=== PATIENT | female | born 1940 | race Caucasian/White ===

== ENCOUNTER 2018-02-14 16:04 | Inpatient (IN) | payer MEDICARE, BC, SELFPAY ==
[2018-02-14] VITALS (9 sets, daily range): BP systolic 128–184; BP diastolic 66–95; PULSE 68–99; RESP 14–18; TEMP 36.9–37.1; O2SAT 92–97; BMI 33.8; BMI 32.9
--- NOTE | 2018-02-14 16:20 | NURSING ---
NO OLD EKGS
--- NOTE | 2018-02-14 16:24 | NURSING ---
NO LW OR POA
--- NOTE | 2018-02-14 16:25 | NURSING ---
NO OLD EKGS
--- NOTE | 2018-02-14 16:29 | RAD_ITS ---
STUDY: X-RAY CHEST REASON FOR EXAM: Female, 78 years old. Palpitation TECHNIQUE: Frontal and lateral views of the chest. COMPARISON: None. FINDINGS: Calcified gallstone. The lungs are clear and expanded. There is no demonstrated pleural abnormality. Normal size heart. Normal mediastinum and cookie. Normal visualized pulmonary arteries. Normal visualized aortic arch and descending thoracic aorta. Normal visualized thoracic spine. Normal visualized ribs, clavicles, and shoulders. There is no demonstrated abnormality of the visualized soft tissue structures of the upper abdomen. IMPRESSION: Probable gallstones otherwise Normal x-ray examination of the chest. Electronically Signed: Pramod Beal MD at 17:54 EDT , Service support , RAD/Chest PA and Lateral
--- NOTE | 2018-02-14 16:29 | EKG12_ITS ---
Test Reason : PALPS Blood Pressure : / mmHG Vent. Rate : 101 BPM Atrial Rate : 113 BPM P-R Int : 000 ms QRS Dur : 158 ms QT Int : 358 ms P-R-T Axes : 000 -45 137 degrees QTc Int : 464 ms Atrial fibrillation Left axis deviation Left bundle branch block Abnormal ECG Confirmed by AIDEN GERBER, MARITZA ([id number]), staff editor ALEXEI SINGER ([id number] on 02/17/2018 2:43:26 PM Referred By: ISA Confirmed By:MARITZA WOLFE MD
--- NOTE | 2018-02-14 16:34 | ED.DCSUM_ITS ---
- ER Visit Summary Date of Service: 02/14/18 Chief Complaint: Palpitations History of Present Illness: The patient is a 78 F reports a weird feeling in her chest today. She states it almost feels like an anxiety attack. She does not feel short of breath, lightheaded, or near syncope. Patient does follow with a contact center director in [place]. She states she was initially sent to him because of a low heart rate noted by her primary care physician. It was felt that this was secondary to incorrect thyroid medication dosing and after medication adjustment her heart rate improved. She denies any known history of arrhythmia. She does have a known left bundle branch block. She states her last stress test was 2 or 3 years ago when she has never had a heart cath. Physical Examination: Blood pressure is 184/95, temperature 98.8, heart rate 71 , respiratory rate 14, pulse ox 97% on room air. Patient sitting upright in bed no acute distress. She is alert and talkative. Head neck examination is unremarkable. Heart is irregular. Lung sounds are clear. Abdomen is soft nontender. Lower extremity examination reveals no significant edema. She has strong distal pulses. Test Results: EKG is A. fib with a left bundle branch block. There is no acute ST change. Rate is 101. Chest x-ray shows chronic changes with no acute findings. CBC is unremarkable. Chemistry studies significant for potassium of 3.4, BUN 42, creatinine 1.32. Troponin is 0.03. TSH is less than 0.01. Emergency Department Course and Treatment: Patient has been resting comfortably his had no further symptoms here. Her A. fib may certainly be caused by her hyperthyroid state. I discussed the case with Dr. Frye, on-call for cardiology. Because the patient had previously been seen for low heart rates down to 30 when she was assumed to be hypothyroid, he did recommend observation overnight so that of rate controlling agents need to be started she could do this in a controlled environment. She will be given a dose of Lovenox now. Her heart rate is currently in the 80s and 90s. Treatment Plan: [] Disposition: Admit Impression: 1. New onset A. fib 2. Hyperthyroid This note was generated with [employer] software. It may contain incorrect words, spelling, and punctuation that were not noted in review of the chart prior to signing ED Disposition - Plan for ED Patient: Chief Complaint: Palpitations
[2018-02-14] MEDS: 0.9% Normal Saline 1,000 ML 150 ML IV ×2 (16:38→23:02)
[2018-02-14 16:47] LABS: Absolute Lymphocyte Count 2.04 X10^3/ul (0.83-4.51); Absolute Neutrophil Count 4.6 X10^3/uL (2.0-7.7); Basophil# 0.01 X10^3/uL; Basophil% 0.1 % (0-1); Eosinophil# 0.09 X10^3/uL; Eosinophils% 1.2 % (0-5); Hemoglobin 12.6 g/dl (12.0-15.0); Lymphocyte # 2.04 X10^3/ul (4.0); Lymphocyte % 27.7 % (19-41); Mean Corp Hgb Conc 32.3 g/gl (32-36); Mean Corpuscular Hgb 30.8 pg (27.0-32.0); Mean Corpuscular Volume 95.4 fL (81-99); Mean Platelet Vol. 9.8 fl (6.2-12.0); Monocyte# 0.58 X10^3/uL; Monocyte% 7.9 % (0-10); Neutrophil # 4.62 X10^3/uL (2.7-7.7); Neutrophil % 62.8 % (47-70); Platelet Count 234 K/mm3 (150-450); RBC Distribution Width CV 13.6 % (11.6-14.6); Red Blood Count 4.09 M/mm3 (4.2-5.4); White Blood Count 7.4 K/mm3 (4.4-11.0)
[2018-02-14 16:54] LABS: POSITIVE COUNT NO; POSITIVE DIFFERENTIAL NO; POSITIVE MORPHOLOGY NO
[2018-02-14 17:04] LABS: Anion Gap 9 (5-15); BUN 42 mg/dL (7-18); BUN/Creat Ratio 31.8 RATIO (10-20); Calcium,Total 10.1 mg/dL (8.5-10.1); Chloride 106 mmol/L (98-107); Creatinine, Serum 1.32 mg/dL (0.55-1.02); EST Glomerular Filtration Rate 42 mL/min (>60); Est Glom Filt Rate - Afr Amer 50 mL/min (>60); Estimated Creatinine Clearance 28.23 ml/min; Glucose 102 mg/dL (74-106); Potassium 3.4 mmol/L (3.5-5.1); Sodium Level 142 mmol/L (136-145); Thyroid Stim Hormone (TSH) < 0.01 uIU/mL (0.358-3.74)
[2018-02-14] MEDS: Enoxaparin 80 MG/0.8 ML Syringe SC (19:19)
[2018-02-14] MEDS: Carvedilol 3.125 MG TABLET PO (23:01)
[2018-02-14] MEDS: hydrALAZINE 25 MG Tablet PO (23:01)
--- NOTE | 2018-02-14 23:32 | PCM.HP.STD ---
Problem List (1) New onset a-fib Status: Acute (2) Hyperthyroidism Status: Acute (3) HTN (hypertension) Status: Chronic History of Present Illness Date of Admission: 02/14/18 Chief Complaint: New onset afib The patient is a 78 year old female w/ h/o left bundle branch block, hypothyroid, and HTN admitted for new onset afib. She was evaluated several months ago for bradycardia by her PCP who referred her to cards. Cards increased her levothyroxine from 125mcg PO Qday to 150mcg PO Qday. She was re-evaluated by cards and at that time of that evaluation, her heart rate normalized. She has been taking the higher dose for the last few months and she noted for the first time this AM, she had palpitation. Nothing made her palpitation better or worse. Her palpitation was constant and it was not associated with any other symptoms. No chest pain. No diaphoresis. The palpitation was mild to moderate that it concerned her and she went to the ED for further workup. She had a stress test in the last 2-3 years but never a heart cath. Past Medical History Past Medical History (Chronic Problems): Chronic Problems HTN (hypertension) (Chronic) Allergies benazepril [From Lotensin] Allergy (Verified 02/14/18 16:08) Unknown meperidine [From Demerol] Allergy (Verified 02/14/18 16:08) Unknown propoxyphene [From Darvon] Allergy (Verified 02/14/18 16:08) Unknown spironolactone Allergy (Verified 02/14/18 16:08) Unknown PCN Allergy (Uncoded 02/14/18 16:08) Hives Home Medications: Ambulatory Orders Medication Instructions Recorded Amlodipine [Norvasc] 10 mg PO DAILY 02/14/18 Calcitriol [Rocaltrol] 0.25 mcg PO DAILY 02/14/18 Cholecalciferol (Vitamin D3) 2,000 unit PO DAILY 02/14/18 [Vitamin D3] Furosemide 40 mg PO BID 02/14/18 Glimepiride 1 mg PO DAILY 02/14/18 Levothyroxine [Synthroid] 150 mcg PO DAILY 02/14/18 Pravastatin [Pravachol] 20 mg PO DAILY 02/14/18 hydrALAZINE [Apresoline] 25 mg PO TID 02/14/18 Surgical History: no surgical history Psychiatric History: No pertinent psych hx 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 Denies: Chest Pain Respiratory: Denies: Cough, Shortness of breath at rest, Sputum production Gastrointestinal: Denies: Abdominal Pain, Nausea, Vomiting Genitourinary: Denies: Dysuria Musculoskeletal: Denies: Joint Pain, Joint Tenderness Skin: Denies: Rash, Wounds Neurological: Denies: Numbness, Tingling, Focal weakness Psychiatric: Denies: Anxiety, Depression, Homicidal Ideations, Suicidal Ideations Hematologic/ Lymphatic: Denies: Easy Bruising, Easy Bleeding VTE Information - Inpt Only VTE Present on Admission: No VTE Mechan Device Prophylaxis: SCD's VTE Pharm Prophylaxis ordered?: Yes Patient Problems: Active and Suspected Problems New onset a-fib (Acute) Hyperthyroidism (Acute) - Physical Exam General: Alert, Oriented x3, Cooperative HEENT: Atraumatic, PERRLA, EOMI, Normocephalic Neck: Supple, No JVD, Negative Carotid Bruits Lungs: Clear to auscultation, Normal air movement Cardiovascular: No murmurs, Irregular Rate Abdomen: Bowel Sounds Present, Soft, Non Tender Extremities: No edema, Capillary Refill Less than 3 Seconds Skin: No rashes, No breakdown Musculoskeletal: No Tenderness to Palpation of Joints or Extremities Neurological: Cranial nerves II-XII grossly intact Psych/Mental Status: Normal Affect, Appropriate Vital Signs Temp Pulse Resp BP Pulse Ox 98.4 F 72 16 143/73 H 94 02/14/18 21:43 02/14/18 23:01 02/14/18 21:43 02/14/18 23:01 02/14/18 21:43 Oxygen Delivery Method Room Air Weight: 81.7 kg Body Mass Index (BMI) 32.9 Laboratory Tests Past 24 Hrs 02/14/18 22:10 Troponin I 0.059 H Assessment/Plan Active and Suspected Problems New onset a-fib (Acute) Hyperthyroidism (Acute) 78 year old female w/ h/o left bundle branch block, hypothyroid, and HTN admitted for new onset afib. 1) New-onset afib: Probably secondary to hyperthyroid. Will target rate < 110. Cautious with rate controlling drugs given h/o bradycardia. Will start low dose coreg. Hydration. Will get serial trops and ECHO in AM. Anticoagulate with lovenox. Consulted cards. Discussed with cards. Monitor. 2) Hyperthyroid: Probably secondary to levothyroxine. Will hold dose. Monitor. 3) HTN: Resume home meds. Monitor. 4) CKD III: Unclear baseline Cr. Hydration. Supportive care. 5) Prophylaxis: Lovenox.
[2018-02-15] VITALS (14 sets, daily range): BP systolic 123–158; BP diastolic 65–82; PULSE 45–86; RESP 15–16; TEMP 36.4–36.8; O2SAT 94–98
[2018-02-15 04:57] LABS: BNP,B-Type NATRIURETIC PEPTIDE 440.7 pg/mL (0-100)
[2018-02-15 05:10] LABS: ALB/GLOB Ratio 0.9 RATIO (0.9-2.4); AST(SGOT) 21 U/L (15-37); Alanine Aminotransfer ALT/SGPT 24 U/L (13-56); Albumin, Serum 2.9 g/dL (3.2-5.0); Alkaline Phosphatase 60 U/L (45-117); Anion Gap 8 (5-15); BUN 32 mg/dL (7-18); Calcium,Total 8.6 mg/dL (8.5-10.1); Chloride 113 mmol/L (98-107); Cholesterol 118 mg/dL (200); EST Glomerular Filtration Rate 57 mL/min (>60); Est Glom Filt Rate - Afr Amer 69 mL/min (>60); Estimated Creatinine Clearance 37.26 ml/min; Globulin 3.3 g/dL (2.2-4.2); Glucose 133 mg/dL (74-106); High Density Lipoprotein 49 mg/dL; Potassium 3.3 mmol/L (3.5-5.1); Protein, Total 6.2 g/dL (6.4-8.2); Sodium Level 147 mmol/L (136-145); Thyroid Stim Hormone (TSH) < 0.01 uIU/mL (0.358-3.74); Triglycerides 74 mg/dL; Very Low Density Lipoprotein 15 mg/dL (5-40)
--- NOTE | 2018-02-15 05:10 | RAD_ITS ---
STUDY: X-RAY CHEST REASON FOR EXAM: Female, 78 years old. Shortness of breath TECHNIQUE: Frontal and lateral views of the chest. COMPARISON: February 14, 2018 FINDINGS: The lungs are clear and expanded. There is no demonstrated pleural abnormality. Normal size heart. Normal mediastinum and cookie. Normal visualized pulmonary arteries. Normal visualized aortic arch and descending thoracic aorta. Normal visualized thoracic spine. Normal visualized ribs, clavicles, and shoulders. There is no demonstrated abnormality of the visualized soft tissue structures of the upper abdomen. RAD/Chest PA and Lateral IMPRESSION: Normal x-ray examination of the chest. Electronically Signed: Pramod Beal MD at 23:56 EDT , Service support ,
[2018-02-15] MEDS: hydrALAZINE 25 MG Tablet PO ×3 (05:25→21:07)
[2018-02-15] MEDS: 0.9% Normal Saline 1,000 ML 150 ML IV (05:27)
--- NOTE | 2018-02-15 05:55 | ECHOD_ITS ---
Reason For Study: Afib Procedure This was a 2D Doppler, Color Flow transthoracic echocardiogram. The exam was of fair technical quality due to diminished acoustic windows. The study was technically difficult. Exam performed portable in patient room. Left Ventricle Normal LV size. Left ventricular systolic function is normal. The estimated ejection fraction is 65 %. There is evidence of diastolic dysfunction. No regional wall motion abnormalities noted. Right Ventricle Normal RV size. Normal systolic function. Atria The left atrium is mildly enlarged. Normal right atrium. No doppler evidence for ASD. Mitral Valve There is no mitral annular calcification. Mild diffuse mitral valve thickening. Mild (1+) mitral valve insufficiency. Tricuspid Valve Normal tricuspid valve. Mild tricuspid valve insufficiency. Unable to estimate RV systolic pressure/pulmonary artery pressure due to technically difficult study. Aortic Valve Trisinus/trileaflet aortic valve. Moderate focal aortic valve calcification. Mild aortic stenosis. Pulmonic Valve The pulmonic valve is not well visualized. Great Vessels Normal sized aortic root. Pericardium/Pleural No pericardial effusion. MMode/2D Measurements & Calculations LVIDd: 3.8 cm IVSd: 1.6 cm LVOT diam: 2.0 cm LVIDs: 2.5 cm LVPWd: 1.3 cm LVOT area: 3.1 cm2 RVDd: 3.6 cm FS: 34.6 % Ao root diam: 2.8 cm LAV(MOD-bp): 88.6 ml LA A4 area: 27.6 cm2 LA dimension: 4.5 cm LAV(MOD-bp) Indexed: 48.6 ml/m2 LAV(MOD-sp2): 76.0 ml LAV(MOD-sp4): 100.3 ml RA A4 area: 11.7 cm2 Time Measurements MV dec time: 0.34 sec Doppler Measurements & Calculations MV E max jose: 99.7 cm/sec Lat Peak E' Jose: 8.4 cm/sec Med Peak E' Jose: 4.9 cm/sec MV A max jose: 130.3 cm/sec E/E' lat: 11.9 E/E' med: 20.3 MV E/A: 0.77 MV V2 max: 161.3 cm/sec MV P1/2t max jose: 115.4 cm/sec Ao V2 max: 243.2 cm/sec MV max P.4 mmHg MV P1/2t: 111.0 msec Ao max P.7 mmHg MV V2 mean: 84.2 cm/sec MV dec slope: 304.5 cm/sec2 Ao V2 mean: 158.3 cm/sec MV mean P.4 mmHg MVA(P1/2t): 2.0 cm2 Ao mean P.3 mmHg MV V2 VTI: 48.0 cm Ao V2 VTI: 51.3 cm MVA(VTI): 2.1 cm2 STEVE(I,D): 2.0 cm2 STEVE(V,D): 1.7 cm2 LV V1 max: 136.5 cm/sec SV(LVOT): 100.1 ml PA V2 max: 117.7 cm/sec LV V1 max P.5 mmHg LV V1 mean P.7 mmHg LV V1 mean: 90.0 cm/sec LV V1 VTI: 32.5 cm Interpretation Summary The study was technically difficult. Left ventricular systolic function is normal. The estimated ejection fraction is 65 %. The left atrium is mildly enlarged. Mild diffuse mitral valve thickening. Mild (1+) mitral valve insufficiency. Mild tricuspid valve insufficiency. Mild aortic stenosis. Unable to estimate RV systolic pressure/pulmonary artery pressure due to technically difficult study. There is evidence of diastolic dysfunction. Ordering Physician: Homar Read Performed By: Twan Mccall RCS
[2018-02-15] MEDS: amLODIPine 10 MG Tablet PO (10:07)
[2018-02-15] MEDS: Carvedilol 3.125 MG TABLET PO ×2 (10:07→21:07)
[2018-02-15] MEDS: Aspirin 81 MG TAB.CHEW PO (10:46)
[2018-02-15] MEDS: Glimepiride 1 MG Tablet PO (10:47)
[2018-02-15] MEDS: Calcitriol 0.25 MCG Capsule PO (10:47)
[2018-02-15] MEDS: Enoxaparin 80 MG/0.8 ML Syringe SC ×2 (10:47→21:07)
[2018-02-15 11:11] LABS: Free T3 2.3 pg/mL (2.18-3.98); T4 Free Direct 1.55 ng/dL (0.76-1.46)
--- NOTE | 2018-02-15 12:37 | EKG12_ITS ---
Test Reason : RHYTHM Blood Pressure : / mmHG Vent. Rate : 047 BPM Atrial Rate : 047 BPM P-R Int : 164 ms QRS Dur : 170 ms QT Int : 488 ms P-R-T Axes : 008 -29 137 degrees QTc Int : 431 ms Sinus bradycardia with Premature supraventricular complexes Left bundle branch block Abnormal ECG When compared with ECG of 14-FEB-2018 16:19, MANUAL COMPARISON REQUIRED, DATA IS UNCONFIRMED Confirmed by COLE GERBER, DIPESH ([id number]), editorial manager ALEXEI SINGER ([id number]) on 02/17/2018 3:22:37 PM Referred By: GABRIELLA Confirmed By:DIPESH GALVAN MD
--- NOTE | 2018-02-15 13:27 | PCM.CONS.C ---
Problem List (1) Abnormal cardiac enzyme level Status: Acute (2) New onset a-fib Status: Acute (3) Cardiac murmur Status: Acute (4) Carotid bruit Status: Acute (5) HTN (hypertension) Status: Chronic Qualifiers: Hypertension type: essential hypertension Qualified Code(s): I10 - Essential (primary) hypertension (6) Hyperthyroidism Status: Acute (7) HLD (hyperlipidemia) Status: Chronic Qualifiers: Hyperlipidemia type: unspecified Qualified Code(s): E78.5 - Hyperlipidemia, unspecified (8) Hyperglycemia Status: Chronic Reason for Consult Date of Consultation: 02/15/18 History of Present Illness: The patient is a 78 year old white female with a past cardiovascular history which is included concerns of hypertension and hyperlipidemia superimposed upon a noncardiovascular history of diabetes mellitus and thyroid disorder who is being referred for evaluation of a history of underlying bradycardia with left bundle branch block and now atrial fibrillation with left bundle branch block and abnormal cardiac enzymes. She states that approximately 3 months ago she was being evaluated and noted to have evidence of underlying bradycardia superimposed upon a history of a left bundle branch block. She states she was evaluated by cardiology in [place], [place]. She believes that the etiology was thought to be related to hypothyroidism at the time. Her thyroid medications were adjusted/increased. She was due to have a future outpatient follow-up. In the interim she presented to [facility] for concerns of chest discomfort, dyspnea, and palpitations. She was found to have atrial fibrillation with her left bundle branch block pattern. She was subsequently placed in the PCU for further evaluation and care. She was treated with low-dose beta-ricarda therapy and anticoagulant therapy. She underwent cardiac enzymes which demonstrated abnormal troponin I levels. She was eventually noted to have spontaneous conversion to sinus rhythm/sinus bradycardia with her left bundle branch block pattern. She has denied orthopnea, PND, and peripheral pitting edema. There has been no near syncope or syncope. She states that she has undergone noninvasive cardiovascular evaluation in the past based upon concerns of the aforementioned findings and a cardiac murmur. She believes her noninvasive studies including chemical stress test were negative. She has never undergone diagnostic cardiac catheterization. This hospitalization her TSH level was obtained and repeated. Both levels were low. [] Past Medical History Allergies/Adverse Reactions: Allergies benazepril [From Lotensin] Allergy (Verified 02/14/18 16:08) Unknown meperidine [From Demerol] Allergy (Verified 02/14/18 16:08) Unknown propoxyphene [From Darvon] Allergy (Verified 02/14/18 16:08) Unknown spironolactone Allergy (Verified 02/14/18 16:08) Unknown PCN Allergy (Uncoded 02/14/18 16:08) Hives Home Medications: Ambulatory Orders Medication Instructions Recorded Amlodipine [Norvasc] 10 mg PO DAILY 02/14/18 Calcitriol [Rocaltrol] 0.25 mcg PO DAILY 02/14/18 Cholecalciferol (Vitamin D3) 2,000 unit PO DAILY 02/14/18 [Vitamin D3] Furosemide 40 mg PO BID 02/14/18 Glimepiride 1 mg PO DAILY 02/14/18 Levothyroxine [Synthroid] 150 mcg PO DAILY 02/14/18 Pravastatin [Pravachol] 20 mg PO DAILY 02/14/18 hydrALAZINE [Apresoline] 25 mg PO TID 02/14/18 Past Medical History (Chronic Problems): Chronic Problems HTN (hypertension) (Chronic) HLD (hyperlipidemia) (Chronic) Hyperglycemia (Chronic) Surgical History: no surgical history Psychiatric History: No 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 Denies: Orthopnea, PND, Peripheral Edema, Lightheadedness, Dizziness, Near Syncope, Syncope Respiratory: Denies: Cough, Sputum Production, Hemoptysis Gastrointestinal: Denies: Hematemesis, Hematochezia, Melena Genitourinary: Denies: Dysuria, Hematuria Skin: Denies: Rash Subjectve: This is a 78-year-old white female who appears to be resting comfortably at the moment in no acute distress. Objective: Vital Signs Temp Pulse Resp BP Pulse Ox 98.0 F 47 L 16 158/70 H 97 02/15/18 12:30 02/15/18 12:30 02/15/18 12:30 02/15/18 12:30 02/15/18 12:30 Oxygen Delivery Method Room Air Weight: 180 lb 1.883 oz Body Mass Index (BMI) 32.9 Intake and Output for Last 24 Hours 02/13/18 02/14/18 02/15/18 23:59 23:59 23:59 Intake Total 2201 Balance 2201 General: Awake, Alert, Oriented x 3, Cooperative, No Acute Distress HEENT: Atraumatic, Normocephalic, PERRL, Sclera Non Icteric Oral: Moist Mucosa Neck: Supple, Good ROM, No JVD Lungs: Clear to auscultation Cardiovascular: Regular Rhythm, Normal S1, Normal S2 Murmur Murmur: Grade 3/6, Harsh, Mid Systolic, LLSB, LVOT, Sternal Notch Vascular: [place] Carotid Artery Bruits Abdomen: Bowel Sounds Present, Soft, Non Tender Extremities: No Cyanosis, No Clubbing, No edema Neurological: No Focal Motor or Sensory Deficit 02/14/18 22:10: Troponin I 0.059 H 02/15/18 01:06: Troponin I 0.067 H 02/15/18 03:50: B-Natriuretic Peptide 440.7 H 02/15/18 03:50: Sodium 147 H, Potassium 3.3 L, Chloride 113 H, Carbon Dioxide 26.0, Anion Gap 8, BUN 32 H, Creatinine 1.00, Est GFR (MDRD) Af Amer 69, Est GFR (MDRD) Non-Af 57 L, BUN/Creatinine Ratio 32.0 H, Glucose 133 H, Calcium 8.6, Total Bilirubin 0.40, Triglycerides 74, Cholesterol 118, LDL Cholesterol 54, VLDL Cholesterol 15, HDL Cholesterol 49 02/15/18 03:50: Troponin I 0.059 H Rhythm: Atrial fibrillation with subsequent conversion to sinus rhythm EKG: Atrial fibrillation with a left bundle branch block pattern subsequent conversion to sinus rhythm with a left bundle branch block pattern CXR: Preliminary evaluation: No acute cardiopulmonary disease process appreciated: Please see official report Assessment/Plan 1. Abnormal cardiac enzymes The patient does have abnormal cardiac enzymes concerning for underlying CAD with myocardial ischemia and a possible non-ST segment elevation MT. The patient is being monitored. She is being treated medically as deemed appropriate and tolerated. Based upon the patient's cardiovascular risk factors, her objective findings, etc. was felt the patient should be considered for further evaluation with diagnostic cardiac catheterization. The procedure and risks were discussed with the patient and she was agreeable to this. 2. Paroxysmal atrial fibrillation The patient has a history of underlying sinus bradycardia without rate limiting medications. She was noted to have atrial fibrillation with a somewhat elevated but not necessarily high ventricular heart rate. This is superimposed upon her findings of underlying left bundle branch block. It does raise concern of underlying conduction system related issues. It does raise concern of a possible underlying sick sinus syndrome/bradycardia tachycardia syndrome. At the present time the patient is back in sinus rhythm. She is on low-dose beta-ricarda therapy with her heart rate being monitored. She has been on temporary anticoagulant therapy. The patient will undergo further evaluation of her cardiovascular status based upon her risk factors, objective findings, etc., with diagnostic cardiac catheterization as noted above. The patient will also need consideration for future follow-up of her cardiac rate and rhythm noting her concerns of bradycardia and paroxysmal atrial fibrillation with a somewhat elevated heart rate being concerning for an underlying sinus syndrome/bradycardia tacky syndrome for the need for medical therapy and possible future permanent pacemaker support. 3. Cardiac murmur The patient does have a cardiac murmur. She is unclear as to the evaluation. Thus it is reasonable that she undergo further evaluation with a transthoracic echocardiogram. 4. Carotid artery bruits The patient does have bilateral bruits. She should be considered for carotid artery duplex study. If this is unremarkable then perhaps her findings are related to extension of her cardiac murmur. 5. Hypertension The patient will need to be considered for nonrate limiting medical therapy to treat her hypertension. 6. Thyroid disorder The patient does have an underlying thyroid disorder. She has been evaluated by endocrinology in the past. She should be considered for future endocrinology evaluation as well to assist in adjusting her thyroid condition/medications her thyroid may be interacting with her cardiovascular findings. 7. Hyperlipidemia The patient will continue lipid-lowering therapy. 8. Hyperglycemia She will need to continue evaluation care per internal medicine. Comment: The above was discussed with the patient, her son, and Dr. Isirdo. This note was generated with [employer] software. It may contain incorrect words, spelling, and punctuation that were not noted in checking the note before signing.
--- NOTE | 2018-02-15 13:41 | CON.PCM_ITS ---
Problem List (1) Abnormal cardiac enzyme level Status: Acute (2) New onset a-fib Status: Acute (3) Cardiac murmur Status: Acute (4) Carotid bruit Status: Acute (5) HTN (hypertension) Status: Chronic Qualifiers: Hypertension type: essential hypertension Qualified Code(s): I10 - Essential (primary) hypertension (6) Hyperthyroidism Status: Acute (7) HLD (hyperlipidemia) Status: Chronic Qualifiers: Hyperlipidemia type: unspecified Qualified Code(s): E78.5 - Hyperlipidemia , unspecified (8) Hyperglycemia Status: Chronic Reason for Consult Date of Consultation: 02/15/18 History of Present Illness: The patient is a 78 year old white female with a past cardiovascular history which is included concerns of hypertension and hyperlipidemia superimposed upon a noncardiovascular history of diabetes mellitus and thyroid disorder who is being referred for evaluation of a history of underlying bradycardia with left bundle branch block and now atrial fibrillation with left bundle branch block and abnormal cardiac enzymes. She states that approximately 3 months ago she was being evaluated and noted to have evidence of underlying bradycardia superimposed upon a history of a left bundle branch block. She states she was evaluated by cardiology in [place], [place]. She believes that the etiology was thought to be related to hypothyroidism at the time. Her thyroid medications were adjusted/increased. She was due to have a future outpatient follow-up. In the interim she presented to [facility] for concerns of chest discomfort, dyspnea, and palpitations. She was found to have atrial fibrillation with her left bundle branch block pattern. She was subsequently placed in the PCU for further evaluation and care. She was treated with low- dose beta-ricarda therapy and anticoagulant therapy. She underwent cardiac enzymes which demonstrated abnormal troponin I levels. She was eventually noted to have spontaneous conversion to sinus rhythm/sinus bradycardia with her left bundle branch block pattern. She has denied orthopnea, PND, and peripheral pitting edema. There has been no near syncope or syncope. She states that she has undergone noninvasive cardiovascular evaluation in the past based upon concerns of the aforementioned findings and a cardiac murmur. She believes her noninvasive studies including chemical stress test were negative. She has never undergone diagnostic cardiac catheterization. This hospitalization her TSH level was obtained and repeated. Both levels were low. [] Past Medical History Allergies/Adverse Reactions: Allergies benazepril [From Lotensin] Allergy (Verified 02/14/18 16:08) Unknown meperidine [From Demerol] Allergy (Verified 02/14/18 16:08) Unknown propoxyphene [From Darvon] Allergy (Verified 02/14/18 16:08) Unknown spironolactone Allergy (Verified 02/14/18 16:08) Unknown PCN Allergy (Uncoded 02/14/18 16:08) Hives Home Medications: Ambulatory Orders Medication Instructions Recorded Amlodipine [Norvasc] 10 mg PO DAILY 02/14/18 Calcitriol [Rocaltrol] 0.25 mcg PO DAILY 02/14/18 Cholecalciferol (Vitamin D3) 2,000 unit PO DAILY 02/14/18 [Vitamin D3] Furosemide 40 mg PO BID 02/14/18 Glimepiride 1 mg PO DAILY 02/14/18 Levothyroxine [Synthroid] 150 mcg PO DAILY 02/14/18 Pravastatin [Pravachol] 20 mg PO DAILY 02/14/18 hydrALAZINE [Apresoline] 25 mg PO TID 02/14/18 Past Medical History (Chronic Problems): Chronic Problems HTN (hypertension) (Chronic) HLD (hyperlipidemia) (Chronic) Hyperglycemia (Chronic) Surgical History: no surgical history Psychiatric History: No pertinent psych hx 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 Denies: Orthopnea, PND, Peripheral Edema, Lightheadedness, Dizziness, Near Syncope, Syncope Respiratory: Denies: Cough, Sputum Production, Hemoptysis Gastrointestinal: Denies: Hematemesis, Hematochezia, Melena Genitourinary: Denies: Dysuria, Hematuria Skin: Denies: Rash Subjectve: This is a 78-year-old white female who appears to be resting comfortably at the moment in no acute distress. Objective: Vital Signs Temp Pulse Resp BP Pulse Ox 98.0 F 47 L 16 158/70 H 97 02/15/18 12:30 02/15/18 12:30 02/15/18 12:30 02/15/18 12:30 02/15/18 12:30 Oxygen Delivery Method Room Air Weight: 180 lb 1.883 oz Body Mass Index (BMI) 32.9 Intake and Output for Last 24 Hours 02/13/18 02/14/18 02/15/18 23:59 23:59 23:59 Intake Total 2201 Balance 2201 General: Awake, Alert, Oriented x 3, Cooperative, No Acute Distress HEENT: Atraumatic, Normocephalic, PERRL, Sclera Non Icteric Oral: Moist Mucosa Neck: Supple, Good ROM, No JVD Lungs: Clear to auscultation Cardiovascular: Regular Rhythm, Normal S1, Normal S2 Murmur Murmur: Grade 3/6, Harsh, Mid Systolic, LLSB, LVOT, Sternal Notch Vascular: [place] Carotid Artery Bruits Abdomen: Bowel Sounds Present, Soft, Non Tender Extremities: No Cyanosis, No Clubbing, No edema Neurological: No Focal Motor or Sensory Deficit 02/14/18 22:10: Troponin I 0.059 H 02/15/18 01:06: Troponin I 0.067 H 02/15/18 03:50: B-Natriuretic Peptide 440.7 H 02/15/18 03:50: Sodium 147 H, Potassium 3.3 L, Chloride 113 H, Carbon Dioxide 26.0, Anion Gap 8, BUN 32 H, Creatinine 1.00, Est GFR (MDRD) Af Amer 69, Est GFR (MDRD) Non-Af 57 L, BUN/Creatinine Ratio 32.0 H, Glucose 133 H, Calcium 8.6 , Total Bilirubin 0.40, Triglycerides 74, Cholesterol 118, LDL Cholesterol 54, VLDL Cholesterol 15, HDL Cholesterol 49 02/15/18 03:50: Troponin I 0.059 H Rhythm: Atrial fibrillation with subsequent conversion to sinus rhythm EKG: Atrial fibrillation with a left bundle branch block pattern subsequent conversion to sinus rhythm with a left bundle branch block pattern CXR: Preliminary evaluation: No acute cardiopulmonary disease process appreciated: Please see official report Assessment/Plan 1. Abnormal cardiac enzymes The patient does have abnormal cardiac enzymes concerning for underlying CAD with myocardial ischemia and a possible non-ST segment elevation [place]. The patient is being monitored. She is being treated medically as deemed appropriate and tolerated. Based upon the patient's cardiovascular risk factors, her objective findings, etc. was felt the patient should be considered for further evaluation with diagnostic cardiac catheterization. The procedure and risks were discussed with the patient and she was agreeable to this. 2. Paroxysmal atrial fibrillation The patient has a history of underlying sinus bradycardia without rate limiting medications. She was noted to have atrial fibrillation with a somewhat elevated but not necessarily high ventricular heart rate. This is superimposed upon her findings of underlying left bundle branch block. It does raise concern of underlying conduction system related issues. It does raise concern of a possible underlying sick sinus syndrome/bradycardia tachycardia syndrome. At the present time the patient is back in sinus rhythm. She is on low-dose beta-ricarda therapy with her heart rate being monitored. She has been on temporary anticoagulant therapy. The patient will undergo further evaluation of her cardiovascular status based upon her risk factors, objective findings, etc., with diagnostic cardiac catheterization as noted above. The patient will also need consideration for future follow-up of her cardiac rate and rhythm noting her concerns of bradycardia and paroxysmal atrial fibrillation with a somewhat elevated heart rate being concerning for an underlying sinus syndrome/bradycardia tacky syndrome for the need for medical therapy and possible future permanent pacemaker support. 3. Cardiac murmur The patient does have a cardiac murmur. She is unclear as to the evaluation. Thus it is reasonable that she undergo further evaluation with a transthoracic echocardiogram. 4. Carotid artery bruits The patient does have bilateral bruits. She should be considered for carotid artery duplex study. If this is unremarkable then perhaps her findings are related to extension of her cardiac murmur. 5. Hypertension The patient will need to be considered for nonrate limiting medical therapy to treat her hypertension. 6. Thyroid disorder The patient does have an underlying thyroid disorder. She has been evaluated by endocrinology in the past. She should be considered for future endocrinology evaluation as well to assist in adjusting her thyroid condition/ medications her thyroid may be interacting with her cardiovascular findings. 7. Hyperlipidemia The patient will continue lipid-lowering therapy. 8. Hyperglycemia She will need to continue evaluation care per internal medicine. Comment: The above was discussed with the patient, her son, and Dr. Isidro. This note was generated with [employer] software. It may contain incorrect words, spelling, and punctuation that were not noted in checking the note before signing.
--- NOTE | 2018-02-15 16:47 | PCM.PROGNOTE ---
Patient Problems: Active and Suspected Problems New onset a-fib (Acute) Hyperthyroidism (Acute) Abnormal cardiac enzyme level (Acute) Cardiac murmur (Acute) Carotid bruit (Acute) Subjective: Patient was seen and examined today, her troponins have remained in the intermediate range, patient has no complaints of any chest pain or shortness of breath. At the time of my examination, she remains in atrial fib with a rate between 65 and 70 - Physical Exam General: Alert, Oriented x3, Cooperative, No apparent distress, Well developed, Well nourished HEENT: Atraumatic, PERRLA, EOMI, Normocephalic Oral: Moist Mucosa Neck: Supple, No JVD, No Nuchal Rigidity, Trachea Midline, Thyroid Normal Size and Texture Lungs: Clear to auscultation, Normal air movement, No rhonchi, No wheeze, No rales Cardiovascular: PMI Normal, Irregular Rate, No rub noted, No Gallop Abdomen: Bowel Sounds Present, Soft, Non Tender, Non-Distended Extremities: No clubbing, No cyanosis, No edema, Capillary Refill Less than 3 Seconds Skin: No rashes, No breakdown Musculoskeletal: No Tenderness to Palpation of Joints or Extremities Neurological: Cranial nerves II-XII grossly intact, Neuro grossly intact, Muscle tone normal, Sensory exam intact to light touch and pain Psych/Mental Status: Normal Affect, Appropriate, Alert and oriented to time, place, person, mood and affect Vital Signs Temp Pulse Resp BP Pulse Ox 98.0 F 50 L 16 138/68 H 98 02/15/18 15:00 02/15/18 15:00 02/15/18 15:00 02/15/18 15:00 02/15/18 15:00 Oxygen Delivery Method Room Air Weight: 81.7 kg Body Mass Index (BMI) 32.9 Intake and Output for Last 24 Hours 02/13/18 02/14/18 02/15/18 23:59 23:59 23:59 Intake Total 2201 Balance 2201 Laboratory Tests Past 24 Hrs 02/14/18 02/15/18 02/15/18 22:10 01:06 03:50 Sodium Potassium Chloride Carbon Dioxide Anion Gap BUN Creatinine Estim Creat Clear Calc Est GFR (MDRD) Af Amer Est GFR (MDRD) Non-Af BUN/Creatinine Ratio Glucose Calcium Total Bilirubin AST ALT Alkaline Phosphatase Troponin I 0.059 H 0.067 H B-Natriuretic Peptide 440.7 H Total Protein Albumin Globulin Albumin/Globulin Ratio Triglycerides Cholesterol LDL Cholesterol VLDL Cholesterol HDL Cholesterol TSH Free T4 Free T3 pg/dL 02/15/18 02/15/18 02/15/18 03:50 03:50 03:50 Sodium 147 H Potassium 3.3 L Chloride 113 H Carbon Dioxide 26.0 Anion Gap 8 BUN 32 H Creatinine 1.00 Estim Creat Clear Calc 37.26 Est GFR (MDRD) Af Amer 69 Est GFR (MDRD) Non-Af 57 L BUN/Creatinine Ratio 32.0 H Glucose 133 H Calcium 8.6 Total Bilirubin 0.40 AST 21 ALT 24 Alkaline Phosphatase 60 Troponin I 0.059 H B-Natriuretic Peptide Total Protein 6.2 L Albumin 2.9 L Globulin 3.3 Albumin/Globulin Ratio 0.9 Triglycerides 74 Cholesterol 118 LDL Cholesterol 54 VLDL Cholesterol 15 HDL Cholesterol 49 TSH < 0.01 L Free T4 1.55 H Free T3 pg/dL 2.3 Medical Necessity - Tobacco Use Smoking Status: Never smoker Assessment/Plan Active and Suspected Problems New onset a-fib (Acute) Hyperthyroidism (Acute) Abnormal cardiac enzyme level (Acute) Cardiac murmur (Acute) Carotid bruit (Acute) #1 [id number] secondary to demand ischemia, patient will undergo cardiac catheterization tomorrow per cardiology #2 new onset atrial fibrillation-currently under control with beta-ricarda therapy-cardiology is participating in her care #3 hypothyroidism secondary to thyroidectomy for thyroid cancer-patient's thyroid dosage was increased recently, I will obtain a T3 and T4 on the patient today, her TSH is low indicating she may be taking too much thyroid. #4 Hypokalemia-patient was given oral potassium #5 elevated BUN-possibly secondary to dehydration, fluids will be administered #6 hypertension Code Visit Inpatient E&M: 48499 Subs Hosp L2
[2018-02-15] MEDS: 0.9% Normal Saline 1,000 ML 75 ML IV (18:00)
[2018-02-15] MEDS: Pravastatin 20 MG Tablet PO (21:07)
[2018-02-15] MEDS: TICAGRELOR 90 MG TABLET PO (21:07)
[2018-02-15] MEDS: predniSONE 20 MG Tablet 60 MG PO (21:08)
[2018-02-15] MEDS: Famotidine 20 MG Tablet PO (21:10)
[2018-02-15] MEDS: DiphenhydrAMINE 25 MG Capsule 50 MG PO (23:26)
[2018-02-16] VITALS (17 sets, daily range): BP systolic 147–181; BP diastolic 63–117; PULSE 54–74; RESP 16–20; TEMP 36.6–36.7; O2SAT 93–97
[2018-02-16 03:28] LABS: Color, Urine Yellow (Yellow); Glucose, Dipstick Normal (Normal); Ketone-Dipstick Negative (Negative); Leukocyte Esterase-Dipstick Negative /ul (Negative); Nitrite-Dipstick Negative (Negative); Occult Blood-Urine Negative /ul (Negative); Protein-Dipstick 15 mg/dl (Negative); Specific Gravity, Urine 1.015 (1.002-1.030); Urine Bilirubin Dipstick Negative (Negative); Urine Clarity Sl. Cloudy (Clear); Urine Urobilinogen Normal (Normal)
[2018-02-16] MEDS: 0.9% Normal Saline 1,000 ML 75 ML IV ×2 (03:36→15:06)
[2018-02-16 05:52] LABS: Hematocrit 36.5 % (37-47); Hemoglobin 11.5 g/dl (12.0-15.0); Mean Corp Hgb Conc 31.5 g/gl (32-36); Mean Corpuscular Hgb 30.3 pg (27.0-32.0); Mean Corpuscular Volume 96.3 fL (81-99); Mean Platelet Vol. 9.8 fl (6.2-12.0); Platelet Count 208 K/mm3 (150-450); RBC Distribution Width CV 13.8 % (11.6-14.6); RBC Distribution Width SD 47.5 fl (35.1-43.9); Red Blood Count 3.79 M/mm3 (4.2-5.4); White Blood Count 6.6 K/mm3 (4.4-11.0)
--- NOTE | 2018-02-16 05:55 | EKG12_ITS ---
Test Reason : AM EKG Blood Pressure : / mmHG Vent. Rate : 058 BPM Atrial Rate : 058 BPM P-R Int : 182 ms QRS Dur : 174 ms QT Int : 502 ms P-R-T Axes : 036 -45 115 degrees QTc Int : 492 ms Sinus bradycardia with marked sinus arrhythmia Left axis deviation Left bundle branch block Abnormal ECG When compared with ECG of 15-FEB-2018 12:40, MANUAL COMPARISON REQUIRED, DATA IS UNCONFIRMED Confirmed by COLE GERBER, DIPESH ([id number]), staff editor ALEXEI SINGER ([id number]) on 02/17/2018 3:19:22 PM Referred By: CLAIR Confirmed By:DIPESH GALVAN MD
--- NOTE | 2018-02-16 05:55 | CDU_ITS ---
Reason For Study: bruit Rt. Velocities/BP Lt. Velocities/BP Prox CCA 70.9/11.1 cm/sec. Prox CCA 87.4/14.7 cm/sec. Mid CCA 65.7/16.4 cm/sec. Mid CCA 101/12.3 cm/sec. Dist CCA 68.0/15.2 cm/sec. Dist CCA 78.0/18.8 cm/sec. Prox ICA 61.6/15.8 cm/sec. Prox ICA 87.9/19.9 cm/sec. Mid ICA 80.3/21.7 cm/sec. Mid ICA 67.4/18.0 cm/sec. Dist ICA 86.8/23.5 cm/sec. Dist ICA 59.7/16.0 cm/sec. Rt. ICA/CCA = 1.3. Lt. ICA/CCA = .9. Prox ECA 73.3/8.79 cm/sec. Prox ECA 95.6/12.3 cm/sec. Rt. Vert. 47.5/12.3 cm/sec. Lt. Vert. 57.5/14.7 cm/sec. Right Extracranial There is heterogeneous, irregular atherosclerotic plaque noted in the right common carotid artery. There is heterogeneous, irregular atherosclerotic plaque noted in the right internal carotid artery. There is heterogeneous, irregular atherosclerotic plaque noted in the right external carotid artery. Antegrade flow is noted in the right vertebral artery. Left Extracranial There is heterogeneous, irregular atherosclerotic plaque noted in the left common carotid artery. There is heterogeneous, irregular atherosclerotic plaque noted in the left internal carotid artery. There is heterogeneous, irregular atherosclerotic plaque noted in the left external carotid artery. Antegrade flow is noted in the left vertebral artery. Procedure Carotid Duplex [id number]. The exam was diagnostic. Exam performed portable in patient room. Interpretation Summary Irregular calcific plague distal right common carotid and proximal right internal carotid with <50% stenosis. Normal flow right external carotid Irregular calcific plague at the proximal left internal carotid with <50% stenosis Normal flow left external carotid Patent and antegrade vertebrals bilaterally Ordering Physician: Brady Frye Performed By: Yemi Montalvo RVT
[2018-02-16 05:57] LABS: Prothrombin Time (Protime)PT. 13.5 SECONDS (11.7-14.9)
[2018-02-16 05:58] LABS: Partial Thromboplast Time 36.4 Seconds (24.1-36.2)
[2018-02-16] MEDS: hydrALAZINE 25 MG Tablet PO (05:58)
[2018-02-16] MEDS: TICAGRELOR 90 MG TABLET PO (05:58)
[2018-02-16] MEDS: amLODIPine 10 MG Tablet PO (05:58)
[2018-02-16] MEDS: Carvedilol 3.125 MG TABLET PO (05:58)
[2018-02-16 05:59] LABS: Anion Gap 8 (5-15); BUN 31 mg/dL (7-18); BUN/Creat Ratio 25.4 RATIO (10-20); Calcium,Total 9.2 mg/dL (8.5-10.1); Chloride 113 mmol/L (98-107); Creatinine, Serum 1.22 mg/dL (0.55-1.02); EST Glomerular Filtration Rate 45 mL/min (>60); Est Glom Filt Rate - Afr Amer 55 mL/min (>60); Estimated Creatinine Clearance 30.54 ml/min; Glucose 184 mg/dL (74-106); Sodium Level 145 mmol/L (136-145)
[2018-02-16] MEDS: Aspirin 81 MG TAB.CHEW PO (05:59)
[2018-02-16] MEDS: Famotidine 20 MG Tablet PO (05:59)
[2018-02-16] MEDS: predniSONE 20 MG Tablet 60 MG PO (05:59)
[2018-02-16] MEDS: DiphenhydrAMINE 25 MG Capsule 50 MG PO (05:59)
[2018-02-16 06:15] LABS: Scan Indicated on CBC? Y/N NO
--- NOTE | 2018-02-16 08:10 | CL.D_ITS ---
Patient Name: LYNETTE MANN Study Date: 02/16/2018 Performing: Brady Frye MD Ht: 62 inches 157 cm : 1940 Wt: 181 lbs 82 kg Age: 78 Gender: female BSA: 1.83 PROCEDURE(S) PERFORMED [id number]/LV CLINICAL PROFILE AND INDICATIONS Indications: Suspected CAD, Cardiac Arrythmia Heart Failure: None Stress/Imaging Stress/Image Study Performed: No Angina Classification Anginal Classification w/in 2 Weeks: CCS III CAD Presentations: Non-STEMI. CONCLUSIONS Elevated Left Ventricular End Diastolic Pressure Normal LV size, wall motion,and systolic function LVEF: by LV gram 60 % [place] Multivessel CAD (minimal luminal irregularities) Aortic Valve Calcification- Mild Mitral Valve Insufficiency Mild RECOMMENDATIONS Risk factor modification Medical therapy DESCRIPTION OF PROCEDURE The patient arrived to the procedure lab. The risks and benefits of the procedure as well as a full d escription of our services here and current unavailability of surgical backup were fully explained to the patient and/or their significant other prior to the catheterization. The Timeout was completed, verifying the correct patient and procedure. The patient's procedural site was prepped and draped in the usual fashion. Local anesthetic was given subcutaneously to right groin region with Lidocaine 2%. Using a modified Seldinger technique, arterial access was obtained via the right femoral artery, a 4 Fr sheath was inserted Left Coronary Artery selective angiography was performed in multiple views us ing a 4 Fr. JL5 catheter. Right Coronary Artery selective angiography was then performed in multiple views using a 4 Fr. 3DRC catheter. Left Ventriculography was performed in SHIPMAN projection using a 4 Fr . Pigtail catheter. LV to AO pullback pressures were then recorded.The arterial sheath was pulled and manual compression applied until hemostasis is achieved. CORONARY ANGIOGRAPHY DOMINANCE: Right Dominant LEFT HEART ASSESSMENT Left Ventricular Ejection Fraction: by LV Gram 60 % Normal LV wall motion Elevated Left Ventricular End Diastolic Pressure LVEDP: 29 mmHg LEFT MAIN: Angiographically normal LEFT ANTERIOR DECENDING ARTERY: PROX LAD: Mild calcification, Mild luminal irregularities MID LAD: Mild luminal irregularities CIRCUMFLEX ARTERY: PROX CIRC: Mild luminal irregularities MID CIRC: Mild luminal irregularities RIGHT CORONARY ARTERY: Mild luminal irregularities VALVE FINDINGS: Aortic Valve Calcification - mild Mitral Valve Insufficiency - Grade 1 AORTIC ROOT: Angiographically normal COMPLICATIONS No Complications PROCEDURE MEDICATIONS Versed 1 mg IV Oxygen: 2 L/min via nasal cannula Solu-medrol 125 mg IV 02/16/2018 07:37:30 SUMMARY OF HEMODYNAMIC DATA Time AIR REST ECG 07:24:30 AO 162/69 (107) SA 07:41:40 LV 176/6, 07:49:42 LV 176/5, 30 07:49:48 LV 176/6, 29 07:50:54 LVp 177/1, 07:51:06 AOp 173/68 (107) 07:51:11 Signed By Brady Frye MD On 02/16/2018 08:09:08 Brady Frye MD
--- NOTE | 2018-02-16 09:25 | PCM.PN.CARD ---
Subjectve: The patient is now status post diagnostic cardiac catheterization. The patient has no new acute symptoms nor did she have any obvious adverse cardiovascular events from her procedure. Objective: Vital Signs Temp Pulse Resp BP Pulse Ox 98.0 F 60 18 161/74 H 93 02/16/18 08:20 02/16/18 09:05 02/16/18 09:05 02/16/18 09:05 02/16/18 09:05 Oxygen Delivery Method Room Air Weight: 180 lb 1.883 oz Body Mass Index (BMI) 32.9 Intake and Output for Last 24 Hours 02/14/18 02/15/18 02/16/18 23:59 23:59 23:59 Intake Total 3448 / 3448 560 / 560 Balance 3448 / 3448 560 / 560 General: Awake, Alert, Oriented x 3, Cooperative, No Acute Distress HEENT: Atraumatic, Normocephalic, PERRL, EOMI, Sclera Non Icteric Oral: Moist Mucosa Neck: Supple, Good ROM, No JVD Lungs: Clear to auscultation Cardiovascular: Regular Rhythm, Normal S1, Normal S2 Murmur Murmur: Grade 3/6, Harsh, Mid Systolic, LLSB, LVOT, Sternal Notch Vascular: Normal Femoral Pulses Abdomen: Bowel Sounds Present, Soft, Non Tender Extremities: No Cyanosis, No Clubbing, No edema Neurological: No Focal Motor or Sensory Deficit Psych/Mental Status: Appropriate, Normal Affect 02/16/18 03:15: Urine Color Yellow, Urine Clarity Sl. Cloudy, Urine pH 6.0, Ur Specific [place] 1.015, Urine Protein 15 H, Urine Glucose (UA) Normal, Urine Ketones Negative, Urine Occult Blood Negative, Urine Nitrite Negative, Urine Bilirubin Negative, Urine Urobilinogen Normal, Ur Leukocyte Esterase Negative 02/16/18 05:10: Sodium 145, Potassium 4.0, Chloride 113 H, Carbon Dioxide 24.0, Anion Gap 8, BUN 31 H, Creatinine 1.22 H, Est GFR (MDRD) Af Amer 55 L, Est GFR (MDRD) Non-Af 45 L, BUN/Creatinine Ratio 25.4 H, Glucose 184 H, Calcium 9.2 02/16/18 05:10: WBC 6.6, RBC 3.79 L, Hgb 11.5 L, Hct 36.5 L, MCV 96.3, MCH 30.3, MCHC 31.5 L, RDW 13.8, RDW Differential 47.5 H, Plt Count 208, MPV 9.8 02/16/18 05:10: PT 13.5, INR 1.0, APTT 36.4 H Rhythm: Sinus rhythm with an underlying IVCD pattern ECHO: Pending Cardiac Cath: Left ventricle: Normal with an LVEF of 60%; coronary arteries with mild luminal irregularities; aortic valve noted to be calcified without any obvious hemodynamically significant appearing gradient on left ventricular pullback procedure; mitral valve suggesting mild mitral valve regurgitation Medical Necessity - Tobacco Use Smoking Status: Never smoker Assessment/Plan 1. Abnormal cardiac enzymes The patient does have abnormal cardiac enzymes concerning for underlying CAD with myocardial ischemia and a possible non-ST segment elevation [place]. The patient is being monitored. She is being treated medically as deemed appropriate and tolerated. She is now undergone further evaluation with diagnostic cardiac catheterization. This did not suggest angiographically significant appearing CAD. Thus it appears her cardiac enzymes may have been related to a type II supply demand mismatch event as opposed to a primary acute coronary syndrome event. 2. Paroxysmal atrial fibrillation The patient has a history of underlying sinus bradycardia without rate limiting medications. She was noted to have atrial fibrillation with a somewhat elevated but not necessarily high ventricular heart rate. This is superimposed upon her findings of underlying left bundle branch block. It does raise concern of underlying conduction system related issues. It does raise concern of a possible underlying sick sinus syndrome/bradycardia tachycardia syndrome. At the present time the patient is back in sinus rhythm. She is on low-dose beta-ricarda therapy with her heart rate being monitored. She has been on temporary anticoagulant therapy. Following recovery from her diagnostic cardiac catheterization, barring unforeseen change in her clinical course, she will need be placed on systemic oral anticoagulant therapy. The patient will also need consideration for future follow-up of her cardiac rate and rhythm noting her concerns of bradycardia and paroxysmal atrial fibrillation with a somewhat elevated heart rate being concerning for an underlying sinus syndrome/bradycardia tacky syndrome for the need for medical therapy and possible future permanent pacemaker support. 3. Cardiac murmur The patient does have a cardiac murmur. Based upon her cardiac catheterization she was found to have evidence of aortic valve calcification hemodynamically significant appearing gradients on left ventricular pullback procedure and mild mitral valve regurgitation. An echocardiogram is pending for further review. 4. Carotid artery bruits The patient does have bilateral bruits. She should be considered for carotid artery duplex study. If this is unremarkable then perhaps her findings are related to extension of her cardiac murmur. 5. Hypertension The patient will need to be considered for nonrate limiting medical therapy to treat her hypertension. 6. Thyroid disorder The patient does have an underlying thyroid disorder. She has been evaluated by endocrinology in the past. She should be considered for future endocrinology evaluation as well to assist in adjusting her thyroid condition/medications her thyroid may be interacting with her cardiovascular findings. 7. Hyperlipidemia The patient will continue lipid-lowering therapy. 8. Hyperglycemia She will need to continue evaluation care per internal medicine. Comment: The above was discussed with the patient, her granddaughter, and Dr. Isidro. This note was generated with [employer] dictation software. It may contain incorrect words, spelling, and punctuation that were not noted in checking the note before signing.
--- NOTE | 2018-02-16 09:29 | PN.CARD_ITS ---
Subjectve: The patient is now status post diagnostic cardiac catheterization. The patient has no new acute symptoms nor did she have any obvious adverse cardiovascular events from her procedure. Objective: Vital Signs Temp Pulse Resp BP Pulse Ox 98.0 F 60 18 161/74 H 93 02/16/18 08:20 02/16/18 09:05 02/16/18 09:05 02/16/18 09:05 02/16/18 09:05 Oxygen Delivery Method Room Air Weight: 180 lb 1.883 oz Body Mass Index (BMI) 32.9 Intake and Output for Last 24 Hours 02/14/18 02/15/18 02/16/18 23:59 23:59 23:59 Intake Total 3448 / 3448 560 / 560 Balance 3448 / 3448 560 / 560 General: Awake, Alert, Oriented x 3, Cooperative, No Acute Distress HEENT: Atraumatic, Normocephalic, PERRL, EOMI, Sclera Non Icteric Oral: Moist Mucosa Neck: Supple, Good ROM, No JVD Lungs: Clear to auscultation Cardiovascular: Regular Rhythm, Normal S1, Normal S2 Murmur Murmur: Grade 3/6, Harsh, Mid Systolic, LLSB, LVOT, Sternal Notch Vascular: Normal Femoral Pulses Abdomen: Bowel Sounds Present, Soft, Non Tender Extremities: No Cyanosis, No Clubbing, No edema Neurological: No Focal Motor or Sensory Deficit Psych/Mental Status: Appropriate, Normal Affect 02/16/18 03:15: Urine Color Yellow, Urine Clarity Sl. Cloudy, Urine pH 6.0, Ur Specific [place] 1.015, Urine Protein 15 H, Urine Glucose (UA) Normal, Urine Ketones Negative, Urine Occult Blood Negative, Urine Nitrite Negative, Urine Bilirubin Negative, Urine Urobilinogen Normal, Ur Leukocyte Esterase Negative 02/16/18 05:10: Sodium 145, Potassium 4.0, Chloride 113 H, Carbon Dioxide 24.0, Anion Gap 8, BUN 31 H, Creatinine 1.22 H, Est GFR (MDRD) Af Amer 55 L, Est GFR ( MDRD) Non-Af 45 L, BUN/Creatinine Ratio 25.4 H, Glucose 184 H, Calcium 9.2 02/16/18 05:10: WBC 6.6, RBC 3.79 L, Hgb 11.5 L, Hct 36.5 L, MCV 96.3, MCH 30.3 , MCHC 31.5 L, RDW 13.8, RDW Differential 47.5 H, Plt Count 208, MPV 9.8 02/16/18 05:10: PT 13.5, INR 1.0, APTT 36.4 H Rhythm: Sinus rhythm with an underlying IVCD pattern ECHO: Pending Cardiac Cath: Left ventricle: Normal with an LVEF of 60%; coronary arteries with mild luminal irregularities; aortic valve noted to be calcified without any obvious hemodynamically significant appearing gradient on left ventricular pullback procedure; mitral valve suggesting mild mitral valve regurgitation Medical Necessity - Tobacco Use Smoking Status: Never smoker Assessment/Plan 1. Abnormal cardiac enzymes The patient does have abnormal cardiac enzymes concerning for underlying CAD with myocardial ischemia and a possible non-ST segment elevation NH. The patient is being monitored. She is being treated medically as deemed appropriate and tolerated. She is now undergone further evaluation with diagnostic cardiac catheterization. This did not suggest angiographically significant appearing CAD. Thus it appears her cardiac enzymes may have been related to a type II supply demand mismatch event as opposed to a primary acute coronary syndrome event. 2. Paroxysmal atrial fibrillation The patient has a history of underlying sinus bradycardia without rate limiting medications. She was noted to have atrial fibrillation with a somewhat elevated but not necessarily high ventricular heart rate. This is superimposed upon her findings of underlying left bundle branch block. It does raise concern of underlying conduction system related issues. It does raise concern of a possible underlying sick sinus syndrome/bradycardia tachycardia syndrome. At the present time the patient is back in sinus rhythm. She is on low-dose beta-ricarda therapy with her heart rate being monitored. She has been on temporary anticoagulant therapy. Following recovery from her diagnostic cardiac catheterization, barring unforeseen change in her clinical course, she will need be placed on systemic oral anticoagulant therapy. The patient will also need consideration for future follow-up of her cardiac rate and rhythm noting her concerns of bradycardia and paroxysmal atrial fibrillation with a somewhat elevated heart rate being concerning for an underlying sinus syndrome/bradycardia tacky syndrome for the need for medical therapy and possible future permanent pacemaker support. 3. Cardiac murmur The patient does have a cardiac murmur. Based upon her cardiac catheterization she was found to have evidence of aortic valve calcification hemodynamically significant appearing gradients on left ventricular pullback procedure and mild mitral valve regurgitation. An echocardiogram is pending for further review. 4. Carotid artery bruits The patient does have bilateral bruits. She should be considered for carotid artery duplex study. If this is unremarkable then perhaps her findings are related to extension of her cardiac murmur. 5. Hypertension The patient will need to be considered for nonrate limiting medical therapy to treat her hypertension. 6. Thyroid disorder The patient does have an underlying thyroid disorder. She has been evaluated by endocrinology in the past. She should be considered for future endocrinology evaluation as well to assist in adjusting her thyroid condition/ medications her thyroid may be interacting with her cardiovascular findings. 7. Hyperlipidemia The patient will continue lipid-lowering therapy. 8. Hyperglycemia She will need to continue evaluation care per internal medicine. Comment: The above was discussed with the patient, her granddaughter, and Dr. Isidro. This note was generated with [employer] dictation software. It may contain incorrect words, spelling, and punctuation that were not noted in checking the note before signing.
[2018-02-16] MEDS: Glimepiride 1 MG Tablet PO (10:01)
[2018-02-16] MEDS: Calcitriol 0.25 MCG Capsule PO (10:01)
[2018-02-16] MEDS: hydrALAZINE 50 MG Tablet PO ×2 (10:02→14:44)
--- NOTE | 2018-02-16 10:26 | CASEMGMT ---
Face to Face with patient for initial transition planning/care coordination assessment. MIN HAGEN introduced self and role at [facility], pt voices understanding and consents to assessment at this time. Pt is lying in bed in no distress at this time. Pt is A/O x4 at this time and answers all questions appropriately at this time. Care providers, pharmacy, and demographics verified. See attached link. Pt states interest in new endocrinology at this time. Pt provided with number for JUN Booth CNP and also Dr. Badillo and Dr. Rivers in [place]. Pt voices no further concerns/needs at this time. Advised pt to ask for CM if any further questions/concerns/needs arise, voices understanding. Per Dr. Isidro, pt to be sent home on Xarelto or Eliquis at discharge, CM to follow. PLAN: [place]
--- NOTE | 2018-02-16 18:06 | DCINST_ITS ---
- Discharge Diagnoses Current Active Problems: Current Active and Chronic Problems New onset a-fib (Acute) Hyperthyroidism (Acute) HTN (hypertension) (Chronic) Abnormal cardiac enzyme level (Acute) HLD (hyperlipidemia) (Chronic) Hyperglycemia (Chronic) Cardiac murmur (Acute) Carotid bruit (Acute) You will use the following diet at home:: Calorie/Carbohydrate Controlled ( specify 1200, 1400, etc) - 1800 rachell Your food should be the consistency of: Regular Your liquids should be the consistency of: Regular/Thin Discharge Activity: Return to Normal Activity Weight Bearing Status: Full weight bearing Allergies/Adverse Reactions: Allergies benazepril [From Lotensin] Allergy (Verified 02/14/18 16:08) Unknown Iodine and Iodide Containing Produc Allergy (Verified 02/16/18 07:47) Shortness of breath meperidine [From Demerol] Allergy (Verified 02/14/18 16:08) Unknown propoxyphene [From Darvon] Allergy (Verified 02/14/18 16:08) Unknown spironolactone Allergy (Verified 02/14/18 16:08) Unknown PCN Allergy (Uncoded 02/14/18 16:08) Hives Medications to take at Discharge Amlodipine [Norvasc] 10 mg PO DAILY 02/14/18 Calcitriol [Rocaltrol] 0.25 mcg PO DAILY 02/14/18 Cholecalciferol (Vitamin D3) [Vitamin D3] 2,000 unit PO DAILY 02/14/18 Glimepiride 1 mg PO DAILY 02/14/18 Aspirin [Aspirin, Baby] 81 mg PO DAILY@0800 tab.chew 02/16/18 Carvedilol [Coreg (Beta Meenu)] 3.125 mg PO BID tablet 02/16/18 Furosemide 40 mg PO DAILY #1 tablet 02/16/18 Levothyroxine Sodium [Synthroid] 125 mcg PO DAILY #30 tab 02/16/18 Pravastatin [Pravachol] 40 mg PO QHS tablet 02/16/18 hydrALAZINE [Apresoline] 50 mg PO TID tablet 02/16/18 The following prescriptions were given: Furosemide 40 mg PO DAILY #1 tablet Levothyroxine Sodium [Synthroid] 125 mcg PO DAILY #30 tab Primary Care Physician: Blaise Winslow [Primary Care Provider] - Please follow up with your Primary Care Physician in: in 1-2 weeks Please Follow Up With: Moodispaw,Brady, MD When: next week
--- NOTE | 2018-02-17 18:48 | PCM.DC.SUM ---
Discharge Date and Diagnosis Date of Admission: 02/14/18 Date of Discharge: 02/16/18 - Primary Discharge Diagnosis #1 [id number] to demand ischemia #2 new onset atrial fibrillation converted to sinus rhythm #3 hypothyroidism #4 hypokalemia #5 chronic renal disease stage III secondary to hypertension #6 hypertension #7 nonocclusive coronary artery disease - Secondary Discharge Diagnosis Chronic Problems HTN (hypertension) (Chronic) HLD (hyperlipidemia) (Chronic) Hyperglycemia (Chronic) Hospital Course and Treatment Operations: None Procedures: 2-D Echocardiogram, Cardiac catheterization Summary of Care Provided: The patient is a 78 year old F who was seen in the emergency room at [facility] with chief complaint of an abnormal feeling in her chest which she described as an increased heart rate. Patient denied any shortness of breath or actual chest pressure. Workup in the emergency room revealed the patient to be in atrial fibrillation with a rate of 101, chest x-ray showed chronic changes and no acute findings, CBC was unremarkable, chemistry was remarkable for a potassium of 3.4 and a BUN of 42 creatinine was also elevated at 1.32. Troponin was 0.03 and TSH was low at 0.01. Patient was given a dose of Lovenox in the emergency room subcu, no medications were given for her heart rate. Patient was admitted to PCU for new onset atrial fib, she was seen in consultation by cardiology and rate control medication in the form of beta-meenu was administered. Patient's cardiac enzymes were cycled and radha to 0.059-this was felt to be secondary to non-STEMI from demand ischemia. Patient's heart rate slowed in the 50s and 60s, echocardiogram was performed which showed a preserved ejection fraction of 65%, aortic valve showed mild aortic stenosis, mitral valve showed mild mitral valve insufficiency. Patient underwent a cardiac catheterization which showed diffuse nonocclusive coronary artery disease. Patient converted to normal sinus rhythm during her PCU stay, she was maintained on Lovenox subcu for full anticoagulation. Patient was given oral potassium for potassium supplementation. Patient had a carotid ultrasound performed but the results of this test were not available to this examiner at the time of her discharge. On 02/16/18, patient was seen and examined felt to be in stable condition for discharge home, she was placed on Xarelto 15 mg daily to start on 02/17/18. Patient's thyroid studies that were performed during her hospitalization indicated that she was on an excessive amount of thyroid medication, patient was instructed to reduce her thyroid medication as an outpatient. Discharge Activity: Return to Normal Activity Weight Bearing Status: Full weight bearing Home Medications: Medications to take at Discharge Amlodipine [Norvasc] 10 mg PO DAILY 02/14/18 Calcitriol [Rocaltrol] 0.25 mcg PO DAILY 02/14/18 Cholecalciferol (Vitamin D3) [Vitamin D3] 2,000 unit PO DAILY 02/14/18 Glimepiride 1 mg PO DAILY 02/14/18 Aspirin [Aspirin, Baby] 81 mg PO DAILY@0800 tab.chew 02/16/18 Carvedilol [Coreg (Beta Meenu)] 3.125 mg PO BID tab 02/16/18 Furosemide 40 mg PO DAILY #1 tab 02/16/18 Levothyroxine Sodium [Synthroid] 125 mcg PO DAILY #30 tab 02/16/18 Pravastatin [Pravachol] 40 mg PO QHS tab 02/16/18 hydrALAZINE [Apresoline] 50 mg PO TID tab 02/16/18 Following Prescrptions Were Given to Patient: Furosemide 40 mg PO DAILY #1 tab Levothyroxine Sodium [Synthroid] 125 mcg PO DAILY #30 tab Primary Care Physician: Blaise Winslow [Primary Care Provider] - Please follow up with your Primary Care Physician in: in 1-2 weeks Please Follow Up With: Brady Frye MD When: next week Disposition: Home Minutes spent on discharge:: 34 Patient Condition:: Stable Medical Necessity - Tobacco Use Smoking Status: Never smoker Meaningful Use Info Meaningful Use Diagnoses (Choose all that apply): AMI - AMI Aspirin given w/in 24hrs of arrival?: Yes ASA at discharge?: Yes Statins at discharge?: Yes Сергей/ARB at discharge?: No Reason Сергей/ARB not ordered:: Allergy - Not indicated Beta Meenu at discharge?: Yes Done w/ Acute [place] measure.: Yes Code Visit Inpatient E&M: 13178 Disch Hosp
--- NOTE | 2018-02-17 18:58 | DS.PCM_ITS ---
Discharge Date and Diagnosis Date of Admission: 02/14/18 Date of Discharge: 02/16/18 - Primary Discharge Diagnosis #1 [id number] to demand ischemia #2 new onset atrial fibrillation converted to sinus rhythm #3 hypothyroidism #4 hypokalemia #5 chronic renal disease stage III secondary to hypertension #6 hypertension #7 nonocclusive coronary artery disease - Secondary Discharge Diagnosis Chronic Problems HTN (hypertension) (Chronic) HLD (hyperlipidemia) (Chronic) Hyperglycemia (Chronic) Hospital Course and Treatment Operations: None Procedures: 2-D Echocardiogram, Cardiac catheterization Summary of Care Provided: The patient is a 78 year old F who was seen in the emergency room at [facility] with chief complaint of an abnormal feeling in her chest which she described as an increased heart rate. Patient denied any shortness of breath or actual chest pressure. Workup in the emergency room revealed the patient to be in atrial fibrillation with a rate of 101, chest x-ray showed chronic changes and no acute findings, CBC was unremarkable, chemistry was remarkable for a potassium of 3.4 and a BUN of 42 creatinine was also elevated at 1.32. Troponin was 0.03 and TSH was low at 0.01. Patient was given a dose of Lovenox in the emergency room subcu, no medications were given for her heart rate. Patient was admitted to PCU for new onset atrial fib, she was seen in consultation by cardiology and rate control medication in the form of beta- meenu was administered. Patient's cardiac enzymes were cycled and radha to 0.059-this was felt to be secondary to non-STEMI from demand ischemia. Patient' s heart rate slowed in the 50s and 60s, echocardiogram was performed which showed a preserved ejection fraction of 65%, aortic valve showed mild aortic stenosis, mitral valve showed mild mitral valve insufficiency. Patient underwent a cardiac catheterization which showed diffuse nonocclusive coronary artery disease. Patient converted to normal sinus rhythm during her PCU stay, she was maintained on Lovenox subcu for full anticoagulation. Patient was given oral potassium for potassium supplementation. Patient had a carotid ultrasound performed but the results of this test were not available to this examiner at the time of her discharge. On 02/16/18, patient was seen and examined felt to be in stable condition for discharge home, she was placed on Xarelto 15 mg daily to start on 02/17/18. Patient's thyroid studies that were performed during her hospitalization indicated that she was on an excessive amount of thyroid medication, patient was instructed to reduce her thyroid medication as an outpatient. Discharge Activity: Return to Normal Activity Weight Bearing Status: Full weight bearing Home Medications: Medications to take at Discharge Amlodipine [Norvasc] 10 mg PO DAILY 02/14/18 Calcitriol [Rocaltrol] 0.25 mcg PO DAILY 02/14/18 Cholecalciferol (Vitamin D3) [Vitamin D3] 2,000 unit PO DAILY 02/14/18 Glimepiride 1 mg PO DAILY 02/14/18 Aspirin [Aspirin, Baby] 81 mg PO DAILY@0800 tab.chew 02/16/18 Carvedilol [Coreg (Beta Meenu)] 3.125 mg PO BID tab 02/16/18 Furosemide 40 mg PO DAILY #1 tab 02/16/18 Levothyroxine Sodium [Synthroid] 125 mcg PO DAILY #30 tab 02/16/18 Pravastatin [Pravachol] 40 mg PO QHS tab 02/16/18 hydrALAZINE [Apresoline] 50 mg PO TID tab 02/16/18 Following Prescrptions Were Given to Patient: Furosemide 40 mg PO DAILY #1 tab Levothyroxine Sodium [Synthroid] 125 mcg PO DAILY #30 tab Primary Care Physician: Blaise Winslow [Primary Care Provider] - Please follow up with your Primary Care Physician in: in 1-2 weeks Please Follow Up With: Brady Frye MD When: next week Disposition: Home Minutes spent on discharge:: 34 Patient Condition:: Stable Medical Necessity - Tobacco Use Smoking Status: Never smoker Meaningful Use Info Meaningful Use Diagnoses (Choose all that apply): AMI - AMI Aspirin given w/in 24hrs of arrival?: Yes ASA at discharge?: Yes Statins at discharge?: Yes Сергей/ARB at discharge?: No Reason Сергей/ARB not ordered:: Allergy - Not indicated Beta Meenu at discharge?: Yes Done w/ Acute [place] measure.: Yes Code Visit Inpatient E&M: 65344 Disch Hosp
== END 2018-02-16 19:15 | disposition home or self-care (01) | DRG 282 ==
LOC: ED 17:01 → PCU 20:49
PROVIDERS: Internal Medicine Cardiovascular Disease; Admitting Provider Internal Medicine; Emergency Provider Emergency Medicine; Family Provider Internal Medicine; PCP Internal Medicine; Visit Provider Internal Medicine
DX: I21.A1 Myocardial infarction type 2 (principal); E11.22 Type 2 diabetes mellitus with diabetic chronic kidney disease; E87.6 Hypokalemia; I25.10 Atherosclerotic heart disease of native coronary artery without angina pectoris; I12.9 Hypertensive chronic kidney disease with stage 1 through stage 4 chronic kidney disease, or unspecified chronic kidney disease; N18.3 Chronic kidney disease, stage 3 (moderate); E78.5 Hyperlipidemia, unspecified; E11.65 Type 2 diabetes mellitus with hyperglycemia; I48.0 Paroxysmal atrial fibrillation; R09.89 Other specified symptoms and signs involving the circulatory and respiratory systems; I34.0 Nonrheumatic mitral (valve) insufficiency; E89.0 Postprocedural hypothyroidism
CPT/HCPCS: 36415; 71046; 80048; 80053; 80061; 81002; 83880; 84439; 84443; 84481; 84484; 85025; 85027; 85610; 85730; 93005; 93306; 93458; 93880; 99152; 99153; 99283; J7030; A4216; C1769; C1894; Q9967

== ENCOUNTER → 2018-04-07 10:47 | Outpatient (CLI) | payer MEDICARE, BC, SELFPAY | PROVIDERS: Family Provider Internal Medicine; PCP Internal Medicine; Visit Provider Nurse Practitioner Family | DX: I48.0 Paroxysmal atrial fibrillation (principal); R00.1 Bradycardia, unspecified | CPT/HCPCS: 93225; 93226 ==

== ENCOUNTER → 2018-05-06 11:57 | Outpatient (CLI) | payer MEDICARE, BC, SELFPAY ==
[2018-05-06 12:23] LABS: Hematocrit 40.2 % (37-47)
== END ==
PROVIDERS: Family Provider Internal Medicine; PCP Internal Medicine; Visit Provider Nurse Practitioner Family
DX: R53.83 Other fatigue (principal); Z79.01 Long term (current) use of anticoagulants
CPT/HCPCS: 36415; 85014; 85018

== ENCOUNTER → 2018-05-26 22:55 | Outpatient (CLI) | payer MEDICARE, BC, SELFPAY | PROVIDERS: Family Provider Internal Medicine; PCP Internal Medicine; Visit Provider Nurse Practitioner Family | DX: G47.33 Obstructive sleep apnea (adult) (pediatric) (principal) | CPT/HCPCS: 95811 ==

== ENCOUNTER → 2018-12-10 20:45 | Outpatient (CLI) | payer MEDICARE, BC, SELFPAY ==
[2018-12-09 10:37] VITALS: BMI 34.5
== END ==
PROVIDERS: Family Provider Internal Medicine; PCP Internal Medicine; Visit Provider Nurse Practitioner Acute Care
DX: G47.33 Obstructive sleep apnea (adult) (pediatric) (principal)
CPT/HCPCS: 95811

== ENCOUNTER → 2019-02-09 08:09 | Outpatient (CLI) | payer MEDICARE, BC, SELFPAY ==
[2018-12-09 10:37] VITALS: BMI 34.5
== END ==
PROVIDERS: Family Provider Internal Medicine; PCP Internal Medicine; Referring Provider Nurse Practitioner Acute Care; Visit Provider Nurse Practitioner Acute Care
DX: G47.33 Obstructive sleep apnea (adult) (pediatric) (principal)

== ENCOUNTER → 2019-02-23 14:50 | Outpatient (CLI) | payer MEDICARE, BC, SELFPAY ==
[2018-12-09 10:37] VITALS: BMI 34.5
--- NOTE | 2019-02-23 15:04 | VDLE_ITS ---
Reason For Study: Edema Procedure LEFT Exam performed in department. GSV is normal. A preliminary report was called and/or faxed CFV is compressible, spontaneous, phasic, to Nayla. competent, and demonstrates normal augmentation. FV is compressible, spontaneous, phasic, competent and demonstrates normal augmentation. POP V is compressible, spontaneous, phasic, competent and demonstrates normal augmentation. T/P Trunk is compressible. PTV is compressible. LT PerV is compressible. Interpretation Summary Deep veins of the left lower extremity are patent and compressible segmentally. There is no evidence of left lower extremity deep vein thrombosis. Valvular competence appears intact within the proximal deep venous system on the left . The left greater saphenous vein appears patent and compressible segmentally. Ordering Physician: Blaise Winslow Referring Physician: Blaise Winslow Performed By: Anaya Aguirre RVT
== END ==
PROVIDERS: Family Provider Internal Medicine; PCP Internal Medicine; Referring Provider Internal Medicine; Visit Provider Internal Medicine
DX: M79.89 Other specified soft tissue disorders (principal)
CPT/HCPCS: 93971

== ENCOUNTER → 2019-03-24 10:54 | Outpatient (CLI) | payer MEDICARE, BC, SELFPAY ==
[2019-03-10 12:40] VITALS: BMI 35.4
[2019-03-24 11:30] LABS: Absolute Lymphocyte Count 1.18 X10^3/ul (0.83-4.51); Absolute Neutrophil Count 3.9 X10^3/uL (2.0-7.7); Eosinophil# 0.09 X10^3/uL; Eosinophils% 1.6 % (0-5); Hematocrit 37.1 % (37-47); Hemoglobin 11.7 g/dl (12.0-15.0); Lymphocyte # 1.18 X10^3/ul (4.0); Lymphocyte % 21.2 % (19-41); Mean Corp Hgb Conc 31.5 g/gl (32-36); Mean Corpuscular Hgb 29.6 pg (27.0-32.0); Mean Corpuscular Volume 93.9 fL (81-99); Mean Platelet Vol. 9.5 fl (6.2-12.0); Monocyte% 7.2 % (0-10); Neutrophil # 3.88 X10^3/uL (2.7-7.7); Neutrophil % 69.8 % (47-70); Platelet Count 237 K/mm3 (150-450); RBC Distribution Width CV 13.5 % (11.6-14.6); RBC Distribution Width SD 44.4 fl (35.1-43.9); Red Blood Count 3.95 M/mm3 (4.2-5.4); White Blood Count 5.6 K/mm3 (4.4-11.0)
[2019-03-24 11:31] LABS: POSITIVE COUNT NO; POSITIVE DIFFERENTIAL NO; POSITIVE MORPHOLOGY NO
[2019-03-24 11:51] LABS: Anion Gap 4 (5-15); BUN 39 mg/dL (7-18); BUN/Creat Ratio 22.5 RATIO (10-20); Calcium,Total 9.7 mg/dL (8.5-10.1); Chloride 107 mmol/L (98-107); Creatinine, Serum 1.73 mg/dL (0.55-1.02); EST Glomerular Filtration Rate 30 mL/min (>60); Est Glom Filt Rate - Afr Amer 37 mL/min (>60); Glucose 132 mg/dL (74-106); Iron 89 ug/dL (50-170); Sodium Level 141 mmol/L (136-145)
[2019-03-24 12:02] LABS: Vitamin B12 349 pg/mL (211-911)
[2019-03-24 12:09] LABS: Iron Binding Capacity,Total 377 ug/dL (250-450)
== END ==
PROVIDERS: Family Provider Internal Medicine; PCP Internal Medicine; Referring Provider Internal Medicine; Visit Provider Internal Medicine
DX: D64.9 Anemia, unspecified (principal); E83.52 Hypercalcemia; M17.12 Unilateral primary osteoarthritis, left knee
CPT/HCPCS: 36415; 80048; 82607; 83540; 83550; 85025; 97016; 97110

== ENCOUNTER → 2019-03-26 12:06 | Outpatient (CLI) | payer MEDICARE, BC, SELFPAY ==
[2019-03-10 12:40] VITALS: BMI 35.4
== END ==
PROVIDERS: Family Provider Internal Medicine; PCP Internal Medicine; Referring Provider Internal Medicine; Visit Provider Internal Medicine
DX: E83.52 Hypercalcemia (principal); D64.9 Anemia, unspecified
CPT/HCPCS: 82746

== ENCOUNTER → 2019-06-08 14:11 | Outpatient (CLI) | payer MEDICARE, BC, SELFPAY ==
[2019-05-26 11:01] VITALS: BMI 35.4
--- NOTE | 2019-06-08 14:15 | CT_ITS ---
STUDY: CT CHEST WITHOUT CONTRAST REASON FOR EXAM: Female, 79 years old. Hemoptysis. Nosebleeds. Shortness of breath upon exertion. RADIATION DOSAGE (If Supplied By Facility): CTDIvol = ( 15.11 ) mGy, DLP = ( 479.40 ) mGycm TECHNIQUE: Transaxial imaging was performed without the administration of intravenous contrast material. Multiplanar coronal and sagittal images were reformatted. Individualized dose optimization techniques were used for this CT. COMPARISON: Comparison is made with prior chest radiograph dated February 15, 2018. FINDINGS: A left-sided pacemaker is seen. The lungs are normal. There is no demonstrated pleural abnormality. Normal heart and pericardium. There are calcifications of the coronary arteries. There are multiple small lymph nodes within the mediastinum, which are normal in size and morphology most compatible with reactive lymph hyperplasia. Normal hilar regions. Normal unenhanced pulmonary arteries. There is atherosclerotic calcification of the aortic arch with tortuosity and elongation of the aortic arch and descending thoracic aorta. There are multi-level degenerative changes of the thoracic spine. Gallstones. CT/Chest without Contrast IMPRESSION: No acute abnormality is seen. Electronically Signed: Soren Cortez, at 13:38 EDT , Service support ,
== END ==
PROVIDERS: Family Provider Internal Medicine; PCP Internal Medicine; Referring Provider Nurse Practitioner Acute Care; Visit Provider Nurse Practitioner Acute Care
DX: R04.2 Hemoptysis (principal)
CPT/HCPCS: 71250

== ENCOUNTER 2019-06-21 15:30 | Outpatient (RCR) | payer MEDICARE, BC, SELFPAY ==
[2018-12-09 10:37] VITALS: BMI 34.5
--- NOTE | 2019-01-08 15:16 | HP.PTEVAL_ITS ---
Patient's Visit Information LYNETTE WEBSTER is a 79 year old F referred to Physical Therapy by TRUNG KELLEY with a diagnosis of L TKA. Date of Evaluation: 01/08/19 Physical Therapist: Octavio Buchanan, PT, ATC - Visit Plan Frequency: 2-3x /Week Duration: 4-6 Weeks Plan: L knee PROM/mobs, stretching and strengthening, balance/proprio, core stab ex's, nustep, and HEP - Subjective Findings: DOS: 12/22/18. Pt reports a chronic Hx of L knee pain before having a L TkA. Pt reports she was in the hospital for 2 days, then had a few home health visits to edu her on stair negotiation. No tingling or numbness in L LE at this time. Pt reports occasional spasms in L LE, but otherwise just pain. Pt reports she has been compliant with HEP of typical TKA postop ex's. No sleep difficulty secondary to pain. Pt reports she has 2 steps to get into house, then 8 steps once in the house. Pt reports her goal is to get better so she can continue with her social activities without being limited. Pt reports L knee pain is 2/10 at rest, 6/10 at worst (standing after sitting for a long period of time) - Pain L TKA Pain Intensity (Out of 10): 2 Pain Intensity Range: 6 - Objective Neuro: B LE sensation is WNL to light touch. B achilles reflex= 2/3. Observation: Incision is healing well. No obvious signs of infection. ROM: L knee 0-12-80; R knee 0-122. MMT: R knee 3/5 throughout, L knee 5/5 throughout. Gait: Slow cadance, WW. able to ambulate greater than 340'. Girth at joint line: L knee 46 cm, R knee 41 cm - Goals Goal 1:: Decrease L knee pain x 50% to aid with transfers Goal Time Frame: 4-6 Weeks Goal 2:: Increase L knee ROM x 20 degrees to aid with restoring a more normalized gait pattern Goal Time Frame: 4-6 Weeks Goal 3:: Increase L knee strength x 1 grade to aid with stair negotiation. Goal Time Frame: 4-6 Weeks Goal 4:: I with HEP Goal Time Frame: 4-6 Weeks - Rehabilitation Potential Physical Therapy Diagnosis: L knee pain, swelling, and weakness secondary to L TKA Rehabilitation Potential: Good - Anticipated Interventions Patient/Client Instruction: Educate patient on: Condition, Plan of Care For the Purpose of:: To improve self management Therapeutic Exercise to Include: Strength training, Endurance training, Balance training, Flexibilty training, Passive ROM, Active ROM, Dynamic Lumbar Stabilization Cryotherapy (ice pack, ice massage): Yes For the Purpose of:: To decrease pain Thank you for the opportunity to evaluate your patient. For Medicare and Medicare HMO plans, please review the plan of care and approve it. It will need to be FAXED BACK to us at [phone] for Medicare purposes. For Medicare only, by signing this I certify the plan of care. Please let me know if there are questions or concerns regarding this plan of care. Physician Signature: Date:____
--- NOTE | 2019-01-27 10:18 | HP.PTREVAL ---
TRUNG KELLEY, It has been my pleasure to treat LYNETTE WEBSTER over the last 9 visits for L TKA. Please see the progress note below for an update on the physical therapy plan of care! Subjective: Pain is mild this date Objective/Function: L knee pain 2/10 currently, increases to 8/10 at worst. L knee ROM: 0-10-95. L knee MMT: L knee 4/5 throughout. Pt is progressing well toward Rx goals Plan Plan: L knee PROM/mobs, stretching and strengthening, balance/proprio, core stab ex's, nustep, and HEP Goals Goal 1:: Decrease L knee pain x 50% to aid with transfers Goal Time Frame: 4-6 Weeks Goal 2:: Increase L knee ROM x 20 degrees to aid with restoring a more normalized gait pattern Goal Time Frame: 4-6 Weeks Goal 3:: Increase L knee strength x 1 grade to aid with stair negotiation. Goal Time Frame: 4-6 Weeks Goal 4:: I with HEP Goal Time Frame: 4-6 Weeks Anticipated Interventions Patient/Client Instruction: Educate patient on: Condition, Plan of Care For the Purpose of:: To improve self management Therapeutic Exercise to Include: Strength training, Endurance training, Balance training, Flexibilty training, Passive ROM, Active ROM, Dynamic Lumbar Stabilization Cryotherapy (ice pack, ice massage): Yes For the Purpose of:: To decrease pain Please do not hesitate to contact me at [phone] by phone or if you have questions or concerns regarding this new plan of care! Sincerely, Octavio Buchanan, PT, ATC
--- NOTE | 2019-02-24 11:00 | HP.PTREVAL ---
TRUNG KELLEY, It has been my pleasure to treat LYNETTE WEBSTER over the last 20 visits for L TKA. Please see the progress note below for an update on the physical therapy plan of care! Subjective: Minor pain this date Objective/Function: Pain 12/06. L knee ROM: 0-10-110 degrees. L knee MMT: flexion is 4-/5, ext is 4/5. Pt is progressing well toward goals Plan Plan: L knee PROM/mobs, stretching and strengthening, balance/proprio, core stab ex's, nustep, and HEP Goals Goal 1:: Decrease L knee pain x 50% to aid with transfers Goal Time Frame: 4-6 Weeks Goal 2:: Increase L knee ROM x 20 degrees to aid with restoring a more normalized gait pattern Goal Time Frame: 4-6 Weeks Goal 3:: Increase L knee strength x 1 grade to aid with stair negotiation. Goal Time Frame: 4-6 Weeks Goal 4:: I with HEP Goal Time Frame: 4-6 Weeks Anticipated Interventions Patient/Client Instruction: Educate patient on: Condition, Plan of Care For the Purpose of:: To improve self management Therapeutic Exercise to Include: Strength training, Endurance training, Balance training, Flexibilty training, Passive ROM, Active ROM, Dynamic Lumbar Stabilization Cryotherapy (ice pack, ice massage): Yes For the Purpose of:: To decrease pain Please do not hesitate to contact me at [phone] by phone or if you have questions or concerns regarding this new plan of care! Sincerely, Octavio Buchanan, PT, ATC
--- NOTE | 2019-04-05 10:24 | HP.PTREVAL ---
TRUNG KELLEY, It has been my pleasure to treat LYNETTE WEBSTER over the last 35 visits for L TKA. Please see the progress note below for an update on the physical therapy plan of care! Subjective: Pt reports she called her Dr today to get an appointment due to her pain and swelling. Pt is very sore today Objective/Function: L knee pain ranges from 3-4/10. L knee girth at joint line: 44 cm. L knee MMT: 4-/5 and painfull with testing. L knee ROM: 0-10-90 Plan Plan: L knee PROM/mobs, stretching and strengthening, balance/proprio, core stab ex's, nustep, and HEP Goals Goal 1:: Decrease L knee pain x 50% to aid with transfers Goal Time Frame: 4-6 Weeks Goal 2:: Increase L knee ROM x 20 degrees to aid with restoring a more normalized gait pattern Goal Time Frame: 4-6 Weeks Goal 3:: Increase L knee strength x 1 grade to aid with stair negotiation. Goal Time Frame: 4-6 Weeks Goal 4:: I with HEP Goal Time Frame: 4-6 Weeks Anticipated Interventions Patient/Client Instruction: Educate patient on: Condition, Plan of Care For the Purpose of:: To improve self management Therapeutic Exercise to Include: Strength training, Endurance training, Balance training, Flexibilty training, Passive ROM, Active ROM, Dynamic Lumbar Stabilization Cryotherapy (ice pack, ice massage): Yes For the Purpose of:: To decrease pain Please do not hesitate to contact me at [phone] by phone or if you have questions or concerns regarding this new plan of care! Sincerely, Octavio Buchanan, PT, ATC
--- NOTE | 2019-05-12 12:06 | HP.PTREVAL ---
TRUNG KELLEY, It has been my pleasure to treat LYNETTE WEBSTER over the last 45 visits for L TKA. Please see the progress note below for an update on the physical therapy plan of care! Subjective: Pt is sore today Objective/Function: L knee pain /10. L knee MMT: 5/5 throughout. L knee ROM: 0-5-107 Plan Plan: Keep chart open until after DrCarolin visit today Goals Goal 1:: Decrease L knee pain x 50% to aid with transfers Goal Time Frame: 4-6 Weeks Goal Progress: Goal Met Goal 2:: Increase L knee ROM x 20 degrees to aid with restoring a more normalized gait pattern Goal Time Frame: 4-6 Weeks Goal Progress: Goal Met Goal 3:: Increase L knee strength x 1 grade to aid with stair negotiation. Goal Time Frame: 4-6 Weeks Goal Progress: Goal Met Goal 4:: I with HEP Goal Time Frame: 4-6 Weeks Goal Progress: Goal Met Anticipated Interventions Patient/Client Instruction: Educate patient on: Condition, Plan of Care For the Purpose of:: To improve self management Therapeutic Exercise to Include: Strength training, Endurance training, Balance training, Flexibilty training, Passive ROM, Active ROM, Dynamic Lumbar Stabilization Cryotherapy (ice pack, ice massage): Yes For the Purpose of:: To decrease pain Please do not hesitate to contact me at [phone] by phone or if you have questions or concerns regarding this new plan of care! Sincerely, Octavio Buchanan, PT, ATC
== END 2019-06-21 19:00 | disposition home or self-care (01) ==
LOC: PT 15:30
PROVIDERS: Family Provider Internal Medicine; PCP Internal Medicine
DX: M17.12 Unilateral primary osteoarthritis, left knee (principal); R04.2 Hemoptysis
CPT/HCPCS: 71250; 97016; 97110; 97140; 97161; 97530

== ENCOUNTER 2019-07-25 14:25 | Emergency (ER) | payer MEDICARE, BC, SELFPAY ==
[2019-06-18 09:08] VITALS: BMI 36.7
[2019-07-25 14:26] VITALS: BP 166/82; PULSE 92; RESP 18; TEMP 36.5; O2SAT 96; BMI 36.6
[2019-07-25 15:19] LABS: Absolute Lymphocyte Count 1.53 X10^3/uL (0.83-4.51); Absolute Neutrophil Count 3.8 X10^3/uL (2.0-7.7); Basophil# 0.02 X10^3/uL; Basophil% 0.3 % (0-1); Eosinophil# 0.07 X10^3/uL; Eosinophils% 1.2 % (0-5); Hematocrit 38.3 % (37-47); Hemoglobin 12.2 g/dL (12.0-15.0); Lymphocyte # 1.53 X10^3/ul (4.0); Lymphocyte % 25.7 % (19-41); Mean Corp Hgb Conc 31.9 g/dL (32-36); Mean Corpuscular Hgb 31.2 pg (27.0-32.0); Mean Platelet Vol. 9.3 fl (6.2-12.0); Monocyte# 0.53 X10^3/uL; Monocyte% 8.9 % (0-10); NRBC Flagged by Analyzer 0 % (0-5); Neutrophil # 3.79 X10^3/uL (2.7-7.7); Neutrophil % 63.6 % (47-70); Platelet Count 248 K/mm3 (150-450); RBC Distribution Width CV 12.9 % (11.6-14.6); Red Blood Count 3.91 M/mm3 (4.2-5.4)
[2019-07-25] MEDS: Mixture 30 ML Bottle TOPICAL (15:22)
[2019-07-25] MEDS: Silver Nitrate (BKC) 1 EACH TOPICAL (15:23)
--- NOTE | 2019-07-25 15:23 | ED.DCSUM_ITS ---
History of Present Illness Chief Complaint: Nosebleed Informant: Patient Onset: Weeks Timing: Intermittent Current Severity: Moderate Maximum Severity: Moderate Narrative: Patient is a 79-year-old female with history of proximal atrial fibrillation, on Xarelto, presenting with recurrent nosebleeds. She states she is been having nosebleeds over the past few weeks every few days but normally stop after 20 minutes. She notes during this time she has has not been feeling herself. Today she started bleeding and it is been persistent all day which is why she finally came to the emergency room. She states that she has been blowing out clots and does feel that she is swallowing some blood. Patient denies any shortness of breath or difficulty breathing. She also notes in the past month s he has had some dyspnea on exertion. She is been referred to pulmonology and had a CT of her chest which is being evaluated also. Patient has been referred to ENT, Dr. Ac who states she might need to be cauterized but had not done that yet. Patient denies any other complaints at this time. She denies any lightheadedness, palpitations or other symptoms. Past Medical History - Allergies and Home Meds Allergies/Adverse Reactions: Allergies benazepril [From Lotensin] Allergy (Verified 07/25/19 14:27) Unknown Iodine and Iodide Containing Produc Allergy (Verified 07/25/19 14:27) Shortness of breath meperidine [From Demerol] Allergy (Verified 07/25/19 14:27) Unknown propoxyphene [From Darvon] Allergy (Verified 07/25/19 14:27) Unknown spironolactone Allergy (Verified 07/25/19 14:27) Unknown PCN Allergy (Uncoded 07/25/19 14:27) [facility] Physician: Blaise Winslow [Primary Care Provider] - Past Medical History: - - Atrial fibrillation, diabetes mellitus, hypertension Surgical History: no surgical history, - - Left TKA Lives: Spouse/ Significant Other Smoking Status: Never smoker - Family History Maternal Family History: Family History (Last Reviewed 06/18/19 @ 11:01 by GINI Salazar) Mother Cancer Father Cancer Family History: Reports: No pertinent history Review of Systems All systems negative except as indicated ENT: Reports: - - Epistaxis-right Respiratory: Reports: Dyspnea on exertion - 1 month Physical Exam Vital Signs/Narrative: Vital Signs Temp Pulse Resp BP Pulse Ox 07/25/19 14:26 97.7 F L 92 18 166/82 H 96 Inital Vital Signs reviewed: Yes General: Well nourished, Well developed, No Acute Distress Head: Normocephalic, Atraumatic Eyes: Perrl, EOMI. Negative for: Pale conjunctiva ENT: Moist mucous membranes, No rhinorrhea, TM's clear, - - Small actively bleeding vessel anterior right septum, small amount of blood clot also in the nasal passage. No active bleeding noticed in the oropharynx. Negative for: Sinus tenderness Neck: Supple, Nontender Cardiovascular: Regular rate, Regular rhythm, No murmurs Respiratory: No distress, CTA bilaterally, Chest nontender Abdomen: Soft, Nontender Back: Nontender, Normal Inspection Extremities: Nontender, No edema Skin: Normal color, No rash. Negative for: Pallor Neurological: Alert, Oriented x3, Cranial nerves II-XII grossly intact, Normal Strength, Normal Sensation Psychological: Normal affect, Normal Mood Diagnostic/Tx/Re-eval Laboratory Results - last 24 hr 07/25/19 15:13 WBC 6.0 RBC 3.91 L Hgb 12.2 Hct 38.3 MCV 98.0 MCH 31.2 MCHC 31.9 L RDW Std Deviation 46.0 H RDW Coeff of Ignacia 12.9 Plt Count 248 MPV 9.3 Immature Gran % (Auto) 0.300 Neut % (Auto) 63.6 Lymph % (Auto) 25.7 Frontier % (Auto) 8.9 Eos % (Auto) 1.2 Baso % (Auto) 0.3 Absolute Neuts (auto) 3.8 Absolute Lymphs (auto) 1.53 Nucleated RBC % 0 - Medical Decision Making She is evaluated for epistaxis. She appears nontoxic in no acute distress. This seems to be ongoing issue over the past month. Patient is hemodynamically stable. She does not appear acutely anemic. CBC shows a normal hemoglobin. Patient has proximal atrial fibrillation but states that she goes in and out of A. fib pretty frequently so do not will not stop her Xarelto at this time. Patient is a visualized anterior nosebleed. Area is anesthetized with a mixture of phenylephrine, lidocaine, saline and peppermint spirits as well as Afrin. Direct pressure is applied using cotton ball soaked in these medications. Bleeding has stopped on reevaluation and the area is cauterized with silver nitrate. Patient is monitored for about 10 minutes as no further bleeding. Patient is offered additional anterior packing to prevent recurrent bleeding and she accepts. Patient tolerated procedure well and a 5.5 cm packing is placed. Patient is counseled she can take Tylenol as needed for sinus pressure and pain associated with this. She will call her ENT tomorrow to arrange short follow- up. Patient is counseled on signs and symptoms requiring return to the emergency room. Patient verbalizes agreement and understand this plan. Patient discharged home in stable and improved condition. ED Disposition - Plan for ED Patient: Disposition: Home or Assisted Living Diagnosis: Epistaxis, recurrent Instructions: Nosebleed Referrals: Blaise Winslow [Primary Care Provider] - Martin Swift [NON-STAFF] - Additional Instructions: 10 you taking your medications as prescribed. He may take Tylenol as needed for any discomfort associated with the nasal packing. Please call your ENT doctor tomorrow to arrange follow-up in the next few days. He will be able to take the packing out for you. Return the emergency room if you have worsening symptoms or other concerns and would like to be reevaluated.
== END 2019-07-25 16:14 | disposition home or self-care (01) ==
PROVIDERS: Emergency Provider Emergency Medicine; Family Provider Internal Medicine; PCP Internal Medicine
DX: R04.0 Epistaxis (principal); I48.0 Paroxysmal atrial fibrillation; I10 Essential (primary) hypertension; E11.9 Type 2 diabetes mellitus without complications; Z79.01 Long term (current) use of anticoagulants; Z79.82 Long term (current) use of aspirin; Z79.84 Long term (current) use of oral hypoglycemic drugs; Z79.899 Other long term (current) drug therapy
CPT/HCPCS: 30901; 36415; 85025; 99282

== ENCOUNTER 2019-09-08 15:30 | Outpatient (RCR) | payer MEDICARE, BC, SELFPAY ==
[2019-06-18 09:08] VITALS: BMI 36.7
--- NOTE | 2019-09-08 15:55 | HP.PTDCSUM_ITS ---
HP - PT D/C Summary It has been my pleasure to treat LYNETTE WEBSTER under orders from Blaise Winslow, for the diagnosis of L TKA for a total of 63 visit(s). Discharge Date: Please see the following information for a summary of their discharge status. - Subjective Subjective: Minor pain this date - Pain L knee Pain Intensity (Out of 10): 2 - Overall Improvement % Improvement: 85 - Objective Objective/Function: L knee pain 2/10. L knee ROM: 0-4-110. L knee MMT: 5/5 throughout. I with HEP. Rx goals achieved - Goals Goal 1:: Decrease L knee pain x 50% to aid with transfer Goal Progress: Goal Met Goal 2:: Increase L knee ROM x 20 degrees to aid with restoring a more normalize d gait pattern Goal Progress: Progressing Goal 3:: Increase L knee strength x 1 grade to aid with stair negotiation. Goal 4:: I with HEP - Plan Plan: Discharge - D/C Information If there are questions or concerns regarding this patient's physical therapy, please feel free to call me at [phone]. Thank you for the referral of this patient. Sincerely, Octavio Buchanan, PT, ATC
== END 2019-09-08 19:00 | disposition home or self-care (01) ==
LOC: PT 15:30
PROVIDERS: Family Provider Internal Medicine; PCP Internal Medicine; Referring Provider Internal Medicine; Visit Provider Internal Medicine
DX: Z96.652 Presence of left artificial knee joint (principal)
CPT/HCPCS: 97110; 97140; 97530

== ENCOUNTER → 2019-09-16 12:52 | Outpatient (CLI) | payer MEDICARE, BC, SELFPAY ==
[2019-09-08 07:18] VITALS: BMI 36.6
--- NOTE | 2019-09-16 13:00 | BD_ITS ---
STUDY: DUAL ENERGY X-RAY ABSORPTIOMETRY / DXA REASON FOR EXAM: Female, 79 years old. The patient is postmenopausal. Loss of height. TECHNIQUE: Bone Mineral Density (BMD) measurements of lumbar spine and bilateral hips were obtained. COMPARISON: None. FINDINGS: Lumbar Spine (L1-L4): g/cm2 (1.178) / T-score (0.1) / Z-score (1.9) Findings are suggestive of normal bone density with a low fracture risk. Left Femur Total: g/cm2 (0.798) / T-score (-1.7) / Z-score (0.3) Left Femoral Neck: g/cm2 (0.715) / T-score (-2.3) / Z-score (-0.2) Right Femur Total: g/cm2 (0.846) / T-score (-1.3) / Z-score (0.6) Right Femoral Neck: g/cm2 (0.713) / T-score (-2.3) / Z-score (-0.3) BD/Dexa Bone Density Study IMPRESSION: The patient is considered osteopenic as outlined below according to World Phil Organization (WHO) criteria with a high fracture risk. Reference Information: The T-score is the number of standard deviations above or below the standard which is normal for young adults at their peak bone mineral density. The World Health Organization (WHO) interprets the T-scores as follows: Above -1 Normal bone density Between -1 and -2.5 Osteopenia Equal to / or below -2.5 Osteoporosis As a practical clinical guideline, osteopenia may be graded as follows: Mild -1 through -1.5 Moderate -1.6 through -2.0 Severe -2.1 through -2.4 The Z-score is the number of standard deviations above or below age-matched controls. A Z-score of less than -1.5 would be considered abnormal. References: 1. NIH Osteoporosis and Related Bone Diseases http://www.osteo.org 2. International Society for Clinical Densitometry http://www.iscd.org 3. National Osteoporosis Foundation http://www.nof.org Electronically Signed: Soren Cortez, at 12:39 EST , Service support ,
== END ==
PROVIDERS: Family Provider Internal Medicine; PCP Internal Medicine; Referring Provider Internal Medicine; Visit Provider Internal Medicine
DX: N95.8 Other specified menopausal and perimenopausal disorders (principal)
CPT/HCPCS: 77080

== ENCOUNTER → 2019-10-06 11:54 | Outpatient (CLI) | payer MEDICARE, BC, SELFPAY ==
[2019-10-06 11:13] VITALS: BMI 36.6
== END ==
PROVIDERS: Family Provider Internal Medicine; PCP Internal Medicine
DX: R09.82 Postnasal drip (principal)
CPT/HCPCS: 87070; 87205

== ENCOUNTER → 2019-11-23 10:44 | Outpatient (CLI) | payer MEDICARE, BC, SELFPAY ==
[2019-09-08 07:18] VITALS: BMI 36.6
[2019-11-10 08:06] VITALS: BMI 36.6
--- NOTE | 2019-11-26 10:17 | PFT ---
INTRODUCTION: The patient is a 79-year-old female that presents for pulmonary function studies secondary to a diagnosis of respiratory abnormality. Respiratory therapy reports good patient effort. Bronchodilators were used during testing. INTERPRETATION: Forced expiration spirometry demonstrates no evidence of a large airways obstructive ventilatory defect. There was no significant response to aerosolized bronchodilators. Spirograms are of good quality and plateau normally. Body plethysmography was performed and reveals lung volumes to be within normal limits. Diffusing capacity by single breath CO is at the lower limits of normal at 65% of predicted. IMPRESSION: Normal spirometry and lung volumes. Diffusing capacity is at the lower limits of normal.
== END ==
PROVIDERS: Family Provider Internal Medicine; PCP Internal Medicine; Referring Provider Internal Medicine; Visit Provider Internal Medicine
DX: J98.9 Respiratory disorder, unspecified (principal); R06.02 Shortness of breath
CPT/HCPCS: 94060; 94726; 94729

== ENCOUNTER → 2019-11-29 11:00 | Outpatient (CLI) | payer MEDICARE, BC, SELFPAY ==
[2019-11-10 08:06] VITALS: BMI 36.6
== END ==
PROVIDERS: PCP Internal Medicine; Referring Provider Nurse Practitioner Acute Care; Visit Provider Nurse Practitioner Acute Care
DX: Z46.89 Encounter for fitting and adjustment of other specified devices (principal)
CPT/HCPCS: 98960; G0463

== ENCOUNTER 2020-08-13 07:52 | Observation (INO) | payer MEDICARE, BC, SELFPAY ==
[2019-11-10 08:06] VITALS: BMI 36.6
[2020-08-13] VITALS (11 sets, daily range): BP systolic 96–138; BP diastolic 58–90; PULSE 61–100; RESP 15–22; TEMP 36.2–37; O2SAT 94–100; BMI 32.9; BMI 34.7
--- NOTE | 2020-08-13 08:04 | RAD_ITS ---
STUDY: X-RAY CHEST REASON FOR EXAM: Female, 80 years old. chest tightness TECHNIQUE: Single AP portable view of the chest. COMPARISON: 02/15/2018 FINDINGS: Left subclavian dual-lead pacemaker which is unchanged. Poor inspiration with some bibasilar atelectasis. There is no demonstrated pleural abnormality. There is moderate cardiac enlargement. Normal mediastinum and cookie. Normal visualized pulmonary arteries. Normal visualized aortic arch and descending thoracic aorta. Normal visualized thoracic spine. Normal visualized ribs, clavicles, and shoulders. There is no demonstrated abnormality of the visualized soft tissue structures of the upper abdomen. RAD/Chest 1 View (Portable) IMPRESSION: Poor inspiration with some bibasilar atelectasis. Electronically Signed: Kar Arellano MD at 8:42 EST Tel , Service support ,
--- NOTE | 2020-08-13 08:04 | EKG12_ITS ---
Test Reason : ADMISSION Blood Pressure : / mmHG Vent. Rate : 096 BPM Atrial Rate : 127 BPM P-R Int : 000 ms QRS Dur : 164 ms QT Int : 408 ms P-R-T Axes : 000 -51 123 degrees QTc Int : 515 ms Atrial fibrillation Left axis deviation Left bundle branch block Abnormal ECG Confirmed by AIDEN GERBER, MARITZA ([id number]), assistant production editor MICHAELLE SWAN ([id number]) on 08/16/2020 1:59:54 PM Referred By: NAYELI Confirmed By:MARITZA WOLFE MD
--- NOTE | 2020-08-13 08:16 | ED.VISSUMM ---
- ER Visit Summary Date of Service: 08/13/20 Chief Complaint: Chest pain History of Present Illness: The patient is a 80 F resents with chest pain. Is been ongoing for 3 days. She describes a burning sensation in her chest. Nothing seems to make it better or worse. it does make her feel short of breath. This pain does radiate up into her jaw. She denies a history of stents but does have multiple risk factors including high cholesterol and hypertension. She is a non-smoker. She does have atrial fibrillation Xarelto. She has never had a heart attack. Physical Examination: Vital signs reviewed. HEENT exam unremarkable. Heart is regularly irregular rhythm without murmurs. Lungs are clear to auscultation. Abdomen is soft and nontender. Extremities reveal no edema. Peripheral pulses are equal. Skin exam normal. Neurologic exam normal. Test Results: EKG was atrial fibrillation with a wide QRS complex. Rate is 96. There are other nonspecific ST and T wave changes. Chest x-ray is poor inspiration. Creatinine 135, total bilirubin 1.4. Troponin is 0.032. Emergency Department Course and Treatment: The patient's EKG was atrial fibrillation with no ischemic changes. Her troponin is still within the normal range but on the higher end. She did receive aspirin. Her KUNAL score is 2. Patient be admitted to the hospital for further evaluation. Treatment Plan: [] Disposition: Admit Impression: Chest pain This note was generated with [employer] dictation software. It may contain incorrect words, spelling, and punctuation that were not noted in review of the chart prior to signing ED Disposition - Plan for ED Patient: Referrals: Blaise Winslow MD [Primary Care Provider] -
[2020-08-13] MEDS: Aspirin 81 MG TAB.CHEW 324 MG PO (08:21)
[2020-08-13 08:27] LABS: Absolute Lymphocyte Count 1.18 X10^3/uL (0.83-4.51); Absolute Neutrophil Count 7.8 X10^3/uL (2.0-7.7); Basophil# 0.02 X10^3/uL; Basophil% 0.2 % (0-1); Eosinophil# 0.14 X10^3/uL; Eosinophils% 1.4 % (0-5); Hematocrit 39.6 % (37-47); Hemoglobin 12.5 g/dL (12.0-15.0); Lymphocyte # 1.18 X10^3/ul (4.0); Lymphocyte % 11.9 % (19-41); Mean Corp Hgb Conc 31.6 g/dL (32-36); Mean Corpuscular Hgb 31.4 pg (27.0-32.0); Mean Corpuscular Volume 99.5 fL (81-99); Mean Platelet Vol. 10.5 fl (6.2-12.0); Monocyte# 0.78 X10^3/uL; Monocyte% 7.9 % (0-10); NRBC Flagged by Analyzer 0 % (0-5); Neutrophil # 7.76 X10^3/uL (2.7-7.7); Neutrophil % 78.2 % (47-70); Platelet Count 246 K/mm3 (150-450); RBC Distribution Width CV 13.7 % (11.6-14.6); RBC Distribution Width SD 49.8 fl (35.1-43.9); Red Blood Count 3.98 M/mm3 (4.2-5.4); White Blood Count 9.9 K/mm3 (4.4-11.0)
[2020-08-13 08:48] LABS: AST(SGOT) 23 U/L (15-37); Alanine Aminotransfer ALT/SGPT 24 U/L (13-56); Albumin, Serum 3.4 g/dL (3.2-5.0); Alkaline Phosphatase 75 U/L (45-117); Anion Gap 9 (5-15); BUN 35 mg/dL (7-18); BUN/Creat Ratio 25.9 RATIO (10-20); Bilirubin, Direct 0.34 mg/dL (0.00-0.30); Calcium,Total 9.3 mg/dL (8.5-10.1); Chloride 101 mmol/L (98-107); Creatinine, Serum 1.35 mg/dL (0.55-1.02); EST Glomerular Filtration Rate 40 mL/min (>60); Est Glom Filt Rate - Afr Amer 49 mL/min (>60); Estimated Creatinine Clearance 26.73 ml/min; Globulin 4.1 g/dL (2.2-4.2); Glucose 196 mg/dL (74-106); Lipase 201 U/L (73-393); Potassium 3.5 mmol/L (3.5-5.1); Protein, Total 7.5 g/dL (6.4-8.2); Sodium Level 135 mmol/L (136-145)
--- NOTE | 2020-08-13 09:03 | HP.PCM_ITS ---
Problem List (1) Chest pain Status: Acute Qualifiers: Chest pain type: unspecified Qualified Code(s): R07.9 - Chest pain, unspecified (2) Musculoskeletal back pain Status: Acute (3) PAF (paroxysmal atrial fibrillation) Status: Chronic (4) Sinus pause Status: Chronic (5) Status post placement of cardiac pacemaker Status: Chronic (6) Obesity Status: Chronic Qualifiers: Obesity type: unspecified obesity type Obesity classification: unspecified obesity classification Serious obesity comorbidity presence: unspecified whether serious comorbidity present Qualified Code(s): E66.9 - Obesity, unspecified (7) CLIFFORD (obstructive sleep apnea) Status: Chronic (8) History of thyroidectomy, total Status: Resolved (9) Hyperthyroidism Status: Acute (10) HTN (hypertension) Status: Chronic Qualifiers: Hypertension type: essential hypertension Qualified Code(s): I10 - Essential (primary) hypertension (11) HLD (hyperlipidemia) Status: Chronic Qualifiers: Hyperlipidemia type: unspecified Qualified Code(s): E78.5 - Hyperlipidemia, unspecified History of Present Illness Date of Admission: 08/13/20 Chief Complaint: Chest pain The patient is a 80 y/o F w/ PMHx: HTN, HLD, PAF, Obesity, Diabetes mellitus type II, CLIFFORD on BIPAP q HS, PAF, Hx cardiac pauses s/p pacemaker placement who presents to the [facility] ED on 08/13/20 with history of intermittent discomfort noted to be midsternal described as an aching possibly pressure-like sensation, rated 2-3 out of 10 with increased burping sensation but no significant dyspnea, nausea however patient did also concurrently have onset then significant discomfort of her shoulders bilaterally as well as posterior neck and between her scapula reporting that she has been very stressed and attempting to move several items out of her friend's house that she is selling it, frequently unpacking and notes this has been more uncomfortable to her than her chest rating it initially 10 out of 10 in severity, currently 6 out of 7, worse with activity specifically certain movements and with palpation prompting eventual ED presentation. Work-up in the ED included 97.1, heart rate 61, BP 138/90, respiratory rate 16, 98% on room air, CBC with WBC 9.9, hemoglobin 12.5, platelet 246 with left shift noted, CMP with sodium 135, BUN/creatinine 35/1.35, glucose 196, total bilirubin 1.40, direct bilirubin 0.34, AST/ALT 23/24, troponin 0 0.032, lipase 201, chest x-ray poor film with bibasilar atelectasis but otherwise no acute cardiopulmonary findings, EKG with atrial fibrillation, rate controlled. In the ED patient administered aspirin 324 mg p.o. x1. Past Medical History Past Medical History (Chronic Problems): Chronic Problems (Last Reviewed 02/23/20 @ 10:01 by Hayde Aguilera) PAF (paroxysmal atrial fibrillation) (Chronic) Sinus pause (Chronic) Status post placement of cardiac pacemaker (Chronic) Obesity (Chronic) CLIFFORD (obstructive sleep apnea) (Chronic) Fatigue (Chronic) Nonrheumatic aortic valve stenosis (Chronic) Nonrheumatic mitral valve insufficiency (Chronic) Non-rheumatic tricuspid valve insufficiency (Chronic) Paroxysmal atrial fibrillation (Chronic) HTN (hypertension) (Chronic) HLD (hyperlipidemia) (Chronic) Hyperglycemia (Chronic) Medical History: Medical History (Last Reviewed 02/23/20 @ 10:01 by Hayde Aguilera) New onset a-fib (Acute) I48.91 HTN (hypertension) (Chronic) I10 HLD (hyperlipidemia) (Chronic) E78.5 Allergies benazepril [From Lotensin] Allergy (Verified 08/13/20 07:58) Unknown Iodine and Iodide Containing Produc Allergy (Verified 08/13/20 07:58) Shortness of breath meperidine [From Demerol] Allergy (Verified 08/13/20 07:58) Unknown metformin [From Janumet] Allergy (Verified 08/13/20 08:17) Pain in joints propoxyphene [From Darvon] Allergy (Verified 08/13/20 07:58) Unknown sitagliptin [From Janumet] Allergy (Verified 08/13/20 08:17) Pain in joints spironolactone Allergy (Verified 08/13/20 07:58) Unknown hydrochlorothiazide Adverse Reaction (Verified 08/13/20 08:17) NEEDS FOLLOW-UP lisinopril Adverse Reaction (Verified 08/13/20 08:17) NEEDS FOLLOW-UP simvastatin Adverse Reaction (Verified 08/13/20 08:17) Pain in joints PCN Allergy (Uncoded 08/13/20 07:58) Hives sea food Allergy (Uncoded 08/13/20 08:17) Shortness of breath Home Medications: Ambulatory Orders Medication Instructions Recorded Calcitriol [Rocaltrol] 0.25 mcg PO DAILY 02/14/18 Cholecalciferol (Vitamin D3) 2,000 unit PO DAILY 02/14/18 [Vitamin D3] Glimepiride 1 mg PO DAILY 02/14/18 Aspirin [Aspirin, Baby] 81 mg PO DAILY@0800 tab.chew 02/16/18 Pravastatin [Pravachol] 40 mg PO QHS tab 02/16/18 hydrALAZINE [Apresoline] 50 mg PO TID tab 02/16/18 rivaroxaban 15 mg tablet 15 mg PO QDAY #30 tab 03/20/18 Colchicine [Colcrys] 0.6 mg PO BID PRN 07/25/19 Levothyroxine [Synthroid] 100 mcg PO DAILY 07/25/19 Furosemide 40 mg PO BID 08/13/20 Losartan Potassium 25 mg PO QHS 08/13/20 Losartan Potassium [Cozaar] 50 mg PO DAILY 08/13/20 NIFEdipine [Procardia] 30 mg PO QHS 08/13/20 Surgical History: Surgical History (Last Reviewed 02/23/20 @ 10:01 by Hayde Aguilera) History of parathyroidectomy (Resolved) Onset Date: ~2009 Z98.890 X 2 History of thyroidectomy, total (Resolved) Onset Date: ~2009 E89.0 History of tonsillectomy and adenoidectomy Z98.890 History of total hysterectomy Z90.710 Surgical History: - - Left TKR, hysterectomy with bilateral salpingo- oophorectomy, thyroidectomy, tonsillectomy, pacemaker placement, appendectomy. Psychiatric History: No pertinent psych hx FINAL FINISHER History: No pertinent FINAL FINISHER history Lives: Spouse/ Significant Other - Recently remarried, moved into his home. Currently moving her furniture out of a friends house as this friend is planning on selling her home. Smoking Status: Never smoker Tobacco Use: Non-smoker Alcohol: None - *Family History Maternal Family History: Family History (Last Reviewed 02/23/20 @ 10:01 by Hayde Aguilera) Mother Cancer Father Cancer History Items: Cancer - Mother with history of uterine cancer. Paternal Family History: Family History (Last Reviewed 02/23/20 @ 10:01 by Hayde Aguilera) Mother Cancer Father Cancer History Items: Cancer - Father with a history of lung cancer with tobacco use history and coal miners lung. Review of Systems Constitutional: Reports: Malaise, Weakness, Fatigue. Denies: Anorexia, Chills, Fever, Weight Change HEENT: Denies: Head Aches, Sinus Congestion, Sinus Drainage Cardiovascular: Reports: Chest Pain. Denies: Chest Pressure, Chest Tightness, Light Headedness, Orthopnea, Palpitations, Syncope Respiratory: Denies: Cough, Shortness of Breath, Shortness of breath at rest, Shortness of breath upon exertion, Sputum production Gastrointestinal: Denies: Abdominal Pain, Nausea, Vomiting Genitourinary: Denies: Dysuria Musculoskeletal: Reports: Back Pain, Leg Pain, Neck Pain, Shoulder Pain. Denies: Joint Tenderness Skin: Denies: Rash, Wounds Neurological: Denies: Numbness, Tingling, Focal weakness Psychiatric: Denies: Anxiety, Depression, Homicidal Ideations, Suicidal Ideations Hematologic/ Lymphatic: Denies: Easy Bruising, Easy Bleeding VTE Information - Inpt Only VTE Present on Admission: No VTE Mechan Device Prophylaxis: SCD's VTE Pharm Prophylaxis ordered?: Yes Patient Problems: Active and Suspected Problems (Last Reviewed 02/23/20 @ 10:01 by Hayde Aguilera) Chest pain (Acute) Musculoskeletal back pain (Acute) Hyperthyroidism (Acute) Subjective: Patient seated upright in the PCU bed, no acute distress, does have significant discomfort with palpation of her shoulders, neck and muscles between her scapula. Objective: Physical Examination: General: awake, alert, oriented x 3 and cooperative, seated upright in the PCU bed in no apparent distress but does have discomfort with examination. Skin: normal color, turgor, no icterus, cyanosis. HEENT: AT/NC, EOMI, PERRLA, MMM, no carotid bruits or JVD noted, difficult discomfort with palpation of the shoulders and cervical posterior neck region. Lungs: CTA bilaterally, moderate effort, mild decrease BL bases, no rales, ronchi or wheezing. Heart: Irregular, rate controlled; no gallop, rub audible. Abdomen: soft, obese, NTTP, ND, normal BS, no HSM. Extremities: no cyanosis, clubbing, or edema. Patient with significant discomfort with palpation of her back especially between the shoulder blades. Neurological: patient awake, alert, oriented x 3; cognitive function intact; pupils equally reactive to light and accomodation; cranial nerves II-XII grossly normal, moving all 4 extremities, no focal deficits, strength moderately global decreased primarily secondary to musculoskeletal acute discomfort. Psychiatric: affect appears fatigued, noting she is not been sleeping well as she has been very focused on getting rid of furniture in her friend's home so her friend can sell the house, perseverating about it, often sleeping only minimal hours a night, no acute evidence of depressive feelings. - Physical Exam Vitals/I&O's: Vital Signs Temp Pulse Resp BP Pulse Ox 97.1 F L 100 22 H 137/81 H 95 08/13/20 07:59 08/13/20 08:04 08/13/20 08:04 08/13/20 08:04 08/13/20 08:04 Oxygen Delivery Method Room Air Weight: 180 lb Body Mass Index (BMI) 32.9 Laboratory Results 08/13/20 08:10: WBC 9.9, RBC 3.98 L, Hgb 12.5, Hct 39.6, MCV 99.5 H, MCH 31.4, MCHC 31.6 L, RDW Std Deviation 49.8 H, RDW Coeff of Ignacia 13.7, Plt Count 246, MPV 10.5, Immature Gran % (Auto) 0.400, Neut % (Auto) 78.2 H, Lymph % (Auto) 11.9 L , [place] % (Auto) 7.9, Eos % (Auto) 1.4, Baso % (Auto) 0.2, Absolute Neuts (auto) 7.8 H, Absolute Lymphs (auto) 1.18, Nucleated RBC % 0 08/13/20 08:10: Sodium 135 L, Potassium 3.5, Chloride 101, Carbon Dioxide 25.0, Anion Gap 9, BUN 35 H, Creatinine 1.35 H, Estim Creat Clear Calc 26.73, Est GFR (MDRD) Af Amer 49 L, Est GFR (MDRD) Non-Af 40 L, BUN/Creatinine Ratio 25.9 H, Glucose 196 H, Calcium 9.3, Total Bilirubin 1.40 H, Direct Bilirubin 0.34 H, AST 23, ALT 24, Alkaline Phosphatase 75, Troponin I 0.032, Total Protein 7.5, Albumin 3.4, Globulin 4.1, Lipase 201 Assessment/Plan All Active Problems (Last Reviewed 02/23/20 @ 10:01 by Hayde Aguilera) Chest pain (Acute) Musculoskeletal back pain (Acute) Hemoptysis (Acute) Hypersomnolence (Acute) History of parathyroidectomy (Resolved ~2009) History of thyroidectomy, total (Resolved ~2009) New onset a-fib (Acute) Hyperthyroidism (Acute) Abnormal cardiac enzyme level (Acute) Cardiac murmur (Acute) Carotid bruit (Acute) The patient is a 80 y/o F w/ PMHx: HTN, HLD, PAF, Obesity, Diabetes mellitus type II, CLIFFORD on BIPAP q HS, PAF, Hypothyroidism, Hx cardiac pauses s/p pacemaker placement who presents to the [facility] ED on 08/13/20 with history of intermittent discomfort noted to be midsternal described as an aching possibly pressure-like sensation, rated 2-3 out of 10 with increased burping sensation with concurrent notable back discomfort worse with palpation or movements with recent frequent bending over and moving items. 1. Chest Pain, do suspect some component of musculoskeletal: EKG in ED rate controlled atrial fibrillation without acute evidence of ischemia, CXR w/ bibasilar atelectasis otherwise no acute cardiopulmonary findings, initial trop 0.032. Will admit to PCU, place on a monitored bed to assure no acute myocardial infarction with serial cardiac enzymes and EKGs. We will continue cardiac enzyme trending and repeat EKGs as noted and if elevations concerning or EKG changes will consult cardiology for assessment. If enzymes remain similar with no further EKG changes would plan 08/14/2020 a.m. cardiac stress testing. Additionally patient with obvious musculoskeletal discomfort on examination and history of recent moving, frequently unpacking will administer tizanidine 2 mg IV x1 to assess response and initiate BenGay to the back at the regions most sensitive. Magnesium level requested. FLP in AM. ASA, NG, morphine. 2. Diabetes mellitus type II: Hold oral home regimen, ADA diet n.p.o. status, accu checks w/ ISS. 3. PAF: We will continue patient home Xarelto regimen, not on any rate or rhythm agent, s/p pacemaker placement. 4. History of Sinus Pauses: Reports prior sinus pauses events, one 7 seconds while admitted 2018, s/p pacemaker placement, will interrogate. 5. Hypertension: Continue home regimen including Lasix, hydralazine, losartan, nifedipine with hold parameters as needed, PRN hydralazine. 6. Hyperlipidemia: Continue home statin regimen. AM FLP. 7. Obesity: Weight loss and lifestyle changes encouraged. 8. Hypothyroidism: Status post thyroidectomy, will continue patient Synthroid regimen. 9. CLIFFORD: Continue BIPAP q HS. 10. DVT prophylaxis: SCDs, continue home Xarelto regimen. OBSV E&M: 44127 Initial observation care L3
--- NOTE | 2020-08-13 10:15 | EKG12_ITS ---
Test Reason : CP Blood Pressure : / mmHG Vent. Rate : 096 BPM Atrial Rate : 096 BPM P-R Int : 000 ms QRS Dur : 162 ms QT Int : 420 ms P-R-T Axes : 000 -51 095 degrees QTc Int : 530 ms Atrial Fibrillation with LBBB Left axis deviation Non-specific intra-ventricular conduction block Lateral infarct , age undetermined Inferior infarct , age undetermined Abnormal ECG Confirmed by COLE GERBER, DIPESH ([id number]), index editor MICHAELLE SWAN ([id number]) on 08/23/2020 10:52:33 AM Referred By: MARITZA Confirmed By:DIPESH GALVAN MD
[2020-08-13 11:20] LABS: Bedside Glucose 112 mg/dL (70-110)
[2020-08-13 11:38] LABS: Magnesium 2.2 mg/dL (1.6-2.6)
[2020-08-13] MEDS: Furosemide 40 MG Tablet PO ×2 (12:20→22:18)
[2020-08-13] MEDS: Losartan Potassium 50 MG Tablet PO (12:20)
[2020-08-13] MEDS: Acetaminophen 325 MG Tablet 650 MG PO (12:20)
[2020-08-13 15:24] LABS: Bacteria 0 SEEN /hpf (None Seen); Mucous, Urine 0 SEEN /hpf (<or=2+); Red Blood Cells-Urine 0 SEEN /hpf (0-5)
[2020-08-13 15:42] LABS: Color, Urine Straw (Yellow); Glucose, Dipstick Normal (Normal); Ketone-Dipstick Negative (Negative); Leukocyte Esterase-Dipstick Negative /ul (Negative); Nitrite-Dipstick Negative (Negative); Occult Blood-Urine 10 /ul (Negative); Protein-Dipstick Negative (Negative); Specific Gravity, Urine 1.005 (1.002-1.030); Urine Bilirubin Dipstick Negative (Negative); Urine Clarity Clear (Clear); Urine Urobilinogen Normal (Normal)
[2020-08-13 16:09] LABS: Squamous Epithelial Cells - UA 0-5 SEEN /hpf (5-10)
[2020-08-13 16:10] LABS: White Blood Cells 0-5 SEEN /hpf (0-5)
[2020-08-13] MEDS: tiZANidine HCl 2 MG Tablet PO (16:59)
[2020-08-13] MEDS: Rivaroxaban 15 MG Tablet PO (16:59)
[2020-08-13 17:20] LABS: Bedside Glucose 111 mg/dL (70-110)
[2020-08-13] MEDS: MENTHOL 226.8 GM JAR 1 APPLIC TP (22:17)
[2020-08-13] MEDS: hydrALAZINE 50 MG Tablet PO (22:18)
[2020-08-13] MEDS: Losartan Potassium 25 MG Tablet PO (22:19)
[2020-08-13] MEDS: MELATONIN 3 MG TABLET PO (22:19)
[2020-08-13] MEDS: Pravastatin 40 MG Tablet PO (22:19)
[2020-08-13] MEDS: NIFEdipine 30 MG Tablet PO (22:19)
[2020-08-13 22:30] LABS: Bedside Glucose 150 mg/dL (70-110)
[2020-08-13 23:04] LABS: Probe Check PASS; Specimen Processing Control PASS
[2020-08-14] VITALS (7 sets, daily range): BP systolic 122–134; BP diastolic 51–59; PULSE 60–61; RESP 18; TEMP 36.7–37.1; O2SAT 93–98
--- NOTE | 2020-08-14 05:55 | EKG12_ITS ---
Test Reason : AM EKG Blood Pressure : / mmHG Vent. Rate : 061 BPM Atrial Rate : 061 BPM P-R Int : 238 ms QRS Dur : 172 ms QT Int : 472 ms P-R-T Axes : 043 -50 097 degrees QTc Int : 475 ms Atrial-paced rhythm with prolonged AV conduction Left axis deviation Left bundle branch block Abnormal ECG Confirmed by AIDEN GERBER, MARITZA ([id number]), burner technician MICHAELLE SWAN ([id number]) on 08/16/2020 1:54:23 PM Referred By: DR TYLER Confirmed By:MARITZA WOLFE MD
[2020-08-14] MEDS: hydrALAZINE 50 MG Tablet PO (06:36)
[2020-08-14] MEDS: Aspirin 81 MG TAB.CHEW PO (06:37)
[2020-08-14] MEDS: Levothyroxine 100 MCG Tablet PO (06:37)
[2020-08-14] MEDS: MENTHOL 226.8 GM JAR 1 APPLIC TP (06:37)
[2020-08-14] MEDS: Losartan Potassium 50 MG Tablet PO (06:40)
[2020-08-14 06:51] LABS: Bedside Glucose 108 mg/dL (70-110)
[2020-08-14 07:07] LABS: Absolute Lymphocyte Count 1.65 X10^3/uL (0.83-4.51); Absolute Neutrophil Count 3.8 X10^3/uL (2.0-7.7); Basophil# 0.02 X10^3/uL; Basophil% 0.3 % (0-1); Eosinophil# 0.32 X10^3/uL; Eosinophils% 4.9 % (0-5); Hematocrit 33.6 % (37-47); Hemoglobin 10.8 g/dL (12.0-15.0); Lymphocyte # 1.65 X10^3/ul (4.0); Lymphocyte % 25.1 % (19-41); Mean Corp Hgb Conc 32.1 g/dL (32-36); Mean Corpuscular Hgb 31.8 pg (27.0-32.0); Mean Corpuscular Volume 98.8 fL (81-99); Mean Platelet Vol. 10.5 fl (6.2-12.0); Monocyte# 0.73 X10^3/uL; Monocyte% 11.1 % (0-10); NRBC Flagged by Analyzer 0 % (0-5); Neutrophil # 3.84 X10^3/uL (2.7-7.7); Neutrophil % 58.3 % (47-70); Platelet Count 223 K/mm3 (150-450); RBC Distribution Width CV 13.9 % (11.6-14.6); RBC Distribution Width SD 50.4 fl (35.1-43.9); White Blood Count 6.6 K/mm3 (4.4-11.0)
[2020-08-14 07:32] LABS: ALB/GLOB Ratio 0.8 RATIO (0.9-2.4); AST(SGOT) 17 U/L (15-37); Alanine Aminotransfer ALT/SGPT 19 U/L (13-56); Albumin, Serum 2.9 g/dL (3.2-5.0); Alkaline Phosphatase 61 U/L (45-117); Anion Gap 10 (5-15); BUN 40 mg/dL (7-18); BUN/Creat Ratio 28.8 RATIO (10-20); Calcium,Total 9.3 mg/dL (8.5-10.1); Chloride 104 mmol/L (98-107); Cholesterol 114 mg/dL (200); Creatinine, Serum 1.39 mg/dL (0.55-1.02); EST Glomerular Filtration Rate 39 mL/min (>60); Est Glom Filt Rate - Afr Amer 47 mL/min (>60); Estimated Creatinine Clearance 24.76 ml/min; Globulin 3.6 g/dL (2.2-4.2); Glucose 93 mg/dL (74-106); High Density Lipoprotein 47 mg/dL; Potassium 3.3 mmol/L (3.5-5.1); Protein, Total 6.5 g/dL (6.4-8.2); Sodium Level 140 mmol/L (136-145); Triglycerides 71 mg/dL; Very Low Density Lipoprotein 14 mg/dL (5-40)
[2020-08-14] MEDS: Furosemide 40 MG Tablet PO (11:10)
[2020-08-14] MEDS: Calcitriol 0.25 MCG Capsule PO (11:11)
[2020-08-14 11:25] LABS: Bedside Glucose 117 mg/dL (70-110)
--- NOTE | 2020-08-14 11:43 | STRESSREP ---
Stress Test Report Pharmacologic myocardial perfusion stress test. 80-year-old lady with a history of chest pain. Stress protocol: Resting EKG demonstrates normal sinus rhythm with a rate of 61 bpm left bundle branch block is noted. Resting blood pressure is 126/72 mmHg. 0.4 mg of regadenoson was infused per usual protocol followed by rapid intravenous saline flush injection continuous EKG monitoring was performed. The maximum heart rate attained was 75 bpm which was 53% of max impacted heart rate the maximum workload was 1 metabolic equivalent. At rest there were no ST or T wave changes noted other than the left bundle branch block pattern present. At peak infusion left bundle branch block pattern persisted. Resting blood pressures 126/72 with a final blood pressure 118/68. Myocardial perfusion protocol. 12.0 mCi of technetium 99m sestamibi was injected at rest. 0.4 mg of regadenoson was infused per usual protocol. At peak infusion 33.6 mCi of technetium 99m sestamibi was injected stress images were obtained stress and rest images are reconstructed and compared in the short axis vertical long horizontal long axis. Gated images were unable to be obtained Perfusion SPECT analysis: Review of the stress images demonstrate normal uptake of tracer noted in all areas of the myocardium the resting images similar demonstrate normal uptake of tracer noted in all areas of the myocardium. No obvious reversibility is noted to suggest ischemia. Conclusion: Normal pharmacologic myocardial perfusion stress test. Left bundle branch block pattern noted.
--- NOTE | 2020-08-14 12:45 | PCM.DC ---
- Discharge Diagnoses Current Active Problems: Current Active and Chronic Problems (Last Reviewed 02/23/20 @ 10:01 by Hayde Aguilera) PAF (paroxysmal atrial fibrillation) (Chronic) Chest pain (Acute) Sinus pause (Chronic) Status post placement of cardiac pacemaker (Chronic) Musculoskeletal back pain (Acute) Obesity (Chronic) CLIFFORD (obstructive sleep apnea) (Chronic) Hyperthyroidism (Acute) HTN (hypertension) (Chronic) HLD (hyperlipidemia) (Chronic) You will use the following diet at home:: Cardiac Your food should be the consistency of: Regular Your liquids should be the consistency of: Regular/Thin Discharge Activity: Return to Normal Activity Call your doctor if you observe: Chest pain Additional Instructions: Talk to your primary care provider about having an abdominal ultrasound arranged as an outpatient. Allergies/Adverse Reactions: Allergies benazepril [From Lotensin] Allergy (Verified 08/13/20 07:58) Unknown Iodine and Iodide Containing Produc Allergy (Verified 08/13/20 07:58) Shortness of breath meperidine [From Demerol] Allergy (Verified 08/13/20 07:58) Unknown metformin [From Janumet] Allergy (Verified 08/13/20 08:17) Pain in joints propoxyphene [From Darvon] Allergy (Verified 08/13/20 07:58) Unknown sitagliptin [From Janumet] Allergy (Verified 08/13/20 08:17) Pain in joints spironolactone Allergy (Verified 08/13/20 07:58) Unknown hydrochlorothiazide Adverse Reaction (Verified 08/13/20 08:17) NEEDS FOLLOW-UP lisinopril Adverse Reaction (Verified 08/13/20 08:17) NEEDS FOLLOW-UP metoprolol Adverse Reaction (Verified 08/13/20 10:30) Shortness of breath simvastatin Adverse Reaction (Verified 08/13/20 08:17) Pain in joints PCN Allergy (Uncoded 08/13/20 07:58) Hives sea food Allergy (Uncoded 08/13/20 08:17) Shortness of breath Medications to take at Discharge Calcitriol [Rocaltrol] 0.25 mcg PO DAILY 02/14/18 Cholecalciferol (Vitamin D3) [Vitamin D3] 2,000 unit PO DAILY 02/14/18 Glimepiride 1 mg PO DAILY 02/14/18 Aspirin [Aspirin, Baby] 81 mg PO DAILY@0800 tab.chew 02/16/18 Pravastatin [Pravachol] 40 mg PO QHS tab 02/16/18 hydrALAZINE [Apresoline] 50 mg PO TID tab 02/16/18 rivaroxaban 15 mg tablet 15 mg PO QDAY #30 tab 03/20/18 Colchicine [Colcrys] 0.6 mg PO BID PRN 07/25/19 Levothyroxine [Synthroid] 100 mcg PO DAILY 07/25/19 Furosemide 40 mg PO BID 08/13/20 Losartan Potassium 25 mg PO QHS 08/13/20 Losartan Potassium [Cozaar] 50 mg PO DAILY 08/13/20 NIFEdipine [Procardia] 30 mg PO QHS 08/13/20 Pantoprazole Sodium [Protonix] 20 mg PO DAILY #30 tab 08/14/20 The following prescriptions were given: Pantoprazole Sodium [Protonix] 20 mg PO DAILY #30 tab Transmission Status: Pending to [id number] Primary Care Physician: Blaise Winslow MD [Primary Care Provider] - Please follow up with your Primary Care Physician in: 1-2 weeks Test Results: Test results from this visit will be discussed in further detail at your follow-up appointment, if applicable. Please Follow Up With: Kenroy Galarza NP, HOME IMPROVEMENT CONTRACTOR-C When: 2 weeks Proposed Discharge Date: 08/14/20
--- NOTE | 2020-08-14 13:35 | PCM.DC.SUM ---
<Richar Ordoñez - Last Filed: 08/14/20 13:35> Discharge Date and Diagnosis - Problem List Patient Problems: Active and Suspected Problems (Last Reviewed 02/23/20 @ 10:01 by Hayde Aguilera) Chest pain (Acute) Musculoskeletal back pain (Acute) Hyperthyroidism (Acute) Date of Admission: 08/13/20 Date of Discharge: 08/14/20 - Primary Discharge Diagnosis Acute Problems: Active Problems (Last Reviewed 02/23/20 @ 10:01 by Hayde Aguilera) Chest pain - epigastric pain 2/2 GERD Indeterminate troponin Elevated Bili - Secondary Discharge Diagnosis Chronic Problems: Chronic Problems (Last Reviewed 02/23/20 @ 10:01 by Hayde Aguilera) PAF (paroxysmal atrial fibrillation) (Chronic) Sinus pause (Chronic) Status post placement of cardiac pacemaker (Chronic) Obesity (Chronic) CLIFFORD (obstructive sleep apnea) (Chronic) Fatigue (Chronic) Nonrheumatic aortic valve stenosis (Chronic) Nonrheumatic mitral valve insufficiency (Chronic) Non-rheumatic tricuspid valve insufficiency (Chronic) Paroxysmal atrial fibrillation (Chronic) HTN (hypertension) (Chronic) HLD (hyperlipidemia) (Chronic) Hyperglycemia (Chronic) Hospital Course and Treatment Imaging Results: 08/14/20 05:55 Nuclear Stress Test - Chemical [NM] AM (NON MEDS) Conclusion: Normal pharmacologic myocardial perfusion stress test. Left bundle branch block pattern noted. RAD/Chest 1 View (Portable) IMPRESSION: Poor inspiration with some bibasilar atelectasis. Operations: None Procedures: Stress test Summary of Care Provided: Hospital Course: The patient is a 80 year old F past medical history of atrial fibrillation, pacemaker, obstructive sleep apnea, hypertension, hyperlipidemia, obesity, who presented to the emergency room with complaints of chest pain. This is a midepigastric pain that radiated straight through to her back and was associated with burping. In the ER EKG was negative, troponin was indeterminate, chest x-ray was negative. Bilirubin was elevated at 1.40, direct bili was elevated at 0.34. She is admitted for chest pain work-up. Troponin remained indeterminate. She had no events on telemetry. She was taken for stress test the following day which was negative. Patient admitted to recently starting the keto diet and increase her fat intake. Given the nature of her midepigastric pain, elevated bili, increased burping, and her increased fatty diet I suspect there is a biliary component to this. We advised her to talk to her PCP about obtaining a right upper quadrant ultrasound. At this time her right upper quadrant is nontender and she has minimal pain. I have placed her on Protonix for possible associated acid reflux. I advised her to follow-up with her PCP in 1 to 2 weeks. She should have a CMP checked at follow-up. As she had an indeterminate troponin I have advised her to follow-up with her yarn dumper in 2 weeks. She was discharged home in stable condition. This patient was seen by Richar Ordoñez PA-C under the supervision of Doctor Ismael. [] Patient Problems: Active and Suspected Problems (Last Reviewed 02/23/20 @ 10:01 by Hayde Aguilera) Chest pain (Acute) Musculoskeletal back pain (Acute) Hyperthyroidism (Acute) - Physical Exam Vitals/I&O's: Vital Signs Temp Pulse Resp BP Pulse Ox 98.1 F 61 18 125/51 H 96 08/14/20 11:04 08/14/20 11:04 08/14/20 11:04 08/14/20 11:04 08/14/20 07:10 Oxygen Delivery Method Room Air Weight: 185 lb 10.067 oz Body Mass Index (BMI) 34.7 Intake and Output for Last 24 Hours 08/12/20 08/13/20 08/14/20 23:59 23:59 23:59 Intake Total 720 / 720 45 / 45 Output Total 0 / 0 Balance 720 / 720 45 / 45 General: Alert, Oriented x3, Cooperative HEENT: Atraumatic, PERRLA, EOMI, Normocephalic Neck: Supple, No JVD, Negative Carotid Bruits Lungs: Clear to auscultation, Normal air movement Cardiovascular: Regular rate, No murmurs Abdomen: Bowel Sounds Present, Soft, Non Tender Extremities: No edema, Capillary Refill Less than 3 Seconds Skin: No rashes, No breakdown Musculoskeletal: No Tenderness to Palpation of Joints or Extremities Neurological: Cranial nerves II-XII grossly intact Psych/Mental Status: Normal Affect, Appropriate, Alert and oriented to time, place, person, mood and affect Laboratory Results 08/13/20 14:00: Troponin I 0.085 H 08/13/20 14:55: Urine Color Straw, Urine Clarity Clear, Urine pH 6.0, Ur Specific Hanahan 1.005, Urine Protein Negative, Urine Glucose (UA) Normal, Urine Ketones Negative, Urine Occult Blood 10 H, Urine Nitrite Negative, Urine Bilirubin Negative, Urine Urobilinogen Normal, Ur Leukocyte Esterase Negative, Urine RBC 0 SEEN, Urine WBC 0-5 SEEN, Ur Squamous Epith Cells 0-5 SEEN, Urine Bacteria 0 SEEN, Urine Mucus 0 SEEN 08/13/20 16:57: POC Glucose 111 H 08/13/20 17:10: Troponin I 0.099 H 08/13/20 20:00: Troponin I 0.106 H 08/13/20 21:25: COVID-19 (ALEXANDRE) Negative 08/13/20 22:13: POC Glucose 150 H 08/13/20 23:16: Troponin I 0.081 H 08/14/20 06:33: WBC 6.6, RBC 3.40 L, Hgb 10.8 L, Hct 33.6 L, MCV 98.8, MCH 31.8, MCHC 32.1, RDW Std Deviation 50.4 H, RDW Coeff of Ignacia 13.9, Plt Count 223, MPV 10.5, Immature Gran % (Auto) 0.300, Neut % (Auto) 58.3, Lymph % (Auto) 25.1, [place] % (Auto) 11.1 H, Eos % (Auto) 4.9, Baso % (Auto) 0.3, Absolute Neuts (auto) 3.8, Absolute Lymphs (auto) 1.65, Nucleated RBC % 0 08/14/20 06:33: Sodium 140, Potassium 3.3 L, Chloride 104, Carbon Dioxide 26.0, Anion Gap 10, BUN 40 H, Creatinine 1.39 H, Estim Creat Clear Calc 24.76, Est GFR (MDRD) Af Amer 47 L, Est GFR (MDRD) Non-Af 39 L, BUN/Creatinine Ratio 28.8 H, Glucose 93, Calcium 9.3, Total Bilirubin 1.10 H, AST 17, ALT 19, Alkaline Phosphatase 61, Total Protein 6.5, Albumin 2.9 L, Globulin 3.6, Albumin/Globulin Ratio 0.8 L, Triglycerides 71, Cholesterol 114, LDL Cholesterol 53, VLDL Cholesterol 14, HDL Cholesterol 47 08/14/20 06:34: POC Glucose 108 08/14/20 11:14: POC Glucose 117 H Current Medications Acetaminophen (Acetaminophen 325 Mg Tablet) 650 mg PO Q6H PRN PRN PRN Reason: Pain Score 1-10/Temp > 100.7 F Last Admin: 08/13/20 12:20 Dose: 650 mg Documented by: Al Hydroxide/Mg Hydroxide (Mag Hydrox/Al Hydrox/Simeth 30 Ml Udc) 30 ml PO Q6H PRN PRN PRN Reason: Gastric Burning Albuterol Sulfate (Albuterol 2.5 Mg/3 Ml Vial.Neb.) 2.5 mg INHALATION Q2H PRN PRN PRN Reason: Dyspnea, wheezing Aspirin (Aspirin 81 Mg Tab.Chew) 81 mg PO DAILY@0800 [facility] Last Admin: 08/14/20 06:37 Dose: 81 mg Documented by: Calcitriol (Calcitriol 0.25 Mcg Capsule) 0.25 mcg PO DAILY [facility] Last Admin: 08/14/20 11:11 Dose: 0.25 mcg Documented by: Cholecalciferol (Cholecalciferol (Vit D3) 1,000 Unit (25mcg)) 2,000 unit PO DAILY [facility] Last Admin: 08/14/20 11:11 Dose: 2,000 unit Documented by: Colchicine (Colchicine 0.6 Mg Tablet) 0.6 mg PO BID PRN PRN PRN Reason: gout Furosemide (Furosemide 40 Mg Tablet) 40 mg PO BID [facility] Last Admin: 08/14/20 11:10 Dose: 40 mg Documented by: Guaifenesin (Guaifenesin 10 Ml Udc (200mg/10ml)) 20 ml PO Q4H PRN PRN PRN Reason: COUGH Hydralazine HCl (Hydralazine 50 Mg Tablet) 50 mg PO TID [facility] Last Admin: 08/14/20 06:36 Dose: 50 mg Documented by: Hydralazine HCl (Hydralazine 20 Mg/Ml Vial) 10 mg IV Q4H PRN PRN PRN Reason: SBP > 160 Sodium Chloride () 250 mls @ 15 mls/hr IV .[id number] PRN PRN Reason: Saline Flush Sodium Chloride () 250 mls @ 15 mls/hr IV .[id number] PRN PRN Reason: Additional IVPB Infusion Insulin Human Lispro (Insulin Lispro 100 Unit/Ml Insuln.Pen) 0 unit SC [facility]; Protocol Last Admin: 08/14/20 11:37 Dose: Not Given Documented by: Levothyroxine Sodium (Levothyroxine 100 Mcg Tablet) 100 mcg PO DAILY@0600 [facility] Last Admin: 08/14/20 06:37 Dose: 100 mcg Documented by: Losartan Potassium (Losartan Potassium 50 Mg Tablet) 50 mg PO DAILY [facility] Last Admin: 08/14/20 06:40 Dose: 50 mg Documented by: Losartan Potassium (Losartan Potassium 25 Mg Tablet) 25 mg PO QHS [facility] Last Admin: 08/13/20 22:19 Dose: 25 mg Documented by: Magnesium Hydroxide (Magnesium Hydroxide 30 Ml Udc) 30 ml PO DAILY PRN PRN PRN Reason: Constipation Melatonin (Melatonin 3 Mg Tablet) 3 mg PO QHS [facility] Last Admin: 08/13/20 22:19 Dose: 3 mg Documented by: Menthol (Menthol 226.8 Gm Jar) 1 applic TP TID [facility] Last Admin: 08/14/20 06:37 Dose: 1 applic Documented by: Morphine Sulfate (Morphine 2 Mg/Ml Syringe) 2 mg IV Q3H PRN PRN PRN Reason: Pain Score 6-10 Nifedipine (Nifedipine 30 Mg Tablet) 30 mg PO QHS [facility] Last Admin: 08/13/20 22:19 Dose: 30 mg Documented by: Nitroglycerin (Nitroglycerin (Inpatient Use) 0.4 Mg Tab.Subl) 0.4 mg SUBLINGUAL Q5M PRN PRN Reason: CARDIAC/CHEST PAIN Ondansetron HCl (Ondansetron 4 Mg/2 Ml Vial) 4 mg IV Q8H PRN PRN PRN Reason: NAUSEA/VOMITING Oxycodone HCl (Oxycodone 5 Mg Tablet) 5 mg PO Q4H PRN PRN PRN Reason: Pain Score 4-5 Pravastatin Sodium (Pravastatin 40 Mg Tablet) 40 mg PO QHS [facility] Last Admin: 08/13/20 22:19 Dose: 40 mg Documented by: Prochlorperazine Edisylate (Prochlorperazine 10 Mg/2 Ml Vial) 5 mg IV Q4H PRN PRN PRN Reason: Breakthrough Nausea/Vomiting Psyllium Hydrophilic Mucilloid (Psyllium 1 Packet) 1 packet PO DAILY PRN PRN PRN Reason: Constipation Rivaroxaban (Rivaroxaban 15 Mg Tablet) 15 mg PO DINNER [facility] Last Admin: 08/13/20 16:59 Dose: 15 mg Documented by: Senna/Docusate Sodium (Senna/Docusate Sodium 1 Tablet) 2 tablet PO BID PRN PRN PRN Reason: Constipation Sodium Chloride (0.9% Saline Lock 10 Ml Syringe) 10 - 40 ml IV UD PRN PRN Reason: SALINE FLUSH Throat Lozenges (Benzocaine/Menthol 1 Lozenge) 1 lozenge MUCOUS MEM Q2H PRN PRN PRN Reason: SORE THROAT Discharge Diet: Low fat/ Low Cholesterol, 2000 mg Sodium Diet Discharge Activity: Return to Normal Activity Call your doctor if you observe: Chest pain Home Medications: Medications to take at Discharge Calcitriol [Rocaltrol] 0.25 mcg PO DAILY 02/14/18 Cholecalciferol (Vitamin D3) [Vitamin D3] 2,000 unit PO DAILY 02/14/18 Glimepiride 1 mg PO DAILY 02/14/18 Aspirin [Aspirin, Baby] 81 mg PO DAILY@0800 tab.chew 02/16/18 Pravastatin [Pravachol] 40 mg PO QHS tab 02/16/18 hydrALAZINE [Apresoline] 50 mg PO TID tab 02/16/18 rivaroxaban 15 mg tablet 15 mg PO QDAY #30 tab 03/20/18 Colchicine [Colcrys] 0.6 mg PO BID PRN 07/25/19 Levothyroxine [Synthroid] 100 mcg PO DAILY 07/25/19 Furosemide 40 mg PO BID 08/13/20 Losartan Potassium 25 mg PO QHS 08/13/20 Losartan Potassium [Cozaar] 50 mg PO DAILY 08/13/20 NIFEdipine [Procardia] 30 mg PO QHS 08/13/20 Pantoprazole Sodium [Protonix] 20 mg PO DAILY #30 tab 08/14/20 Following Prescriptions Were Given to Patient: Pantoprazole Sodium [Protonix] 20 mg PO DAILY #30 tab Transmission Status: Received by [id number] Primary Care Physician: Blaise Winslow MD [Primary Care Provider] - Please follow up with your Primary Care Physician in: 1-2 weeks Please Follow Up With: Kenroy Galarza NP, CLERK OF SCALES-C When: 2 weeks Disposition: Home Minutes spent on discharge:: 35 Patient Condition:: Stable Medical Necessity - Tobacco Use Smoking Status: Never smoker Tobacco Use: Non-smoker Meaningful Use Info Meaningful Use Diagnoses (Choose all that apply): None applicable <Lamonte Guevara - Last Filed: 08/14/20 16:24> Discharge Date and Diagnosis - Primary Discharge Diagnosis Acute Problems: Active Problems (Last Reviewed 02/23/20 @ 10:01 by Hayde Aguilera) Chest pain (Acute) Musculoskeletal back pain (Acute) Hyperthyroidism (Acute) - Secondary Discharge Diagnosis Chronic Problems: Chronic Problems (Last Reviewed 02/23/20 @ 10:01 by Hayde Aguilera) PAF (paroxysmal atrial fibrillation) (Chronic) Sinus pause (Chronic) Status post placement of cardiac pacemaker (Chronic) Obesity (Chronic) CLIFFORD (obstructive sleep apnea) (Chronic) Fatigue (Chronic) Nonrheumatic aortic valve stenosis (Chronic) Nonrheumatic mitral valve insufficiency (Chronic) Non-rheumatic tricuspid valve insufficiency (Chronic) Paroxysmal atrial fibrillation (Chronic) HTN (hypertension) (Chronic) HLD (hyperlipidemia) (Chronic) Hyperglycemia (Chronic) Hospital Course and Treatment Imaging Results: 08/14/20 11:45 Abdomen Limited [US] Urgent Summary of Care Provided: This patient was seen in conjunction with Richar ANDERSON. I have independently interviewed and examined the patient and reviewed pertinent history, examination findings, laboratory and plan of management. I have reviewed the note and agree with the documented findings with the few additional points. In brief, patient is admitted for midepigastric/lower sternal chest pain with radiation to the back, associated with burping. Bilirubin is slightly elevated 1.4. Her symptoms are more after she was on keto diet. Advised low-fat diet. Her troponins were indeterminate. Sinus rhythm on telemetry. Patient had nuclear stress test which reported no stress-induced ischemia. Advised to have right upper quadrant sonogram as an outpatient. No right upper quadrant tenderness or right upper quadrant pain. Discharge medication reconciliation done. Discharge follow-up instructions completed. Discharge process discussed with the patient and all questions were answered to patient's satisfaction. Total time spent, exact 35 minutes on discharge meds reconciliation, examination, coordination of care with nurses and ancillary staff, review of imaging and blood test and discussion with the patient on follow-up instructions I have discussed my assessment with Richar ANDERSON and orders have been reviewed. [] Objective: Seen and examined. Patient had 3-4 times burping and that increased in intensity after she is on keto diet. Denies difficult chest pain. Furthermore patient had a stress test in the morning and she did not had chest pain or shortness of breath or arrhythmia during stress test. Physical exam General: Alert, Oriented x3, Cooperative HEENT: Atraumatic, PERRLA, EOMI, Normocephalic Oral: No Gingival or Mucosal Lesions/ Ulcerations Neck: Supple, No JVD, Negative Carotid Bruits Lungs: Air entry diminished in bilateral lung bases. No crepitation/rhonchi Cardiovascular: Regular rate, Regular Rhythm, Normal S1, Normal S2, No murmurs Abdomen: Bowel Sounds Present, Soft, Non Tender, Non-Distended : No renal angle tenderness. No suprapubic tenderness. Extremities: No edema, Capillary Refill Less than 3 Seconds Skin: No rashes, No breakdown Musculoskeletal: No Tenderness to Palpation of Joints or Extremities Neurological: Cranial nerves II-XII grossly intact, Deep Tendon Reflexes 2+/4 and Symmetrical, Neuro grossly intact Psych/Mental Status: Normal Affect, Appropriate. - Physical Exam Vitals/I&O's: Vital Signs Temp Pulse Resp BP Pulse Ox 98.1 F 61 18 125/51 H 98 08/14/20 11:04 08/14/20 11:04 08/14/20 11:04 08/14/20 11:04 08/14/20 11:04 Oxygen Delivery Method Room Air Weight: 185 lb 10.067 oz Body Mass Index (BMI) 34.7 Intake and Output for Last 24 Hours 08/12/20 08/13/20 08/14/20 23:59 23:59 23:59 Intake Total 720 / 720 45 / 45 Output Total 0 / 0 Balance 720 / 720 45 / 45 Laboratory Results 08/13/20 16:57: POC Glucose 111 H 08/13/20 17:10: Troponin I 0.099 H 08/13/20 20:00: Troponin I 0.106 H 08/13/20 21:25: COVID-19 (ALEXANDRE) Negative 08/13/20 22:13: POC Glucose 150 H 08/13/20 23:16: Troponin I 0.081 H 08/14/20 06:33: WBC 6.6, RBC 3.40 L, Hgb 10.8 L, Hct 33.6 L, MCV 98.8, MCH 31.8, MCHC 32.1, RDW Std Deviation 50.4 H, RDW Coeff of Ignacia 13.9, Plt Count 223, MPV 10.5, Immature Gran % (Auto) 0.300, Neut % (Auto) 58.3, Lymph % (Auto) 25.1, [place] % (Auto) 11.1 H, Eos % (Auto) 4.9, Baso % (Auto) 0.3, Absolute Neuts (auto) 3.8, Absolute Lymphs (auto) 1.65, Nucleated RBC % 0 08/14/20 06:33: Sodium 140, Potassium 3.3 L, Chloride 104, Carbon Dioxide 26.0, Anion Gap 10, BUN 40 H, Creatinine 1.39 H, Estim Creat Clear Calc 24.76, Est GFR (MDRD) Af Amer 47 L, Est GFR (MDRD) Non-Af 39 L, BUN/Creatinine Ratio 28.8 H, Glucose 93, Calcium 9.3, Total Bilirubin 1.10 H, AST 17, ALT 19, Alkaline Phosphatase 61, Total Protein 6.5, Albumin 2.9 L, Globulin 3.6, Albumin/Globulin Ratio 0.8 L, Triglycerides 71, Cholesterol 114, LDL Cholesterol 53, VLDL Cholesterol 14, HDL Cholesterol 47 08/14/20 06:34: POC Glucose 108 08/14/20 11:14: POC Glucose 117 H OBSV E&M: [id number] Observation care discharge
--- NOTE | 2020-08-14 13:38 | CASEMGMT ---
This RN XIAO to room with DENNIS form at this time, explanation done-pt voices understanding, and signs DENNIS form at this time. Original to chart and copy to pt at this time. Pt voices no further questions/concerns/needs at this time. SStaten MIN HAGEN
--- NOTE | 2020-08-14 13:56 | PHA.DC.MC ---
Pharmacy Service has performed discharge medication reconciliation and counseling for this patient. The patient was counseled on the following discharge medications and changes in medications for homegoing were reviewed. 1. PROTONIX The Reason for Use, instructions for use, and potential side effects were reviewed for all new medications. The patient's questions regarding all of their medications were answered. The patient was able to verbally demonstrate an understanding of their discharge medications. -Also discussed with the patient some nonpharmacologic options to help reduce GERD exacerbations. Went over trigger foods, and balanced diet per pt request, as she recently had started keto diet and plans on stopping this diet at discharge. Home Medications Calcitriol [Rocaltrol] 0.25 mcg PO DAILY 02/14/18 Cholecalciferol (Vitamin D3) [Vitamin D3] 2,000 unit PO DAILY 02/14/18 Glimepiride 1 mg PO DAILY 02/14/18 Aspirin [Aspirin, Baby] 81 mg PO DAILY@0800 tab.chew 02/16/18 Pravastatin [Pravachol] 40 mg PO QHS tab 02/16/18 hydrALAZINE [Apresoline] 50 mg PO TID tab 02/16/18 rivaroxaban 15 mg tablet 15 mg PO QDAY #30 tab 03/20/18 Colchicine [Colcrys] 0.6 mg PO BID PRN 07/25/19 Levothyroxine [Synthroid] 100 mcg PO DAILY 07/25/19 Furosemide 40 mg PO BID 08/13/20 Losartan Potassium 25 mg PO QHS 08/13/20 Losartan Potassium [Cozaar] 50 mg PO DAILY 08/13/20 NIFEdipine [Procardia] 30 mg PO QHS 08/13/20 Pantoprazole Sodium [Protonix] 20 mg PO DAILY #30 tab 08/14/20 The patient's discharge medication list was reviewed for discrepancies and discrepancies were resolved.
== END 2020-08-14 12:47 | disposition home or self-care (01) ==
LOC: ED 08:45 → PCU 09:38
PROVIDERS: Hospitalist; Admitting Provider Family Medicine; Emergency Provider Emergency Medicine; PCP Internal Medicine; Visit Provider Internal Medicine
DX: K21.9 Gastro-esophageal reflux disease without esophagitis (principal); R06.02 Shortness of breath; I10 Essential (primary) hypertension; G47.33 Obstructive sleep apnea (adult) (pediatric); I48.0 Paroxysmal atrial fibrillation; E66.9 Obesity, unspecified; Z68.35 Body mass index [BMI] 35.0-35.9, adult; E78.5 Hyperlipidemia, unspecified; E11.65 Type 2 diabetes mellitus with hyperglycemia; E89.0 Postprocedural hypothyroidism; Z95.0 Presence of cardiac pacemaker; Z79.899 Other long term (current) drug therapy; Z79.82 Long term (current) use of aspirin; Z79.84 Long term (current) use of oral hypoglycemic drugs
CPT/HCPCS: 36415; 71045; 78452; 80048; 80053; 80061; 80076; 81001; 82962; 83690; 83735; 84484; 85025; 87086; 87088; 87635; 93005; 93017; 99218; 99251; 99285; A9500; A4216; G0378; G0463; J2785; U0002

== ENCOUNTER 2020-08-23 06:38 | Emergency (ER) | payer MEDICARE, BC, SELFPAY ==
[2020-08-13 10:23] VITALS: BMI 34.7
[2020-08-23] VITALS (8 sets, daily range): BP systolic 92–139; BP diastolic 44–108; PULSE 61–91; RESP 14–17; TEMP 36.4; O2SAT 92–99; BMI 39.6
--- NOTE | 2020-08-23 06:44 | EKG12_ITS ---
Test Reason : CP Blood Pressure : / mmHG Vent. Rate : 098 BPM Atrial Rate : 133 BPM P-R Int : 000 ms QRS Dur : 160 ms QT Int : 412 ms P-R-T Axes : 000 -13 143 degrees QTc Int : 525 ms Atrial fibrillation Left bundle branch block Abnormal ECG Confirmed by COLE GERBER, DIPESH ([id number]), communications editor YESICA FERNANDEZ ([id number]) on 08/25/2020 11:05:26 AM Referred By: MARITZA Confirmed By:DIPESH GALVAN MD
--- NOTE | 2020-08-23 06:50 | ED.DCSUM_ITS ---
- ER Visit Summary Date of Service: 08/23/20 Chief Complaint: Ill, back pain History of Present Illness: The patient is a 80 F who presents feeling ill. She says she just does not feel right. She is felt this way for 2 weeks. The patient was admitted to the hospital about 10 days ago. She had a troponin that went from 0.032 up to 0.8. She had a negative stress test and was discharged to home. She states ever since that she has been home she has not felt well. She is feeling generally weak. No slurred speech or facial droop. Denies fevers or cough. Her doctor took her off of her Lasix. She states that for the past 2 days she has had decreased urine output. No dysuria or hematuria. She is having some pain in her upper back as well. The patient does have a history of atrial fibrillation on Xarelto. Physical Examination: Vital signs reviewed. HEENT exam unremarkable. Heart is regular rate and rhythm without murmurs. Lungs are clear to auscultation. Abdomen is soft and nontender. Extremities reveal no edema. Skin exam normal. Neurologic exam normal. Test Results: EKG was atrial fibrillation with a left bundle branch block. No acute changes. This is unchanged from previous EKG. Emergency Department Course and Treatment: The rest of this patient's work-up is pending. Patient will be reevaluated by the oncoming physician Treatment Plan: [] Disposition: Pending Impression: Generalized weakness This note was generated with [employer] dictation software. It may contain incorrect words, spelling, and punctuation that were not noted in review of the chart prior to signing ED Disposition - Plan for ED Patient: Referrals: Blaise Winslow MD [Primary Care Provider] -
[2020-08-23] MEDS: 0.9% Normal Saline 1,000 ML 1000 ML IV (06:54)
[2020-08-23 07:01] LABS: Absolute Lymphocyte Count 1.32 X10^3/uL (0.83-4.51); Absolute Neutrophil Count 6.7 X10^3/uL (2.0-7.7); Basophil# 0.02 X10^3/uL; Basophil% 0.2 % (0-1); Eosinophil# 0.01 X10^3/uL; Eosinophils% 0.1 % (0-5); Hematocrit 30.7 % (37-47); Hemoglobin 9.7 g/dL (12.0-15.0); Lymphocyte # 1.32 X10^3/ul (4.0); Lymphocyte % 15.1 % (19-41); Mean Corp Hgb Conc 31.6 g/dL (32-36); Mean Corpuscular Hgb 31.5 pg (27.0-32.0); Mean Corpuscular Volume 99.7 fL (81-99); Mean Platelet Vol. 9.5 fl (6.2-12.0); NRBC Flagged by Analyzer 0 % (0-5); Neutrophil # 6.67 X10^3/uL (2.7-7.7); Neutrophil % 76.1 % (47-70); Platelet Count 419 K/mm3 (150-450); RBC Distribution Width CV 13.4 % (11.6-14.6); RBC Distribution Width SD 48.7 fl (35.1-43.9); Red Blood Count 3.08 M/mm3 (4.2-5.4); White Blood Count 8.8 K/mm3 (4.4-11.0)
[2020-08-23 07:21] LABS: AST(SGOT) 502 U/L (15-37); Alanine Aminotransfer ALT/SGPT 474 U/L (13-56); Albumin, Serum 3.2 g/dL (3.2-5.0); Alkaline Phosphatase 105 U/L (45-117); Anion Gap 9 (5-15); BUN 54 mg/dL (7-18); BUN/Creat Ratio 24.7 RATIO (10-20); Bilirubin, Direct 0.27 mg/dL (0.00-0.30); Chloride 93 mmol/L (98-107); Creatinine, Serum 2.19 mg/dL (0.55-1.02); EST Glomerular Filtration Rate 23 mL/min (>60); Est Glom Filt Rate - Afr Amer 28 mL/min (>60); Estimated Creatinine Clearance 16.47 ml/min; Globulin 4.2 g/dL (2.2-4.2); Glucose 185 mg/dL (74-106); Lipase 202 U/L (73-393); Potassium 4.7 mmol/L (3.5-5.1); Protein, Total 7.4 g/dL (6.4-8.2); Sodium Level 125 mmol/L (136-145)
[2020-08-23] MEDS: Acetaminophen 500 MG Tablet 1000 MG PO (07:28)
--- NOTE | 2020-08-23 07:30 | RAD_ITS ---
STUDY: X-RAY CHEST REASON FOR EXAM: Female, 80 years old. upper back pain x 2 weeks. diarrhea and having trouble peeing for about 2 days. TECHNIQUE: Single AP portable view of the chest. COMPARISON: 08/13/2020 FINDINGS: The lungs are clear and expanded. There is no demonstrated pleural abnormality. There is mild cardiac enlargement. Left chest wall pacing device. Normal mediastinum and cookie. Normal visualized pulmonary arteries. Normal visualized aortic arch and descending thoracic aorta. Normal visualized thoracic spine. Normal visualized ribs, clavicles, and shoulders. There is no demonstrated abnormality of the visualized soft tissue structures of the upper abdomen. RAD/Chest 1 View (Portable) IMPRESSION: No acute cardiopulmonary disease Electronically Signed: Fransisco Escalante DO at 7:45 EST Tel , Service support ,
--- NOTE | 2020-08-23 07:32 | US_ITS ---
STUDY: ABDOMINAL ULTRASOUND - RIGHT UPPER QUADRANT REASON FOR VISIT: Female, 80 years old ELEVATED LIVER ENZYMES TECHNIQUE: Ultrasound evaluation of the right upper quadrant was performed with real-time and static martinez-scale imaging. TECHNICAL QUALITY: Adequate. COMPARISON: None. FINDINGS: Liver: The liver measures 14.4 cm. There is normal echogenicity of the liver. The bile ducts are within normal limits. There is hepatic color flow. The direction of portal flow is hepatopetal. There is no demonstrated mass lesion. Gallbladder: The gallbladder appears mildly distended. The gallbladder wall measures 7 mm and is edematous. Tthere is a positive sonographic Salcido''s sign. There is no pericholecystic fluid. There is a gallstone in the neck of the gallbladder which is casting acoustic shadow. These findings are highly suspicious for acute cholecystitis. Common Bile Duct (C.B.D.): The common bile duct measures 5 mm. Pancreas: The pancreas is suboptimally visualized due to overlying the distal bowel gas. Right Kidney: Normal size of the right kidney. The right kidney measures 9.5 x 4.7 x 4.9 cm. Normal renal cortex. The right cortex measures 1.5 cm. There is no demonstrated renal mass or cyst. There is no right hydronephrosis. US/Gallbladder IMPRESSION: Cholelithiasis with a stone lodged in the neck of the gallbladder and gallbladder wall edema. This constellation of findings is suspicious for acute cholecystitis. Electronically Signed: Kenroy Toro, at 8:47 EST Tel , Service support ,
[2020-08-23 08:15] LABS: BNP,B-Type NATRIURETIC PEPTIDE 211.7 pg/mL (0-100)
--- NOTE | 2020-08-23 09:04 | CT_ITS ---
STUDY: CT ABDOMEN AND PELVIS WITHOUT CONTRAST REASON FOR EXAM: Female, 80 years old. Acute abdomen pain, eval duodenum. Prelim already completed. RADIATION DOSAGE (If Supplied By Facility): CTDIvol = ( 17.98 ) mGy, DLP = ( 929.87 ) mGycm TECHNIQUE: Transaxial images were obtained from the dome of the diaphragm to the symphysis pubis with oral contrast, and without intravenous contrast. Sagittal and coronal images were reconstructed. Individualized dose optimization techniques were used for this CT. COMPARISON: Chest x-ray dated August 23, 2020 FINDINGS: A large pericardial effusion is present. 3 pacemaker leads are present. Small bilateral pleural effusions are present as well as subsegmental atelectasis in the lung bases. A small amount of ascites is present. Normal liver. There is a 1.87 cm solitary gallstone. Normal spleen. Normal pancreas. Normal bilateral adrenal glands. There is mild cortical atrophy of the right kidney, consistent with chronic medical renal disease. There is moderate cortical atrophy of the left kidney, consistent with chronic medical renal disease. A small simple cyst is present in the right kidney that does not require further imaging follow-up. Normal visualized stomach. There is mild thickening of the wall of the proximal duodenum. Normal remaining small intestine. There are multiple colonic diverticula consistent with diverticulosis. There is non-visualization of the appendix. There is diffuse atherosclerotic calcification of the abdominal aorta, without a demonstrated aneurysm. Normal inferior vena cava. Normal retroperitoneum. Normal urinary bladder. There is absence of the uterus consistent with a prior hysterectomy. Scarring from prior surgical intervention seen in the anterior abdominal wall. There are diffuse degenerative changes of the visualized lumbar spine. CT/Abdomen/Pel W ORAL Cont Only IMPRESSION: 1. Large pericardial effusion 2. Small bilateral pleural effusions 3. Small amount of ascites 4. Mildly thickened proximal duodenal wall compatible with nonspecified duodenitis 5. Colonic diverticulosis Electronically Signed: Hermilo Ortiz MD at 18:34 EST , Service support ,
--- NOTE | 2020-08-23 09:57 | NURSING ---
DR VIRI FELICIANO
[2020-08-23 10:57] LABS: Mucous, Urine 0 SEEN /hpf (<or=2+); Red Blood Cells-Urine 0 SEEN /hpf (0-5)
[2020-08-23 11:23] LABS: Color, Urine Straw (Yellow); Glucose, Dipstick Normal (Normal); Ketone-Dipstick Negative (Negative); Leukocyte Esterase-Dipstick 25 /ul (Negative); Nitrite-Dipstick Negative (Negative); Occult Blood-Urine Negative /ul (Negative); Protein-Dipstick Negative (Negative); Urine Bilirubin Dipstick Negative (Negative); Urine Clarity Clear (Clear); Urine Urobilinogen Normal (Normal)
[2020-08-23 11:32] LABS: Bacteria 1+ /hpf (None Seen); Squamous Epithelial Cells - UA 0-5 SEEN /hpf (5-10); White Blood Cells 0-5 SEEN /hpf (0-5)
[2020-08-23 11:33] LABS: Hyaline Cast 0-5 SEEN /lpf (0-5)
--- NOTE | 2020-08-23 12:36 | ED.RN ---
DEMOGRAPHIC, INSURANCE CARD, AND COVID RESULTS FAXED TO [facility]
--- NOTE | 2020-08-23 12:41 | ECHOCS_ITS ---
Reason For Study: PERICARDIAL EFFUSION Procedure This was a 2D Doppler, Color Flow transthoracic echocardiogram. Exam performed portable in ED. Left Ventricle Normal LV size. Moderate concentric left ventricular hypertrophy. Left ventricular systolic function is normal. The estimated ejection fraction is 53 %. No regional wall motion abnormalities noted. Right Ventricle Normal RV size. Normal systolic function. Atria Normal left atrium. Normal right atrium. Mitral Valve Normal mitral valve. Tricuspid Valve Normal tricuspid valve. Aortic Valve Trisinus/trileaflet aortic valve. Mild focal aortic valve calcification. Pulmonic Valve Normal pulmonic valve. Great Vessels Normal aortic root. The pulmonary artery is normal size. Normal inferior vena cava. Pericardium/Pleural Moderate pericardial effusion. There are no echocardiographic indications of cardiac tamponade. Fibrinous strands. MMode/2D Measurements & Calculations LVIDd: 3.5 cm IVSd: 1.4 cm LVOT diam: 2.0 cm LVIDs: 2.8 cm LVPWd: 1.4 cm LVOT area: 3.1 cm2 FS: 18.3 % LAV(MOD-bp): 38.6 ml LVAd ap4: 19.4 cm2 SV(MOD-sp4): 14.4 ml LAV(MOD-bp) Indexed: 19.6 ml/m2 EDV(MOD-sp4): 46.7 ml LAV(MOD-sp2): 39.3 ml EDV(sp4-el): 47.7 ml LAV(MOD-sp4): 35.1 ml LVAs ap4: 15.7 cm2 ESV(MOD-sp4): 32.2 ml ESV(sp4-el): 32.6 ml EF(MOD-sp4): 30.9 % EF(sp4-el): 31.7 % SV(sp4-el): 15.1 ml LA A4 area: 15.5 cm2 RA A4 area: 12.7 cm2 Time Measurements MV dec time: 0.20 sec Doppler Measurements & Calculations MV E max abdullahi: 103.0 cm/sec Ao V2 max: 190.6 cm/sec LV V1 max: 85.7 cm/sec MV A max abdullahi: 60.0 cm/sec Ao max P.9 mmHg LV V1 max P.0 mmHg MV E/A: 1.7 Ao V2 mean: 140.8 cm/sec LV V1 mean P.8 mmHg Ao mean P.1 mmHg LV V1 mean: 60.1 cm/sec Ao V2 VTI: 33.4 cm LV V1 VTI: 18.6 cm STEVE(I,D): 1.7 cm2 STEVE(V,D): 1.4 cm2 SV(LVOT): 57.4 ml PA V2 max: 71.5 cm/sec TR max abdullahi: 238.0 cm/sec TR max P.8 mmHg Interpretation Summary Normal LV size. Moderate concentric left ventricular hypertrophy. Left ventricular systolic function is normal. The estimated ejection fraction is 53 %. There are no echocardiographic indications of cardiac tamponade. Though there is some respiratory variation noted. Moderate pericardial effusion. This measures 2.4 to 2.7 cm. Ordering Physician: Ernesto Taylor Referring Physician: NORIS YOUNGBLOOD Performed By: Ani Yu RDCS
--- NOTE | 2020-08-23 14:23 | NURSING ---
FAXED FACESHEET TO [facility]
--- NOTE | 2020-08-23 16:51 | NURSING ---
[facility] MAIN J 61 BED 22 NURSE TO NURSE [phone]
--- NOTE | 2020-08-23 17:18 | NURSING ---
CALLED [facility], ETA IS 60 MIN
[2020-08-23] MEDS: Ondansetron 4 MG/2 ML Vial IV ×2 (17:34→19:42)
== END 2020-08-23 19:50 | disposition short-term general hospital (02) ==
PROVIDERS: Emergency Medicine; Emergency Provider Emergency Medicine; PCP Internal Medicine
DX: R53.1 Weakness (principal); I31.3 Pericardial effusion (noninflammatory); J90 Pleural effusion, not elsewhere classified; R18.8 Other ascites; N17.9 Acute kidney failure, unspecified; E87.1 Hypo-osmolality and hyponatremia; K80.20 Calculus of gallbladder without cholecystitis without obstruction; I48.91 Unspecified atrial fibrillation; Z79.01 Long term (current) use of anticoagulants; Z79.82 Long term (current) use of aspirin
CPT/HCPCS: 71045; 74176; 76705; 80048; 80076; 81001; 83690; 83880; 84484; 85025; 87426; 93005; 93306; 96361; 96365; 96375; 96376; 99285; J7030; J7050; A4216; J2405

== ENCOUNTER 2020-09-28 10:58 | Outpatient (RCR) | payer MEDICARE, BC, SELFPAY ==
[2020-08-23 06:39] VITALS: BMI 39.6
[2020-09-15 11:49] LABS: Hematocrit 36.5 % (37-47); Hemoglobin 11.7 g/dL (12.0-15.0); Mean Corp Hgb Conc 32.1 g/dL (32-36); Mean Corpuscular Hgb 31.9 pg (27.0-32.0); Mean Corpuscular Volume 99.5 fL (81-99); Mean Platelet Vol. 9.7 fl (6.2-12.0); Platelet Count 234 K/mm3 (150-450); RBC Distribution Width CV 15.5 % (11.6-14.6); Red Blood Count 3.67 M/mm3 (4.2-5.4); White Blood Count 10.2 K/mm3 (4.4-11.0)
[2020-09-15 12:12] LABS: Erythrocyte Sedimentation Rate 6 mm/hr (0-30)
[2020-09-15 12:19] LABS: AST(SGOT) 12 U/L (15-37); Alanine Aminotransfer ALT/SGPT 38 U/L (13-56); Albumin, Serum 3.3 g/dL (3.2-5.0); Alkaline Phosphatase 116 U/L (45-117); Anion Gap 3 (5-15); BUN 34 mg/dL (7-18); BUN/Creat Ratio 25.8 RATIO (10-20); CRP < 2.90 mg/L (0.0-3.0); Calcium,Total 9.3 mg/dL (8.5-10.1); Chloride 106 mmol/L (98-107); Creatinine, Serum 1.32 mg/dL (0.55-1.02); EST Glomerular Filtration Rate 41 mL/min (>60); Est Glom Filt Rate - Afr Amer 50 mL/min (>60); Globulin 3.3 g/dL (2.2-4.2); Glucose 233 mg/dL (74-106); Phosphorus 2.2 mg/dL (2.5-4.9); Potassium 4.1 mmol/L (3.5-5.1); Protein, Total 6.6 g/dL (6.4-8.2); Sodium Level 136 mmol/L (136-145)
[2020-09-28 11:38] LABS: Erythrocyte Sedimentation Rate 2 mm/hr (0-30)
[2020-09-28 11:48] LABS: CRP < 2.90 mg/L (0.0-3.0)
== END 2020-09-28 18:00 | disposition home or self-care (01) ==
LOC: LAB 10:58
PROVIDERS: PCP Internal Medicine
DX: I30.0 Acute nonspecific idiopathic pericarditis (principal); I50.30 Unspecified diastolic (congestive) heart failure
CPT/HCPCS: 36415; 80053; 84100; 85027; 85652; 86140

== ENCOUNTER 2020-10-25 11:08 | Outpatient (RCR) | payer MEDICARE, BC, SELFPAY ==
[2020-08-23 06:39] VITALS: BMI 39.6
[2020-10-12 12:29] LABS: Erythrocyte Sedimentation Rate 11 mm/hr (0-30); Hematocrit 37.7 % (37-47); Hemoglobin 12.4 g/dL (12.0-15.0); Mean Corp Hgb Conc 32.9 g/dL (32-36); Mean Corpuscular Hgb 32.4 pg (27.0-32.0); Mean Corpuscular Volume 98.4 fL (81-99); Mean Platelet Vol. 9.7 fl (6.2-12.0); Platelet Count 222 K/mm3 (150-450); RBC Distribution Width CV 14.8 % (11.6-14.6); RBC Distribution Width SD 53.4 fl (35.1-43.9); Red Blood Count 3.83 M/mm3 (4.2-5.4); White Blood Count 7.3 K/mm3 (4.4-11.0)
[2020-10-12 13:02] LABS: ALB/GLOB Ratio 1.1 RATIO (0.9-2.4); AST(SGOT) 23 U/L (15-37); Alanine Aminotransfer ALT/SGPT 49 U/L (13-56); Albumin, Serum 3.6 g/dL (3.2-5.0); Alkaline Phosphatase 92 U/L (45-117); Anion Gap 4 (5-15); BUN 28 mg/dL (7-18); CRP 6.14 mg/L (0.0-3.0); Calcium,Total 9.5 mg/dL (8.5-10.1); Chloride 107 mmol/L (98-107); Creatinine, Serum 1.27 mg/dL (0.55-1.02); EST Glomerular Filtration Rate 43 mL/min (>60); Est Glom Filt Rate - Afr Amer 52 mL/min (>60); Globulin 3.2 g/dL (2.2-4.2); Glucose 194 mg/dL (74-106); Phosphorus 2.5 mg/dL (2.5-4.9); Potassium 3.6 mmol/L (3.5-5.1); Protein, Total 6.8 g/dL (6.4-8.2); Sodium Level 139 mmol/L (136-145)
[2020-10-25 11:35] LABS: Erythrocyte Sedimentation Rate 4 mm/hr (0-30)
== END 2020-10-25 18:00 | disposition home or self-care (01) ==
LOC: LAB 11:08
PROVIDERS: PCP Internal Medicine
DX: I30.0 Acute nonspecific idiopathic pericarditis (principal); I50.30 Unspecified diastolic (congestive) heart failure
CPT/HCPCS: 36415; 80053; 84100; 85027; 85652; 86140

== ENCOUNTER 2020-10-26 15:34 | Outpatient (RCR) | payer MEDICARE, BC, SELFPAY ==
[2020-08-23 06:39] VITALS: BMI 39.6
== END 2020-10-26 23:59 ==
LOC: IMMUN 15:34
PROVIDERS: PCP Internal Medicine; Referring Provider Family Medicine; Visit Provider Family Medicine
DX: Z23 Encounter for immunization (principal)
CPT/HCPCS: 0011A; 0012A; 91301

== ENCOUNTER 2020-11-24 10:01 | Outpatient (RCR) | payer MEDICARE, BC, SELFPAY ==
[2020-08-23 06:39] VITALS: BMI 39.6
[2020-11-09 11:56] LABS: Erythrocyte Sedimentation Rate 3 mm/hr (0-30)
[2020-11-09 11:58] LABS: Hematocrit 38.4 % (37-47); Hemoglobin 12.3 g/dL (12.0-15.0); Mean Corpuscular Hgb 31.9 pg (27.0-32.0); Mean Corpuscular Volume 99.7 fL (81-99); Mean Platelet Vol. 9.4 fl (6.2-12.0); Platelet Count 223 K/mm3 (150-450); RBC Distribution Width SD 55.1 fl (35.1-43.9); Red Blood Count 3.85 M/mm3 (4.2-5.4); White Blood Count 10.7 K/mm3 (4.4-11.0)
[2020-11-09 12:20] LABS: ALB/GLOB Ratio 1.1 RATIO (0.9-2.4); AST(SGOT) 20 U/L (15-37); Alanine Aminotransfer ALT/SGPT 30 U/L (13-56); Albumin, Serum 3.3 g/dL (3.2-5.0); Alkaline Phosphatase 86 U/L (45-117); Anion Gap 3 (5-15); BUN 24 mg/dL (7-18); Calcium,Total 9.3 mg/dL (8.5-10.1); Chloride 105 mmol/L (98-107); Creatinine, Serum 1.26 mg/dL (0.55-1.02); EST Glomerular Filtration Rate 43 mL/min (>60); Est Glom Filt Rate - Afr Amer 53 mL/min (>60); Glucose 164 mg/dL (74-106); Phosphorus 2.7 mg/dL (2.5-4.9); Protein, Total 6.3 g/dL (6.4-8.2); Sodium Level 139 mmol/L (136-145)
[2020-11-24 10:46] LABS: Erythrocyte Sedimentation Rate 8 mm/hr (0-30)
[2020-11-24 11:35] LABS: CRP 7.93 mg/L (0.0-3.0)
== END 2020-11-24 18:00 | disposition home or self-care (01) ==
LOC: LAB 10:01
PROVIDERS: PCP Internal Medicine
DX: I50.30 Unspecified diastolic (congestive) heart failure (principal); I30.0 Acute nonspecific idiopathic pericarditis
CPT/HCPCS: 36415; 80053; 84100; 85027; 85652; 86140

== ENCOUNTER 2020-12-07 10:20 | Outpatient (RCR) | payer MEDICARE, BC, SELFPAY ==
[2020-08-23 06:39] VITALS: BMI 39.6
[2020-12-07 11:00] LABS: Hematocrit 39.2 % (37-47); Hemoglobin 12.6 g/dL (12.0-15.0); Mean Corp Hgb Conc 32.1 g/dL (32-36); Mean Corpuscular Hgb 32.2 pg (27.0-32.0); Mean Corpuscular Volume 100.3 fL (81-99); Mean Platelet Vol. 9.8 fl (6.2-12.0); Platelet Count 263 K/mm3 (150-450); RBC Distribution Width CV 14.1 % (11.6-14.6); RBC Distribution Width SD 51.2 fl (35.1-43.9); Red Blood Count 3.91 M/mm3 (4.2-5.4); White Blood Count 7.5 K/mm3 (4.4-11.0)
[2020-12-07 11:06] LABS: Erythrocyte Sedimentation Rate 9 mm/hr (0-30)
[2020-12-07 11:17] LABS: ALB/GLOB Ratio 1.1 RATIO (0.9-2.4); AST(SGOT) 23 U/L (15-37); Alanine Aminotransfer ALT/SGPT 30 U/L (13-56); Albumin, Serum 3.5 g/dL (3.2-5.0); Alkaline Phosphatase 93 U/L (45-117); Anion Gap 6 (5-15); BUN 41 mg/dL (7-18); BUN/Creat Ratio 24.8 RATIO (10-20); CRP 6.29 mg/L (0.0-3.0); Calcium,Total 9.3 mg/dL (8.5-10.1); Chloride 103 mmol/L (98-107); Creatinine, Serum 1.65 mg/dL (0.55-1.02); EST Glomerular Filtration Rate 32 mL/min (>60); Est Glom Filt Rate - Afr Amer 39 mL/min (>60); Globulin 3.1 g/dL (2.2-4.2); Glucose 130 mg/dL (74-106); Phosphorus 3.1 mg/dL (2.5-4.9); Potassium 3.4 mmol/L (3.5-5.1); Protein, Total 6.6 g/dL (6.4-8.2); Sodium Level 140 mmol/L (136-145)
== END 2020-12-07 18:00 | disposition home or self-care (01) ==
LOC: LAB 10:20
PROVIDERS: PCP Internal Medicine
DX: I30.0 Acute nonspecific idiopathic pericarditis (principal); I50.30 Unspecified diastolic (congestive) heart failure
CPT/HCPCS: 36415; 80053; 84100; 85027; 85652; 86140

== ENCOUNTER 2021-01-18 08:57 | Outpatient (RCR) | payer MEDICARE, BC, SELFPAY ==
[2020-08-23 06:39] VITALS: BMI 39.6
[2021-01-04 11:22] LABS: Hematocrit 40.3 % (37-47); Hemoglobin 13.1 g/dL (12.0-15.0); Mean Corp Hgb Conc 32.5 g/dL (32-36); Mean Corpuscular Hgb 32.3 pg (27.0-32.0); Mean Corpuscular Volume 99.3 fL (81-99); Mean Platelet Vol. 9.6 fl (6.2-12.0); Platelet Count 263 K/mm3 (150-450); RBC Distribution Width SD 47.5 fl (35.1-43.9); Red Blood Count 4.06 M/mm3 (4.2-5.4); White Blood Count 6.3 K/mm3 (4.4-11.0)
[2021-01-04 11:27] LABS: Erythrocyte Sedimentation Rate 13 mm/hr (0-30)
[2021-01-04 11:52] LABS: ALB/GLOB Ratio 1.1 RATIO (0.9-2.4); AST(SGOT) 39 U/L (15-37); Alanine Aminotransfer ALT/SGPT 58 U/L (13-56); Albumin, Serum 3.5 g/dL (3.2-5.0); Alkaline Phosphatase 97 U/L (45-117); Anion Gap 6 (5-15); BUN 34 mg/dL (7-18); BUN/Creat Ratio 18.8 RATIO (10-20); CRP 2.99 mg/L (0.0-3.0); Calcium,Total 9.4 mg/dL (8.5-10.1); Chloride 100 mmol/L (98-107); Creatinine, Serum 1.81 mg/dL (0.55-1.02); EST Glomerular Filtration Rate 29 mL/min (>60); Est Glom Filt Rate - Afr Amer 35 mL/min (>60); Globulin 3.2 g/dL (2.2-4.2); Glucose 183 mg/dL (74-106); Phosphorus 3.4 mg/dL (2.5-4.9); Potassium 3.4 mmol/L (3.5-5.1); Protein, Total 6.7 g/dL (6.4-8.2); Sodium Level 135 mmol/L (136-145)
[2021-01-18 10:08] LABS: Erythrocyte Sedimentation Rate 6 mm/hr (0-30)
[2021-01-18 10:10] LABS: CRP < 2.90 mg/L (0.0-3.0)
== END 2021-01-18 18:00 | disposition home or self-care (01) ==
LOC: LAB 08:57
PROVIDERS: PCP Internal Medicine
DX: I30.0 Acute nonspecific idiopathic pericarditis (principal); I50.30 Unspecified diastolic (congestive) heart failure
CPT/HCPCS: 36415; 80053; 84100; 85027; 85652; 86140

== ENCOUNTER 2021-02-15 10:59 | Outpatient (RCR) | payer MEDICARE, BC, SELFPAY ==
[2020-08-23 06:39] VITALS: BMI 39.6
[2021-02-01 11:43] LABS: Erythrocyte Sedimentation Rate 6 mm/hr (0-30)
[2021-02-01 11:44] LABS: ALB/GLOB Ratio 1.1 RATIO (0.9-2.4); AST(SGOT) 24 U/L (15-37); Alanine Aminotransfer ALT/SGPT 44 U/L (13-56); Albumin, Serum 3.4 g/dL (3.2-5.0); Alkaline Phosphatase 89 U/L (45-117); Anion Gap 6 (5-15); BUN 35 mg/dL (7-18); BUN/Creat Ratio 22.9 RATIO (10-20); CRP 4.11 mg/L (0.0-3.0); Calcium,Total 9.4 mg/dL (8.5-10.1); Chloride 102 mmol/L (98-107); Creatinine, Serum 1.53 mg/dL (0.55-1.02); EST Glomerular Filtration Rate 35 mL/min (>60); Est Glom Filt Rate - Afr Amer 42 mL/min (>60); Globulin 3.1 g/dL (2.2-4.2); Glucose 204 mg/dL (74-106); Phosphorus 3.4 mg/dL (2.5-4.9); Potassium 3.6 mmol/L (3.5-5.1); Protein, Total 6.5 g/dL (6.4-8.2); Sodium Level 140 mmol/L (136-145)
[2021-02-01 11:45] LABS: Hematocrit 42.6 % (37-47); Hemoglobin 13.1 g/dL (12.0-15.0); Mean Corp Hgb Conc 30.8 g/dL (32-36); Mean Corpuscular Hgb 31.1 pg (27.0-32.0); Mean Corpuscular Volume 101.2 fL (81-99); Mean Platelet Vol. 9.5 fl (6.2-12.0); Platelet Count 264 K/mm3 (150-450); RBC Distribution Width SD 48.1 fl (35.1-43.9); Red Blood Count 4.21 M/mm3 (4.2-5.4); White Blood Count 5.5 K/mm3 (4.4-11.0)
[2021-02-15 11:47] LABS: Erythrocyte Sedimentation Rate 11 mm/hr (0-30)
[2021-02-15 12:04] LABS: CRP 5.05 mg/L (0.0-3.0)
== END 2021-02-15 18:00 | disposition home or self-care (01) ==
LOC: LAB 10:59
PROVIDERS: PCP Internal Medicine
DX: I30.0 Acute nonspecific idiopathic pericarditis (principal); I50.30 Unspecified diastolic (congestive) heart failure
CPT/HCPCS: 36415; 80053; 84100; 85027; 85652; 86140

== ENCOUNTER 2021-03-14 14:46 | Outpatient (RCR) | payer MEDICARE, BC, SELFPAY ==
[2020-08-23 06:39] VITALS: BMI 39.6
[2021-03-01 14:33] LABS: Hematocrit 40.1 % (37-47); Hemoglobin 12.9 g/dL (12.0-15.0); Mean Corp Hgb Conc 32.2 g/dL (32-36); Mean Corpuscular Hgb 31.3 pg (27.0-32.0); Mean Corpuscular Volume 97.3 fL (81-99); Mean Platelet Vol. 9.8 fl (6.2-12.0); Platelet Count 269 K/mm3 (150-450); RBC Distribution Width CV 13.3 % (11.6-14.6); RBC Distribution Width SD 47.5 fl (35.1-43.9); Red Blood Count 4.12 M/mm3 (4.2-5.4)
[2021-03-01 14:44] LABS: Erythrocyte Sedimentation Rate 7 mm/hr (0-30)
[2021-03-01 14:52] LABS: ALB/GLOB Ratio 1.1 RATIO (0.9-2.4); AST(SGOT) 31 U/L (15-37); Alanine Aminotransfer ALT/SGPT 48 U/L (13-56); Albumin, Serum 3.5 g/dL (3.2-5.0); Alkaline Phosphatase 94 U/L (45-117); Anion Gap 6 (5-15); BUN 34 mg/dL (7-18); BUN/Creat Ratio 20.6 RATIO (10-20); CRP 3.51 mg/L (0.0-3.0); Chloride 99 mmol/L (98-107); Creatinine, Serum 1.65 mg/dL (0.55-1.02); EST Glomerular Filtration Rate 32 mL/min (>60); Est Glom Filt Rate - Afr Amer 39 mL/min (>60); Globulin 3.3 g/dL (2.2-4.2); Glucose 272 mg/dL (74-106); Phosphorus 2.9 mg/dL (2.5-4.9); Potassium 3.9 mmol/L (3.5-5.1); Protein, Total 6.8 g/dL (6.4-8.2); Sodium Level 137 mmol/L (136-145)
[2021-03-14 16:50] LABS: CRP < 2.90 mg/L (0.0-3.0)
[2021-03-14 17:19] LABS: Erythrocyte Sedimentation Rate 9 mm/hr (0-30)
== END 2021-03-14 18:00 | disposition home or self-care (01) ==
LOC: LAB 14:46
PROVIDERS: PCP Internal Medicine
DX: I30.0 Acute nonspecific idiopathic pericarditis (principal); I50.30 Unspecified diastolic (congestive) heart failure
CPT/HCPCS: 36415; 80053; 84100; 85027; 85652; 86140

== ENCOUNTER → 2021-03-24 11:30 | Outpatient (CLI) | payer MEDICARE, BC, SELFPAY ==
[2020-08-23 06:39] VITALS: BMI 39.6
[2021-03-24 12:24] LABS: CRP 5.66 mg/L (0.0-3.0)
[2021-03-24 12:36] LABS: Absolute Neutrophil Count 6.7 X10^3/uL (2.0-7.7); Basophil# 0.03 X10^3/uL; Basophil% 0.4 % (0-1); Eosinophil# 0.01 X10^3/uL; Eosinophils% 0.1 % (0-5); Hematocrit 40.1 % (37-47); Hemoglobin 12.6 g/dL (12.0-15.0); Lymphocyte % 12.4 % (19-41); Mean Corp Hgb Conc 31.4 g/dL (32-36); Mean Corpuscular Volume 98.5 fL (81-99); Mean Platelet Vol. 10.1 fl (6.2-12.0); Monocyte# 0.33 X10^3/uL; Monocyte% 4.1 % (0-10); NRBC Flagged by Analyzer 0 % (0-5); Neutrophil # 6.69 X10^3/uL (2.7-7.7); Neutrophil % 82.6 % (47-70); Platelet Count 278 K/mm3 (150-450); RBC Distribution Width CV 13.4 % (11.6-14.6); RBC Distribution Width SD 48.7 fl (35.1-43.9); Red Blood Count 4.07 M/mm3 (4.2-5.4); White Blood Count 8.1 K/mm3 (4.4-11.0)
[2021-03-24 12:43] LABS: Erythrocyte Sedimentation Rate 19 mm/hr (0-30)
== END ==
PROVIDERS: PCP Internal Medicine; Referring Provider Specialist; Visit Provider Specialist
DX: T84.84XA Pain due to internal orthopedic prosthetic devices, implants and grafts, initial encounter (principal); Z96.652 Presence of left artificial knee joint
CPT/HCPCS: 36415; 85025; 85652; 86140

== ENCOUNTER → 2021-04-16 08:54 | Outpatient (CLI) | payer MEDICARE, BC, SELFPAY ==
[2020-08-23 06:39] VITALS: BMI 39.6
--- NOTE | 2021-04-16 09:10 | RAD_ITS ---
STUDY: X-RAY - LUMBAR SPINE REASON FOR EXAM: Female, 81 years old. DORSALGIA TECHNIQUE: 4 view(s) of the lumbar spine were obtained. COMPARISON: None FINDINGS: There is an exaggerated lumbar lordosis. There is no substantial scoliosis. There is a normal alignment of the vertebrae. There is multilevel endplate spondylosis of the lumbar vertebrae. There is multi-level degenerative disc disease with multi-level disc space narrowing. There is atherosclerotic calcification of the abdominal aorta without a demonstrated aneurysm. Gallstones. RAD/L/S Spine Min 4 Views IMPRESSION: Degenerative changes of the spine, as detailed above. Electronically Signed: Soren Cortez MD at 22:47 EDT , Service support ,
--- NOTE | 2021-04-16 09:10 | RAD_ITS ---
STUDY: X-RAY - THORACIC SPINE REASON FOR EXAM: Female, 81 years old. DORSALGIA TECHNIQUE: 3 view(s) of the thoracic spine were obtained. COMPARISON: None. FINDINGS: There is an increase in the normal thoracic kyphosis. There is no substantial scoliosis. There is demineralization of the thoracic spine with endplate spondylosis. There is multilevel disc space narrowing of the thoracic spine. The soft tissue structures are unremarkable. RAD/Thoracic Spine 3 Views IMPRESSION: Increased kyphosis. Multilevel disc space narrowing and spondylosis. Electronically Signed: Soren Cortez MD at 22:48 EDT , Service support ,
== END ==
PROVIDERS: PCP Internal Medicine; Referring Provider Internal Medicine; Visit Provider Internal Medicine
DX: M54.9 Dorsalgia, unspecified (principal)
CPT/HCPCS: 72072; 72110

== ENCOUNTER 2021-04-26 11:52 | Outpatient (RCR) | payer MEDICARE, BC, SELFPAY ==
[2020-08-23 06:39] VITALS: BMI 39.6
[2021-03-29 12:39] LABS: Hematocrit 39.4 % (37-47); Hemoglobin 12.9 g/dL (12.0-15.0); Mean Corp Hgb Conc 32.7 g/dL (32-36); Mean Corpuscular Hgb 31.5 pg (27.0-32.0); Mean Corpuscular Volume 96.3 fL (81-99); Mean Platelet Vol. 9.6 fl (6.2-12.0); Platelet Count 256 K/mm3 (150-450); RBC Distribution Width CV 13.4 % (11.6-14.6); RBC Distribution Width SD 47.8 fl (35.1-43.9); Red Blood Count 4.09 M/mm3 (4.2-5.4); White Blood Count 8.2 K/mm3 (4.4-11.0)
[2021-03-29 12:50] LABS: Erythrocyte Sedimentation Rate 15 mm/hr (0-30)
[2021-03-29 13:16] LABS: ALB/GLOB Ratio 1.2 RATIO (0.9-2.4); AST(SGOT) 68 U/L (15-37); Alanine Aminotransfer ALT/SGPT 99 U/L (13-56); Albumin, Serum 3.7 g/dL (3.2-5.0); Alkaline Phosphatase 94 U/L (45-117); Anion Gap 10 (5-15); BUN 38 mg/dL (7-18); BUN/Creat Ratio 24.5 RATIO (10-20); CRP 5.03 mg/L (0.0-3.0); Calcium,Total 9.7 mg/dL (8.5-10.1); Chloride 101 mmol/L (98-107); Creatinine, Serum 1.55 mg/dL (0.55-1.02); EST Glomerular Filtration Rate 34 mL/min (>60); Est Glom Filt Rate - Afr Amer 41 mL/min (>60); Globulin 3.2 g/dL (2.2-4.2); Glucose 190 mg/dL (74-106); Phosphorus 3.3 mg/dL (2.5-4.9); Potassium 3.8 mmol/L (3.5-5.1); Protein, Total 6.9 g/dL (6.4-8.2); Sodium Level 139 mmol/L (136-145)
[2021-03-29 13:17] LABS: Synovial Fld Mononuclear WBC % 45.6 %; Synovial Fld Polynuclear WBC # 0.266 10^3/uL; Synovial Fld Polynuclear WBC % 54.4 %
[2021-03-29 13:23] LABS: RBC /Synovial Fluid 0.008 10^6/uL (0)
[2021-03-29 13:36] LABS: AUTO B FLUID DILUENT BKGD CT WBC <0.1 RBC <0.01 (W<.1,R<.01)
[2021-03-29 13:37] LABS: Appearance /Synovial Fluid Sl Cl (CLEAR); Color / Synovial Fluid Yellow (Pale Yellow); Source / Synovial Fluid LEFT KNEE; Viscosity / Synovial Fluid Viscous (HIGH)
[2021-03-29 13:53] LABS: Lymph 18 %; Monocyte /Synovial Fluid 25 %; Neutrophil 29 % (0-25); Other Cell /Synovial Fluid 28 %
[2021-03-29 13:56] LABS: Body Fluid QC Type(s) BF2Q
[2021-03-30 12:38] LABS: Pathologist Comment Reviewed
[2021-04-12 12:28] LABS: Erythrocyte Sedimentation Rate 12 mm/hr (0-30)
[2021-04-12 13:00] LABS: CRP < 2.90 mg/L (0.0-3.0)
[2021-04-26 12:41] LABS: Erythrocyte Sedimentation Rate 5 mm/hr (0-30)
[2021-04-26 13:02] LABS: CRP 3.58 mg/L (0.0-3.0)
== END 2021-04-26 18:00 | disposition home or self-care (01) ==
LOC: LAB 11:52
PROVIDERS: Specialist; PCP Internal Medicine
DX: I30.0 Acute nonspecific idiopathic pericarditis (principal); I50.30 Unspecified diastolic (congestive) heart failure
CPT/HCPCS: 36415; 80053; 84100; 85027; 85652; 86140; 87015; 87070; 87075; 87101; 87116; 87205; 87206; 89050; 89051

== ENCOUNTER 2021-05-10 13:26 | Outpatient (RCR) | payer MEDICARE, BC, SELFPAY ==
[2020-08-23 06:39] VITALS: BMI 39.6
[2021-05-10 16:04] LABS: Hematocrit 37.9 % (37-47); Hemoglobin 12.4 g/dL (12.0-15.0); Mean Corp Hgb Conc 32.7 g/dL (32-36); Mean Corpuscular Hgb 31.9 pg (27.0-32.0); Mean Corpuscular Volume 97.4 fL (81-99); Mean Platelet Vol. 10.2 fl (6.2-12.0); Platelet Count 283 K/mm3 (150-450); RBC Distribution Width CV 13.5 % (11.6-14.6); RBC Distribution Width SD 48.4 fl (35.1-43.9); Red Blood Count 3.89 M/mm3 (4.2-5.4)
[2021-05-10 16:22] LABS: Erythrocyte Sedimentation Rate 13 mm/hr (0-30)
[2021-05-10 16:37] LABS: ALB/GLOB Ratio 1.1 RATIO (0.9-2.4); AST(SGOT) 32 U/L (15-37); Alanine Aminotransfer ALT/SGPT 46 U/L (13-56); Albumin, Serum 3.5 g/dL (3.2-5.0); Alkaline Phosphatase 94 U/L (45-117); Anion Gap 9 (5-15); BUN 39 mg/dL (7-18); BUN/Creat Ratio 21.7 RATIO (10-20); Calcium,Total 9.3 mg/dL (8.5-10.1); Chloride 102 mmol/L (98-107); EST Glomerular Filtration Rate 29 mL/min (>60); Est Glom Filt Rate - Afr Amer 35 mL/min (>60); Globulin 3.2 g/dL (2.2-4.2); Glucose 269 mg/dL (74-106); Phosphorus 3.2 mg/dL (2.5-4.9); Potassium 3.7 mmol/L (3.5-5.1); Protein, Total 6.7 g/dL (6.4-8.2); Sodium Level 140 mmol/L (136-145)
== END 2021-05-10 18:00 | disposition home or self-care (01) ==
LOC: LAB 13:26
PROVIDERS: PCP Internal Medicine
DX: I30.0 Acute nonspecific idiopathic pericarditis (principal); I50.30 Unspecified diastolic (congestive) heart failure
CPT/HCPCS: 36415; 80053; 84100; 85027; 85652; 86140

== ENCOUNTER 2021-06-21 11:40 | Outpatient (RCR) | payer MEDICARE, BC, SELFPAY ==
[2021-05-29 21:48] VITALS: BMI 39.6
[2021-06-21 12:38] LABS: Hematocrit 39.5 % (37-47); Mean Corp Hgb Conc 32.9 g/dL (32-36); Mean Corpuscular Hgb 31.3 pg (27.0-32.0); Mean Corpuscular Volume 95.2 fL (81-99); Mean Platelet Vol. 10.2 fl (6.2-12.0); Platelet Count 248 K/mm3 (150-450); RBC Distribution Width CV 13.3 % (11.6-14.6); RBC Distribution Width SD 46.7 fl (35.1-43.9); Red Blood Count 4.15 M/mm3 (4.2-5.4); White Blood Count 6.2 K/mm3 (4.4-11.0)
[2021-06-21 12:47] LABS: Erythrocyte Sedimentation Rate 15 mm/hr (0-30)
[2021-06-21 13:08] LABS: ALB/GLOB Ratio 0.9 RATIO (0.9-2.4); AST(SGOT) 65 U/L (15-37); Alanine Aminotransfer ALT/SGPT 99 U/L (13-56); Albumin, Serum 3.5 g/dL (3.2-5.0); Alkaline Phosphatase 122 U/L (45-117); Anion Gap 4 (5-15); BUN 44 mg/dL (7-18); BUN/Creat Ratio 26.2 RATIO (10-20); CRP 5.81 mg/L (0.0-3.0); Calcium,Total 9.7 mg/dL (8.5-10.1); Chloride 101 mmol/L (98-107); Creatinine, Serum 1.68 mg/dL (0.55-1.02); EST Glomerular Filtration Rate 31 mL/min (>60); Est Glom Filt Rate - Afr Amer 38 mL/min (>60); Globulin 3.7 g/dL (2.2-4.2); Glucose 274 mg/dL (74-106); Phosphorus 3.4 mg/dL (2.5-4.9); Potassium 3.4 mmol/L (3.5-5.1); Protein, Total 7.2 g/dL (6.4-8.2); Sodium Level 136 mmol/L (136-145)
== END 2021-06-21 18:00 | disposition home or self-care (01) ==
LOC: LAB 11:40
PROVIDERS: PCP Internal Medicine
DX: I30.0 Acute nonspecific idiopathic pericarditis (principal); I50.30 Unspecified diastolic (congestive) heart failure
CPT/HCPCS: 36415; 80053; 84100; 85027; 85652; 86140

== ENCOUNTER 2021-07-23 15:29 | Outpatient (RCR) | payer MEDICARE, BC, SELFPAY ==
[2021-06-28 20:28] VITALS: BMI 39.6
[2021-07-11 14:20] LABS: CRP 7.11 mg/L (0.0-3.0)
[2021-07-11 14:45] LABS: Erythrocyte Sedimentation Rate 21 mm/hr (0-30)
--- NOTE | 2021-07-23 15:53 | RAD_ITS ---
STUDY: X-RAY - THORACIC SPINE REASON FOR EXAM: Female, 81 years old. Upper back pain for 3 to 4 months. TECHNIQUE: 3 view(s) of the thoracic spine were obtained. COMPARISON: None. FINDINGS: There is an increase in the normal thoracic kyphosis. There is no substantial scoliosis. This is particularly noted at thought to be the 10th through 12th vertebrae without loss of vertebral height. There is demineralization of the thoracic spine with endplate spondylosis. There is multilevel disc space narrowing of the thoracic spine. There is a 2 x 1.7 cm density in the right upper quadrant. Question gallstone. RAD/Thoracic Spine 3 Views IMPRESSION: Degenerative changes and exaggerated kyphosis. There is no visualized fracture or subluxation. Electronically Signed: Florencio Blair DO at 18:58 EDT Tel [phone], Service support ,
[2021-07-23 16:31] LABS: Hematocrit 38.8 % (37-47); Hemoglobin 12.7 g/dL (12.0-15.0); Mean Corp Hgb Conc 32.7 g/dL (32-36); Mean Corpuscular Hgb 31.3 pg (27.0-32.0); Mean Corpuscular Volume 95.6 fL (81-99); Mean Platelet Vol. 9.7 fl (6.2-12.0); Platelet Count 295 K/mm3 (150-450); RBC Distribution Width CV 13.7 % (11.6-14.6); Red Blood Count 4.06 M/mm3 (4.2-5.4); White Blood Count 6.9 K/mm3 (4.4-11.0)
[2021-07-23 17:19] LABS: CRP 9.56 mg/L (0.0-3.0)
== END 2021-07-29 03:45 | disposition home or self-care (01) ==
LOC: LAB 15:29
PROVIDERS: PCP Internal Medicine
DX: I30.0 Acute nonspecific idiopathic pericarditis (principal); I50.30 Unspecified diastolic (congestive) heart failure
CPT/HCPCS: 36415; 72072; 85027; 85652; 86140; C9803

== ENCOUNTER 2021-08-14 09:20 | Outpatient (RCR) | payer MEDICARE, BC, SELFPAY ==
[2021-07-29 03:45] VITALS: BMI 39.6
[2021-08-07 10:16] LABS: Erythrocyte Sedimentation Rate 43 mm/hr (0-30)
[2021-08-07 10:18] LABS: Hematocrit 39.3 % (37-47); Hemoglobin 12.7 g/dL (12.0-15.0); Mean Corp Hgb Conc 32.3 g/dL (32-36); Mean Corpuscular Hgb 30.5 pg (27.0-32.0); Mean Corpuscular Volume 94.5 fL (81-99); Mean Platelet Vol. 9.6 fl (6.2-12.0); Platelet Count 298 K/mm3 (150-450); RBC Distribution Width CV 13.6 % (11.6-14.6); Red Blood Count 4.16 M/mm3 (4.2-5.4); White Blood Count 5.6 K/mm3 (4.4-11.0)
[2021-08-07 11:02] LABS: ALB/GLOB Ratio 0.8 RATIO (0.9-2.4); AST(SGOT) 26 U/L (15-37); Alanine Aminotransfer ALT/SGPT 35 U/L (13-56); Albumin, Serum 3.2 g/dL (3.2-5.0); Alkaline Phosphatase 98 U/L (45-117); Anion Gap 7 (5-15); BUN 28 mg/dL (7-18); BUN/Creat Ratio 20.1 RATIO (10-20); Calcium,Total 10.1 mg/dL (8.5-10.1); Chloride 107 mmol/L (98-107); Creatinine, Serum 1.39 mg/dL (0.55-1.02); EST Glomerular Filtration Rate 39 mL/min (>60); Est Glom Filt Rate - Afr Amer 47 mL/min (>60); Globulin 3.9 g/dL (2.2-4.2); Glucose 133 mg/dL (74-106); Phosphorus 3.3 mg/dL (2.5-4.9); Potassium 3.8 mmol/L (3.5-5.1); Protein, Total 7.1 g/dL (6.4-8.2); Sodium Level 138 mmol/L (136-145)
[2021-08-14 11:12] LABS: Erythrocyte Sedimentation Rate 31 mm/hr (0-30)
[2021-08-14 11:17] LABS: CRP 4.32 mg/L (0.0-3.0)
== END 2021-08-28 18:00 | disposition home or self-care (01) ==
LOC: LAB 09:20
PROVIDERS: PCP Internal Medicine
DX: I30.0 Acute nonspecific idiopathic pericarditis (principal); I50.30 Unspecified diastolic (congestive) heart failure
CPT/HCPCS: 36415; 80053; 84100; 85027; 85652; 86140

== ENCOUNTER → 2021-08-20 14:43 | Outpatient (CLI) | payer MEDICARE, BC, SELFPAY ==
[2021-08-20 16:03] LABS: Synovial Fld Polynuclear WBC # 0.157 10^3/uL
[2021-08-20 17:14] LABS: RBC /Synovial Fluid 441 /mm3 (0)
[2021-08-20 17:55] LABS: AUTO B FLUID DILUENT BKGD CT WBC <0.1 RBC <0.01 (W<.1,R<.01); Appearance /Synovial Fluid Sl Cl (CLEAR); Color / Synovial Fluid Yellow (Pale Yellow); Source / Synovial Fluid L KNEE
[2021-08-20 17:56] LABS: Body Fluid QC Type(s) BF1Q,BF2Q; Lymph 43 %; Monocyte /Synovial Fluid 6 %; Neutrophil 23 % (0-25); Other Cell /Synovial Fluid 28 %
[2021-08-22 09:53] LABS: Pathologist Comment Reviewed
== END ==
PROVIDERS: PCP Internal Medicine; Visit Provider Specialist
DX: M25.462 Effusion, left knee (principal); Z96.652 Presence of left artificial knee joint
CPT/HCPCS: 87015; 87070; 87075; 87101; 87116; 87205; 87206; 89050; 89051

== ENCOUNTER → 2021-09-18 09:59 | Outpatient (CLI) | payer MEDICARE, BC, SELFPAY ==
--- NOTE | 2021-09-18 10:04 | BD_ITS ---
STUDY: DUAL ENERGY X-RAY ABSORPTIOMETRY / DXA REASON FOR EXAM: Female, 81 years old. M85.89 TECHNIQUE: Bone Mineral Density (BMD) measurements of lumbar spine and right hip were obtained. COMPARISON: Comparison is made with prior study dated 09/16/2019. FINDINGS: Lumbar Spine (L1-L4): g/cm2 (1.055) / T-score (0.0) / Z-score (2.7) Findings are suggestive of normal bone density with a low fracture risk. Right Femur Total: g/cm2 (0.809) / T-score (-1.1) / Z-score (1.0) Right Femoral Neck: g/cm2 (0.576) / T-score (-2.5) / Z-score (-0.1) The T-Scores on the most recent prior examination were: Lumbar Spine (L1-L4): There has been improvement of bone density since the previous examination. Right Femur Total: which represents an improvement of 3.1%. BD/Dexa Bone Density Study IMPRESSION: The patient is considered osteopenic as outlined below according to World Phil Organization (WHO) criteria with a high fracture risk. There has been improvement of bone density since the previous examination. Reference Information: The T-score is the number of standard deviations above or below the standard which is normal for young adults at their peak bone mineral density. The World Health Organization (WHO) interprets the T-scores as follows: Above -1 Normal bone density Between -1 and -2.5 Osteopenia Equal to / or below -2.5 Osteoporosis As a practical clinical guideline, osteopenia may be graded as follows: Mild -1 through -1.5 Moderate -1.6 through -2.0 Severe -2.1 through -2.4 The Z-score is the number of standard deviations above or below age-matched controls. A Z-score of less than -1.5 would be considered abnormal. References: 1. NIH Osteoporosis and Related Bone Diseases www osteo.org 2. International Society for Clinical Densitometry www iscd.org 3. National Osteoporosis Foundation www nof.org Electronically Signed: Soren Cortez MD at 15:43 EST , Service support ,
== END ==
PROVIDERS: PCP Internal Medicine; Referring Provider Internal Medicine; Visit Provider Internal Medicine
DX: M85.89 Other specified disorders of bone density and structure, multiple sites (principal)
CPT/HCPCS: 77080

== ENCOUNTER 2021-09-25 13:55 | Outpatient (RCR) | payer MEDICARE, BC, SELFPAY ==
[2021-08-29 02:24] VITALS: BMI 39.6
[2021-09-11 17:21] LABS: Hematocrit 38.5 % (37-47); Hemoglobin 12.2 g/dL (12.0-15.0); Mean Corp Hgb Conc 31.7 g/dL (32-36); Mean Corpuscular Hgb 30.3 pg (27.0-32.0); Mean Corpuscular Volume 95.5 fL (81-99); Mean Platelet Vol. 10.2 fl (6.2-12.0); Platelet Count 270 K/mm3 (150-450); RBC Distribution Width CV 13.3 % (11.6-14.6); RBC Distribution Width SD 47.1 fl (35.1-43.9); Red Blood Count 4.03 M/mm3 (4.2-5.4); White Blood Count 5.2 K/mm3 (4.4-11.0)
[2021-09-11 17:35] LABS: Erythrocyte Sedimentation Rate 27 mm/hr (0-30)
[2021-09-25 14:47] LABS: Erythrocyte Sedimentation Rate 28 mm/hr (0-30)
[2021-09-25 15:17] LABS: CRP < 2.90 mg/L (0.0-3.0)
== END 2021-09-29 18:00 | disposition home or self-care (01) ==
LOC: LAB 13:55
PROVIDERS: PCP Internal Medicine
DX: I30.0 Acute nonspecific idiopathic pericarditis (principal); I50.30 Unspecified diastolic (congestive) heart failure
CPT/HCPCS: 36415; 85027; 85652; 86140

== ENCOUNTER 2021-10-08 13:23 | Outpatient (RCR) | payer MEDICARE, BC, SELFPAY ==
[2021-09-30 04:11] VITALS: BMI 39.6
[2021-10-08 14:06] LABS: Hematocrit 39.4 % (37-47); Hemoglobin 12.5 g/dL (12.0-15.0); Mean Corp Hgb Conc 31.7 g/dL (32-36); Mean Corpuscular Hgb 29.4 pg (27.0-32.0); Mean Corpuscular Volume 92.7 fL (81-99); Mean Platelet Vol. 10.3 fl (6.2-12.0); Platelet Count 249 K/mm3 (150-450); RBC Distribution Width CV 13.2 % (11.6-14.6); RBC Distribution Width SD 44.8 fl (35.1-43.9); Red Blood Count 4.25 M/mm3 (4.2-5.4); White Blood Count 6.1 K/mm3 (4.4-11.0)
[2021-10-08 14:37] LABS: AST(SGOT) 27 U/L (15-37); Alanine Aminotransfer ALT/SGPT 42 U/L (13-56); Albumin, Serum 3.5 g/dL (3.2-5.0); Alkaline Phosphatase 85 U/L (45-117); Anion Gap 9 (5-15); BUN 47 mg/dL (7-18); BUN/Creat Ratio 23.5 RATIO (10-20); CRP < 2.90 mg/L (0.0-3.0); CRP, High Sensitivity Cardiac 2.22 mg/L; Calcium,Total 10.1 mg/dL (8.5-10.1); Chloride 103 mmol/L (98-107); EST Glomerular Filtration Rate 25 mL/min (>60); Est Glom Filt Rate - Afr Amer 31 mL/min (>60); Globulin 3.6 g/dL (2.2-4.2); Glucose 196 mg/dL (74-106); Phosphorus 3.8 mg/dL (2.5-4.9); Potassium 3.4 mmol/L (3.5-5.1); Protein, Total 7.1 g/dL (6.4-8.2); Sodium Level 139 mmol/L (136-145)
== END 2021-10-29 18:00 | disposition home or self-care (01) ==
LOC: LAB 13:23
PROVIDERS: PCP Internal Medicine
DX: I30.0 Acute nonspecific idiopathic pericarditis (principal); I50.30 Unspecified diastolic (congestive) heart failure
CPT/HCPCS: 36415; 80053; 84100; 85027; 86140; 86141

== ENCOUNTER 2021-12-05 11:37 | Outpatient (CLI) | payer MEDICARE, BC, SELFPAY ==
[2021-12-05 12:15] LABS: Albumin, Serum 3.9 g/dL (3.2-5.0); BUN 14 mg/dL (7-18); BUN/Creat Ratio 11.3 RATIO (10-20); Calcium,Total 10.1 mg/dL (8.5-10.1); Chloride 107 mmol/L (98-107); Creatinine, Serum 1.24 mg/dL (0.55-1.02); EST Glomerular Filtration Rate 44 mL/min (>60); Est Glom Filt Rate - Afr Amer 53 mL/min (>60); Glucose 112 mg/dL (74-106); Phosphorus 3.2 mg/dL (2.5-4.9); Potassium 4.3 mmol/L (3.5-5.1); Sodium Level 142 mmol/L (136-145)
[2021-12-05 12:28] LABS: PTHIN 83.9 pg/mL (18.4-80.1)
== END 2021-12-05 23:59 | disposition home or self-care (01) ==
LOC: POLAB3 11:42
PROVIDERS: PCP Internal Medicine; Visit Provider Internal Medicine Nephrology
DX: N17.9 Acute kidney failure, unspecified (principal)
CPT/HCPCS: 36415; 80069; 83970

== ENCOUNTER 2022-01-14 09:34 | Outpatient (CLI) | payer MEDICARE, BC, SELFPAY ==
[2022-01-14 10:08] LABS: Albumin, Serum 3.3 g/dL (3.2-5.0); BUN 21 mg/dL (7-18); BUN/Creat Ratio 17.4 RATIO (10-20); Calcium,Total 9.2 mg/dL (8.5-10.1); Chloride 111 mmol/L (98-107); Creatinine, Serum 1.21 mg/dL (0.55-1.02); EST Glomerular Filtration Rate 45 mL/min (>60); Est Glom Filt Rate - Afr Amer 55 mL/min (>60); Glucose 96 mg/dL (74-106); Phosphorus 3.2 mg/dL (2.5-4.9); Potassium 3.7 mmol/L (3.5-5.1); Sodium Level 144 mmol/L (136-145)
== END 2022-01-14 23:59 | disposition home or self-care (01) ==
LOC: LAB 09:35
PROVIDERS: PCP Internal Medicine; Visit Provider Internal Medicine Nephrology
DX: N18.4 Chronic kidney disease, stage 4 (severe) (principal)
CPT/HCPCS: 36415; 80069

== ENCOUNTER 2022-03-28 13:58 | Inpatient (IN) | payer MEDICARE, BC, SELFPAY ==
[2022-03-28 14:18] VITALS: BP 140/68; PULSE 59; RESP 18; TEMP 36.7; O2SAT 93
[2022-03-28 14:42] VITALS: BMI 36.3
[2022-03-28] MEDS: Aspirin 81 MG TAB.CHEW PO (17:43)
[2022-03-28] MEDS: Ondansetron ODT 4 MG Tablet PO (17:43)
[2022-03-28 19:39] VITALS: PULSE 51; RESP 18; TEMP 36.6; O2SAT 96
[2022-03-28] MEDS: traMADol 50 MG Tablet PO (20:20)
[2022-03-28] MEDS: Bisacodyl 10 MG Suppository RC (20:20)
[2022-03-28 20:35] VITALS: BP 214/87; PULSE 61
[2022-03-28] MEDS: Latanoprost 0.005% 1 Bottle 1 DRP EACH EYE (20:39)
[2022-03-28] MEDS: Acetaminophen 500 MG Tablet 1000 MG PO (20:40)
[2022-03-28] MEDS: Doxycycline 100 MG CAPSULE PO (20:40)
[2022-03-28] MEDS: Senna/Docusate Sodium 1 Tablet 2 TABLET PO (20:40)
[2022-03-28] MEDS: Colchicine 0.6 MG TABLET PO (20:41)
[2022-03-28 20:53] VITALS: BP 214/87; PULSE 61
[2022-03-28] MEDS: hydrALAZINE 10 MG Tablet PO (20:53)
[2022-03-28 22:17] VITALS: BP 166/55; PULSE 56
[2022-03-29] VITALS (8 sets, daily range): BP systolic 124–211; BP diastolic 64–73; PULSE 48–60; RESP 16–17; TEMP 36.6–36.7; O2SAT 98
--- NOTE | 2022-03-29 00:30 | NURSING ---
PT GIVEN 1000 ML SOAP SUDS ENEMA AND PASSES LARGE AMT OF BROWN BM. PT TOLERATES ENEMA WELL. PT REPORTS ABDOMEN FEELS BETTER AFTER BM.
[2022-03-29] MEDS: hydrALAZINE 10 MG Tablet PO ×3 (01:14→23:16)
[2022-03-29 05:35] LABS: Absolute Lymphocyte Count 1.41 X10^3/uL (0.83-4.51); Absolute Neutrophil Count 4.9 X10^3/uL (2.0-7.7); Basophil# 0.01 X10^3/uL; Basophil% 0.1 % (0-1); Eosinophil# 0.12 X10^3/uL; Eosinophils% 1.7 % (0-5); Hematocrit 33.5 % (37-47); Hemoglobin 10.5 g/dL (12.0-15.0); Lymphocyte # 1.41 X10^3/ul (0.83-4.51); Lymphocyte % 19.9 % (19-41); Mean Corp Hgb Conc 31.3 g/dL (32-36); Mean Corpuscular Volume 98.8 fL (81-99); Mean Platelet Vol. 10.1 fl (6.2-12.0); Monocyte# 0.66 X10^3/uL; Monocyte% 9.3 % (0-10); NRBC Flagged by Analyzer 0 % (0-5); Neutrophil # 4.86 X10^3/uL (2.7-7.7); Neutrophil % 68.7 % (47-70); Platelet Count 209 K/mm3 (150-450); RBC Distribution Width CV 14.2 % (11.6-14.6); RBC Distribution Width SD 50.7 fl (35.1-43.9); Red Blood Count 3.39 M/mm3 (4.2-5.4); White Blood Count 7.1 K/mm3 (4.4-11.0)
[2022-03-29] MEDS: traMADol 50 MG Tablet PO ×2 (06:01→15:23)
[2022-03-29] MEDS: Acetaminophen 500 MG Tablet 1000 MG PO ×3 (06:01→23:15)
[2022-03-29] MEDS: Levothyroxine 125 MCG Tablet PO (06:01)
[2022-03-29 06:10] LABS: Anion Gap 3 (5-15); BUN 26 mg/dL (7-18); BUN/Creat Ratio 23.4 RATIO (10-20); Calcium,Total 9.4 mg/dL (8.5-10.1); Chloride 107 mmol/L (98-107); Creatinine, Serum 1.11 mg/dL (0.55-1.02); EST Glomerular Filtration Rate 50 mL/min (>60); Est Glom Filt Rate - Afr Amer 61 mL/min (>60); Estimated Creatinine Clearance 51.14 ml/min; Glucose 104 mg/dL (74-106); Magnesium 2.2 mg/dL (1.6-2.6); Phosphorus 2.1 mg/dL (2.5-4.9); Potassium 3.8 mmol/L (3.5-5.1); Sodium Level 139 mmol/L (136-145)
[2022-03-29] MEDS: Glimepiride 2 MG Tablet PO (08:24)
[2022-03-29] MEDS: Aspirin 81 MG TAB.CHEW PO ×2 (08:24→16:43)
[2022-03-29] MEDS: Pantoprazole Sodium 40 MG Tablet PO (08:24)
[2022-03-29] MEDS: Senna/Docusate Sodium 1 Tablet 2 TABLET PO ×2 (08:24→23:14)
[2022-03-29] MEDS: Doxycycline 100 MG CAPSULE PO ×2 (08:24→23:15)
[2022-03-29] MEDS: Colchicine 0.6 MG TABLET PO ×2 (08:24→23:14)
[2022-03-29] MEDS: Cholecalciferol (Vit D3) 125 MCG CAPSULE (5,000 UNITS) PO (08:24)
--- NOTE | 2022-03-29 10:06 | PCM.HP.STD ---
[facility] - General General Date of Admission: 03/28/22 Date of Service: 03/29/22 Chief Complaint: Pain/Debility due to Left knee arthroplasty revision. HPI Narrative LYNETTE WEBSTER, is a 82 YO F with PMH of HTN, HLD, DM II, CRF stage 3a, obesity, LVH, OA, sinus pauses leading to PM insertion, hyperthyroidism (S/P thyroidectomy), hx of parathyroidectomy, CLIFFORD, non-compliance with CPAP, glaucoma history of pericerdial effusion (was on Prednisone for 13 months and also Colchicine) and a L TKR in 2018 or 2019. She continued to have pain in the left knee and saw Dr. Rodrigez. She was recently admitted to [facility] for a revision of failed L TKR by Dr. Rodrigez. Post-op course was complicated by Post-op delirium. Post operatively she was seen by PT and OT and acute rehab was recommended. She was transferred to the acute inpt unit at [facility] on 03/28/22 for 3 hours of therapy daily to restore function/independence at or near her level prior to the recent surgery. 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 Long Guthrie at [facility] PCP is in [place] and she is interested in finding a PCP who is in [place] because she now lives in [place]. 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 [facility] Medical History (Updated 03/29/22 @ 13:[address] Lynette Hutchins, ) Chronic renal failure, stage 3a Diabetes mellitus, type 2 Glaucoma Gout HLD (hyperlipidemia) HTN (hypertension) LVH (left ventricular hypertrophy) Osteoarthritis Pericardial effusion Home Medications glimepiride 1 mg tablet 2 mg PO DAILY blood sugar 02/14/18 [History Last Taken 08/12/20] colchicine 0.6 mg tablet 0.6 mg PO BID gout 07/25/19 [History Last Taken 08/13/20] ondansetron 4 mg disintegrating tablet 4 mg PO Q8H PRN PRN Nausea 08/23/20 [History Last Taken Unknown] Oral Appliance #1 ea 03/19/22 [Rx Last Taken Unknown] vitamin B12 500 mcg-folic acid 400 mcg tablet 1 tab PO DAILY supplement 03/19/22 [History Last Taken Unknown] acetaminophen 500 mg tablet 1,000 mg PO Q8 pain 03/28/22 [History Last Taken Unknown] aspirin 81 mg chewable tablet 81 mg PO BIDCM DVT Prophylaxis 03/28/22 [History Last Taken Unknown] cholecalciferol (vitamin D3) 125 mcg (5,000 unit) tablet (Vitamin D3) 125 mcg PO DAILY supplement 03/28/22 [History Last Taken Unknown] doxycycline monohydrate 100 mg capsule 100 mg PO BID Check with primary doctor 03/28/22 [History Last Taken 03/28/22 08:00] latanoprost 0.005 % eye drops 1 drp EACH EYE QHS Check with primary doctor 03/28/22 [History Last Taken Unknown] levothyroxine 125 mcg tablet 125 mcg PO DAILY Check with primary doctor 03/28/22 [History Last Taken Unknown] losartan 100 mg tablet 100 mg PO DAILY blood pressure 03/28/22 [History Last Taken Unknown] pantoprazole 20 mg tablet,delayed release 40 mg PO DAILY Check with primary doctor 03/28/22 [History Last Taken 03/28/22 06:00] tramadol 50 mg tablet 50 - 100 mg PO Q6H PRN Pain 03/28/22 [History Last Taken Unknown] Allergy/AdvReac Type Severity Reaction Status Date / Time benazepril [From Lotensin] Allergy Unknown Verified 03/19/22 07:48 Iodine and Iodide Containing Allergy Shortness Verified 08/23/20 06:44 Produc of breath meperidine [From Demerol] Allergy Unknown Verified 08/23/20 06:44 metformin [From Janumet] Allergy Pain in Verified 08/23/20 06:44 joints Penicillins Allergy Hives Verified 03/29/22 13:22 propoxyphene [From Darvon] Allergy Unknown Verified 08/23/20 06:44 shellfish derived Allergy Shortness Verified 03/29/22 13:22 of breath sitagliptin [From Janumet] Allergy Pain in Verified 08/23/20 06:44 joints spironolactone Allergy Unknown Verified 08/23/20 06:44 hydrochlorothiazide AdvReac NEEDS Verified 08/23/20 06:44 FOLLOW-UP lisinopril AdvReac NEEDS Verified 08/23/20 06:44 FOLLOW-UP metoprolol AdvReac Shortness Verified 08/23/20 06:44 of breath simvastatin AdvReac Pain in Verified 08/23/20 06:44 joints Xarelto AdvReac Severe pericardial Uncoded 03/29/22 13:26 effusion Family History (Updated 03/29/22 @ 13:[address] Lynette Hutchins DO) Mother Cancer Uterine Thyroid disorder Father Cancer lung Surgical History (Updated 03/29/22 @ 10:[address] Lynette Hutchins DO) History of parathyroidectomy (~2009) History of thyroidectomy, total (~2009) History of tonsillectomy and adenoidectomy History of total hysterectomy Status post revision of total knee replacement Social History (Updated 03/29/22 @ 13:[address] Lynette Hutchins DO) household members: spouse and other number of children: 2 Smoking Status: Never smoker alcohol intake: never substance use type: does not use caffeine: No ROS Constitutional Constitutional: Reports poor appetite and other Details: Has had some nausea and decreased appetite since the surgery. ; Denies change in weight, chills, fatigue, fever(s), night sweats or weakness Eyes Eyes: Denies blurry vision, change in vision, eye pain or loss of vision ENT HEENT: Denies abnormal hearing, dysphagia, headache(s), hearing loss, nasal congestion or sore throat Cardiovascular Cardiovascular: Reports other Details: She complains of SOB at different times.....sometimes when she is driving, sometimes walking, sometimes when just sitting around. ; Denies chest pain, dyspnea on exertion, edema, lightheadedness, orthopnea, palpitations, paroxysmal nocturnal dyspnea or syncope Respiratory/Chest Respiratory/Chest: Denies cough, dyspnea, shortness of breath at rest, shortness of breath with exertion or wheezing Gastrointestinal Gastrointestinal: Reports constipation and nausea; Denies abdominal pain, diarrhea, dyspepsia, hematemesis or hematochezia Genitourinary Genitourinary: Denies dysuria, hematuria, nocturia, urinary frequency, urinary hesitancy, urinary incontinence or urinary urgency Musculoskeletal Musculoskeletal: Reports joint pain; Denies back pain, joint swelling or neck pain Integumentary Integumentary: Reports change in hair and dry skin; Denies jaundice or rash Neurologic Neurologic: Reports confusion and other Details: Has had confusion only since the surgery. ; Denies disequilibrium, dizziness, focal weakness, headache(s), paresthesias, seizures or tremor(s) Psychiatric Psychiatric: Denies anxiety, depression, homicidal ideation or suicidal ideation Endocrine Endocrinology: Denies change in body appearance, polydipsia or polyuria Hematologic/Lymphatic Hematologic/Lymphatic: Denies easy bleeding, easy bruising or lymphadenopathy Allergic/Immunologic Allergic/Immunologic: Denies rhinitis, eczemia or asthma Vital Signs Vital Signs Vital Signs: 03/28/22 14:18 03/28/22 19:39 03/28/22 20:35 Temperature 98.0 F 97.9 F Temperature Source Oral Temporal Pulse Rate 59 L 51 L 61 Pulse Strength Respiratory Rate 18 18 Respiratory Effort Respiratory Depth Respiratory Pattern Blood Pressure 140/68 H 214/87 H Blood Pressure Mean 92 129 Blood Pressure Source Monitor Monitor Blood Pressure Position Semi-Fowlers Semi-Fowlers Blood Pressure Location Right Arm Right Arm Pulse Ox 93 96 Oxygen Delivery Method Room Air Room Air 03/28/22 20:53 03/28/22 20:59 03/28/22 22:17 Temperature Temperature Source Pulse Rate 61 56 L Pulse Strength Normal (2+) Respiratory Rate Respiratory Effort Respiratory Depth Respiratory Pattern Blood Pressure 214/87 H 166/55 H Blood Pressure Mean 92 Blood Pressure Source Monitor Blood Pressure Position Semi-Fowlers Blood Pressure Location Right Arm Pulse Ox Oxygen Delivery Method 03/28/22 22:00 03/29/22 01:11 03/29/22 01:14 Temperature Temperature Source Pulse Rate 60 60 Pulse Strength Respiratory Rate Respiratory Effort Normal Non-Labored Respiratory Depth Normal Respiratory Pattern Normal Blood Pressure 198/71 H 198/71 H Blood Pressure Mean 113 Blood Pressure Source Monitor Blood Pressure Position Semi-Fowlers Blood Pressure Location Right Arm Pulse Ox Oxygen Delivery Method Room Air 03/29/22 05:23 03/29/22 06:01 03/29/22 09:00 Temperature 97.8 F Temperature Source Oral Pulse Rate 48 L 48 L 53 L Pulse Strength Respiratory Rate 16 Respiratory Effort Respiratory Depth Respiratory Pattern Blood Pressure 160/67 H 160/67 H 124/73 H Blood Pressure Mean 98 90 Blood Pressure Source Monitor Monitor Blood Pressure Position Semi-Fowlers Semi-Fowlers Blood Pressure Location Right Arm Right Arm Pulse Ox 98 Oxygen Delivery Method Room Air Weight Weight: 179 lb 10.828 oz Body Mass Index (BMI) 36.3 Physical Exam Narrative Lynette was sitting in the recliner at the bedside when I entered her room today. she appeared comfortable and in no distress. She ate very little of her lunch. she is pleasant, talkative and makes good eye contact. Const alert, oriented x3 and no apparent distress Constitutional Narrative: Well developed, alert and oriented X 3. General Appearance: cooperative and comfortable HEENT HEENT Narrative: MM are dry. No oral lesions. Eyes Eyes Narrative: Pupils are equal round and reactive to light. There is no scleral icterus and no conjunctival injection. No eye discharge and no mattering of the eyelids. Extraocular muscles are intact. Neck no lymphadenopathy, supple and no JVD Neck Narrative: + BL bruits in carotids vs radiation of the MM. Resp normal respiratory effort, no use of accessory muscles and clear to auscultation bilaterally Resp Narrative: Not tachypneic and no conversational dyspnea. Excellent air exchange throughout. Cardio regular rate, regular rhythm, S1 normal heart sound, S2 normal heart sound, no rub and no gallops Cardio Narrative: she has a 3/6 KULDIP at the second RICS which radiates to the LVOT, LLSB. apex and into the left axilla. GI normal to inspection, nondistended, normoactive bowel sounds and non-tender GI Narrative: No guarding with palpation. Extremity no clubbing, cyanosis or edema Extremity Narrative: Negative Ignacio's and Tania's signs. DP pulses are 3/3 BL and she has intact sensation in both feet. Skin Skin Narrative: No rashes, no skin breakdown. Wound Narrative: The incision is currently dressed with a silver impregnated Mepilex which is not due to be removed yet. There is no erythema aound the dressing and no dried drainage on the dressing. Neuro oriented x3, CN's II-XII intact bilaterally and no focal motor deficits Neuro Narrative: Having a little trouble with word finding but she is alert and oriented and appropriate. Motor Exam: strength 5/5 throughout Psych affect normal Psych Narrative: Appropriate, making good eye contact. Able to stay on topic and focus. No flight of ideas. Does not appear anxious or depressed. Conversant and relating well to staff. Results Lab / Micro Data Result Diagrams: 03/29/22 05:26 03/29/22 05:26 Labs: Laboratory Results - last 24 hr 03/29/22 05:26: WBC 7.1, RBC 3.39 L, Hgb 10.5 L, Hct 33.5 L, MCV 98.8, MCH 31.0, MCHC 31.3 L, RDW Std Deviation 50.7 H, RDW Coeff of Ignacia 14.2, Plt Count 209, MPV 10.1, Immature Gran % (Auto) 0.300, Neut % (Auto) 68.7, Lymph % (Auto) 19.9, [place] % (Auto) 9.3, Eos % (Auto) 1.7, Baso % (Auto) 0.1, Absolute Neuts (auto) 4.9, Absolute Lymphs (auto) 1.41, Nucleated RBC % 0 03/29/22 05:26: Sodium 139, Potassium 3.8, Chloride 107, Carbon Dioxide 29.0, Anion Gap 3 L, BUN 26 H, Creatinine 1.11 H, Estim Creat Clear Calc 51.14, Est GFR (MDRD) Af Amer 61, Est GFR (MDRD) Non-Af 50 L, BUN/Creatinine Ratio 23.4 H, Glucose 104, Calcium 9.4, Phosphorus 2.1 L, Magnesium 2.2 Assessment & Plan Assessment/Plan (1) Physical debility: (2) Failed total knee replacement: (3) Status post revision of total knee replacement: (4) Acute blood loss anemia: (5) Hypophosphatemia: (6) PAF (paroxysmal atrial fibrillation): (7) Sinus pause: (8) Status post placement of cardiac pacemaker: (9) Obesity: QUALIFIERS: Obesity classification: unspecified obesity classification Obesity type: unspecified obesity type Serious obesity comorbidity presence: unspecified whether serious comorbidity present Qualified Code(s): E66.9 - Obesity, unspecified (10) CLIFFORD (obstructive sleep apnea): PLAN: Non-compliant with CPAP (11) Hypersomnolence: (12) History of parathyroidectomy: (13) History of thyroidectomy, total: (14) Nonrheumatic mitral valve insufficiency: (15) Non-rheumatic tricuspid valve insufficiency: (16) HLD (hyperlipidemia): QUALIFIERS: Hyperlipidemia type: unspecified Qualified Code(s): E78.5 - Hyperlipidemia, unspecified (17) HTN (hypertension): QUALIFIERS: Hypertension type: essential hypertension Qualified Code(s): I10 - Essential (primary) hypertension (18) LVH (left ventricular hypertrophy): (19) Diabetes mellitus, type 2: (20) Osteoarthritis: (21) Chronic renal failure, stage 3a: (22) Glaucoma: PLAN: Plan PLAN PT for gait stability OT for ADL's ST for evaluation - if the trouble with word finding persists Analgesics as needed Bowel protocol Fall precautions Assess for Anxiety/Depression GI prophylaxis with pantoprazole DVT prophylaxis with ASA 81 mg BID Follow up with Dr. Blaise Winslow(PCP), Dr. Rodrigez and Dr. Ravi Hoffman (cardiology) Following DC from IP Rehab AM lab including BMP, CBC, Mag and Phos Will supplement the phos with neutra-phos and recheck next week. Tramadol decreased to 50 mg Q6H PRN in light of CRF 3a. Continue Doxycycline to finish out 2 weeks of tx per orthopedics Attempt to find out how long she will need to be on the Colchicine BID........since the creat clearance is less than 60 may consider decreasing the dose to 0.6 mg once a day. Recheck the HH in 1 week. Will have the SW give her a list of local PCP's in [place] accepting new patients and will also recommend she follow up with Dr. Pate going forward. Unit Exclusion This patient is an acute care inpatient being housed in the excluded unit because of capacity issues related to the disaster or emergency.: Yes Charges/Coding Visit Charges Inpatient E&M: 08166 Init Hosp L3
[2022-03-29] MEDS: Losartan Potassium 100 MG Tablet PO (11:06)
[2022-03-29] MEDS: Na Biphos/Potassium Phosphate PACKET 1 PACKET PO ×2 (14:17→23:16)
--- NOTE | 2022-03-29 14:20 | PCM.RU.PYE ---
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 Rodrigez on 03/26/22. Status Changes from Prescreening?: No changes Identified Actual Problem List:: Skin Intergrity, Pain, ALteration in Cmfrt, Cognitve Impr/Memory Loss (suspect medication induced), Bowel, Constipation, Alteration in Sleep, Alteration in Nutrition, Mobility Impaired, Self Care Deficit, BP, Hypertension and Alteration-Leisure Activ. Potential Problem List:: DVT, Bleeding, Infection, UTI, Aspiration, Falls, Skin Integrity and Depression Risk of Complications DVT: ALIX Parks and - (ASA 81 mg BIDper orthopedics. No hx of DVT's in the past. ) Bleeding: Monitor Lab Values, Nursing to Teach Precautions for anti-coagulation therapy., Wound, if applicable, to be assessed every shift. and Stroke patients assessed for lethargy or change in status. Infection: Clinical Staff to Monitor for S/S of infection: and S/S of infection include fever, redness, warmth, etc. Urinary Tract Infection: Monitor for frequency, burning, discomfort, or incontinence. and Nursing will obtain urine sample for urinalysis and C&S when ordered. Aspiration: Clinical staff will monitor for coughing, drooling, congestion., Speech will evaluate swallowing and dsyphasia. and Nursing will monitor patient swallowing during meals. Falls: Patient will be evaluated for Fall Precautions and Patient will be placed on Fall Precautions as indicated per protocol. Skin Breakdown: Nursing will assess skin daily using assessment tool. and Nursing will place on Skin Breakdown Precautions as indicated. Pain: Clinical staff will assess patient's pain level per protocol., Medications will be given, if needed, and the pain level reassessed. and Other methods: Massage, distraction, decrease stimulus, etc. used PRN. Goals Patient will remain: free from falls and or injury at time of discharge. Patient will perform bed mobility at: MOD I level of assist. Patient will complete transfers from bed to chair at: MOD I level of assist. Patient will ambulate: with LRD and - (350 ftwithLRD on various surfaces at [facility]LA) Patient will complete upper body dressing at: MOD I level of assist. Patient will complete lower body dressing at: MOD I level of assist. (with AE) Patient will complete toileting at: MOD I level of assist. Patient will perform bathing at: MOD I level of assist. Patient will complete grooming at: MOD I level of assist. Patient will complete home management skills at: MOD I level of assist. Patient will achieve: - (1 curb step and 21 regular steps with 2 HR's) Patient will have pain level of: of 3 or less Patient's skin will: remain intact Patient will receive: adequate nutrition. Discharge Planning Estimated Length of stay (days): 14 Anticipated D/C Destination: Home with Home Health Was Preadmission Assessment Accurate?: Yes
[2022-03-29 15:46] LABS: Bacteria 0 SEEN /hpf (None Seen); Mucous, Urine 0 SEEN /hpf (<or=2+); Red Blood Cells-Urine 0 SEEN /hpf (0-5); White Blood Cells 0 SEEN /hpf (0-5)
[2022-03-29 16:02] LABS: Color, Urine Yellow (Yellow); Glucose, Dipstick Normal (Normal); Ketone-Dipstick Negative (Negative); Leukocyte Esterase-Dipstick 25 /ul (Negative); Nitrite-Dipstick Negative (Negative); Occult Blood-Urine 10 /ul (Negative); Protein-Dipstick 100 mg/dl (Negative); Urine Bilirubin Dipstick Negative (Negative); Urine Clarity Clear (Clear); Urine Urobilinogen Normal (Normal)
[2022-03-29 16:18] LABS: Squamous Epithelial Cells - UA 0-5 SEEN /hpf (5-10)
[2022-03-29 17:21] LABS: Bedside Glucose 133 mg/dL (74-106)
[2022-03-29 22:55] LABS: Bedside Glucose 84 mg/dL (74-106)
[2022-03-29] MEDS: Latanoprost 0.005% 1 Bottle 1 DRP EACH EYE (23:17)
[2022-03-30] VITALS (10 sets, daily range): BP systolic 196–247; BP diastolic 62–85; PULSE 55–75; RESP 14–16; TEMP 36.2–36.6; O2SAT 98–99
[2022-03-30] MEDS: Levothyroxine 125 MCG Tablet PO (05:30)
[2022-03-30] MEDS: Na Biphos/Potassium Phosphate PACKET 1 PACKET PO ×3 (05:30→22:26)
[2022-03-30] MEDS: Acetaminophen 500 MG Tablet 1000 MG PO ×3 (05:30→22:25)
[2022-03-30 06:06] LABS: Bedside Glucose 66 mg/dL (74-106)
[2022-03-30] MEDS: hydrALAZINE 10 MG Tablet PO ×3 (07:18→17:42)
[2022-03-30 07:31] LABS: Bedside Glucose 104 mg/dL (74-106)
--- NOTE | 2022-03-30 07:33 | NURSING ---
Pt BS this am 66. Pt was given juice. Pt BP 236/66, pt was given hydralazine.
[2022-03-30] MEDS: Glimepiride 2 MG Tablet PO (08:33)
[2022-03-30] MEDS: Aspirin 81 MG TAB.CHEW PO ×2 (08:33→16:57)
[2022-03-30] MEDS: Colchicine 0.6 MG TABLET PO ×2 (08:34→22:26)
[2022-03-30] MEDS: Doxycycline 100 MG CAPSULE PO ×2 (08:34→22:26)
[2022-03-30] MEDS: Pantoprazole Sodium 40 MG Tablet PO (08:35)
[2022-03-30] MEDS: Losartan Potassium 100 MG Tablet PO (08:35)
[2022-03-30] MEDS: Senna/Docusate Sodium 1 Tablet 2 TABLET PO ×2 (08:36→22:25)
[2022-03-30] MEDS: Cholecalciferol (Vit D3) 125 MCG CAPSULE (5,000 UNITS) PO (08:36)
[2022-03-30 11:15] LABS: Bedside Glucose 132 mg/dL (74-106)
[2022-03-30] MEDS: NIFEdipine 60 MG Tablet PO (15:52)
[2022-03-30 16:22] LABS: T4 Free Direct 1.12 ng/dL (0.76-1.46)
[2022-03-30 17:40] LABS: Bedside Glucose 100 mg/dL (74-106)
[2022-03-30] MEDS: ALPRAZolam 0.5 MG Tablet PO (18:41)
[2022-03-30] MEDS: hydrALAZINE 50 MG Tablet PO (18:41)
--- NOTE | 2022-03-30 19:23 | NURSING ---
Dr. Hutchins aware of all BP readings, patient asymptomatic. Patients will bring in her home medication bottles for this nurse to see tomorrow and her home BP machine that the says is broken for this nurse to assess.
[2022-03-30] MEDS: Latanoprost 0.005% 1 Bottle 1 DRP EACH EYE (22:27)
[2022-03-30 23:11] LABS: Bedside Glucose 105 mg/dL (74-106)
[2022-03-30] MEDS: Menthol/Lanolin/Calamine/Znox 113 GM Tube 1 APPLIC TOPICAL (23:49)
[2022-03-31] VITALS (7 sets, daily range): BP systolic 119–195; BP diastolic 57–76; PULSE 54–65; RESP 16–17; TEMP 36.1–36.2; O2SAT 96–98
--- NOTE | 2022-03-31 | NURSING ---
Pts heartrate 54 and pt was due for her Hydralazine 50mg dose. This nurse spoke with and stated medication was ok to give.
[2022-03-31] MEDS: hydrALAZINE 50 MG Tablet PO ×4 (00:05→17:30)
[2022-03-31] MEDS: Levothyroxine 125 MCG Tablet PO (06:21)
[2022-03-31] MEDS: Acetaminophen 500 MG Tablet 1000 MG PO ×3 (06:21→21:28)
[2022-03-31] MEDS: Na Biphos/Potassium Phosphate PACKET 1 PACKET PO ×3 (06:22→21:27)
[2022-03-31 06:50] LABS: Bedside Glucose 103 mg/dL (74-106)
[2022-03-31] MEDS: Aspirin 81 MG TAB.CHEW PO ×2 (08:35→17:30)
[2022-03-31] MEDS: Cholecalciferol (Vit D3) 125 MCG CAPSULE (5,000 UNITS) PO (08:35)
[2022-03-31] MEDS: Doxycycline 100 MG CAPSULE PO ×2 (08:35→21:27)
[2022-03-31] MEDS: Pantoprazole Sodium 40 MG Tablet PO (08:35)
[2022-03-31] MEDS: Losartan Potassium 100 MG Tablet PO (08:36)
[2022-03-31] MEDS: Colchicine 0.6 MG TABLET PO ×2 (08:37→21:26)
[2022-03-31] MEDS: NIFEdipine 60 MG Tablet PO (08:37)
[2022-03-31] MEDS: Senna/Docusate Sodium 1 Tablet 2 TABLET PO ×2 (08:38→21:28)
[2022-03-31] MEDS: traMADol 50 MG Tablet PO (08:40)
[2022-03-31] MEDS: Menthol/Lanolin/Calamine/Znox 113 GM Tube 1 APPLIC TOPICAL ×2 (11:42→21:25)
[2022-03-31] MEDS: Insulin Lispro 100 UNIT/ML INSULN.PEN SC ×3 (11:45→22:19)
[2022-03-31 12:00] LABS: Bedside Glucose 160 mg/dL (74-106)
[2022-03-31 16:30] LABS: Bedside Glucose 150 mg/dL (74-106)
[2022-03-31] MEDS: Latanoprost 0.005% 1 Bottle 1 DRP EACH EYE (21:30)
[2022-03-31 22:50] LABS: Bedside Glucose 176 mg/dL (74-106)
[2022-04-01] VITALS (11 sets, daily range): BP systolic 132–177; BP diastolic 60–78; PULSE 51–61; RESP 16; TEMP 36.3–36.7; O2SAT 98–100
[2022-04-01] MEDS: Ondansetron ODT 4 MG Tablet PO (00:13)
--- NOTE | 2022-04-01 00:27 | NURSING ---
Pt used call light for use of restroom, upon entering pt was bent over in bed vomiting into green bag stating she felt sick. Pt given cool towel on her neck, abbie rom, and Zofran per order. Pt states feeling better after med given. Will leave note in hand off for snack with HS meds.
[2022-04-01] MEDS: hydrALAZINE 50 MG Tablet PO ×5 (01:04→23:58)
--- NOTE | 2022-04-01 03:55 | NURSING ---
Reviewed and agree with LOOM FIXER APPRENTICE documentation and assessment charting.
[2022-04-01] MEDS: Levothyroxine 125 MCG Tablet PO (05:44)
[2022-04-01] MEDS: Acetaminophen 500 MG Tablet 1000 MG PO ×3 (05:45→21:31)
[2022-04-01] MEDS: Na Biphos/Potassium Phosphate PACKET 1 PACKET PO (05:45)
[2022-04-01 07:26] LABS: Bedside Glucose 110 mg/dL (74-106)
[2022-04-01] MEDS: traMADol 50 MG Tablet PO (08:22)
[2022-04-01] MEDS: Aspirin 81 MG TAB.CHEW PO ×2 (08:22→17:13)
[2022-04-01] MEDS: Doxycycline 100 MG CAPSULE PO ×2 (08:22→21:32)
[2022-04-01] MEDS: Losartan Potassium 100 MG Tablet PO ×2 (08:23→21:33)
[2022-04-01] MEDS: Pantoprazole Sodium 40 MG Tablet PO (08:23)
[2022-04-01] MEDS: Cholecalciferol (Vit D3) 125 MCG CAPSULE (5,000 UNITS) PO (08:23)
[2022-04-01] MEDS: Colchicine 0.6 MG TABLET PO ×2 (08:23→21:33)
[2022-04-01] MEDS: Senna/Docusate Sodium 1 Tablet 2 TABLET PO ×2 (08:24→21:31)
[2022-04-01] MEDS: NIFEdipine 60 MG Tablet PO (08:24)
[2022-04-01] MEDS: Menthol/Lanolin/Calamine/Znox 113 GM Tube 1 APPLIC TOPICAL ×2 (08:26→21:33)
[2022-04-01 11:11] LABS: Bedside Glucose 120 mg/dL (74-106)
--- NOTE | 2022-04-01 11:30 | PCM.PROGNOTE ---
Subjective Subjective Afebrile VSS - BP's were markedly elevated. Nursing had her bring in all her medication bottles from home and she is supposed to be taking Hydralazine 50 mg TID but, this was not on the med list from the previous hospital. Unsure whether she was taking at home. They have a BP cuff at home and her BP's are always high per the . The Hydralazine 50 mg Q6H was added to her drug regimen and the BP is better but not at goal yet. She remains on Cozaar 100 mg and also on Procardia XL 60 mg. BP's were checked in both arms and there is no significant difference. Maintaining appropriate oxygen saturation on RA Oral intake is improving. She ate 100% of her breakfast this morning. Blood sugar record was reviewed. Blood sugars are all less than 180 and she is on a sliding scale. She has only had 2 units of Lispro in the past 48 hours. Discussed with nursing - no problems that need addressed other than the BP. Reviewed the PT/OT notes - She has an ST consult ordered for tomorrow to evaluate cognition. Medication list reviewed. Free T4 was normal. Naty tells me that her pain is adequately controlled. She denies chest pain, calf pain, shortness of breath, palpitations, lightheadedness, dysuria, abdominal pain/nausea/vomiting. Her bowels are moving regularly now and the constipation has resolved. Oral intake has increased significantly and she is no longer nauseated.....this may be related to the very high BP's? Objective Data Objective Data Vital Signs: Vital Signs Temp Pulse Resp BP Pulse Ox O2 Del Method 97.4 F L 55 L 16 148/76 H 98 Room Air 04/01/22 07:27 04/01/22 07:27 04/01/22 07:27 04/01/22 07:34 04/01/22 07:35 04/01/22 07:35 Oxygen Delivery Method Room Air Weight: 173 lb 15.115 oz Body Mass Index (BMI) 36.3 Intake & Output: Intake and Output for Last 24 Hours 03/30/22 03/31/22 04/01/22 23:59 23:59 23:59 Intake Total 300 / 300 Output Total 650 / 650 925 / 925 Balance -350 / -350 -925 / -925 Lab / Micro Data Result Diagrams: 04/02/22 05:51 04/02/22 05:51 Labs: Laboratory Results - last 24 hr 03/31/22 11:44: POC Glucose 160 H 03/31/22 16:25: POC Glucose 150 H 03/31/22 22:16: POC Glucose 176 H 04/01/22 05:52: POC Glucose 110 H 04/01/22 11:01: POC Glucose 120 H Micro: Microbiology 03/29/22 15:30 Urine Catheter - Catheter Urine Culture - Final Culture exhibits no growth. Physical Exam Const alert, oriented x3 and no apparent distress General Appearance: cooperative Resp normal respiratory effort, normal air movement and clear to auscultation bilaterally Cardio regular rate, regular rhythm and no gallops GI normal to inspection, nondistended, normoactive bowel sounds, soft to palpation and non-tender Extremity normal capillary refill and no calf tenderness Skin Wound Narrative: Left knee effusion is healing. Neuro CN's II-XII intact bilaterally, no focal motor deficits and no sensory deficits noted Psych cooperative Appearance: appropriate Assessment & Plan Assessment/Plan (1) Physical debility: PLAN: Continue therapy. She is doing well and is cooperative with everything that is asked of her. (2) Acute blood loss anemia: PLAN: Recheck an HH in the AM (3) Failed total knee replacement: (4) Status post revision of total knee replacement: (5) HTN (hypertension): QUALIFIERS: Hypertension type: essential hypertension Qualified Code(s): I10 - Essential (primary) hypertension PLAN: She has resistant HTN. I do not think she has been compliant with her medications at home. With untreated CLIFFORD I think her memory and concentration are not what they should be. Will change the Cozaar to HS. Give the Procardia XL in the AM and Give the hydralazine 50 TID......she will not be able to take this every 6 hours at home without missing a dose. I suspect she has secondary HTN but can not really say this until we have had her on consistent medications for 5-7 days and it remains uncontrolled. Recheck a BMP in the AM. Free T4 is WNL. Will check an AM cortisol. I doubt pheo but, if she remains uncontrolled after she has been on 3 meds for at least 5 days will need to check 24H urine for meta-nephrins at some point. Charges/Coding Visit Charges Inpatient E&M: 26502 Subs Hosp L2
[2022-04-01 16:40] LABS: Bedside Glucose 167 mg/dL (74-106)
[2022-04-01] MEDS: Insulin Lispro 100 UNIT/ML INSULN.PEN SC (17:12)
[2022-04-01] MEDS: Latanoprost 0.005% 1 Bottle 1 DRP EACH EYE (21:31)
[2022-04-01 21:46] LABS: Bedside Glucose 122 mg/dL (74-106)
[2022-04-01] MEDS: Magnesium Hydroxide 30 ML UDC PO (21:46)
[2022-04-02] VITALS (11 sets, daily range): BP systolic 147–218; BP diastolic 50–91; PULSE 50–69; RESP 16–18; TEMP 36.5–36.6; O2SAT 98
[2022-04-02] MEDS: traMADol 50 MG Tablet PO (02:47)
[2022-04-02] MEDS: Levothyroxine 125 MCG Tablet PO (05:40)
[2022-04-02] MEDS: hydrALAZINE 50 MG Tablet PO ×3 (05:40→22:10)
[2022-04-02] MEDS: Acetaminophen 500 MG Tablet 1000 MG PO ×3 (05:40→22:12)
[2022-04-02] MEDS: Menthol/Lanolin/Calamine/Znox 113 GM Tube 1 APPLIC TOPICAL ×2 (05:41→22:16)
[2022-04-02 06:02] LABS: Hematocrit 36.6 % (37-47); Hemoglobin 11.5 g/dL (12.0-15.0)
[2022-04-02 06:50] LABS: Bedside Glucose 132 mg/dL (74-106)
[2022-04-02] MEDS: NIFEdipine 60 MG Tablet PO (08:21)
[2022-04-02] MEDS: Senna/Docusate Sodium 1 Tablet 2 TABLET PO (08:21)
[2022-04-02] MEDS: Pantoprazole Sodium 40 MG Tablet PO (08:21)
[2022-04-02] MEDS: Cholecalciferol (Vit D3) 125 MCG CAPSULE (5,000 UNITS) PO (08:21)
[2022-04-02] MEDS: Colchicine 0.6 MG TABLET PO ×2 (08:22→22:10)
[2022-04-02] MEDS: Aspirin 81 MG TAB.CHEW PO ×2 (08:22→17:11)
[2022-04-02 08:37] LABS: Anion Gap 7 (5-15); BUN 30 mg/dL (7-18); BUN/Creat Ratio 23.1 RATIO (10-20); Calcium,Total 9.6 mg/dL (8.5-10.1); Chloride 104 mmol/L (98-107); EST Glomerular Filtration Rate 42 mL/min (>60); Est Glom Filt Rate - Afr Amer 51 mL/min (>60); Estimated Creatinine Clearance 42.27 ml/min; Glucose 120 mg/dL (74-106); Phosphorus 3.6 mg/dL (2.5-4.9); Potassium 4.2 mmol/L (3.5-5.1); Sodium Level 138 mmol/L (136-145)
[2022-04-02] MEDS: NIFEdipine 30 MG Tablet PO (09:52)
[2022-04-02] MEDS: Furosemide 20 MG Tablet PO (09:52)
[2022-04-02] MEDS: Doxycycline 100 MG CAPSULE PO ×2 (09:52→22:10)
--- NOTE | 2022-04-02 10:10 | CASEMGMT ---
Social Work IDT met with patient and for Team meeting. Discussed patient's progress in PT/OT/SN. ST order placed to evaluate cognition. The goal is for pt to return home with . Both are elderly and IDT wants to ensure pt/ are safe at home supporting each other. Explained Medicare benefit. Will update pt with approval of covered days. SW to continue to follow for DC planning. Will Reteam next week. Micheline Lemos MSW SHOW WORKER
[2022-04-02 11:11] LABS: Bedside Glucose 129 mg/dL (74-106)
--- NOTE | 2022-04-02 11:46 | NURSING ---
pt blood pressure elevated. Dr Hutchins made aware. Changes made to medications. Q4H while awake blood pressure checks
--- NOTE | 2022-04-02 14:13 | PN_ITS ---
Subjective Subjective Naty was seen on TEAM rounds today. Her Tab was present in the room for rounds. Afebrile BP remains uncontrolled. Blood pressure at at bedtime was 173/61. This a.m. the blood pressure was 168/53 at 5:40 AM and by 830 it was 198/69. Orthostatics are negative. Pulse rate is consistently in the mid to high 50s to low 60s. Maintaining appropriate oxygen saturation on RA Oral intake is improved Discussed with nursing - The only problem we are having is the BP. She is sleeping well, moving her bowels regularly, eating better and she has good pain control. Reviewed the PT/OT notes. ST will evaluate today. Medication list reviewed. She is currently taking Procardia XL 60 mg daily, Cozaar 100 mg daily and Hydralazine 50 mg TID. she lists multiple antihypertensives as allergies but does not even know the reactions? she sees a obgyn nurse, Dr. Guthrie at [facility] and she also sees a machine sprayer in [place], Dr. Benz, and 1 will DC a medication and then not communicate with the other doctor and this makes it very hard for Naty to know what to do. It does not help that she is not wearing her BIPAP and she has memory issues related to this. Naty has no complaints today. Pain is well controlled and she is progressing in therapy. She denies chest pain, calf pain, shortness of breath, palpitations, lightheadedness, nausea. She is eating well now. All lab from this AM was personally reviewed. Hemoglobin is 11.5 and stable. The BMP shows a sodium of 138 and a potassium of 4.2. Serum bicarb is normal. The BUN is up to 30 and a creatinine is 1.3, up from 1.11 on 03/29/2022. A.m. cortisol is within normal limits. Objective Data Objective Data Vital Signs: Vital Signs Temp Pulse Resp BP Pulse Ox O2 Del Method O2 Flow Rate 97.9 F 55 L 16 198/63 H 98 Room Air 2 04/02/22 10:00 04/02/22 13:10 04/02/22 10:00 04/02/22 13:10 04/02/22 10:00 04/02/22 10:00 04/01/22 23:56 Oxygen Flow Rate (L/min) 2 Oxygen Delivery Method Room Air Weight: 173 lb 15.115 oz Body Mass Index (BMI) 36.3 Intake & Output: Intake and Output for Last 24 Hours 03/31/22 04/01/22 04/02/22 23:59 23:59 23:59 Intake Total 300 / 300 360 / 360 240 / 240 Output Total 650 / 650 1225 / 1225 Balance -350 / -350 -865 / -865 240 / 240 Lab / Micro Data Result Diagrams: 04/02/22 05:51 04/02/22 05:51 Labs: Laboratory Results - last 24 hr 04/01/22 16:25: POC Glucose 167 H 04/01/22 21:30: POC Glucose 122 H 04/02/22 05:51: Hgb 11.5 L, Hct 36.6 L 04/02/22 05:51: Sodium 138, Potassium 4.2, Chloride 104, Carbon Dioxide 27.0, Anion Gap 7, BUN 30 H, Creatinine 1.30 H, Estim Creat Clear Calc 42.27, Est GFR (MDRD) Af Amer 51 L, Est GFR (MDRD) Non-Af 42 L, BUN/Creatinine Ratio 23.1 H, Glucose 120 H, Calcium 9.6, Phosphorus 3.6 04/02/22 05:51: Cortisol 12.80 04/02/22 06:20: POC Glucose 132 H 04/02/22 11:05: POC Glucose 129 H Micro: Microbiology 03/29/22 15:30 Urine Catheter - Catheter Urine Culture - Final Culture exhibits no growth. Physical Exam Const alert, oriented x3 and no apparent distress Constitutional Narrative: She is very pleasant and cooperative. She does everything that is asked of her. HEENT Mouth: dry mucous membranes Resp normal respiratory effort and clear to auscultation bilaterally Cardio no murmurs, no rub and no gallops Cardio Narrative: Regular rhythm with a HR of 60 currently. GI normal to inspection, nondistended, normoactive bowel sounds, soft to palpation and non-tender Extremity normal capillary refill and no calf tenderness Skin General Skin Exam: no breakdown Rashes: no rashes Psych cooperative Psych Narrative: not anxious and no sx of depression. Appearance: appropriate Assessment & Plan Assessment/Plan (1) Physical debility: PLAN: Continue therapy. (2) Failed total knee replacement: PLAN: Had persistent pain 3 years after the original procedure. (3) Status post revision of total knee replacement: PLAN: Dr. Rodrigez at [facility] February 2022. (4) HTN (hypertension): QUALIFIERS: Hypertension type: essential hypertension Qualified Code(s): I10 - Essential (primary) hypertension PLAN: This is uncontrolled. Will add HCTZ 12.5 mg daily. Will need to monitor the BP because she has a tendency not to drink enough fluids. Will increase the Procardia XL to 90 mg daily. Continue the Cozaar and also continue the Hydralazine. Consult nephrology to assist with treating HTN and also Naty would like a local machine sprayer to follow up with going forward rather than going to [place]. Will obtain Dr. Benz's records (nephrology at [facility]) (5) Bradycardia: PLAN: she has a PM and I suspect she is chronically in pacer rhythm. (6) Acute blood loss anemia: PLAN: Stable. (7) Hypophosphatemia: PLAN: Replacement ordered and will recheck later in the week. (8) Glaucoma: (9) Chronic renal failure, stage 3a: PLAN: Creat bumped since last checked, possibly related to elevated BP's. (10) Diabetes mellitus, type 2: PLAN: currently controlled with diet and she has not been requiring SSI. (11) LVH (left ventricular hypertrophy): PLAN: More likely than not secondary to uncontrolled hypertension. She has had HTN since she was in her 30's. (12) PAF (paroxysmal atrial fibrillation): PLAN: Not treated due to adverse reaction to Xarelto - she had pericardial effusion. (13) Status post placement of cardiac pacemaker: PLAN: I suspect she is pacer dependent at this point. Get an EKG today. (14) CLIFFORD (obstructive sleep apnea): PLAN: she is agreeable to having her bring in her BIPAP machine and wearing it tonight. Will humidify and apply Vaseline in the nostrils prior to applying the mask at night. (15) History of parathyroidectomy: PLAN: Calcium corrected for hypoalbuminemia is WNL. (16) History of thyroidectomy, total: PLAN: T4 is WNL PLAN: Plan She would like to establish with a PCP in [place] for convenience. She would do best with a IM doctor. Will have give her a list of local internists so she can pick one. She needs a captain of the ship to coordinate care between the subspecialists. Check the BP every 4 H while awake. Charges/Coding Visit Charges Inpatient E&M: 73672 Subs Hosp L2
--- NOTE | 2022-04-02 14:57 | EKG12_ITS ---
Test Reason : Blood Pressure : / mmHG Vent. Rate : 056 BPM Atrial Rate : 056 BPM P-R Int : 170 ms QRS Dur : 174 ms QT Int : 510 ms P-R-T Axes : 003 -62 116 degrees QTc Int : 492 ms Sinus bradycardia Left axis deviation Left bundle branch block Abnormal ECG When compared with ECG of 23-AUG-2020 06:46, Sinus rhythm has replaced Atrial fibrillation Vent. rate has decreased BY 42 BPM QRS axis Shifted left Confirmed by COLE GERBER, DIPESH ([id number]), editor trade journal YESICA FERNANDEZ ([id number]) on 04/09/2022 9:12:34 AM Referred By: MEGAN Confirmed By:DIPESH GALVAN MD
[2022-04-02 16:31] LABS: Bedside Glucose 137 mg/dL (74-106)
[2022-04-02] MEDS: Losartan Potassium 100 MG Tablet PO (22:10)
[2022-04-02] MEDS: Latanoprost 0.005% 1 Bottle 1 DRP EACH EYE (22:12)
[2022-04-02] MEDS: Insulin Lispro 100 UNIT/ML INSULN.PEN SC (22:24)
[2022-04-02 22:35] LABS: Bedside Glucose 152 mg/dL (74-106)
[2022-04-03] VITALS (8 sets, daily range): BP systolic 150–162; BP diastolic 53–72; PULSE 52–64; RESP 16; TEMP 36.2; O2SAT 97
--- NOTE | 2022-04-03 03:44 | NURSING ---
Reviewed and agree with NAILER HAND documentation and assessment charting.
[2022-04-03] MEDS: Acetaminophen 500 MG Tablet 1000 MG PO ×3 (05:33→21:42)
[2022-04-03] MEDS: hydrALAZINE 50 MG Tablet PO ×3 (05:33→21:45)
[2022-04-03] MEDS: Levothyroxine 125 MCG Tablet PO (05:34)
[2022-04-03] MEDS: Menthol/Lanolin/Calamine/Znox 113 GM Tube 1 APPLIC TOPICAL ×2 (05:34→21:42)
--- NOTE | 2022-04-03 06:26 | NURSING ---
pt compliant with bi-pap machine and wore it from 2229 to 514. pt reports that she didnt sleep well d/t mask slipping and back hurting, pt didnt call for staff assistance through out the night
[2022-04-03 07:06] LABS: Bedside Glucose 137 mg/dL (74-106)
[2022-04-03] MEDS: Aspirin 81 MG TAB.CHEW PO ×2 (08:25→16:40)
[2022-04-03] MEDS: Colchicine 0.6 MG TABLET PO ×2 (08:26→21:43)
[2022-04-03] MEDS: Doxycycline 100 MG CAPSULE PO ×2 (08:26→21:43)
[2022-04-03] MEDS: hydroCHLOROthiazide 6.25mg TAB 12.5 MG PO (08:26)
[2022-04-03] MEDS: Pantoprazole Sodium 40 MG Tablet PO (08:27)
[2022-04-03] MEDS: Cholecalciferol (Vit D3) 125 MCG CAPSULE (5,000 UNITS) PO (08:27)
[2022-04-03] MEDS: NIFEdipine 30 MG Tablet 90 MG PO (08:32)
[2022-04-03] MEDS: Ondansetron ODT 4 MG Tablet PO (09:04)
[2022-04-03 12:16] LABS: Bedside Glucose 173 mg/dL (74-106)
[2022-04-03] MEDS: Insulin Lispro 100 UNIT/ML INSULN.PEN SC (12:22)
--- NOTE | 2022-04-03 14:09 | CHAPLAIN ---
Type of Pastoral Visit _x__ Initial Visit ___ Follow-up Visit ___ On-call Visit ___ General Patient Visit ___ Spiritual Assessment ___ Family Conference ___ Bereavement ___ Rapid Response ___ Code Blue ___ Other (describe below) Pastoral Care Referral From _x__ Patient ___ Family ___ Nurse ___ Physician ___ Table Cover Folder ___ Ironing Machine Operator ___ Other (describe below) Sacrament/Intervention _x__ Active listening ___ Anointing ___ Moravian ___ Bereavement ___ Communion _x__ [place]uyet exploration ___ _x__ Life review _x__ Prayer ___ Reconciliation ___ Sacrament of Sick _x__ Supportive presence ___ Wedding ___ Other (describe below) Pastoral Comments patient is very talkative and welcoming of spiritual care support; pt gives lots of life review and information about her current/recent health issues; pt speaks of her marriage which is new in last three years; pt has a anabaptist connection and considers spiritual life very important; pt requests prayer and has several requests;
[2022-04-03 17:05] LABS: Bedside Glucose 138 mg/dL (74-106)
[2022-04-03] MEDS: Latanoprost 0.005% 1 Bottle 1 DRP EACH EYE (21:42)
[2022-04-03] MEDS: Senna/Docusate Sodium 1 Tablet 2 TABLET PO (21:43)
[2022-04-03] MEDS: Losartan Potassium 100 MG Tablet PO (21:44)
[2022-04-03 23:21] LABS: Bedside Glucose 133 mg/dL (74-106)
[2022-04-04] VITALS (9 sets, daily range): BP systolic 126–182; BP diastolic 22–66; PULSE 50–85; RESP 16–17; TEMP 36.6–36.7; O2SAT 50–99
--- NOTE | 2022-04-04 02:38 | NURSING ---
pt wore her bi-pap for 3 hours and 42 minutes this hs, 02 at 2l applied at this time
--- NOTE | 2022-04-04 02:50 | NURSING ---
Reviewed and agree with LOW PRESSURE KETTLE OPERATOR documentation and assessment charting.
[2022-04-04] MEDS: Levothyroxine 125 MCG Tablet PO (06:38)
[2022-04-04] MEDS: hydrALAZINE 50 MG Tablet PO ×3 (06:38→21:58)
[2022-04-04] MEDS: Acetaminophen 500 MG Tablet 1000 MG PO ×3 (06:38→21:56)
[2022-04-04] MEDS: Menthol/Lanolin/Calamine/Znox 113 GM Tube 1 APPLIC TOPICAL ×2 (06:40→21:59)
[2022-04-04 07:15] LABS: Bedside Glucose 116 mg/dL (74-106)
--- NOTE | 2022-04-04 07:22 | NURSING ---
Pt wore O2 @ 2L from 0240 until 0600.
[2022-04-04] MEDS: Colchicine 0.6 MG TABLET PO ×2 (08:05→21:58)
[2022-04-04] MEDS: Cholecalciferol (Vit D3) 125 MCG CAPSULE (5,000 UNITS) PO (08:05)
[2022-04-04] MEDS: Doxycycline 100 MG CAPSULE PO ×2 (08:05→21:56)
[2022-04-04] MEDS: Pantoprazole Sodium 40 MG Tablet PO (08:06)
[2022-04-04] MEDS: Aspirin 81 MG TAB.CHEW PO ×2 (08:07→16:32)
[2022-04-04] MEDS: hydroCHLOROthiazide 6.25mg TAB 12.5 MG PO (08:07)
[2022-04-04] MEDS: NIFEdipine 30 MG Tablet 90 MG PO (08:09)
[2022-04-04 12:25] LABS: Bedside Glucose 118 mg/dL (74-106)
[2022-04-04 18:25] LABS: Bedside Glucose 112 mg/dL (74-106)
[2022-04-04] MEDS: Losartan Potassium 100 MG Tablet PO (21:56)
[2022-04-04] MEDS: Latanoprost 0.005% 1 Bottle 1 DRP EACH EYE (21:57)
[2022-04-04] MEDS: Insulin Lispro 100 UNIT/ML INSULN.PEN SC (22:00)
[2022-04-04 23:00] LABS: Bedside Glucose 150 mg/dL (74-106)
[2022-04-05] VITALS (8 sets, daily range): BP systolic 121–165; BP diastolic 52–62; PULSE 50–82; RESP 16; TEMP 36.6–36.7; O2SAT 96–98
[2022-04-05] MEDS: Acetaminophen 500 MG Tablet 1000 MG PO ×3 (05:28→22:57)
[2022-04-05] MEDS: Levothyroxine 125 MCG Tablet PO (05:28)
[2022-04-05] MEDS: hydrALAZINE 50 MG Tablet PO ×3 (05:28→22:57)
[2022-04-05] MEDS: Menthol/Lanolin/Calamine/Znox 113 GM Tube 1 APPLIC TOPICAL (05:30)
--- NOTE | 2022-04-05 05:33 | NURSING ---
Pt wore cpap from 2331 until 529. c/o not fitting well, feels loose. RT called to adjust fitting of mask for comfort.
[2022-04-05 06:21] LABS: Bedside Glucose 119 mg/dL (74-106)
[2022-04-05] MEDS: Cholecalciferol (Vit D3) 125 MCG CAPSULE (5,000 UNITS) PO (07:47)
[2022-04-05] MEDS: Pantoprazole Sodium 40 MG Tablet PO (07:47)
[2022-04-05] MEDS: Doxycycline 100 MG CAPSULE PO ×2 (07:47→22:58)
[2022-04-05] MEDS: Colchicine 0.6 MG TABLET PO ×2 (07:47→22:57)
[2022-04-05] MEDS: NIFEdipine 30 MG Tablet 90 MG PO (07:47)
[2022-04-05] MEDS: hydroCHLOROthiazide 6.25mg TAB 12.5 MG PO (07:47)
[2022-04-05] MEDS: Aspirin 81 MG TAB.CHEW PO ×2 (07:47→16:01)
--- NOTE | 2022-04-05 10:08 | CASEMGMT ---
Social Work Followed up with pt to discuss DC plans. Pt has f/u appt on 04/08, inquired about discharging prior to appt. Pt agreeable. IDT agreeable. Discussed HHC vs OP. Pt prefers outpatient therapy at [facility]. Referral made for PT. Pt requesting 3-in-1 commode. Referral made to [facility] [place] transport. Plan: DC home with 04/08, [facility] PT, 3-in-1 commode Micheline Lemos MSW NETWORK CONTROL SUPERVISOR
[2022-04-05 12:25] LABS: Bedside Glucose 119 mg/dL (74-106)
--- NOTE | 2022-04-05 14:40 | CASEMGMT ---
Social Work Completed advanced directives with pt. Pt named, son Tayo Mo, as HCPOA. Original provided to pt. Copies placed on chart. Micheline Lemos, CONTROL CLERK REPAIRS PRESIDING STEWARD
[2022-04-05 17:31] LABS: Bedside Glucose 102 mg/dL (74-106)
[2022-04-05] MEDS: traMADol 50 MG Tablet PO (20:19)
[2022-04-05] MEDS: Latanoprost 0.005% 1 Bottle 1 DRP EACH EYE (22:56)
[2022-04-05] MEDS: Losartan Potassium 100 MG Tablet PO (22:57)
[2022-04-05 23:31] LABS: Bedside Glucose 124 mg/dL (74-106)
[2022-04-05] MEDS: Ondansetron ODT 4 MG Tablet PO (23:38)
[2022-04-06] VITALS (9 sets, daily range): BP systolic 141–184; BP diastolic 52–80; PULSE 51–63; RESP 14–15; TEMP 35.9–36.6; O2SAT 97–99
--- NOTE | 2022-04-06 03:32 | NURSING ---
REVIEWED AND AGREE WITH ROASTMASTER'S FUNCTIONAL ASSESSMENT AND HANDOFF CHARTING.
[2022-04-06] MEDS: Acetaminophen 500 MG Tablet 1000 MG PO ×3 (07:04→22:13)
[2022-04-06] MEDS: Levothyroxine 125 MCG Tablet PO (07:05)
[2022-04-06] MEDS: hydrALAZINE 50 MG Tablet PO ×3 (07:07→22:10)
[2022-04-06 07:15] LABS: Bedside Glucose 131 mg/dL (74-106)
--- NOTE | 2022-04-06 07:19 | NURSING ---
Patient kept bipap on for 6 hours during the night.
[2022-04-06] MEDS: Pantoprazole Sodium 40 MG Tablet PO (08:43)
[2022-04-06] MEDS: Aspirin 81 MG TAB.CHEW PO ×2 (08:44→17:21)
[2022-04-06] MEDS: hydroCHLOROthiazide 12.5mg 12.5 MG PO (08:44)
[2022-04-06] MEDS: NIFEdipine 30 MG Tablet 90 MG PO (08:44)
[2022-04-06] MEDS: Cholecalciferol (Vit D3) 125 MCG CAPSULE (5,000 UNITS) PO (08:44)
[2022-04-06] MEDS: Doxycycline 100 MG CAPSULE PO (08:45)
[2022-04-06] MEDS: Colchicine 0.6 MG TABLET PO ×2 (08:46→22:10)
[2022-04-06 12:10] LABS: Bedside Glucose 135 mg/dL (74-106)
--- NOTE | 2022-04-06 14:59 | PCM.PN.BLA ---
Progress Note Afebrile VSS - BP is labile and has ranged from 121/52 to 174/67 Maintaining appropriate oxygen saturation on RA Oral intake is good Discussed with nursing - She is c/o soreness in her backside. Nursing tells me that she is always sitting in the recliner and is not doing any off loading. They have been applying Calmoseptine but, she is still complaining and a Mepilex has now being applied but, there is no breakdown. they are turning her on her side when she is in the bed now. There is only a spot of dry skin, no breakdown. Reviewed the PT/OT/ST notes Medication list reviewed. Naty denies chest pain, shortness of breath, palpitations, lightheadedness, nausea/vomiting/abdominal pain, calf pain, dysuria. Her only complaint today is the discomfort in her bottom. Physical Exam Const alert, oriented x3 and no apparent distress Constitutional Narrative: She is lying in bed on her side. General Appearance: cooperative and well kempt HEENT HEENT Narrative: MM are moist Eyes Eyes Narrative: No scleral icterus and no conjunctival injection. No DC from her eyes and no mattering of the eyelids. EOMI. Neck Neck Narrative: supple Chest Chest Narrative: Symmetrical chest rise. Resp Resp Narrative: No tachypnea, able to speak in complete sentences, clear to auscultation after a few deep breaths. Cardio Cardio Narrative: Regular rate and rhythm, no gallops. GI GI Narrative: The abdomen is obese but soft, nontender and nondistended. Bowel sounds are normal and there are no abdominal bruits that I can appreciate. Extremity Extremity Narrative: No peripheral edema, no calf pain. Skin Skin Narrative: There are no openings in the skin of the buttocks. There is one small area of dried skin without erythema. Psych Appearance: grossly normal, appropriate and well kempt Attitude: calm and engaged Activity / Motor Behavior: appropriate eye contact and disorganized; Negative for fidgetting or restless Speech: normal speech Mood & Affect: euthymic mood Thought Process: other Poor short term memory Attention / Concentration: other Easily distracted and memory deficits are obvious. Memory / Cognition: cognition impaired Assessment & Plan Assessment/Plan (1) Physical debility: PLAN: Continue PT/OT/ST. Plan discharge for Friday. (2) Failed total knee replacement: (3) Status post revision of total knee replacement: PLAN: By Dr. Rodrigez. Has a follow up appt scheduled. (4) HTN (hypertension): QUALIFIERS: Hypertension type: essential hypertension Qualified Code(s): I10 - Essential (primary) hypertension PLAN: Previously well controlled on 100 mg of Cozaar the end of December. Blood pressure has significantly increased and she is now on max dose of Procardia, hydralazine 50 mg p.o. 3 times daily, hydrochlorothiazide 12.5 mg daily and Cozaar 100 mg daily and BP's are still frequently above goal. She has a hx of Renal Artery stenosis and has had a stent placed many years ago. AM Cortisol is WNL. TSH and T4 are within normal limits. I suspect the stent may be occluded or she has renal artery stenosis in the other kidney. She will follow-up with Dr. Ros Madera post discharge. We will add Cardura 1 mg p.o. nightly and there will be no further adjustments in the antihypertensive regimen due to the proximitiy of her DC date. PLAN: Plan 1. BP is still not adequately controlled on Procardia XL 90 mg daily, hydralazine 50 mg 3 times daily, hydrochlorothiazide 12.5 mg daily and Cozaar [address] of [address]. Madera's last PN on 01/24/22 shows the BP to be well controlled on 100 mg of Cozaar daily only. Will add Cardura 1 mg at HS. I suspect renal artery stenosis has recurred. Dr. Madera will see her in the office just after DC. 2. Naty is electing to go home prior to the DC date and will be discharged on Friday. Visit Charges Inpatient E&M: 36285 Subs Hosp L2
[2022-04-06 17:40] LABS: Bedside Glucose 129 mg/dL (74-106)
[2022-04-06 21:25] LABS: Bedside Glucose 170 mg/dL (74-106)
[2022-04-06] MEDS: Losartan Potassium 100 MG Tablet PO (22:08)
[2022-04-06] MEDS: Doxazosin 1 MG Tablet PO (22:08)
[2022-04-06] MEDS: Menthol/Lanolin/Calamine/Znox 113 GM Tube 1 APPLIC TOPICAL (22:11)
[2022-04-06] MEDS: Insulin Lispro 100 UNIT/ML INSULN.PEN SC (22:12)
[2022-04-06] MEDS: Latanoprost 0.005% 1 Bottle 1 DRP EACH EYE (22:13)
[2022-04-07] VITALS (9 sets, daily range): BP systolic 130–160; BP diastolic 50–80; PULSE 55–77; RESP 16–17; TEMP 35.9–36.6; O2SAT 94–100
[2022-04-07] MEDS: Acetaminophen 500 MG Tablet 1000 MG PO ×3 (06:44→21:09)
[2022-04-07] MEDS: Levothyroxine 125 MCG Tablet PO (06:44)
[2022-04-07] MEDS: Menthol/Lanolin/Calamine/Znox 113 GM Tube 1 APPLIC TOPICAL ×2 (06:45→21:13)
[2022-04-07] MEDS: hydrALAZINE 50 MG Tablet PO ×3 (06:45→21:09)
[2022-04-07 06:56] LABS: Bedside Glucose 113 mg/dL (74-106)
--- NOTE | 2022-04-07 07:12 | NURSING ---
bipap applied at 2230 and removed sometime after 04:00.
[2022-04-07] MEDS: Aspirin 81 MG TAB.CHEW PO ×2 (07:52→17:39)
[2022-04-07] MEDS: NIFEdipine 30 MG Tablet 90 MG PO (07:52)
[2022-04-07] MEDS: hydroCHLOROthiazide 12.5mg 12.5 MG PO (07:52)
[2022-04-07] MEDS: Doxycycline 100 MG CAPSULE PO ×2 (07:52→21:09)
[2022-04-07] MEDS: traMADol 50 MG Tablet PO (07:52)
[2022-04-07] MEDS: Senna/Docusate Sodium 1 Tablet 2 TABLET PO (07:52)
[2022-04-07] MEDS: Colchicine 0.6 MG TABLET PO ×2 (07:53→21:09)
[2022-04-07] MEDS: Cholecalciferol (Vit D3) 125 MCG CAPSULE (5,000 UNITS) PO (07:55)
[2022-04-07] MEDS: Pantoprazole Sodium 40 MG Tablet PO (07:55)
--- NOTE | 2022-04-07 12:04 | DCINST_ITS ---
Discharge Instructions Diet Discharge Diet: - (Carbohydrate controlled, Low salt, low fat.) Activity Discharge Activity: May Not Drive, May Shower and Use Walker Weight Bearing Status: Full weight bearing Keep extremity elevated above heart level: Left Leg Dressing / Incision Call your doctor if your incision/area has: Sudden Increased Bleeding, Increased Pain/ Swelling, Increased Redness, Foul Smelling Discharge and Swelling at the incision site Call your doctor if you observe: Fever of 101 or Higher, Shortness of breath, Fainting spells, Swelling in the ankles, Chest pain, Increased palpitations (irregular heartbeat), Calf discomfort and Uncontrolled pain Suture Line Care: Avoid Pulling/Pushing and Avoid Pinching/Bending Change Dressing in: 1 day Cleanse incision/area with: Soap & Water Follow Up Care Please Follow Up With: Kevan Rodrigez MD When: as scheduled. Test Results: Test results from this visit will be discussed in further detail at your follow- up appointment, if applicable. Pending Tests Upon Discharge: none Discharge Plan Admission Admit Date/Time: 03/28/22 13:58 Primary Reason for Your Visit: Debility due to revision of failed L knee replacement. Attending Provider: Naty Hutchins Primary Care Provider: Blaise Winslow Consulting Providers: Ros Madera Instructions Patient Instructions: ED Sleep Apnea, Obstructive Additional Instructions / Restrictions: 1. You have been having some problems with short term memory. This may in part be due to untreated sleep apnea. Since you have not been wearing the BIPAP and you want to pursue a dental appliance I suggest you do this as soon as possible. Sleep apnea, in addition to problems with memory, also causes chronic fatigue, daytime sleepiness, restless legs, and over time it also increases the BP in the lungs which can lead to chronic leg swelling. It also can lead to falls because you are fatigued and not always thinking straight when you have untreated sleep apnea. 2. You lost some blood with surgery and this is normal. The blood count is still a little low but, it has actually increased since you have been in rehab. 3. Your BP has been very difficult to control. You were previously controlled with just Cozaar 100 mg in the end of December but, now you are on 5 different medications. We ruled out an hyperthyroidism and an overactive adrenal gland. Since you have had renal artery stenosis in the past and you had a stent in I believe 2007 I suspect you have recurrent narrowing of the renal arteries that is leading to the sudden increase in the BP since the end of December. I recommend you take your BP e few different times during the day and write the results down to take to Dr. Madera at your next appt. 4. You have chronic kidney disease. there are 5 stages of kidney disease.......5 being the worst. You are in stage 3 and stable but, it is very important to get the BP under good control to keep you from progressing to stage 4. Untreated sleep apnea also contributes to resistant High BP. 5. Your BS's have been very well controlled with no blood sugars > 180 and no low blood sugars......good job controlling your diet. 6. I am referring you to the [facility] which is a cardiology group in [place] ad their office is here in the hospital on the second floor of the old building. They will take good care of you. I am also referring you to a primary care doctor who practises here in [facility]. Her name is Dr. Holguin and she is very knowledgeable and has a great personality. 7. You worked really hard in therapy Naty and you have done so well that you are able to leave ahead of schedule. Remember to do the exercises given to you by the therapists at least once a day every day to keep mobile and to keep from stiffening up. Do not sit for longer than 1 hour without getting up to take a walk and loosen the joints up. 8. It has been a pleasure to meet you Naty. You are such a sweet lady. If there is anything I can do to help you or you have any questions please do not hesitate to call me. Office: [phone] Rehab floor: [phone] Discharge Orders/Prescriptions Prescriptions: New tramadol 50 mg Tablet 50 mg PO Q6H PRN PRN (Reason: pain, moderate) 7 Days Qty: 21 0RF pantoprazole 40 mg Tablet,Delayed Release (Dr/Ec) 40 mg PO DAILY 30 Days Qty: 30 0RF doxazosin 1 mg Tablet 1 mg PO QHS Qty: 30 0RF Rx Instructions: take this at bedtime hydrochlorothiazide 12.5 mg Capsule 12.5 mg PO DAILY Qty: 30 0RF hydralazine 50 mg Tablet 50 mg PO TID Qty: 90 0RF nifedipine 90 mg tablet extended release 90 mg PO DAILY Qty: 30 0RF Continued vitamin C31-mtxeo acid 500-400 mcg tablet 1 tab PO DAILY glimepiride 1 MG tablet 2 mg PO DAILY colchicine 0.6 MG tablet 0.6 mg PO BID latanoprost 0.005 % Drops 1 drp EACH EYE QHS levothyroxine 125 mcg Tablet 125 mcg PO DAILY losartan 100 mg Tablet 100 mg PO DAILY cholecalciferol (vitamin D3) [Vitamin D3] 125 mcg (5,000 unit) Tablet 125 mcg PO DAILY aspirin 81 MG tablet,chewable 81 mg PO BIDCM ondansetron 4 MG tablet 4 mg PO Q8H PRN PRN (Reason: Nausea) Qty: 10 0RF Changed acetaminophen 500 mg Tablet 1,000 mg PO Q8 PRN (Reason: pain) Qty: 1 0RF Discontinued tramadol 50 mg Tablet 50 - 100 mg PO Q6H PRN (Reason: Pain) Rx Instructions: 1 Tab pain 1-4 2 Tab pain 5-10 doxycycline monohydrate 100 mg Capsule 100 mg PO BID pantoprazole 20 MG tablet,delayed release (DR/EC) 40 mg PO DAILY No Action (DME) Oral Appliance See Rx Instructions .ROUTE .MEDSUPPLY Qty: 1 0RF Rx Instructions: As directed Referrals / Follow Up: Ros Madera DO [STAFF PHYSICIAN] - Carmelina Holguin MD [STAFF PHYSICIAN] - Brady Frye MD [STAFF PHYSICIAN] - Disposition Disposition (needs filled in before D/C Order can be placed): Home, Self Care
[2022-04-07 12:45] LABS: Bedside Glucose 124 mg/dL (74-106)
--- NOTE | 2022-04-07 13:21 | DS.PCM_ITS ---
Providers Date of Admission: 03/28/22 Date of Discharge: 04/08/22 Primary Care Physician: Dr. Carmelina Holguin Reason For Visit: TOTAL LEFT KNEE REPLACEMENT Diagnosis Discharge Diagnosis (1) Physical debility: Status: Acute Code(s): R53.81 - Other malaise Plan: Continue PT/OT/ST. Plan discharge for Friday. 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 Rodrigez the end of February 2022 at [facility]. (4) HTN (hypertension): Status: Chronic Code(s): I10 - Essential (primary) hypertension Qualifiers: Hypertension type: essential hypertension Qualified Code(s): I10 - Essential (primary) hypertension Plan: Previously well controlled on 100 mg of Cozaar the end of December. Blood pressure has significantly increased and she is now on max dose of Procardia XL, hydralazine 50 mg p.o. 3 times daily, hydrochlorothiazide 12.5 mg daily, Cozaar 100 mg daily and Cardura 1 mg at HS. She has a hx of Renal Artery stenosis and had a stent placed many years ago (2007). AM Cortisol is WNL. TSH and T4 are within normal limits. I suspect the stent may be occluded or she has renal artery stenosis in the other kidney. She will follow-up with Dr. Ros Madera post discharge. (5) Acute blood loss anemia: Status: Acute Code(s): D62 - Acute posthemorrhagic anemia Plan: Stable and has improved while in rehab. HGB is up to 10.5 on 04/02/22. (6) Hypophosphatemia: Status: Resolved Code(s): E83.39 - Other disorders of phosphorus metabolism Plan: Resolved with supplementation. (7) Chronic renal failure, stage 3a: Status: Chronic Code(s): N18.31 - Chronic kidney disease, stage 3a Plan: Follows with Dr. Madera. (8) Diabetes mellitus, type 2: Status: Chronic Code(s): E11.9 - Type 2 diabetes mellitus without complications Plan: Well controlled on Amaryl. (9) Osteoarthritis: Status: Chronic Code(s): M19.90 - Unspecified osteoarthritis, unspecified site (10) PAF (paroxysmal atrial fibrillation): Status: Chronic Code(s): I48.0 - Paroxysmal atrial fibrillation (11) Status post placement of cardiac pacemaker: Status: Chronic Code(s): Z95.0 - Presence of cardiac pacemaker Plan: Inserted for Sinus pauses. (12) Obesity: Status: Chronic Code(s): E66.9 - Obesity, unspecified Qualifiers: Obesity classification: unspecified obesity classification Obesity type: unspecified obesity type Serious obesity comorbidity presence: unspecified whether serious comorbidity present Qualified Code(s): E66.9 - Obesity, unspecified (13) CLIFFORD (obstructive sleep apnea): Status: Chronic Code(s): G47.33 - Obstructive sleep apnea (adult) (pediatric) Plan: Non-complaint with BIPAP. Has seen Dr. Andrae Dumont. At the last visit it was documented that the patient wants to pursue a dental implant to treat her CLIFFORD. She has chronic fatigue, memory difficulties and daytime somnolence. (14) History of parathyroidectomy: Status: Resolved Code(s): Z98.890 - Other specified postprocedural states (15) History of thyroidectomy, total: Status: Resolved Code(s): E89.0 - Postprocedural hypothyroidism Plan: Thyroidectomy was for malignancy. (16) Nonrheumatic aortic valve stenosis: Status: Chronic Code(s): I35.0 - Nonrheumatic aortic (valve) stenosis (17) Nonrheumatic mitral valve insufficiency: Status: Chronic Code(s): I34.0 - Nonrheumatic mitral (valve) insufficiency (18) Non-rheumatic tricuspid valve insufficiency: Status: Chronic Code(s): I36.1 - Nonrheumatic tricuspid (valve) insufficiency (19) HLD (hyperlipidemia): Status: Chronic Code(s): E78.5 - Hyperlipidemia, unspecified Qualifiers: Hyperlipidemia type: unspecified Qualified Code(s): E78.5 - Hyperlipidemia, unspecified Plan: Not on any medication due a reported allergy to statins - joint pain. (20) Carotid bruit: Status: Chronic Code(s): R09.89 - Other specified symptoms and signs involving the circulatory and respiratory systems Plan DC home home with OP physical therapy at [place]. She will also need ongoing ST post DC for memory difficulties. Follow up with Dr. Rodrigez on 04/08/22. Follow up with Dr. Frye to establish care. She prefers to follow up in [facility] with a track laminating machine tender rather than continuing to follow up at [facility] main campus. Follow up with Dr. Holguin for new PCP, she no longer wants to drive to [place]. Follow up with Dr. Ros Madera within the next 2 weeks. She has already seen Dr. Madera in the past but, HTN is much worse since December 2021. DME at NH - 3-in-1 commode. Medications at Discharge Home Medications glimepiride 1 mg tablet 2 mg PO DAILY blood sugar 02/14/18 colchicine 0.6 mg tablet 0.6 mg PO BID gout 07/25/19 Oral Appliance #1 ea 03/19/22 vitamin B12 500 mcg-folic acid 400 mcg tablet 1 tab PO DAILY supplement 03/19/22 aspirin 81 mg chewable tablet 81 mg PO BIDCM DVT Prophylaxis 03/28/22 cholecalciferol (vitamin D3) 125 mcg (5,000 unit) tablet (Vitamin D3) 125 mcg PO DAILY supplement 03/28/22 latanoprost 0.005 % eye drops 1 drp EACH EYE QHS Check with primary doctor 03/28/22 levothyroxine 125 mcg tablet 125 mcg PO DAILY Check with primary doctor 03/28/22 losartan 100 mg tablet 100 mg PO DAILY blood pressure 03/28/22 acetaminophen 500 mg tablet 1,000 mg PO Q8 PRN pain #1 TAB 04/07/22 doxazosin 1 mg tablet 1 mg PO QHS #30 tabs 04/07/22 hydralazine 50 mg tablet 50 mg PO TID #90 tabs 04/07/22 hydrochlorothiazide 12.5 mg capsule 12.5 mg PO DAILY #30 caps 04/07/22 nifedipine 90 mg tablet,extended release 90 mg PO DAILY #30 tabs 04/07/22 ondansetron 4 mg disintegrating tablet 4 mg PO Q8H PRN PRN Nausea #10 tabs 04/07/22 pantoprazole 40 mg tablet,delayed release 40 mg PO DAILY 30 days #30 tabs 04/07/22 tramadol 50 mg tablet 50 mg PO Q6H PRN PRN pain, moderate 7 days #21 tabs 04/07/22 Hospital Course Operations - (Revision of L TKA by Dr. Rodrigez the last week in February.) Procedures None Summary of Care Provided Minutes Spent on Discharge: 45 Hospital Course: LYNETTE WEBSTER, is a 82 YO F with PMH of HTN, HLD, DM II, CRF stage 3a, hx of renal artery stenosis (had a stent inserted in 2007), obesity, LVH, OA, sinus pauses leading to PM insertion, hyperthyroidism (S/P thyroidectomy for maligna ncy), hx of parathyroidectomy, CLIFFORD, non-compliance with BPAP, glaucoma, history of pericardial effusion (was on Prednisone for 13 months and also Colchicine and saw Dr. Long Guthrie at [facility]) and a L TKR in 2017 or 2018.? She continued to have pain in the left knee and saw Dr. Rodrigez who diagnosed her with a failed knee prosthesis and scheduled her for a revision. ? She was admitted to [facility] the last week in February for the revision. The Post-op course was complicated by Post-op delirium.? Post operatively she was seen by PT and OT and acute rehab was recommended.? She was transferred to the acute inpt unit at [facility] on 03/28/22 for 3 hours of therapy daily to restore function/independence at or near her level prior to the recent surgery. Lab at admission to rehab showed a low phosphorus of 2.1 and supplementation was ordered. Prior to discharge the recheck was normal at 3.6. She had an a.m. cortisol level that was normal. A recent TSH was normal and we checked a free T4 which was also within normal limits. Calcium was normal. Hemoglobin was low at 10.5 but prior to discharge the hemoglobin had increased to 11.5. Creat at admission was 1.11 and prior to DC it was 1.3 which is within her baseline. Lynette's BP's were very elevated at admission to rehab. I reviewed a progress note from Dr. Ros Madera on 01/24/2022 which showed's that her blood pressure was normal on only 100 mg of Cozaar daily. Her brought in all her medications and there was a bottle of hydralazine which she had not been taking. She was started on hydralazine 50 mg every 6 hours but the blood pressure remained high. She has multiple allergies to medications and a beta- ricarda is one of them. Procardia XL was added and the dosage was gradually increased to 90 mg daily. The BP improved but, was still above goal. She was started on HCTZ 12.5 mg daily and has tolerated this without any adverse side effects. Since the T4 and the AM cortisol were normal the cause of the resistant HTN could be recurrent renal artery stenosis. Pheochromocytoma is also a consideration. On 04/06/22 the BP was as high as 184/69. she was started on Cardura 1 mg at HS and the following morning the BP was 130/51 but, 4 hours later it was 160/62. No further adjustments were made due to proposed DC on 04/08/22. She is going to follow up with her shaping machine operator (DR. Ros Madera) within 2 weeks of discharge to recheck the BP and order additional work up for causes of secondary HTN. It was obvious after discharge that Lynette is having trouble with her memory and she admitted this to the speech therapist. This may in part be due to untreated sleep apnea but, ST recommends she have ongoing OP ST following DC from rehab. Prior to discharge from rehab Lynette ambulated 700 feet on concrete with a wheeled walker and 300 feet with a wheeled walker on carpet. She walked 175 feet up/down an incline managing rugs/thresholds and going in and out of doors as well. She was able to ascend/descend 21 steps with 2 handrails in a step to pattern @ SBA prior to DC. She requires only minimal assistance with upper body dressing, lower body dressing and bathing. She is standby assist for toileting and toilet transfer. She is contact-guard assist with tub/shower t ransfer and requires minimal assistance with bathing. Lynette has an appt with Dr. Rodrigez on 04/08/22 and so she elected to be discharged on 04/08 so she could attend that appt. Prior to DC her came in for training. He agreed to allow Lynette to set up her pill boxes but, he will double check her work when she is finished. ST post DC was recommended for additional work with memory strategies. Lynette requested she be given options for follow up in [place] with Cardiology, PCP and nephrology. She has already seen Dr. Madera in December of 2021 and so she will continue to follow up with Dr. Madera. She is going to see Dr. Holguin for primary care and she will follow up with Dr. Frye/NESTOR for cardiology care. She no longer wants to travel to the [facility] main campus to see Dr. Long Guthrie because the drive and the getting around the [facility] is overwhelming to her. She had 13 months of Prednisone for pericarditis with effusion and this has since been discontinued but, she is still on Colchicine 0.6 mg BID which was started for pericarditis as well. I wonder if she still need Colchicine and if she does could the dose be decreased to 0.6 mg daily in light of CRF stage 3. Lynette denies any hx of Gout or nephrolithiasis. Weight / BMI Weight Weight: 173 lb 1.006 oz Body Mass Index (BMI) 36.3 ABG / Lab / Microbiology Data Result Diagrams: 04/02/22 05:51 04/02/22 05:51 Laboratory: Laboratory Results - last 24 hr 04/06/22 17:19: POC Glucose 129 H 04/06/22 20:54: POC Glucose 170 H 04/07/22 06:32: POC Glucose 113 H 04/07/22 12:23: POC Glucose 124 H Microbiology: Microbiology 03/29/22 15:30 Urine Catheter - Catheter Urine Culture - Final Culture exhibits no growth. D/C Instructions Discharge Diet: - (Carbohydrate controlled, Low salt, low fat.) Weight Bearing Status: Full weight bearing Keep extremity elevated above heart level: Left Leg Call your doctor if your incision/area has: Sudden Increased Bleeding, Increased Pain/ Swelling, Increased Redness, Foul Smelling Discharge and Swelling at the incision site Call your doctor if you observe: Fever of 101 or Higher, Shortness of breath, Fainting spells, Swelling in the ankles, Chest pain, Increased palpitations (irregular heartbeat), Calf discomfort and Uncontrolled pain Suture Line Care: Avoid Pulling/Pushing and Avoid Pinching/Bending Cleanse incision/area with: Soap & Water Pending Tests Upon Discharge: none Please Follow Up With: Kevan Rodrigez MD When: as scheduled. Meaningful Use Info Meaningful Use Diagnoses (Choose all that apply): None applicable Discharge Plan Admission Admit Date/Time: 03/28/22 13:58 Primary Reason for Your Visit: Debility due to revision of failed L knee replacement. Attending Provider: Lynette Hutchins Primary Care Provider: Blaise Winslow Instructions Patient Instructions: ED Sleep Apnea, Obstructive Additional Instructions / Restrictions: 1. You have been having some problems with short term memory. This may in part be due to untreated sleep apnea. Since you have not been wearing the BIPAP and you want to pursue a dental appliance I suggest you do this as soon as possible. Sleep apnea, in addition to problems with memory, also causes chronic fatigue, daytime sleepiness, restless legs, and over time it also increases the BP in the lungs which can lead to chronic leg swelling. It also can lead to falls because you are fatigued and not always thinking straight when you have untreated sleep apnea. 2. You lost some blood with surgery and this is normal. The blood count is still a little low but, it has actually increased since you have been in rehab. 3. Your BP has been very difficult to control. You were previously controlled with just Cozaar 100 mg in the end of December but, now you are on 5 different medications. We ruled out an hyperthyroidism and an overactive adrenal gland. Since you have had renal artery stenosis in the past and you had a stent in I believe 2007 I suspect you have recurrent narrowing of the renal arteries that is leading to the sudden increase in the BP since the end of December. I recommend you take your BP e few different times during the day and write the results down to take to Dr. Madera at your next appt. 4. You have chronic kidney disease. there are 5 stages of kidney dise ase.......5 being the worst. You are in stage 3 and stable but, it is very important to get the BP under good control to keep you from progressing to stage 4. Untreated sleep apnea also contributes to resistant High BP. 5. Your BS's have been very well controlled with no blood sugars > 180 and no low blood sugars......good job controlling your diet. 6. I am referring you to the [place] [facility] which is a cardiology group in [place] ad their office is here in the hospital on the second floor of the old building. They will take good care of you. I am also referring you to a primary care doctor who practises here in [facility]. Her name is Dr. Holguin and she is very knowledgeable and has a great personality. 7. You worked really hard in therapy Lynette and you have done so well that you are able to leave ahead of schedule. Remember to do the exercises given to you by the therapists at least once a day every day to keep mobile and to keep from stiffening up. Do not sit for longer than 1 hour without getting up to take a walk and loosen the joints up. 8. It has been a pleasure to meet you Lynette. You are such a sweet lady. If there is anything I can do to help you or you have any questions please do not hesitate to call me. Office: [phone] Rehab floor: [phone] Discharge Orders/Prescriptions Prescriptions: New tramadol 50 mg Tablet 50 mg PO Q6H PRN PRN (Reason: pain, moderate) 7 Days Qty: 21 0RF pantoprazole 40 mg Tablet,Delayed Release (Dr/Ec) 40 mg PO DAILY 30 Days Qty: 30 0RF doxazosin 1 mg Tablet 1 mg PO QHS Qty: 30 0RF Rx Instructions: take this at bedtime hydrochlorothiazide 12.5 mg Capsule 12.5 mg PO DAILY Qty: 30 0RF hydralazine 50 mg Tablet 50 mg PO TID Qty: 90 0RF nifedipine 90 mg tablet extended release 90 mg PO DAILY Qty: 30 0RF Continued vitamin P21-lhhrc acid 500-400 mcg tablet 1 tab PO DAILY glimepiride 1 MG tablet 2 mg PO DAILY colchicine 0.6 MG tablet 0.6 mg PO BID latanoprost 0.005 % Drops 1 drp EACH EYE QHS levothyroxine 125 mcg Tablet 125 mcg PO DAILY losartan 100 mg Tablet 100 mg PO DAILY cholecalciferol (vitamin D3) [Vitamin D3] 125 mcg (5,000 unit) Tablet 125 mcg PO DAILY aspirin 81 MG tablet,chewable 81 mg PO BIDCM ondansetron 4 MG tablet 4 mg PO Q8H PRN PRN (Reason: Nausea) Qty: 10 0RF Changed acetaminophen 500 mg Tablet 1,000 mg PO Q8 PRN (Reason: pain) Qty: 1 0RF Discontinued tramadol 50 mg Tablet 50 - 100 mg PO Q6H PRN (Reason: Pain) Rx Instructions: 1 Tab pain 1-4 2 Tab pain 5-10 doxycycline monohydrate 100 mg Capsule 100 mg PO BID pantoprazole 20 MG tablet,delayed release (DR/EC) 40 mg PO DAILY No Action (DME) Oral Appliance See Rx Instructions .ROUTE .MEDSUPPLY Qty: 1 0RF Rx Instructions: As directed Referrals / Follow Up: Ros Madera DO [STAFF PHYSICIAN] - Carmelina Holguin MD [STAFF PHYSICIAN] - Brady Frye MD [STAFF PHYSICIAN] - Disposition Disposition (needs filled in before D/C Order can be placed): Home, Self Care Charges/Coding Visit Charges Inpatient E&M: 57059 Disch Hosp
[2022-04-07 16:30] LABS: Bedside Glucose 156 mg/dL (74-106)
[2022-04-07] MEDS: Insulin Lispro 100 UNIT/ML INSULN.PEN SC ×2 (17:39→21:16)
[2022-04-07] MEDS: Losartan Potassium 100 MG Tablet PO (21:09)
[2022-04-07] MEDS: Latanoprost 0.005% 1 Bottle 1 DRP EACH EYE (21:11)
[2022-04-07] MEDS: Doxazosin 1 MG Tablet PO (21:13)
[2022-04-07 21:51] LABS: Bedside Glucose 167 mg/dL (74-106)
[2022-04-08 05:53] VITALS: BP 150/54; PULSE 64
[2022-04-08] MEDS: hydrALAZINE 50 MG Tablet PO (05:53)
[2022-04-08] MEDS: Acetaminophen 500 MG Tablet 1000 MG PO (05:53)
[2022-04-08] MEDS: Menthol/Lanolin/Calamine/Znox 113 GM Tube 1 APPLIC TOPICAL (05:55)
[2022-04-08] MEDS: Levothyroxine 125 MCG Tablet PO (05:55)
[2022-04-08 06:00] VITALS: BP 150/54; PULSE 64; RESP 18; TEMP 36.2; O2SAT 99
[2022-04-08 06:50] LABS: Bedside Glucose 125 mg/dL (74-106)
[2022-04-08] MEDS: NIFEdipine 30 MG Tablet 90 MG PO (08:46)
[2022-04-08] MEDS: Cholecalciferol (Vit D3) 125 MCG CAPSULE (5,000 UNITS) PO (08:46)
[2022-04-08 08:47] VITALS: BP 150/54; PULSE 64; RESP 18; TEMP 36.2; O2SAT 99
[2022-04-08] MEDS: hydroCHLOROthiazide 12.5mg 12.5 MG PO (08:47)
[2022-04-08] MEDS: Aspirin 81 MG TAB.CHEW PO (08:47)
[2022-04-08] MEDS: Colchicine 0.6 MG TABLET PO (08:47)
[2022-04-08] MEDS: Doxycycline 100 MG CAPSULE PO (08:47)
[2022-04-08] MEDS: Pantoprazole Sodium 40 MG Tablet PO (08:47)
[2022-04-08] MEDS: traMADol 50 MG Tablet PO (08:52)
[2022-04-08] MEDS: Baclofen 10 MG Tablet PO (09:21)
--- NOTE | 2022-04-08 09:23 | CASEMGMT ---
Social Work Received communication from Dr. Hutchins requesting order for ST. Spoke with pt advising Shanika Khalil does not have ST. Offered two separate facilities or all at [facility]. Pt requesting [facility] PT and [facility] ST. Referral made to [facility]. Micheline Lemos, DOOR TO DOOR SALES REPRESENTATIVE DEMAND PLANNING ANALYST
[2022-04-08 09:54] VITALS: BP 150/54; PULSE 64; RESP 18; TEMP 36.2; O2SAT 99
--- NOTE | 2022-04-08 09:58 | NURSING ---
discharged home with . discharge instructions, medication and appointments reviewed with pt and spouse. denies questions or concerns
== END 2022-04-08 09:45 | disposition home or self-care (01) | DRG 560 ==
PROVIDERS: Admitting Provider Internal Medicine; PCP Internal Medicine; Visit Provider Internal Medicine
DX: Z47.1 Aftercare following joint replacement surgery (principal); D62 Acute posthemorrhagic anemia; E11.22 Type 2 diabetes mellitus with diabetic chronic kidney disease; I48.0 Paroxysmal atrial fibrillation; I70.1 Atherosclerosis of renal artery; N18.31 Chronic kidney disease, stage 3a; E11.39 Type 2 diabetes mellitus with other diabetic ophthalmic complication; E83.39 Other disorders of phosphorus metabolism; E78.5 Hyperlipidemia, unspecified; M19.90 Unspecified osteoarthritis, unspecified site; G47.33 Obstructive sleep apnea (adult) (pediatric); E05.90 Thyrotoxicosis, unspecified without thyrotoxic crisis or storm; E89.0 Postprocedural hypothyroidism; I12.9 Hypertensive chronic kidney disease with stage 1 through stage 4 chronic kidney disease, or unspecified chronic kidney disease; M10.9 Gout, unspecified; Z95.0 Presence of cardiac pacemaker; E66.9 Obesity, unspecified; Z79.84 Long term (current) use of oral hypoglycemic drugs; D35.00 Benign neoplasm of unspecified adrenal gland; Z68.36 Body mass index [BMI] 36.0-36.9, adult; Z79.899 Other long term (current) drug therapy; Z79.82 Long term (current) use of aspirin; Z79.890 Hormone replacement therapy; Z96.652 Presence of left artificial knee joint
CPT/HCPCS: 36415; 80048; 81001; 82533; 82962; 83735; 84100; 84439; 85014; 85018; 85025; 87086; 92507; 92523; 93005; 97110; 97116; 97162; 97165; 97530; 97535; 97802

== ENCOUNTER → 2022-05-20 | Outpatient (CLI) | payer MEDICARE, BC, SELFPAY ==
[2022-05-20 10:45] LABS: Albumin, Serum 3.6 g/dL (3.2-5.0); BUN 39 mg/dL (7-18); BUN/Creat Ratio 28.7 RATIO (10-20); Calcium,Total 10.6 mg/dL (8.5-10.1); Chloride 108 mmol/L (98-107); Creatinine, Serum 1.36 mg/dL (0.55-1.02); EST Glomerular Filtration Rate 40 mL/min (>60); Est Glom Filt Rate - Afr Amer 48 mL/min (>60); Glucose 122 mg/dL (74-106); Phosphorus 2.8 mg/dL (2.5-4.9); Potassium 3.7 mmol/L (3.5-5.1); Sodium Level 139 mmol/L (136-145)
== END | disposition home or self-care (01) ==
LOC: LAB 08:59
PROVIDERS: PCP Internal Medicine; Referring Provider Internal Medicine Nephrology; Visit Provider Internal Medicine Nephrology
DX: N18.32 Chronic kidney disease, stage 3b (principal)
CPT/HCPCS: 36415; 80069

== ENCOUNTER → 2022-06-17 | Outpatient (CLI) | payer MEDICARE, BC, SELFPAY | END | disposition home or self-care (01) | LOC: CVS 13:06 | PROVIDERS: PCP Internal Medicine; Referring Provider Internal Medicine; Visit Provider Internal Medicine | DX: I12.9 Hypertensive chronic kidney disease with stage 1 through stage 4 chronic kidney disease, or unspecified chronic kidney disease (principal); N18.30 Chronic kidney disease, stage 3 unspecified; I35.0 Nonrheumatic aortic (valve) stenosis | CPT/HCPCS: 93788 ==

== ENCOUNTER → 2022-07-15 | Outpatient (CLI) | payer MEDICARE, BC, SELFPAY ==
[2022-07-15 15:11] LABS: Absolute Lymphocyte Count 1.27 X10^3/uL (0.83-4.51); Absolute Neutrophil Count 3.8 X10^3/uL (2.0-7.7); Basophil# 0.01 X10^3/uL; Basophil% 0.2 % (0-1); Eosinophil# 0.02 X10^3/uL; Eosinophils% 0.4 % (0-5); Hematocrit 34.2 % (37-47); Hemoglobin 11.1 g/dL (12.0-15.0); Lymphocyte # 1.27 X10^3/ul (0.83-4.51); Lymphocyte % 23.6 % (19-41); Mean Corp Hgb Conc 32.5 g/dL (32-36); Mean Corpuscular Hgb 31.8 pg (27.0-32.0); Mean Platelet Vol. 9.6 fl (6.2-12.0); Monocyte% 5.6 % (0-10); NRBC Flagged by Analyzer 0 % (0-5); Neutrophil # 3.76 X10^3/uL (2.7-7.7); Platelet Count 266 K/mm3 (150-450); RBC Distribution Width CV 13.4 % (11.6-14.6); RBC Distribution Width SD 48.2 fl (35.1-43.9); Red Blood Count 3.49 M/mm3 (4.2-5.4); White Blood Count 5.4 K/mm3 (4.4-11.0)
[2022-07-15 15:21] LABS: Protein:Creat Ratio 1147 mg/g CRE (0-200)
[2022-07-15 15:30] LABS: Albumin, Serum 3.6 g/dL (3.2-5.0); BUN 30 mg/dL (7-18); Calcium,Total 10.1 mg/dL (8.5-10.1); Chloride 109 mmol/L (98-107); EST Glomerular Filtration Rate 35 mL/min (>60); Est Glom Filt Rate - Afr Amer 43 mL/min (>60); Glucose 162 mg/dL (74-106); Phosphorus 2.7 mg/dL (2.5-4.9); Sodium Level 141 mmol/L (136-145)
[2022-07-15 15:53] LABS: Hemoglobin A1c 5.8 % (3.8-5.6)
[2022-07-15 15:58] LABS: Microalbumin:Creatinine Ratio 886.1 mg/g CRE (<30 mg/g CRE)
[2022-07-15 19:28] LABS: Cholesterol 210 mg/dL (200); High Density Lipoprotein 70 mg/dL; Thyroid Stim Hormone (TSH) 1.82 uIU/mL (0.358-3.74); Triglycerides 138 mg/dL; Very Low Density Lipoprotein 28 mg/dL (5-40)
== END | disposition home or self-care (01) ==
LOC: BIMLAB 14:07
PROVIDERS: PCP Internal Medicine; Visit Provider Internal Medicine Nephrology
DX: E11.22 Type 2 diabetes mellitus with diabetic chronic kidney disease (principal); N18.32 Chronic kidney disease, stage 3b
CPT/HCPCS: 36415; 80061; 80069; 82043; 82570; 83036; 84156; 84443; 85025

== ENCOUNTER → 2022-07-26 | Outpatient (CLI) | payer MEDICARE, BC, SELFPAY ==
--- NOTE | 2022-07-26 07:40 | RDU_ITS ---
Reason For Study: Atherosclerosis Right Renal Artery Left Renal Artery Right renal artery ostium 72.2/10.1 Left renal artery ostium 117.1/23.8 RSV/EDV. PSV/EDV. Right renal artery proximal Left renal artery proximal PSV/EDV 89.2/14.2 PSV/EDV. 130.1/21.2 . Right renal artery mid 100.2/13 Left renal artery mid 119.7/23.8 PSV/EDV. PSV/EDV . Right renal artery distal 87.5/12.7 Left renal artery distal 119.7/23.8 PSV/EDV. PSV/EDV. Right Renal Parenchyma Left Renal Parenchyma Upper Pole Medula 34.5/8.5 PSV/EDV. Left upper pole medulla 34.5/5.6 Right upper pole medulla EDR 0.2 . PSV/EDV . Right upper pole medulla R.I. 0.75 . Left upper pole medulla EDR 0.2 . Upper Manohar Cortx 18.9/4.7 PSV/EDV. Left upper pole medulla R.I. 0.84 . Right upper pole cortex EDR 0.2 . UP Cortex 19.8/5 PSV/EDV. Right upper pole cortex R.I. 0.75 . Left upper pole cortex EDR 0.3 . Right lower Pole medulla 31.1/5.8 Left upper pole cortex R.I. 0.75 . PSV/EDV . Left lower Pole medulla 27.8/5.6 Right lower pole medulla EDR 0.2 . PSV/EDV . Right lower pole medulla R.I. 0.81 . Left lower pole medulla EDR 0.2 . Lower Pole Cortex 14.1/3.1 PSV/EDV. Left lower pole medulla R.I. 0.86 . Right lower pole cortex EDR 0.2 . Lower Pole Cortx 17.9/5 PSV/EDV. Right lower pole cortex R.I. 0.78 . Left lower pole cortex EDR 0.3 . Right Renal Hilar Left lower pole cortex R.I. 0.72 . Right Hilar avg 58.8/6.9 PSV/EDV. Left Renal Hilar Right hilar acceleration time 70 LT Hilar avg 81.7/15.8 PSV/EDV . m/sec. Left hilar acceleration time 40 Right Renal Dimensions m/sec. Right kidney size 9.23 cm . Left Renal Dimensions Right cortical dimension 1.46 cm . Left kidney size 8.95 cm . Nonvascularized structure noted on Left cortical dimension 1.24 cm . the upper pole measuring 2.65 x 2.30 cm. Aorta Proximal abdominal aorta 1.14 x 1.16 cm . Proximal abdominal aorta peak systolic velocity is 154.5 cm/sec . Distal abdominal aorta 1.03 x 1.03 cm . Distal abdominal aorta peak systolic velocity is 180.4 cm/sec . VL/Renal Artery Duplex Ultrasound Interpretation Summary Maximal aortic diameter proximally at 1.14 x 1.16 cm in diameter which is marylu l. Velocity flow within the abdominal aorta is elevated which invalidates renal artery. Aortic r atios Less than 60% stenosis right renal artery Right renal length 9.23 cm which is normal. Apparent upper pole right renal cyst 2.65 x 2.3 cm Less than 60% stenosis left renal artery Slightly diminished left renal length at 8.95 cm Renal resistive indices are slightly elevated bilaterally suggesting intrinsic parenchymal disease. Clinical correlation would be appropriate. Ordering Physician: Ros Madera Referring Physician: Chiara Triana Performed By: Anaya Aguirre RVT
--- NOTE | 2022-07-26 13:36 | VDLE_ITS ---
Reason For Study: LEG PAIN RIGHT LEFT CFV is compressible, spontaneous, competent GSV is normal. and demonstrates pulsatile venous flow. CFV is compressible, spontaneous, phasic, Procedure competent, and demonstrates normal This is a venous duplex using B-mode, color augmentation. flow and spectral Doppler. FV is compressible, spontaneous, phasic, Exam performed in department. competent and demonstrates normal The exam was diagnostic. augmentation. A preliminary report was called and/or faxed POP V is compressible, spontaneous, phasic, to Dr. Rodrigez's office. competent and demonstrates normal augmentation. T/P Trunk is compressible. PTV is compressible. LT PerV is compressible. VL/Venous Duplex US, Unilateral Interpretation Summary There is no evidence of left lower extremity deep vein thrombosis. Left great s aphenous vein appears patent and compressible segmentally. Pulsatile venous flow noted in the right c ommon femoral artery suggestive of proximal venous hypertension or obstruction. Clinical correlation would be appropriate. Ordering Physician: Kevan Rodrigez Referring Physician: Ros Madera M.D. Performed By: Barry Cheng RVT
== END | disposition home or self-care (01) ==
LOC: CVS 07:39
PROVIDERS: PCP Internal Medicine; Referring Provider Internal Medicine Nephrology; Visit Provider Internal Medicine Nephrology
DX: I70.1 Atherosclerosis of renal artery (principal); M79.662 Pain in left lower leg
CPT/HCPCS: 93971; 93975

== ENCOUNTER → 2022-09-05 | Outpatient (CLI) | payer MEDICARE, BC, SELFPAY ==
[2022-09-05 17:55] LABS: Protein, Urine (Random) 41.7 mg/dL (<11.9); Protein:Creat Ratio 889 mg/g CRE (0-200)
[2022-09-05 17:56] LABS: Albumin, Serum 3.5 g/dL (3.2-5.0); BUN 53 mg/dL (7-18); BUN/Creat Ratio 34.6 RATIO (10-20); Chloride 110 mmol/L (98-107); Creatinine, Serum 1.53 mg/dL (0.55-1.02); EST Glomerular Filtration Rate 35 mL/min (>60); Est Glom Filt Rate - Afr Amer 42 mL/min (>60); Glucose 82 mg/dL (74-106); Phosphorus 2.7 mg/dL (2.5-4.9); Potassium 3.9 mmol/L (3.5-5.1); Sodium Level 141 mmol/L (136-145)
== END | disposition home or self-care (01) ==
PROVIDERS: PCP Internal Medicine; Visit Provider Internal Medicine Nephrology
DX: E11.22 Type 2 diabetes mellitus with diabetic chronic kidney disease (principal); N18.32 Chronic kidney disease, stage 3b
CPT/HCPCS: 36415; 80069; 82570; 84156

== ENCOUNTER → 2022-10-28 | Outpatient (CLI) | payer MEDICARE, BC, SELFPAY ==
[2022-10-28 13:33] LABS: Bacteria 0 SEEN /hpf (None Seen); Mucous, Urine 0 SEEN /hpf (<or=2+); Red Blood Cells-Urine 0 SEEN /hpf (0-5); Squamous Epithelial Cells - UA 0 SEEN /hpf (5-10)
[2022-10-28 15:53] LABS: Color, Urine Yellow (Yellow); Glucose, Dipstick Normal (Normal); Ketone-Dipstick Negative (Negative); Leukocyte Esterase-Dipstick 500 /ul (Negative); Nitrite-Dipstick Negative (Negative); Occult Blood-Urine 250 /ul (Negative); Protein-Dipstick 100 mg/dl (Negative); Urine Bilirubin Dipstick Negative (Negative); Urine Clarity Cloudy (Clear); Urine Urobilinogen Normal (Normal)
[2022-10-28 16:14] LABS: White Blood Cells >100 SEEN /hpf (0-5)
[2022-10-28 16:20] LABS: Anion Gap 12 (5-15); BUN 48 mg/dL (7-18); BUN/Creat Ratio 26.4 RATIO (10-20); Calcium,Total 10.1 mg/dL (8.5-10.1); Chloride 106 mmol/L (98-107); Creatinine, Serum 1.82 mg/dL (0.55-1.02); EST Glomerular Filtration Rate 28 mL/min (>60); Est Glom Filt Rate - Afr Amer 34 mL/min (>60); Glucose 200 mg/dL (74-106); Potassium 4.2 mmol/L (3.5-5.1); Sodium Level 138 mmol/L (136-145)
== END | disposition home or self-care (01) ==
LOC: BIMLAB 13:32
PROVIDERS: Physician Assistant; PCP Internal Medicine; Visit Provider Internal Medicine
DX: R30.0 Dysuria (principal); E11.22 Type 2 diabetes mellitus with diabetic chronic kidney disease; I12.9 Hypertensive chronic kidney disease with stage 1 through stage 4 chronic kidney disease, or unspecified chronic kidney disease; N18.9 Chronic kidney disease, unspecified
CPT/HCPCS: 36415; 80048; 81001; 87086; 87088

== ENCOUNTER 2022-12-01 16:47 | Inpatient (IN) | payer MEDICARE, BC, SELFPAY ==
[2022-12-01] VITALS (9 sets, daily range): BP systolic 156–203; BP diastolic 67–89; PULSE 47–64; RESP 12–20; TEMP 36.4–36.6; O2SAT 98–100; BMI 32.2; BMI 31.8
--- NOTE | 2022-12-01 17:06 | EKG12_ITS ---
Test Reason : REPEAT-BRADYCARDIA Blood Pressure : / mmHG Vent. Rate : 046 BPM Atrial Rate : 046 BPM P-R Int : 240 ms QRS Dur : 178 ms QT Int : 502 ms P-R-T Axes : 000 -64 127 degrees QTc Int : 439 ms Atrial-paced rhythm with prolonged AV conduction Left axis deviation Left bundle branch block Abnormal ECG Confirmed by AIDEN GERBER, MARITZA ([id number]), movie editor YESICA FERNANDEZ ([id number]) on 12/02/2022 2:43:08 PM Referred By: Confirmed By:MARITZA WOLFE MD
--- NOTE | 2022-12-01 17:07 | EDS_ITS ---
HPI History of Present Illness Chief Complaint: Chest Pain Detail of Chief Complaint: Midsternal chest pain at 3 PM today while seated. Informant: patient and spouse/S.O. Onset/Context/Timing Onset: Today and Hours Activity at onset: sudden Timing: Continuous Quality: Positive for Heaviness Location: Substernal Current Severity: Mild Maximum Severity: Mild Worsened By: Nothing Relieved By: Nothing Associated Symptoms: Negative for Nausea, Vomiting, Diaphoresis, Cough, Fever, Lightheadedness, Acid Reflux or Palpitations Narrative Narrative: 82-year-old female history of diabetes, chronic kidney disease, hypertension, LVH, pacemaker recently saw physicians [facility] at her blood pressure medications changed and adjusted. She never had DVT or PE before no recent travel, surgery, immobilization or hospitalization. States today she was sitting in her car waiting for her granddaughter to give her some eggs. She developed midsternal chest pain. No radiation to her neck, jaw, left arm or back. No nausea or diaphoresis really no significant shortness of breath. No hemoptysis. No new leg pain or swelling. No recent exertional dyspnea or exertional chest pain. She says she just feels exhausted. Prior Similar Symptoms: No Recent Illness/Hospitalization: No CVD Risk Factors: Positive for Hypertension, Diabetes and Hypercholesterolemia; Negative for Smoking PE Risk Factors: Negative for Recent Travel/Surgery, Recent Immobilization, Prior DVT or PE or OCP + Smoking + >/=35 TAD Risk Factors: Negative for Marfan's Syndrome [facility] Medical History Abnormal cardiac enzyme level Bradycardia Carotid bruit Chronic pericarditis with effusion Chronic renal failure, stage 3a Diabetes mellitus, type 2 Essential hypertension Glaucoma Gout Hemoptysis HLD (hyperlipidemia) Hypersomnolence Hyperthyroidism Left bundle branch block (LBBB) LVH (left ventricular hypertrophy) Musculoskeletal back pain [place] (obstructive sleep apnea) Osteoarthritis PAF (paroxysmal atrial fibrillation) Pericardial effusion (08/23/20) Physical debility Secondary pulmonary arterial hypertension Sick sinus syndrome Home Medications Oral Appliance #1 ea 03/19/22 [Rx Last Taken Unknown] cholecalciferol (vitamin D3) 125 mcg (5,000 unit) tablet (Vitamin D3) 125 mcg PO DAILY supplement 03/28/22 [History Last Taken Unknown] latanoprost 0.005 % eye drops 1 drp EACH EYE QHS Check with primary doctor 03/28/22 [History Last Taken Unknown] omega 3,6,9 combination no.7 92 mg (43 mg-22 [id number]) chew tablet ([place] DHA) mg PO 04/15/22 [History Last Taken Unknown] aspirin 81 mg tablet,delayed release (Adult Low Dose Aspirin) 81 mg PO DAILY 06/19/22 [History Last Taken Unknown] colchicine 0.6 mg tablet 0.6 mg PO .qod PERICARDITS 06/19/22 [History Last Taken Unknown] doxazosin 2 mg tablet 2 mg PO QHS #90 tabs 06/19/22 [Rx Last Taken Unknown] inulin 2 gram chewable tablet 2 g PO DAILY 06/19/22 [History Last Taken Unknown] losartan 100 mg tablet 100 mg PO DAILY blood pressure #90 tabs 06/19/22 [Rx Last Taken Unknown] nifedipine 90 mg tablet,extended release 90 mg PO DAILY #90 tabs 06/19/22 [Rx Last Taken Unknown] vitamin B12 500 mcg-folic acid 400 mcg tablet 1 tab PO DAILY PRN supplement 06/19/22 [History Last Taken Unknown] glimepiride 2 mg tablet 2 mg PO DAILY #90 tabs 08/09/22 [Rx Last Taken Unknown] hydrochlorothiazide 12.5 mg capsule 12.5 mg PO DAILY #90 caps 08/19/22 [Rx Last Taken Unknown] lovastatin 20 mg tablet 20 mg PO QHS #30 tabs 09/02/22 [Rx Last Taken Unknown] pantoprazole 40 mg tablet,delayed release 40 mg PO DAILY 30 days #90 tabs 09/13/22 [Rx Last Taken Unknown] sennosides 8.6 mg-docusate sodium 50 mg tablet (Senokot-S) 1 tab-cap PO .COMPLEX constipation #30 tabs 09/19/22 [Rx Last Taken Unknown] levothyroxine 125 mcg tablet 125 mcg PO DAILY Check with primary doctor #90 tabs 10/07/22 [Rx Last Taken Unknown] hydralazine 50 mg tablet 50 mg PO TID #270 tabs 10/22/22 [Rx Last Taken Unknown] cephalexin 500 mg capsule 500 mg PO BID #10 caps 10/28/22 [Rx Last Taken Unknown] finerenone 10 mg tablet (Kerendia) mg PO DAILY 10/28/22 [History Last Taken Unknown] Allergy/AdvReac Type Severity Reaction Status Date / Time benazepril [From Lotensin] Allergy Unknown Verified 12/01/22 16:48 Iodine and Iodide Containing Allergy Shortness Verified 12/01/22 16:48 Produc of breath meperidine [From Demerol] Allergy Unknown Verified 12/01/22 16:48 metformin [From Janumet] Allergy Pain in Verified 12/01/22 16:48 joints Penicillins Allergy Hives Verified 12/01/22 16:48 propoxyphene [From Darvon] Allergy Unknown Verified 12/01/22 16:48 shellfish derived Allergy Shortness Verified 12/01/22 16:48 of breath sitagliptin [From Janumet] Allergy Pain in Verified 12/01/22 16:48 joints spironolactone Allergy Unknown Verified 12/01/22 16:48 rivaroxaban [From Xarelto] AdvReac Severe PERICARDIAL Verified 12/01/22 16:48 EFFUSION hydrochlorothiazide AdvReac NEEDS Verified 12/01/22 16:48 FOLLOW-UP lisinopril AdvReac NEEDS Verified 12/01/22 16:48 FOLLOW-UP metoprolol AdvReac Shortness Verified 12/01/22 16:48 of breath simvastatin AdvReac Pain in Verified 12/01/22 16:48 joints Family History Mother Cancer Uterine Thyroid disorder Father Cancer lung Hypertension Surgical History Failed total knee replacement History of parathyroidectomy (2009) History of permanent cardiac pacemaker placement (06/2018) History of thyroidectomy, total (2009) History of tonsillectomy and adenoidectomy History of total hysterectomy 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/2022) Social History household members: spouse and other number of children: 2 current occupational status: retired current occupation: worked in the [employer] at [employer] Smoking Status: Never smoker alcohol intake: never substance use type: does not use caffeine: No do you feel safe at home: Yes ROS ROS ED ROS Narrative Denies recent illness. No recent exertional shortness of breath or chest pain. Review of Systems ROS Unobtainable: Denies due to encephalopathy Constitutional Constitutional ED: Denies chills or fever(s) Eyes Eyes: Reports none ENT ENT ED: Denies ear pain Cardiovascular Cardiovascular: Reports as per HPI and chest pain; Denies palpitations or racing heartbeat Respiratory/Chest Respiratory/Chest: Denies cough or dyspnea Gastrointestinal Gastrointestinal: Denies abdominal pain, nausea or vomiting Genitourinary Genitourinary ED: Denies dysuria or hematuria Musculoskeletal Musculoskeletal: Denies arthralgias Integumentary Denies abscess Neurologic Neurologic: Denies headache(s) Psychiatric Psychiatric: Denies anxiety Endocrine Endocrinology: Denies cold intolerance Hematologic/Lymphatic Hematologic/Lymphatic: Denies easy bleeding Allergic/Immunologic Allergic/Immunologic ED: Denies mouth swelling or tongue swelling EXAM Physical Exam Narrative Exam Narrative: Well-appearing 82-year-old female. Vital signs are stable afebrile. Her blood pressure is elevated 203/76. Pulse ox of 100% on room air no signs hypoxia. H EENT exam unremarkable. Neck nontender no JVD. Lungs clear to auscultation bilaterally. Heart regular rhythm rate about 65 no murmur. She does have reproducible chest wall pain over her sternum. There is no redness or bruising. No signs of trauma. I asked the patient she has had no recent trauma to her chest or had any injury or lifting. No crepitance or subcu air. Abdomen soft nontender. Moving all 4 extremities. Calves are nontender without edema or cords. Neurologically she is awake and alert. Const Vital Signs: 12/01/22 16:48 12/01/22 16:53 12/01/22 17:16 Temperature 97.7 F L Temperature Source Temporal Pulse Rate 64 54 L Respiratory Rate 18 Respiratory Effort Normal Blood Pressure 203/76 H 176/68 H Blood Pressure Mean 118 Pulse Ox 100 Oxygen Delivery Method Room Air 12/01/22 17:37 12/01/22 17:47 12/01/22 18:00 Temperature Temperature Source Pulse Rate 54 L 58 L 48 L Respiratory Rate 16 16 Respiratory Effort Blood Pressure 172/67 H 178/84 H 175/78 H Blood Pressure Mean 115 110 Pulse Ox 99 99 Oxygen Delivery Method Room Air Room Air 12/01/22 19:07 Temperature Temperature Source Pulse Rate 53 L Respiratory Rate 12 Respiratory Effort Blood Pressure 177/69 H Blood Pressure Mean 105 Pulse Ox 98 Oxygen Delivery Method Room Air Positive well nourished and well developed; Negative for cachectic, contractures or unkempt General Appearance ED: well developed and NAD; Negative for unkempt, cachectic, contractures or pallor Nutritional Appearance: Negative for cachectic HEENT Reports moist mucous membranes normocephalic and atraumatic; Negative for trauma or tenderness Eyes PERRL and EOMs intact bilaterally General Eye ED: Yes pale conjunctiva and scleral icterus Neck no lymphadenopathy, supple and no JVD General: Negative for tenderness Chest Wall inspection of chest normal; Negative for palpation of chest normal Chest Narrative: Tenderness in the mid sternum. No redness. No warmth. No signs of trauma or bruising. No crepitance. Reproducibly tender. Chest: tenderness Resp normal respiratory effort and clear to auscultation bilaterally Effort and Inspection: Negative for respiratory distress Auscultation: Negative for rales, rhonchi or wheezes Cardio regular rate, regular rhythm, S1 normal heart sound, S2 normal heart sound and no murmurs Peripheral Pulses: pulses 2+ throughout GI normal to inspection, nondistended, normoactive bowel sounds, soft to palpation, non-tender, non-distended and no masses Auscultation: Negative for hyperactive bowel sounds Palpation: Negative for splenomegaly or mass Back/Spine no CVA tenderness and no thoracic nor lumbar tenderness General Back: Negative for CVA tenderness Cervical Spine: Negative for cervical spine tenderness Extremity normal to inspection General Extremety ED: Negative for edema, pulses abnormal or tenderness General Extremity: Negative for edema or pulses abnormal Neuro oriented x3 and CN's II-XII intact bilaterally Sensorium / Orientation: awake, alert, oriented to person, oriented to place and oriented to time; Negative for confused, lethargic or stuporous Motor Exam: strength 5/5 throughout Psych mental status grossly normal Appearance: Negative for unkempt Attitude: No agitated Mood & Affect: Negative for depressed, anxious or tearful Skin no rashes or lesions noted and no wounds General Skin Exam: Negative for jaundice or pallor Rashes: No rashes noted Trauma: Negative for abrasion or laceration Heart Score History: Slightly/Non-Suspicious ECG: Normal Age: >/= 65 years Risk Factors: 1 or 2 Risk Factors Score: 3 MDM MDM MDM Narrative Medical decision making narrative: 82-year-old female with midsternal chest pain while seated. No cardiac history other than a pacemaker. She never had stents, bypass or cardiac disease. She has had prior pericardial effusion. She is never had a DVT or PE. No risk factors. She undergo cardiac work-up. Clinically I do not think it is a dissection but she does have elevated blood pressure. She has no back pain. No pain in her arm neck or jaw. We are going to try sublingual nitro and see if that changes her discomfort. The pain does seem to be reproducible but she has no history of any trauma or injury to her chest wall. Repeat exam patient doing well at 5:40 PM. Her initial nitroglycerin gave her no change in her chest pain. She will be treated with IV morphine and Zofran. Already spoke with hospitalist will admit her to the PCU. Morphine did give her relief of her chest pain. Repeat exam she is doing well at 8 PM. Smiling and talking with her prior to admission. History & Record Review Additional record(s) reviewed:: Prior inpatient record, Prior outpatient record, Prior labs and No prior records Lab Data Attestation: I reviewed the patient's lab results. Lab results narrative: CBC unremarkable. White count of 6. H&H 12 and 38. Platelets 261. Chemistries unremarkable gap of 7 BUN of 42 creatinine 1.48 she does have a history of chronic kidney disease stage III. Glucose 99. Her troponin is elevated at 114. 2-hour troponin is elevated at 406. Labs: Laboratory Results - last 24 hr 12/01/22 12/01/22 12/01/22 17:18 17:18 19:20 WBC 6.3 RBC 4.00 L Hgb 12.2 Hct 38.4 MCV 96.0 MCH 30.5 MCHC 31.8 L RDW Std Deviation 49.1 H RDW Coeff of Ignacia 13.8 Plt Count 261 MPV 9.7 Immature Gran % (Auto) 0.300 Neut % (Auto) 55.8 Lymph % (Auto) 34.1 [place] % (Auto) 8.8 Eos % (Auto) 0.8 Baso % (Auto) 0.2 Absolute Neuts (auto) 3.5 Absolute Lymphs (auto) 2.16 Nucleated RBC % 0 Sodium 136 Potassium 3.8 Chloride 104 Carbon Dioxide 25.0 Anion Gap 7 BUN 42 H Creatinine 1.48 H Estim Creat Clear Calc 23.58 Est GFR (MDRD) Af Amer 43 L Est GFR (MDRD) Non-Af 36 L BUN/Creatinine Ratio 28.4 H Glucose 99 Calcium 10.4 H Troponin I High Sens 114 H 406 H* Radiography Chest X-Ray - ED: 1 View, Read by ED Physician, Heart, Lungs, Mediastinum, Bony Structures, No Acute Disease and Chronic Changes Diagnostic Testing: Clinical Impression(s) from Imaging Studies Chest X-Ray 12/01/22 17:35 IMPRESSION: There are no acute findings. Electronically Signed: Octavio Berg MD at 18:09 EST , Chest x-ray, portable, single view no acute process. Labs pacemaker in place. Rhythm Strip Rhythm Strip: Paced Rate: 74 Ectopy: None EKG Initial EKG: Attestation: I personally reviewed and interpreted this EKG as follows: Interpretation: No Acute Injury Pattern and Paced Comments: Atrial paced rhythm rate of 74. Left bundle branch block. No acute signs of MT or ischemia. Prior EKG tracings: available for review Prior: Unchanged Follow-up EKG: Attestation: I personally reviewed and interpreted this EKG as follows: Interpretation: Paced Comments: Paced rhythm rate of 46. No acute ischemia nonischemic. Unchanged from the first other than a slower rate. Unchanged from prior from April 17 Prior EKG tracings: available for review Prior: Unchanged Discharge Plan Dx/Rx/DC Orders Clinical Impression: Chest pain, Elevated troponin, History of hypertension, History of chronic kidney disease Disposition Disposition: Acute Care [facility]
[2022-12-01] MEDS: Nitroglycerin SL (ED/IMG/CATH) 0.4 MG TABLET SL ×2 (17:16→17:37)
[2022-12-01] MEDS: Aspirin 81 MG TAB.CHEW 324 MG PO (17:16)
--- NOTE | 2022-12-01 17:21 | EKG12_ITS ---
Test Reason : CP Blood Pressure : / mmHG Vent. Rate : 074 BPM Atrial Rate : 074 BPM P-R Int : 262 ms QRS Dur : 168 ms QT Int : 436 ms P-R-T Axes : -11 -61 118 degrees QTc Int : 483 ms Atrial-paced rhythm with prolonged AV conduction Left axis deviation Left bundle branch block Abnormal ECG Confirmed by AIDEN GERBER, MARITZA ([id number]), supervising editor news reel YESICA FERNANDEZ ([id number]) on 12/02/2022 2:43:24 PM Referred By: FAYE/LAISHA Confirmed By:MARITZA WOLFE MD
[2022-12-01 17:25] LABS: Absolute Lymphocyte Count 2.16 X10^3/uL (0.83-4.51); Absolute Neutrophil Count 3.5 X10^3/uL (2.0-7.7); Basophil# 0.01 X10^3/uL; Basophil% 0.2 % (0-1); Eosinophil# 0.05 X10^3/uL; Eosinophils% 0.8 % (0-5); Hematocrit 38.4 % (37-47); Hemoglobin 12.2 g/dL (12.0-15.0); Lymphocyte # 2.16 X10^3/ul (0.83-4.51); Lymphocyte % 34.1 % (19-41); Mean Corp Hgb Conc 31.8 g/dL (32-36); Mean Corpuscular Hgb 30.5 pg (27.0-32.0); Mean Platelet Vol. 9.7 fl (6.2-12.0); Monocyte# 0.56 X10^3/uL; Monocyte% 8.8 % (0-10); NRBC Flagged by Analyzer 0 % (0-5); Neutrophil # 3.54 X10^3/uL (2.7-7.7); Neutrophil % 55.8 % (47-70); Platelet Count 261 K/mm3 (150-450); RBC Distribution Width CV 13.8 % (11.6-14.6); RBC Distribution Width SD 49.1 fl (35.1-43.9); White Blood Count 6.3 K/mm3 (4.4-11.0)
--- NOTE | 2022-12-01 17:35 | RAD_ITS ---
STUDY: XR Chest 1 View 12/01/2022 5:26 PM REASON FOR EXAM: Female, 82 years old. CHEST PAIN chest pain COMPARISON: 08/23/2020 TECHNIQUE: XR Chest 1 View FINDINGS: There is no demonstrated pleural abnormality. There is a left sided pacemaker batterypack. Enlarged heart size. Normal mediastinum. Normal cookie. Prominent appearing increased interstitial lung markings. Normal visualized pulmonary arteries. There is atherosclerotic calcification of the aortic arch with tortuosity. There are diffuse degenerative changes of the visualized thoracic spine. There is degenerative osteoarthritis of the bilateral shoulders. There is no demonstrated abnormality of the visualized soft tissue structures of the upper abdomen. RAD/Chest 1 View (Portable) IMPRESSION: There are no acute findings. Electronically Signed: Octavio Berg MD at 18:09 EST ,
[2022-12-01 17:44] LABS: Anion Gap 7 (5-15); BUN 42 mg/dL (7-18); BUN/Creat Ratio 28.4 RATIO (10-20); Calcium,Total 10.4 mg/dL (8.5-10.1); Chloride 104 mmol/L (98-107); Creatinine, Serum 1.48 mg/dL (0.55-1.02); EST Glomerular Filtration Rate 36 mL/min (>60); Est Glom Filt Rate - Afr Amer 43 mL/min (>60); Estimated Creatinine Clearance 23.58 ml/min; Glucose 99 mg/dL (74-106); Potassium 3.8 mmol/L (3.5-5.1); Sodium Level 136 mmol/L (136-145); Troponin-I HS (w/2H Reflex) 114 pg/mL (3.0-54.0)
--- NOTE | 2022-12-01 19:16 | PCM.HP.STD ---
HPI - General General Date of Admission: 12/01/22 Date of Service: 12/01/22 Chief Complaint: Chest pain HPI Narrative LYNETTE WEBSTER, is a 82 F with a significant history of pacemaker implantation; diabetes mellitus; atrial fibrillation and previously on Xarelto but developed epistaxis and a pericardial effusion that required drainage who presented to the emergency department with substernal chest pain that started about 1-1/2 hours prior to presentation. Of note patient was sitting in the car waiting for some eggs from her daughter. She described the chest pain as a heavy weight sitting on the chest. The chest pain was substernal; it was nonradiating. The chest pain increased with taking a deep breath. She received nitroglycerin sublingual at the emergency department but did not help with her chest pain. She received morphine and Zofran at the emergency department for her chest pain. She denies any nausea or vomiting. Associated with her symptoms is mild shortness of breath and anxiety. She saw hypertension specialist on November 27, 2022 and adjustments was made to her blood pressure medications. However insurance did not pay for one of these blood pressure medication (amlodipine?Olmesartan) so she has not been able to pick and start her prescribed amlodipine?Olmesartan. She reports that since 6 to 8 weeks before presentation she has been sleeping lying on the right side and she has some intermittent chest pain in that position and the pain is relieved with lying on her back. [facility] Medical History Abnormal cardiac enzyme level Anxiety Atrial fibrillation Bradycardia Carotid bruit Chronic pericarditis with effusion Chronic renal failure, stage 3a Diabetes Diabetes mellitus, type 2 Essential hypertension Glaucoma Gout Hemoptysis HLD (hyperlipidemia) Hypersomnolence Hyperthyroidism Hypothyroidism Kidney disease Left bundle branch block (LBBB) LVH (left ventricular hypertrophy) Musculoskeletal back pain [place] (obstructive sleep apnea) Osteoarthritis PAF (paroxysmal atrial fibrillation) Pericardial effusion (08/23/20) Physical debility Secondary pulmonary arterial hypertension Sick sinus syndrome Sleep apnea Home Medications Oral Appliance #1 ea 03/19/22 [Rx Last Taken Unknown] latanoprost 0.005 % eye drops 1 drp EACH EYE QHS Check with primary doctor 03/28/22 [History Last Taken Unknown] aspirin 81 mg tablet,delayed release (Adult Low Dose Aspirin) 81 mg PO DAILY antiplatelet 06/19/22 [History Last Taken Unknown] colchicine 0.6 mg tablet 0.6 mg PO .qod PERICARDITS 06/19/22 [History Last Taken Unknown] levothyroxine 125 mcg tablet 125 mcg PO DAILY Check with primary doctor #90 tabs 10/07/22 [Rx Last Taken Unknown] amlodipine 10 mg-olmesartan 40 mg tablet 1 tab PO QHS blood pressure 12/01/22 [History Last Taken Unknown] cephalexin 500 mg capsule 500 mg PO BID UTI 12/01/22 [History Last Taken Unknown] chlorthalidone 25 mg tablet 12.5 mg PO DAILY blood pressure 12/01/22 [History Last Taken Unknown] doxazosin 2 mg tablet 2 mg PO QHS blood pressure 12/01/22 [History Last Taken Unknown] finerenone 10 mg tablet (Kerendia) 10 mg PO DAILY kidneys 12/01/22 [History Last Taken Unknown] glimepiride 2 mg tablet 1 mg PO DAILY blood sugar 12/01/22 [History Last Taken Unknown] inulin 2 gram chewable tablet (Fiber Gummies) 2 g PO BID soft stool 12/01/22 [History Last Taken Unknown] lovastatin 20 mg tablet 20 mg PO QHS cholesterol 12/01/22 [History Last Taken Unknown] nebivolol 10 mg tablet 10 mg PO QHS blood pressure 12/01/22 [History Last Taken Unknown] frses5-qzt-hqh-other fqojb0c-wdth oil 350 mg- 400 mg capsule 830 cap PO DAILY supplement 12/01/22 [History Last Taken Unknown] pantoprazole 40 mg tablet,delayed release 40 mg PO DAILY antiacid 12/01/22 [History Last Taken Unknown] Allergy/AdvReac Type Severity Reaction Status Date / Time benazepril [From Lotensin] Allergy Unknown Verified 12/01/22 16:48 Iodine and Iodide Containing Allergy Shortness Verified 12/01/22 16:48 Produc of breath meperidine [From Demerol] Allergy Unknown Verified 12/01/22 16:48 metformin [From Janumet] Allergy Pain in Verified 12/01/22 16:48 joints Penicillins Allergy Hives Verified 12/01/22 16:48 propoxyphene [From Darvon] Allergy Unknown Verified 12/01/22 16:48 shellfish derived Allergy Shortness Verified 12/01/22 16:48 of breath sitagliptin [From Janumet] Allergy Pain in Verified 12/01/22 16:48 joints spironolactone Allergy Unknown Verified 12/01/22 16:48 rivaroxaban [From Xarelto] AdvReac Severe PERICARDIAL Verified 12/01/22 16:48 EFFUSION hydrochlorothiazide AdvReac NEEDS Verified 12/01/22 16:48 FOLLOW-UP lisinopril AdvReac NEEDS Verified 12/01/22 16:48 FOLLOW-UP metoprolol AdvReac Shortness Verified 12/01/22 16:48 of breath simvastatin AdvReac Pain in Verified 12/01/22 16:48 joints Family History Mother Cancer Uterine Thyroid disorder Father Cancer lung Hypertension Surgical History Failed total knee replacement History of parathyroidectomy (2009) History of permanent cardiac pacemaker placement (06/2018) History of thyroidectomy, total (2009) History of tonsillectomy and adenoidectomy History of total hysterectomy 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/2022) Social History household members: spouse and other number of children: 2 current occupational status: retired current occupation: worked in the [employer] at [employer] Smoking Status: Never smoker alcohol intake: never substance use type: does not use caffeine: No do you feel safe at home: Yes ROS ROS Narrative Pertinent positives and pertinent negatives as noted in HPI. All other systems were reviewed and are negative Vital Signs Vital Signs Vital Signs: 12/01/22 16:48 12/01/22 16:53 12/01/22 17:16 Temperature 97.7 F L Temperature Source Temporal Pulse Rate 64 54 L Respiratory Rate 18 Respiratory Effort Normal Blood Pressure 203/76 H 176/68 H Blood Pressure Mean 118 Pulse Ox 100 Oxygen Delivery Method Room Air 12/01/22 17:37 12/01/22 17:47 12/01/22 18:00 Temperature Temperature Source Pulse Rate 54 L 58 L 48 L Respiratory Rate 16 16 Respiratory Effort Blood Pressure 172/67 H 178/84 H 175/78 H Blood Pressure Mean 115 110 Pulse Ox 99 99 Oxygen Delivery Method Room Air Room Air 12/01/22 19:07 Temperature Temperature Source Pulse Rate 53 L Respiratory Rate 12 Respiratory Effort Blood Pressure 177/69 H Blood Pressure Mean 105 Pulse Ox 98 Oxygen Delivery Method Room Air Weight Weight: 80 kg Body Mass Index (BMI) 32.2 Physical Exam Narrative Physical exam: General: Well-nourished, well-developed. Head: Normocephalic, atraumatic, no tenderness Eyes: Vision is grossly intact. EOMI ENT, no trauma, moist mucous membranes, no rhinorrhea Neck: Nontender, No thyromegaly. CVS: Regular rate and rhythm. S1-S2 present. Murmur present. Respiratory : clear to auscultation bilaterally, chest wall nontender, no wheezing Abdomen: Soft, nontender, nondistended, normal bowel sounds, no masses : Deferred Back: Nontender, no CVA tenderness. Extremities: Nontender full range of motion, no trauma Skin: Normal color, no trauma, abrasions Neuro: Alert, oriented, cranial nerves II through XII grossly intact. Psychiatry: Normal mood. Normal affect. Not depressed. Not anxious. Results Lab / Micro Data Result Diagrams: 12/01/22 17:18 12/01/22 17:18 Labs: Laboratory Results - last 24 hr 12/01/22 17:18: WBC 6.3, RBC 4.00 L, Hgb 12.2, Hct 38.4, MCV 96.0, MCH 30.5, MCHC 31.8 L, RDW Std Deviation 49.1 H, RDW Coeff of Ignacia 13.8, Plt Count 261, MPV 9.7, Immature Gran % (Auto) 0.300, Neut % (Auto) 55.8, Lymph % (Auto) 34.1, [place] % (Auto) 8.8, Eos % (Auto) 0.8, Baso % (Auto) 0.2, Absolute Neuts (auto) 3.5, Absolute Lymphs (auto) 2.16, Nucleated RBC % 0 12/01/22 17:18: Sodium 136, Potassium 3.8, Chloride 104, Carbon Dioxide 25.0, Anion Gap 7, BUN 42 H, Creatinine 1.48 H, Estim Creat Clear Calc 23.58, Est GFR (MDRD) Af Amer 43 L, Est GFR (MDRD) Non-Af 36 L, BUN/Creatinine Ratio 28.4 H, Glucose 99, Calcium 10.4 H, Troponin I High Sens 114 H Rhythm Strip Rhythm Strip: Paced Rate: 74 Ectopy: None Radiology Impression Chest X-Ray 12/01/22 17:35 IMPRESSION: There are no acute findings. Electronically Signed: Octavio Berg MD at 18:09 EST Reading Location ID and State: [facility] / [place] , Service support , Assessment & Plan Assessment/Plan (1) NSTEMI, initial episode of care: (2) Essential hypertension: (3) CKD (chronic kidney disease) stage 3, GFR 30-59 ml/min: (4) Diabetes mellitus, type 2: PLAN: Plan Non-STEMI Initial high sensitive troponin was 114. Repeat was 406. Trend. Place on a monitored bed at PCU Actual CXR image was independently visualized. No acute cardiopulmonary process was noted. I agree with radiologist interpretation. Actual EKG tracing was independently visualized. EKG tracing showed atrial paced rhythm with prolonged AV conduction. ASA 81 mg p.o. daily ordered continued. Morphine as needed for pain ordered We will check lipid panel. Statin: Allergy list include pain in joints with simvastatin. On home lovastatin. Therapeutic change with atorvastatin in the hospital With history of pericardial effusion with Xarelto hold off anticoagulation at this time. Stat EKG as needed for chest pain Discussed case with cardiology. Cardiology consult. N.p.o. after midnight pending cardiology evaluation Hypertension Blood pressure is not within goal Home amlodipine?olmesartan not able to be started by patient's outpatient since insurance did not pay. While inpatient we will start patient on amlodipine and Cozaar. Chlorthalidone, doxazosin; nebivolol and Finerenone continued As needed hydralazine ordered. Trend blood pressure and adjust blood pressure medications. Diabetes mellitus Stable Patient was euglycemic on presentation. Hold glimepiride Monitor Accu-Cheks Correction scale insulin ordered. History of atrial fibrillation Paced rhythm on presentation with mild bradycardia. Nebivolol continue on. Not on anticoagulation secondary to side effects. CKD stage IIIb Stable Trend BMP Acute UTI Not worsening. On home Keflex, continued. DVT prophylaxis SCDs ordered. Charges/Coding Visit Charges Inpatient E&M: 43072 Init Hosp L3
[2022-12-01 19:23] LABS: Reflex Troponin-HS? (from REC) Y
[2022-12-01] MEDS: Ondansetron 4 MG/2 ML Vial IV (19:23)
[2022-12-01] MEDS: Morphine 4 MG/ML Syringe IV (19:23)
--- NOTE | 2022-12-01 19:36 | EKG12_ITS ---
Test Reason : REPEAT CP Blood Pressure : / mmHG Vent. Rate : 052 BPM Atrial Rate : 052 BPM P-R Int : 240 ms QRS Dur : 174 ms QT Int : 494 ms P-R-T Axes : 000 -58 130 degrees QTc Int : 459 ms Atrial-paced rhythm with prolonged AV conduction Left axis deviation Left bundle branch block Abnormal ECG Confirmed by AIDEN GERBER, MARITZA ([id number]), advertising editor YESICA FERNANDEZ ([id number]) on 12/02/2022 2:46:04 PM Referred By: LUCILA Confirmed By:MARITZA WOLFE MD
[2022-12-01 19:59] LABS: Troponin-I HS 406 pg/mL (3.0-54.0)
--- NOTE | 2022-12-01 20:42 | ECHOCS_ITS ---
Reason For Study: NSTEMI Procedure This was a 2D Doppler, Color Flow transthoracic echocardiogram. The exam was of adequate technical quality. Exam performed portable in patient room. Left Ventricle Normal LV size. Mild concentric left ventricular hypertrophy. Mild segmental systolic dysfunction (see wall motion). The estimated ejection fraction is 40 %. Septal motion consistent with IVCD. Stage 2 diastolic dysfunction. Infero-Basal: Hypokinetic. Mid-Inferior: Akinetic. Mid-inferoseptal : Akinetic. Mid-anteroseptal : Akinetic. Inferior [place] : Akinetic. Lateral [place] : Hypokinetic. Septal [place] : Akinetic. [place] : Hypokinetic. Right Ventricle Normal RV size. ICD or pacer leads identified within the right ventricle. Normal systolic function. Atria The left atrium is moderately enlarged. Normal right atrium. ICD or pacer leads identified within the right atrium. No doppler evidence for ASD. Mitral Valve There is mild mitral annular calcification. The mitral valve chordae are thickened and/or calcified. Mild (1+) mitral valve insufficiency. Tricuspid Valve Normal tricuspid valve. Moderate (2+) tricuspid valve insufficiency. Right ventricular systolic pressure estimated to be 66 mmHg. Severe pulmonary hypertension. Aortic Valve Trisinus/trileaflet aortic valve. Moderate diffuse aortic valve thickening. Moderate focal aortic valve calcification. Moderately severe calcific aortic valve stenosis. Pulmonic Valve The pulmonic valve is not well visualized. Trivial pulmonic valve insufficiency. Great Vessels The aortic root is not well visualized. Pericardium/Pleural No pericardial effusion. MMode/2D Measurements & Calculations LVIDd: 4.8 cm IVSd: 1.4 cm LVOT diam: 1.8 cm LVIDs: 3.6 cm LVPWd: 1.3 cm LVOT area: 2.6 cm2 RVDd: 3.4 cm FS: 25.0 % LAV(MOD-sp4): 100.3 ml LVAd ap4: 28.1 cm2 SV(MOD-sp4): 30.5 ml LVLd ap4: 7.9 cm EDV(MOD-sp4): 84.0 ml EDV(sp4-el): 84.6 ml LVAs ap4: 22.2 cm2 LVLs ap4: 7.5 cm ESV(MOD-sp4): 53.4 ml ESV(sp4-el): 55.9 ml EF(MOD-sp4): 36.4 % EF(sp4-el): 34.0 % SV(sp4-el): 28.7 ml LA A4 area: 29.6 cm2 LA dimension(2D): 4.5 cm RA A4 area: 14.2 cm2 Time Measurements MV dec time: 0.16 sec Doppler Measurements & Calculations MV E max jose: 95.2 cm/sec Lat Peak E' Jose: 9.3 cm/sec Med Peak E' Jose: 3.1 cm/sec MV A max jose: 53.6 cm/sec E/E' lat: 10.2 E/E' med: 31.2 MV E/A: 1.8 MV V2 max: 100.2 cm/sec Ao V2 max: 294.2 cm/sec MV max P.0 mmHg MV dec slope: 590.2 cm/sec2 Ao max P.9 mmHg MV V2 mean: 49.7 cm/sec Ao V2 mean: 206.5 cm/sec MV mean P.2 mmHg Ao mean P.3 mmHg MV V2 VTI: 46.0 cm Ao V2 VTI: 77.4 cm AV (velocity ratio): 0.34 MVA(VTI): 1.5 cm2 STEVE(I,D): 0.88 cm2 STEVE(V,D): 0.86 cm2 LV V1 max: 99.2 cm/sec SV(LVOT): 68.3 ml PA V2 max: 77.5 cm/sec LV V1 max P.9 mmHg PA V2 mean: 56.3 cm/sec LV V1 mean P.2 mmHg LV V1 mean: 68.2 cm/sec LV V1 VTI: 26.6 cm TR max jose: 396.3 cm/sec TR max P.8 mmHg ECHO/Echo Complete W/ Contrast Interpretation Summary Mild segmental systolic dysfunction (see wall motion). The estimated ejection fraction is 40 %. Septal motion consistent with IVCD. Mild concentric left ventricular hypertrophy. The left atrium is moderately enlarged. There is mild mitral annular calcification. The mitral valve chordae are thickened and/or calcified. Mild (1+) mitral valve insufficiency. Moderate (2+) tricuspid valve insufficiency. Moderately severe calcific aortic valve stenosis. Trivial pulmonic valve insufficiency. Right ventricular systolic pressure estimated to be 66 mmHg. Severe pulmonary hypertension. Stage 2 diastolic dysfunction. ICD or pacer leads identified within the right atrium ICD or pacer leads identified within the right ventricle. Ordering Physician: Harrison Wright Referring Physician: JORGE BENAVIDES Performed By: Rajani Garcia RCS
--- NOTE | 2022-12-01 21:40 | NURSING ---
Pt noted with complaint of continued chest pain 7-05/08, physician previously notified. per physician order PRN morphine can be provided Q 3 hours. 02 applied at 2L via NC, pt with complaint of mild nausea, abbie rom provided. pt requests supper meal, low-sodium chicken noodle soup provided, will monitor.
--- NOTE | 2022-12-01 21:56 | NURSING ---
pt reports chest pain is beginning to improve. will continue to monitor.
[2022-12-01] MEDS: proCHLORPERazine 10 MG/2 ML Vial 5 MG IV (23:44)
[2022-12-01] MEDS: Morphine 2 MG/ML Syringe IV (23:45)
[2022-12-01] MEDS: 0.9% Saline Lock 10 ML Syringe IV (23:46)
[2022-12-02] VITALS (8 sets, daily range): BP systolic 130–170; BP diastolic 51–74; PULSE 45–54; RESP 16–20; TEMP 36.4–36.7; O2SAT 94–100
[2022-12-02 00:33] LABS: Troponin-I HS 812 pg/mL (3.0-54.0)
[2022-12-02] MEDS: Cephalexin 500 MG Capsule PO ×3 (01:34→20:04)
[2022-12-02] MEDS: Latanoprost 0.005% 1 Bottle 1 DRP EACH EYE ×2 (01:34→20:06)
[2022-12-02 01:56] LABS: Bedside Glucose 148 mg/dL (74-106)
[2022-12-02 05:59] LABS: Absolute Lymphocyte Count 1.03 X10^3/uL (0.83-4.51); Absolute Neutrophil Count 3.7 X10^3/uL (2.0-7.7); Basophil# 0.01 X10^3/uL; Basophil% 0.2 % (0-1); Eosinophil# 0.01 X10^3/uL; Eosinophils% 0.2 % (0-5); Hematocrit 36.2 % (37-47); Lymphocyte # 1.03 X10^3/ul (0.83-4.51); Lymphocyte % 20.1 % (19-41); Mean Corp Hgb Conc 30.4 g/dL (32-36); Mean Corpuscular Hgb 30.2 pg (27.0-32.0); Mean Corpuscular Volume 99.5 fL (81-99); Mean Platelet Vol. 10.6 fl (6.2-12.0); Monocyte# 0.31 X10^3/uL; Monocyte% 6.1 % (0-10); NRBC Flagged by Analyzer 0 % (0-5); Neutrophil # 3.74 X10^3/uL (2.7-7.7); Platelet Count 219 K/mm3 (150-450); RBC Distribution Width CV 13.7 % (11.6-14.6); Red Blood Count 3.64 M/mm3 (4.2-5.4); White Blood Count 5.1 K/mm3 (4.4-11.0)
[2022-12-02] MEDS: Levothyroxine 125 MCG Tablet PO (06:06)
[2022-12-02 06:25] LABS: Bedside Glucose 88 mg/dL (74-106)
[2022-12-02 06:47] LABS: Anion Gap 10 (5-15); BUN 40 mg/dL (7-18); BUN/Creat Ratio 27.2 RATIO (10-20); Calcium,Total 9.9 mg/dL (8.5-10.1); Chloride 105 mmol/L (98-107); Cholesterol 157 mg/dL (200); Creatinine, Serum 1.47 mg/dL (0.55-1.02); EST Glomerular Filtration Rate 36 mL/min (>60); Est Glom Filt Rate - Afr Amer 44 mL/min (>60); Estimated Creatinine Clearance 23.74 ml/min; Glucose 115 mg/dL (74-106); High Density Lipoprotein 69 mg/dL; Potassium 4.4 mmol/L (3.5-5.1); Sodium Level 138 mmol/L (136-145); Triglycerides 44 mg/dL; Very Low Density Lipoprotein 9 mg/dL (5-40)
--- NOTE | 2022-12-02 07:24 | PCM.CONS.C ---
Assessment & Plan Assessment/Plan (1) NSTEMI, initial episode of care: PLAN: The patient presented with symptoms which she states is different from her symptoms related to her pericardial disease process. She has had objective findings by cardiac enzymes concerning for a non-ST segment elevation MN. Her ECG continues to demonstrate an underlying electronic atrial paced rhythm with a left bundle branch block pattern. Her previous noninvasive and invasive cardiovascular test performed locally and through the [facility] system were reviewed. At the present time she will continue to be monitored. She will continue medical therapy. At the moment this includes her aspirin 81 mg p.o. daily, her beta-ricarda with nebivolol, her medical therapy with losartan 100 mg p.o. nightly and amlodipine at 10 mg p.o. nightly, and her atorvastatin at 5 mg p.o. daily-dose may need to be adjusted. She has been hesitant to initiate any anticoagulant therapy based upon her concerns of her previous pericardial disease process with pericarditis and pericardial effusion requiring pericardiocentesis while she was on oral systemic anticoagulant therapy. She can have a follow-up echocardiogram to reassess her left ventricular wall motion and systolic function. She has been recommended for further evaluation with diagnostic cardiac catheterization. The procedure and risks were discussed with her. She is agreeable to this approach. (2) PAF (paroxysmal atrial fibrillation): PLAN: The patient has a history of paroxysmal atrial fibrillation. She is not currently on oral systemic anticoagulant therapy based upon the concerns above. To the best of her knowledge she does not recall her [facility] physicians discussing with her proceeding with a left atrial appendage occluder type device. This may be something that will need to be considered in her future if she cannot be on oral systemic anticoagulant therapy to minimize her risk of atrial fibrillation related thromboembolic disease and CVA. (3) History of permanent cardiac pacemaker placement: PLAN: The patient has a permanent pacemaker. It has been interrogated in the past. It appears she paces in the atria predominantly. Her battery longevity has been stable. (4) Nonrheumatic aortic valve stenosis: PLAN: The patient does have underlying aortic valve stenosis. She has been evaluated noninvasively for this as noted by her aforementioned studies. This does need to be taken into consideration with future ongoing evaluation and care. (5) Chronic pericarditis with effusion: PLAN: The patient has a history of pericarditis with pericardial effusion and pericardiocentesis (while on anticoagulant therapy with rivaroxaban). She has been on chronic medical therapy with colchicine at 0.6 mg p.o. q. other day. At the moment she does not appear to have symptoms as she did in the past associated with her pericarditis. Her examination does not demonstrate an obvious pericardial friction rub at this time. Her ECG is as noted above. She can be followed with an echocardiogram to monitor for any obvious changes with respect to this disease process. Otherwise she will continue her chronic medical therapy. She will proceed with her other cardiovascular evaluation as noted. (6) HLD (hyperlipidemia): QUALIFIERS: Hyperlipidemia type: unspecified Qualified Code(s): E78.5 - Hyperlipidemia, unspecified PLAN: She has a history of hyperlipidemia. She has been on low-dose lipid-lowering therapy with her atorvastatin. Depending upon her findings with respect any obvious underlying CAD process she may need to have this dose increased as tolerated. (7) History of hypertension: PLAN: The patient states she has had difficulty controlling her blood pressure. She has been seen by multiple physicians for this. She is continuing her medical therapy as described above. Her blood pressure can be monitored and her medicines adjusted as needed. (8) History of chronic kidney disease: PLAN: The patient also has a history of chronic renal insufficiency. This may be secondary to her multiple medical issues. At the moment her creatinine level is somewhat lower than it was in September of this year. This will need to be monitored as she progresses through her hospital course. Addt'l Comments The patient's case has been discussed at length with the patient and reviewed previously with the [facility] staff. Comment: Time spent in the patient's overall evaluation, examination, review of medical records, review of her radiologic studies, review of cardiovascular studies, discussion/communication, placing orders, documentation, etc.: 60 minutes. HPI Consult Data Date of Consult: 12/02/22 HPI Narrative HPI Narrative: LYNETTE WEBSTER, is a 82 year old white female who presents for cardiovascular consultation based upon concerns of an acute non-ST segment elevation MN superimposed upon a cardiovascular history of atrial fibrillation, permanent pacemaker placement, valvular heart disease with aortic valve stenosis, pericarditis with associated pericardial effusion (while on anticoagulant therapy with rivaroxaban) status post pericardiocentesis-remote, hyperlipidemia, hypertension, diabetes mellitus, chronic renal insufficiency, and CLIFOFRD. The patient states that she was visiting family and while sitting in the automobile and waiting to leave she developed chest discomfort. She describes her discomfort as a heavy pressure sensation as she points to the center of her chest. She states it did not necessarily radiate to her back area as her previous pericarditis did. At the time she did not have ongoing nausea or emesis or acute dyspnea nor did she become diaphoretic. However, based upon her symptoms, she elected to present to the hospital for further evaluation. She states in the emergency department she was treated with nitroglycerin sublingual. She is unsure whether there is any significant change in her discomfort at that time. She subsequent was treated with IV morphine. She states this led to nausea and emesis. She was then treated with IV Zofran. She notes eventually her discomfort dissipated. After arriving in the PCU she did have a meal with chicken noodle soup. She states after that she had additional nausea and emesis. She has denied a history of orthopnea or PND or ongoing peripheral pitting edema. She states there is been no near-syncope or syncope. Her initial high-sensitivity troponin I level was 114. It is subsequently increased to 812. Her ECG demonstrated what appeared to be an underlying electronic atrial paced rhythm with an underlying left bundle branch block pattern. Her chest x-ray was reviewed. It appeared to demonstrate a left-sided dual-chamber pacemaker device with no obvious acute cardiopulmonary disease process. She has undergone previous noninvasive and invasive studies at [facility] as well as noninvasive studies through the [facility] system. She states her previous pericarditis with pericardial effusion requiring pericardiocentesis was performed through the [facility] system. [facility] Medical History Abnormal cardiac enzyme level Anxiety Atrial fibrillation Bradycardia Carotid bruit Chronic pericarditis with effusion Chronic renal failure, stage 3a Diabetes Diabetes mellitus, type 2 Essential hypertension Glaucoma Gout Hemoptysis HLD (hyperlipidemia) Hypersomnolence Hyperthyroidism Hypothyroidism Kidney disease Left bundle branch block (LBBB) LVH (left ventricular hypertrophy) Musculoskeletal back pain CLIFFORD (obstructive sleep apnea) Osteoarthritis PAF (paroxysmal atrial fibrillation) Pericardial effusion (08/23/20) Physical debility Secondary pulmonary arterial hypertension Sick sinus syndrome Sleep apnea Home Medications Oral Appliance #1 ea 03/19/22 [Rx Last Taken Unknown] latanoprost 0.005 % eye drops 1 drp EACH EYE QHS Check with primary doctor 03/28/22 [History Last Taken Unknown] aspirin 81 mg tablet,delayed release (Adult Low Dose Aspirin) 81 mg PO DAILY antiplatelet 06/19/22 [History Last Taken Unknown] colchicine 0.6 mg tablet 0.6 mg PO .qod PERICARDITS 06/19/22 [History Last Taken Unknown] levothyroxine 125 mcg tablet 125 mcg PO DAILY Check with primary doctor #90 tabs 10/07/22 [Rx Last Taken Unknown] amlodipine 10 mg-olmesartan 40 mg tablet 1 tab PO QHS blood pressure 12/01/22 [History Last Taken Unknown] cephalexin 500 mg capsule 500 mg PO BID UTI 12/01/22 [History Last Taken Unknown] chlorthalidone 25 mg tablet 12.5 mg PO DAILY blood pressure 12/01/22 [History Last Taken Unknown] doxazosin 2 mg tablet 2 mg PO QHS blood pressure 12/01/22 [History Last Taken Unknown] finerenone 10 mg tablet (Kerendia) 10 mg PO DAILY kidneys 12/01/22 [History Last Taken Unknown] glimepiride 2 mg tablet 1 mg PO DAILY blood sugar 12/01/22 [History Last Taken Unknown] inulin 2 gram chewable tablet (Fiber Gummies) 2 g PO BID soft stool 12/01/22 [History Last Taken Unknown] lovastatin 20 mg tablet 20 mg PO QHS cholesterol 12/01/22 [History Last Taken Unknown] nebivolol 10 mg tablet 10 mg PO QHS blood pressure 12/01/22 [History Last Taken Unknown] rhjyf0-rhp-mum-other [id number]-jilx oil 350 mg- 400 mg capsule 830 cap PO DAILY supplement 12/01/22 [History Last Taken Unknown] pantoprazole 40 mg tablet,delayed release 40 mg PO DAILY antiacid 12/01/22 [History Last Taken Unknown] Allergy/AdvReac Type Severity Reaction Status Date / Time benazepril [From Lotensin] Allergy Unknown Verified 12/01/22 16:48 Iodine and Iodide Containing Allergy Shortness Verified 12/01/22 16:48 Produc of breath meperidine [From Demerol] Allergy Unknown Verified 12/01/22 16:48 metformin [From Janumet] Allergy Pain in Verified 12/01/22 16:48 joints Penicillins Allergy Hives Verified 12/01/22 16:48 propoxyphene [From Darvon] Allergy Unknown Verified 12/01/22 16:48 shellfish derived Allergy Shortness Verified 12/01/22 16:48 of breath sitagliptin [From Janumet] Allergy Pain in Verified 12/01/22 16:48 joints spironolactone Allergy Unknown Verified 12/01/22 16:48 rivaroxaban [From Xarelto] AdvReac Severe PERICARDIAL Verified 12/01/22 16:48 EFFUSION hydrochlorothiazide AdvReac NEEDS Verified 12/01/22 16:48 FOLLOW-UP lisinopril AdvReac NEEDS Verified 12/01/22 16:48 FOLLOW-UP metoprolol AdvReac Shortness Verified 12/01/22 16:48 of breath simvastatin AdvReac Pain in Verified 12/01/22 16:48 joints Family History Mother Cancer Uterine Thyroid disorder Father Cancer lung Hypertension Surgical History Failed total knee replacement History of parathyroidectomy (2009) History of permanent cardiac pacemaker placement (06/2018) History of thyroidectomy, total (2009) History of tonsillectomy and adenoidectomy History of total hysterectomy 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/2022) Social History household members: spouse and other number of children: 2 current occupational status: retired current occupation: worked in the [employer] Smoking Status: Never smoker alcohol intake: never substance use type: does not use caffeine: No do you feel safe at home: Yes ROS Constitutional Constitutional: Reports as per HPI Eyes Eyes: Reports as per HPI ENT HEENT: Reports as per HPI Cardiovascular Cardiovascular: Reports chest pain at rest, nausea and vomiting Respiratory/Chest Respiratory/Chest: Reports as per HPI Gastrointestinal Gastrointestinal: Reports nausea and vomiting Genitourinary Genitourinary: Reports as per HPI Musculoskeletal Musculoskeletal: Reports as per HPI Integumentary Integumentary: Reports as per HPI Neurologic Neurologic: Reports as per HPI Physical Exam Const alert, oriented x3 and no apparent distress Orientation / Consciousness: awake HEENT normocephalic, head/scalp atraumatic and hearing grossly normal bilaterally Eyes PERRL, EOMs intact bilaterally, conjunctivae normal and no scleral icterus Neck full ROM, supple and no JVD Carotids: delayed carotid upstroke Resp normal respiratory effort and clear to auscultation bilaterally Cardio regular rate, regular rhythm and S1 normal heart sound Heart Sounds: murmur systolic III/ harsh late left sternal border, LVOT and sternal notch to carotid arteries and abnormal sounds diminished A2 GI normal to inspection, nondistended, normoactive bowel sounds Extremity no pedal edema Skin no rashes or lesions noted Psych mental status grossly normal Risk Stratification Risk Stratification Applicable: Yes Age >/= 65: Yes >/= 3 CAD Risk Factors (HTN, HLD, DM, family hx of CAD, or current smoker): Yes Aspirin Use in the Past 7 Days: Yes Severe Angina (>/= episodes in 24 hours): Yes EKG ST Changes >/= 0.5mm: No Positive Cardiac Marker: Yes KUNAL Risk Stratification Score: 5 KUNAL % Risk: 25% Risk Procedure Criteria Type of Procedure Procedure Type: Elective Elective Risks - COVID COVID Risk Discussion: The surgeon/proceduralist and patient have discussed in detail the risk of exposure to and/or potential harm posed by the COVID-19 virus with having a surgery/procedure at this time versus the risk of delaying the surgery/procedure. It is not possible to know either the risk of delaying the surgery or procedure or chance of getting an infection with perfect accuracy, but a joint decision was made between the patient and the surgeon/proceduralist to proceed at this time with the scheduled surgery/procedure as indicated on the consent form. Objective Data Vital Signs: Vital Signs Temp Pulse Resp BP Pulse Ox O2 Del Method O2 Flow Rate 97.5 F L 45 L 20 H 130/55 H 96 Nasal Cannula 2 12/02/22 06:00 12/02/22 06:00 12/02/22 06:00 12/02/22 06:00 12/02/22 06:00 12/02/22 06:00 12/02/22 06:00 Oxygen Flow Rate (L/min) 2 Oxygen Delivery Method Nasal Cannula Weight: 174 lb 2.643 oz Body Mass Index (BMI) 31.8 Intake & Output: Intake and Output for Last 24 Hours 03/04/23 03/05/23 03/06/23 23:59 23:59 23:59 Intake Total 120 / 120 Balance 120 / 120 Lab / Micro Data Result Diagrams: 12/02/22 04:19 12/02/22 04:19 Labs: Laboratory Results - last 24 hr 12/01/22 17:18: WBC 6.3, RBC 4.00 L, Hgb 12.2, Hct 38.4, MCV 96.0, MCH 30.5, MCHC 31.8 L, RDW Std Deviation 49.1 H, RDW Coeff of Ignacia 13.8, Plt Count 261, MPV 9.7, Immature Gran % (Auto) 0.300, Neut % (Auto) 55.8, Lymph % (Auto) 34.1, Claiborne % (Auto) 8.8, Eos % (Auto) 0.8, Baso % (Auto) 0.2, Absolute Neuts (auto) 3.5, Absolute Lymphs (auto) 2.16, Nucleated RBC % 0 12/01/22 17:18: Sodium 136, Potassium 3.8, Chloride 104, Carbon Dioxide 25.0, Anion Gap 7, BUN 42 H, Creatinine 1.48 H, Estim Creat Clear Calc 23.58, Est GFR (MDRD) Af Amer 43 L, Est GFR (MDRD) Non-Af 36 L, BUN/Creatinine Ratio 28.4 H, Glucose 99, Calcium 10.4 H, Troponin I High Sens 114 H 12/01/22 19:20: Troponin I High Sens 406 H* 12/01/22 22:25: Troponin I High Sens 812 H* 12/02/22 01:30: POC Glucose 148 H 12/02/22 04:19: WBC 5.1, RBC 3.64 L, Hgb 11.0 L, Hct 36.2 L, MCV 99.5 H, MCH 30.2, MCHC 30.4 L, RDW Std Deviation 50.0 H, RDW Coeff of Ignacia 13.7, Plt Count 219, MPV 10.6, Immature Gran % (Auto) 0.400, Neut % (Auto) 73.0 H, Lymph % (Auto) 20.1, Claiborne % (Auto) 6.1, Eos % (Auto) 0.2, Baso % (Auto) 0.2, Absolute Neuts (auto) 3.7, Absolute Lymphs (auto) 1.03, Nucleated RBC % 0 12/02/22 04:19: Sodium 138, Potassium 4.4, Chloride 105, Carbon Dioxide 23.0, Anion Gap 10, BUN 40 H, Creatinine 1.47 H, Estim Creat Clear Calc 23.74, Est GFR (MDRD) Af Amer 44 L, Est GFR (MDRD) Non-Af 36 L, BUN/Creatinine Ratio 27.2 H, Glucose 115 H, Calcium 9.9, Triglycerides 44, Cholesterol 157, LDL Cholesterol 79, VLDL Cholesterol 9, HDL Cholesterol 69 12/02/22 06:04: POC Glucose 88 Rhythm Strip Rhythm Strip: Paced Rate: 74 Ectopy: None Cardiology Labs/Tests 12/01/22 17:18: WBC 6.3, RBC 4.00 L, Hgb 12.2, Hct 38.4, MCV 96.0, MCH 30.5, MCHC 31.8 L, Plt Count 261, MPV 9.7, Immature Gran % (Auto) 0.300, Neut % (Auto) 55.8, Lymph % (Auto) 34.1, Claiborne % (Auto) 8.8, Eos % (Auto) 0.8, Baso % (Auto) 0.2, Absolute Neuts (auto) 3.5, Nucleated RBC % 0 12/01/22 17:18: Sodium 136, Potassium 3.8, Chloride 104, Carbon Dioxide 25.0, Anion Gap 7, BUN 42 H, Creatinine 1.48 H, Est GFR (MDRD) Af Amer 43 L, Est GFR (MDRD) Non-Af 36 L, BUN/Creatinine Ratio 28.4 H, Glucose 99, Calcium 10.4 H 12/02/22 04:19: WBC 5.1, RBC 3.64 L, Hgb 11.0 L, Hct 36.2 L, MCV 99.5 H, MCH 30.2, MCHC 30.4 L, Plt Count 219, MPV 10.6, Immature Gran % (Auto) 0.400, Neut % (Auto) 73.0 H, Lymph % (Auto) 20.1, Claiborne % (Auto) 6.1, Eos % (Auto) 0.2, Baso % (Auto) 0.2, Absolute Neuts (auto) 3.7, Nucleated RBC % 0 12/02/22 04:19: Sodium 138, Potassium 4.4, Chloride 105, Carbon Dioxide 23.0, Anion Gap 10, BUN 40 H, Creatinine 1.47 H, Est GFR (MDRD) Af Amer 44 L, Est GFR (MDRD) Non-Af 36 L, BUN/Creatinine Ratio 27.2 H, Glucose 115 H, Calcium 9.9, Triglycerides 44, Cholesterol 157, LDL Cholesterol 79, VLDL Cholesterol 9, HDL Cholesterol 69 Rhythm: Sinus with intermittent electronic atrial paced rhythm EKG: As noted above ECHO: 08-23-2020 Interpretation Summary Normal LV size. Moderate concentric left ventricular hypertrophy. Left ventricular systolic function is normal. The estimated ejection fraction is 53 %. There are no echocardiographic indications of cardiac tamponade. Though there is some respiratory variation noted. Moderate pericardial effusion. This measures 2.4 to 2.7 cm. Echo: 05-30-2022: [facility] Conclusion: Technically difficult exam due to body habitus Exam indication: Pericardial condition The abnormal regional wall motion pattern in conjunction with normal regional wall thickness is consistent with a left bundle branch block abnormal conduction delay The left ventricle is mildly dilated. Left ventricular systolic function is mildly decreased. EF of 54?5%. Definity contrast used for endocardial border detection The right ventricle is normal in size. Right ventricular systolic function is normal. The left atrial cavity is dilated. There is moderate 2+ tricuspid valve regurgitation. Tricuspid aortic valve. There is moderately severe aortic valve stenosis caused by calcified valve and restricted opening. Aortic valve area is 1.03 cm? by continuity, VTI. The peak gradient is 29 mmHg, the mean gradient is 18 mmHg and a dimensionless valve index is 0.33. On 2D imaging, aortic valve opening appears moderately to severely reduced. The calculated aortic valve area suggest severe aortic stenosis, while the dimensionless index and transaortic gradients suggest moderate aortic stenosis. Prior transaortic gradients: 26/12 mmHg, DI: 0.35. No pericardial effusion. Abnormal septal motion in setting of left bundle branch block. No significant constrictive physiology. Exam was compared with the prior echocardiographic exam performed on 12-12-2021. On direct comparison the recorded trans aortic gradients are mildly higher today. Stress Test: 08-14-2020 Stress Test Report Pharmacologic myocardial perfusion stress test. 80-year-old lady with a history of chest pain. Stress protocol: Resting EKG demonstrates normal sinus rhythm with a rate of 61 bpm left bundle branch block is noted.? Resting blood pressure is 126/72 mmHg.? 0.4 mg of regadenoson was infused per usual protocol followed by rapid intravenous saline flush injection continuous EKG monitoring was performed.? The maximum heart rate attained was 75 bpm which was 53% of max impacted heart rate the maximum workload was 1 metabolic equivalent.? At rest there were no ST or T wave changes noted other than the left bundle branch block pattern present.? At peak infusion left bundle branch block pattern persisted.? Resting blood pressures 126/72 with a final blood pressure 118/68. Myocardial perfusion protocol. 12.0 mCi of technetium 99m sestamibi was injected at rest.? 0.4 mg of regadenoson was infused per usual protocol.? At peak infusion 33.6 mCi of technetium 99m sestamibi was injected stress images were obtained stress and rest images are reconstructed and compared in the short axis vertical long horizontal long axis.? Gated images were unable to be obtained Perfusion SPECT analysis: Review of the stress images demonstrate normal uptake of tracer noted in all areas of the myocardium the resting images similar demonstrate normal uptake of tracer noted in all areas of the myocardium.? No obvious reversibility is noted to suggest ischemia. Stress test: 02-17-2022: [facility] Conclusion: 1. SPECT perfusion study: Normal 2. There is no scintigraphic evidence for inducible ischemia 3. No evidence of scarred myocardium. 4. Left ventricle is normal in size. The left ventricle systolic function is normal. 5. Right ventricle is normal in size. The right ventricle systolic function is normal. 6. This is a low risk scan Gated stress FBP gated rest FBP: LVEF 62% -62% Conclusion: Normal pharmacologic myocardial perfusion stress test. Left bundle branch block pattern noted. Cardiac Cath: 02-16-2018 CONCLUSIONS Elevated Left Ventricular End Diastolic Pressure Normal LV size, wall motion,and systolic function LVEF: by LV gram 60 % [place] Multivessel CAD (minimal luminal irregularities) Aortic Valve Calcification- Mild Mitral Valve Insufficiency Mild RECOMMENDATIONS Risk factor modification Medical therapy DESCRIPTION OF? PROCEDURE The patient arrived to the procedure lab. The risks and benefits of the procedure as well as a full description of our services here and current unavailability of surgical backup were fully explained to the patient and/or their significant other prior to the catheterization. The Timeout was completed, verifying the correct patient and procedure. The patient's procedural site was prepped and draped in the usual fashion. Local anesthetic was given subcutaneously to right groin region with Lidocaine 2%. Using a modified Seldinger technique, arterial access was obtained via the right femoral artery, a 4Fr sheath was inserted? Left Coronary Artery selective angiography was performed in multiple views using a 4 Fr. JL5 catheter. Right Coronary Artery selective angiography was then performed in multiple views using a 4 Fr. 3DRC catheter. Left Ventriculography was performed in SHIPMAN projection using a 4 Fr. Pigtail catheter. LV to AO pullback pressures were then recorded.The arterial sheath was pulled and manual compression applied until hemostasis is achieved. CORONARY ANGIOGRAPHY DOMINANCE:? Right Dominant LEFT HEART ASSESSMENT Left Ventricular Ejection Fraction: by LV Gram 60 % Normal LV wall motion Elevated Left Ventricular End Diastolic Pressure LVEDP: 29 mmHg LEFT MAIN: Angiographically normal LEFT ANTERIOR DECENDING ARTERY: PROX LAD: Mild calcification, Mild luminal irregularities MID LAD: Mild luminal irregularities CIRCUMFLEX ARTERY: PROX CIRC: Mild luminal irregularities MID CIRC: Mild luminal irregularities RIGHT CORONARY ARTERY: Mild luminal irregularities VALVE FINDINGS: Aortic Valve Calcification - mild Mitral Valve Insufficiency - Grade 1 AORTIC ROOT: Angiographically normal PPM: Medtronic Sara XT MRI: Model: [id number]: Serial No.: [id number]: Implant Date: 07-01-2018 Radiography Diagnostic Testing: Radiology Impression Chest X-Ray 12/01/22 17:35 IMPRESSION: There are no acute findings. Electronically Signed: Octavio Berg MD at 18:09 EST Reading Location ID and State: [facility] / [place] , Service [facility] ,
[2022-12-02] MEDS: Famotidine 20 MG Tablet PO (07:46)
[2022-12-02] MEDS: DiphenhydrAMINE 25 MG Capsule 50 MG PO (07:46)
[2022-12-02] MEDS: predniSONE 20 MG Tablet 60 MG PO (07:46)
[2022-12-02] MEDS: Aspirin E.C. 81 MG Tablet PO (07:46)
[2022-12-02] MEDS: Chlorthalidone 50 MG Tablet 12.5 MG PO (07:47)
[2022-12-02] MEDS: Pantoprazole Sodium 40 MG Tablet PO (07:48)
[2022-12-02] MEDS: Omega-3 Acid Ethyl Esters 1 GM Capsule PO (07:48)
[2022-12-02] MEDS: 0.9% Saline Lock 10 ML Syringe IV (07:49)
--- NOTE | 2022-12-02 08:10 | PCM.PN.HOSP ---
Reason for Visit Reason for Visit: Diagnoses Type 2 diabetes mellitus without complications (12/01/22) Hyperlipidemia, unspecified (12/01/22) Essential (primary) hypertension (12/01/22) Non-ST elevation (NSTEMI) myocardial infarction (12/01/22) Other specified diseases of pericardium (12/01/22) Nonrheumatic aortic (valve) stenosis (12/01/22) Paroxysmal atrial fibrillation (12/01/22) Chronic kidney disease, stage 3 unspecified (12/01/22) Personal history of other diseases of the circulatory system (12/01/22) Personal history of other diseases of urinary system (12/01/22) Presence of cardiac pacemaker (12/01/22) Subjective Subjective Follow-up for non-STEMI. Patient has chronically high blood pressure. Cardiac cath was done in the morning. 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 Objective Data Objective Data Vital Signs: Vital Signs Temp Pulse Resp BP Pulse Ox O2 Del Method O2 Flow Rate 98.1 F 47 L 18 158/62 H 100 Nasal Cannula 2 12/02/22 08:00 12/02/22 08:00 12/02/22 08:00 12/02/22 08:00 12/02/22 08:00 12/02/22 08:00 12/02/22 08:00 Oxygen Flow Rate (L/min) 2 Oxygen Delivery Method Nasal Cannula Weight: 174 lb 2.643 oz Body Mass Index (BMI) 31.8 Intake & Output: Intake and Output for Last 24 Hours 11/30/22 12/01/22 12/02/22 23:59 23:59 23:59 Intake Total 120 / 120 Balance 120 / 120 Lab / Micro Data Result Diagrams: 12/02/22 04:19 12/02/22 04:19 Labs: Laboratory Results - last 24 hr 12/01/22 17:18: WBC 6.3, RBC 4.00 L, Hgb 12.2, Hct 38.4, MCV 96.0, MCH 30.5, MCHC 31.8 L, RDW Std Deviation 49.1 H, RDW Coeff of Ignacia 13.8, Plt Count 261, MPV 9.7, Immature Gran % (Auto) 0.300, Neut % (Auto) 55.8, Lymph % (Auto) 34.1, Forrest % (Auto) 8.8, Eos % (Auto) 0.8, Baso % (Auto) 0.2, Absolute Neuts (auto) 3.5, Absolute Lymphs (auto) 2.16, Nucleated RBC % 0 12/01/22 17:18: Sodium 136, Potassium 3.8, Chloride 104, Carbon Dioxide 25.0, Anion Gap 7, BUN 42 H, Creatinine 1.48 H, Estim Creat Clear Calc 23.58, Est GFR (MDRD) Af Amer 43 L, Est GFR (MDRD) Non-Af 36 L, BUN/Creatinine Ratio 28.4 H, Glucose 99, Calcium 10.4 H, Troponin I High Sens 114 H 12/01/22 19:20: Troponin I High Sens 406 H* 12/01/22 22:25: Troponin I High Sens 812 H* 12/02/22 01:30: POC Glucose 148 H 12/02/22 04:19: WBC 5.1, RBC 3.64 L, Hgb 11.0 L, Hct 36.2 L, MCV 99.5 H, MCH 30.2, MCHC 30.4 L, RDW Std Deviation 50.0 H, RDW Coeff of Ignacia 13.7, Plt Count 219, MPV 10.6, Immature Gran % (Auto) 0.400, Neut % (Auto) 73.0 H, Lymph % (Auto) 20.1, Forrest % (Auto) 6.1, Eos % (Auto) 0.2, Baso % (Auto) 0.2, Absolute Neuts (auto) 3.7, Absolute Lymphs (auto) 1.03, Nucleated RBC % 0 12/02/22 04:19: Sodium 138, Potassium 4.4, Chloride 105, Carbon Dioxide 23.0, Anion Gap 10, BUN 40 H, Creatinine 1.47 H, Estim Creat Clear Calc 23.74, Est GFR (MDRD) Af Amer 44 L, Est GFR (MDRD) Non-Af 36 L, BUN/Creatinine Ratio 27.2 H, Glucose 115 H, Calcium 9.9, Triglycerides 44, Cholesterol 157, LDL Cholesterol 79, VLDL Cholesterol 9, HDL Cholesterol 69 12/02/22 06:04: POC Glucose 88 Radiography Diagnostic Testing: Radiology Impression Chest X-Ray 12/01/22 17:35 IMPRESSION: There are no acute findings. Electronically Signed: Octavio Berg MD at 18:09 EST Reading Location ID and State: [facility] / [place] , Service support , Rhythm Strip Rhythm Strip: Paced Rate: 74 Ectopy: None Physical Exam Narrative Physical exam General: Alert, Oriented x3, Cooperative HEENT: Atraumatic, PERRLA, EOMI, Normocephalic Oral: No Gingival or Mucosal Lesions/ Ulcerations Neck: Supple, No JVD, Negative Carotid Bruits Lungs: Air entry diminished in bilateral lung bases. No crepitation/rhonchi Cardiovascular: Regular rate, Regular Rhythm, Normal S1, Normal S2, systolic murmur right second ICS and LLSB Abdomen: Bowel Sounds Present, Soft, Non Tender, Non-Distended : No renal angle tenderness. No suprapubic tenderness. Extremities: Right radial artery cath access site. No hematoma no edema, Capillary Refill Less than 3 Seconds Skin: No rashes, No breakdown Musculoskeletal: No Tenderness to Palpation of Joints or Extremities Neurological: Cranial nerves II-XII grossly intact, DTR 2+/4 and Symmetrical, Neuro grossly intact Psych/Mental Status: Normal Affect, Appropriate. Assessment & Plan Assessment/Plan (1) NSTEMI, initial episode of care: (2) Essential hypertension: (3) CKD (chronic kidney disease) stage 3, GFR 30-59 ml/min: (4) Diabetes mellitus, type 2: PLAN: Plan 82-year-old female was admitted with substernal chest pain started about 1 and half hours prior to ED arrival. Her chest pain was anginal quality started at rest, heavy feeling without radiation. 1. Non-STEMI, nonobstructive coronary artery disease with history of moderately severe aortic stenosis, TR: Patient troponin was elevated 114, 406 and 912. Twelve-lead EKG shows atrial sensed ventricular paced rhythm. Patient was taken for cardiac cath in the morning. Cardiac cath shows nonobstructive coronary artery disease. Right dominant, EF by by echo 55%. LAD mild to moderate less than 50%, D1 proximal 40%. Circumflex and RCA less than 30%. Chest x-ray does not show acute cardiopulmonary process. Patient on aspirin. Patient had developed pericardial effusion with Xarelto. Vp Publisher Development was consulted. Patient had echo in May 2022 reported as EF 55%, to moderate 2+ TR and LA cavity dilated. RV normal in size and systolic function. LV mildly dilated. Moderately severe aortic valve stenosis with STEVE area 1.03 cm?, AV valve opening severely reduced with calcification, mean gradient 18 mmHg. Disparity between AV valve area size and mean gradient. Hypertension: Patient blood pressure is elevated. Patient has seen [facility] hypertension specialist Dr. Cifuentes who prescribed olmesartan and amlodipine combination but her insurance does not cover therefore patient agreed to take separately losartan and amlodipine. On hydralazine as needed for increased blood pressure more than 180 mmHg. Chlorthalidone, doxazosin; nebivolol and Finerenone continued Monitor BP. Diabetes mellitus type II Patient was euglycemic on presentation but she got mildly hypoglycemic after NPO. Repeat glucose 88. Hold glimepiride. Accu-Cheks and coverage Humalog sliding scale History of atrial fibrillation Paced rhythm on presentation with mild bradycardia. Nebivolol continue on. Not on anticoagulation secondary to side effects. CKD stage IIIb Stable Trend BMP Acute UTI Not worsening. On home Keflex, continued. DVT prophylaxis SCDs ordered. Charges/Coding Visit Charges Inpatient E&M: 86242 Subs Hosp L2
--- NOTE | 2022-12-02 10:56 | CL.D_ITS ---
Patient Name: LYNETTE WEBSTER Study Date: 12/02/2022 Performing: Jesse Sykes MD Ht: 62 inches 157.48 cm : 1940 Wt: 174.17 lbs 79 kg Age: 82 Gender: female BSA: 1.8 PROCEDURE(S) PERFORMED DC02-(74485)LHC/COR CLINICAL PROFILE AND INDICATIONS Indications: Suspected CAD Heart Failure: None Stress/Imaging Stress/Image Study Performed: No CAD Presentations: Non-STEMI. Symptom onset Date/Time: 12/01/22 Time Not Available CONCLUSIONS Mild to moderate diffuse coronary disease with no areas of high-grade stenosis noted. RECOMMENDATIONS Medical therapy DESCRIPTION OF PROCEDURE The patient arrived to the procedure lab. The risks and benefits of the procedure as well as a full description of our services here and current unavailability of surgical backup were fully explained to the patient and/or their significant other prior to the catheterization. The Timeout was completed, verifying the correct patient and procedure. The patient's procedural site was prepped and draped in the usual fashion. Local anesthetic was given subcutaneously to right radial region with Lidocaine 2%. Using a modified Seldinger technique, arterial access was obtained via the right ulnar artery, a 6Fr sheath was inserted. Left Coronary Artery selective angiography was performed in multiple views using a 5 Fr. 4.0 Dunse[place] catheter. Right Coronary Artery selective angiography was then performed in multiple views using a 5 Fr. 4.0 Dunseith catheter.The arterial sheath was pulled and a TR Band was applied for hemostasis CORONARY ANGIOGRAPHY DOMINANCE: Right Dominant LEFT HEART ASSESSMENT Left Ventricular Ejection Fraction: by Echo 55 % LEFT MAIN: No significant disease noted LEFT ANTERIOR DESCENDING ARTERY: Left anterior descending artery is mildly calcified with mild to moderate mid segment disease with no areas greater than 50%. DIAGONAL 1: Proximal - 40 % Stenosis CIRCUMFLEX ARTERY: Mild luminal irregularities less than 30% RIGHT CORONARY ARTERY: Mild luminal irregularities less than 30% VALVE FINDINGS: Aortic Valve Calcification - moderate Aortic Valve Stenosis - moderate COMPLICATIONS No Complications PROCEDURE MEDICATIONS Fentanyl 50 mcg IV Versed 1 mg IV Oxygen: 2 L/min via nasal cannula Oxygen: 15 L/min via non-rebreather mask Oxygen: 3 L/min via nasal cannula Heparin given IA 12/02/2022 10:35:13 Verapamil 2.5mg, Ntg 100mcgs, 3000 units of Heparin given IA 12/02/2022 10:35:13 SUMMARY OF HEMODYNAMIC DATA Time AIR REST ECG 09:55:18 AO 165/75 (106) SA 10:38:25 Signed By Jesse Sykes MD On 12/02/2022 10:55:12 Jesse Sykes MD
[2022-12-02] MEDS: Glucerna Shake 120 ML LIQUID PO ×2 (11:31→17:15)
--- NOTE | 2022-12-02 12:00 | CASEMGMT ---
MIN HAGEN Face to Face with patient for initial transition planning/care coordination assessment. RN CM introduced self and role at [facility]. Patient lying in bed, alert and oriented. Patient willing to participate in assessment and is able to answer all questions appropriately. Care providers, pharmacy, and demographics verified. Patient wishes to discharge home, denies need for home health at this time. Patient states she has no further needs or concerns at this time. CM to follow for discharge planning needs that may arise. PCP: Kong Specialists: Vane, trauma nurse [facility]; ROMIE Hoffman trauma nurse Preferred Pharmacy: [facility] Insurance: [employer] [place] Prescription Benefit: yes, [employer] Living Will/HPOA: yesn Tayo Angulo LNOK: , son Living Arrangements: Patient lives with in a split level home with 7 steps and railing between levels. Patient states she is independent and able to ambulate stairs. Transportation: self, DME/HHC: Patient has raised toilet, walker, bipap, glucometer and supplies at home. Patient has [facility] HHC in the past. Disposition Plan: Patient to discharge home with family support and follow-up plans in place. Anaya LOPEZ, RN, CM
[2022-12-02 13:45] LABS: Bedside Glucose 48 mg/dL (74-106)
--- NOTE | 2022-12-02 14:43 | CHAPLAIN ---
Type of Pastoral Visit ___ Initial Visit ___ Follow-up Visit ___ On-call Visit ___ General Patient Visit ___ Spiritual Assessment ___ Family Conference ___ Bereavement ___ Rapid Response ___ Code Blue ___ Other (describe below) Pastoral Care Referral From ___ Patient ___ Family ___ Nurse ___ Physician ___ Rn Neurosurgical ___ Estimating Manager ___ Other (describe below) Sacrament/Intervention ___ Active listening ___ Anointing ___ Presybeterian ___ Bereavement ___ Communion ___ Tuyet exploration ___ ___ Life review ___ Prayer ___ Reconciliation ___ Sacrament of Sick ___ Supportive presence ___ Wedding ___ Other (describe below) Pastoral Comments patient is sleeping and does not awaken to her name; calling card left at bedside
[2022-12-02 17:15] LABS: Bedside Glucose 67 mg/dL (74-106)
[2022-12-02 17:15] LABS: Bedside Glucose 134 mg/dL (74-106)
[2022-12-02] MEDS: Insulin Lispro 100 UNIT/ML INSULN.PEN SC (17:18)
[2022-12-02 17:35] LABS: Bedside Glucose 306 mg/dL (74-106)
[2022-12-02] MEDS: Doxazosin 1 MG Tablet 2 MG PO (20:05)
[2022-12-02] MEDS: Atorvastatin Calcium 10 MG Tablet 5 MG PO (20:05)
[2022-12-02] MEDS: Losartan Potassium 100 MG Tablet PO (20:05)
[2022-12-02] MEDS: amLODIPine 10 MG Tablet PO (20:06)
[2022-12-03 01:25] LABS: Bedside Glucose 227 mg/dL (74-106)
[2022-12-03 02:00] VITALS: BP 120/46; PULSE 49; RESP 18; TEMP 36.5; O2SAT 93
[2022-12-03 05:09] VITALS: BP 146/64; PULSE 68; RESP 18; TEMP 36.4; O2SAT 96
[2022-12-03] MEDS: Levothyroxine 125 MCG Tablet PO (05:23)
[2022-12-03] MEDS: Insulin Lispro 100 UNIT/ML INSULN.PEN SC (06:11)
[2022-12-03 06:31] LABS: Bedside Glucose 180 mg/dL (74-106)
--- NOTE | 2022-12-03 07:36 | DS.PCM_ITS ---
Providers Date of Admission: 12/01/22 Date of Discharge: 12/03/22 Primary Care Physician: Dr. Jorge Triana MD Consultations 12/01/22 20:42 Consult: Cardiology Routine Consulting Provider: Brady Frye Reason for Consult: NSTEMI EMERGENT Consult: No MD Notified: Yes Date Notified: 12/01/22 Time Notified: 20:43 Method of Notification: Verbal Method of Consult:: In-Person Reason For Visit: NSTEMI Diagnosis Discharge Diagnosis (1) NSTEMI, initial episode of care: Status: Acute Code(s): I21.4 - Non-ST elevation (NSTEMI) myocardial infarction (2) Essential hypertension: Status: Chronic Code(s): I10 - Essential (primary) hypertension (3) CKD (chronic kidney disease) stage 3, GFR 30-59 ml/min: Status: Chronic Code(s): N18.30 - Chronic kidney disease, stage 3 unspecified (4) Diabetes mellitus, type 2: Status: Chronic Code(s): E11.9 - Type 2 diabetes mellitus without complications Plan 82-year-old female was admitted with substernal chest pain started about 1 and half hours prior to ED arrival. Her chest pain was anginal quality started at rest, heavy feeling without radiation. 1. Non-STEMI, nonobstructive coronary artery disease with history of moderately severe aortic stenosis, TR: Patient troponin was elevated 114, 406 and 912. Twelve-lead EKG shows atrial sensed ventricular paced rhythm. Patient was taken for cardiac cath in the morning. Cardiac cath shows nonobstructive coronary artery disease. Right dominant, EF by by echo 55%. LAD mild to moderate less than 50%, D1 proximal 40%. Circumflex and RCA less than 30%. Chest x-ray does not show acute cardiopulmonary process. Patient on aspirin. Patient had developed pericardial effusion with Xarelto. Kineseologist was consulted. Patient had echo in May 2022 reported as EF 55%, to moderate 2+ TR and LA cavity dilated. RV normal in size and systolic function. LV mildly dilated. Moderately severe aortic valve stenosis with STEVE area 1.03 cm?, AV valve opening severely reduced with calcification, mean gradient 18 mmHg. Disparity between AV valve area size and mean gradient. 12/03: Patient was seen by computer equipment installer. Rest as mentioned above. I explained the causes of angiogram to the patient including moderately severe aortic stenosis can cause angina 2. Hypertension: Patient blood pressure is elevated. Patient has seen [facility] hypertension specialist Dr. Cifuentes who prescribed olmesartan and amlodipine combination but her insurance does not cover therefore patient agreed to take separately losartan and amlodipine. On hydralazine as needed for increased blood pressure more than 180 mmHg. Chlorthalidone, doxazosin; nebivolol and losartan and amlodipine 11/27: BP has improved 146/64. Advised home BP monitoring. Patient is given a prescription for losartan and amlodipine and discontinue olmesartan amlodipine combination as it is not covered by her insurance.. Patient also follows [facility] computer equipment installer Dr. Hoffman Diabetes mellitus type II Patient was euglycemic on presentation but she got mildly hypoglycemic after NPO. Repeat glucose 88. Hold glimepiride. Accu-Cheks and coverage Humalog sliding scale 12/03: Glucose is controlled 180. Continue low-dose glimepiride. History of atrial fibrillation Paced rhythm on presentation with mild bradycardia. Nebivolol continue on. Not on anticoagulation secondary to side effects. CKD stage IIIb Stable Creatinine is maintained over 1.4-1.5. Follow-up power washer Dr. Madera.. Acute UTI Not worsening. On home Keflex, continued. DVT prophylaxis SCDs ordered. Discharge medication reconciliation done. Discharge follow-up instructions completed. Discharge process discussed with the patient and all questions were answered to patient's satisfaction. Total time spent, exact 35 minutes on discharge meds reconciliation, examination, coordination of care with nurses and ancillary staff, review of imaging and blood test and discussion with the patient on follow-up instructions. Medications at Discharge Home Medications Oral Appliance #1 ea 03/19/22 latanoprost 0.005 % eye drops 1 drp EACH EYE QHS Check with primary doctor 03/28/22 aspirin 81 mg tablet,delayed release (Adult Low Dose Aspirin) 81 mg PO DAILY antiplatelet 06/19/22 colchicine 0.6 mg tablet 0.6 mg PO .qod PERICARDITS 06/19/22 levothyroxine 125 mcg tablet 125 mcg PO DAILY Check with primary doctor #90 tabs 10/07/22 cephalexin 500 mg capsule 500 mg PO BID UTI 12/01/22 chlorthalidone 25 mg tablet 12.5 mg PO DAILY blood pressure 12/01/22 doxazosin 2 mg tablet 2 mg PO QHS blood pressure 12/01/22 finerenone 10 mg tablet (Kerendia) 10 mg PO DAILY kidneys 12/01/22 glimepiride 2 mg tablet 1 mg PO DAILY blood sugar 12/01/22 inulin 2 gram chewable tablet (Fiber Gummies) 2 g PO BID soft stool 12/01/22 lovastatin 20 mg tablet 20 mg PO QHS cholesterol 12/01/22 nebivolol 10 mg tablet 10 mg PO QHS blood pressure 12/01/22 [id number]-other [id number] oil 350 mg- 400 mg capsule 830 cap PO DAILY supplement 12/01/22 pantoprazole 40 mg tablet,delayed release 40 mg PO DAILY antiacid 12/01/22 amlodipine 10 mg tablet 10 mg PO QHS #30 tabs 12/03/22 losartan 100 mg tablet 100 mg PO QHS #30 tabs 12/03/22 Physical Exam Narrative Physical exam General: Alert, Oriented x3, Cooperative HEENT: Atraumatic, PERRLA, EOMI, Normocephalic Oral: No Gingival or Mucosal Lesions/ Ulcerations Neck: Supple, No JVD, Negative Carotid Bruits Lungs: Air entry diminished in bilateral lung bases. No crepitation/rhonchi Cardiovascular: Regular rate, Regular Rhythm, Normal S1, Normal S2, systolic murmur right second ICS and LLSB Abdomen: Bowel Sounds Present, Soft, Non Tender, Non-Distended : No renal angle tenderness. No suprapubic tenderness. Extremities: Right radial artery cath access site. No hematoma no edema, Capillary Refill Less than 3 Seconds Skin: No rashes, No breakdown Musculoskeletal: No Tenderness to Palpation of Joints or Extremities Neurological: Cranial nerves II-XII grossly intact, DTR 2+/4 and Symmetrical, Neuro grossly intact Psych/Mental Status: Normal Affect, Appropriate. Weight / BMI Weight Weight: 174 lb 2.643 oz Body Mass Index (BMI) 31.8 ABG / Lab / Microbiology Data Result Diagrams: 12/02/22 04:19 12/02/22 04:19 Laboratory: Laboratory Results - last 24 hr 12/02/22 11:09: POC Glucose 48 L 12/02/22 11:34: POC Glucose 67 L 12/02/22 11:46: POC Glucose 134 H 12/02/22 17:13: POC Glucose 306 H 12/03/22 00:19: POC Glucose 227 H 12/03/22 06:09: POC Glucose 180 H Radiography Diagnostic Testing: Radiology Impression Echocardiogram 12/01/22 20:42 Interpretation Summary Mild segmental systolic dysfunction (see wall motion). The estimated ejection fraction is 40 %. Septal motion consistent with IVCD. Mild concentric left ventricular hypertrophy. The left atrium is moderately enlarged. There is mild mitral annular calcification. The mitral valve chordae are thickened and/or calcified. Mild (1+) mitral valve insufficiency. Moderate (2+) tricuspid valve insufficiency. Moderately severe calcific aortic valve stenosis. Trivial pulmonic valve insufficiency. Right ventricular systolic pressure estimated to be 66 mmHg. Severe pulmonary hypertension. Stage 2 diastolic dysfunction. ICD or pacer leads identified within the right atrium ICD or pacer leads identified within the right ventricle. Ordering Physician: Harrison Wright Referring Physician: JORGE TRIANA Performed By: Rajani Garcia RCS Meaningful Use Info Meaningful Use Diagnoses (Choose all that apply): AMI AMI/Post PCI/Angioplasty Aspirin given w/in 24hrs of arrival?: Yes ASA at discharge?: Yes Statins at discharge?: Yes Сергей/ARB at discharge?: Yes Beta Meenu at discharge?: Yes Done w/ Acute OR measure.: Yes Discharge Plan Admission Admit Date/Time: 12/01/22 19:24 Primary Reason for Your Visit: NSTEMI Attending Provider: Lamonte Guevara Primary Care Provider: Jogre Triana Consulting Providers: Brady Frye ; Harrison Wright Discharge Orders/Prescriptions Prescriptions: New amlodipine 10 mg Tablet 10 mg PO QHS Qty: 30 2RF losartan 100 mg Tablet 100 mg PO QHS Qty: 30 0RF Continued (DME) Oral Appliance See Rx Instructions .ROUTE .MEDSUPPLY Qty: 1 0RF Rx Instructions: As directed aspirin [Adult Low Dose Aspirin] 81 mg tablet,delayed release (DR/EC) 81 mg PO DAILY colchicine 0.6 mg tablet 0.6 mg PO .qod latanoprost 0.005 % Drops 1 drp EACH EYE QHS chlorthalidone 25 mg Tablet 12.5 mg PO DAILY nebivolol 10 mg Tablet 10 mg PO QHS [id number]-epa-fish oil 350-400 mg Capsule 830 cap PO DAILY Fiber Gummies 2 gram Tablet,Chewable 2 g PO BID Kerendia 10 mg Tablet 10 mg PO DAILY glimepiride 2 mg tablet 1 mg PO DAILY cephalexin 500 mg capsule 500 mg PO BID Rx Instructions: Started on 11/30/22 pantoprazole 40 mg tablet,delayed release (DR/EC) 40 mg PO DAILY lovastatin 20 mg tablet 20 mg PO QHS doxazosin 2 mg tablet 2 mg PO QHS Rx Instructions: take this at bedtime levothyroxine 125 mcg tablet 125 mcg PO DAILY Qty: 90 0RF Discontinued amlodipine-olmesartan 10-40 mg Tablet 1 tab PO QHS Referrals / Follow Up: Jorge Triana MD [Primary Care Provider] - Jesse Sykes MD [Med Staff - Active Staff] - (as scheduled) Disposition Disposition (needs filled in before D/C Order can be placed): Home, Self Care Charges/Coding Visit Charges Inpatient E&M: 66033 Subs Hosp L3
--- NOTE | 2022-12-03 07:36 | DCINST_ITS ---
Discharge Instructions Diet Discharge Diet: Low fat / Low cholesterol and 2000 mg Sodium Diet Activity Discharge Activity: Return to Normal Activity Weight Bearing Status: Weight bearing as tolerated Dressing / Incision Call your doctor if you observe: Fever of 101 or Higher, Coldness, Increased Pain, Numbness or Tingling, Change in Color, Inability to urinate, Inability to have a bowel movement, Using more than 1 pad per hour, Shortness of breath, Dizziness, Fainting spells, Swelling in the ankles, Chest pain, Prolonged hiccupping, Increased palpitations (irregular heartbeat) and Calf discomfort Follow Up Care When: IN 2 WEEKS Test Results: Test results from this visit will be discussed in further detail at your follow- up appointment, if applicable. Discharge Plan Admission Admit Date/Time: 12/01/22 19:24 Primary Reason for Your Visit: NSTEMI Attending Provider: Lamonte Guevara Primary Care Provider: Chiara Triana Consulting Providers: Brady Frye ; Harrison Wright Discharge Orders/Prescriptions Prescriptions: New amlodipine 10 mg Tablet 10 mg PO QHS Qty: 30 2RF losartan 100 mg Tablet 100 mg PO QHS Qty: 30 0RF Continued (DME) Oral Appliance See Rx Instructions .ROUTE .MEDSUPPLY Qty: 1 0RF Rx Instructions: As directed aspirin [Adult Low Dose Aspirin] 81 mg tablet,delayed release (DR/EC) 81 mg PO DAILY colchicine 0.6 mg tablet 0.6 mg PO .qod latanoprost 0.005 % Drops 1 drp EACH EYE QHS chlorthalidone 25 mg Tablet 12.5 mg PO DAILY nebivolol 10 mg Tablet 10 mg PO QHS ynyfg-[id number]-gbe-epa-fish oil 350-400 mg Capsule 830 cap PO DAILY Fiber Gummies 2 gram Tablet,Chewable 2 g PO BID Kerendia 10 mg Tablet 10 mg PO DAILY glimepiride 2 mg tablet 1 mg PO DAILY cephalexin 500 mg capsule 500 mg PO BID Rx Instructions: Started on 11/30/22 pantoprazole 40 mg tablet,delayed release (DR/EC) 40 mg PO DAILY lovastatin 20 mg tablet 20 mg PO QHS doxazosin 2 mg tablet 2 mg PO QHS Rx Instructions: take this at bedtime levothyroxine 125 mcg tablet 125 mcg PO DAILY Qty: 90 0RF Discontinued amlodipine-olmesartan 10-40 mg Tablet 1 tab PO QHS Referrals / Follow Up: Chiara Triana MD [Primary Care Provider] - Jesse Sykes MD [Med Staff - Active Staff] - (as scheduled) Disposition Disposition (needs filled in before D/C Order can be placed): Home, Self Care
[2022-12-03] MEDS: Chlorthalidone 50 MG Tablet 12.5 MG PO (08:13)
[2022-12-03] MEDS: Pantoprazole Sodium 40 MG Tablet PO (08:14)
[2022-12-03] MEDS: Colchicine 0.6 MG TABLET PO (08:14)
[2022-12-03] MEDS: Aspirin E.C. 81 MG Tablet PO (08:14)
[2022-12-03] MEDS: Cephalexin 500 MG Capsule PO (08:14)
[2022-12-03] MEDS: Omega-3 Acid Ethyl Esters 1 GM Capsule PO (08:14)
[2022-12-03 10:38] VITALS: BP 143/51; PULSE 46; RESP 16; TEMP 36.6; O2SAT 99
--- NOTE | 2022-12-03 11:05 | PHA.DC.MC ---
Pharmacy Service has performed discharge medication reconciliation and counseling for this patient. 1. AMLODIPINE 10MG PO QHS The patient's discharge medication list was reviewed for discrepancies and discrepancies were resolved. Home Medications Oral Appliance #1 ea 03/19/22 latanoprost 0.005 % eye drops 1 drp EACH EYE QHS Check with primary doctor 03/28/22 aspirin 81 mg tablet,delayed release (Adult Low Dose Aspirin) 81 mg PO DAILY antiplatelet 06/19/22 colchicine 0.6 mg tablet 0.6 mg PO .qod PERICARDITS 06/19/22 levothyroxine 125 mcg tablet 125 mcg PO DAILY Check with primary doctor #90 tabs 10/07/22 cephalexin 500 mg capsule 500 mg PO BID UTI 12/01/22 chlorthalidone 25 mg tablet 12.5 mg PO DAILY blood pressure 12/01/22 doxazosin 2 mg tablet 2 mg PO QHS blood pressure 12/01/22 finerenone 10 mg tablet (Kerendia) 10 mg PO DAILY kidneys 12/01/22 glimepiride 2 mg tablet 1 mg PO DAILY blood sugar 12/01/22 inulin 2 gram chewable tablet (Fiber Gummies) 2 g PO BID soft stool 12/01/22 lovastatin 20 mg tablet 20 mg PO QHS cholesterol 12/01/22 nebivolol 10 mg tablet 10 mg PO QHS blood pressure 12/01/22 -oqq-qpe-other adrxs1t-wvjo oil 350 mg- 400 mg capsule 830 cap PO DAILY supplement 12/01/22 pantoprazole 40 mg tablet,delayed release 40 mg PO DAILY antiacid 12/01/22 amlodipine 10 mg tablet 10 mg PO QHS #30 tabs 12/03/22 losartan 100 mg tablet 100 mg PO QHS #30 tabs 12/03/22 The patient was counseled on the following discharge medications and changes in medications for homegoing were reviewed. The Reason for Use, instructions for use, and potential side effects were reviewed for all new medications. The patient's questions regarding all of their medications were answered. The patient was able to verbally demonstrate an understanding of their discharge medications.
== END 2022-12-03 11:14 | disposition home or self-care (01) | DRG 281 ==
LOC: ED 19:33 → PCU 20:12
PROVIDERS: Admitting Provider Hospitalist; Emergency Provider Emergency Medicine; PCP Internal Medicine; Visit Provider Internal Medicine
DX: I21.4 Non-ST elevation (NSTEMI) myocardial infarction (principal); N39.0 Urinary tract infection, site not specified; I31.39 Other pericardial effusion (noninflammatory); E11.22 Type 2 diabetes mellitus with diabetic chronic kidney disease; N18.32 Chronic kidney disease, stage 3b; I48.0 Paroxysmal atrial fibrillation; E78.00 Pure hypercholesterolemia, unspecified; I12.9 Hypertensive chronic kidney disease with stage 1 through stage 4 chronic kidney disease, or unspecified chronic kidney disease; I35.0 Nonrheumatic aortic (valve) stenosis; I25.10 Atherosclerotic heart disease of native coronary artery without angina pectoris; Z95.0 Presence of cardiac pacemaker; Z79.02 Long term (current) use of antithrombotics/antiplatelets; Z79.82 Long term (current) use of aspirin; Z79.84 Long term (current) use of oral hypoglycemic drugs; Z79.891 Long term (current) use of opiate analgesic; Z79.899 Other long term (current) drug therapy
CPT/HCPCS: 36415; 71045; 80048; 80061; 82962; 84484; 85025; 93005; 93306; 93454; 99152; 99153; 99285; J7030; J7050; Q9967; A4216; C1769; C1894; C8929; J2405

== ENCOUNTER → 2023-01-01 | Outpatient (CLI) | payer MEDICARE, BC, SELFPAY ==
--- NOTE | 2023-01-01 10:50 | BI_ITS ---
MAMMOGRAPHY - BILATERAL SCREENING REASON FOR EXAM: Female, 82 years old. Routine annual screening examination. PERTINENT HISTORY: Non-contributory. TECHNIQUE: Digital bilateral breast bridgett (3D mammographic acquisition) in the CC and MLO projections. 2-D mediolateral oblique (MLO) and craniocaudad (CC) views of both breasts were obtained. CAD: Full Field Digital Mammography with Computer Added Detection was performed. COMPARISON: Comparison is made with prior examination dated December 10, 2021. FINDINGS: Breast Composition: There are scattered areas of fibroglandular density. Since prior study, there has been an increase in the rodlike grouping of calcifications in the anterior upper lateral aspect of the right breast. Biopsy recommended. A battery pack from a pacemaker is seen in the left axillary region. No other significant abnormalities are identified. BI/SCRN MAMM (CAD)W/BRIDGETT BILAT IMPRESSION: Increased numbers of rodlike grouping of calcifications in the anterior upper lateral aspect of the right breast. Biopsy recommended. ASSESSMENT CATEGORY: BIRADS Category 4: Suspicious - Biopsy Should Be Considered. A letter regarding these results will be sent to the patient by the facility within 30 days. Approximately 10% of breast cancers are not detected by mammography. A normal mammogram should not delay biopsy of a clinically suspicious abnormality. [id number] Electronically Signed: Soren Cortez MD at 14:00 EDT ,
--- NOTE | 2023-01-01 10:52 | US_ITS ---
INDICATION: UTI EXAMINATION: Ultrasound US Kidney(s) complete (eg, kidneys and bladder) COMPARISON: Abdomen pelvis CT 08/23/2020.. FINDINGS: 78 grayscale ultrasound images of the kidneys and urinary bladder. KIDNEYS: Bilateral kidneys without shadowing nephrolith or hydronephrosis.] Rounded right renal anechoic 2.8 cm lesion with increased through transmission consistent with renal cyst. Similar-appearing left renal 1.4 cm lesion. URINARY BLADDER:?Poorly distended urinary bladder is without obvious abnormality, 43 cc volume. Bilateral ureteral jets are not identified. No significant free fluid. US/Kidney and Bladder IMPRESSION: Bilateral renal cysts. Electronically Signed: Oleg Augustine MD at 6:58 EDT ,
== END | disposition home or self-care (01) ==
PROVIDERS: PCP Internal Medicine; Visit Provider Urology
DX: Z12.31 Encounter for screening mammogram for malignant neoplasm of breast (principal)
CPT/HCPCS: 76770; 77063; 77067

== ENCOUNTER → 2023-01-23 | Outpatient (CLI) | payer MEDICARE, BC, SELFPAY ==
--- NOTE | 2023-01-23 | BRBX_PTH ---
PATIENT: LYNETTE WEBSTER LOC: [facility] U#:[id number] AGE/SX: 83/F ROOM: RE01/23/[address]: Dr. Julieta Johnson MD : 1940 BED: DIS: 01/23/2023 SPEC #: [id number] RECD: 01/23/23 12:51 STATUS: DANISHA MADELINE #: [id number] MADELINE: 01/23/23 00:[address]: Julieta Johnson DEPT: SURGICAL PATHOLOGY RECD BY: Paul Connors ENTERED: 01/23/23 12:51 SP TYPE: BREAST BX OTHR DR: Dr. Chiara Triana MD Tissues: Right breast, NOS Procedures: Surgery Specimen Level IV HEADER OPERATION: Right breast calcifications PRE-OP DIAGNOSIS: Right breast calcifications TISSUE SUBMITTED: Right breast core tissue ISCHEMIC TIME: 1 minute FIXATION TIME: 7.5 hours MICROSCOPIC DIAGNOSIS Right breast, core biopsy: Collagenized stroma with involutional change. Rare polarizable crystalline debris. No evidence of malignancy. AM:abena 01/24/2023 MICROSCOPIC DESCRIPTION Slides are reviewed. GROSS DESCRIPTION Received in fixative is one container labeled with the patient's name and designated right breast. The specimen consists of multiple elongated fragments of pickard-yellow fibroadipose tissue that in aggregate measure 1.5 x 1.5 x 0.3 cm. The entire specimen is submitted in one cassette. / SJ:abena 01/23/2023 TC:5 CPT: 79047
--- NOTE | 2023-01-23 12:19 | PCM.OPRPT ---
Report of Operation Date of Procedure: 01/23/23 Pre-Operative Diagnosis: right breast microcalcification Post-Operative Diagnosis: same Surgery/Procedure Performed:: stereotactic guided right breast biopsy Surgeon: Julieta Johnson Type of Anesthesia: Local Specimen's removed: right breast microcalcifications Estimated Blood Loss (mL): < 10 cc Description of Procedure: Procedure: Right stereotactic core biopsy Indications: 83year-old female with microcalcifications in the upper anterior lateral of the right breast. Risk benefits were discussed the patient and she elected to proceed with stereotactic core biopsy with clip placement Description of procedure: Patient was brought into the mammography suite and laid prone on the stereotactic table. A timeout was completed verifying correct patient, procedure, site, specially, prior to beginning procedure. The right breast was prepped and draped in usual sterile fashion and using local anesthesia was obtained with 1% lidocaine with epi. Patient's right breast was positioned and placed into compression. Initial film showed calcifications are in the center of the compression paddle. 15? views were then taken. The calcifications were localized. The left breast was prepped draped in usual sterile fashion. An 8-gauge mammotome was set up according to the digital coordinates. The tract of the mammotome was anesthetized with local anesthesia and an incision was made with the 11 blade scalpel at the entry site. The mammotome was advanced to the prefire state. Pre-prior films were checked and verified. The mammotome was fired. Post fire films were also checked and verified. Biopsies were taken from 9:00 to 2:00. The specimen was x-rayed and a good representation of the calcifications were within the specimen. Mammotome clip was placed at the 12 o'clock position. The mammotome was removed from the breast. An additional films were taken which showed all calcifications were removed and a clip was in place. Pressure was held for hemostasis. Once hemostasis was assured the wound was dressed with Steri-Strips and OpSite. The patient tolerated the procedure well and was discharged from the mammography suite good condition. Complications none
== END | disposition home or self-care (01) ==
LOC: BIRAD 10:25
PROVIDERS: PCP Internal Medicine; Referring Provider Surgery; Visit Provider Surgery
DX: R92.8 Other abnormal and inconclusive findings on diagnostic imaging of breast (principal)
CPT/HCPCS: 19082; 19081; 88305; J7050

== ENCOUNTER → 2023-02-05 | Outpatient (CLI) | payer MEDICARE, BC, SELFPAY ==
[2023-02-05 12:16] LABS: Albumin, Serum 3.6 g/dL (3.2-5.0); BUN 72 mg/dL (7-18); BUN/Creat Ratio 32.4 RATIO (10-20); Calcium,Total 9.7 mg/dL (8.5-10.1); Chloride 99 mmol/L (98-107); Creatinine, Serum 2.22 mg/dL (0.55-1.02); EST Glomerular Filtration Rate 23 mL/min (>60); Est Glom Filt Rate - Afr Amer 27 mL/min (>60); Glucose 143 mg/dL (74-106); Phosphorus 3.3 mg/dL (2.5-4.9); Potassium 4.4 mmol/L (3.5-5.1); Sodium Level 132 mmol/L (136-145)
[2023-02-12 18:07] LABS: ALDOSTERONE/RENIN RATIO 1.3 (0.0-30.0); Aldosterone, Serum 5.4 ng/dL (0.0-30.0); Renin, Plasma 4.209 ng/mL/hr (0.167-5.380)
== END | disposition home or self-care (01) ==
PROVIDERS: PCP Internal Medicine; Visit Provider Internal Medicine Nephrology
DX: E11.22 Type 2 diabetes mellitus with diabetic chronic kidney disease (principal); N18.32 Chronic kidney disease, stage 3b
CPT/HCPCS: 36415; 80069; 82088; 84244

== ENCOUNTER → 2023-03-25 | Outpatient (CLI) | payer MEDICARE, BC, SELFPAY | END | disposition home or self-care (01) | LOC: SL 09:40 | PROVIDERS: PCP Internal Medicine; Visit Provider Nurse Practitioner Acute Care | DX: Z46.89 Encounter for fitting and adjustment of other specified devices (principal) ==

== ENCOUNTER → 2023-04-03 | Outpatient (CLI) | payer MEDICARE, BC, SELFPAY ==
[2023-04-03 12:34] LABS: Albumin, Serum 3.4 g/dL (3.2-5.0); BUN 40 mg/dL (7-18); BUN/Creat Ratio 26.1 RATIO (10-20); Calcium,Total 9.8 mg/dL (8.5-10.1); Chloride 110 mmol/L (98-107); Creatinine, Serum 1.53 mg/dL (0.55-1.02); EST Glomerular Filtration Rate 35 mL/min (>60); Est Glom Filt Rate - Afr Amer 42 mL/min (>60); Glucose 123 mg/dL (74-106); Phosphorus 3.2 mg/dL (2.5-4.9); Potassium 4.9 mmol/L (3.5-5.1); Sodium Level 139 mmol/L (136-145)
== END | disposition home or self-care (01) ==
PROVIDERS: PCP Internal Medicine; Referring Provider Internal Medicine Nephrology; Visit Provider Internal Medicine Nephrology
DX: I12.9 Hypertensive chronic kidney disease with stage 1 through stage 4 chronic kidney disease, or unspecified chronic kidney disease (principal); N18.32 Chronic kidney disease, stage 3b
CPT/HCPCS: 36415; 80069; 82533

== ENCOUNTER → 2023-04-14 | Outpatient (CLI) | payer MEDICARE, BC, SELFPAY ==
[2023-04-14 08:35] LABS: Hematocrit 37.3 % (37-47); Mean Corp Hgb Conc 32.2 g/dL (32-36); Mean Corpuscular Hgb 31.2 pg (27.0-32.0); Mean Corpuscular Volume 96.9 fL (81-99); Mean Platelet Vol. 9.9 fl (6.2-12.0); Platelet Count 224 K/mm3 (150-450); RBC Distribution Width CV 13.9 % (11.6-14.6); RBC Distribution Width SD 49.7 fl (35.1-43.9); Red Blood Count 3.85 M/mm3 (4.2-5.4); White Blood Count 5.5 K/mm3 (4.4-11.0)
[2023-04-14 08:38] LABS: Protein, Urine (Random) 53.6 mg/dL (<11.9); Protein:Creat Ratio 501 mg/g CRE (0-200)
== END | disposition home or self-care (01) ==
PROVIDERS: PCP Internal Medicine; Referring Provider Internal Medicine Nephrology; Visit Provider Internal Medicine Nephrology
DX: E11.22 Type 2 diabetes mellitus with diabetic chronic kidney disease (principal); N18.32 Chronic kidney disease, stage 3b; I12.9 Hypertensive chronic kidney disease with stage 1 through stage 4 chronic kidney disease, or unspecified chronic kidney disease
CPT/HCPCS: 36415; 82533; 82570; 84156; 85027

== ENCOUNTER → 2023-04-21 | Outpatient (CLI) | payer MEDICARE, BC, SELFPAY ==
[2023-04-21 11:40] LABS: Mucous, Urine 0 SEEN /hpf (<or=2+)
[2023-04-21 13:08] LABS: Color, Urine Yellow (Yellow); Glucose, Dipstick Normal (Normal); Ketone-Dipstick Negative (Negative); Leukocyte Esterase-Dipstick 500 /ul (Negative); Nitrite-Dipstick Negative (Negative); Occult Blood-Urine 25 /ul (Negative); Protein-Dipstick 30 mg/dl (Negative); Urine Bilirubin Dipstick Negative (Negative); Urine Clarity Cloudy (Clear); Urine Urobilinogen Normal (Normal); Urine pH 6.5 (5.0 - 8.0)
[2023-04-21 13:19] LABS: Bacteria 2+ /hpf (None Seen); Red Blood Cells-Urine 0-5 SEEN /hpf (0-5); Squamous Epithelial Cells - UA 0-5 SEEN /hpf (5-10); White Blood Cells >100 SEEN /hpf (0-5)
== END | disposition home or self-care (01) ==
LOC: LABSPEC 11:35
PROVIDERS: PCP Internal Medicine; Referring Provider Internal Medicine; Visit Provider Internal Medicine
DX: N39.0 Urinary tract infection, site not specified (principal)
CPT/HCPCS: 81001; 87086; 87088; 87186

== ENCOUNTER → 2023-07-30 | Outpatient (CLI) | payer MEDICARE, BC, SELFPAY ==
[2023-07-30 13:56] LABS: Absolute Lymphocyte Count 1.47 X10^3/uL (0.83-4.51); Absolute Neutrophil Count 4.5 X10^3/uL (2.0-7.7); Basophil# 0.03 X10^3/uL; Basophil% 0.5 % (0-1); Eosinophil# 0.12 X10^3/uL; Eosinophils% 1.8 % (0-5); Hematocrit 38.2 % (37-47); Hemoglobin 11.8 g/dL (12.0-15.0); Lymphocyte # 1.47 X10^3/ul (0.83-4.51); Lymphocyte % 22.1 % (19-41); Mean Corp Hgb Conc 30.9 g/dL (32-36); Mean Corpuscular Volume 100.3 fL (81-99); Mean Platelet Vol. 9.7 fl (6.2-12.0); Monocyte# 0.49 X10^3/uL; Monocyte% 7.4 % (0-10); NRBC Flagged by Analyzer 0 % (0-5); Neutrophil % 67.7 % (47-70); Platelet Count 244 K/mm3 (150-450); RBC Distribution Width CV 13.4 % (11.6-14.6); RBC Distribution Width SD 49.9 fl (35.1-43.9); Red Blood Count 3.81 M/mm3 (4.2-5.4); White Blood Count 6.6 K/mm3 (4.4-11.0)
[2023-07-30 14:00] LABS: Erythrocyte Sedimentation Rate 6 mm/hr (0-30)
[2023-07-30 14:06] LABS: CRP < 2.90 mg/L (0.0-3.0)
== END | disposition home or self-care (01) ==
LOC: LAB 12:21
PROVIDERS: PCP Internal Medicine; Referring Provider Specialist; Visit Provider Specialist
DX: Z96.652 Presence of left artificial knee joint (principal)
CPT/HCPCS: 36415; 85025; 85652; 86140

== ENCOUNTER → 2023-08-14 | Outpatient (CLI) | payer MEDICARE, BC, SELFPAY ==
[2023-08-14 12:40] LABS: Protein:Creat Ratio 329 mg/g CRE (0-200)
[2023-08-14 12:44] LABS: Albumin, Serum 3.8 g/dL (3.2-5.0); BUN 41 mg/dL (7-18); BUN/Creat Ratio 28.7 RATIO (10-20); Calcium,Total 9.5 mg/dL (8.5-10.1); Chloride 112 mmol/L (98-107); Creatinine, Serum 1.43 mg/dL (0.55-1.02); EST Glomerular Filtration Rate 37 mL/min (>60); Est Glom Filt Rate - Afr Amer 45 mL/min (>60); Glucose 182 mg/dL (74-106); Phosphorus 2.9 mg/dL (2.5-4.9); Potassium 4.5 mmol/L (3.5-5.1); Sodium Level 142 mmol/L (136-145)
[2023-08-14 12:45] LABS: PTHIN 119.5 pg/mL (18.4-80.1)
== END | disposition home or self-care (01) ==
LOC: LAB 12:00
PROVIDERS: PCP Internal Medicine; Referring Provider Internal Medicine Nephrology; Visit Provider Internal Medicine Nephrology
DX: E11.22 Type 2 diabetes mellitus with diabetic chronic kidney disease (principal); N18.32 Chronic kidney disease, stage 3b
CPT/HCPCS: 36415; 80069; 82570; 83970; 84156

== ENCOUNTER 2023-09-25 14:30 | Outpatient (RCR) | payer MEDICARE, BC, SELFPAY ==
--- NOTE | 2023-05-05 14:46 | HP.PTEVAL ---
Patient's Visit Information Visit Information Visit Information: LYNETTE WEBSTER is a 83 year old F referred to Physical Therapy by Dr. Kevan Rodrigez MD with a diagnosis of L TKR and revision and pain in L knee. Date of Evaluation: 05/05/23 Physical Therapist: SAARBJIT Elmore Visit Plan Frequency: 2x /Week Duration: 2 Months Plan: 2X/ week for 8 weeks for AT for core stability, L hip and knee strength (including ascending stairs), gait training with HEP Subjective Subjective: She had her L TKR like 4 years ago and then she had a revision last February and it is just as bad if not worse. She has pain right now sitting in a chair. Standing hurts her back too. She has night pain and the last few nights she has a hard time finding a place where it does not hurt. She has no N&T. She describes the pain as achy and sharp. She feels like the L leg is weak. She is able to go up and down the steps but she has railings on one side and she ends up pulling herself up. She does not use a walk or a cane. Dr Rodrigez wants her to go back to using a cane. She has fallen twice 2 years ago. thinks that the knee cap is a little lateral and probable scar tissue. She is not able to walk too far and then it starts to hurt. She can not walk on grass at all cause it is too uneven. Pain L knee pain: Pain Intensity (Out of 10): 8 Objective Objective: Gait: walks with slow pace with decrease stride length (Each step does not clear the other foot) and decrease heel to toe gait pattern and flexed trunk, WBOS L knee AROM: -3 to 110 degrees R knee AROM: 0-110 LE MMT: R hip flex 14.5 and L 9.7 R knee ext 17.6 and L 10.6 R knee flex 13.4 and L 8.9 Standing heel and toe raises: able to heel and toe raise with UE assist Stairs: Walks up the stairs using two hand rails and really using her UE to pull herself up the step on the L. Descending the steps she does a quick bend and gets off the L knee fast due to decrease ROM and discomfort, Balance/Special Test Scores Lower Extremity Functional Score: 21 Goals Goal 1:: I HEP Goal Time Frame: 6-8 Weeks Goal 2:: Increase L knee AROM (at the time of the eval L knee AROM: -3 to 110 degrees R knee AROM: 0-110) Goal Time Frame: 6-8 Weeks Goal 3:: Increase L LE strength (at the time of the eval: LE MMT: R hip flex 14.5 and L 9.7 R knee ext 17.6 and L 10.6 R knee flex 13.4 and L 8.9). Goal Time Frame: 6-8 Weeks Goal 4:: Be able to go up and down stairs recip without having to use the UE to pull self up on the L Goal Time Frame: 6-8 Weeks Goal 5:: Be able to walk with increase stride length and more upright posture Goal Time Frame: 6-8 Weeks Rehabilitation Potential Rehabilitation Potential: Good Anticipated Interventions Patient/Client Instruction: Educate patient on: Condition and Plan of Care For the Purpose of:: To decrease pain, To decrease swelling/inflammation, To increase ROM, To improve nutrient delivery to tissue, To improve muscle performance and motor function, To improve ability to perform ADL's, To increase tolerance to activity/condition/position, To improve performance and independence with ADL's, To improve gait and locomotor functions, To improve health of tissue, To decrease soft tissue restriction, To increase flexibility/ROM, To improve endurance, To improve balance and To improve safety with gait Therapeutic Exercise to Include: Strength training, Endurance training, Balance training, Gait and locomotor training, Neuromotor development, Active ROM and Dynamic Lumbar Stabilization For the Purpose of:: To decrease pain, To decrease swelling/inflammation, To increase ROM, To improve nutrient delivery to tissue, To improve muscle performance and motor function, To improve ability to perform ADL's, To increase tolerance to activity/condition/position, To improve performance and independence with ADL's, To decrease level of supervision to perform tasks, To improve ability of physical actions for home/community/work/leisure, To improve gait and locomotor functions, To improve health of tissue, To decrease soft tissue restriction, To increase flexibility/ROM, To improve balance and To improve safety with gait Functional Training to Include: Gait training For the Purpose of:: To improve gait and locomotor functions and To improve safety with gait Text: Thank you for the opportunity to evaluate your patient. For Medicare and Medicare HMO plans, please review the plan of care and approve it. It will need to be FAXED BACK to us at [phone] for Medicare purposes. For Medicare only, by signing this I certify the plan of care. Please let me know if there are questions or concerns regarding this plan of care. Physician Signature: Date:
--- NOTE | 2023-06-03 14:02 | HP.PTREVAL ---
Re-Evaluation Intro: Dr. Kevan Rodrigez MD, It has been my pleasure to treat LYNETTE WEBSTER over the last 8 visits for L TKR and revision and pain in L knee. Please see the progress note below for an update on the physical therapy plan of care! Subjective Subjective: Pt did x-rays and he says that her knee cap is going over to the L. She feels that some days she is doing better and other days not so much. She is struggling getting into the first step into her home. She feels that her L leg is weak. Objective Objective/Function: Gait: walks with wider LARRY and shorter stride length Stairs: Up and down recip with good amount of UE support needed. R hip flex 14.5 and L 9.7 R knee ext 19.7and L 17.7 R knee flex 14.7and L 11 L knee AROM: -3 to 110 degrees (same) Plan Plan Plan: Continue to work on strength of B hips and knees and work on functional activities such as stairs. Balance/Gait/Functional tests Balance/Special Test Scores Lower Extremity Functional Score: 30 Goals Goals Goal 1:: I HEP Goal Time Frame: 6-8 Weeks Goal 2:: Increase L knee AROM (at the time of the eval L knee AROM: -3 to 110 degrees R knee AROM: 0-110) Goal Time Frame: 6-8 Weeks Goal 3:: Increase L LE strength (at the time of the eval: LE MMT: R hip flex 14.5 and L 9.7 R knee ext 17.6 and L 10.6 R knee flex 13.4 and L 8.9) Goal Time Frame: 6-8 Weeks Goal Progress: Progressing Goal 4:: Be able to go up and down stairs recip without having to use the UE to pull self up on the L Goal Time Frame: 6-8 Weeks Goal Progress: Progressing Goal 5:: Be able to walk with increase stride length and more upright posture Goal Time Frame: 6-8 Weeks Anticipated Interventions Anticipated Interventions Patient/Client Instruction: Educate patient on: Condition and Plan of Care For the Purpose of:: To decrease pain, To decrease swelling/inflammation, To increase ROM, To improve nutrient delivery to tissue, To improve muscle performance and motor function, To improve ability to perform ADL's, To increase tolerance to activity/condition/position, To improve performance and independence with ADL's, To improve gait and locomotor functions, To improve health of tissue, To decrease soft tissue restriction, To increase flexibility/ROM, To improve endurance, To improve balance and To improve safety with gait Therapeutic Exercise to Include: Strength training, Endurance training, Balance training, Gait and locomotor training, Neuromotor development, Active ROM and Dynamic Lumbar Stabilization For the Purpose of:: To decrease pain, To decrease swelling/inflammation, To increase ROM, To improve nutrient delivery to tissue, To improve muscle performance and motor function, To improve ability to perform ADL's, To increase tolerance to activity/condition/position, To improve performance and independence with ADL's, To decrease level of supervision to perform tasks, To improve ability of physical actions for home/community/work/leisure, To improve gait and locomotor functions, To improve health of tissue, To decrease soft tissue restriction, To increase flexibility/ROM, To improve balance and To improve safety with gait Functional Training to Include: Gait training For the Purpose of:: To improve gait and locomotor functions and To improve safety with gait Re-Evaluation Ending Re-evaluation ending: Please do not hesitate to contact me at [phone] by phone or if you have questions or concerns regarding this new plan of care! Sincerely, Jocelyn Verde MPT
--- NOTE | 2023-07-02 13:52 | HP.PTREVAL_ITS ---
Re-Evaluation Intro: Dr. Kevan Rodrigez MD, It has been my pleasure to treat LYNETTE WEBSTER over the last 16 visits for L TKR and revision and pain in L knee. Please see the progress note below for an update on the physical therapy plan of care! Subjective Subjective: Pt feels that she is a little better. 25-30% better. She thinks that she can walk a little better. She still can not do the steps at her house with her L leg. Her L leg feels so weak. She finds herself pulling herself up. Coming down she can do better. She is doing some exercises at home. Pt would like to continue and try some land based therapy Objective Objective/Function: Increase L knee AROM (at the time of the eval L knee AROM: -3 to 110 degrees R knee AROM: 0-110) LE MMT: R hip flex 14.5 and L 10.5 R knee ext 24.6 and L 17.1 R knee flex 16 and L 9.6 Stairs: Plan Plan Plan: 2X/ week for 4 weeks for land based knee strength (hip and some core would be good). Pt is willing to try some machines as well Balance/Gait/Functional tests Balance/Special Test Scores Lower Extremity Functional Score: 46 Goals Goals Goal 1:: I HEP Goal Time Frame: 6-8 Weeks Goal Progress: Progressing Goal 2:: Increase L knee AROM (at the time of the eval L knee AROM: -3 to 110 degrees R knee AROM: 0-110) Goal Time Frame: 6-8 Weeks Goal 3:: Increase L LE strength (at the time of the eval: LE MMT: R hip flex 14.5 and L 9.7 R knee ext 17.6 and L 10.6 R knee flex 13.4 and L 8.9 Goal Time Frame: 6-8 Weeks Goal Progress: Progressing Goal 4:: Be able to go up and down stairs recip without having to use the UE to pull self up on the L Goal Time Frame: 6-8 Weeks Goal Progress: Progressing Goal 5:: Be able to walk with increase stride length and more upright posture Goal Time Frame: 6-8 Weeks Anticipated Interventions Anticipated Interventions Patient/Client Instruction: Educate patient on: Condition and Plan of Care For the Purpose of:: To decrease pain, To decrease swelling/inflammation, To increase ROM, To improve nutrient delivery to tissue, To improve muscle performance and motor function, To improve ability to perform ADL's, To increase tolerance to activity/condition/position, To improve performance and in dependence with ADL's, To improve gait and locomotor functions, To improve health of tissue, To decrease soft tissue restriction, To increase flexibility/ROM, To improve endurance, To improve balance and To improve safety with gait Therapeutic Exercise to Include: Strength training, Endurance training, Balance training, Gait and locomotor training, Neuromotor development, Active ROM and Dynamic Lumbar Stabilization For the Purpose of:: To decrease pain, To decrease swelling/inflammation, To increase ROM, To improve nutrient delivery to tissue, To improve muscle performance and motor function, To improve ability to perform ADL's, To increase tolerance to activity/condition/position, To improve performance and independence with ADL's, To decrease level of supervision to perform tasks, To improve ability of physical actions for home/community/work/leisure, To improve gait and locomotor functions, To improve health of tissue, To decrease soft tissue restriction, To increase flexibility/ROM, To improve balance and To improve safety with gait Functional Training to Include: Gait training For the Purpose of:: To improve gait and locomotor functions and To improve safety with gait Re-Evaluation Ending Re-evaluation ending: Please do not hesitate to contact me at [phone] by phone or if you have questions or concerns regarding this new plan of care! Sincerely, SARABJIT Elmore
--- NOTE | 2023-08-05 13:48 | HP.PTREVAL_ITS ---
Re-Evaluation Intro: Dr. Kevan Rodrigez MD, It has been my pleasure to treat LYNETTE WEBSTER over the last 25 visits for L TKR and revision and pain in L knee. Please see the progress note below for an update on the physical therapy plan of care! Subjective Subjective: Pt reports that after she got some MT and stretching to the back of the leg she was able to walk out that day of the clinic and it would last about an hour at the most. The pool therapy did not help much. She feels that her L leg gets tight a lot. Pt reports that he walking is improving somewhat and stairs is improving some. Objective Objective/Function: LE MMT: R hip flex 14.5 and L 9.9 R knee ext 20.8 and L 19 R knee flex 13.4 and L 11.1 L knee AROM: -3 to 110 degrees.. no improvement Plan Plan Plan: Try and additional 2X/ week for 4 weeks to to see if can improve pain, ROM, strength, and gait. If no improvement seen pt to do I HEP and RTD. Balance/Gait/Functional tests Balance/Special Test Scores Lower Extremity Functional Score: 46 Goals Goals Goal 1:: I HEP Goal Time Frame: 6-8 Weeks Goal Progress: Progressing Goal 2:: Increase L knee AROM (at the time of the eval L knee AROM: -3 to 110 degrees R knee AROM: 0-110) Goal Time Frame: 6-8 Weeks Goal 3:: Increase L LE strength (at the time of the eval: LE MMT: R hip flex 14.5 and L 9.7 R knee ext 17.6 and L 10.6 R knee flex 13.4 and L 8.9 Goal Time Frame: 6-8 Weeks Goal Progress: Progressing Goal 4:: Be able to go up and down stairs recip without having to use the UE to pull self up on the L Goal Time Frame: 6-8 Weeks Goal Progress: Progressing Goal 5:: Be able to walk with increase stride length and more upright posture Goal Time Frame: 6-8 Weeks Goal Progress: Progressing Anticipated Interventions Anticipated Interventions Patient/Client Instruction: Educate patient on: Condition and Plan of Care For the Purpose of:: To decrease pain, To decrease swelling/inflammation, To increase ROM, To improve nutrient delivery to tissue, To improve muscle performance and motor function, To improve ability to perform ADL's, To increase tolerance to activity/condition/position, To improve performance and independence with ADL's, To improve gait and locomotor functions, To improve health of tissue, To decrease soft tissue restriction, To increase flexibility/ROM, To improve endurance, To improve balance and To improve safety with gait Therapeutic Exercise to Include: Strength training, Endurance training, Balance training, Gait and locomotor training, Neuromotor development, Active ROM and Dynamic Lumbar Stabilization For the Purpose of:: To decrease pain, To decrease swelling/inflammation, To increase ROM, To improve nutrient delivery to tissue, To improve muscle p erformance and motor function, To improve ability to perform ADL's, To increase tolerance to activity/condition/position, To improve performance and independence with ADL's, To decrease level of supervision to perform tasks, To improve ability of physical actions for home/community/work/leisure, To improve gait and locomotor functions, To improve health of tissue, To decrease soft tissue restriction, To increase flexibility/ROM, To improve balance and To improve safety with gait Functional Training to Include: Gait training For the Purpose of:: To improve gait and locomotor functions and To improve safety with gait Re-Evaluation Ending Re-evaluation ending: Please do not hesitate to contact me at [phone] by phone or if you have questions or concerns regarding this new plan of care! Sincerely, SARABJIT Elmore
--- NOTE | 2023-09-03 13:57 | HP.PTREVAL ---
Re-Evaluation Intro: Dr. Kevan Rodrigez MD, It has been my pleasure to treat LYNETTE WEBSTER over the last 34 visits for L TKR and revision and pain in L knee. Please see the progress note below for an update on the physical therapy plan of care! Subjective Subjective: Pt feels that the stretching has helped the most and her pain level is down. She is still getting a tight feeling in her L knee when she sits for awhile or riding in the car to here. Pt is still doing exercises at home also 2x/day. Pt still wants to come in for more therapy for more stretching. Objective Objective/Function: Subjective pain is much better as well. LE MMT: R hip flex 14.5 and L 9.7 R knee ext 25.1 and L 24.1 R knee flex 13.4 and L 8.9 L knee AROM: -2 to 110 degrees R knee AROM: 0-112 Pt walking much better Plan Plan Plan: Try and additional 2X/ week for 3 weeks to to see if can improve pain, ROM, strength, and gait then HEP at that point. Balance/Gait/Functional tests Balance/Special Test Scores Lower Extremity Functional Score: 43 Goals Goals Goal 1:: I HEP Goal Time Frame: 6-8 Weeks Goal Progress: Goal Met Goal 2:: Increase L knee AROM (at the time of the eval L knee AROM: -3 to 110 degrees R knee AROM: 0-110) Goal Time Frame: 6-8 Weeks Goal Progress: Progressing Goal 3:: Increase L LE strength (at the time of the eval: LE MMT: R hip flex 14.5 and L 9.7 R knee ext 17.6 and L 10.6 R knee flex 13.4 and L 8.9 Goal Time Frame: 6-8 Weeks Goal Progress: Progressing Goal 4:: Be able to go up and down stairs recip without having to use the UE to pull self up on the L Goal Time Frame: 6-8 Weeks Goal Progress: Progressing Goal 5:: Be able to walk with increase stride length and more upright posture Goal Time Frame: 6-8 Weeks Goal Progress: Progressing Anticipated Interventions Anticipated Interventions Patient/Client Instruction: Educate patient on: Condition and Plan of Care For the Purpose of:: To decrease pain, To decrease swelling/inflammation, To increase ROM, To improve nutrient delivery to tissue, To improve muscle performance and motor function, To improve ability to perform ADL's, To increase tolerance to activity/condition/position, To improve performance and independence with ADL's, To improve gait and locomotor functions, To improve health of tissue, To decrease soft tissue restriction, To increase flexibility/ROM, To improve endurance, To improve balance and To improve safety with gait Therapeutic Exercise to Include: Strength training, Endurance training, Balance training, Gait and locomotor training, Neuromotor development, Active ROM and Dynamic Lumbar Stabilization For the Purpose of:: To decrease pain, To decrease swelling/inflammation, To increase ROM, To improve nutrient delivery to tissue, To improve muscle performance and motor function, To improve ability to perform ADL's, To increase tolerance to activity/condition/position, To improve performance and independence with ADL's, To decrease level of supervision to perform tasks, To improve ability of physical actions for home/community/work/leisure, To improve gait and locomotor functions, To improve health of tissue, To decrease soft tissue restriction, To increase flexibility/ROM, To improve balance and To improve safety with gait Functional Training to Include: Gait training For the Purpose of:: To improve gait and locomotor functions and To improve safety with gait Re-Evaluation Ending Re-evaluation ending: Please do not hesitate to contact me at [phone] by phone or if you have questions or concerns regarding this new plan of care! Sincerely, Jocelyn Verde MPT
--- NOTE | 2023-09-25 15:04 | HP.PTDCSUM ---
Discharge Summary D/C summary: It has been my pleasure to treat LYNETTE WEBSTER referred by Dr. Kevan Rodrigez MD, with the diagnosis of L TKR and revision and pain in L knee for a total of 40 visit(s). Discharge Date: 09/25/23 Please see the following information for a summary of their discharge status. Subjective Subjective: Pt reports that some of her swelling is down in her feet and she can get her Haydudes back on. She is still a little SOB but no pains and she sees her heart Dr next week. She does not feel that she needs to move her Dr appt up. She reports that she also has a little stuffy nose. Pain L knee pain: Pain Intensity (Out of 10): 3 Overall Improvement % Improvement: 80 Objective Objective/Function: LE MMT: R hip flex 14.5 and L 9.7 R knee ext 20.9 and L 22.2 R knee flex 15.8 and L 13.4 ROM remains the same Goals Goal 1:: I HEP Goal Progress: Goal Met Goal 2:: Increase L knee AROM (at the time of the eval L knee AROM: -3 to 110 degrees R knee AROM: 0-110) Goal Progress: Progressing Goal 3:: Increase L LE strength (at the time of the eval: LE MMT: R hip flex 14.5 and L 9.7 R knee ext 17.6 and L 10.6 R knee flex 13.4 and L 8.9 Goal Progress: Progressing Goal 4:: Be able to go up and down stairs recip without having to use the UE to pull self up on the L Goal Progress: Progressing Goal 5:: Be able to walk with increase stride length and more upright posture Goal Progress: Progressing Plan Plan: DC PT to HEP D/C Information Discharge Comments: DC PT to HEP d/c sentence: If there are questions or concerns regarding this patient's physical therapy, please feel free to call me at [phone]. Thank you for the referral of this patient. Sincerely, Jocelyn Verde, MPT Balance/Gait/Functional tests Balance/Special Test Scores Lower Extremity Functional Score: 35 Improvement % Improvement: 80
== END 2023-09-25 17:09 | disposition home or self-care (01) ==
LOC: PT 14:30
PROVIDERS: PCP Internal Medicine; Referring Provider Specialist; Visit Provider Specialist
DX: T84.82XD Fibrosis due to internal orthopedic prosthetic devices, implants and grafts, subsequent encounter (principal); M25.562 Pain in left knee; Z96.652 Presence of left artificial knee joint
CPT/HCPCS: 97110; 97113; 97140; 97161; 97530

== ENCOUNTER → 2023-10-21 | Outpatient (CLI) | payer OTHER, SELFPAY ==
[2023-10-21 16:23] LABS: Hemoglobin A1c 6.1 % (3.8-5.6)
[2023-10-21 16:57] LABS: Cholesterol 144 mg/dL (200); High Density Lipoprotein 66 mg/dL; Thyroid Stim Hormone (TSH) 1.94 uIU/mL (0.358-3.74); Triglycerides 56 mg/dL; Very Low Density Lipoprotein 11 mg/dL (5-40)
== END | disposition home or self-care (01) ==
LOC: BIMLAB 11:39
PROVIDERS: PCP Internal Medicine; Visit Provider Internal Medicine
DX: I10 Essential (primary) hypertension (principal); E11.9 Type 2 diabetes mellitus without complications
CPT/HCPCS: 36415; 80061; 83036; 84443

== ENCOUNTER 2023-11-21 15:29 | Emergency (ER) | payer MEDICARE, SELFPAY ==
[2023-11-21 15:35] VITALS: BP 159/66; PULSE 60; RESP 16; TEMP 35.6; O2SAT 100
[2023-11-21 15:38] VITALS: BP 159/66; PULSE 60; RESP 16; TEMP 35.6; O2SAT 100
--- NOTE | 2023-11-21 16:50 | EDS_ITS ---
HPI History of Present Illness Chief Complaint: General Illness Informant: patient Onset/Context/Timing Onset: Days Context: Gradual Onset Timing: Continuous Quality: Dizzy, weak, fatigued Location: Generalized Worsened by: Nothing Relieved by: Nothing Narrative Narrative: Patient presents with fatigue, near syncope, and shortness of breath that has been getting progressively worse over the past few days. Patient states she was recently at the [facility] 2 days ago for complete battery of tests. Patient does not have the results of that. Patient admits to some subjective chills. Patient admits to some pain across her neck and shoulders. Patient admits to some nausea but denies any vomiting. Patient states she feels short of breath. Patient also states she had a recent steroid injection in her knee. Patient is concerned that this could be coming from her heart valve. [facility] Medical History Abnormal cardiac enzyme level Anxiety Aortic stenosis Atrial fibrillation Bradycardia Breast calcification, right Carotid bruit Chronic pericarditis with effusion Chronic renal failure, stage 3a Diabetes Diabetes mellitus, type 2 Essential hypertension Glaucoma Gout Hemoptysis HLD (hyperlipidemia) Hypersomnolence Hyperthyroidism Hypothyroidism Kidney disease Left bundle branch block (LBBB) LVH (left ventricular hypertrophy) Musculoskeletal back pain Nonrheumatic aortic valve stenosis CL[place] (obstructive sleep apnea) Osteoarthritis PAF (paroxysmal atrial fibrillation) Pericardial effusion (08/23/20) Physical debility Secondary pulmonary arterial hypertension Sick sinus syndrome Sleep apnea Home Medications Oral Appliance #1 ea 03/19/22 [Rx Last Taken Unknown] latanoprost 0.005 % eye drops 1 drp EACH EYE QHS Check with primary doctor 03/28/22 [History Last Taken Unknown] gvawv9-hil-uyy-other imjhu1k-bemu oil 350 mg- 400 mg capsule 830 cap PO DAILY supplement 12/01/22 [History Last Taken Unknown] cholecalciferol (vitamin D3) 125 mcg (5,000 unit) tablet 125 mcg PO DAILY #30 tabs 12/11/22 [Rx Last Taken Unknown] cinnamon bark 500 mg capsule (Cinnamon) 2,000 mg (4 x 500 mg) PO DAILY #120 caps 12/12/22 [Rx Last Taken Unknown] ascorbic acid (vitamin C) 500 mg capsule mg PO DAILY 02/07/23 [History Last Taken Unknown] aspirin 81 mg tablet,delayed release (Adult Aspirin Regimen) 81 mg PO DAILY 02/07/23 [History Last Taken Unknown] cinnamon bark 500 mg capsule (Cinnamon) 500 mg PO DAILY 02/07/23 [History Last Taken Unknown] cranberry 500 mg capsule 500 mg PO DAILY 02/07/23 [History Last Taken Unknown] vibegron 75 mg tablet 75 mg PO DAILY 02/07/23 [History Last Taken Unknown] nitrofurantoin monohydrate/macrocrystals 100 mg capsule (Macrobid) 100 mg PO BID #10 caps 04/27/23 [Rx Last Taken Unknown] lovastatin 20 mg tablet 20 mg PO QHS cholesterol #90 tabs 05/25/23 [Rx Last Taken Unknown] levothyroxine 125 mcg tablet 125 mcg PO DAILY #90 tabs 06/23/23 [Rx Last Taken Unknown] Mitigare 0.6 mg capsule (colchicine) 0.6 mg PO .Q 48 hours NICK #45 caps 08/18/23 [Rx Last Taken Unknown] carvedilol 25 mg tablet 25 mg PO BID #180 tabs 10/06/23 [Rx Last Taken Unknown] apixaban 5 mg tablet (Eliquis) 5 mg PO BID 10/21/23 [History Last Taken Unknown] doxazosin 4 mg tablet 4 mg PO QHS #90 tabs 10/21/23 [Rx Last Taken Unknown] olmesartan 40 mg tablet 60 mg PO DAILY 10/21/23 [History Last Taken Unknown] glimepiride 2 mg tablet 2 mg PO DAILY blood sugar #90 tabs 10/27/23 [Rx Last Taken Unknown] pantoprazole 40 mg tablet,delayed release 40 mg PO DAILY antiacid #90 tabs 10/27/23 [Rx Last Taken Unknown] Allergy/AdvReac Type Severity Reaction Status Date / Time benazepril [From Lotensin] Allergy Unknown Verified 11/21/23 15:34 Iodine and Iodide Containing Allergy Shortness Verified 11/21/23 15:34 Produc of breath meperidine [From Demerol] Allergy Unknown Verified 11/21/23 15:34 metformin [From Janumet] Allergy Pain in Verified 11/21/23 15:34 joints Penicillins Allergy Hives Verified 11/21/23 15:34 propoxyphene [From Darvon] Allergy Unknown Verified 11/21/23 15:34 shellfish derived Allergy Shortness Verified 11/21/23 15:34 of breath sitagliptin [From Janumet] Allergy Pain in Verified 11/21/23 15:34 joints spironolactone Allergy Unknown Verified 10/21/23 10:43 rivaroxaban [From Xarelto] AdvReac Severe PERICARDIAL Verified 10/21/23 10:43 EFFUSION adhesive AdvReac Unknown Unknown Verified 10/21/23 10:43 hydrochlorothiazide AdvReac NEEDS Verified 10/21/23 10:43 FOLLOW-UP lisinopril AdvReac NEEDS Verified 10/21/23 10:43 FOLLOW-UP metoprolol AdvReac Shortness Verified 10/21/23 10:43 of breath simvastatin AdvReac Pain in Verified 10/21/23 10:43 joints Family History Mother Cancer Uterine Thyroid disorder Father Cancer lung Hypertension Surgical History Failed total knee replacement History of parathyroidectomy (2009) History of permanent cardiac pacemaker placement (06/2018) History of thyroidectomy, total (2009) History of tonsillectomy and adenoidectomy History of total hysterectomy S/P skin biopsy 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/2022) Social History household members: spouse and other number of children: 2 current occupational status: retired current occupation: worked in the [employer] at [employer] Smoking Status: Never smoker Electronic Cigarette Use: not used alcohol intake: never substance use type: does not use caffeine: No do you feel safe at home: Yes ROS ROS ED Constitutional Constitutional ED: Reports chills and subjective; Denies fever(s) Eyes Eyes: Denies blurry vision or change in vision ENT ENT ED: Reports rhinorrhea; Denies sore throat Cardiovascular Cardiovascular: Denies chest pain or palpitations Respiratory/Chest Respiratory/Chest: Reports dyspnea; Denies cough Gastrointestinal Gastrointestinal: Reports nausea; Denies vomiting Genitourinary Genitourinary ED: Denies dysuria or hematuria Musculoskeletal Musculoskeletal: Reports back pain and neck pain Integumentary Denies abscess or rash Neurologic Neurologic: Denies headache(s) or weakness Allergic/Immunologic Allergic/Immunologic ED: Denies mouth swelling or urticaria EXAM Physical Exam Const Vital Signs: 11/21/23 15:35 11/21/23 15:38 11/21/23 17:44 Temperature 96.1 F L 96.1 F L Temperature Source Temporal Temporal Pulse Rate 60 60 Respiratory Rate 16 16 Respiratory Effort Normal Non-Labored Respiratory Pattern Normal Blood Pressure 159/66 H 159/66 H Blood Pressure Mean 97 97 Pulse Ox 100 100 Oxygen Delivery Method Room Air Room Air 11/21/23 17:46 11/21/23 18:55 Temperature Temperature Source Pulse Rate 55 L 66 Respiratory Rate 14 Respiratory Effort Respiratory Pattern Blood Pressure 155/64 H 154/78 H Blood Pressure Mean 94 103 Pulse Ox 98 Oxygen Delivery Method Room Air Positive well nourished and well developed General Appearance ED: well developed and NAD HEENT Reports moist mucous membranes Neck supple and no JVD Resp normal respiratory effort and clear to auscultation bilaterally Cardio regular rate and regular rhythm GI non-tender and non-distended Palpation: soft Neuro oriented x3, CN's II-XII intact bilaterally and no sensory deficits noted Sensorium / Orientation: alert Motor Exam: strength 5/5 throughout Psych mental status grossly normal MDM MDM MDM Narrative Medical decision making narrative: Differential diagnosis includes viral illness, pneumonia, congestive heart failure, cardiac dysrhythmia, cardiac ischemia, electrolyte abnormality, dehydration, acute kidney injury, and anxiety. EKG will be obtained to assess for cardiac dysrhythmia and cardiac ischemia. Chest x-ray will be obtained to assess for pneumonia and congestive heart failure. CBC will be obtained to assess for leukocytosis and anemia. Comprehensive metabolic profile will be obt ained to assess for hepatic function, renal function, and electrolyte abnormality. High-sensitivity troponin will be obtained to assess for cardiac ischemia. BNP will be obtained to assess for congestive heart failure. COVID- 19, influenza, and RSV PCR will be obtained to assess for viral infection. History & Record Review Additional record(s) reviewed:: Prior labs Lab Data Attestation: I reviewed the patient's lab results. Lab results narrative: CBC was reviewed and was within normal limits. Basic metabolic profile was reviewed. BUN was 55 and creatinine was 1.64. These are consistent with prior results. Total bilirubin was slightly elevated at 1.4. The remainder is within normal limits. BNP was reviewed and was normal at 55.1. High-sensitivity troponin was reviewed and was normal at 31. Urinalysis was reviewed. Leukocyte esterase was 100 with 5-10 white blood cells and 1+ bacteria. COVID-19 PCR was reviewed and was negative. Influenza PCR was reviewed and was negative for influenza A and influenza B. RSV PCR was reviewed and was negative. Labs: Laboratory Results - last 24 hr 11/21/23 17:20 WBC 8.6 RBC 4.31 Hgb 13.3 Hct 41.3 MCV 95.8 MCH 30.9 MCHC 32.2 RDW Std Deviation 46.4 H RDW Coeff of Ignacia 13.2 Plt Count 188 MPV 9.6 Immature Gran % (Auto) 1.200 H Neut % (Auto) 69.3 Lymph % (Auto) 19.5 [place] % (Auto) 8.4 Eos % (Auto) 1.4 Baso % (Auto) 0.2 Absolute Neuts (auto) 6.0 Absolute Lymphs (auto) 1.68 Nucleated RBC % 0 Sodium 134 L Potassium 4.7 Chloride 103 Carbon Dioxide 27.0 Anion Gap 4 L BUN 55 H Creatinine 1.64 H Estim Creat Clear Calc 27.12 Est GFR (MDRD) Af Amer 39 L Est GFR (MDRD) Non-Af 32 L BUN/Creatinine Ratio 33.5 H Glucose 198 H Calcium 9.7 Total Bilirubin 1.40 H AST 20 ALT 19 Alkaline Phosphatase 98 Troponin I High Sens 31 B-Natriuretic Peptide 55.1 Total Protein 7.0 Albumin 3.6 Globulin 3.4 Albumin/Globulin Ratio 1.1 Urine Color Yellow Urine Clarity Sl. Cloudy Urine pH 5.0 Ur Specific [place] 1.020 Urine Protein 30 H Urine Glucose (UA) Normal Urine Ketones Negative Urine Occult Blood Negative Urine Nitrite Negative Urine Bilirubin Negative Urine Urobilinogen Normal Ur Leukocyte Esterase 100 H Urine RBC 0 SEEN Urine WBC 5-10 SEEN Ur Squamous Epith Cells 0-5 SEEN Urine Bacteria 1+ Urine Mucus 0 SEEN Radiography Diagnostic Testing: Clinical Impression(s) from Imaging Studies Chest X-Ray 11/21/23 17:52 IMPRESSION: No acute cardiopulmonary pathology Electronically Signed: Shaggy Mcgarry MD at 18:08 EST Reading Location ID and State: [facility] / [place] Tel [phone], Service support , PA and lateral chest x-ray was obtained. There are 2 views. On my independent interpretation, lung scott are clear. There is normal cardiac silhouette. Bony thorax is normal. There is no acute process noted. Radiologist also interpreted the x-ray and agrees. EKG Initial EKG: Attestation: I personally reviewed and interpreted this EKG as follows: Interpretation: Paced (67), LBBB and Non-Specific ST Changes Comments: EKG was obtained. On my independent interpretation, it shows atrial paced rhythm with a rate of 67. There is a left bundle branch block pattern noted. IL interval is prolonged at 280 ms. QRS interval was prolonged at 172 ms. QTc interval was normal at 456 ms. There is left axis deviation at -62. There are nonspecific ST-T wave changes. Prior EKG tracings: available for review Prior: Unchanged (12/01/2022) Treatment and Re-Evaluation :: Patient was given IV fluids. Patient was advised of her findings. Patient was instructed to continue drinking plenty of fluids. Patient was instructed to continue Tylenol or ibuprofen as needed for pain. Patient was instructed to follow-up with her primary care physician in 5 to 7 days for further evaluation. Patient understood and was agreeable with the plan. All questions were answered. Discharge Plan Triage Chief Complaint: General Illness ED Provider: Ruben Brar Dx/Rx/DC Orders Clinical Impression: Fatigue, Near syncope Instructions: ED Near-Fainting, Uncertain Cause Prescriptions: No Action (DME) Oral Appliance See Rx Instructions .ROUTE .MEDSUPPLY Qty: 1 0RF Rx Instructions: As directed aspirin [Adult Aspirin Regimen] 81 mg tablet,delayed release (DR/EC) 81 mg PO DAILY vibegron 75 mg tablet 75 mg PO DAILY cranberry 500 mg capsule 500 mg PO DAILY Rx Instructions: administer with meals ascorbic acid (vitamin C) 500 mg capsule PO DAILY cinnamon bark [Cinnamon] 500 mg capsule 500 mg PO DAILY olmesartan 40 mg tablet 60 mg PO DAILY Eliquis 5 mg tablet 5 mg PO BID doxazosin 4 mg tablet 4 mg PO QHS Qty: 90 1RF latanoprost 0.005 % Drops 1 drp EACH EYE QHS fuxap-[id number]-epa-fish oil 350-400 mg Capsule 830 cap PO DAILY cholecalciferol (vitamin D3) 125 mcg (5,000 unit) tablet 125 mcg PO DAILY Qty: 30 0RF cinnamon bark [Cinnamon] 500 mg capsule 2,000 mg PO DAILY Qty: 120 0RF nitrofurantoin monohyd/m-cryst [Macrobid] 100 mg capsule 100 mg PO BID Qty: 10 0RF Rx Instructions: must administer with a meal/food lovastatin 20 mg tablet 20 mg PO QHS Qty: 90 1RF levothyroxine 125 mcg tablet 125 mcg PO DAILY Qty: 90 1RF colchicine [Mitigare] 0.6 mg capsule 0.6 mg PO .Q 48 hours Qty: 45 1RF carvedilol 25 mg tablet 25 mg PO BID Qty: 180 0RF Rx Instructions: must administer with a meal/food glimepiride 2 mg tablet 2 mg PO DAILY Qty: 90 1RF pantoprazole 40 mg tablet,delayed release (DR/EC) 40 mg PO DAILY Qty: 90 1RF Primary Care Provider: Chiara Triana Referrals: Chiara Triana MD [Primary Care Provider] - 3-5 Days Disposition Disposition: Home, Self Care
--- NOTE | 2023-11-21 17:01 | EKG12_ITS ---
Test Reason : GENERAL Blood Pressure : / mmHG Vent. Rate : 067 BPM Atrial Rate : 067 BPM P-R Int : 280 ms QRS Dur : 172 ms QT Int : 432 ms P-R-T Axes : 000 -62 116 degrees QTc Int : 456 ms Atrial-paced rhythm with prolonged AV conduction Left axis deviation Left bundle branch block Abnormal ECG Confirmed by COLE GERBER, DIPESH ([id number]), development editor YESICA FERNANDEZ ([id number]) on 11/24/2023 9:45:53 AM Referred By: Confirmed By:DIPESH GALVAN MD
[2023-11-21] MEDS: 0.9% Normal Saline (1000mL) 1,000 ML 1000 ML IV (17:34)
[2023-11-21 17:42] LABS: Mucous, Urine 0 SEEN /hpf (<or=2+); Red Blood Cells-Urine 0 SEEN /hpf (0-5)
[2023-11-21 17:44] LABS: Absolute Lymphocyte Count 1.68 X10^3/uL (0.83-4.51); Basophil# 0.02 X10^3/uL; Basophil% 0.2 % (0-1); Eosinophil# 0.12 X10^3/uL; Eosinophils% 1.4 % (0-5); Hematocrit 41.3 % (37-47); Hemoglobin 13.3 g/dL (12.0-15.0); Lymphocyte # 1.68 X10^3/ul (0.83-4.51); Lymphocyte % 19.5 % (19-41); Mean Corp Hgb Conc 32.2 g/dL (32-36); Mean Corpuscular Hgb 30.9 pg (27.0-32.0); Mean Corpuscular Volume 95.8 fL (81-99); Mean Platelet Vol. 9.6 fl (6.2-12.0); Monocyte# 0.72 X10^3/uL; Monocyte% 8.4 % (0-10); NRBC Flagged by Analyzer 0 % (0-5); Neutrophil # 5.97 X10^3/uL (2.7-7.7); Neutrophil % 69.3 % (47-70); Platelet Count 188 K/mm3 (150-450); RBC Distribution Width CV 13.2 % (11.6-14.6); RBC Distribution Width SD 46.4 fl (35.1-43.9); Red Blood Count 4.31 M/mm3 (4.2-5.4); White Blood Count 8.6 K/mm3 (4.4-11.0)
[2023-11-21 17:46] VITALS: BP 155/64; PULSE 55
[2023-11-21 17:48] VITALS: BMI 37.8
--- NOTE | 2023-11-21 17:52 | RAD_ITS ---
STUDY: X-RAY CHEST REASON FOR EXAM: Female, 83 years old. Chest pain TECHNIQUE: AP portable COMPARISON: None FINDINGS: The lungs are clear and expanded. There is no demonstrated pleural abnormality. Pacer noted with electrodes in satisfactory position. Normal size heart. Normal mediastinum and cookie. Normal visualized pulmonary arteries. Mildly calcified aortic arch and descending thoracic aorta. Dorsal spine demonstrates mild degenerative change. Normal visualized ribs, clavicles, and shoulders. Small hiatal hernia is noted There is no demonstrated abnormality of the visualized soft tissue structures of the upper abdomen. RAD/Chest PA and Lateral IMPRESSION: No acute cardiopulmonary pathology Electronically Signed: Shaggy Mcgarry MD at 18:08 EST ,
[2023-11-21 17:55] LABS: Color, Urine Yellow (Yellow); Glucose, Dipstick Normal (Normal); Ketone-Dipstick Negative (Negative); Leukocyte Esterase-Dipstick 100 /ul (Negative); Nitrite-Dipstick Negative (Negative); Occult Blood-Urine Negative /ul (Negative); Protein-Dipstick 30 mg/dl (Negative); Urine Bilirubin Dipstick Negative (Negative); Urine Clarity Sl. Cloudy (Clear); Urine Urobilinogen Normal (Normal)
[2023-11-21 18:03] LABS: BNP,B-Type NATRIURETIC PEPTIDE 55.1 pg/mL (0-100)
[2023-11-21 18:05] LABS: Squamous Epithelial Cells - UA 0-5 SEEN /hpf (5-10); White Blood Cells 5-10 SEEN /hpf (0-5)
[2023-11-21 18:06] LABS: ALB/GLOB Ratio 1.1 RATIO (0.9-2.4); AST(SGOT) 20 U/L (15-37); Alanine Aminotransfer ALT/SGPT 19 U/L (13-56); Albumin, Serum 3.6 g/dL (3.2-5.0); Alkaline Phosphatase 98 U/L (45-117); Anion Gap 4 (5-15); BUN 55 mg/dL (7-18); BUN/Creat Ratio 33.5 RATIO (10-20); Bacteria 1+ /hpf (None Seen); Calcium,Total 9.7 mg/dL (8.5-10.1); Chloride 103 mmol/L (98-107); Creatinine, Serum 1.64 mg/dL (0.55-1.02); EST Glomerular Filtration Rate 32 mL/min (>60); Est Glom Filt Rate - Afr Amer 39 mL/min (>60); Estimated Creatinine Clearance 27.12 ml/min; Globulin 3.4 g/dL (2.2-4.2); Glucose 198 mg/dL (74-106); Potassium 4.7 mmol/L (3.5-5.1); Sodium Level 134 mmol/L (136-145); Troponin-I HS 31 pg/mL (3.0-54.0)
[2023-11-21 18:55] VITALS: BP 154/78; PULSE 66; RESP 14; O2SAT 98
[2023-11-21 20:25] VITALS: BP 140/74; PULSE 55; RESP 16; TEMP 36.2; O2SAT 99
== END 2023-11-21 20:28 | disposition home or self-care (01) ==
PROVIDERS: Emergency Provider Emergency Medicine; PCP Internal Medicine; Visit Provider Emergency Medicine
DX: R53.83 Other fatigue (principal); E11.22 Type 2 diabetes mellitus with diabetic chronic kidney disease; I48.0 Paroxysmal atrial fibrillation; N18.31 Chronic kidney disease, stage 3a; R06.02 Shortness of breath; R55 Syncope and collapse; G47.33 Obstructive sleep apnea (adult) (pediatric); Z95.0 Presence of cardiac pacemaker
CPT/HCPCS: 71046; 80053; 81001; 83880; 84484; 85025; 87077; 87086; 87088; 87186; 87631; 93005; 96360; 96361; 99284; J7030

== ENCOUNTER → 2024-03-03 | Outpatient (CLI) | payer MEDICARE, SELFPAY ==
[2024-03-03 16:05] LABS: Albumin, Serum 3.8 g/dL (3.2-5.0); BUN 71 mg/dL (7-18); BUN/Creat Ratio 29.5 RATIO (10-20); Chloride 103 mmol/L (98-107); Creatinine, Serum 2.41 mg/dL (0.55-1.02); EST Glomerular Filtration Rate 20 mL/min (>60); Est Glom Filt Rate - Afr Amer 25 mL/min (>60); Glucose 181 mg/dL (74-106); Potassium 4.2 mmol/L (3.5-5.1); Sodium Level 135 mmol/L (136-145)
[2024-03-03 16:08] LABS: Protein, Urine (Random) 6.3 mg/dL (<11.9); Protein:Creat Ratio 65 mg/g CRE (0-200)
== END | disposition home or self-care (01) ==
LOC: LAB 13:25
PROVIDERS: PCP Internal Medicine; Referring Provider Internal Medicine Nephrology; Visit Provider Internal Medicine Nephrology
DX: N18.32 Chronic kidney disease, stage 3b (principal)
CPT/HCPCS: 36415; 80069; 82570; 84156

== ENCOUNTER → 2024-03-09 | Outpatient (CLI) | payer MEDICARE, SELFPAY ==
--- NOTE | 2024-03-09 07:54 | CR.HP_ITS ---
CR - History & Physical General Arrival date:: 03/09/24 Arrival time:: 07:58 Date of Referral:: 02/19/24 Date of CR Evaluation:: 03/09/24 Referring Physician: Dr. Angelito Cifuentes; Dr Hoffman @ [facility] Primary Diagnosis: S/P TAVR History of Present Cardiac Event Onset Date Heart valve replacement or repair:: Yes (TAVR) Type of Symptoms:: Shortness of breath Interventions with present event:: Valve replacement Were there any complications?: Medications Ambulatory Orders ?Medication ?Instructions ?Recorded Oral Appliance #1 ea 03/19/22 latanoprost 0.005 % eye drops 1 drp EACH EYE QHS Check with 03/28/22 primary doctor [id number] 830 cap PO DAILY supplement 12/01/22 oil 350 mg- 400 mg capsule cholecalciferol (vitamin D3) 125 125 mcg PO DAILY #30 tabs 12/11/22 mcg (5,000 unit) tablet cinnamon bark 500 mg capsule 2,000 mg (4 x 500 mg) PO DAILY 12/12/22 (Cinnamon) #120 caps ascorbic acid (vitamin C) 500 mg mg PO DAILY 02/07/23 capsule aspirin 81 mg tablet,delayed 81 mg PO DAILY 02/07/23 release (Adult Aspirin Regimen) cinnamon bark 500 mg capsule 500 mg PO DAILY 02/07/23 (Cinnamon) cranberry 500 mg capsule 500 mg PO DAILY 02/07/23 vibegron 75 mg tablet 75 mg PO DAILY 02/07/23 nitrofurantoin 100 mg PO BID #10 caps 04/27/23 monohydrate/macrocrystals 100 mg capsule (Macrobid) Mitigare 0.6 mg capsule 0.6 mg PO .Q 48 hours NICK #45 caps 08/18/23 (colchicine) doxazosin 4 mg tablet 4 mg PO QHS #90 tabs 10/21/23 glimepiride 2 mg tablet 2 mg PO DAILY blood sugar #90 tabs 10/27/23 pantoprazole 40 mg tablet,delayed 40 mg PO DAILY antiacid #90 tabs 10/27/23 release colchicine 0.6 mg tablet 0.6 mg PO .q48 hours #45 tabs 12/11/23 levothyroxine 125 mcg tablet 125 mcg PO DAILY #90 tabs 12/24/23 olmesartan 40 mg tablet 60 mg (1.5 x 40 mg) PO DAILY #135 12/24/23 tabs carvedilol 25 mg tablet 25 mg PO BID #180 tabs 01/02/24 lovastatin 20 mg tablet 20 mg PO QHS cholesterol #90 tabs 01/06/24 apixaban 5 mg tablet (Eliquis) 5 mg PO BID #180 tabs 01/09/24 Allergies Allergies benazepril (From Lotensin) Allergy (Verified 11/21/23 15:34) Unknown Iodine and Iodide Containing Produc Allergy (Verified 11/21/23 15:34) Shortness of breath meperidine (From Demerol) Allergy (Verified 11/21/23 15:34) Unknown metformin (From Janumet) Allergy (Verified 11/21/23 15:34) Pain in joints Penicillins Allergy (Verified 11/21/23 15:34) Hives propoxyphene (From Darvon) Allergy (Verified 11/21/23 15:34) Unknown shellfish derived Allergy (Verified 11/21/23 15:34) Shortness of breath Seafood sitagliptin (From Janumet) Allergy (Verified 11/21/23 15:34) Pain in joints spironolactone Allergy (Verified 10/21/23 10:43) Unknown rivaroxaban (From Xarelto) Adverse Reaction (Severe, Verified 10/21/23 10:43) PERICARDIAL EFFUSION Was on Prednisone and Colchicine for 13 months adhesive Adverse Reaction (Unknown, Verified 10/21/23 10:43) Unknown hydrochlorothiazide Adverse Reaction (Verified 10/21/23 10:43) NEEDS FOLLOW-UP lisinopril Adverse Reaction (Verified 10/21/23 10:43) NEEDS FOLLOW-UP metoprolol Adverse Reaction (Verified 10/21/23 10:43) Shortness of breath simvastatin Adverse Reaction (Verified 10/21/23 10:43) Pain in joints Sleep Disorder Evaluation Hx of Sleep Apnea: Yes Do you snore loudly (louder than talking or can be heard through closed doors)?: Yes Do you often feel tired/ fatigued/ sleepy during daytime?: Yes Has anyone observed you stop breathing during sleep?: Yes History of Hypertension (for STOP score): Yes STOP Results: Positive-has home BiPAP Advanced Directives Advanced Directives Power of Data Systems Manager: Yes Living Will: Yes Advance Directives Information Provided: No Advance Directives on File: No DNR Order?:: No MOLST See MOLST form: No Past Medical History Covid-19 Screening Physicial Symptoms Fever: No Unexplained muscle aches: No Current respiratory symptoms: No Upper respiratory infections symptoms: No Gastro-intestinal symptoms: No Aod-Bqlo-Wmxbdy symptoms: No Other Clinical Concerns Has tested positive for COVID-19 in last 30 days: No Exposure Risk Had contact w/person w/symptoms or Covid-19 (+) last 14 days: No Has High Risk Exposures ID'd by Health dept/Inf Control team: No Pertinent Comorbidities 65 years or older:: Yes Lives in Assisted Living facility:: No Has a chronic lung disease or moderate to severe asthma:: No Has a serious heart condition:: Yes Immunocompromised:: No Severely obese (Body Mass Index of 40 or higher):: No Diabetic:: Yes Has chronic kidney disease undergoing dialysis:: Yes Has liver disease:: No Past Medical Illness Past Medical History (Updated 11/29/23 @ 00:02 by Elsa Grossman) Aortic stenosis I35.0 Modereately severe per echo 01/30/2023 echo done at [facility] Breast calcification, right R92.1 Anxiety F41.9 Hypothyroidism E03.9 Diabetes E11.9 Kidney disease N28.9 Sleep apnea G47.30 Atrial fibrillation I48.91 Secondary pulmonary arterial hypertension I27.21 Sick sinus syndrome I49.5 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 Xarelto was stopped and she was on Prednisone + Colchicine for 13 months and now is only on Colchicine. LVH (left ventricular hypertrophy) I51.7 Musculoskeletal back pain M54.9 PAF (paroxysmal atrial fibrillation) I48.0 Hemoptysis R04.2 CLIFFORD (obstructive sleep apnea) G47.33 Hypersomnolence G47.10 Nonrheumatic aortic valve stenosis I35.0 Carotid bruit R09.89 HLD (hyperlipidemia) E78.5 Abnormal cardiac enzyme level R74.8 Hyperthyroidism E05.90 Had a thyroidectomy in 2009 for a malignancy. 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 Georgi Rodrigez. 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 History of total hysterectomy Z90.710 History of tonsillectomy and adenoidectomy Z98.890 History of parathyroidectomy (2009) Z98.890 X 2 History of thyroidectomy, total (2009) E89.0 Surgical History: - (Left TKR, hysterectomy with bilateral salpingo- oophorectomy, thyroidectomy, tonsillectomy, pacemaker placement, appendectomy.) Family History Summary Family History Mother Cancer Uterine Thyroid disorder Father Cancer lung Hypertension Social History Smoking History Smoking Status: Never smoker Alcohol Use Alcohol Usage: No Substance Abuse Hx Substance Use: No Occupation Occupation (List type of work in comments):: Retired Hobbies, Recreation, Social Activities Hobbies: Walking (walking on indoor track) and Other (Like to cook and bake, theater and plays) Recreational Activities: I am able to engage in most, but not all activities Social Environment Status Marital Status: Current Living Arrangements Living Environment:: Spouse Children How many children do you have?: 2 Do any of your children live nearby?: Yes ([place]) Safety Do you feel safe in your surroundings?: Yes Assistance Do you need any assistance at home?: not really, does have problems reaching things on higher shelves. Review of Systems Review of Systems Hints Review of Present Symptoms: Reports Shortness of Breath with Exertion, Dizziness/Lightheadedness (not regularly, but once in a while will get some symptoms), Fatigue, Heart Arrhythmia/Irregularities (Atrial paced rhythm - has had pacemaker since 06/2018), Appetite - Normal, Appetite - Special Diet (Try to watch eating due to diabetes) and Sleep - Normal (sometimes awake two - three times a night); Denies Shortness of Breath at Rest or Operative Discomfort Pain Is Patient Pain Free?: Yes Pain Location: lower extremity (left knee replaced and still has issues/pain. Sees Dr. Stephens for Pain Management) Risk Factor Assessment Vital Signs Temperature: 98.4 F Respiratory Rate: 16 Pulse Ox: 98 Blood Pressure: 106/62 Pulse Pulse Rate: 57 Pulse Rhythm: Regular Hypertension How long have you been treated?: since mid 's On medication(s)?: Yes Blood Pressure Sitting - Right Arm: 106/62 Stress Stress: Recent (related to the recent surgery) Blood Cholesterol/Lipids Total Cholesterol (mg/dL) Goal = less than 200 mg/dL: 192 HDL Cholesterol (mg/dL) Goal = less than 40 mg/dL: 87 LDL Cholesterol (mg/dL) Goal = less than 70 mg/dL: 95 Triglycerides (mg/dL) Goal = less than 150 mg/dL: 49 Diabetes Diabetic History: Type II Nutrition Referral for Diabetes: Yes Obesity Height: 5 ft 1 in Weight:: 197 lb Weight in Pounds: 197.0 lbs Weight Source: [facility] ([facility]) Body Mass Index (BMI): 37.2 Physical Inactivity Physical Inactivity: Recreational activity (Bi-level home 3 sets of stairs, walking indoor track, ) Exercise Limitations: left knee pain/discomfort Risk Stratification Risk Guidelines: Lowest Risk: Risk Factor for Smoking, Risk Factor for Hypertension and Risk Factor for Depression, Moderate Risk: Risk Factor for Dyslipidemia, Risk Factor for Diabetes and Risk Factor for Sedentary Lifestyle and Highest Risk: Risk Factor for Obesity For Smoking Smoking Risk Guidelines For Dyslipidemia Dyslipidemia Risk Guidelines For Diabetes Mellitus Diabetes Risk Guidelines For Obesity/Overweight Obesity/Overweight Risk Guidelines For Hypertension Hypertension Risk Guidelines For Sedentary Lifestyle Sedentary Lifestyle Risk Guidelines For Depression Depression Risk Guidelines Family History Family History Mother Cancer Uterine Thyroid disorder Father Cancer lung Hypertension Motivation Motivation to Participate On a scale of 1 to 10, how prepared are you to commit to attending program?: 10 What do you see as barriers to successfully being able to complete the program?: no What do you see as the benefits of succesfully completing the program? In other words, what do you hope to get out of participating in the program?: Healthier, more energy, being able to climb stairs at home, less dypnea Are there issues you are dealing with that will interfere with completing the program?: Appointments at the [facility] Do you have a spouse or signficant other, family or friends who will help support you to complete the program?: Yes
--- NOTE | 2024-03-09 07:54 | CR.ITP_ITS ---
Diagnosis General Information Admitting Diagnosis: S/P TAVR Secondary Diagnosis: HTN, HLD, DM Type II, Chronic Kidney Disease, Obesity Personal Learning Style:: Audio/Visual and Written Barriers to Learning: Vision Impairment Stage of change r/t lifestyle modifications:: Action Gave educational material for:: Treating Heart Disease, How The Heart Works, What it means to have Heart Disease, How Coronary Artery Disease is Diagnosed, Heart Procedures, What Heart Medications Do, Risk Factors & Modifications, Living an Active Life, Nutrition, Emotions & Heart Disease, Stress Management & Relaxation and Sleep Disorders & Heart Disease Education/Goals Individual Counseling: Initial Assessment: Abnormal Cholesterol Levels, High Blood Pressure, Overweight/Obesity, Diabetes, A. Fasting Blood Sugar >100, Hypertension and Sedentary Lifestyle Cardiac Rehabilitation Goals Personal Goals: Initial Assessment: Improve energy level, Participate in home exercise program, Improve knowledge of cardiac disease, Improve muscle strength and endurance, Improve diet and eating habits (eat healthier) and Control risk factors (learn risk factor modification) Scale for measuring improvement of personal goals Diagnosis & Disease Process Outcomes/Goals: Pt IDs own risk factors & lifestyle modifications by Session 10, Verbalizes symptoms of angina & response by session 3. and Pt independently manages Plan/Interventions: Assist Pt to ID & engage in lifestyle modification to reduce CVD risk, Instruct on individual risk factors, Review symptoms of angina & emergency actions and Review secondary diagnosis & identify educational needs. Safety Referral to Physical Therapy: No Referral to [facility] Case Management: No Fall Risk Assessed:: Yes Assistive Devices:: Cane Exercise - Initial Assessment Visit Date of Eval: 03/09/24 Session #:: 0 (Pre=program evaluation) Mets: Pre-: >5 METS for 30 minutes by discharge Physician Prescribed Exercise Modalities: [employer]ise[employer] Stepper and [employer] Pro-II Ergometer Frequency: 3x/week for 12 weeks [36 sessions] Intensity: 60-80% of age predicted maximum heart rate reserve Duration: 30 - 45 minutes Current METSs:: 2.0 Target Heart Rate:: 89-116 Resting Blood Pressure: 106/62 EKG Type: [place] Paced Rhythm w/prolonged AV conduction Outcomes & Goals Goals:: Verbalizes understanding of THR, RPE & goal METS by session 6, Documents in home exercise log/reports 30 min aerobic 5 day/wk by DC and Demonstrates accurate pulse taking by DC Intervention & Plan Exercise Program Goals: Instruct on personal THR & RPE, Instruct on MET level & personal MET goal, Show patient to take own pulse /validate performance until accurate and Instruct on home exercise Physical Activity Home Exercise Physical Activity - Home Exercise: Safe Exercise, Warm-up, Self-monitoring, Cool-Down, Home Exercise > 30 min Daily and Sitting Time <3 hours/daily Outcomes & Goals Outcomes/Goals: Demonstrates correct Warm-up/exercise Cool-Down (S3) if = 2.5 METs, Verbalizes symptoms of exercise intolerance by Session 3 (S3) and Demonstrate safe equipment use (S3) & follows exercise prescrition (6) Intervention & Plan Plan/Intervention: Instruct warm-up & cool-down if exercising at > 2 METs, Instruct on symptoms of exercise intolerance & actions to take, Instruct & monitor on saf and Assess intial functional capacity & safety risk Nutrition - Initial Assessment Program Goals Nutrition Program Goals Patient has diagnosis of Hyperlipidemia (ICD E78)?: Yes Visit Date of Eval: 03/09/24 Session #:: 0 (Pre-program evaluation) Cholesterol/Lipids (Other Core Measures) Triglycerides (mg/dL): 49 Total Cholesterol (mg/dL): 192 LDL Cholesterol (mg/dL): 95 HDL Cholesterol (mg/dL): 87 Determine presence & major risk factors that modify LDL goal: Age men > 45 years; women >/= 55 years Outcomes/Goals: Pt IDs own risk factors & lifestyle modifications by Session 10, Verbalizes symptoms of angina & response by session 3. and Pt independently manages Intervention/Plan: Instruct on personal lipid levels & lipid goals/NCEP guidelines and Instruct on cholesterol Referral to dietitian:: Yes Diabetes (Other Core Measures) Diabetes Type: Diagnosis Type II ICD-10 E11 Fasting blood glucose:: 169 Hgb A1C (4.2 - 6.3): 6.4 Insulin dependent injection/pump?: No Non-Insulin Dependent?: Yes (Glimepiride 2mg) Do you monitor your blood sugar at home?: Yes Referral to Diabetic Clinic:: Yes Outcomes/Goals:: Able to state symptoms of, Able to state and Able to state Intervention/Plan:: Instruct on, Refer to and Instruct on Weight Mgt (Other Care) Not Applicable: Yes Height: 5 ft 2 in Weight:: 197 lb BMI: 36.0 Diagnosis Overweight/Obesity BMI> 30% ICD-10 E66: Yes Diagnosis High BMI/Morbid Obesity BMI> 35% ICD-10 Z68: Yes Outcomes/Goals: Pt sets, maintains & shows weight loss goal & trend during rehab Intervention/Plan: Instruct on ideal BMI & set weight loss goal w/patient, Assist pt to ID & incorporate diet changes for weight loss by S9, Refer to Structured Weight Loss program as appropriate and Encourage goal of using 250- 300dcal per session for weight loss Healthy Eating Habits Will attend diet classes:: Yes Outcomes/Goals:: Consume diet rich in vegs,fruits,whole grain/high fiber,fish,l vincenzo meat and Limit sat/trans fats,cholesterol & added salts & sugars Intervention/Plan:: Assess current eating habits Education Gave educational materials for:: Signs & symptoms of hypoglycemia, Signs & symptoms of hyperglycemia and Relate diabetes to coronary artery disease Core - Initial Assessment Medication Compliance Preventative Medication(s):: Aspirin, Statin/lipid, Beta ricarda and Eliquis H/O mental health issues: depression, anxiety, or addiction?: No Doesn?t believe in the benefits of treatment?: No Believes medications are unnecessary or harmful?: No Has a concern about medication side effects?: No Expresses concern over the cost of medications?: No Outcomes/Goals: Verbalizes medications,desired effect & common side effects @ DC, Pt self-reports following medication regimen and Keeps card in wallet w/medications listed by DC Interventions/plans: Instruct on medication effects & side effects, Review medication list w/patient every two weeks and Instruct importance of taking meds as ordered & assist problem solving Tobacco Use Tobacco Use: Non-smoker Hypertension Hypertension Diagnosis:: Hypertension ICD-10 I10 Resting Blood Pressure:: 106/62 [place] [employer] Hypertension Guidelines Outcomes/Goals: Able to verbalize/achieve optimal blood pressure <130/80 and Incorporates diet changes & exercise for blood pressure control by DC Interventions/plan: Instruct on optimal blood pressure, hypertension & medications and Instruct on effects of sodium, alcohol, stress, exercise &hypertension Tobacco Cessation Referral Smoking Cessation Referral:: No Individual Education/Counseling:: No Education Schedule Given:: Yes Psychosocial - Initial Assess VIsit Date of Eval: 03/09/24 Session #:: 0 (Pre-program evaluation) Not Applicable: Yes History of previous Mental disease:: No Target Goals Target Goals Psychosocial Test Tool Used:: [employer] QOL Cardiac and PHQ-9 Questionnaire phq-9 Severity Referral to Behavioral Health PS - Interventions: Yes: Attend Stress Management Classes and No: Referral to Behavioral Health if PHQ-9 score >9:, No: Referral to [facility] and No: Referral to Physician if PHQ-9 if score is 5-9: Outcomes/Goals: See list Psychosocial Outcomes/Goals:: ID's personal stressors & 2 strategies to manage stress by discharge Intervention/Plan: See List Interventions/Plan:: Assess stressors,coping strategies & signs of derpression on admission, Instruct/assist pt to develop coping & personal stress Mgt strategies, Instruct patient to recognize signs & symptoms of depression and Instruct patient to recog Patient Health Questionnaire PHQ-9 Screening Initial Assessment: 1. Little interest or pleasure in doing things: Not at all 2. Feeling down, depressed, or hopeless: Not at all 3. Trouble falling or staying asleep, or sleeping too much: Several days 4. Feeling tired or having little energy: More than half the days 5. Poor appetite or overeating: Not at all 6. Feeling bad about yourself -- or that you are a failure or have let yourself or your family down: Not at all 7. Trouble concentrating on things, such as reading the newspaper or watching television: Not at all 8. Moving or speaking so slowly that other people could have noticed. Or the opposite - being so fidgety or restless that you have been moving around a lot more than usual: Not at all 9. Thoughts that you would be better off , or of hurting yourself in some way: Not at all How difficult have these problems made it for you to do your work, take care of things at home, or get along with other people?: Somewhat difficult Total Score: 3 DELONTE-Q SV Test Statements CAD is a disease of the arteries in the heart: False Examples of risk factors for heart disease: True Angina is chest pain or discomfort: True The benefits of resistance training include: True Eating more meat and dairy products: False Anti-platelet medications such as aspirin are important: True The only effective way to manage stress: False An exercise warm-up slowly increases heart rate: True Prepared, processed foods usually have high sodium: True Depression is common after a heart attack: True The statin medications lower cholesterol: True To control blood pressure, lower the amount of sodium: True If someone gets chest discomfort during walking: False Transfats are partially hydrogenated vegetable oils: True Sleep apnea that is not treated increases the risk: False To control cholesterol, one should become a vegetarian: False Someone knows if he/she is exercising at the right level: True Diabetes cannot be prevented with exercise & health eating: False Stress is a large risk for heart attack: True A diet that can help lower blood pressure is rich in: True Total Score Total Correct Responses: 20 Self-Efficacy 6-Item Scale Initial Assessment: We would like to know how confident you are in doing certain activities. Please select your confidence level for: Fatigue Select Number: 8 Physical Discomfort or Pain Select Number: 8 Emotional Distress Select Number: 8 Other Symptoms or Health Problems Select Number: 8 Different Tasks and Activities Select Number: 8 Medication Select Number: 8 Total Score:: 8 Nutrition Survey Nutrition Survey Instructions Scoring Instructions Nutrition Survey Initial: Have you lost >10 lbs over the past 2 months without trying?: No Are you following a special diet at home for diabetes, low fat, or low salt?: No Are you interested in meeting with a dietitian for help understanding your diet?: Yes Do you eat less than 3 meals a day?: No Do you eat fatty meats (black, sausage, ribs, etc), fried foods, desserts, large amounts of salad dressings, margarine, butter, or cheese most days?: Yes Do you have food allergies? [Enter types in comment field]: Yes (seafood, especially Shellfish) Do you eat in restaurants more than 3 times a week?: No Do you season food with salt, seasoning salt, or garlic salt?: Yes Do you used canned, boxed, frozen meals, or soups, seasoning packets?: Yes Total Score:: 5 Exercise - 30-day Assessment Physician Prescribed Exercise Modalities: [employer] Stepper and [employer] Pro-II Ergometer Exercise - 60-day Assessment Physician Prescribed Exercise Modalities: [employer]Fit Stepper and [employer] Pro-II Ergometer Exercise - 90-day Assessment Physician Prescribed Exercise Modalities: [employer]Fit Stepper and [employer] Pro-II Ergometer Exercise - Final/Discharge Physician Prescribed Exercise Modalities: SciFit Stepper and [employer] Pro-II Ergometer Frequency: 3x/week for 12 weeks [36 sessions] Intensity: 60-80% of age predicted maximum heart rate reserve Current METSs:: 2.0 Target Heart Rate:: 89-116 Nutrition - 30-Day Assessment Weight Mgt (Other Care) Height: 5 ft 2 in Weight:: 197 lb BMI: 36.0 Nutrition - 60-Day Assessment Weight Mgt (Other Care) Height: 5 ft 2 in Weight:: 197 lb BMI: 36.0 Core - 30-Day Assessment Visit Session #:: 0 (Pre=program evaluation) Core - Final Assessment Hypertension Resting Blood Pressure:: 106/62 [place] [employer] Hypertension Guidelines Core - 60-Day Assessment Hypertension Resting Blood Pressure:: 106/62 [place] [employer] Hypertension Guidelines Psychosocial - 30-Day Assess Target Goals Target Goals Referral to Behavioral Health PS - Interventions: Yes: Attend Stress Management Classes and No: Referral to Behavioral Health if PHQ-9 score >9:, No: Referral to [facility] and No: Referral to Physician if PHQ-9 if score is 5-9: Psychosocial - 60-Day Assess Target Goals Target Goals Referral to Behavioral Health PS - Interventions: Yes: Attend Stress Management Classes and No: Referral to Behavioral Health if PHQ-9 score >9:, No: Referral to [facility] and No: Referral to Physician if PHQ-9 if score is 5-9: Psychosocial - 90-Day Assess Target Goals Target Goals Referral to Behavioral Health PS - Interventions: Yes: Attend Stress Management Classes and No: Referral to Behavioral Health if PHQ-9 score >9:, No: Referral to [facility] and No: Referral to Physician if PHQ-9 if score is 5-9: Psychosocial - Final Assessmen Target Goals Target Goals Referral to Behavioral Health PS - Interventions: Yes: Attend Stress Management Classes and No: Referral to Behavioral Health if PHQ-9 score >9:, No: Referral to [facility] and No: Referral to Physician if PHQ-9 if score is 5-9: Nutrition - 90-Day Assessment Weight Mgt (Other Care) Height: 5 ft 2 in Weight:: 197 lb BMI: 36.0 Nutrition - Final Assessment Program Goals Patient has diagnosis of Hyperlipidemia (ICD E78)?: Yes Weight Mgt (Other Care) Height: 5 ft 2 in Weight:: 197 lb BMI: 36.0
[2024-03-09 08:14] VITALS: BP 106/62; BMI 36.0
[2024-03-09 08:29] VITALS: BP 106/62; PULSE 57; RESP 16; TEMP 36.9; O2SAT 98; BMI 37.2
== END | disposition home or self-care (01) ==
LOC: CR 07:49
PROVIDERS: PCP Internal Medicine
DX: Z95.2 Presence of prosthetic heart valve (principal)

== ENCOUNTER 2024-03-26 13:00 | Outpatient (RCR) | payer MEDICARE, SELFPAY ==
[2024-03-09 08:14] VITALS: BMI 36.0
== END 2024-03-28 23:59 ==
LOC: CR 13:00
PROVIDERS: PCP Internal Medicine
DX: Z95.2 Presence of prosthetic heart valve (principal)
CPT/HCPCS: 93798

== ENCOUNTER → 2024-04-20 | Outpatient (CLI) | payer MEDICARE, SELFPAY ==
[2024-04-07 05:29] VITALS: BMI 35.4
[2024-04-20 15:23] LABS: Vitamin D,25 Hydroxy 54.3 ng/mL
[2024-04-20 15:48] LABS: ALB/GLOB Ratio 1.1 RATIO (0.9-2.4); AST(SGOT) 30 U/L (15-37); Alanine Aminotransfer ALT/SGPT 30 U/L (13-56); Albumin, Serum 3.7 g/dL (3.2-5.0); Alkaline Phosphatase 96 U/L (45-117); Anion Gap 8 (5-15); BUN 63 mg/dL (7-18); BUN/Creat Ratio 40.4 RATIO (10-20); Calcium,Total 10.1 mg/dL (8.5-10.1); Chloride 110 mmol/L (98-107); Creatinine, Serum 1.56 mg/dL (0.55-1.02); EST Glomerular Filtration Rate 34 mL/min (>60); Est Glom Filt Rate - Afr Amer 41 mL/min (>60); Globulin 3.4 g/dL (2.2-4.2); Glucose 149 mg/dL (74-106); Potassium 4.9 mmol/L (3.5-5.1); Protein, Total 7.1 g/dL (6.4-8.2); Sodium Level 139 mmol/L (136-145); Thyroid Stim Hormone (TSH) 0.04 uIU/mL (0.358-3.74)
== END | disposition home or self-care (01) ==
LOC: BIMLAB 12:11
PROVIDERS: PCP Internal Medicine; Referring Provider Nurse Practitioner; Visit Provider Nurse Practitioner
DX: R06.09 Other forms of dyspnea (principal); N18.4 Chronic kidney disease, stage 4 (severe); R53.83 Other fatigue
CPT/HCPCS: 36415; 80053; 82306; 83880; 84443

== ENCOUNTER 2024-04-21 13:00 | Outpatient (RCR) | payer MEDICARE, SELFPAY ==
[2024-03-09 08:14] VITALS: BMI 36.0
--- NOTE | 2024-04-07 05:20 | CR.ITP_ITS ---
Exercise - Initial Assessment Visit Session #:: 12 Comments:: 100% compliance to date! Physician Prescribed Exercise Modalities: SciFit Stepper and SciFit Pro-II Ergometer Nutrition - Initial Assessment Weight Mgt (Other Care) Height: 5 ft 2 in Weight:: 194 lb BMI: 35.4 Psychosocial - Initial Assess Target Goals Target Goals Referral to Behavioral Health PS - Interventions: Yes: Attend Stress Management Classes and No: Referral to Behavioral Health if PHQ-9 score >9:, No: Referral to [facility] and No: Referral to Physician if PHQ-9 if score is 5-9: Patient Health Questionnaire PHQ-9 Screening 30-Day Re-eval Assessment: 1. Little interest or pleasure in doing things: Not at all 2. Feeling down, depressed, or hopeless: Not at all 3. Trouble falling or staying asleep, or sleeping too much: Several days 4. Feeling tired or having little energy: Several days 5. Poor appetite or overeating: Not at all 6. Feeling bad about yourself -- or that you are a failure or have let yourself or your family down: Not at all 7. Trouble concentrating on things, such as reading the newspaper or watching television: Not at all 8. Moving or speaking so slowly that other people could have noticed. Or the opposite - being so fidgety or restless that you have been moving around a lot more than usual: Not at all 9. Thoughts that you would be better off , or of hurting yourself in some way: Not at all How difficult have these problems made it for you to do your work, take care of things at home, or get along with other people?: Not difficult at all Total Score: 2 Self-Efficacy 6-Item Scale 30-Day Re-eval Assessment: We would like to know how confident you are in doing certain activities. Please select your confidence level for: Fatigue Select Number: 8 Physical Discomfort or Pain Select Number: 8 Emotional Distress Select Number: 9 Other Symptoms or Health Problems Select Number: 9 Different Tasks and Activities Select Number: 8 Medication Select Number: 8 Total Score:: 8 Nutrition Survey Nutrition Survey Instructions Scoring Instructions Exercise - 30-day Assessment Visit Date of Eval: 04/07/24 Session #:: 12 Comments:: 100% compliance to date! Physician Prescribed Exercise Modalities: SciFit Stepper and SciFit Pro-II Ergometer Frequency: 3x/week for 12 weeks [36 sessions] Intensity: 60-80% of age predicted maximum heart rate reserve Duration: 30 - 45 minutes Current METSs:: 2.5 limited by bad knee Target Heart Rate:: 89-116 Current RPE:: 12 Maximum Excercise HR:: 84 Resting Blood Pressure: 108/72 Maximum Exercise Blood Pressure: 148/82 EKG Type: Atrial paced prolonged AV conduction, BBB and rare PVCs. Current Physical Activity or Exercising minutes: 35:32 Outcomes & Goals Goals:: Verbalizes understanding of THR, RPE & goal METS by session 6, Documents in home exercise log/reports 30 min aerobic 5 day/wk by DC and Demonstrates accurate pulse taking by DC Intervention & Plan Exercise Program Goals: Instruct on personal THR & RPE, Instruct on MET level & personal MET goal, Show patient to take own pulse /validate performance until accurate and Instruct on home exercise 30-day Reassessments 30 day Reassessments:: Met Physical Activity Home Exercise Physical Activity - Home Exercise: Safe Exercise, Warm-up, Self-monitoring, Cool-Down, Home Exercise > 30 min Daily and Sitting Time <3 hours/daily Outcomes & Goals Outcomes/Goals: Demonstrates correct Warm-up/exercise Cool-Down (S3) if = 2.5 METs, Verbalizes symptoms of exercise intolerance by Session 3 (S3) and Demonstrate safe equipment use (S3) & follows exercise prescrition (6) Intervention & Plan Plan/Intervention: Instruct warm-up & cool-down if exercising at > 2 METs, Instruct on symptoms of exercise intolerance & actions to take, Instruct & monitor on saf and Assess intial functional capacity & safety risk 30-day Reassessments 30 day Reassessments:: Met Exercise - 60-day Assessment Physician Prescribed Exercise Modalities: SciFit Stepper and SciFit Pro-II Ergometer Exercise - 90-day Assessment Physician Prescribed Exercise Modalities: SciFit Stepper and SciFit Pro-II Ergometer Exercise - Final/Discharge Physician Prescribed Exercise Modalities: SciFit Stepper and SciFit Pro-II Ergometer Nutrition - 30-Day Assessment Program Goals Nutrition Program Goals Patient has diagnosis of Hyperlipidemia (ICD E78)?: Yes Visit Date of Eval: 04/07/24 Session #:: 12 Cholesterol/Lipids (Other Core Measures) Determine presence & major risk factors that modify LDL goal: Hypertension or hypertensive medication and Age men > 45 years; women >/= 55 years Outcomes/Goals: Pt IDs own risk factors & lifestyle modifications by Session 10, Verbalizes symptoms of angina & response by session 3. and Pt independently manages Intervention/Plan: Instruct on personal lipid levels & lipid goals/NCEP guidelines and Instruct on cholesterol Referral to dietitian:: Yes 30-day Reassessments:: Progressing Diabetes (Other Core Measures) Diabetes Type: Diagnosis Type II ICD-10 E11 Insulin dependent injection/pump?: No Non-Insulin Dependent?: No Do you monitor your blood sugar at home?: No Referral to Diabetic Clinic:: Yes Outcomes/Goals:: Able to state symptoms of, Able to state and Able to state Intervention/Plan:: Instruct on and Instruct on 30-day Reassessments:: Progressing Weight Mgt (Other Care) Not Applicable: No Height: 5 ft 2 in Weight:: 194 lb BMI: 35.4 Diagnosis Overweight/Obesity BMI> 30% ICD-10 E66: Yes Diagnosis High BMI/Morbid Obesity BMI> 35% ICD-10 Z68: Yes Outcomes/Goals: Pt sets, maintains & shows weight loss goal & trend during rehab Intervention/Plan: Instruct on ideal BMI & set weight loss goal w/patient, Assist pt to ID & incorporate diet changes for weight loss by S9, Refer to Structured Weight Loss program as appropriate and Encourage goal of using 250- 300dcal per session for weight loss 30 day Reassessments:: Progressing Healthy Eating Habits Will attend diet classes:: Yes Outcomes/Goals:: Consume diet rich in vegs,fruits,whole grain/high fiber,fish,lean meat and Limit sat/trans fats,cholesterol & added salts & sugars Intervention/Plan:: Assess current eating habits 30-day Reassessments:: Progressing Education Gave educational materials for:: Relate diabetes to coronary artery disease and Healthy eating Nutrition - 60-Day Assessment Weight Mgt (Other Care) Height: 5 ft 2 in Weight:: 194 lb BMI: 35.4 Core - 30-Day Assessment Visit Date of Eval: 04/07/24 Session #:: 12 Medication Compliance Preventative Medication(s):: Aspirin, Statin/lipid, Beta ricarda and Eliquis H/O mental health issues: depression, anxiety, or addiction?: No Doesn?t believe in the benefits of treatment?: No Believes medications are unnecessary or harmful?: No Has a concern about medication side effects?: No Expresses concern over the cost of medications?: No Outcomes/Goals: Verbalizes medications,desired effect & common side effects @ DC, Pt self-reports following medication regimen and Keeps card in wallet w/medications listed by DC Interventions/plans: Instruct on medication effects & side effects and Instruct importance of taking meds as ordered & assist problem solving 30-day Reassessments:: Met Tobacco Use Tobacco Use: Non-smoker Hypertension Hypertension Diagnosis:: Hypertension ICD-10 I10 Resting Blood Pressure:: 108/72 [place] [employer] Hypertension Guidelines Peak Exercise Blood Pressure:: 148/82 Outcomes/Goals: Able to verbalize/achieve optimal blood pressure <130/80 and Incorporates diet changes & exercise for blood pressure control by DC Interventions/plan: Instruct on optimal blood pressure, hypertension & medications and Instruct on effects of sodium, alcohol, stress, exercise &hypertension 30 day Reassessments:: Met Tobacco Cessation Referral Smoking Cessation Referral:: No Individual Education/Counseling:: No Education Schedule Given:: Yes Psychosocial - 30-Day Assess VIsit Date of Eval: 04/07/24 Session #:: 12 Not Applicable: Yes History of previous Mental disease:: No Target Goals Target Goals Psychosocial Test Tool Used:: PHQ-9 Questionnaire phq-9 Severity Referral to Behavioral Health PS - Interventions: Yes: Attend Stress Management Classes and No: Referral to Behavioral Health if PHQ-9 score >9:, No: Referral to [facility] and No: Referral to Physician if PHQ-9 if score is 5-9: Outcomes/Goals: See list Psychosocial Outcomes/Goals:: ID's personal stressors & 2 strategies to manage stress by discharge Intervention/Plan: See List Interventions/Plan:: Instruct/assist pt to develop coping & personal stress Mgt strategies, Instruct patient to recognize signs & symptoms of depression and Instruct patient to recog 30-day Reassessments: 30 day Reassessments:: Met Psychosocial - 60-Day Assess Target Goals Target Goals Referral to Behavioral Health PS - Interventions: Yes: Attend Stress Management Classes and No: Referral to Behavioral Health if PHQ-9 score >9:, No: Referral to [facility] and No: Referral to Physician if PHQ-9 if score is 5-9: Outcomes/Goals: See list Psychosocial Outcomes/Goals:: ID's personal stressors & 2 strategies to manage stress by discharge Psychosocial - 90-Day Assess Target Goals Target Goals Referral to Behavioral Health PS - Interventions: Yes: Attend Stress Management Classes and No: Referral to Behavioral Health if PHQ-9 score >9:, No: Referral to [facility] and No: Referral to Physician if PHQ-9 if score is 5-9: Psychosocial - Final Assessmen Target Goals Target Goals Referral to Behavioral Health PS - Interventions: Yes: Attend Stress Management Classes and No: Referral to Behavioral Health if PHQ-9 score >9:, No: Referral to [facility] and No: Referral to Physician if PHQ-9 if score is 5-9: Nutrition - 90-Day Assessment Weight Mgt (Other Care) Height: 5 ft 2 in Weight:: 194 lb BMI: 35.4 Nutrition - Final Assessment Weight Mgt (Other Care) Height: 5 ft 2 in Weight:: 194 lb BMI: 35.4
[2024-04-07 05:29] VITALS: BP 108/72; BMI 35.4
== END 2024-04-28 23:59 ==
LOC: CR 13:00
PROVIDERS: PCP Internal Medicine
DX: Z95.2 Presence of prosthetic heart valve (principal)
CPT/HCPCS: 93798

== ENCOUNTER 2024-05-24 13:21 | Outpatient (RCR) | payer MEDICARE, SELFPAY ==
[2024-04-07 05:29] VITALS: BMI 35.4
[2024-04-29 00:49] VITALS: BP 108/72
--- NOTE | 2024-05-10 07:11 | PCM.CR.ITP ---
Psychosocial - Initial Assess Target Goals Target Goals Nutrition Survey Nutrition Survey Instructions Scoring Instructions Exercise - 60-day Assessment Visit Date of Eval: 05/10/24 Session #:: 18 Comments:: Pt is on med hold. Pt is to have a heart cath due to increased SOB. Psychosocial - 30-Day Assess Target Goals Target Goals Psychosocial - 60-Day Assess Target Goals Target Goals Psychosocial - 90-Day Assess Target Goals Target Goals Psychosocial - Final Assessmen Target Goals Target Goals
== END 2024-05-29 23:59 ==
LOC: CR 13:21
PROVIDERS: PCP Internal Medicine
DX: Z95.2 Presence of prosthetic heart valve (principal)

== ENCOUNTER → 2024-06-25 | Outpatient (CLI) | payer MEDICARE, SELFPAY ==
[2024-04-07 05:29] VITALS: BMI 35.4
== END | disposition home or self-care (01) ==
LOC: BIMLAB 13:55
PROVIDERS: PCP Internal Medicine; Referring Provider Nurse Practitioner; Visit Provider Nurse Practitioner
DX: E03.9 Hypothyroidism, unspecified (principal)
CPT/HCPCS: 36415; 84443

== ENCOUNTER → 2024-07-27 | Outpatient (CLI) | payer MEDICARE, SELFPAY ==
[2024-04-07 05:29] VITALS: BMI 35.4
--- NOTE | 2024-07-27 14:01 | BI_ITS ---
MAMMOGRAPHY - BILATERAL SCREENING REASON FOR EXAM: Female, 84 years old. Routine annual screening examination. PERTINENT HISTORY: Non-contributory. History of prior right stereotactic breast biopsy in left breast biopsy. TECHNIQUE: Digital bilateral breast bridgett (3D mammographic acquisition) in the CC and MLO projections. 2-D mediolateral oblique (MLO) and craniocaudad (CC) views of both breasts were obtained. CAD: Full Field Digital Mammography with Computer Added Detection was performed. COMPARISON: Comparison is made with prior study dated January 01, 2023. FINDINGS: Breast Composition: There are scattered areas of fibroglandular density. There are no dominant masses or suspicious calcifications. A tissue clip marker is seen in the anterior superior lateral retroareolar region of the right breast. A battery pack from a pacemaker device is seen in the left axillary region. No other significant abnormalities are identified. There has been no significant change since the prior study. BI/SCRN MAMM (CAD)W/BRIDGETT BILAT IMPRESSION: Stable bilateral screening mammogram. Yearly follow-up mammogram recommended. (A) ASSESSMENT CATEGORY: BIRADS Category 2: Benign. A letter regarding these results will be sent to the patient by the facility within 30 days. Approximately 10% of breast cancers are not detected by mammography. A normal mammogram should not delay biopsy of a clinically suspicious abnormality. [id number] Electronically Signed: Soren Cortez MD at 14:52 EDT ,
== END | disposition home or self-care (01) ==
LOC: OPBI 14:01
PROVIDERS: PCP Internal Medicine; Referring Provider Internal Medicine; Visit Provider Internal Medicine
DX: Z12.31 Encounter for screening mammogram for malignant neoplasm of breast (principal)
CPT/HCPCS: 77063; 77067

== ENCOUNTER → 2024-08-23 | Outpatient (CLI) | payer MEDICARE, SELFPAY ==
[2024-04-07 05:29] VITALS: BMI 35.4
== END | disposition home or self-care (01) ==
LOC: BIMLAB 12:11
PROVIDERS: PCP Internal Medicine; Referring Provider Internal Medicine; Visit Provider Internal Medicine
DX: E03.9 Hypothyroidism, unspecified (principal)
CPT/HCPCS: 36415; 84443

== ENCOUNTER → 2024-10-20 | Outpatient (CLI) | payer MEDICARE, SELFPAY ==
[2024-04-07 05:29] VITALS: BMI 35.4
--- NOTE | 2024-10-20 13:27 | BD_ITS ---
STUDY: DUAL ENERGY X-RAY ABSORPTIOMETRY / DXA REASON FOR EXAM: Female, 84 years old. Osteopenia TECHNIQUE: Bone Mineral Density (BMD) measurements of lumbar spine and bilateral hips were obtained. COMPARISON: Comparison is made with prior study dated September 18, 2021. FINDINGS: Lumbar Spine (L1-L4): g/cm2 (0.994) / T-score (-0.5) / Z-score (2.3) Findings are suggestive of normal bone density with a low fracture risk. Left Femur Total: g/cm2 (0.691) / T-score (-2.1) / Z-score (0.2) Left Femoral Neck: g/cm2 (0.513) / T-score (-3.0) / Z-score (-0.6) Right Femur Total: g/cm2 (0.708) / T-score (-1.9) / Z-score (0.4) Right Femoral Neck: g/cm2 (0.491) / T-score (-3.2) / Z-score (-0.8) The T-Scores on the most recent prior examination were: Lumbar Spine (L1-L4): There has been worsening of bone density since the previous examination. Left Femur Total: which represents a worsening of 6.4%. Right Femur Total: which represents a worsening of 12.4%. BD/Dexa Bone Density Study IMPRESSION: The patient is considered osteoporotic as outlined below according to World Phil Organization (WHO) criteria with a high fracture risk. There has been worsening of bone density since the previous examination. Reference Information: The T-score is the number of standard deviations above or below the standard which is normal for young adults at their peak bone mineral density. The World Health Organization (WHO) interprets the T-scores as follows: Above -1 Normal bone density Between -1 and -2.5 Osteopenia Equal to / or below -2.5 Osteoporosis As a practical clinical guideline, osteopenia may be graded as follows: Mild -1 through -1.5 Moderate -1.6 through -2.0 Severe -2.1 through -2.4 The Z-score is the number of standard deviations above or below age-matched controls. A Z-score of less than -1.5 would be considered abnormal. References: 1. NIH Osteoporosis and Related Bone Diseases www osteo.org 2. International Society for Clinical Densitometry www iscd.org 3. National Osteoporosis Foundation www nof.org Electronically Signed: Soren Cortez MD at 11:08 EST ,
== END | disposition home or self-care (01) ==
LOC: OPBD 13:21
PROVIDERS: PCP Internal Medicine; Referring Provider Internal Medicine; Visit Provider Internal Medicine
DX: Z78.0 Asymptomatic menopausal state (principal)
CPT/HCPCS: 77080

== ENCOUNTER → 2024-10-20 | Outpatient (CLI) | payer MEDICARE, SELFPAY ==
[2024-04-07 05:29] VITALS: BMI 35.4
[2024-10-20 14:30] LABS: Protein, Urine (Random) 14.7 mg/dL (<11.9); Protein:Creat Ratio 74 mg/g CRE (0-200)
[2024-10-20 14:39] LABS: Albumin, Serum 3.8 g/dL (3.2-5.0); BUN 61 mg/dL (7-18); BUN/Creat Ratio 28.6 RATIO (10-20); Calcium,Total 10.3 mg/dL (8.5-10.1); Chloride 109 mmol/L (98-107); Creatinine, Serum 2.13 mg/dL (0.55-1.02); EST Glomerular Filtration Rate 24 mL/min (>60); Est Glom Filt Rate - Afr Amer 28 mL/min (>60); Glucose 119 mg/dL (74-106); Phosphorus 3.9 mg/dL (2.5-4.9); Potassium 5.4 mmol/L (3.5-5.1); Sodium Level 137 mmol/L (136-145)
[2024-10-20 14:52] LABS: Cholesterol 169 mg/dL (200); High Density Lipoprotein 68 mg/dL; Triglycerides 62 mg/dL; Very Low Density Lipoprotein 12 mg/dL (5-40)
== END | disposition home or self-care (01) ==
PROVIDERS: PCP Internal Medicine; Referring Provider Internal Medicine Nephrology; Visit Provider Internal Medicine Nephrology
DX: E11.22 Type 2 diabetes mellitus with diabetic chronic kidney disease (principal); N18.32 Chronic kidney disease, stage 3b
CPT/HCPCS: 36415; 80061; 80069; 82570; 84156; 84443

== ENCOUNTER → 2024-10-27 | Outpatient (CLI) | payer MEDICARE, SELFPAY ==
[2024-04-07 05:29] VITALS: BMI 35.4
[2024-10-27 11:46] LABS: Potassium 5.4 mmol/L (3.5-5.1)
== END | disposition home or self-care (01) ==
LOC: POLAB3 10:23
PROVIDERS: PCP Internal Medicine; Visit Provider Internal Medicine Nephrology
DX: E87.5 Hyperkalemia (principal); M10.9 Gout, unspecified
CPT/HCPCS: 36415; 84132; 84550

== ENCOUNTER → 2024-11-01 | Outpatient (CLI) | payer MEDICARE, SELFPAY ==
[2024-04-07 05:29] VITALS: BMI 35.4
[2024-11-01 11:56] LABS: Potassium 4.7 mmol/L (3.5-5.1)
== END | disposition home or self-care (01) ==
LOC: LAB 11:09
PROVIDERS: PCP Internal Medicine; Referring Provider Internal Medicine Nephrology; Visit Provider Internal Medicine Nephrology
DX: E87.5 Hyperkalemia (principal)
CPT/HCPCS: 36415; 84132

== ENCOUNTER 2024-11-16 14:40 | Inpatient (IN) | payer MEDICARE, SELFPAY ==
[2024-04-07 05:29] VITALS: BMI 35.4
[2024-11-16 14:41] VITALS: BP 141/65; PULSE 58; RESP 16; TEMP 35.5; O2SAT 98
--- NOTE | 2024-11-16 15:53 | EX.ED.DYSGE1 ---
HPI History of Present Illness Chief Complaint: Abn Labs Informant: patient Onset/Context/Timing Onset: Days (5) Context: Gradual Onset Timing: Continuous Worsened by: Nothing Relieved by: Nothing Narrative Narrative: Patient presents with elevated potassium for the past 5 days. Patient had outpatient lab work drawn 4 days ago which showed an elevated potassium. Patient had repeat blood work drawn today which showed persistent elevated potassium. Patient was then referred to the emergency department. Patient denies any chest pain or palpitations. Patient states she does have some occasional shortness of breath. Patient denies any nausea or vomiting. Patient denies any fevers or chills. [facility] Medical History Aortic stenosis Breast calcification, right Anxiety Hypothyroidism Diabetes Kidney disease Sleep apnea Atrial fibrillation Secondary pulmonary arterial hypertension Sick sinus syndrome Chronic pericarditis with effusion Left bundle branch block (LBBB) Essential hypertension Bradycardia Physical debility Gout Glaucoma Chronic renal failure, stage 3a Osteoarthritis Diabetes mellitus, type 2 Pericardial effusion (08/23/20) LVH (left ventricular hypertrophy) Musculoskeletal back pain PAF (paroxysmal atrial fibrillation) Hemoptysis CLIFFORD (obstructive sleep apnea) Hypersomnolence Nonrheumatic aortic valve stenosis Carotid bruit HLD (hyperlipidemia) Abnormal cardiac enzyme level Hyperthyroidism Home Medications ?Medication ?Instructions ?Recorded ?Last Taken ?Type Oral Appliance #1 ea 03/19/22 Unknown Rx latanoprost 0.005 % eye drops 1 drp EACH EYE QHS Check with 03/28/22 11/15/24 History primary doctor [id number] 1 cap PO DAILY supplement 12/01/22 11/16/24 History oil 350 mg-400 mg capsule cholecalciferol (vitamin D3) 125 125 mcg PO DAILY #30 tabs 12/11/22 11/16/24 Rx mcg (5,000 unit) tablet ascorbic acid (vitamin C) 500 mg 500 mg PO DAILY 02/07/23 11/16/24 History capsule cranberry 500 mg capsule 500 mg PO DAILY 02/07/23 Unknown History vibegron 75 mg tablet 75 mg PO DAILY 02/07/23 11/16/24 History glimepiride 2 mg tablet 2 mg PO DAILY blood sugar #90 tabs 04/26/24 11/16/24 Rx doxazosin 4 mg tablet 4 mg PO QHS #90 tabs 05/17/24 11/15/24 Rx levothyroxine 100 mcg tablet 100 mcg PO DAILY #60 tabs 09/23/24 11/16/24 Rx carvedilol 25 mg tablet 25 mg PO BID #180 TABLETS 10/19/24 11/16/24 Rx amlodipine 10 mg tablet 10 mg PO DAILY 11/16/24 11/16/24 History apixaban 2.5 mg tablet (Eliquis) 2.5 mg PO BID 11/16/24 11/16/24 History atorvastatin 40 mg tablet 40 mg PO DAILY 11/16/24 11/16/24 History cinnamon bark 500 mg capsule 500 mg PO DAILY 11/16/24 11/16/24 History (Cinnamon) clopidogrel 75 mg tablet 75 mg PO DAILY 11/16/24 11/16/24 History finerenone 10 mg tablet (Kerendia) 10 mg PO DAILY 11/16/24 11/16/24 History isosorbide mononitrate 30 mg 30 mg PO DAILY 11/16/24 11/16/24 History tablet,extended release 24 hr olmesartan 40 mg tablet 40 mg PO DAILY 11/16/24 11/16/24 History pantoprazole 40 mg tablet,delayed 40 mg PO DAILY 11/16/24 11/16/24 History release Allergy/AdvReac Type Severity Reaction Status Date / Time benazepril (From Lotensin) Allergy Unknown Verified 11/16/24 14:41 Iodine and Iodide Containing Allergy Shortness Verified 11/16/24 14:41 Produc of breath meperidine (From Demerol) Allergy Unknown Verified 11/16/24 14:41 metformin (From Janumet) Allergy Pain in Verified 11/16/24 14:41 joints Penicillins Allergy Hives Verified 11/16/24 14:41 propoxyphene (From Darvon) Allergy Unknown Verified 11/16/24 14:41 shellfish derived Allergy Shortness Verified 11/16/24 14:41 of breath sitagliptin (From Janumet) Allergy Pain in Verified 11/16/24 14:41 joints spironolactone Allergy Unknown Verified 11/16/24 14:41 rivaroxaban (From Xarelto) AdvReac Severe PERICARDIAL Verified 11/16/24 14:41 EFFUSION adhesive AdvReac Unknown Unknown Verified 11/16/24 14:41 hydrochlorothiazide AdvReac NEEDS Verified 11/16/24 14:41 FOLLOW-UP lisinopril AdvReac NEEDS Verified 11/16/24 14:41 FOLLOW-UP metoprolol AdvReac Shortness Verified 11/16/24 14:41 of breath simvastatin AdvReac Pain in Verified 11/16/24 14:41 joints Family History Mother Cancer Uterine Thyroid disorder Father Cancer lung Hypertension Son Cancer esophageal Surgical History Heart valve replaced S/P TAVR (transcatheter aortic valve replacement) S/P skin biopsy History of permanent cardiac pacemaker placement (06/2018) 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 History of total hysterectomy History of tonsillectomy and adenoidectomy History of parathyroidectomy (2009) History of thyroidectomy, total (2009) Social History household members: spouse number of children: 2 current occupational status: retired current occupation: worked in the [employer] Smoking Status: Never smoker Electronic Cigarette Use: not used alcohol intake: never substance use type: does not use caffeine: No do you feel safe at home: Yes ROS ROS ED Constitutional Constitutional ED: Denies chills or fever(s) Eyes Eyes: Denies blurry vision or change in vision ENT ENT ED: Reports rhinorrhea; Denies sore throat Cardiovascular Cardiovascular: Denies chest pain or palpitations Respiratory/Chest Respiratory/Chest: Reports dyspnea; Denies cough Gastrointestinal Gastrointestinal: Denies nausea or vomiting Genitourinary Genitourinary ED: Denies dysuria or hematuria Musculoskeletal Musculoskeletal: Reports back pain; Denies neck pain Integumentary Denies abscess or rash Neurologic Neurologic: Denies headache(s) or weakness Allergic/Immunologic Allergic/Immunologic ED: Denies mouth swelling or urticaria EXAM Physical Exam Const Vital Signs: 11/16/24 14:41 11/16/24 16:37 11/16/24 16:39 Temperature 96 F L Temperature Source Temporal Pulse Rate 58 L 55 L Respiratory Rate 16 12 Respiratory Effort Normal Non-Labored Respiratory Pattern Normal Blood Pressure 141/65 H 133/64 H Blood Pressure Mean 90 87 Pulse Ox 98 97 Oxygen Delivery Method Room Air Room Air 11/16/24 17:44 Temperature Temperature Source Pulse Rate 55 L Respiratory Rate 13 Respiratory Effort Respiratory Pattern Blood Pressure 119/58 L Blood Pressure Mean 78 Pulse Ox 96 Oxygen Delivery Method Room Air Positive well nourished and well developed General Appearance ED: well developed and NAD HEENT Reports moist mucous membranes Neck supple and no JVD Resp normal respiratory effort and clear to auscultation bilaterally Cardio regular rate and regular rhythm GI non-tender and non-distended Palpation: soft Neuro oriented x3, CN's II-XII intact bilaterally and no sensory deficits noted Sensorium / Orientation: alert Motor Exam: strength 5/5 throughout Psych mental status grossly normal MDM MDM MDM Narrative Medical decision making narrative: Differential diagnosis includes hyperkalemia, laboratory error, acute on chronic kidney disease, cardiac dysrhythmia, and cardiac ischemia. EKG will be obtained to assess for cardiac dysrhythmia and cardiac ischemia. CBC will be obtained to assess for leukocytosis and anemia. Basic metabolic profile will be obtained to assess for electrolyte abnormality renal function. High-sensitivity troponin will be obtained to assess for cardiac ischemia. Lab Data Attestation: I reviewed the patient's lab results. Lab results narrative: CBC was reviewed. There is a mild anemia with a hemoglobin of 9.6 and hematocrit 31.2. Platelets were normal. Basic metabolic profile was reviewed. Potassium was elevated at 6.5. BUN was elevated at 54 and creatinine was 2.08. These are consistent with previous results. Glucose was elevated at 272. High-sensitivity troponin was reviewed and was normal at 13. Labs: Laboratory Results - last 24 hr 11/16/24 16:35 WBC 5.5 RBC 3.20 L Hgb 9.6 L Hct 31.2 L MCV 97.5 MCH 30.0 MCHC 30.8 L RDW Std Deviation 49.1 H RDW Coeff of Ignacia 13.7 Plt Count 191 MPV 9.9 Immature Gran % (Auto) 0.500 Neut % (Auto) 65.1 Lymph % (Auto) 22.3 Jerome % (Auto) 9.7 Eos % (Auto) 2.2 Baso % (Auto) 0.2 Absolute Neuts (auto) 3.6 Absolute Lymphs (auto) 1.22 Nucleated RBC % 0 Sodium 135 L Potassium 6.5 H* Chloride 108 H Carbon Dioxide 20.0 L Anion Gap 8 BUN 54 H Creatinine 2.08 H Estim Creat Clear Calc 20.76 Est GFR (MDRD) Af Amer 29 L Est GFR (MDRD) Non-Af 24 L BUN/Creatinine Ratio 26.0 H Glucose 272 H Calcium 9.8 Troponin I High Sens 13 EKG Initial EKG: Attestation: I personally reviewed and interpreted this EKG as follows: Interpretation: Paced (Atrial paced rhythm with a rate of 55) and LBBB Comments: EKG was obtained. On my independent interpretation, it shows atrial paced rhythm with a rate of 55. OH interval was 310 ms. QRS oh was 170 ms. QTc interval is 455 ms. There is left axis deviation noted. There is a left bundle branch block pattern noted. There are no hyperacute T wave changes noted. Prior EKG tracings: available for review Prior: Unchanged (11/21/2023) Management Discussion w/another healthcare provider: Hospitalist Treatment and Re-Evaluation :: Patient was advised of her findings. Patient was given calcium gluconate, insulin, and dextrose. Patient was advised of the need for hospitalization for further evaluation. Patient is agreeable with this. Case was discussed hospitalist. She will admit the patient to her service. Patient understood and was agreeable with the plan. All questions were answered. Discharge Plan Triage Chief Complaint: Abn Labs ED Provider: Ruben Brar Dx/Rx/DC Orders Clinical Impression: Hyperkalemia, Left bundle branch block (LBBB), Stage 4 chronic kidney disease Prescriptions: No Action (DME) Oral Appliance See Rx Instructions .ROUTE .MEDSUPPLY Qty: 1 0RF Rx Instructions: As directed vibegron 75 mg tablet 75 mg PO DAILY cranberry 500 mg capsule 500 mg PO DAILY Rx Instructions: administer with meals ascorbic acid (vitamin C) 500 mg capsule 500 mg PO DAILY latanoprost 0.005 % Drops 1 drp EACH EYE QHS [id number] oil 350-400 mg Capsule 1 cap PO DAILY amlodipine 10 mg tablet 10 mg PO DAILY isosorbide mononitrate 30 mg tablet extended release 24 hr 30 mg PO DAILY clopidogrel 75 mg tablet 75 mg PO DAILY olmesartan 40 mg tablet 40 mg PO DAILY cinnamon bark [Cinnamon] 500 mg capsule 500 mg PO DAILY Kerendia 10 mg tablet 10 mg PO DAILY Eliquis 2.5 mg tablet 2.5 mg PO BID atorvastatin 40 mg tablet 40 mg PO DAILY pantoprazole 40 mg tablet,delayed release (DR/EC) 40 mg PO DAILY cholecalciferol (vitamin D3) 125 mcg (5,000 unit) tablet 125 mcg PO DAILY Qty: 30 0RF glimepiride 2 mg tablet 2 mg PO DAILY Qty: 90 1RF doxazosin 4 mg tablet 4 mg PO QHS Qty: 90 1RF levothyroxine 100 mcg tablet 100 mcg PO DAILY Qty: 60 0RF carvedilol 25 mg tablet 25 mg PO BID Qty: 180 1RF Primary Care Provider: Chiara Triana Referrals: Chiara Triana MD [Primary Care Provider] - Print Language: Prydeinig Disposition Disposition: Acute Care Hospital [facility]
[2024-11-16 16:34] VITALS: BMI 39.9
[2024-11-16 16:37] VITALS: BP 133/64; PULSE 55; RESP 12; O2SAT 97
[2024-11-16 16:52] LABS: Absolute Lymphocyte Count 1.22 X10^3/uL (0.83-4.51); Absolute Neutrophil Count 3.6 X10^3/uL (2.0-7.7); Basophil# 0.01 X10^3/uL; Basophil% 0.2 % (0-1); Eosinophil# 0.12 X10^3/uL; Eosinophils% 2.2 % (0-5); Hematocrit 31.2 % (37-47); Hemoglobin 9.6 g/dL (12.0-15.0); Lymphocyte # 1.22 X10^3/ul (0.83-4.51); Lymphocyte % 22.3 % (19-41); Mean Corp Hgb Conc 30.8 g/dL (32-36); Mean Corpuscular Volume 97.5 fL (81-99); Mean Platelet Vol. 9.9 fl (6.2-12.0); Monocyte# 0.53 X10^3/uL; Monocyte% 9.7 % (0-10); NRBC Flagged by Analyzer 0 % (0-5); Neutrophil # 3.57 X10^3/uL (2.7-7.7); Neutrophil % 65.1 % (47-70); Platelet Count 191 K/mm3 (150-450); RBC Distribution Width CV 13.7 % (11.6-14.6); RBC Distribution Width SD 49.1 fl (35.1-43.9); White Blood Count 5.5 K/mm3 (4.4-11.0)
[2024-11-16 17:19] LABS: Anion Gap 8 (5-15); BUN 54 mg/dL (7-18); Calcium,Total 9.8 mg/dL (8.5-10.1); Chloride 108 mmol/L (98-107); Creatinine, Serum 2.08 mg/dL (0.55-1.02); EST Glomerular Filtration Rate 24 mL/min (>60); Est Glom Filt Rate - Afr Amer 29 mL/min (>60); Estimated Creatinine Clearance 20.76 ml/min; Glucose 272 mg/dL (74-106); Potassium 6.5 mmol/L (3.5-5.1); Sodium Level 135 mmol/L (136-145); Troponin-I HS 13 pg/mL (3.0-54.0)
[2024-11-16] MEDS: Dextrose 10%-Water 250 ML 999 ML IV (17:32)
[2024-11-16 17:44] VITALS: BP 119/58; PULSE 55; RESP 13; O2SAT 96
[2024-11-16] MEDS: Insulin Lispro 10 UNIT in Syringe 0 ML 6 UNIT IV (17:44)
[2024-11-16] MEDS: Calcium Gluconate IV 3 GM in Syringe 1 EACH IV (17:44)
--- NOTE | 2024-11-16 19:50 | PCM.HP.STD ---
HPI - General General Date of Admission: 11/16/24 Date of Service: 11/16/24 Chief Complaint: Abnormal labs, elevated K. HPI Narrative The patient is an 84 y/o F w/ PMHx: Chronic anemia, Morbid obesity, CLIFFORD, PAF, Chronic bradycardia, Sick Sinus Syndrome s/p pacemaker status, Anxiety and Depression, Diabetes mellitus type II, Valvular heart disease s/p TAVR, Hypothyroidism s/p thyroidectomy/parathyroidectomy, CKD stage IIIa following with Dr. Ros Madera, Chart reported history of Chronic pericarditis with effusion who presents to the [facility] ED on 11/16/2024 with history of persistently elevated potassium for the last 5 days with outpatient lab work drawn 4 days previous to this demonstrating elevation with repeat lab work today which continued to be elevated prompting referral to ED for evaluation. Patient denied any significant symptoms including chest discomfort, palpitations, nausea or emesis. She does state chronically she occasionally does have dyspnea primarily with exertion but this is unchanged. She denies any recent URI type symptoms. Wrkup in the ED included T96, heart rate 58, BP 141/65, respiratory rate 16, 90% on room air with most recent repeat vitals heart rate 55, BP 119/58, respiratory rate 13, 96% room air, CBC with WBC 5.5, hemoglobin 9.6, MCV 97.5, platelet 191 without marked shift, BMP with sodium 135, potassium 6.5 with no evidence of any hemolysis, chloride 108, carbon dioxide, anion gap 8, BUN/Liza 54/2.08, glucose 272, troponin 13, EKG w/ atrial paced with left bundle branch block pattern similar to previous with no acute evidence of ischemia or significantly peaked T waves. In the ED patient administered calcium gluconate, dextrose, insulin 10 units IV x 1 per ED. [facility] Medical History Aortic stenosis Breast calcification, right Anxiety Hypothyroidism Diabetes Kidney disease Sleep apnea Atrial fibrillation Secondary pulmonary arterial hypertension Sick sinus syndrome Chronic pericarditis with effusion Left bundle branch block (LBBB) Essential hypertension Bradycardia Physical debility Gout Glaucoma Chronic renal failure, stage 3a Osteoarthritis Diabetes mellitus, type 2 Pericardial effusion (08/23/20) LVH (left ventricular hypertrophy) Musculoskeletal back pain PAF (paroxysmal atrial fibrillation) Hemoptysis CLIFFORD (obstructive sleep apnea) Hypersomnolence Nonrheumatic aortic valve stenosis Carotid bruit HLD (hyperlipidemia) Abnormal cardiac enzyme level Hyperthyroidism Home Medications ?Medication ?Instructions ?Recorded ?Last Taken ?Type Oral Appliance #1 ea 03/19/22 Unknown Rx latanoprost 0.005 % eye drops 1 drp EACH EYE QHS Check with 03/28/22 11/15/24 History primary doctor [id number] 1 cap PO DAILY supplement 12/01/22 11/16/24 History oil 350 mg-400 mg capsule cholecalciferol (vitamin D3) 125 125 mcg PO DAILY #30 tabs 12/11/22 11/16/24 Rx mcg (5,000 unit) tablet ascorbic acid (vitamin C) 500 mg 500 mg PO DAILY 02/07/23 11/16/24 History capsule cranberry 500 mg capsule 500 mg PO DAILY 02/07/23 Unknown History vibegron 75 mg tablet 75 mg PO DAILY 02/07/23 11/16/24 History glimepiride 2 mg tablet 2 mg PO DAILY blood sugar #90 tabs 04/26/24 11/16/24 Rx doxazosin 4 mg tablet 4 mg PO QHS #90 tabs 05/17/24 11/15/24 Rx levothyroxine 100 mcg tablet 100 mcg PO DAILY #60 tabs 09/23/24 11/16/24 Rx carvedilol 25 mg tablet 25 mg PO BID #180 TABLETS 10/19/24 11/16/24 Rx amlodipine 10 mg tablet 10 mg PO DAILY 11/16/24 11/16/24 History apixaban 2.5 mg tablet (Eliquis) 2.5 mg PO BID 11/16/24 11/16/24 History atorvastatin 40 mg tablet 40 mg PO DAILY 11/16/24 11/16/24 History cinnamon bark 500 mg capsule 500 mg PO DAILY 11/16/24 11/16/24 History (Cinnamon) clopidogrel 75 mg tablet 75 mg PO DAILY 11/16/24 11/16/24 History finerenone 10 mg tablet (Kerendia) 10 mg PO DAILY 11/16/24 11/16/24 History isosorbide mononitrate 30 mg 30 mg PO DAILY 11/16/24 11/16/24 History tablet,extended release 24 hr olmesartan 40 mg tablet 40 mg PO DAILY 11/16/24 11/16/24 History pantoprazole 40 mg tablet,delayed 40 mg PO DAILY 11/16/24 11/16/24 History release Allergy/AdvReac Type Severity Reaction Status Date / Time benazepril (From Lotensin) Allergy Unknown Verified 11/16/24 14:41 Iodine and Iodide Containing Allergy Shortness Verified 11/16/24 14:41 Produc of breath meperidine (From Demerol) Allergy Unknown Verified 11/16/24 14:41 metformin (From Janumet) Allergy Pain in Verified 11/16/24 14:41 joints Penicillins Allergy Hives Verified 11/16/24 14:41 propoxyphene (From Darvon) Allergy Unknown Verified 11/16/24 14:41 shellfish derived Allergy Shortness Verified 11/16/24 14:41 of breath sitagliptin (From Janumet) Allergy Pain in Verified 11/16/24 14:41 joints spironolactone Allergy Unknown Verified 11/16/24 14:41 rivaroxaban (From Xarelto) AdvReac Severe PERICARDIAL Verified 11/16/24 14:41 EFFUSION adhesive AdvReac Unknown Unknown Verified 11/16/24 14:41 hydrochlorothiazide AdvReac NEEDS Verified 11/16/24 14:41 FOLLOW-UP lisinopril AdvReac NEEDS Verified 11/16/24 14:41 FOLLOW-UP metoprolol AdvReac Shortness Verified 11/16/24 14:41 of breath simvastatin AdvReac Pain in Verified 11/16/24 14:41 joints Family History Mother Cancer Uterine Thyroid disorder Father Cancer lung Hypertension Son Cancer esophageal Surgical History Heart valve replaced S/P TAVR (transcatheter aortic valve replacement) S/P skin biopsy History of permanent cardiac pacemaker placement (06/2018) 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 HEENT: Eyes: No visual loss, blurred vision, double vision or yellow sclerae. Ears, Nose, Throat: No hearing loss, sneezing, congestion, runny nose or sore throat. SKIN: No rash or itching, lesions, wounds. CARDIOVASCULAR: No chest pain, chest pressure or chest discomfort, palpitations, edema, orthopnea, syncopal events. RESPIRATORY: + Chronic dyspnea, stable, worse with exertion. No cough or sputum, wheezing, hemoptysis. GASTROINTESTINAL: No anorexia, nausea, vomiting or diarrhea, abdominal pain, melena, BRBPR. GENITOURINARY: No dysuria, frequency, urgency or retention. NEUROLOGICAL: No headache, dizziness, syncope, paralysis, ataxia, numbness or tingling in the extremities, focal weakness, change in bowel or bladder control, seizure. MUSCULOSKELETAL: + Muscle, back pain, joint pain or stiffness. HEMATOLOGIC: + Chronic anemia, easy bleeding/bruising. LYMPHATICS: No enlarged nodes. No history of splenectomy. PSYCHIATRIC: + History of anxiety and depression. ENDOCRINOLOGIC: No reports of sweating, cold or heat intolerance. No polyuria or polydipsia. ALLERGIES: No history of asthma, hives, eczema or rhinitis. Vital Signs Vital Signs Vital Signs: 11/16/24 14:41 11/16/24 16:37 11/16/24 16:39 Temperature 96 F L Temperature Source Temporal Pulse Rate 58 L 55 L Respiratory Rate 16 12 Respiratory Effort Normal Non-Labored Respiratory Pattern Normal Blood Pressure 141/65 H 133/64 H Blood Pressure Mean 90 87 Pulse Ox 98 97 Oxygen Delivery Method Room Air Room Air 11/16/24 17:44 Temperature Temperature Source Pulse Rate 55 L Respiratory Rate 13 Respiratory Effort Respiratory Pattern Blood Pressure 119/58 L Blood Pressure Mean 78 Pulse Ox 96 Oxygen Delivery Method Room Air Weight Weight: 203 lb 4.259 oz Body Mass Index (BMI) 39.9 Physical Exam Narrative Physical Examination: General: Awake, alert, oriented x 3 and cooperative, seated upright in the ED bed in no apparent distress, denies any complaints or symptoms at this time. Skin: Normal color, normal turgor, no icterus, no cyanosis except occasional stage ecchymoses including when she points out to the left abdomen which is staged with no concerning findings. HEENT: AT/NC, EOMI, PERRLA, MMM, no carotid bruits or JVD note; however, thickened neck makes evaluation difficult d. Lungs: CTA bilaterally, moderate effort, mild decrease BL bases, no rales, ronchi or wheezing. Heart: Paced; no gallop, rub audible, status post TAVR. Abdomen: Soft, morbidly obese, NTTP, distant BS, no obvious distention or HSM but habitus makes evaluation difficult. Extremities: No cyanosis, no clubbing, mild ankle nonpitting edema, chronic. Neurological: Patient awake, alert, oriented as noted, cognitive function intact; pupils equally reactive to light and accommodation, cranial nerves grossly normal, moving all 4 extremities, no focal deficits, strength preserved. Psychiatric: Affect appears normal, no acute evidence of depressive or anxiety feelings but does have underlying history. Results Lab / Micro Data 11/16/24 16:35 11/16/24 16:35 Labs: Laboratory Results - last 24 hr 11/16/24 16:35: WBC 5.5, RBC 3.20 L, Hgb 9.6 L, Hct 31.2 L, MCV 97.5, MCH 30.0, MCHC 30.8 L, RDW Std Deviation 49.1 H, RDW Coeff of Ignacia 13.7, Plt Count 191, MPV 9.9, Immature Gran % (Auto) 0.500, Neut % (Auto) 65.1, Lymph % (Auto) 22.3, Pratt % (Auto) 9.7, Eos % (Auto) 2.2, Baso % (Auto) 0.2, Absolute Neuts (auto) 3.6, Absolute Lymphs (auto) 1.22, Nucleated RBC % 0, Sodium 135 L, Potassium 6.5 H*, Chloride 108 H, Carbon Dioxide 20.0 L, Anion Gap 8, BUN 54 H, Creatinine 2.08 H, Estim Creat Clear Calc 20.76, Est GFR (MDRD) Af Amer 29 L, Est GFR (MDRD) Non-Af 24 L, BUN/Creatinine Ratio 26.0 H, Glucose 272 H, Calcium 9.8, Troponin I High Sens 13 Assessment & Plan Assessment/Plan (1) Hyperkalemia: PLAN: Plan The patient is an 84 y/o F w/ PMHx: Chronic anemia, Morbid obesity, CLIFFORD, PAF, Chronic bradycardia, Sick Sinus Syndrome s/p pacemaker status, Anxiety and Depression, Diabetes mellitus type II, Valvular heart disease s/p TAVR, Hypothyroidism s/p thyroidectomy/parathyroidectomy, CKD stage IIIa following with Dr. Ros Madera, Chart reported history of Chronic pericarditis with effusion who presents to the [facility] ED on 11/16/2024 with history of persistently elevated potassium for the last 5 days with outpatient lab work drawn 4 days previous to this demonstrating elevation with repeat lab work today which continued to be elevated prompting referral to ED for evaluation. #1. Acute hyperkalemia: Admission potassium 6.5 in the ED with no evidence of any hemolysis, status post calcium gluconate, dextrose, insulin 10 units IV x 1 per ED. Will admit to PCU, maintain on telemetry monitoring, in addition will administer Kayexalate dose and will continue to trend BMP serially every 2 hours with repeat hyperkalemic protocol if remains elevated, if ongoing and persistent low threshold to involve nephrology immediately (Dr. Ros Madera), continue also to hydrate, magnesium phosphorus levels requested. Temporally holding on losartan as well as patient finerenone. #2. Acute on Chronic Anemia, Normocytic, unclear etiology: Admission hemoglobin 9.6, MCV 97.5, previous hemoglobin 11/21/2023 at 13.3 but has vacillated however never less than 11 per record, will obtain iron panel, ferritin, guaiac, vitamin B12 and folic acid to be cautious, continue to trend CBC, potentially related with her worsening renal disease in part. #3. Chronic Kidney Disease Stage IIIa: Admission BUN/Cr 54/2.08, GFR 24, GFR 24 and her lab review has vacillated between 20 and 30 range, baseline renal function 1.4-2.2, has vacillated, most recently 10/20/2024 creatinine 2.13 at that time, repeat BMP in AM. Magnesium and phosphorus levels requested. #4. Valvular heart disease: Status post TAVR, most recent noted echocardiogram in the system from [facility] 01/29/2023 with LV mildly dilated, LV systolic function mild decreased, EF 54?5%, RV normal size, RV systolic function normal, LA severely dilated, RA dilated, moderate tricuspid valve regurgitation, moderately severe aortic valve stenosis caused by restricted opening thus unfortunately do not have any echocardiograms following intervention with TAVR (02/09/24). #5. Diabetes mellitus type II: Hold oral home regimen, ADA diet, accu checks w/ ISS. #6. PAF: We will continue patient Eliquis as well as Coreg home regimen. #7. Anxiety and depression: Per current list does not appear to be on regimen, defer to outpatient. #8. Sick sinus syndrome: Status post permanent pacemaker placement. #9. Hypothyroidism: Status post thyroidectomy/parathyroidectomy, continue home levothyroxine regimen. #10. Hypertension: Continue home regimen including Coreg, amlodipine, isosorbide, temporarily hold olmesartan, doxazosin, PRN hydralazine. #11. Hyperlipidemia: Continue patient on statin therapy. #12. Morbid Obesity: Weight loss and lifestyle changes encouraged. #13. CLIFFORD: BIPAP nightly. #14. DVT prophylaxis: Will continue patient home apixaban regimen. #15. CODE status: Patient NATE was her son but he passed recently and she does not have another person assigned yet but notes she would want her granddaughter Serene Ordaz and living will is currently in place. Discussed CODE status at length including difference between FULL code, DNR-CCA and DNR-CC status. Following discussions about the differences in these status, requested Full Code. Advanced Care Planning Face to Face Time: 16 minutes. Charges/Coding Visit Charges Inpatient E&M: 81012 Init Hosp L3 Procedures Hospitalists Procedures: 28505 Advncd Care Plan 30 Min
[2024-11-16 20:10] VITALS: BP 139/61; PULSE 55; RESP 17; TEMP 36.8; O2SAT 96
[2024-11-16 20:27] LABS: Magnesium 2.4 mg/dL (1.6-2.6); Phosphorus 3.7 mg/dL (2.5-4.9)
--- NOTE | 2024-11-16 21:40 | PN.HOSP_ITS ---
Hospitalist Note Patient reporting sudden onset blurred vision, double vision bilaterally only when both eyes are open with attempts to look at papers with staff. She also noting floating diamonds. Upon repeat assessment following immediate mention of these items to staff anesthesiologist she had resolution of her vision changes aside from floating diamonds. Will obtain STAT CT head now to be cautious and will request STAT repeat BMP.
--- NOTE | 2024-11-16 22:00 | CT_ITS ---
EXAM: BRAIN/HEAD WITHOUT CONTRAST CLINICAL HISTORY: 84-year-old female, vision changes. COMPARISON: None. TECHNIQUE: Routine CT imaging of the head without IV contrast. Additional multiplanar reformats were obtained. Dose reduction techniques were used including intermediate exposure control (AEC),iterative reconstruction technique, and/or mA and/or KV dose adjustments based on patient's size. FINDINGS: Mild generalized cerebral volume loss with concordant prominence of the ventricles and subarachnoid spaces. Mild scattered supratentorial white matter hypodensities. The martinez-white matter interfaces are otherwise maintained. No acute intracranial hemorrhage or herniation. The basal cisterns are patent. Prior ocular lens replacements. Mucosal thickening of the bilateral maxillary sinuses. The visualized paranasal sinuses and mastoid air cells are otherwise well-aerated. No acute calvarial fracture or scalp laceration. CT/Brain/Head without Contrast IMPRESSION: Chronic changes. No acute intracranial finding. Reading Location: [id number]
[2024-11-16 22:16] VITALS: BMI 38.2
[2024-11-16 22:23] LABS: Vitamin B12 258 pg/mL (211-911)
[2024-11-16 22:30] VITALS: O2SAT 99
[2024-11-16 22:40] LABS: Anion Gap 5 (5-15); BUN 51 mg/dL (7-18); Calcium,Total 10.3 mg/dL (8.5-10.1); Chloride 112 mmol/L (98-107); Creatinine, Serum 1.76 mg/dL (0.55-1.02); EST Glomerular Filtration Rate 29 mL/min (>60); Est Glom Filt Rate - Afr Amer 35 mL/min (>60); Estimated Creatinine Clearance 24.54 ml/min; Ferritin 14 ng/mL (8-252); Glucose 50 mg/dL (74-106); Iron 53 ug/dL (50-170); Iron Binding Capacity,Total 434 ug/dL (250-450); PERCENT IRON SATURATION 12.2 % (15.0-55.0); Potassium 5.4 mmol/L (3.5-5.1); Sodium Level 139 mmol/L (136-145)
[2024-11-16] MEDS: APIXABAN 2.5 MG TABLET (WCH) PO (23:16)
[2024-11-16] MEDS: Sodium Polystyrene Sulfonate 15 GM/60 ML UDC PO (23:16)
[2024-11-16] MEDS: Doxazosin 4 MG Tablet PO (23:17)
[2024-11-16 23:57] LABS: Bedside Glucose 101 mg/dL (74-106)
[2024-11-17] VITALS (7 sets, daily range): BP systolic 111–143; BP diastolic 45–68; PULSE 52–73; RESP 18; TEMP 36.7–37.2; O2SAT 94–98; BMI 38.2
[2024-11-17] MEDS: 0.9% Normal Saline (1000mL) 1,000 ML 100 ML IV (00:02)
[2024-11-17] MEDS: 0.9% Saline Lock 10 ML Syringe IV (00:02)
[2024-11-17 00:34] LABS: Anion Gap 5 (5-15); BUN 50 mg/dL (7-18); BUN/Creat Ratio 27.6 RATIO (10-20); Chloride 108 mmol/L (98-107); Creatinine, Serum 1.81 mg/dL (0.55-1.02); EST Glomerular Filtration Rate 28 mL/min (>60); Est Glom Filt Rate - Afr Amer 34 mL/min (>60); Estimated Creatinine Clearance 23.36 ml/min; Glucose 142 mg/dL (74-106); Potassium 5.6 mmol/L (3.5-5.1); Sodium Level 136 mmol/L (136-145)
[2024-11-17 04:07] LABS: Absolute Lymphocyte Count 1.09 X10^3/uL (0.83-4.51); Basophil# 0.01 X10^3/uL; Basophil% 0.2 % (0-1); Eosinophil# 0.11 X10^3/uL; Eosinophils% 1.9 % (0-5); Hematocrit 28.6 % (37-47); Lymphocyte # 1.09 X10^3/ul (0.83-4.51); Lymphocyte % 19.2 % (19-41); Mean Corp Hgb Conc 31.5 g/dL (32-36); Mean Corpuscular Hgb 30.4 pg (27.0-32.0); Mean Corpuscular Volume 96.6 fL (81-99); Mean Platelet Vol. 9.6 fl (6.2-12.0); Monocyte# 0.45 X10^3/uL; Monocyte% 7.9 % (0-10); NRBC Flagged by Analyzer 0 % (0-5); Neutrophil # 3.99 X10^3/uL (2.7-7.7); Neutrophil % 70.4 % (47-70); Platelet Count 173 K/mm3 (150-450); RBC Distribution Width CV 13.7 % (11.6-14.6); RBC Distribution Width SD 48.7 fl (35.1-43.9); Red Blood Count 2.96 M/mm3 (4.2-5.4); White Blood Count 5.7 K/mm3 (4.4-11.0)
[2024-11-17 04:31] LABS: Anion Gap 7 (5-15); BUN 51 mg/dL (7-18); BUN/Creat Ratio 32.5 RATIO (10-20); Calcium,Total 9.7 mg/dL (8.5-10.1); Chloride 111 mmol/L (98-107); Creatinine, Serum 1.57 mg/dL (0.55-1.02); EST Glomerular Filtration Rate 33 mL/min (>60); Est Glom Filt Rate - Afr Amer 40 mL/min (>60); Estimated Creatinine Clearance 26.93 ml/min; Glucose 164 mg/dL (74-106); Sodium Level 138 mmol/L (136-145)
[2024-11-17 04:33] LABS: Cholesterol 120 mg/dL (200); High Density Lipoprotein 68 mg/dL; Triglycerides 34 mg/dL; Very Low Density Lipoprotein 7 mg/dL (5-40)
--- NOTE | 2024-11-17 04:42 | PCM.HOSP.N ---
Hospitalist Note Repeat a.m. potassium increased again noted to be 6.0 not hemolyzed. Given previous hypoglycemic events we will decrease the insulin by half and continue to administer dextrose load with it with close blood sugar monitoring per discussion with nursing staff, repeat dose of Kayexalate, albuterol x 1 with repeat BMP in 2 hours following this intervention.
[2024-11-17] MEDS: Insulin Lispro 5 UNIT in Syringe 0 ML 6 UNIT IV (05:14)
[2024-11-17] MEDS: Dextrose 10%-Water 250 ML 999 ML IV (05:14)
[2024-11-17] MEDS: Sodium Polystyrene Sulfonate 15 GM/60 ML UDC PO (05:15)
[2024-11-17] MEDS: Levothyroxine 100 MCG Tablet PO (05:16)
--- NOTE | 2024-11-17 05:42 | CPS ---
discussed bipap with pt, she did not remember settings and hoped to only be here for one night. Pt declined use of a hospital bipap for last night.
[2024-11-17] MEDS: Albuterol *CONC* 2.5mg/0.5mL VIAL.NEB. 10 MG INHALATION (05:55)
[2024-11-17 07:18] LABS: Bedside Glucose 79 mg/dL (74-106)
[2024-11-17 07:18] LABS: Bedside Glucose 164 mg/dL (74-106)
[2024-11-17 07:18] LABS: Bedside Glucose 104 mg/dL (74-106)
[2024-11-17 07:18] LABS: Bedside Glucose 138 mg/dL (74-106)
[2024-11-17 08:27] LABS: Bedside Glucose 83 mg/dL (74-106)
[2024-11-17 08:37] LABS: Hemoglobin A1c 6.4 % (3.8-5.6)
[2024-11-17] MEDS: Vibegron 75 MG TABLET PO (09:29)
[2024-11-17] MEDS: Pantoprazole Sodium 40 MG Tablet PO (09:29)
[2024-11-17] MEDS: APIXABAN 2.5 MG TABLET (WCH) PO (09:29)
[2024-11-17] MEDS: Isosorbide Mononitrate 30 MG Tablet PO (09:29)
[2024-11-17] MEDS: amLODIPine 10 MG Tablet PO (09:29)
[2024-11-17] MEDS: Clopidogrel Bisulfate 75 MG Tablet PO (09:29)
[2024-11-17] MEDS: Carvedilol 25 MG Tablet PO ×2 (09:30→16:46)
[2024-11-17 09:52] LABS: Anion Gap 6 (5-15); BUN 49 mg/dL (7-18); BUN/Creat Ratio 31.2 RATIO (10-20); Calcium,Total 9.8 mg/dL (8.5-10.1); Chloride 112 mmol/L (98-107); Creatinine, Serum 1.57 mg/dL (0.55-1.02); EST Glomerular Filtration Rate 33 mL/min (>60); Est Glom Filt Rate - Afr Amer 40 mL/min (>60); Estimated Creatinine Clearance 26.93 ml/min; Glucose 91 mg/dL (74-106); Potassium 4.7 mmol/L (3.5-5.1); Sodium Level 140 mmol/L (136-145)
--- NOTE | 2024-11-17 12:00 | CASEMGMT ---
RN CM Face to Face with patient for initial transition planning/care coordination assessment. RN CM introduced self and role at [facility]. Patient lying in bed, alert and oriented. Patient willing to participate in assessment and is able to answer all questions appropriately. Care providers, pharmacy, and demographics verified. Strata: 2 PCP: [facility] Specialists: ROMIE project manager senior Preferred Pharmacy: [facility] Insurance: [email or web address] [facility] Prescription Benefit: yes Living Will/HPOA: yes, granddaughter Velia Ordaz LNOK: , granddaughter Living Arrangements: Patient lives with in a bilevel home with 7 steps and railing between levels. Patient is independent and able to ambulate stairs. Transportation: self, DME/HHC: Patient has cane, walker, raised toilet, and bipap at home. No previous HHC or SNF Patient wishes to discharge home, denies need for home health at this time. Patient states she has no further needs or concerns at this time. CM to follow for discharge planning needs that may arise. Disposition Plan: Patient to discharge home with family support and follow-up plans in place. Anaya LOPEZ, RN, CM
[2024-11-17 12:09] LABS: Bedside Glucose 157 mg/dL (74-106)
--- NOTE | 2024-11-17 14:30 | DS.PCM_ITS ---
Providers Date of Admission: 11/16/24 Date of Discharge: 11/17/24 Primary Care Physician: Dr. Chiara Triana MD Consultations 11/17/24 08:10 Consult: Nephrology Routine Consulting Provider: Ros Madera Reason for Consult: persistent hyperkalemia EMERGENT Consult: No MD Notified: Yes Date Notified: 11/17/24 Time Notified: 09:54 Method of Notification: Text Reason For Visit: HYPERKALEMIA Diagnosis Discharge Diagnosis (1) Hyperkalemia: Status: Acute Code(s): E87.5 - Hyperkalemia Medications at Discharge Home Medications Oral Appliance #1 ea 03/19/22 latanoprost 0.005 % eye drops 1 drp EACH EYE QHS Check with primary doctor 03/28/22 [id number]-other [id number] oil 350 mg-400 mg capsule 1 cap PO DAILY supplement 12/01/22 cholecalciferol (vitamin D3) 125 mcg (5,000 unit) tablet 125 mcg PO DAILY #30 tabs 12/11/22 ascorbic acid (vitamin C) 500 mg capsule 500 mg PO DAILY 02/07/23 cranberry 500 mg capsule 500 mg PO DAILY 02/07/23 vibegron 75 mg tablet 75 mg PO DAILY 02/07/23 glimepiride 2 mg tablet 2 mg PO DAILY blood sugar #90 tabs 04/26/24 doxazosin 4 mg tablet 4 mg PO QHS #90 tabs 05/17/24 levothyroxine 100 mcg tablet 100 mcg PO DAILY #60 tabs 09/23/24 carvedilol 25 mg tablet 25 mg PO BID #180 TABLETS 10/19/24 amlodipine 10 mg tablet 10 mg PO DAILY 11/16/24 apixaban 2.5 mg tablet (Eliquis) 2.5 mg PO BID 11/16/24 atorvastatin 40 mg tablet 40 mg PO DAILY 11/16/24 cinnamon bark 500 mg capsule (Cinnamon) 500 mg PO DAILY 11/16/24 clopidogrel 75 mg tablet 75 mg PO DAILY 11/16/24 finerenone 10 mg tablet (Kerendia) 10 mg PO DAILY 11/16/24 Held on 11/17/24. Instructions: Resume on 11/25/24. Can resume next week if repeat labs show stable potassium level. isosorbide mononitrate 30 mg tablet,extended release 24 hr 30 mg PO DAILY 11/16/24 olmesartan 40 mg tablet 40 mg PO DAILY 11/16/24 Held on 11/17/24. Instructions: Resume on 11/25/24. Can resume at half dose next week if repeat labs show stable potassium level. pantoprazole 40 mg tablet,delayed release 40 mg PO DAILY 11/16/24 Hospital Course Operations None Procedures EKG and - (CT brain) Summary of Care Provided Minutes Spent on Discharge: 35 Hospital Course: Patient is an 84-year-old female who presented [facility] ED on 11/16/2024 for elevated potassium level. Short hospital course as noted below. Patient discharged home in stable condition on 11/17. 1. Hyperkalemia ? Nephrology followed. Potassium level 6.5 on admit. Was noted to be 5.4 on multiple labs in mid September. No EKG changes noted. Treated medically with initial improvement but worsened again to 6.0 on morning of 11/17. Treated again medically with significant improvement, potassium 4.7 on later morning of 11/17. Suspected due to home olmesartan and finerenone with mild volume depletion as well. Per nephrology, holding these medications on discharge. Will repeat BMP in 5 to 7 days and if potassium remains stable, will plan to restart finerenone at normal dose and olmesartan at half dose. Outpatient follow-up with both nephrology and PCP as needed. 2. Transient vision changes ? Patient had transient episode of double vision/blurry vision and seeing floaters in vision on evening of admission. Stat CT brain was unremarkable. Symptoms improved fairly quickly and were completely resolved on day of discharge. 3. Mild creatinine elevation in setting of CKD stage IIIb ? Follows with outpatient nephrology. Creatinine 2.08 on admit, improved to baseline 1.5-1.7 by hospital day 2 with IV fluid resuscitation. Continue outpatient follow-up with nephrology. 4. Chronic normocytic anemia ? Hemoglobin 9.6 on admit, decreased to 9.0 with IV fluid resuscitation. Baseline appears to be around 10-11. Iron studies did show some degree of iron deficiency anemia. Presumed that anemia is also in part due to chronic any disease. Patient denies any changes in bowel movements. No other blood loss noted. Recommend continued outpatient follow-up and can consider starting iron supplement as needed. Chronic medical conditions: ? Class II obesity: BMI 38 on admit. Complicated hospital course, care and prognosis. ? Paroxysmal A-fib, hypertension, hyperlipidemia: Holding olmesartan and finerenone on discharge as noted above. Otherwise continue home Eliquis, statin, doxazosin, amlodipine, Coreg, and nitrate. ? Type 2 diabetes mellitus: Continue home glipizide. ? Overactive bladder: Continue home vibegron. ? Hypothyroidism: Continue home Synthroid. ? GERD: Continue home PPI. ? History of sick sinus syndrome s/p pacemaker placement ? History of aortic valve stenosis s/p TAVR Total clinical time spent by myself addressing the patient's medical issues, reviewing all the data, and collaborating with patient's care team: 35 minutes. Physical Exam Const alert, oriented x3 and no apparent distress Constitutional Narrative: Pleasant elderly female, class II obesity, sitting back comfortably in bed, conversing normally, in no acute distress. General Appearance: cooperative and comfortable HEENT normocephalic, head/scalp atraumatic, hearing grossly normal bilaterally, nasal mucous membranes and turbinates normal and moist oral mucous membranes Eyes PERRL, EOMs intact bilaterally and conjunctivae normal Neck full ROM Chest inspection of chest normal Resp normal respiratory effort, normal air movement, no use of accessory muscles and clear to auscultation bilaterally Cardio regular rate, regular rhythm, no murmurs and peripheral pulses 2+ throughout GI normal to inspection, nondistended, normoactive bowel sounds, soft to palpation, non-tender and non-distended Back/Spine normal ROM Extremity normal to inspection, full ROM and no pedal edema Skin no rashes or lesions noted Neuro moves all extremities and no focal motor deficits Speech: speech normal Motor Exam: strength 5/5 throughout Psych mental status grossly normal Weight / BMI Weight Weight: 88.8 kg Body Mass Index (BMI) 38.2 ABG / Lab / Microbiology Data 11/17/24 03:56 11/17/24 08:20 Laboratory: Laboratory Results - last 24 hr 11/16/24 16:35: WBC 5.5, RBC 3.20 L, Hgb 9.6 L, Hct 31.2 L, MCV 97.5, MCH 30.0, MCHC 30.8 L, RDW Std Deviation 49.1 H, RDW Coeff of Ignacia 13.7, Plt Count 191, MPV 9.9, Immature Gran % (Auto) 0.500, Neut % (Auto) 65.1, Lymph % (Auto) 22.3, [place] % (Auto) 9.7, Eos % (Auto) 2.2, Baso % (Auto) 0.2, Absolute Neuts (auto) 3.6, Absolute Lymphs (auto) 1.22, Nucleated RBC % 0, Sodium 135 L, Potassium 6.5 H*, Chloride 108 H, Carbon Dioxide 20.0 L, Anion Gap 8, BUN 54 H, Creatinine 2.08 H, Estim Creat Clear Calc 20.76, Est GFR (MDRD) Af Amer 29 L, Est GFR (MDRD) Non-Af 24 L, BUN/Creatinine Ratio 26.0 H, Glucose 272 H, Calcium 9.8, Phosphorus 3.7, Magnesium 2.4, Troponin I High Sens 13 11/16/24 21:50: Sodium 139, Potassium 5.4 H, Chloride 112 H, Carbon Dioxide 21.0, Anion Gap 5, BUN 51 H, Creatinine 1.76 H, Estim Creat Clear Calc 24.54, E st GFR (MDRD) Af Amer 35 L, Est GFR (MDRD) Non-Af 29 L, BUN/Creatinine Ratio 29.0 H, Glucose 50 L, Calcium 10.3 H, Iron 53, TIBC 434, Iron Saturation 12.2 L, Ferritin 14, Vitamin B12 258, Folate 7.00 11/16/24 22:55: POC Glucose 101 11/17/24 00:04: Sodium 136, Potassium 5.6 H, Chloride 108 H, Carbon Dioxide 22.0, Anion Gap 5, BUN 50 H, Creatinine 1.81 H, Estim Creat Clear Calc 23.36, E st GFR (MDRD) Af Amer 34 L, Est GFR (MDRD) Non-Af 28 L, BUN/Creatinine Ratio 27.6 H, Glucose 142 H, Calcium 11.0 H 11/17/24 03:56: WBC 5.7, RBC 2.96 L, Hgb 9.0 L, Hct 28.6 L, MCV 96.6, MCH 30.4, MCHC 31.5 L, RDW Std Deviation 48.7 H, RDW Coeff of Ignacia 13.7, Plt Count 173, MPV 9.6, Immature Gran % (Auto) 0.400, Neut % (Auto) 70.4 H, Lymph % (Auto) 19.2, [place] % (Auto) 7.9, Eos % (Auto) 1.9, Baso % (Auto) 0.2, Absolute Neuts (auto) 4.0, Absolute Lymphs (auto) 1.09, Nucleated RBC % 0, Sodium 138, Potassium 6.0 H*, Chloride 111 H, Carbon Dioxide 20.0 L, Anion Gap 7, BUN 51 H, Creatinine 1.57 H, Estim Creat Clear Calc 26.93, Est GFR (MDRD) Af Amer 40 L, Est GFR (MDRD) Non-Af 33 L, BUN/Creatinine Ratio 32.5 H, Glucose 164 H, Hemoglobin A1c 6.4 H, Calcium 9.7, Triglycerides 34, Cholesterol 120, LDL Cholesterol 45, VLDL Cholesterol 7, HDL Cholesterol 68, TSH 1.900 11/17/24 05:05: POC Glucose 138 H 11/17/24 06:06: POC Glucose 164 H 11/17/24 06:29: POC Glucose 104 11/17/24 07:00: POC Glucose 79 11/17/24 08:08: POC Glucose 83 11/17/24 08:20: Sodium 140, Potassium 4.7, Chloride 112 H, Carbon Dioxide 22.0, Anion Gap 6, BUN 49 H, Creatinine 1.57 H, Estim Creat Clear Calc 26.93, Est GFR (MDRD) Af Amer 40 L, Est GFR (MDRD) Non-Af 33 L, BUN/Creatinine Ratio 31.2 H, Glucose 91, Calcium 9.8 11/17/24 11:38: POC Glucose 157 H Radiography Diagnostic Testing: Radiology Impression Brain CT 11/16/24 22:00 IMPRESSION: Chronic changes. No acute intracranial finding. Reading Location: [id number] D/C Instructions DC O2, CPAP, BIPAP Needs Home O2 Discharge instructions: No Meaningful Use Info Meaningful Use Meaningful Use Diagnoses (Choose all that apply): None applicable Ischemic Stroke Statin Dosing Therapy Reference: STATIN DOSE THERAPY REFERENCE: * Patients > 75 years receive moderate or high dose statin therapy. * Patients 75 years or YOUNGER should receive HIGH intensity statin dose unless contraindicated. You will be required to document reason for non-treatment if statin daily dose does not meet guidelines. HIGH DOSE STATIN THERAPY DAILY Atorvastatin > than or = to 40 mg Rosuvastatin > than or = to 20 mg Amlodipine + Atorvastatin > than or = to 2.5/40 mg Ezetimibe + Simvastatin 10/80 mg Simvastatin 80mg Discharge Plan Admission Admit Date/Time: 11/16/24 19:53 Primary Reason for Your Visit: high potassium level Attending Provider: Angel Tay Primary Care Provider: Chiara Triana Consulting Providers: Beckie Moeller; Ros Madera Instructions Additional Instructions / Restrictions: Per Dr. Madera's recommendation, please hold the olmesartan and Kerendia on discharge. Please have a repeat BMP drawn next week and if potassium remains normal, you can restart the Kerendia at normal dose and the olmesartan at half the normal dose. Follow-up with your PCP and Dr. Madera as needed. Discharge Orders/Prescriptions Prescriptions: Continued (DME) Oral Appliance See Rx Instructions .ROUTE .MEDSUPPLY Qty: 1 0RF Rx Instructions: As directed vibegron 75 mg tablet 75 mg PO DAILY cranberry 500 mg capsule 500 mg PO DAILY Rx Instructions: administer with meals ascorbic acid (vitamin C) 500 mg capsule 500 mg PO DAILY latanoprost 0.005 % Drops 1 drp EACH EYE QHS [id number]-fish oil 350-400 mg Capsule 1 cap PO DAILY amlodipine 10 mg tablet 10 mg PO DAILY isosorbide mononitrate 30 mg tablet extended release 24 hr 30 mg PO DAILY clopidogrel 75 mg tablet 75 mg PO DAILY cinnamon bark [Cinnamon] 500 mg capsule 500 mg PO DAILY Eliquis 2.5 mg tablet 2.5 mg PO BID atorvastatin 40 mg tablet 40 mg PO DAILY pantoprazole 40 mg tablet,delayed release (DR/EC) 40 mg PO DAILY cholecalciferol (vitamin D3) 125 mcg (5,000 unit) tablet 125 mcg PO DAILY Qty: 30 0RF glimepiride 2 mg tablet 2 mg PO DAILY Qty: 90 1RF doxazosin 4 mg tablet 4 mg PO QHS Qty: 90 1RF levothyroxine 100 mcg tablet 100 mcg PO DAILY Qty: 60 0RF carvedilol 25 mg tablet 25 mg PO BID Qty: 180 1RF Held olmesartan 40 mg tablet 40 mg PO DAILY Hold Instructions: Resume on 11/25/24. Can resume at half dose next week if repeat labs show stable potassium level. Kerendia 10 mg tablet 10 mg PO DAILY Hold Instructions: Resume on 11/25/24. Can resume next week if repeat labs show stable potassium level. Other Ambulatory Orders: Basic Metabolic Profile (BMP) (Routine) Timeframe: 5 Days Facility: [facility] - Location: Laboratory Ordered By: Dr. Angel Tay Referrals / Follow Up: Chiara Triana MD [Primary Care Provider] - Disposition Disposition (needs filled in before D/C Order can be placed): Home, Self Care Charges/Coding Visit Charges Inpatient E&M: 66466 Disch Hosp >30min
--- NOTE | 2024-11-17 14:51 | PCM.CONS.R ---
Assessment & Plan Assessment/Plan (1) Stage 4 chronic kidney disease: PLAN: Creatinine 1.57 eGFR 33cc/min CKD stage 3B to stage 4 with creatinine 1.8 on admission. Underlying diabetic nephropathy with proteinuria. (2) Hyperkalemia: PLAN: hold olmesartan and Kerendia for now. Repeat labs in 1 week and resume half dose of Olmesartan and Kerendia if potassium stable. (3) Aortic stenosis: QUALIFIERS: Cardiac valve disease etiology: etiology unspecified Qualified Code(s): I35.0 - Nonrheumatic aortic (valve) stenosis (4) PAF (paroxysmal atrial fibrillation): (5) Diabetes mellitus, type 2: QUALIFIERS: Diabetes mellitus parts counterman insulin use: without parts counterman use Diabetes mellitus complication status: without complication Qualified Code(s): E11.9 - Type 2 diabetes mellitus without complications (6) Essential hypertension: (7) HLD (hyperlipidemia): QUALIFIERS: Hyperlipidemia type: unspecified Qualified Code(s): E78.5 - Hyperlipidemia, unspecified HPI Consult Data Date of Consult: 11/17/24 HPI Narrative Reason for Consultation: hyperkalemia HPI Narrative: LYNETTE WEBSTER, is a 84 F well known to me presented to ED for hyperkalemia found on routine blood work for evaluation. Potassium 6.0 treated medically now down to 4.7. She is on olmesartan and Kerendia at home with proteinuria from diabetes. She did have some tomatoes with salad. No OJ, bananas. Denied NSAID use. Creatinine 1.8 on admission to 1.57 today. She has a history of left renal artery stenosis, hypertension, atrial fibrillation, gout. Today complains of burning with urination, no fever, chills, no hematuria. [facility] Medical History Aortic stenosis Breast calcification, right Anxiety Hypothyroidism Diabetes Kidney disease Sleep apnea Atrial fibrillation Secondary pulmonary arterial hypertension Sick sinus syndrome Chronic pericarditis with effusion Left bundle branch block (LBBB) Essential hypertension Bradycardia Physical debility Gout Glaucoma Chronic renal failure, stage 3a Osteoarthritis Diabetes mellitus, type 2 Pericardial effusion (08/23/20) LVH (left ventricular hypertrophy) Musculoskeletal back pain PAF (paroxysmal atrial fibrillation) Hemoptysis CL[place]ORD (obstructive sleep apnea) Hypersomnolence Nonrheumatic aortic valve stenosis Carotid bruit HLD (hyperlipidemia) Abnormal cardiac enzyme level Hyperthyroidism Home Medications ?Medication ?Instructions ?Recorded ?Last Taken ?Type Oral Appliance #1 ea 03/19/22 Unknown Rx latanoprost 0.005 % eye drops 1 drp EACH EYE QHS Check with 03/28/22 11/15/24 History primary doctor daybh0-tit-xou-other ofojz4o-dmrm 1 cap PO DAILY supplement 12/01/22 11/16/24 History oil 350 mg-400 mg capsule cholecalciferol (vitamin D3) 125 125 mcg PO DAILY #30 tabs 12/11/22 11/16/24 Rx mcg (5,000 unit) tablet ascorbic acid (vitamin C) 500 mg 500 mg PO DAILY 02/07/23 11/16/24 History capsule cranberry 500 mg capsule 500 mg PO DAILY 02/07/23 Unknown History vibegron 75 mg tablet 75 mg PO DAILY 02/07/23 11/16/24 History glimepiride 2 mg tablet 2 mg PO DAILY blood sugar #90 tabs 04/26/24 11/16/24 Rx doxazosin 4 mg tablet 4 mg PO QHS #90 tabs 05/17/24 11/15/24 Rx levothyroxine 100 mcg tablet 100 mcg PO DAILY #60 tabs 09/23/24 11/16/24 Rx carvedilol 25 mg tablet 25 mg PO BID #180 TABLETS 10/19/24 11/16/24 Rx amlodipine 10 mg tablet 10 mg PO DAILY 11/16/24 11/16/24 History apixaban 2.5 mg tablet (Eliquis) 2.5 mg PO BID 11/16/24 11/16/24 History atorvastatin 40 mg tablet 40 mg PO DAILY 11/16/24 11/16/24 History cinnamon bark 500 mg capsule 500 mg PO DAILY 11/16/24 11/16/24 History (Cinnamon) clopidogrel 75 mg tablet 75 mg PO DAILY 11/16/24 11/16/24 History finerenone 10 mg tablet (Kerendia) 10 mg PO DAILY 11/16/24 11/16/24 History isosorbide mononitrate 30 mg 30 mg PO DAILY 11/16/24 11/16/24 History tablet,extended release 24 hr olmesartan 40 mg tablet 40 mg PO DAILY 11/16/24 11/16/24 History pantoprazole 40 mg tablet,delayed 40 mg PO DAILY 11/16/24 11/16/24 History release Allergy/AdvReac Type Severity Reaction Status Date / Time benazepril (From Lotensin) Allergy Unknown Verified 11/16/24 14:41 Iodine and Iodide Containing Allergy Shortness Verified 11/16/24 14:41 Produc of breath meperidine (From Demerol) Allergy Unknown Verified 11/16/24 14:41 metformin (From Janumet) Allergy Pain in Verified 11/16/24 14:41 joints Penicillins Allergy Hives Verified 11/16/24 14:41 propoxyphene (From Darvon) Allergy Unknown Verified 11/16/24 14:41 shellfish derived Allergy Shortness Verified 11/16/24 14:41 of breath sitagliptin (From Janumet) Allergy Pain in Verified 11/16/24 14:41 joints spironolactone Allergy Unknown Verified 11/16/24 14:41 rivaroxaban (From Xarelto) AdvReac Severe PERICARDIAL Verified 11/16/24 14:41 EFFUSION adhesive AdvReac Unknown Unknown Verified 11/16/24 14:41 hydrochlorothiazide AdvReac NEEDS Verified 11/16/24 14:41 FOLLOW-UP lisinopril AdvReac NEEDS Verified 11/16/24 14:41 FOLLOW-UP metoprolol AdvReac Shortness Verified 11/16/24 14:41 of breath simvastatin AdvReac Pain in Verified 11/16/24 14:41 joints Family History Mother Cancer Uterine Thyroid disorder Father Cancer lung Hypertension Son Cancer esophageal Surgical History Heart valve replaced S/P TAVR (transcatheter aortic valve replacement) S/P skin biopsy History of permanent cardiac pacemaker placement (06/2018) 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 History of total hysterectomy History of tonsillectomy and adenoidectomy History of parathyroidectomy (2009) History of thyroidectomy, total (2009) Social History household members: spouse number of children: 2 current occupational status: retired current occupation: worked in the [employer] at [employer] Smoking Status: Never smoker Electronic Cigarette Use: not used alcohol intake: never substance use type: does not use caffeine: No do you feel safe at home: Yes ROS Constitutional Constitutional: Denies chills, fever(s) or weakness Cardiovascular Cardiovascular: Denies chest pain or dyspnea on exertion Respiratory/Chest Respiratory/Chest: Denies dyspnea on exertion Gastrointestinal Gastrointestinal: Denies abdominal pain, anorexia, nausea or vomiting Genitourinary Genitourinary: Reports dysuria and oliguria; Denies flank pain or hematuria Musculoskeletal Musculoskeletal: Denies muscle cramps Integumentary Integumentary: Reports rash and other Details: ecchymosis LLQ abdomen, dont recall bumping it or getting an injection in area Neurologic Neurologic: Denies abnormal gait Psychiatric Psychiatric: Denies anxiety or confusion Hematologic/Lymphatic Hematologic/Lymphatic: Reports anemia Physical Exam Const alert and oriented x3 General Appearance: well developed Resp clear to auscultation bilaterally Cardio regular rate GI non-tender and non-distended Palpation: soft Skin General Skin Exam: ecchymosis Wound Narrative: LLQ abdomen Neuro CN's II-XII intact bilaterally Sensorium / Orientation: awake and alert Psych cooperative Lab / Micro Data 11/17/24 03:56 11/17/24 08:20 Labs: Laboratory Results - last 24 hr 11/16/24 16:35: WBC 5.5, RBC 3.20 L, Hgb 9.6 L, Hct 31.2 L, MCV 97.5, MCH 30.0, MCHC 30.8 L, RDW Std Deviation 49.1 H, RDW Coeff of Ignacia 13.7, Plt Count 191, MPV 9.9, Immature Gran % (Auto) 0.500, Neut % (Auto) 65.1, Lymph % (Auto) 22.3, [place] % (Auto) 9.7, Eos % (Auto) 2.2, Baso % (Auto) 0.2, Absolute Neuts (auto) 3.6, Absolute Lymphs (auto) 1.22, Nucleated RBC % 0, Sodium 135 L, Potassium 6.5 H*, Chloride 108 H, Carbon Dioxide 20.0 L, Anion Gap 8, BUN 54 H, Creatinine 2.08 H, Estim Creat Clear Calc 20.76, Est GFR (MDRD) Af Amer 29 L, Est GFR (MDRD) Non-Af 24 L, BUN/Creatinine Ratio 26.0 H, Glucose 272 H, Calcium 9.8, Phosphorus 3.7, Magnesium 2.4, Troponin I High Sens 13 11/16/24 21:50: Sodium 139, Potassium 5.4 H, Chloride 112 H, Carbon Dioxide 21.0, Anion Gap 5, BUN 51 H, Creatinine 1.76 H, Estim Creat Clear Calc 24.54, Est GFR (MDRD) Af Amer 35 L, Est GFR (MDRD) Non-Af 29 L, BUN/Creatinine Ratio 29.0 H, Glucose 50 L, Calcium 10.3 H, Iron 53, TIBC 434, Iron Saturation 12.2 L, Ferritin 14, Vitamin B12 258, Folate 7.00 11/16/24 22:55: POC Glucose 101 11/17/24 00:04: Sodium 136, Potassium 5.6 H, Chloride 108 H, Carbon Dioxide 22.0, Anion Gap 5, BUN 50 H, Creatinine 1.81 H, Estim Creat Clear Calc 23.36, Est GFR (MDRD) Af Amer 34 L, Est GFR (MDRD) Non-Af 28 L, BUN/Creatinine Ratio 27.6 H, Glucose 142 H, Calcium 11.0 H 11/17/24 03:56: WBC 5.7, RBC 2.96 L, Hgb 9.0 L, Hct 28.6 L, MCV 96.6, MCH 30.4, MCHC 31.5 L, RDW Std Deviation 48.7 H, RDW Coeff of Ignacia 13.7, Plt Count 173, MPV 9.6, Immature Gran % (Auto) 0.400, Neut % (Auto) 70.4 H, Lymph % (Auto) 19.2, [place] % (Auto) 7.9, Eos % (Auto) 1.9, Baso % (Auto) 0.2, Absolute Neuts (auto) 4.0, Absolute Lymphs (auto) 1.09, Nucleated RBC % 0, Sodium 138, Potassium 6.0 H*, Chloride 111 H, Carbon Dioxide 20.0 L, Anion Gap 7, BUN 51 H, Creatinine 1.57 H, Estim Creat Clear Calc 26.93, Est GFR (MDRD) Af Amer 40 L, Est GFR (MDRD) Non-Af 33 L, BUN/Creatinine Ratio 32.5 H, Glucose 164 H, Hemoglobin A1c 6.4 H, Calcium 9.7, Triglycerides 34, Cholesterol 120, LDL Cholesterol 45, VLDL Cholesterol 7, HDL Cholesterol 68, TSH 1.900 11/17/24 05:05: POC Glucose 138 H 11/17/24 06:06: POC Glucose 164 H 11/17/24 06:29: POC Glucose 104 11/17/24 07:00: POC Glucose 79 11/17/24 08:08: POC Glucose 83 11/17/24 08:20: Sodium 140, Potassium 4.7, Chloride 112 H, Carbon Dioxide 22.0, Anion Gap 6, BUN 49 H, Creatinine 1.57 H, Estim Creat Clear Calc 26.93, Est GFR (MDRD) Af Amer 40 L, Est GFR (MDRD) Non-Af 33 L, BUN/Creatinine Ratio 31.2 H, Glucose 91, Calcium 9.8 11/17/24 11:38: POC Glucose 157 H Imaging Radiology Impression Brain CT 11/16/24 22:00 IMPRESSION: Chronic changes. No acute intracranial finding. Reading Location: [id number]
--- NOTE | 2024-11-17 15:47 | CHAPLAIN ---
Type of Pastoral Visit _x__ Initial Visit ___ Follow-up Visit ___ On-call Visit ___ General Patient Visit ___ Spiritual Assessment ___ Family Conference ___ Bereavement ___ Rapid Response ___ Code Blue ___ Other (describe below) Pastoral Care Referral From _x__ Patient ___ Family ___ Nurse ___ Physician ___ Cost Report Clerk ___ Wire Charger ___ Other (describe below) Sacrament/Intervention _x__ Active listening ___ Anointing ___ Hoahaoism ___ Bereavement ___ Communion _x__ Tuyet exploration ___ _x__ Life review _x__ Prayer ___ Reconciliation ___ Sacrament of Sick _x__ Supportive presence ___ Wedding ___ Other (describe below) Pastoral Comments patient reviews recent health issues and reason for being at the hospital; pt gives some life review including her marriage six years ago and her involvement in buddhist and community ministries; pt has concern for more limitations in life and 'missing a [employer] medication' tomorrow; otherwise patient appears upbeat and positive about her journey; pt is a strong believer and active in her buddhist; pt welcomes prayer
[2024-11-17 17:14] LABS: Color, Urine Yellow (Yellow); Glucose, Dipstick Normal (Normal); Ketone-Dipstick Negative (Negative); Leukocyte Esterase-Dipstick 500 /ul (Negative); Nitrite-Dipstick Negative (Negative); Occult Blood-Urine 25 /ul (Negative); Protein-Dipstick 15 mg/dl (Negative); Specific Gravity, Urine 1.015 (1.002-1.030); Urine Bilirubin Dipstick Negative (Negative); Urine Clarity Sl. Cloudy (Clear); Urine Urobilinogen Normal (Normal)
[2024-11-17 17:23] LABS: Bedside Glucose 133 mg/dL (74-106)
== END 2024-11-17 19:00 | disposition home or self-care (01) | DRG 641 ==
LOC: ED 19:58 → PCU 20:32
PROVIDERS: Admitting Provider Family Medicine; Emergency Provider Emergency Medicine; PCP Internal Medicine; Referring Provider Family Medicine; Visit Provider Hospitalist
DX: E87.5 Hyperkalemia (principal); D63.8 Anemia in other chronic diseases classified elsewhere; I49.5 Sick sinus syndrome; E11.22 Type 2 diabetes mellitus with diabetic chronic kidney disease; E66.812 Obesity, class 2; D50.9 Iron deficiency anemia, unspecified; E86.9 Volume depletion, unspecified; I48.0 Paroxysmal atrial fibrillation; N18.32 Chronic kidney disease, stage 3b; E89.0 Postprocedural hypothyroidism; I12.9 Hypertensive chronic kidney disease with stage 1 through stage 4 chronic kidney disease, or unspecified chronic kidney disease; F32.A Depression, unspecified; Z95.2 Presence of prosthetic heart valve; F41.9 Anxiety disorder, unspecified; M19.90 Unspecified osteoarthritis, unspecified site; I35.0 Nonrheumatic aortic (valve) stenosis; E78.5 Hyperlipidemia, unspecified; G47.33 Obstructive sleep apnea (adult) (pediatric); I44.7 Left bundle-branch block, unspecified; H53.8 Other visual disturbances; K21.9 Gastro-esophageal reflux disease without esophagitis; H40.9 Unspecified glaucoma; N32.81 Overactive bladder; T46.5X5A Adverse effect of other antihypertensive drugs, initial encounter; T50.995A Adverse effect of other drugs, medicaments and biological substances, initial encounter; Z88.0 Allergy status to penicillin; Z95.0 Presence of cardiac pacemaker; Z79.84 Long term (current) use of oral hypoglycemic drugs; Z79.01 Long term (current) use of anticoagulants; Z68.38 Body mass index [BMI] 38.0-38.9, adult; Z79.02 Long term (current) use of antithrombotics/antiplatelets; Z79.890 Hormone replacement therapy; Z79.899 Other long term (current) drug therapy
CPT/HCPCS: 36415; 70450; 80048; 80061; 81002; 82607; 82728; 82746; 82962; 83036; 83540; 83550; 83735; 84100; 84443; 84484; 85025; 87086; 87088; 87186; 93005; 94640; 94668; 94762; 99285; A4216; J0612

== ENCOUNTER → 2024-11-24 | Outpatient (CLI) | payer MEDICARE, SELFPAY ==
[2024-04-07 05:29] VITALS: BMI 35.4
[2024-11-24 12:04] LABS: Anion Gap 12 (5-15); BUN 55 mg/dL (4-19); BUN/Creat Ratio 31.7 RATIO (10-20); Calcium 10.1 mg/dL (7.6-11.0); Carbon Dioxide 21.8 mmol/L (22.0-29.0); Chloride 101 mmol/L (96-108); Creatinine, Serum 1.8 mg/dL (0.6-1.0); EST Glomerular Filtration Rate 29 (>60); Glucose 132 mg/dL (70-99); Potassium 3.9 mmol/L (3.3-5.1); Sodium Level 134 mmol/L (133-145)
== END | disposition home or self-care (01) ==
LOC: LAB 10:43
PROVIDERS: PCP Internal Medicine; Referring Provider Internal Medicine Nephrology; Visit Provider Internal Medicine Nephrology
DX: E87.5 Hyperkalemia (principal)
CPT/HCPCS: 36415; 80048

== ENCOUNTER 2024-12-01 12:43 | Outpatient (RCR) | payer MEDICARE, SELFPAY ==
[2024-04-07 05:29] VITALS: BMI 35.4
== END 2024-12-27 23:59 ==
LOC: NS 12:43
PROVIDERS: PCP Internal Medicine; Referring Provider Internal Medicine Nephrology; Visit Provider Internal Medicine Nephrology
DX: Z71.3 Dietary counseling and surveillance (principal); N18.32 Chronic kidney disease, stage 3b
CPT/HCPCS: 97802

== ENCOUNTER → 2024-12-01 | Outpatient (CLI) | payer MEDICARE, SELFPAY ==
[2024-04-07 05:29] VITALS: BMI 35.4
== END | disposition home or self-care (01) ==
LOC: LAB 14:13
PROVIDERS: PCP Internal Medicine; Referring Provider Internal Medicine Nephrology; Visit Provider Internal Medicine Nephrology
DX: Z00.00 Encounter for general adult medical examination without abnormal findings (principal)

== ENCOUNTER → 2024-12-01 | Outpatient (CLI) | payer MEDICARE, SELFPAY ==
[2024-04-07 05:29] VITALS: BMI 35.4
[2024-12-01 15:49] LABS: Anion Gap 10 (5-15); BUN 51 mg/dL (4-19); Calcium,Total 10.4 mg/dL (7.6-11.0); Carbon Dioxide 21.3 mmol/L (21.0-32.0); Chloride 106 mmol/L (98-108); Creatinine, Serum 1.88 mg/dL (0.70-1.20); EST Glomerular Filtration Rate 26 (>60); Glucose 172 mg/dL (70-99); Potassium 5.6 mmol/L (3.3-5.1); Sodium Level 138 mmol/L (133-145)
== END | disposition home or self-care (01) ==
LOC: LAB 14:15
PROVIDERS: PCP Internal Medicine; Referring Provider Internal Medicine Nephrology; Visit Provider Internal Medicine Nephrology
DX: E87.5 Hyperkalemia (principal)
CPT/HCPCS: 36415; 80048

== ENCOUNTER → 2024-12-08 | Outpatient (CLI) | payer MEDICARE, SELFPAY ==
[2024-04-07 05:29] VITALS: BMI 35.4
[2024-12-08 14:06] LABS: Anion Gap 11 (5-15); BUN 36 mg/dL (4-19); BUN/Creat Ratio 23.2 RATIO (10-20); Calcium,Total 10.2 mg/dL (7.6-11.0); Carbon Dioxide 22.3 mmol/L (21.0-32.0); Chloride 105 mmol/L (98-108); Creatinine, Serum 1.55 mg/dL (0.70-1.20); EST Glomerular Filtration Rate 33 (>60); Glucose 145 mg/dL (70-99); Potassium 4.2 mmol/L (3.3-5.1); Sodium Level 138 mmol/L (133-145)
== END | disposition home or self-care (01) ==
LOC: LAB 12:39
PROVIDERS: PCP Internal Medicine; Referring Provider Internal Medicine Nephrology; Visit Provider Internal Medicine Nephrology
DX: E87.5 Hyperkalemia (principal)
CPT/HCPCS: 36415; 80048

== ENCOUNTER → 2024-12-17 | Outpatient (CLI) | payer MEDICARE, SELFPAY ==
[2024-04-07 05:29] VITALS: BMI 35.4
[2024-12-17 11:46] LABS: Absolute Lymphocyte Count 0.99 X10^3/uL (0.83-4.51); Absolute Neutrophil Count 3.6 X10^3/uL (2.0-7.7); Basophil# 0.01 X10^3/uL; Basophil% 0.2 % (0-1); Eosinophil# 0.13 X10^3/uL; Eosinophils% 2.5 % (0-5); Hematocrit 33.7 % (37-47); Hemoglobin 10.4 g/dL (12.0-15.0); Lymphocyte # 0.99 X10^3/ul (0.83-4.51); Lymphocyte % 18.7 % (19-41); Mean Corp Hgb Conc 30.9 g/dL (32-36); Mean Corpuscular Hgb 29.5 pg (27.0-32.0); Mean Corpuscular Volume 95.5 fL (81-99); Mean Platelet Vol. 9.8 fl (6.2-12.0); Monocyte# 0.52 X10^3/uL; Monocyte% 9.8 % (0-10); NRBC Flagged by Analyzer 0 % (0-5); Platelet Count 195 K/mm3 (150-450); RBC Distribution Width CV 13.6 % (11.6-14.6); RBC Distribution Width SD 47.5 fl (35.1-43.9); Red Blood Count 3.53 M/mm3 (4.2-5.4); White Blood Count 5.3 K/mm3 (4.4-11.0)
[2024-12-17 12:29] LABS: AST(SGOT) 21 U/L (<=31); Alanine Aminotransfer ALT/SGPT 16 U/L (<=34); Albumin, Serum 3.5 g/dL (3.4-4.8); Alkaline Phosphatase 69 U/L (35-104); Anion Gap 11 (5-15); BUN 28 mg/dL (4-19); BUN/Creat Ratio 19.8 RATIO (10-20); Carbon Dioxide 21.3 mmol/L (21.0-32.0); Chloride 106 mmol/L (98-108); Creatinine, Serum 1.43 mg/dL (0.70-1.20); EST Glomerular Filtration Rate 36 (>60); Globulin 3.5 g/dL (2.2-4.2); Glucose 145 mg/dL (70-99); Potassium 4.3 mmol/L (3.3-5.1); Sodium Level 139 mmol/L (133-145); Total Bilirubin 0.57 mg/dL (0.00-1.30)
== END | disposition home or self-care (01) ==
LOC: LAB 11:18
PROVIDERS: PCP Internal Medicine; Referring Provider Student in an Organized Health Care Education/Training Program; Visit Provider Student in an Organized Health Care Education/Training Program
DX: R19.5 Other fecal abnormalities (principal)
CPT/HCPCS: 36415; 80053; 85025

== ENCOUNTER → 2024-12-20 | Outpatient (CLI) | payer MEDICARE, SELFPAY ==
[2024-04-07 05:29] VITALS: BMI 35.4
--- NOTE | 2024-12-20 09:52 | US_ITS ---
PROCEDURE: OTHER UNLISTED US PROCEDURE REASON FOR EXAM: 84-year-old female, SUBCUTANEOUS NODULE OF ABDOMEN TECHNIQUE: Ultrasound imaging of subcutaneous tissues of the ventral midline lower abdomen. COMPARISON: None. FINDINGS: There is a palpable mass within the left lower quadrant/midline of the lower abdomen, measuring 1.2 x 1.2 x 0.8 cm. The mass is hyperechoic, with an area of central anechogenicity measuring 0.3 x 0.3 x 0.2 cm. DOPPLER: Color Doppler: No discrete blood flow within the mass. US/Other Unlisted US Procedure IMPRESSION: Subcutaneous hyperechoic nodule along the left lower quadrant/midline abdomen. Findings are nonspecific and may represent a site of fat necrosis. Additional considerations may include schwannoma, myxoma or s ubcutaneous cyst. Reading Location: [id number]
== END | disposition home or self-care (01) ==
LOC: US 09:50
PROVIDERS: PCP Internal Medicine; Referring Provider Internal Medicine; Visit Provider Internal Medicine
DX: R22.2 Localized swelling, mass and lump, trunk (principal)
CPT/HCPCS: 76999

== ENCOUNTER 2024-12-22 10:21 | Outpatient (CLI) | payer MEDICARE, SELFPAY ==
[2024-04-07 05:29] VITALS: BMI 35.4
[2024-12-24 14:08] LABS: Pancreatic Elastase, Fecal 575 (>200)
[2024-12-25 08:08] LABS: Calprotectin, Stool 123 ug/g (0-120)
== END 2024-12-22 23:59 | disposition home or self-care (01) ==
LOC: LABSPEC 10:23
PROVIDERS: PCP Internal Medicine; Referring Provider Student in an Organized Health Care Education/Training Program; Visit Provider Student in an Organized Health Care Education/Training Program
DX: R19.5 Other fecal abnormalities (principal); K58.9 Irritable bowel syndrome, unspecified; R19.7 Diarrhea, unspecified
CPT/HCPCS: 82274; 82653; 83630; 83993; 87177; 87209; 87329; 87493; 87506

== ENCOUNTER → 2025-01-07 | Outpatient (CLI) | payer MEDICARE, SELFPAY ==
[2025-01-05 14:09] VITALS: BMI 35.4
== END | disposition home or self-care (01) ==
PROVIDERS: PCP Internal Medicine; Referring Provider Student in an Organized Health Care Education/Training Program; Visit Provider Student in an Organized Health Care Education/Training Program
DX: R19.7 Diarrhea, unspecified (principal); K58.9 Irritable bowel syndrome, unspecified
CPT/HCPCS: 87493

== ENCOUNTER → 2025-02-05 | Outpatient (CLI) | payer MEDICARE, SELFPAY ==
[2025-01-05 14:09] VITALS: BMI 35.4
[2025-02-05 11:30] LABS: Albumin, Serum 4.1 g/dL (3.4-4.8); Anion Gap 13 (5-15); BUN 34 mg/dL (4-19); BUN/Creat Ratio 18.5 RATIO (10-20); Calcium,Total 10.1 mg/dL (7.6-11.0); Carbon Dioxide 21.9 mmol/L (21.0-32.0); Chloride 103 mmol/L (98-108); Creatinine, Serum 1.81 mg/dL (0.70-1.20); EST Glomerular Filtration Rate 27 (>60); Glucose 113 mg/dL (70-99); Phosphorus 3.5 mg/dL (2.7-4.5); Potassium 3.8 mmol/L (3.3-5.1); Sodium Level 138 mmol/L (133-145)
== END | disposition home or self-care (01) ==
LOC: LAB 10:12
PROVIDERS: PCP Internal Medicine; Referring Provider Internal Medicine Nephrology; Visit Provider Internal Medicine Nephrology
DX: N18.32 Chronic kidney disease, stage 3b (principal)
CPT/HCPCS: 36415; 80069

== ENCOUNTER 2025-02-22 12:58 | Emergency (ER) | payer MEDICARE, SELFPAY ==
[2025-01-05 14:09] VITALS: BMI 35.4
[2025-02-22 12:59] VITALS: BP 154/54; PULSE 63; RESP 16; TEMP 36.6; O2SAT 100
[2025-02-22 14:08] VITALS: BMI 40.4
[2025-02-22 14:09] VITALS: BP 153/67; PULSE 60; RESP 16; TEMP 36.8; O2SAT 94
--- NOTE | 2025-02-22 14:20 | RAD_ITS ---
EXAM: Right tibia and fibula. CLINICAL HISTORY: Pain following injury. COMPARISON: None TECHNIQUE: Two views of the right tibia were obtained. FINDINGS: No fracture is seen. Diffuse soft tissue swelling. RAD/Tibia & Fibula 2 Views IMPRESSION: Diffuse soft tissue swelling. No fracture is seen. Reading Location: [id number]
[2025-02-22 14:22] LABS: Absolute Lymphocyte Count 0.84 X10^3/uL (0.83-4.51); Absolute Neutrophil Count 4.2 X10^3/uL (2.0-7.7); Basophil# 0.01 X10^3/uL; Basophil% 0.2 % (0-1); Eosinophil# 0.06 X10^3/uL; Eosinophils% 1.1 % (0-5); Hematocrit 31.7 % (37-47); Hemoglobin 9.8 g/dL (12.0-15.0); Lymphocyte # 0.84 X10^3/ul (0.83-4.51); Lymphocyte % 15.2 % (19-41); Mean Corp Hgb Conc 30.9 g/dL (32-36); Mean Corpuscular Hgb 28.8 pg (27.0-32.0); Mean Corpuscular Volume 93.2 fL (81-99); Mean Platelet Vol. 9.9 fl (6.2-12.0); Monocyte# 0.45 X10^3/uL; Monocyte% 8.1 % (0-10); NRBC Flagged by Analyzer 0 % (0-5); Neutrophil # 4.15 X10^3/uL (2.7-7.7); Platelet Count 210 K/mm3 (150-450); RBC Distribution Width CV 14.5 % (11.6-14.6); RBC Distribution Width SD 49.3 fl (35.1-43.9); White Blood Count 5.5 K/mm3 (4.4-11.0)
[2025-02-22 14:51] LABS: ALB/GLOB Ratio 1.4 RATIO (0.9-2.4); AST(SGOT) 23 U/L (<=31); Alanine Aminotransfer ALT/SGPT 18 U/L (<=34); Albumin, Serum 4.2 g/dL (3.4-4.8); Alkaline Phosphatase 99 U/L (35-104); Anion Gap 11 (5-15); BUN 23 mg/dL (4-19); BUN/Creat Ratio 16.2 RATIO (10-20); Calcium,Total 10.1 mg/dL (7.6-11.0); Carbon Dioxide 21.7 mmol/L (21.0-32.0); Chloride 107 mmol/L (98-108); Creatinine, Serum 1.43 mg/dL (0.70-1.20); EST Glomerular Filtration Rate 36 (>60); Globulin 2.9 g/dL (2.2-4.2); Glucose 136 mg/dL (70-99); Potassium 4.5 mmol/L (3.3-5.1); Pro- Brain NATRIURETIC PEPTIDE 1691 pg/mL (<=1800); Protein, Total 7.1 g/dL (5.9-8.4); Sodium Level 139 mmol/L (133-145); Total Bilirubin 0.82 mg/dL (0.00-1.30)
[2025-02-22 16:00] VITALS: BP 132/82; PULSE 65; RESP 20; O2SAT 97
--- NOTE | 2025-02-22 16:01 | ED.VIS.LOWEX ---
HPI History of Present Illness Chief Complaint: Edema Informant: patient and spouse/S.O. Narrative Narrative: 85-year-old female states she accidentally fell and injured her right lower leg on February 06 which was about 2 weeks ago or a little more, and right after that she started getting swelling in both of her lower legs. She states this swelling has persisted and they have never been swollen before. She had an aortic valve replacement a year ago and she is due to follow-up with her surgeon this week later. She denies having any chest pain, new problems breathing, orthopnea. She has chronic dyspnea with exertion ever since she had the valve done. She has been on Eliquis for years. As a result of all of this swelling, a week or so ago she went to the [facility] and states that they did an ultrasound of her legs to make sure she did not have a blood clot. It was negative. [facility] Medical History Stage 4 chronic kidney disease Aortic stenosis Breast calcification, right Anxiety Hypothyroidism Diabetes Kidney disease Sleep apnea Atrial fibrillation Secondary pulmonary arterial hypertension Sick sinus syndrome Chronic pericarditis with effusion Left bundle branch block (LBBB) Essential hypertension Bradycardia Physical debility Gout Glaucoma Chronic renal failure, stage 3a Osteoarthritis Diabetes mellitus, type 2 Pericardial effusion (08/23/20) LVH (left ventricular hypertrophy) Musculoskeletal back pain PAF (paroxysmal atrial fibrillation) Hemoptysis CLIFFORD (obstructive sleep apnea) Hypersomnolence Nonrheumatic aortic valve stenosis Carotid bruit HLD (hyperlipidemia) Abnormal cardiac enzyme level Hyperthyroidism Home Medications ?Medication ?Instructions ?Recorded ?Last Taken ?Type Oral Appliance #1 ea 03/19/22 Unknown Rx latanoprost 0.005 % eye drops 1 drp EACH EYE HS Check with 03/28/22 11/15/24 History primary doctor [id number] 1 cap PO DAILY supplement 12/01/22 11/16/24 History oil 350 mg-400 mg capsule cholecalciferol (vitamin D3) 125 125 mcg PO DAILY #30 tabs 12/11/22 11/16/24 Rx mcg (5,000 unit) tablet ascorbic acid (vitamin C) 500 mg 500 mg PO DAILY 02/07/23 11/16/24 History capsule cranberry 500 mg capsule 500 mg PO DAILY 02/07/23 Unknown History vibegron 75 mg tablet 75 mg PO DAILY 02/07/23 11/16/24 History doxazosin 4 mg tablet 4 mg PO QHS #90 tabs 05/17/24 11/15/24 Rx carvedilol 25 mg tablet 25 mg PO BID #180 TABLETS 10/19/24 11/16/24 Rx amlodipine 10 mg tablet 10 mg PO DAILY 11/16/24 11/16/24 History apixaban 2.5 mg tablet (Eliquis) 2.5 mg PO BID 11/16/24 11/16/24 History atorvastatin 40 mg tablet 40 mg PO DAILY 11/16/24 11/16/24 History cinnamon bark 500 mg capsule 500 mg PO DAILY 11/16/24 11/16/24 History (Cinnamon) clopidogrel 75 mg tablet 75 mg PO DAILY 11/16/24 11/16/24 History isosorbide mononitrate 30 mg 30 mg PO DAILY 11/16/24 11/16/24 History tablet,extended release 24 hr glimepiride 2 mg tablet 2 mg PO DAILY blood sugar #90 tabs 11/24/24 Unknown Rx levothyroxine 100 mcg tablet 100 mcg PO DAILY #90 tabs 11/24/24 Unknown Rx olmesartan 20 mg tablet 20 mg PO QDAY 12/09/24 Unknown History linaclotide 72 mcg capsule 72 mcg PO QAM #30 caps 12/17/24 Unknown Rx (Linzess) pantoprazole 40 mg tablet,delayed 40 mg PO DAILY #90 tabs 02/14/25 Unknown Rx release furosemide 40 mg tablet 40 mg PO DAILY #7 tabs 02/22/25 Unknown Rx Allergy/AdvReac Type Severity Reaction Status Date / Time benazepril (From Lotensin) Allergy Unknown Verified 02/22/25 13:02 Iodine and Iodide Containing Allergy Shortness Verified 02/22/25 13:02 Produc of breath meperidine (From Demerol) Allergy Unknown Verified 02/22/25 13:02 metformin (From Janumet) Allergy Pain in Verified 02/22/25 13:02 joints Penicillins Allergy Hives Verified 02/22/25 13:02 propoxyphene (From Darvon) Allergy Unknown Verified 02/22/25 13:02 shellfish derived Allergy Shortness Verified 02/22/25 13:02 of breath sitagliptin (From Janumet) Allergy Pain in Verified 02/22/25 13:02 joints spironolactone Allergy Unknown Verified 02/22/25 13:02 rivaroxaban (From Xarelto) AdvReac Severe PERICARDIAL Verified 02/22/25 13:02 EFFUSION adhesive AdvReac Unknown Unknown Verified 02/22/25 13:02 hydrochlorothiazide AdvReac NEEDS Verified 02/22/25 13:02 FOLLOW-UP lisinopril AdvReac NEEDS Verified 02/22/25 13:02 FOLLOW-UP metoprolol AdvReac Shortness Verified 02/22/25 13:02 of breath simvastatin AdvReac Pain in Verified 02/22/25 13:02 joints Family History Mother Cancer Uterine Thyroid disorder Father Cancer lung Hypertension Son Cancer esophageal Surgical History Heart valve replaced S/P TAVR (transcatheter aortic valve replacement) S/P skin biopsy History of permanent cardiac pacemaker placement (06/2018) 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 History of total hysterectomy History of tonsillectomy and adenoidectomy History of parathyroidectomy (2009) History of thyroidectomy, total (2009) Social History household members: spouse number of children: 2 current occupational status: retired current occupation: worked in the [employer] at [employer] Smoking Status: Never smoker Electronic Cigarette Use: not used alcohol intake: never substance use type: does not use caffeine: No do you feel safe at home: Yes ROS ROS ED Constitutional Constitutional ED: Denies chills or fever(s) Eyes Eyes: Denies change in vision or diplopia ENT ENT ED: Denies rhinorrhea or sore throat Cardiovascular Cardiovascular: Reports leg edema; Denies chest pain, orthopnea, palpitations or paroxysmal nocturnal dyspnea Respiratory/Chest Respiratory/Chest: Reports dyspnea on exertion; Denies cough, dyspnea, orthopnea or paroxysmal nocturnal dyspnea Gastrointestinal Gastrointestinal: Denies abdominal pain, diarrhea, nausea or vomiting Genitourinary Genitourinary ED: Denies dysuria or hematuria Musculoskeletal Musculoskeletal: Reports as per HPI and extremity pain; Denies back pain or neck pain Integumentary Denies abscess or rash Neurologic Neurologic: Denies headache(s), paresthesias or weakness Psychiatric Psychiatric: Denies anxiety or suicidal thoughts EXAM Physical Exam Const Vital Signs: 02/22/25 12:59 02/22/25 14:09 02/22/25 14:43 Temperature 97.9 F 98.2 F Temperature Source Oral Oral Pulse Rate 63 60 Respiratory Rate 16 16 Respiratory Effort Normal Non-Labored Respiratory Pattern Normal Blood Pressure 154/54 H 153/67 H Blood Pressure Mean 87 95 Pulse Ox 100 94 Oxygen Delivery Method Room Air Room Air Positive well nourished and well developed General Appearance ED: well developed and NAD HEENT Reports moist mucous membranes normocephalic and atraumatic Eyes PERRL and EOMs intact bilaterally Neck full ROM and supple Resp normal respiratory effort and clear to auscultation bilaterally Cardio regular rate and regular rhythm Cardio Narrative: Systolic murmur 2/6, LLSB GI non-tender and non-distended Auscultation: normoactive bowel sounds Palpation: soft Back/Spine no CVA tenderness General Back: other FROM Extremity normal to inspection and full ROM Extremity Narrative: Diffusely tender from the lateral aspect of the right knee all the way down the lower leg to the lateral ankle. Also similarly tender on the left lower leg. Normal inspection these areas except for edema. General Extremety ED: Yes edema and tenderness; Negative for pulses abnormal General Extremity: edema bilateral lower extremity Details: moderate (Fairly symmetric without signs of cellulitis or venous ulcerations); Negative for pulses abnormal Neuro oriented x3, CN's II-XII intact bilaterally and no sensory deficits noted Sensorium / Orientation: awake and alert Motor Exam: strength 5/5 throughout Skin no rashes or lesions noted and no wounds MDM MDM MDM Narrative Medical decision making narrative: I did labs, her anemia is chronic and likely related to her chronic kidney disease, her creatinine is actually better than it was couple weeks ago at 1.43 with an EGFR of 30. Liver enzymes including her albumin normal. proBNP 1691 when corrected for age within normal limits suggesting she is not in acute decompensated congestive heart failure. Also because she injured her leg and states this all started at the same time, I obtained x-rays of the right tibia/fibula, 2 views negative for acute fracture my interpretation. Given this, it is possible that patient has venous insufficiency, less likely to be valve related given her low proBNP and the fact that this is an aortic valve that was replaced. She can also speak with her cardiothoracic specialist about that later this week when she sees them but for now given her prescription for temporary supply of furosemide until she can follow-up with her doctor. Lab Data Attestation: I reviewed the patient's lab results. Labs: Laboratory Results - last 24 hr 02/22/25 13:45 WBC 5.5 RBC 3.40 L Hgb 9.8 L Hct 31.7 L MCV 93.2 MCH 28.8 MCHC 30.9 L RDW Std Deviation 49.3 H RDW Coeff of Ignacia 14.5 Plt Count 210 MPV 9.9 Immature Gran % (Auto) 0.400 Neut % (Auto) 75.0 H Lymph % (Auto) 15.2 L Mineral % (Auto) 8.1 Eos % (Auto) 1.1 Baso % (Auto) 0.2 Absolute Neuts (auto) 4.2 Absolute Lymphs (auto) 0.84 Nucleated RBC % 0 Sodium 139 Potassium 4.5 Chloride 107 Carbon Dioxide 21.7 Anion Gap 11 BUN 23 H Creatinine 1.43 H Estim Creat Clear Calc 30.00 L Est GFR (MDRD) Non-Af 36 L BUN/Creatinine Ratio 16.2 Glucose 136 H Calcium 10.1 Total Bilirubin 0.82 AST 23 ALT 18 Alkaline Phosphatase 99 NT pro BNP II 1691 Total Protein 7.1 Albumin 4.2 Globulin 2.9 Albumin/Globulin Ratio 1.4 Radiography Diagnostic Testing: Clinical Impression(s) from Imaging Studies Tibia/Fibula X-Ray 02/22/25 14:20 IMPRESSION: Diffuse soft tissue swelling. No fracture is seen. Reading Location: [facility] Discharge Plan Triage Chief Complaint: Edema Other Complaint: Lower Extremity Injury ED Provider: Minor Izaguirre Dx/Rx/DC Orders Clinical Impression: Bilateral lower extremity edema, Contusion of leg, right, Chronic kidney disease (CKD) Instructions: ED Peripheral Edema, Bilateral Prescriptions: New furosemide 40 mg tablet 40 mg PO DAILY Qty: 7 0RF No Action (DME) Oral Appliance See Rx Instructions .ROUTE .MEDSUPPLY Qty: 1 0RF Rx Instructions: As directed vibegron 75 mg tablet 75 mg PO DAILY cranberry 500 mg capsule 500 mg PO DAILY Rx Instructions: administer with meals ascorbic acid (vitamin C) 500 mg capsule 500 mg PO DAILY olmesartan 20 mg tablet 20 mg PO QDAY Linzess 72 mcg capsule 72 mcg PO QAM Qty: 30 2RF latanoprost 0.005 % Drops 1 drp EACH EYE QHS [id number] oil 350-400 mg Capsule 1 cap PO DAILY amlodipine 10 mg tablet 10 mg PO DAILY isosorbide mononitrate 30 mg tablet extended release 24 hr 30 mg PO DAILY clopidogrel 75 mg tablet 75 mg PO DAILY cinnamon bark [Cinnamon] 500 mg capsule 500 mg PO DAILY Eliquis 2.5 mg tablet 2.5 mg PO BID atorvastatin 40 mg tablet 40 mg PO DAILY cholecalciferol (vitamin D3) 125 mcg (5,000 unit) tablet 125 mcg PO DAILY Qty: 30 0RF doxazosin 4 mg tablet 4 mg PO QHS Qty: 90 1RF carvedilol 25 mg tablet 25 mg PO BID Qty: 180 1RF glimepiride 2 mg tablet 2 mg PO DAILY Qty: 90 1RF levothyroxine 100 mcg tablet 100 mcg PO DAILY Qty: 90 1RF pantoprazole 40 mg tablet,delayed release (DR/EC) 40 mg PO DAILY Qty: 90 0RF Primary Care Provider: Chiara Triana Referrals: Your cardiothoracic surgeon [Other] - Keep Jones appointment Chiara Triana MD [Primary Care Provider] - As soon as possible Activity Restrictions/Additional Instructions: Today in the ER your creatinine is 1.43, better than the 1.81 you had a couple weeks ago. Your albumin is normal at 4.2. Your proBNP is 1691, within normal limits when corrected for age, arguing against acute decompensated congestive heart failure. Print Language: Italian Disposition Disposition: Home, Self Care
== END 2025-02-22 16:25 | disposition home or self-care (01) ==
PROVIDERS: Emergency Provider Emergency Medicine; PCP Internal Medicine; Visit Provider Emergency Medicine
DX: R60.0 Localized edema (principal); I48.0 Paroxysmal atrial fibrillation; E11.22 Type 2 diabetes mellitus with diabetic chronic kidney disease; S80.11XA Contusion of right lower leg, initial encounter; W19.XXXA Unspecified fall, initial encounter; R06.09 Other forms of dyspnea; I35.0 Nonrheumatic aortic (valve) stenosis; D64.9 Anemia, unspecified; F41.9 Anxiety disorder, unspecified; E03.9 Hypothyroidism, unspecified; I12.9 Hypertensive chronic kidney disease with stage 1 through stage 4 chronic kidney disease, or unspecified chronic kidney disease; N18.9 Chronic kidney disease, unspecified; E78.5 Hyperlipidemia, unspecified; M19.90 Unspecified osteoarthritis, unspecified site; G47.33 Obstructive sleep apnea (adult) (pediatric); Z95.2 Presence of prosthetic heart valve; Z79.02 Long term (current) use of antithrombotics/antiplatelets; Z79.84 Long term (current) use of oral hypoglycemic drugs; Z79.01 Long term (current) use of anticoagulants; Z79.899 Other long term (current) drug therapy; Z79.890 Hormone replacement therapy
CPT/HCPCS: 73590; 80053; 83880; 85025; 99283; A4216

== ENCOUNTER → 2025-04-13 | Outpatient (CLI) | payer MEDICARE, SELFPAY ==
[2025-01-05 14:09] VITALS: BMI 35.4
[2025-04-13 12:07] LABS: Creatinine, Urine (random) 82.80 mg/dL (28.00-217.00); Protein, Urine (Random) 11.4 mg/dL (0.0-12.0); Protein:Creat Ratio 138 mg/g CRE (0-200)
[2025-04-13 12:43] LABS: PTHIN 99 pg/mL (11-61)
[2025-04-13 14:24] LABS: Vitamin D,25 Hydroxy 39.9 ng/mL (30-100)
[2025-04-13 14:47] LABS: Albumin, Serum 4.0 g/dL (3.4-4.8); Anion Gap 12 (5-15); BUN 34 mg/dL (4-19); BUN/Creat Ratio 22.0 RATIO (10-20); Calcium,Total 9.9 mg/dL (7.6-11.0); Carbon Dioxide 20.5 mmol/L (21.0-32.0); Chloride 107 mmol/L (98-108); Glucose 121 mg/dL (70-99); Potassium 4.3 mmol/L (3.3-5.1)
== END | disposition home or self-care (01) ==
PROVIDERS: PCP Internal Medicine; Referring Provider Internal Medicine Nephrology; Visit Provider Internal Medicine Nephrology
DX: E11.22 Type 2 diabetes mellitus with diabetic chronic kidney disease (principal); N18.32 Chronic kidney disease, stage 3b
CPT/HCPCS: 36415; 80069; 82306; 82570; 83970; 84156

== ENCOUNTER → 2025-05-13 | Outpatient (CLI) | payer MEDICARE, SELFPAY ==
[2025-01-05 14:09] VITALS: BMI 35.4
[2025-05-13 12:28] LABS: Hematocrit 30.3 % (37-47); Hemoglobin 9.4 g/dL (12.0-15.0); Immature Granulocytes Count 0.030 X10^3/uL (0.0-0.0); Mean Corp Hgb Conc 31.0 g/dL (32-36); Mean Corpuscular Volume 90.4 fL (81-99); Mean Platelet Vol. 9.4 fl (6.2-12.0); NRBC Flagged by Analyzer 0 % (0-5); Platelet Count 198 K/mm3 (150-450); RBC Distribution Width CV 15.2 % (11.6-14.6); RBC Distribution Width SD 49.5 fl (35.1-43.9); Red Blood Count 3.35 M/mm3 (4.2-5.4); White Blood Count 6.1 K/mm3 (4.4-11.0)
[2025-05-13 13:22] LABS: Pro- Brain NATRIURETIC PEPTIDE 2947 pg/mL (<=1800)
== END | disposition home or self-care (01) ==
LOC: LAB 12:15
PROVIDERS: PCP Internal Medicine; Referring Provider Student in an Organized Health Care Education/Training Program; Visit Provider Student in an Organized Health Care Education/Training Program
DX: D64.9 Anemia, unspecified (principal); R06.02 Shortness of breath
CPT/HCPCS: 36415; 83880; 85025

== ENCOUNTER → 2025-05-19 | Outpatient (CLI) | payer MEDICARE, SELFPAY ==
[2025-01-05 14:09] VITALS: BMI 35.4
== END | disposition home or self-care (01) ==
LOC: LABSPEC 13:33
PROVIDERS: PCP Internal Medicine; Referring Provider Nurse Practitioner Family; Visit Provider Nurse Practitioner Family
DX: D64.9 Anemia, unspecified (principal)
CPT/HCPCS: 82274

== ENCOUNTER → 2025-05-27 | Outpatient (CLI) | payer MEDICARE, SELFPAY ==
[2025-01-05 14:09] VITALS: BMI 35.4
[2025-05-27 13:55] LABS: Anion Gap 13 (5-15); BUN 56 mg/dL (4-19); BUN/Creat Ratio 31.5 RATIO (10-20); Calcium,Total 9.9 mg/dL (7.6-11.0); Carbon Dioxide 22.1 mmol/L (21.0-32.0); Chloride 101 mmol/L (98-108); Glucose 129 mg/dL (70-99); Potassium 4.1 mmol/L (3.3-5.1)
== END | disposition home or self-care (01) ==
LOC: LAB 11:51
PROVIDERS: PCP Internal Medicine; Referring Provider Student in an Organized Health Care Education/Training Program; Visit Provider Student in an Organized Health Care Education/Training Program
DX: R06.02 Shortness of breath (principal)
CPT/HCPCS: 36415; 80048

== ENCOUNTER → 2025-05-31 | Outpatient (CLI) | payer MEDICARE, SELFPAY ==
[2025-01-05 14:09] VITALS: BMI 35.4
[2025-05-31 12:46] LABS: Hematocrit 28.5 % (37-47); Hemoglobin 9.1 g/dL (12.0-15.0); Immature Granulocytes Count 0.010 X10^3/uL (0.0-0.0); Immature Reticulocyte Fraction 16.70 % (3.00-15.90); Mean Corp Hgb Conc 31.9 g/dL (32-36); Mean Corpuscular Volume 88.0 fL (81-99); Mean Platelet Vol. 9.8 fl (6.2-12.0); NRBC Flagged by Analyzer 0 % (0-5); Platelet Count 203 K/mm3 (150-450); RBC Distribution Width CV 14.9 % (11.6-14.6); RBC Distribution Width SD 48.0 fl (35.1-43.9); Red Blood Count 3.24 M/mm3 (4.2-5.4); Reticulocyte Count 1.49 % (0.5-1.5); White Blood Count 4.6 K/mm3 (4.4-11.0)
[2025-05-31 13:54] LABS: Iron 31 ug/dL (50-170); Iron Binding Capacity,Total 430 ug/dL (250-450); Iron Binding Capacity,Unsat 399 ug/dL (228-428); Vitamin B12 349 pg/mL (180-914)
== END | disposition home or self-care (01) ==
LOC: LAB 11:53
PROVIDERS: PCP Internal Medicine; Referring Provider Nurse Practitioner Family; Visit Provider Nurse Practitioner Family
DX: D64.9 Anemia, unspecified (principal)
CPT/HCPCS: 36415; 82607; 82668; 83540; 83550; 85025; 85045

== ENCOUNTER → 2025-06-08 | Outpatient (CLI) | payer MEDICARE, SELFPAY ==
[2025-01-05 14:09] VITALS: BMI 35.4
[2025-06-08 14:49] LABS: Hematocrit 30.0 % (37-47); Hemoglobin 9.6 g/dL (12.0-15.0); Mean Corp Hgb Conc 32.0 g/dL (32-36); Mean Corpuscular Volume 88.5 fL (81-99); Mean Platelet Vol. 9.5 fl (6.2-12.0); Platelet Count 218 K/mm3 (150-450); RBC Distribution Width CV 15.8 % (11.6-14.6); RBC Distribution Width SD 49.3 fl (35.1-43.9); Red Blood Count 3.39 M/mm3 (4.2-5.4); White Blood Count 4.4 K/mm3 (4.4-11.0)
[2025-06-08 16:40] LABS: Albumin, Serum 4.2 g/dL (3.4-4.8); Anion Gap 13 (5-15); BUN 55 mg/dL (4-19); BUN/Creat Ratio 29.6 RATIO (10-20); Calcium,Total 10.3 mg/dL (7.6-11.0); Carbon Dioxide 22.9 mmol/L (21.0-32.0); Chloride 103 mmol/L (98-108); Glucose 120 mg/dL (70-99); Potassium 3.8 mmol/L (3.3-5.1)
== END | disposition home or self-care (01) ==
LOC: LAB 12:45
PROVIDERS: PCP Internal Medicine; Referring Provider Internal Medicine Nephrology; Visit Provider Internal Medicine Nephrology
DX: N18.32 Chronic kidney disease, stage 3b (principal)
CPT/HCPCS: 36415; 80069; 85027

== ENCOUNTER → 2025-06-09 | Outpatient (CLI) | payer MEDICARE, SELFPAY ==
[2025-01-05 14:09] VITALS: BMI 35.4
[2025-06-09 11:50] LABS: Creatinine, Urine (random) 44.80 mg/dL (28.00-217.00); Protein, Urine (Random) 6.4 mg/dL (0.0-12.0); Protein:Creat Ratio 142 mg/g CRE (0-200)
== END | disposition home or self-care (01) ==
LOC: LAB 11:10
PROVIDERS: PCP Internal Medicine; Referring Provider Internal Medicine Nephrology; Visit Provider Internal Medicine Nephrology
DX: N18.32 Chronic kidney disease, stage 3b (principal)
CPT/HCPCS: 82570; 84156

== ENCOUNTER → 2025-06-14 | Outpatient (CLI) | payer MEDICARE, SELFPAY ==
[2025-01-05 14:09] VITALS: BMI 35.4
[2025-06-14 13:44] LABS: Anion Gap 14 (5-15); BUN 44 mg/dL (4-19); BUN/Creat Ratio 21.2 RATIO (10-20); Calcium,Total 10.3 mg/dL (7.6-11.0); Carbon Dioxide 24.3 mmol/L (21.0-32.0); Chloride 100 mmol/L (98-108); Glucose 124 mg/dL (70-99); Potassium 3.8 mmol/L (3.3-5.1)
== END | disposition home or self-care (01) ==
LOC: LAB 11:08
PROVIDERS: PCP Internal Medicine; Referring Provider Student in an Organized Health Care Education/Training Program; Visit Provider Student in an Organized Health Care Education/Training Program
DX: I27.21 Secondary pulmonary arterial hypertension (principal); R06.02 Shortness of breath
CPT/HCPCS: 36415; 80048

== ENCOUNTER → 2025-06-15 | Outpatient (CLI) | payer MEDICARE, SELFPAY ==
[2025-01-05 14:09] VITALS: BMI 35.4
--- NOTE | 2025-06-15 12:37 | ECHOD_ITS ---
Reason For Study Reason For Study: SOB, TAVR Procedure This was a 2D Doppler, Color Flow transthoracic echocardiogram. Exam performed in department. Left Ventricle Normal LV size. The left ventricular ejection fraction is 60 %. Stage 3 diastolic dysfunction. No regional wall motion abnormalities noted. Right Ventricle Moderately dilated right ventricle. ICD or pacer leads identified within the right ventricle. Normal systolic function. Atria The left atrium is mildly enlarged. The right atrium is mildly enlarged. Mitral Valve Normal mitral valve. Mild (1+) eccentric mitral valve insufficiency. Tricuspid Valve Normal tricuspid valve. Mild (1+) tricuspid valve insufficiency. Pulmonary artery systolic pressure is 38 mmHg. Aortic Valve Peak aortic valve gradient 19 mmHg. Mean aortic valve gradient 11 mmHg. Bioprosthetic aortic valve. Pulmonic Valve Normal pulmonic valve. Mild pulmonic valve insufficiency identified. Great Vessels Normal aortic root. The pulmonary artery is normal size. Inferior vena cava collapse with respiration. Pericardium/Pleural No pericardial effusion. MMode/2D Measurements & Calculations LVIDd: 4.8 cm IVSd: 1.2 cm LVOT diam: 2.0 cm LVIDs: 3.6 cm LVPWd: 0.97 cm LVOT area: 3.0 cm2 RVDd: 4.4 cm FS: 24.5 % LAV(MOD-bp): 103.6 ml LVAd ap4: 21.4 cm2 SV(MOD-sp4): 39.4 ml LAV(MOD-bp) Indexed: 55.0 ml/m2 LVLd ap4: 5.9 cm SI(MOD-sp4): 21.0 ml/m2 LAV(MOD-sp2): 100.4 ml EDV(MOD-sp4): 64.4 ml LAV(MOD-sp4): 97.1 ml EDV(sp4-el): 65.9 ml LVAs ap4: 13.1 cm2 LVLs ap4: 5.8 cm ESV(MOD-sp4): 25.0 ml ESV(sp4-el): 25.1 ml EF(MOD-sp4): 61.2 % EF(sp4-el): 61.9 % SV(sp4-el): 40.8 ml LA A4 area: 27.1 cm2 LA dimension(2D): 4.5 cm RA A4 area: 24.0 cm2 TAPSE: 1.6 cm Time Measurements MV dec time: 0.20 sec Doppler Measurements & Calculations MV E max jose: 134.5 cm/sec Lat Peak E' Jose: 8.4 cm/sec Med Peak E' Jose: 4.5 cm/sec MV A max jose: 43.5 cm/sec E/E' lat: 16.0 E/E' med: 29.8 MV E/A: 3.1 MV V2 max: 136.4 cm/sec MV P1/2t max jose: 131.6 cm/sec Ao V2 max: 218.5 cm/sec MV max P.4 mmHg MV P1/2t: 58.8 msec Ao max P.1 mmHg MV V2 mean: 60.5 cm/sec Ao V2 mean: 161.9 cm/sec MV mean P.9 mmHg MV dec slope: 655.5 cm/sec2 Ao mean P.3 mmHg MV V2 VTI: 33.9 cm MVA(P1/2t): 3.7 cm2 Ao V2 VTI: 51.3 cm AV (velocity ratio): 0.53 MVA(VTI): 2.4 cm2 STEVE(I,D): 1.6 cm2 STEVE(V,D): 1.6 cm2 LV V1 max: 114.4 cm/sec MR max jose: 488.3 cm/sec SV(LVOT): 81.5 ml LV V1 max P.3 mmHg MR max P.4 mmHg LV V1 mean P.1 mmHg LV V1 mean: 84.5 cm/sec LV V1 VTI: 26.9 cm PA V2 max: 90.5 cm/sec PI dec slope: 89.3 cm/sec2 TR max jose: 292.3 cm/sec PA V2 mean: 56.1 cm/sec TR max P.2 mmHg PA V2 VTI: 18.6 cm ECHO/Echo Complete Interpretation Summary Normal LV size. The left ventricular ejection fraction is 60 %. Bioprosthetic aortic valve. Mean aortic valve gradient 11 mmHg. Stage 3 diastolic dysfunction. Pulmonary artery systolic pressure is 38 mmHg. Ordering Physician: Edgar Thompson Referring Physician: Chiara Triana Performed By: Dior Leal, RDCS, RVT
== END | disposition home or self-care (01) ==
LOC: CVS 12:37
PROVIDERS: PCP Internal Medicine; Referring Provider Student in an Organized Health Care Education/Training Program; Visit Provider Student in an Organized Health Care Education/Training Program
DX: I35.0 Nonrheumatic aortic (valve) stenosis (principal); R06.02 Shortness of breath
CPT/HCPCS: 93306

== ENCOUNTER → 2025-06-17 | Outpatient (CLI) | payer MEDICARE, SELFPAY ==
[2025-01-05 14:09] VITALS: BMI 35.4
== END | disposition home or self-care (01) ==
LOC: SL 14:52
PROVIDERS: PCP Internal Medicine; Visit Provider Nurse Practitioner Acute Care
DX: Z46.89 Encounter for fitting and adjustment of other specified devices (principal)

== ENCOUNTER → 2025-06-22 | Outpatient (CLI) | payer MEDICARE, SELFPAY ==
[2025-01-05 14:09] VITALS: BMI 35.4
== END | disposition home or self-care (01) ==
LOC: SL 14:01
PROVIDERS: PCP Internal Medicine; Referring Provider Nurse Practitioner Acute Care; Visit Provider Nurse Practitioner Acute Care
DX: Z00.00 Encounter for general adult medical examination without abnormal findings (principal)

== ENCOUNTER → 2025-06-29 | Outpatient (CLI) | payer MEDICARE, SELFPAY ==
[2025-01-05 14:09] VITALS: BMI 35.4
[2025-06-29 13:44] LABS: Anion Gap 13 (5-15); BUN 52 mg/dL (4-19); BUN/Creat Ratio 28.0 RATIO (10-20); Calcium,Total 9.8 mg/dL (7.6-11.0); Carbon Dioxide 21.7 mmol/L (21.0-32.0); Chloride 104 mmol/L (98-108); Glucose 188 mg/dL (70-99); Potassium 4.3 mmol/L (3.3-5.1)
== END | disposition home or self-care (01) ==
LOC: LAB 12:40
PROVIDERS: PCP Internal Medicine; Referring Provider Student in an Organized Health Care Education/Training Program; Visit Provider Student in an Organized Health Care Education/Training Program
DX: I25.10 Atherosclerotic heart disease of native coronary artery without angina pectoris (principal); R06.02 Shortness of breath
CPT/HCPCS: 36415; 80048

== ENCOUNTER 2025-07-07 23:10 | Emergency (ER) | payer MEDICARE, SELFPAY ==
[2025-01-05 14:09] VITALS: BMI 35.4
[2025-07-07 23:10] VITALS: BP 145/77; PULSE 58; RESP 18; TEMP 36.6; O2SAT 98
[2025-07-07 23:24] VITALS: O2SAT 99
[2025-07-07 23:40] LABS: Hematocrit 31.6 % (37-47); Hemoglobin 10.0 g/dL (12.0-15.0); Immature Granulocytes Count 0.030 X10^3/uL (0.0-0.0); Mean Corp Hgb Conc 31.6 g/dL (32-36); Mean Corpuscular Volume 90.0 fL (81-99); Mean Platelet Vol. 9.8 fl (6.2-12.0); NRBC Flagged by Analyzer 0 % (0-5); Platelet Count 179 K/mm3 (150-450); RBC Distribution Width CV 17.0 % (11.6-14.6); RBC Distribution Width SD 56.0 fl (35.1-43.9); Red Blood Count 3.51 M/mm3 (4.2-5.4); White Blood Count 6.4 K/mm3 (4.4-11.0)
--- NOTE | 2025-07-07 23:50 | RAD_ITS ---
PROCEDURE: CHEST 1 VIEW (PORTABLE) 07/07/2025 REASON FOR EXAM: CHEST PAIN TECHNIQUE: Frontal view of the chest. COMPARISON: None. FINDINGS: AICD is in good position. The lungs are expanded. There is no demonstrated parenchymal abnormality. There is no demonstrated pleural abnormality. Enlarged cardiac silhouette. Normal mediastinum and cookie. Normal visualized pulmonary arteries. Atheromatous plaques of the visualized aortic arch and descending thoracic aorta. Diffuse spondylosis of the visualized thoracic spine. Normal visualized ribs, clavicles. Degenerative joint disease. There is no demonstrated abnormality of the visualized soft tissue structures of the upper abdomen. RAD/Chest 1 View (Portable) IMPRESSION: No evidence for acute abnormality. Reading [facility]
[2025-07-08] VITALS (9 sets, daily range): BP systolic 115–139; BP diastolic 61–78; PULSE 51–58; RESP 12–18; TEMP 36.5; O2SAT 92–99
--- NOTE | 2025-07-08 00:06 | CT_ITS ---
PROCEDURE: ABDOMEN/PELVIS WITHOUT CONT 07/08/2025 REASON FOR EXAM: LEFT FLANK PAIN TECHNIQUE: Procedure Code: CTABDPEL Modality: CT Procedure: ABDOMEN/PELVIS WITHOUT CONT Noncontrast technique limits evaluation of the abdominal and pelvic viscera. Coronal and Sagittal reconstruction series were provided. One or more dose reduction techniques were used (e.g., Automated exposure control, adjustment of the mA and/or kV according to patient size, use of iterative reconstruction technique). RADIATION DOSE SUMMARY: CTDI Vol 13.71 mGy DLP :713.64 mGycm COMPARISON: none FINDINGS: Average sized liver showing homogenous parenchymal attenuation. No dilated intra or extra-hepatic biliary tracts. Gall bladder large 16 mm calculus with mild mural thickening/edema. No sizeable related collections. Normal unenhanced appearance of the pancreas with clear surrounding fat planes. The unenhanced spleen, aorta and IVC are unremarkable. Thickened adrenal glands Vascular atheromatous calcifications. Both kidneys are of average size and showing smooth outline with preserved parenchymal thickness. No renal calculi. No hydronephrosis. Left renal parapelvic and right renal hypodense cortical cysts. Mild perinephric fat stranding. Distension of the urinary bladder showing no obvious masses. No obvious masses related to the pelvic viscera. Pelvic phleboli noted. Anterior abdominal wall scar. Mild generalized pelviabdominal wall subcutaneous soft tissue edema. The appendix is not identified. Colonic diverticulosis. No diverticulitis. Colonic fecal loading. The small bowel loops are unremarkable. The stomach is unremarkable. Minimal ascites. No free air. No obvious pathologically enlarged lymph nodes. Scanned osseous structures show L5 over S1 1st degree anterolithesis. No osseous destruction. Thoracolumbar spondylosis. Scanned lung bases show basal atelectatic changes. mild right pleural effusion. Cardiomegaly with pacemaker. CT/Abdomen/Pelvis without Cont IMPRESSION: Gall bladder calculus with mild wall edema, possibly cholecystitis. Advise clin ical correlation. Colonic diverticulosis. No diverticulitis. Minimal ascites. Mild right pleural effusion. Reading Location: [place] [id number]
[2025-07-08 00:14] LABS: Anion Gap 13 (5-15); BUN 57 mg/dL (4-19); BUN/Creat Ratio 28.8 RATIO (10-20); Calcium,Total 10.1 mg/dL (7.6-11.0); Carbon Dioxide 21.5 mmol/L (21.0-32.0); Chloride 102 mmol/L (98-108); Glucose 156 mg/dL (70-99); Potassium 4.1 mmol/L (3.3-5.1); Troponin T High Sensitivity 19 ng/L (<=14)
[2025-07-08] MEDS: 0.9% Normal Saline (500mL Bag) 500 ML 999 ML IV (00:22)
[2025-07-08 03:00] LABS: Mucous, Urine 0 SEEN /hpf (<or=2+); Red Blood Cells-Urine 0 SEEN /hpf (0-5); Squamous Epithelial Cells - UA 0 SEEN /hpf (5-10)
[2025-07-08 03:02] LABS: Color, Urine Straw (Yellow); Glucose, Dipstick Normal (Normal); Ketone-Dipstick Negative (Negative); Leukocyte Esterase-Dipstick Negative /ul (Negative); Nitrite-Dipstick Negative (Negative); Occult Blood-Urine Negative /ul (Negative); Protein-Dipstick 15 mg/dl (Negative); Specific Gravity, Urine 1.015 (1.002-1.030); Urine Bilirubin Dipstick Negative (Negative)
[2025-07-08 03:22] LABS: Troponin T High Sens 2 HR 18 ng/L (<=14)
[2025-07-08 03:22] LABS: Lipase 64 U/L (13-75)
[2025-07-08 03:33] LABS: AST(SGOT) 29 U/L (<=31); Alanine Aminotransfer ALT/SGPT 34 U/L (<=34); Albumin, Serum 4.4 g/dL (3.4-4.8); Alkaline Phosphatase 99 U/L (35-104); Bilirubin, Direct 0.36 mg/dL (0.00-0.30); Globulin 2.7 g/dL (2.2-4.2)
--- NOTE | 2025-07-08 03:58 | US_ITS ---
PROCEDURE: GALLBLADDER 07/08/2025 REASON FOR EXAM: ? ACUTE CHOLECYSTITIS TECHNIQUE: Procedure Code: USGB Modality: US Procedure: GALLBLADDER COMPARISON: July 08, 2025 FINDINGS: Liver: Mildly heterogeneous. Decreased acoustic penetration. Periportal echoes are preserved. Portal vein is patent and primarily hepatopetal but there is a pulsatile pattern present. Gallbladder: Gallstone is present within the gallbladder lumen. Gallbladder wall thickening measuring at least 6 mm. Negative sonographic Salcido's sign. Common bile duct: Normal measuring 3.4 mm. Pancreas: The pancreatic head, neck and body appear normal. The tail is not seen. Technologist measured a small hypoechoic focus but this represents normal vasculature despite the absence of color flow when compared to recent CT. Other: Trace perihepatic fluid. Right kidney is 8.7 x 5.6 x 4.4 cm. Simple cyst at the superior pole is 2.7 x 2.7 x 3.1 cm. US/Gallbladder IMPRESSION: 1. Mild heterogeneous appearance of the uterus. Morphology is not particularl y cirrhotic. Portal vein is patent with pulsatile pattern. This can be seen with liver dysfunction but also in the setting of ca rdiac dysfunction including right heart failure, tricuspid valve regurgitation. Correlate with cardiac history. 2. Gallstone in the gallbladder wall. Gallbladder wall is thickened. Negativ e sonographic Salcido's sign. This may be from 3rd spacing rather than acute cholecystitis. Recommend correlation with physical e xam and laboratory values. If this is equivocal, HIDA scanning may be helpful. No biliary ductal dilation. 3. Simple cyst right kidney. Bosniak 1. No follow-up required. Reading Location: [id number]
--- NOTE | 2025-07-08 07:08 | EX.ED.DYSGE1 ---
HPI History of Present Illness Chief Complaint: Chest Pain Informant: patient and spouse/S.O. Narrative Narrative: Patient is a 85-year-old female with past medical history of sick sinus syndrome status post pacemaker as well as chronic kidney disease and [id number] diabetes. She states that a few hours ago she was seen at rest when she developed a pain/discomfort along the left flank/back region that radiated towards the chest. She states she got nauseous with the onset of the pain. She denied any active vomiting. She states there is no associated shortness of breath or diaphoresis. She states symptoms have improved but not resolved. She denies any recent trauma or physical activity. She states she was unsure if the symptoms are related to a cardiovascular event and therefore comes in for evaluation [facility] Medical History Iron deficiency anemia Chronic renal failure Anemia Constipation Vaginal atrophy Nocturnal enuresis Urge incontinence Overactive bladder Aortic stenosis Stage 4 chronic kidney disease Breast calcification, right Anxiety Hypothyroidism Diabetes Kidney disease Sleep apnea Atrial fibrillation Secondary pulmonary arterial hypertension Sick sinus syndrome Chronic pericarditis with effusion Left bundle branch block (LBBB) Essential hypertension Bradycardia Physical debility Gout Glaucoma Chronic renal failure, stage 3a Osteoarthritis Diabetes mellitus, type 2 Pericardial effusion (08/23/20) LVH (left ventricular hypertrophy) Musculoskeletal back pain PAF (paroxysmal atrial fibrillation) Hemoptysis CLIFFORD (obstructive sleep apnea) Hypersomnolence Nonrheumatic aortic valve stenosis Carotid bruit HLD (hyperlipidemia) Abnormal cardiac enzyme level Hyperthyroidism Home Medications ?Medication ?Instructions ?Recorded ?Last Taken ?Type Oral Appliance #1 ea 03/19/22 Unknown Rx latanoprost 0.005 % eye drops 1 drp EACH EYE QHS Check with 03/28/22 11/15/24 History primary doctor [id number] 1 cap PO DAILY supplement 12/01/22 11/16/24 History oil 350 mg-400 mg capsule cholecalciferol (vitamin D3) 125 125 mcg PO DAILY #30 tabs 12/11/22 11/16/24 Rx mcg (5,000 unit) tablet ascorbic acid (vitamin C) 500 mg 500 mg PO DAILY 02/07/23 11/16/24 History capsule cranberry 500 mg capsule 500 mg PO DAILY 02/07/23 Unknown History doxazosin 4 mg tablet 4 mg PO QHS #90 tabs 05/17/24 11/15/24 Rx carvedilol 25 mg tablet 25 mg PO BID #180 TABLETS 10/19/24 11/16/24 Rx amlodipine 10 mg tablet 10 mg PO DAILY 11/16/24 11/16/24 History apixaban 2.5 mg tablet (Eliquis) 2.5 mg PO BID 11/16/24 11/16/24 History cinnamon bark 500 mg capsule 500 mg PO DAILY 11/16/24 11/16/24 History (Cinnamon) isosorbide mononitrate 30 mg 30 mg PO DAILY 11/16/24 11/16/24 History tablet,extended release 24 hr olmesartan 20 mg tablet 20 mg PO QDAY 12/09/24 Unknown History pantoprazole 40 mg tablet,delayed 40 mg PO DAILY #90 tabs 05/12/25 Unknown Rx release estradiol 0.01% (0.1 mg/gram) 1 g vaginal 3XW 3 months #42.5 05/17/25 Unknown Rx vaginal cream grams clopidogrel 75 mg tablet 75 mg PO DAILY #90 tabs 05/20/25 Unknown Rx glimepiride 2 mg tablet 2 mg PO DAILY blood sugar #90 tabs 05/20/25 Unknown Rx levothyroxine 100 mcg tablet 100 mcg PO DAILY #90 tabs 05/23/25 Unknown Rx atorvastatin 20 mg tablet 20 mg PO QDAY 05/24/25 Unknown History ferrous sulfate 325 mg (65 mg 325 mg PO BID #60 tabs 06/02/25 Unknown Rx iron) tablet (Iron (ferrous sulfate)) torsemide 20 mg tablet 10 mg PO QAM 06/16/25 Unknown History BIPAP -Bilevel Positive Airway 06/21/25 Unknown History Pressure ([facility] INFORMATIONAL USE ONLY) Allergy/AdvReac Type Severity Reaction Status Date / Time benazepril (From Lotensin) Allergy Unknown Verified 07/07/25 23:12 Iodine and Iodide Containing Allergy Shortness Verified 07/07/25 23:12 Produc of breath meperidine (From Demerol) Allergy Unknown Verified 07/07/25 23:12 metformin (From Janumet) Allergy Pain in Verified 07/07/25 23:12 joints Penicillins Allergy Hives Verified 07/07/25 23:12 propoxyphene (From Darvon) Allergy Unknown Verified 07/07/25 23:12 shellfish derived Allergy Shortness Verified 07/07/25 23:12 of breath sitagliptin (From Janumet) Allergy Pain in Verified 07/07/25 23:12 joints spironolactone Allergy Unknown Verified 07/07/25 23:12 rivaroxaban (From Xarelto) AdvReac Severe PERICARDIAL Verified 07/07/25 23:12 EFFUSION adhesive AdvReac Unknown Unknown Verified 07/07/25 23:12 hydrochlorothiazide AdvReac NEEDS Verified 07/07/25 23:12 FOLLOW-UP lisinopril AdvReac NEEDS Verified 07/07/25 23:12 FOLLOW-UP metoprolol AdvReac Shortness Verified 07/07/25 23:12 of breath simvastatin AdvReac Pain in Verified 07/07/25 23:12 joints Family History Mother Cancer Uterine Thyroid disorder Father Cancer lung Hypertension Son Cancer esophageal Surgical History (Updated 07/08/25 @ 07:[address] 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 History of total hysterectomy History of tonsillectomy and adenoidectomy History of parathyroidectomy (2009) History of thyroidectomy, total (2009) Social History household members: spouse number of children: 2 current occupational status: retired current occupation: worked in the [employer] at [employer] Smoking Status: Never smoker Electronic Cigarette Use: not used alcohol intake: never substance use type: does not use caffeine: No do you feel safe at home: Yes ROS ROS ED Constitutional Constitutional ED: Denies chills or fever(s) Eyes Eyes: Denies blurry vision or change in vision ENT ENT ED: Denies sore throat Cardiovascular Cardiovascular: Reports chest pain; Denies palpitations or racing heartbeat Respiratory/Chest Respiratory/Chest: Denies cough or dyspnea Gastrointestinal Gastrointestinal: Reports abdominal pain and nausea; Denies diarrhea or vomiting Genitourinary Genitourinary ED: Denies dysuria or hematuria Musculoskeletal Musculoskeletal: Reports back pain Integumentary Denies rash Neurologic Neurologic: Denies headache(s) Hematologic/Lymphatic Hematologic/Lymphatic: Reports easy bleeding and easy bruising EXAM Physical Exam Const Vital Signs: 07/07/25 23:10 07/07/25 23:24 07/08/25 00:10 Temperature 97.8 F Temperature Source Oral Pulse Rate 58 L 51 L Respiratory Rate 18 16 Blood Pressure 145/77 H 129/68 H Blood Pressure Mean 99 88 Pulse Ox 98 99 98 Oxygen Delivery Method Room Air Room Air Room Air 07/08/25 02:00 07/08/25 03:00 07/08/25 04:00 Temperature Temperature Source Pulse Rate 55 L 55 L 55 L Respiratory Rate 18 18 16 Blood Pressure 134/65 H 131/65 H Blood Pressure Mean 88 87 Pulse Ox 96 94 92 Oxygen Delivery Method Room Air Room Air Room Air 07/08/25 05:00 07/08/25 06:00 07/08/25 07:00 Temperature Temperature Source Pulse Rate 55 L 55 L 55 L Respiratory Rate 18 16 15 Blood Pressure 131/61 H 136/62 H 139/68 H Blood Pressure Mean 84 86 91 Pulse Ox 97 97 96 Oxygen Delivery Method Room Air Room Air Room Air 07/08/25 08:00 Temperature Temperature Source Pulse Rate 58 L Respiratory Rate 12 Blood Pressure 115/78 Blood Pressure Mean 90 Pulse Ox 99 Oxygen Delivery Method Room Air Positive well nourished and well developed General Appearance ED: well developed; Negative for pallor HEENT HEENT Narrative: Normocephalic atraumatic Eyes PERRL and EOMs intact bilaterally General Eye ED: Negative for scleral icterus Neck supple Neck Narrative: No nuchal rigidity or meningeal signs Chest Wall palpation of chest normal Chest Narrative: No bony deformity or reproducible pain with palpation Resp normal respiratory effort and clear to auscultation bilaterally Resp Narrative: Breath sounds are diminished throughout but overall clear to auscultation without signs of respiratory distress Cardio regular rate and regular rhythm Rate: other Other Details: Radial and carotid pulses are equal and symmetric GI non-distended and no masses GI Narrative: Abdomen soft and nondistended with normal active bowel sounds. There is faint pain on palpation along the left lateral upper abdominal region. No voluntary guarding or rigidity. No pulsatile mass or fluid wave. Negative Salcido sign Auscultation: normoactive bowel sounds Palpation: soft Back/Spine Back/Spine Narrative: Faint left CVA pain noted Extremity Extremity Narrative: +1 pitting edema to the bilateral lower extremities that is equal and symmetric. Negative Homans' sign bilaterally Neuro oriented x3, CN's II-XII intact bilaterally and no sensory deficits noted Sensorium / Orientation: alert Motor Exam: strength 5/5 throughout Psych mental status grossly normal Skin no rashes or lesions noted and no wounds Skin Narrative: No overlying soft tissue changes to suggest trauma or infection General Skin Exam: Negative for jaundice or pallor MDM MDM MDM Narrative Medical decision making narrative: Patient arrived to the ER with stable vitals. She reported sudden onset of left-sided abdominal/flank pain without trauma or excessive activity. With the report of sudden onset of pain as well as nausea associated with it I felt this was most likely from potential kidney stone. However the patient has a history of coronary artery disease and secondary to this a basic cardiac workup will be obtained as well. EKG showed a paced rhythm which correlates with her past medical history without signs of pacemaker malfunction. Initial troponin was 19 and delta open reduced by 1 point to a value of 18 which is not clinically significant goes against active cardiac event. Chest x-ray revealed no acute lung pathology as the cause such as pneumonia or pneumothorax. A noncontrast CT of the abdomen pelvis was performed as there was high likelihood that the pain was secondary to a kidney stone. However the CT scan did not reveal any type of kidney stone but did document a large gallstone with potential thickening concerning for acute cholecystitis. Secondary to this lipase and liver enzymes were obtained which were overall normal. The patient had resolution of pain nausea with Toradol and Zofran. She does not have pain in the right upper quadrant/negative Salcido sign but occasionally a vague left-sided abdominal discomfort can be related to the gallbladder and therefore I feel the safest option is to hold her in the ER overnight until we can perform a ultrasound in the morning. At this time with a paced EKG and a flat troponin I have low concern is cardiovascular. I do not feel there is need for admission based on this. The ultrasound revealed a thickened gallbladder but no overt signs of acute cholecystitis. The patient never had pain in the right upper quadrant she does not have a fever or leukocytosis or left shift and her liver enzymes are normal. I did discuss the case with general surgeon Dr. Pack. He reviewed the patient's workup and agrees that with the pain never being in the right upper quadrant being resolved after 1 dose of Toradol and staying resolved that there is no need for admission or further emergent intervention. She can follow-up with your family doctor as an outpatient to discuss HIDA scan testing for further evaluation of the gallbladder but at this time his vitals are stable and overall workup is negative he is otherwise safe for discharge. History & Record Review Discussion w/independent historian: Patient and Significant other Lab Data Attestation: I reviewed the patient's lab results. Labs: Laboratory Results - last 24 hr 07/07/25 07/08/25 07/08/25 23:32 02:50 02:55 WBC 6.4 RBC 3.51 L Hgb 10.0 L Hct 31.6 L MCV 90.0 MCH 28.5 MCHC 31.6 L RDW Std Deviation 56.0 H RDW Coeff of Ignacia 17.0 H Plt Count 179 MPV 9.8 Immature Gran % (Auto) 0.500 Neut % (Auto) 76.9 H Lymph % (Auto) 13.0 L Benson % (Auto) 8.3 Eos % (Auto) 1.1 Baso % (Auto) 0.2 Absolute Neuts (auto) 4.9 Absolute Lymphs (auto) 0.83 Nucleated RBC % 0 Sodium 137 Potassium 4.1 Chloride 102 Carbon Dioxide 21.5 Anion Gap 13 BUN 57 H Creatinine 1.98 H Est GFR (MDRD) Non-Af 24 L BUN/Creatinine Ratio 28.8 H Glucose 156 H Calcium 10.1 Total Bilirubin 0.64 Direct Bilirubin 0.36 H AST 29 ALT 34 Alkaline Phosphatase 99 Troponin T High Sens 19 H Troponin T Hi Sens 2 Hr 18 H Total Protein 7.1 Albumin 4.4 Globulin 2.7 Lipase 64 Urine Color Straw Urine Clarity Clear Urine pH 6.0 Ur Specific Show Low 1.015 Urine Protein 15 H Urine Glucose (UA) Normal Urine Ketones Negative Urine Occult Blood Negative Urine Nitrite Negative Urine Bilirubin Negative Urine Urobilinogen Normal Ur Leukocyte Esterase Negative Urine RBC 0 SEEN Urine WBC 0 SEEN Ur Squamous Epith Cells 0 SEEN Urine Bacteria 0 SEEN Urine Mucus 0 SEEN Radiography Diagnostic Testing: Clinical Impression(s) from Imaging Studies Chest X-Ray 07/07/25 23:50 IMPRESSION: No evidence for acute abnormality. Reading [facility] Abdomen/Pelvis CT 07/08/25 00:06 IMPRESSION: Gall bladder calculus with mild wall edema, possibly cholecystitis. Advise clinical correlation. Colonic diverticulosis. No diverticulitis. Minimal ascites. Mild right pleural effusion. Reading Location: [id number] Gallbladder Ultrasound 07/08/25 03:58 IMPRESSION: 1. Mild heterogeneous appearance of the uterus. Morphology is not particularly cirrhotic. Portal vein is patent with pulsatile pattern. This can be seen with liver dysfunction but also in the setting of cardiac dysfunction including right heart failure, tricuspid valve regurgitation. Correlate with cardiac history. 2. Gallstone in the gallbladder wall. Gallbladder wall is thickened. Negative sonographic Salcido's sign. This may be from 3rd spacing rather than acute cholecystitis. Recommend correlation with physical exam and laboratory values. If this is equivocal, HIDA scanning may be helpful. No biliary ductal dilation. 3. Simple cyst right kidney. Bosniak 1. No follow-up required. Reading Location: [facility] Chest x-ray as interpreted by the emergency medicine physician reveals no acute infiltrate pneumothorax or pleural effusion Discharge Plan Triage Chief Complaint: Chest Pain ED Provider: Herve Melton Dx/Rx/DC Orders Clinical Impression: Cholelithiasis, Non-insulin dependent diabetes mellitus, Sick sinus syndrome, History of permanent cardiac pacemaker placement, Hypothyroidism, Current use of usp anticoagulation Instructions: Gallstones Dc Prescriptions: No Action (DME) Oral Appliance See Rx Instructions .ROUTE .MEDSUPPLY Qty: 1 0RF Rx Instructions: As directed cranberry 500 mg capsule 500 mg PO DAILY Rx Instructions: administer with meals ascorbic acid (vitamin C) 500 mg capsule 500 mg PO DAILY atorvastatin 20 mg tablet 20 mg PO QDAY olmesartan 20 mg tablet 20 mg PO QDAY estradiol 0.01 % (0.1 mg/gram) cream 1 g vaginal 3XW 90 Days Qty: 42.5 3RF torsemide 20 mg tablet 10 mg PO QAM latanoprost 0.005 % Drops 1 drp EACH EYE QHS [id number] oil 350-400 mg Capsule 1 cap PO DAILY amlodipine 10 mg tablet 10 mg PO DAILY isosorbide mononitrate 30 mg tablet extended release 24 hr 30 mg PO DAILY cinnamon bark [Cinnamon] 500 mg capsule 500 mg PO DAILY Eliquis 2.5 mg tablet 2.5 mg PO BID (DME) BIPAP -Bilevel Positive Airway Pressure ([facility] INFORMATIONAL USE ONLY) See Rx Instructions .Route .MEDSUPPLY Rx Instructions: BiPAP 12/07 at home using a [employer] Air[employer] 11 VAUTO machine DME- DASCO MASK- MED RESMED N30 NASAL MASK cholecalciferol (vitamin D3) 125 mcg (5,000 unit) tablet 125 mcg PO DAILY Qty: 30 0RF doxazosin 4 mg tablet 4 mg PO QHS Qty: 90 1RF carvedilol 25 mg tablet 25 mg PO BID Qty: 180 1RF pantoprazole 40 mg tablet,delayed release (DR/EC) 40 mg PO DAILY Qty: 90 0RF clopidogrel 75 mg tablet 75 mg PO DAILY Qty: 90 3RF glimepiride 2 mg tablet 2 mg PO DAILY Qty: 90 1RF levothyroxine 100 mcg tablet 100 mcg PO DAILY Qty: 90 1RF ferrous sulfate [Iron (ferrous sulfate)] 325 mg (65 mg iron) tablet 325 mg PO BID Qty: 60 3RF Primary Care Provider: Chiara Triana Referrals: Chiara Triana MD [Primary Care Provider, Internal Medicine] Activity Restrictions/Additional Instructions: Your workup today did not reveal any signs of acute heart damage or pneumonia. There was concern for a kidney stone but your CAT scan did not show 1 and your urine does not show signs of infection. It did show a gallstone but ultrasound does not show any signs of acute cholecystitis. Please follow-up with your family doctor to discuss a potential HIDA scan to further assess your gallbladder. If pain returns or you have any further concerns please return to the ER for repeat evaluation. Print Language: Mongolian Disposition Disposition: Home, Self Care
== END 2025-07-08 08:44 | disposition home or self-care (01) ==
PROVIDERS: Emergency Provider Emergency Medicine; PCP Internal Medicine; Visit Provider Emergency Medicine
DX: K80.20 Calculus of gallbladder without cholecystitis without obstruction (principal); N18.4 Chronic kidney disease, stage 4 (severe); I27.21 Secondary pulmonary arterial hypertension; I49.5 Sick sinus syndrome; I48.0 Paroxysmal atrial fibrillation; E11.22 Type 2 diabetes mellitus with diabetic chronic kidney disease; Z95.0 Presence of cardiac pacemaker; I35.0 Nonrheumatic aortic (valve) stenosis; F41.9 Anxiety disorder, unspecified; E03.9 Hypothyroidism, unspecified; D50.9 Iron deficiency anemia, unspecified; E78.5 Hyperlipidemia, unspecified; H40.9 Unspecified glaucoma; N32.81 Overactive bladder; G47.33 Obstructive sleep apnea (adult) (pediatric); Z95.2 Presence of prosthetic heart valve; Z79.01 Long term (current) use of anticoagulants; Z79.02 Long term (current) use of antithrombotics/antiplatelets; Z79.84 Long term (current) use of oral hypoglycemic drugs; Z79.890 Hormone replacement therapy; Z79.899 Other long term (current) drug therapy
CPT/HCPCS: 71045; 74176; 76705; 80048; 80076; 81001; 83690; 84484; 85025; 93005; 96361; 96374; 96375; 99284; A4216; J2405

== ENCOUNTER → 2025-07-13 | Outpatient (CLI) | payer MEDICARE, SELFPAY ==
[2025-01-05 14:09] VITALS: BMI 35.4
[2025-07-13 11:09] LABS: Albumin, Serum 4.2 g/dL (3.4-4.8); Anion Gap 11 (5-15); BUN 56 mg/dL (4-19); BUN/Creat Ratio 30.2 RATIO (10-20); Calcium,Total 10.0 mg/dL (7.6-11.0); Carbon Dioxide 22.4 mmol/L (21.0-32.0); Chloride 104 mmol/L (98-108); Glucose 156 mg/dL (70-99); Potassium 4.1 mmol/L (3.3-5.1)
== END | disposition home or self-care (01) ==
LOC: LAB 10:12
PROVIDERS: PCP Internal Medicine; Referring Provider Internal Medicine Nephrology; Visit Provider Internal Medicine Nephrology
DX: N28.9 Disorder of kidney and ureter, unspecified (principal)
CPT/HCPCS: 36415; 80069

== ENCOUNTER → 2025-07-19 | Outpatient (CLI) | payer MEDICARE, SELFPAY ==
[2025-01-05 14:09] VITALS: BMI 35.4
--- NOTE | 2025-07-19 09:55 | NM_ITS ---
PROCEDURE: HEPATOBILLIARY IMG W/PHARM INT 07/19/2025 REASON FOR EXAM: CHOLELITHIASIS TECHNIQUE: Procedure Code: [id number] Modality: NM Procedure: HEPATOBILLIARY IMG W/PHARM INT, with gallbladder ejection fraction. Intravenous Choletec with planar imaging of the abdomen. RADIOPHARMACEUTICAL: Intravenous administration of 5.5 mCi technetium 99 M mebrofenin. For the gallbladder ejection fraction component of the examination, intravenous administration of 1.9 g sincalide given over 15 minutes. FINDINGS: Satisfactory hepatic uptake and excretion is seen. Normal gallbladder visualization with the gallbladder identified by 45 minutes. Small bowel activity is seen by the 15 minute film. Gallbladder ejection fraction calculated at 41% at 20 minutes, within the normal range. NM/Hepatobilliary Img w/Pharm Int IMPRESSION: 1. Normal gallbladder ejection fraction of 41%. 2. Negative hepatobiliary scan. Reading Location: [id number]
== END | disposition home or self-care (01) ==
PROVIDERS: PCP Internal Medicine; Referring Provider Physician Assistant; Visit Provider Physician Assistant
DX: K80.20 Calculus of gallbladder without cholecystitis without obstruction (principal)
CPT/HCPCS: 78227; A9537; J2805

== ENCOUNTER → 2025-07-21 | Outpatient (CLI) | payer MEDICARE, SELFPAY ==
[2025-01-05 14:09] VITALS: BMI 35.4
[2025-07-21 13:55] LABS: Ferritin 232 ng/mL (22-378); Iron 373 ug/dL (50-170); Iron Binding Capacity,Unsat 112 ug/dL (228-428)
[2025-07-21 14:11] LABS: Iron Binding Capacity,Total 485 ug/dL (250-450)
== END | disposition home or self-care (01) ==
LOC: LAB 12:19
PROVIDERS: PCP Internal Medicine; Referring Provider Internal Medicine Nephrology; Visit Provider Internal Medicine Nephrology
DX: D50.9 Iron deficiency anemia, unspecified (principal)
CPT/HCPCS: 36415; 82728; 83540; 83550

== ENCOUNTER → 2025-08-03 | Outpatient (CLI) | payer MEDICARE, SELFPAY ==
[2025-01-05 14:09] VITALS: BMI 35.4
--- NOTE | 2025-08-03 14:45 | BI_ITS ---
EXAM: SCRN MAMM (CAD)W/BRIDGETT BILAT DATE: 08/03/2025 CLINICAL HISTORY: F, Age 85 y/o , SCREENING TECHNIQUE: Procedure Code: [id number] Modality: MG Procedure: SCRN MAMM (CAD)W/BRIDGETT BILAT COMPARISON: Prior exam(s) were compared FINDINGS: TISSUE DENSITY: The breasts are heterogeneously dense, which may obscure small masses. Bilateral Breast Mammographic Findings: No significant masses, calcifications or other abnormalities are identified. BI/SCRN MAMM (CAD)W/BRIDGETT BILAT IMPRESSION: No mammographic evidence of malignancy. OVERALL FINAL ASSESSMENT BI-RADS 1: NEGATIVE. RECOMMENDATION: Routine annual follow-up in 1 Year Additional Recommendation none A letter with findings and recommendations will be mailed to the patient. Reading Location: [id number]
== END | disposition home or self-care (01) ==
LOC: OPBI 14:32
PROVIDERS: PCP Internal Medicine; Referring Provider Internal Medicine; Visit Provider Internal Medicine
DX: Z12.31 Encounter for screening mammogram for malignant neoplasm of breast (principal)
CPT/HCPCS: 77063; 77067

== ENCOUNTER → 2025-08-16 | Outpatient (CLI) | payer MEDICARE, SELFPAY ==
[2025-01-05 14:09] VITALS: BMI 35.4
--- NOTE | 2025-08-16 12:13 | RAD_ITS ---
PROCEDURE: CHEST PA AND LATERAL 08/16/2025 REASON FOR EXAM: SOB TECHNIQUE: Procedure Code: RADCXR Modality: DX Procedure: CHEST PA AND LATERAL COMPARISON: July 07, 2025 FINDINGS: Chest two views. There is a left-sided cardiac device with wires in position. There is cardiomegaly without overt CHF. There is blunting of the costophrenic angle on the right and left consistent with trace effusions. There is no pneumothorax. Aortic calcifications are noted. Is no acute bony abnormality. RAD/Chest PA and Lateral IMPRESSION: There is cardiomegaly without overt CHF. There is blunting of the costophrenic angle on the right and left consistent wi th trace effusions. Reading Location: [facility]
[2025-08-16 12:15] LABS: Hematocrit 32.6 % (37-47); Hemoglobin 10.2 g/dL (12.0-15.0); Immature Granulocytes Count 0.020 X10^3/uL (0.0-0.0); Mean Corp Hgb Conc 31.3 g/dL (32-36); Mean Corpuscular Volume 94.5 fL (81-99); Mean Platelet Vol. 9.8 fl (6.2-12.0); NRBC Flagged by Analyzer 0 % (0-5); POSITIVE MORPHOLOGY YES; Platelet Count 137 K/mm3 (150-450); RBC Distribution Width CV 18.9 % (11.6-14.6); RBC Distribution Width SD 66.0 fl (35.1-43.9); Red Blood Count 3.45 M/mm3 (4.2-5.4); White Blood Count 4.6 K/mm3 (4.4-11.0)
[2025-08-16 12:21] LABS: Differential Indicated SCAN CRITERIA MET
[2025-08-16 12:42] LABS: Anisocytosis 1+; Differential Comment SCANNED
[2025-08-16 12:56] LABS: Anion Gap 11 (5-15); BUN 38 mg/dL (4-19); BUN/Creat Ratio 25.6 RATIO (10-20); Calcium,Total 9.6 mg/dL (7.6-11.0); Carbon Dioxide 23.0 mmol/L (21.0-32.0); Chloride 104 mmol/L (98-108); Glucose 135 mg/dL (70-99); Potassium 4.3 mmol/L (3.3-5.1); Pro- Brain NATRIURETIC PEPTIDE 1754 pg/mL (<=1800)
== END | disposition home or self-care (01) ==
PROVIDERS: PCP Internal Medicine; Referring Provider Nurse Practitioner Gerontology; Visit Provider Nurse Practitioner Gerontology
DX: R06.09 Other forms of dyspnea (principal)
CPT/HCPCS: 36415; 71046; 80048; 83880; 85025

== ENCOUNTER → 2025-08-31 | Outpatient (CLI) | payer MEDICARE, SELFPAY ==
[2025-01-05 14:09] VITALS: BMI 35.4
[2025-08-31 09:38] LABS: CORTISOL AM 3.01 ug/dL (6.02-18.40)
[2025-08-31 19:28] LABS: Albumin, Serum 4.4 g/dL (3.4-4.8); Anion Gap 15 (5-15); BUN 51 mg/dL (4-19); BUN/Creat Ratio 27.5 RATIO (10-20); Calcium,Total 10.4 mg/dL (7.6-11.0); Carbon Dioxide 22.3 mmol/L (21.0-32.0); Chloride 102 mmol/L (98-108); Glucose 167 mg/dL (70-99); Potassium 4.2 mmol/L (3.3-5.1)
== END | disposition home or self-care (01) ==
LOC: LAB 07:54
PROVIDERS: PCP Internal Medicine; Referring Provider Internal Medicine Cardiovascular Disease; Visit Provider Internal Medicine Nephrology
DX: N18.32 Chronic kidney disease, stage 3b (principal)
CPT/HCPCS: 36415; 80069; 82533

== ENCOUNTER → 2025-09-02 | Outpatient (CLI) | payer MEDICARE, SELFPAY ==
[2025-01-05 14:09] VITALS: BMI 35.4
[2025-09-02 10:58] LABS: Hematocrit 32.8 % (37-47); Hemoglobin 10.3 g/dL (12.0-15.0); Mean Corp Hgb Conc 31.4 g/dL (32-36); Mean Corpuscular Volume 95.6 fL (81-99); Mean Platelet Vol. 10.2 fl (6.2-12.0); Platelet Count 148 K/mm3 (150-450); RBC Distribution Width CV 18.4 % (11.6-14.6); RBC Distribution Width SD 65.0 fl (35.1-43.9); Red Blood Count 3.43 M/mm3 (4.2-5.4); White Blood Count 4.7 K/mm3 (4.4-11.0)
== END | disposition home or self-care (01) ==
LOC: LAB 10:02
PROVIDERS: PCP Internal Medicine; Referring Provider Internal Medicine Cardiovascular Disease; Visit Provider Internal Medicine Cardiovascular Disease
DX: R53.83 Other fatigue (principal)
CPT/HCPCS: 36415; 84443; 85027

== ENCOUNTER → 2025-09-05 | Outpatient (CLI) | payer MEDICARE, SELFPAY ==
[2025-01-05 14:09] VITALS: BMI 35.4
[2025-09-05 13:16] LABS: Albumin, Serum 4.1 g/dL (3.4-4.8); Anion Gap 10 (5-15); BUN 51 mg/dL (4-19); BUN/Creat Ratio 29.3 RATIO (10-20); Calcium,Total 10.1 mg/dL (7.6-11.0); Carbon Dioxide 24.8 mmol/L (21.0-32.0); Chloride 103 mmol/L (98-108); Glucose 120 mg/dL (70-99); Potassium 3.9 mmol/L (3.3-5.1)
== END | disposition home or self-care (01) ==
PROVIDERS: PCP Internal Medicine; Referring Provider Internal Medicine Nephrology; Visit Provider Internal Medicine Nephrology
DX: N18.32 Chronic kidney disease, stage 3b (principal)
CPT/HCPCS: 36415; 80069

== ENCOUNTER → 2025-09-19 | Outpatient (CLI) | payer MEDICARE, SELFPAY ==
[2025-01-05 14:09] VITALS: BMI 35.4
[2025-09-19 11:19] LABS: Hematocrit 32.6 % (37-47); Hemoglobin 10.3 g/dL (12.0-15.0); Immature Granulocytes Count 0.010 X10^3/uL (0.0-0.0); Mean Corp Hgb Conc 31.6 g/dL (32-36); Mean Corpuscular Volume 94.5 fL (81-99); Mean Platelet Vol. 10.5 fl (6.2-12.0); NRBC Flagged by Analyzer 0 % (0-5); Platelet Count 125 K/mm3 (150-450); RBC Distribution Width CV 17.4 % (11.6-14.6); RBC Distribution Width SD 61.1 fl (35.1-43.9); Red Blood Count 3.45 M/mm3 (4.2-5.4); White Blood Count 5.0 K/mm3 (4.4-11.0)
[2025-09-19 11:52] LABS: Anion Gap 12 (5-15); BUN 44 mg/dL (4-19); BUN/Creat Ratio 21.6 RATIO (10-20); Calcium,Total 10.2 mg/dL (7.6-11.0); Carbon Dioxide 24.9 mmol/L (21.0-32.0); Chloride 100 mmol/L (98-108); Glucose 133 mg/dL (70-99); Potassium 3.8 mmol/L (3.3-5.1); Pro- Brain NATRIURETIC PEPTIDE 2922 pg/mL (<=1800)
[2025-09-19 11:58] LABS: Free T3 1.8 pg/mL (2.18-3.98); T4 Total, Thyroxin 9.8 ug/dL (4.8-13.9)
== END | disposition home or self-care (01) ==
LOC: LAB 10:44
PROVIDERS: Physician Assistant; PCP Internal Medicine; Referring Provider Internal Medicine Cardiovascular Disease; Visit Provider Internal Medicine Cardiovascular Disease
DX: R06.02 Shortness of breath (principal); R60.9 Edema, unspecified; E03.9 Hypothyroidism, unspecified; I51.89 Other ill-defined heart diseases; D50.0 Iron deficiency anemia secondary to blood loss (chronic)
CPT/HCPCS: 36415; 80048; 83880; 84436; 84439; 84443; 84481; 85025; 86376

== ENCOUNTER → 2025-09-26 | Outpatient (CLI) | payer MEDICARE, SELFPAY ==
[2025-01-05 14:09] VITALS: BMI 35.4
[2025-09-26 12:01] LABS: Anion Gap 10 (7-18); BUN 51 mg/dL (4-19); BUN/Creat Ratio 23.5 RATIO (10-20); Calcium,Total 10.0 mg/dL (7.6-11.0); Carbon Dioxide 25.2 mmol/L (20.0-29.0); Chloride 102 mmol/L (96-106); Glucose 116 mg/dL (70-99); Potassium 4.0 mmol/L (3.5-5.1)
== END | disposition home or self-care (01) ==
LOC: LAB 10:55
PROVIDERS: PCP Internal Medicine; Referring Provider Nurse Practitioner Family; Visit Provider Nurse Practitioner Family
DX: I48.0 Paroxysmal atrial fibrillation (principal); I51.89 Other ill-defined heart diseases; R60.0 Localized edema
CPT/HCPCS: 36415; 80048

== ENCOUNTER → 2025-09-27 | Outpatient (CLI) | payer MEDICARE, SELFPAY ==
[2025-01-05 14:09] VITALS: BMI 35.4
== END | disposition home or self-care (01) ==
PROVIDERS: PCP Internal Medicine; Referring Provider Nurse Practitioner Family; Visit Provider Nurse Practitioner Family
DX: G47.33 Obstructive sleep apnea (adult) (pediatric) (principal)
CPT/HCPCS: 95811

== ENCOUNTER 2025-09-28 06:01 | Emergency (ER) | payer MEDICARE, SELFPAY ==
[2025-01-05 14:09] VITALS: BMI 35.4
[2025-09-28 06:02] VITALS: BP 117/64; PULSE 57; RESP 19; TEMP 36.3; O2SAT 96; BMI 42.9
--- NOTE | 2025-09-28 06:06 | EX.ED.DYSGE1 ---
HPI <Dr. Delfina Dinh MD - Last Filed: 10/01/25 07:05> History of Present Illness Chief Complaint: Edema Narrative Narrative: Patient is a 85-year-old female presenting to the emergency department for bilateral lower extremity edema. She is a past medical history of chronic renal failure, anemia, aortic stenosis, CAD, diabetes, pulmonary arterial hypertension, CLIFFORD, hypothyroidism, obesity and bilateral lower extremity edema in the past. She is on Eliquis and Plavix. Patient states that she has had lower extremity swelling for the past few months. States that it has continuously gotten worse. States that there is multiple doctors that are trying to figure out why including having sleep studies done, thyroid testing. She states she recently had labs drawn about a week ago and was waiting on a callback from her physician to tell her if she should take more torsemide or Lasix. She states that she has been taking it intermittently and is not on it long-term. She endorses some shortness of breath with exertion. [facility] <Dr. Delfina Dinh MD - Last Filed: 10/01/25 07:05> [facility] Medical History Cancer Wears glasses Excessive bleeding History of pacemaker History of echocardiogram Cardiology follow-up encounter PAF (paroxysmal atrial fibrillation) Iron deficiency anemia Chronic renal failure Anemia Constipation Vaginal atrophy Nocturnal enuresis Urge incontinence Overactive bladder Aortic stenosis Stage 4 chronic kidney disease Breast calcification, right Anxiety Hypothyroidism Diabetes Kidney disease Sleep apnea Atrial fibrillation Secondary pulmonary arterial hypertension Sick sinus syndrome Chronic pericarditis with effusion Left bundle branch block (LBBB) Essential hypertension Bradycardia Physical debility Gout Glaucoma Chronic renal failure, stage 3a Osteoarthritis Diabetes mellitus, type 2 Pericardial effusion (08/23/20) LVH (left ventricular hypertrophy) Musculoskeletal back pain Hemoptysis CLIFFORD (obstructive sleep apnea) Hypersomnolence Nonrheumatic aortic valve stenosis Carotid bruit HLD (hyperlipidemia) Abnormal cardiac enzyme level Hyperthyroidism Home Medications ?Medication ?Instructions ?Recorded ?Last Taken ?Type Oral Appliance #1 ea 03/19/22 Unknown Rx latanoprost 0.005 % eye drops 1 drp EACH EYE QHS Check with 03/28/22 11/15/24 History primary doctor cholecalciferol (vitamin D3) 125 125 mcg PO DAILY #30 tabs 12/11/22 11/16/24 Rx mcg (5,000 unit) tablet carvedilol 25 mg tablet 25 mg PO BID #180 TABLETS 10/19/24 11/16/24 Rx amlodipine 10 mg tablet 10 mg PO DAILY 11/16/24 11/16/24 History apixaban 2.5 mg tablet (Eliquis) 2.5 mg PO BID 11/16/24 11/16/24 History cinnamon bark 500 mg capsule 500 mg PO DAILY 11/16/24 11/16/24 History (Cinnamon) isosorbide mononitrate 30 mg 30 mg PO DAILY 11/16/24 11/16/24 History tablet,extended release 24 hr olmesartan 20 mg tablet 20 mg PO QDAY 12/09/24 Unknown History estradiol 0.01% (0.1 mg/gram) 1 g vaginal 3XW 3 months #42.5 05/17/25 Unknown Rx vaginal cream grams clopidogrel 75 mg tablet 75 mg PO DAILY #90 tabs 05/20/25 Unknown Rx glimepiride 2 mg tablet 2 mg PO DAILY blood sugar #90 tabs 05/20/25 Unknown Rx atorvastatin 20 mg tablet 20 mg PO QDAY 05/24/25 Unknown History BIPAP -Bilevel Positive Airway 06/21/25 Unknown History Pressure ([facility] INFORMATIONAL USE ONLY) pantoprazole 40 mg tablet,delayed 40 mg PO DAILY #90 tabs 08/08/25 Unknown Rx release ferrous sulfate 35 mg iron-folic 1 tab PO DAILY 08/23/25 Unknown History acid 1 mg tablet Held on 09/07/25. Instructions: NOT TAKING OF NOW cephalexin 250 mg capsule 250 mg PO QHS PRN UTI 08/30/25 Unknown History Jobst FarrowWrap compression #1 ea 09/15/25 Unknown Rx stockings ascorbic acid (vitamin C) 500 mg 500 mg PO QWEEK 09/15/25 Unknown History capsule cranberry 500 mg capsule 500 mg PO DAILY PRN 09/15/25 Unknown History levothyroxine 112 mcg tablet 112 mcg PO DAILY #30 tabs 09/15/25 Unknown Rx (Synthroid) linaclotide 72 mcg capsule 72 mcg PO QAM PRN 09/15/25 Unknown History (Linzess) torsemide 20 mg tablet See Rx Instructions PO QAM 09/15/25 Unknown History doxazosin 4 mg tablet 4 mg PO QHS #90 tabs 09/28/25 Unknown Rx torsemide 10 mg tablet 10 mg PO DAILY #5 tabs 09/28/25 Unknown Rx Allergy/AdvReac Type Severity Reaction Status Date / Time benazepril (From Lotensin) Allergy Unknown Verified 09/28/25 06:05 Iodine and Iodide Containing Allergy Shortness Verified 09/28/25 06:05 Produc of breath meperidine (From Demerol) Allergy Unknown Verified 09/28/25 06:05 metformin (From Janumet) Allergy Pain in Verified 09/28/25 06:05 joints Penicillins Allergy Hives Verified 09/28/25 06:05 propoxyphene (From Darvon) Allergy Unknown Verified 09/28/25 06:05 shellfish derived Allergy Shortness Verified 09/28/25 06:05 of breath sitagliptin (From Janumet) Allergy Pain in Verified 09/28/25 06:05 joints spironolactone Allergy Unknown Verified 09/28/25 06:05 rivaroxaban (From Xarelto) AdvReac Severe PERICARDIAL Verified 09/28/25 06:05 EFFUSION adhesive AdvReac Unknown Unknown Verified 09/28/25 06:05 hydrochlorothiazide AdvReac NEEDS Verified 09/28/25 06:05 FOLLOW-UP lisinopril AdvReac NEEDS Verified 09/28/25 06:05 FOLLOW-UP metoprolol AdvReac Shortness Verified 09/28/25 06:05 of breath simvastatin AdvReac Pain in Verified 09/28/25 06:05 joints Family History Mother Cancer Uterine Thyroid disorder Father Cancer lung Hypertension Son Cancer esophageal Surgical History History of cardiac catheterization Heart valve replaced S/P TAVR (transcatheter aortic valve replacement) S/P skin biopsy History of permanent cardiac pacemaker placement (06/2018) 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 Delfina Dinh MD - Last Filed: 10/01/25 07:05> ROS ED ROS Narrative see HPI EXAM <Dr. Delfina Dinh MD - Last Filed: 10/01/25 07:05> Physical Exam Narrative Exam Narrative: Vital signs: Reviewed General: Alert and orientedx3. No acute distress. Chronically ill appearing. HEENT: Head is normocephalic and atraumatic, sinuses nontender, pupils equal round and reactive. Nares are patent. Oropharynx and throat exams normal. Neck: Supple without lymphadenopathy nontender Cardiovascular: Regular rate and rhythm, no murmurs. No rubs or gallops. Normal S1 and S2 Respiratory: Decreased lung sounds in bilateral lower lobes. No wheezes or crackles heard. Abdominal: Soft and nontender. Normal bowel sounds. No guarding or rebound. Nonsurgical abdomen Extremities: Lower extremity pitting edema that is symmetric. Palpable DP pulses bilaterally. There is no tenderness to palpation of the calves. There is no erythema or warmth of the legs. Normal range of motion. Normal sensation. Skin: No rash or redness. Neurological: Cranial nerves II through XII are grossly intact. Normal strength and sensation. Normal cerebellar function The rest of the physical exam is unremarkable Const Vital Signs: 09/28/25 06:02 09/28/25 06:02 09/28/25 08:02 Temperature 97.4 F L Temperature Source Oral Pulse Rate 57 L 54 L Respiratory Rate 19 H 16 Respiratory Effort Normal Respiratory Pattern Normal Blood Pressure 117/64 120/76 Blood Pressure Mean 81 90 Pulse Ox 96 94 Oxygen Delivery Method Room Air Room Air 09/28/25 10:00 Temperature Temperature Source Pulse Rate 56 L Respiratory Rate 18 Respiratory Effort Respiratory Pattern Blood Pressure 124/78 H Blood Pressure Mean 93 Pulse Ox 95 Oxygen Delivery Method Room Air <Dr. Abdulaziz Espinoza DO - Last Filed: 09/28/25 12:46> Physical Exam Const Vital Signs: 09/28/25 06:02 09/28/25 06:02 09/28/25 08:02 Temperature 97.4 F L Temperature Source Oral Pulse Rate 57 L 54 L Respiratory Rate 19 H 16 Respiratory Effort Normal Respiratory Pattern Normal Blood Pressure 117/64 120/76 Blood Pressure Mean 81 90 Pulse Ox 96 94 Oxygen Delivery Method Room Air Room Air 09/28/25 10:00 Temperature Temperature Source Pulse Rate 56 L Respiratory Rate 18 Respiratory Effort Respiratory Pattern Blood Pressure 124/78 H Blood Pressure Mean 93 Pulse Ox 95 Oxygen Delivery Method Room Air [facility] <Dr. Delfina Dinh MD - Last Filed: 10/01/25 07:05> [facility] Narrative Medical decision making narrative: Patient is an 85-year-old female presenting to the emergency department for fairly chronic lower extremity edema that has worsened over the past few weeks along with shortness of breath with exertion and orthopnea. Patient was seen and examined. Vitals are stable. Patient is saturating 96% on room air. EKG shows a ventricular paced rhythm at a rate of 55 with no ischemic changes. Appears similar to EKG on September 02, 2025. CBC with a WBC of 4.1 and anemia that is chronic in nature of 10.6. CMP with baseline kidney dysfunction with a BUN of 54 and creatinine of 2.16 has been fluctuating over the past few weeks. Normal liver functioning. BNP is elevated at 3061 which is just mildly elevated from her labs that were drawn about a week ago. Will give her 40 mg IV Lasix. She states has been 2 to 3 days since she has taken torsemide or Lasix. Initial troponin of 24, will trend. As long as there is no significant delta change, will likely be discharged. Baseline elevated at 19. TSH baseline at 12.9. Chest x-ray reviewed by myself, no opacities, pneumothorax or widened mediastinum noted. Radiology read in agreement. Patient will be ambulated with pulse ox. I recommended her calling Dr. Bishop today for further recommendations. Will place on a few days of torsemide for outpatient. Clinical impression: Bilateral lower extremity edema History & Record Review Discussion w/independent historian: Patient Lab Data Attestation: I reviewed the patient's lab results. Labs: Laboratory Results - last 24 hr 09/28/25 09/28/25 09/28/25 06:08 08:05 10:08 WBC 4.1 L RBC 3.47 L Hgb 10.6 L Hct 32.7 L MCV 94.2 MCH 30.5 MCHC 32.4 RDW Std Deviation 57.4 H RDW Coeff of Ignacia 16.6 H Plt Count 137 L MPV 10.3 Immature Gran % (Auto) 0.200 Neut % (Auto) 65.0 Lymph % (Auto) 21.7 Stanley % (Auto) 11.9 H Eos % (Auto) 1.0 Baso % (Auto) 0.2 Absolute Neuts (auto) 2.6 Absolute Lymphs (auto) 0.88 Nucleated RBC % 0 Sodium 135 Potassium 3.8 Chloride 101 Carbon Dioxide 23.2 Anion Gap 11 BUN 54 H Creatinine 2.16 H Estim Creat Clear Calc 20.56 L Est GFR (MDRD) Non-Af 22 L BUN/Creatinine Ratio 25.2 H Glucose 86 Calcium 9.9 Total Bilirubin 0.77 AST 26 ALT 19 Alkaline Phosphatase 94 Troponin T High Sens 24 H D Troponin T Hi Sens 2 Hr 25 H NT pro BNP II 3061 H Total Protein 6.6 Albumin 4.0 Globulin 2.7 Albumin/Globulin Ratio 1.5 TSH 12.900 H POC Glucose 75 Radiography Chest X-Ray - ED: 2 View, Read by ED Physician, Unchanged, Normal and No Infiltrates Diagnostic Testing: Clinical Impression(s) from Imaging Studies Chest X-Ray 09/28/25 06:30 IMPRESSION: No acute cardiopulmonary abnormalities. Reading Location: [id number] <Dr. Abdulaziz Espinoza, DO - Last Filed: 09/28/25 12:46> [facility] Narrative Medical decision making narrative: Patient is an 85-year-old female presenting to the emergency department for fairly chronic lower extremity edema that has worsened over the past few weeks along with shortness of breath with exertion and orthopnea. Patient was seen and examined. Vitals are stable. Patient is saturating 96% on room air. EKG shows a ventricular paced rhythm at a rate of 55 with no ischemic changes. Appears similar to EKG on September 02, 2025. CBC with a WBC of 4.1 and anemia that is chronic in nature of 10.6. CMP with baseline kidney dysfunction with a BUN of 54 and creatinine of 2.16 has been fluctuating over the past few weeks. Normal liver functioning. BNP is elevated at 3061 which is just mildly elevated from her labs that were drawn about a week ago. Will give her 40 mg IV Lasix. She states has been 2 to 3 days since she has taken torsemide or Lasix. Initial troponin of 24, will trend. As long as there is no significant delta change, will likely be discharged. Baseline elevated at 19. TSH baseline at 12.9. Chest x-ray reviewed by myself, no opacities, pneumothorax or widened mediastinum noted. Radiology read in agreement. Patient will be ambulated with pulse ox. I recommended her calling Dr. Bishop today for further recommendations. Will place on a few days of torsemide for outpatient. Clinical impression: Bilateral lower extremity edema Addendum Abdulaziz Espinoza, DO 12:43 PM Patient's case signout to me to follow-up on delta troponin and ambulation. Delta troponin of 25 Patient ambulated well here in the emergency department no hypoxia was lead per staff. I offered patient admission for potential PT OT placement however she states that she is gone through several episodes of this and does not want admitted to the hospital she is requesting home health therefore social work was consulted. Social work evaluated the patient and got home health set up for her on Friday. She was advised to follow-up with her doctor in outpatient setting continue take medications as prescribed and return with worsening symptoms or any concerns. All questions answered she was discharged home in stable condition. . Lab Data Labs: Laboratory Results - last 24 hr 09/28/25 09/28/25 09/28/25 06:08 08:05 10:08 WBC 4.1 L RBC 3.47 L Hgb 10.6 L Hct 32.7 L MCV 94.2 MCH 30.5 MCHC 32.4 RDW Std Deviation 57.4 H RDW Coeff of Ignacia 16.6 H Plt Count 137 L MPV 10.3 Immature Gran % (Auto) 0.200 Neut % (Auto) 65.0 Lymph % (Auto) 21.7 Stanley % (Auto) 11.9 H Eos % (Auto) 1.0 Baso % (Auto) 0.2 Absolute Neuts (auto) 2.6 Absolute Lymphs (auto) 0.88 Nucleated RBC % 0 Sodium 135 Potassium 3.8 Chloride 101 Carbon Dioxide 23.2 Anion Gap 11 BUN 54 H Creatinine 2.16 H Estim Creat Clear Calc 20.56 L Est GFR (MDRD) Non-Af 22 L BUN/Creatinine Ratio 25.2 H Glucose 86 Calcium 9.9 Total Bilirubin 0.77 AST 26 ALT 19 Alkaline Phosphatase 94 Troponin T High Sens 24 H D Troponin T Hi Sens 2 Hr 25 H NT pro BNP II 3061 H Total Protein 6.6 Albumin 4.0 Globulin 2.7 Albumin/Globulin Ratio 1.5 TSH 12.900 H POC Glucose 75 Radiography Diagnostic Testing: Clinical Impression(s) from Imaging Studies Chest X-Ray 09/28/25 06:30 IMPRESSION: No acute cardiopulmonary abnormalities. Reading Location: [facility] Discharge Plan Triage Chief Complaint: Edema ED Provider: Delfina Dinh Dx/Rx/DC Orders Clinical Impression: Bilateral edema of lower extremity Instructions: ED Peripheral Edema, Bilateral Prescriptions: New torsemide 10 mg tablet 10 mg PO DAILY Qty: 5 0RF No Action (DME) Oral Appliance See Rx Instructions .ROUTE .MEDSUPPLY Qty: 1 0RF Rx Instructions: As directed ascorbic acid (vitamin C) 500 mg capsule 500 mg PO QWEEK cranberry 500 mg capsule 500 mg PO DAILY PRN Rx Instructions: administer with meals atorvastatin 20 mg tablet 20 mg PO QDAY olmesartan 20 mg tablet 20 mg PO QDAY cephalexin 250 mg capsule 250 mg PO QHS PRN (Reason: UTI) estradiol 0.01 % (0.1 mg/gram) cream 1 g vaginal 3XW 90 Days Qty: 42.5 3RF torsemide 20 mg tablet See Rx Instructions PO QAM Rx Instructions: 1/2 orally every morning; =10 ferrous sulfate-folic acid 35 mg iron- 1 mg tablet 1 tab PO DAILY Linzess 72 mcg capsule 72 mcg PO QAM PRN (DME) Jobst FarrowWrap compression stockings See Rx Instructions .Route .MEDSUPPLY Qty: 1 0RF Rx Instructions: 20-30mmHG levothyroxine [Synthroid] 112 mcg tablet 112 mcg PO DAILY Qty: 30 1RF latanoprost 0.005 % Drops 1 drp EACH EYE QHS amlodipine 10 mg tablet 10 mg PO DAILY isosorbide mononitrate 30 mg tablet extended release 24 hr 30 mg PO DAILY cinnamon bark [Cinnamon] 500 mg capsule 500 mg PO DAILY Eliquis 2.5 mg tablet 2.5 mg PO BID (DME) BIPAP -Bilevel Positive Airway Pressure ([facility] INFORMATIONAL USE ONLY) See Rx Instructions .Route .MEDSUPPLY Rx Instructions: BiPAP 14/10 at home using a [employer] AirCurve 11 VAUTO machine DME- DASCO MASK- MED RESMED N30 NASAL MASK cholecalciferol (vitamin D3) 125 mcg (5,000 unit) tablet 125 mcg PO DAILY Qty: 30 0RF carvedilol 25 mg tablet 25 mg PO BID Qty: 180 1RF clopidogrel 75 mg tablet 75 mg PO DAILY Qty: 90 3RF glimepiride 2 mg tablet 2 mg PO DAILY Qty: 90 1RF pantoprazole 40 mg tablet,delayed release (DR/EC) 40 mg PO DAILY Qty: 90 0RF doxazosin 4 mg tablet 4 mg PO QHS Qty: 90 0RF Primary Care Provider: Chiara Triana Referrals: Chiara Triana MD [Primary Care Provider, Internal Medicine] - As soon as possible Duke Bishop MD [Med Staff - Active Staff, Cardiology] - As soon as possible Activity Restrictions/Additional Instructions: Take the torsemide as prescribed. Please call Dr. Bishop office today. Your evaluation in the Emergency Department did not reveal any acute reason for admission. However, I want to emphasize that you may be early in the course of a disease process or illness even if it is not present. For this reason you should follow-up within 24 hours for reevaluation with either your primary care physician or if necessary back here in the Emergency Department. You should return to the Emergency Department immediately if your symptoms worsen or new symptoms develop. Print Language: Cameroonian Disposition Disposition: Home, Self Care Discharge Date/Time: 09/28/25 13:22
--- NOTE | 2025-09-28 06:18 | EKG12_ITS ---
Test Reason : ARRYTH Blood Pressure : */* mmHG Vent. Rate : 55 BPM Atrial Rate : 54 BPM P-R Int : * ms QRS Dur : 178 ms QT Int : 510 ms P-R-T Axes : * -76 108 degrees QTcB Int : 487 ms Ventricular-paced rhythm Abnormal ECG Confirmed by Tr De La Rosa [id number]), clinical editor DAMIAN CHAUDHARI ([id number]) on 10/03/2025 9:07:30 AM Referred By: LANEY Confirmed By: Tr De La Rosa
[2025-09-28 06:30] LABS: Hematocrit 32.7 % (37-47); Hemoglobin 10.6 g/dL (12.0-15.0); Immature Granulocytes Count 0.010 X10^3/uL (0.0-0.0); Mean Corp Hgb Conc 32.4 g/dL (32-36); Mean Corpuscular Volume 94.2 fL (81-99); Mean Platelet Vol. 10.3 fl (6.2-12.0); NRBC Flagged by Analyzer 0 % (0-5); Platelet Count 137 K/mm3 (150-450); RBC Distribution Width CV 16.6 % (11.6-14.6); RBC Distribution Width SD 57.4 fl (35.1-43.9); Red Blood Count 3.47 M/mm3 (4.2-5.4); White Blood Count 4.1 K/mm3 (4.4-11.0)
--- NOTE | 2025-09-28 06:30 | RAD_ITS ---
PROCEDURE: CHEST PA AND LATERAL 09/28/2025 REASON FOR EXAM: SOB TECHNIQUE: Procedure Code: RADCXR Modality: DX Procedure: CHEST PA AND LATERAL COMPARISON: Chest x-ray 08/16/2025. FINDINGS: Hardware: A left-sided pacemaker. Heart: No cardiomegaly. Mediastinum: Tortuosity and atherosclerotic calcifications of the aorta. Lungs: Clear. No pleural effusion or pneumothorax. Bones: No acute bony elements. RAD/Chest PA and Lateral IMPRESSION: No acute cardiopulmonary abnormalities. Reading Location: [id number]
[2025-09-28 06:57] LABS: AST(SGOT) 26 U/L (<=31); Alanine Aminotransfer ALT/SGPT 19 U/L (<=34); Albumin, Serum 4.0 g/dL (3.4-4.8); Alkaline Phosphatase 94 U/L (35-104); Anion Gap 11 (7-18); BUN 54 mg/dL (4-19); BUN/Creat Ratio 25.2 RATIO (10-20); Calcium,Total 9.9 mg/dL (7.6-11.0); Carbon Dioxide 23.2 mmol/L (20.0-29.0); Chloride 101 mmol/L (96-106); Estimated Creatinine Clearance 20.56 ml/min (50-250); Globulin 2.7 g/dL (2.2-4.2); Glucose 86 mg/dL (70-99); Potassium 3.8 mmol/L (3.5-5.1); Pro- Brain NATRIURETIC PEPTIDE 3061 pg/mL (<=1800); Troponin T High Sensitivity 24 ng/L (<=14)
--- OUTSIDE RECORDS SUMMARY | 2025-09-28 07:11 | XMS RPT_ITS | CCD ---
Author Organization [facility] Care Team Providers Care Configuration Management Manager Name Role Phone SUZIE LEBRON Unavailable Unavailable SUZIE LEBRON Unavailable Unavailable *SELF, REFERRED Unavailable Unavailable *SELF, REFERRED Unavailable Unavailable PAUL YOUNGBLOOD Unavailable Unavailable Noris Youngblood Unavailable Unavailable Noris Youngblood Unavailable Unavailable AUSTEN, DANA Unavailable UnavailNORIS Russ Unavailable Unavailable RAMANBRAYAN, DANA Unavailable UnavailNORIS Russ Unavailable Unavailable AUSTEN, DANA Unavailable UnavailNORIS Russ Unavailable Unavailable Noris Youngblood Primary Care Provider Noris Youngblood Primary Care Provider LUNA FELICIANO Referring Unavailable IRENE SPRINGER Attending Unavailable IRENE SPRINGER Admitting Unavailable Noris Youngblood Primary Care Provider Noris Youngblood MD Primary Care Provider Noris Youngblood MD Primary Care Provider Noris Youngblood MD Primary Care Provider [phone] Noris Youngblood Primary Care Provider Keith Rodrigez MD Unavailable Yasmin GERBER, Garth Ward Unavailable DR NORIS YOUNGBLOOD MD Primary Care Physician Dr. Noris Youngblood Primary Care Provider Dr. Noris Youngblood Referring Provider Dr. Andrae Dumont Attending Provider Sementi, Dr. Lynette Smith Admit Provider Sementi, Dr. Lynette Smith Attending Provider Sementi, Dr. Lynette Smith Other Provider Dr. Ros Nice Other Provider Noris Youngblood Primary Care Provider Rain GERBER, Keith Leahy Unavailable Yasmin GERBER, Garth Ward Unavailable Dr. Jesse Sykes Attending Provider Sementi, Dr. Lynette Smith Referring Provider Dr. Jorge Benavides Attending Provider [phone] Hans LIDAR SCIENTIST, LIDAR SCIENTIST-C Razia Attending Provider Dr. Jorge Benavides Primary Care Provider Dr. Noris Youngblood Primary Care Provider Dr. Noris Youngblood Referring Provider Dr. Jorge Benavides Referring Provider [phone] Noris Youngblood Primary Care Provider Semenmacho, Dr. Lynette Smith Admit Provider Sementi, Dr. Lynette Smith Attending Provider Sementi, Dr. Lynette Smith Other Provider Dr. Jesse Sykes Attending Provider NaomybuDr. Beto ward Attending Provider Dr. Noris Youngblood Referring Provider Hans LIDAR SCIENTIST, LIDAR SCIENTIST-C Razia Attending Provider Dr. Jorge Benavides Primary Care Provider Dr. Jorge Benavides Attending Provider [phone] Jorge Benavides Referring Provider [phone] Jesse Sykes Attending Provider [phone] Beto Waggoner Attending Provider Dr. Ros Nice Referring Provider Dr. Jesse Sykes Referring Provider [phone] Noris Youngblood Referring Provider Dr. Jorge Benavides Primary Care Provider Dr. Jorge Benavides Attending Provider [phone] Dr. Jesse Sykes Attending Provider [phone] Jorge Benavides Referring Provider [phone] JUSTIN Fountain Attending Provider Unavailab sherri Youngblood MD, Noris Wilson Primary Care Provider Keith Rodrigez MD Unavailable Yasmin GERBER, Garth Ward Unavailable Dr. Jorge Benavides Primary Care Provider Dr. Andrae Dumont Attending Provider Dr. Juancho Fall Emergency Provider [phone] Harrison Wright Admit Provider Dr. Harrison Wright Attending Provider Dr. Harrison Wright Other Provider Dr. Brady Frye Other Provider [phone] Brady Frye Attending Provider [phone] Lamonte Guevara Other Provider [phone] Dr. Lamonte Guevara Attending Provider [phone] [facility] Unavailable Dr. Jorge Benavides Primary Care Provider Dr. Jorge Benavides Referring Provider [phone] JUSTIN Fountain Attending Provider Unavailab Dr. Andrae Laurent Attending Provider Dr. Juancho Fall Emergency Provider Dr. Harrison Wright Admit Provider Dr. Harrsion Wright Attending Provider Dr. Harrison Wright Other Provider Dr. Brady Frye Other Provider Dr. Brady Frye Attending Provider Dr. Lamonte Guevara Other Provider Dr. Lamonte Guevara Attending Provider Dr. Jesse Sykes Attending Provider Dr. Imtiaz Pack Attending Provider Dr. Julieta Johnson Attending Provider Elizabeth, Dr. Rendon Referring Provider Elizabeth, Dr. Rendon Other Provider Natalee Devlin Attending Provider Unavailable Dr. Jorge Benavides Primary Care Provider Dr. Jorge Benavides Referring Provider [phone] Dr. Jorge Benavides Primary Care Provider Dr. Jorge Benavides Attending Provider [phone] Garth Hoffman MD Unavailable Dr. Jorge Benavides Primary Care Provider Dr. Jorge Benavides Attending Provider [phone] Dr. Jorge Benavides Referring Provider [phone] Hans LIDAR SCIENTIST, LIDAR SCIENTIST-C Razia Attending Provider Dr. Jorge Benavides Primary Care Provider Dr. Jorge Benavides Attending Provider [phone] Dr. Jorge Benavides Referring Provider [phone] Jorge Benavides MD Primary Care Provider [phone] Jorge Benavides MD Primary Care Provider [phone] SANDY SHETTY Attending Unavailab le KENNEDY, JORGE G Primary Care Unavailable AURIN, MARIO Attending Unavailable KENNEDY, JORGE G Primary Care Unavailable AURIN, MARIO Attending Unavailable KENNEDY, JORGE G Primary Care Unavailable AURIN, MARIO Referring Unavailable KENNEDY, JORGE G Primary Care Unavailable AURIN, MARIO Attending Unavailable KENNEDY, JORGE G Primary Care Unavailable Randi ROONEY, Vicky Dawson Unavailable Gabriele GERBER, Xiao Unavailable Yonis GERBER, Amar Unavailable Aurin WINDER FIXER.REFINERY PIPELINE OPERATOR, Mario Unavailable [phone] Vicky Bryan PA-C Unavailable Unavailable Kennedy GERBER, Dr. Guadarrama Primary Care Provider [phone] Kennedy GERBER, Dr. Guadarrama Attending Provider Kennedy GERBER, Dr. Guadarrama Referring Provider Dr. Ros Nice DO Attending Provider [phone] Ros Nice DO Referring Provider [phone] Ruben Brar DO Emergency Provider Sunni GERBER, Dr. Beckie Ward Admit Provider Dr. Beckie Moeller MD Referring Provider Dr. Beckie Moeller MD Other Provider Dr. Angel Tay DO Attending Provider Dr. Ros Nice DO Other Provider [phone] Sunni GERBER, Dr. Beckie Ward Attending Provider Kennedy GERBER, Dr. Guadarrama Primary Care Provider [phone] Kennedy GERBER, Dr. Guadarrama Attending Provider Dr. Jorge Benavides MD Referring Provider Janeth Do Attending Provider Janeth Do Referring Provider Kennedy GERBER, Dr. Guadarrama Primary Care Provider [phone] Kennedy GERBER, Dr. Guadarrama Attending Provider Kennedy GERBER, Dr. Guadarrama Referring Provider Santy HE, Dr. Sommer Attending Provider Santy HE, Dr. Sommer Referring Provider Maykel HE, Dr. Miranda Emergency Provider [phone] Sunni GERBER, Dr. Beckie Ward Admit Provider Sunni GERBER, Dr. Beckie Ward Referring Provider Sunni GERBER, Dr. Beckie Ward Other Provider Jasvir HE, Dr. Ortiz Attending Provider Santy HE, Dr. Sommer Other Provider [phone] Sunni GERBER, Dr. Beckie Ward Attending Provider Janeth Do Attending Provider Janeth Do Referring Provider Elizabeth GERBER, Dr. Rendon Attending Provider Kennedy GERBER, Dr. Guadarrama Primary Care Provider [phone] Santy HE, Dr. Sommer Attending Provider Santy HE, Dr. Sommer Referring Provider Kennedy GERBER, Dr. Guadarrama Attending Provider Kennedy GERBER, Dr. Guadarrama Referring Provider Dr. Minor Izaguirre MD Emergency Provider Kennedy GEREBR, Dr. Guadarrama Primary Care Provider [phone] Kennedy GERBER, Dr. Guadarrama Referring Provider Dr. Jorge Benavides MD Attending Provider Dr. Julieta Johnson MD Attending Provider Santy HE, Dr. Sommer Attending Provider [phone] Santy HE, Dr. Sommer Referring Provider Zina GERBER, Dr. Gaxiola Attending Provider Zina GERBER, Dr. Gaxiola Emergency Provider Kennedy GERBER, Dr. Guadarrama Primary Care Provider Kennedy GERBER, Dr. Guadarrama Referring Provider Janeth Do Attending Provider Janeth Do Referring Provider Kennedy GERBER, Dr. Guadarrama Primary Care Provider Kennedy GERBER, Dr. Guadarrama Referring Provider Elizabeth GERBER, Dr. Rendon Attending Provider Arsen GERBER, Dr. Traylor Attending Provider Kennedy GERBER, Dr. Guadarrama Attending Provider Demiter PA Edgar Attending Provider Demiter PA Edgar Referring Provider Ungerer LIDAR SCIENTIST-C, Hayde Attending Provider Ungerer LIDAR SCIENTIST-C, Hayde Referring Provider Maxwell LIDAR SCIENTIST-C, Razia Attending Provider Kennedy GERBER, Dr. Guadarrama Primary Care Physician Zina GERBER, Dr. Gaxiola Attending Physician Zina GERBER, Dr. Gaxiola Emergency Department Phys ician Arsen GERBER, Dr. Traylor Attending Physician Kennedy GERBER, Dr. Guadarrama Attending Physician Kennedy GERBER, Dr. Guadarrama Referring Provider Dr. Ros Nice DO Attending Physician Dr. Ros Nice DO Referring Provider Donna ANDERSON Edgar Attending Physician Demiter PA Edgar Referring Provider Ungerer LIDAR SCIENTIST-C, Hayde Attending Physician Ricky LIDAR SCIENTIST-C, Hayde Referring Provider Hans ALEXIS-CRazia Attending Physician Onel GERBER, Dr. Molina Attending Physician ZACH, DOMENIC Referring Unavailable KENNEDY, JORGE G Primary Care Unavailable ZACH, DOMENIC Attending Unavailable ZACH, DOMENIC Referring Unavailable KENNEDY, JORGE G Primary Care Unavailable MERA HUDSON Referring Unavailable KENNEDY, JROGE G Primary Care Unavailable MERA HUDSON Attending Unavailable KENNEDY, JORGE G Primary Care Unavailable DOOKHAN, RAZIA Referring Unavailable KENNEDY, JORGE G Primary Care Unavailable ZACH, DOMENIC Referring Unavailable KENNEDY, JORGE G Primary Care Unavailable DOOKHAN, RAZIA Referring Unavailable KENNEDY, JORGE G Primary Care Unavailable ZACH, DOMENIC Attending Unavailable YONIS, AMAR Referring Unavailable KENNEDY, JORGE G Primary Care Unavailable DOOKHAN, RAZIA Attending Unavailable KENNEDY, JORGE G Primary Care Unavailable XIAO SUAZO Attending Unavailable KENNEDY, JORGE G Primary Care Unavailable KENNEDY, JORGE G Primary Care Unavailable KRISHNASERICA, AMAR Attending Unavailable SELF Referring Unavailable KENNEDY, JORGE G Primary Care Unavailable KRISHNASERICA, AMAR Attending Unavailable ZACH, DOMENIC Referring Unavailable EKNNEDY, JORGE G Primary Care Unavailable Kennedy GERBER, Dr. Guadarrama Primary Care Physician [phone] Norma Vyas Attending Physician Unavailable Hans ALEXIS-CRazia Referring Provider Dr. Berry Avitia MD Attending Physician Dr. Berry Avitia MD Referring Provider Dr. Herve Melton DO Attending Physician Dr. Herve Melton DO Emergency Department Physic tuan Ward Millan Attending Physician Ward Millan Referring Provider Adore GERBER, Dr. Smart Referring Provider [place], Jorge Primary Care Unavailable Santy, Ros Referring Unavailable Santy, Ros Attending Unavailable Hans ALEXIS, Razia Attending Unavailable [place], Jorge Primary Care Unavailable Demiter, Edgar Referring Unavailable Demiter, Edgar Attending Unavailable Kennedy, Jorge Primary Care Unavailable Demiter, Edgar Attending Unavailable Demiter, Edgar Referring Unavailable [place], Jorge Primary Care Unavailable Norma Vyas Attending Unavailable [place], Jorge Primary Care Unavailable Kennedy, Jorge Referring Unavailable [place], Jorge Attending Unavailable Kennedy, Jorge Primary Care Unavailable Demiter, Edgar Attending Unavailable [place], Jorge Referring Unavailable [place], Jorge Primary Care Unavailable [place], Jorge Referring Unavailable Kymberly Leger Attending Unavailable [place], Jorge Primary Care Unavailable [place], Jorge Primary Care Unavailable White, Beckie L Referring Unavailable White, Beckie L Admitting Unavailable White, Beckie L Consulting Unavailable White, Beckie L Attending Unavailable [place], Jorge Primary Care Unavailable Angel Tay Attending Unavailable White, Beckie L Admitting Unavailable White, Beckie L Consulting Unavailable White, Beckie L Referring Unavailable [place], Jorge Attending Unavailable [place], Jorge Primary Care Unavailable [place], Jorge Referring Unavailable Ungerer, Hayde Referring Unavailable Ungerer, Hayde Attending Unavailable Kennedy, Jorge Primary Care Unavailable [place], Jorge Attending Unavailable [place], Jorge Primary Care Unavailable Kennedy, Jorge Referring Unavailable Jenise Sykesl Attending Unavailable Kennedy, Jorge Primary Care Unavailable Santy, Ros Referring Unavailable Santy, Ros Attending Unavailable [place], Jorge Primary Care Unavailable Demiter, Edgar Attending Unavailable Demiter, Edgar Referring Unavailable [place], Jorge Primary Care Unavailable Santy, Ros Referring Unavailable [place], Jorge Primary Care Unavailable Santy, Ros Attending Unavailable [place], Jorge Attending Unavailable Kennedy, Jorge Primary Care Unavailable Kennedy, Jorge Referring Unavailable [place], Jorge Primary Care Unavailable Santy, Ros Referring Unavailable Santy, Ros Attending Unavailable [place], Jorge Primary Care Unavailable Angel Tay Attending Unavailable White, Beckie L Referring Unavailable White, Beckie L Admitting Unavailable White, Beckie L Consulting Unavailable Santy, Ros Consulting Unavailable [place], Jorge Primary Care Unavailable Santy, Ros Referring Unavailable Santy, Ros Attending Unavailable Maxwell LIDAR SCIENTIST, Razia Referring Unavailable Hans LIDAR SCIENTIST, Razia Attending Unavailable Kennedy, Jorge Primary Care Unavailable Berry Avitia Attending Unavailable Berry Avitia Referring Unavailable [place], Jorge Primary Care Unavailable Kennedy, Jorge Primary Care Unavailable Kennedy, Jorge Attending Unavailable Kennedy, Jorge Referring Unavailable Janeth Landis Attending Unavailable [place], Jorge Primary Care Unavailable Atanasov, Janeth Referring Unavailable Kennedy, Jorge Primary Care Unavailable Santy, Ros Referring Unavailable Santy, Ros Attending Unavailable Santy, Ros Attending Unavailable Kennedy, Jorge Primary Care Unavailable Santy, Ros Referring Unavailable Santy, Ros Attending Unavailable Kennedy, Jorge Primary Care Unavailable Santy, Ros Referring Unavailable Santy, Ros Referring Unavailable Santy, Ros Attending Unavailable [place], Jorge Primary Care Unavailable Ward Millan Attending Unavailable Ward Millan Referring Unavailable [place], Jorge Primary Care Unavailable Santy, Ros Referring Unavailable Kennedy, Jorge Primary Care Unavailable Santy Ros Attending Unavailable Janeth Landis Attending Unavailable [place], Jorge Primary Care Unavailable Janeth Landis Referring Unavailable [place], Jorge Referring Unavailable Kennedy, Jorge Attending Unavailable [place], Jorge Primary Care Unavailable Santy, Ros Referring Unavailable Santy, Ros Attending Unavailable Kennedy, Jorge Primary Care Unavailable Julieta Johnson Attending Unavailable [place], Jorge Referring Unavailable [place], Jorge Primary Care Unavailable [place], Jorge Primary Care Unavailable Dustin Liu Attending Unavailable Kennedy, Jorge Attending Unavailable Kennedy, Jorge Referring Unavailable [place], Jorge Primary Care Unavailable Kymberly Leger Attending Unavailable Kennedy, Jorge Referring Unavailable [place], Jorge Primary Care Unavailable Berry Avitia Attending Unavailable Santy, Ros Referring Unavailable Kennedy, Jorge Primary Care Unavailable Kennedy, Jorge Primary Care Unavailable Ward Millan Attending Unavailable [place], Jorge Referring Unavailable Kennedy, Jorge Primary Care Unavailable Berry Avitia Attending Unavailable Kennedy, Jorge Referring Unavailable Kennedy, Jorge Primary Care Unavailable Janeth Landis Attending Unavailable [place], Jorge Referring Unavailable [place], Jorge Referring Unavailable [place], Jorge Primary Care Unavailable Julieta Johnson Attending Unavailable [place], Jorge Primary Care Unavailable Ros Nice Attending Unavailable Santy, Ros Referring Unavailable Kennedy, Jorge Primary Care Unavailable Ros Nice Attending Unavailable Razia Maxwell NP Attending Unavailable Kennedy, Jorge Referring Unavailable [place], Jorge Primary Care Unavailable [place], Jorge Attending Unavailable Kennedy, Jorge Primary Care Unavailable Kennedy, Jorge Referring Unavailable Kennedy, Jorge Referring Unavailable Carlos Garcíassica Attending Unavailable Kennedy, Jorge Primary Care Unavailable [place], Jorge Attending Unavailable [place], Jorge Primary Care Unavailable Kennedy, Jorge Referring Unavailable Kennedy, Jorge Primary Care Unavailable Janeth Landis Referring Unavailable Janeth Landis Attending Unavailable Kennedy, Jorge Primary Care Unavailable Santy, Ros Referring Unavailable Ros Nice Attending Unavailable [place], Jorge Primary Care Unavailable Santy Ros Referring Unavailable Ros Nice Attending Unavailable Edgar Thompson Attending Unavailable Demiter, Edgar Referring Unavailable [place], Jorge Primary Care Unavailable [place], Jorge Primary Care Unavailable Herve Melton Attending Unavailable Kennedy, Jorge Primary Care Unavailable Minor Izaguirre Attending Unavailable Shastar, Hayde Referring Unavailable Ungerer Hayde Attending Unavailable Kennedy, Jorge Primary Care Unavailable DemMariela avalosr Attending Unavailable Demiter, Edgar Referring Unavailable Kennedy, Jorge Primary Care Unavailable Allergies Allergy Classification Reported Allergen(s) Allergy Type Date of Onset Reaction(s) Facility Adhesive Tape (1 source) Adhesive Tape Substance Allergy 012 Rash [facility] amLODIPine (2 sources) amLODIPine Drug Allergy Swelling [facility] Angiotensin Converting Enzyme (GREGORIO) Inhibitors (2 sources) benazepril Drug Allergy Nausea And Vomiting, Other (See Comments), Vomiting, Other: See Comments [facility] HMG-CoA Reductase Inhibitors (statins) (2 sources) Simvastatin Drug Allergy Other (See Comments), Myalgia, Other: See Comments [facility] hydroCHLOROthiazide (2 sources) hydroCHLOROthiazide Drug Allergy Other (See Comments), Other: See Comments [facility] Iodine (and Iodine containting drugs) (2 sources) Iodine Drug Allergy Shortness Of Breath, Anaphylaxis [facility] metFORMIN (1 source) metFORMIN Drug Allergy Other: See Comments [facility] [place] metFORMIN / SITagliptin (1 source) metFORMIN / SITagliptin Drug Allergy Other (See Comments) [facility] Metoprolol (1 source) Metoprolol Drug Allergy Shortness of Breath [facility] [place] Work Phone: NSAIDs (2 sources) celecoxib Drug Allergy Other (See Comments), Other: See Comments [facility] (4 sources) Meperidine Drug Allergy Nausea And Vomiting, Other (See Comments), Shortness Of Breath, Other: See Comments, Vomiting [facility] Penicillins (antibiotic) (2 sources) Penicillins Drug Allergy Hives [facility] rivaroxaban (1 source) rivaroxaban Drug Allergy Other: See Comments [facility] [place] Shellfish (2 sources) Shellfish Food Allergy Anaphylaxis [facility] SITagliptin (1 source) SITagliptin Drug Allergy Other: See Comments [facility] [place] Spironolactone (2 sources) Spironolactone Drug Allergy Other (See Comments), Rash, Other: See Comments [facility] (20 sources) Adhesive Tape Propensity to adverse reactions to drug Rash [facility], [place] (20 sources) benazepril; Translations: [BENAZEPRIL HCL] Drug Allergy Nausea And Vomiting, Other (See Comments), Vomiting, Other: See Comments [facility], [place] (20 sources) celecoxib; Translations: [CELECOXIB] Drug Allergy Other (See Comments), Other: See Comments [place], [place] (20 sources) hydroCHLOROthiazide; Translations: [hydrochlorothiazide] Drug Allergy Other (See Comments), Other: See Comments [place] (20 sources) Iodine; Translations: [iodine] Drug Allergy Shortness Of Breath, Anaphylaxis [place] (20 sources) Meperidine; Translations: [meperidine] Drug Allergy Nausea And Vomiting, Vomiting [place] (20 sources) metFORMIN / SITagliptin; Translations: [metformin-sitaglipti n] Drug Allergy Other (See Comments) [place] (20 sources) Penicillins; Translations: [PENICILLINS] Propensity to adverse reactions to drug Hives [place] (20 sources) Propoxyphene; Translations: [propoxyphene] Drug Allergy Other (See Comments), Shortness Of Breath [place] (20 sources) Shellfish Propensity to adverse reactions to drug Anaphylaxis [place] (20 sources) Simvastatin; Translations: [simvastatin] Drug Allergy Other (See Comments), Myalgia, Other: See Comments [place] (20 sources) Spironolactone; Translations: [spironolactone] Drug Allergy Other (See Comments), Rash, Other: See Comments [place] (20 sources) Shellfish-Derived Products Propensity to adverse reactions to drug Anaphylaxis [place] (20 sources) amLODIPine; Translations: [AMLODIPINE] Drug Allergy Swelling [place] (20 sources) benazepril; Translations: [benazepril] Drug Allergy Unknown, cough [facility] Work Phone: (20 sources) Lisinopril; Translations: [lisinopril] Drug Allergy NEEDS FOLLOW-UP, headaches [facility] Work Phone: (20 sources) metFORMIN; Translations: [METFORMIN] Drug Allergy Other: See Comments [facility] (20 sources) Metoprolol; Translations: [METOPROLOL] Drug Allergy Shortness of Breath [facility] [place] (1 source) Penicillins (Antibiotic) [facility] Work Phone: (1 source) Seafood Allergy to substance Shortness of breath [facility] Work Phone: (20 sources) SITagliptin; Translations: [SITAGLIPTIN] Drug Allergy Other: See Comments [facility] (20 sources) Iodine and Iodide Containing Produc; Translations: [Iodine and Iodide Containing Produc] Allergy to substance Shortness of breath [facility] (20 sources) Adhesive agent; Translations: [ADHESIVE] Drug Intolerance 012 Rash [facility] [place] (8 sources) Penicillins Drug Intolerance 012 [facility] (20 sources) Propoxyphene; Translations: [PROPOXYPHENE HCL] Drug Allergy 012 Shortness of Breath, Other: See Comments [facility] [place] (20 sources) Shellfish; Translations: [SHELLFISH] Food Allergy 015 Anaphylaxis [facility] [place] (2 sources) Penicillin; Translations: [penicillin] Drug Allergy [facility] Work Phone: (2 sources) Seafood Food allergy shortness of breath [facility] Work Phone: (2 sources) sun radiation Allergy to substance sun poisioning [facility] Work Phone: (4 sources) rivaroxaban Drug Allergy 022 pericardial effusion [facility] Work Phone: (20 sources) Shellfish; Translations: [shellfish derived] Allergy to substance Shortness of breath [facility] Comment on above: Seafood (20 sources) Penicillins Drug Intolerance [facility] (20 sources) Penicillins Allergy to substance [facility] (20 sources) rivaroxaban; Translations: [RIVAROXABAN] Drug Allergy Other: See Comments [facility] Comment on above: Was on Prednisone an d Colchicine for 13 months (20 sources) Shellfish; Translations: [SHELLFISH CONTAINING PRODUCTS] Drug Allergy Anaphylaxis, Shortness of Breath [facility] [place] (8 sources) Penicillins Drug Intolerance [facility] (1 source) benazepril Drug Allergy [facility] Rep[facility] (1 source) hydroCHLOROthiazide Drug Allergy [facility] Rep[facility] (1 source) Lisinopril Drug Allergy [facility] Rep[facility] (1 source) Meperidine Drug Allergy [facility] Rep[facility] (1 source) metFORMIN [facility] [facility] (1 source) Metoprolol Drug Allergy [facility] (1 source) Penicillins Drug allergy (disorder) [facility] (1 source) Propoxyphene Drug Allergy [facility] (1 source) rivaroxaban Drug Allergy [facility] (1 source) Simvastatin Drug Allergy [facility] (1 source) SITagliptin Drug Allergy [facility] (1 source) Spironolactone Drug Allergy [facility] Medications Current Medications Medication Drug Class(es) Dates Sig (Normalized) Sig (Original) amLODIPine 10 mg oral tablet (20 sources) Dihydropyridine Calcium Channel Ricarda Start: 11-07-2023 End: 11-05-2025 Start: 12-03-2022 End: 11-04-2023 Start: 06-30-2017 End: 06-18-2019 Comment on above: Take 1 tablet by hafsa th once daily. apixaban 2.5 mg oral tablet (20 sources) Factor Xa Inhibitor Start: 05-15-2024 End: 06-02-2026 Start: 06-18-2023 End: 11-16-2024 Comment on above: Take 1 tablet by hafsa twice daily. ascorbic acid 500 mg oral capsule (20 sources) Vitamin C Start: 02-07-2023 Start: 02-07-2023 take 1 mg by mouth once daily Ascorbic Acid (Vitamin C) Active MG PO DAILY February 06, 2023 11:00pm Start: 01-08-2023 Ascorbic Acid 500 mg cpER Take by mouth once daily. 3 01/08/2023 Active Comment on above: Take by mouth once d aily. 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 60 tablet 11 11/09/2024 01/04/2025 Discontinued cholecalciferol 0.125 mg ora l tablet (20 sources) Vitamin D Start: 12-11-2022 Start: 03-28-2022 take 1 tablet by [facility] once daily Cholecalciferol (Vitamin D3) (Vitamin D3) 125 mcg (5,000 unit) Tablet Active 125 MCG PO DAILY March 27, 2022 11:00pm Start: 02-14-2018 take 2000 [IU] by [facility] once daily Cholecalciferol (Vitamin D3) Active 2000 UNIT PO DAILY February 14, 2018 4:31pm take 1 tablet by [facility] once daily cholecalciferol (VITAMIN D3) 5,000 unit tab Take 5,000 Units by mouth once daily. Active Cholecalciferol (VITAMIN D3) 1.25 MG (19680 UT) CAPS Take by mouth daily 0 Active Comment on above: Take 5,000 Units by mouth once daily. cinnamon preparation 500 mg oral tablet (20 sources) Non-Standardized Food Allergenic Extract take 2 tablets by mouth once daily Cinnamon 500 MG TABS Take 1,000 mg by mouth daily 0 Active take 2 tablets by mouth once marichuy ly Cinnamon 500 MG TABS Take 1,000 mg by mouth daily 0 Active clindamycin 300 mg oral capsule (16 sources) Lincosamide Antibacterial Start: 02-10-2024 End: 02-14-2024 take 1 capsule by mouth every eight hours clindamycin (CLEOCIN) 300 mg capsule Take 1 capsule by mouth every 8 hours for 12 doses. 12 capsule 0 02/10/2024 02/14/2024 Active Start: 12-04-2023 End: 02-05-2024 clindamycin (CLEOCIN) 150 mg capsule as directed. 0 12/04/2023 02/05/2024 Discontinued (Course of therapy completed) Comment on above: as directed. Cranberry (20 sources) Non-Standardized Food Allergenic Extract , Non-Standardized Plant Allergenic Extract Start: 02-07-2023 Start: 02-07-2023 take 1 capsule by mo ut[facility] once daily at mealtime Cranberry 500 mg capsule Active 500 mg PO DAILY February 07, 2023 12:00am administer with meals Start: 02-07-2023 take 500 mg by mouth once daily at mealtime Cranberry Active 500 MG PO DAILY February 06, 2023 11:00pm administer with meals Start: 02-07-2023 take 500 mg by mouth once daily at mealtime Cranberry Active 500 MG PO DAILY February 07, 2023 12:00am administer with meals Start: 01-08-2023 take 1 capsule by mo [facility] once daily Cranberry 500 mg cap Take 1 capsule by mouth once daily. 01/08/2023 Active Start: 01-08-2023 take 1 capsule by mo [facility] once daily Cranberry 500 mg cap Take 1 capsule by mouth once daily. 0 01/08/2023 Suspended Start: 01-08-2023 take 1 capsule by mo [facility] once daily Cranberry 500 mg cap Take 1 capsule by mouth once daily. 0 01/08/2023 Active Comment on above: Take 1 capsule by mo ut[facility] once daily. Docosahexaenoate (11 sources) take 830 mg by mouth once daily in the morning Docosahexaenoic Acid (DHA COMPLETE PO) Take 830 mg by mouth every morning 0 Active estradiol 0.1 mg/ml vaginal cream (19 sources) Estrogen Start: 05-17-20 Start: 05-17-2025 Estradiol 0.01 % (0.1 mg/gram) cream Active 1 g VAGINAL 3 TIMES A WEEK 42.5 90 3 May 17, 2025 12:00am ferrous sulfate 325 mg oral tablet (13 sources) Start: 06-02-2025 24 hr isosorbide mononitrate 30 mg extended release oral tablet (20 sources) Nitrate Vasodilator Start: 11-09-2024 End: 02-24-2026 Start: 03-21-2020 take 1 tablet by hafsa th once daily isosorbide mononitrate (IMDUR) 60 MG extended release tablet Take 1 tablet by mouth daily 90 tablet 1 03/21/2020 Active Start: 03-02-2020 take 1 tablet by hafsa th once daily isosorbide mononitrate (IMDUR) 30 MG extended release tablet Take 1 tablet by mouth daily 30 tablet 3 03/02/2020 Active latanoprost 0.05 mg/ml ophthalmic solution (20 sources) Prostaglandin Analog Start: 03-28-[address] 0.005 % Drops Active 1 NMA EACH EYE AT BEDTIME March 28, 2022 12:00am Check with primary doctor Start: 03-12-2022 take 1 dose into the eye(s) once daily at bedtime latanoprost 0.005% ophthalmic solution Dose = 1 drop(s), Eyes, both, qHS, # 2.5 mL, 0 Refill(s) Start Date: 03/12/22 Status: Ordered Start: 10-06-2021 Start: 10-06-2021 take 1 drop(s) into the eye(s) once daily at bedtime latanoprost (XALATAN) 0.005 % ophthalmic solution Use 1 Drop in both eyes daily at bedtime. 0 10/06/2021 Active Start: 02-19-2021 take 1 drop(s) into the eye(s) at bedtime latanoprost (XALATAN) 0.005 % ophthalmic solution INSTILL 1 DROP INTO EACH EYE AT BEDTIME 0 02/19/2021 Active Comment on above: Use 1 Drop in both e yes daily at bedtime. Misc Medication (2 sources) Start: 2 take 830 mg by mouth once daily Misc Medication 830 mg, Oral, Daily, DHA, 0 Refill(s) Start Date: 03/12/22 Status: Ordered NONFORMULARY (6 sources) NONFORMULARY marichuy ly Diabetic Health supplement/OTC 0 Active olmesartan medoxomil 40 mg oral tablet (20 sources) Angiotensin 2 Receptor Ricarda Start: End: take 0.5 tablet by mouth once daily olmesartan (BENICAR) 40 mg tablet Take 0.5 tablets by mouth once daily. 45 tablet 3 02/07/2025 02/07/2026 Active Start: 12-09-2024 Start: 11-04-2023 End: 11-19-2023 take 1.5 tablets by mouth once daily olmesartan (BENICAR) 40 mg tablet Take 1.5 tablets by mouth once daily. 0 11/04/2023 11/19/2023 Discontinued Start: 10-21-2023 End: 11-16-2024 Olmesartan 40 mg tablet Disc ontinued 60 mg PO DAILY 135 December 24, 2023 9:09am July 15, 2024 11:51am Start: 10-21-2023 take 60 mg by mouth once daily Olmesartan Active 60 MG PO DAILY October 21, 2023 10:48am Start: 02-07-2023 End: 12-09-2024 Start: 01-10-2023 End: 11-10-2025 take 1 tablet by mouth once daily Olmesartan 40 mg tablet Discontinued 40 mg PO DAILY 90 July 07, 2023 8:08am October 21, 2023 11:49am Comment on above: Take 1 tablet by hafsa th once daily. Take 1.5 tablets by mouth once daily. Lattimore 3,6,9 Combination No.7 (Lattimore Dha) 92 mg (43 mg-22 [id number]) tablet,chewable (6 sources) Start: 04-15-2022 Lattimore 3,6,9 Combination No.7 (Lattimore Dha) 92 mg (43 mg-22 [id number]) tablet,chewable Active MG PO April 14, 2022 11:00pm Start: 04-15-2022 Lattimore 3,6,9 Co mbination No.7 (Lattimore Dha) 92 mg (43 mg-22 [id number]) tablet,chewable Active MG PO April 15, 2022 12:00am omega 6-fkf-siz-fish oil 360 mg-108 mg- 180 mg-1,200 mg cap (20 sources) omega 3-dha-epa- fish oil 360 mg-108 mg- 180 mg-1,200 mg cap q 24 HR. Active omega 3-dha-epa- fish oil 360 mg-108 mg- 180 mg-1,200 mg cap q 24 HR. 0 Suspended omega 3-dha-epa- fish oil 360 mg-108 mg- 180 mg-1,200 mg cap q 24 HR. 0 Active Comment on above: q 24 HR. Jlnkz-9l-Qws-Epa-Fish Oil (10 sources) Start: 12-01-2022 take 1 capsule by mouth once daily Vgffj-0j-Wzu-Epa-Fis h Oil Active 830 CAP PO DAILY December 01, 2022 1:00am Start: 12-01-2022 take 1 capsule by mo uth once daily Bffdl-3b-Yuo-Epa-Fish Oil Active 830 CAP PO DAILY December 01, 2022 12:00am Hfaki-5l-Efa-Epa-Fish Oil 350-400 mg Capsule (17 sources) Start: 12-01-2022 Hisax-4f-Ltl-E pa-Fish Oil 350-400 mg Capsule Active 1 NMA PO DAILY December 01, 2022 1:00am supplement Start: 12-01-2022 Yqyed-3y-Rfc-E pa-Fish Oil 350-400 mg Capsule Active 1 NMA PO DAILY December 01, 2022 1:00am Oral Appliance (20 sources) Start: 03-19-2022 Oral Appliance Active 0 .ROUTE .MEDSUPPLY 1 0 March 19, 2022 12:00am CLIFFORD As directed Start: 03-19-2022 Oral Appliance Active 0 .ROUTE .MEDSUPPLY 1 March 18, 2022 11:00pm As directed Start: 03-19-2022 Oral Appliance Active 0 .ROUTE .MEDSUPPLY March 19, 2022 12:00am As directed perflutren lipid microsphere s 1.3 mL in NaCl (PF) 0.9% 10 mL injection (DEFINITY) (20 sources) Start: 05-14-2023 End: 08-12-2024 perflutren lipid microsphere s 1.3 mL in NaCl (PF) 0.9% 10 mL injection (DEFINITY) Start: 05-30-2022 End: 08-29-2023 perflutren lipid microsphere s 1.3 mL in NaCl (PF) 0.9% 10 mL injection (DEFINITY) Start: 12-12-2021 End: 05-30-2022 perflutren lipid microsphere s 1.3 mL in NaCl (PF) 0.9% 10 mL injection (DEFINITY) Start: 12-12-2021 End: 03-13-2023 perflutren lipid microsphere s 1.3 mL in NaCl (PF) 0.9% 10 mL injection (DEFINITY) Start: 08-28-2021 End: 11-27-2022 perflutren lipid microsphere s 1.3 mL in NaCl (PF) 0.9% 10 mL injection (DEFINITY) 125 ml sodium chloride 9 mg/ml prefilled syringe (20 sources) Start: 03-27-2021 End: 08-12-2024 sodium chloride 0.9 % (flush) 10 mL (BD POSIFLUSH) torsemide 20 mg oral tablet (20 sources) Loop Diuretic Start: 06-03-2025 End: 06-16-2025 Start: 11-20-2020 take 1 tablet by hafsa th once daily torsemide (DEMADEX) 10 MG tablet TAKE 1 TABLET BY MOUTH ONCE DAILY FOR 90 DAYS 0 11/20/2020 Active vibegron (GEMTESA) 75 mg tablet (20 sources) Start: 01-29-2023 take 1 tablet by mouth once daily vibegron (GEMTESA) 75 mg tablet Take 1 tablet by mouth once daily. 01/29/2023 Active Start: 01-29-2023 take 1 tablet by hafsa th once daily vibegron (GEMTESA) 75 mg tablet Take 1 tablet by mouth once daily. 0 01/29/2023 Active Start: 01-29-2023 take 1 tablet by hafsa th once daily vibegron (GEMTESA) 75 mg tablet Take 1 tablet by mouth once daily. 0 01/29/2023 Suspended Comment on above: Take 1 tablet by hafsa th once daily. Vitamin B12 500 mcg oral tablet (2 sources) Start: 03-12-2022 Vitamin B12 500 mcg oral tablet Dose : 500 mcg = 1 tab(s), Oral, qDay, # 30 tab(s), 0 Refill(s) Start Date: 03/12/22 Status: Ordered Vitamin D3 (2 sources) Start: 03-12-2022 Vitamin D3 Dose : 125 mcg = 1 cap(s), Oral, qDay, # 30 cap(s), 0 Refill(s) Start Date: 03/12/22 Status: Ordered (20 sources) Start: 06-21-2025 Start: 12-01-2022 Start: 12-01-2022 End: 04-21-2023 Start: 06-11-2022 End: 06-19-2022 Start: 03-19-2022 Completed/Discontinued Medications Medication Drug Class(es) Dates Sig (Normalized) Sig (Original) acetaminophen 500 mg oral tablet (20 sources) Start: 03-28-2022 take 1 tablet by mouth once daily Tylenol Dose : 1,000 mg = 2 tab(s), Oral, TID, not to exceed 3000 mg/day, 0 Refill(s) Start Date: 03/28/22 Status: Ordered Start: 03-28-2022 End: 06-11-2022 Start: 03-28-2022 End: 06-11-2022 take 1000 mg by mouth every eight hours Acetaminophen Discontinued 1000 MG PO EVERY 8 HOURS April 07, 2022 12:12pm June 11, 2022 10:03am amLODIPine 10 mg / olmesarta n medoxomil 40 mg oral tablet (20 sources) Dihydropyridine Calcium Channel Ricarda, Angiotensin 2 Receptor Ricarda Start: 12-01-2022 End: 12-03-2022 Start: 12-01-2022 End: 12-03-2022 take 1 tablet by mouth at bedtime Amlodipine-Olmesartan Discontinued 1 TABLET PO AT BEDTIME December 01, 2022 12:00am December 03, 2022 9:01am Start: 11-27-2022 End: 01-10-2023 take 1 tablet by mouth once daily in the evening amLODIPine-Olmesartan 10-40 mg tab Take 1 tablet by mouth every evening. 90 tablet 3 11/27/2022 01/10/2023 Discontinued (Course of therapy completed) Comment on above: Take 1 tablet by hafsa th every evening. amoxicillin 875 mg / clavulanate 125 mg oral tablet (20 sources) Penicillin-class Antibacterial Start: 12-09-2018 End: 12-10-2018 Start: 12-09-2018 End: 12-10-2018 Amoxicillin-Pot Clavulanate (Augmentin) 875-125 mg tablet Discontinued 1 {tbl} PO TWICE A DAY 20 0 December 09, 2018 12:00am December 10, 2018 3:40pm aspirin 81 mg delayed release oral tablet (20 sources) Platelet Aggregation Inhibitor, Nonsteroidal Anti-inflammatory Drug Start: 02-07-2023 End: 11-10-2024 Start: 02-04-2023 End: 06-24-2024 take 1 tablet by mouth once daily aspirin 81 mg chewable tablet Take 1 tablet by mouth once daily. 30 tablet 1 02/04/2023 06/24/2024 Discontinued (Other) Start: 06-19-2022 End: 06-19-2022 Start: 06-19-2022 End: 12-12-2022 Start: 03-28-2022 End: 06-19-2022 take 1 tablet by mouth twice daily at mealtime Aspirin 81 MG tablet,chewable Discontinued 81 mg PO TWICE DAILY WITH MEALS March 28, 2022 3:09pm June 19, 2022 12:53pm DVT Prophylaxis Start: 03-28-2022 take 1 tablet by hafsa th twice daily at mealtime aspirin Dose : 81 mg = 1 tab(s), Oral, BIDM, Take 81 mg aspirin twice daily with food for 4 weeks postoperatively for DVT prophylaxis, 0 Refill(s) Start Date: 03/28/22 Status: Ordered Start: 03-12-2022 aspirin 81 mg oral delayed release tablet Dose : 81 mg = 1 tab(s), Oral, Daily, 0 Refill(s) Start Date: 03/12/22 Status: Ordered Start: 09-01-2020 End: 02-07-2023 Start: 02-16-2018 End: 06-19-2022 take 1 tablet by hafsa th once daily in the morning aspirin 81 MG tablet Take 81 mg by mouth every morning 0 Active Comment on above: Take 1 tablet by hafsa th three times daily. Take 1 tablet by hafsa th once daily. azithromycin 250 mg oral tab let (20 sources) Macrolide Antimicrobial Start: 12-10-2018 End: 03-10-2019 calcitriol 0.24977 mg oral capsule (20 sources) Vitamin D3 Analog Start: 02-14-2018 End: 03-19-2022 Start: 06-30-2017 calcitRIOL (RO CALTROL) 0.5 MCG capsule 25 mcg daily 0 06/30/2017 Active Start: 06-30-2017 calcitRIOL (RO CALTROL) 0.5 MCG capsule 0.5 mcg daily 0 06/30/2017 Active carvedilol 25 mg oral tablet (20 sources) alpha-Adrenergic Ricarda, beta-Adrenergic Ricarda Start: 02-04-2023 End: 02-08-2025 Start: 02-16-2018 End: 04-02-2018 Comment on above: Take 1 tablet by hafsa twice daily with meals. cephalexin 250 mg oral capsu le (20 sources) Cephalosporin Antibacterial Start: 05-17-2025 End: 06-22-2025 Start: 09-09-2023 End: 02-18-2024 take 1 capsule by mouth once daily at bedtime cephALEXin (KEFLEX) 250 mg capsule Take 1 capsule by mouth daily at bedtime. 0 09/09/2023 02/18/2024 Discontinued Start: 10-28-2022 End: 04-21-2023 Comment on above: Take 1 capsule by mo [facility] twice daily for 7 days. Take 1 capsule by mo [facility] daily at bedtime. chlorthalidone 25 mg oral ta blet (20 sources) Thiazide-like Diuretic Start: 12-01-2022 End: 04-21-2023 Start: 12-01-2022 End: 04-21-2023 take 12.5 mg by mouth once daily Chlorthalidone Discontinued 12.5 MG PO DAILY December 01, 2022 12:00am April 21, 2023 9:35am Start: 11-27-2022 End: 01-10-2023 take 0.5 tablet by mouth once daily chlorthalidone (HYGROTON) 25 mg tablet Take 0.5 tablets by mouth once daily. 45 tablet 3 11/27/2022 01/10/2023 Discontinued (Course of therapy completed) take 1 tablet by hafsa once daily, then take 0.5 tablet by mouth once daily chlorthalidone (HYGROTON) 25 MG tablet Indications: 1/2 daily Take 25 mg by mouth Indications: 1/2 daily 0 Active Comment on above: Take 0.5 tablets by mouth once daily. cinnamon bark 500 mg oral capsule (20 sources) Start: 12-12-2022 End: 11-16-2024 take 200 mg by mouth once daily cinnamon bark (CINNAMON ORAL) Take by mouth. Take 2,00mg daily. Active take 200 mg by mouth once daily cinnamon bark (CINNAMON ORAL) Take by mouth. Take 2,00mg daily. 0 Suspended take 200 mg by mouth once daily cinnamon bark (CINNAMON ORAL) Take by mouth. Take 2,00mg daily. 0 Active Comment on above: Take by mouth. Take 2,00mg daily. ciprofloxacin 250 mg oral ta blet (20 sources) Quinolone Antimicrobial Start: 11-17-2024 End: 12-17-2024 clopidogrel 75 mg oral table t (20 sources) [id number] Platelet Inhibitor Start: 05-15-2024 End: 05-20-2025 colchicine 0.6 mg oral table t (20 sources) Start: 12-11-2023 End: 09-23-2024 Start: 12-11-2023 End: 09-23-2024 Start: 12-11-2023 End: 02-07-2025 take 1 tablet by mouth every other day colchicine 0.6 mg tablet Take 1 tablet by mouth every other day. 45 tablet 3 01/09/2024 02/07/2025 Discontinued (Discontinued by Patient) Start: 06-19-2022 End: 06-19-2022 take 1 tablet by mouth once daily Colchicine 0.6 mg tablet Discontinued 0.6 mg PO DAILY June 19, 2022 12:54pm June 19, 2022 2:54pm PERICARDITS Start: 10-19-2021 End: 07-15-2024 Start: 10-19-2021 take 1 capsule by [facility] once daily MITIGARE 0.6 mg capsule TAKE 1 CAPSULE BY MOUTH ONCE DAILY FOR 90 DAYS 0 10/19/2021 Active Start: 07-25-2019 End: 02-07-2023 Start: 07-25-2019 End: 02-07-2023 take 1 tablet by mouth twice daily Colchicine 0.6 mg tablet Discontinued 0.6 mg PO TWICE A DAY 60 2 May 13, 2022 11:29am June 19, 2022 12:54pm gout Start: 07-25-2019 End: 02-07-2023 take 1 tablet by mouth every other day Colchicine 0.6 mg tablet Discontinued 0.6 mg PO .qod June 19, 2022 2:51pm February 07, 2023 8:37am PERICARDITS Comment on above: TAKE 1 CAPSULE BY [facility] ONCE DAILY FOR 90 DAYS every 48 hours. Take 1 tablet by [facility] two times a day. Take 1 tablet by [facility] every other day. 1 ml denosumab 60 mg/ml prefilled syringe (20 sources) RANK Ligand Inhibitor Start: End: dexamethasone 1 mg oral tablet (19 sources) Corticosteroid Start: End: dexAMETHasone (DECADRON) 1 mg tablet TAKE 1 TABLET BY MOUTH AT 11PM THE NIGHT BEFORE CORTISOL TEST. 0 02/05/2023 11/19/2023 Discontinued (Other) Comment on above: TAKE 1 TABLET BY [facility] AT 11PM THE NIGHT BEFORE CORTISOL TEST. diphenhydrAMINE hydrochloride 25 mg oral capsule (20 sources) Histamine-1 Receptor Antagonist Start: End: take 1 capsule by mouth every hour diphenhydrAMINE (BENADRYL) 25 mg capsule Take 1 capsule by mouth 1 hour prior to procedure with last Prednisone 1 capsule 04/21/2024 11/10/2024 Discontinued (Course of therapy completed) Start: 12-02-2023 End: 02-05-2024 take 1 capsule by mouth every hour diphenhydrAMINE (BENADRYL) 50 mg capsule Indications: Nonrheumatic aortic valve stenosis , Aortic valve disorder , Encounter for preprocedural cardiovascular examination Take 1 capsule by mouth as directed for 2 doses. one (1) hour prior to exam. 1 capsule 0 12/02/2023 Suspended Comment on above: Take 1 capsule by [facility] as directed for 2 doses. one (1) hour prior to exam. Take 1 capsule by [facility] as directed for 1 dose. one (1) hour prior to exam. docusate sodium 100 mg oral capsule (3 sources) End: 11-27-2022 docusate sodium (STOOL SOFTENER) 100 mg capsule Take 100 mg by mouth as needed for constipation. 0 11/27/2022 Discontinued (Course of therapy completed) Comment on above: Take 100 mg by mouth as needed for constipation. docusate sodium 50 mg / sennosides, intermediate 8.6 mg oral tablet (20 sources) Start: 07-15-2022 End: 09-19-2022 Start: 07-15-2022 End: 09-19-2022 Sennosides-Docusate Sodium ( Senokot-S) 8.6-50 mg tablet Discontinued 1 NMA PO .COMPLEX 30 0 August 19, 2022 3:55pm September 19, 2022 9:55am Slow transit constipation Slow transit constipation constipation 1 tab-cap orally 1-2 times daily as needed; Start: 04-15-2022 End: 06-11-2022 Start: 04-15-2022 End: 06-11-2022 Sennosides-Docusate Sodium ( Senokot-S) 8.6-50 mg tablet Discontinued 1 NMA PO .COMPLEX 30 0 April 15, 2022 12:00am June 11, 2022 11:04am Slow transit constipation Slow transit constipation constipation 1 tab-cap orally 1-2 times daily as needed; Start: 03-28-2022 Senokot S Dose = 2 tab(s), Oral, BID, Take until first bowel movement, then as needed, 0 Refill(s) Start Date: 03/28/22 Status: Ordered doxazosin 4 mg oral tablet (20 sources) alpha-Adrenergic Ricarda Start: 02-04-2023 End: 11-05-2025 Start: 06-19-2022 End: 02-07-2023 Start: 04-07-2022 End: 11-27-2022 Comment on above: Take 1 mg by mouth d aily at bedtime. Take 2 mg by mouth d aily at bedtime. Take 1 tablet by hafsa daily at bedtime. doxycycline monohydrate 100 mg oral capsule (20 sources) Tetracycline-class Drug Start: 03-28-2022 End: 04-10-2022 Start: 02-26-2022 End: 03-05-2022 take 1 tablet by mouth twice daily doxycycline monohydrate 100 mg tablet Take 1 tablet by mouth twice daily for 7 days. 14 tablet 0 02/26/2022 03/05/2022 Active Comment on above: Take 1 tablet by hafsa twice daily for 7 days. Fiber (20 sources) Start: 06-11-2022 End: 06-19-2022 Fiber tablet,chewable Discontinued {tbl} PO June 11, 2022 12:00am June 19, 2022 12:48pm Start: 06-11-2022 End: 06-19-2022 Fiber Discontinued TABLET PO June 10, 2022 11:00pm June 19, 2022 11:48am Start: 06-11-2022 End: 06-19-2022 Fiber Discontinued TABLET PO June 11, 2022 12:00am June 19, 2022 12:48pm Finerenone (20 sources) Start: 11-16-2024 End: 12-09-2024 Start: 11-16-2024 End: 12-09-2024 take 1 tablet by mouth once daily Finerenone (Kerendia) 10 mg tablet Discontinued 10 mg PO DAILY November 16, 2024 1:00am December 09, 2024 10:33am On Hold: Resume on 11/25/24. Can resume next week if repeat labs show stable potassium level. Start: 11-16-2024 take 1 tablet by hafsa th once daily Finerenone (Kerendia) 10 mg tablet Active 10 mg PO DAILY November 16, 2024 1:00am On Hold: Resume on 11/25/24. Can resume next week if repeat labs show stable potassium level. Start: 12-01-2022 End: 02-07-2023 take 1 tablet by mouth once daily Finerenone (Kerendia) 10 mg Tablet Discontinued 10 mg PO DAILY December 01, 2022 1:00am February 07, 2023 8:40am kidneys Start: 12-01-2022 End: 02-07-2023 Start: 12-01-2022 End: 02-07-2023 take 1 tablet by mouth once daily Finerenone (Kerendia) 10 mg Tablet Discontinued 10 mg PO DAILY December 01, 2022 1:00am February 07, 2023 8:40am Start: 12-01-2022 End: 02-07-2023 take 1 tablet by mouth once daily Finerenone (Kerendia) 10 mg Tablet Discontinued 10 MG PO DAILY December 01, 2022 12:00am February 07, 2023 7:40am Start: 12-01-2022 End: 02-07-2023 take 1 tablet by mouth once daily Finerenone (Kerendia) 10 mg Tablet Discontinued 10 MG PO DAILY December 01, 2022 1:00am February 07, 2023 8:40am Start: 12-01-2022 take 1 tablet by hafsa th once daily Finerenone (Kerendia) 10 mg Tablet Active 10 MG PO DAILY December 01, 2022 12:00am Start: 10-28-2022 take 1 mg by mouth once daily Finerenone (Kerendia) 10 mg tablet Active MG PO DAILY October 28, 2022 12:00am finerenone (KERENDIA) 10 mg tablet (20 sources) Start: 02-05-2023 End: 02-07-2025 finerenone (KERENDIA) 10 mg tablet q 24 HR. 02/05/2023 02/07/2025 Discontinued (Discontinued by another Health Care Provider) Start: 02-05-2023 finerenone (KE RENDIA) 10 mg tablet q 24 HR. 02/05/2023 Active Start: 02-05-2023 finerenone (KE RENDIA) 10 mg tablet q 24 HR. 0 02/05/2023 Suspended Start: 02-05-2023 finerenone (KE RENDIA) 10 mg tablet q 24 HR. 0 02/05/2023 Active End: 02-04-2023 take 1 tablet by mouth once daily finerenone (KERENDIA) 10 mg tablet Take 10 mg by mouth once daily. 0 02/04/2023 Discontinued take 1 tablet by hafsa th once daily finerenone (KERENDIA) 10 mg tablet Take 10 mg by mouth once daily. 0 Suspended take 1 tablet by hafsa th once daily finerenone (KERENDIA) 10 mg tablet Take 10 mg by mouth once daily. 0 Active Comment on above: Take 10 mg by mouth once daily. q 24 HR. folic acid 0.4 mg / vitamin b12 0.5 mg oral tablet (20 sources) Vitamin B12 Start: 03-19-2022 End: 06-19-2022 Start: 03-19-2022 End: 06-19-2022 Vitamin P68-Dllsz Acid 500-4 00 mcg tablet Discontinued 1 {tbl} PO DAILY March 19, 2022 12:00am June 19, 2022 2:54pm supplement Start: 03-19-2022 End: 06-19-2022 take 1 tablet by mouth once daily Vitamin U56-Qnfte Acid Discontinued 1 TABLET PO DAILY March 18, 2022 11:00pm June 19, 2022 1:54pm furosemide 40 mg oral tablet (20 sources) Loop Diuretic Start: 02-22-2025 End: 06-03-2025 Start: 01-04-2025 End: 01-10-2026 take 1 tablet by mouth once daily furosemide (LASIX) 20 mg tablet Indications: Chronic diastolic congestive heart failure (HCC) Take 1 tablet by mouth once daily. 90 tablet 3 01/10/2025 01/10/2026 Active Start: 03-05-2024 End: 01-04-2025 take 0.5 tablet by mouth once daily furosemide (LASIX) 20 mg tablet Take 0.5 tablets by mouth once daily. 93 tablet 3 03/05/2024 01/04/2025 Discontinued Start: 02-27-2024 End: 03-05-2024 furosemide (LASIX) 20 mg tab let Take 40 mg for 3 days then take 20 mg daily 93 tablet 3 02/27/2024 03/05/2024 Discontinued Start: 02-14-2018 End: 03-19-2022 Start: 09-08-2017 End: 03-19-2022 take 1 tablet by mouth twice daily Furosemide 40 MG tablet Discontinued 40 mg PO TWICE A DAY August 13, 2020 9:14am March 19, 2022 12:51pm water pill glimepiride 2 mg oral tablet (20 sources) Sulfonylurea Start: 02-05-2024 take 1 tablet by mouth once daily at breakfast glimepiride (AMARYL) 1 mg tablet Take 1 tablet by mouth daily with breakfast. 02/05/2024 Active Start: 06-19-2022 End: 05-20-2025 Start: 06-19-2022 End: 11-24-2024 Start: 03-12-2022 glimepiride 2 mg oral tablet Dose : 2 mg = 1 tab(s), Oral, qDay, # 30 tab(s), 0 Refill(s) Start Date: 03/12/22 Status: Ordered Start: 09-05-2020 End: 02-05-2024 take 0.5 tablet by mouth once daily at breakfast glimepiride (AMARYL) 2 mg tablet Take 0.5 tablets by mouth daily with breakfast. 30 tablet 1 03/11/2023 02/05/2024 Discontinued (Changing Therapy/Dosage Form) Start: 02-14-2018 End: 06-19-2022 Start: 02-14-2018 End: 06-19-2022 take 2 tablets by mouth once daily Glimepiride 1 MG tablet Discontinued 2 mg PO DAILY February 14, 2018 12:00am June 19, 2022 2:49pm blood sugar Start: 02-14-2018 End: 06-19-2022 take 2 mg by mouth once daily Glimepiride Discontinued 2 MG PO DAILY February 13, 2018 11:00pm June 19, 2022 1:49pm Comment on above: Take 0.5 tablets by mouth daily with breakfast. Take 1 tablet by hafsa th daily with breakfast. hydrALAZINE hydrochloride 50 mg oral tablet (20 sources) Arteriolar Vasodilator Start: 02-16-2018 End: 11-27-2022 Start: 02-14-2018 End: 02-16-2018 Start: 06-17-2017 hydrALAZINE (A PRESOLINE) 25 MG tablet 50 mg 3 times daily 0 06/17/2017 Active Comment on above: Take 50 mg by mouth three times daily. hydroCHLOROthiazide 12.5 mg oral capsule (20 sources) Thiazide Diuretic Start: 04-07-2022 End: 08-19-2022 End: 11-27-2022 take 1 tablet by mouth once daily hydroCHLOROthiazide (HYDRODIURIL, ESIDRIX) 12.5 mg tablet Take 12.5 mg by mouth once daily. 0 11/27/2022 Discontinued (Course of therapy completed) Comment on above: Take 12.5 mg by mout h once daily. indapamide 2.5 mg oral table t (20 sources) Thiazide-like Diuretic Start: 02-04-2023 End: 04-21-2023 Start: 01-10-2023 End: 02-04-2023 take 1 tablet by mouth once daily indapamide (LOZOL) 1.25 mg tablet Take 1 tablet by mouth once daily. 90 tablet 1 01/10/2023 02/04/2023 Discontinued Comment on above: Take 1 tablet by hafsa th once daily. inulin 2000 mg chewable tabl et (20 sources) Start: 12-01-2022 End: 04-21-2023 Start: 06-19-2022 take 2 g by mouth once daily I nulin Active 2 GM PO DAILY June 18, 2022 11:00pm Comment on above: Take by mouth. 2 ana ws twice a day iv contrast (will be provided with radiology test) (16 sources) Start: 05-30-2022 End: 11-27-2022 iv contrast (will be provided with radiology test) MRI Cardiac w/Qflow Inject, intravenously, once for 1 dose. No IV access, insert saline lock prior to the beginning of sedation, infusion, injection of imaging exam. Discontinue saline lock post exam. If Pt has a central line or IVAD, may access for administration according to line specific nursing protocol. Once exam is complete flush line and de-access according to line specific nursing protocol in the MR contrast administration guidelines link 1 Each 0 05/30/2022 11/27/2022 Discontinued (Course of therapy completed) Start: 05-30-2022 iv contrast (w ill be provided with radiology test) MRI Cardiac w/Qflow Inject, intravenously, once for 1 dose. No IV access, insert saline lock prior to the beginning of sedation, infusion, injection of imaging exam. Discontinue saline lock post exam. If Pt has a central line or IVAD, may access for administration according to line specific nursing protocol. Once exam is complete flush line and de-access according to line specific nursing protocol in the MR contrast administration guidelines link 1 Each 0 05/30/2022 Active Start: 12-12-2021 End: 05-30-2022 iv contrast (will be provide d with radiology test) Indications: SOB (shortness of breath) , H/O pericarditis , Chest pain, unspecified type , Essential (primary) hypertension , Back pain, unspecified back location, unspecified back pain laterality, unspecified chronicity MRI Cardiac w/Qflow Inject, intravenously, once for 1 dose. No IV access, insert saline lock prior to the beginning of sedation, infusion, injection of imaging exam. Discontinue saline lock post exam. If Pt has a central line or IVAD, may access for administration according to line specific nursing protocol. Once exam is complete flush line and de-access according to line specific nursing protocol in the MR contrast administration guidelines link 1 Each 0 12/12/2021 05/30/2022 Discontinued (Course of therapy completed) Start: 12-12-2021 iv contrast (w ill be provided with radiology test) Indications: SOB (shortness of breath) , H/O pericarditis , Chest pain, unspecified type , Essential (primary) hypertension , Back pain, unspecified back location, unspecified back pain laterality, unspecified chronicity MRI Cardiac w/Qflow Inject, intravenously, once for 1 dose. No IV access, insert saline lock prior to the beginning of sedation, infusion, injection of imaging exam. Discontinue saline lock post exam. If Pt has a central line or IVAD, may access for administration according to line specific nursing protocol. Once exam is complete flush line and de-access according to line specific nursing protocol in the MR contrast administration guidelines link 1 Each 0 12/12/2021 Active Comment on above: MRI Cardiac w/Qflow Inject, intravenously, once for 1 dose. No IV access, insert saline lock prior to the beginning of sedation, infusion, injection of imaging exam. Discontinue saline lock post exam. If Pt has a central line or IVAD, may access for administration according to line specific nursing protocol. Once exam is complete flush line and de-access according to line specific nursing protocol in the MR contrast administration guidelines link ammonium lactate 120 mg/ml topical lotion (20 sources) Start: 10-20-2023 End: 04-16-2024 ammonium lactate (LAC-HYDRIN) 12 % lotion levothyroxine sodium 0.1 mg oral tablet (20 sources) l-Thyroxine Start: 06-28-2024 End: 05-23-2025 Start: 04-22-2024 End: 06-28-2024 Start: 03-12-2022 levothyroxine 125 mcg (0.125 mg) oral tablet Dose : 125 mcg = 1 tab(s), Oral, qDay, # 30 tab(s), 0 Refill(s) Start Date: 03/12/22 Status: Ordered Start: 10-25-2021 End: 04-22-2024 Start: 07-25-2019 take 100 ug by mouth once caity y Levothyroxine Active 100 MCG PO DAILY July 25, 2019 3:25pm Start: 02-16-2018 End: 03-11-2018 Start: 02-14-2018 End: 02-16-2018 take 1 tablet by hafsa th once daily in the morning Levothyroxine Sodium 125 MCG CAPS Take 1 tablet by mouth every morning 0 Active Comment on above: Take 125 mcg by mout h once daily. linaclotide 0.072 mg oral capsule (20 sources) Guanylate Cyclase-C Agonist Start: 11-11-2022 End: 05-17-2025 losartan potassium 100 mg or al tablet (20 sources) Angiotensin 2 Receptor Ricarda Start: 12-03-2022 End: 04-21-2023 Start: 03-12-2022 End: 11-27-2022 Start: 08-13-2020 End: 05-30-2022 losartan (COZAAR) 25 mg tabl et Take by mouth. 0 08/13/2020 05/30/2022 Discontinued (Dosage adjustment) Start: 08-13-2020 take 50 mg by mouth once daily Losartan Active 50 MG PO DAILY August 13, 2020 9:09am take 1 tablet by hafsa th in the morning, then take 0.5 tablet by mouth in the evening losartan (COZAAR) 50 MG tablet Take 50 mg by mouth 1 tablet in the am and 1/2 a tablet in the pm 0 Active take 1 tablet by hafsa th twice daily losartan (COZAAR) 25 MG tablet Take 25 mg by mouth 2 times daily 0 Active take 2 tablets by mo uth once daily losartan (COZAAR) 25 MG tablet Take 50 mg by mouth daily 0 Active take 1 tablet by hafsa th once daily losartan (COZAAR) 25 MG tablet Take 25 mg by mouth daily 0 Active Comment on above: Take by mouth. Take 100 mg by mouth once daily. lovastatin 20 mg oral tablet (20 sources) HMG-CoA Reductase Inhibitor Start: 07-18-2022 End: 11-16-2024 Comment on above: Take 20 mg by mouth daily at bedtime. methenamine hippurate 1000 m g oral tablet (20 sources) Start: 04-12-2025 End: 05-17-2025 metOLazone 2.5 mg oral table t (16 sources) Thiazide-like Diuretic Start: 05-18-2025 End: 06-21-2025 Start: 05-18-2025 take 1 tablet by mouth once Me tolazone 2.5 mg tablet Active 2.5 mg PO ONCE 1 0 May 18, 2025 12:00am metoprolol tartrate 25 mg or al tablet (20 sources) beta-Adrenergic Ricarda Start: 02-25-2018 End: 04-02-2018 metoprolol tartr ate (LOPRESSOR) 25 MG tablet Take 12.5 mg by mouth Takes 1/2 25mg tablet 2xs a day 0 Active nebivolol 10 mg oral tablet (20 sources) Start: 11-27-2022 End: 04-21-2023 Comment on above: Take 1 tablet by hafsa th every evening. 24 hr NIFEdipine 90 mg extended release oral tablet (20 sources) Dihydropyridine Calcium Channel Ricarda Start: 04-07-2022 End: 06-19-2022 Start: 02-27-2021 End: 11-27-2022 take 1 tablet by mouth once daily NIFEdipine (PROCARDIA XL) 90 MG extended release tablet TAKE 1 TABLET BY MOUTH ONCE DAILY 0 02/27/2021 Active Start: 08-13-2020 take 30 mg by mouth at bedtime Nifedipine Active 30 MG PO AT BEDTIME August 13, 2020 9:09am Comment on above: Take 90 mg by mouth once daily. nitrofurantoin, macrocrystal s 25 mg / nitrofurantoin, monohydrate 75 mg oral capsule (20 sources) Nitrofuran Antibacterial Start: 05-23-2025 End: 06-21-2025 Start: 04-27-2023 End: 11-16-2024 Start: 10-28-2022 End: 10-28-2022 Start: 10-28-2022 End: 10-28-2022 take 1 capsule by mouth every twelve hours at mealtime Nitrofurantoin Monohyd/M-Cryst (Macrobid) 100 mg capsule Discontinued 100 mg PO Q12H 10 5 0 October 28, 2022 1:00am November 01, 2022 1:00am October 28, 2022 6:22pm must administer with a meal/food OMEGA-3S/DHA/EPA/FISH OIL (O NATE 3 ORAL) (20 sources) OMEGA-3S/DHA/EPA /FISH OIL (OMEGA 3 ORAL) Take 830 mg by mouth once daily. 0 Suspended OMEGA-3S/DHA/EPA /FISH OIL (OMEGA 3 ORAL) Take 830 mg by mouth once daily. 0 Active OMEGA-3S/DHA/EPA /FISH OIL (OMEGA 3 ORAL) Take 1 tablet by mouth once daily. 0 Active Comment on above: Take 1 tablet by hafsa th once daily. Take 830 mg by mouth once daily. ondansetron 4 mg disintegrat ing oral tablet (20 sources) Serotonin-3 Receptor Antagonist Start: 08-23-2020 End: 06-19-2022 pantoprazole 40 mg delayed r elease oral tablet (20 sources) Proton Pump Inhibitor Start: 03-07-2022 End: 05-12-2025 Start: 11-23-2020 End: 02-24-2022 take 1 tablet by mouth once daily, then take 6 tablets by mouth in the morning pantoprazole DR (PROTONIX) 40 mg tablet Indications: Acute idiopathic pericarditis , Chest pain, unspecified , Primary hypertension Take 1 tablet by mouth DAILY (6 AM). 90 tablet 1 08/28/2021 Active Start: 08-14-2020 End: 04-07-2022 Start: 08-14-2020 End: 04-07-2022 take 2 tablets by mouth once daily Pantoprazole 20 MG tablet,delayed release (DR/EC) Discontinued 40 mg PO DAILY March 28, 2022 3:09pm April 07, 2022 1:04pm Check with primary doctor Start: 08-14-2020 End: 04-07-2022 Comment on above: Take 1 tablet by hafsa th DAILY (6 AM). TAKE 1 TABLET BY HAFSA TH ONCE DAILY AT 6 AM perflutren lipid microspheres (DEFINITY) injection 1.65 mg (1 source) Start: 05-24-2019 End: 05-24-2019 perflutren lipid microspheres (DEFINITY) injection 1.65 mg pravastatin sodium 40 mg oral tablet (20 sources) HMG-CoA Reductase Inhibitor Start: 02-14-2018 End: 02-16-2018 Start: 09-07-2017 End: 03-19-2022 predniSONE 50 mg oral tablet (17 sources) Start: 04-21-2024 End: 06-24-2024 predniSONE (DELTASONE) 50 mg Take one tablet by mouth13 hrs prior to scan, then 7 hrs prior to scan and then 1 hr prior to scan 3 tablet 04/21/2024 06/24/2024 Discontinued (Other) Start: 01-20-2024 End: 01-21-2024 predniSONE (DELTASONE) 50 mg Take 1 tablet by mouth every 6 hours for 3 doses. For prevention of contrast allergy given 13 hrs, 7 hrs and 1 hr prior to exam. 3 tablet 0 01/20/2024 01/21/2024 Active Start: 10-31-2020 predniSONE (DE LTASONE) 10 MG tablet 9 mg 0 10/31/2020 Active psyllium 3400 mg powder for oral suspension (20 sources) Start: 07-15-2024 End: 08-23-2024 Start: 07-15-2024 End: 08-23-2024 Psyllium Husk (Metamucil) 3. 4 gram/5.4 gram powder Discontinued 1 tbsp PO daily 660 0 July 15, 2024 12:00am August 23, 2024 12:22pm mix into at least 8 oz of water or juice before administering regadenoson (LEXISCAN) injection 0.4 mg (1 source) Start: 03-01-2020 End: 03-01-2020 regadenoson (LEXISCAN) injection 0.4 mg rivaroxaban 15 mg oral tablet (20 sources) Factor Xa Inhibitor Start: 03-20-2018 End: 03-19-2022 sulfamethoxazole 800 mg / trimethoprim 160 mg oral tablet (3 sources) Dihydrofolate Reductase Inhibitor Antibacterial, Sulfonamide Antimicrobial Start: 02-05-2023 End: 02-05-2023 take 1 tablet by mouth once daily sulfamethoxazole- trimethoprim (BACTRIM DS) 800-160 mg per tablet Take 1 tablet by mouth once daily for 2 doses. 2 tablet 0 02/05/2023 02/05/2023 Discontinued (Discontinued by another Health Care Provider) Comment on above: Take 1 tablet by hafsa once daily for 2 doses. traMADol hydrochloride 50 mg oral tablet (20 sources) Opioid Agonist Start: 03-28-2022 End: 11-27-2022 Comment on above: Take 50 mg by mouth every 6 hours as needed for pain. Vibegron (20 sources) Start: 02-07-2023 End: 06-21-2025 Start: 02-07-2023 Start: 02-07-2023 take 1 tablet by mouth once da cameron Vibegron 75 mg tablet Active 75 mg PO DAILY February 07, 2023 12:00am Start: 02-07-2023 take 75 mg by mouth once daily Vibegron Active 75 MG PO DAILY February 06, 2023 11:00pm Start: 02-07-2023 take 75 mg by mouth once daily Vibegron Active 75 MG PO DAILY February 07, 2023 12:00am vitamin b12 0.5 mg oral tablet (15 sources) Vitamin B12 End: 11-27-2022 cyanocobalamin (VITAMIN B-12) 500 mcg tablet Take by mouth once daily. 0 11/27/2022 Discontinued (Course of therapy completed) Comment on above: Take by mouth once d aily. Problems Active Problems Problem Classification Problem Date Documented Da te Episodic/Chronic Acute and unspecified renal failure (3 sources) Chronic renal failure Chronic Acute myocardial infarction (20 sources) Myocardial infarction; Translations: [Non-ST elevation (NSTEMI) myocardial infarction] 12-01-2022 Chronic Acute posthemorrhagic anemia (20 sources) Acute posthemorrhagic anemia; Translations: [Acute posthemorrhagic anemia] Episodic Administrative/social admission (4 sources) Persons encountering health services in other specified circumstances; Translations: [Other reasons for seeking consultation] Onset: 06-20-2025 Episodic Allergic reactions (8 sources) Allergy status to other drugs, medicaments and biological substances status; Translations: [Allergy status to narcotic agent status] Onset: 07-01-2018 Episodic Biliary tract disease (7 sources) Biliary calculus; Translations: [Calculus of gallbladder without cholecystitis without obstruction] Onset: 07-26-2025 07-16-2025 Episodic Cardiac dysrhythmias (20 sources) Sick sinus syndrome; Translations: [Paroxysmal atrial fibrillation] Onset: 07-01-2018 07-01-2018 Chronic Cardiac dysrhythmias (20 sources) Palpitations; Translations: [Palpitations] 06-08-2018 Episodic Chronic kidney disease (20 sources) Chronic kidney disease; Translations: [Chronic kidney disease, unspecified] Onset: 03-27-2022 Chronic Chronic kidney disease (1 source) Chronic kidney disease; Translations: [Chronic kidney disease, stage 3b] Onset: 06-21-2025 Chronic obstructive pulmonary disease and bronchiectasis (2 sources) Chronic obstructive lung disease; Translations: [Chronic obstructive pulmonary disease, unspecified] Onset: 02-24-2025 02-24-2025 Chronic Complication of device; implant or graft (20 sources) Prosthetic joint mechanical failure; Translations: [Broken internal joint prosthesis, other site, initial encounter] Episodic Complications of surgical procedures or medical care (6 sources) History of total thyroidectomy; Translations: [Postprocedural hypothyroidism] Chronic Conduction disorders (20 sources) Cardiac pacemaker in situ; Translations: [Presence of cardiac pacemaker] Onset: 06-29-2018 07-01-2018 Chronic Comment on above: She now has a perman ent PM Congestive heart failure; nonhypertensive (20 sources) Heart failure; Translations: [Heart failure, unspecified] Onset: 01-29-2023 Chronic Coronary atherosclerosis and other heart disease (20 sources) Coronary arteriosclerosis; Translations: [Atherosclerotic heart disease of [place] coronary artery without angina pectoris] Onset: 05-11-2024 04-16-2024 Chronic Deficiency and other anemia (20 sources) Anemia; Translations: [Anemia, unspecified] 05-17-2025 Episodic Deficiency and other anemia (14 sources) Iron deficiency anemia; Translations: [Iron deficiency anemia, unspecified] 07-04-2025 Episodic Deficiency and other anemia (1 source) Iron deficiency anemia, unspecified; Translations: [Iron deficiency anemia, unspecified] Onset: 07-27-2025 Episodic Deficiency and other anemia (2 sources) Anemia, unspecified; Translations: [Anemia, unspecified] Onset: 07-04-2025 Episodic Delirium, dementia, and amnestic and other cognitive disorders (1 source) Delirium; Translations: [Delirium due to known physiological condition] Onset: 03-27-2022 Chronic Diabetes mellitus with complications (20 sources) Type 2 diabetes mellitus; Translations: [Type 2 diabetes mellitus with diabetic chronic kidney disease] Onset: 08-24-2020 12-24-2023 Chronic Diabetes mellitus without complication (20 sources) Type 2 diabetes mellitus without complications; Translations: [Type 2 diabetes mellitus without complication] Onset: 06-01-2014 01-27-2019 Chronic Diabetes mellitus without complication (2 sources) Hyperglycemia; Translations: [Hyperglycemia, unspecified] Episodic Disorders of lipid metabolism (20 sources) Hyperlipidemia, unspecified; Translations: [Mixed hyperlipidemia] Onset: 06-01-2014 01-27-2019 Chronic E Codes: Natural/environment (1 source) Dog scratch; Translations: [Other contact with dog, initial encounter] Episodic Essential hypertension (20 sources) Essential (primary) hypertension; Translations: [Benign hypertension] Onset: 06-01-2014 01-27-2019 Chronic Genitourinary symptoms and ill-defined conditions (20 sources) Unspecified urinary incontinence; Translations: [Urinary incontinence, unspecified] Onset: 06-21-2025 10-28-2022 Chronic Genitourinary symptoms and ill-defined conditions (10 sources) Dysuria; Translations: [Dysuria] 10-28-2022 Episodic Glaucoma (2 sources) Glaucoma; Translations: [Unspecified glaucoma] Chronic Heart valve disorders (20 sources) Aortic stenosis, non-rheumatic ; Translations: [Nonrheumatic aortic (valve) stenosis] Onset: 01-29-2023 Chronic Comment on above: Moderately severe pe r echo 01/30/2023 [facility] 02/09/2024 [facility] at [facility] Heart valve disorders (2 sources) Heart murmur; Translations: [Cardiac murmur, unspecified] Episodic Hypertension with complications and secondary hypertension (20 sources) Hypertensive urgency ; Translations: [Hypertensive urgency] 02-07-2023 Chronic Malaise and fatigue (20 sources) Fatigue; Translations: [Other fatigue] Episodic Menopausal disorders (20 sources) Atrophy of vagina; Translations: [Postmenopausal atrophic vaginitis] 05-18-2025 Chronic Nonmalignant breast conditions (20 sources) Mammographic calcification of right breast; Translations: [Mammographic calcification found on diagnostic imaging of breast] 01-16-2023 Episodic Comment on above: This is an 83-year-o ld female who appears to be at average risk for breast cancer, who presents with a BI-RADS 4 mammographic finding of the right breast. Breast exam is unremarkable apart from some mild tenderness in the contralateral breast without any definite physical abnormalities underlying this area. I have recommended to patient that we proceed for stereotactic breast biopsy of the the right breast calcifications in the near future. I have discussed the possible outcomes of the biopsy and the circumstances where additional intervention may be required. Patient does caution me that she has experienced significant delays in the past for anesthesia approval given her complex cardiovascular history. On this note, we will plan to reach out to cardiology especially in light of her recent myocardial infarction and request their recommendations for periprocedure antiplatelet therapy. It would be my preference to limit her antiplatelet action to just 1 baby aspirin if need be. Nonspecific chest pain (20 sources) Chest pain; Translations: [Chest pain, unspecified] Onset: 07-14-2025 Episodic Occlusion or stenosis of precerebral arteries (2 sources) Occlusion and stenosis of bilateral carotid arteries; Translations: [Occlusion and stenosis of bilateral carotid arteries] Onset: 07-01-2018 Chronic Osteoarthritis (20 sources) Osteoarthritis of left knee joint; Translations: [Unilateral primary osteoarthritis, left knee] Onset: 10-20-2017 10-20-2017 Chronic Osteoarthritis (20 sources) Osteoarthritis of left knee joint; Translations: [Osteoarthritis of right knee joint] Onset: 10-20-2017 10-20-2017 Osteoporosis (20 sources) Osteoporosis; Translations: [Age-related osteoporosis without current pathological fracture] Onset: 04-12-2025 04-12-2025 Chronic Other aftercare (3 sources) Encounter for follow-up examination after completed treatment for conditions other than malignant neoplasm; Translations: [Other follow-up examination] Episodic Other aftercare (13 sources) Long-term current use of anticoagulant; Translations: [half-way (current) use of anticoagulants] Onset: 09-15-2023 09-15-2023 Episodic Other aftercare (10 sources) Post-discharge follow-up; Translations: [Encounter for follow-up examination after completed treatment for conditions other than malignant neoplasm] 12-09-2024 Episodic Other and ill-defined heart disease (20 sources) Left ventricular hypertrophy; Translations: [Cardiomegaly] 06-18-2022 Chronic Other and ill-defined heart disease (3 sources) Cardiomegaly; Translations: [Cardiomegaly] Chronic Other and ill-defined heart disease (13 sources) Diastolic dysfunction; Translations: [Other ill-defined heart diseases] 06-16-2025 Chronic Other bone disease and musculoskeletal deformities (14 sources) Osteopenia; Translations: [Other specified disorders of bone density and structure, unspecified site] 08-23-2024 Episodic Other circulatory disease (2 sources) Carotid bruit; Translations: [Other specified symptoms and signs involving the circulatory and respiratory systems] Episodic Other circulatory disease (1 source) Other specified symptoms and signs involving the circulatory and respiratory systems; Translations: [Other symptoms involving cardiovascular system] Episodic Other circulatory disease (2 sources) H/O: hypertension; Translations: [Personal history of other diseases of the circulatory system] 12-01-2022 Episodic Other connective tissue disease (20 sources) History of total knee arthroplasty; Translations: [Presence of left artificial knee joint] Onset: 12-30-2018 12-30-2018 Chronic Comment on above: 03/26/2022 at [facility] by Dr. Georgi Rodrigez. Other connective tissue disease (4 sources) Presence of unspecified artificial knee joint; Translations: [Knee joint replacement] Onset: 02-27-2022 Chronic Other connective tissue disease (12 sources) Presence of left artificial knee joint; Translations: [Knee joint replacement] Chronic Other connective tissue disease (3 sources) Pain of right calf; Translations: [Pain in right lower leg] 02-07-2025 Episodic Other connective tissue disease (19 sources) Synovial cyst of right popliteal space; Translations: [Synovial cyst of popliteal space (Ribeiro), right knee] Onset: 06-26-2018 06-26-2018 Other diseases of bladder and urethra (20 sources) Overactive bladder; Translations: [Overactive bladder] 05-18-2025 Chronic Other diseases of kidney and ureters (1 source) Disorder of kidney and ureter, unspecified; Translations: [Disorder of kidney and ureter, unspecified] Onset: 07-23-2025 Episodic Other gastrointestinal disorders (10 sources) Slow transit constipation; Translations: [Slow transit constipation] Episodic Other gastrointestinal disorders (20 sources) Altered bowel function; Translations: [Change in bowel habit] 08-23-2024 Episodic Other gastrointestinal disorders (20 sources) Change in stool consistency; Translations: [Other fecal abnormalities] 12-17-2024 Episodic Other gastrointestinal disorders (20 sources) Constipation; Translations: [Constipation, unspecified] 05-18-2025 Episodic Other hematologic conditions (6 sources) Raised cardiac enzyme or marker; Translations: [Other specified abnormalities of plasma proteins] 12-01-2022 Episodic Other hematologic conditions (7 sources) Other specified abnormalities of plasma proteins; Translations: [Other abnormal blood chemistry] 12-01-2022 Episodic Other injuries and conditions due to external causes (4 sources) Other injury of unspecified body region, initial encounter; Translations: [Contusion of unspecified site] Episodic Other injuries and conditions due to external causes (1 source) Contusion; Translations: [Other injury of unspecified body region, initial encounter] 05-28-2024 Episodic Other liver diseases (20 sources) Cardiac enzymes abnormal; Translations: [Abnormal levels of other serum enzymes] 06-18-2022 Episodic Other lower respiratory disease (20 sources) Dyspnea; Translations: [Shortness of breath] Onset: 03-21-2020 03-21-2020 Episodic Other lower respiratory disease (20 sources) Hemoptysis; Translations: [Hemoptysis] 06-18-2022 Episodic Other lower respiratory disease (2 sources) Dyspnea on exertion; Translations: [Other forms of dyspnea] 05-11-2024 Episodic Other lower respiratory disease (1 source) Shortness of breath; Translations: [Shortness of breath] Onset: 06-01-2025 Episodic Other nervous system disorders (1 source) Chronic pain; Translations: [Other chronic pain] 02-24-2025 Chronic Other nervous system disorders (1 source) Other chronic pain; Translations: [Other chronic pain] Onset: 02-24-2025 Chronic Other nutritional; endocrine; and metabolic disorders (20 sources) Obesity; Translations: [Obesity, unspecified] 08-13-2020 Chronic Other nutritional; endocrine; and metabolic disorders (20 sources) Hypophosphatemia; Translations: [Other disorders of phosphorus metabolism] 04-16-2022 Chronic Other nutritional; endocrine; and metabolic disorders (10 sources) Obesity, unspecified; Translations: [Obesity, unspecified] Chronic Other nutritional; endocrine; and metabolic disorders (4 sources) Other disorders of phosphorus metabolism; 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] Chronic Other nutritional; endocrine; and metabolic disorders (20 sources) Obese class II; Translations: [Obesity, unspecified] Onset: 11-27-2022 Chronic Other nutritional; endocrine; and metabolic disorders (20 sources) Obese class I; Translations: [Obesity, unspecified] Onset: 12-24-2023 12-24-2023 Chronic Other nutritional; endocrine; and metabolic disorders (20 sources) Body mass index 30+ - obesity; Translations: [Obesity, unspecified] 10-12-2024 Chronic Other screening for suspected conditions (not mental disorders or infectious disease) (20 sources) Patient encounter status; Translations: [Encounter for screening for cardiovascular disorders] Onset: 12-01-2024 Episodic Other skin disorders (20 sources) Subcutaneous nodule; Translations: [Localized swelling, mass and lump, unspecified] 12-09-2024 Episodic Comment on above: LLQ Other upper respiratory disease (5 sources) Bleeding from nose; Translations: [Epistaxis] Episodic Other upper respiratory disease (20 sources) Epistaxis; Translations: [Recurrent epistaxis] 07-26-2019 Episodic Mary-; endo-; and myocarditis; cardiomyopathy (except that caused by tuberculosis or sexually transmitted disease) (1 source) Cardiomyopathy; Translations: [Cardiomyopathy, unspecified] Chronic Mary-; endo-; and myocarditis; cardiomyopathy (except that caused by tuberculosis or sexually transmitted disease) (20 sources) Acute idiopathic pericarditis; Translations: [Acute nonspecific idiopathic pericarditis] Onset: 08-23-2020 Resolved: 09-01-2020 09-05-2020 Episodic Comment on above: While on Xarelto. Xa relto was stopped and she was on Prednisone + Colchicine for 13 months and now is only on Colchicine. Peripheral and visceral atherosclerosis (20 sources) Stenosis of left renal artery; Translations: [Atherosclerosis of renal artery] Onset: 01-29-2023 Chronic Pulmonary heart disease (20 sources) Pulmonary arterial hypertension; Translations: [Secondary pulmonary arterial hypertension] Onset: 06-21-2025 06-18-2022 Chronic Rehabilitation care; fitting of prostheses; and adjustment of devices (1 source) Encounter for fitting and adjustment of other specified devices; Translations: [Encounter for fitting and adjustment of other specified devices] Onset: 06-27-2025 Chronic Residual codes; unclassified (20 sources) Obstructive sleep apnea syndrome; Translations: [Obstructive sleep apnea (adult) (pediatric)] 05-20-2022 Chronic Residual codes; unclassified (2 sources) Hypersomnia; Translations: [Hypersomnia, unspecified] Chronic Residual codes; unclassified (20 sources) Obstructive sleep apnea (adult) (pediatric); Translations: [Obstructive sleep apnea (adult)(pediatric)] Chronic Residual codes; unclassified (1 source) Hypersomnia, unspecified; Translations: [Hypersomnia, unspecified] Chronic Residual codes; unclassified (4 sources) Localized edema; Translations: [Localized edema] 02-07-2025 Episodic Residual codes; unclassified (20 sources) Bilateral lower limb edema; Translations: [Localized edema] 02-22-2025 Episodic Spondylosis; intervertebral disc disorders; other back problems (20 sources) Backache; Translations: [Dorsalgia, unspecified] Episodic Superficial injury; contusion (20 sources) Contusion of right lower leg, initial encounter; Translations: [Contusion of right lower extremity] 02-22-2025 Episodic Syncope (20 sources) Near syncope; Translations: [Syncope and collapse] 11-21-2023 Episodic Thyroid disorders (20 sources) Hypothyroidism, unspecified; Translations: [Hyperthyroidism] Onset: 07-01-2018 Chronic Comment on above: Had a thyroidectomy in 2009 for a malignancy. 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] Onset: 07-01-2018 Unclassified (20 sources) Acute tear of meniscus of left knee; Translations: [Acute meniscal tear of left knee] Onset: 05-25-2018 05-25-2018 Unclassified (1 source) Patient encounter status; Translations: [Encounter for screening mammogram for malignant neoplasm of breast] Unclassified (17 sources) Altered bowel habits; Translations: [R19.4 - Change in bowel habit] Unclassified (1 source) Permanent atrial fibrillation; Translations: [Permanent atrial fibrillation (HCC)] Onset: 02-24-2025 Urinary tract infections (20 sources) Urinary tract infection, site not specified; Translations: [Urinary tract infection, site not specified] Onset: 05-17-2025 04-21-2023 Episodic Past or Other Problems Problem Classification Problem Date Documented Da te Episodic/Chronic Acute and unspecified renal failure (20 sources) Acute renal failure syndrome; Translations: [Acute kidney failure, unspecified] Onset: 08-24-2020 Resolved: 09-01-2020 09-01-2020 Episodic Fluid and electrolyte disorders (20 sources) Hyponatremia; Translations: [Hypo-osmolality and hyponatremia] Onset: 08-24-2020 09-01-2020 Episodic Intestinal infection (20 sources) Typhoid fever; Translations: [Typhoid fever, unspecified] Onset: 08-25-2020 08-25-2020 Episodic Joint disorders and dislocations; trauma-related (5 sources) Acute tear of meniscus of left knee; Translations: [Unspecified tear of unspecified meniscus, current injury, left knee, initial encounter] Onset: 05-25-2018 05-25-2018 Episodic Other aftercare (5 sources) 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; Translations: [Long-term current use of anticoagulant] Onset: 07-01-2018 02-24-2025 Episodic Other aftercare (20 sources) Drug therapy finding; Translations: [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] Onset: 09-15-2023 12-24-2023 Episodic Other circulatory disease (20 sources) History of pericarditis; Translations: [Personal history of other diseases of the circulatory system] Onset: 09-15-2023 Episodic Other circulatory disease (3 sources) Personal history of other diseases of the circulatory system; Translations: [Personal history of other diseases of circulatory system] Onset: 09-15-2023 12-01-2022 Episodic Other connective tissue disease (7 sources) Synovial cyst of right popliteal space; Translations: [Synovial cyst of popliteal space [Ribeiro], right knee] Onset: 06-26-2018 06-26-2018 Episodic Other connective tissue disease (1 source) Pain in right lower leg; Translations: [Right calf pain] Onset: 02-07-2025 Episodic Other gastrointestinal disorders (1 source) Diarrhea, unspecified; Translations: [Diarrhea, unspecified] Onset: 02-25-2025 Episodic Other gastrointestinal disorders (1 source) Other fecal abnormalities; Translations: [Other fecal abnormalities] Onset: 01-24-2025 Episodic Other liver diseases (20 sources) Disease of liver; Translations: [Liver disease, unspecified] Onset: 08-24-2020 Resolved: 09-01-2020 09-01-2020 Chronic Other lower respiratory disease (1 source) Other forms of dyspnea; Translations: [MCGOVERN (dyspnea on exertion)] Onset: 09-15-2023 Episodic Other skin disorders (1 source) Localized swelling, mass and lump, trunk; Translations: [Localized swelling, mass and lump, trunk] Onset: 12-25-2024 Episodic Residual codes; unclassified (2 sources) Localized edema; Translations: [Localized edema] Onset: 02-07-2025 Episodic Residual codes; unclassified (1 source) Asymptomatic menopausal state; Translations: [Asymptomatic menopausal state] Onset: 11-09-2024 Episodic Results Test Name Value Interpretation Reference Range Facility SCRN MAMM (CAD)W/RAFA BILATo n 08-03-2025 SCRN MAMM (CAD)W/RAFA BILAT Normal [facility] Ferritinon 07-21-2025 Ferritin [Mass/Vol] 232 ng/mL Normal 22-378 [facility] Comment on above: Performed By: #### L 503.6550, L503.6030 ####[facility] [address] [place], [place], [id number] Iron measurement (mass/mass) Ordered By: Ros Nice on 07-21-2025 Iron (Unsp spec) [Mass/Mass] 373 ug/dL High 50-[address] [facility] Iron+Iron Binding Capacityon 07-21-2025 TIBC 485 ug/dL High 250-[address] [facility] Comment on above: Performed By: #### L 503.6550, L503.6030 ####[facility] [address] [place], [place], [id number] No Panel InformationOrdered By: Ros Nice on 07-21-2025 112 ug/dL Low 228-[address] [facility] Serum or plasma ferritin pedro surement (mass/volume)Ordered By: Ros Nice on 07-21-2025 Ferritin [Mass/Vol] 232 ng/mL 22-378 [facility] Serum or plasma iron saturat ion measurement (mass fraction)Ordered By: Ros Nice on 07-21-2025 Iron saturation [Mass fraction] 76.9 % High 13-[address] [facility] Hepatobilliary Img w/Pharm I nton 07-19-2025 Hepatobilliary Img w/Pharm Int Normal [facility] Anion gap in Serum or Plasma Ordered By: Ros Nice on 07-13-2025 Anion gap [Moles/Vol] 11 mmol/L 02-10 [facility] BUN/creatinine ratioOrdered By: Ros Nice on 07-13-2025 Urea nitrogen/Creatinine [Mass ratio] 30.2 mg/mg High 07-[address] [facility] Carbon dioxide, total [Moles /volume] in Central venous bloodOrdered By: Ros Nice on 07-13-2025 CO2 [Moles/Vol] 22.4 mmol/L 21.0-32.[address] [facility] Chloride assayOrdered By: Markos Nice on 07-13-2025 Chloride [Moles/Vol] 104 mmol/L 98-108 [facility] Glomerular filtration rate ( GFR) estimation/1.73 sq m using serum, plasma, or whole bOrdered By: Ros Nice on 07-13-2025 GFR/1.73 sq M.predicted among non-blacks MDRD (S/P/Bld) [Vol rate/Area] 27 mL/min/{1.73_m2} Low >[address] [facility] Potassium measurement (mass/ volume)Ordered By: Ros Nice on 07-13-2025 Potassium (Unsp spec) [Mass/Vol] 4.1 mmol/L 3.3-5.[address] [facility] Renal Profileon 07-13-2025 Albumin [Mass/Vol] 4.2 g/dL Normal 3.4-4.8 [facility] Comment on above: Performed By: #### L 500.3600 ####[facility] [address] [place], [address] BUN/CRE 30.2 RATIO High 10-[address] [facility] Comment on above: Performed By: #### L 500.3600 ####[facility] [address] [place], [address] Calcium [Mass/Vol] 10.0 mg/dL Normal 7.6-11.0 [facility] Comment on above: Performed By: #### L 500.3600 ####[facility] [address] [place], [address] Chloride [Moles/Vol] 104 mmol/L Normal 98-108 [facility] Comment on above: Performed By: #### L 500.3600 ####[facility] [address] [place], [address] CO2 [Moles/Vol] 22.4 mmol/L Normal 21.0-32.[address] [facility] Comment on above: Performed By: #### L 500.3600 ####[facility] [address] [place], [address] Creatinine [Mass/Vol] 1.85 mg/dL High 0.70-1.20 [facility] Comment on above: Performed By: #### L 500.3600 ####[facility] [address] [place], [address] GAP 11 Normal 5-[address] [facility] Comment on above: Performed By: #### L 500.3600 ####[facility] [address] [place], [address] GFR/1.73 sq M.predicted among non-blacks MDRD (S/P/Bld) [Vol rate/Area] 27 mL/min/{1.73_m2} Low >[address] [facility] Comment on above: Result Comment: mL/m in/1.73m2 CKD-EPI Creatinine Equation (2020) Performed By: #### L 500.3600 ####[facility] [address] [place], [address] Glucose [Mass/Vol] 156 mg/dL High 70-99 [facility] Comment on above: Performed By: #### L 500.3600 ####[facility] [address] [place], [address] Phosphate [Mass/Vol] 3.3 mg/dL Normal 2.7-4.5 [facility] Comment on above: Performed By: #### L 500.3600 ####[facility] [address] [place], [address] Potassium [Moles/Vol] 4.1 mmol/L Normal 3.3-5.1 [facility] Comment on above: Performed By: #### L 500.3600 ####[facility] [address] [place], [address] Sodium [Moles/Vol] 137 mmol/L Normal 133-145 [facility] Comment on above: Performed By: #### L 500.3600 ####[facility] [address] [place], [place], [phone] Urea nitrogen [Mass/Vol] 56 mg/dL High 01-[address] [facility] Comment on above: Performed By: #### L 500.3600 ####[facility] [address] [place], [place], [id number] Serum creatinine measurement (mass/volume)Ordered By: Ros Nice on 07-13-2025 Creatinine [Mass/Vol] 1.85 mg/dL High 0.70-1.20 [facility] Serum glucose measurement (m ass/volume)Ordered By: Ros Nice on 07-13-2025 Glucose [Mass/Vol] 156 mg/dL High 70-99 [facility] Serum or plasma albumin rema urement (mass/volume)Ordered By: Ros Nice on 07-13-2025 Albumin [Mass/Vol] 4.2 g/dL 3.4-4.8 [facility] Serum or plasma calcium rema urement (mass/volume)Ordered By: Ros Nice on 07-13-2025 Calcium [Mass/Vol] 10.0 mg/dL 7.6-11.0 [facility] Serum or plasma urea nitroge n measurement (mass/volume)Ordered By: Ros Nice on 07-13-2025 Urea nitrogen [Mass/Vol] 56 mg/dL High 01-[address] [facility] Sodium levelOrdered By: Victoria Nice on 07-13-2025 Sodium [Moles/Vol] 137 mmol/L 133-145 [facility] Oncology Visit Reporton 06-29 Oncology Visit Report Normal [facility] Abdomen/Pelvis without Conto n 07-08-2025 Abdomen/Pelvis without Cont Normal [facility] Basic Metabolic Profile (BMP )on 07-08-2025 BUN/CRE 28.8 RATIO High 07-[address] [facility] Comment on above: Performed By: #### L 501.4021, L500.2500, L100.0100 ####[facility] [address] [place], [address] Calcium [Mass/Vol] 10.1 mg/dL Normal 7.6-11.0 [facility] Comment on above: Performed By: #### L 501.4021, L500.2500, L100.0100 ####[facility] [address] [place], [address] Chloride [Moles/Vol] 102 mmol/L Normal 98-108 [facility] Comment on above: Performed By: #### L 501.4021, L500.2500, L100.0100 ####[facility] [address] [place], [address] CO2 [Moles/Vol] 21.5 mmol/L Normal 21.0-32.[address] [facility] Comment on above: Performed By: #### L 501.4021, L500.2500, L100.0100 ####[facility] [address] [place], [address] Creatinine [Mass/Vol] 1.98 mg/dL High 0.70-1.20 [facility] Comment on above: Performed By: #### L 501.4021, L500.2500, L100.0100 ####[facility] [address] [place], [address] GAP 13 Normal 5-[address] [facility] Comment on above: Performed By: #### L 501.4021, L500.2500, L100.0100 ####[facility] [address] [place], [address] GFR/1.73 sq M.predicted among non-blacks MDRD (S/P/Bld) [Vol rate/Area] 24 mL/min/{1.73_m2} Low >[address] [facility] Comment on above: Result Comment: mL/m in/1.73m2 CKD-EPI Creatinine Equation (2020) Performed By: #### L 501.4021, L500.2500, L100.0100 ####[facility] [address] [place], [address] Glucose [Mass/Vol] 156 mg/dL High 70-99 [facility] Comment on above: Performed By: #### L 501.4021, L500.2500, L100.0100 ####[facility] [address] [place], [address] Potassium [Moles/Vol] 4.1 mmol/L Normal 3.3-5.1 [facility] Comment on above: Performed By: #### L 501.4021, L500.2500, L100.0100 ####[facility] [address] [place], [address] Sodium [Moles/Vol] 137 mmol/L Normal 133-145 [facility] Comment on above: Performed By: #### L 501.4021, L500.2500, L100.0100 ####[facility] [address] [place], [address] Urea nitrogen [Mass/Vol] 57 mg/dL High 4-[address] [facility] Comment on above: Performed By: #### L 501.4021, L500.2500, L100.0100 ####[facility] [address] [place], [address] Bilirubin Test strip Ql (U)O rdered By: Herve Melton on 07-08-2025 Bilirubin Ql (U) Negative Negative [facility] Emergency Department Summary on 07-08-2025 Emergency Department Summary Normal [facility] Gallbladderon 07-08-2025 Gallbladder Normal [facility] Internal Medicine Office Vis iton 07-08-2025 Internal Medicine Office Visit Normal [facility] Ketones Test strip Ql (U)Ord ered By: Herve Melton on 07-08-2025 Ketones Ql (U) Negative Negative [facility] L501.4021on 07-08-2025 Trop T High Sen 19 ng/L High <=[address] [facility] Comment on above: Performed By: #### L 501.4021, L500.2500, L100.0100 ####[facility] [address] [place], [address] Lipaseon 07-08-2025 Lipase [Catalytic activity/Vol] 64 U/L Normal 13-[address] [facility] Comment on above: Result Comment: Eduarda dudley note:LIPASE revised reference range effective 23.New Lipase methodology. Expected to produce lower valuesthan the previous assay method.NEW Reference Range: 13 - 75 U/L Performed By: #### L 501.2450, L500.3400 ####[facility] [address] [place], [address] Liver Profileon 07-08-2025 Albumin [Mass/Vol] 4.4 g/dL Normal 3.4-4.8 [facility] Comment on above: Performed By: #### L 501.2450, L500.3400 ####[facility] [address] [place], [address] ALK PHOS 99 U/L Normal 35-[address] [facility] Comment on above: Performed By: #### L 501.2450, L500.3400 ####[facility] [address] [place], [address] ALT [Catalytic activity/Vol] 34 U/L Normal <=[address] [facility] Comment on above: Performed By: #### L 501.2450, L500.3400 ####[facility] [address] [place], [address] AST [Catalytic activity/Vol] 29 U/L Normal <=[address] [facility] Comment on above: Performed By: #### L 501.2450, L500.3400 ####[facility] [address] [place], [address] Bilirubin [Mass/Vol] 0.64 mg/dL Normal 0.00-1.30 [facility] Comment on above: Performed By: #### L 501.2450, L500.3400 ####[facility] [address] [place], [address] Bilirubin.direct [Mass/Vol] 0.36 mg/dL High 0.00-0.[address] [facility] Comment on above: Performed By: #### L 501.2450, L500.3400 ####[facility] [address] [place], [address] Globulin (S) [Mass/Vol] 2.7 g/dL Normal 2.2-4.[address] [facility] Comment on above: Performed By: #### L 501.2450, L500.3400 ####[facility] [address] [place], [address] T PROT 7.1 g/dL Normal 5.9-8.[address] [facility] Comment on above: Performed By: #### L 501.2450, L500.3400 ####[facility] [address] [place], [address] Mucus LM Ql (Urine sed)Order ed By: Herve Melton on 07-08-2025 Mucus Ql (Urine sed) 0 SEEN /hpf [facility] Nitrite Test strip Ql (U)Ord ered By: Herve Melton on 07-08-2025 Nitrite Ql (U) Negative Negative [facility] Protein Test strip Ql (U)Ord ered By: Herve Melton on 07-08-2025 Protein Ql (U) 15 mg/dl High Negative [facility] Squamous epithelial cells de tection in urine sediment by light microscopyOrdered By: Herve Melton on 07-08-2025 Epithelial cells.squamous LM Ql (Urine sed) 0 SEEN /hpf 02-[address] [facility] Troponin T HS 2 HRon 025 Trop T High Sen 18 ng/L High <=[address] [facility] Comment on above: Performed By: #### L 499.0042 ####[facility] [address] [place], [address] Troponin T HS 4 HRon 025 Trop T High Sen Normal <=[address] [facility] Comment on above: Result Comment: Earlene gupta via OM: Ordered Performed By: #### L 499.0043 ####[facility] [address] [place], [address] Troponin T.cardiac [Mass/vol ume] in Serum or Plasma by High sensitivity methodOrdered By: Herve Melton on 07-08-2025 Troponin T.cardiac High sensitivity method [Mass/Vol] 18 ng/L High <[address] [facility] Urinalysis, Completeon 07-08 BACTERIA 0 SEEN Normal None Seen [facility] Comment on above: Order Comment: CLEAN CATCH Performed By: #### L 400.0001 ####[facility] [address] [place], [address] EPI,SQUAMOUS 0 SEEN Normal -[address] [facility] Comment on above: Order Comment: CLEAN CATCH Performed By: #### L 400.0001 ####[facility] [address] [place], [address] Mucus Ql (Urine sed) 0 SEEN Normal [facility] Comment on above: Order Comment: CLEAN CATCH Performed By: #### L 400.0001 ####[facility] [address] [place], [address] RBC 0 SEEN Normal 0-[address] [facility] Comment on above: Order Comment: CLEAN CATCH Performed By: #### L 400.0001 ####[facility] [address] [place], [address] WBC 0 SEEN Normal 0-[address] [facility] Comment on above: Order Comment: CLEAN CATCH Performed By: #### L 400.0001 ####[facility] [address] [place], [address] Urine clarityOrdered By: Rolando Melton on 07-08-2025 Clarity (U) Clear Clear [facility] Urine color determinationOrd ered By: Herve Melton on 07-08-2025 Color (U) Straw Yellow [facility] Urine glucose detectionOrder ed By: Herve Melton on 07-08-2025 Glucose Ql (U) Normal mg/dl Normal [facility] Urine leukocyte esterase det ection by dipstickOrdered By: Herve Melton on 07-08-2025 Leukocyte esterase Test strip Ql (U) Negative Negative [facility] Urine pHOrdered By: Herve borja on 07-08-2025 pH (U) 6.0 [pH] 5.0 - 8.[address] [facility] Urine sediment bacteria coun t by microscopy (number/high power field)Ordered By: Herve Melton on 07-08-2025 Bacteria LM.HPF (Urine sed) [#/Area] 0 /[HPF] None Seen [facility] Urine specific gravity measu rementOrdered By: Herve Melton on 07-08-2025 Specific gravity (U) [Rel density] 1.015 1.002-1.[address] [facility] Urine urobilinogen measureme ntOrdered By: Herve Melton on 07-08-2025 Urobilinogen Ql (U) Normal mg/dl Normal [facility] White blood cell countOrdere d By: Herve Melton on 07-08-2025 White blood cell count 0 SEEN /hpf 0-5 [facility] Absolute lymphocyte countOrd ered By: ED PROVIDER on 07-07-2025 Lymphocytes Auto (Unsp spec) [#/Vol] 0.83 10*3/uL 0.83-4.[address] [facility] Anion gap in Serum or Plasma Ordered By: Herve Melton on 07-07-2025 Anion gap [Moles/Vol] 13 mmol/L 5-15 [facility] Automated lymphocyte count a s percentage of total leukocytesOrdered By: ED PROVIDER on 07-07-2025 Lymphocytes/100 WBC Auto (Unsp spec) 13.0 % Low 19-[address] [facility] BUN/creatinine ratioOrdered By: Herve Melton on 07-07-2025 Urea nitrogen/Creatinine [Mass ratio] 28.8 mg/mg High 10-[address] [facility] Basophil percentageOrdered B y: ED PROVIDER on 07-07-2025 Basophils/100 WBC (Bld) 0.2 % 0-[address] [facility] Bilirubin directOrdered By: Herve Melton on 07-07-2025 Bilirubin.direct [Mass/Vol] 0.36 mg/dL High 0.00-0.[address] [facility] Bilirubin, totalOrdered By: Herve Melton on 07-07-2025 Bilirubin [Mass/Vol] 0.64 mg/dL 0.00-1.30 [facility] CBC W/Diff, Automatedon Absolute Lymph 0.83 X10 3/uL Normal 0.83-4.[address] [facility] Comment on above: Performed By: #### L 501.4021, L500.2500, L100.0100 ####[facility] [address] [place], [address] Absolute Neut 4.9 X10 3/uL Normal 2.0-7.[address] [facility] Comment on above: Performed By: #### L 501.4021, L500.2500, L100.0100 ####[facility] [address] [place], [address] Basophils/100 WBC (Bld) 0.2 % Normal 0-[address] [facility] Comment on above: Performed By: #### L 501.4021, L500.2500, L100.0100 ####[facility] [address] [place], [address] Eosinophils/100 WBC (Bld) 1.1 % Normal 0-[address] [facility] Comment on above: Performed By: #### L 501.4021, L500.2500, L100.0100 ####[facility] [address] [place], [address] Erythrocyte distribution width (RBC) [Ratio] 17.0 % High 11.6-14.[address] [facility] Comment on above: Performed By: #### L 501.4021, L500.2500, L100.0100 ####[facility] [address] [place], [address] Hematocrit (Bld) [Volume fraction] 31.6 % Low 37-[address] [facility] Comment on above: Performed By: #### L 501.4021, L500.2500, L100.0100 ####[facility] [address] [place], [address] Hemoglobin (Bld) [Mass/Vol] 10.0 g/dL Low 12.0-15.[address] [facility] Comment on above: Performed By: #### L 501.4021, L500.2500, L100.0100 ####[facility] [address] [place], [address] IG% 0.500 Normal 0.0-0.[address] [facility] Comment on above: Result Comment: IG% - Immature Granulocytes (promyelocytes, myelocytes andmetamyelocytes) > 1% indicates that a LEFT SHIFT is Present. Performed By: #### L 501.4021, L500.2500, L100.0100 ####[facility] [address] [place], [address] Lymphocytes/100 WBC (Bld) 13.0 % Low 19-[address] [facility] Comment on above: Performed By: #### L 501.4021, L500.2500, L100.0100 ####[facility] [address] [place], [address] MCH (RBC) [Entitic mass] 28.5 pg Normal 27.0-32.[address] [facility] Comment on above: Performed By: #### L 501.4021, L500.2500, L100.0100 ####[facility] [address] [place], [address] MCHC (RBC) [Mass/Vol] 31.6 g/dL Low 32-36 [facility] Comment on above: Performed By: #### L 501.4021, L500.2500, L100.0100 ####[facility] [address] [place], [address] MCV (RBC) [Entitic vol] 90.0 fL Normal 81-[address] [facility] Comment on above: Performed By: #### L 501.4021, L500.2500, L100.0100 ####[facility] [address] [place], [address] Monocytes/100 WBC (Bld) 8.3 % Normal 0-[address] [facility] Comment on above: Performed By: #### L 501.4021, L500.2500, L100.0100 ####[facility] [address] [place], [address] Neutrophils/100 WBC (Bld) 76.9 % High 47-[address] [facility] Comment on above: Performed By: #### L 501.4021, L500.2500, L100.0100 ####[facility] [address] [place], [address] Nucleated RBC (Bld) [#/Vol] 0 10*3/uL Normal 0-[address] [facility] Comment on above: Performed By: #### L 501.4021, L500.2500, L100.0100 ####[facility] [address] [place], [address] Platelet mean volume (Bld) [Entitic vol] 9.8 fL Normal 6.2-12.[address] [facility] Comment on above: Performed By: #### L 501.4021, L500.2500, L100.0100 ####[facility] [address] [place], [address] Platelets (Bld) [#/Vol] 179 10*3/uL Normal 150-[address] [facility] Comment on above: Performed By: #### L 501.4021, L500.2500, L100.0100 ####[facility] [address] [place], [address] RBC (Bld) [#/Vol] 3.51 10*6/uL Low 4.2-5.4 [facility] Comment on above: Performed By: #### L 501.4021, L500.2500, L100.0100 ####[facility] [address] [place], [address] RDW SD 56.0 fl High 35.1-43.[address] [facility] Comment on above: Performed By: #### L 501.4021, L500.2500, L100.0100 ####[facility] [address] [place], [address] WBC (Bld) [#/Vol] 6.4 10*3/uL Normal 4.4-11.0 [facility] Comment on above: Performed By: #### L 501.4021, L500.2500, L100.0100 ####[facility] [address] [place], [address] Carbon dioxide, total [Moles /volume] in Central venous bloodOrdered By: Herve Melton on 07-07-2025 CO2 [Moles/Vol] 21.5 mmol/L 21.0-32.[address] [facility] Chest 1 View (Portable)on Chest 1 View (Portable) Normal [facility] Chloride assayOrdered By: Valery Melton on 07-07-2025 Chloride [Moles/Vol] 102 mmol/L 98-108 [facility] Eosinophil percentageOrdered By: ED PROVIDER on 07-07-2025 Eosinophils/100 WBC (Bld) 1.1 % 0-[address] [facility] Erythrocyte distribution wid th ratioOrdered By: ED PROVIDER on 07-07-2025 Erythrocyte distribution width (RBC) [Ratio] 17.0 % High 11.6-14.[address] [facility] Erythrocyte distribution wid th standard deviationOrdered By: ED PROVIDER on 07-07-2025 Erythrocyte distribution width (RBC) [Ratio] 56.0 fl High 35.1-43.[address] [facility] Glomerular filtration rate ( GFR) estimation/1.73 sq m using serum, plasma, or whole bOrdered By: Herve Melton on 07-07-2025 GFR/1.73 sq M.predicted among non-blacks MDRD (S/P/Bld) [Vol rate/Area] 24 mL/min/{1.73_m2} Low >[address] [facility] Hematocrit Auto (Bld) [Volum e fraction]Ordered By: ED PROVIDER on 07-07-2025 Hematocrit (Bld) [Volume fraction] 31.6 % Low 37-[address] [facility] Hemoglobin measurementOrdere d By: ED PROVIDER on 07-07-2025 Hemoglobin (Bld) [Mass/Vol] 10.0 g/dL Low 12.0-15.[address] [facility] Immature granulocytes/100 WB C Auto (Bld)Ordered By: ED PROVIDER on 07-07-2025 Immature granulocytes/100 WBC (Bld) 0.500 % 0.0-0.[address] [facility] MCV (mean corpuscular volume ) determinationOrdered By: ED PROVIDER on 07-07-2025 MCV (RBC) [Entitic vol] 90.0 fL 81-[address] [facility] Mean corpuscular hemoglobin (MCH) determinationOrdered By: ED PROVIDER on 07-07-2025 MCH (RBC) [Entitic mass] 28.5 pg 27.0-32.[address] [facility] Monocyte percentageOrdered B y: ED PROVIDER on 07-07-2025 Monocytes/100 WBC (Bld) 8.3 % 0-[address] [facility] Neutrophil percentageOrdered By: ED PROVIDER on 07-07-2025 Neutrophils/100 WBC (Bld) 76.9 % High 47-[address] [facility] No Panel InformationOrdered By: Herve Melton on 07-07-2025 29 U/L <[address] [facility] Platelet countOrdered By: ED PROVIDER on 07-07-2025 Platelets (Bld) [#/Vol] 179 10*3/uL 150-[address] [facility] Potassium measurement (mass/ volume)Ordered By: Herve Melton on 07-07-2025 Potassium (Unsp spec) [Mass/Vol] 4.1 mmol/L 3.3-5.[address] [facility] RBC Auto (Bld) [#/Vol]Ordere d By: ED PROVIDER on 07-07-2025 RBC (Bld) [#/Vol] 3.51 10*6/uL Low 4.2-5.4 [facility] Serum creatinine measurement (mass/volume)Ordered By: Herve Melton on 07-07-2025 Creatinine [Mass/Vol] 1.98 mg/dL High 0.70-1.20 [facility] Serum globulin measurementOr dered By: Herve Melton on 07-07-2025 Globulin (S) [Mass/Vol] 2.7 g/dL 2.2-4.[address] [facility] Serum glucose measurement (m ass/volume)Ordered By: Herve Melton on 07-07-2025 Glucose [Mass/Vol] 156 mg/dL High 70-99 [facility] Serum or plasma alanine riojas otransferase (ALT) measurementOrdered By: Herve Melton on 07-07-2025 ALT [Catalytic activity/Vol] 34 U/L <[address] [facility] Serum or plasma albumin rema urement (mass/volume)Ordered By: Herve Melton on 07-07-2025 Albumin [Mass/Vol] 4.4 g/dL 3.4-4.8 [facility] Serum or plasma alkaline mayra sphatase measurementOrdered By: Herve Melton on 07-07-2025 ALP [Catalytic activity/Vol] 99 U/L 35-[address] [facility] Serum or plasma calcium rema urement (mass/volume)Ordered By: Herve Melton on 07-07-2025 Calcium [Mass/Vol] 10.1 mg/dL 7.6-11.0 [facility] Serum or plasma urea nitroge n measurement (mass/volume)Ordered By: Herve Melton on 07-07-2025 Urea nitrogen [Mass/Vol] 57 mg/dL High 4-[address] [facility] Sodium levelOrdered By: Eleuterio Melton on 07-07-2025 Sodium [Moles/Vol] 137 mmol/L 133-145 [facility] Total proteinOrdered By: Rolando Melton on 07-07-2025 Protein [Mass/Vol] 7.1 g/dL 5.9-8.4 [facility] Troponin T.cardiac [Mass/vol ume] in Serum or Plasma by High sensitivity methodOrdered By: Herve Melton on 07-07-2025 Troponin T.cardiac High sensitivity method [Mass/Vol] 19 ng/L High <[address] [facility] White blood cell (WBC) count Ordered By: ED PROVIDER on 07-07-2025 WBC (Bld) [#/Vol] 6.4 10*3/uL 4.4-11.0 [facility] Absolute lymphocyte countOrd ered By: [facility] Avitia on 07-04-2025 Lymphocytes Auto (Unsp spec) [#/Vol] 0.97 10*3/uL 0.83-4.[address] [facility] Anion gap in Serum or Plasma Ordered By: Berry Avitia on 07-04-2025 Anion gap [Moles/Vol] 12 mmol/L 5-15 [facility] Automated lymphocyte count a s percentage of total leukocytesOrdered By: Berry Avitia on 07-04-2025 Lymphocytes/100 WBC Auto (Unsp spec) 21.6 % 19-[address] [facility] BUN/creatinine ratioOrdered By: Berry Avitia on 07-04-2025 Urea nitrogen/Creatinine [Mass ratio] 26.3 mg/mg High 10- [facility] Basic Metabolic Profile (BMP )on 07-04-2025 BUN/CRE 26.3 RATIO High 07-[address] [facility] Comment on above: Performed By: #### L 500.2500, L503.6030, L503.6550, L100.0100, L100.9950 ####[facility] [address] [place], [address] Calcium [Mass/Vol] 9.9 mg/dL Normal 7.6-11.0 [facility] Comment on above: Performed By: #### L 500.2500, L503.6030, L503.6550, L100.0100, L100.9950 ####[facility] [address] [place], [address] Chloride [Moles/Vol] 104 mmol/L Normal 98-108 [facility] Comment on above: Performed By: #### L 500.2500, L503.6030, L503.6550, L100.0100, L100.9950 ####[facility] [address] [place], [address] CO2 [Moles/Vol] 22.0 mmol/L Normal 21.0-32.[address] [facility] Comment on above: Performed By: #### L 500.2500, L503.6030, L503.6550, L100.0100, L100.9950 ####[facility] [address] [place], [address] Creatinine [Mass/Vol] 2.09 mg/dL High 0.70-1.20 [facility] Comment on above: Performed By: #### L 500.2500, L503.6030, L503.6550, L100.0100, L100.9950 ####[facility] [address] [place], [address] GAP 12 Normal 5-[address] [facility] Comment on above: Performed By: #### L 500.2500, L503.6030, L503.6550, L100.0100, L100.9950 ####[facility] [address] [place], [address] GFR/1.73 sq M.predicted among non-blacks MDRD (S/P/Bld) [Vol rate/Area] 23 mL/min/{1.73_m2} Low >[address] [facility] Comment on above: Result Comment: mL/m in/1.73m2 CKD-EPI Creatinine Equation (2020) Performed By: #### L 500.2500, L503.6030, L503.6550, L100.0100, L100.9950 ####[facility] [address] [place], [address] Glucose [Mass/Vol] 159 mg/dL High 70-99 [facility] Comment on above: Performed By: #### L 500.2500, L503.6030, L503.6550, L100.0100, L100.9950 ####[facility] [address] [place], [address] Potassium [Moles/Vol] 4.3 mmol/L Normal 3.3-5.1 [facility] Comment on above: Performed By: #### L 500.2500, L503.6030, L503.6550, L100.0100, L100.9950 ####[facility] [address] [place], [address] Sodium [Moles/Vol] 138 mmol/L Normal 133-145 [facility] Comment on above: Performed By: #### L 500.2500, L503.6030, L503.6550, L100.0100, L100.9950 ####[facility] [address] [place], [address] Urea nitrogen [Mass/Vol] 55 mg/dL High 4-[address] [facility] Comment on above: Performed By: #### L 500.2500, L503.6030, L503.6550, L100.0100, L100.9950 ####[facility] [address] [place], [address] Basophil percentageOrdered B y: Berry Adore on 07-04-2025 Basophils/100 WBC (Bld) 0.2 % 0-[address] [facility] CBC W/Diff, Automatedon -0 Absolute Lymph 0.97 X10 3/uL Normal 0.83-4.[address] [facility] Comment on above: Performed By: #### L 500.2500, L503.6030, L503.6550, L100.0100, L100.9950 ####[facility] [address] [place], [address] Absolute Neut 3.0 X10 3/uL Normal 2.0-7.[address] [facility] Comment on above: Performed By: #### L 500.2500, L503.6030, L503.6550, L100.0100, L100.9950 ####[facility] [address] [place], [address] Basophils/100 WBC (Bld) 0.2 % Normal 0-[address] [facility] Comment on above: Performed By: #### L 500.2500, L503.6030, L503.6550, L100.0100, L100.9950 ####[facility] [address] [place], [address] Eosinophils/100 WBC (Bld) 0.9 % Normal 0-[address] [facility] Comment on above: Performed By: #### L 500.2500, L503.6030, L503.6550, L100.0100, L100.9950 ####[facility] [address] [place], [address] Erythrocyte distribution width (RBC) [Ratio] 17.1 % High 11.6-14.[address] [facility] Comment on above: Performed By: #### L 500.2500, L503.6030, L503.6550, L100.0100, L100.9950 ####[facility] [address] [place], [address] Hematocrit (Bld) [Volume fraction] 32.1 % Low 37-[address] [facility] Comment on above: Performed By: #### L 500.2500, L503.6030, L503.6550, L100.0100, L100.9950 ####[facility] [address] [place], [address] Hemoglobin (Bld) [Mass/Vol] 10.0 g/dL Low 12.0-15.[address] [facility] Comment on above: Performed By: #### L 500.2500, L503.6030, L503.6550, L100.0100, L100.9950 ####[facility] [address] [place], [address] IG% 0.400 Normal 0.0-0.[address] [facility] Comment on above: Result Comment: IG% - Immature Granulocytes (promyelocytes, myelocytes andmetamyelocytes) > 1% indicates that a LEFT SHIFT is Present. Performed By: #### L 500.2500, L503.6030, L503.6550, L100.0100, L100.9950 ####[facility] [address] [place], [address] Lymphocytes/100 WBC (Bld) 21.6 % Normal 19-[address] [facility] Comment on above: Performed By: #### L 500.2500, L503.6030, L503.6550, L100.0100, L100.9950 ####[facility] [address] [place], [address] MCH (RBC) [Entitic mass] 28.5 pg Normal 27.0-32.[address] [facility] Comment on above: Performed By: #### L 500.2500, L503.6030, L503.6550, L100.0100, L100.9950 ####[facility] [address] [place], [address] MCHC (RBC) [Mass/Vol] 31.2 g/dL Low 32-36 [facility] Comment on above: Performed By: #### L 500.2500, L503.6030, L503.6550, L100.0100, L100.9950 ####[facility] [address] [place], [address] MCV (RBC) [Entitic vol] 91.5 fL Normal 81-[address] [facility] Comment on above: Performed By: #### L 500.2500, L503.6030, L503.6550, L100.0100, L100.9950 ####[facility] [address] [place], [address] Monocytes/100 WBC (Bld) 9.3 % Normal 0-[address] [facility] Comment on above: Performed By: #### L 500.2500, L503.6030, L503.6550, L100.0100, L100.9950 ####[facility] [address] [place], [address] Neutrophils/100 WBC (Bld) 67.6 % Normal 47-[address] [facility] Comment on above: Performed By: #### L 500.2500, L503.6030, L503.6550, L100.0100, L100.9950 ####[facility] [address] [place], [address] Nucleated RBC (Bld) [#/Vol] 0 10*3/uL Normal 0-[address] [facility] Comment on above: Performed By: #### L 500.2500, L503.6030, L503.6550, L100.0100, L100.9950 ####[facility] [address] [place], [address] Platelet mean volume (Bld) [Entitic vol] 10.0 fL Normal 6.2-12.[address] [facility] Comment on above: Performed By: #### L 500.2500, L503.6030, L503.6550, L100.0100, L100.9950 ####[facility] [facility] [address] [place], [address] Platelets (Bld) [#/Vol] 179 10*3/uL Normal 150-[address] [facility] Comment on above: Performed By: #### L 500.2500, L503.6030, L503.6550, L100.0100, L100.9950 ####[facility] [address] [place], [address] RBC (Bld) [#/Vol] 3.51 10*6/uL Low 4.2-5.4 [facility] Comment on above: Performed By: #### L 500.2500, L503.6030, L503.6550, L100.0100, L100.9950 ####[facility] [address] [place], [address] RDW SD 57.2 fl High 35.1-43.[address] [facility] Comment on above: Performed By: #### L 500.2500, L503.6030, L503.6550, L100.0100, L100.9950 ####[facility] [address] [place], [address] WBC (Bld) [#/Vol] 4.5 10*3/uL Normal 4.4-11.0 [facility] Comment on above: Performed By: #### L 500.2500, L503.6030, L503.6550, L100.0100, L100.9950 ####[facility] [address] [place], [address] Carbon dioxide, total [Moles /volume] in Central venous bloodOrdered By: Berry Avitia on 07-04-2025 CO2 [Moles/Vol] 22.0 mmol/L 21.0-32.[address] [facility] Chloride assayOrdered By: Fanny Avitia on 07-04-2025 Chloride [Moles/Vol] 104 mmol/L 98-108 [facility] Eosinophil percentageOrdered By: Berry Avitia on 07-04-2025 Eosinophils/100 WBC (Bld) 0.9 % 0-[address] [facility] Erythrocyte distribution wid th ratioOrdered By: Berry Avitia on 07-04-2025 Erythrocyte distribution width (RBC) [Ratio] 17.1 % High 11.6-14.[address] [facility] Erythrocyte distribution wid th standard deviationOrdered By: Berry Avitia on 07-04-2025 Erythrocyte distribution width (RBC) [Ratio] 57.2 fl High 35.1-43.[address] [facility] Ferritinon 07-04-2025 Ferritin [Mass/Vol] 25 ng/mL Normal 22-378 [facility] Comment on above: Performed By: #### L 500.2500, L503.6030, L503.6550, L100.0100, L100.9950 ####[facility] [address] [place], [address] Glomerular filtration rate ( GFR) estimation/1.73 sq m using serum, plasma, or whole bOrdered By: Berry Avitia on 07-04-2025 GFR/1.73 sq M.predicted among non-blacks MDRD (S/P/Bld) [Vol rate/Area] 23 mL/min/{1.73_m2} Low >[address] [facility] Hematocrit Auto (Bld) [Volum e fraction]Ordered By: Berry Avitia on 07-04-2025 Hematocrit (Bld) [Volume fraction] 32.1 % Low 37-[address] [facility] Hemoglobin measurementOrdere d By: [facility]it[facility] on 07-04-2025 Hemoglobin (Bld) [Mass/Vol] 10.0 g/dL Low 12.0-15.[address] [facility] Immature granulocytes/100 WB C Auto (Bld)Ordered By: Berry Avitia on 07-04-2025 Immature granulocytes/100 WBC (Bld) 0.400 % 0.0-0.[address] [facility] Iron measurement (mass/mass) Ordered By: Berry Avitia on 07-04-2025 Iron (Unsp spec) [Mass/Mass] 57 ug/dL 50-[address] [facility] Iron+Iron Binding Capacityon 07-04-2025 Iron [Mass/Vol] 57 ug/dL Normal 50-[address] [facility] Comment on above: Performed By: #### L 500.2500, L503.6030, L503.6550, L100.0100, L100.9950 ####[facility] [address] [place], [address] IRON SATURATION 13.4 Normal 13-[address] [facility] Comment on above: Performed By: #### L 500.2500, L503.6030, L503.6550, L100.0100, L100.9950 ####[facility] [address] [place], [address] TIBC 424 ug/dL Normal 250-[address] [facility] Comment on above: Performed By: #### L 500.2500, L503.6030, L503.6550, L100.0100, L100.9950 ####[facility] [address] [place], [address] UIBC 367 ug/dL Normal 228-[address] [facility] Comment on above: Performed By: #### L 500.2500, L503.6030, L503.6550, L100.0100, L100.9950 ####[facility] [address] [place], [address] MCV (mean corpuscular volume ) determinationOrdered By: Berry Avitia on 07-04-2025 MCV (RBC) [Entitic vol] 91.5 fL 81-[address] [facility] Mean corpuscular hemoglobin (MCH) determinationOrdered By: Berry Avitia on 07-04-2025 MCH (RBC) [Entitic mass] 28.5 pg 27.0-32.[address] [facility] Monocyte percentageOrdered B y: Berry Avitia on 07-04-2025 Monocytes/100 WBC (Bld) 9.3 % 0-[address] [facility] Neutrophil percentageOrdered By: Berry Avitia on 07-04-2025 Neutrophils/100 WBC (Bld) 67.6 % 47-[address] [facility] No Panel InformationOrdered By: Berry Avitia on 07-04-2025 367 ug/dL 228-[address] [facility] Oncology Visit Reporton 10-0 Oncology Visit Report Normal [facility] Platelet countOrdered By: Fanny Avitia on 07-04-2025 Platelets (Bld) [#/Vol] 179 10*3/uL 150-[address] [facility] Potassium measurement (mass/ volume)Ordered By: Berry Avitia on 07-04-2025 Potassium (Unsp spec) [Mass/Vol] 4.3 mmol/L 3.3-5.[address] [facility] RBC Auto (Bld) [#/Vol]Ordere d By: Berry Avitia on 07-04-2025 RBC (Bld) [#/Vol] 3.51 10*6/uL Low 4.2-5.4 [facility] Retic Panelon 07-04-2025 IM RET FRACTION 12.60 Normal 3.00-15.[address] [facility] Comment on above: Performed By: #### L 500.2500, L503.6030, L503.6550, L100.0100, L100.9950 ####[facility] [address] [place], [address] RET-HE 28.5 pg Low 30-[address] [facility] Comment on above: Performed By: #### L 500.2500, L503.6030, L503.6550, L100.0100, L100.9950 ####[facility] [address] [place], [address] Retic Count 1.54 High 0.5-1.[address] [facility] Comment on above: Performed By: #### L 500.2500, L503.6030, L503.6550, L100.0100, L100.9950 ####[facility] [address] [place], [address] Reticulocyte hemoglobin equi valent (RET-He) measurementOrdered By: Berry Avitia on 07-04-2025 Hemoglobin (Reticulocytes) [Entitic mass] 28.5 pg Low 30-[address] [facility] Reticulocytes Auto (Bld) [#/ Vol]Ordered By: Berry Avitia on 07-04-2025 Reticulocytes/100 RBC (Bld) 1.54 % High 0.5-1.[address] [facility] Serum creatinine measurement (mass/volume)Ordered By: Berry Avitia on 07-04-2025 Creatinine [Mass/Vol] 2.09 mg/dL High 0.70-1.20 [facility] Serum glucose measurement (m ass/volume)Ordered By: Berry Avitia on 07-04-2025 Glucose [Mass/Vol] 159 mg/dL High 70-99 [facility] Serum or plasma calcium rema urement (mass/volume)Ordered By: Berry Avitia on 07-04-2025 Calcium [Mass/Vol] 9.9 mg/dL 7.6-11.0 [facility] Serum or plasma ferritin pedro surement (mass/volume)Ordered By: Berry Avitia on 07-04-2025 Ferritin [Mass/Vol] 25 ng/mL 22-378 [facility] Serum or plasma iron saturat ion measurement (mass fraction)Ordered By: Berry Avitia on 07-04-2025 Iron saturation [Mass fraction] 13.4 % 13-[address] [facility] Serum or plasma urea nitroge n measurement (mass/volume)Ordered By: Berry Avitia on 07-04-2025 Urea nitrogen [Mass/Vol] 55 mg/dL High 4-[address] [facility] Sodium levelOrdered By: James Avitia on 07-04-2025 Sodium [Moles/Vol] 138 mmol/L 133-145 [facility] White blood cell (WBC) count Ordered By: Berry Avitia on 07-04-2025 WBC (Bld) [#/Vol] 4.5 10*3/uL 4.4-11.0 [facility] Anion gap in Serum or Plasma Ordered By: Edgar Thompson on 06-29-2025 Anion gap [Moles/Vol] 13 mmol/L 5-15 [facility] BUN/creatinine ratioOrdered By: Edgar Thompson on 06-29-2025 Urea nitrogen/Creatinine [Mass ratio] 28.0 mg/mg High 07-[address] [facility] Basic Metabolic Profile (BMP )on 06-29-2025 BUN/CRE 28.0 RATIO High 07-[address] [facility] Comment on above: Performed By: #### L 500.2500 ####[facility] [address] [place], [address] Calcium [Mass/Vol] 9.8 mg/dL Normal 7.6-11.0 [facility] Comment on above: Performed By: #### L 500.2500 ####[facility] [address] [place], [address] Chloride [Moles/Vol] 104 mmol/L Normal 98-108 [facility] Comment on above: Performed By: #### L 500.2500 ####[facility] [address] [place], [address] CO2 [Moles/Vol] 21.7 mmol/L Normal 21.0-32.[address] [facility] Comment on above: Performed By: #### L 500.2500 ####[facility] [address] [place], [address] Creatinine [Mass/Vol] 1.87 mg/dL High 0.70-1.20 [facility] Comment on above: Performed By: #### L 500.2500 ####[facility] [address] [place], [address] GAP 13 Normal 5-[address] [facility] Comment on above: Performed By: #### L 500.2500 ####[facility] [address] [place], [address] GFR/1.73 sq M.predicted among non-blacks MDRD (S/P/Bld) [Vol rate/Area] 26 mL/min/{1.73_m2} Low >[address] [facility] Comment on above: Result Comment: mL/m in/1.73m2 CKD-EPI Creatinine Equation (2020) Performed By: #### L 500.2500 ####[facility] [address] [place], [address] Glucose [Mass/Vol] 188 mg/dL High 70-99 [facility] Comment on above: Performed By: #### L 500.2500 ####[facility] [address] [place], [address] Potassium [Moles/Vol] 4.3 mmol/L Normal 3.3-5.1 [facility] Comment on above: Performed By: #### L 500.2500 ####[facility] [address] [place], [address] Sodium [Moles/Vol] 138 mmol/L Normal 133-145 [facility] Comment on above: Performed By: #### L 500.2500 ####[facility] [address] [place], [address] Urea nitrogen [Mass/Vol] 52 mg/dL High 4-[address] [facility] Comment on above: Performed By: #### L 500.2500 ####[facility] [address] [place], [address] Carbon dioxide, total [Moles /volume] in Central venous bloodOrdered By: Edgar Thompson on 06-29-2025 CO2 [Moles/Vol] 21.7 mmol/L 21.0-32.[address] [facility] Chloride assayOrdered By: Cassy Thompson on 06-29-2025 Chloride [Moles/Vol] 104 mmol/L 98-108 [facility] Glomerular filtration rate ( GFR) estimation/1.73 sq m using serum, plasma, or whole bOrdered By: Edgar Thompson on 06-29-2025 GFR/1.73 sq M.predicted among non-blacks MDRD (S/P/Bld) [Vol rate/Area] 26 mL/min/{1.73_m2} Low >[address] [facility] Potassium measurement (mass/ volume)Ordered By: Edgar Thompson on 06-29-2025 Potassium (Unsp spec) [Mass/Vol] 4.3 mmol/L 3.3-5.[address] [facility] Serum creatinine measurement (mass/volume)Ordered By: Edgar Thompson on 06-29-2025 Creatinine [Mass/Vol] 1.87 mg/dL High 0.70-1.20 [facility] Serum glucose measurement (m ass/volume)Ordered By: Edgar Thompson on 06-29-2025 Glucose [Mass/Vol] 188 mg/dL High 70-99 [facility] Serum or plasma calcium rema urement (mass/volume)Ordered By: Edgar Thompson on 06-29-2025 Calcium [Mass/Vol] 9.8 mg/dL 7.6-11.0 [facility] Serum or plasma urea nitroge n measurement (mass/volume)Ordered By: Edgar Thompson on 06-29-2025 Urea nitrogen [Mass/Vol] 52 mg/dL High 4-[address] [facility] Sodium levelOrdered By: Moriah Thompson on 06-29-2025 Sodium [Moles/Vol] 138 mmol/L 133-145 [facility] MR/BMS.BUSon 06-21-2025 MR/BMS.BUS Normal [facility] No Panel InformationOrdered By: Kymberly Leger on 06-21-[address] [facility] 0.2 mg/dL [facility] 1.[address] [facility] 5.[address] [facility] Negatve [facility] Internal Medicine Office Vis iton 06-16-2025 Internal Medicine Office Visit Normal [facility] Echo Completeon 06-15-2025 Echo Complete Normal [facility] Echocardiogram study reportO rdered By: Jesse Sykes on 06-15-2025 Study report [facility] Work Phone: Anion gap in Serum or Plasma Ordered By: Edgar Thompson on 06-14-2025 Anion gap [Moles/Vol] 14 mmol/L 5-15 [facility] BUN/creatinine ratioOrdered By: Edgar Thompson on 06-14-2025 Urea nitrogen/Creatinine [Mass ratio] 21.2 mg/mg High 07-[address] [facility] Basic Metabolic Profile (BMP )on 06-14-2025 BUN/CRE 21.2 RATIO High 07-[address] [facility] Comment on above: Performed By: #### L 500.5912 ####[facility] [address] [place], [address] Calcium [Mass/Vol] 10.3 mg/dL Normal 7.6-11.0 [facility] Comment on above: Performed By: #### L 500.2500 ####[facility] [address] [place], [address] Chloride [Moles/Vol] 100 mmol/L Normal 98-108 [facility] Comment on above: Performed By: #### L 500.2500 ####[facility] [address] [place], [address] CO2 [Moles/Vol] 24.3 mmol/L Normal 21.0-32.[address] [facility] Comment on above: Performed By: #### L 500.2500 ####[facility] [address] [place], [address] Creatinine [Mass/Vol] 2.08 mg/dL High 0.70-1.20 [facility] Comment on above: Performed By: #### L 500.2500 ####[facility] [address] [place], [address] GAP 14 Normal 5-[address] [facility] Comment on above: Performed By: #### L 500.2500 ####[facility] [address] [place], [address] GFR/1.73 sq M.predicted among non-blacks MDRD (S/P/Bld) [Vol rate/Area] 23 mL/min/{1.73_m2} Low >[address] [facility] Comment on above: Result Comment: mL/m in/1.73m2 CKD-EPI Creatinine Equation (2020) Performed By: #### L 500.2500 ####[facility] [address] [place], [address] Glucose [Mass/Vol] 124 mg/dL High 70-99 [facility] Comment on above: Performed By: #### L 500.2500 ####[facility] [address] [place], [address] Potassium [Moles/Vol] 3.8 mmol/L Normal 3.3-5.1 [facility] Comment on above: Performed By: #### L 500.2500 ####[facility] [address] [place], [address] Sodium [Moles/Vol] 138 mmol/L Normal 133-145 [facility] Comment on above: Performed By: #### L 500.2500 ####[facility] [address] [place], [address] Urea nitrogen [Mass/Vol] 44 mg/dL High 4-[address] [facility] Comment on above: Performed By: #### L 500.2500 ####[facility] [address] [place], [place], [address] Carbon dioxide, total [Moles /volume] in Central venous bloodOrdered By: Edgar Thompson on 06-14-2025 CO2 [Moles/Vol] 24.3 mmol/L 21.0-32.[address] [facility] Chloride assayOrdered By: Cassy Thompson on 06-14-2025 Chloride [Moles/Vol] 100 mmol/L 98-108 [facility] Glomerular filtration rate ( GFR) estimation/1.73 sq m using serum, plasma, or whole bOrdered By: Edgar Thompson on 06-14-2025 GFR/1.73 sq M.predicted among non-blacks MDRD (S/P/Bld) [Vol rate/Area] 23 mL/min/{1.73_m2} Low >[address] [facility] Potassium measurement (mass/ volume)Ordered By: Edgar Thompson on 06-14-2025 Potassium (Unsp spec) [Mass/Vol] 3.8 mmol/L 3.3-5.[address] [facility] Serum creatinine measurement (mass/volume)Ordered By: Edgar Thompson on 06-14-2025 Creatinine [Mass/Vol] 2.08 mg/dL High 0.70-1.20 [facility] Serum glucose measurement (m ass/volume)Ordered By: Edgar Thompson on 06-14-2025 Glucose [Mass/Vol] 124 mg/dL High 70-99 [facility] Serum or plasma calcium rema urement (mass/volume)Ordered By: Edgar Donna on 06-14-2025 Calcium [Mass/Vol] 10.3 mg/dL 7.6-11.0 [facility] Serum or plasma urea nitroge n measurement (mass/volume)Ordered By: Edgar Thompson on 06-14-2025 Urea nitrogen [Mass/Vol] 44 mg/dL High 4-[address] [facility] Sodium levelOrdered By: Moriah Thompson on 06-14-2025 Sodium [Moles/Vol] 138 mmol/L 133-145 [facility] Protein+Creatinine Ratio,Uri neon 06-09-2025 PROT:CRE RATIO 142 mg/g CRE Normal 0-[address] [facility] Comment on above: Performed By: #### L 501.0900 ####[facility] [address] [place], [address] Protein (U) [Mass/Vol] 6.4 mg/dL Normal 0.0-12.0 [facility] Comment on above: Performed By: #### L 501.0900 ####[facility] [address] [place], [address] UR CREAT 44.80 mg/dL Normal 28.00-217. [address] [facility] Comment on above: Performed By: #### L 501.0900 ####[facility] [address] [facility] [place], [address] Random urine creatinine rema urement (mass/volume)Ordered By: Ros Nice on 06-09-2025 Creatinine Unsp time (U) [Mass/Vol] 44.80 mg/dL 28.00-217. [address] [facility] Urine protein measurement (m ass/volume)Ordered By: Ros Nice on 06-09-2025 Protein (U) [Mass/Vol] 6.4 mg/dL 0.0-12.0 [facility] Urine protein/creatinine mas s ratioOrdered By: Ros Nice on 06-09-2025 Protein/Creatinine (U) [Mass ratio] 142 mg/g CRE 0-[address] [facility] Anion gap in Serum or Plasma Ordered By: Ros Nice on 06-08-2025 Anion gap [Moles/Vol] 13 mmol/L 5-15 [facility] BUN/creatinine ratioOrdered By: Ros Nice on 06-08-2025 Urea nitrogen/Creatinine [Mass ratio] 29.6 mg/mg High 10-[address] [facility] Basic Metabolic Profile (BMP )on 06-08-2025 BUN Normal 4-[address] [facility] Comment on above: Result Comment: WILL L ORDERED BY DR. NICE Performed By: #### L 500.2500 ####[facility] [address] [place], [address] BUN/CRE Normal 10-[address] [facility] Comment on above: Result Comment: WILL L ORDERED BY DR. NICE Performed By: #### L 500.2500 ####[facility] [address] [place], [address] Calcium Normal 7.6-11.[address] [facility] Comment on above: Result Comment: WILL L ORDERED BY DR. NICE Performed By: #### L 500.2500 ####[facility] [address] [place], [address] CL Normal 98-[address] [facility] Comment on above: Result Comment: WILL L ORDERED BY DR. NICE Performed By: #### L 500.2500 ####[facility] [address] [place], [address] CO2 Normal 21.0-32.[address] [facility] Comment on above: Result Comment: WILL L ORDERED BY DR. NICE Performed By: #### L 500.2500 ####[facility] [address] [place], [address] CREAT,SERUM Normal 0.70-1.[address] [facility] Comment on above: Result Comment: WILL L ORDERED BY DR. NICE Performed By: #### L 500.2500 ####[facility] [address] [place], [address] eGFR Normal >[address] [facility] Comment on above: Result Comment: WILL L ORDERED BY DR. NICE Performed By: #### L 500.2500 ####[facility] [address] [place], [address] GAP Normal 5-[address] [facility] Comment on above: Result Comment: WILL L ORDERED BY DR. NICE Performed By: #### L 500.2500 ####[facility] [address] [place], [address] GLU Normal 70-[address] [facility] Comment on above: Result Comment: WILL L ORDERED BY DR. NICE Performed By: #### L 500.2500 ####[facility] [address] [place], [address] Potassium Normal 3.3-5.[address] [facility] Comment on above: Result Comment: WILL L ORDERED BY DR. NICE Performed By: #### L 500.2500 ####[facility] [address] [place], [address] Basic Metabolic Profile (BMP) Normal 133-[address] [facility] Comment on above: Result Comment: WILL L ORDERED BY DR. NICE Performed By: #### L 500.2500 ####[facility] [address] [place], [address] CBC-Complete Blood Cnt No Di ffon 06-08-2025 Erythrocyte distribution width (RBC) [Ratio] 15.8 % High 11.6-14.[address] [facility] Comment on above: Performed By: #### L 500.3600, L100.0500 ####[facility] [address] [place], [address] Hematocrit (Bld) [Volume fraction] 30.0 % Low 37-[address] [facility] Comment on above: Performed By: #### L 500.3600, L100.0500 ####[facility] [address] [place], [address] Hemoglobin (Bld) [Mass/Vol] 9.6 g/dL Low 12.0-15.[address] [facility] Comment on above: Performed By: #### L 500.3600, L100.0500 ####[facility] [address] [place], [address] MCH (RBC) [Entitic mass] 28.3 pg Normal 27.0-32.[address] [facility] Comment on above: Performed By: #### L 500.3600, L100.0500 ####[facility] [address] [place], [address] MCHC (RBC) [Mass/Vol] 32.0 g/dL Normal 32-36 [facility] Comment on above: Performed By: #### L 500.3600, L100.0500 ####[facility] [address] [place], [address] MCV (RBC) [Entitic vol] 88.5 fL Normal 81-[address] [facility] Comment on above: Performed By: #### L 500.3600, L100.0500 ####[facility] [facility] [address] [place], [address] Platelet mean volume (Bld) [Entitic vol] 9.5 fL Normal 6.2-12.[address] [facility] Comment on above: Performed By: #### L 500.3600, L100.0500 ####[facility] [address] [place], [address] Platelets (Bld) [#/Vol] 218 10*3/uL Normal 150-[address] [facility] Comment on above: Performed By: #### L 500.3600, L100.0500 ####[facility] [address] [place], [address] RBC (Bld) [#/Vol] 3.39 10*6/uL Low 4.2-5.4 [facility] Comment on above: Performed By: #### L 500.3600, L100.0500 ####[facility] [address] [place], [address] RDW SD 49.3 fl High 35.1-43.[address] [facility] Comment on above: Performed By: #### L 500.3600, L100.0500 ####[facility] [address] [place], [address] WBC (Bld) [#/Vol] 4.4 10*3/uL Normal 4.4-11.0 [facility] Comment on above: Performed By: #### L 500.3600, L100.0500 ####[facility] [address] [place], [address] CNPNon 06-08-2025 CNPN Telephone (CATHMN) LYNETTE ANGULO ([id number]) 1940 F Date Time Provider Department 06/08/25 [facility] During your visit today, we recorded the following information about you: Shantel Mcgowan 06/08/2025 5:12 PM Signed Called pt, mikki VM advised of date change for phone visit to 06/20 at 1130 Allergies As of Date: 06/08/2025 Noted Allergy Reaction DARVON (PROPOXYPHENE HCL) 02/21/2012 12 - Shortness of Breath 14 - Other: See Comments Comments: No strength, bad dreams IODINE 11/28/2014 10 - Anaphylaxis Comments: 12/24/23- pt. premedicated with 13 hrs, had CT scan with IV contrast. Patient denied any s/s of SOB, difficulty breathing, wheezing, itching or rash. LOTENSIN (BENAZEPRIL HCL) 02/21/2012 11 - Vomiting 14 - Other: See Comments Comments: Coughing RIVAROXABAN 03/29/2022 14 - Other: See Comments Comments: Developed pericardial effusion SHELLFISH 11/28/2014 10 - Anaphylaxis SHELLFISH CONTAINING PRODUCTS 01/27/2019 10 - Anaphylaxis 12 - Shortness of Breath SPIRONOLACTONE 02/21/2012 14 - Other: See Comments Comments: Weak, made calcium level high, heart rate 20BPM ADHESIVE 02/21/2012 2 - Rash CELECOXIB 05/18/2019 14 - Other: See Comments Comments: Due to kidneys DEMERAL (MEPERIDINE) 02/21/2012 11 - Vomiting HYDROCHLOROTHIAZIDE 08/23/2020 14 - Other: See Comments METFORMIN 08/23/2020 14 - Other: See Comments METOPROLOL 08/25/2020 12 - Shortness of Breath PENICILLINS 02/21/2012 4 - Hives SIMVASTATIN 08/23/2020 17 - Myalgia 14 - Other: See Comments SITAGLIPTIN 08/23/2020 14 - Other: See Comments Date Reviewed: 02/07/2025 Reviewed by: Domenic Serrano APRN.REFINERY PIPELINE OPERATOR - Fully Assessed Reason for Visit: Appointment [186] Prescriptions as of 06/08/2025 - apixaban (ELIQUIS) 2.5 mg tab(s) Take 1 tablet by mouth two times a day. - linaCLOtide (LINZESS) 72 mcg capsule Take 1 capsule by mouth as needed. - isosorbide mononitrate ER (IMDUR) 30 mg 24 hr tablet Take 1 tablet by mouth once daily. - olmesartan (BENICAR) 40 mg tablet Take 0.5 tablets by mouth once daily. - furosemide (LASIX) 20 mg tablet Take 1 tablet by mouth once daily. - atorvastatin (LIPITOR) 20 mg tablet Take 1 tablet by mouth once daily. - amLODIPine (NORVASC) 10 mg tablet Take 1 tablet by mouth once daily. - carvedilol (COREG) 25 mg tablet Take 1 tablet by mouth two times a day with meals. - doxazosin (CARDURA) 4 mg tablet Take 1 tablet by mouth daily at bedtime. - clopidogrel (PLAVIX) 75 mg tablet Take 1 tablet by mouth once daily. Patient should start on May 15, 2024. - glimepiride (AMARYL) 1 mg tablet Take 1 tablet by mouth daily with breakfast. - omega 5-lff-twj-fish oil 360 mg-108 mg- 180 mg-1,200 mg cap q 24 HR. - vibegron (GEMTESA) 75 mg tablet Take 1 tablet by mouth once daily. - Cranberry 500 mg cap Take 1 capsule by mouth once daily. - Ascorbic Acid 500 mg cpER Take by mouth once daily. - cinnamon bark (CINNAMON ORAL) Take by mouth. Take 2,00mg daily. - cholecalciferol (VITAMIN D3) 5,000 unit tab Take 5,000 Units by mouth once daily. - pantoprazole DR (PROTONIX) 40 mg tablet TAKE 1 TABLET BY MOUTH ONCE DAILY AT 6 AM - levothyroxine (SYNTHROID) 125 mcg tablet Take 125 mcg by mouth once daily. - latanoprost (XALATAN) 0.005 % ophthalmic solution Use 1 Drop in both eyes daily at bedtime. Meds Comments as of 02/05/2023: 02/05/23 The medications are managed by this patient by: PATIENT Chandni Starr [facility] Problem List As Of Date 06/08/2025 Noted Resolved Pericardial effusion [I31.39] 08/23/2020 09/01/2020 POLY (acute kidney injury) (HCC) [N17.9] 08/24/2020 09/01/2020 Hyponatremia [E87.1] 08/24/2020 Paroxysmal atrial fibrillation (HCC) [I48.0] 08/24/2020 Acute liver disease [K76.9] 08/24/2020 09/01/2020 Type 2 diabetes mellitus with stage 4 chronic k*08/24/2020 SSS (sick sinus syndrome) (HCC) [I49.5] 08/24/2020 Typhoid fever [A01.00] 08/25/2020 Acute idiopathic pericarditis [I30.0] 09/05/2020 Chronic pericarditis [I31.9] 05/30/2022 Primary hypertension [I10] 05/30/2022 Obesity, Class II, BMI 35-39.9 [E66.812] 11/27/2022 Nonrheumatic aortic valve stenosis [I35.0] 01/29/2023 Stenosis of left renal artery (HCC) [I70.1] 01/29/2023 Heart failure, unspecified HF chronicity, unspe*01/29/2023 Stage 4 chronic kidney disease (HCC) [N18.4] 01/30/2023 Cardiac pacemaker [Z95.0] 09/15/2023 History of pericarditis [Z86.79] 09/15/2023 On apixaban therapy [Z79.01] 09/15/2023 Obesity, Class I, BMI 30-34.9 [E66.811] 12/24/2023 S/P TAVR (transcatheter aortic valve replacemen*02/09/2024 Mixed hyperlipidemia [E78.2] 02/10/2024 Coronary artery disease involving [place]*05/11/2024 Encounter Status:Closed by SHANTEL MCGOWAN on 06/08/25 [facility] CNPN Telephone (CARDMN) DARINLYNETTE Leahy ([id number]) 1940 F Date Time Provider Department 06/08/25 XIAO SUAZO During your visit today, we recorded the following information about you: Linda Hayes, MIN 06/08/2025 9:28 AM Signed Called patient to discuss most recent remote transmission. Persistent AF ongoing for 10 days. On Eliquis and historically asymptomatic. Left voicemail requesting patient to re-send a remote for a rhythm check. Will route this message to Dr. Suazo as LOS of persistent AF. Patient follows in [place], scheduled for cards follow-up with Dr. Clements in July. Allergies As of Date: 06/08/2025 Noted Allergy Reaction DARVON (PROPOXYPHENE HCL) 02/21/2012 12 - Shortness of Breath 14 - Other: See Comments Comments: No strength, bad dreams IODINE 11/28/2014 10 - Anaphylaxis Comments: 12/24/23- pt. premedicated with 13 hrs, had CT scan with IV contrast. Patient denied any s/s of SOB, difficulty breathing, wheezing, itching or rash. LOTENSIN (BENAZEPRIL HCL) 02/21/2012 11 - Vomiting 14 - Other: See Comments Comments: Coughing RIVAROXABAN 03/29/2022 14 - Other: See Comments Comments: Developed pericardial effusion SHELLFISH 11/28/2014 10 - Anaphylaxis SHELLFISH CONTAINING PRODUCTS 01/27/2019 10 - Anaphylaxis 12 - Shortness of Breath SPIRONOLACTONE 02/21/2012 14 - Other: See Comments Comments: Weak, made calcium level high, heart rate 20BPM ADHESIVE 02/21/2012 2 - Rash CELECOXIB 05/18/2019 14 - Other: See Comments Comments: Due to kidneys DEMERAL (MEPERIDINE) 02/21/2012 11 - Vomiting HYDROCHLOROTHIAZIDE 08/23/2020 14 - Other: See Comments METFORMIN 08/23/2020 14 - Other: See Comments METOPROLOL 08/25/2020 12 - Shortness of Breath PENICILLINS 02/21/2012 4 - Hives SIMVASTATIN 08/23/2020 17 - Myalgia 14 - Other: See Comments SITAGLIPTIN 08/23/2020 14 - Other: See Comments Date Reviewed: 02/07/2025 Reviewed by: Domenic Serrano APRN.REFINERY PIPELINE OPERATOR - Fully Assessed Prescriptions as of 06/08/2025 - apixaban (ELIQUIS) 2.5 mg tab(s) Take 1 tablet by mouth two times a day. - linaCLOtide (LINZESS) 72 mcg capsule Take 1 capsule by mouth as needed. - isosorbide mononitrate ER (IMDUR) 30 mg 24 hr tablet Take 1 tablet by mouth once daily. - olmesartan (BENICAR) 40 mg tablet Take 0.5 tablets by mouth once daily. - furosemide (LASIX) 20 mg tablet Take 1 tablet by mouth once daily. - atorvastatin (LIPITOR) 20 mg tablet Take 1 tablet by mouth once daily. - amLODIPine (NORVASC) 10 mg tablet Take 1 tablet by mouth once daily. - carvedilol (COREG) 25 mg tablet Take 1 tablet by mouth two times a day with meals. - doxazosin (CARDURA) 4 mg tablet Take 1 tablet by mouth daily at bedtime. - clopidogrel (PLAVIX) 75 mg tablet Take 1 tablet by mouth once daily. Patient should start on May 15, 2024. - glimepiride (AMARYL) 1 mg tablet Take 1 tablet by mouth daily with breakfast. - omega 2-ohl-ipt-fish oil 360 mg-108 mg- 180 mg-1,200 mg cap q 24 HR. - vibegron (GEMTESA) 75 mg tablet Take 1 tablet by mouth once daily. - Cranberry 500 mg cap Take 1 capsule by mouth once daily. - Ascorbic Acid 500 mg cpER Take by mouth once daily. - cinnamon bark (CINNAMON ORAL) Take by mouth. Take 2,00mg daily. - cholecalciferol (VITAMIN D3) 5,000 unit tab Take 5,000 Units by mouth once daily. - pantoprazole DR (PROTONIX) 40 mg tablet TAKE 1 TABLET BY MOUTH ONCE DAILY AT 6 AM - levothyroxine (SYNTHROID) 125 mcg tablet Take 125 mcg by mouth once daily. - latanoprost (XALATAN) 0.005 % ophthalmic solution Use 1 Drop in both eyes daily at bedtime. Meds Comments as of 02/05/2023: 02/05/23 The medications are managed by this patient by: PATIENT Chandni Matty [facility] Problem List As Of Date 06/08/2025 Noted Resolved Pericardial effusion [I31.39] 08/23/2020 09/01/2020 POLY (acute kidney injury) (HCC) [N17.9] 08/24/2020 09/01/2020 Hyponatremia [E87.1] 08/24/2020 Paroxysmal atrial fibrillation (HCC) [I48.0] 08/24/2020 Acute liver disease [K76.9] 08/24/2020 09/01/2020 Type 2 diabetes mellitus with stage 4 chronic k*08/24/2020 SSS (sick sinus syndrome) (HCC) [I49.5] 08/24/2020 Typhoid fever [A01.00] 08/25/2020 Acute idiopathic pericarditis [I30.0] 09/05/2020 Chronic pericarditis [I31.9] 05/30/2022 Primary hypertension [I10] 05/30/2022 Obesity, Class II, BMI 35-39.9 [E66.812] 11/27/2022 Nonrheumatic aortic valve stenosis [I35.0] 01/29/2023 Stenosis of left renal artery (HCC) [I70.1] 01/29/2023 Heart failure, unspecified HF chronicity, unspe*01/29/2023 Stage 4 chronic kidney disease (HCC) [N18.4] 01/30/2023 Cardiac pacemaker [Z95.0] 09/15/2023 History of pericarditis [Z86.79] 09/15/2023 On apixaban therapy [Z79.01] 09/15/2023 Obesity, Class I, BMI 30-34.9 [E66.811] 12/24/2023 S/P TAVR (transcatheter aortic valve replacemen*02/09/2024 Mixed hyperlipidemia [E78 (more content not included)... Normal [facility] Carbon dioxide, total [Moles /volume] in Central venous bloodOrdered By: Ros Nice on 06-08-2025 CO2 [Moles/Vol] 22.9 mmol/L 21.0-32.[address] [facility] Chloride assayOrdered By: Markos Nice on 06-08-2025 Chloride [Moles/Vol] 103 mmol/L 98-108 [facility] Erythrocyte distribution wid th ratioOrdered By: Ros Nice on 06-08-2025 Erythrocyte distribution width (RBC) [Ratio] 15.8 % High 11.6-14.[address] [facility] Erythrocyte distribution wid th standard deviationOrdered By: Ros Nice on 06-08-2025 Erythrocyte distribution width (RBC) [Ratio] 49.3 fl High 35.1-43.[address] [facility] Glomerular filtration rate ( GFR) estimation/1.73 sq m using serum, plasma, or whole bOrdered By: Ros Nice on 06-08-2025 GFR/1.73 sq M.predicted among non-blacks MDRD (S/P/Bld) [Vol rate/Area] 26 mL/min/{1.73_m2} Low >[address] [facility] Hematocrit Auto (Bld) [Volum e fraction]Ordered By: Ros Nice on 06-08-2025 Hematocrit (Bld) [Volume fraction] 30.0 % Low 37-[address] [facility] Hemoglobin measurementOrdere d By: Ros Nice on 06-08-2025 Hemoglobin (Bld) [Mass/Vol] 9.6 g/dL Low 12.0-15.[address] [facility] MCV (mean corpuscular volume ) determinationOrdered By: Ros Nice on 06-08-2025 MCV (RBC) [Entitic vol] 88.5 fL 81-[address] [facility] Mean corpuscular hemoglobin (MCH) determinationOrdered By: Ros Nice on 06-08-2025 MCH (RBC) [Entitic mass] 28.3 pg 27.0-32.[address] [facility] Platelet countOrdered By: Markos Nice on 06-08-2025 Platelets (Bld) [#/Vol] 218 10*3/uL 150-[address] [facility] Potassium measurement (mass/ volume)Ordered By: Ros Nice on 06-08-2025 Potassium (Unsp spec) [Mass/Vol] 3.8 mmol/L 3.3-5.[address] [facility] RBC Auto (Bld) [#/Vol]Ordere d By: Ros Nice on 06-08-2025 RBC (Bld) [#/Vol] 3.39 10*6/uL Low 4.2-5.4 [facility] Renal Profileon 06-08-2025 Albumin [Mass/Vol] 4.2 g/dL Normal 3.4-4.8 [facility] Comment on above: Performed By: #### L 500.3600, L100.0500 ####[facility] [address] [place], [address] BUN/CRE 29.6 RATIO High 10-[address] [facility] Comment on above: Performed By: #### L 500.3600, L100.0500 ####[facility] [address] [place], [address] Calcium [Mass/Vol] 10.3 mg/dL Normal 7.6-11.0 [facility] Comment on above: Performed By: #### L 500.3600, L100.0500 ####[facility] [address] [place], [address] Chloride [Moles/Vol] 103 mmol/L Normal 98-108 [facility] Comment on above: Performed By: #### L 500.3600, L100.0500 ####[facility] [address] [place], [address] CO2 [Moles/Vol] 22.9 mmol/L Normal 21.0-32.[address] [facility] Comment on above: Performed By: #### L 500.3600, L100.0500 ####[facility] [address] [place], [address] Creatinine [Mass/Vol] 1.87 mg/dL High 0.70-1.20 [facility] Comment on above: Performed By: #### L 500.3600, L100.0500 ####[facility] [address] [place], [address] GAP 13 Normal 5-[address] [facility] Comment on above: Performed By: #### L 500.3600, L100.0500 ####[facility] [address] [place], [address] GFR/1.73 sq M.predicted among non-blacks MDRD (S/P/Bld) [Vol rate/Area] 26 mL/min/{1.73_m2} Low >[address] [facility] Comment on above: Result Comment: mL/m in/1.73m2 CKD-EPI Creatinine Equation (2020) Performed By: #### L 500.3600, L100.0500 ####[facility] [address] [place], [address] Glucose [Mass/Vol] 120 mg/dL High 70-99 [facility] Comment on above: Performed By: #### L 500.3600, L100.0500 ####[facility] [address] [place], [address] Phosphate [Mass/Vol] 3.2 mg/dL Normal 2.7-4.5 [facility] Comment on above: Performed By: #### L 500.3600, L100.0500 ####[facility] [address] [place], [address] Potassium [Moles/Vol] 3.8 mmol/L Normal 3.3-5.1 [facility] Comment on above: Performed By: #### L 500.3600, L100.0500 ####[facility] [address] [place], [address] Sodium [Moles/Vol] 138 mmol/L Normal 133-145 [facility] Comment on above: Performed By: #### L 500.3600, L100.0500 ####[facility] [address] [place], [address] Urea nitrogen [Mass/Vol] 55 mg/dL High 4-[address] [facility] Comment on above: Performed By: #### L 500.3600, L100.0500 ####[facility] [address] [place], [address] Serum creatinine measurement (mass/volume)Ordered By: Ros Nice on 06-08-2025 Creatinine [Mass/Vol] 1.87 mg/dL High 0.70-1.20 [facility] Serum glucose measurement (m ass/volume)Ordered By: Ros Nice on 06-08-2025 Glucose [Mass/Vol] 120 mg/dL High 70-99 [facility] Serum or plasma albumin rema urement (mass/volume)Ordered By: Ros Nice on 06-08-2025 Albumin [Mass/Vol] 4.2 g/dL 3.4-4.8 [facility] Serum or plasma calcium rema urement (mass/volume)Ordered By: Ros Nice on 06-08-2025 Calcium [Mass/Vol] 10.3 mg/dL 7.6-11.0 [facility] Serum or plasma urea nitroge n measurement (mass/volume)Ordered By: Ros Nice on 06-08-2025 Urea nitrogen [Mass/Vol] 55 mg/dL High 4-[address] [facility] Sodium levelOrdered By: Victoria milagros Santy on 06-08-2025 Sodium [Moles/Vol] 138 mmol/L 133-145 [facility] White blood cell (WBC) count Ordered By: Ros Nice on 06-08-2025 WBC (Bld) [#/Vol] 4.4 10*3/uL 4.4-11.0 [facility] Erythropoietinon 06-01-2025 ERYTHROPOIETIN 88.1 mIU/mL High 2.6-18.[address] [facility] Comment on above: Result Comment: [employer] DxI 800 Immunoassay SystemValues obtained with different assay methods or kits cannotbe used interchangeably. Results cannot be interpreted asabsolute evidence of the presence or absence of malignantdisease.Performed at: [employer] Director: Vivek Cabezas PhD, Phone: [phone] Performed By: #### L 503.0106, L503.6030, L100.9950, L3100.1350, L100.0100 ####[facility] [address] [place], [address] Absolute lymphocyte countOrd ered By: Hayde García on 05-31-2025 Lymphocytes Auto (Unsp spec) [#/Vol] 0.99 10*3/uL 0.83-4.[address] [facility] Absolute neutrophil countOrd ered By: Hayde García on 05-31-2025 Neutrophils (Bld) [#/Vol] 3.1 10*3/uL 2.0-7.[address] [facility] Automated lymphocyte count a s percentage of total leukocytesOrdered By: Hayde García on 05-31-2025 Lymphocytes/100 WBC Auto (Unsp spec) 21.4 % 19-[address] [facility] Basophil percentageOrdered B y: Hayde García on 05-31-2025 Basophils/100 WBC (Bld) 0.2 % 0-[address] [facility] CBC W/Diff, Automatedon 09-0 2-2025 Absolute Lymph 0.99 X10 3/uL Normal 0.83-4.[address] [facility] Comment on above: Performed By: #### L 503.0106, L503.6030, L100.9950, L3100.1350, L100.0100 ####[facility] [address] [place], [address] Absolute Neut 3.1 X10 3/uL Normal 2.0-7.[address] [facility] Comment on above: Performed By: #### L 503.0106, L503.6030, L100.9950, L3100.1350, L100.0100 ####[facility] [address] [place], [address] Basophils/100 WBC (Bld) 0.2 % Normal 0-[address] [facility] Comment on above: Performed By: #### L 503.0106, L503.6030, L100.9950, L3100.1350, L100.0100 ####[facility] [address] [place], [address] Eosinophils/100 WBC (Bld) 1.7 % Normal 0-[address] [facility] Comment on above: Performed By: #### L 503.0106, L503.6030, L100.9950, L3100.1350, L100.0100 ####[facility] [address] [place], [address] Erythrocyte distribution width (RBC) [Ratio] 14.9 % High 11.6-14.[address] [facility] Comment on above: Performed By: #### L 503.0106, L503.6030, L100.9950, L3100.1350, L100.0100 ####[facility] [address] [place], [address] Hematocrit (Bld) [Volume fraction] 28.5 % Low 37-[address] [facility] Comment on above: Performed By: #### L 503.0106, L503.6030, L100.9950, L3100.1350, L100.0100 ####[facility] [address] [place], [address] Hemoglobin (Bld) [Mass/Vol] 9.1 g/dL Low 12.0-15.[address] [facility] Comment on above: Performed By: #### L 503.0106, L503.6030, L100.9950, L3100.1350, L100.0100 ####[facility] [address] [place], [address] IG% 0.200 Normal 0.0-0.[address] [facility] Comment on above: Result Comment: IG% - Immature Granulocytes (promyelocytes, myelocytes andmetamyelocytes) > 1% indicates that a LEFT SHIFT is Present. Performed By: #### L 503.0106, L503.6030, L100.9950, L3100.1350, L100.0100 ####[facility] [address] [place], [address] Lymphocytes/100 WBC (Bld) 21.4 % Normal 19-[address] [facility] Comment on above: Performed By: #### L 503.0106, L503.6030, L100.9950, L3100.1350, L100.0100 ####[facility] [address] [place], [address] MCH (RBC) [Entitic mass] 28.1 pg Normal 27.0-32.[address] [facility] Comment on above: Performed By: #### L 503.0106, L503.6030, L100.9950, L3100.1350, L100.0100 ####[facility] [address] [place], [address] MCHC (RBC) [Mass/Vol] 31.9 g/dL Low 32-36 [facility] Comment on above: Performed By: #### L 503.0106, L503.6030, L100.9950, L3100.1350, L100.0100 ####[facility] [address] [place], [address] MCV (RBC) [Entitic vol] 88.0 fL Normal 81-[address] [facility] Comment on above: Performed By: #### L 503.0106, L503.6030, L100.9950, L3100.1350, L100.0100 ####[facility] [address] [place], [address] Monocytes/100 WBC (Bld) 9.1 % Normal 0-[address] [facility] Comment on above: Performed By: #### L 503.0106, L503.6030, L100.9950, L3100.1350, L100.0100 ####[facility] [address] [place], [address] Neutrophils/100 WBC (Bld) 67.4 % Normal 47-[address] [facility] Comment on above: Performed By: #### L 503.0106, L503.6030, L100.9950, L3100.1350, L100.0100 ####[facility] [address] [place], [address] Nucleated RBC (Bld) [#/Vol] 0 10*3/uL Normal 0-[address] [facility] Comment on above: Performed By: #### L 503.0106, L503.6030, L100.9950, L3100.1350, L100.0100 ####[facility] [address] [place], [address] Platelet mean volume (Bld) [Entitic vol] 9.8 fL Normal 6.2-12.[address] [facility] Comment on above: Performed By: #### L 503.0106, L503.6030, L100.9950, L3100.1350, L100.0100 ####[facility] [address] [place], [address] Platelets (Bld) [#/Vol] 203 10*3/uL Normal 150-[address] [facility] Comment on above: Performed By: #### L 503.0106, L503.6030, L100.9950, L3100.1350, L100.0100 ####[facility] [address] [place], [address] RBC (Bld) [#/Vol] 3.24 10*6/uL Low 4.2-5.4 [facility] Comment on above: Performed By: #### L 503.0106, L503.6030, L100.9950, L3100.1350, L100.0100 ####[facility] [address] [place], [address] RDW SD 48.0 fl High 35.1-43.[address] [facility] Comment on above: Performed By: #### L 503.0106, L503.6030, L100.9950, L3100.1350, L100.0100 ####[facility] [address] [place], [address] WBC (Bld) [#/Vol] 4.6 10*3/uL Normal 4.4-11.0 [facility] Comment on above: Performed By: #### L 503.0106, L503.6030, L100.9950, L3100.1350, L100.0100 ####[facility] [address] [place], [address] Eosinophil percentageOrdered By: Hayde García on 05-31-2025 Eosinophils/100 WBC (Bld) 1.7 % 0-[address] [facility] Erythrocyte distribution wid th ratioOrdered By: Hayde García on 05-31-2025 Erythrocyte distribution width (RBC) [Ratio] 14.9 % High 11.6-14.[address] [facility] Erythrocyte distribution wid th standard deviationOrdered By: Haydekatarina García on 05-31-2025 Erythrocyte distribution width (RBC) [Ratio] 48.0 fl High 35.1-43.[address] [facility] Hematocrit Auto (Bld) [Volum e fraction]Ordered By: Haydekatarina García on 05-31-2025 Hematocrit (Bld) [Volume fraction] 28.5 % Low 37-[address] [facility] Hemoglobin measurementOrdere d By: Hayde García on 05-31-2025 Hemoglobin (Bld) [Mass/Vol] 9.1 g/dL Low 12.0-15.[address] [facility] Immature granulocytes/100 WB C Auto (Bld)Ordered By: Haydekatarina García on 05-31-2025 Immature granulocytes/100 WBC (Bld) 0.200 % 0.0-0.[address] [facility] Comment on above: IG% - Immature Granu locytes (promyelocytes, myelocytes and metamyelocytes) > 1% indicates that a LEFT SHIFT is Present. Iron measurement (mass/mass) Ordered By: Hayde García on 05-31-2025 Iron (Unsp spec) [Mass/Mass] 31 ug/dL Low 50-[address] [facility] Iron+Iron Binding Capacityon 05-31-2025 Iron [Mass/Vol] 31 ug/dL Low 50-[address] [facility] Comment on above: Performed By: #### L 503.0106, L503.6030, L100.9950, L3100.1350, L100.0100 ####[facility] [address] [place], [address] IRON SATURATION 7.0 Low 13-[address] [facility] Comment on above: Performed By: #### L 503.0106, L503.6030, L100.9950, L3100.1350, L100.0100 ####[facility] [address] [place], [address] TIBC 430 ug/dL Normal 250-[address] [facility] Comment on above: Performed By: #### L 503.0106, L503.6030, L100.9950, L3100.1350, L100.0100 ####[facility] [address] [place], [address] UIBC 399 ug/dL Normal 228-[address] [facility] Comment on above: Performed By: #### L 503.0106, L503.6030, L100.9950, L3100.1350, L100.0100 ####[facility] [address] [place], [address] MCV (mean corpuscular volume ) determinationOrdered By: Hayde García on 05-31-2025 MCV (RBC) [Entitic vol] 88.0 fL 81-[address] [facility] Mean corpuscular hemoglobin (MCH) determinationOrdered By: Hayde García on 05-31-2025 MCH (RBC) [Entitic mass] 28.1 pg 27.0-32.[address] [facility] Mean corpuscular hemoglobin concentration (MCHC) determinationOrdered By: Hayde García on 05-31-2025 MCHC (RBC) [Mass/Vol] 31.9 g/dL Low 32-36 [facility] Mean platelet volume determi nationOrdered By: Hayde García on 05-31-2025 Platelet mean volume (Bld) [Entitic vol] 9.8 fL 6.2-12.[address] [facility] Monocyte percentageOrdered B y: Hayde García on 05-31-2025 Monocytes/100 WBC (Bld) 9.1 % 0-[address] [facility] Neutrophil percentageOrdered By: Hayde García on 05-31-2025 Neutrophils/100 WBC (Bld) 67.4 % 47-[address] [facility] No Panel InformationOrdered By: Hayde García on 05-31-2025 Unsaturated Iron Binding Capacity 399 ug/dL 228-[address] [facility] 399 ug/dL 228-[address] [facility] Nucleated red blood cell per centageOrdered By: Hayde García on 05-31-2025 Nucleated RBC/100 WBC (Bld) [Ratio] 0 % 0-[address] [facility] Platelet countOrdered By: Carlos García on 05-31-2025 Platelets (Bld) [#/Vol] 203 10*3/uL 150-[address] [facility] RBC Auto (Bld) [#/Vol]Ordere d By: Hayde García on 05-31-2025 RBC (Bld) [#/Vol] 3.24 10*6/uL Low 4.2-5.4 [facility] Retic Panelon 05-31-2025 IM RET FRACTION 16.70 High 3.00-15.[address] [facility] Comment on above: Performed By: #### L 503.0106, L503.6030, L100.9950, L3100.1350, L100.0100 ####[facility] [address] [place], [address] RET-HE 25.7 pg Low 30-[address] [facility] Comment on above: Performed By: #### L 503.0106, L503.6030, L100.9950, L3100.1350, L100.0100 ####[facility] [address] [place], [address] Retic Count 1.49 Normal 0.5-1.[address] [facility] Comment on above: Performed By: #### L 503.0106, L503.6030, L100.9950, L3100.1350, L100.0100 ####[facility] [address] [place], [address] Reticulocyte hemoglobin equi valent (RET-He) measurementOrdered By: Hayde García on 05-31-2025 Hemoglobin (Reticulocytes) [Entitic mass] 25.7 pg Low 30-[address] [facility] Reticulocytes Auto (Bld) [#/ Vol]Ordered By: Hayde García on 05-31-2025 Reticulocytes/100 RBC (Bld) 1.49 % 0.5-1.[address] [facility] Serum or plasma erythropoiet in (EPO) measurement (units/volume)Ordered By: Hayde García on 05-31-2025 Erythropoietin (EPO) Qn 88.1 mIU/mL High 2.6-18.[address] [facility] Comment on above: [employer] DxI 800 Immunoassay SystemValues obtained with different assay methods or kits cannotbe used interchangeably. Results cannot be interpreted asabsolute evidence of the presence or absence of malignantdisease.Performed at: [facility] [address] [id number] Director: Vivek Cabezas PhD, Phone: [phone] Serum or plasma iron saturat ion measurement (mass fraction)Ordered By: Hayde García on 05-31-2025 Iron saturation [Mass fraction] 7.0 % Low 13-[address] [facility] Vitamin B12on 05-31-2025 Cobalamin (Vitamin B12) [Mass/Vol] 349 pg/mL Normal 180-[address] [facility] Comment on above: Performed By: #### L 503.0106, L503.6030, L100.9950, L3100.1350, L100.0100 ####[facility] [address] [place], [place], [id number] Vitamin B12 ser/plasOrdered By: Hayde García on 05-31-2025 Cobalamin (Vitamin B12) [Mass/Vol] 349 pg/mL 180-[address] [facility] White blood cell (WBC) count Ordered By: Hayde García on 05-31-2025 WBC (Bld) [#/Vol] 4.6 10*3/uL 4.4-11.0 [facility] Anion gap in Serum or Plasma Ordered By: Edgar Thompson on 05-27-2025 Anion gap [Moles/Vol] 13 mmol/L 5-15 [facility] BUN/creatinine ratioOrdered By: Edgar Thompson on 05-27-2025 Urea nitrogen/Creatinine [Mass ratio] 31.5 mg/mg High 10- [facility] Basic Metabolic Profile (BMP )on 05-27-2025 BUN/CRE 31.5 RATIO High 07-[address] [facility] Comment on above: Performed By: #### L 500.2500 ####[facility] [address] [place], [address] Calcium [Mass/Vol] 9.9 mg/dL Normal 7.6-11.0 [facility] Comment on above: Performed By: #### L 500.2500 ####[facility] [address] [place], [address] Chloride [Moles/Vol] 101 mmol/L Normal 98-108 [facility] Comment on above: Performed By: #### L 500.2500 ####[facility] [address] [place], [address] CO2 [Moles/Vol] 22.1 mmol/L Normal 21.0-32.[address] [facility] Comment on above: Performed By: #### L 500.2500 ####[facility] [address] [place], [address] Creatinine [Mass/Vol] 1.76 mg/dL High 0.70-1.20 [facility] Comment on above: Performed By: #### L 500.2500 ####[facility] [address] [place], [address] GAP 13 Normal 5-[address] [facility] Comment on above: Performed By: #### L 500.2500 ####[facility] [address] [place], [address] GFR/1.73 sq M.predicted among non-blacks MDRD (S/P/Bld) [Vol rate/Area] 28 mL/min/{1.73_m2} Low >[address] [facility] Comment on above: Result Comment: mL/m in/1.73m2 CKD-EPI Creatinine Equation (2020) Performed By: #### L 500.2500 ####[facility] [address] [place], [address] Glucose [Mass/Vol] 129 mg/dL High 70-99 [facility] Comment on above: Performed By: #### L 500.2500 ####[facility] [address] [place], [address] Potassium [Moles/Vol] 4.1 mmol/L Normal 3.3-5.1 [facility] Comment on above: Performed By: #### L 500.2500 ####[facility] [address] [place], [address] Sodium [Moles/Vol] 137 mmol/L Normal 133-145 [facility] Comment on above: Performed By: #### L 500.2500 ####[facility] [address] [place], [address] Urea nitrogen [Mass/Vol] 56 mg/dL High 4-[address] [facility] Comment on above: Performed By: #### L 500.2500 ####[facility] [address] [place], [address] Carbon dioxide, total [Moles /volume] in Central venous bloodOrdered By: Edgar Thompson on 05-27-2025 CO2 [Moles/Vol] 22.1 mmol/L 21.0-32.[address] [facility] Chloride assayOrdered By: Cassy Thompson on 05-27-2025 Chloride [Moles/Vol] 101 mmol/L 98-108 [facility] Glomerular filtration rate ( GFR) estimation/1.73 sq m using serum, plasma, or whole bOrdered By: Edgar Thompson on 05-27-2025 GFR/1.73 sq M.predicted among non-blacks MDRD (S/P/Bld) [Vol rate/Area] 28 mL/min/{1.73_m2} Low >[address] [facility] Comment on above: mL/min/1.73m2 CKD-EP I Creatinine Equation (2020) Potassium measurement (mass/ volume)Ordered By: Edgar Thompson on 05-27-2025 Potassium (Unsp spec) [Mass/Vol] 4.1 mmol/L 3.3-5.[address] [facility] Serum creatinine measurement (mass/volume)Ordered By: Edgar Thompson on 05-27-2025 Creatinine [Mass/Vol] 1.76 mg/dL High 0.70-1.20 [facility] Serum glucose measurement (m ass/volume)Ordered By: Edgar Thompson on 05-27-2025 Glucose [Mass/Vol] 129 mg/dL High 70-99 [facility] Serum or plasma calcium rema urement (mass/volume)Ordered By: Edgar Thompson on 05-27-2025 Calcium [Mass/Vol] 9.9 mg/dL 7.6-11.0 [facility] Serum or plasma urea nitroge n measurement (mass/volume)Ordered By: Edgar Thompson on 05-27-2025 Urea nitrogen [Mass/Vol] 56 mg/dL High 4-[address] [facility] Sodium levelOrdered By: ela Thompson on 05-27-2025 Sodium [Moles/Vol] 137 mmol/L 133-145 [facility] Pulmonary Visit Reporton Pulmonary Visit Report Normal [facility] Stool Occult Blood iFOBon STOB PLEASE GIVE THIS LAB EL TO MICRO, THANKS:) Occult Blood Negative Normal [facility] Comment on above: Performed By: #### M 100.7900 ####[facility] [address] [place], [address] Stool gastrointestinal hemog lobin detection by immunologic methodOrdered By: Hayde García on 05-19-2025 Lower GI hemoglobin IA Ql (Stl) [facility] Internal Medicine Office Vis iton 05-17-2025 Internal Medicine Office Visit Normal [facility] Laboratory - Chemistry and C hemistry - challengeOrdered By: Kymberly Leger on 05-17-2025 Glucose Ql (U) Negative [facility] Urobilinogen (U) [Mass/Vol] 2 mg/dL [facility] Laboratory - Hematology and Cell countsOrdered By: Kymberly Leger on 05-17-2025 Hemoglobin Ql (U) Trace [facility] Laboratory - UrinalysisOrder ed By: Kymberly Leger on 05-17-2025 Nitrite Ql (U) Negative [facility] Protein Ql (U) 1+ [facility] MR/BMS.BUSon 05-17-2025 MR/BMS.BUS Normal [facility] No Panel InformationOrdered By: Kymberly Leger on 05-17-2025 Urine Leukocytes Positive [facility] Negative [facility] 2 mg/dL [facility] 1+ [facility] Trace [facility] Positive [facility] Absolute lymphocyte countOrd ered By: Edgar Demiter on 05-13-2025 Lymphocytes Auto (Unsp spec) [#/Vol] 1.14 10*3/uL 0.83-4.[address] [facility] Absolute neutrophil countOrd ered By: Edgar Demiter on 05-13-2025 Neutrophils (Bld) [#/Vol] 4.4 10*3/uL 2.0-7.[address] [facility] Automated lymphocyte count a s percentage of total leukocytesOrdered By: Edgar Demiter on 05-13-2025 Lymphocytes/100 WBC Auto (Unsp spec) 18.6 % Low 19-[address] [facility] Basophil percentageOrdered B y: Edgar Demiter on 05-13-2025 Basophils/100 WBC (Bld) 0.2 % 0-[address] [facility] CBC W/Diff, Automatedon 04-29 Absolute Lymph 1.14 X10 3/uL Normal 0.83-4.[address] [facility] Comment on above: Performed By: #### L 100.0100, L503.7505 ####[facility] [address] [facility] [address] Absolute Neut 4.4 X10 3/uL Normal 2.0-7.[address] [facility] Comment on above: Performed By: #### L 100.0100, L503.7505 ####[facility] [address] [facility] [address] Basophils/100 WBC (Bld) 0.2 % Normal 0-[address] [facility] Comment on above: Performed By: #### L 100.0100, L503.7505 ####[facility] [address] [place], [address] Eosinophils/100 WBC (Bld) 1.0 % Normal 0-[address] [facility] Comment on above: Performed By: #### L 100.0100, L503.7505 ####[facility] [address] [place], [address] Erythrocyte distribution width (RBC) [Ratio] 15.2 % High 11.6-14.[address] [facility] Comment on above: Performed By: #### L 100.0100, L503.7505 ####[facility] [address] [place], [address] Hematocrit (Bld) [Volume fraction] 30.3 % Low 37-[address] [facility] Comment on above: Performed By: #### L 100.0100, L503.7505 ####[facility] [address] [place], [address] Hemoglobin (Bld) [Mass/Vol] 9.4 g/dL Low 12.0-15.[address] [facility] Comment on above: Performed By: #### L 100.0100, L503.7505 ####[facility] [address] [place], [address] IG% 0.500 Normal 0.0-0.[address] [facility] Comment on above: Result Comment: IG% - Immature Granulocytes (promyelocytes, myelocytes andmetamyelocytes) > 1% indicates that a LEFT SHIFT is Present. Performed By: #### L 100.0100, L503.7505 ####[facility] [address] [place], [address] Lymphocytes/100 WBC (Bld) 18.6 % Low 19-[address] [facility] Comment on above: Performed By: #### L 100.0100, L503.7505 ####[facility] [address] [place], [address] MCH (RBC) [Entitic mass] 28.1 pg Normal 27.0-32.[address] [facility] Comment on above: Performed By: #### L 100.0100, L503.7505 ####[facility] [address] [place], [address] MCHC (RBC) [Mass/Vol] 31.0 g/dL Low 32-36 [facility] Comment on above: Performed By: #### L 100.0100, L503.7505 ####[facility] [address] [place], [address] MCV (RBC) [Entitic vol] 90.4 fL Normal 81-[address] [facility] Comment on above: Performed By: #### L 100.0100, L503.7505 ####[facility] [address] [place], [address] Monocytes/100 WBC (Bld) 8.3 % Normal 0-[address] [facility] Comment on above: Performed By: #### L 100.0100, L503.7505 ####[facility] [address] [place], [address] Neutrophils/100 WBC (Bld) 71.4 % High 47-[address] [facility] Comment on above: Performed By: #### L 100.0100, L503.7505 ####[facility] [address] [place], [address] Nucleated RBC (Bld) [#/Vol] 0 10*3/uL Normal 0-[address] [facility] Comment on above: Performed By: #### L 100.0100, L503.7505 ####[facility] [address] [place], [address] Platelet mean volume (Bld) [Entitic vol] 9.4 fL Normal 6.2-12.[address] [facility] Comment on above: Performed By: #### L 100.0100, L503.7505 ####[facility] [address] [place], [address] Platelets (Bld) [#/Vol] 198 10*3/uL Normal 150-[address] [facility] Comment on above: Performed By: #### L 100.0100, L503.7505 ####[facility] [address] [place], [address] RBC (Bld) [#/Vol] 3.35 10*6/uL Low 4.2-5.4 [facility] Comment on above: Performed By: #### L 100.0100, L503.7505 ####[facility] [address] [place], [address] RDW SD 49.5 fl High 35.1-43.[address] [facility] Comment on above: Performed By: #### L 100.0100, L503.7505 ####[facility] [address] [place], [address] WBC (Bld) [#/Vol] 6.1 10*3/uL Normal 4.4-11.0 [facility] Comment on above: Performed By: #### L 100.0100, L503.7505 ####[facility] [address] [place], [address] Cardiology Visit Reporton Cardiology Visit Report Normal [facility] Eosinophil percentageOrdered By: Edgar Demiter on 05-13-2025 Eosinophils/100 WBC (Bld) 1.0 % 0-[address] [facility] Erythrocyte distribution wid th ratioOrdered By: Edgar Demiter on 05-13-2025 Erythrocyte distribution width (RBC) [Ratio] 15.2 % High 11.6-14.[address] [facility] Erythrocyte distribution wid th standard deviationOrdered By: Edgar Demiter on 05-13-2025 Erythrocyte distribution width (RBC) [Ratio] 49.5 fl High 35.1-43.[address] [facility] Hematocrit Auto (Bld) [Volum e fraction]Ordered By: Edgar Thompson on 05-13-2025 Hematocrit (Bld) [Volume fraction] 30.3 % Low 37-[address] [facility] Hemoglobin measurementOrdere d By: Edgar Thompson on 05-13-2025 Hemoglobin (Bld) [Mass/Vol] 9.4 g/dL Low 12.0-15.[address] [facility] Immature granulocytes/100 WB C Auto (Bld)Ordered By: Edgar Thompson on 05-13-2025 Immature granulocytes/100 WBC (Bld) 0.500 % 0.0-0.[address] [facility] Comment on above: IG% - Immature Granu locytes (promyelocytes, myelocytes and metamyelocytes) > 1% indicates that a LEFT SHIFT is Present. MCV (mean corpuscular volume ) determinationOrdered By: Edgar Thompson on 05-13-2025 MCV (RBC) [Entitic vol] 90.4 fL 81-[address] [facility] Mean corpuscular hemoglobin (MCH) determinationOrdered By: Edgar Thompson on 05-13-2025 MCH (RBC) [Entitic mass] 28.1 pg 27.0-32.[address] [facility] Mean corpuscular hemoglobin concentration (MCHC) determinationOrdered By: Edgar Thompson on 05-13-2025 MCHC (RBC) [Mass/Vol] 31.0 g/dL Low 32-36 [facility] Mean platelet volume determi nationOrdered By: Edgar Thompson on 05-13-2025 Platelet mean volume (Bld) [Entitic vol] 9.4 fL 6.2-12.[address] [facility] Monocyte percentageOrdered B y: Edgar Thompson on 05-13-2025 Monocytes/100 WBC (Bld) 8.3 % 0-[address] [facility] Natriuretic peptide.B prohor eduardo N-Terminal [Mass/volume] in Serum or PlasmaOrdered By: Edgar Thompson on 05-13-2025 Natriuretic peptide.B prohormone N-Terminal [Mass/Vol] 2947 pg/mL High <[address] [facility] Comment on above: Heart Failure Unlike ly: < 300 pg/mLHeart Failure Likely< 50 Years: > 450 pg/mL50-75 Years: > 900 pg/mL>75 Years: > 1800 pg/mL Neutrophil percentageOrdered By: Edgar Thompson on 05-13-2025 Neutrophils/100 WBC (Bld) 71.4 % High 47-[address] [facility] Nucleated red blood cell per centageOrdered By: Edgar Thompson on 05-13-2025 Nucleated RBC/100 WBC (Bld) [Ratio] 0 % 0-[address] [facility] Platelet countOrdered By: Cassy Thompson on 05-13-2025 Platelets (Bld) [#/Vol] 198 10*3/uL 150-[address] [facility] Pro- Brain NATRIURETIC PEPTI Jose J 05-13-2025 Natriuretic peptide B (Bld) [Mass/Vol] 2947 pg/mL High <=[address] [facility] Comment on above: Result Comment: Hear t Failure Unlikely: < 300 pg/mLHeart Failure Likely< 50 Years: > 450 pg/mL50-75 Years: > 900 pg/mL>75 Years: > 1800 pg/mL Performed By: #### L 100.0100, L503.7505 ####[facility] [address] [place], [address] RBC Auto (Bld) [#/Vol]Ordere d By: Edgar Thompson on 05-13-2025 RBC (Bld) [#/Vol] 3.35 10*6/uL Low 4.2-5.4 [facility] White blood cell (WBC) count Ordered By: Edgar Thompson on 05-13-2025 WBC (Bld) [#/Vol] 6.1 10*3/uL 4.4-11.0 [facility] CNPNon 05-03-2025 CNPN Telephone ([employer]) LYNETTE ANGULO ([id number]) 1940 F Date Time Provider Department 05/03/25 SHEBA SOMERS During your visit today, we recorded the following information about you: Shantel Mcgowan 05/03/2025 6:01 PM Signed Called patient to reschedule 05/[address] Somers due to provider being out of office. Spoke to pateint. She has not scheduled the Echo as of yet. Advised pateint to schedule the Echo and then call the office and we can schedule the phone call. Allergies As of Date: 05/03/2025 Noted Allergy Reaction DARVON (PROPOXYPHENE HCL) 02/21/2012 12 - Shortness of Breath 14 - Other: See Comments Comments: No strength, bad dreams IODINE 11/28/2014 10 - Anaphylaxis Comments: 12/24/23- pt. premedicated with 13 hrs, had CT scan with IV contrast. Patient denied any s/s of SOB, difficulty breathing, wheezing, itching or rash. LOTENSIN (BENAZEPRIL HCL) 02/21/2012 11 - Vomiting 14 - Other: See Comments Comments: Coughing RIVAROXABAN 03/29/2022 14 - Other: See Comments Comments: Developed pericardial effusion SHELLFISH 11/28/2014 10 - Anaphylaxis SHELLFISH CONTAINING PRODUCTS 01/27/2019 10 - Anaphylaxis 12 - Shortness of Breath SPIRONOLACTONE 02/21/2012 14 - Other: See Comments Comments: Weak, made calcium level high, heart rate 20BPM ADHESIVE 02/21/2012 2 - Rash CELECOXIB 05/18/2019 14 - Other: See Comments Comments: Due to kidneys DEMERAL (MEPERIDINE) 02/21/2012 11 - Vomiting HYDROCHLOROTHIAZIDE 08/23/2020 14 - Other: See Comments METFORMIN 08/23/2020 14 - Other: See Comments METOPROLOL 08/25/2020 12 - Shortness of Breath PENICILLINS 02/21/2012 4 - Hives SIMVASTATIN 08/23/2020 17 - Myalgia 14 - Other: See Comments SITAGLIPTIN 08/23/2020 14 - Other: See Comments Date Reviewed: 02/07/2025 Reviewed by: Domenic Serrano APRN.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 - isosorbide mononitrate ER (IMDUR) 30 mg 24 hr tablet Take 1 tablet by mouth once daily. - olmesartan (BENICAR) 40 mg tablet Take 0.5 tablets by mouth once daily. - furosemide (LASIX) 20 mg tablet Take 1 tablet by mouth once daily. - atorvastatin (LIPITOR) 20 mg tablet Take 1 tablet by mouth once daily. - amLODIPine (NORVASC) 10 mg tablet Take 1 tablet by mouth once daily. - carvedilol (COREG) 25 mg tablet Take 1 tablet by mouth two times a day with meals. - doxazosin (CARDURA) 4 mg tablet Take 1 tablet by mouth daily at bedtime. - apixaban (ELIQUIS) 2.5 mg tab(s) Take 1 tablet by mouth two times a day. - clopidogrel (PLAVIX) 75 mg tablet Take 1 tablet by mouth once daily. Patient should start on May 15, 2024. - glimepiride (AMARYL) 1 mg tablet Take 1 tablet by mouth daily with breakfast. - omega 4-pmx-arx-fish oil 360 mg-108 mg- 180 mg-1,200 mg cap q 24 HR. - vibegron (GEMTESA) 75 mg tablet Take 1 tablet by mouth once daily. - Cranberry 500 mg cap Take 1 capsule by mouth once daily. - Ascorbic Acid 500 mg cpER Take by mouth once daily. - cinnamon bark (CINNAMON ORAL) Take by mouth. Take 2,00mg daily. - cholecalciferol (VITAMIN D3) 5,000 unit tab Take 5,000 Units by mouth once daily. - pantoprazole DR (PROTONIX) 40 mg tablet TAKE 1 TABLET BY MOUTH ONCE DAILY AT 6 AM - levothyroxine (SYNTHROID) 125 mcg tablet Take 125 mcg by mouth once daily. - latanoprost (XALATAN) 0.005 % ophthalmic solution Use 1 Drop in both eyes daily at bedtime. Meds Comments as of 02/05/2023: 02/05/23 The medications are managed by this patient by: PATIENT Chandni Starr [facility] Problem List As Of Date 05/03/2025 Noted Resolved Pericardial effusion [I31.39] 08/23/2020 09/01/2020 POLY (acute kidney injury) (HCC) [N17.9] 08/24/2020 09/01/2020 Hyponatremia [E87.1] 08/24/2020 Paroxysmal atrial fibrillation (HCC) [I48.0] 08/24/2020 Acute liver disease [K76.9] 08/24/2020 09/01/2020 Type 2 diabetes mellitus with stage 4 chronic k*08/24/2020 SSS (sick sinus syndrome) (HCC) [I49.5] 08/24/2020 Typhoid fever [A01.00] 08/25/2020 Acute idiopathic pericarditis [I30.0] 09/05/2020 Chronic pericarditis [I31.9] 05/30/2022 Primary hypertension [I10] 05/30/2022 Obesity, Class II, BMI 35-39.9 [E66.812] 11/27/2022 Nonrheumatic aortic valve stenosis [I35.0] 01/29/2023 Stenosis of left renal artery (HCC) [I70.1] 01/29/2023 Heart failure, unspecified HF chronicity, unspe*01/29/2023 Stage 4 chronic kidney disease (HCC) [N18.4] 01/30/2023 Cardiac pacemaker [Z95.0] 09/15/2023 History of pericarditis [Z86.79] 09/15/2023 On apixaban therapy [Z79.01] 09/15/2023 Obesity, Class I, BMI 30-34.9 [E66.811] 12/24/2023 S/P TAVR (transcatheter aortic valve replacemen*02/09/2024 Mixed hyperlipidemia [E78.2] 02/10/2024 Coronary artery disease involving [place]*05/11/2024 (more content not included)... Normal [facility] Anion gap in Serum or Plasma Ordered By: Ros Nice on 04-13-2025 Anion gap [Moles/Vol] 12 mmol/L 5-15 [facility] BUN/creatinine ratioOrdered By: Ros Nice on 04-13-2025 Urea nitrogen/Creatinine [Mass ratio] 22.0 mg/mg High 10-[address] [facility] Carbon dioxide, total [Moles /volume] in Central venous bloodOrdered By: Ros Nice on 04-13-2025 CO2 [Moles/Vol] 20.5 mmol/L Low 21.0-32.[address] [facility] Chloride assayOrdered By: Markos Nice on 04-13-2025 Chloride [Moles/Vol] 107 mmol/L 98-108 [facility] Glomerular filtration rate ( GFR) estimation/1.73 sq m using serum, plasma, or whole bOrdered By: Ros Nice on 04-13-2025 GFR/1.73 sq M.predicted among non-blacks MDRD (S/P/Bld) [Vol rate/Area] 33 mL/min/{1.73_m2} Low >[address] [facility] Comment on above: mL/min/1.73m2 CKD-EP I Creatinine Equation (2020) PTHINon 04-13-2025 PTH 99 pg/mL High 11-[address] [facility] Comment on above: Performed By: #### L 500.3600, L501.0900, L509.1000 ####[facility] [address] [place], [address] Potassium measurement (mass/ volume)Ordered By: Ros Nice on 04-13-2025 Potassium (Unsp spec) [Mass/Vol] 4.3 mmol/L 3.3-5.[address] [facility] Protein+Creatinine Ratio,Uri neon 04-13-2025 PROT:CRE RATIO 138 mg/g CRE Normal 0-[address] [facility] Comment on above: Performed By: #### L 500.3600, L501.0900, L509.1000 ####[facility] [address] [place], [address] Protein (U) [Mass/Vol] 11.4 mg/dL Normal 0.0-12.0 [facility] Comment on above: Performed By: #### L 500.3600, L501.0900, L509.1000 ####[facility] [address] [place], [address] UR CREAT 82.80 mg/dL Normal 28.00-217. [address] [facility] Comment on above: Performed By: #### L 500.3600, L501.0900, L509.1000 ####[facility] [address] [place], [address] Random urine creatinine rema urement (mass/volume)Ordered By: Ros Nice on 04-13-2025 Creatinine Unsp time (U) [Mass/Vol] 82.80 mg/dL 28.00-217. [address] [facility] Renal Profileon 04-13-2025 Albumin [Mass/Vol] 4.0 g/dL Normal 3.4-4.8 [facility] Comment on above: Performed By: #### L 500.3600, L501.0900, L509.1000 ####[facility] [address] [place], [address] BUN/CRE 22.0 RATIO High 10-[address] [facility] Comment on above: Performed By: #### L 500.3600, L501.0900, L509.1000 ####[facility] [address] [place], [address] Calcium [Mass/Vol] 9.9 mg/dL Normal 7.6-11.0 [facility] Comment on above: Performed By: #### L 500.3600, L501.0900, L509.1000 ####[facility] [address] [place], [address] Chloride [Moles/Vol] 107 mmol/L Normal 98-108 [facility] Comment on above: Performed By: #### L 500.3600, L501.0900, L509.1000 ####[facility] [address] [place], [address] CO2 [Moles/Vol] 20.5 mmol/L Low 21.0-32.[address] [facility] Comment on above: Performed By: #### L 500.3600, L501.0900, L509.1000 ####[facility] [address] [place], [address] Creatinine [Mass/Vol] 1.53 mg/dL High 0.70-1.20 [facility] Comment on above: Performed By: #### L 500.3600, L501.0900, L509.1000 ####[facility] [address] [place], [address] GAP 12 Normal 5-[address] [facility] Comment on above: Performed By: #### L 500.3600, L501.0900, L509.1000 ####[facility] [address] [place], [address] GFR/1.73 sq M.predicted among non-blacks MDRD (S/P/Bld) [Vol rate/Area] 33 mL/min/{1.73_m2} Low >[address] [facility] Comment on above: Result Comment: mL/m in/1.73m2 CKD-EPI Creatinine Equation (2020) Performed By: #### L 500.3600, L501.0900, L509.1000 ####[facility] [address] [place], [address] Glucose [Mass/Vol] 121 mg/dL High 70-99 [facility] Comment on above: Performed By: #### L 500.3600, L501.0900, L509.1000 ####[facility] [address] [place], [address] Phosphate [Mass/Vol] 3.5 mg/dL Normal 2.7-4.5 [facility] Comment on above: Performed By: #### L 500.3600, L501.0900, L509.1000 ####[facility] [address] [place], [address] Potassium [Moles/Vol] 4.3 mmol/L Normal 3.3-5.1 [facility] Comment on above: Performed By: #### L 500.3600, L501.0900, L509.1000 ####[facility] [address] [place], [address] Sodium [Moles/Vol] 139 mmol/L Normal 133-145 [facility] Comment on above: Performed By: #### L 500.3600, L501.0900, L509.1000 ####[facility] [address] [place], [address] Urea nitrogen [Mass/Vol] 34 mg/dL High 4-[address] [facility] Comment on above: Performed By: #### L 500.3600, L501.0900, L509.1000 ####[facility] [address] [place], [address] Serum creatinine measurement (mass/volume)Ordered By: Ros Nice on 04-13-2025 Creatinine [Mass/Vol] 1.53 mg/dL High 0.70-1.20 [facility] Serum glucose measurement (m ass/volume)Ordered By: Ros Nice on 04-13-2025 Glucose [Mass/Vol] 121 mg/dL High 70-99 [facility] Serum or plasma albumin rema urement (mass/volume)Ordered By: Ros Nice on 04-13-2025 Albumin [Mass/Vol] 4.0 g/dL 3.4-4.8 [facility] Serum or plasma calcium rema urement (mass/volume)Ordered By: Ros Nice on 04-13-2025 Calcium [Mass/Vol] 9.9 mg/dL 7.6-11.0 [facility] Serum or plasma urea nitroge n measurement (mass/volume)Ordered By: Ros Nice on 04-13-2025 Urea nitrogen [Mass/Vol] 34 mg/dL High -[address] [facility] Sodium levelOrdered By: Victoria Nice on 04-13-2025 Sodium [Moles/Vol] 139 mmol/L 133-145 [facility] Urine protein measurement (m ass/volume)Ordered By: Ros Nice on 04-13-2025 Protein (U) [Mass/Vol] 11.4 mg/dL 0.0-12.0 [facility] Urine protein/creatinine mas s ratioOrdered By: Ros Nice on 04-13-2025 Protein/Creatinine (U) [Mass ratio] 138 mg/g CRE 0-[address] [facility] Vitamin D,25 Hydroxyon 04-13 Vitamin D 25-OH 39.9 ng/mL Normal 30-[address] [facility] Comment on above: Result Comment: Juliet min D StatusDeficiency: <20 ng/mL (50nmol/L)Insufficiency: 20-30 ng/mL (50-75 nmol/L)Sufficiency: 30-100 ng/mL (75-250 nmol/L)Toxicity: >100 ng/mL (>250 nmol/L) Performed By: #### L 506.1001 ####[facility] [address] [place], [address] Internal Medicine Office Vis itodiandra 04-12-2025 Internal Medicine Office Visit Normal [facility] Laboratory - Chemistry and C hemistry - challengeOrdered By: Jorge Benavides on 04-12-2025 Bilirubin Ql (U) Negative [facility] Ketones Ql (U) Negative [facility] pH (U) 5.0 [pH] [facility] Specific gravity (U) [Rel density] 1.[address] [facility] Urobilinogen (U) [Mass/Vol] Negative [facility] Laboratory - Hematology and Cell countsOrdered By: Jorge Benavides on 04-12-2025 Hemoglobin Ql (U) Negative [facility] HbA1c (Bld) [Mass fraction] 7.0 % High 4.2-6.[address] [facility] Laboratory - Specimen inform ationOrdered By: Jorge Benavides on 04-12-2025 Clarity (U) Clear [facility] Color (U) YELLOW [facility] Laboratory - UrinalysisOrder ed By: Jorge Benavides on 04-12-2025 Nitrite Ql (U) Negative [facility] Protein Ql (U) Trace [facility] No Panel InformationOrdered By: Jorge Benavides on 04-12-2025 Urine Leukocytes Positive [facility] Urine Non-Hemolyzed Blood [facility] YELLOW [facility] Clear [facility] Negative [facility] 1.[address] [facility] 5.0 [facility] Trace [facility] Positive [facility] 7.0 % High 4.2-6.[address] [facility] CNOVon 02-24-2025 CNOV Office Visit (CATHMN ) LYNETTE ANGULO ([id number]) 1940 F Date Time Provider Department 02/24/25 3:15 PM SHEBA SOMERS CATHLE During your visit today, we recorded the following information about you: Pulse Respiration Blood pressure Weight 57/minute 18/minute 136/64 87.9 kg Sheba Somers MD 02/24/2025 4:04 PM Signed Heart[facility] V[facility] Thor[facility] [place] [facility] Department of Cardiovascular Medicine SECTION OF INTERVENTIONAL CARDIOLOGY OUTPATIENT VISIT DATE February 24, 2025 OUTPATIENT VISIT TYPE ESTABLISHED PRIMARY CARE PHYSICIAN: Jorge Benavides [facility] [place] [address] REFERRING PHYSICIAN: Domenic Serrano [address] [facility] [address] CHIEF COMPLAINT: Patient presents with: CARD Follow Up 3 Month Shortness of Breath: Has worsened since last visit HISTORY OF PRESENT ILLNESS: Ms. Angulo is a 85 year old female who presents today for follow-up visit TAVR and CAD and HFpEF. PAST CARDIAC HISTORY: See HPI PAST MEDICAL HISTORY Diagnosis Date Anemia Aortic stenosis Atrial fibrillation (HCC) Atrial flutter (HCC) Bradycardia Cancer (HCC) thyroid Chronic kidney disease Diabetes (HCC) Gout Heart attack (HCC) HLD (hyperlipidemia) Hypertension Pericardial effusion (HCC) Recurrent UTI Sleep apnea CPAP SSS (sick sinus syndrome) (HCC) Thyroid disease PAST SURGICAL HISTORY Procedure Laterality Date APPENDECTOMY HX CATARACT SURGERY, COMPLEX HYSTERECTOMY HX PPM DUAL 2018 THYROIDECTOMY TOTAL/COMPLETE Parathyroid removal TOTAL KNEE REPLACEMENT Left x2- one revision SOCIAL HISTORY Social History Tobacco Use Smoking status: Never Smokeless tobacco: Never Vaping Use Vaping status: Never Used Substance Use Topics Alcohol use: No Drug use: Never FAMILY HISTORY Problem Relation Age of Onset Uterine Cancer Mother Hypertension Father Lung Cancer Father other (Vascular) Son Hypertension Son ALLERGIES: ALLERGIES Allergen Reactions Darvon [Propoxyphen* Shortness of Breath, Other: See Comments No strength, bad dreams Iodine Anaphylaxis 12/24/23- pt. premedicated with 13 hrs, had CT scan with IV contrast. Patient denied any s/s of SOB, difficulty breathing, wheezing, itching or rash. Lotensin [Benazepri* Vomiting, Other: See Comments Coughing Rivaroxaban Other: See Comments Developed pericardial effusion Shellfish Anaphylaxis Shellfish Containin* Anaphylaxis, Shortness of Breath Spironolactone Other: See Comments Weak, made calcium level high, heart rate 20BPM Adhesive Rash Celecoxib Other: See Comments Due to kidneys Demeral [Meperidine] Vomiting Hydrochlorothiazide Other: See Comments Metformin Other: See Comments Metoprolol Shortness of Breath Penicillins Hives Simvastatin Myalgia, Other: See Comments Sitagliptin Other: See Comments MEDICATIONS: Current Outpatient Medications Medication Sig linaCLOtide (LINZESS) 72 mcg capsule Take 1 capsule by mouth as needed. olmesartan (BENICAR) 40 mg tablet Take 0.5 tablets by mouth once daily. (Patient taking differently: Take 40 mg by mouth once daily.) furosemide (LASIX) 20 mg tablet Take 1 tablet by mouth once daily. (Patient taking differently: Take 20 mg by mouth once daily. Pt taking 40 mg for 7 days (02/22-03/01) per ED physician) atorvastatin (LIPITOR) 20 mg tablet Take 1 tablet by mouth once daily. amLODIPine (NORVASC) 10 mg tablet Take 1 tablet by mouth once daily. carvedilol (COREG) 25 mg tablet Take 1 tablet by mouth two times a day with meals. doxazosin (CARDURA) 4 mg tablet Take 1 tablet by mouth daily at bedtime. apixaban (ELIQUIS) 2.5 mg tab(s) Take 1 tablet by mouth two times a day. clopidogrel (PLAVIX) 75 mg tablet Take 1 tablet by mouth once daily. Patient should start on May 15, 2024. glimepiride (AMARYL) 1 mg tablet Take 1 tablet by mouth daily with breakfast. omega 8-ygf-usg-fish oil 360 mg-108 mg- 180 mg-1,200 mg cap q 24 HR. vibegron (GEMTESA) 75 mg tablet Take 1 tablet by mouth once daily. Cranberry 500 mg cap Take 1 capsule by mouth once daily. Ascorbic Acid 500 mg cpER Take by mouth once daily. cinnamon bark (CINNAMON ORAL) Take by mouth. Take 2,00mg daily. cholecalciferol (VITAMIN D3) 5,000 unit tab Take 5,000 Units by mouth once daily. pantoprazole DR (PROTONIX) 40 mg tablet TAKE 1 TABLET BY MOUTH ONCE DAILY AT 6 AM levothyroxine (SYNTHROID) 125 mcg tablet Take 125 mcg by mouth once daily. latanoprost (XALATAN) 0.005 % ophthalmic solution Use 1 Drop in both eyes daily at bedtime. isosorbide mononitrate ER (IMDUR) 30 mg 24 hr tablet Take 1 tablet by mouth once daily. No current facility-administered medications for this visit. REVIEW OF SYSTEMS: HEENT: Denies recent severe headaches, visual changes, difficulty swallowing. (more content not included)... Normal [facility] Absolute lymphocyte countOrd ered By: Minor Izaguirre on 02-22-2025 Lymphocytes Auto (Unsp spec) [#/Vol] 0.84 10*3/uL 0.83-4.[address] [facility] Absolute neutrophil countOrd ered By: Minor Izaguirre on 02-22-2025 Neutrophils (Bld) [#/Vol] 4.2 10*3/uL 2.0-7.[address] [facility] Anion gap in Serum or Plasma Ordered By: Minor Izaguirre on 02-22-2025 Anion gap [Moles/Vol] 11 mmol/L 5-15 [facility] Automated lymphocyte count a s percentage of total leukocytesOrdered By: Minor Izaguirre on 02-22-2025 Lymphocytes/100 WBC Auto (Unsp spec) 15.2 % Low 19-[address] [facility] BUN/creatinine ratioOrdered By: Minor Izaguirre on 02-22-2025 Urea nitrogen/Creatinine [Mass ratio] 16.2 mg/mg 10-[address] [facility] Basophil percentageOrdered B y: Minor Izaguirre on 02-22-2025 Basophils/100 WBC (Bld) 0.2 % 0-[address] [facility] Bilirubin, totalOrdered By: Minor Izaguirre on 02-22-2025 Bilirubin [Mass/Vol] 0.82 mg/dL 0.00-1.30 [facility] CBC W/Diff, Automatedon 01-28 Absolute Lymph 0.84 X10 3/uL Normal 0.83-4.[address] [facility] Comment on above: Performed By: #### L 500.4050, L100.0100, L503.7505 ####[facility] [address] [place], [address] Absolute Neut 4.2 X10 3/uL Normal 2.0-7.[address] [facility] Comment on above: Performed By: #### L 500.4050, L100.0100, [id number] ####[facility] [address] [place], [address] Basophils/100 WBC (Bld) 0.2 % Normal 0-[address] [facility] Comment on above: Performed By: #### L 500.4050, L100.0100, L503.7505 ####[facility] [address] [place], [address] Eosinophils/100 WBC (Bld) 1.1 % Normal 0-[address] [facility] Comment on above: Performed By: #### L 500.4050, L100.0100, L503.7505 ####[facility] [address] [place], [address] Erythrocyte distribution width (RBC) [Ratio] 14.5 % Normal 11.6-14.[address] [facility] Comment on above: Performed By: #### L 500.4050, L100.0100, [id number] ####[facility] [address] [place], [address] Hematocrit (Bld) [Volume fraction] 31.7 % Low 37-[address] [facility] Comment on above: Performed By: #### L 500.4050, L100.0100, [id number] ####[facility] [address] [place], [address] Hemoglobin (Bld) [Mass/Vol] 9.8 g/dL Low 12.0-15.[address] [facility] Comment on above: Performed By: #### L 500.4050, L100.0100, L503.7505 ####[facility] [address] [place], [address] IG% 0.400 Normal 0.0-0.[address] [facility] Comment on above: Result Comment: IG% - Immature Granulocytes (promyelocytes, myelocytes andmetamyelocytes) > 1% indicates that a LEFT SHIFT is Present. Performed By: #### L 500.4050, L100.0100, L503.7505 ####[facility] [address] [place], [address] Lymphocytes/100 WBC (Bld) 15.2 % Low 19-[address] [facility] Comment on above: Performed By: #### L 500.4050, L100.0100, [id number] ####[facility] [address] [place], [address] MCH (RBC) [Entitic mass] 28.8 pg Normal 27.0-32.[address] [facility] Comment on above: Performed By: #### L 500.4050, L100.0100, [id number] ####[facility] [address] [place], [address] MCHC (RBC) [Mass/Vol] 30.9 g/dL Low 32-36 [facility] Comment on above: Performed By: #### L 500.4050, L100.0100, [id number] ####[facility] [address] [place], [address] MCV (RBC) [Entitic vol] 93.2 fL Normal 81-[address] [facility] Comment on above: Performed By: #### L 500.4050, L100.0100, [id number] ####[facility] [address] [place], [address] Monocytes/100 WBC (Bld) 8.1 % Normal 0-[address] [facility] Comment on above: Performed By: #### L 500.4050, L100.0100, [id number] ####[facility] [address] [place], [address] Neutrophils/100 WBC (Bld) 75.0 % High 47-[address] [facility] Comment on above: Performed By: #### L 500.4050, L100.0100, [id number] ####[facility] [address] [place], [address] Nucleated RBC (Bld) [#/Vol] 0 10*3/uL Normal 0-[address] [facility] Comment on above: Performed By: #### L 500.4050, L100.0100, [id number] ####[facility] [address] [place], [address] Platelet mean volume (Bld) [Entitic vol] 9.9 fL Normal 6.2-12.[address] [facility] Comment on above: Performed By: #### L 500.4050, L100.0100, [id number] ####[facility] [address] [place], [address] Platelets (Bld) [#/Vol] 210 10*3/uL Normal 150-[address] [facility] Comment on above: Performed By: #### L 500.4050, L100.0100, [id number] ####[facility] [address] [place], [address] RBC (Bld) [#/Vol] 3.40 10*6/uL Low 4.2-5.4 [facility] Comment on above: Performed By: #### L 500.4050, L100.0100, [id number] ####[facility] [address] [place], [address] RDW SD 49.3 fl High 35.1-43.[address] [facility] Comment on above: Performed By: #### L 500.4050, L100.0100, [id number] ####[facility] [address] [place], [address] WBC (Bld) [#/Vol] 5.5 10*3/uL Normal 4.4-11.0 [facility] Comment on above: Performed By: #### L 500.4050, L100.0100, L503.7505 ####[facility] [address] [place], [address] Carbon dioxide, total [Moles /volume] in Central venous bloodOrdered By: Minor Izaguirre on 02-22-2025 CO2 [Moles/Vol] 21.7 mmol/L 21.0-32.[address] [facility] Chloride assayOrdered By: Bandar Izaguirre on 02-22-2025 Chloride [Moles/Vol] 107 mmol/L 98-108 [facility] Comprehensive Metabolic Prof ilon 02-22-2025 Albumin [Mass/Vol] 4.2 g/dL Normal 3.4-4.8 [facility] Comment on above: Performed By: #### L 500.4050, L100.0100, L503.7505 ####[facility] [address] [place], [address] Albumin/Globulin [Mass ratio] 1.4 {ratio} Normal 0.9-2.[address] [facility] Comment on above: Performed By: #### L 500.4050, L100.0100, L503.7505 ####[facility] [address] [place], [address] ALK PHOS 99 U/L Normal 35-[address] [facility] Comment on above: Performed By: #### L 500.4050, L100.0100, L503.7505 ####[facility] [address] [place], [address] ALT [Catalytic activity/Vol] 18 U/L Normal <=[address] [facility] Comment on above: Performed By: #### L 500.4050, L100.0100, L503.7505 ####[facility] [address] [place], [address] AST [Catalytic activity/Vol] 23 U/L Normal <=[address] [facility] Comment on above: Performed By: #### L 500.4050, L100.0100, L503.7505 ####[facility] [address] [place], [address] Bilirubin [Mass/Vol] 0.82 mg/dL Normal 0.00-1.30 [facility] Comment on above: Performed By: #### L 500.4050, L100.0100, L503.7505 ####[facility] [address] [place], [address] BUN/CRE 16.2 RATIO Normal 10-[address] [facility] Comment on above: Performed By: #### L 500.4050, L100.0100, L503.7505 ####[facility] [address] [place], [address] Calcium [Mass/Vol] 10.1 mg/dL Normal 7.6-11.0 [facility] Comment on above: Performed By: #### L 500.4050, L100.0100, L503.7505 ####[facility] [address] [place], [address] Chloride [Moles/Vol] 107 mmol/L Normal 98-108 [facility] Comment on above: Performed By: #### L 500.4050, L100.0100, L503.7505 ####[facility] [address] [place], [address] CO2 [Moles/Vol] 21.7 mmol/L Normal 21.0-32.[address] [facility] Comment on above: Performed By: #### L 500.4050, L100.0100, L503.7505 ####[facility] [address] [place], [address] Creatinine [Mass/Vol] 1.43 mg/dL High 0.70-1.20 [facility] Comment on above: Performed By: #### L 500.4050, L100.0100, L503.7505 ####[facility] [address] [place], [address] ECRCL 30.00 ml/min Low 50-[address] [facility] Comment on above: Performed By: #### L 500.4050, L100.0100, L503.7505 ####[facility] [address] [place], [address] GAP 11 Normal 5-[address] [facility] Comment on above: Performed By: #### L 500.4050, L100.0100, L503.7505 ####[facility] [address] [place], [address] GFR/1.73 sq M.predicted among non-blacks MDRD (S/P/Bld) [Vol rate/Area] 36 mL/min/{1.73_m2} Low >[address] [facility] Comment on above: Result Comment: mL/m in/1.73m2 CKD-EPI Creatinine Equation (2020) Performed By: #### L 500.4050, L100.0100, L503.7505 ####[facility] [address] [place], [address] Globulin (S) [Mass/Vol] 2.9 g/dL Normal 2.2-4.[address] [facility] Comment on above: Performed By: #### L 500.4050, L100.0100, L503.7505 ####[facility] [address] [place], [address] Glucose [Mass/Vol] 136 mg/dL High 70-99 [facility] Comment on above: Performed By: #### L 500.4050, L100.0100, L503.7505 ####[facility] [address] [place], [address] Potassium [Moles/Vol] 4.5 mmol/L Normal 3.3-5.1 [facility] Comment on above: Performed By: #### L 500.4050, L100.0100, L503.7505 ####[facility] [address] [place], [address] Sodium [Moles/Vol] 139 mmol/L Normal 133-145 [facility] Comment on above: Performed By: #### L 500.4050, L100.0100, L503.7505 ####[facility] [address] [place], [address] T PROT 7.1 g/dL Normal 5.9-8.[address] [facility] Comment on above: Performed By: #### L 500.4050, L100.0100, L503.7505 ####[facility] [address] [place], [address] Urea nitrogen [Mass/Vol] 23 mg/dL High 4-[address] [facility] Comment on above: Performed By: #### L 500.4050, L100.0100, L503.7505 ####[facility] [address] [place], [address] Emergency Department Summary on 02-22-2025 Emergency Department Summary Normal [facility] Eosinophil percentageOrdered By: Minor Izaguirre on 02-22-2025 Eosinophils/100 WBC (Bld) 1.1 % 0-[address] [facility] Erythrocyte distribution wid th ratioOrdered By: Minor Izaguirre on 02-22-2025 Erythrocyte distribution width (RBC) [Ratio] 14.5 % 11.6-14.[address] [facility] Erythrocyte distribution wid th standard deviationOrdered By: Minor Izaguirre on 02-22-2025 Erythrocyte distribution width (RBC) [Ratio] 49.3 fl High 35.1-43.[address] [facility] Glomerular filtration rate ( GFR) estimation/1.73 sq m using serum, plasma, or whole bOrdered By: Minor Izaguirre on 02-22-2025 GFR/1.73 sq M.predicted among non-blacks MDRD (S/P/Bld) [Vol rate/Area] 36 mL/min/{1.73_m2} Low >[address] [facility] Comment on above: mL/min/1.73m2 CKD-EP I Creatinine Equation (2020) Hematocrit Auto (Bld) [Volum e fraction]Ordered By: Minor Izaguirre on 02-22-2025 Hematocrit (Bld) [Volume fraction] 31.7 % Low 37-[address] [facility] Hemoglobin measurementOrdere d By: Minor Izaguirre on 02-22-2025 Hemoglobin (Bld) [Mass/Vol] 9.8 g/dL Low 12.0-15.[address] [facility] Immature granulocytes/100 WB C Auto (Bld)Ordered By: Minor Izaguirre on 02-22-2025 Immature granulocytes/100 WBC (Bld) 0.400 % 0.0-0.[address] [facility] Comment on above: IG% - Immature Granu locytes (promyelocytes, myelocytes and metamyelocytes) > 1% indicates that a LEFT SHIFT is Present. L503.7505on 02-22-2025 Natriuretic peptide B (Bld) [Mass/Vol] 1691 pg/mL Normal <=[address] [facility] Comment on above: Result Comment: Hear t Failure Unlikely: < 300 pg/mLHeart Failure Likely< 50 Years: > 450 pg/mL50-75 Years: > 900 pg/mL>75 Years: > 1800 pg/mL Performed By: #### L 500.4050, L100.0100, L503.7505 ####[facility] [address] [place], [address] Laboratory - Chemistry and C hemistry - challengeOrdered By: Minor Izaguirre on 02-22-2025 AST [Catalytic activity/Vol] 23 U/L <[address] [facility] MCV (mean corpuscular volume ) determinationOrdered By: Minor Izaguirre on 02-22-2025 MCV (RBC) [Entitic vol] 93.2 fL 81-[address] [facility] Mean corpuscular hemoglobin (MCH) determinationOrdered By: Minor Izaguirre on 02-22-2025 MCH (RBC) [Entitic mass] 28.8 pg 27.0-32.[address] [facility] Mean corpuscular hemoglobin concentration (MCHC) determinationOrdered By: Minor Izaguirre on 02-22-2025 MCHC (RBC) [Mass/Vol] 30.9 g/dL Low 32-36 [facility] Mean platelet volume determi nationOrdered By: Minor Izaguirre on 02-22-2025 Platelet mean volume (Bld) [Entitic vol] 9.9 fL 6.2-12.[address] [facility] Monocyte percentageOrdered B y: Minor Izaguirre on 02-22-2025 Monocytes/100 WBC (Bld) 8.1 % 0-[address] [facility] Natriuretic peptide.B prohor eduardo N-Terminal [Mass/volume] in Serum or PlasmaOrdered By: Minor Izaguirre on 02-22-2025 Natriuretic peptide.B prohormone N-Terminal [Mass/Vol] 1691 pg/mL <[address] [facility] Comment on above: Heart Failure Unlike ly: < 300 pg/mLHeart Failure Likely< 50 Years: > 450 pg/mL50-75 Years: > 900 pg/mL>75 Years: > 1800 pg/mL Neutrophil percentageOrdered By: Minor Izaguirre on 02-22-2025 Neutrophils/100 WBC (Bld) 75.0 % High 47-[address] [facility] No Panel InformationOrdered By: Minor Izaguirre on 02-22-2025 23 U/L <[address] [facility] Nucleated red blood cell per centageOrdered By: Minor Izaguirre on 02-22-2025 Nucleated RBC/100 WBC (Bld) [Ratio] 0 % 0-[address] [facility] Platelet countOrdered By: Bandar Izaguirre on 02-22-2025 Platelets (Bld) [#/Vol] 210 10*3/uL 150-[address] [facility] Potassium measurement (mass/ volume)Ordered By: Minor Izaguirre on 02-22-2025 Potassium (Unsp spec) [Mass/Vol] 4.5 mmol/L 3.3-5.[address] [facility] RBC Auto (Bld) [#/Vol]Ordere d By: Minor Izaguirre on 02-22-2025 RBC (Bld) [#/Vol] 3.40 10*6/uL Low 4.2-5.4 [facility] Serum creatinine measurement (mass/volume)Ordered By: Minor Izaguirre on 02-22-2025 Creatinine [Mass/Vol] 1.43 mg/dL High 0.70-1.20 [facility] Serum globulin measurementOr dered By: Minor Izaguirre on 02-22-2025 Globulin (S) [Mass/Vol] 2.9 g/dL 2.2-4.[address] [facility] Serum glucose measurement (m ass/volume)Ordered By: Minor Izaguirre on 02-22-2025 Glucose [Mass/Vol] 136 mg/dL High 70-99 [facility] Serum or plasma alanine riojas otransferase (ALT) measurementOrdered By: Minor Izaguirre on 02-22-2025 ALT [Catalytic activity/Vol] 18 U/L <[address] [facility] Serum or plasma albumin rema urement (mass/volume)Ordered By: Minor Izaguirre on 02-22-2025 Albumin [Mass/Vol] 4.2 g/dL 3.4-4.8 [facility] Serum or plasma albumin/glob ulin mass ratioOrdered By: Minor Izaguirre on 02-22-2025 Albumin/Globulin [Mass ratio] 1.4 {ratio} 0.9-2.[address] [facility] Serum or plasma alkaline mayra sphatase measurementOrdered By: Minor Izaguirre on 02-22-2025 ALP [Catalytic activity/Vol] 99 U/L 35-104 [facility] [place] [facility] Serum or plasma calcium rema urement (mass/volume)Ordered By: Minor Izaguirre on 02-22-2025 Calcium [Mass/Vol] 10.1 mg/dL 7.6-11.0 [facility] Serum or plasma urea nitroge n measurement (mass/volume)Ordered By: Minor Izaguirre on 02-22-2025 Urea nitrogen [Mass/Vol] 23 mg/dL High 4-[address] [facility] Sodium levelOrdered By: Nelson Izagiurre on 02-22-2025 Sodium [Moles/Vol] 139 mmol/L 133-145 [facility] Tibia Fibula 2 Viewson 02-22 Tibia Fibula 2 Views Normal [facility] Total proteinOrdered By: Tiana Izaguirre on 02-22-2025 Protein [Mass/Vol] 7.1 g/dL 5.9-8.4 [facility] White blood cell (WBC) count Ordered By: Minor Izaguirre on 02-22-2025 WBC (Bld) [#/Vol] 5.5 10*3/uL 4.4-11.0 [facility] CNOVon 02-07-2025 CNOV Office Visit (CARD P ) LYNETTE ANGULO ([id number]) 1940 F Date Time Provider Department 02/07/25 10:00 AM DOMENIC SERRANO During your visit today, we recorded the following information about you: Pulse Blood pressure Weight Height 58/minute 137/57 89.4 kg 1.524 m Domenic Serrano APRN.CNP 02/07/2025 2:39 PM Addendum [facility] [place] [facility] Department of Cardiovascular Medicine SECTION OF PREVENTIVE CARDIOLOGY 02/07/2025 Lynette Angulo CURRENT MEDS: Current Outpatient Medications Medication Sig furosemide (LASIX) 20 mg tablet Take 1 tablet by mouth once daily. atorvastatin (LIPITOR) 20 mg tablet Take 1 tablet by mouth once daily. amLODIPine (NORVASC) 10 mg tablet Take 1 tablet by mouth once daily. carvedilol (COREG) 25 mg tablet Take 1 tablet by mouth two times a day with meals. doxazosin (CARDURA) 4 mg tablet Take 1 tablet by mouth daily at bedtime. olmesartan (BENICAR) 40 mg tablet Take 1 tablet by mouth once daily. isosorbide mononitrate ER (IMDUR) 30 mg 24 hr tablet Take 1 tablet by mouth once daily. apixaban (ELIQUIS) 2.5 mg tab(s) Take 1 tablet by mouth two times a day. clopidogrel (PLAVIX) 75 mg tablet Take 1 tablet by mouth once daily. Patient should start on May 15, 2024. glimepiride (AMARYL) 1 mg tablet Take 1 tablet by mouth daily with breakfast. colchicine 0.6 mg tablet Take 1 tablet by mouth every other day. finerenone (KERENDIA) 10 mg tablet q 24 HR. omega 8-qxc-ipz-fish oil 360 mg-108 mg- 180 mg-1,200 mg cap q 24 HR. vibegron (GEMTESA) 75 mg tablet Take 1 tablet by mouth once daily. Cranberry 500 mg cap Take 1 capsule by mouth once daily. Ascorbic Acid 500 mg cpER Take by mouth once daily. cinnamon bark (CINNAMON ORAL) Take by mouth. Take 2,00mg daily. cholecalciferol (VITAMIN D3) 5,000 unit tab Take 5,000 Units by mouth once daily. pantoprazole DR (PROTONIX) 40 mg tablet TAKE 1 TABLET BY MOUTH ONCE DAILY AT 6 AM levothyroxine (SYNTHROID) 125 mcg tablet Take 125 mcg by mouth once daily. latanoprost (XALATAN) 0.005 % ophthalmic solution Use 1 Drop in both eyes daily at bedtime. No current facility-administered medications for this visit. ALLERGIES: ALLERGIES Allergen Reactions Darvon [Propoxyphen* Shortness of Breath, Other: See Comments No strength, bad dreams Iodine Anaphylaxis 12/24/23- pt. premedicated with 13 hrs, had CT scan with IV contrast. Patient denied any s/s of SOB, difficulty breathing, wheezing, itching or rash. Lotensin [Benazepri* Vomiting, Other: See Comments Coughing Rivaroxaban Other: See Comments Developed pericardial effusion Shellfish Anaphylaxis Shellfish Containin* Anaphylaxis, Shortness of Breath Spironolactone Other: See Comments Weak, made calcium level high, heart rate 20BPM Adhesive Rash Celecoxib Other: See Comments Due to kidneys Demeral [Meperidine] Vomiting Hydrochlorothiazide Other: See Comments Metformin Other: See Comments Metoprolol Shortness of Breath Penicillins Hives Simvastatin Myalgia, Other: See Comments Sitagliptin Other: See Comments CHIEF COMPLAINT: Lynette Angulo is a 85 year old White female seen today. Patient presents with: Follow Up High blood pressure HISTORY OF PRESENT CARDIOVASCULAR ILLNESS: Patient presents for ongoing management of cardiovascular risk factors--specifically blood pressure,stage 4 CKD, proteinuria. Dr Cifuentes patient. Sent to ER with high K 6.2 11/16/2024. Hospitalized two days. Karendia was stopped and olmesartan was decreased to 20mg. Sees nephrology next week. 84 year old female with a PMH significant for pericarditis, type 2 diabetes mellitus, SSS (status post PPM), aortic stenosis, 02/09/24 TAVR, hx of atrial fibrillation/flutter,CAD with cath 05/14/24 which showed 60 to 70% ostial RCA s/p drug coated Paclitaxel balloon, cutting balloon as well as IVL with shock wave therapy and 60% ostial D2 with moderate disease in mid LAD and OM1, diastolic HF. Has follow up with Yonis later this month. TTE 04/16/24: EF 59%, 1.2/0.9, mod dil LA, 1+ MR, 2+ TR, Balderas S3 Ultra prosthetic valve size #23, pk/mean AV grad 24/15, peak AV abdullahi 245 cm/s, trace-1+[place], asc Ao 3.3 cm, RVSP 40 mmHg Previously seen by Dr. Suazo 06/24/[address] Shetty 05/11/2024. Est care 11/09/[address] Clemnets (now following with instead of Diogenes) for cardiology. Has had falls-fell last week, slipper caught in plastic pad. States R leg feels swollen and hot since fall, also painful in calf. States has been off colchicine for 6 months (on for pericarditis previously). Is not taking isosorbide mononitrate prescribed per Starr's service for shortness of breath in the event it was a anginal equivalent. She was afraid it would lover blood pressure too much. Home BPs -does not take often Most if goes up later in (more content not included)... Normal [facility] LEG VEIN DVT [facility] n 02-07-2025 LEG VEIN DVT [facility] Non-Invasive Vascular Laboratory Main [place] J[facility] Lower Extremity Venous Duplex Bilateral/Complete Date of service/time: 02/07/2025 11:08:36 AM Name: MS. LYNETTE ANGULO Date of : 1940 Age: 85 years Gender: F Clinical Indication Bilateral leg swelling and right leg pain. TECHNIQUE -------- A venous duplex ultrasound examination was performed, including grayscale imaging with compression maneuvers and color Doppler and spectral Doppler examination with augmentation maneuvers and response to respiration of the below mentioned veins. FINDINGS -------- RIGHT SIDE Distal external iliac vein Doppler: normal flow. Compression: normal. Common femoral vein Doppler: normal flow. Compression: normal. Femoral vein Doppler: normal flow. Compression: normal. Popliteal vein Doppler: normal flow. Compression: normal. Posterior tibial veins Compression: normal. Peroneal veins Compression: normal. Great saphenous vein Compression: normal. Small saphenous vein Compression: normal. LEFT SIDE Distal external iliac vein Doppler: normal flow. Compression: normal. Common femoral vein Doppler: normal flow. Compression: normal. Femoral vein Doppler: normal flow. Compression: normal. Popliteal vein Doppler: normal flow. Compression: normal. Posterior tibial veins Compression: normal. Peroneal veins Compression: normal. Great saphenous vein Compression: normal. Small saphenous vein Compression: normal. IMPRESSION RIGHT SIDE - DEEP VEINS Negative for acute deep vein thrombosis. Only segments visualized of the posterior tibial veins and peroneal veins. LEFT SIDE - DEEP VEINS Negative for acute deep vein thrombosis. Technologist: Estela Spencer T Ordering physician: DOMENIC SERRANO Interpreting physician: Sacha Moran MD Final CC [employer] [facility] : [id number] See Link below for Image Normal [facility] Lower extremity veins - b ilateralon 02-07-2025 Non-Invasive Vascular Laboratory [facility] [place] J[facility] Lower Extremity Venous Duplex Bilateral/Complete Date of service/time: 02/07/2025 11:08:36 AM Name: MS. LYNETTE ANGULO Date of : 1940 Age: 85 years Gender: F Clinical Indication Bilateral leg swelling and right leg pain. TECHNIQUE -------- A venous duplex ultrasound examination was performed, including grayscale imaging with compression maneuvers and color Doppler and spectral Doppler examination with augmentation maneuvers and response to respiration of the below mentioned veins. FINDINGS -------- RIGHT SIDE Distal external iliac vein Doppler: normal flow. Compression: normal. Common femoral vein Doppler: normal flow. Compression: normal. Femoral vein Doppler: normal flow. Compression: normal. Popliteal vein Doppler: normal flow. Compression: normal. Posterior tibial veins Compression: normal. Peroneal veins Compression: normal. Great saphenous vein Compression: normal. Small saphenous vein Compression: normal. LEFT SIDE Distal external iliac vein Doppler: normal flow. Compression: normal. Common femoral vein Doppler: normal flow. Compression: normal. Femoral vein Doppler: normal flow. Compression: normal. Popliteal vein Doppler: normal flow. Compression: normal. Posterior tibial veins Compression: normal. Peroneal veins Compression: normal. Great saphenous vein Compression: normal. Small saphenous vein Compression: normal. IMPRESSION RIGHT SIDE - DEEP VEINS Negative for acute deep vein thrombosis. Only segments visualized of the posterior tibial veins and peroneal veins. LEFT SIDE - DEEP VEINS Negative for acute deep vein thrombosis. Technologist: Estela Spencer Keyshawn Ordering physician: DOMENIC SERRANO Interpreting physician: Sacha Moran MD Final See Link below for Image [facility] [place] Anion gap in Serum or Plasma Ordered By: Ros Nice on 02-05-2025 Anion gap [Moles/Vol] 13 mmol/L 02-10 [facility] BUN/creatinine ratioOrdered By: Ros Nice on 02-05-2025 Urea nitrogen/Creatinine [Mass ratio] 18.5 mg/mg 07-[address] [facility] Carbon dioxide, total [Moles /volume] in Central venous bloodOrdered By: Ros Nice on 02-05-2025 CO2 [Moles/Vol] 21.9 mmol/L 21.0-32.[address] [facility] Chloride assayOrdered By: Markos Nice on 02-05-2025 Chloride [Moles/Vol] 103 mmol/L 98-108 [facility] Glomerular filtration rate ( GFR) estimation/1.73 sq m using serum, plasma, or whole bOrdered By: Ros Nice on 02-05-2025 GFR/1.73 sq M.predicted among non-blacks MDRD (S/P/Bld) [Vol rate/Area] 27 mL/min/{1.73_m2} Low >[address] [facility] Comment on above: mL/min/1.73m2 CKD-EP I Creatinine Equation (2020) Potassium measurement (mass/ volume)Ordered By: Ros Nice on 02-05-2025 Potassium (Unsp spec) [Mass/Vol] 3.8 mmol/L 3.3-5.[address] [facility] Renal Profileon 02-05-2025 Albumin [Mass/Vol] 4.1 g/dL Normal 3.4-4.8 [facility] Comment on above: Performed By: #### L 500.3600 ####[facility] [address] [place], [place], [id number] BUN/CRE 18.5 RATIO Normal 07-[address] [facility] Comment on above: Performed By: #### L 500.3600 ####[facility] [address] [place], [address] Calcium [Mass/Vol] 10.1 mg/dL Normal 7.6-11.0 [facility] Comment on above: Performed By: #### L 500.3600 ####[facility] [address] [place], [address] Chloride [Moles/Vol] 103 mmol/L Normal 98-108 [facility] Comment on above: Performed By: #### L 500.3600 ####[facility] [address] [place], [address] CO2 [Moles/Vol] 21.9 mmol/L Normal 21.0-32.[address] [facility] Comment on above: Performed By: #### L 500.3600 ####[facility] [address] [place], [address] Creatinine [Mass/Vol] 1.81 mg/dL High 0.70-1.20 [facility] Comment on above: Performed By: #### L 500.3600 ####[facility] [address] [place], [address] GAP 13 Normal 5-[address] [facility] Comment on above: Performed By: #### L 500.3600 ####[facility] [address] [place], [address] GFR/1.73 sq M.predicted among non-blacks MDRD (S/P/Bld) [Vol rate/Area] 27 mL/min/{1.73_m2} Low >[address] [facility] Comment on above: Result Comment: mL/m in/1.73m2 CKD-EPI Creatinine Equation (2020) Performed By: #### L 500.3600 ####[facility] [address] [place], [address] Glucose [Mass/Vol] 113 mg/dL High 70-99 [facility] Comment on above: Performed By: #### L 500.3600 ####[facility] [facility] [id number] [place], [address] Phosphate [Mass/Vol] 3.5 mg/dL Normal 2.7-4.5 [facility] Comment on above: Performed By: #### L 500.3600 ####[facility] [address] [place], [address] Potassium [Moles/Vol] 3.8 mmol/L Normal 3.3-5.1 [facility] Comment on above: Performed By: #### L 500.3600 ####[facility] [address] [place], [address] Sodium [Moles/Vol] 138 mmol/L Normal 133-145 [facility] Comment on above: Performed By: #### L 500.3600 ####[facility] [address] [place], [address] Urea nitrogen [Mass/Vol] 34 mg/dL High 4-[address] [facility] Comment on above: Performed By: #### L 500.3600 ####[facility] [address] [place], [address] Serum creatinine measurement (mass/volume)Ordered By: Ros Nice on 02-05-2025 Creatinine [Mass/Vol] 1.81 mg/dL High 0.70-1.20 [facility] Serum glucose measurement (m ass/volume)Ordered By: Ros Nice on 02-05-2025 Glucose [Mass/Vol] 113 mg/dL High 70-99 [facility] Serum or plasma albumin rema urement (mass/volume)Ordered By: Ros Nice on 02-05-2025 Albumin [Mass/Vol] 4.1 g/dL 3.4-4.8 [facility] Serum or plasma calcium rema urement (mass/volume)Ordered By: Ros Nice on 02-05-2025 Calcium [Mass/Vol] 10.1 mg/dL 7.6-11.0 [facility] Serum or plasma urea nitroge n measurement (mass/volume)Ordered By: Ros Nice on 02-05-2025 Urea nitrogen [Mass/Vol] 34 mg/dL High 4-[address] [facility] Sodium levelOrdered By: Victoria Nice on 02-05-2025 Sodium [Moles/Vol] 138 mmol/L 133-145 [facility] Surgery Visit Reporton 02-01 Surgery Visit Report Normal [facility]isc[facility] Normal . [facility] Comment on above: Order Comment: [id number] 4STOOL CULTURE Result Comment: SVETLANA Ward CULTURESalmonella/Shigella Screen Final ReportResult 1 No Salmonella or Shigella recovered.Campylobacter Culture Final ReportResult 1 No Campylobacter species isolated.E. coli Shiga Toxin EIA Negative __ TESTING PERFORMED AT [facility]. ORIGINAL REPORT ON FILE IN LAB CONTAINS ADDITIONAL TEST SITE INFORMATION. Performed at: [address] [id number] Director: Vivek Cabezas PhD, Phone: [phone] AMENDED REPORT 01/13/25 1557 [facility]. previously reported as: COMMENTPerformed at: [address] [id number] Director: Vivek Cabezas PhD, Phone: [phone] Performed By: #### M 100.6796, L3410.9998 ####[facility] [address] [place], [place], [address] Basic metabolic 2000 panelon 01-07-2025 Anion gap [Moles/Vol] 8 mmol/L Normal 8-15 [facility] Comment on above: Order Comment: Speci men Type: BLOOD SPECIMENOrdering Facility: [facility] Address: [address] [place] [address] Performed By: #### 1 9123-9, ####[facility] SHANIKA CASNEERU [id number] [place] [address] [place] Calcium [Mass/Vol] 10.3 mg/dL High 8.5-10.2 [facility] Comment on above: Order Comment: Speci men Type: BLOOD SPECIMENOrdering Facility: [facility] Address: [address] [place] [address] Performed By: #### 1 9123-9, ####[facility] SHANIKA CASNEERU [id number] [place] [address] [place] Chloride [Moles/Vol] 107 mmol/L Normal 98-107 [facility] Comment on above: Order Comment: Speci men Type: BLOOD SPECIMENOrdering Facility: [facility] Address: [address] [place] [address] Performed By: #### 1 91239, ####[facility]ELIC[facility] [id number] [place] [address] [place] CO2 [Moles/Vol] 25 mmol/L Normal 22-30 [facility] Comment on above: Order Comment: Speci men Type: BLOOD SPECIMENOrdering Facility: [facility] Address: [address] [place] [address] Performed By: #### 1 9123-9, 75686-9 ####[facility] [id number] [place] [address] [place] Creatinine [Mass/Vol] 1.31 mg/dL High 0.58-0.96 [facility] Comment on above: Order Comment: Speci men Type: BLOOD SPECIMENOrdering Facility: [facility] Address: [address] [place] [address] Performed By: #### 1 9123-9, 29275-2 ####[facility] [id number] [place] [address] [place] Creatinine and Glomerular filtration rate.predicted panel (S/P/Bld) 40 mL/min/1.73m??? Low >=60 [facility] Comment on above: Order Comment: Nikolai de luna Type: BLOOD SPECIMENOrdering Facility: [facility] Address: [address] [place] [address] Result Comment: Raina mated Glomerular Filtration Rate (eGFR) is calculated using the 2020 CKD-EPI creatinine equation. This equation utilizes serum creatinine, sex, and age as parameters. The creatinine assay has traceable calibration to isotope dilution-mass spectrometry. Refer to KDIGO guidelines for clinical interpretation. In patients with unstable renal function, e.g. those with acute kidney injury, the eGFR may not accurately reflect actual GFR. Performed By: #### 1 9123-9, 52017-0 ####[facility] [id number] [place] [address] [place] Glucose [Mass/Vol] 141 mg/dL High 74-99 [facility] Comment on above: Order Comment: Nikolai de luna Type: BLOOD SPECIMENOrdering Facility: [facility] Address: [address] [place] [address] Result Comment: The [place] Diabetes Association (ADA) provides guidance for cutoff values for fasting glucose and random glucose. The ADA defines fasting as no caloric intake for at least 8 hours. Fasting plasma glucose results between 100 to 125 mg/dL indicate increased risk for diabetes (prediabetes). Fasting plasma glucose results greater than or equal to 126 mg/dL meet the criteria for diagnosis of diabetes. In the absence of unequivocal hyperglycemia, results should be confirmed by repeat testing. In a patient with classic symptoms of hyperglycemia or hyperglycemic crisis, random plasma glucose results greater than or equal to 200 mg/dL meet the criteria for diagnosis of diabetes. Reference: Standards of Medical Care in Diabetes 2016, [place] Diabetes Association. Diabetes Care. 2016.39(Suppl 1). Performed By: #### 1 91239, ####[facility]ITAL[facility]CLIA [id number] [place] [address] [place] Potassium [Moles/Vol] 4.1 mmol/L Normal 3.7-5.1 [facility] Comment on above: Order Comment: Speci men Type: BLOOD SPECIMENOrdering Facility: [facility] Address: [address] [place] [address] Performed By: #### 1 91239, 28636-6 ####[facility] [id number] [place] [address] [place] Sodium [Moles/Vol] 140 mmol/L Normal 136-144 [facility] Comment on above: Order Comment: Speci men Type: BLOOD SPECIMENOrdering Facility: [facility] Address: [address] [place] [address] Performed By: #### 1 9123, 32251-4 ####[facility] [id number] [place] [address] [place] Urea nitrogen [Mass/Vol] 30 mg/dL High 7-21 [facility] Comment on above: Order Comment: Speci men Type: BLOOD SPECIMENOrdering Facility: [facility] Address: [address] [place] [address] Performed By: #### 1 91239, 82331-7 ####[facility] [id number] [place] [address] [place] CDIFF (PCR)on 01-07-2025 CDIFF Pending 027 027 NAP1-B1 Presumptive Negative *for epidemiolologic???use C. Diff PCR Negative- No toxigenic C. Diff Detected Normal [facility] Comment on above: Performed By: #### M 100.6796, L3410.9998 ####[facility] [address] [place], [place], [id number] Clostridium difficile detect ion by polymerase chain reactionOrdered By: Janeth Landis on 01-07-2025 C. difficile DNA ALEXANDRE+probe Ql (Unsp spec) [facility] Magnesium [facility] 01-07 Magnesium [Mass/Vol] 1.9 mg/dL Normal 1.7-2.3 [facility] Comment on above: Order Comment: Speci men Type: BLOOD SPECIMENOrdering Facility: [facility] Address: [address] [place] [address] Performed By: #### 1 9123-9, 29455-4 ####[facility] [id number] [address] [place] NT-proBNP [facility] 01-07 Natriuretic peptide.B prohormone N-Terminal [Mass/Vol] 1304 pg/mL High <450 [facility] Comment on above: Order Comment: Speci men Type: BLOOD SPECIMENOrdering Facility: [facility] Address: [address] [place] [address] Performed By: #### 3 3762-6 ####[facility] LABCL[facility] [id number] [address] STATES OF [facility] No Panel InformationOrdered By: Janeth Landis on 01-07-2025 Miscellaneous Test COMMENT . [facility] Comment on above: STOOL CULTURESalmone lla/Shigella Screen Final ReportResult 1 No Salmonella or Shigella recovered.Campylobacter Culture Final ReportResult 1 No Campylobacter species isolated.E. coli Shiga Toxin EIA Negative __ TESTING PERFORMED AT [facility]. ORIGINAL REPORT ON FILE IN LAB CONTAINS ADDITIONAL TEST SITE INFORMATION. Performed at: [address] [id number] Director: Vivek Cabezas PhD, Phone: [phone] reported result: COMMENT Edited by: MATHEUS on 01/13/25:1557 AMENDED REPORT 01/13/25 1557 [facility] previously reported as: COMMENT Performed at: [address] [id number] Director: Vivek Cabezas PhD, Phone: [phone] COMMENT . [facility] Surgery Visit Reporton 01-05 Surgery Visit Report Normal [facility] CNOVon 01-04-2025 CNOV Office Visit (CARDMM ) LYNETTE ANGULO ([id number]) 1940 F Date Time Provider Department 01/04/25 11:30 AM MERA HUDSON During your visit today, we recorded the following information about you: Pulse Blood pressure Weight 60/minute 128/70 93.3 kg Mera Hudson, WINDER FIXER.[facility] 01/04/2025 1:13 PM [facility] [place] Fercho Reina Department of Cardiovascular Medicine SECTION OF CLINICAL CARDIOLOGY OUTPATIENT VISIT DATE January 04, 2025 OUTPATIENT VISIT TYPE ESTABLISHED PRIMARY CARE PHYSICIAN: Jorge Benavides [address] [place] [address] CHIEF COMPLAINT: Follow up HISTORY OF PRESENT ILLNESS: Ms. Angulo is a 84 year old female with history of CAD s/p PCI/MARGY to RCA (04/2024), aortic stenosis s/p TAVR (01/2024), pericarditis, SSS s/p PPM (09/2017), LBBB, paroxysmal atrial fibrillation, chronic diastolic heart failure, HTN, HLD, CLIFFORD, T2DM, and thyroid disease who presents today for a cardiovascular medicine follow-up visit. She was last seen in the office by Dr. Clements on 11/09/24 at which time she noted continued shortness of breath with daily activities unchanged from symptoms since her prior LHC and TAVR last year. She additionally noted significant left knee pain limiting her ability to exercise. She was started on Imdur 30 mg daily for possible anginal equivalent. Her cholesterol was additionally noted not to be at goal for which her lovastatin was changed to atorvastatin 40 mg daily. Plan was for repeat FLP/LFTs in 4 to 6 weeks and follow-up thereafter. Subsequently found to have hyperkalemia of 6.2 on lab work for which she was evaluated in the emergency department. Since her last office visit she has continued to have shortness of breath with exertion such as walking back to the exam room today. She reports this has been ongoing since her TAVR and PCI in 2023 and is unchanged. She has only taken a few doses of the previously prescribed Imdur as she was nervous it would be too much with her other blood pressure pills. On the days that she did take the Imdur she did not have any lightheadedness nor did she note any improvement in her breathing. She additionally is only taking 20 mg of atorvastatin as she was nervous she would not tolerate the recommended higher dose. About a week ago she began noting worsening lower extremity edema. She periodically weighs herself at home and notes she has been gaining weight. She also feels like her abdomen is tight. She is prescribed Lasix 10 mg daily but as not been taking this for at least 8 months now. She denies any orthopnea or PND. Subjective PAST MEDICAL HISTORY Diagnosis Date Anemia Aortic stenosis Atrial fibrillation (HCC) Atrial flutter (HCC) Bradycardia Cancer (HCC) thyroid Chronic kidney disease Diabetes (HCC) Gout Heart attack (HCC) HLD (hyperlipidemia) Hypertension Pericardial effusion Recurrent UTI Sleep apnea CPAP SSS (sick sinus syndrome) (HCC) Thyroid disease PAST SURGICAL HISTORY Procedure Laterality Date APPENDECTOMY HX CATARACT SURGERY, COMPLEX HYSTERECTOMY HX PPM DUAL 2018 THYROIDECTOMY TOTAL/COMPLETE Parathyroid removal TOTAL KNEE REPLACEMENT Left x2- one revision Social History Tobacco Use Smoking status: Never Smokeless tobacco: Never Vaping Use Vaping status: Never Used Substance Use Topics Alcohol use: No Drug use: Never FAMILY HISTORY Problem Relation Age of Onset Uterine Cancer Mother Hypertension Father Lung Cancer Father other (Vascular) Son Hypertension Son ALLERGIES: ALLERGIES Allergen Reactions Darvon [Propoxyphen* Shortness of Breath, Other: See Comments No strength, bad dreams Iodine Anaphylaxis 12/24/23- pt. premedicated with 13 hrs, had CT scan with IV contrast. Patient denied any s/s of SOB, difficulty breathing, wheezing, itching or rash. Lotensin [Benazepri* Vomiting, Other: See Comments Coughing Rivaroxaban Other: See Comments Developed pericardial effusion Shellfish Anaphylaxis Shellfish Containin* Anaphylaxis, Shortness of Breath Spironolactone Other: See Comments Weak, made calcium level high, heart rate 20BPM Adhesive Rash Celecoxib Other: See Comments Due to kidneys Demeral [Meperidine] Vomiting Hydrochlorothiazide Other: See Comments Metformin Other: See Comments Metoprolol Shortness of Breath Penicillins Hives Simvastatin Myalgia, Other: See Comments Sitagliptin Other: See Comments MEDICATIONS: amLODIPine (NORVASC) 10 mg tablet Take 1 tablet by mouth once daily. carvedilol (COREG) 25 mg tablet Take 1 tablet by mouth two times a day with meals. doxazosin (CARDURA) 4 mg tablet Take 1 tablet by mouth daily at bedtime. olmesartan (BENICAR) 40 mg tablet Take 1 tablet by mouth once daily. isosorbide m (more content not included)... Normal [facility] M7400.3302on 12-29-2024 M7400.3302 [facility] Comment on above: Performed By: #### L 7000.0750, L3410.9998, M7400.3302, M100.7900, L7000.0700, M100.0605, M600.5000 ####[facility] [address] [place], [place], [id number] Ova and Parasites 8623on OP [facility] Comment on above: Performed By: #### L 7000.0750, L3410.9998, M7400.3302, M100.7900, L7000.0700, M100.0605, M600.5000 ####[facility] [address] [place], [place], [id number] Calprotectin, Stoolon [address] 123 ug/g Abnormal 0-[address] [facility] Comment on above: Result Comment: Conc entration Interpretation Follow-Up< 5 - 50 ug/g Normal None>50 -120 ug/g Borderline Re-evaluate in 4-6 weeks >120 ug/g Abnormal Repeat as clinically indicatedPerformed at: [facility] Lab[address] [id number] Director: Darci Rodriguez MD, Phone: [phone] Performed By: #### L 7000.0750, L3410.9998, M7400.3302, M100.7900, L7000.0700, M100.0605, M600.5000 ####[facility] [address] [place], [place], [id number] L3410.9998on 12-24-2024 [facility] Misc. COMMENT Normal . [facility] Comment on above: Order Comment: SAMPL E REJECTED AT [facility]. SAMPLE [facility] CARRANZA AT [facility] AND IS CALLING PT BACK TO BRING BACK NEW SAMPLE. 12/30/24 [id number] CULTURE Result Comment: SHOAIB [place] REJECTED AT [facility]. SAMPLE [facility] AND IS CALLING PT BACK TO BRING BACK NEW SAMPLE. 12/30/24 0841Performed at: [facility] [id number] Director: Vivek Cabezas PhD, Phone: [phone] Performed By: #### L 7000.0750, L3410.9998, M7400.3302, M100.7900, L7000.0700, M100.0605, M600.5000 ####[facility] [address] [place], [place], [id number] L7000.0750on 12-24-2024 P ELASTASE,FECA 575 Normal >[address] [facility] Comment on above: Result Comment: Resu lt Units: ug Elast./g Severe Pancreatic Insufficiency: <100 Moderate Pancreatic Insufficiency: 100 - 200 Normal: >200Performed at: - [facility] [id number] Director: Darci Rodriguez MD, Phone: [phone] Performed By: #### L 7000.0750, L3410.9998, M7400.3302, M100.7900, L7000.0700, M100.0605, M600.5000 ####[facility] [address] [place], [place], [phone] Hepatic function 2000 panelo n 12-23-2024 Albumin [Mass/Vol] 4.1 g/dL Normal 3.9-4.9 [facility] Comment on above: Order Comment: Speci men Type: BLOOD SPECIMENOrdering Facility: [facility] Address: [address] [place] [address] Performed By: #### 2 4325-3 ####[facility]CLIA [id number] [place] [address] [place] ALP [Catalytic activity/Vol] 100 U/L Normal 34-123 [facility] Comment on above: Order Comment: Speci men Type: BLOOD SPECIMENOrdering Facility: [facility] Address: [address] [place] [address] Performed By: #### 2 4325-3 ####[facility]ITAL[facility]CLIA [id number] [place] [address] [place] ALT [Catalytic activity/Vol] 12 U/L Normal 7-38 [facility] Comment on above: Order Comment: Speci men Type: BLOOD SPECIMENOrdering Facility: [facility] Address: [address] [place] [address] Performed By: #### 2 4325-3 ####[facility]ITAL[facility]CL[facility] [id number] [place] [address] [place] AST [Catalytic activity/Vol] 19 U/L Normal 13-35 [facility] Comment on above: Order Comment: Speci men Type: BLOOD SPECIMENOrdering Facility: [facility] Address: [address] [place] [address] Performed By: #### 2 4325-3 ####[facility] [id number] [place] [address] [place] Bilirubin [Mass/Vol] 0.7 mg/dL Normal 0.2-1.3 [facility] Comment on above: Order Comment: Speci men Type: BLOOD SPECIMENOrdering Facility: [facility] Address: [address] [place] [address] Performed By: #### 2 4325-3 ####[facility] [id number] [place] [address] [place] Bilirubin.conjugated [Mass/Vol] 0.2 mg/dL Normal <0.3 [facility] Comment on above: Order Comment: Speci men Type: BLOOD SPECIMENOrdering Facility: [facility] Address: [address] [place] [address] Performed By: #### 2 4325-3 ####[facility] [id number] [place] [address] [place] Protein [Mass/Vol] 6.9 g/dL Normal 6.3-8.0 [facility] Comment on above: Order Comment: Speci men Type: BLOOD SPECIMENOrdering Facility: [facility] Address: [address] [place] [address] Performed By: #### 2 4325-3 ####[facility] [id number] [place] [address] [place] LIPID PANEL, NONFASTINGon Cholesterol [Mass/Vol] 133 mg/dL Normal <200 [facility] Comment on above: Order Comment: Speci men Type: BLOOD SPECIMENOrdering Facility: [facility] Address: [address] [place] [address] Result Comment: <200 mg/dL, Desirable 200-239 mg/dL, Borderline high >239 mg/dL, High Performed By: #### L IPNF ####[facility] LABORATORYCLIA [id number] [address] OF [facility] HDL CHOLESTEROL, NF 59 mg/dL Normal >39 [facility] Comment on above: Order Comment: Speci men Type: BLOOD SPECIMENOrdering Facility: [facility] Address: [address] [place] [address] Result Comment: 40-5 9 mg/dL, Acceptable >59 mg/dL, High: Negative risk factor for coronary heart disease <40 mg/dL, Low: Positive risk factor for coronary heart disease Performed By: #### L IPNF ####[facility] LABORATORYCLIA [id number] [address] STATES OF [facility] LDL CHOLESTEROL, NF 65 mg/dL Normal <100 [facility] Comment on above: Order Comment: Endygurwinder de luna Type: BLOOD SPECIMENOrdering Facility: [facility] Address: [address] [place] [address] Result Comment: <100 mg/dL, Optimal 100-129 mg/dL, Near optimal/above optimal 130-159 mg/dL, Borderline high 160-189 mg/dL, High >189 mg/dL, Very high Secondary prevention optimal LDL Cholesterol levels are recommended to be < 70 mg/dL Performed By: #### L IPNF ####[facility] LABORATORYCLIA [id number] [address] [place] LDL/HDL RATIO, NF 1.10 mg/dL Normal <2.54 [facility] Comment on above: Order Comment: Nikolai men Type: BLOOD SPECIMENOrdering Facility: [facility] Address: [address] [place] [address] Result Comment: Refjuan arias: 1. National Cholesterol Education Program ATP III Guideline At-A-Glance Quick Desk Reference: National Heart, Lung, and Blood [place]. National Institutes of Health. 2001: NIH Publication No. 01-3305. 2. An International Atherosclerosis Society position paper: global recommendations for the management of dyslipidemia: executive summary, Atherosclerosis. 2014: 232(2):410-413. Performed By: #### L IPNF ####[facility] LABORATORYCLIA [id number] [address] NON HDL CHOL, NF 74 mg/dL Normal <130 [facility] Comment on above: Order Comment: Specgurwinder [facility] Type: BLOOD SPECIMENOrdering Facility: [facility] Address: [address] [place] [address] Result Comment: <130 mg/dL, Optimal 130-159 mg/dL, Near optimal/above optimal 160-189 mg/dL, Borderline high 190-219 mg/dL, High >219 mg/dL, Very high Secondary prevention optimal non HDL Cholesterol levels are recommended to be <100 mg/dL Performed By: #### L IPNF ####[facility] LABORATORYCLIA [id number] [address] T CHOL/HDL RATIO NF 2.25 mg/dL Normal <5.10 [facility] Comment on above: Order Comment: Nikolai [facility] Type: BLOOD SPECIMENOrdering Facility: [facility] Address: [address] [place] [address] Performed By: #### L IPNF ####[facility] LABORATORYCLIA [id number] [address] TRIGLYCERIDES, NF 46 mg/dL Normal <150 [facility] Comment on above: Order Comment: [facility] Type: BLOOD SPECIMENOrdering Facility: [facility] Address: [address] [place] [address] Result Comment: <150 mg/dL, Normal 150-199 mg/dL, Borderline high 200-499 mg/dL, High >499 mg/dL, Very high Performed By: #### L IPNF ####[facility] LABORATORYCLIA [id number] [address] VLDL CHOLESTEROL, NF 9 mg/dL Normal <30 [facility] Comment on above: Order Comment: Speci men Type: BLOOD SPECIMENOrdering Facility: [facility] Address: [place] [address] Performed By: #### L IPNF ####[facility] LABORATORYCLIA [id number] [address] STATES OF [facility] Calprotectin stoolOrdered By : Janeth Landis on 12-22-2024 Calprotectin stool 123 ug/g High 0-120 [facility] Comment on above: Concentration Interp retation Follow-Up< 5 - 50 ug/g Normal None>50 -120 ug/g Borderline Re-evaluate in 4-6 weeks >120 ug/g Abnormal Repeat as clinically indicatedPerformed at: [facility] [address] [id number] Director: Darci Rodriguez MD, Phone: [phone] Stool Calprotectin 123 ug/g High 0-120 [facility] Comment on above: Concentration Interp retation Follow-Up< 5 - 50 ug/g Normal None>50 -120 ug/g Borderline Re-evaluate in 4-6 weeks >120 ug/g Abnormal Repeat as clinically indicatedPerformed at: [facility] [id number] Director: Darci Rodriguez MD, Phone: [phone] Calprotectin stool 123 ug/g High 0-120 [facility] Elastase.pancreatic (Stl) [M ass/Mass]Ordered By: Janeth Landis on 12-22-2024 Stool Pancreatic Elastase 575 >[address] [facility] Comment on above: Result Units: ug [address] st./g Severe Pancreatic Insufficiency: <100 Moderate Pancreatic Insufficiency: 100 - 200 Normal: >200Performed at: [facility] [address] [id number] Director: Darci Rodriguez MD, Phone: [phone] Stool pancreatic elastase measurement (mass/mass) 575 >[address] [facility] Lactoferrin IA Ql (Stl)Order ed By: Janeth Landis on 12-22-2024 Stool Lactoferrin [facility] Lower GI hemoglobin IA Ql (S tl)Ordered By: Janeth Landis on 12-22-2024 Stool Occult Blood (PAUL) [facility] Stool Lactoferrin/WBCon 11-28 WBCST Normal Reference Ran ge = Negative Fecal WBC Lactoferrin Negative: No Fecal WBC Lactoferrin present Normal [facility] Comment on above: Performed By: #### L 7000.0750, L3410.9998, M7400.3302, M100.7900, L7000.0700, M100.0605, M600.5000 ####[facility] [address] [place], [place], [id number] Stool Occult Blood iFOBon STOB Negative Normal [facility] Comment on above: Performed By: #### L 7000.0750, L3410.9998, M7400.3302, M100.7900, L7000.0700, M100.0605, M600.5000 ####[facility] [address] [place], [place], [id number] Stool gastrointestinal hemog lobin detection by immunologic methodOrdered By: Janeth Landis on 12-22-2024 Lower GI hemoglobin IA Ql (Stl) [facility] Stool lactoferrin detection by immunoassayOrdered By: Janeth Landis on 12-22-2024 Lactoferrin IA Ql (Stl) [facility] Stool pancreatic elastase me asurement (mass/mass)Ordered By: Janeth Landis on 12-22-2024 Elastase.pancreatic (Stl) [Mass/Mass] 575 >[address] [facility] Comment on above: Result Units: ug [address] st[address]g Severe Pancreatic Insufficiency: <100 Moderate Pancreatic Insufficiency: 100 - 200 Normal: >200Performed at: [facility] [address] [id number] Director: Darci Rodriguez MD, Phone: [phone] Other Unlisted US Procedureo n 12-20-2024 Other Unlisted US Procedure Normal [facility] ALP [Catalytic activity/Vol] Ordered By: Janeth Landis on 12-17-2024 Serum or plasma alkaline phosphatase measurement 69 U/L 35-[address] [facility] ALT [Catalytic activity/Vol] Ordered By: Janeth Landis on 12-17-2024 Serum or plasma alanine aminotransferase (ALT) measurement 16 U/L <[address] [facility] Absolute lymphocyte countOrd ered By: Janeth Landis on 12-17-2024 Lymphocytes Auto (Unsp spec) [#/Vol] 0.99 10*3/uL 0.83-4.[address] [facility] Absolute neutrophil countOrd ered By: Janeth Landis on 12-17-2024 Neutrophils (Bld) [#/Vol] 3.6 10*3/uL 2.0-7.[address] [facility] Absolute neutrophil count 3.6 X10^3/uL 2.0-7.[address] [facility] Albumin/Globulin [Mass ratio ]Ordered By: Janeth Landis on 12-17-2024 Serum or plasma albumin/globulin mass ratio 1.0 RATIO 0.9-2.[address] [facility] Anion gap [Moles/Vol]Ordered By: Janeth Landis on 12-17-2024 Anion gap in Serum or Plasma 11 5-[address] [facility] Anion gap in Serum or Plasma Ordered By: Janeth Landis on 12-17-2024 Anion gap [Moles/Vol] 11 mmol/L 5-15 [facility] Automated lymphocyte count a s percentage of total leukocytesOrdered By: Janeth Landis on 12-17-2024 Lymphocytes/100 WBC Auto (Unsp spec) 18.7 % Low 19-[address] [facility] BUN/creatinine ratioOrdered By: Janeth Landis on 12-17-2024 Urea nitrogen/Creatinine [Mass ratio] 19.8 mg/mg 10-[address] [facility] BUN/creatinine ratio 19.8 RATIO 10-20 [facility] Basophil percentageOrdered B y: Janeth Landis on 12-17-2024 Basophils/100 WBC (Bld) 0.2 % 0-[address] [facility] Basophil percentage 0.2 % 0-1 [facility] Bilirubin, totalOrdered By: Janeth Landis on 12-17-2024 Bilirubin [Mass/Vol] 0.57 mg/dL 0.00-1.30 [facility] Bilirubin, total 0.57 mg/dL 0.00-1.[address] [facility] CBC W/Diff, Automatedon -2 Absolute Lymph 0.99 X10 3/uL Normal 0.83-4.[address] [facility] Comment on above: Performed By: #### L 100.0100, L500.4050 ####[facility] [address] [place], [address] Absolute Neut 3.6 X10 3/uL Normal 2.0-7.[address] [facility] Comment on above: Performed By: #### L 100.0100, L500.4050 ####[facility] [address] [place], [address] Basophils/100 WBC (Bld) 0.2 % Normal 0-[address] [facility] Comment on above: Performed By: #### L 100.0100, L500.4050 ####[facility] [address] [place], [address] Eosinophils/100 WBC (Bld) 2.5 % Normal 0-[address] [facility] Comment on above: Performed By: #### L 100.0100, L500.4050 ####[facility] [address] [place], [address] Erythrocyte distribution width (RBC) [Ratio] 13.6 % Normal 11.6-14.[address] [facility] Comment on above: Performed By: #### L 100.0100, L500.4050 ####[facility] [address] [place], [address] Hematocrit (Bld) [Volume fraction] 33.7 % Low 37-[address] [facility] Comment on above: Performed By: #### L 100.0100, L500.4050 ####[facility] [address] [place], [address] Hemoglobin (Bld) [Mass/Vol] 10.4 g/dL Low 12.0-15.[address] [facility] Comment on above: Performed By: #### L 100.0100, L500.4050 ####[facility] [address] [place], [address] IG% 0.800 Normal 0.0-0.[address] [facility] Comment on above: Result Comment: IG% - Immature Granulocytes (promyelocytes, myelocytes andmetamyelocytes) > 1% indicates that a LEFT SHIFT is Present. Performed By: #### L 100.0100, L500.4050 ####[facility] [address] [place], [address] Lymphocytes/100 WBC (Bld) 18.7 % Low 19-[address] [facility] Comment on above: Performed By: #### L 100.0100, L500.4050 ####[facility] [address] [place], [address] MCH (RBC) [Entitic mass] 29.5 pg Normal 27.0-32.[address] [facility] Comment on above: Performed By: #### L 100.0100, L500.4050 ####[facility] [address] [place], [address] MCHC (RBC) [Mass/Vol] 30.9 g/dL Low 32-36 [facility] Comment on above: Performed By: #### L 100.0100, L500.4050 ####[facility] [address] [place], [address] MCV (RBC) [Entitic vol] 95.5 fL Normal 81-[address] [facility] Comment on above: Performed By: #### L 100.0100, L500.4050 ####[facility] [address] [place], [address] Monocytes/100 WBC (Bld) 9.8 % Normal 0-[address] [facility] Comment on above: Performed By: #### L 100.0100, L500.4050 ####[facility] [address] [place], [address] Neutrophils/100 WBC (Bld) 68.0 % Normal 47-[address] [facility] Comment on above: Performed By: #### L 100.0100, L500.4050 ####[facility] [address] [place], [address] Nucleated RBC (Bld) [#/Vol] 0 10*3/uL Normal 0-[address] [facility] Comment on above: Performed By: #### L 100.0100, L500.4050 ####[facility] [address] [place], [address] Platelet mean volume (Bld) [Entitic vol] 9.8 fL Normal 6.2-12.[address] [facility] Comment on above: Performed By: #### L 100.0100, L500.4050 ####[facility] [address] [place], [address] Platelets (Bld) [#/Vol] 195 10*3/uL Normal 150-[address] [facility] Comment on above: Performed By: #### L 100.0100, L500.4050 ####[facility] [address] [place], [address] RBC (Bld) [#/Vol] 3.53 10*6/uL Low 4.2-5.4 [facility] Comment on above: Performed By: #### L 100.0100, L500.4050 ####[facility] [address] [place], [address] RDW SD 47.5 fl High 35.1-43.[address] [facility] Comment on above: Performed By: #### L 100.0100, L500.4050 ####[facility] [address] [place], [address] WBC (Bld) [#/Vol] 5.3 10*3/uL Normal 4.4-11.0 [facility] Comment on above: Performed By: #### L 100.0100, L500.4050 ####[facility] [address] [place], [address] Calcium [Mass/Vol]Ordered By : Janeth Landis on 12-17-2024 Serum or plasma calcium measurement (mass/volume) 10.0 mg/dL 7.6-11.[address] [facility] Carbon dioxide, total [Moles /volume] in Central venous bloodOrdered By: Janeth Landis on 12-17-2024 CO2 [Moles/Vol] 21.3 mmol/L 21.0-32.[address] [facility] Carbon dioxide, total [Moles/volume] in Central venous blood 21.3 mmol/L 21.0-32.[address] [facility] Chloride assayOrdered By: Jona Landis on 12-17-2024 Chloride [Moles/Vol] 106 mmol/L 98-108 [facility] Chloride assay 106 mmol/L 98-[address] [facility] Comprehensive Metabolic Prof ilon 12-17-2024 Albumin [Mass/Vol] 3.5 g/dL Normal 3.4-4.8 [facility] Comment on above: Performed By: #### L 100.0100, L500.4050 ####[facility] [address] [place], [address] Albumin/Globulin [Mass ratio] 1.0 {ratio} Normal 0.9-2.[address] [facility] Comment on above: Performed By: #### L 100.0100, L500.4050 ####[facility] [address] [place], [address] ALK PHOS 69 U/L Normal 35-[address] [facility] Comment on above: Performed By: #### L 100.0100, L500.4050 ####[facility] [address] [place], [address] ALT [Catalytic activity/Vol] 16 U/L Normal <=[address] [facility] Comment on above: Performed By: #### L 100.0100, L500.4050 ####[facility] [address] [place], [address] AST [Catalytic activity/Vol] 21 U/L Normal <=[address] [facility] Comment on above: Performed By: #### L 100.0100, L500.4050 ####[facility] [address] [place], [address] Bilirubin [Mass/Vol] 0.57 mg/dL Normal 0.00-1.30 [facility] Comment on above: Performed By: #### L 100.0100, L500.4050 ####[facility] [address] [place], [address] BUN/CRE 19.8 RATIO Normal 10-[address] [facility] Comment on above: Performed By: #### L 100.0100, L500.4050 ####[facility] [address] [place], [address] Calcium [Mass/Vol] 10.0 mg/dL Normal 7.6-11.0 [facility] Comment on above: Performed By: #### L 100.0100, L500.4050 ####[facility] [address] [place], [address] Chloride [Moles/Vol] 106 mmol/L Normal 98-108 [facility] Comment on above: Performed By: #### L 100.0100, L500.4050 ####[facility] [address] [place], [address] CO2 [Moles/Vol] 21.3 mmol/L Normal 21.0-32.[address] [facility] Comment on above: Performed By: #### L 100.0100, L500.4050 ####[facility] [address] [place], [address] Creatinine [Mass/Vol] 1.43 mg/dL High 0.70-1.20 [facility] Comment on above: Performed By: #### L 100.0100, L500.4050 ####[facility] [address] [place], [address] GAP 11 Normal 5-[address] [facility] Comment on above: Performed By: #### L 100.0100, L500.4050 ####[facility] [address] [place], [address] GFR/1.73 sq M.predicted among non-blacks MDRD (S/P/Bld) [Vol rate/Area] 36 mL/min/{1.73_m2} Low >[address] [facility] Comment on above: Result Comment: mL/m in/1.73m2 CKD-EPI Creatinine Equation (2020) Performed By: #### L 100.0100, L500.4050 ####[facility] [address] [place], [address] Globulin (S) [Mass/Vol] 3.5 g/dL Normal 2.2-4.[address] [facility] Comment on above: Performed By: #### L 100.0100, L500.4050 ####[facility] [address] [place], [address] Glucose [Mass/Vol] 145 mg/dL High 70-99 [facility] Comment on above: Performed By: #### L 100.0100, L500.4050 ####[facility] [address] [place], [address] Potassium [Moles/Vol] 4.3 mmol/L Normal 3.3-5.1 [facility] Comment on above: Performed By: #### L 100.0100, L500.4050 ####[facility] [address] [place], [address] Sodium [Moles/Vol] 139 mmol/L Normal 133-145 [facility] Comment on above: Performed By: #### L 100.0100, L500.4050 ####[facility] [address] [place], [address] T PROT 7.0 g/dL Normal 5.9-8.[address] [facility] Comment on above: Performed By: #### L 100.0100, L500.4050 ####[facility] [address] [place], [address] Urea nitrogen [Mass/Vol] 28 mg/dL High 4-[address] [facility] Comment on above: Performed By: #### L 100.0100, L500.4050 ####[facility] [address] [place], [address] Creatinine [Mass/Vol]Ordered By: Janeth Landis on 12-17-2024 Serum creatinine measurement (mass/volume) 1.43 mg/dL High 0.70-1.[address] [facility] Eosinophil percentageOrdered By: Janeth Landis on 12-17-2024 Eosinophils/100 WBC (Bld) 2.5 % 0-[address] [facility] Eosinophil percentage 2.5 % 0-5 [facility] Erythrocyte distribution wid th (RBC) [Ratio]Ordered By: Janeth Landis on 12-17-2024 Erythrocyte distribution width ratio 13.6 % 11.6-14.[address] [facility] Erythrocyte distribution width standard deviation 47.5 fl High 35.1-43.[address] [facility] Erythrocyte distribution wid th ratioOrdered By: Janeth Landis on 12-17-2024 Erythrocyte distribution width (RBC) [Ratio] 13.6 % 11.6-14.[address] [facility] Erythrocyte distribution wid th standard deviationOrdered By: Janeth Landis on 12-17-2024 Erythrocyte distribution width (RBC) [Entitic vol] 47.5 fL High 35.1-43.[address] [facility] Erythrocyte distribution width (RBC) [Ratio] 47.5 fl High 35.1-43.[address] [facility] GFR/1.73 sq M.predicted chuckie g non-blacks MDRD (S/P/Bld) [Vol rate/Area]Ordered By: Janeth Landis on 12-17-2024 Estimated GFR (MDRD) Non-Af Amer 36 Low >[address] [facility] Comment on above: mL/min/1.73m2 CKD-EP I Creatinine Equation (2020) Glomerular filtration rate (GFR) estimation/1.73 sq m using serum, plasma, or whole b 36 Low >[address] [facility] Gastroenterology Visit Repor ton 12-17-2024 Gastroenterology Visit Report Normal [facility] Glomerular filtration rate ( GFR) estimation/1.73 sq m using serum, plasma, or whole bOrdered By: Janeth Landis on 12-17-2024 GFR/1.73 sq M.predicted among non-blacks MDRD (S/P/Bld) [Vol rate/Area] 36 mL/min/{1.73_m2} Low >[address] [facility] Comment on above: mL/min/1.73m2 CKD-EP I Creatinine Equation (2020) Glucose [Mass/Vol]Ordered By : Janeth Landis on 12-17-2024 Serum glucose measurement (mass/volume) 145 mg/dL High 70-[address] [facility] Hematocrit Auto (Bld) [Volum e fraction]Ordered By: Janeth Landis on 12-17-2024 Hematocrit (Bld) [Volume fraction] 33.7 % Low 37-[address] [facility] Automated blood hematocrit (percentage) 33.7 % Low 37-[address] [facility] Hemoglobin measurementOrdere d By: Janeth Landis on 12-17-2024 Hemoglobin (Bld) [Mass/Vol] 10.4 g/dL Low 12.0-15.[address] [facility] Hemoglobin measurement 10.4 g/dL Low 12.0-15.0 [facility] Immature granulocytes/100 WB C Auto (Bld)Ordered By: Janeth Landis on 12-17-2024 Immature granulocytes/100 WBC (Bld) 0.800 % 0.0-0.[address] [facility] Comment on above: IG% - Immature Granu locytes (promyelocytes, myelocytes and metamyelocytes) > 1% indicates that a LEFT SHIFT is Present. Automated immature granulocyte percentage 0.800 % 0.0-0.[address] [facility] Laboratory - Chemistry and C hemistry - challengeOrdered By: Janeth Landis on 12-17-2024 AST [Catalytic activity/Vol] 21 U/L <[address] [facility] Lymphocytes Auto (Unsp spec) [#/Vol]Ordered By: Janeth Landis on 12-17-2024 Lymphocytes (Bld) [#/Vol] 0.99 10*3/uL 0.83-4.[address] [facility] Absolute lymphocyte count 0.99 X10^3/uL 0.83-4.[address] [facility] Lymphocytes/100 WBC Auto (Un sp spec)Ordered By: Janeth Landis on 12-17-2024 Lymphocytes/100 WBC (Bld) 18.7 % Low 19-[address] [facility] Automated lymphocyte count as percentage of total leukocytes 18.7 % Low 19-[address] [facility] MCV (RBC) [Entitic vol]Order ed By: Janeth Landis on 12-17-2024 MCV (mean corpuscular volume) determination 95.5 fL 81-[address] [facility] MCV (mean corpuscular volume ) determinationOrdered By: Janeth Landis on 12-17-2024 MCV (RBC) [Entitic vol] 95.5 fL 81-[address] [facility] Mean corpuscular hemoglobin (MCH) determinationOrdered By: Janeth Landis on 12-17-2024 MCH (RBC) [Entitic mass] 29.5 pg 27.0-32.[address] [facility] Mean corpuscular hemoglobin (MCH) determination 29.5 pg 27.0-32.[address] [facility] Mean corpuscular hemoglobin concentration (MCHC) determinationOrdered By: Janeth Landis on 12-17-2024 MCHC (RBC) [Mass/Vol] 30.9 g/dL Low 32-36 [facility] Mean corpuscular hemoglobin concentration (MCHC) determination 30.9 g/dL Low 32-[address] [facility] Mean platelet volume determi nationOrdered By: Janeth Landis on 12-17-2024 Platelet mean volume (Bld) [Entitic vol] 9.8 fL 6.2-12.[address] [facility] Mean platelet volume determination 9.8 fl 6.2-12.[address] [facility] Monocyte percentageOrdered B y: Janeth Landis on 12-17-2024 Monocytes/100 WBC (Bld) 9.8 % 0-[address] [facility] Monocyte percentage 9.8 % 0-10 [facility] Neutrophil percentageOrdered By: Janeth Landis on 12-17-2024 Neutrophils/100 WBC (Bld) 68.0 % 47-[address] [facility] Neutrophil percentage 68.0 % 47-70 [facility] No Panel InformationOrdered By: Janeth Landis on 12-17-2024 21 U/L <[address] [facility] Nucleated red blood cell per centageOrdered By: Janeth Landis on 12-17-2024 Nucleated RBC/100 WBC (Bld) [Ratio] 0 % 0-[address] [facility] Nucleated red blood cell percentage 0 % 0-[address] [facility] Platelet countOrdered By: Jona Landis on 12-17-2024 Platelets (Bld) [#/Vol] 195 10*3/uL 150-[address] [facility] Platelet count 195 K/mm3 150-[address] [facility] Potassium (Unsp spec) [Mass/ Vol]Ordered By: Janeth Landis on 12-17-2024 Potassium [Moles/Vol] 4.3 mmol/L 3.3-5.1 [facility] Potassium measurement (mass/volume) 4.3 mmol/L 3.3-5.[address] [facility] Potassium measurement (mass/ volume)Ordered By: Janeth Landis on 12-17-2024 Potassium (Unsp spec) [Mass/Vol] 4.3 mmol/L 3.3-5.[address] [facility] RBC Auto (Bld) [#/Vol]Ordere d By: Janeth Landis on 12-17-2024 RBC (Bld) [#/Vol] 3.53 10*6/uL Low 4.2-5.4 [facility] Automated blood erythrocyte count 3.53 M/mm3 Low 4.2-5.[address] [facility] Serum creatinine measurement (mass/volume)Ordered By: Janeth Landis on 12-17-2024 Creatinine [Mass/Vol] 1.43 mg/dL High 0.70-1.20 [facility] Serum globulin measurementOr dered By: Janeth Landis on 12-17-2024 Globulin (S) [Mass/Vol] 3.5 g/dL 2.2-4.[address] [facility] Serum glucose measurement (m ass/volume)Ordered By: Janeth Landis on 12-17-2024 Glucose [Mass/Vol] 145 mg/dL High 70-99 [facility] Serum or plasma alanine riojas otransferase (ALT) measurementOrdered By: Janeth Landis on 12-17-2024 ALT [Catalytic activity/Vol] 16 U/L <[address] [facility] Serum or plasma albumin rema urement (mass/volume)Ordered By: Janeth Landis on 12-17-2024 Albumin [Mass/Vol] 3.5 g/dL 3.4-4.8 [facility] Serum or plasma albumin measurement (mass/volume) 3.5 g/dL 2.2-4.[address] [facility] Serum or plasma albumin/glob ulin mass ratioOrdered By: Janeth Landis on 12-17-2024 Albumin/Globulin [Mass ratio] 1.0 {ratio} 0.9-2.[address] [facility] Serum or plasma alkaline mayra sphatase measurementOrdered By: Janeth Landis on 12-17-2024 ALP [Catalytic activity/Vol] 69 U/L 35-[address] [facility] Serum or plasma calcium rema urement (mass/volume)Ordered By: Janeth Landis on 12-17-2024 Calcium [Mass/Vol] 10.0 mg/dL 7.6-11.0 [facility] Serum or plasma urea nitroge n measurement (mass/volume)Ordered By: Janeth Landis on 12-17-2024 Urea nitrogen [Mass/Vol] 28 mg/dL High 4-[address] [facility] Sodium levelOrdered By: Rand Landis on 12-17-2024 Sodium [Moles/Vol] 139 mmol/L 133-145 [facility] Sodium level 139 mmol/L 133-[address] [facility] Total proteinOrdered By: Alejandra Landis on 12-17-2024 Protein [Mass/Vol] 7.0 g/dL 5.9-8.4 [facility] Total protein 7.0 g/dL 5.9-8.[address] [facility] Urea nitrogen [Mass/Vol]Orde red By: Janeth Landis on 12-17-2024 Serum or plasma urea nitrogen measurement (mass/volume) 28 mg/dL High 01-[address] [facility] White blood cell (WBC) count Ordered By: Janeth Landis on 12-17-2024 WBC (Bld) [#/Vol] 5.3 10*3/uL 4.4-11.0 [facility] White blood cell (WBC) count 5.3 K/mm3 4.4-11.[address] [facility] Anion gap [Moles/Vol]Ordered By: Ros Niec on 12-08-2024 Anion gap in Serum or Plasma 11 02-[address] [facility] Anion gap in Serum or Plasma Ordered By: Ros Nice on 12-08-2024 Anion gap [Moles/Vol] 11 mmol/L 02-10 [facility] BUN/creatinine ratioOrdered By: Ros Nice on 12-08-2024 Urea nitrogen/Creatinine [Mass ratio] 23.2 mg/mg High 07-[address] [facility] BUN/creatinine ratio 23.2 RATIO High 07-18 [facility] Basic Metabolic Profile (BMP )on 12-08-2024 BUN/CRE 23.2 RATIO [facility] Comment on above: Performed By: #### L 500.2500 ####[facility] [address] [place], [address] Calcium [Mass/Vol] 10.2 mg/dL Normal 7.6-11.0 [facility] Comment on above: Performed By: #### L 500.2500 ####[facility] [address] [place], [address] Chloride [Moles/Vol] 105 mmol/L Normal 98-108 [facility] Comment on above: Performed By: #### L 500.2500 ####[facility] [address] [place], [address] CO2 [Moles/Vol] 22.3 mmol/L Normal 21.0-32.[address] [facility] Comment on above: Performed By: #### L 500.2500 ####[facility] [address] [place], [address] Creatinine [Mass/Vol] 1.55 mg/dL High 0.70-1.20 [facility] Comment on above: Performed By: #### L 500.2500 ####[facility] [address] [place], [address] GAP 11 Normal 5-[address] [facility] Comment on above: Performed By: #### L 500.2500 ####[facility] [address] [place], [address] GFR/1.73 sq M.predicted among non-blacks MDRD (S/P/Bld) [Vol rate/Area] 33 mL/min/{1.73_m2} Low >[address] [facility] Comment on above: Result Comment: mL/m in/1.73m2 CKD-EPI Creatinine Equation (2020) Performed By: #### L 500.2500 ####[facility] [address] [place], [address] Glucose [Mass/Vol] 145 mg/dL High 70-99 [facility] Comment on above: Performed By: #### L 500.2500 ####[facility] [address] [place], [address] Potassium [Moles/Vol] 4.2 mmol/L Normal 3.3-5.1 [facility] Comment on above: Performed By: #### L 500.2500 ####[facility] [address] [place], [address] Sodium [Moles/Vol] 138 mmol/L Normal 133-145 [facility] Comment on above: Performed By: #### L 500.2500 ####[facility] [address] [place], [address] Urea nitrogen [Mass/Vol] 36 mg/dL High 4-[address] [facility] Comment on above: Performed By: #### L 500.2500 ####[facility] [address] [place], [address] Calcium [Mass/Vol]Ordered By : Ros Nice on 12-08-2024 Serum or plasma calcium measurement (mass/volume) 10.2 mg/dL 7.6-11.[address] [facility] Carbon dioxide, total [Moles /volume] in Central venous bloodOrdered By: Ros Nice on 12-08-2024 CO2 [Moles/Vol] 22.3 mmol/L 21.0-32.[address] [facility] Carbon dioxide, total [Moles/volume] in Central venous blood 22.3 mmol/L 21.0-32.[address] [facility] Chloride assayOrdered By: Markos Nice on 12-08-2024 Chloride [Moles/Vol] 105 mmol/L 98-108 [facility] Chloride assay 105 mmol/L 98-[address] [facility] Creatinine [Mass/Vol]Ordered By: Ros Nice on 12-08-2024 Serum creatinine measurement (mass/volume) 1.55 mg/dL High 0.70-1.[address] [facility] GFR/1.73 sq M.predicted chuckie g non-blacks MDRD (S/P/Bld) [Vol rate/Area]Ordered By: Ros Nice on 12-08-2024 Estimated GFR (MDRD) Non-Af Amer 33 Low >[address] [facility] Comment on above: mL/min/1.73m2 CKD-EP I Creatinine Equation (2020) Glomerular filtration rate (GFR) estimation/1.73 sq m using serum, plasma, or whole b 33 Low >[address] [facility] Glomerular filtration rate ( GFR) estimation/1.73 sq m using serum, plasma, or whole bOrdered By: Ros Nice on 12-08-2024 GFR/1.73 sq M.predicted among non-blacks MDRD (S/P/Bld) [Vol rate/Area] 33 mL/min/{1.73_m2} Low >[address] [facility] Glucose [Mass/Vol]Ordered By : Ros Nice on 12-08-2024 Serum glucose measurement (mass/volume) 145 mg/dL High 70-[address] [facility] Internal Medicine Office Vis iton 12-08-2024 Internal Medicine Office Visit Normal [facility] Potassium (Unsp spec) [Mass/ Vol]Ordered By: Ros Nice on 12-08-2024 Potassium [Moles/Vol] 4.2 mmol/L 3.3-5.1 [facility] Potassium measurement (mass/volume) 4.2 mmol/L 3.3-5.[address] [facility] Potassium measurement (mass/ volume)Ordered By: Ros Nice on 12-08-2024 Potassium (Unsp spec) [Mass/Vol] 4.2 mmol/L 3.3-5.[address] [facility] Serum creatinine measurement (mass/volume)Ordered By: Ros Nice on 12-08-2024 Creatinine [Mass/Vol] 1.55 mg/dL High 0.70-1.20 [facility] Serum glucose measurement (m ass/volume)Ordered By: Ros Nice on 12-08-2024 Glucose [Mass/Vol] 145 mg/dL High 70-99 [facility] Serum or plasma calcium rema urement (mass/volume)Ordered By: Ros Nice on 12-08-2024 Calcium [Mass/Vol] 10.2 mg/dL 7.6-11.0 [facility] Serum or plasma urea nitroge n measurement (mass/volume)Ordered By: Ros Nice on 12-08-2024 Urea nitrogen [Mass/Vol] 36 mg/dL High 01-[address] [facility] Sodium levelOrdered By: Victoria Nice on 12-08-2024 Sodium [Moles/Vol] 138 mmol/L 133-145 [facility] Sodium level 138 mmol/L 133-[address] [facility] Urea nitrogen [Mass/Vol]Orde red By: Ros Nice on 12-08-2024 Serum or plasma urea nitrogen measurement (mass/volume) 36 mg/dL High 01-[address] [facility] Anion gap [Moles/Vol]Ordered By: Ros Nice on 12-01-2024 Anion gap in Serum or Plasma 10 - [facility] Anion gap in Serum or Plasma Ordered By: Ros Nice on 12-01-2024 Anion gap [Moles/Vol] 10 mmol/L - [facility] BUN/creatinine ratioOrdered By: Ros Nice on 12-01-2024 Urea nitrogen/Creatinine [Mass ratio] 27.0 mg/mg High - [facility] BUN/creatinine ratio 27.0 RATIO High 10-20 [facility] Basic Metabolic Profile (BMP )on 12-01-2024 BUN/CRE 27.0 RATIO High - [facility] Comment on above: Performed By: #### L 500.2500 ####[facility] [address] [place], [address] Calcium [Mass/Vol] 10.4 mg/dL Normal 7.6-11.0 [facility] Comment on above: Performed By: #### L 500.2500 ####[facility] [address] [place], [address] Chloride [Moles/Vol] 106 mmol/L Normal 98-108 [facility] Comment on above: Performed By: #### L 500.2500 ####[facility] [address] [place], [address] CO2 [Moles/Vol] 21.3 mmol/L Normal 21.0-32.[address] [facility] Comment on above: Performed By: #### L 500.2500 ####[facility] [address] [place], [address] Creatinine [Mass/Vol] 1.88 mg/dL High 0.70-1.20 [facility] Comment on above: Performed By: #### L 500.2500 ####[facility] [address] [place], [address] GAP 10 Normal -[address] [facility] Comment on above: Performed By: #### L 500.2500 ####[facility] [address] [place], [address] GFR/1.73 sq M.predicted among non-blacks MDRD (S/P/Bld) [Vol rate/Area] 26 mL/min/{1.73_m2} Low >[address] [facility] Comment on above: Result Comment: mL/m in/1.73m2 CKD-EPI Creatinine Equation (2020) Performed By: #### L 500.2500 ####[facility] [address] [place], [address] Glucose [Mass/Vol] 172 mg/dL High 70-99 [facility] Comment on above: Performed By: #### L 500.2500 ####[facility] [address] [place], [address] Potassium [Moles/Vol] 5.6 mmol/L High 3.3-5.1 [facility] Comment on above: Performed By: #### L 500.2500 ####[facility] [address] [place], [address] Sodium [Moles/Vol] 138 mmol/L Normal 133-145 [facility] Comment on above: Performed By: #### L 500.2500 ####[facility] [address] [place], [address] Urea nitrogen [Mass/Vol] 51 mg/dL High 4-[address] [facility] Comment on above: Performed By: #### L 500.2500 ####[facility] [address] [place], [address] Calcium [Mass/Vol]Ordered By : Ros Nice on 12-01-2024 Serum or plasma calcium measurement (mass/volume) 10.4 mg/dL 7.6-11.[address] [facility] Carbon dioxide, total [Moles /volume] in Central venous bloodOrdered By: Ros Nice on 12-01-2024 CO2 [Moles/Vol] 21.3 mmol/L 21.0-32.[address] [facility] Carbon dioxide, total [Moles/volume] in Central venous blood 21.3 mmol/L 21.0-32.[address] [facility] Chloride assayOrdered By: Markos Nice on 12-01-2024 Chloride [Moles/Vol] 106 mmol/L 98-108 [facility] Chloride assay 106 mmol/L 98-[address] [facility] Creatinine [Mass/Vol]Ordered By: Ros Nice on 12-01-2024 Serum creatinine measurement (mass/volume) 1.88 mg/dL High 0.70-1.[address] [facility] GFR/1.73 sq M.predicted chuckie g non-blacks MDRD (S/P/Bld) [Vol rate/Area]Ordered By: Ros Nice on 12-01-2024 Estimated GFR (MDRD) Non-Af Amer 26 Low >[address] [facility] Comment on above: mL/min/1.73m2 CKD-EP I Creatinine Equation (2020) Glomerular filtration rate (GFR) estimation/1.73 sq m using serum, plasma, or whole b 26 Low >[address] [facility] Glomerular filtration rate ( GFR) estimation/1.73 sq m using serum, plasma, or whole bOrdered By: Ros Nice on 12-01-2024 GFR/1.73 sq M.predicted among non-blacks MDRD (S/P/Bld) [Vol rate/Area] 26 mL/min/{1.73_m2} Low >[address] [facility] Glucose [Mass/Vol]Ordered By : Ros Nice on 12-01-2024 Serum glucose measurement (mass/volume) 172 mg/dL High 70-[address] [facility] Potassium (Unsp spec) [Mass/ Vol]Ordered By: Ros Nice on 12-01-2024 Potassium [Moles/Vol] 5.6 mmol/L High 3.3-5.1 [facility] Potassium measurement (mass/volume) 5.6 mmol/L High 3.3-5.[address] [facility] Potassium measurement (mass/ volume)Ordered By: Ros Nice on 12-01-2024 Potassium (Unsp spec) [Mass/Vol] 5.6 mmol/L High 3.3-5.[address] [facility] Serum creatinine measurement (mass/volume)Ordered By: Ros Nice on 12-01-2024 Creatinine [Mass/Vol] 1.88 mg/dL High 0.70-1.20 [facility] Serum glucose measurement (m ass/volume)Ordered By: Ros Nice on 12-01-2024 Glucose [Mass/Vol] 172 mg/dL High 70-99 [facility] Serum or plasma calcium rema urement (mass/volume)Ordered By: Ros Nice on 12-01-2024 Calcium [Mass/Vol] 10.4 mg/dL 7.6-11.0 [facility] Serum or plasma urea nitroge n measurement (mass/volume)Ordered By: Ros Nice on 12-01-2024 Urea nitrogen [Mass/Vol] 51 mg/dL High 01-[address] [facility] Sodium levelOrdered By: Victoria Nice on 12-01-2024 Sodium [Moles/Vol] 138 mmol/L 133-145 [facility] Sodium level 138 mmol/L 133-[address] [facility] Urea nitrogen [Mass/Vol]Orde red By: Ros Nice on 12-01-2024 Serum or plasma urea nitrogen measurement (mass/volume) 51 mg/dL High 01-[address] [facility] Anion gap [Moles/Vol]Ordered By: Ros Nice on 11-24-2024 Serum or plasma anion gap determination (moles/volume) 12 02-[address] [facility] BUN/creatinine ratioOrdered By: Ros Nice on 11-24-2024 Urea nitrogen/Creatinine [Mass ratio] 31.7 mg/mg High 07-[address] [facility] BUN/creatinine ratio 31.7 RATIO High 07-18 [facility] Basic Metabolic Profile (BMP )on 11-24-2024 Anion gap [Moles/Vol] 12 mmol/L Normal 02-10 [facility] Comment on above: Order Comment: DR. Eunice ESTEVEZ AND DR. NICE BOTH ORDERED BMP. SEND TO [facility] Performed By: #### L 500.9139 ####[facility] [address] [place], [address] BUN/CRE 31.7 RATIO High 07-[address] [facility] Comment on above: Order Comment: DR. Eunice ESTEVEZ AND DR. NICE BOTH ORDERED BMP. SEND TO [facility] Performed By: #### L 500.2500 ####[facility] [address] [place], [address] Calcium [Mass/Vol] 10.1 mg/dL Normal 7.6-11.0 [facility] Comment on above: Order Comment: DR. Eunice ESTEVEZ AND DR. NICE BOTH ORDERED BMP. SEND TO [facility] Performed By: #### L 500.2500 ####[facility] [address] [place], [address] Chloride [Moles/Vol] 101 mmol/L Normal 96-108 [facility] Comment on above: Order Comment: DR. Eunice ESTEVEZ AND DR. NICE BOTH ORDERED BMP. SEND TO [facility] Performed By: #### L 500.2500 ####[facility] [address] [place], [address] CO2 [Moles/Vol] 21.8 mmol/L Low 22.0-29.[address] [facility] Comment on above: Order Comment: DR. Eunice ESTEVEZ AND DR. NICE BOTH ORDERED BMP. SEND TO [facility] Performed By: #### L 500.2500 ####[facility] [address] [place], [address] Creatinine [Mass/Vol] 1.8 mg/dL High 0.6-1.0 [facility] Comment on above: Order Comment: DR. Eunice ESTEVEZ AND DR. NICE BOTH ORDERED BMP. SEND TO [facility] Performed By: #### L 500.2500 ####[facility] [address] [place], [address] GFR/1.73 sq M.predicted among non-blacks MDRD (S/P/Bld) [Vol rate/Area] 29 mL/min/{1.73_m2} Low >[address] [facility] Comment on above: Order Comment: DR. Eunice ESTEVEZ AND DR. NICE BOTH ORDERED BMP. SEND TO [facility] Result Comment: mL/m in/1.73m2 CKD-EPI Creatinine Equation (2020) Performed By: #### L 500.2500 ####[facility] [address] [place], [address] Glucose [Mass/Vol] 132 mg/dL High 70-99 [facility] Comment on above: Order Comment: DR. uEnice ESTEVEZ AND DR. NICE BOTH ORDERED BMP. SEND TO [facility] Performed By: #### L 500.2500 ####[facility] [address] [place], [address] Potassium [Moles/Vol] 3.9 mmol/L Normal 3.3-5.1 [facility] Comment on above: Order Comment: DR. Eunice ESTEVEZ AND DR. NICE BOTH ORDERED BMP. SEND TO [facility] Performed By: #### L 500.2500 ####[facility] [address] [place], [address] Sodium [Moles/Vol] 134 mmol/L Normal 133-145 [facility] Comment on above: Order Comment: DR. Eunice ESTEVEZ AND DR. NICE BOTH ORDERED BMP. SEND TO [facility] Performed By: #### L 500.2500 ####[facility] [address] [place], [address] Urea nitrogen [Mass/Vol] 55 mg/dL High 4-[address] [facility] Comment on above: Order Comment: DR. Eunice ESTEVEZ AND DR. NICE BOTH ORDERED BMP. SEND TO [facility] Performed By: #### L 500.2500 ####[facility] [address] [place], [address] Anion Gap Normal 5-[address] [facility] Comment on above: Result Comment: DOUP ORDER Performed By: #### L 500.2500 ####[facility] [address] [place], [address] BUN Normal 4-[address] [facility] Comment on above: Result Comment: DOUP ORDER Performed By: #### L 500.2500 ####[facility] [address] [place], [address] BUN/CRE Normal 10-[address] [facility] Comment on above: Result Comment: DOUP ORDER Performed By: #### L 500.2500 ####[facility] [address] [place], [address] Calcium Normal 7.6-11.[address] [facility] Comment on above: Result Comment: DOUP ORDER Performed By: #### L 500.2500 ####[facility] [address] [place], [address] Chloride Normal 96-[address] [facility] Comment on above: Result Comment: DOUP ORDER Performed By: #### L 500.2500 ####[facility] [address] [place], [address] CO2 Normal 22.0-29.[address] [facility] Comment on above: Result Comment: DOUP ORDER Performed By: #### L 500.2500 ####[facility] [address] [place], [address] CREAT,SERUM Normal 0.6-1.[address] [facility] Comment on above: Result Comment: DOUP ORDER Performed By: #### L 500.2500 ####[facility] [address] [place], [address] eGFR Normal >[address] [facility] Comment on above: Result Comment: DOUP ORDER Performed By: #### L 500.2500 ####[facility] [address] [place], [address] GLU Normal 70-[address] [facility] Comment on above: Result Comment: DOUP ORDER Performed By: #### L 500.2500 ####[facility] [address] [place], [address] Potassium Normal 3.3-5.[address] [facility] Comment on above: Result Comment: DOUP ORDER Performed By: #### L 500.2500 ####[facility] [address] [place], [address] Sodium Normal 133-[address] [facility] Comment on above: Result Comment: DOUP ORDER Performed By: #### L 500.2500 ####[facility] [address] [place], [address] Calcium [Mass/Vol]Ordered By : Ros Nice on 11-24-2024 Serum or plasma calcium measurement (mass/volume) 10.1 mg/dL 7.6-11.[address] [facility] Carbon dioxide measurementOr dered By: Ros Nice on 11-24-2024 CO2 [Moles/Vol] 21.8 mmol/L Low 22.0-29.[address] [facility] Carbon dioxide measurement 21.8 mmol/L Low 22.0-29.[address] [facility] Chloride measurementOrdered By: Ros Nice on 11-24-2024 Chloride [Moles/Vol] 101 mmol/L 96-108 [facility] Chloride measurement 101 mmol/L 96-108 [facility] Creatinine [Moles/Vol]Ordere d By: Ros Nice on 11-24-2024 Creatinine [Mass/Vol] 1.8 mg/dL High 0.6-1.0 [facility] Serum or plasma creatinine measurement (moles/volume) 1.8 mg/dL High 0.6-1.[address] [facility] GFR/1.73 sq M.predicted chuckie g non-blacks MDRD (S/P/Bld) [Vol rate/Area]Ordered By: Ros Nice on 11-24-2024 Estimated GFR (MDRD) Non-Af Amer 29 Low >[address] [facility] Comment on above: mL/min/1.73m2 CKD-EP I Creatinine Equation (2020) Glomerular filtration rate (GFR) estimation/1.73 sq m using serum, plasma, or whole b 29 Low >[address] [facility] Glomerular filtration rate ( GFR) estimation/1.73 sq m using serum, plasma, or whole bOrdered By: Ros Nice on 11-24-2024 GFR/1.73 sq M.predicted among non-blacks MDRD (S/P/Bld) [Vol rate/Area] 29 mL/min/{1.73_m2} Low >[address] [facility] Glucose [Mass/Vol]Ordered By : Ros Nice on 11-24-2024 Serum glucose measurement (mass/volume) 132 mg/dL High 70-[address] [facility] Potassium [Moles/Vol]Ordered By: Ros Nice on 11-24-2024 Serum or plasma potassium measurement 3.9 mmol/L 3.3-5.[address] [facility] Serum glucose measurement (m ass/volume)Ordered By: Ros Nice on 11-24-2024 Glucose [Mass/Vol] 132 mg/dL High 70-99 [facility] Serum or plasma anion gap de termination (moles/volume)Ordered By: Ros Nice on 11-24-2024 Anion gap [Moles/Vol] 12 mmol/L 5-15 [facility] Serum or plasma calcium rema urement (mass/volume)Ordered By: Ros Nice on 11-24-2024 Calcium [Mass/Vol] 10.1 mg/dL 7.6-11.0 [facility] Serum or plasma creatinine m easurement (moles/volume)Ordered By: Ros Nice on 11-24-2024 Creatinine [Moles/Vol] 1.8 mg/dL High 0.6-1.0 [facility] Serum or plasma potassium me asurementOrdered By: Ros Nice on 11-24-2024 Potassium [Moles/Vol] 3.9 mmol/L 3.3-5.1 [facility] Serum or plasma sodium measu rement (moles/volume)Ordered By: Ros Nice on 11-24-2024 Sodium [Moles/Vol] 134 mmol/L 133-145 [facility] Serum or plasma urea nitroge n measurement (mass/volume)Ordered By: Ros Nice on 11-24-2024 Urea nitrogen [Mass/Vol] 55 mg/dL High 4-[address] [facility] Sodium [Moles/Vol]Ordered By : Ros Nice on 11-24-2024 Serum or plasma sodium measurement (moles/volume) 134 mmol/L 133-[address] [facility] Urea nitrogen [Mass/Vol]Orde red By: Ros Nice on 11-24-2024 Serum or plasma urea nitrogen measurement (mass/volume) 55 mg/dL High 4-[address] [facility] Basic Metabolic Profile (BMP )on 11-22-2024 BUN Normal 7-[address] [facility] Comment on above: Result Comment: Canc elled via OM: Order cancelled - Patient discharged Performed By: #### L 500.2500 ####[facility] [address] [place], [address] BUN/CRE Normal 10-[address] [facility] Comment on above: Result Comment: Canc elled via OM: Order cancelled - Patient discharged Performed By: #### L 500.2500 ####[facility] [address] [place], [address] CA,Total Normal 8.5-10.[address] [facility] Comment on above: Result Comment: Canc elled via OM: Order cancelled - Patient discharged Performed By: #### L 500.2500 ####[facility] [address] [place], [address] CL Normal 98-[address] [facility] Comment on above: Result Comment: Canc elled via OM: Order cancelled - Patient discharged Performed By: #### L 500.2500 ####[facility] [address] [place], [address] CO2 Normal 21.0-32.[address] [facility] Comment on above: Result Comment: Canc elled via OM: Order cancelled - Patient discharged Performed By: #### L 500.2500 ####[facility] [address] [place], [address] CREAT,SERUM Normal 0.55-1.[address] [facility] Comment on above: Result Comment: Canc elled via OM: Order cancelled - Patient discharged Performed By: #### L 500.2500 ####[facility] [address] [place], [address] EST GFR Normal >[address] [facility] Comment on above: Result Comment: Canc elled via OM: Order cancelled - Patient discharged Performed By: #### L 500.2500 ####[facility] [address] [place], [address] EST GFR - AA Normal >[address] [facility] Comment on above: Result Comment: Canc elled via OM: Order cancelled - Patient discharged Performed By: #### L 500.2500 ####[facility] [address] [place], [address] GAP Normal 5-[address] [facility] Comment on above: Result Comment: Canc elled via OM: Order cancelled - Patient discharged Performed By: #### L 500.2500 ####[facility] [address] [place], [address] GLU Normal 74-[address] [facility] Comment on above: Result Comment: Canc elled via OM: Order cancelled - Patient discharged Performed By: #### L 500.2500 ####[facility] [address] [place], [address] Potassium Normal 3.5-5.[address] [facility] Comment on above: Result Comment: Canc elled via OM: Order cancelled - Patient discharged Performed By: #### L 500.2500 ####[facility] [address] [place], [address] Basic Metabolic Profile (BMP) Normal 136-[address] [facility] Comment on above: Result Comment: Canc elled via OM: Order cancelled - Patient discharged Performed By: #### L 500.2500 ####[facility] [address] [place], [address] Urine Cultureon 11-20-2024 URC Normal [facility] Comment on above: Performed By: #### M 100.2200 ####[facility] [address] [place], [address] Absolute lymphocyte countOrd ered By: Beckie Moeller on 11-17-2024 Lymphocytes Auto (Unsp spec) [#/Vol] 1.09 10*3/uL 0.83-4.[address] [facility] Absolute neutrophil countOrd ered By: Beckie Moeller on 11-17-2024 Neutrophils (Bld) [#/Vol] 4.0 10*3/uL 2.0-7.[address] [facility] Absolute neutrophil count 4.0 X10^3/uL 2.0-7.[address] [facility] Automated lymphocyte count a s percentage of total leukocytesOrdered By: Beckie Moeller on 11-17-2024 Lymphocytes/100 WBC Auto (Unsp spec) 19.2 % 19-[address] [facility] Basic Metabolic Profile (BMP )on 11-17-2024 BUN/CRE 31.2 RATIO High 10-[address] [facility] Comment on above: Performed By: #### L 500.2500 ####[facility] [address] [place], [address] CA,Total 9.8 mg/dL Normal 8.5-10.[address] [facility] Comment on above: Performed By: #### L 500.2500 ####[facility] [address] [place], [address] Chloride [Moles/Vol] 112 mmol/L High 98-107 [facility] Comment on above: Performed By: #### L 500.2500 ####[facility] [address] [place], [address] CO2 [Moles/Vol] 22.0 mmol/L Normal 21.0-32.[address] [facility] Comment on above: Performed By: #### L 500.2500 ####[facility] [address] [place], [address] Creatinine [Mass/Vol] 1.57 mg/dL High 0.55-1.02 [facility] Comment on above: Result Comment: The validity of the calculated GFR GFRAA in patients over70 years has not been determined. Clinical correlation isessential. Performed By: #### L 500.2500 ####[facility] [address] [place], [address] ECRCL 26.93 ml/min Normal [facility] Comment on above: Performed By: #### L 500.2500 ####[facility] [address] [place], [address] EST GFR - AA 40 mL/min Low >[address] [facility] Comment on above: Result Comment: Afri can Sammarinese GFR Calc Performed By: #### L 500.2500 ####[facility] [address] [place], [address] GAP 6 Normal 5-[address] [facility] Comment on above: Performed By: #### L 500.2500 ####[facility] [address] [place], [address] GFR/1.73 sq M.predicted among non-blacks MDRD (S/P/Bld) [Vol rate/Area] 33 mL/min/{1.73_m2} Low >[address] [facility] Comment on above: Result Comment: Non- GFR Calc Performed By: #### L 500.2500 ####[facility] [address] [place], [address] Glucose [Mass/Vol] 91 mg/dL Normal 74-106 [facility] Comment on above: Performed By: #### L 500.2500 ####[facility] [address] [place], [address] Potassium [Moles/Vol] 4.7 mmol/L Normal 3.5-5.1 [facility] Comment on above: Performed By: #### L 500.2500 ####[facility] [address] [place], [address] Sodium [Moles/Vol] 140 mmol/L Normal 136-145 [facility] Comment on above: Performed By: #### L 500.2500 ####[facility] [address] [place], [address] Urea nitrogen [Mass/Vol] 49 mg/dL High 7-[address] [facility] Comment on above: Performed By: #### L 500.2500 ####[facility] [address] [place], [address] BUN/CRE 32.5 RATIO High 10-[address] [facility] Comment on above: Result Comment: CANC EL PER VESNA (CHARGE NURSE), SEE 0219:C68 Performed By: #### L 500.2500 ####[facility] [address] [place], [address] CA,Total 9.7 mg/dL Normal 8.5-10.[address] [facility] Comment on above: Result Comment: CANC EL PER VESNA (CHARGE NURSE), SEE 0219:C68 Performed By: #### L 500.2500 ####[facility] [address] [place], [address] Chloride [Moles/Vol] 111 mmol/L High 98-107 [facility] Comment on above: Result Comment: CANC EL PER VESNA (CHARGE NURSE), SEE 0219:C68 Performed By: #### L 500.2500 ####[facility] [address] [place], [address] CO2 [Moles/Vol] 20.0 mmol/L Low 21.0-32.[address] [facility] Comment on above: Result Comment: CANC EL PER VESNA (CHARGE NURSE), SEE 0219:C68 Performed By: #### L 500.2500 ####[facility] [address] [place], [address] Creatinine [Mass/Vol] 1.57 mg/dL High 0.55-1.02 [facility] Comment on above: Result Comment: The validity of the calculated GFR GFRAA in patients over70 years has not been determined. Clinical correlation isessential. Performed By: #### L 500.2500 ####[facility] [address] [place], [address] ECRCL 26.93 ml/min Normal [facility] Comment on above: Performed By: #### L 500.2500 ####[facility] [address] [place], [address] EST GFR - AA 40 mL/min Low >[address] [facility] Comment on above: Result Comment: Afri can Sammarinese GFR Calc Performed By: #### L 500.2500 ####[facility] [address] [place], [address] GAP 7 Normal 5-[address] [facility] Comment on above: Result Comment: CANC EL YISEL MALAGON (CHARGE NURSE), SEE 0219:C68 Performed By: #### L 500.2500 ####[facility] [address] [place], [address] GFR/1.73 sq M.predicted among non-blacks MDRD (S/P/Bld) [Vol rate/Area] 33 mL/min/{1.73_m2} Low >[address] [facility] Comment on above: Result Comment: Non- GFR Calc Performed By: #### L 500.2500 ####[facility] [address] [place], [address] Glucose [Mass/Vol] 164 mg/dL High 74-106 [facility] Comment on above: Result Comment: Fast ing Glucose result greater than or equal to 126 mg/dLsuggests DIABETES MELLITUS per A.D.A. criteria. Performed By: #### L 500.2500 ####[facility] [address] [place], [address] Potassium [Moles/Vol] 6.0 mmol/L Invalid Interpretation Code 3.5-5.[address] [facility] Comment on above: Result Comment: Crit ical Result(s) Called at: 04:30:38 11/17/2024 by: Gibran. eben Gray RN PCU. Results read back by same. Performed By: #### L 500.2500 ####[facility] [address] [place], [address] Sodium [Moles/Vol] 138 mmol/L Normal 136-145 [facility] Comment on above: Result Comment: CANC EL PER VESNA (CHARGE NURSE), SEE 0219:C68 Performed By: #### L 500.2500 ####[facility] [address] [place], [address] Urea nitrogen [Mass/Vol] 51 mg/dL High 7-[address] [facility] Comment on above: Result Comment: CANC EL PER VESNA (CHARGE NURSE), SEE 0219:C68 Performed By: #### L 500.2500 ####[facility] [address] [place], [address] BUN/CRE 27.6 RATIO High 10-[address] [facility] Comment on above: Performed By: #### L 500.2500 ####[facility] [address] [place], [address] CA,Total 11.0 mg/dL High 8.5-10.[address] [facility] Comment on above: Performed By: #### L 500.2500 ####[facility] [address] [place], [address] Chloride [Moles/Vol] 108 mmol/L High 98-107 [facility] Comment on above: Performed By: #### L 500.2500 ####[facility] [address] [place], [address] CO2 [Moles/Vol] 22.0 mmol/L Normal 21.0-32.[address] [facility] Comment on above: Performed By: #### L 500.2500 ####[facility] [address] [place], [address] Creatinine [Mass/Vol] 1.81 mg/dL High 0.55-1.02 [facility] Comment on above: Result Comment: The validity of the calculated GFR GFRAA in patients over70 years has not been determined. Clinical correlation isessential. Performed By: #### L 500.2500 ####[facility] [address] [place], [address] ECRCL 23.36 ml/min Normal [facility] Comment on above: Performed By: #### L 500.2500 ####[facility] [address] [place], [address] EST GFR - AA 34 mL/min Low >[address] [facility] Comment on above: Result Comment: Afri can Sammarinese GFR Calc Performed By: #### L 500.2500 ####[facility] [address] [place], [address] GAP 5 Normal 5-[address] [facility] Comment on above: Performed By: #### L 500.2500 ####[facility] [address] [place], [address] GFR/1.73 sq M.predicted among non-blacks MDRD (S/P/Bld) [Vol rate/Area] 28 mL/min/{1.73_m2} Low >[address] [facility] Comment on above: Result Comment: Non- GFR Calc Performed By: #### L 500.2500 ####[facility] [address] [place], [address] Glucose [Mass/Vol] 142 mg/dL High 74-106 [facility] Comment on above: Result Comment: Fast ing Glucose result greater than or equal to 126 mg/dLsuggests DIABETES MELLITUS per A.D.A. criteria. Performed By: #### L 500.2500 ####[facility] [address] [place], [address] Potassium [Moles/Vol] 5.6 mmol/L High 3.5-5.1 [facility] Comment on above: Performed By: #### L 500.2500 ####[facility] [address] [place], [address] Sodium [Moles/Vol] 136 mmol/L Normal 136-145 [facility] Comment on above: Performed By: #### L 500.2500 ####[facility] [address] [place], [address] Urea nitrogen [Mass/Vol] 50 mg/dL High 7-[address] [facility] Comment on above: Performed By: #### L 500.2500 ####[facility] [address] [place], [address] Basophil percentageOrdered B y: Beckie White on 11-17-2024 Basophils/100 WBC (Bld) 0.2 % 0-[address] [facility] Basophil percentage 0.2 % 0-1 [facility] Bedside Glucoseon 11-17-2024 FINGERSTICK GLU 133 mg/dL High 74-[address] [facility] Comment on above: Result Comment: MABLE GEMENT OF PATIENT CARE PER NURSING PROTOCOL Performed By: #### L 501.080 ####[facility] [address] [place], [address] FINGERSTICK GLU 157 mg/dL High 74-[address] [facility] Comment on above: Result Comment: MABLE GEMENT OF PATIENT CARE PER NURSING PROTOCOL Performed By: #### L 501.080 ####[facility] [address] [place], [address] FINGERSTICK GLU 83 mg/dL Normal 74-[address] [facility] Comment on above: Result Comment: MABLE GEMENT OF PATIENT CARE PER NURSING PROTOCOL Performed By: #### L 501.080 ####[facility] [address] [place], [address] FINGERSTICK GLU 138 mg/dL High 74-[address] [facility] Comment on above: Result Comment: MABLE GEMENT OF PATIENT CARE PER NURSING PROTOCOL Performed By: #### L 501.080 ####[facility] [address] [place], [address] FINGERSTICK GLU 79 mg/dL Normal 74-[address] [facility] Comment on above: Result Comment: MABLE GEMENT OF PATIENT CARE PER NURSING PROTOCOL Performed By: #### L 501.080 ####[facility] [address] [place], [address] FINGERSTICK GLU 104 mg/dL Normal 74-[address] [facility] Comment on above: Result Comment: MABLE GEMENT OF PATIENT CARE PER NURSING PROTOCOL Performed By: #### L 501.080 ####[facility] [address] [place], [address] FINGERSTICK GLU 164 mg/dL High 74-[address] [facility] Comment on above: Result Comment: MABLE GEMENT OF PATIENT CARE PER NURSING PROTOCOL Performed By: #### L 501.080 ####[facility] [address] [place], [address] Bilirubin Test strip Ql (U)O rdered By: Angel Tay on 11-17-2024 Bilirubin Ql (U) Negative Negative [facility] Blood urea nitrogen (BUN)/cr eatinine ratioOrdered By: Beckie Moeller on 11-17-2024 Urea nitrogen/Creatinine [Mass ratio] 31.2 mg/mg High 10-[address] [facility] Blood urea nitrogen (BUN)/creatinine ratio 31.2 RATIO High 10-[address] [facility] CBC W/Diff, Automatedon 10-30 Absolute Lymph 1.09 X10 3/uL Normal 0.83-4.[address] [facility] Comment on above: Performed By: #### L 100.0100 ####[facility] [address] [place], [address] Absolute Neut 4.0 X10 3/uL Normal 2.0-7.[address] [facility] Comment on above: Performed By: #### L 100.0100 ####[facility] [address] [place], [address] Basophils/100 WBC (Bld) 0.2 % Normal 0-[address] [facility] Comment on above: Performed By: #### L 100.0100 ####[facility] [address] [place], [address] Eosinophils/100 WBC (Bld) 1.9 % Normal 0-[address] [facility] Comment on above: Performed By: #### L 100.0100 ####[facility] [address] [place], [address] Erythrocyte distribution width (RBC) [Ratio] 13.7 % Normal 11.6-14.[address] [facility] Comment on above: Performed By: #### L 100.0100 ####[facility] [address] [place], [address] Hematocrit (Bld) [Volume fraction] 28.6 % Low 37-[address] [facility] Comment on above: Performed By: #### L 100.0100 ####[facility] [address] [place], [address] Hemoglobin (Bld) [Mass/Vol] 9.0 g/dL Low 12.0-15.[address] [facility] Comment on above: Performed By: #### L 100.0100 ####[facility] [address] [place], [address] IG% 0.400 Normal 0.0-0.[address] [facility] Comment on above: Result Comment: IG% - Immature Granulocytes (promyelocytes, myelocytes andmetamyelocytes) > 1% indicates that a LEFT SHIFT is Present. Performed By: #### L 100.0100 ####[facility] [address] [place], [address] Lymphocytes/100 WBC (Bld) 19.2 % Normal 19-[address] [facility] Comment on above: Performed By: #### L 100.0100 ####[facility] [address] [place], [address] MCH (RBC) [Entitic mass] 30.4 pg Normal 27.0-32.[address] [facility] Comment on above: Performed By: #### L 100.0100 ####[facility] [address] [place], [address] MCHC (RBC) [Mass/Vol] 31.5 g/dL Low 32-36 [facility] Comment on above: Performed By: #### L 100.0100 ####[facility] [address] [place], [address] MCV (RBC) [Entitic vol] 96.6 fL Normal 81-[address] [facility] Comment on above: Performed By: #### L 100.0100 ####[facility] [address] [place], [address] Monocytes/100 WBC (Bld) 7.9 % Normal 0-[address] [facility] Comment on above: Performed By: #### L 100.0100 ####[facility] [address] [place], [address] Neutrophils/100 WBC (Bld) 70.4 % High 47-[address] [facility] Comment on above: Performed By: #### L 100.0100 ####[facility] [address] [place], [address] Nucleated RBC (Bld) [#/Vol] 0 10*3/uL Normal 0-[address] [facility] Comment on above: Performed By: #### L 100.0100 ####[facility] [address] [place], [address] Platelet mean volume (Bld) [Entitic vol] 9.6 fL Normal 6.2-12.[address] [facility] Comment on above: Performed By: #### L 100.0100 ####[facility] [address] [place], [address] Platelets (Bld) [#/Vol] 173 10*3/uL Normal 150-[address] [facility] Comment on above: Performed By: #### L 100.0100 ####[facility] [address] [place], [address] RBC (Bld) [#/Vol] 2.96 10*6/uL Low 4.2-5.4 [facility] Comment on above: Performed By: #### L 100.0100 ####[facility] [address] [place], [address] RDW SD 48.7 fl High 35.1-43.[address] [facility] Comment on above: Performed By: #### L 100.0100 ####[facility] [address] [place], [address] WBC (Bld) [#/Vol] 5.7 10*3/uL Normal 4.4-11.0 [facility] Comment on above: Performed By: #### L 100.0100 ####[facility] [address] [place], [address] Calcium [Mass/Vol]Ordered By : Beckie Moeller on 11-17-2024 Serum or plasma calcium measurement (mass/volume) 9.8 mg/dL 8.5-10.[address] [facility] Carbon dioxide measurementOr dered By: Beckie Moeller on 11-17-2024 CO2 [Moles/Vol] 22.0 mmol/L 21.0-32.[address] [facility] Carbon dioxide measurement 22.0 mmol/L 21.0-32.[address] [facility] Chloride measurementOrdered By: Beckie Moeller on 11-17-2024 Chloride [Moles/Vol] 112 mmol/L High 98-107 [facility] Chloride measurement 112 mmol/L High 98-107 [facility] Cholesterol [Mass/Vol]Ordere d By: Beckie Moeller on 11-17-2024 Serum or plasma cholesterol measurement (mass/volume) 120 mg/dL <[address] [facility] Clarity (U)Ordered By: Estrella Tay on 11-17-2024 Urine clarity Sl. Cloudy Clear [facility] Color (U)Ordered By: Nhan Tay on 11-17-2024 Urine color determination Yellow Yellow [facility] Consultation - Nephrologyon 11-17-2024 Consultation - Nephrology Normal [facility] Creatinine [Mass/Vol]Ordered By: Beckie Moeller on 11-17-2024 Serum or plasma creatinine measurement (mass/volume) 1.57 mg/dL High 0.55-1.[address] [facility] Discharge Instructionon 10-30 Discharge Instruction Normal [facility] Eosinophil percentageOrdered By: Beckie Moeller on 11-17-2024 Eosinophils/100 WBC (Bld) 1.9 % 0-[address] [facility] Eosinophil percentage 1.9 % 0-5 [facility] Erythrocyte distribution wid th (RBC) [Ratio]Ordered By: Beckie Moeller on 11-17-2024 Erythrocyte distribution width ratio 13.7 % 11.6-14.[address] [facility] Erythrocyte distribution width standard deviation 48.7 fl High 35.1-43.[address] [facility] Erythrocyte distribution wid th ratioOrdered By: Beckie Moeller on 11-17-2024 Erythrocyte distribution width (RBC) [Ratio] 13.7 % 11.6-14.[address] [facility] Erythrocyte distribution wid th standard deviationOrdered By: Beckie Moeller on 11-17-2024 Erythrocyte distribution width (RBC) [Entitic vol] 48.7 fL High 35.1-43.[address] [facility] Erythrocyte distribution width (RBC) [Ratio] 48.7 fl High 35.1-43.[address] [facility] Estimated glomerular filtrat ion rate (GFR) AmericanOrdered By: Beckie Moeller on 11-17-2024 Estimated GFR (MDRD) Amer 40 mL/min Low >[address] [facility] Comment on above: GFR Calc Estimated glomerular filtration rate (GFR) 40 mL/min Low >[address] [facility] Estimation of creatinine ganesh aranceOrdered By: Beckie Moeller on 11-17-2024 Estimated Creatinine Clearance Calc 26.93 ml/min [facility] Estimation of creatinine clearance 26.93 ml/min [facility] Glomerular filtration rate ( GFR) estimationOrdered By: Beckie Moeller on 11-17-2024 Estimated GFR (MDRD) Non-Af Amer 33 mL/min Low >[address] [facility] Comment on above: Non- GFR Calc GFR/1.73 sq M.predicted among non-blacks MDRD (S/P/Bld) [Vol rate/Area] 33 mL/min/{1.73_m2} Low >[address] [facility] Glomerular filtration rate (GFR) estimation 33 mL/min Low >[address] [facility] Glucose Ql (U)Ordered By: Adolfo Tay on 11-17-2024 Urine Glucose (UA) Normal mg/dl Normal [facility] Glucose measurementOrdered B y: Beckie Moeller on 11-17-2024 Glucose [Mass/Vol] 91 mg/dL 74-106 [facility] Glucose measurement 91 mg/dL 74-106 [facility] Glucose measurement at bedsi deOrdered By: Angel Tay on 11-17-2024 Bedside Glucose (Misc Panel) 133 mg/dL High 74-[address] [facility] Comment on above: MANAGEMENT OF PATIEN T CARE PER NURSING PROTOCOL Glucose [Mass/Vol] 133 mg/dL High 74-106 [facility] Glucose measurement at bedside 133 mg/dL High 74-[address] [facility] HbA1c (Bld) [Mass fraction]O rdered By: Beckie Moeller on 11-17-2024 Hemoglobin A1c percentage 6.4 % High 3.8-5.[address] [facility] Hematocrit Auto (Bld) [Volum e fraction]Ordered By: Beckie Moeller on 11-17-2024 Hematocrit (Bld) [Volume fraction] 28.6 % Low 37-[address] [facility] Automated blood hematocrit (percentage) 28.6 % Low 37-[address] [facility] Hemoglobin A1con 11-17-2024 HbA1c (Bld) [Mass fraction] 6.4 % High 3.8-5.[address] [facility] Comment on above: Result Comment: Norm al < 5.7 % Prediabetic 5.7 - 6.4 % Diabetic >or= 6.5 % Please note range changes. Performed By: #### L 501.9994, L500.4100, L501.9568 ####[facility] [address] [place], [address] Hemoglobin A1c percentageOrd ered By: Beckie Moeller on 11-17-2024 HbA1c (Bld) [Mass fraction] 6.4 % High 3.8-5.[address] [facility] Comment on above: Normal < 5.7 % Predi abetic 5.7 - 6.4 % Diabetic >or= 6.5 % Please note range changes. Hemoglobin measurementOrdere d By: Beckie Moeller on 11-17-2024 Hemoglobin (Bld) [Mass/Vol] 9.0 g/dL Low 12.0-15.[address] [facility] Hemoglobin measurement 9.0 g/dL Low 12.0-15.0 [facility] High density lipoprotein (HD L) measurementOrdered By: Beckie Moeller on 11-17-2024 Cholesterol in HDL [Mass/Vol] 68 mg/dL >[address] [facility] Comment on above: The drugs N-Acetylcy steine and Metamizole may falsely depress this assay. Reference Range HDL <40 mg/dL Low HDL Cholesterol HDL >or= 60 mg/dL High HDL Cholesterol High density lipoprotein (HDL) measurement 68 mg/dL >[address] [facility] High density lipoprotein (HDL) measurement 68 mg/dL >[address] [facility] Immature granulocytes/100 WB C Auto (Bld)Ordered By: Beckie Moeller on 11-17-2024 Immature granulocytes/100 WBC (Bld) 0.400 % 0.0-0.[address] [facility] Comment on above: IG% - Immature Granu locytes (promyelocytes, myelocytes and metamyelocytes) > 1% indicates that a LEFT SHIFT is Present. Automated immature granulocyte percentage 0.400 % 0.0-0.[address] [facility] Ketones Test strip Ql (U)Ord ered By: Angel Tay on 11-17-2024 Ketones Ql (U) Negative Negative [facility] Leukocyte esterase Test stri p Ql (U)Ordered By: Angel Tay on 11-17-2024 Urine leukocyte esterase detection by dipstick 500 /ul High Negative [facility] Lipid Profileon 11-17-2024 Cholesterol [Mass/Vol] 120 mg/dL Normal 200 [facility] Comment on above: Result Comment: <200 mg/dL Desirable 200-240 mg/dL Borderline >240 mg/dL High Risk Performed By: #### L 501.9985, L500.4100, L501.9520 ####[facility] [address] [place], [address] Cholesterol in HDL [Mass/Vol] 68 mg/dL Normal [facility] Comment on above: Result Comment: The drugs N-Acetylcysteine and Metamizole may falselydepress this assay. Reference Range HDL <40 mg/dL Low HDL Cholesterol HDL >or= 60 mg/dL High HDL Cholesterol Performed By: #### L [id number], L500.4100, L501.9520 ####[facility] [address] [place], [address] Cholesterol in LDL [Mass/Vol] 45 mg/dL Normal 0-[address] [facility] Comment on above: Performed By: #### L [id number], [id number], [id number] ####[facility] [address] [place], [address] Cholesterol in VLDL [Mass/Vol] 7 mg/dL Normal 5-[address] [facility] Comment on above: Performed By: #### L [id number], [id number], [id number] ####[facility] [address] [place], [address] Triglyceride [Mass/Vol] 34 mg/dL Normal [facility] Comment on above: Result Comment: The drugs N-Acetylcysteine and Metamizole may falselydepress this assay.Serum Triglycerides Reference Interval Normal <150 mg/dL Borderline high 150 - 199 mg/dL High 200 - 499 mg/dL Very High > or = 500 mg/dL Performed By: #### L [id number], L500.4100, [id number] ####[facility] [address] [place], [address] Low density lipoprotein (LDL ) cholesterol measurementOrdered By: Beckie Moeller on 02-19-2025 Cholesterol in LDL [Mass/Vol] 45 mg/dL 0-[address] [facility] Low density lipoprotein (LDL) cholesterol measurement 45 mg/dL 0-[address] [facility] Low density lipoprotein (LDL) cholesterol measurement 45 mg/dL 0-[address] [facility] Lymphocytes Auto (Unsp spec) [#/Vol]Ordered By: Beckie Moeller on 11-17-2024 Lymphocytes (Bld) [#/Vol] 1.09 10*3/uL 0.83-4.[address] [facility] Absolute lymphocyte count 1.09 X10^3/uL 0.83-4.[address] [facility] Lymphocytes/100 WBC Auto (Un sp spec)Ordered By: Beckie Moeller on 11-17-2024 Lymphocytes/100 WBC (Bld) 19.2 % [facility] Automated lymphocyte count as percentage of total leukocytes 19.2 % [facility] MCV (RBC) [Entitic vol]Order ed By: Beckie Moeller on 11-17-2024 MCV (mean corpuscular volume) determination 96.6 fL 81-[address] [facility] MCV (mean corpuscular volume ) determinationOrdered By: Beckie Sunni on 11-17-2024 MCV (RBC) [Entitic vol] 96.6 fL 81-[address] [facility] Mean corpuscular hemoglobin (MCH) determinationOrdered By: Beckie Moeller on 11-17-2024 MCH (RBC) [Entitic mass] 30.4 pg 27.0-32.[address] [facility] Mean corpuscular hemoglobin (MCH) determination 30.4 pg 27.0-32.[address] [facility] Mean corpuscular hemoglobin concentration (MCHC) determinationOrdered By: Beckie Moeller on 11-17-2024 MCHC (RBC) [Mass/Vol] 31.5 g/dL Low 32-36 [facility] Mean corpuscular hemoglobin concentration (MCHC) determination 31.5 g/dL Low 32-[address] [facility] Mean platelet volume determi nationOrdered By: Beckie Moeller on 11-17-2024 Platelet mean volume (Bld) [Entitic vol] 9.6 fL 6.2-12.[address] [facility] Mean platelet volume determination 9.6 fl 6.2-12.[address] [facility] Monocyte percentageOrdered B y: Beckie Moeller on 11-17-2024 Monocytes/100 WBC (Bld) 7.9 % 0-[address] [facility] Monocyte percentage 7.9 % 0-10 [facility] Neutrophil percentageOrdered By: Beckie White on 11-17-2024 Neutrophils/100 WBC (Bld) 70.4 % High 47-[address] [facility] Neutrophil percentage 70.4 % High 47-70 [facility] Nitrite Test strip Ql (U)Ord ered By: Angel Tay on 11-17-2024 Nitrite Ql (U) Negative Negative [facility] Nucleated red blood cell per centageOrdered By: Beckie Moeller on 11-17-2024 Nucleated RBC/100 WBC (Bld) [Ratio] 0 % 0-[address] [facility] Nucleated red blood cell percentage 0 % 0-[address] [facility] Platelet countOrdered By: Tamra lyle Sunni on 11-17-2024 Platelets (Bld) [#/Vol] 173 10*3/uL 150-[address] [facility] Platelet count 173 K/mm3 150-[address] [facility] Potassium measurementOrdered By: Beckie Moeller on 11-17-2024 Potassium [Moles/Vol] 4.7 mmol/L 3.5-5.1 [facility] Potassium measurement 4.7 mmol/L 3.5-5.1 [facility] Protein Test strip Ql (U)Ord ered By: Angel Tay on 11-17-2024 Protein Ql (U) 15 mg/dl High Negative [facility] Urine protein assay by test strip, semi-quantitative 15 mg/dl High Negative [facility] RBC Auto (Bld) [#/Vol]Ordere d By: Beckie Moeller on 11-17-2024 RBC (Bld) [#/Vol] 2.96 10*6/uL Low 4.2-5.4 [facility] Automated blood erythrocyte count 2.96 M/mm3 Low 4.2-5.[address] [facility] Serum anion gap measurementO rdered By: Beckie Moeller on 11-17-2024 Anion gap [Moles/Vol] 6 mmol/L 5-15 [facility] Serum anion gap measurement 6 5-[address] [facility] Serum or plasma calcium rema urement (mass/volume)Ordered By: Beckie Moeller on 11-17-2024 Calcium [Mass/Vol] 9.8 mg/dL 8.5-10.1 [facility] Serum or plasma cholesterol measurement (mass/volume)Ordered By: Beckie Moeller on 11-17-2024 Cholesterol [Mass/Vol] 120 mg/dL <200 [facility] Comment on above: <200 mg/dL Desirable 200-240 mg/dL Borderline >240 mg/dL High Risk Serum or plasma creatinine m easurement (mass/volume)Ordered By: Beckie Moeller on 11-17-2024 Creatinine [Mass/Vol] 1.57 mg/dL High 0.55-1.02 [facility] Comment on above: The validity of the calculated GFR & GFRAA in patients over 70 years has not been determined. Clinical correlation is essential. Serum or plasma thyroid stim ulating hormone (TSH) measurement (units/volume)Ordered By: Beckie Moeller on 11-17-2024 TSH Qn 1.900 uIU/mL 0.358-3.[address] [facility] Serum or plasma urea nitroge n measurement (mass/volume)Ordered By: Beckie Moeller on 11-17-2024 Urea nitrogen [Mass/Vol] 49 mg/dL High 7-[address] [facility] Sodium levelOrdered By: Thomas Moeller on 11-17-2024 Sodium [Moles/Vol] 140 mmol/L 136-145 [facility] Sodium level 140 mmol/L 136-[address] [facility] Specific gravity (U) [Rel de nsity]Ordered By: Angel Tay on 11-17-2024 Urine specific gravity measurement 1.015 1.002-1.[address] [facility] TSH QnOrdered By: Beckie hines on 11-17-2024 Thyroid Stimulating Hormone (TSH) 1.900 uIU/mL 0.358-3.[address] [facility] Serum or plasma thyroid stimulating hormone (TSH) measurement (units/volume) 1.900 uIU/mL 0.358-3.[address] [facility] Thyroid Stim Hormone (TSH)on 11-17-2024 TSH 1.900 uIU/mL Normal 0.358-3.[address] [facility] Comment on above: Performed By: #### L 501.9977, L500.4108, L501.9520 ####[facility] [address] [place], [address] Triglycerides measurementOrd ered By: Beckie Sunni on 11-17-2024 Triglyceride [Mass/Vol] 34 mg/dL <[address] [facility] Comment on above: The drugs N-Acetylcy steine and Metamizole may falsely depress this assay.Serum Triglycerides Reference Interval Normal <150 mg/dL Borderline high 150 - 199 mg/dL High 200 - 499 mg/dL Very High > or = 500 mg/dL Triglycerides measurement 34 mg/dL <[address] [facility] Urea nitrogen [Mass/Vol]Orde red By: Beckie Sunni on 11-17-2024 Serum or plasma urea nitrogen measurement (mass/volume) 49 mg/dL High 7-[address] [facility] Urinalysis, Routine (Dipstic k)on 11-17-2024 BILIRUBIN URINE Negative Normal Negative [facility] Comment on above: Order Comment: CLEAN CATCH Performed By: #### L [id number] ####[facility] [address] [place], [address] Clarity (U) Sl. Cloudy Normal Clear [facility] Comment on above: Order Comment: CLEAN CATCH Performed By: #### L 400.2010 ####[facility] [address] [place], [address] Color (U) Yellow Normal Yellow [facility] Comment on above: Order Comment: CLEAN CATCH Performed By: #### L 400.2010 ####[facility] [address] [place], [address] GLUCOSE, UR Normal Normal Normal [facility] Comment on above: Order Comment: CLEAN CATCH Performed By: #### L 400.2010 ####[facility] [address] [place], [address] KETONE UR Negative Normal Negative [facility] Comment on above: Order Comment: CLEAN CATCH Performed By: #### L 400.2010 ####[facility] [address] [place], [address] LEUK ESTERASE 500 /ul Abnormal Negative [facility] Comment on above: Order Comment: CLEAN CATCH Performed By: #### L 400.2010 ####[facility] [address] [place], [address] Nitrite Ql (U) Negative Normal Negative [facility] Comment on above: Order Comment: CLEAN CATCH Performed By: #### L 400.2010 ####[facility] [address] [place], [address] OCCULT BLOOD-UR 25 /ul Abnormal Negative [facility] Comment on above: Order Comment: CLEAN CATCH Performed By: #### L 400.2010 ####[facility] [address] [place], [address] pH UR 6.0 Normal 5.0 - 8.[address] [facility] Comment on above: Order Comment: CLEAN CATCH Performed By: #### L 400.2010 ####[facility] [address] [place], [address] PROT DIPSTX 15 mg/dl Abnormal Negative [facility] Comment on above: Order Comment: CLEAN CATCH Performed By: #### L 400.2010 ####[facility] [address] [place], [address] SP.GR. DIPSTX 1.015 Normal 1.002-1.[address] [facility] Comment on above: Order Comment: CLEAN CATCH Performed By: #### L 400.2010 ####[facility] [address] [place], [address] UROBILI Normal Normal Normal [facility] Comment on above: Order Comment: CLEAN CATCH Performed By: #### L 400.2010 ####[facility] [address] [place], [address] Urine blood detectionOrdered By: Angel Tay on 11-17-2024 Urine Occult Blood 25 /ul High Negative [facility] Urine blood detection 25 /ul High Negative [facility] Urine clarityOrdered By: Ingrid Tay on 11-17-2024 Clarity (U) Sl. Cloudy Clear [facility] Urine color determinationOrd ered By: Angel Tay on 11-17-2024 Color (U) Yellow Yellow [facility] Urine cultureOrdered By: Anel Nice on 11-17-2024 Bacteria identified Cx Nom (U) Presumptive E. coli Abnormal [facility] Urine culture Presumptive E. coli Abnormal [facility] Urine glucose detectionOrder ed By: Angel Tay on 11-17-2024 Glucose Ql (U) Normal mg/dl Normal [facility] Urine glucose detection Normal mg/dl Normal [facility] Urine leukocyte esterase det ection by dipstickOrdered By: Angel Tay on 11-17-2024 Leukocyte esterase Test strip Ql (U) 500 /ul High Negative [facility] Urine pHOrdered By: Pipe Tay on 11-17-2024 pH (U) 6.0 [pH] 5.0 - 8.[address] [facility] Urine specific gravity measu rementOrdered By: Angel Tay on 11-17-2024 Specific gravity (U) [Rel density] 1.015 1.002-1.[address] [facility] Urine total bilirubin detect ion by test stripOrdered By: Angel Tay on 11-17-2024 Urine total bilirubin detection by test strip Negative Negative [facility] Urine urobilinogen measureme ntOrdered By: Angel Tay on 11-17-2024 Urobilinogen Ql (U) Normal mg/dl Normal [facility] Urobilinogen Ql (U)Ordered B y: Angel Tay on 11-17-2024 Urine Urobilinogen Normal mg/dl Normal [facility] Very low density lipoprotein (VLDL) cholesterol measurementOrdered By: Beckie Moeller on 11-17-2024 Very low density lipoprotein (VLDL) cholesterol measurement 7 mg/dL 5-[address] [facility] VLDL Cholesterol 7 mg/dL 5-[address] [facility] Very low density lipoprotein (VLDL) cholesterol measurement 7 mg/dL 5-[address] [facility] White blood cell (WBC) count Ordered By: Beckie Moeller on 11-17-2024 WBC (Bld) [#/Vol] 5.7 10*3/uL 4.4-11.0 [facility] White blood cell (WBC) count 5.7 K/mm3 4.4-11.[address] [facility] pH (U)Ordered By: Angel Tay on 11-17-2024 Urine pH 6.0 5.0 - 8.[address] [facility] Basic Metabolic Profile (BMP )on 11-16-2024 BUN/CRE 29.0 RATIO High 10-[address] [facility] Comment on above: Order Comment: Comme nts: add to ED labs if able.add to ED labs if able. Performed By: #### L 503.0105, L503.6030, L503.6550, L506.0250, L500.2500 ####[facility] [address] [facility] [address] [place],Total 10.3 mg/dL High 8.5-10.[address] [facility] Comment on above: Order Comment: Comme nts: add to ED labs if able.add to ED labs if able. Performed By: #### L 503.0105, L503.6030, L503.6550, L506.0250, L500.2500 ####[facility] [address] [facility] [address] Chloride [Moles/Vol] 112 mmol/L High 98-107 [facility] Comment on above: Order Comment: Comme nts: add to ED labs if able.add to ED labs if able. Performed By: #### L 503.0105, L503.6030, L503.6550, L506.0250, L500.2500 ####[facility] [address] [place], [address] CO2 [Moles/Vol] 21.0 mmol/L Normal 21.0-32.[address] [facility] Comment on above: Order Comment: Comme nts: add to ED labs if able.add to ED labs if able. Performed By: #### L 503.0105, L503.6030, L503.6550, L506.0250, L500.2500 ####[facility] [address] [place], [address] Creatinine [Mass/Vol] 1.76 mg/dL High 0.55-1.02 [facility] Comment on above: Order Comment: Comme nts: add to ED labs if able.add to ED labs if able. Result Comment: The validity of the calculated GFR GFRAA in patients over70 years has not been determined. Clinical correlation isessential. Performed By: #### L 503.0105, L503.6030, L503.6550, L506.0250, L500.2500 ####[facility] [address] [place], [address] ECRCL 24.54 ml/min Normal [facility] Comment on above: Order Comment: Comme nts: add to ED labs if able.add to ED labs if able. Performed By: #### L 503.0105, L503.6030, L503.6550, L506.0250, L500.2500 ####[facility] [address] [facility] [address] EST GFR - AA 35 mL/min Low >[address] [facility] Comment on above: Order Comment: Comme nts: add to ED labs if able.add to ED labs if able. Result Comment: Afri can [place] GFR Calc Performed By: #### L 503.0105, L503.6030, L503.6550, L506.0250, L500.2500 ####[facility] [address] [place], [place], [phone] GAP 5 Normal 5-[address] [facility] Comment on above: Order Comment: Comme nts: add to ED labs if able.add to ED labs if able. Performed By: #### L 503.0105, L503.6030, L503.6550, L506.0250, L500.2500 ####[facility] [address] [place], [address] GFR/1.73 sq M.predicted among non-blacks MDRD (S/P/Bld) [Vol rate/Area] 29 mL/min/{1.73_m2} Low >[address] [facility] Comment on above: Order Comment: Comme nts: add to ED labs if able.add to ED labs if able. Result Comment: Non- GFR Calc Performed By: #### L 503.0105, L503.6030, L503.6550, L506.0250, L500.2500 ####[facility] [address] [place], [address] Glucose [Mass/Vol] 50 mg/dL Low 74-106 [facility] Comment on above: Order Comment: Comme nts: add to ED labs if able.add to ED labs if able. Performed By: #### L 503.0105, L503.6030, L503.6550, L506.0250, L500.2500 ####[facility] [address] [place], [address] Potassium [Moles/Vol] 5.4 mmol/L High 3.5-5.1 [facility] Comment on above: Order Comment: Comme nts: add to ED labs if able.add to ED labs if able. Performed By: #### L 503.0105, L503.6030, L503.6550, L506.0250, L500.2500 ####[facility] [address] [place], [address] Sodium [Moles/Vol] 139 mmol/L Normal 136-145 [facility] Comment on above: Order Comment: Comme nts: add to ED labs if able.add to ED labs if able. Performed By: #### L 503.0105, L503.6030, L503.6550, L506.0250, L500.2500 ####[facility] [address] [place], [address] Urea nitrogen [Mass/Vol] 51 mg/dL High 7-[address] [facility] Comment on above: Order Comment: Comme nts: add to ED labs if able.add to ED labs if able. Performed By: #### L 503.0105, L503.6030, L503.6550, L506.0250, L500.2500 ####[facility] [address] [place], [address] BUN/CRE 26.0 RATIO High 10-[address] [facility] Comment on above: Order Comment: 'TROP ' Serial specimen #1, #2 or #3: 1 Performed By: #### L 100.0100, L501.4020, L500.2500 ####[facility] [address] [place], [address] CA,Total 9.8 mg/dL Normal 8.5-10.[address] [facility] Comment on above: Order Comment: 'TROP ' Serial specimen #1, #2 or #3: 1 Performed By: #### L 100.0100, L501.4020, L500.2500 ####[facility] [address] [place], [address] Chloride [Moles/Vol] 108 mmol/L High 98-107 [facility] Comment on above: Order Comment: 'TROP ' Serial specimen #1, #2 or #3: 1 Performed By: #### L 100.0100, L501.4020, L500.2500 ####[facility] [address] [place], [address] CO2 [Moles/Vol] 20.0 mmol/L Low 21.0-32.[address] [facility] Comment on above: Order Comment: 'TROP ' Serial specimen #1, #2 or #3: 1 Performed By: #### L 100.0100, L501.4020, L500.2500 ####[facility] [address] [place], [address] Creatinine [Mass/Vol] 2.08 mg/dL High 0.55-1.02 [facility] Comment on above: Order Comment: 'TROP ' Serial specimen #1, #2 or #3: 1 Result Comment: The validity of the calculated GFR GFRAA in patients over70 years has not been determined. Clinical correlation isessential. Performed By: #### L 100.0100, L501.4020, L500.2500 ####[facility] [address] [place], [address] ECRCL 20.76 ml/min Normal [facility] Comment on above: Order Comment: 'TROP ' Serial specimen #1, #2 or #3: 1 Performed By: #### L 100.0100, L501.4020, L500.2500 ####[facility] [address] [place], [address] EST GFR - AA 29 mL/min Low >[address] [facility] Comment on above: Order Comment: 'TROP ' Serial specimen #1, #2 or #3: 1 Result Comment: Afri can [place] GFR Calc Performed By: #### L 100.0100, L501.4020, L500.2500 ####[facility] [address] [place], [address] GAP 8 Normal 5-[address] [facility] Comment on above: Order Comment: 'TROP ' Serial specimen #1, #2 or #3: 1 Performed By: #### L 100.0100, L501.4020, L500.2500 ####[facility] [address] [place], [address] GFR/1.73 sq M.predicted among non-blacks MDRD (S/P/Bld) [Vol rate/Area] 24 mL/min/{1.73_m2} Low >[address] [facility] Comment on above: Order Comment: 'TROP ' Serial specimen #1, #2 or #3: 1 Result Comment: Non- GFR Calc Performed By: #### L 100.0100, L501.4020, L500.2500 ####[facility] [address] [place], [address] Glucose [Mass/Vol] 272 mg/dL High 74-106 [facility] Comment on above: Order Comment: 'TROP ' Serial specimen #1, #2 or #3: 1 Result Comment: Gluc ose result greater than or equal to 200 mg/dLsuggests DIABETES MELLITUS per A.D.A. criteria. Performed By: #### L 100.0100, L501.4020, L500.2500 ####[facility] [address] [place], [address] Potassium [Moles/Vol] 6.5 mmol/L Invalid Interpretation Code 3.5-5.[address] [facility] Comment on above: Order Comment: 'TROP ' Serial specimen #1, #2 or #3: 1 Result Comment: Crit ical Result(s) Called at: 17:17:58 11/16/2024 by:Monica Zepeda to Josr. Results read back by same. Performed By: #### L 100.0100, L501.4020, L500.2500 ####[facility] [address] [place], [address] Sodium [Moles/Vol] 135 mmol/L Low 136-145 [facility] Comment on above: Order Comment: 'TROP ' Serial specimen #1, #2 or #3: 1 Performed By: #### L 100.0100, L501.4020, L500.2500 ####[facility] [address] [place], [address] Urea nitrogen [Mass/Vol] 54 mg/dL High 7-[address] [facility] Comment on above: Order Comment: 'TROP ' Serial specimen #1, #2 or #3: 1 Performed By: #### L 100.0100, L501.4020, L500.2500 ####[facility] [address] [place], [address] Basic metabolic 2000 panelOr dered By: Ros Mcgraw on 11-16-2024 Anion gap [Moles/Vol] 8 mmol/L 8 - 15 mmol/L [facility] Calcium [Mass/Vol] 10.8 mg/dL High 8.5 - 10. 2 mg/dL [facility] Chloride [Moles/Vol] 105 mmol/L 98 - 10 7 mmol/L [facility] CO2 [Moles/Vol] 23 mmol/L 22 - 30 mmol/L [facility] Creatinine [Mass/Vol] 1.96 mg/dL High 0.58 - 0.96 mg/dL [facility] GFR/1.73 sq M.predicted among non-blacks MDRD (S/P/Bld) [Vol rate/Area] 25 mL/min/{1.73_m2} Low - PINF [facility] Comment on above: Estimated Glomerular Filtration Rate (eGFR) is calculated using the 2020 CKD-EPI creatinine equation. This equation utilizes serum creatinine, sex, and age as parameters. The creatinine assay has traceable calibration to isotope dilution-mass spectrometry. Refer to KDIGO guidelines for clinical interpretation. In patients with unstable renal function, e.g. those with acute kidney injury, the eGFR may not accurately reflect actual GFR. Glucose [Mass/Vol] 163 mg/dL High 74 - 99 mg/dL [facility] Comment on above: The [place] Diab[employer] s Association (ADA) provides guidance for cutoff values for fasting glucose and random glucose. The ADA defines fasting as no caloric intake for at least 8 hours. Fasting plasma glucose results between 100 to 125 mg/dL indicate increased risk for diabetes (prediabetes). Fasting plasma glucose results greater than or equal to 126 mg/dL meet the criteria for diagnosis of diabetes. In the absence of unequivocal hyperglycemia, results should be confirmed by repeat testing. In a patient with classic symptoms of hyperglycemia or hyperglycemic crisis, random plasma glucose results greater than or equal to 200 mg/dL meet the criteria for diagnosis of diabetes. Reference: Standards of Medical Care in Diabetes 2016, [place] [employer]. Diabetes Care. 2016.39(Suppl 1). Interpretation and review of laboratory results Abnormal [facility] Potassium [Moles/Vol] 6.2 mmol/L Critically high 3.7 - 5.1 mmol/L [facility] Sodium [Moles/Vol] 136 mmol/L 136 - 144 mmol/L [facility] Urea nitrogen [Mass/Vol] 55 mg/dL High 7 - 21 mg/dL [facility] Basic metabolic 2000 panelon 11-16-2024 Anion gap [Moles/Vol] 8 mmol/L Normal 8-15 [facility] Comment on above: Order Comment: Speci men Type: BLOOD SPECIMENOrdering Facility: [facility] Address: [address] [place], [place] [id number] Performed By: #### 2 4321-2 ####[facility]ITAL[facility]CL[facility] [id number] [place] [address] [place] Calcium [Mass/Vol] 10.8 mg/dL High 8.5-10.2 [facility] Comment on above: Order Comment: Speci men Type: BLOOD SPECIMENOrdering Facility: [facility] Address: [address] [place] [address] Performed By: #### 2 4321-2 ####[facility]NCGUN[facility] [id number] [place] [address] [place] Chloride [Moles/Vol] 105 mmol/L Normal 98-107 [facility] Comment on above: Order Comment: Speci men Type: BLOOD SPECIMENOrdering Facility: [facility] Address: [address] [place] [address] Performed By: #### 2 4321-2 ####[facility] [id number] [place] [address] [place] CO2 [Moles/Vol] 23 mmol/L Normal 22-30 [facility] Comment on above: Order Comment: Speci men Type: BLOOD SPECIMENOrdering Facility: [facility] Address: [address] [place] [address] Performed By: #### 2 4321-2 ####[facility]A [id number] [place] [address] [place] Creatinine [Mass/Vol] 1.96 mg/dL High 0.58-0.96 [facility] Comment on above: Order Comment: Speci men Type: BLOOD SPECIMENOrdering Facility: [facility] Address: [address] [place], [place] [id number] Performed By: #### 2 4321-2 ####[facility] [id number] [place] [address] [place] Creatinine and Glomerular filtration rate.predicted panel (S/P/Bld) 25 mL/min/1.73m??? Low >=60 [facility] Comment on above: Order Comment: Nikolai de luna Type: BLOOD SPECIMENOrdering Facility: [facility] Address: [address] [place] [address] Result Comment: Raina mated Glomerular Filtration Rate (eGFR) is calculated using the 2020 CKD-EPI creatinine equation. This equation utilizes serum creatinine, sex, and age as parameters. The creatinine assay has traceable calibration to isotope dilution-mass spectrometry. Refer to KDIGO guidelines for clinical interpretation. In patients with unstable renal function, e.g. those with acute kidney injury, the eGFR may not accurately reflect actual GFR. Performed By: #### 2 4321-2 ####[facility] [id number] [place] [address] [place] Glucose [Mass/Vol] 163 mg/dL High 74-99 [facility] Comment on above: Order Comment: Nikolai de luna Type: BLOOD SPECIMENOrdering Facility: [facility] Address: [address] [place] [address] Result Comment: The [place] Diabetes Association (ADA) provides guidance for cutoff values for fasting glucose and random glucose. The ADA defines fasting as no caloric intake for at least 8 hours. Fasting plasma glucose results between 100 to 125 mg/dL indicate increased risk for diabetes (prediabetes). Fasting plasma glucose results greater than or equal to 126 mg/dL meet the criteria for diagnosis of diabetes. In the absence of unequivocal hyperglycemia, results should be confirmed by repeat testing. In a patient with classic symptoms of hyperglycemia or hyperglycemic crisis, random plasma glucose results greater than or equal to 200 mg/dL meet the criteria for diagnosis of diabetes. Reference: Standards of Medical Care in Diabetes 2016, [place] Diabetes Association. Diabetes Care. 2016.39(Suppl 1). Performed By: #### 2 4321-2 ####[facility]ITALNCLIA [id number] [place] [address] [place] Potassium [Moles/Vol] 6.2 mmol/L Critically high 3.7-5.1 [facility] Comment on above: Order Comment: Speci men Type: BLOOD SPECIMENOrdering Facility: [facility] Address: [address] [place] [address] Performed By: #### 2 4321-2 ####[facility] HOSPITALWALLIA [id number] [place] [address] [place] Sodium [Moles/Vol] 136 mmol/L Normal 136-144 [facility] Comment on above: Order Comment: Speci men Type: BLOOD SPECIMENOrdering Facility: [facility] Address: [address] [place] [address] Performed By: #### 2 4321-2 ####[facility]ITALA [id number] [place] [address] [place] Urea nitrogen [Mass/Vol] 55 mg/dL High 7-21 [facility] Comment on above: Order Comment: Speci men Type: BLOOD SPECIMENOrdering Facility: [facility] Address: [address] [place] [address] Performed By: #### 2 4321-2 ####[facility]ALL[facility] [id number] [place] [address] [place] Bedside Glucoseon 11-16-2024 FINGERSTICK GLU 101 mg/dL Normal 74-[address] [facility] Comment on above: Result Comment: MABLE ELIZABETH OF PATIENT CARE PER NURSING PROTOCOL Performed By: #### L 501.080 ####[facility] [address] [place], [place], [id number] Brain/Head without Contrasto n 11-16-2024 Brain/Head without Contrast Normal [facility] CBC W/Diff, Automatedon 10-30 Absolute Lymph 1.22 X10 3/uL Normal 0.83-4.[address] [facility] Comment on above: Performed By: #### L 100.0100, L501.4020, L500.2500 ####[facility] [address] [place], [address] Absolute Neut 3.6 X10 3/uL Normal 2.0-7.[address] [facility] Comment on above: Performed By: #### L 100.0100, L501.4020, L500.2500 ####[facility] [address] [place], [address] Basophils/100 WBC (Bld) 0.2 % Normal 0-[address] [facility] Comment on above: Performed By: #### L 100.0100, L501.4020, L500.2500 ####[facility] [address] [place], [address] Eosinophils/100 WBC (Bld) 2.2 % Normal 0-[address] [facility] Comment on above: Performed By: #### L 100.0100, L501.4020, L500.2500 ####[facility] [address] [place], [address] Erythrocyte distribution width (RBC) [Ratio] 13.7 % Normal 11.6-14.[address] [facility] Comment on above: Performed By: #### L 100.0100, L501.4020, L500.2500 ####[facility] [address] [place], [address] Hematocrit (Bld) [Volume fraction] 31.2 % Low 37-[address] [facility] Comment on above: Performed By: #### L 100.0100, L501.4020, L500.2500 ####[facility] [address] [place], [address] Hemoglobin (Bld) [Mass/Vol] 9.6 g/dL Low 12.0-15.[address] [facility] Comment on above: Performed By: #### L 100.0100, L501.4020, L500.2500 ####[facility] [address] [place], [address] IG% 0.500 Normal 0.0-0.[address] [facility] Comment on above: Result Comment: IG% - Immature Granulocytes (promyelocytes, myelocytes andmetamyelocytes) > 1% indicates that a LEFT SHIFT is Present. Performed By: #### L 100.0100, L501.4020, L500.2500 ####[facility] [address] [place], [address] Lymphocytes/100 WBC (Bld) 22.3 % Normal 19-[address] [facility] Comment on above: Performed By: #### L 100.0100, L501.4020, L500.2500 ####[facility] [address] [place], [address] MCH (RBC) [Entitic mass] 30.0 pg Normal 27.0-32.[address] [facility] Comment on above: Performed By: #### L 100.0100, L501.4020, L500.2500 ####[facility] [address] [place], [address] MCHC (RBC) [Mass/Vol] 30.8 g/dL Low 32-36 [facility] Comment on above: Performed By: #### L 100.0100, L501.4020, L500.2500 ####[facility] [address] [place], [address] MCV (RBC) [Entitic vol] 97.5 fL Normal 81-[address] [facility] Comment on above: Performed By: #### L 100.0100, L501.4020, L500.2500 ####[facility] [address] [place], [address] Monocytes/100 WBC (Bld) 9.7 % Normal 0-[address] [facility] Comment on above: Performed By: #### L 100.0100, L501.4020, L500.2500 ####[facility] [address] [place], [address] Neutrophils/100 WBC (Bld) 65.1 % Normal 47-[address] [facility] Comment on above: Performed By: #### L 100.0100, L501.4020, L500.2500 ####[facility] [address] [place], [address] Nucleated RBC (Bld) [#/Vol] 0 10*3/uL Normal 0-[address] [facility] Comment on above: Performed By: #### L 100.0100, L501.4020, L500.2500 ####[facility] [address] [place], [address] Platelet mean volume (Bld) [Entitic vol] 9.9 fL Normal 6.2-12.[address] [facility] Comment on above: Performed By: #### L 100.0100, L501.4020, L500.2500 ####[facility] [address] [place], [address] Platelets (Bld) [#/Vol] 191 10*3/uL Normal 150-[address] [facility] Comment on above: Performed By: #### L 100.0100, L501.4020, L500.2500 ####[facility] [address] [place], [address] RBC (Bld) [#/Vol] 3.20 10*6/uL Low 4.2-5.4 [facility] Comment on above: Performed By: #### L 100.0100, L501.4020, L500.2500 ####[facility] [address] [place], [address] RDW SD 49.1 fl High 35.1-43.[address] [facility] Comment on above: Performed By: #### L 100.0100, L501.4020, L500.2500 ####[facility] [address] [place], [address] WBC (Bld) [#/Vol] 5.5 10*3/uL Normal 4.4-11.0 [facility] Comment on above: Performed By: #### L 100.0100, L501.4020, L500.2500 ####[facility] [address] [place], [address] CNPNon 11-16-2024 CNPN Telephone (CARD P) LYNETTE ANGULO ([id number]) 1940 F Date Time Provider Department 11/16/24 DOMENIC SERRANO During your visit today, we recorded the following information about you: Megan Mackey 11/16/2024 12:58 PM Signed High critical Potassium 6.2 Razia Christine APRN.MOIZ 11/16/2024 1:18 PM Signed phoned patient regarding elevated potassium level 6.2 advised her to go to her local ER for assessment and management of this value Patient expressed agreement and understanding. Razia Christine APRN.MOIZ Allergies As of Date: 11/16/2024 Noted Allergy Reaction DARVON (PROPOXYPHENE HCL) 02/21/2012 12 - Shortness of Breath 14 - Other: See Comments Comments: No strength, bad dreams IODINE 11/28/2014 10 - Anaphylaxis Comments: 12/24/23- pt. premedicated with 13 hrs, had CT scan with IV contrast. Patient denied any s/s of SOB, difficulty breathing, wheezing, itching or rash. LOTENSIN (BENAZEPRIL HCL) 02/21/2012 11 - Vomiting 14 - Other: See Comments Comments: Coughing RIVAROXABAN 03/29/2022 14 - Other: See Comments Comments: Developed pericardial effusion SHELLFISH 11/28/2014 10 - Anaphylaxis SHELLFISH CONTAINING PRODUCTS 01/27/2019 10 - Anaphylaxis 12 - Shortness of Breath SPIRONOLACTONE 02/21/2012 14 - Other: See Comments Comments: Weak, made calcium level high, heart rate 20BPM ADHESIVE 02/21/2012 2 - Rash CELECOXIB 05/18/2019 14 - Other: See Comments Comments: Due to kidneys DEMERAL (MEPERIDINE) 02/21/2012 11 - Vomiting HYDROCHLOROTHIAZIDE 08/23/2020 14 - Other: See Comments METFORMIN 08/23/2020 14 - Other: See Comments METOPROLOL 08/25/2020 12 - Shortness of Breath PENICILLINS 02/21/2012 4 - Hives SIMVASTATIN 08/23/2020 17 - Myalgia 14 - Other: See Comments SITAGLIPTIN 08/23/2020 14 - Other: See Comments Date Reviewed: 11/10/2024 Reviewed by: Domenic Serrano APRN.REFINERY PIPELINE OPERATOR - Fully Assessed Reason for Visit: Results [95] Cmt: High Critical Lab Prescriptions as of 11/16/2024 - amLODIPine (NORVASC) 10 mg tablet Take 1 tablet by mouth once daily. - carvedilol (COREG) 25 mg tablet Take 1 tablet by mouth two times a day with meals. - doxazosin (CARDURA) 4 mg tablet Take 1 tablet by mouth daily at bedtime. - olmesartan (BENICAR) 40 mg tablet Take 1 tablet by mouth once daily. - isosorbide mononitrate ER (IMDUR) 30 mg 24 hr tablet Take 1 tablet by mouth once daily. - atorvastatin (LIPITOR) 20 mg tablet Take 2 tablets by mouth once daily. - apixaban (ELIQUIS) 2.5 mg tab(s) Take 1 tablet by mouth two times a day. - clopidogrel (PLAVIX) 75 mg tablet Take 1 tablet by mouth once daily. Patient should start on May 15, 2024. - furosemide (LASIX) 20 mg tablet Take 0.5 tablets by mouth once daily. - glimepiride (AMARYL) 1 mg tablet Take 1 tablet by mouth daily with breakfast. - colchicine 0.6 mg tablet Take 1 tablet by mouth every other day. - finerenone (KERENDIA) 10 mg tablet q 24 HR. - omega 7-kgc-bni-fish oil 360 mg-108 mg- 180 mg-1,200 mg cap q 24 HR. - vibegron (GEMTESA) 75 mg tablet Take 1 tablet by mouth once daily. - Cranberry 500 mg cap Take 1 capsule by mouth once daily. - Ascorbic Acid 500 mg cpER Take by mouth once daily. - cinnamon bark (CINNAMON ORAL) Take by mouth. Take 2,00mg daily. - cholecalciferol (VITAMIN D3) 5,000 unit tab Take 5,000 Units by mouth once daily. - pantoprazole DR (PROTONIX) 40 mg tablet TAKE 1 TABLET BY MOUTH ONCE DAILY AT 6 AM - levothyroxine (SYNTHROID) 125 mcg tablet Take 125 mcg by mouth once daily. - latanoprost (XALATAN) 0.005 % ophthalmic solution Use 1 Drop in both eyes daily at bedtime. Meds Comments as of 02/05/2023: 02/05/23 The medications are managed by this patient by: PATIENT Chandni Matty [facility] Problem List As Of Date 11/16/2024 Noted Resolved Pericardial effusion [I31.39] 08/23/2020 09/01/2020 POLY (acute kidney injury) ([facility]) [N17.9] 08/24/2020 09/01/2020 Hyponatremia [E87.1] 08/24/2020 Paroxysmal atrial fibrillation (HCC) [I48.0] 08/24/2020 Acute liver disease [K76.9] 08/24/2020 09/01/2020 Type 2 diabetes mellitus with stage 4 chronic k*08/24/2020 SSS (sick sinus syndrome) (HCC) [I49.5] 08/24/2020 Typhoid fever [A01.00] 08/25/2020 Acute idiopathic pericarditis [I30.0] 09/05/2020 Chronic pericarditis [I31.9] 05/30/2022 Primary hypertension [I10] 05/30/2022 Obesity, Class II, BMI 35-39.9 [E66.812] 11/27/2022 Nonrheumatic aortic valve stenosis [I35.0] 01/29/2023 Stenosis of left renal artery (HCC) [I70.1] 01/29/2023 Heart failure, unspecified HF chronicity, unspe*01/29/2023 Stage 4 chronic kidney disease (HCC) [N18.4] 01/30/2023 Cardiac pacemaker [Z95.0] 09/15/2023 History of pericarditis [Z86.79] 09/15/2023 On apixaban therapy [Z79.01] 09/15/2023 Obesity, Class I, BMI 30-34.9 [E66.811] 12/24/2023 S/P TAVR (transcatheter aortic valve replacemen*02/09/20 (more content not included)... Normal [facility] MOIZN Telephone (CARD P) LYNETTE ANGULO ([id number]) 1940 F Date Time Provider Department 11/16/24 DOMENIC SERRANO During your visit today, we recorded the following information about you: Domenic Serrano APRN.CNP 11/16/2024 10:02 AM Signed Called patient and notified K 5.5 on recent BMP. She will go to lab today or tomorrow and repeat. Order placed. Domenic Serrano APRN.CNP Allergies As of Date: 11/16/2024 Noted Allergy Reaction DARVON (PROPOXYPHENE HCL) 02/21/2012 12 - Shortness of Breath 14 - Other: See Comments Comments: No strength, bad dreams IODINE 11/28/2014 10 - Anaphylaxis Comments: 12/24/23- pt. premedicated with 13 hrs, had CT scan with IV contrast. Patient denied any s/s of SOB, difficulty breathing, wheezing, itching or rash. LOTENSIN (BENAZEPRIL HCL) 02/21/2012 11 - Vomiting 14 - Other: See Comments Comments: Coughing RIVAROXABAN 03/29/2022 14 - Other: See Comments Comments: Developed pericardial effusion SHELLFISH 11/28/2014 10 - Anaphylaxis SHELLFISH CONTAINING PRODUCTS 01/27/2019 10 - Anaphylaxis 12 - Shortness of Breath SPIRONOLACTONE 02/21/2012 14 - Other: See Comments Comments: Weak, made calcium level high, heart rate 20BPM ADHESIVE 02/21/2012 2 - Rash CELECOXIB 05/18/2019 14 - Other: See Comments Comments: Due to kidneys DEMERAL (MEPERIDINE) 02/21/2012 11 - Vomiting HYDROCHLOROTHIAZIDE 08/23/2020 14 - Other: See Comments METFORMIN 08/23/2020 14 - Other: See Comments METOPROLOL 08/25/2020 12 - Shortness of Breath PENICILLINS 02/21/2012 4 - Hives SIMVASTATIN 08/23/2020 17 - Myalgia 14 - Other: See Comments SITAGLIPTIN 08/23/2020 14 - Other: See Comments Date Reviewed: 11/10/2024 Reviewed by: Domenic Serrano APRN.REFINERY PIPELINE OPERATOR - Fully Assessed Reason for Visit: Results [95] Cmt: potassium Primary Visit Diagnosis:Serum potassium elevated [E87.5] Order(s):BASIC METABOLIC PANEL [SQBMP] Order #: [id number] FUTURE Prescriptions as of 11/16/2024 - amLODIPine (NORVASC) 10 mg tablet Take 1 tablet by mouth once daily. - carvedilol (COREG) 25 mg tablet Take 1 tablet by mouth two times a day with meals. - doxazosin (CARDURA) 4 mg tablet Take 1 tablet by mouth daily at bedtime. - olmesartan (BENICAR) 40 mg tablet Take 1 tablet by mouth once daily. - isosorbide mononitrate ER (IMDUR) 30 mg 24 hr tablet Take 1 tablet by mouth once daily. - atorvastatin (LIPITOR) 20 mg tablet Take 2 tablets by mouth once daily. - apixaban (ELIQUIS) 2.5 mg tab(s) Take 1 tablet by mouth two times a day. - clopidogrel (PLAVIX) 75 mg tablet Take 1 tablet by mouth once daily. Patient should start on May 15, 2024. - furosemide (LASIX) 20 mg tablet Take 0.5 tablets by mouth once daily. - glimepiride (AMARYL) 1 mg tablet Take 1 tablet by mouth daily with breakfast. - colchicine 0.6 mg tablet Take 1 tablet by mouth every other day. - finerenone (KERENDIA) 10 mg tablet q 24 HR. - omega 9-sou-eqq-fish oil 360 mg-108 mg- 180 mg-1,200 mg cap q 24 HR. - vibegron (GEMTESA) 75 mg tablet Take 1 tablet by mouth once daily. - Cranberry 500 mg cap Take 1 capsule by mouth once daily. - Ascorbic Acid 500 mg cpER Take by mouth once daily. - cinnamon bark (CINNAMON ORAL) Take by mouth. Take 2,00mg daily. - cholecalciferol (VITAMIN D3) 5,000 unit tab Take 5,000 Units by mouth once daily. - pantoprazole DR (PROTONIX) 40 mg tablet TAKE 1 TABLET BY MOUTH ONCE DAILY AT 6 AM - levothyroxine (SYNTHROID) 125 mcg tablet Take 125 mcg by mouth once daily. - latanoprost (XALATAN) 0.005 % ophthalmic solution Use 1 Drop in both eyes daily at bedtime. Meds Comments as of 02/05/2023: 02/05/23 The medications are managed by this patient by: PATIENT Chandni Starr [facility] Problem List As Of Date 11/16/2024 Noted Resolved Pericardial effusion [I31.39] 08/23/2020 09/01/2020 POLY (acute kidney injury) (HCC) [N17.9] 08/24/2020 09/01/2020 Hyponatremia [E87.1] 08/24/2020 Paroxysmal atrial fibrillation (HCC) [I48.0] 08/24/2020 Acute liver disease [K76.9] 08/24/2020 09/01/2020 Type 2 diabetes mellitus with stage 4 chronic k*08/24/2020 SSS (sick sinus syndrome) (HCC) [I49.5] 08/24/2020 Typhoid fever [A01.00] 08/25/2020 Acute idiopathic pericarditis [I30.0] 09/05/2020 Chronic pericarditis [I31.9] 05/30/2022 Primary hypertension [I10] 05/30/2022 Obesity, Class II, BMI 35-39.9 [E66.812] 11/27/2022 Nonrheumatic aortic valve stenosis [I35.0] 01/29/2023 Stenosis of left renal artery (HCC) [I70.1] 01/29/2023 Heart failure, unspecified HF chronicity, unspe*01/29/2023 Stage 4 chronic kidney disease (HCC) [N18.4] 01/30/2023 Cardiac pacemaker [Z95.0] 09/15/2023 History of pericarditis [Z86.79] 09/15/2023 On apixaban therapy [Z79.01] 09/15/2023 Obesity, Class I, BMI 30-34.9 [E66.811] 12/24/2023 S/P TAVR (transcatheter aortic valve replacemen*02/09/2024 Mixed hyperlipidem (more content not included)... Normal [facility] Emergency Department Summary on 11-16-2024 Emergency Department Summary Normal [facility] Ferritinon 11-16-2024 Ferritin [Mass/Vol] 14 ng/mL Normal [facility] Comment on above: Order Comment: Comme nts: add to ED labs if able. Performed By: #### L 503.0105, L503.6030, L503.6550, L506.0250, L500.2500 ####[facility] [address] [place], [place], [phone] Ferritin measurementOrdered By: Beckie Moeller on 11-16-2024 Ferritin [Mass/Vol] 14 ng/mL [facility] Ferritin measurement 14 ng/mL [facility] Folates, (Folic Acid)on 10-30 FOLATES 7.00 ng/mL Normal 3.1-55.[address] [facility] Comment on above: Order Comment: Comme nts: add to ED labs if able.add to ED labs if able. Performed By: #### L 503.0105, L503.6030, L503.6550, L506.0250, L500.2500 ####[facility] [address] [place], [place], [id number] Folic acid measurementOrdere d By: Beckie Moeller on 11-16-2024 Folate 7.00 ng/mL 3.1-55.[address] [facility] Folic acid measurement 7.00 ng/mL 3.1-55.4 [facility] H AND P Exam - Hospitaliston 11-16-2024 H&P Exam - Hospitalist Normal [facility] Iron (Unsp spec) [Mass/Mass] Ordered By: Beckie Sunni on 11-16-2024 Iron [Mass/Vol] 53 ug/dL 50-[address] [facility] Iron measurement (mass/mass) 53 ug/dL 50-[address] [facility] Iron measurement (mass/mass) Ordered By: Beckie Sunni on 11-16-2024 Iron (Unsp spec) [Mass/Mass] 53 ug/dL 50-[address] [facility] Iron saturation [Mass fracti on]Ordered By: Beckie Moeller on 11-16-2024 Iron Saturation 12.2 % Low 15.0-55.[address] [facility] Serum or plasma iron saturation measurement (mass fraction) 12.2 % Low 15.0-55.[address] [facility] Iron+Iron Binding Capacityon 11-16-2024 Iron [Mass/Vol] 53 ug/dL Normal 50-[address] [facility] Comment on above: Order Comment: Comme nts: add to ED labs if able.add to ED labs if able. Performed By: #### L 503.0105, L503.6030, L503.6550, L506.0250, L500.2500 ####[facility] [address] [facility] [address] IRON SATURATION 12.2 Low 15.0-55.[address] [facility] Comment on above: Order Comment: Comme nts: add to ED labs if able.add to ED labs if able. Performed By: #### L 503.0105, L503.6030, L503.6550, L506.0250, L500.2500 ####[facility] [address] [place], [address] TIBC 434 ug/dL Normal 250-[address] [facility] Comment on above: Order Comment: Comme nts: add to ED labs if able.add to ED labs if able. Performed By: #### L 503.0105, L503.6030, L503.6550, L506.0250, L500.2500 ####[facility] [address] [place], [address] L501.4020on 11-16-2024 TROPONIN-I HS 13 pg/mL Normal 3.0-54.[address] [facility] Comment on above: Order Comment: 'TROP ' Serial specimen #1, #2 or #3: 1 Result Comment: Eduarda dudley Note: New Test Units and Gender Specific Reference Ranges. For more information see Policy Stat Procedure [place] High Sensitivity Troponin (TNIH) and attachments. Performed By: #### L 100.0100, L501.4020, L500.2500 ####[facility] [address] [place], [address] Magnesiumon 11-16-2024 Magnesium [Mass/Vol] 2.4 mg/dL Normal 1.6-2.6 [facility] Comment on above: Order Comment: Comme nts: May add to ED labsComments: may add to ED labs Performed By: #### L 501.2300, L501.5200 ####[facility] [address] [place], [address] Magnesium measurementOrdered By: Beckie Moeller on 11-16-2024 Magnesium [Mass/Vol] 2.4 mg/dL 1.6-2.6 [facility] Magnesium measurement 2.4 mg/dL 1.6-2.6 [facility] Phosphoruson 11-16-2024 Phosphate [Mass/Vol] 3.7 mg/dL Normal 2.5-4.9 [facility] Comment on above: Order Comment: Comme nts: May add to ED labsComments: may add to ED labs Performed By: #### L 501.2300, L501.5200 ####[facility] [address] [place], [address] Phosphorus measurementOrdere d By: Beckie Moeller on 11-16-2024 Phosphorus Level 3.7 mg/dL 2.5-4.[address] [facility] Phosphorus measurement 3.7 mg/dL 2.5-4.9 [facility] Serum or plasma iron saturat ion measurement (mass fraction)Ordered By: Beckie Moeller on 11-16-2024 Iron saturation [Mass fraction] 12.2 % Low 15.0-55.[address] [facility] TIBCOrdered By: Beckie Sunni on 11-16-2024 Total Iron Binding Capacity 434 ug/dL 250-[address] [facility] TIBC 434 ug/dL 250-[address] [facility] Troponin IOrdered By: Ruben lemons on 11-16-2024 Troponin I 13 pg/mL 3.0-54.[address] [facility] Troponin I High Sensitivity 13 pg/mL 3.0-54.[address] [facility] Comment on above: Please Note: New Jose t Units and Gender Specific Reference Ranges. For more information see Policy Stat Procedure [place] High Sensitivity Troponin (TNIH) and attachments. Troponin I 13 pg/mL 3.0-54.[address] [facility] Vitamin B12on 11-16-2024 Cobalamin (Vitamin B12) [Mass/Vol] 258 pg/mL Normal 211-[address] [facility] Comment on above: Order Comment: Comme nts: add to ED labs Performed By: #### L 503.0105, L503.6030, L503.6550, L506.0250, L500.2500 ####[facility] [address] [place], [place], [address] Vitamin B12 measurementOrder ed By: Beckie Moeller on 11-16-2024 Cobalamin (Vitamin B12) [Mass/Vol] 258 pg/mL 211-[address] [facility] Vitamin B12 measurement 258 pg/mL 211-[address] [facility] CNPNon 11-12-2024 ROLANDO Telephone (BETHANIE) LYNETTE ANGULO ([id number]) 1940 F Date Time Provider Department 11/12/24 RAZIA CLEMENTS During your visit today, we recorded the following information about you: Razia Clements MD 11/12/2024 10:17 AM Signed I spoke to Lynette and and reviewed her lipids and LFTs 11/11/24 results with her: LDL 80, direct bilirubin 0.3 (<0.3 normal). She is currently still taking 20 mg atorvastatin once daily. She will increase atorvastatin to 40 mg once daily from today and she was advised to proceed to the lab 4 to 6 weeks after atorvastatin dose increment to 40 mg once daily is made. Allergies As of Date: 11/12/2024 Noted Allergy Reaction DARVON (PROPOXYPHENE HCL) 02/21/2012 12 - Shortness of Breath 14 - Other: See Comments Comments: No strength, bad dreams IODINE 11/28/2014 10 - Anaphylaxis Comments: 12/24/23- pt. premedicated with 13 hrs, had CT scan with IV contrast. Patient denied any s/s of SOB, difficulty breathing, wheezing, itching or rash. LOTENSIN (BENAZEPRIL HCL) 02/21/2012 11 - Vomiting 14 - Other: See Comments Comments: Coughing RIVAROXABAN 03/29/2022 14 - Other: See Comments Comments: Developed pericardial effusion SHELLFISH 11/28/2014 10 - Anaphylaxis SHELLFISH CONTAINING PRODUCTS 01/27/2019 10 - Anaphylaxis 12 - Shortness of Breath SPIRONOLACTONE 02/21/2012 14 - Other: See Comments Comments: Weak, made calcium level high, heart rate 20BPM ADHESIVE 02/21/2012 2 - Rash CELECOXIB 05/18/2019 14 - Other: See Comments Comments: Due to kidneys DEMERAL (MEPERIDINE) 02/21/2012 11 - Vomiting HYDROCHLOROTHIAZIDE 08/23/2020 14 - Other: See Comments METFORMIN 08/23/2020 14 - Other: See Comments METOPROLOL 08/25/2020 12 - Shortness of Breath PENICILLINS 02/21/2012 4 - Hives SIMVASTATIN 08/23/2020 17 - Myalgia 14 - Other: See Comments SITAGLIPTIN 08/23/2020 14 - Other: See Comments Date Reviewed: 11/10/2024 Reviewed by: Domenic Serrano APRN.REFINERY PIPELINE OPERATOR - Fully Assessed Primary Visit Diagnosis:Coronary artery disease due to lipid rich plaque [I25.10, I25.83] Order(s):LIPID PANEL, NONFASTING [SQLIPNF] Order #: [id number] FUTURE HEPATIC FUNCTION PNL [SQHFP] Order #: [id number] FUTURE Prescriptions as of 11/12/2024 - amLODIPine (NORVASC) 10 mg tablet Take 1 tablet by mouth once daily. - carvedilol (COREG) 25 mg tablet Take 1 tablet by mouth two times a day with meals. - doxazosin (CARDURA) 4 mg tablet Take 1 tablet by mouth daily at bedtime. - olmesartan (BENICAR) 40 mg tablet Take 1 tablet by mouth once daily. - isosorbide mononitrate ER (IMDUR) 30 mg 24 hr tablet Take 1 tablet by mouth once daily. - atorvastatin (LIPITOR) 20 mg tablet Take 2 tablets by mouth once daily. - apixaban (ELIQUIS) 2.5 mg tab(s) Take 1 tablet by mouth two times a day. - clopidogrel (PLAVIX) 75 mg tablet Take 1 tablet by mouth once daily. Patient should start on May 15, 2024. - furosemide (LASIX) 20 mg tablet Take 0.5 tablets by mouth once daily. - glimepiride (AMARYL) 1 mg tablet Take 1 tablet by mouth daily with breakfast. - colchicine 0.6 mg tablet Take 1 tablet by mouth every other day. - finerenone (KERENDIA) 10 mg tablet q 24 HR. - omega 9-zjt-gkw-fish oil 360 mg-108 mg- 180 mg-1,200 mg cap q 24 HR. - vibegron (GEMTESA) 75 mg tablet Take 1 tablet by mouth once daily. - Cranberry 500 mg cap Take 1 capsule by mouth once daily. - Ascorbic Acid 500 mg cpER Take by mouth once daily. - cinnamon bark (CINNAMON ORAL) Take by mouth. Take 2,00mg daily. - cholecalciferol (VITAMIN D3) 5,000 unit tab Take 5,000 Units by mouth once daily. - pantoprazole DR (PROTONIX) 40 mg tablet TAKE 1 TABLET BY MOUTH ONCE DAILY AT 6 AM - levothyroxine (SYNTHROID) 125 mcg tablet Take 125 mcg by mouth once daily. - latanoprost (XALATAN) 0.005 % ophthalmic solution Use 1 Drop in both eyes daily at bedtime. Meds Comments as of 02/05/2023: 02/05/23 The medications are managed by this patient by: PATIENT Chandni Starr [facility] Problem List As Of Date 11/12/2024 Noted Resolved Pericardial effusion [I31.39] 08/23/2020 09/01/2020 POLY (acute kidney injury) (HCC) [N17.9] 08/24/2020 09/01/2020 Hyponatremia [E87.1] 08/24/2020 Paroxysmal atrial fibrillation (HCC) [I48.0] 08/24/2020 Acute liver disease [K76.9] 08/24/2020 09/01/2020 Type 2 diabetes mellitus with stage 4 chronic k*08/24/2020 SSS (sick sinus syndrome) (HCC) [I49.5] 08/24/2020 Typhoid fever [A01.00] 08/25/2020 Acute idiopathic pericarditis [I30.0] 09/05/2020 Chronic pericarditis [I31.9] 05/30/2022 Primary hypertension [I10] 05/30/2022 Obesity, Class II, BMI 35-39.9 [E66.812] 11/27/2022 Nonrheumatic aortic valve stenosis [I35.0] 01/29/2023 Stenosis of left renal artery (HCC) [I70.1] 01/29/2023 Heart failure, unspecified HF chronicity, unspe*01/29/2023 Stage 4 chronic kidney disease (HCC) [N18.4] more content not included)... Normal [facility] Basic metabolic 2000 panelon 11-11-2024 Anion gap [Moles/Vol] 8 mmol/L Normal 8-15 [facility] Comment on above: Order Comment: Nikolai de luna Type: BLOOD SPECIMENOrdering Facility: [facility] Address: [address] [place] [address] Performed By: #### 2 4325-3, 98050-5 ####[facility] [id number] [place] [address] [place] Calcium [Mass/Vol] 10.6 mg/dL High 8.5-10.2 [facility] Comment on above: Order Comment: Nikolai de luna Type: BLOOD SPECIMENOrdering Facility: [facility] Address: [address] [place] [address] Performed By: #### 2 4325-3, 71206-1 ####[facility] MILLWNCLIA [id number] [place] [address] [place] Chloride [Moles/Vol] 102 mmol/L Normal 98-107 [facility] Comment on above: Order Comment: Speci men Type: BLOOD SPECIMENOrdering Facility: [facility] Address: [address] [place] [address] Performed By: #### 2 4325-3, 86780-0 ####[facility]ITAL[facility]CL[facility] [id number] [place] [address] [place] CO2 [Moles/Vol] 23 mmol/L Normal 22-30 [facility] Comment on above: Order Comment: Speci men Type: BLOOD SPECIMENOrdering Facility: [facility] Address: [address] [place] [address] Performed By: #### 2 4325-3, 47675-5 ####[facility]CL[facility] [id number] [place] [address] [place] Creatinine [Mass/Vol] 1.52 mg/dL High 0.58-0.96 [facility] Comment on above: Order Comment: Speci men Type: BLOOD SPECIMENOrdering Facility: [facility] Address: [address] [place] [address] Performed By: #### 2 4325-3, 60903-5 ####[facility]ITALNCLIA [id number] [place] [address] [place] Creatinine and Glomerular filtration rate.predicted panel (S/P/Bld) 34 mL/min/1.73m??? Low >=60 [facility] Comment on above: Order Comment: Speci men Type: BLOOD SPECIMENOrdering Facility: [facility] Address: [address] [place] [address] Result Comment: Raina mated Glomerular Filtration Rate (eGFR) is calculated using the 2020 CKD-EPI creatinine equation. This equation utilizes serum creatinine, sex, and age as parameters. The creatinine assay has traceable calibration to isotope dilution-mass spectrometry. Refer to KDIGO guidelines for clinical interpretation. In patients with unstable renal function, e.g. those with acute kidney injury, the eGFR may not accurately reflect actual GFR. Performed By: #### 2 4325-3, 12235-4 ####[facility]ITALNIKOLELIA [id number] [place] [id number] [place] Glucose [Mass/Vol] 99 mg/dL Normal 74-99 [facility] Comment on above: Order Comment: Nikolai de luna Type: BLOOD SPECIMENOrdering Facility: [facility] Address: [address] [place] [address] Result Comment: The [place] [employer] (ADA) provides guidance for cutoff values for fasting glucose and random glucose. The ADA defines fasting as no caloric intake for at least 8 hours. Fasting plasma glucose results between 100 to 125 mg/dL indicate increased risk for diabetes (prediabetes). Fasting plasma glucose results greater than or equal to 126 mg/dL meet the criteria for diagnosis of diabetes. In the absence of unequivocal hyperglycemia, results should be confirmed by repeat testing. In a patient with classic symptoms of hyperglycemia or hyperglycemic crisis, random plasma glucose results greater than or equal to 200 mg/dL meet the criteria for diagnosis of diabetes. Reference: Standards of Medical Care in Diabetes 2016, [place] [employer]. Diabetes Care. 2016.39(Suppl 1). Performed By: #### 2 4325-3, 25066-8 ####[facility] HOSPITALA [id number] [place] [address] [place] Potassium [Moles/Vol] 5.5 mmol/L High 3.7-5.1 [facility] Comment on above: Order Comment: Nikolai de luna Type: BLOOD SPECIMENOrdering Facility: [facility] Address: [address] [place] [address] Performed By: #### 2 4325-3, 26372-4 ####[facility] [id number] [place] [address] [place] Sodium [Moles/Vol] 133 mmol/L Low 136-144 [facility] Comment on above: Order Comment: Speci men Type: BLOOD SPECIMENOrdering Facility: [facility] Address: [address] [place] [address] Performed By: #### 2 4325-3, 79774-2 ####[facility] CASEBENWKEA [id number] [place] [address] [place] Urea nitrogen [Mass/Vol] 41 mg/dL High 7-21 [facility] Comment on above: Order Comment: Speci men Type: BLOOD SPECIMENOrdering Facility: [facility] Address: [address] [place] [address] Performed By: #### 2 4325-3, 90219-1 ####[facility]ITALFELICITY [id number] [place] [address] [place] Hepatic function 2000 panelo n 11-11-2024 Albumin [Mass/Vol] 4.4 g/dL Normal 3.9-4.9 [facility] Comment on above: Order Comment: Speci men Type: BLOOD SPECIMENOrdering Facility: [facility] Address: [address] [place] [address] Performed By: #### 2 4325-3, 88707-9 ####[facility]ITALFELICITY [id number] [place] [address] [place] ALP [Catalytic activity/Vol] 96 U/L Normal 34-123 [facility] Comment on above: Order Comment: Speci men Type: BLOOD SPECIMENOrdering Facility: [facility] Address: [address] [place] [address] Performed By: #### 2 4325-3, 62388-4 ####[facility]ITALNCLIA [id number] [place] [address] [place] ALT [Catalytic activity/Vol] 15 U/L Normal 7-38 [facility] Comment on above: Order Comment: Speci men Type: BLOOD SPECIMENOrdering Facility: [facility] Address: [address] [place] [address] Performed By: #### 2 4325-3, 96636-6 ####[facility]ITALNCGUNN[facility] [id number] [place] [address] [place] AST [Catalytic activity/Vol] 18 U/L Normal 13-35 [facility] Comment on above: Order Comment: Speci men Type: BLOOD SPECIMENOrdering Facility: [facility] Address: [address] [place] [address] Performed By: #### 2 4325-3, 13569-6 ####[facility] [id number] [place] [address] [place] Bilirubin [Mass/Vol] 0.7 mg/dL Normal 0.2-1.3 [facility] Comment on above: Order Comment: Speci men Type: BLOOD SPECIMENOrdering Facility: [facility] Address: [address] [place] [address] Performed By: #### 2 4325-3, 56981-8 ####[facility] [id number] [place] [address] [place] Bilirubin.conjugated [Mass/Vol] 0.3 mg/dL High <0.3 [facility] Comment on above: Order Comment: Speci men Type: BLOOD SPECIMENOrdering Facility: [facility] Address: [address] [place], [place] [address] Performed By: #### 2 4325-3, 84556-0 ####[facility] [id number] [place] [address] [place] Protein [Mass/Vol] 7.4 g/dL Normal 6.3-8.0 [facility] Comment on above: Order Comment: Speci men Type: BLOOD SPECIMENOrdering Facility: [facility] Address: [address] [place] [address] Performed By: #### 2 4325-3, 05028-1 ####[facility] [id number] [address] OF [facility] Lipid 1996 panelon 5 Cholesterol [Mass/Vol] 159 mg/dL Normal <200 [facility] Comment on above: Order Comment: Speci men Type: BLOOD SPECIMENOrdering Facility: [facility] Address: [address] [place] [address] Result Comment: <200 mg/dL, Desirable 200-239 mg/dL, Borderline high >239 mg/dL, High Performed By: #### 2 4331-1 ####[facility]ATORYCLIA [id number] [address] [id number] [address] STATES [facility] Cholesterol in HDL [Mass/Vol] 68 mg/dL Normal >39 [facility] Comment on above: Order Comment: Speci men Type: BLOOD SPECIMENOrdering Facility: [facility] Address: [address] [place] [address] Result Comment: 40-5 9 mg/dL, Acceptable >59 mg/dL, High: Negative risk factor for coronary heart disease <40 mg/dL, Low: Positive risk factor for coronary heart disease Performed By: #### 2 4331-1 ####[facility]ATORYCLIA [id number] [address] [id number] [address] Cholesterol in LDL [Mass/Vol] 80 mg/dL Normal <100 [facility] Comment on above: Order Comment: Speci men Type: BLOOD SPECIMENOrdering Facility: [facility] Address: [address], [place] [address] Result Comment: <100 mg/dL, Optimal 100-129 mg/dL, Near optimal/above optimal 130-159 mg/dL, Borderline high 160-189 mg/dL, High >189 mg/dL, Very high Secondary prevention optimal LDL Cholesterol levels are recommended to be < 70 mg/dL Performed By: #### 2 4331-1 ####[facility] LABORATORYCLIA [id number] [address] [id number] [place] [address] [place] [facility] Cholesterol in LDL/Cholesterol in HDL [Mass ratio] 1.18 {ratio} Normal <2.54 [facility] Comment on above: Order Comment: Speci men Type: BLOOD SPECIMENOrdering Facility: [facility] Address: [address] [place] [address] Result Comment: Refe rence: 1. National Cholesterol Education Program ATP III Guideline At-A-Glance Quick Desk Reference: National Heart, Lung, and Blood [place]. National Institutes of Health. 2001: NIH Publication No. 01-3305. 2. An International Atherosclerosis Society position paper: global recommendations for the management of dyslipidemia: executive summary, Atherosclerosis. 2014: 232(2):410-413. Performed By: #### 2 4331-1 ####[facility] LABORATORYCLIA [id number] [address] [id number] [address] [place] Cholesterol in VLDL [Mass/Vol] 11 mg/dL Normal <30 [facility] Comment on above: Order Comment: Speci men Type: BLOOD SPECIMENOrdering Facility: [facility] Address: [address] [place] [address] Performed By: #### 2 4331-1 ####[facility]ATORYCLIA [id number] [address] [id number] [place] [address] [place] Cholesterol non HDL [Mass/Vol] 91 mg/dL Normal <130 [facility] Comment on above: Order Comment: Speci men Type: BLOOD SPECIMENOrdering Facility: [facility] Address: [address] [place] [address] Result Comment: <130 mg/dL, Optimal 130-159 mg/dL, Near optimal/above optimal 160-189 mg/dL, Borderline high 190-219 mg/dL, High >219 mg/dL, Very high Secondary prevention optimal non HDL Cholesterol levels are recommended to be <100 mg/dL Performed By: #### 2 4331-1 ####[facility]ORATORYCLIA [id number] [place] [id number] [place] [address] [place] Cholesterol.total/Chol esterol in HDL [Mass ratio] 2.34 {ratio} Normal <5.10 [facility] Comment on above: Order Comment: Speci men Type: BLOOD SPECIMENOrdering Facility: [facility] Address: [address] [place] [address] Performed By: #### 2 4331-1 ####[facility]ORATORYCLIA [id number] [place] [id number] [place] [address] [place] [facility] FASTING TIME 15 hrs Normal [facility] Comment on above: Order Comment: Speci men Type: BLOOD SPECIMENOrdering Facility: [facility] Address: [address] [place] [address] Performed By: #### 2 4331-1 ####[facility] LABORATORYCLIA [id number] [address] [id number] [place] [address] [place] Triglyceride [Mass/Vol] 55 mg/dL Normal <150 [facility] Comment on above: Order Comment: Speci men Type: BLOOD SPECIMENOrdering Facility: [facility] Address: [address] [place] [id number] Result Comment: <150 mg/dL, Normal 150-199 mg/dL, Borderline high 200-499 mg/dL, High >499 mg/dL, Very high Performed By: #### 2 4331-1 ####[facility] LABORATORYCLIA [id number] [place] [address] [facility] [id number] [place] [id number] [place] [address] CNOVon 11-10-2024 CNOV Office Visit (BLADIMIR P ) LYNETTE ANGULO ([id number]) 1940 F Date Time Provider Department 11/10/24 10:30 AM DOMENIC SERRANO During your visit today, we recorded the following information about you: Pulse Blood pressure Weight Height 74/minute 124/46 86.5 kg 1.524 m Domenic Serrano APRN.CNP 11/10/2024 1:42 PM [facility] [place] Fercho Reina Department of Cardiovascular Medicine SECTION OF PREVENTIVE CARDIOLOGY 11/10/2024 Lynette Angulo CURRENT MEDS: Current Outpatient Medications Medication Sig isosorbide mononitrate ER (IMDUR) 30 mg 24 hr tablet Take 1 tablet by mouth once daily. atorvastatin (LIPITOR) 20 mg tablet Take 2 tablets by mouth once daily. amLODIPine (NORVASC) 10 mg tablet Take 1 tablet by mouth once daily. apixaban (ELIQUIS) 2.5 mg tab(s) Take 1 tablet by mouth two times a day. clopidogrel (PLAVIX) 75 mg tablet Take 1 tablet by mouth once daily. Patient should start on May 15, 2024. furosemide (LASIX) 20 mg tablet Take 0.5 tablets by mouth once daily. glimepiride (AMARYL) 1 mg tablet Take 1 tablet by mouth daily with breakfast. colchicine 0.6 mg tablet Take 1 tablet by mouth every other day. olmesartan (BENICAR) 40 mg tablet Take 1 tablet by mouth once daily. finerenone (KERENDIA) 10 mg tablet q 24 HR. omega 6-ban-xxv-fish oil 360 mg-108 mg- 180 mg-1,200 mg cap q 24 HR. vibegron (GEMTESA) 75 mg tablet Take 1 tablet by mouth once daily. Cranberry 500 mg cap Take 1 capsule by mouth once daily. Ascorbic Acid 500 mg cpER Take by mouth once daily. cinnamon bark (CINNAMON ORAL) Take by mouth. Take 2,00mg daily. cholecalciferol (VITAMIN D3) 5,000 unit tab Take 5,000 Units by mouth once daily. pantoprazole DR (PROTONIX) 40 mg tablet TAKE 1 TABLET BY MOUTH ONCE DAILY AT 6 AM levothyroxine (SYNTHROID) 125 mcg tablet Take 125 mcg by mouth once daily. latanoprost (XALATAN) 0.005 % ophthalmic solution Use 1 Drop in both eyes daily at bedtime. doxazosin (CARDURA) 4 mg tablet Take 1 tablet by mouth daily at bedtime. carvedilol (COREG) 25 mg tablet Take 1 tablet by mouth twice daily with meals. No current facility-administered medications for this visit. ALLERGIES: ALLERGIES Allergen Reactions Darvon [Propoxyphen* Shortness of Breath, Other: See Comments No strength, bad dreams Iodine Anaphylaxis 12/24/23- pt. premedicated with 13 hrs, had CT scan with IV contrast. Patient denied any s/s of SOB, difficulty breathing, wheezing, itching or rash. Lotensin [Benazepri* Vomiting, Other: See Comments Coughing Rivaroxaban Other: See Comments Developed pericardial effusion Shellfish Anaphylaxis Shellfish Containin* Anaphylaxis, Shortness of Breath Spironolactone Other: See Comments Weak, made calcium level high, heart rate 20BPM Adhesive Rash Celecoxib Other: See Comments Due to kidneys Demeral [Meperidine] Vomiting Hydrochlorothiazide Other: See Comments Metformin Other: See Comments Metoprolol Shortness of Breath Penicillins Hives Simvastatin Myalgia, Other: See Comments Sitagliptin Other: See Comments CHIEF COMPLAINT: Lynette Angulo is a 84 year old White female seen today. Patient presents with: Follow Up HISTORY OF PRESENT CARDIOVASCULAR ILLNESS: Patient presents for ongoing management of cardiovascular risk factors--specifically blood pressure,stage 4 CKD, proteinuria. Dr Cifuentes patient. 84 year old female with a PMH significant for pericarditis, type 2 diabetes mellitus, SSS (status post PPM), aortic stenosis, 02/09/24 TAVR, hx of atrial fibrillation/flutter,CAD with cath 05/14/24 which showed 60 to 70% ostial RCA s/p drug coated Paclitaxel balloon, cutting balloon as well as IVL with shock wave therapy and 60% ostial D2 with moderate disease in mid LAD and OM1, diastolic HF. Previously seen by Dr. Suazo 06/24/[address] Shetty 05/11/2024. Yesterday 11/09/[address] Clements (now following with instead of Diogenes) for cardiology follow up. TTE 04/16/24: EF 59%, 1.2/0.9, mod dil LA, 1+ MR, 2+ TR, Balderas S3 Ultra prosthetic valve size #23, pk/mean AV grad 24/15, peak AV abdullahi 245 cm/s, trace-1+KY, asc Ao 3.3 cm, RVSP 40 mmHg Chest pain: No Claudication: No SOB: yes with exertion, Dr Clements started isosorbide mononitrate to help assess whether angina equivalent, possible nuclear stress testing if unclear Orthopnea: No PND: No LE: chronic, typical today Lightheadedness/dizziness: some dizziness --positional Palpitations:No Bleeding/bruising: bruises easier --on apixaban, clopidogrel CARDIAC RISK FACTORS: Diabetes : Hypertension : Exercise: Does not exercise Limited by knee pain Avg. Sleep Hours Per Night?: 5.5 STATIN INTOLERANCE: Adverse Effect History of Statin Intolerance:: No Current Statin Freq: Every Day USE OF PCSK9 INHIBITORS: CARDIOVASCULAR DISEASE HISTO (more content not included)... Normal [facility] CNOVon 11-09-2024 CNOV Office Visit (CARDMM ) LYNETTE ANGULO ([id number]) 1940 F Date Time Provider Department 11/09/24 11:00 AM RAZIA CLEMENTS During your visit today, we recorded the following information about you: Pulse Blood pressure Weight Height 60/minute 130/68 87.2 kg 1.524 m Razia Clements MD 11/09/2024 12:27 PM Signed [facility] [place] SECTION OF REGIONAL CARDIOLOGY OUTPATIENT VISIT DATE 11/09/2024 OUTPATIENT VISIT TYPE ESTABLISHED PRIMARY CARE PHYSICIAN: Jorge Benavides [facility] [place] [address] Patient is being seen at the request of Self for follow up HISTORY OF PRESENT ILLNESS: Ms. Angulo is a 84 year old female, hx of atrial fibrillation/flutter, aortic stenosis s/p TAVR, CAD with cath 05/14/24 which showed 60 to 70% ostial RCA s/p drug coated Paclitaxel balloon, cutting balloon as well as IVL with shock wave therapy and 60% ostial D2 with moderate disease in mid LAD and OM1, CKD, diabetes mellitus, diastolic HF, gout, pericardial effusion, SSS s/p PPM, CLIFFORD, thyroid disease, presents for f/u. Previously seen by Dr. Suazo 06/24/[address] Shetty 05/11/2024. She denies chest pain, palpitations, orthopnea, PND, leg swelling, lightheadedness, syncope. She reports SOB with daily activities stable from prior to her cath and TAVR last year. She reports significant L knee pain which is limiting her ability to exercise. She is working closely with chiropractor. TTE 04/16/24: EF 59%, 1.2/0.9, mod dil LA, 1+ MR, 2+ TR, Balderas S3 Ultra prosthetic valve size #23, pk/mean AV grad 24/15, peak AV abdullahi 245 cm/s, trace-1+KY, asc Ao 3.3 cm, RVSP 40 mmHg PAST MEDICAL HISTORY Diagnosis Date Anemia Aortic stenosis Atrial fibrillation (HCC) Atrial flutter (HCC) Bradycardia Cancer (HCC) thyroid Chronic kidney disease Diabetes (HCC) Gout Heart attack (HCC) HLD (hyperlipidemia) Hypertension Pericardial effusion Recurrent UTI Sleep apnea CPAP SSS (sick sinus syndrome) (HCC) Thyroid disease PAST SURGICAL HISTORY Procedure Laterality Date APPENDECTOMY HX CATARACT SURGERY, COMPLEX HYSTERECTOMY HX PPM DUAL 2018 THYROIDECTOMY TOTAL/COMPLETE Parathyroid removal TOTAL KNEE REPLACEMENT Left x2- one revision Social History Tobacco Use Smoking status: Never Smokeless tobacco: Never Vaping Use Vaping status: Never Used Substance Use Topics Alcohol use: No Drug use: Never FAMILY HISTORY Problem Relation Age of Onset Uterine Cancer Mother Hypertension Father Lung Cancer Father other (Vascular) Son Hypertension Son ALLERGIES Allergen Reactions Darvon [Propoxyphen* Shortness of Breath, Other: See Comments No strength, bad dreams Iodine Anaphylaxis 12/24/23- pt. premedicated with 13 hrs, had CT scan with IV contrast. Patient denied any s/s of SOB, difficulty breathing, wheezing, itching or rash. Lotensin [Benazepri* Vomiting, Other: See Comments Coughing Rivaroxaban Other: See Comments Developed pericardial effusion Shellfish Anaphylaxis Shellfish Containin* Anaphylaxis, Shortness of Breath Spironolactone Other: See Comments Weak, made calcium level high, heart rate 20BPM Adhesive Rash Celecoxib Other: See Comments Due to kidneys Demeral [Meperidine] Vomiting Hydrochlorothiazide Other: See Comments Metformin Other: See Comments Metoprolol Shortness of Breath Penicillins Hives Simvastatin Myalgia, Other: See Comments Sitagliptin Other: See Comments CURRENT MEDICATIONS: amLODIPine (NORVASC) 10 mg tablet Take 1 tablet by mouth once daily. apixaban (ELIQUIS) 2.5 mg tab(s) Take 1 tablet by mouth two times a day. aspirin, enteric coated (ASPIRIN, ENTERIC COATED) 81 mg EC tablet Take 1 tablet by mouth once daily for 7 doses. Patient should start on May 15, 2024. clopidogrel (PLAVIX) 75 mg tablet Take 1 tablet by mouth once daily. Patient should start on May 15, 2024. diphenhydrAMINE (BENADRYL) 25 mg capsule Take 1 capsule by mouth 1 hour prior to procedure with last Prednisone (Patient not taking: Reported on 05/28/2024) furosemide (LASIX) 20 mg tablet Take 0.5 tablets by mouth once daily. glimepiride (AMARYL) 1 mg tablet Take 1 tablet by mouth daily with breakfast. colchicine 0.6 mg tablet Take 1 tablet by mouth every other day. olmesartan (BENICAR) 40 mg tablet Take 1 tablet by mouth once daily. finerenone (KERENDIA) 10 mg tablet q 24 HR. omega 0-sft-ecu-fish oil 360 mg-108 mg- 180 mg-1,200 mg cap q 24 HR. doxazosin (CARDURA) 4 mg tablet Take 1 tablet by mouth daily at bedtime. carvedilol (COREG) 25 mg tablet Take 1 tablet by mouth twice daily with meals. vibegron (GEMTESA) 75 mg tablet Take 1 tablet by mouth once daily. Cranberry 500 mg cap Take 1 capsule by mouth once daily. Ascorbic Acid 500 mg cpER Take by mouth once daily. cinnamon (more content not included)... Normal [facility] Potassiumon 11-01-2024 Potassium [Moles/Vol] 4.7 mmol/L Normal 3.5-5.1 [facility] Comment on above: Performed By: #### L 501.5600 ####[facility] [id number] [place], [address] Potassium measurementOrdered By: Ros Nice on 11-01-2024 Potassium [Moles/Vol] 4.7 mmol/L 3.5-5.1 [facility] Potassium measurement 4.7 mmol/L 3.5-5.1 [facility] CNPBridget 10-28-2024 MOIZN Telephone (FABIO) LYNETTE ANGULO ([id number]) 1940 F Date Time Provider Department 10/28/24 SHEBA SOMERS During your visit today, we recorded the following information about you: Minh Lema 10/28/2024 9:13 AM Signed Pt called scheduling office to inquire why her 11/10 appt has been canceled with Dr. Somers. 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 Somers. Scheduling office verbalized understanding and will let the patient know. Allergies As of Date: 10/28/2024 Noted Allergy Reaction DARVON (PROPOXYPHENE HCL) 02/21/2012 12 - Shortness of Breath 14 - Other: See Comments Comments: No strength, bad dreams IODINE 11/28/2014 10 - Anaphylaxis Comments: 12/24/23- pt. premedicated with 13 hrs, had CT scan with IV contrast. Patient denied any s/s of SOB, difficulty breathing, wheezing, itching or rash. LOTENSIN (BENAZEPRIL HCL) 02/21/2012 11 - Vomiting 14 - Other: See Comments Comments: Coughing RIVAROXABAN 03/29/2022 14 - Other: See Comments Comments: Developed pericardial effusion SHELLFISH 11/28/2014 10 - Anaphylaxis SHELLFISH CONTAINING PRODUCTS 01/27/2019 10 - Anaphylaxis 12 - Shortness of Breath SPIRONOLACTONE 02/21/2012 14 - Other: See Comments Comments: Weak, made calcium level high, heart rate 20BPM ADHESIVE 02/21/2012 2 - Rash CELECOXIB 05/18/2019 14 - Other: See Comments Comments: Due to kidneys DEMERAL (MEPERIDINE) 02/21/2012 11 - Vomiting HYDROCHLOROTHIAZIDE 08/23/2020 14 - Other: See Comments METFORMIN 08/23/2020 14 - Other: See Comments METOPROLOL 08/25/2020 12 - Shortness of Breath PENICILLINS 02/21/2012 4 - Hives SIMVASTATIN 08/23/2020 17 - Myalgia 14 - Other: See Comments SITAGLIPTIN 08/23/2020 14 - Other: See Comments Date Reviewed: 05/28/2024 Reviewed by: Chica Rivera LPN - Fully Assessed Reason for Visit: Appointment [186] Prescriptions as of 10/28/2024 - amLODIPine (NORVASC) 10 mg tablet Take 1 tablet by mouth once daily. - apixaban (ELIQUIS) 2.5 mg tab(s) Take 1 tablet by mouth two times a day. - aspirin, enteric coated (ASPIRIN, ENTERIC COATED) 81 mg EC tablet Take 1 tablet by mouth once daily for 7 doses. Patient should start on May 15, 2024. - clopidogrel (PLAVIX) 75 mg tablet Take 1 tablet by mouth once daily. Patient should start on May 15, 2024. - diphenhydrAMINE (BENADRYL) 25 mg capsule Take 1 capsule by mouth 1 hour prior to procedure with last Prednisone - furosemide (LASIX) 20 mg tablet Take 0.5 tablets by mouth once daily. - glimepiride (AMARYL) 1 mg tablet Take 1 tablet by mouth daily with breakfast. - colchicine 0.6 mg tablet Take 1 tablet by mouth every other day. - olmesartan (BENICAR) 40 mg tablet Take 1 tablet by mouth once daily. - finerenone (KERENDIA) 10 mg tablet q 24 HR. - omega 1-nmq-djy-fish oil 360 mg-108 mg- 180 mg-1,200 mg cap q 24 HR. - doxazosin (CARDURA) 4 mg tablet Take 1 tablet by mouth daily at bedtime. - carvedilol (COREG) 25 mg tablet Take 1 tablet by mouth twice daily with meals. - vibegron (GEMTESA) 75 mg tablet Take 1 tablet by mouth once daily. - Cranberry 500 mg cap Take 1 capsule by mouth once daily. - Ascorbic Acid 500 mg cpER Take by mouth once daily. - cinnamon bark (CINNAMON ORAL) Take by mouth. Take 2,00mg daily. - lovastatin (MEVACOR) 20 mg tablet Take 20 mg by mouth daily at bedtime. - cholecalciferol (VITAMIN D3) 5,000 unit tab Take 5,000 Units by mouth once daily. - pantoprazole DR (PROTONIX) 40 mg tablet TAKE 1 TABLET BY MOUTH ONCE DAILY AT 6 AM - levothyroxine (SYNTHROID) 125 mcg tablet Take 125 mcg by mouth once daily. - latanoprost (XALATAN) 0.005 % ophthalmic solution Use 1 Drop in both eyes daily at bedtime. Meds Comments as of 02/05/2023: 02/05/23 The medications are managed by this patient by: PATIENT Chandni Starr [facility] Problem List As Of Date 10/28/2024 Noted Resolved Pericardial effusion [I31.39] 08/23/2020 09/01/2020 POLY (acute kidney injury) (HCC) [N17.9] 08/24/2020 09/01/2020 Hyponatremia [E87.1] 08/24/2020 Paroxysmal atrial fibrillation (HCC) [I48.0] 08/24/2020 Acute liver disease [K76.9] 08/24/2020 09/01/2020 Type 2 diabetes mellitus with stage 4 chronic k*08/24/2020 SSS (sick sinus syndrome) (HCC) [I49.5] 08/24/2020 Typhoid fever [A01.00] 08/25/2020 Acute idiopathic pericarditis [I30.0] 09/05/2020 Chronic pericarditis [I31.9] 05/30/2022 Primary hypertension [I10] 05/30/2022 Obesity, Class II, BMI 35-39.9 [E66.812] 11/27/2022 Nonrheumatic aortic valve stenosis [I35.0] 01/29/2023 Stenosis of left renal artery (HCC) [I70.1] 01/29/2023 Heart failure, unspecified HF chronicity, unspe*01/29/2023 Stage 4 chronic kidney disease (HCC) [N18.4] 01/30/2023 Cardiac pacemaker [Z95.0] 09/15/2023 History of pericarditis [Z86.79] 09/15/2023 On apixaban (more content not included)... Normal [facility] Potassiumon 10-27-2024 Potassium [Moles/Vol] 5.4 mmol/L High 3.5-5.1 [facility] Comment on above: Performed By: #### L 501.5600, L501.1400 ####[facility] [id number] [place], [place], [address] Potassium measurementOrdered By: Ros Nice on 10-27-2024 Potassium [Moles/Vol] 5.4 mmol/L High 3.5-5.1 [facility] Potassium measurement 5.4 mmol/L High 3.5-5.1 [facility] Serum or plasma uric acid me asurement (mass/volume)Ordered By: Ros Nice on 10-27-2024 Urate [Mass/Vol] 7.0 mg/dL High 2.6-6.[address] [facility] Comment on above: The drugs N-Acetylcy steine and Metamizole may falsely depress this assay. Urate [Mass/Vol]Ordered By: Ros Nice on 10-27-2024 Serum or plasma uric acid measurement (mass/volume) 7.0 mg/dL High 2.6-6.[address] [facility] Uric Acidon 10-27-2024 URIC 7.0 mg/dL High 2.6-6.[address] [facility] Comment on above: Result Comment: The drugs N-Acetylcysteine and Metamizole may falselydepress this assay. Performed By: #### L 501.5600, L501.1400 ####[facility] [id number] [place], [place], [id number] Albumin [Mass/Vol]Ordered By : Ros Nice on 10-20-2024 Serum or plasma albumin measurement (mass/volume) 3.8 g/dL 3.2-5.[address] [facility] Blood urea nitrogen (BUN)/cr eatinine ratioOrdered By: Ros Nice on 10-20-2024 Urea nitrogen/Creatinine [Mass ratio] 28.6 mg/mg High 10-[address] [facility] Blood urea nitrogen (BUN)/creatinine ratio 28.6 RATIO High 10-[address] [facility] Calcium [Mass/Vol]Ordered By : Ros Nice on 10-20-2024 Serum or plasma calcium measurement (mass/volume) 10.3 mg/dL High 8.5-10.[address] [facility] Carbon dioxide measurementOr dered By: Ros Nice on 10-20-2024 CO2 [Moles/Vol] 20.0 mmol/L Low 21.0-32.[address] [facility] Carbon dioxide measurement 20.0 mmol/L Low 21.0-32.[address] [facility] Chloride measurementOrdered By: Ros Nice on 10-20-2024 Chloride [Moles/Vol] 109 mmol/L High 98-107 [facility] Chloride measurement 109 mmol/L High 98-107 [facility] Cholesterol [Mass/Vol]Ordere d By: Jorge Benavides on 10-20-2024 Serum or plasma cholesterol measurement (mass/volume) 169 mg/dL <[address] [facility] Creatinine (U) [Mass/Vol]Ord ered By: Ros Nice on 10-20-2024 Urine creatinine measurement (mass/volume) 198.00 mg/dL NO RANGE EST. [facility] Creatinine [Mass/Vol]Ordered By: Ros Nice on 10-20-2024 Serum or plasma creatinine measurement (mass/volume) 2.13 mg/dL High 0.55-1.[address] [facility] Dexa Bone Density Studyon Dexa Bone Density Study Normal [facility] Estimated glomerular filtrat ion rate (GFR) AmericanOrdered By: Ros Nice on 10-20-2024 Estimated GFR (MDRD) Amer 28 mL/min Low >[address] [facility] Comment on above: GFR Calc Estimated glomerular filtration rate (GFR) 28 mL/min Low >[address] [facility] Glomerular filtration rate ( GFR) estimationOrdered By: Ros Nice on 10-20-2024 Estimated GFR (MDRD) Non-Af Amer 24 mL/min Low >[address] [facility] Comment on above: Non- GFR Calc GFR/1.73 sq M.predicted among non-blacks MDRD (S/P/Bld) [Vol rate/Area] 24 mL/min/{1.73_m2} Low >[address] [facility] Glomerular filtration rate (GFR) estimation 24 mL/min Low >[address] [facility] Glucose measurementOrdered B y: Ros Nice on 10-20-2024 Glucose [Mass/Vol] 119 mg/dL High 74-106 [facility] Comment on above: Fasting Glucose resu lt from 100 to 125 mg/dL suggests IMPAIRED HOMEOSTASIS per A.D.A. criteria. Glucose measurement 119 mg/dL High 74-106 [facility] High density lipoprotein (HD L) measurementOrdered By: Jorge Benavides on 10-20-2024 Cholesterol in HDL [Mass/Vol] 68 mg/dL >[address] [facility] Comment on above: The drugs N-Acetylcy steine and Metamizole may falsely depress this assay. Reference Range HDL <40 mg/dL Low HDL Cholesterol HDL >or= 60 mg/dL High HDL Cholesterol High density lipoprotein (HDL) measurement 68 mg/dL >[address] [facility] High density lipoprotein (HDL) measurement 68 mg/dL >[address] [facility] Lipid Profileon 10-20-2024 Cholesterol [Mass/Vol] 169 mg/dL Normal 200 [facility] Comment on above: Result Comment: <200 mg/dL Desirable 200-240 mg/dL Borderline >240 mg/dL High Risk Performed By: #### L 501.9520, L500.4100 ####[facility] [id number] [place], [address] Cholesterol in HDL [Mass/Vol] 68 mg/dL Normal [facility] Comment on above: Result Comment: The drugs N-Acetylcysteine and Metamizole may falselydepress this assay. Reference Range HDL <40 mg/dL Low HDL Cholesterol HDL >or= 60 mg/dL High HDL Cholesterol Performed By: #### L 501.9520, L500.4100 ####[facility] [id number] [place], [address] Cholesterol in LDL [Mass/Vol] 89 mg/dL Normal 0-[address] [facility] Comment on above: Performed By: #### L [id number], L500.4100 ####[facility] [address] [place], [address] Cholesterol in VLDL [Mass/Vol] 12 mg/dL Normal 5-[address] [facility] Comment on above: Performed By: #### L [id number], L500.4100 ####[facility] [address] [place], [address] Triglyceride [Mass/Vol] 62 mg/dL Normal [facility] Comment on above: Result Comment: The drugs N-Acetylcysteine and Metamizole may falselydepress this assay.Serum Triglycerides Reference Interval Normal <150 mg/dL Borderline high 150 - 199 mg/dL High 200 - 499 mg/dL Very High > or = 500 mg/dL Performed By: #### L [id number], L500.4100 ####[facility] [address] [place], [address] Low density lipoprotein (LDL ) cholesterol measurementOrdered By: Jorge Benavides on 10-20-2024 Cholesterol in LDL [Mass/Vol] 89 mg/dL 0-[address] [facility] Low density lipoprotein (LDL) cholesterol measurement 89 mg/dL 0-[address] [facility] Low density lipoprotein (LDL) cholesterol measurement 89 mg/dL 0-[address] [facility] Phosphorus measurementOrdere d By: Ros Nice on 10-20-2024 Phosphorus Level 3.9 mg/dL 2.5-4.[address] [facility] Phosphorus measurement 3.9 mg/dL 2.5-4.9 [facility] Potassium measurementOrdered By: Ros Nice on 10-20-2024 Potassium [Moles/Vol] 5.4 mmol/L High 3.5-5.1 [facility] Potassium measurement 5.4 mmol/L High 3.5-5.1 [facility] Protein+Creatinine Ratio,Uri neon 10-20-2024 PROT:CRE RATIO 74 mg/g CRE Normal 0-[address] [facility] Comment on above: Performed By: #### L 500.3600, L501.0900 ####[facility] [address] [place], [address] Protein (U) [Mass/Vol] 14.7 mg/dL High <11.9 [facility] Comment on above: Performed By: #### L 500.3600, L501.0900 ####[facility] [address] [place], [address] UR CREAT 198.00 mg/dL Normal NO RANGE EST. [facility] Comment on above: Performed By: #### L 500.3600, L501.0900 ####[facility] [address] [place], [address] Protein/Creatinine (U) [Mass ratio]Ordered By: Ros Nice on 10-20-2024 Urine Protein/Creatinine Ratio 74 mg/g CRE 0-[address] [facility] Urine protein/creatinine mass ratio 74 mg/g CRE 0-[address] [facility] Random urine protein measure mentOrdered By: Ros Nice on 10-20-2024 Protein (U) [Mass/Vol] 14.7 mg/dL High 0.0-11.8 [facility] Random urine protein measurement 14.7 mg/dL High 0.0-11.[address] [facility] Renal Profileon 10-20-2024 Albumin [Mass/Vol] 3.8 g/dL Normal 3.2-5.0 [facility] Comment on above: Performed By: #### L 500.3600, L501.0900 ####[facility] [address] [place], [address] BUN/CRE 28.6 RATIO High 10-[address] [facility] Comment on above: Performed By: #### L 500.3600, L501.0900 ####[facility] [address] [place], [address] CA,Total 10.3 mg/dL High 8.5-10.[address] [facility] Comment on above: Performed By: #### L 500.3600, L501.0900 ####[facility] [address] [place], [address] Chloride [Moles/Vol] 109 mmol/L High 98-107 [facility] Comment on above: Performed By: #### L 500.3600, L501.0900 ####[facility] [address] [place], [address] CO2 [Moles/Vol] 20.0 mmol/L Low 21.0-32.[address] [facility] Comment on above: Performed By: #### L 500.3600, [id number] ####[facility] [address] [place], [address] Creatinine [Mass/Vol] 2.13 mg/dL High 0.55-1.02 [facility] Comment on above: Result Comment: The validity of the calculated GFR GFRAA in patients over70 years has not been determined. Clinical correlation isessential. Performed By: #### L 500.3600, L501.0900 ####[facility] [address] [place], [address] EST GFR - AA 28 mL/min Low >[address] [facility] Comment on above: Result Comment: Afri can S[place] GFR Calc Performed By: #### L 500.3600, L501.0900 ####[facility] [address] [place], [address] GFR/1.73 sq M.predicted among non-blacks MDRD (S/P/Bld) [Vol rate/Area] 24 mL/min/{1.73_m2} Low >[address] [facility] Comment on above: Result Comment: Non- GFR Calc Performed By: #### L 500.3600, L501.0900 ####[facility] [address] [place], [address] Glucose [Mass/Vol] 119 mg/dL High 74-106 [facility] Comment on above: Result Comment: Fast ing Glucose result from 100 to 125 mg/dLsuggests IMPAIRED HOMEOSTASIS per A.D.A. criteria. Performed By: #### L 500.3600, L501.0900 ####[facility] [address] [place], [address] Phosphate [Mass/Vol] 3.9 mg/dL Normal 2.5-4.9 [facility] Comment on above: Performed By: #### L 500.3600, L501.0900 ####[facility] [address] [place], [address] Potassium [Moles/Vol] 5.4 mmol/L High 3.5-5.1 [facility] Comment on above: Performed By: #### L 500.3600, L501.0900 ####[facility] [address] [place], [address] Sodium [Moles/Vol] 137 mmol/L Normal 136-145 [facility] Comment on above: Performed By: #### L 500.3600, L501.0900 ####[facility] [address] [place], [address] Urea nitrogen [Mass/Vol] 61 mg/dL High - [facility] Comment on above: Performed By: #### L 500.3600, L501.0900 ####[facility] [address] [place], [address] Serum or plasma albumin rema urement (mass/volume)Ordered By: Ros Nice on 10-20-2024 Albumin [Mass/Vol] 3.8 g/dL 3.2-5.0 [facility] Serum or plasma calcium rema urement (mass/volume)Ordered By: Ros Nice on 10-20-2024 Calcium [Mass/Vol] 10.3 mg/dL High 8.5-10.1 [facility] Serum or plasma cholesterol measurement (mass/volume)Ordered By: Jorge Benavides on 10-20-2024 Cholesterol [Mass/Vol] 169 mg/dL <200 [facility] Comment on above: <200 mg/dL Desirable 200-240 mg/dL Borderline >240 mg/dL High Risk Serum or plasma creatinine m easurement (mass/volume)Ordered By: Ros Nice on 10-20-2024 Creatinine [Mass/Vol] 2.13 mg/dL High 0.55-1.02 [facility] Comment on above: The validity of the calculated GFR & GFRAA in patients over 70 years has not been determined. Clinical correlation is essential. Serum or plasma thyroid stim ulating hormone (TSH) measurement (units/volume)Ordered By: Jorge Benavides on 10-20-2024 TSH Qn 3.900 uIU/mL High 0.358-3.[address] [facility] Serum or plasma urea nitroge n measurement (mass/volume)Ordered By: Ros Nice on 10-20-2024 Urea nitrogen [Mass/Vol] 61 mg/dL High -[address] [facility] Sodium levelOrdered By: Victoria Nice on 10-20-2024 Sodium [Moles/Vol] 137 mmol/L 136-145 [facility] Sodium level 137 mmol/L 136-[address] [facility] TSH QnOrdered By: Jorge barrett on 10-20-2024 Thyroid Stimulating Hormone (TSH) 3.900 uIU/mL High 0.358-3.[address] [facility] Serum or plasma thyroid stimulating hormone (TSH) measurement (units/volume) 3.900 uIU/mL High 0.358-3.[address] [facility] Thyroid Stim Hormone (TSH)on 10-20-2024 TSH 3.900 uIU/mL High 0.358-3.[address] [facility] Comment on above: Performed By: #### L [id number], L500.4100 ####[facility] [address] [place], [address] Triglycerides measurementOrd ered By: Jorge Benavides on 10-20-2024 Triglyceride [Mass/Vol] 62 mg/dL <[address] [facility] Comment on above: The drugs N-Acetylcy steine and Metamizole may falsely depress this assay.Serum Triglycerides Reference Interval Normal <150 mg/dL Borderline high 150 - 199 mg/dL High 200 - 499 mg/dL Very High > or = 500 mg/dL Triglycerides measurement 62 mg/dL <[address] [facility] Urea nitrogen [Mass/Vol]Orde red By: Ros Nice on 10-20-2024 Serum or plasma urea nitrogen measurement (mass/volume) 61 mg/dL High 7-[address] [facility] Urine creatinine measurement (mass/volume)Ordered By: Ros Nice on 10-20-2024 Creatinine (U) [Mass/Vol] 198.00 mg/dL NO RANGE EST. [facility] Urine protein/creatinine mas s ratioOrdered By: Ros Nice on 10-20-2024 Protein/Creatinine (U) [Mass ratio] 74 mg/g CRE 0-[address] [facility] Very low density lipoprotein (VLDL) cholesterol measurementOrdered By: Jorge Benavides on 10-20-2024 Very low density lipoprotein (VLDL) cholesterol measurement 12 mg/dL 5-[address] [facility] VLDL Cholesterol 12 mg/dL -[address] [facility] Very low density lipoprotein (VLDL) cholesterol measurement 12 mg/dL -[address] [facility] Laboratory - Hematology and Cell countson 10-12-2024 HbA1c (Bld) [Mass fraction] 6.1 % 4.2-6.[address] [facility] No Panel Informationon 10-12 6.1 % 4.2-6.[address] [facility] Internal Medicine Office Vis iton 10-11-2024 Internal Medicine Office Visit Normal [facility] TSH QnOrdered By: Jorge barrett on 08-23-2024 Thyroid Stimulating Hormone (TSH) 1.790 uIU/mL 0.358-3.[address] [facility] Thyroid Stim Hormone (TSH)on 08-23-2024 TSH 1.790 uIU/mL Normal 0.358-3.[address] [facility] Comment on above: Performed By: #### L [id number] ####[facility] [address] [place], [address] Internal Medicine Office Vis iton 08-19-2024 Internal Medicine Office Visit Normal [facility] David 07-14-2024 ROLANDO Telephone (FABIO) DARINLYNETTE ([id number]) 1940 F Date Time Provider Department 07/14/24 SHEBA SOMERS During your visit today, we recorded the following information about you: Elda Brooks HUC 07/14/2024 4:32 PM Signed [phone] Spoke with patient. Will set up a telephone visit with Dr. Somers on 07/22 at 2:30 to discuss the risk of PCI. Dr. Somers had lengthy conversation with pt on 06/01 regarding the risk. Allergies As of Date: 07/14/2024 Noted Allergy Reaction DARVON (PROPOXYPHENE HCL) 02/21/2012 12 - Shortness of Breath 14 - Other: See Comments Comments: No strength, bad dreams IODINE 11/28/2014 10 - Anaphylaxis Comments: 12/24/23- pt. premedicated with 13 hrs, had CT scan with IV contrast. Patient denied any s/s of SOB, difficulty breathing, wheezing, itching or rash. LOTENSIN (BENAZEPRIL HCL) 02/21/2012 11 - Vomiting 14 - Other: See Comments Comments: Coughing RIVAROXABAN 03/29/2022 14 - Other: See Comments Comments: Developed pericardial effusion SHELLFISH 11/28/2014 10 - Anaphylaxis SHELLFISH CONTAINING PRODUCTS 01/27/2019 10 - Anaphylaxis 12 - Shortness of Breath SPIRONOLACTONE 02/21/2012 14 - Other: See Comments Comments: Weak, made calcium level high, heart rate 20BPM ADHESIVE 02/21/2012 2 - Rash CELECOXIB 05/18/2019 14 - Other: See Comments Comments: Due to kidneys DEMERAL (MEPERIDINE) 02/21/2012 11 - Vomiting HYDROCHLOROTHIAZIDE 08/23/2020 14 - Other: See Comments METFORMIN 08/23/2020 14 - Other: See Comments METOPROLOL 08/25/2020 12 - Shortness of Breath PENICILLINS 02/21/2012 4 - Hives SIMVASTATIN 08/23/2020 17 - Myalgia 14 - Other: See Comments SITAGLIPTIN 08/23/2020 14 - Other: See Comments Date Reviewed: 05/28/2024 Reviewed by: Chica Rivera LPN - Fully Assessed Prescriptions as of 07/14/2024 - apixaban (ELIQUIS) 2.5 mg tab(s) Take 1 tablet by mouth two times a day. - aspirin, enteric coated (ASPIRIN, ENTERIC COATED) 81 mg EC tablet Take 1 tablet by mouth once daily for 7 doses. Patient should start on May 15, 2024. - clopidogrel (PLAVIX) 75 mg tablet Take 1 tablet by mouth once daily. Patient should start on May 15, 2024. - amLODIPine (NORVASC) 10 mg tablet Take 1 tablet by mouth once daily. - diphenhydrAMINE (BENADRYL) 25 mg capsule Take 1 capsule by mouth 1 hour prior to procedure with last Prednisone - furosemide (LASIX) 20 mg tablet Take 0.5 tablets by mouth once daily. - glimepiride (AMARYL) 1 mg tablet Take 1 tablet by mouth daily with breakfast. - colchicine 0.6 mg tablet Take 1 tablet by mouth every other day. - olmesartan (BENICAR) 40 mg tablet Take 1 tablet by mouth once daily. - finerenone (KERENDIA) 10 mg tablet q 24 HR. - omega 8-aqy-szm-fish oil 360 mg-108 mg- 180 mg-1,200 mg cap q 24 HR. - doxazosin (CARDURA) 4 mg tablet Take 1 tablet by mouth daily at bedtime. - carvedilol (COREG) 25 mg tablet Take 1 tablet by mouth twice daily with meals. - vibegron (GEMTESA) 75 mg tablet Take 1 tablet by mouth once daily. - Cranberry 500 mg cap Take 1 capsule by mouth once daily. - Ascorbic Acid 500 mg cpER Take by mouth once daily. - cinnamon bark (CINNAMON ORAL) Take by mouth. Take 2,00mg daily. - lovastatin (MEVACOR) 20 mg tablet Take 20 mg by mouth daily at bedtime. - cholecalciferol (VITAMIN D3) 5,000 unit tab Take 5,000 Units by mouth once daily. - pantoprazole DR (PROTONIX) 40 mg tablet TAKE 1 TABLET BY MOUTH ONCE DAILY AT 6 AM - levothyroxine (SYNTHROID) 125 mcg tablet Take 125 mcg by mouth once daily. - latanoprost (XALATAN) 0.005 % ophthalmic solution Use 1 Drop in both eyes daily at bedtime. Meds Comments as of 02/05/2023: 02/05/23 The medications are managed by this patient by: PATIENT Chandni Matty [facility] Problem List As Of Date 07/14/2024 Noted Resolved Pericardial effusion [I31.39] 08/23/2020 09/01/2020 POLY (acute kidney injury) (HCC) [N17.9] 08/24/2020 09/01/2020 Hyponatremia [E87.1] 08/24/2020 Paroxysmal atrial fibrillation (HCC) [I48.0] 08/24/2020 Acute liver disease [K76.9] 08/24/2020 09/01/2020 Type 2 diabetes mellitus with stage 4 chronic k*08/24/2020 SSS (sick sinus syndrome) (HCC) [I49.5] 08/24/2020 Typhoid fever [A01.00] 08/25/2020 Acute idiopathic pericarditis [I30.0] 09/05/2020 Chronic pericarditis [I31.9] 05/30/2022 Primary hypertension [I10] 05/30/2022 Obesity, Class II, BMI 35-39.9 [E66.812] 11/27/2022 Nonrheumatic aortic valve stenosis [I35.0] 01/29/2023 Stenosis of left renal artery (HCC) [I70.1] 01/29/2023 Heart failure, unspecified HF chronicity, unspe*01/29/2023 Stage 4 chronic kidney disease (HCC) [N18.4] 01/30/2023 Cardiac pacemaker [Z95.0] 09/15/2023 History of pericarditis [Z86.79] 09/15/2023 On apixaban therapy [Z79.01] 09/15/2023 Obesity, Class I, BMI 30-34.9 [E66.811] 12/24/2023 S/P TAVR (transcatheter (more content not included)... Normal [facility] 07-12-2024 CNPN Telephone (CATHMN) LYNETTE ANGULO ([id number]) 1940 F Date Time Provider Department 07/12/24 SHEBA SOMERS CATHWI During your visit today, we recorded the following information about you: Elda Brooks HUC 07/12/2024 10:33 AM Signed [phone] Spoke with patient and told pt I would put on Dr. Somers desk for review Allergies As of Date: 07/12/2024 Noted Allergy Reaction DARVON (PROPOXYPHENE HCL) 02/21/2012 12 - Shortness of Breath 14 - Other: See Comments Comments: No strength, bad dreams IODINE 11/28/2014 10 - Anaphylaxis Comments: 12/24/23- pt. premedicated with 13 hrs, had CT scan with IV contrast. Patient denied any s/s of SOB, difficulty breathing, wheezing, itching or rash. LOTENSIN (BENAZEPRIL HCL) 02/21/2012 11 - Vomiting 14 - Other: See Comments Comments: Coughing RIVAROXABAN 03/29/2022 14 - Other: See Comments Comments: Developed pericardial effusion SHELLFISH 11/28/2014 10 - Anaphylaxis SHELLFISH CONTAINING PRODUCTS 01/27/2019 10 - Anaphylaxis 12 - Shortness of Breath SPIRONOLACTONE 02/21/2012 14 - Other: See Comments Comments: Weak, made calcium level high, heart rate 20BPM ADHESIVE 02/21/2012 2 - Rash CELECOXIB 05/18/2019 14 - Other: See Comments Comments: Due to kidneys DEMERAL (MEPERIDINE) 02/21/2012 11 - Vomiting HYDROCHLOROTHIAZIDE 08/23/2020 14 - Other: See Comments METFORMIN 08/23/2020 14 - Other: See Comments METOPROLOL 08/25/2020 12 - Shortness of Breath PENICILLINS 02/21/2012 4 - Hives SIMVASTATIN 08/23/2020 17 - Myalgia 14 - Other: See Comments SITAGLIPTIN 08/23/2020 14 - Other: See Comments Date Reviewed: 05/28/2024 Reviewed by: Chica Rivera LPN - Fully Assessed Prescriptions as of 07/12/2024 - apixaban (ELIQUIS) 2.5 mg tab(s) Take 1 tablet by mouth two times a day. - aspirin, enteric coated (ASPIRIN, ENTERIC COATED) 81 mg EC tablet Take 1 tablet by mouth once daily for 7 doses. Patient should start on May 15, 2024. - clopidogrel (PLAVIX) 75 mg tablet Take 1 tablet by mouth once daily. Patient should start on May 15, 2024. - amLODIPine (NORVASC) 10 mg tablet Take 1 tablet by mouth once daily. - diphenhydrAMINE (BENADRYL) 25 mg capsule Take 1 capsule by mouth 1 hour prior to procedure with last Prednisone - furosemide (LASIX) 20 mg tablet Take 0.5 tablets by mouth once daily. - glimepiride (AMARYL) 1 mg tablet Take 1 tablet by mouth daily with breakfast. - colchicine 0.6 mg tablet Take 1 tablet by mouth every other day. - olmesartan (BENICAR) 40 mg tablet Take 1 tablet by mouth once daily. - finerenone (KERENDIA) 10 mg tablet q 24 HR. - omega 3-eeh-roy-fish oil 360 mg-108 mg- 180 mg-1,200 mg cap q 24 HR. - doxazosin (CARDURA) 4 mg tablet Take 1 tablet by mouth daily at bedtime. - carvedilol (COREG) 25 mg tablet Take 1 tablet by mouth twice daily with meals. - vibegron (GEMTESA) 75 mg tablet Take 1 tablet by mouth once daily. - Cranberry 500 mg cap Take 1 capsule by mouth once daily. - Ascorbic Acid 500 mg cpER Take by mouth once daily. - cinnamon bark (CINNAMON ORAL) Take by mouth. Take 2,00mg daily. - lovastatin (MEVACOR) 20 mg tablet Take 20 mg by mouth daily at bedtime. - cholecalciferol (VITAMIN D3) 5,000 unit tab Take 5,000 Units by mouth once daily. - pantoprazole DR (PROTONIX) 40 mg tablet TAKE 1 TABLET BY MOUTH ONCE DAILY AT 6 AM - levothyroxine (SYNTHROID) 125 mcg tablet Take 125 mcg by mouth once daily. - latanoprost (XALATAN) 0.005 % ophthalmic solution Use 1 Drop in both eyes daily at bedtime. Meds Comments as of 02/05/2023: 02/05/23 The medications are managed by this patient by: PATIENT Chandni Starr [facility] Problem List As Of Date 07/12/2024 Noted Resolved Pericardial effusion [I31.39] 08/23/2020 09/01/2020 POLY (acute kidney injury) (HCC) [N17.9] 08/24/2020 09/01/2020 Hyponatremia [E87.1] 08/24/2020 Paroxysmal atrial fibrillation (HCC) [I48.0] 08/24/2020 Acute liver disease [K76.9] 08/24/2020 09/01/2020 Type 2 diabetes mellitus with stage 4 chronic k*08/24/2020 SSS (sick sinus syndrome) (HCC) [I49.5] 08/24/2020 Typhoid fever [A01.00] 08/25/2020 Acute idiopathic pericarditis [I30.0] 09/05/2020 Chronic pericarditis [I31.9] 05/30/2022 Primary hypertension [I10] 05/30/2022 Obesity, Class II, BMI 35-39.9 [E66.812] 11/27/2022 Nonrheumatic aortic valve stenosis [I35.0] 01/29/2023 Stenosis of left renal artery (HCC) [I70.1] 01/29/2023 Heart failure, unspecified HF chronicity, unspe*01/29/2023 Stage 4 chronic kidney disease (HCC) [N18.4] 01/30/2023 Cardiac pacemaker [Z95.0] 09/15/2023 History of pericarditis [Z86.79] 09/15/2023 On apixaban therapy [Z79.01] 09/15/2023 Obesity, Class I, BMI 30-34.9 [E66.811] 12/24/2023 S/P TAVR (transcatheter aortic valve replacemen*02/09/2024 Mixed hyperlipidemia [E78.2] 02/10/2024 Coronary artery disease involving [place] (more content not included)... Normal [facility] CNPNon 06-30-2024 CNPN Telephone (CATHMN) DARINLYNETTE Leahy ([id number]) 1940 F Date Time Provider Department 06/30/24 SHEBA SOMERS During your visit today, we recorded the following information about you: Uzma Gil 06/30/2024 4:17 PM Signed June 30, 2024 [id number] Patient Name: Lynette Angulo Contact Information: [phone] (home) [phone] (cell) Reason For Call:Other Issue: Physician:Dr Somers Pt calls today to follow up on POC as discussed between Dr Suazo and Dr Somers. Allergies As of Date: 06/30/2024 Noted Allergy Reaction DARVON (PROPOXYPHENE HCL) 02/21/2012 12 - Shortness of Breath 14 - Other: See Comments Comments: No strength, bad dreams IODINE 11/28/2014 10 - Anaphylaxis Comments: 12/24/23- pt. premedicated with 13 hrs, had CT scan with IV contrast. Patient denied any s/s of SOB, difficulty breathing, wheezing, itching or rash. LOTENSIN (BENAZEPRIL HCL) 02/21/2012 11 - Vomiting 14 - Other: See Comments Comments: Coughing RIVAROXABAN 03/29/2022 14 - Other: See Comments Comments: Developed pericardial effusion SHELLFISH 11/28/2014 10 - Anaphylaxis SHELLFISH CONTAINING PRODUCTS 01/27/2019 10 - Anaphylaxis 12 - Shortness of Breath SPIRONOLACTONE 02/21/2012 14 - Other: See Comments Comments: Weak, made calcium level high, heart rate 20BPM ADHESIVE 02/21/2012 2 - Rash CELECOXIB 05/18/2019 14 - Other: See Comments Comments: Due to kidneys DEMERAL (MEPERIDINE) 02/21/2012 11 - Vomiting HYDROCHLOROTHIAZIDE 08/23/2020 14 - Other: See Comments METFORMIN 08/23/2020 14 - Other: See Comments METOPROLOL 08/25/2020 12 - Shortness of Breath PENICILLINS 02/21/2012 4 - Hives SIMVASTATIN 08/23/2020 17 - Myalgia 14 - Other: See Comments SITAGLIPTIN 08/23/2020 14 - Other: See Comments Date Reviewed: 05/28/2024 Reviewed by: Chica Rivera LPN - Fully Assessed Reason for Visit: Patient Question [1477] Prescriptions as of 06/30/2024 - apixaban (ELIQUIS) 2.5 mg tab(s) Take 1 tablet by mouth two times a day. - aspirin, enteric coated (ASPIRIN, ENTERIC COATED) 81 mg EC tablet Take 1 tablet by mouth once daily for 7 doses. Patient should start on May 15, 2024. - clopidogrel (PLAVIX) 75 mg tablet Take 1 tablet by mouth once daily. Patient should start on May 15, 2024. - amLODIPine (NORVASC) 10 mg tablet Take 1 tablet by mouth once daily. - diphenhydrAMINE (BENADRYL) 25 mg capsule Take 1 capsule by mouth 1 hour prior to procedure with last Prednisone - furosemide (LASIX) 20 mg tablet Take 0.5 tablets by mouth once daily. - glimepiride (AMARYL) 1 mg tablet Take 1 tablet by mouth daily with breakfast. - colchicine 0.6 mg tablet Take 1 tablet by mouth every other day. - olmesartan (BENICAR) 40 mg tablet Take 1 tablet by mouth once daily. - finerenone (KERENDIA) 10 mg tablet q 24 HR. - omega 6-nvr-lno-fish oil 360 mg-108 mg- 180 mg-1,200 mg cap q 24 HR. - doxazosin (CARDURA) 4 mg tablet Take 1 tablet by mouth daily at bedtime. - carvedilol (COREG) 25 mg tablet Take 1 tablet by mouth twice daily with meals. - vibegron (GEMTESA) 75 mg tablet Take 1 tablet by mouth once daily. - Cranberry 500 mg cap Take 1 capsule by mouth once daily. - Ascorbic Acid 500 mg cpER Take by mouth once daily. - cinnamon bark (CINNAMON ORAL) Take by mouth. Take 2,00mg daily. - lovastatin (MEVACOR) 20 mg tablet Take 20 mg by mouth daily at bedtime. - cholecalciferol (VITAMIN D3) 5,000 unit tab Take 5,000 Units by mouth once daily. - pantoprazole DR (PROTONIX) 40 mg tablet TAKE 1 TABLET BY MOUTH ONCE DAILY AT 6 AM - levothyroxine (SYNTHROID) 125 mcg tablet Take 125 mcg by mouth once daily. - latanoprost (XALATAN) 0.005 % ophthalmic solution Use 1 Drop in both eyes daily at bedtime. Meds Comments as of 02/05/2023: 02/05/23 The medications are managed by this patient by: PATIENT Chandni Starr [facility] Problem List As Of Date 06/30/2024 Noted Resolved Pericardial effusion [I31.39] 08/23/2020 09/01/2020 POLY (acute kidney injury) (HCC) [N17.9] 08/24/2020 09/01/2020 Hyponatremia [E87.1] 08/24/2020 Paroxysmal atrial fibrillation (HCC) [I48.0] 08/24/2020 Acute liver disease [K76.9] 08/24/2020 09/01/2020 Type 2 diabetes mellitus with stage 4 chronic k*08/24/2020 SSS (sick sinus syndrome) (HCC) [I49.5] 08/24/2020 Typhoid fever [A01.00] 08/25/2020 Acute idiopathic pericarditis [I30.0] 09/05/2020 Chronic pericarditis [I31.9] 05/30/2022 Primary hypertension [I10] 05/30/2022 Obesity, Class II, BMI 35-39.9 [E66.812] 11/27/2022 Nonrheumatic aortic valve stenosis [I35.0] 01/29/2023 Stenosis of left renal artery (HCC) [I70.1] 01/29/2023 Heart failure, unspecified HF chronicity, unspe*01/29/2023 Stage 4 chronic kidney disease (HCC) [N18.4] 01/30/2023 Cardiac pacemaker [Z95.0] 09/15/2023 History of pericarditis [Z86.79] 09/15/2023 On apixaban t (more content not included)... Normal [facility] CNOVon 06-24-2024 CNOV Office Visit (CARDMM ) DARINLYNETTE Leahy ([id number]) 1940 F Date Time Provider Department 06/24/24 10:00 AM XIAO SUAZO During your visit today, we recorded the following information about you: Pulse Blood pressure Weight 58/minute 124/66 86.6 kg Xiao Suazo MD 06/24/2024 10:46 AM Signed EP STAFF NOTE: Please note: This note has been produced using speech recognition software and may contain errors related to that system including grammar, punctuation, spelling, gender and words and phrases that may be inappropriate I have reviewed the above information and examined the patient and confirm the above with the following additions/modifications. ECG: PE: Vitals: BP 124/66 Pulse (!) 58 Wt 86.6 kg (190 lb 14.7 oz) SpO2 100% BMI 37.29 kg/m? General: Arrives in wheelchiar. In no acute distress. Lungs: Unlabored Heart: RRR, KULDIP Extremities: No peripheral edema bilaterally. DEVICE CHECK: DUAL LEAD PACEMAKERS REMOTE EVALUATION 01/14/2024: PRESENTING EGM: AP/VS BATTERY STATUS: Estimated time remaining to TORI is 7.5 yrs COUNTERS SINCE: 12/26/23 ATRIAL ARRHYTHMIAS: There was 1 AF event began on 12/25/23 that lasted 2.8 days. AF burden 11.3%. PAF per graph. On Eliquis per Epic. VENTRICULAR ARRHYTHMIAS: There have been no ventricular detections. LEAD MEASUREMENTS: Sensing and auto capture trends are appropriate. Review of the lead impedance trends are normal. OTHER DIAGNOSTICS: RA pacing 88.8%. RV pacing 8.4%. FOLLOW UP: Continue 3 month remote transmissions and yearly in-clinic interrogations. Talisha White RN NOTE TO PROVIDERS: CARD Flowsheets contain detailed device programming and testing data. Paceart/Interrogation PDF can be found under CARDIAC DATA AND REPORT, Scanned Documents section. : * Normal Device Function * Alerts or events: None * Battery: OK, 7.83 yrs * Sensing, impedance and thresholds reviewed * Programmed parameters reviewed * Presenting rhythm AP/VS with PVC * Heart Rate Histograms reviewed * No significant changes noted * AP 63.8%, ENDOCRINOLOGIST 33.2% (MVP On) Title: Tachycardia: AF * No available EGMs * AT/AF [place]: 36.2% * Total number of events: 0 Today: DUAL CHAMBER PACEMAKER EVALUATION PRESENTS FOR: Office visit with Dr. Suazo PRESENTING EGM: AP/VS UNDERLYING RHYTHM: No atrial intrinsic @ DDD 30, AV conduction intact. BATTERY STATUS: Estimated time remaining to TORI is 7.8 years. COUNTERS SINCE: 02/09/2024 ATRIAL ARRHYTHMIAS: No sustained AF since ~March 2024. Anticoagulants listed: Eliquis. VENTRICULAR ARRHYTHMIAS: There have been no ventricular detections since the last evaluation. LEAD MEASUREMENTS: RV sensing is WNL. RA/RV Captures are appropriate. The pacing outputs maintain safety margin. Review of the lead impedance trends are normal. IMPLANT SITE/ SYMPTOMS: The incision and pocket are pain-free (0/10), well healed and without signs of erosion or infection. No arm swelling, syncope, pre-syncope or device related pocket stimulation. 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 This does not seem to be worse or correlate with AF episodes. OTHER DIAGNOSTICS: RA pacing 71.7% V pacing 25.5% PROGRAMMING CHANGES MADE TODAY: None. FOLLOW UP: q3 month remotes with yearly clinic visits. PROBLEM LIST: Sroubek pt chronic UTIs hypothyroidism diabetes hyperlipidemia hypertension CKD aortic stenosis sick sinus syndrome s/p dual chamber pacemaker 2018 PAF CHADS VASc 7 - on Eliquis LBBB NM Spect/CT Cardiac Amyloid 12/26/2023: CONCLUSIONS: 1. Not Consistent with TTR amyloidosis 2. No bone abnormalities. Cardiac Cath 12/25/2023: Impression: -R dominant system with a 60-70% ostial RCA lesion and a 60% ostial lesion in the second diagonal. -Moderate disease in the mid LAD and OM1. Recommended Treatment: Medical Therapy. Plan: -Will discuss case in multidisciplinary TAVR meeting; can consider PCI to the ostial RCA +/- D2 or bypass if pursuing surgical option -Medical therapy for CAD Echo 11/19/2023: CONCLUSIONS: - Exam indication: Pericardial conditions - The left ventricle is normal in size. There is moderate concentric left ventricular hypertrophy. Left ventricular systolic function is normal. EF = 57 ? 5% (2D biplane) - The right ventricle is normal in size. Right ventricular systolic function is normal. - Tricuspid aortic valve. There is moderate aortic valve stenosis caused by calcified valve and restricted opening. AV area is 1.03 cm? (0.55 cm?/m?) by continuity, VTI. The peak gradient is 31 mmHg, the mean gradient is 19 mmHg and the dimensionless valve index is 0.31. Prior AV peak/mean gradients were 40/22 mmHg. - No evidence of constrictive physiology. - Exam was compared with the prior C (more content not included)... Normal [facility] CNPBridget 06-22-2024 CNPN Telephone (CARDMN) LYNETTE ANGULO ([id number]) 1940 F Date Time Provider Department 06/22/24 DOMENIC SERRANO During your visit today, we recorded the following information about you: Darion Terrell 06/22/2024 2:11 PM Signed CALLED PT ON 06/14 AND 06/22 TO MAKE AWARE APT ON 08/13/24 HAS BEEN RESCHEDULED TO 11/10/24 NO ANSWER LVM -DARION TERRELL Allergies As of Date: 06/22/2024 Noted Allergy Reaction DARVON (PROPOXYPHENE HCL) 02/21/2012 12 - Shortness of Breath 14 - Other: See Comments Comments: No strength, bad dreams IODINE 11/28/2014 10 - Anaphylaxis Comments: 12/24/23- pt. premedicated with 13 hrs, had CT scan with IV contrast. Patient denied any s/s of SOB, difficulty breathing, wheezing, itching or rash. LOTENSIN (BENAZEPRIL HCL) 02/21/2012 11 - Vomiting 14 - Other: See Comments Comments: Coughing RIVAROXABAN 03/29/2022 14 - Other: See Comments Comments: Developed pericardial effusion SHELLFISH 11/28/2014 10 - Anaphylaxis SHELLFISH CONTAINING PRODUCTS 01/27/2019 10 - Anaphylaxis 12 - Shortness of Breath SPIRONOLACTONE 02/21/2012 14 - Other: See Comments Comments: Weak, made calcium level high, heart rate 20BPM ADHESIVE 02/21/2012 2 - Rash CELECOXIB 05/18/2019 14 - Other: See Comments Comments: Due to kidneys DEMERAL (MEPERIDINE) 02/21/2012 11 - Vomiting HYDROCHLOROTHIAZIDE 08/23/2020 14 - Other: See Comments METFORMIN 08/23/2020 14 - Other: See Comments METOPROLOL 08/25/2020 12 - Shortness of Breath PENICILLINS 02/21/2012 4 - Hives SIMVASTATIN 08/23/2020 17 - Myalgia 14 - Other: See Comments SITAGLIPTIN 08/23/2020 14 - Other: See Comments Date Reviewed: 05/28/2024 Reviewed by: Chica Rivera LPN - Fully Assessed Prescriptions as of 06/22/2024 - apixaban (ELIQUIS) 2.5 mg tab(s) Take 1 tablet by mouth two times a day. - aspirin, enteric coated (ASPIRIN, ENTERIC COATED) 81 mg EC tablet Take 1 tablet by mouth once daily for 7 doses. Patient should start on May 15, 2024. - clopidogrel (PLAVIX) 75 mg tablet Take 1 tablet by mouth once daily. Patient should start on May 15, 2024. - amLODIPine (NORVASC) 10 mg tablet Take 1 tablet by mouth once daily. - predniSONE (DELTASONE) 50 mg Take one tablet by mouth13 hrs prior to scan, then 7 hrs prior to scan and then 1 hr prior to scan - diphenhydrAMINE (BENADRYL) 25 mg capsule Take 1 capsule by mouth 1 hour prior to procedure with last Prednisone - furosemide (LASIX) 20 mg tablet Take 0.5 tablets by mouth once daily. - glimepiride (AMARYL) 1 mg tablet Take 1 tablet by mouth daily with breakfast. - colchicine 0.6 mg tablet Take 1 tablet by mouth every other day. - olmesartan (BENICAR) 40 mg tablet Take 1 tablet by mouth once daily. - finerenone (KERENDIA) 10 mg tablet q 24 HR. - omega 4-ret-swk-fish oil 360 mg-108 mg- 180 mg-1,200 mg cap q 24 HR. - aspirin 81 mg chewable tablet Take 1 tablet by mouth once daily. - doxazosin (CARDURA) 4 mg tablet Take 1 tablet by mouth daily at bedtime. - carvedilol (COREG) 25 mg tablet Take 1 tablet by mouth twice daily with meals. - vibegron (GEMTESA) 75 mg tablet Take 1 tablet by mouth once daily. - Cranberry 500 mg cap Take 1 capsule by mouth once daily. - Ascorbic Acid 500 mg cpER Take by mouth once daily. - cinnamon bark (CINNAMON ORAL) Take by mouth. Take 2,00mg daily. - lovastatin (MEVACOR) 20 mg tablet Take 20 mg by mouth daily at bedtime. - cholecalciferol (VITAMIN D3) 5,000 unit tab Take 5,000 Units by mouth once daily. - pantoprazole DR (PROTONIX) 40 mg tablet TAKE 1 TABLET BY MOUTH ONCE DAILY AT 6 AM - levothyroxine (SYNTHROID) 125 mcg tablet Take 125 mcg by mouth once daily. - latanoprost (XALATAN) 0.005 % ophthalmic solution Use 1 Drop in both eyes daily at bedtime. Meds Comments as of 02/05/2023: 02/05/23 The medications are managed by this patient by: PATIENT Chandni Starr RPh Problem List As Of Date 06/22/2024 Noted Resolved Pericardial effusion [I31.39] 08/23/2020 09/01/2020 POLY (acute kidney injury) (HCC) [N17.9] 08/24/2020 09/01/2020 Hyponatremia [E87.1] 08/24/2020 Paroxysmal atrial fibrillation (HCC) [I48.0] 08/24/2020 Acute liver disease [K76.9] 08/24/2020 09/01/2020 Type 2 diabetes mellitus with stage 4 chronic k*08/24/2020 SSS (sick sinus syndrome) (HCC) [I49.5] 08/24/2020 Typhoid fever [A01.00] 08/25/2020 Acute idiopathic pericarditis [I30.0] 09/05/2020 Chronic pericarditis [I31.9] 05/30/2022 Primary hypertension [I10] 05/30/2022 Obesity, Class II, BMI 35-39.9 [E66.9] 11/27/2022 Nonrheumatic aortic valve stenosis [I35.0] 01/29/2023 Stenosis of left renal artery (HCC) [I70.1] 01/29/2023 Heart failure, unspecified HF chronicity, unspe*01/29/2023 Stage 4 chronic kidney disease (HCC) [N18.4] 01/30/2023 Cardiac pacemaker [Z95.0] 09/15/2023 History of pericarditis [Z86.79] 09/15/2023 On apixaban (more content not included)... Normal [facility] CBC W Auto Differential pane l (Bld)on 02-18-2024 [facility]ld) [facility] Basophils/100 WBC (Bld) 0.2 % [facility] Differential cell count method Nom (Bld) Auto [facility] Eosinophils (Bld) [#/Vol] 0.08 10*3/uL [facility] Eosinophils/100 WBC (Bld) 1.4 % [facility] [place] Erythrocyte distribution width (RBC) [Ratio] 13.4 % 11.5 - 15.0 % [facility] [place] Hematocrit (Bld) [Volume fraction] 33.6 % Low 36.0 - 46.0 % [facility] Hemoglobin (Bld) [Mass/Vol] 10.8 g/dL Low 11.5 - 15.5 g/dL [facility] [place] Immature granulocytes (Bld) [#/Vol] 0.06 10*3/uL NINF [facility] [place] Immature granulocytes/100 WBC (Bld) 1.1 % [facility] Interpretation and review of laboratory results Abnormal [facility] Lymphocytes (Bld) [#/Vol] 1.28 10*3/uL [facility] [place] Lymphocytes/100 WBC (Bld) 22.6 % [facility] [place] MCH (RBC) [Entitic mass] 32.1 pg 26.0 - 34.0 pg [facility] [place] MCHC (RBC) [Mass/Vol] 32.1 g/dL 30.5 - 36.0 g/dL [facility] [place] MCV (RBC) [Entitic vol] 100.0 fL 80.0 - 100.0 fL [facility] [place] Monocytes (Bld) [#/Vol] 0.49 10*3/uL [facility] [place] Monocytes/100 WBC (Bld) 8.7 % [facility] [place] Neutrophils (Bld) [#/Vol] 3.74 10*3/uL [facility] [place] Neutrophils/100 WBC (Bld) 66.0 % [facility] [place] Nucleated RBC (Bld) [#/Vol] [facility] [place] Nucleated RBC/100 WBC (Bld) [Ratio] 0.0 % /100 WBC [facility] Platelet mean volume (Bld) [Entitic vol] 10.2 fL 9.0 - 12.7 fL [facility] [place] Platelets (Bld) [#/Vol] 124 10*3/uL Low [facility] RBC (Bld) [#/Vol] 3.36 10*6/uL Low 3.90 - 5.20 m/uL [facility] [place] WBC (Bld) [#/Vol] 5.66 10*3/uL [facility] Comprehensive metabolic 2000 panelon 02-18-2024 Albumin [Mass/Vol] 3.9 g/dL 3.9 - 4.9 g/dL [facility] ALP [Catalytic activity/Vol] 80 U/L 34 - 123 U/L [facility] ALT [Catalytic activity/Vol] 17 U/L 7 - 38 U/L [facility] [place] Anion gap [Moles/Vol] 11 mmol/L 9 - 18 mmol/L [facility] AST [Catalytic activity/Vol] 22 U/L 13 - 35 U/L [facility] Bilirubin [Mass/Vol] 0.8 mg/dL 0.2 - 1 .3 mg/dL [facility] Calcium [Mass/Vol] 10.2 mg/dL 8.5 - 10. 2 mg/dL [facility] [place] Chloride [Moles/Vol] 104 mmol/L 97 - 10 5 mmol/L [facility] [place] CO2 [Moles/Vol] 20 mmol/L Low 22 - 30 mmol/L [facility] [place] Creatinine [Mass/Vol] 1.57 mg/dL High 0.58 - 0.96 mg/dL [facility] [place] GFR/1.73 sq M.predicted among non-blacks MDRD (S/P/Bld) [Vol rate/Area] 33 mL/min/{1.73_m2} Low - PINF [facility] [place] Comment on above: Estimated Glomerular Filtration Rate (eGFR) is calculated using the 2020 CKD-EPI creatinine equation. This equation utilizes serum creatinine, sex, and age as parameters. The creatinine assay has traceable calibration to isotope dilution-mass spectrometry. Refer to KDIGO guidelines for clinical interpretation. In patients with unstable renal function, e.g. those with acute kidney injury, the eGFR may not accurately reflect actual GFR. Glucose [Mass/Vol] 169 mg/dL High 74 - 99 mg/dL [facility] [place] Comment on above: The [place] [employer] (ADA) provides guidance for cutoff values for fasting glucose and random glucose. The ADA defines fasting as no caloric intake for at least 8 hours. Fasting plasma glucose results between 100 to 125 mg/dL indicate increased risk for diabetes (prediabetes). Fasting plasma glucose results greater than or equal to 126 mg/dL meet the criteria for diagnosis of diabetes. In the absence of unequivocal hyperglycemia, results should be confirmed by repeat testing. In a patient with classic symptoms of hyperglycemia or hyperglycemic crisis, random plasma glucose results greater than or equal to 200 mg/dL meet the criteria for diagnosis of diabetes. Reference: Standards of Medical Care in Diabetes 2016, [place] [employer]. Diabetes Care. 2016.39(Suppl 1). Potassium [Moles/Vol] 4.6 mmol/L 3.7 - 5.1 mmol/L [facility] Protein [Mass/Vol] 6.2 g/dL Low 6.3 - 8.0 g/dL [facility] [place] Sodium [Moles/Vol] 135 mmol/L Low 136 - 144 mmol/L [facility] [place] Urea nitrogen [Mass/Vol] 29 mg/dL High 7 - 21 mg/dL [facility] [place] NT PRO BNPon 02-18-2024 Natriuretic peptide.B prohormone N-Terminal [Mass/Vol] 2714 pg/mL High NINF - 450 pg/mL [facility] [place] No Panel Informationon 02-17 Interpretation and review of laboratory results Abnormal [facility] No Panel Informationon 02-10 BLANK _ [facility] Implant Date 07/01/2018 [facility] Model 5076 CapSureFix [facility] PACEMAKER REMOTE CHECKon AV Delay Adaptive Paced Minimum (ms) 180 ms [facility] AV Delay Adaptive Sensed Minimum (ms) 150 ms [facility] AV Delay Adaptive Status DISABLED [facility] Battery Voltage (volts) 2.96 V [facility] Darion RA Pacing Amplitude (volts) 1.75 V [facility] Darion RA Pacing Polarity BI [facility] Darion RA Pacing Pulse Width (ms) 0.4 ms [facility] Darion RA Sensing Amplitude (mvolts) 0.3 mV [facility] Darion RA Sensing Blanking Period (ms) 150 ms [facility] Darion RA Sensing Polarity BI [facility] Darion RA Sensing Refractory Period (ms) Auto [facility] Darion RV Pacing Amplitude (volts) 2 V [facility] Darion RV Pacing Polarity BI [facility] Darion RV Pacing Pulse Width (ms) 0.4 ms [facility] Darion RV Sensing Amplitude (mvolts) 0.9 mV [facility] Darion RV Sensing Blanking Period (ms) 200 ms [facility] Darion RV Sensing Polarity BI [facility] Hysteresis Rate (bpm) DISABLED [facility] Lead1 Lindseyg T [facility] Lead2 Greg WHITE [facility] Location RA [facility] Location RV [facility] Lower Rate (bpm) 55 {beats}/min [facility] Max Sensor Rate (bmp) 130 {beats}/min [facility] Model [id number] Sara XT DR YEUNG [facility] PM-Device Greg WHITE [facility] PM-Percent Pacing (A) 0.4 % [facility] PM-Percent Pacing (V) 73.57 % [facility] PM-PMT Intervention ENABLED [facility] PM-PVC Intervention ENABLED [facility] PM-Rate Modulation Acceleration Reaction 30 s [facility] PM-Rate Modulation ADL Rate (bpm) 90 {beats}/min [facility] PM-Rate Modulation Deceleration Exercise [facility] PM-Rate Modulation Mellette 3 [facility] PM-Rate Modulation Threshold Low [facility] RA Bipolar Impedance ohms 361 ohm [facility] RA Unipolar Impedance ohms 266 ohm [facility] RV Bipolar Impedance ohms 399 ohm [facility] RV Unipolar Impedance 304 ohm [facility] Serial Number [id number] [facility] Serial Number [id number] [facility] Serial Number [id number] [facility] Thresh RA Capture Amplitude (volts) 0.875 V [facility] Thresh RA Capture Duration (ms) 0.4 ms [facility] Thresh RA Sensing Amplitude (mvolts) 1.25 mV [facility] Thresh RV Capture Amplitude (volts) 1 V [facility] Thresh RV Capture Duration (ms) 0.4 ms [facility] Thresh RV Sensing Amplitude (mvolts) 5.25 mV [facility] Tracking Rate (bpm) 130 {beats}/min [facility] 02/11/2024 Formattin g of this note might be different from the original. DUAL LEAD PACEMAKERS REMOTE EVALUATION: Alert for AF, Recently had TAVR 02/09/24. Scheduled follow up AF remote for next week. BPaulinRN NOTE TO PROVIDERS: CARD Flowsheets contain detailed device programming and testing data. Paceart/Interrogation PDF can be found under CARDIAC DATA AND REPORT, Scanned Documents section. [facility] No Panel Informationon 02-08 BLANK _ [facility] Implant Date 07/01/2018 [facility] Model 5076 [employer] [facility] BLANK _ [facility] Implant Date 07/01/2018 [facility] Model 5076 [employer] [facility] PACEMAKER CLINIC CHECKon AV Delay Adaptive Paced Minimum (ms) 180 ms [facility] AV Delay Adaptive Sensed Minimum (ms) 150 ms [facility] AV Delay Adaptive Status DISABLED [facility] Battery Voltage (volts) 2.99 V [facility] Darion RA Pacing Amplitude (volts) 1.75 V [facility] Darion RA Pacing Polarity BI [facility] Darion RA Pacing Pulse Width (ms) 0.4 ms [facility] Darion RA Sensing Amplitude (mvolts) 0.3 mV [facility] Darion RA Sensing Blanking Period (ms) 150 ms [facility] Darion RA Sensing Polarity BI [facility] [facility] [place] Darion RA Sensing Refractory Period (ms) Auto [facility] [place] RV Pacing Amplitude (volts) 2 V [facility] [place] RV Pacing Polarity BI [facility] [place] RV Pacing Pulse Width (ms) 0.4 ms [facility] [place] Darion RV Sensing Amplitude (mvolts) 0.9 mV [facility] [place] Darion RV Sensing Blanking Period (ms) 200 ms [facility] [place] RV Sensing Polarity BI [facility] [place] Hysteresis Rate (bpm) DISABLED [facility] Lead1 Mfg MDT [facility] [place] Lead2 Mfg MDT [facility] [place] Location RA [facility] [place] Location RV [facility] [place] Lower Rate (bpm) 55 {beats}/min [facility] Max Sensor Rate (bmp) 130 {beats}/min [facility] [place] Model [id number] [place] XT DR LAURA [facility] Pacemaker Dependent? NO [facility] PM-Device Mfg MDT [facility] [place] PM-Percent Pacing (A) 93.69 % [facility] PM-Percent Pacing (V) 4.68 % [facility] PM-PMT Intervention E[facility]BLED [facility] PM-PVC Intervention E[facility]BLED [facility] PM-Rate Modulation Acceleration Reaction 30 s [facility] [place] PM-Rate Modulation ADL Rate (bpm) 90 {beats}/min [facility] [place] PM-Rate Modulation Deceleration Exercise [facility] [place] PM-Rate Modulation Mellette 3 [facility] [place] PM-Rate Modulation Threshold Low [facility] [place] RA Bipolar Impedance ohms 399 ohm [facility] [place] RA Unipolar Impedance ohms 285 ohm [facility] [place] Rhythm AT with controlled ventricular rates [facility] [place] RV Bipolar Impedance ohms 418 ohm [facility] [place] RV Unipolar Impedance 323 ohm [facility] Serial Number [id number] [facility] [place] Serial Number [id number] [facility] [place] Serial Number [id number] [facility] [place] Thresh RA Capture Amplitude (volts) 0.875 V [facility] [place] Thresh RA Capture Duration (ms) 0.4 ms [facility] [place] Thresh RA Sensing Amplitude (mvolts) 1.25 mV [facility] [place] Thresh RV Capture Amplitude (volts) 0.875 V [facility] [place] Thresh RV Capture Duration (ms) 0.4 ms [facility] [place] Thresh RV Sensing Amplitude (mvolts) 5.625 mV [facility] [place] Tracking Rate (bpm) 130 {beats}/min [facility] [place] 02/09/2024 Formattin g of this note might be different from the original. DUAL LEAD PACEMAKER EVALUATION: LOCATION: [id number] PROGRAMMING CHANGES MADE TODAY: Programmed Rate Response back ON. Programmed the RV output based on today's capture testing results. BATTERY STATUS: Normal and shows no significant depletion. 8 years remaining until TORI. UNDERLYING RHYTHM: AT with controlled ventricular rates. AT began at 11:41 am. Total time 6.3%. Patient on Eliquis per Epic. The bedside nurse made aware. COUNTERS SINCE: 02/09/24 VENTRICULAR ARRHYTHMIAS: None LEAD MEASUREMENTS: RV capture, sensing, and lead impedance tested WNL today. FOLLOW UP: Remotes every 13 weeks and yearly in clinic visits. Xiao Martinez RN NOTE TO PROVIDERS: CARD Flowsheets contain detailed device programming and testing data. Paceart/Interrogation PDF can be found under CARDIAC DATA AND REPORT, Scanned Documents section. [facility] AV Delay Adaptive Paced Minimum (ms) 180 ms [facility] [place] AV Delay Adaptive Sensed Minimum (ms) 150 ms [facility] [place] AV Delay Adaptive Status DISABLED [facility] [place] Battery Voltage (volts) 2.99 V [facility] [place] Darion RA Pacing Amplitude (volts) 1.75 V [facility] [place] Darion RA Pacing Polarity BI [facility] [place] RA Pacing Pulse Width (ms) 0.4 ms [facility] [place] Darion RA Sensing Amplitude (mvolts) 0.3 mV [facility] [place] Darion RA Sensing Blanking Period (ms) 150 ms [facility] [place] Darion RA Sensing Polarity BI [facility] [place] Darion RA Sensing Refractory Period (ms) Auto [facility] [place] RV Pacing Amplitude (volts) 2.25 V [facility] [place] Darion RV Pacing Polarity BI [facility] [place] RV Pacing Pulse Width (ms) 0.4 ms [facility] [place] RV Sensing Amplitude (mvolts) 0.9 mV [facility] [place] Darion RV Sensing Blanking Period (ms) 200 ms [facility] [place] RV Sensing Polarity BI [facility] [place] Hysteresis Rate (bpm) DISABLED [facility] Lead1 Mfg MDT [facility] [place] Lead2 Mfg MDT [facility] [place] Location RA [facility] [place] Location RV [facility] [place] Lower Rate (bpm) 55 {beats}/min [facility] Max Sensor Rate (bmp) 130 {beats}/min [facility] [place] Model [id number] [place] XT DR YEUNG [facility]? [facility] PM-Device Mfg MDT [facility] [place] PM-Percent Pacing (A) 93.87 % [facility] PM-Percent Pacing (V) 4.57 % [facility] PM-PMT Intervention ENABLED [facility] PM-PVC Intervention E[facility]BLED [facility] PM-Rate Modulation Acceleration Reaction 30 s [facility] [place] PM-Rate Modulation ADL Rate (bpm) 90 {beats}/min [facility] [place] PM-Rate Modulation Deceleration Exercise [facility] [place] PM-Rate Modulation Mellette 3 [facility] [place] PM-Rate Modulation Threshold Low [facility] [place] RA Bipolar Impedance ohms 380 ohm [facility] [place] RA Unipolar Impedance ohms 323 ohm [facility] [place] Rhythm SB 47 bpm. [facility] [place] RV Bipolar Impedance ohms 418 ohm [facility] [place] RV Unipolar Impedance 323 ohm [facility] Serial Number [id number] [facility] [place] Serial Number [id number] [facility] [place] Serial Number [id number] [facility] [place] Thresh RA Capture Amplitude (volts) 0.875 V [facility] [place] Thresh RA Capture Duration (ms) 0.4 ms [facility] [place] Thresh RA Sensing Amplitude (mvolts) 3.5 mV [facility] [place] Thresh RV Capture Amplitude (volts) 0.875 V [facility] [place] Thresh RV Capture Duration (ms) 0.4 ms [facility] [place] Thresh RV Sensing Amplitude (mvolts) 5.875 mV [facility] [place] Tracking Rate (bpm) 130 {beats}/min [facility] [place] 02/09/2024 Formattin g of this note might be different from the original. DUAL LEAD PACEMAKER EVALUATION: LOCATION: OR 81 PROGRAMMING CHANGES MADE TODAY: Programmed device from AAIR-DDDR 55 to AAI-DDD 55. BATTERY STATUS: Normal and shows no significant depletion. UNDERLYING RHYTHM: SB 47 bpm. COUNTERS SINCE: 01/14/24 ATRIAL ARRHYTHMIAS: None VENTRICULAR ARRHYTHMIAS: None LEAD MEASUREMENTS: Sensing and Lead impedance was WNL today. FOLLOW UP: Please call [phone] following the procedure to have the device programmed back to AAIR-DDDR 55. Xiao Martinez RN NOTE TO PROVIDERS: CARD Flowsheets contain detailed device programming and testing data. Paceart/Interrogation PDF can be found under CARDIAC DATA AND REPORT, Scanned Documents section. [facility] CNOVon 01-20-2024 [facility] LYNETTE ANGULO [phone] F Date Time Provider Department 01/20/24 12:00 PM MARIO MOSCOSO [facility] During your visit today, we recorded the following information about you: Pulse Blood pressure Weight 71/minute 135/58 88 kg Mario Moscoso APRN.CNP 01/20/2024 12:26 PM Addendum Continue current medications as prescribed. You may take additional 5 mg kerendia (1/2 tablet) for three days. START this today, tomorrow and . Call office on Friday to report if no improvement symptoms. 2. Weigh yourself daily. Call me if your weight increases by 3-4 pounds in a 1-4 day period of time. 3. Continue low salt (2000 mg per day) diet. 4. Be as active as you are able. If you get tired, just stop and rest for a while. 5. Wishes to wait to schedule follow up appt. If you have any question or concern, you can call me at [phone]. Mario Moscoso APRN.CNP 01/20/2024 12:39 PM Signed [facility] OUTPATIENT VISIT DATE January 20, 2024 OUTPATIENT VISIT TYPE ESTABLISHED PRIMARY CARE PHYSICIAN: Jorge Benavides MD CHIEF COMPLAINT: Patient presents with: Leg Edema Breathing Problem HISTORY OF PRESENT ILLNESS: Lynette Angulo is a 84 year old female who presents today for a follow-up visit in the Heart Failure Clinic. Patient has had 2 hospitalizations and/or emergency room encounters in the last 12 months. Most recent hospitalization was from 01/29 to 02/04 for hypertensive emergency. She reported dysuria during stay. UA/UC came back positive for E. coli. Bactrim was started prior to discharge and to be continued for 3 days total. Patient also underwent a device check for bradycardia and feelings of fatigue. Device check completed / with increase base rate to 55 bpm. Today, the patient reports feeling very short of breath. She is being worked up for TAVR. Shortness of breath is thought to be mostly related to aortic valve. Reports increase in weight due to lack of mobility as she has chronic knee pain. Has not been contacted about a schedule or procedure. Patient expresses stress with not knowing what to expect. Denies chest pain, dizziness, lightheadedness, fever, chills. Reports leg swelling. Trouble sleeping at night at times due to mind racing. Denies PND or orthopnea. Did trial coming off amlodipine at the beginning of the year which did reduce swelling significantly however, blood pressure started to increase. States she was told to hold her eliquis prior to cath in November. She says she was not told when to restart. She reports that she has been taking only 5 mg once a day. Tries to monitor her sodium and fluids as best as she can. Weighs a few times week. IMPRESSION: NYHA Functional Class: II Stage: C heart failure Cora Angulo is an 84 year-old female who presents to the [facility] Failure Clinic for follow up. She appears minimally hypervolemic on examination. will have her take additional 5 mg kerendia for 3 days. She is to call the office on Friday if no improvement in weight or symptoms. Will reach out to cardiology downtown regarding eliquis dose and restart along with plan of care regarding TAVR. Continue to monitor sodium and fluids. Reviewed all medications with patient. Reviewed plan of care with patient. All questions answered at this time. PLAN AND RECOMMENDATIONS: 1. Heart failure, unspecified HF chronicity, unspecified heart failure type (HCC) - ICD9: 428.9, ICD10: I50.9 - daily weights, call office if weight increases 3-4 lbs in a 1-4 day period -2 gm low sodium diet -activity as tolerated, rest breaks as needed -continue coreg, olmesartan, kerendia -? Start SGLT2i -wishes to hold off -continue amlodipine -follow up to be scheduled pending upcoming surgery 2. Primary hypertension - ICD9: 401.9, ICD10: I10 (primary diagnosis) -BP suboptimal during visit 135/58 mmHg -encourage DASH/low sodium diet -encourage exercise with rest breaks as needed -goal BP <130/80 mmHg -continue home BP monitoring 3. Paroxysmal atrial fibrillation (HCC) - ICD9: 427.31, ICD10: I48.0 -CHADSVASc 6 (age, DM, HTN, HF, gender) -continue coreg for rate control -HR 53 bpm during office visit -unable to tolerate metoprolol -continue eliquis for stroke prophylaxis Follow up appointment with Dr. Shetty 04/13/2024 PAST MEDICAL HISTORY Diagnosis Date Anemia Aortic stenosis Atrial fibrillation (HCC) Atrial flutter (HCC) Bradycardia Cancer (HCC) thyroid Chronic kidney disease Diabetes (HCC) Gout Heart attack (HCC) HLD (hyperlipidemia) Hypertension Pericardial effusion Recurrent UTI Sleep apnea CPAP SSS (sick sinus syndrome) (HCC) Thyroid disease PAST SURGICAL HISTORY Procedure Laterality Date APPENDECTOMY HX CATARACT SURGERY, COMPLEX HYSTERECTOMY HX PPM DUAL 2017 (more content not included)... [facility] No Panel Informationon 01-15 BLANK _ [facility] [place] Implant Date 07/01/2018 [facility] [place] Model 5076 [employer]SureFix Nov[employer] [facility] PACEMAKER REMOTE CHECKon AV Delay Adaptive Paced Minimum (ms) 180 ms [facility] [place] AV Delay Adaptive Sensed Minimum (ms) 150 ms [facility] [place] AV Delay Adaptive Status DISABLED [facility] [place] Battery Voltage (volts) 2.99 V [facility] [place] Dar[place] RA Pacing Amplitude (volts) 2.25 V [facility] [place] Dar[place] RA Pacing Polarity BI [facility] [place] Dar[place] RA Pacing Pulse Width (ms) 0.4 ms [facility] [place] Darion RA Sensing Amplitude (mvolts) 0.3 mV [facility] [place] Darion RA Sensing Blanking Period (ms) 150 ms [facility] [place] Dar[place] RA Sensing Polarity BI [facility] [place] Dar[place] RA Sensing Refractory Period (ms) Auto [facility] [place] RV Pacing Amplitude (volts) 2.25 V [facility] [place] Dar[place] RV Pacing Polarity BI [facility] [place] RV Pacing Pulse Width (ms) 0.4 ms [facility] [place] RV Sensing Amplitude (mvolts) 0.9 mV [facility] [place] Dar[place] RV Sensing Blanking Period (ms) 200 ms [facility] [place] RV Sensing Polarity BI [facility] [place] Hysteresis Rate (bpm) DISABLED [facility] Lead1 Greg GERBERT [facility] [place] Lead2 Greg GERBERT [facility] [place] Location RA [facility] [place] Location RV [facility] [place] Lower Rate (bpm) 55 {beats}/min [facility] Max Sensor Rate (bmp) 130 {beats}/min [facility] [place] Model [id number] [place] XT DR LAURA [facility] PM-Device Mfg MDT [facility] [place] PM-Percent Pacing (A) 88.76 % [facility] PM-Percent Pacing (V) 8.37 % [facility] PM-PMT Intervention E[facility]BLED [facility] PM-PVC Intervention ENABLED [facility] PM-Rate Modulation Acceleration Reaction 30 s [facility] [place] PM-Rate Modulation ADL Rate (bpm) 90 {beats}/min [facility] [place] PM-Rate Modulation Deceleration Exercise [facility] [place] PM-Rate Modulation Mellette 3 [facility] [place] PM-Rate Modulation Threshold Low [facility] [place] RA Bipolar Impedance ohms 418 ohm [facility] [place] RA Unipolar Impedance ohms 285 ohm [facility] [place] RV Bipolar Impedance ohms 361 ohm [facility] [place] RV Unipolar Impedance 285 ohm [facility] Serial Number [id number] [facility] [place] Serial Number [id number] [facility] [place] Serial Number [id number] [facility] [place] Thresh RA Capture Amplitude (volts) 1.125 V [facility] [place] Thresh RA Capture Duration (ms) 0.4 ms [facility] [place] Thresh RA Sensing Amplitude (mvolts) 2.375 mV [facility] [place] Thresh RV Capture Amplitude (volts) 1 V [facility] [place] Thresh RV Capture Duration (ms) 0.4 ms [facility] [place] Thresh RV Sensing Amplitude (mvolts) 5.5 mV [facility] [place] Tracking Rate (bpm) 130 {beats}/min [facility] [place] Absolute lymphocyte countOrd ered By: Ruben Brar on 11-21-2023 Lymphocytes Auto (Unsp spec) [#/Vol] 1.68 10*3/uL 0.83-4.[address] [facility] Automated lymphocyte count a s percentage of total leukocytesOrdered By: Ruben Brar on 11-21-2023 Lymphocytes/100 WBC Auto (Unsp spec) 19.5 % 19-[address] [facility] Basophil percentageOrdered B y: Ruben Brar on 11-21-2023 Basophil percentage 5-10 SEEN /hpf 0-5 W [facility] Basophils/100 WBC (Bld) 0.2 % 0-[address] [facility] Bilirubin [Mass/Vol] 1.40 mg/dL 0.20-1.00 [facility] Comment on above: For patients on eltr ombopag therapy, use of Dimension [place] TBIL is not recommended. Chloride [Moles/Vol] 103 mmol/L 98-107 [facility] Eosinophils/100 WBC (Bld) 1.4 % 0-[address] [facility] Glucose [Mass/Vol] 198 mg/dL 74-106 [facility] Comment on above: Fasting Glucose resu lt greater than or equal to 126 mg/dL suggests DIABETES MELLITUS per A.D.A. criteria. Hemoglobin (Bld) [Mass/Vol] 13.3 g/dL 12.0-15.[address] [facility] Monocytes/100 WBC (Bld) 8.4 % 0-[address] [facility] Neutrophils (Bld) [#/Vol] 6.0 10*3/uL 2.0-7.[address] [facility] Neutrophils/100 WBC (Bld) 69.3 % 47-[address] [facility] Potassium [Moles/Vol] 4.7 mmol/L 3.5-5.1 [facility] Comment on above: Slight Hemolysis, Re sult may be falsely increased. Protein [Mass/Vol] 7.0 g/dL 6.4-8.2 [facility] Sodium [Moles/Vol] 134 mmol/L 136-145 [facility] WBC (Bld) [#/Vol] 8.6 10*3/uL 4.4-11.0 [facility] Bilirubin Test strip Ql (U)O rdered By: Ruben Brar on 11-21-2023 Bilirubin Ql (U) Negative Negative [facility] Determination of erythrocyte mean corpuscular volume (MCV)Ordered By: Ruben Brar on 11-21-2023 MCV (RBC) [Entitic vol] 95.8 fL 81-[address] [facility] Erythrocyte distribution wid th ratioOrdered By: Ruben Brar on 11-21-2023 Erythrocyte distribution width (RBC) [Ratio] 13.2 % 11.6-14.[address] [facility] Erythrocyte distribution wid th standard deviationOrdered By: Ruben Brar on 11-21-2023 Erythrocyte distribution width (RBC) [Entitic vol] 46.4 fL 35.1-43.[address] [facility] Hematocrit Auto (Bld) [Volum e fraction]Ordered By: Ruben Brar on 11-21-2023 Hematocrit (Bld) [Volume fraction] 41.3 % 37-[address] [facility] Immature granulocytes/100 WB C Auto (Bld)Ordered By: Ruben Brar on 11-21-2023 Immature granulocytes/100 WBC (Bld) 1.200 % 0.0-0.[address] [facility] Comment on above: IG% - Immature Granu locytes (promyelocytes, myelocytes and metamyelocytes) > 1% indicates that a LEFT SHIFT is Present. Ketones Test strip Ql (U)Ord ered By: Ruben Brar on 11-21-2023 Ketones Ql (U) Negative Negative [facility] Laboratory - Chemistry and C hemistry - challengeOrdered By: Ruben Brar on 11-21-2023 Albumin/Globulin [Mass ratio] 1.1 {ratio} 0.9-2.[address] [facility] ALP [Catalytic activity/Vol] 98 U/L 45-[address] [facility] ALT [Catalytic activity/Vol] 19 U/L 13-[address] [facility] CO2 [Moles/Vol] 27.0 mmol/L 21.0-32.[address] [facility] Globulin (S) [Mass/Vol] 3.4 g/dL 2.2-4.[address] [facility] Natriuretic peptide B (Bld) [Mass/Vol] 55.1 pg/mL 0-[address] [facility] Urea nitrogen/Creatinine [Mass ratio] 33.5 mg/mg 10-[address] [facility] Laboratory - Hematology and Cell countsOrdered By: Ruben Brar on 11-21-2023 MCH (RBC) [Entitic mass] 30.9 pg 27.0-32.[address] [facility] MCHC (RBC) [Mass/Vol] 32.2 g/dL 32-36 [facility] Nucleated RBC/100 WBC (Bld) [Ratio] 0 % 0-[address] [facility] Platelet mean volume (Bld) [Entitic vol] 9.6 fL 6.2-12.[address] [facility] Platelets (Bld) [#/Vol] 188 10*3/uL 150-[address] [facility] Laboratory - Microbiology an d Antimicrobial susceptibilityOrdered By: Ruben Brar on 11-21-2023 SARS-CoV-2 (COVID-19) RNA ALEXANDRE+probe Ql (Unsp spec) [facility] Mucus LM Ql (Urine sed)Order ed By: Ruben Brar on 11-21-2023 Mucus Ql (Urine sed) 0 SEEN /hpf [facility] Nitrite Test strip Ql (U)Ord ered By: Ruben Brar on 11-21-2023 Nitrite Ql (U) Negative Negative [facility] No Panel InformationOrdered By: Ruben Brar on 11-21-2023 Estimated Creatinine Clearance Calc 27.12 ml/min [facility] Estimated GFR (MDRD) Amer 39 mL/min >[address] [facility] Comment on above: GFR Calc Estimated GFR (MDRD) Non-Af Amer 32 mL/min >[address] [facility] Comment on above: Non- GFR Calc Troponin I High Sensitivity 31 pg/mL 3.0-54.[address] [facility] Comment on above: Please Note: New Jose t Units and Gender Specific Reference Ranges. For more information see Policy Stat Procedure [place] High Sensitivity Troponin (TNIH) and attachments. Urine RBC 0 SEEN /hpf 0-[address] [facility] Protein Test strip Ql (U)Ord ered By: Ruben Brar on 11-21-2023 Protein Ql (U) 30 mg/dl Negative [facility] RBC Auto (Bld) [#/Vol]Ordere d By: Ruben Brar on 11-21-2023 RBC (Bld) [#/Vol] 4.31 10*6/uL 4.2-5.4 [facility] Serum or plasma calcium rema urement (mass/volume)Ordered By: Ruben Brar on 11-21-2023 Calcium [Mass/Vol] 9.7 mg/dL 8.5-10.1 [facility] Serum or plasma creatinine m easurement (mass/volume)Ordered By: Ruben Brar on 11-21-2023 Creatinine [Mass/Vol] 1.64 mg/dL 0.55-1.02 [facility] Comment on above: The validity of the calculated GFR & GFRAA in patients over 70 years has not been determined. Clinical correlation is essential. Serum or plasma urea nitroge n measurement (mass/volume)Ordered By: Ruben Brar on 11-21-2023 Urea nitrogen [Mass/Vol] 55 mg/dL 7-[address] [facility] Squamous epithelial cells de tection in urine sediment by light microscopyOrdered By: Ruben Brar on 11-21-2023 Epithelial cells.squamous LM Ql (Urine sed) 0-5 SEEN /hpf 5-[address] [facility] Thin prep Papanicolaou smear with manual screeningOrdered By: Ruben Brar on 11-21-2023 Thin prep Papanicolaou smear with manual screening 3.6 g/dL 3.2-5.[address] [facility] Thin prep Papanicolaou smear with manual screening 20 U/L 15-[address] [facility] Comment on above: Slight Hemolysis, Re sult may be falsely increased. Thin prep Papanicolaou smear with manual screening 4 5-[address] [facility] Urine blood detectionOrdered By: Ruben Brar on 11-21-2023 RBC Ql (U) Negative Negative [facility] Urine clarityOrdered By: Tori Brar on 11-21-2023 Clarity (U) Sl. Cloudy Clear [facility] Urine color determinationOrd ered By: Ruben Brar on 11-21-2023 Color (U) Yellow Yellow [facility] Urine glucose detectionOrder ed By: Ruben Brar on 11-21-2023 Glucose Ql (U) Normal mg/dl Normal [facility] Urine leukocyte esterase det ection by dipstickOrdered By: Ruben Brar on 11-21-2023 Leukocyte esterase Test strip Ql (U) 100 /ul Negative [facility] Urine pHOrdered By: Ruben hobbs on 11-21-2023 pH (U) 5.0 [pH] 5.0 - 8.[address] [facility] Urine sediment bacteria coun t by microscopy (number/high power field)Ordered By: Ruben Brar on 11-21-2023 Bacteria LM.HPF (Urine sed) [#/Area] 1 /[HPF] None Seen [facility] Urine specific gravity measu rementOrdered By: Ruben Brar on 11-21-2023 Specific gravity (U) [Rel density] 1.020 1.002-1.[address] [facility] Urine urobilinogen measureme ntOrdered By: Ruben Brar on 11-21-2023 Urobilinogen Ql (U) Normal mg/dl Normal [facility] No Panel Informationon 11-19 BLANK _ [facility] Implant Date 07/01/2018 [facility] Model [id number] CapSureFix Novus [facility] PACEMAKER REMOTE CHECKon AV Delay Adaptive Paced Minimum (ms) 180 ms [facility] AV Delay Adaptive Sensed Minimum (ms) 150 ms [facility] AV Delay Adaptive Status DISABLED [facility] Battery Voltage (volts) 2.99 V [facility] Darion RA Pacing Amplitude (volts) 2.25 V [facility] Darion RA Pacing Polarity BI [facility] Darion RA Pacing Pulse Width (ms) 0.4 ms [facility] Darion RA Sensing Amplitude (mvolts) 0.3 mV [facility] Darion RA Sensing Blanking Period (ms) 150 ms [facility] Darion RA Sensing Polarity BI [facility] Darion RA Sensing Refractory Period (ms) Auto [facility] Darion RV Pacing Amplitude (volts) 2 V [facility] Darion RV Pacing Polarity BI [facility] Darion RV Pacing Pulse Width (ms) 0.4 ms [facility] Darion RV Sensing Amplitude (mvolts) 0.9 mV [facility] Darion RV Sensing Blanking Period (ms) 200 ms [facility] Darion RV Sensing Polarity BI [facility] Hysteresis Rate (bpm) DISABLED [facility] Lead1 Mfg MDT [facility] Lead2 Mfg MDT [facility] Location RA [facility] Location RV [facility] Lower Rate (bpm) 55 {beats}/min [facility] Max Sensor Rate (bmp) 130 {beats}/min [facility] Model [id number] Sara XT DR MRI Cl [facility] PM-Device Mfg MDT [facility] PM-Percent Pacing (A) 89 % [facility] PM-Percent Pacing (V) 10.53 % [facility] PM-PMT Intervention ENABLED [facility] PM-PVC Intervention ENABLED [facility] PM-Rate Modulation Acceleration Reaction 30 s [facility] PM-Rate Modulation ADL Rate (bpm) 90 {beats}/min [facility] PM-Rate Modulation Deceleration Exercise [facility] PM-Rate Modulation Mellette 3 [facility] PM-Rate Modulation Threshold Low [facility] RA Bipolar Impedance ohms 399 ohm [facility] RA Unipolar Impedance ohms 266 ohm [facility] RV Bipolar Impedance ohms 399 ohm [facility] RV Unipolar Impedance 304 ohm [facility] Serial Number [id number] [facility] Serial Number [id number] [facility] Serial Number [id number] [facility] Thresh RA Capture Amplitude (volts) 1 V [facility] Thresh RA Capture Duration (ms) 0.4 ms [facility] Thresh RA Sensing Amplitude (mvolts) 2.25 mV [facility] Thresh RV Capture Amplitude (volts) 1 V [facility] Thresh RV Capture Duration (ms) 0.4 ms [facility] Thresh RV Sensing Amplitude (mvolts) 7.625 mV [facility] Tracking Rate (bpm) 130 {beats}/min [facility] LYNETTE ANGULO ([phone]) 1940 F Date Time Provider Department 11/12/23 MARIO MOSCOSO [facility] During your visit today, we recorded the following information about you: Mario Moscoso APRN.[facility] 11/12/2023 10:14 AM Signed Patient called last Friday to report high blood pressures with readings in 180's systolic. Denies symptoms. Instructed the patient to decrease olmesartan to 40 mg once a day and restart her amlodipine at 10 mg. Discussed adding hydralazine however, patient has multiple drug allergies and does not wish to start something new at this time. Will restart amlodipine at 10 mg once a day as she was on this in the past. Instructed her to continue to monitor her blood pressure 3-4 hours after morning medications. Called patient this morning to review readings. Blood pressures are in the 130's systolic. Patient feels well. Will have her continue with amlodipine for now. She is to monitor for leg swelling and increase in weight. Discussed starting hydralazine in the future and discontinuing amlodipine if leg swelling persists. Reviewed plan of care with patient. All questions answered at this time. Instructed the patient to call office with any questions or concerns at any time. Mario Moscoso APRN.[facility] Allergies As of Date: 11/12/2023 Noted Allergy Reaction DARVON (PROPOXYPHENE HCL) 02/21/2012 12 - Shortness of Breath 14 - Other: See Comments Comments: No strength, bad dreams IODINE 11/28/2014 10 - Anaphylaxis LOTENSIN (BENAZEPRIL HCL) 02/21/2012 11 - Vomiting 14 - Other: See Comments Comments: Coughing RIVAROXABAN 03/29/2022 14 - Other: See Comments Comments: Developed pericardial effusion SHELLFISH 11/28/2014 10 - Anaphylaxis SHELLFISH CONTAINING PRODUCTS 01/27/2019 10 - Anaphylaxis 12 - Shortness of Breath SPIRONOLACTONE 02/21/2012 14 - Other: See Comments Comments: Weak, made calcium level high, heart rate 20BPM ADHESIVE 02/21/2012 2 - Rash AMLODIPINE 02/22/2020 7 - Swelling CELECOXIB 05/18/2019 14 - Other: See Comments Comments: Due to kidneys DEMERAL (MEPERIDINE) 02/21/2012 11 - Vomiting HYDROCHLOROTHIAZIDE 08/23/2020 14 - Other: See Comments METFORMIN 08/23/2020 14 - Other: See Comments METOPROLOL 08/25/2020 12 - Shortness of Breath PENICILLINS 02/21/2012 4 - Hives SIMVASTATIN 08/23/2020 17 - Myalgia 14 - Other: See Comments SITAGLIPTIN 08/23/2020 14 - Other: See Comments Date Reviewed: 10/07/2023 Reviewed by: Mario Moscoso APRN.REFINERY PIPELINE OPERATOR - Fully Assessed Reason for Visit: Patient Update [1234] Prescriptions as of 11/12/2023 - amLODIPine (NORVASC) 10 mg tablet Take 1 tablet by mouth once daily. - olmesartan (BENICAR) 40 mg tablet Take 1.5 tablets by mouth once daily. - apixaban (ELIQUIS) 5 mg tab(s) Take 1 tablet by mouth twice daily. - finerenone (KERENDIA) 10 mg tablet q 24 HR. - dexAMETHasone (DECADRON) 1 mg tablet TAKE 1 TABLET BY MOUTH AT 11PM THE NIGHT BEFORE CORTISOL TEST. - omega 0-ddf-zmq-fish oil 360 mg-108 mg- 180 mg-1,200 mg cap q 24 HR. - glimepiride (AMARYL) 2 mg tablet Take 0.5 tablets by mouth daily with breakfast. - aspirin 81 mg chewable tablet Take 1 tablet by mouth once daily. - doxazosin (CARDURA) 4 mg tablet Take 1 tablet by mouth daily at bedtime. - carvedilol (COREG) 25 mg tablet Take 1 tablet by mouth twice daily with meals. - vibegron (GEMTESA) 75 mg tablet Take 1 tablet by mouth once daily. - Cranberry 500 mg cap Take 1 capsule by mouth once daily. - Ascorbic Acid 500 mg cpER Take by mouth once daily. - cinnamon bark (CINNAMON ORAL) Take by mouth. Take 2,00mg daily. - lovastatin (MEVACOR) 20 mg tablet Take 20 mg by mouth daily at bedtime. - cholecalciferol (VITAMIN D3) 5,000 unit tab Take 5,000 Units by mouth once daily. - pantoprazole DR (PROTONIX) 40 mg tablet TAKE 1 TABLET BY MOUTH ONCE DAILY AT 6 AM - levothyroxine (SYNTHROID) 125 mcg tablet Take 125 mcg by mouth once daily. - MITIGARE 0.6 mg capsule every 48 hours. - latanoprost (XALATAN) 0.005 % ophthalmic solution Use 1 Drop in both eyes daily at bedtime. Facility-Administered Medications as of 11/12/2023 - perflutren lipid microspheres 1.3 mL in NaCl (PF) 0.9% 10 mL injection (DEFINITY) - sodium chloride 0.9 % (flush) 10 mL (BD POSIFLUSH) Meds Comments as of 02/05/2023: 02/05/23 The medications are managed by this patient by: PATIENT Chandni Starr [facility] Problem List As Of Date 11/12/2023 Noted Resolved Pericardial effusion [I31.39] 08/23/2020 09/01/2020 POLY (acute kidney injury) (HCC) [N17.9] 08/24/2020 09/01/2020 Hyponatremia [E87.1] 08/24/2020 Paroxysmal atrial fibrillation (HCC) [I48.0] 08/24/2020 Acute liver disease [K76.9] 08/24/2020 09/01/2020 Controlled type 2 diabetes mellitus without com*08/24/2020 SSS (sick sinus syndrome) (HCC) [I49.5] 08/24/2020 Typhoid fever [A01.00] 08/25/2020 Acute idiopathic pe (more content not included)... Normal [facility] CNOVon 11-04-2023 [facility] Office Visit ([facility] ) LYNETTE ANGULO ([id number]) 1940 F Date Time Provider Department 11/04/23 12:00 PM MARIO MOSCOSO [facility] During your visit today, we recorded the following information about you: Pulse Blood pressure Weight 55/minute 179/62 87 kg Mario Moscoso APRN.REFINERY PIPELINE OPERATOR 11/04/2023 12:05 PM Addendum Continue current medications as prescribed. Check blood pressure when you get home. If reading is above 150/60 mmHg, take additional 20 mg (1/2 tablet) Benicar. Monitor blood pressures the next few days 3-4 hours after you take morning medication. Call office on Friday to review. 2. Weigh yourself daily. Call me if your weight increases by 3-4 pounds in a 1-4 day period of time. 3. Continue low salt (2000 mg per day) diet. 4. Be as active as you are able. If you get tired, just stop and rest for a while. 5. Come back and see me on FridayJanuary 19 at 1200. If you have any question or concern, you can call me at [phone]. Mario Moscoso APRN.REFINERY PIPELINE OPERATOR 11/04/2023 12:22 PM Signed [facility] OUTPATIENT VISIT DATE November 04, 2023 OUTPATIENT VISIT TYPE ESTABLISHED PRIMARY CARE PHYSICIAN: Jorge Benavides MD CHIEF COMPLAINT: Patient presents with: Breathing Problem HISTORY OF PRESENT ILLNESS: Lynette Angulo is a 83 year old female who presents today for a follow-up visit in the Heart Failure Clinic. The patient was last seen in office 10/07. The following changes were made at that time: stop amlodipine and take additional 20 mg olmesartan. The patient has had 2 hospital admissions in the past 12 months. The last admission was from 01/29 to 02/04 for management of hypertensive urgency. She was admitted prior to this for pericarditis which required a pericardiocentesis. She She was started on coreg, aspirin, amlodipine Today, the patient reports feeling well. Shortness of breath especially when climbing stairs. Denies chest pain, fever, chills, dizziness, lightheadedness. Minimal leg swelling since stopping amlodipine. Reports left knee pain in which she recently had gel injections. This causes her the most discomfort and limits mobility. Does not weigh herself every day. Maybe once a week. Tries to monitor her sodium and fluid intake. Has appt with Cardiology at [facility] regarding post pericarditis. IMPRESSION: NYHA Functional Class: II Stage: C heart failure Cora Angulo is an 83 year-old female who presents to the Heart Failure Clinic to establish care. She appears euvolemic on examination. No changes to medications at this time. Discussed starting SGLT2i. Wishes to wait at this time due to her knee pain. She will discuss with [facility] as well. Encouraged exercise as tolerated along with monitoring weight, blood pressure, sodium and fluids. As blood pressure is high,she is to take her blood pressure when she gest home from appt. If reading is above 150/60 mmHg, she is to take 20 mg benicar. Instructed her to monitor blood pressure 3-4 hours after morning medications and call office on Friday to review. Suggested blood pressure is high due to knee pain. She is scheduled for repeat echo in January. Will see in December or sooner if needed. Reviewed plan of care with patient. All questions answered at this time. PLAN AND RECOMMENDATIONS: 1. Heart failure, unspecified HF chronicity, unspecified heart failure type (HCC) - ICD9: 428.9, ICD10: I50.9 - daily weights, call office if weight increases 3-4 lbs in a 1-4 day period -2 gm low sodium diet -activity as tolerated, rest breaks as needed -continue coreg, olmesartan -? Start SGLT2i -wishes to hold off -stop amlodipine -follow up in December 2. Primary hypertension - ICD9: 401.9, ICD10: I10 (primary diagnosis) -BP suboptimal during visit 179/62 mmHg -encourage DASH/low sodium diet -encourage exercise with rest breaks as needed -goal BP <130/80 mmHg -continue home BP monitoring 3. Paroxysmal atrial fibrillation (HCC) - ICD9: 427.31, ICD10: I48.0 -CHADSVASc -continue coreg for rate control -HR 53 bpm during office visit -unable to tolerate metoprolol -continue eliquis for stroke prophylaxis Follow up appointment with Dr. Shetty 04/03/2024 PAST MEDICAL HISTORY Diagnosis Date Atrial fibrillation (HCC) Atrial flutter (HCC) Bradycardia Cancer (HCC) thyroid Chronic kidney disease Diabetes (HCC) Dyslipidemia Gout Heart attack (HCC) Hypercholesteremia Hypertension Pericardial effusion Recurrent UTI Sleep apnea Thyroid disease PAST SURGICAL HISTORY Procedure Laterality Date APPENDECTOMY HX CATARACT SURGERY, COMPLEX HYSTERECTOMY HX PPM DUAL 2018 THYROIDECTOMY TOTAL/COMPLETE Parathyroid removal TOTAL KNEE REPLACEMENT Left x2- one revision Social History Tobacco Use Smoking status: Never Smokeless tobacco: Never Vaping Use Vaping Us (more content not included)... Normal [facility] Basophil percentageOrdered B y: Jorge Benavides on 10-21-2023 Cholesterol [Mass/Vol] 144 mg/dL <200 [facility] Comment on above: <200 mg/dL Desirable 200-240 mg/dL Borderline >240 mg/dL High Risk Triglyceride [Mass/Vol] 56 mg/dL <[address] [facility] Comment on above: The drugs N-Acetylcy steine and Metamizole may falsely depress this assay.Serum Triglycerides Reference Interval Normal <150 mg/dL Borderline high 150 - 199 mg/dL High 200 - 499 mg/dL Very High > or = 500 mg/dL High density lipoprotein (HD L) measurementOrdered By: Jorge Benavides on 10-21-2023 Cholesterol in HDL (Body fld) [Mass/Vol] 66 mg/dL >[address] [facility] Comment on above: The drugs N-Acetylcy steine and Metamizole may falsely depress this assay. Reference Range HDL <40 mg/dL Low HDL Cholesterol HDL >or= 60 mg/dL High HDL Cholesterol Low density lipoprotein (LDL ) cholesterol measurementOrdered By: Jorge Benavides on 10-21-2023 Cholesterol in LDL (Body fld) [Moles/Vol] 67 mg/dL 0-[address] [facility] Serum or plasma thyroid stim ulating hormone (TSH) measurement (units/volume)Ordered By: Jorge Benavides on 10-21-2023 TSH Qn 1.94 uIU/mL 0.358-3.[address] [facility] Very low density lipoprotein (VLDL) cholesterol measurementOrdered By: Jorge Benavides on 10-21-2023 Cholesterol in VLDL Calc [Moles/Vol] 11 mg/dL 5-[address] [facility] Whole blood hemoglobin A1c/t otal hemoglobin ratio (mass fraction)Ordered By: Jorge Benavides on 10-21-2023 HbA1c (Bld) [Mass fraction] 6.1 % 3.8-5.[address] [facility] Comment on above: Normal < 5.7 % Predi abetic 5.7 - 6.4 % Diabetic >or= 6.5 % Please note range changes. David [facility] LYNETTE ANGULO ([phone]) 1940 F Date Time Provider Department 10/16/23 MARIO MOSCOSO [facility] During your visit today, we recorded the following information about you: Mario Moscoso APRN.REFINERY PIPELINE OPERATOR 10/16/2023 11:40 AM Signed Patient called to report blood pressures after stopping amlodipine last week. Spoke to pt on 10/10 and discussed stopping this due to frequent leg swelling and leg heaviness. She has been taking additional 20 mg olmesartan as discussed to maintain optimal blood pressure. Readings are as follows the past 4 days. 10/13: 136/85 mmHg weight 197 lbs 10/14: 114/74 mmHg 10/15: 122/76 mmHg weight 194.1 lbs 10/16: 134/80 mmHg weight 191/2 lbs Advised patient to continue current medication regimen. Will order BMP prior to next appt with this WINDER FIXER on 11/04 to assess kidney function. Reviewed plan of care with patient. All questions answered at this time. Mario Moscoso APRN.[facility] Allergies As of Date: 10/16/2023 Noted Allergy Reaction DARVON (PROPOXYPHENE HCL) 02/21/2012 12 - Shortness of Breath 14 - Other: See Comments Comments: No strength, bad dreams IODINE 11/28/2014 10 - Anaphylaxis LOTENSIN (BENAZEPRIL HCL) 02/21/2012 11 - Vomiting 14 - Other: See Comments Comments: Coughing RIVAROXABAN 03/29/2022 14 - Other: See Comments Comments: Developed pericardial effusion SHELLFISH 11/28/2014 10 - Anaphylaxis SHELLFISH CONTAINING PRODUCTS 01/27/2019 10 - Anaphylaxis 12 - Shortness of Breath SPIRONOLACTONE 02/21/2012 14 - Other: See Comments Comments: Weak, made calcium level high, heart rate 20BPM ADHESIVE 02/21/2012 2 - Rash AMLODIPINE 02/22/2020 7 - Swelling CELECOXIB 05/18/2019 14 - Other: See Comments Comments: Due to kidneys DEMERAL (MEPERIDINE) 02/21/2012 11 - Vomiting HYDROCHLOROTHIAZIDE 08/23/2020 14 - Other: See Comments METFORMIN 08/23/2020 14 - Other: See Comments METOPROLOL 08/25/2020 12 - Shortness of Breath PENICILLINS 02/21/2012 4 - Hives SIMVASTATIN 08/23/2020 17 - Myalgia 14 - Other: See Comments SITAGLIPTIN 08/23/2020 14 - Other: See Comments Date Reviewed: 10/07/2023 Reviewed by: Mario Moscoso APRN.REFINERY PIPELINE OPERATOR - Fully Assessed Reason for Visit: Patient Update [1234] Prescriptions as of 10/16/2023 - apixaban (ELIQUIS) 5 mg tab(s) Take 1 tablet by mouth twice daily. - finerenone (KERENDIA) 10 mg tablet q 24 HR. - dexAMETHasone (DECADRON) 1 mg tablet TAKE 1 TABLET BY MOUTH AT 11PM THE NIGHT BEFORE CORTISOL TEST. - omega 9-gzw-evu-fish oil 360 mg-108 mg- 180 mg-1,200 mg cap q 24 HR. - glimepiride (AMARYL) 2 mg tablet Take 0.5 tablets by mouth daily with breakfast. - aspirin 81 mg chewable tablet Take 1 tablet by mouth once daily. - doxazosin (CARDURA) 4 mg tablet Take 1 tablet by mouth daily at bedtime. - amLODIPine (NORVASC) 10 mg tablet Take 1 tablet by mouth once daily. - carvedilol (COREG) 25 mg tablet Take 1 tablet by mouth twice daily with meals. - vibegron (GEMTESA) 75 mg tablet Take 1 tablet by mouth once daily. - olmesartan (BENICAR) 40 mg tablet Take 1 tablet by mouth once daily. - Cranberry 500 mg cap Take 1 capsule by mouth once daily. - Ascorbic Acid 500 mg cpER Take by mouth once daily. - cinnamon bark (CINNAMON ORAL) Take by mouth. Take 2,00mg daily. - lovastatin (MEVACOR) 20 mg tablet Take 20 mg by mouth daily at bedtime. - cholecalciferol (VITAMIN D3) 5,000 unit tab Take 5,000 Units by mouth once daily. - pantoprazole DR (PROTONIX) 40 mg tablet TAKE 1 TABLET BY MOUTH ONCE DAILY AT 6 AM - levothyroxine (SYNTHROID) 125 mcg tablet Take 125 mcg by mouth once daily. - MITIGARE 0.6 mg capsule every 48 hours. - latanoprost (XALATAN) 0.005 % ophthalmic solution Use 1 Drop in both eyes daily at bedtime. Facility-Administered Medications as of 10/16/2023 - perflutren lipid microspheres 1.3 mL in NaCl (PF) 0.9% 10 mL injection (DEFINITY) - sodium chloride 0.9 % (flush) 10 mL (BD POSIFLUSH) Meds Comments as of 02/05/2023: 02/05/23 The medications are managed by this patient by: PATIENT Chandni Starr [facility] Problem List As Of Date 10/16/2023 Noted Resolved Pericardial effusion [I31.39] 08/23/2020 09/01/2020 POLY (acute kidney injury) (HCC) [N17.9] 08/24/2020 09/01/2020 Hyponatremia [E87.1] 08/24/2020 Paroxysmal atrial fibrillation (HCC) [I48.0] 08/24/2020 Acute liver disease [K76.9] 08/24/2020 09/01/2020 Controlled type 2 diabetes mellitus without com*08/24/2020 SSS (sick sinus syndrome) (HCC) [I49.5] 08/24/2020 Typhoid fever [A01.00] 08/25/2020 Acute idiopathic pericarditis [I30.0] 09/05/2020 Chronic pericarditis [I31.9] 05/30/2022 Primary hypertension [I10] 05/30/2022 Obesity, Class II, BMI 35-39.9 [E66.9] 11/27/2022 Nonrheumatic aortic valve stenosis [I35.0] 01/29/2023 Stenosis of left renal artery (HCC) [I70.1] 01/29/2023 Heart failure, unspecified HF chronicity, unspe*01/29/2023 Stage (more content not included)... Normal [facility] 10-10-2023 [facility] Telephone ([facility]) LYNETTE ANGULO ([id number]) 1940 F Date Time Provider Department 10/10/23 MARIO MOSCOSO [facility] During your visit today, we recorded the following information about you: Mario Moscoso APRN.CNP 10/10/2023 12:39 PM Signed Reviewed results with patient from lab work drawn. Kidney function near baseline for patient. Will have her stop amlodipine. She is to take additional 20 mg olmesartan to assist with optimizing BP. Instructed patient to monitor blood pressure 3-4 hours after medications. Reviewed red flags with patient. Will see in 2 weeks. All questions answered at this time. Mario Moscoso APRN.CNP Allergies As of Date: 10/10/2023 Noted Allergy Reaction DARVON (PROPOXYPHENE HCL) 02/21/2012 12 - Shortness of Breath 14 - Other: See Comments Comments: No strength, bad dreams IODINE 11/28/2014 10 - Anaphylaxis LOTENSIN (BENAZEPRIL HCL) 02/21/2012 11 - Vomiting 14 - Other: See Comments Comments: Coughing RIVAROXABAN 03/29/2022 14 - Other: See Comments Comments: Developed pericardial effusion SHELLFISH 11/28/2014 10 - Anaphylaxis SHELLFISH CONTAINING PRODUCTS 01/27/2019 10 - Anaphylaxis 12 - Shortness of Breath SPIRONOLACTONE 02/21/2012 14 - Other: See Comments Comments: Weak, made calcium level high, heart rate 20BPM ADHESIVE 02/21/2012 2 - Rash AMLODIPINE 02/22/2020 7 - Swelling CELECOXIB 05/18/2019 14 - Other: See Comments Comments: Due to kidneys DEMERAL (MEPERIDINE) 02/21/2012 11 - Vomiting HYDROCHLOROTHIAZIDE 08/23/2020 14 - Other: See Comments METFORMIN 08/23/2020 14 - Other: See Comments METOPROLOL 08/25/2020 12 - Shortness of Breath PENICILLINS 02/21/2012 4 - Hives SIMVASTATIN 08/23/2020 17 - Myalgia 14 - Other: See Comments SITAGLIPTIN 08/23/2020 14 - Other: See Comments Date Reviewed: 10/07/2023 Reviewed by: Mario Moscoso APRN.REFINERY PIPELINE OPERATOR - Fully Assessed Reason for Visit: Results [95] Prescriptions as of 10/10/2023 - apixaban (ELIQUIS) 5 mg tab(s) Take 1 tablet by mouth twice daily. - finerenone (KERENDIA) 10 mg tablet q 24 HR. - dexAMETHasone (DECADRON) 1 mg tablet TAKE 1 TABLET BY MOUTH AT 11PM THE NIGHT BEFORE CORTISOL TEST. - omega 7-qln-jwp-fish oil 360 mg-108 mg- 180 mg-1,200 mg cap q 24 HR. - glimepiride (AMARYL) 2 mg tablet Take 0.5 tablets by mouth daily with breakfast. - aspirin 81 mg chewable tablet Take 1 tablet by mouth once daily. - doxazosin (CARDURA) 4 mg tablet Take 1 tablet by mouth daily at bedtime. - amLODIPine (NORVASC) 10 mg tablet Take 1 tablet by mouth once daily. - carvedilol (COREG) 25 mg tablet Take 1 tablet by mouth twice daily with meals. - vibegron (GEMTESA) 75 mg tablet Take 1 tablet by mouth once daily. - olmesartan (BENICAR) 40 mg tablet Take 1 tablet by mouth once daily. - Cranberry 500 mg cap Take 1 capsule by mouth once daily. - Ascorbic Acid 500 mg cpER Take by mouth once daily. - cinnamon bark (CINNAMON ORAL) Take by mouth. Take 2,00mg daily. - lovastatin (MEVACOR) 20 mg tablet Take 20 mg by mouth daily at bedtime. - cholecalciferol (VITAMIN D3) 5,000 unit tab Take 5,000 Units by mouth once daily. - pantoprazole DR (PROTONIX) 40 mg tablet TAKE 1 TABLET BY MOUTH ONCE DAILY AT 6 AM - levothyroxine (SYNTHROID) 125 mcg tablet Take 125 mcg by mouth once daily. - MITIGARE 0.6 mg capsule every 48 hours. - latanoprost (XALATAN) 0.005 % ophthalmic solution Use 1 Drop in both eyes daily at bedtime. Facility-Administered Medications as of 10/10/2023 - perflutren lipid microspheres 1.3 mL in NaCl (PF) 0.9% 10 mL injection (DEFINITY) - sodium chloride 0.9 % (flush) 10 mL (BD POSIFLUSH) Meds Comments as of 02/05/2023: 02/05/23 The medications are managed by this patient by: PATIENT Chandni Starr [facility] Problem List As Of Date 10/10/2023 Noted Resolved Pericardial effusion [I31.39] 08/23/2020 09/01/2020 POLY (acute kidney injury) (HCC) [N17.9] 08/24/2020 09/01/2020 Hyponatremia [E87.1] 08/24/2020 Paroxysmal atrial fibrillation (HCC) [I48.0] 08/24/2020 Acute liver disease [K76.9] 08/24/2020 09/01/2020 Controlled type 2 diabetes mellitus without com*08/24/2020 SSS (sick sinus syndrome) ([facility]) [I49.5] 08/24/2020 Typhoid fever [A01.00] 08/25/2020 Acute idiopathic pericarditis [I30.0] 09/05/2020 Chronic pericarditis [I31.9] 05/30/2022 Primary hypertension [I10] 05/30/2022 Obesity, Class II, BMI 35-39.9 [E66.9] 11/27/2022 Nonrheumatic aortic valve stenosis [I35.0] 01/29/2023 Stenosis of left renal artery (HCC) [I70.1] 01/29/2023 Heart failure, unspecified HF chronicity, unspe*01/29/2023 Stage 4 chronic kidney disease (HCC) [N18.4] 01/30/2023 Cardiac pacemaker [Z95.0] 09/15/2023 History of pericarditis [Z86.79] 09/15/2023 half-way current use of anticoagulant [Z79.01] 09/15/2023 Encounter Status:Closed by MARIO MOSCOSO on 10/10/23 Normal [facility] Basic metabolic 2000 panelon 10-07-2023 Anion gap [Moles/Vol] 9 mmol/L Normal 06-16 [facility] Comment on above: Order Comment: Speci men Type: BLOOD SPECIMENOrdering Facility: [facility] Address: [address] [place] [address] Performed By: #### 2 4321-2 ####[facility] LABORATORYCLIA [id number] [place] [address] [place] Calcium [Mass/Vol] 10.8 mg/dL High 8.5-10.2 [facility] Comment on above: Order Comment: Speci men Type: BLOOD SPECIMENOrdering Facility: [facility] Address: [address] [place] [address] Performed By: #### 2 4321-2 ####[facility] LABORATORYCLIA [id number] [place] [address] [place] Chloride [Moles/Vol] 105 mmol/L Normal 97-105 [facility] Comment on above: Order Comment: Speci men Type: BLOOD SPECIMENOrdering Facility: [facility] Address: [address] [place] [address] Performed By: #### 2 4321-2 ####[facility]CH[facility] LABORATORYCLIA [id number] [place] [address] [place] CO2 [Moles/Vol] 26 mmol/L Normal 22-30 [facility] Comment on above: Order Comment: Speci men Type: BLOOD SPECIMENOrdering Facility: [facility] Address: [address] [place] [address] Performed By: #### 2 4321-2 ####[facility] LABORATORYCLIA [id number] [place] [address] [place] Creatinine [Mass/Vol] 1.48 mg/dL High 0.58-0.96 [facility] Comment on above: Order Comment: Nikolai de luna Type: BLOOD SPECIMENOrdering Facility: [facility] Address: [address] [place] [address] Performed By: #### 2 4321-2 ####[facility] LABORATORYCLIA [id number] [place] [address] [place] Creatinine and Glomerular filtration rate.predicted panel (S/P/Bld) 35 mL/min/1.73m??? Low >=60 [facility] Comment on above: Order Comment: Nikolai calixto Type: BLOOD SPECIMENOrdering Facility: [facility] Address: [address] [place] [address] Result Comment: Raina mated Glomerular Filtration Rate (eGFR) is calculated using the 2020 CKD-EPI creatinine equation. This equation utilizes serum creatinine, sex, and age as parameters. The creatinine assay has traceable calibration to isotope dilution-mass spectrometry. Refer to KDIGO guidelines for clinical interpretation. In patients with unstable renal function, e.g. those with acute kidney injury, the eGFR may not accurately reflect actual GFR. Performed By: #### 2 4321-2 ####[facility] LABORATORYCLIA [id number] [place] [address] [place] Glucose [Mass/Vol] 122 mg/dL High 74-99 [facility] Comment on above: Order Comment: Nikolai de luna Type: BLOOD SPECIMENOrdering Facility: [facility] Address: [address] [place] [address] Result Comment: The [place] Diabetes [employer] (ADA) provides guidance for cutoff values for fasting glucose and random glucose. The ADA defines fasting as no caloric intake for at least 8 hours. Fasting plasma glucose results between 100 to 125 mg/dL indicate increased risk for diabetes (prediabetes). Fasting plasma glucose results greater than or equal to 126 mg/dL meet the criteria for diagnosis of diabetes. In the absence of unequivocal hyperglycemia, results should be confirmed by repeat testing. In a patient with classic symptoms of hyperglycemia or hyperglycemic crisis, random plasma glucose results greater than or equal to 200 mg/dL meet the criteria for diagnosis of diabetes. Reference: Standards of Medical Care in Diabetes 2016, [place] [employer]. Diabetes Care. 2016.39(Suppl 1). Performed By: #### 2 4321-2 ####[facility] LABORATORYCLIA [id number] [address] Potassium [Moles/Vol] 5.0 mmol/L Normal 3.7-5.1 [facility] Comment on above: Order Comment: Speci men Type: BLOOD SPECIMENOrdering Facility: [facility] Address: [address] [place] [address] Performed By: #### 2 4321-2 ####[facility] LABORATORYCLIA [id number] [address] Sodium [Moles/Vol] 140 mmol/L Normal 136-144 [facility] Comment on above: Order Comment: Speci men Type: BLOOD SPECIMENOrdering Facility: [facility] Address: [address] [place] [address] Performed By: #### 2 4321-2 ####[facility] LABORATORYCLIA [id number] [address] Urea nitrogen [Mass/Vol] 42 mg/dL High 7-21 [facility] Comment on above: Order Comment: Speci men Type: BLOOD SPECIMENOrdering Facility: [facility] Address: [address] [place] [address] Performed By: #### 2 4321-2 ####SY[facility] LABORATORYCLIA [id number] [address] OF [facility] CNOVon 10-07-2023 [facility] LYNETTE ANGULO ([id number]) 1940 F Date Time Provider Department 10/07/23 12:00 PM MARIO MOSCOSO [facility] During your visit today, we recorded the following information about you: Pulse Blood pressure Weight 53/minute 146/68 88 kg Mario Moscoso APRN.REFINERY PIPELINE OPERATOR 10/07/2023 1:25 PM Signed [facility] [place] [facility] OUTPATIENT VISIT DATE October 07, 2023 OUTPATIENT VISIT TYPE NEW PRIMARY CARE PHYSICIAN: Jorge Benavides MD REFERRING PHYSICIAN: No referring provider defined for this encounter. CHIEF COMPLAINT: Patient presents with: Breathing Problem Leg Edema HISTORY OF PRESENT ILLNESS: Lynette Angulo is a 83 year old female who presents today for an initial visit to the Heart Failure Clinic. The patient is established with Dr. Shetty and was last seen in office 09/15. No changes made to medications. Referred to HF Clinic. Past medical history is significant for diastolic heart failure, moderate to severe aortic valve stenosis, hypertension, hyperlipidemia, sick sinus syndrome post pacemaker, pericarditis. The patient has had 2 hospital admissions in the past 12 months. The last admission was from 01/29 to 02/04 for management of hypertensive urgency. She was admitted prior to this for pericarditis which required a pericardiocentesis. She She was started on coreg, aspirin, amlodipine. Today, the patient reports feeling okay. Reports leg swelling, shortness of breath. Denies chest pain, fever, chills, dizziness, lightheadedness. States she is unable to vacuum due to shortness of breath and back pain. She does see Pain Management for knee pain. She is unsure of what her dry weight is. Tries to follow a low sodium. Reads nutrition labels but not following strict mg at this time. Follow with Nephrology Dr. Nice in [place]. Will see her again in 6 months. Has issues sleeping at night due to frequent urination. [place] around however, she often stops because she feels short of breath. Lives at home with spouse. Does most of the cooking and does not add salt. Uses bipap every night. IMPRESSION: NYHA Functional Class: II Stage: C heart failure Cora Angulo is an 83 year-old female who presents to the Heart Failure Clinic to establish care. She appears hypervolemic on examination. Legs are swollen although mostly dependent. Possibly due to amlodipine. Would like to decrease amlodipine or discontinue to see if this improves leg swelling. However, due to hypertension, would need to find replacement. Suggest starting hydralazine. Will obtain BMP first to evaluate kidney function. Furthermore, discussed with patient adding SGLT2i and the benefits of this medication. Encouraged low sodium diet along with monitoring fluid intake. Will follow labs and call patient to review once resulted. Reviewed plan of care with patient. All questions answered at this time. PLAN AND RECOMMENDATIONS: ASSESSMENT/PLAN: 1. Heart failure, unspecified HF chronicity, unspecified heart failure type (HCC) - ICD9: 428.9, ICD10: I50.9 - daily weights, call office if weight increases 3-4 lbs in a 1-4 day period -2 gm low sodium diet -activity as tolerated, rest breaks as needed -continue coreg, olmesartan, amlodipine -? Start SGLT2i -BMP -follow up in 2 weeks 2. Primary hypertension - ICD9: 401.9, ICD10: I10 (primary diagnosis) -BP suboptimal during visit 146/68 mmHg -encourage DASH/low sodium diet -encourage exercise with rest breaks as needed -goal BP <130/80 mmHg -continue home BP monitoring 3. Paroxysmal atrial fibrillation (HCC) - ICD9: 427.31, ICD10: I48.0 -CHADSVASc -continue coreg for rate control -HR 53 bpm during office visit -unable to tolerate metoprolol -continue eliquis for stroke prophylaxis Follow up appointment with Dr. Shetty 04/03/2024 PAST MEDICAL HISTORY Diagnosis Date Atrial fibrillation (HCC) Atrial flutter (HCC) Bradycardia Cancer (HCC) thyroid Chronic kidney disease Diabetes (HCC) Dyslipidemia Gout Heart attack (HCC) Hypercholesteremia Hypertension Pericardial effusion Recurrent UTI Sleep apnea Thyroid disease PAST SURGICAL HISTORY Procedure Laterality Date APPENDECTOMY HX CATARACT SURGERY, COMPLEX HYSTERECTOMY HX PPM DUAL 2018 THYROIDECTOMY TOTAL/COMPLETE Parathyroid removal TOTAL KNEE REPLACEMENT Left x2- one revision Social History Tobacco Use Smoking status: Never Smokeless tobacco: Never Vaping Use Vaping Use: Never used Substance Use Topics Alcohol use: No Drug use: Never FAMILY HISTORY Problem Relation Age of Onset Hypertension Father other (Vascular) Son Hypertension Son ALLERGIES Allergen Reactions Darvon [Propoxyphen* Shortness of Breath, Other: See Comments No strength, bad dreams Iodine Anaphylaxis Lotensin [Sathya (more content not included)... Normal [facility] 09-15-2023 [facility] Office Visit ([facility] ) LYNETTE ANGULO ([id number]) 1940 F Date Time Provider Department 09/15/23 10:40 AM SANDY SHETTY During your visit today, we recorded the following information about you: Pulse Blood pressure Weight Height 58/minute 130/80 90 kg 1.575 m Sandy Shetty, 09/15/2023 1:12 PM Signed [facility] CARDIOLOGY [facility] OUTPATIENT VISIT DATE September 15, 2023 PRIMARY CARE PHYSICIAN: Jorge Benavides [id number] [phone] HISTORY OF PRESENT ILLNESS: Ms. Angulo is a 83 year old female. The patient presents to establish care due to history of multiple cardiac comorbidities including aortic stenosis, chronic diastolic heart failure, paroxysmal atrial fibrillation, sick sinus syndrome status post perm pacemaker and previous pericarditis. Despite such the patient is doing well. She has recovered from pericarditis and has been placed back on oral anticoagulation as her pericarditis caused a bloody pericardial effusion. She has dyspnea occurring on exertion abating with rest which may be multifactorial. She denies chest discomfort, orthopnea, paroxysmal nocturnal dyspnea, palpitations, near-syncope or syncope. The patient is remarried and lives at home with her spouse of 5 years. She is a non-smoker, nondrinker. She tries to eat reasonably heart healthy meals. She does not exercise on a regular basis but receives physical therapy twice a week due to knee pain as result of previous intervention on her left knee. Cardiac risk factors: Age, gender, hypertension, hyperlipidemia Impression: 1. Moderate to severe aortic valve stenosis by recent echocardiography 2. Dyspnea on exertion 3. Chronic diastolic heart failure 4. History of paroxysmal atrial fibrillation 5. Hypertension 6. Hyperlipidemia 7. History of pericarditis 8. Sick sinus syndrome status post perm pacemaker 9. Long-term anticoagulation with Eliquis PLAN AND RECOMMENDATIONS: The patient will need her echocardiogram updated in the summer with follow-up thereafter. It appears as though her pericarditis is thankfully resolved and she remains back on oral anticoagulation without difficulty. Recent device interrogation demonstrates normal functioning with no elevated heart rate episodes to suggest paroxysms of atrial fibrillation. The patient has dyspnea which may be multifactorial but may be a result of diastolic heart failure. We will have her evaluated through the local heart failure clinic. Heart rate, blood pressure and recent cholesterol profile are otherwise favorable. We have therefore made no additions or changes at this time. Dietary and lifestyle education was reemphasized to facilitate risk factor reduction and heart failure prevention. Will look forward to reevaluate her in 6 months time regardless. Vitals: BP 130/80 Pulse (!) 58 Ht 157.5 cm (5' 2) Wt 90 kg (198 lb 6.6 oz) SpO2 98% BMI 36.29 kg/m? Physical Exam Vitals reviewed. Constitutional: General: She is not in acute distress. Appearance: Normal appearance. She is well-developed. HENT: Head: Normocephalic and atraumatic. Nose: Nose normal. Eyes: General: No scleral icterus. Right eye: No discharge. Left eye: No discharge. Pupils: Pupils are equal, round, and reactive to light. Neck: Thyroid: No thyromegaly. Vascular: No carotid bruit or JVD. Cardiovascular: Rate and Rhythm: Normal rate and regular rhythm. Heart sounds: Murmur heard. Crescendo decrescendo systolic murmur is present with a grade of 2/6. No friction rub. No gallop. Pulmonary: Effort: Pulmonary effort is normal. No respiratory distress. Breath sounds: Normal breath sounds. No wheezing or rales. Abdominal: General: Bowel sounds are normal. Palpations: Abdomen is soft. Musculoskeletal: General: Normal range of motion. Cervical back: Normal range of motion and neck supple. Skin: General: Skin is warm and dry. Capillary Refill: Capillary refill takes less than 2 seconds. Coloration: Skin is not pale. Neurological: Mental Status: She is alert and oriented to person, place, and time. Cranial Nerves: No cranial nerve deficit. Psychiatric: Behavior: Behavior normal. Thought Content: Thought content normal. Judgment: Judgment normal. Review of Systems Constitutional: Negative for activity change and fatigue. HENT: Negative for ear pain and facial swelling. Eyes: Negative for pain and discharge. Respiratory: Positive for shortness of breath. Negative for chest tightness. Cardiovascular: Negative for chest pain, palpitations and leg swelling. Gastrointestinal: Negative for abdominal pain, blood in stool, nausea and vomiting. Endocrine: Negative for cold intolerance and heat intolerance. Genitourinar (more content not included)... Normal [facility] No Panel Informationon 08-18 BLANK _ [facility] Implant Date 07/01/2018 [facility] Model 5076 CapSureFix [facility] PACEMAKER REMOTE CHECKon AV Delay Adaptive Paced Minimum (ms) 180 ms [facility] AV Delay Adaptive Sensed Minimum (ms) 150 ms [facility] AV Delay Adaptive Status DISABLED [facility] Battery Voltage (volts) 2.99 V [facility] Darion RA Pacing Amplitude (volts) 2.25 V [facility] Darion RA Pacing Polarity BI [facility] Darion RA Pacing Pulse Width (ms) 0.4 ms [facility] Darion RA Sensing Amplitude (mvolts) 0.3 mV [facility] Darion RA Sensing Blanking Period (ms) 150 ms [facility] Darion RA Sensing Polarity BI [facility] Darion RA Sensing Refractory Period (ms) Auto [facility] Darion RV Pacing Amplitude (volts) 2 V [facility] Darion RV Pacing Polarity BI [facility] Darion RV Pacing Pulse Width (ms) 0.4 ms [facility] Darion RV Sensing Amplitude (mvolts) 0.9 mV [facility] Darion RV Sensing Blanking Period (ms) 200 ms [facility] Darion RV Sensing Polarity BI [facility] Hysteresis Rate (bpm) DISABLED [facility] Lead1 Mfg MDT [facility] Lead2 Mfg MDT [facility] Location RA [facility] Location RV [facility] Lower Rate (bpm) 55 {beats}/min [facility] Max Sensor Rate (bmp) 130 {beats}/min [facility] Model [id number] Sara XT DR MRI [facility] PM-Device Mfg MDT [facility] PM-Percent Pacing (A) 99.9 % [facility] PM-Percent Pacing (V) 0.37 % [facility] PM-PMT Intervention [facility] PM-PVC Intervention [facility] PM-Rate Modulation Acceleration Reaction 30 s [facility] [facility] [place] PM-Rate Modulation ADL Rate (bpm) 90 {beats}/min [facility] [place] PM-Rate Modulation Deceleration Exercise [facility] [place] PM-Rate Modulation Mellette 3 [facility] [place] PM-Rate Modulation Threshold Low [facility] [place] RA Bipolar Impedance ohms 380 ohm [facility] [place] RA Unipolar Impedance ohms 266 ohm [facility] [place] RV Bipolar Impedance ohms 361 ohm [facility] [place] RV Unipolar Impedance 285 ohm [facility] Serial Number [id number] [facility] [place] Serial Number [id number] [facility] [place] Serial Number [id number] [facility] [place] Thresh RA Capture Amplitude (volts) 1.125 V [facility] [place] Thresh RA Capture Duration (ms) 0.4 ms [facility] [place] Thresh RA Sensing Amplitude (mvolts) 2.75 mV [facility] [place] Thresh RV Capture Amplitude (volts) 0.875 V [facility] [place] Thresh RV Capture Duration (ms) 0.4 ms [facility] [place] Thresh RV Sensing Amplitude (mvolts) 5.875 mV [facility] [place] Tracking Rate (bpm) 130 {beats}/min [facility] [place] Basophil percentageOrdered B y: Ros Nice on 08-14-2023 Basophil percentage 2.9 mg/dL 2.5-4.9 [facility] Chloride [Moles/Vol] 112 mmol/L 98-107 [facility] Glucose [Mass/Vol] 182 mg/dL 74-106 [facility] Comment on above: Fasting Glucose resu lt greater than or equal to 126 mg/dL suggests DIABETES MELLITUS per A.D.A. criteria. Potassium [Moles/Vol] 4.5 mmol/L 3.5-5.1 [facility] Sodium [Moles/Vol] 142 mmol/L 136-145 [facility] Laboratory - Chemistry and C hemistry - challengeOrdered By: Ros Nice on 08-14-2023 CO2 [Moles/Vol] 25.0 mmol/L 21.0-32.[address] [facility] Urea nitrogen/Creatinine [Mass ratio] 28.7 mg/mg 10-[address] [facility] No Panel InformationOrdered By: Ros Nice on 08-14-2023 Estimated GFR (MDRD) Amer 45 mL/min >[address] [facility] Comment on above: GFR Calc Estimated GFR (MDRD) Non-Af Amer 37 mL/min >[address] [facility] Comment on above: Non- GFR Calc Parathyroid Hormone (Intact) 119.5 pg/mL 18.4-80.[address] [facility] Serum or plasma albumin rema urement (mass/volume)Ordered By: Ros Nice on 08-14-2023 Albumin [Mass/Vol] 3.8 g/dL 3.2-5.0 [facility] Serum or plasma calcium rema urement (mass/volume)Ordered By: Ros Nice on 08-14-2023 Calcium [Mass/Vol] 9.5 mg/dL 8.5-10.1 [facility] Serum or plasma creatinine m easurement (mass/volume)Ordered By: Ros Nice on 08-14-2023 Creatinine [Mass/Vol] 1.43 mg/dL 0.55-1.02 [facility] Comment on above: The validity of the calculated GFR & GFRAA in patients over 70 years has not been determined. Clinical correlation is essential. Serum or plasma urea nitroge n measurement (mass/volume)Ordered By: Ros Nice on 08-14-2023 Urea nitrogen [Mass/Vol] 41 mg/dL 7-[address] [facility] Urine creatinine measurement (mass/volume)Ordered By: Ros Nice on 08-14-2023 Creatinine (U) [Mass/Vol] 66.90 mg/dL NO RANGE EST. [facility] Urine protein measurement (m ass/volume)Ordered By: Ros Nice on 08-14-2023 Protein (U) [Mass/Vol] 22.0 mg/dL 0.0-11.8 [facility] Urine protein/creatinine mas s ratioOrdered By: Ros Nice on 08-14-2023 Protein/Creatinine (U) [Mass ratio] 329 mg/g CRE 0-[address] [facility] Absolute lymphocyte countOrd ered By: Keith Rodrigez on 07-30-2023 Lymphocytes Auto (Unsp spec) [#/Vol] 1.47 10*3/uL 0.83-4.[address] [facility] Basophil percentageOrdered B y: Keith Rodrigez on 07-30-2023 Basophils/100 WBC (Bld) 0.5 % 0-[address] [facility] Eosinophils/100 WBC (Bld) 1.8 % 0-[address] [facility] Neutrophils (Bld) [#/Vol] 4.5 10*3/uL 2.0-7.[address] [facility] Neutrophils/100 WBC (Bld) 67.7 % 47-[address] [facility] WBC (Bld) [#/Vol] 6.6 10*3/uL 4.4-11.0 [facility] Blood erythrocytes count (nu mber/volume)Ordered By: Keith Rodrigez on 07-30-2023 RBC (Bld) [#/Vol] 3.81 10*6/uL 4.2-5.4 [facility] Blood hemoglobin measurement (mass/volume)Ordered By: Keith Rodrigez on 07-30-2023 Hemoglobin (Bld) [Mass/Vol] 11.8 g/dL 12.0-15.[address] [facility] Blood lymphocytes/100 leukoc ytesOrdered By: Keith Rodrigez on 07-30-2023 Lymphocytes/100 WBC (Bld) 22.1 % 19-[address] [facility] Blood monocytes/100 leukocyt esOrdered By: Keith Rodrigez on 07-30-2023 Monocytes/100 WBC (Bld) 7.4 % 0-[address] [facility] Blood platelet mean volumeOr dered By: Keith Rodrigez on 07-30-2023 Platelet mean volume (Bld) [Entitic vol] 9.7 fL 6.2-12.[address] [facility] Determination of erythrocyte mean corpuscular volume (MCV)Ordered By: Keith Rodrigez on 07-30-2023 MCV (RBC) [Entitic vol] 100.3 fL 81-[address] [facility] Erythrocyte sedimentation ra teOrdered By: Keith Rodrigez on 07-30-2023 ESR (Bld) [Velocity] 6 mm/h 0-30 [facility] Hematocrit Auto (Bld) [Volum e fraction]Ordered By: Keith Rodrigez on 07-30-2023 Hematocrit (Bld) [Volume fraction] 38.2 % 37-[address] [facility] Laboratory - Hematology and Cell countsOrdered By: Keith Rodrigez on 07-30-2023 Erythrocyte distribution width (RBC) [Entitic vol] 49.9 fL 35.1-43.[address] [facility] Erythrocyte distribution width (RBC) [Ratio] 13.4 % 11.6-14.[address] [facility] Immature granulocytes/100 WBC (Bld) 0.500 % 0.0-0.[address] [facility] Comment on above: IG% - Immature Granu locytes (promyelocytes, myelocytes and metamyelocytes) > 1% indicates that a LEFT SHIFT is Present. MCH (RBC) [Entitic mass] 31.0 pg 27.0-32.[address] [facility] Nucleated RBC/100 WBC (Bld) [Ratio] 0 % 0-[address] [facility] MCHC Auto (RBC) [Mass/Vol]Or dered By: Keith Rodrigez on 07-30-2023 MCHC (RBC) [Mass/Vol] 30.9 g/dL 32-36 [facility] Platelets bldOrdered By: Delgado Rodrigez on 07-30-2023 Platelets (Bld) [#/Vol] 244 10*3/uL 150-[address] [facility] Serum or plasma C reactive p rotein measurement (mass/volume)Ordered By: Keith Rodrigez on 07-30-2023 CRP [Mass/Vol] mg/L 0.0-3.[address] [facility] Comment on above: C-Reactive Protein ( CRP) provides useful information for thediagnosis, therapy and monitoring of inflammatory processesand associated diseases. For the evaluation of Relative Riskfor Cardiovascular Disease, a High Sensitivity CRP (HSCRP)should be ordered. No Panel Informationon 07-25 BLANK _ [facility] [place] Implant Date 07/01/2018 [facility] [place] Model 5076 [employer] [facility] PACEMAKER REMOTE CHECKon AV Delay Adaptive Paced Minimum (ms) 180 ms [facility] [place] AV Delay Adaptive Sensed Minimum (ms) 150 ms [facility] [place] AV Delay Adaptive Status DISABLED [facility] [place] Battery Voltage (volts) 2.99 V [facility] [place] Darion RA Pacing Amplitude (volts) 2 V [facility] [place] Darion RA Pacing Polarity BI [facility] [place] Darion RA Pacing Pulse Width (ms) 0.4 ms [facility] [place] Darion RA Sensing Amplitude (mvolts) 0.3 mV [facility] [place] Darion RA Sensing Blanking Period (ms) 150 ms [facility] [place] Darion RA Sensing Polarity BI [facility] [place] Darion RA Sensing Refractory Period (ms) Auto [facility] [place] Darion RV Pacing Amplitude (volts) 2 V [facility] [place] Darion RV Pacing Polarity BI [facility] [place] Darion RV Pacing Pulse Width (ms) 0.4 ms [facility] [place] Darion RV Sensing Amplitude (mvolts) 0.9 mV [facility] [place] Darion RV Sensing Blanking Period (ms) 200 ms [facility] [place] Darion RV Sensing Polarity BI [facility] [place] Hysteresis Rate (bpm) DISABLED [facility] Lead1 Mfg MDT [facility] [place] Lead2 Mfg MDT [facility] [place] Location RA [facility] [place] Location RV [facility] [place] Lower Rate (bpm) 55 {beats}/min [facility] Max Sensor Rate (bmp) 130 {beats}/min [facility] [place] Model [id number] Sara XT DR MRI [facility] PM-Device Mfg MDT [facility] [place] PM-Percent Pacing (A) 32.97 % [facility] PM-Percent Pacing (V) 62.74 % [facility] PM-PMT Intervention [facility] PM-PVC Intervention [facility] PM-Rate Modulation Acceleration Reaction 30 s [facility] [place] PM-Rate Modulation ADL Rate (bpm) 90 {beats}/min [facility] [place] PM-Rate Modulation Deceleration Exercise [facility] [place] PM-Rate Modulation Mellette 3 [facility] [place] PM-Rate Modulation Threshold Low [facility] [place] RA Bipolar Impedance ohms 380 ohm [facility] [place] RA Unipolar Impedance ohms 247 ohm [facility] [place] RV Bipolar Impedance ohms 361 ohm [facility] [place] RV Unipolar Impedance 266 ohm [facility] Serial Number [id number] [facility] [place] Serial Number [id number] [facility] [place] Serial Number [id number] [facility] [place] Thresh RA Capture Amplitude (volts) 1 V [facility] [place] Thresh RA Capture Duration (ms) 0.4 ms [facility] [place] Thresh RA Sensing Amplitude (mvolts) 2.375 mV [facility] [place] Thresh RV Capture Amplitude (volts) 1 V [facility] [place] Thresh RV Capture Duration (ms) 0.4 ms [facility] [place] Thresh RV Sensing Amplitude (mvolts) 6.375 mV [facility] [place] Tracking Rate (bpm) 130 {beats}/min [facility] [place] No Panel Informationon 07-03 BLANK _ [facility] [place] Implant Date 07/01/2018 [facility] [place] Model 5076 [employer] [facility] CHECKon AV Delay Adaptive Paced Minimum (ms) 180 ms [facility] [place] AV Delay Adaptive Sensed Minimum (ms) 150 ms [facility] [place] AV Delay Adaptive Status DISABLED [facility] [place] Battery Voltage (volts) 3.00 V [facility] [place] Darion RA Pacing Amplitude (volts) 2 V [facility] [place] Darion RA Pacing Polarity BI [facility] [place] Darion RA Pacing Pulse Width (ms) 0.4 ms [facility] [place] Darion RA Sensing Amplitude (mvolts) 0.3 mV [facility] [place] Darion RA Sensing Blanking Period (ms) 150 ms [facility] [place] Darion RA Sensing Polarity BI [facility] [place] Darion RA Sensing Refractory Period (ms) Auto [facility] [place] Darion RV Pacing Amplitude (volts) 2 V [facility] [place] Darion RV Pacing Polarity BI [facility] [place] Darion RV Pacing Pulse Width (ms) 0.4 ms [facility] [place] Darion RV Sensing Amplitude (mvolts) 0.9 mV [facility] [place] Darion RV Sensing Blanking Period (ms) 200 ms [facility] [place] Darion RV Sensing Polarity BI [facility] [place] Hysteresis Rate (bpm) DISABLED [facility] Lead1 Mfg MDT [facility] [place] Lead2 Mfg MDT [facility] [place] Location RA [facility] [place] Location RV [facility] [place] Lower Rate (bpm) 55 {beats}/min [facility] Max Sensor Rate (bmp) 130 {beats}/min [facility] [place] Model [id number] Sara XT DR MRI [facility] Pacemaker Dependent? YES [facility] PM-Device Mfg MDT [facility] [place] PM-Percent Pacing (A) 99.91 % [facility] PM-Percent Pacing (V) 0.47 % [facility] PM-PMT Intervention [facility] PM-PVC Intervention [facility] PM-Rate Modulation Acceleration Reaction 30 s [facility] [place] PM-Rate Modulation ADL Rate (bpm) 90 {beats}/min [facility] [place] PM-Rate Modulation Deceleration Exercise [facility] [place] PM-Rate Modulation Mellette 3 [facility] [place] PM-Rate Modulation Threshold Low [facility] [place] RA Bipolar Impedance ohms 456 ohm [facility] [place] RA Unipolar Impedance ohms 266 ohm [facility] [place] Rhythm No atrial intrinsic at DDD 40, intact AV conduction with AP [facility] [place] RV Bipolar Impedance ohms 399 ohm [facility] [place] RV Unipolar Impedance 285 ohm [facility] Serial Number [id number] [facility] [place] Serial Number [id number] [facility] [place] Serial Number [id number] [facility] [place] Thresh RA Capture Amplitude (volts) 0.875 V [facility] [place] Thresh RA Capture Duration (ms) 0.4 ms [facility] [place] Thresh RA Sensing Amplitude (mvolts) 2 mV [facility] [place] Thresh RV Capture Amplitude (volts) 1 V [facility] [place] Thresh RV Capture Duration (ms) 0.4 ms [facility] [place] Thresh RV Sensing Amplitude (mvolts) 6.25 mV [facility] [place] Tracking Rate (bpm) 130 {beats}/min [facility] [place] No Panel Informationon 06-09 BLANK _ [facility] [place] Implant Date 07/01/2018 [facility] [place] Model 5076 [employer] [facility]IN[facility] CHECKon AV Delay Adaptive Paced Minimum (ms) 180 ms [facility] [place] AV Delay Adaptive Sensed Minimum (ms) 150 ms [facility] [place] AV Delay Adaptive Status DISABLED [facility] [place] Battery Voltage (volts) 3.00 V [facility] [place] Daroin RA Pacing Amplitude (volts) 2 V [facility] [place] Darion RA Pacing Polarity BI [facility] [place] Darion RA Pacing Pulse Width (ms) 0.4 ms [facility] [place] Darion RA Sensing Amplitude (mvolts) 0.3 mV [facility] [place] Darion RA Sensing Blanking Period (ms) 150 ms [facility] [place] Darion RA Sensing Polarity BI [facility] [place] Darion RA Sensing Refractory Period (ms) Auto [facility] [place] Darion RV Pacing Amplitude (volts) 2 V [facility] [place] Darion RV Pacing Polarity BI [facility] [place] Darion RV Pacing Pulse Width (ms) 0.4 ms [facility] [place] Darion RV Sensing Amplitude (mvolts) 0.9 mV [facility] [place] Darion RV Sensing Blanking Period (ms) 200 ms [facility] [place] Darion RV Sensing Polarity BI [facility] [place] Hysteresis Rate (bpm) DISABLED [facility] Lead1 Mfg MDT [facility] [place] Lead2 Mfg MDT [facility] [place] Location RA [facility] [place] Location RV [facility] [place] Lower Rate (bpm) 55 {beats}/min [facility] Max Sensor Rate (bmp) 130 {beats}/min [facility] [place] Model [id number] [place] XT DR YEUNG [facility] Pacemaker Dependent? YES [facility] PM-Device Mfg MDT [facility] [place] PM-Percent Pacing (A) 93.51 % [facility] PM-Percent Pacing (V) 6.58 % [facility] PM-PMT Intervention [facility] PM-PVC Intervention [facility] PM-Rate Modulation Acceleration Reaction 30 s [facility] [place] PM-Rate Modulation ADL Rate (bpm) 90 {beats}/min [facility] [place] PM-Rate Modulation Deceleration Exercise [facility] [place] PM-Rate Modulation Mellette 3 [facility] [place] PM-Rate Modulation Threshold Low [facility] [place] RA Bipolar Impedance ohms 399 ohm [facility] [place] RA Unipolar Impedance ohms 266 ohm [facility] [place] Rhythm Rare atrial beats at AAI 30 bpm. AP with good VS conduction. [facility] [place] RV Bipolar Impedance ohms 361 ohm [facility] [place] RV Unipolar Impedance 285 ohm [facility] Serial Number [id number] [facility] [place] Serial Number [id number] [facility] [place] Serial Number [id number] [facility] [place] Thresh RA Capture Amplitude (volts) 1 V [facility] [place] Thresh RA Capture Duration (ms) 0.4 ms [facility] [place] Thresh RA Sensing Amplitude (mvolts) 1.75 mV [facility] [place] Thresh RV Capture Amplitude (volts) 1 V [facility] [place] Thresh RV Capture Duration (ms) 0.4 ms [facility] [place] Thresh RV Sensing Amplitude (mvolts) 6.125 mV [facility] [place] Tracking Rate (bpm) 130 {beats}/min [facility] [place] Basophil percentageOrdered B y: Jorge Benavides on 04-21-2023 Basophil percentage >100 SEEN /hpf 0-5 W [facility] Bilirubin Test strip Ql (U)O rdered By: Jorge Benavides on 04-21-2023 Bilirubin Ql (U) Negative Negative [facility] Culture, urineOrdered By: Adolfo Benavides on 04-21-2023 Bacteria identified Cx Nom (U) Presumptive E. coli [facility] Bacteria identified Cx Nom (U) Presumptive E. coli [facility] Ketones Test strip Ql (U)Ord ered By: Jorge Benavides on 04-21-2023 Ketones Ql (U) Negative Negative [facility] Laboratory - Hematology and Cell countson 04-21-2023 HbA1c (Bld) [Mass fraction] 6.2 % 4.2-6.[address] [facility] Mucus LM Ql (Urine sed)Order ed By: Jorge Benavides on 04-21-2023 Mucus Ql (Urine sed) 0 SEEN /hpf [facility] Nitrite Test strip Ql (U)Ord ered By: Jorge Kennedy on 04-21-2023 Nitrite Ql (U) Negative Negative [facility] Protein Test strip Ql (U)Ord ered By: Jorge Kennedy on 04-21-2023 Protein Ql (U) 30 mg/dl Negative [facility] [facility] Squamous epithelial cells de tection in urine sediment by light microscopyOrdered By: Jorge Benavides on 04-21-2023 Epithelial cells.squamous LM Ql (Urine sed) 0-5 SEEN /hpf 5-[address] [facility] Urine blood detectionOrdered By: Jorge Benavides on 04-21-2023 RBC Ql (U) 25 /ul Negative [facility] RBC Ql (U) 0-5 SEEN /hpf 0-[address] [facility] Urine clarityOrdered By: Hal Benavides on 04-21-2023 Clarity (U) Cloudy Clear [facility] Urine color determinationOrd ered By: Jorge Benavides on 04-21-2023 Color (U) Yellow Yellow [facility] Urine glucose detectionOrder ed By: Jorge Benavides on 04-21-2023 Glucose Ql (U) Normal mg/dl Normal [facility] Urine leukocyte esterase det ection by dipstickOrdered By: Jorge Benavides on 04-21-2023 Leukocyte esterase Test strip Ql (U) 500 /ul Negative [facility] Urine pHOrdered By: Jorge wilkes on 04-21-2023 pH (U) 6.5 [pH] 5.0 - 8.[address] [facility] Urine sediment bacteria coun t by microscopy (number/high power field)Ordered By: Jorge Benavides on 04-21-2023 Bacteria LM.HPF (Urine sed) [#/Area] 2 /[HPF] None Seen [facility] Urine specific gravity measu rementOrdered By: Jorge Benavides on 04-21-2023 Specific gravity (U) [Rel density] 1.010 1.002-1.[address] [facility] Urobilinogen Auto test strip Ql (U)Ordered By: Jorge Benavides on 04-21-2023 Urobilinogen Ql (U) Normal mg/dl Normal [facility] Basophil percentageOrdered B y: Ros Nice on 04-14-2023 WBC (Bld) [#/Vol] 5.5 10*3/uL 4.4-11.0 [facility] Blood erythrocytes count (nu mber/volume)Ordered By: Ros Nice on 04-14-2023 RBC (Bld) [#/Vol] 3.85 10*6/uL 4.2-5.4 [facility] Blood hemoglobin measurement (mass/volume)Ordered By: Ros Nice on 04-14-2023 Hemoglobin (Bld) [Mass/Vol] 12.0 g/dL 12.0-15.[address] [facility] Blood platelet mean volumeOr dered By: Ros Nice on 04-14-2023 Platelet mean volume (Bld) [Entitic vol] 9.9 fL 6.2-12.[address] [facility] Determination of erythrocyte mean corpuscular volume (MCV)Ordered By: Ros Nice on 04-14-2023 MCV (RBC) [Entitic vol] 96.9 fL 81-[address] [facility] Hematocrit Auto (Bld) [Volum e fraction]Ordered By: Ros Nice on 04-14-2023 Hematocrit (Bld) [Volume fraction] 37.3 % 37-[address] [facility] Laboratory - Hematology and Cell countsOrdered By: Ros Nice on 04-14-2023 Erythrocyte distribution width (RBC) [Entitic vol] 49.7 fL 35.1-43.[address] [facility] Erythrocyte distribution width (RBC) [Ratio] 13.9 % 11.6-14.[address] [facility] MCH (RBC) [Entitic mass] 31.2 pg 27.0-32.[address] [facility] MCHC Auto (RBC) [Mass/Vol]Or dered By: Ros Nice on 04-14-2023 MCHC (RBC) [Mass/Vol] 32.2 g/dL 32-36 [facility] Platelets bldOrdered By: Anel Nice on 04-14-2023 Platelets (Bld) [#/Vol] 224 10*3/uL 150-[address] [facility] Serum or plasma cortisol pedro surement (mass/volume)Ordered By: Ros Nice on 04-14-2023 Cortisol [Mass/Vol] 2.30 ug/dL 3.44-22.45 [facility] Comment on above: Adult (AM) 5.27 - 22 .45 ug/dL Adult (PM) 3.44 - 16.76 ug/dLPlease note revised CORTISOL reference range effective 2019. Urine creatinine measurement (mass/volume)Ordered By: Ros Nice on 04-14-2023 Creatinine (U) [Mass/Vol] 107.00 mg/dL NO RANGE EST. [facility] Urine protein measurement (m ass/volume)Ordered By: Ros Nice on 04-14-2023 Protein (U) [Mass/Vol] 53.6 mg/dL 0.0-11.8 [facility] Urine protein/creatinine mas s ratioOrdered By: Ros Nice on 04-14-2023 Protein/Creatinine (U) [Mass ratio] 501 mg/g CRE 0-[address] [facility] Basophil percentageOrdered B y: Ros Nice on 04-03-2023 Basophil percentage 3.2 mg/dL 2.5-4.9 [facility] Chloride [Moles/Vol] 110 mmol/L 98-107 [facility] Glucose [Mass/Vol] 123 mg/dL 74-106 [facility] Comment on above: Fasting Glucose resu lt from 100 to 125 mg/dL suggests IMPAIRED HOMEOSTASIS per A.D.A. criteria. Potassium [Moles/Vol] 4.9 mmol/L 3.5-5.1 [facility] Sodium [Moles/Vol] 139 mmol/L 136-145 [facility] Laboratory - Chemistry and C hemistry - challengeOrdered By: Ros Nice on 04-03-2023 CO2 [Moles/Vol] 22.0 mmol/L 21.0-32.[address] [facility] Urea nitrogen/Creatinine [Mass ratio] 26.1 mg/mg 10-[address] [facility] No Panel InformationOrdered By: Ros Nice on 04-03-2023 Estimated GFR (MDRD) Amer 42 mL/min >[address] [facility] Comment on above: GFR Calc Estimated GFR (MDRD) Non-Af Amer 35 mL/min >[address] [facility] Comment on above: Non- GFR Calc Serum or plasma albumin rema urement (mass/volume)Ordered By: Ros Nice on 04-03-2023 Albumin [Mass/Vol] 3.4 g/dL 3.2-5.0 [facility] Serum or plasma calcium rema urement (mass/volume)Ordered By: Ros Nice on 04-03-2023 Calcium [Mass/Vol] 9.8 mg/dL 8.5-10.1 [facility] Serum or plasma cortisol pedro surement (mass/volume)Ordered By: Ros Nice on 04-03-2023 Cortisol [Mass/Vol] 12.10 ug/dL 3.44-22.45 [facility] Comment on above: Adult (AM) 5.27 - 22 .45 ug/dL Adult (PM) 3.44 - 16.76 ug/dLPlease note revised CORTISOL reference range effective 2019. Serum or plasma creatinine m easurement (mass/volume)Ordered By: Ros Nice on 04-03-2023 Creatinine [Mass/Vol] 1.53 mg/dL 0.55-1.02 [facility] Comment on above: The validity of the calculated GFR & GFRAA in patients over 70 years has not been determined. Clinical correlation is essential. Serum or plasma urea nitroge n measurement (mass/volume)Ordered By: Ros Nice on 04-03-2023 Urea nitrogen [Mass/Vol] 40 mg/dL 7-[address] [facility] Aldosterone/renin activity r atioOrdered By: Ros Nice on 02-05-2023 Aldosterone/Renin (P) [Ratio] 1.3 0.0-30.[address] [facility] Comment on above: Units: ng/dL per ng/ mL/hrPerformed at: [facility] [id number] Director: Darci Rodriguez MD, Phone: [phone] Basophil percentageOrdered B y: Dr. Nice on 02-05-2023 Basophil percentage 3.3 mg/dL 2.5-4.9 [facility] Chloride [Moles/Vol] 99 mmol/L 98-107 [facility] Glucose [Mass/Vol] 143 mg/dL 74-106 [facility] Comment on above: Fasting Glucose resu lt greater than or equal to 126 mg/dL suggests DIABETES MELLITUS per A.D.A. criteria. Potassium [Moles/Vol] 4.4 mmol/L 3.5-5.1 [facility] Sodium [Moles/Vol] 132 mmol/L 136-145 [facility] Laboratory - Chemistry and C hemistry - challengeOrdered By: Dr. Nice on 02-05-2023 CO2 [Moles/Vol] 25.0 mmol/L 21.0-32.[address] [facility] Urea nitrogen/Creatinine [Mass ratio] 32.4 mg/mg [address] [facility] No Panel InformationOrdered By: Dr. Nice on 02-05-2023 Estimated GFR (MDRD) Amer 27 mL/min >[address] [facility] Comment on above: GFR Calc Estimated GFR (MDRD) Non-Af Amer 23 mL/min >[address] [facility] Comment on above: Non- GFR Calc Miscellaneous Test See comment [facility] Comment on above: TEST RESULT LIMITSMe tanephrines, Frac., Pl. Free Normetanephrine,Pl 110.8 pg/mL 0.0-297.2 Metanephrine, Pl 31.3 pg/mL 0.0-88.0 __ TESTING PERFORMED AT [facility]. ORIGINAL REPORT ON FILE IN LAB CONTAINS ADDITIONAL TEST SITE INFORMATION. Plasma renin measurement (en zymatic activity/volume)Ordered By: Ros Nice on 02-05-2023 Renin (P) [Catalytic activity/Vol] 4.209 ng/mL/hr 0.167-5.[address] [facility] Serum or plasma albumin rema urement (mass/volume)Ordered By: Dr. Nice on 02-05-2023 Albumin [Mass/Vol] 3.6 g/dL 3.2-5.0 [facility] Serum or plasma calcium rema urement (mass/volume)Ordered By: Dr. Nice on 02-05-2023 Calcium [Mass/Vol] 9.7 mg/dL 8.5-10.1 [facility] Serum or plasma creatinine m easurement (mass/volume)Ordered By: Dr. Nice on 02-05-2023 Creatinine [Mass/Vol] 2.22 mg/dL 0.55-1.02 [facility] Comment on above: The validity of the calculated GFR & GFRAA in patients over 70 years has not been determined. Clinical correlation is essential. Serum or plasma urea nitroge n measurement (mass/volume)Ordered By: Dr. Nice on 02-05-2023 Urea nitrogen [Mass/Vol] 72 mg/dL 7-[address] [facility] Thin prep Papanicolaou smear with manual screeningOrdered By: Rso Nice on 02-05-2023 Thin prep Papanicolaou smear with manual screening 5.4 ng/dL 0.0-30.[address] [facility] Glucose Glucometer (BldC) [M ass/Vol]Ordered By: Dr. Guevara on 12-03-2022 Glucose [Mass/Vol] 180 mg/dL 74-106 [facility] Comment on above: MANAGEMENT OF PATIEN T CARE PER NURSING PROTOCOL Absolute lymphocyte countOrd ered By: Dr. Wright on 12-02-2022 Lymphocytes Auto (Unsp spec) [#/Vol] 1.03 10*3/uL 0.83-4.[address] [facility] Basophil percentageOrdered B y: Dr. Wright on 12-02-2022 Basophils/100 WBC (Bld) 0.2 % 0-[address] [facility] Chloride [Moles/Vol] 105 mmol/L 98-107 [facility] Cholesterol [Mass/Vol] 157 mg/dL <200 [facility] Comment on above: <200 mg/dL Desirable 200-240 mg/dL Borderline >240 mg/dL High Risk Eosinophils/100 WBC (Bld) 0.2 % 0-[address] [facility] Glucose [Mass/Vol] 115 mg/dL 74-106 [facility] Comment on above: Fasting Glucose resu lt from 100 to 125 mg/dL suggests IMPAIRED HOMEOSTASIS per A.D.A. criteria. Neutrophils (Bld) [#/Vol] 3.7 10*3/uL 2.0-7.[address] [facility] Neutrophils/100 WBC (Bld) 73.0 % 47-[address] [facility] Potassium [Moles/Vol] 4.4 mmol/L 3.5-5.1 [facility] Sodium [Moles/Vol] 138 mmol/L 136-145 [facility] Triglyceride [Mass/Vol] 44 mg/dL <[address] [facility] Comment on above: The drugs N-Acetylcy steine and Metamizole may falsely depress this assay.Serum Triglycerides Reference Interval Normal <150 mg/dL Borderline high 150 - 199 mg/dL High 200 - 499 mg/dL Very High > or = 500 mg/dL WBC (Bld) [#/Vol] 5.1 10*3/uL 4.4-11.0 [facility] Blood erythrocytes count (nu mber/volume)Ordered By: Dr. Wright on 12-02-2022 RBC (Bld) [#/Vol] 3.64 10*6/uL 4.2-5.4 [facility] Blood hemoglobin measurement (mass/volume)Ordered By: Dr. Wright on 12-02-2022 Hemoglobin (Bld) [Mass/Vol] 11.0 g/dL 12.0-15.[address] [facility] Blood lymphocytes/100 leukoc ytesOrdered By: Dr. Wright on 12-02-2022 Lymphocytes/100 WBC (Bld) 20.1 % 19-[address] [facility] Blood monocytes/100 leukocyt esOrdered By: Dr. Wright on 12-02-2022 Monocytes/100 WBC (Bld) 6.1 % 0-[address] [facility] Blood platelet mean volumeOr dered By: Dr. Wright on 12-02-2022 Platelet mean volume (Bld) [Entitic vol] 10.6 fL 6.2-12.[address] [facility] Determination of erythrocyte mean corpuscular volume (MCV)Ordered By: Dr. Wright on 12-02-2022 MCV (RBC) [Entitic vol] 99.5 fL 81-[address] [facility] Hematocrit Auto (Bld) [Volum e fraction]Ordered By: Dr. Wright on 12-02-2022 Hematocrit (Bld) [Volume fraction] 36.2 % 37-[address] [facility] Laboratory - Chemistry and C hemistry - challengeOrdered By: Dr. Wright on 12-02-2022 CO2 [Moles/Vol] 23.0 mmol/L 21.0-32.[address] [facility] Urea nitrogen/Creatinine [Mass ratio] 27.2 mg/mg 10-[address] [facility] Laboratory - Hematology and Cell countsOrdered By: Dr. Wright on 12-02-2022 Erythrocyte distribution width (RBC) [Entitic vol] 50.0 fL 35.1-43.[address] [facility] Erythrocyte distribution width (RBC) [Ratio] 13.7 % 11.6-14.[address] [facility] Immature granulocytes/100 WBC (Bld) 0.400 % 0.0-0.[address] [facility] Comment on above: IG% - Immature Granu locytes (promyelocytes, myelocytes and metamyelocytes) > 1% indicates that a LEFT SHIFT is Present. MCH (RBC) [Entitic mass] 30.2 pg 27.0-32.[address] [facility] Nucleated RBC/100 WBC (Bld) [Ratio] 0 % 0-[address] [facility] MCHC Auto (RBC) [Mass/Vol]Or dered By: Dr. Wright on 12-02-2022 MCHC (RBC) [Mass/Vol] 30.4 g/dL 32-36 [facility] No Panel InformationOrdered By: Dr. Wright on 12-02-2022 Estimated Creatinine Clearance Calc 23.74 ml/min [facility] Estimated GFR (MDRD) Amer 44 mL/min >[address] [facility] Comment on above: GFR Calc Estimated GFR (MDRD) Non-Af Amer 36 mL/min >[address] [facility] Comment on above: Non- GFR Calc Platelets bldOrdered By: Dr. Wright on 12-02-2022 Platelets (Bld) [#/Vol] 219 10*3/uL 150-[address] [facility] Serum or plasma calcium rema urement (mass/volume)Ordered By: Dr. Wright on 12-02-2022 Calcium [Mass/Vol] 9.9 mg/dL 8.5-10.1 [facility] Serum or plasma cholesterol in HDL measurement (mass/volume)Ordered By: Dr. Wright on 12-02-2022 Cholesterol in HDL [Mass/Vol] 69 mg/dL >[address] [facility] Comment on above: The drugs N-Acetylcy steine and Metamizole may falsely depress this assay. Reference Range HDL <40 mg/dL Low HDL Cholesterol HDL >or= 60 mg/dL High HDL Cholesterol Serum or plasma cholesterol in VLDL measurement (mass/volume)Ordered By: Dr. Wright on 12-02-2022 Cholesterol in VLDL [Mass/Vol] 9 mg/dL 5-[address] [facility] Serum or plasma creatinine m easurement (mass/volume)Ordered By: Dr. Wright on 12-02-2022 Creatinine [Mass/Vol] 1.47 mg/dL 0.55-1.02 [facility] Comment on above: The validity of the calculated GFR & GFRAA in patients over 70 years has not been determined. Clinical correlation is essential. Serum or plasma low density lipoprotein (LDL) cholesterol measurement (mass/volume)Ordered By: Dr. Wright on 12-02-2022 Cholesterol in LDL [Mass/Vol] 79 mg/dL 0-[address] [facility] Serum or plasma urea nitroge n measurement (mass/volume)Ordered By: Dr. Wright on 12-02-2022 Urea nitrogen [Mass/Vol] 40 mg/dL 7-[address] [facility] Thin prep Papanicolaou smear with manual screeningOrdered By: Dr. Wright on 12-02-2022 Thin prep Papanicolaou smear with manual screening 10 5-[address] [facility] Absolute lymphocyte countOrd ered By: Dr. Fall on 12-01-2022 Lymphocytes Auto (Unsp spec) [#/Vol] 2.16 10*3/uL 0.83-4.[address] [facility] Basophil percentageOrdered B y: Dr. Fall on 12-01-2022 Basophils/100 WBC (Bld) 0.2 % 0-[address] [facility] Chloride [Moles/Vol] 104 mmol/L 98-107 [facility] Eosinophils/100 WBC (Bld) 0.8 % 0-[address] [facility] Glucose [Mass/Vol] 99 mg/dL 74-106 [facility] Neutrophils (Bld) [#/Vol] 3.5 10*3/uL 2.0-7.[address] [facility] Neutrophils/100 WBC (Bld) 55.8 % 47-[address] [facility] Potassium [Moles/Vol] 3.8 mmol/L 3.5-5.1 [facility] Sodium [Moles/Vol] 136 mmol/L 136-145 [facility] WBC (Bld) [#/Vol] 6.3 10*3/uL 4.4-11.0 [facility] Blood erythrocytes count (nu mber/volume)Ordered By: Dr. Fall on 12-01-2022 RBC (Bld) [#/Vol] 4.00 10*6/uL 4.2-5.4 [facility] Blood hemoglobin measurement (mass/volume)Ordered By: Dr. Fall on 12-01-2022 Hemoglobin (Bld) [Mass/Vol] 12.2 g/dL 12.0-15.[address] [facility] Blood lymphocytes/100 leukoc ytesOrdered By: Dr. Fall on 12-01-2022 Lymphocytes/100 WBC (Bld) 34.1 % 19-[address] [facility] Blood monocytes/100 leukocyt esOrdered By: Dr. Fall on 12-01-2022 Monocytes/100 WBC (Bld) 8.8 % 0-[address] [facility] Blood platelet mean volumeOr dered By: Dr. Fall on 12-01-2022 Platelet mean volume (Bld) [Entitic vol] 9.7 fL 6.2-12.[address] [facility] Determination of erythrocyte mean corpuscular volume (MCV)Ordered By: Dr. Fall on 12-01-2022 MCV (RBC) [Entitic vol] 96.0 fL 81-[address] [facility] Hematocrit Auto (Bld) [Volum e fraction]Ordered By: Dr. Fall on 12-01-2022 Hematocrit (Bld) [Volume fraction] 38.4 % 37-[address] [facility] Laboratory - Chemistry and C hemistry - challengeOrdered By: Dr. Fall on 12-01-2022 CO2 [Moles/Vol] 25.0 mmol/L 21.0-32.[address] [facility] Urea nitrogen/Creatinine [Mass ratio] 28.4 mg/mg 10-[address] [facility] Laboratory - Hematology and Cell countsOrdered By: Dr. Fall on 12-01-2022 Erythrocyte distribution width (RBC) [Entitic vol] 49.1 fL 35.1-43.[address] [facility] Erythrocyte distribution width (RBC) [Ratio] 13.8 % 11.6-14.[address] [facility] Immature granulocytes/100 WBC (Bld) 0.300 % 0.0-0.[address] [facility] Comment on above: IG% - Immature Granu locytes (promyelocytes, myelocytes and metamyelocytes) > 1% indicates that a LEFT SHIFT is Present. MCH (RBC) [Entitic mass] 30.5 pg 27.0-32.[address] [facility] Nucleated RBC/100 WBC (Bld) [Ratio] 0 % 0-[address] [facility] MCHC Auto (RBC) [Mass/Vol]Or dered By: Dr. Fall on 12-01-2022 MCHC (RBC) [Mass/Vol] 31.8 g/dL 32-36 [facility] No Panel InformationOrdered By: Dr. Wright on 12-01-2022 Troponin I High Sensitivity 812 pg/mL 3.0-54.[address] [facility] Comment on above: Critical Result(s) C alled at: 00:39:00 12/02/2022 by: Stone GÓMEZ RN ([facility]) Results read back by same. Please Note: New Test Units and Gender Specific Reference Ranges. For more information see Policy Stat Procedure [place] High Sensitivity Troponin (TNIH) and attachments. No Panel InformationOrdered By: Dr. Fall on 12-01-2022 Troponin I High Sensitivity 406 pg/mL 3.0-54.[address] [facility] Comment on above: Critical Result(s) C alled at: 20:06:13 12/01/2022 by: Monica Hernández. Results read back by same. Please Note: New Test Units and Gender Specific Reference Ranges. For more information see Policy Stat Procedure [place] High Sensitivity Troponin (TNIH) and attachments. Estimated Creatinine Clearance Calc 23.58 ml/min [facility] Estimated GFR (MDRD) Amer 43 mL/min >[address] [facility] Comment on above: GFR Calc Estimated GFR (MDRD) Non-Af Amer 36 mL/min >[address] [facility] Comment on above: Non- GFR Calc Platelets bldOrdered By: Dr. Fall on 12-01-2022 Platelets (Bld) [#/Vol] 261 10*3/uL 150-[address] [facility] Serum or plasma calcium rema urement (mass/volume)Ordered By: Dr. Fall on 12-01-2022 Calcium [Mass/Vol] 10.4 mg/dL 8.5-10.1 [facility] Serum or plasma creatinine m easurement (mass/volume)Ordered By: Dr. Fall on 12-01-2022 Creatinine [Mass/Vol] 1.48 mg/dL 0.55-1.02 [facility] Comment on above: The validity of the calculated GFR & GFRAA in patients over 70 years has not been determined. Clinical correlation is essential. Serum or plasma urea nitroge n measurement (mass/volume)Ordered By: Dr. Fall on 12-01-2022 Urea nitrogen [Mass/Vol] 42 mg/dL 7-[address] [facility] Thin prep Papanicolaou smear with manual screeningOrdered By: Dr. Fall on 12-01-2022 Thin prep Papanicolaou smear with manual screening 7 5-[address] [facility] UA DIP, URINE (POC)on 2022 BILIRUBIN UA (POCT) Negative Negative [facility] CLARITY UA (POCT) Clear [facility] COLOR UA (POCT) [place] [facility] [place] GLUCOSE UA (POCT) 100 mg/dL Abnormal Negative mg/dL [facility] [place] HEMOGLOBIN/BLOOD UA (POCT) Negative Negative [facility] [place] KETONE UA (POCT) Negative Negative mg/dL [facility] [place] LEUKOCYTES UA (POCT) Negative Negative [facility] NITRITE UA (POCT) Positive Abnormal Negative [facility] PH UA (POCT) 5.0 4.5 - 8.0 [facility] [place] Protein Ql (U) 100 mg/dL Abnormal Negative mg/dL [facility] SPECIFIC GRAVITY UA (POCT) 1.010 1.005 - 1.030 [facility] UROBILINOGEN UA (POCT) 1.0 E.U./dL Trisha l E.U./dL [facility] [place] Culture, urineOrdered By: Ra kelsea Fountain on 10-30-2022 Bacteria identified Cx Nom (U) Positive [facility] Basophil percentageOrdered B y: Milagros Fountain on 10-28-2022 Basophil percentage >100 SEEN /hpf 0-5 [facility] Comment on above: Microscopic field is filled. Other elements may be obscured. Chloride [Moles/Vol] 106 mmol/L 98-107 [facility] Glucose [Mass/Vol] 200 mg/dL 74-106 [facility] Comment on above: Glucose result great er than or equal to 200 mg/dLsuggests DIABETES MELLITUS per A.D.A. criteria. Potassium [Moles/Vol] 4.2 mmol/L 3.5-5.1 [facility] Sodium [Moles/Vol] 138 mmol/L 136-145 [facility] Bilirubin Test strip Ql (U)O rdered By: Milagros Fountain on 10-28-2022 Bilirubin Ql (U) Negative Negative [facility] Ketones Test strip Ql (U)Ord ered By: Milagros Fountain on 10-28-2022 Ketones Ql (U) Negative Negative [facility] Laboratory - Chemistry and C hemistry - challengeOrdered By: Milagros Fountain on 10-28-2022 CO2 [Moles/Vol] 20.0 mmol/L 21.0-32.[address] [facility] Urea nitrogen/Creatinine [Mass ratio] 26.4 mg/mg 10-[address] [facility] Mucus LM Ql (Urine sed)Order ed By: Milagros Fountain on 10-28-2022 Mucus Ql (Urine sed) 0 SEEN /hpf [facility] Nitrite Test strip Ql (U)Ord ered By: Milagros Fountain on 10-28-2022 Nitrite Ql (U) Negative Negative [facility] No Panel InformationOrdered By: Milagros Fountain on 10-28-2022 Estimated GFR (MDRD) Amer 34 mL/min >[address] [facility] Comment on above: GFR Calc Estimated GFR (MDRD) Non-Af Amer 28 mL/min >[address] [facility] Comment on above: Non- GFR Calc Protein Test strip Ql (U)Ord ered By: Milagros Fountain on 10-28-2022 Protein Ql (U) 100 mg/dl Negative [facility] Serum or plasma calcium rema urement (mass/volume)Ordered By: Milagros Fountain on 01-30-2023 Calcium [Mass/Vol] 10.1 mg/dL 8.5-10.1 [facility] Serum or plasma creatinine m easurement (mass/volume)Ordered By: Milagros Fountain on 10-28-2022 Creatinine [Mass/Vol] 1.82 mg/dL 0.55-1.02 [facility] Comment on above: The validity of the calculated GFR & GFRAA in patients over 70 years has not been determined. Clinical correlation is essential. Serum or plasma urea nitroge n measurement (mass/volume)Ordered By: Milagros Fountain on 10-28-2022 Urea nitrogen [Mass/Vol] 48 mg/dL 7-[address] [facility] Squamous epithelial cells de tection in urine sediment by light microscopyOrdered By: Milagros Fountain on 10-28-2022 Epithelial cells.squamous LM Ql (Urine sed) 0 SEEN /hpf 5-[address] [facility] Thin prep Papanicolaou smear with manual screeningOrdered By: Milagros Fountain on 10-28-2022 Thin prep Papanicolaou smear with manual screening 12 5-[address] [facility] Urine blood detectionOrdered By: Milagros Fountain on 10-28-2022 RBC Ql (U) 250 /ul Negative [facility] RBC Ql (U) 0 SEEN /hpf 0-[address] [facility] Urine clarityOrdered By: Nicholas Fountain on 10-28-2022 Clarity (U) Cloudy Clear [facility] Urine color determinationOrd ered By: Milagros Fountain on 10-28-2022 Color (U) Yellow Yellow [facility] Urine glucose detectionOrder ed By: Milagros Fountain on 10-28-2022 Glucose Ql (U) Normal mg/dl Normal [facility] Urine leukocyte esterase det ection by dipstickOrdered By: Milagros Fountain on 10-28-2022 Leukocyte esterase Test strip Ql (U) 500 /ul Negative [facility] Urine pHOrdered By: Milagros Fountain on 10-28-2022 pH (U) 6.0 [pH] 5.0 - 8.[address] [facility] Urine sediment bacteria coun t by microscopy (number/high power field)Ordered By: Milagros Fountain on 10-28-2022 Bacteria LM.HPF (Urine sed) [#/Area] 0 /[HPF] None Seen [facility] Urine specific gravity measu rementOrdered By: Milagros Fountain on 10-28-2022 Specific gravity (U) [Rel density] 1.020 1.002-1.[address] [facility] Urobilinogen Auto test strip Ql (U)Ordered By: Milagros Fountain on 10-28-2022 Urobilinogen Ql (U) Normal mg/dl Normal [facility] Basophil percentageOrdered B y: Dr. Nice on 09-05-2022 Basophil percentage 2.7 mg/dL 2.5-4.9 [facility] Chloride [Moles/Vol] 110 mmol/L 98-107 [facility] Glucose [Mass/Vol] 82 mg/dL 74-106 [facility] Potassium [Moles/Vol] 3.9 mmol/L 3.5-5.1 [facility] Sodium [Moles/Vol] 141 mmol/L 136-145 [facility] Laboratory - Chemistry and C hemistry - challengeOrdered By: Dr. Nice on 09-05-2022 CO2 [Moles/Vol] 22.0 mmol/L 21.0-32.[address] [facility] Urea nitrogen/Creatinine [Mass ratio] 34.6 mg/mg 10-[address] [facility] No Panel InformationOrdered By: Dr. Nice on 09-05-2022 Estimated GFR (MDRD) Amer 42 mL/min >[address] [facility] Comment on above: GFR Calc Estimated GFR (MDRD) Non-Af Amer 35 mL/min >[address] [facility] Comment on above: Non- GFR Calc Serum or plasma albumin rema urement (mass/volume)Ordered By: Dr. Nice on 09-05-2022 Albumin [Mass/Vol] 3.5 g/dL 3.2-5.0 [facility] Serum or plasma calcium rema urement (mass/volume)Ordered By: Dr. Nice on 09-05-2022 Calcium [Mass/Vol] 10.0 mg/dL 8.5-10.1 [facility] Serum or plasma creatinine m easurement (mass/volume)Ordered By: Dr. Nice on 09-05-2022 Creatinine [Mass/Vol] 1.53 mg/dL 0.55-1.02 [facility] Comment on above: The validity of the calculated GFR & GFRAA in patients over 70 years has not been determined. Clinical correlation is essential. Serum or plasma urea nitroge n measurement (mass/volume)Ordered By: Dr. Nice on 09-05-2022 Urea nitrogen [Mass/Vol] 53 mg/dL 7-[address] [facility] Urine creatinine measurement (mass/volume)Ordered By: Dr. Nice on 09-05-2022 Creatinine (U) [Mass/Vol] 46.90 mg/dL NO RANGE EST. [facility] Urine protein measurement (m ass/volume)Ordered By: Dr. Nice on 09-05-2022 Protein (U) [Mass/Vol] 41.7 mg/dL 0.0-11.8 [facility] Urine protein/creatinine mas s ratioOrdered By: Dr. Nice on 09-05-2022 Protein/Creatinine (U) [Mass ratio] 889 mg/g CRE 0-[address] [facility] Absolute lymphocyte countOrd ered By: Dr. Benavides on 07-15-2022 Lymphocytes Auto (Unsp spec) [#/Vol] 1.27 10*3/uL 0.83-4.[address] [facility] Basophil percentageOrdered B y: Dr. Nice on 07-15-2022 Basophil percentage 2.7 mg/dL 2.5-4.9 [facility] Chloride [Moles/Vol] 109 mmol/L 98-107 [facility] Glucose [Mass/Vol] 162 mg/dL 74-106 [facility] Comment on above: Fasting Glucose resu lt greater than or equal to 126 mg/dL suggests DIABETES MELLITUS per A.D.A. criteria. Potassium [Moles/Vol] 4.0 mmol/L 3.5-5.1 [facility] Sodium [Moles/Vol] 141 mmol/L 136-145 [facility] Basophil percentageOrdered B y: Dr. Benavides on 07-15-2022 Basophils/100 WBC (Bld) 0.2 % 0-[address] [facility] Cholesterol [Mass/Vol] 210 mg/dL <200 [facility] Comment on above: <200 mg/dL Desirable 200-240 mg/dL Borderline >240 mg/dL High Risk Eosinophils/100 WBC (Bld) 0.4 % 0-[address] [facility] Neutrophils (Bld) [#/Vol] 3.8 10*3/uL 2.0-7.[address] [facility] Neutrophils/100 WBC (Bld) 70.0 % 47-[address] [facility] Triglyceride [Mass/Vol] 138 mg/dL <[address] [facility] Comment on above: The drugs N-Acetylcy steine and Metamizole may falsely depress this assay.Serum Triglycerides Reference Interval Normal <150 mg/dL Borderline high 150 - 199 mg/dL High 200 - 499 mg/dL Very High > or = 500 mg/dL WBC (Bld) [#/Vol] 5.4 10*3/uL 4.4-11.0 [facility] Blood erythrocytes count (nu mber/volume)Ordered By: Dr. Benavides on 07-15-2022 RBC (Bld) [#/Vol] 3.49 10*6/uL 4.2-5.4 [facility] Blood hemoglobin measurement (mass/volume)Ordered By: Dr. Benavides on 07-15-2022 Hemoglobin (Bld) [Mass/Vol] 11.1 g/dL 12.0-15.[address] [facility] Blood lymphocytes/100 leukoc ytesOrdered By: Dr. Benavides on 07-15-2022 Lymphocytes/100 WBC (Bld) 23.6 % 19-[address] [facility] Blood monocytes/100 leukocyt esOrdered By: Dr. Benavides on 07-15-2022 Monocytes/100 WBC (Bld) 5.6 % 0-[address] [facility] Blood platelet mean volumeOr dered By: Dr. Benavides on 07-15-2022 Platelet mean volume (Bld) [Entitic vol] 9.6 fL 6.2-12.[address] [facility] Determination of erythrocyte mean corpuscular volume (MCV)Ordered By: Dr. Benavides on 07-15-2022 MCV (RBC) [Entitic vol] 98.0 fL 81-[address] [facility] Hematocrit Auto (Bld) [Volum e fraction]Ordered By: Dr. Benavides on 07-15-2022 Hematocrit (Bld) [Volume fraction] 34.2 % 37-[address] [facility] Laboratory - Chemistry and C hemistry - challengeOrdered By: Dr. Nice on 07-15-2022 CO2 [Moles/Vol] 24.0 mmol/L 21.0-32.[address] [facility] Urea nitrogen/Creatinine [Mass ratio] 20.0 mg/mg 10-[address] [facility] Laboratory - Hematology and Cell countsOrdered By: Dr. Benavides on 07-15-2022 Erythrocyte distribution width (RBC) [Entitic vol] 48.2 fL 35.1-43.[address] [facility] Erythrocyte distribution width (RBC) [Ratio] 13.4 % 11.6-14.[address] [facility] Immature granulocytes/100 WBC (Bld) 0.200 % 0.0-0.[address] [facility] Comment on above: IG% - Immature Granu locytes (promyelocytes, myelocytes and metamyelocytes) > 1% indicates that a LEFT SHIFT is Present. MCH (RBC) [Entitic mass] 31.8 pg 27.0-32.[address] [facility] Nucleated RBC/100 WBC (Bld) [Ratio] 0 % 0-[address] [facility] MCHC Auto (RBC) [Mass/Vol]Or dered By: Dr. Benavides on 07-15-2022 MCHC (RBC) [Mass/Vol] 32.5 g/dL 32-36 [facility] No Panel InformationOrdered By: Dr. Benavides on 07-15-2022 Urine Microalbumin/Creatinin e Ratio 886.1 mg/g CRE <[address] [facility] Thyroid Stimulating Hormone (TSH) 1.82 uIU/mL 0.358-3.[address] [facility] No Panel InformationOrdered By: Dr. Nice on 07-15-2022 Estimated GFR (MDRD) Amer 43 mL/min >[address] [facility] Comment on above: GFR Calc Estimated GFR (MDRD) Non-Af Amer 35 mL/min >[address] [facility] Comment on above: Non- GFR Calc Platelets bldOrdered By: Dr. Benavides on 07-15-2022 Platelets (Bld) [#/Vol] 266 10*3/uL 150-[address] [facility] Serum or plasma albumin rema urement (mass/volume)Ordered By: Dr. Nice on 07-15-2022 Albumin [Mass/Vol] 3.6 g/dL 3.2-5.0 [facility] Serum or plasma calcium rema urement (mass/volume)Ordered By: Dr. Nice on 07-15-2022 Calcium [Mass/Vol] 10.1 mg/dL 8.5-10.1 [facility] Serum or plasma cholesterol in HDL measurement (mass/volume)Ordered By: Dr. Benavides on 07-15-2022 Cholesterol in HDL [Mass/Vol] 70 mg/dL >[address] [facility] Comment on above: The drugs N-Acetylcy steine and Metamizole may falsely depress this assay. Reference Range HDL <40 mg/dL Low HDL Cholesterol HDL >or= 60 mg/dL High HDL Cholesterol Serum or plasma cholesterol in VLDL measurement (mass/volume)Ordered By: Dr. Benavides on 07-15-2022 Cholesterol in VLDL [Mass/Vol] 28 mg/dL 5-[address] [facility] Serum or plasma creatinine m easurement (mass/volume)Ordered By: Dr. Nice on 07-15-2022 Creatinine [Mass/Vol] 1.50 mg/dL 0.55-1.02 [facility] Comment on above: The validity of the calculated GFR & GFRAA in patients over 70 years has not been determined. Clinical correlation is essential. Serum or plasma low density lipoprotein (LDL) cholesterol measurement (mass/volume)Ordered By: Dr. Benavides on 07-15-2022 Cholesterol in LDL [Mass/Vol] 112 mg/dL 0-[address] [facility] Serum or plasma urea nitroge n measurement (mass/volume)Ordered By: Dr. Nice on 07-15-2022 Urea nitrogen [Mass/Vol] 30 mg/dL 7-[address] [facility] Thin prep Papanicolaou smear with manual screeningOrdered By: Dr. Benavides on 07-15-2022 Thin prep Papanicolaou smear with manual screening 708.0 mg/L NO RANGE EST. [facility] Urine creatinine measurement (mass/volume)Ordered By: Dr. Benavides on 07-15-2022 Creatinine (U) [Mass/Vol] 79.90 mg/dL NO RANGE EST. [facility] Urine protein measurement (m ass/volume)Ordered By: Dr. Nice on 07-15-2022 Protein (U) [Mass/Vol] 89.0 mg/dL 0.0-11.8 [facility] Urine protein/creatinine mas s ratioOrdered By: Dr. Nice on 07-15-2022 Protein/Creatinine (U) [Mass ratio] 1147 mg/g CRE 0-[address] [facility] Whole blood hemoglobin A1c/t otal hemoglobin ratio (mass fraction)Ordered By: Dr. Benavides on 07-15-2022 HbA1c (Bld) [Mass fraction] 5.8 % 3.8-5.[address] [facility] Comment on above: Normal < 5.7 % Predi abetic 5.7 - 6.4 % Diabetic >or= 6.5 % Please note range changes. ECHOon 05-30-2022 [facility] No Panel Informationon 05-30 BLANK _ [facility] Implant Date 07/01/2018 [facility] Model [id number] [employer] [facility] PAC[facility]AKER CLINIC CHECKon AV Delay Adaptive Paced Minimum (ms) 180 ms [facility] AV Delay Adaptive Sensed Minimum (ms) 150 ms [facility] AV Delay Adaptive Status DISABLED [facility] Battery Voltage (volts) 3.01 V [facility] Darion RA Pacing Amplitude (volts) 2 V [facility] Darion RA Pacing Polarity BI [facility] Darion RA Pacing Pulse Width (ms) 0.4 ms [facility] Darion RA Sensing Amplitude (mvolts) 0.3 mV [facility] Darion RA Sensing Blanking Period (ms) 150 ms [facility] Darion RA Sensing Polarity BI [facility] Darion RA Sensing Refractory Period (ms) Auto [facility] Darion RV Pacing Amplitude (volts) 2 V [facility] Darion RV Pacing Polarity BI [facility] Darion RV Pacing Pulse Width (ms) 0.4 ms [facility] Darion RV Sensing Amplitude (mvolts) 0.9 mV [facility] Darion RV Sensing Blanking Period (ms) 200 ms [facility] Darion RV Sensing Polarity BI [facility] Hysteresis Rate (bpm) DISABLED [facility] Lead1 Mfg MDT [facility] Lead2 Mfg MDT [facility] Location RA [facility] Location RV [facility] Lower Rate (bpm) 45 {beats}/min [facility] Max Sensor Rate (bmp) 130 {beats}/min [facility] Model [id number] Sara XT DR YEUNG [facility] Dependent? [facility] PM-Device Mfg MDT [facility] PM-Percent Pacing (A) 74.46 % [facility] PM-Percent Pacing (V) 0.07 % [facility] PM-PMT Intervention ENABLED [facility] PM-PVC Intervention ENABLED [facility] PM-Rate Modulation Acceleration Reaction 30 s [facility] PM-Rate Modulation ADL Rate (bpm) 95 {beats}/min [facility] PM-Rate Modulation Deceleration Exercise [facility] PM-Rate Modulation Mellette 3 [facility] PM-Rate Modulation Threshold Low [facility] RA Bipolar Impedance ohms 437 ohm [facility] RA Unipolar Impedance ohms 247 ohm [facility] Rhythm SB [facility] RV Bipolar Impedance ohms 399 ohm [facility] RV Unipolar Impedance 304 ohm [facility] Serial Number [id number] [facility] Serial Number [id number] [facility] Serial Number [id number] [facility] Thresh RA Capture Amplitude (volts) 1 V [facility] Thresh RA Capture Duration (ms) 0.4 ms [facility] Thresh RA Sensing Amplitude (mvolts) 2 mV [facility] Thresh RV Capture Amplitude (volts) 1 V [facility] Thresh RV Capture Duration (ms) 0.4 ms [facility] Thresh RV Sensing Amplitude (mvolts) 7.1 mV [facility] Tracking Rate (bpm) 130 {beats}/min [facility] Basophil percentageon 2021 Basophil percentage 2.8 mg/dL 2.5-4.[address] [facility] [facility] Work Phone: Chloride [Moles/Vol] 108 mmol/L 98-107 [facility] Work Phone: Glucose [Mass/Vol] 122 mg/dL 74-106 [facility] Work Phone: Comment on above: Fasting Glucose resu lt from 100 to 125 mg/dL suggests IMPAIRED HOMEOSTASIS per A.D.A. criteria. Potassium [Moles/Vol] 3.7 mmol/L 3.5-5.1 [facility] Work Phone: Sodium [Moles/Vol] 139 mmol/L 136-145 [facility] Work Phone: Laboratory - Chemistry and C hemistry - challengeon 05-20-2022 CO2 [Moles/Vol] 24.0 mmol/L 21.0-32.[address] [facility] Work Phone: Urea nitrogen/Creatinine [Mass ratio] 28.7 mg/mg 10-[address] [facility] Work Phone: No Panel Informationon 05-20 Estimated GFR (MDRD) Amer 48 mL/min >[address] [facility] Work Phone: Comment on above: GFR Calc Estimated GFR (MDRD) Non-Af Amer 40 mL/min >[address] [facility] Work Phone: Comment on above: Non- GFR Calc Serum or plasma albumin rema urement (mass/volume)on 05-20-2022 Albumin [Mass/Vol] 3.6 g/dL 3.2-5.0 [facility] Work Phone: Serum or plasma calcium rema urement (mass/volume)on 05-20-2022 Calcium [Mass/Vol] 10.6 mg/dL 8.5-10.1 [facility] Work Phone: Serum or plasma creatinine m easurement (mass/volume)on 05-20-2022 Creatinine [Mass/Vol] 1.36 mg/dL 0.55-1.02 [facility] Work Phone: Comment on above: The validity of the calculated GFR & GFRAA in patients over 70 years has not been determined. Clinical correlation is essential. Serum or plasma urea nitroge n measurement (mass/volume)on 05-20-2022 Urea nitrogen [Mass/Vol] 39 mg/dL 7-[address] [facility] Work Phone: Glucose Glucometer (BldC) [M ass/Vol]on 04-08-2022 Glucose [Mass/Vol] 125 mg/dL 74-106 [facility] Work Phone: Comment on above: MANAGEMENT OF PATIEN T CARE PER NURSING PROTOCOL Basophil percentageon 2021 Basophil percentage 3.6 mg/dL 2.5-4.9 [place] [facility] Work Phone: Chloride [Moles/Vol] 104 mmol/L 98-[address] [facility] Work Phone: Glucose [Mass/Vol] 120 mg/dL 74-106 [facility] Work Phone: Comment on above: Fasting Glucose resu lt from 100 to 125 mg/dL suggests IMPAIRED HOMEOSTASIS per A.D.A. criteria. Potassium [Moles/Vol] 4.2 mmol/L 3.5-5.1 [place] [facility] Work Phone: Sodium [Moles/Vol] 138 mmol/L 136-145 [facility] Work Phone: Blood hemoglobin measurement (mass/volume)on 04-02-2022 Hemoglobin (Bld) [Mass/Vol] 11.5 g/dL 12.0-15.[address] [facility] Work Phone: Hematocrit Auto (Bld) [Volum e fraction]on 04-02-2022 Hematocrit (Bld) [Volume fraction] 36.6 % 37-[address] [facility] Work Phone: Laboratory - Chemistry and C hemistry - challengeon 04-02-2022 CO2 [Moles/Vol] 27.0 mmol/L 21.0-32.[address] [facility] Work Phone: Urea nitrogen/Creatinine [Mass ratio] 23.1 mg/mg 10-[address] [facility] Work Phone: No Panel Informationon 04-02 Estimated Creatinine Clearance Calc 42.27 ml/min [facility] Work Phone: Estimated GFR (MDRD) Amer 51 mL/min >[address] [facility] Work Phone: Comment on above: GFR Calc Estimated GFR (MDRD) Non-Af Amer 42 mL/min >[address] [facility] Work Phone: Comment on above: Non- GFR Calc Serum or plasma calcium rema urement (mass/volume)on 04-02-2022 Calcium [Mass/Vol] 9.6 mg/dL 8.5-10.1 [facility] Work Phone: Serum or plasma cortisol pedro surement (mass/volume)on 04-02-2022 Cortisol [Mass/Vol] 12.80 ug/dL 3.44-22.45 [facility] Work Phone: Comment on above: Adult (AM) 5.27 - 22 .45 ug/dL Adult (PM) 3.44 - 16.76 ug/dLPlease note revised CORTISOL reference range effective 2019. Serum or plasma creatinine m easurement (mass/volume)on 04-02-2022 Creatinine [Mass/Vol] 1.30 mg/dL 0.55-1.02 [facility] Work Phone: Comment on above: The validity of the calculated GFR & GFRAA in patients over 70 years has not been determined. Clinical correlation is essential. Serum or plasma urea nitroge n measurement (mass/volume)on 04-02-2022 Urea nitrogen [Mass/Vol] 30 mg/dL 7-[address] [facility] Work Phone: Thin prep Papanicolaou smear with manual screeningon 04-02-2022 Thin prep Papanicolaou smear with manual screening 7 5-[address] [facility] Work Phone: Absolute lymphocyte counton 03-29-2022 Lymphocytes Auto (Unsp spec) [#/Vol] 1.41 10*3/uL 0.83-4.[address] [facility] Work Phone: Basophil percentageon 2021 Basophil percentage 0 SEEN /hpf 0-5 [facility] Work Phone: Basophils/100 WBC (Bld) 0.1 % 0-[address] [facility] Work Phone: Eosinophils/100 WBC (Bld) 1.7 % 0-[address] [facility] Work Phone: Neutrophils (Bld) [#/Vol] 4.9 10*3/uL 2.0-7.[address] [facility] Work Phone: Neutrophils/100 WBC (Bld) 68.7 % 47-[address] [facility] Work Phone: [phone] WBC (Bld) [#/Vol] 7.1 10*3/uL 4.4-11.0 [place] [facility] Work Phone: Bilirubin Test strip Ql (U)o n 03-29-2022 Bilirubin Ql (U) Negative Negative [facility] Work Phone: Blood erythrocytes count (nu mber/volume)on 03-29-2022 RBC (Bld) [#/Vol] 3.39 10*6/uL 4.2-5.4 [place] [facility] Work Phone: Blood lymphocytes/100 leukoc yteson 03-29-2022 Lymphocytes/100 WBC (Bld) 19.9 % 19-[address] [facility] Work Phone: Blood monocytes/100 leukocyt eson 03-29-2022 Monocytes/100 WBC (Bld) 9.3 % 0-[address] [facility] Work Phone: Blood platelet mean volumeon 03-29-2022 Platelet mean volume (Bld) [Entitic vol] 10.1 fL 6.2-12.[address] [facility] Work Phone: Determination of erythrocyte mean corpuscular volume (MCV)on 03-29-2022 MCV (RBC) [Entitic vol] 98.8 fL 81-[address] [facility] Work Phone: Ketones Test strip Ql (U)on 03-29-2022 Ketones Ql (U) Negative Negative [facility] Work Phone: Laboratory - Chemistry and C hemistry - challengeon 03-29-2022 Free T4 [Mass/Vol] 1.12 ng/dL 0.76-1.46 [address] [facility] Work Phone: Magnesium [Mass/Vol] 2.2 mg/dL 1.6-2.[address] [facility] Work Phone: Laboratory - Hematology and Cell countson 03-29-2022 Erythrocyte distribution width (RBC) [Entitic vol] 50.7 fL 35.1-43.[address] [facility] Work Phone: Erythrocyte distribution width (RBC) [Ratio] 14.2 % 11.6-14.[address] [facility] Work Phone: Immature granulocytes/100 WBC (Bld) 0.300 % 0.0-0.[address] [facility] Work Phone: Comment on above: IG% - Immature Granu locytes (promyelocytes, myelocytes and metamyelocytes) > 1% indicates that a LEFT SHIFT is Present. MCH (RBC) [Entitic mass] 31.0 pg 27.0-32.[address] [facility] Work Phone: Nucleated RBC/100 WBC (Bld) [Ratio] 0 % 0-[address] [facility] Work Phone: MCHC Auto (RBC) [Mass/Vol]on 03-29-2022 MCHC (RBC) [Mass/Vol] 31.3 g/dL 32-36 [facility] Work Phone: Mucus LM Ql (Urine sed)on Mucus Ql (Urine sed) 0 SEEN /hpf [facility] Work Phone: Nitrite Test strip Ql (U)on 03-29-2022 Nitrite Ql (U) Negative Negative [facility] Work Phone: Platelets bldon 03-29-2022 Platelets (Bld) [#/Vol] 209 10*3/uL 150-[address] [facility] Work Phone: Protein Test strip Ql (U)on 03-29-2022 Protein Ql (U) 100 mg/dl Negative [facility] Work Phone: Squamous epithelial cells de tection in urine sediment by light microscopyon 03-29-2022 Epithelial cells.squamous LM Ql (Urine sed) 0-5 SEEN /hpf 5-[address] [facility] Work Phone: Urine blood detectionon RBC Ql (U) 10 /ul Negative [facility] Work Phone: RBC Ql (U) 0 SEEN /hpf 0-[address] [facility] Work Phone: Urine clarityon 03-29-2022 Clarity (U) Clear Clear [facility] Work Phone: Urine color determinationon 03-29-2022 Color (U) Yellow Yellow [facility] Work Phone: Urine glucose detectionon Glucose Ql (U) Normal mg/dl Normal [facility] Work Phone: Urine leukocyte esterase det ection by dipstickon 03-29-2022 Leukocyte esterase Test strip Ql (U) 25 /ul Negative [facility] Work Phone: Urine pHon 03-29-2022 pH (U) 6.0 [pH] 5.0 - 8.[address] [facility] Work Phone: Urine sediment bacteria coun t by microscopy (number/high power field)on 03-29-2022 Bacteria LM.HPF (Urine sed) [#/Area] 0 /[HPF] None Seen [facility] Work Phone: Urine specific gravity measu rementon 03-29-2022 Specific gravity (U) [Rel density] 1.010 1.002-1.[address] [facility] Work Phone: Urobilinogen Auto test strip Ql (U)on 03-29-2022 Urobilinogen Ql (U) Normal mg/dl Normal [facility] Work Phone: .Auto Diffon 03-28-2022 Basophil, Absolute 0.0 10 3/mcL Normal 0.0-0.2 [facility] ([place]) Basophils/100 WBC (Bld) 0.3 % Normal 0.0-2.5 [facility]) Eosinophil, Absolute 0.1 10 3/mcL Normal 0.0-0.4 [facility]) Eosinophils/100 WBC (Bld) 1.6 % Normal 0.0-7.0 [facility]) Lymphocyte, Absolute 2.0 10 3/mcL Normal 0.8-3.9 [facility]) Lymphocytes/100 WBC (Bld) 24.2 % Normal 10.0-50.0 [facility] ([place] Monocyte, Absolute 0.5 10 3/mcL Normal 0.2-1.0 [facility]) Monocytes/100 WBC (Bld) 6.5 % Normal 1.7-13.0 [facility] [place] Neutrophils/100 WBC (Bld) 67.4 % Normal 37.0-80.0 [facility] ([place]) .GFRon 03-28-2022 GFR 43 ml/min/1.73sqm Normal [facility] ([place] Comment on above: Result Comment: GFR Population mean for , Non- Americans Ages 20-29 = 116 mL/min/1.73 sq.m. Ages 30-39 = 107 mL/min/1.73 sq.m. Ages 40-49 = 99 mL/min/1.73 sq.m. Ages 50-59 = 93 mL/min/1.73 sq.m. Ages 60-69 = 85 mL/min/1.73 sq.m. Ages 70+ = 75 mL/min/1.73 sq.m. Chronic Kidney Disease: Less than 60 mL/min/1.73 square meters End Stage Renal Disease: Less than 15 mL/min/1.73 square meters Performed By: #### B MP, GFR #### [address] [address] GFR Non- 35 ml/min/1.73sqm Normal [facility] ([place] Comment on above: Result Comment: GFR Population mean for , Non- Americans Ages 20-29 = 116 mL/min/1.73 sq.m. Ages 30-39 = 107 mL/min/1.73 sq.m. Ages 40-49 = 99 mL/min/1.73 sq.m. Ages 50-59 = 93 mL/min/1.73 sq.m. Ages 60-69 = 85 mL/min/1.73 sq.m. Ages 70+ = 75 mL/min/1.73 sq.m. Chronic Kidney Disease: Less than 60 mL/min/1.73 square meters End Stage Renal Disease: Less than 15 mL/min/1.73 square meters Performed By: #### B MP, GFR #### [address] [address] .MDWon 03-28-2022 Monocyte Distribution Width Not performed Normal 0.00-20.00 [facility] ([place] Comment on above: Result Comment: MDW testing performed only on adult ER patients between the ages of 18-89 years. .NEUABSon 03-28-2022 Neutrophil, Absolute 5.5 10 3/mcL Normal 2.9-6.2 [facility] ([place]) BMPon 03-28-2022 BUN/Creatinine Ratio 24 ratio Normal 7-27 [facility] ([place] Comment on above: Performed By: #### B MP, GFR #### [address] [address] Calcium [Mass/Vol] 9.2 mg/dL Normal 8.4-10.2 [facility] ([place]) Comment on above: Performed By: #### B MP, GFR #### [address] [address] Chloride [Moles/Vol] 105 mmol/L Normal 98-107 [facility] ([place] Comment on above: Performed By: #### B MP, GFR #### [address] [address] CO2 [Moles/Vol] 28 mmol/L Normal 23-31 [facility] ([place] Comment on above: Performed By: #### B MP, GFR #### [address] [address] Creatinine [Mass/Vol] 1.43 mg/dL High 0.55-1.02 [facility] ([place]) Comment on above: Performed By: #### B MP, GFR #### [address] [address] Electrolyte Balance 4.0 mEq/L Normal 4.0-15.0 [facility] ([place]) Comment on above: Performed By: #### B MP, GFR #### [address] [address] Glucose [Mass/Vol] 86 mg/dL Normal 83-110 [facility] ([place] Comment on above: Performed By: #### B MP, GFR #### [address] [address] Potassium [Moles/Vol] 3.4 mmol/L Low 3.5-5.1 [facility] ([place] Comment on above: Performed By: #### B MP, GFR #### [address] [address] Sodium [Moles/Vol] 137 mmol/L Normal 136-145 [facility] ([place] Comment on above: Performed By: #### B MP, GFR #### [address] [address] Urea nitrogen [Mass/Vol] 35 mg/dL High 7-18 [facility]) Comment on above: Performed By: #### B MP, GFR #### [address] [address] CBCon 03-28-2022 Erythrocyte distribution width (RBC) [Ratio] 14.9 % High 11.5-14.5 [facility]) Hematocrit (Bld) [Volume fraction] 34.7 % Low 37.0-47.0 [facility]) Hgb 11.6 G/dL Low 12.0-16.0 [facility]) MCH (RBC) [Entitic mass] 30.7 pg Normal 27.0-31.2 [facility]) MCHC 33.4 G/dL Normal 33.0-37.0 [facility]) MCV (RBC) [Entitic vol] 92.1 fL Normal 80.0-94.0 [facility]) Platelet 231 10 3/mcL Normal 130-400 [facility]) Platelet mean volume (Bld) [Entitic vol] 8.8 fL Normal 7.4-10.4 [facility]) RBC 3.77 10 6/mcL Low 4.20-5.40 [facility]) WBC 8.2 10 3/mcL Normal 4.6-10.8 [facility]) [id number] 03-28-2022 Date of Onset [id number] Invalid Interpretation Code [facility] [place] Comment on above: Performed By: #### C OVD19 #### [id number] [place] [address] Employed in Healthcare No [facility] ([place] Comment on above: Performed By: #### C OVD19 #### [place] [address] First Test Unknown [facility] ([place] Comment on above: Performed By: #### C OVD19 #### [place] [address] Hospitalized Yes [facility] ([place] Comment on above: Performed By: #### C OVD19 #### [address] [address] ICU No [facility] ([place] Comment on above: Performed By: #### C OVD19 #### [place] [address] Not [facility] ([place] Comment on above: Performed By: #### C OVD19 #### [place] [address] Resides in Congregate Care Setting No [facility] ([place] Comment on above: Performed By: #### C OVD19 #### [place] [address] SARS-CoV-2 (COVID-19) RNA ALEXANDRE+probe Ql (Unsp spec) Negative Normal Negative [facility] ([place] Comment on above: Performed By: #### C OVD19 #### [place] [address] SARS-CoV-2 (COVID-19) RNA ALEXANDRE+probe Ql (Unsp spec) [facility] ([place] Comment on above: Result Comment: Nega tive results do not preclude SARS-CoV-2 infection and should not be used as the sole basis for patient management decisions. Negative results must be combined with clinical observations, patient history, and epidemiological information. There is a risk of false negative values resulting from improperly collected, transported, or handled specimens. There is a risk of false negative values due to the presence of sequence variants in the pathogen targets of the assay, procedural errors, amplification inhibitors in specimens, or inadequate numbers of organisms for amplification. ANTON SARS-CoV-2 Assay is a Real-Time reverse-transcriptase polymerase chain reaction (RT-PCR) based qualitative in vitro diagnostic test intended for the qualitative detection of nucleic acid from the SARS-CoV-2 in nasopharyngeal swab specimens collected from individuals suspected of COVID-19 by their healthcare provider. Testing is limited to laboratories certified under the Clinical Laboratory Improvement Amendments of 1988 (CLIA), 42 U.S.C. ?263a, to perform moderate and high complexity tests. COVID-19 Int Performed By: #### C OVD19 #### [address] [address] Symptomatic as Defined by [facility] No Normal [facility] [place] Comment on above: Performed By: #### C OVD19 #### [address] [address] LABORATORYOrdered By: Trever Ann on 03-28-2022 Blood Glucose Testing Reason Routine (03/28/22 11:08 AM) [facility] Work Phone: Glucose [Mass/Vol] 146 mg/dL Invalid Interpretation Code 82 - 115 mg/dL [facility] Work Phone: LABORATORYOrdered By: Dorie Anna on 03-28-2022 ADMITTED TO INTENSIVE CARE UNIT FOR CONDITION OF INTEREST:FIND:PT:^DANUTA ENT:ORD: No (03/28/22 8:34 AM) Invalid Interpretation Code AO Auto Urine SS EMPLOYED IN A HEALTHCARE SETTING:FIND:PT:^PATIE NT:ORD: No (03/28/22 8:34 AM) Invalid Interpretation Code AO Auto Urine SS FIRST TEST FOR CONDITION OF INTEREST:FIND:PT:^DANUTA ENT:ORD: Unknown (03/28/22 8:34 AM) Invalid Interpretation Code AO Auto Urine SS HAS SYMPTOMS RELATED TO CONDITION OF INTEREST:FIND:PT:^DANUTA ENT:ORD: No (03/28/22 8:34 AM) Invalid Interpretation Code AO Auto Urine SS Illness or injury onset date and time 20220328 Invalid Interpretation Code AO Auto Urine SS Patient was hospitalized because of this condition Yes (03/28/22 8:34 AM) Invalid Interpretation Code AO Auto Urine SS status Not (03/28/22 8:34 AM) Invalid Interpretation Code AO Auto Urine SS RESIDES IN A CONGREGATE CARE SETTING:FIND:PT:^PATIE NT:ORD: No (03/28/22 8:34 AM) Invalid Interpretation Code AO Auto Urine SS SARS-CoV-2 (COVID-19) RNA ALEXANDRE+probe Ql (Unsp spec) Negative results do not preclude SARS-CoV-2 infection and should not be used as the sole basis for patient management decisions. Negative results must be combined with clinical observations, patient history, and epidemiological information.There is a risk of false negative values resulting from improperly collected, transported, or handled specimens.There is a risk of false negative values due to the presence of sequence variants in the pathogen targets of the assay, procedural errors, amplification inhibitors in specimens, or inadequate numbers of organisms for amplification.ANTON SARS-CoV-2 Assay is a Real-Time reverse-transcriptase polymerase chain reaction (RT-PCR) based qualitative in vitro diagnostic test intended for the qualitative detection of nucleic acid from the SARS-CoV-2 in nasopharyngeal swab specimens collected from individuals suspected of COVID-19 by their healthcare provider. Testing is limited to laboratories certified under the Clinical Laboratory Improvement Amendments of 1988 (CLIA), 42 U.S.C. 263a, to perform moderate and high complexity tests. Invalid Interpretation Code AO Auto Urine SS Basophil, Absolute 0.0 103/mcL Invalid Interpretation Code 0.0 - 0.2 10^3/mcL AO Workflow SS Basophils/100 WBC (Bld) 0.3 % Invalid Interpretation Code 0.0 - 2.5 % AO Workflow SS Eosinophil, Absolute 0.1 103/mcL Invalid Interpretation Code 0.0 - 0.4 10^3/mcL AO Workflow SS Eosinophils/100 WBC (Bld) 1.6 % Invalid Interpretation Code 0.0 - 7.0 % AO Workflow SS Erythrocyte distribution width (RBC) [Ratio] 14.9 % Invalid Interpretation Code 11.5 - 14.5 % AO Workflow SS Hematocrit (Bld) [Volume fraction] 34.7 % Invalid Interpretation Code 37.0 - 47.0 % AO Workflow SS Hemoglobin (Bld) [Mass/Vol] 11.6 G/dL Invalid Interpretation Code 12.0 - 16.0 G/dL AO Workflow SS Lymphocyte, Absolute 2.0 103/mcL Invalid Interpretation Code 0.8 - 3.9 10^3/mcL AO Workflow SS Lymphocytes/100 WBC (Bld) 24.2 % Invalid Interpretation Code 10.0 - 50.0 % AO Workflow SS MCH (RBC) [Entitic mass] 30.7 pg Invalid Interpretation Code 27.0 - 31.2 pg AO Workflow SS MCHC 33.4 G/dL Invalid Interpretation Code 33.0 - 37.0 G/dL AO Workflow SS MCV (RBC) [Entitic vol] 92.1 fL Invalid Interpretation Code 80.0 - 94.0 fL AO Workflow SS Monocyte, Absolute 0.5 103/mcL Invalid Interpretation Code 0.2 - 1.0 10^3/mcL AO Workflow SS Monocytes/100 WBC (Bld) 6.5 % Invalid Interpretation Code 1.7 - 13.0 % AO Workflow SS Neutrophil, Absolute 5.5 103/mcL Invalid Interpretation Code 2.9 - 6.2 10^3/mcL AO Workflow SS Neutrophils/100 WBC (Bld) 67.4 % Invalid Interpretation Code 37.0 - 80.0 % AO Workflow SS Platelet mean volume (Bld) [Entitic vol] 8.8 fL Invalid Interpretation Code 7.4 - 10.4 fL AO Workflow SS Platelets (Bld) [#/Vol] 231 103/mcL Invalid Interpretation Code 130 - 400 10^3/mcL AO Workflow SS RBC (Bld) [#/Vol] 3.77 106/mcL Invalid Interpretation Code 4.20 - 5.40 10^6/mcL AO Workflow SS WBC 8.2 103/mcL Invalid Interpretation Code 4.6 - 10.8 10^3/mcL AO Workflow SS LABORATORYOrdered By: SYSTEM SYSTEM on 03-28-2022 Monocyte distribution width Auto (Bld) [Entitic vol] Not Performed 1 *NA* (03/28/22 8:17 AM) Invalid Interpretation Code 0.00 - 20.00 AO Hematology S Comment on above: Result Comment: MDW testing performed only on adult ER patients between the ages of 18-89 years. GFR 43 ml/min/1.73sqm Invalid Interpretation Code AO Chemistry S GFR Non- 35 ml/min/1.73sqm Invalid Interpretation Code AO Chemistry S LABORATORYOrdered By: Trever Hodgson on 03-28-2022 Blood Glucose Interventions Administered food/juice (03/28/22 6:43 AM) [facility] Work Phone: Blood Glucose Testing Reason Routine (03/28/22 6:43 AM) [facility] Work Phone: Glucose [Mass/Vol] 79 mg/dL Invalid Interpretation Code 82 - 115 mg/dL [facility] Work Phone: LABORATORYOrdered By: Michelle Joe on 03-28-2022 Calcium [Mass/Vol] 9.2 mg/dL Invalid Interpretation Code 8.4 - 10.2 mg/dL AO ADM SS Chloride [Moles/Vol] 105 mmol/L Invalid Interpretation Code 98 - 107 mmol/L AO ADM SS CO2 [Moles/Vol] 28 mmol/L Invalid Interpretation Code 23 - 31 mmol/L AO ADM SS Creatinine [Mass/Vol] 1.43 mg/dL Invalid Interpretation Code 0.55 - 1.02 mg/dL AO ADM SS Electrolyte Balance 4.0 mEq/L Invalid Interpretation Code 4.0 - 15.0 mEq/L AO ADM SS Glucose [Mass/Vol] 86 mg/dL Invalid Interpretation Code 83 - 110 mg/dL AO ADM SS Potassium [Moles/Vol] 3.4 mmol/L Invalid Interpretation Code 3.5 - 5.1 mmol/L AO ADM SS Sodium [Moles/Vol] 137 mmol/L Invalid Interpretation Code 136 - 145 mmol/L AO ADM SS Urea nitrogen [Mass/Vol] 35 mg/dL Invalid Interpretation Code 7 - 18 mg/dL AO ADM SS Urea nitrogen/Creatinine [Mass ratio] 24 ratio Invalid Interpretation Code 7 - 27 ratio AO ADM SS .Auto Diffon 03-27-2022 Basophil, Absolute 0.0 10 3/mcL Normal 0.0-0.2 [facility] ([place]) Comment on above: Performed By: #### B MP, GFR ####[place] [place], [place] [address] Basophils/100 WBC (Bld) 0.1 % Normal 0.0-2.5 [facility] ([place]) Comment on above: Performed By: #### B MP, GFR ####[address] [place], [place] [address] Eosinophil, Absolute 0.0 10 3/mcL Normal 0.0-0.4 [facility] ([place]) Comment on above: Performed By: #### B MP, GFR ####[address] [place], [place] [address] Eosinophils/100 WBC (Bld) 0.0 % Normal 0.0-7.0 [facility] ([place] Comment on above: Performed By: #### B MP, GFR ####[address] [place], [place] [address] Lymphocyte, Absolute 0.7 10 3/mcL Low 0.8-3.9 [facility] ([place]) Comment on above: Performed By: #### B MP, GFR ####[address] [place], [place] [address] Lymphocytes/100 WBC (Bld) 10.3 % Normal 10.0-50.0 [facility] ([place] Comment on above: Performed By: #### B MP, GFR ####[address] [place], [place] [address] Monocyte, Absolute 0.2 10 3/mcL Normal 0.2-1.0 [facility] ([place]) Comment on above: Performed By: #### B MP, GFR ####[address] [place], [place] [address] Monocytes/100 WBC (Bld) 2.9 % Normal 1.7-13.0 [facility] ([place] Comment on above: Performed By: #### B MP, GFR ####[address] [place], [place] [address] Neutrophils/100 WBC (Bld) 86.7 % High 37.0-80.0 [facility] ([place] Comment on above: Performed By: #### B MP, GFR ####[address] [place], [place] [address] .GFRon 03-27-2022 GFR Non- 34 ml/min/1.73sqm Normal [facility] ([place] Comment on above: Result Comment: GFR Population mean for , Non- Americans Ages 20-29 = 116 mL/min/1.73 sq.m. Ages 30-39 = 107 mL/min/1.73 sq.m. Ages 40-49 = 99 mL/min/1.73 sq.m. Ages 50-59 = 93 mL/min/1.73 sq.m. Ages 60-69 = 85 mL/min/1.73 sq.m. Ages 70+ = 75 mL/min/1.73 sq.m. Chronic Kidney Disease: Less than 60 mL/min/1.73 square meters End Stage Renal Disease: Less than 15 mL/min/1.73 square meters Performed By: #### B MP, GFR ####[address] [place], [place] [address] GFR 41 ml/min/1.73sqm Normal [facility] ([place] Comment on above: Result Comment: GFR Population mean for , Non- Americans Ages 20-29 = 116 mL/min/1.73 sq.m. Ages 30-39 = 107 mL/min/1.73 sq.m. Ages 40-49 = 99 mL/min/1.73 sq.m. Ages 50-59 = 93 mL/min/1.73 sq.m. Ages 60-69 = 85 mL/min/1.73 sq.m. Ages 70+ = 75 mL/min/1.73 sq.m. Chronic Kidney Disease: Less than 60 mL/min/1.73 square meters End Stage Renal Disease: Less than 15 mL/min/1.73 square meters Performed By: #### B MP, GFR ####[address] [place], [place] [address] .MDWon 03-27-2022 Monocyte Distribution Width Not performed Normal 0.00-20.00 [facility] ([place] Comment on above: Result Comment: MDW testing performed only on adult ER patients between the ages of 18-89 years. Performed By: #### B MP, GFR ####[address] [place], [place] [address] .NEUABSon 03-27-2022 Neutrophil, Absolute 6.2 10 3/mcL Normal 2.9-6.2 [facility] ([place]) Comment on above: Performed By: #### B MP, GFR ####[address] [place], [place] [address] BMPon 03-27-2022 BUN/Creatinine Ratio 22 ratio Normal 7-27 [facility] ([place] Comment on above: Performed By: #### B MP, GFR ####[address] [place], [place] [address] Calcium [Mass/Vol] 10.0 mg/dL Normal 8.4-10.2 [facility] ([place]) Comment on above: Performed By: #### B MP, GFR ####[address] [place], [place] [address] Chloride [Moles/Vol] 102 mmol/L Normal 98-107 [facility] ([place]) Comment on above: Performed By: #### B MP, GFR ####[address] [place], [place] [address] CO2 [Moles/Vol] 25 mmol/L Normal 23-31 [facility] ([place] Comment on above: Performed By: #### B MP, GFR ####[address] [place], [place] [address] Creatinine [Mass/Vol] 1.47 mg/dL High 0.55-1.02 [facility] ([place]) Comment on above: Performed By: #### B MP, GFR ####[address] [place], [place] [address] Electrolyte Balance 11.0 mEq/L Normal 4.0-15.0 [facility] ([place]) Comment on above: Performed By: #### B MP, GFR ####[address] [place], [place] [address] Glucose [Mass/Vol] 206 mg/dL High 83-110 [facility] ([place]) Comment on above: Performed By: #### B MP, GFR ####[address] [place], [place] [address] Potassium [Moles/Vol] 4.0 mmol/L Normal 3.5-5.1 [facility] ([place]) Comment on above: Performed By: #### B MP, GFR ####[address] [place], [place] [address] Sodium [Moles/Vol] 138 mmol/L Normal 136-145 [facility] ([place]) Comment on above: Performed By: #### B MP, GFR ####[address] [place], [place] [address] Urea nitrogen [Mass/Vol] 33 mg/dL High 7-18 [facility] ([place] Comment on above: Performed By: #### B MP, GFR ####[address] [place], [place] [address] CBCon 03-27-2022 Erythrocyte distribution width (RBC) [Ratio] 14.9 % High 11.5-14.5 [facility] ([place] Comment on above: Performed By: #### B MP, GFR ####[address] [place], [place] [address] Hematocrit (Bld) [Volume fraction] 34.4 % Low 37.0-47.0 [facility] ([place] Comment on above: Performed By: #### B MP, GFR ####[address] [place], [place] [address] Hgb 11.7 G/dL Low 12.0-16.0 [facility] ([place] Comment on above: Performed By: #### B MP, GFR ####[address] [place], [place] [address] MCH (RBC) [Entitic mass] 31.4 pg High 27.0-31.2 [facility] ([place] Comment on above: Performed By: #### B MP, GFR ####[address] [place], [place] [address] MCHC 34.1 G/dL Normal 33.0-37.0 [facility] ([place] Comment on above: Performed By: #### B MP, GFR ####[address] [place], [place] [address] MCV (RBC) [Entitic vol] 92.1 fL Normal 80.0-94.0 [facility] [place] Comment on above: Performed By: #### B MP, GFR ####[address] [place], [place] [address] Platelet 238 10 3/mcL Normal 130-400 [facility] ([place] Comment on above: Performed By: #### B MP, GFR ####[address] [place], [place] [address] Platelet mean volume (Bld) [Entitic vol] 8.7 fL Normal 7.4-10.4 [facility] ([place] Comment on above: Performed By: #### B MP, GFR ####[address] [place], [place] [address] RBC 3.74 10 6/mcL Low 4.20-5.40 [facility] [place] Comment on above: Performed By: #### B MP, GFR ####[address] [place], [place] [address] WBC 7.1 10 3/mcL Normal 4.6-10.8 [facility] ([place] Comment on above: Performed By: #### B MP, GFR ####[address] [place], [place] [address] LABORATORYOrdered By: Valdo Saha on 03-27-2022 Glucose [Mass/Vol] 127 mg/dL Invalid Interpretation Code 82 - 115 mg/dL [facility] Work Phone: LABORATORYOrdered By: Yancy Guo on 03-27-2022 Basophil, Absolute 0.0 103/mcL Invalid Interpretation Code 0.0 - 0.2 10^3/mcL AO Workflow SS Basophils/100 WBC (Bld) 0.1 % Invalid Interpretation Code 0.0 - 2.5 % AO Workflow SS Calcium [Mass/Vol] 10.0 mg/dL Invalid Interpretation Code 8.4 - 10.2 mg/dL AO ADM SS Chloride [Moles/Vol] 102 mmol/L Invalid Interpretation Code 98 - 107 mmol/L AO ADM SS CO2 [Moles/Vol] 25 mmol/L Invalid Interpretation Code 23 - 31 mmol/L AO ADM SS Creatinine [Mass/Vol] 1.47 mg/dL Invalid Interpretation Code 0.55 - 1.02 mg/dL AO ADM SS Electrolyte Balance 11.0 mEq/L Invalid Interpretation Code 4.0 - 15.0 mEq/L AO ADM SS Eosinophil, Absolute 0.0 103/mcL Invalid Interpretation Code 0.0 - 0.4 10^3/mcL AO Workflow SS Eosinophils/100 WBC (Bld) 0.0 % Invalid Interpretation Code 0.0 - 7.0 % AO Workflow SS Erythrocyte distribution width (RBC) [Ratio] 14.9 % Invalid Interpretation Code 11.5 - 14.5 % AO Workflow SS Glucose [Mass/Vol] 206 mg/dL Invalid Interpretation Code 83 - 110 mg/dL AO ADM SS Hematocrit (Bld) [Volume fraction] 34.4 % Invalid Interpretation Code 37.0 - 47.0 % AO Workflow SS Hemoglobin (Bld) [Mass/Vol] 11.7 G/dL Invalid Interpretation Code 12.0 - 16.0 G/dL AO Workflow SS Lymphocyte, Absolute 0.7 103/mcL Invalid Interpretation Code 0.8 - 3.9 10^3/mcL AO Workflow SS Lymphocytes/100 WBC (Bld) 10.3 % Invalid Interpretation Code 10.0 - 50.0 % AO Workflow SS MCH (RBC) [Entitic mass] 31.4 pg Invalid Interpretation Code 27.0 - 31.2 pg AO Workflow SS MCHC 34.1 G/dL Invalid Interpretation Code 33.0 - 37.0 G/dL AO Workflow SS MCV (RBC) [Entitic vol] 92.1 fL Invalid Interpretation Code 80.0 - 94.0 fL AO Workflow SS Monocyte, Absolute 0.2 103/mcL Invalid Interpretation Code 0.2 - 1.0 10^3/mcL AO Workflow SS Monocytes/100 WBC (Bld) 2.9 % Invalid Interpretation Code 1.7 - 13.0 % AO Workflow SS Neutrophil, Absolute 6.2 103/mcL Invalid Interpretation Code 2.9 - 6.2 10^3/mcL AO Workflow SS Neutrophils/100 WBC (Bld) 86.7 % Invalid Interpretation Code 37.0 - 80.0 % AO Workflow SS Platelet mean volume (Bld) [Entitic vol] 8.7 fL Invalid Interpretation Code 7.4 - 10.4 fL AO Workflow SS Platelets (Bld) [#/Vol] 238 103/mcL Invalid Interpretation Code 130 - 400 10^3/mcL AO Workflow SS Potassium [Moles/Vol] 4.0 mmol/L Invalid Interpretation Code 3.5 - 5.1 mmol/L AO ADM SS RBC (Bld) [#/Vol] 3.74 106/mcL Invalid Interpretation Code 4.20 - 5.40 10^6/mcL AO Workflow SS Sodium [Moles/Vol] 138 mmol/L Invalid Interpretation Code 136 - 145 mmol/L AO ADM SS Urea nitrogen [Mass/Vol] 33 mg/dL Invalid Interpretation Code 7 - 18 mg/dL AO ADM SS Urea nitrogen/Creatinine [Mass ratio] 22 ratio Invalid Interpretation Code 7 - 27 ratio AO ADM SS WBC 7.1 103/mcL Invalid Interpretation Code 4.6 - 10.8 10^3/mcL AO Workflow SS LABORATORYOrdered By: SYSTEM SYSTEM on 03-27-2022 GFR 41 ml/min/1.73sqm Invalid Interpretation Code AO Chemistry S GFR Non- 34 ml/min/1.73sqm Invalid Interpretation Code AO Chemistry S Monocyte distribution width Auto (Bld) [Entitic vol] Not Performed 2 *NA* (03/27/22 5:22 AM) Invalid Interpretation Code 0.00 - 20.00 AO Hematology S Comment on above: Result Comment: MDW testing performed only on adult ER patients between the ages of 18-89 years. Gel ABOon 03-26-2022 ABO/Rh Interp Positive Invalid Interpretation Code [facility], [facility] ([place] Comment on above: Performed By: #### A ERIK KESSLER ####[address] [place], [place] [address] Gel ABSon 03-26-2022 Antibody Screen Gel Negative Normal [facility] ([place]) Comment on above: Performed By: #### A DEANDRA KESSLERG ####[address] [place], [place] [address] LABORATORYOrdered By: Adamaris Kincaid on 03-26-2022 Blood Glucose Testing Reason Routine (03/26/22 8:22 PM) [facility] Work Phone: LABORATORYOrdered By: Mark Galvez on 03-26-2022 ABO/Rh Interp Positive Invalid Interpretation Code AO BB SS Antibody Screen Gel Negative ABSC (03/26/22 10:57 AM) Invalid Interpretation Code AO BB SS No Panel Informationon 03-26 AFS Acid Fast Smear from Concentrated Specimen: Negative [facility] Work Phone: Culture Tissue No growth to date [facility] Work Phone: FUNSM No fungal elements o bserved by calcofluor white stain. [facility] Work Phone: GS No organisms seen. [facility] Work Phone: XR KNEE 1 OR 2 VIEWS LEFTon 03-26-2022 XR KNEE 1 OR 2 VIEWS LEFT ORIGINAL EXAMINATION: POSTOPERATIVE KNEE TECHNIQUE: 2 views of the left knee were obtained. COMPARISON: None. HISTORY: ORDERING SYSTEM PROVIDED HISTORY: Reason for Exam: Status Post Arthroplasty FINDINGS: There is normal mineralization. No acute fracture or dislocation is seen. The patient is status post left knee replacement with appropriate positioning of the prosthesis. There are postsurgical changes with a small joint effusion. IMPRESSION: Status post left knee replacement. Interpreted by: Beto Macdonald MD Preliminary Report By: Beto Macdonald MD Electronically signed By Beto Macdonald MD Dictated Date: 03/26/2022 3:20:42 PM Prelim Date: 03/26/2022 3:22:03 PM Sign Date: 03/26/2022 3:22:03 PM Ordering Provider: KEITH RODRIGEZ Normal [facility] ([place] .Auto Diffon 03-12-2022 Basophil, Absolute 0.0 10 3/mcL Normal 0.0-0.2 [facility] ([place]) Comment on above: Performed By: #### B MP, ALB, GFR, ABOG, ANSG ####[address] [place], [place] [address] Basophils/100 WBC (Bld) 0.5 % Normal 0.0-2.5 [facility] ([place] Comment on above: Performed By: #### B MP, ALB, GFR, ABOG, ANSG ####[address] [place], [place] [address] Eosinophil, Absolute 0.0 10 3/mcL Normal 0.0-0.4 [facility] ([place]) Comment on above: Performed By: #### B MP, ALB, GFR, ABOG, ANSG ####[address] [place], [place] [address] Eosinophils/100 WBC (Bld) 0.4 % Normal 0.0-7.0 [facility] ([place] Comment on above: Performed By: #### B MP, ALB, GFR, ABOG, ANSG ####[address] [place], [place] [address] Lymphocyte, Absolute 1.2 10 3/mcL Normal 0.8-3.9 [facility] ([place]) Comment on above: Performed By: #### B MP, ALB, GFR, ABOG, ANSG ####[address] [place], [place] [address] Lymphocytes/100 WBC (Bld) 26.3 % Normal 10.0-50.0 [facility] ([place] Comment on above: Performed By: #### B MP, ALB, GFR, ABOG, ANSG ####[address] [place], [place] [address] Monocyte, Absolute 0.3 10 3/mcL Normal 0.2-1.0 [facility] ([place]) Comment on above: Performed By: #### B MP, ALB, GFR, ABOG, ANSG ####[address] [place], [place] [address] Monocytes/100 WBC (Bld) 6.1 % Normal 1.7-13.0 [facility] ([place] Comment on above: Performed By: #### B MP, ALB, GFR, ABOG, ANSG ####[address] [place], [place] [address] Neutrophils/100 WBC (Bld) 66.7 % Normal 37.0-80.0 [facility] ([place] Comment on above: Performed By: #### B MP, ALB, GFR, ABOG, ANSG ####[address] [place], [place] [address] .GFRon 03-12-2022 GFR Non- 42 ml/min/1.73sqm Normal [facility] ([place] Comment on above: Result Comment: GFR Population mean for , Non- Americans Ages 20-29 = 116 mL/min/1.73 sq.m. Ages 30-39 = 107 mL/min/1.73 sq.m. Ages 40-49 = 99 mL/min/1.73 sq.m. Ages 50-59 = 93 mL/min/1.73 sq.m. Ages 60-69 = 85 mL/min/1.73 sq.m. Ages 70+ = 75 mL/min/1.73 sq.m. Chronic Kidney Disease: Less than 60 mL/min/1.73 square meters End Stage Renal Disease: Less than 15 mL/min/1.73 square meters Performed By: #### B MP, ALB, GFR, ABOG, ANSG ####[address] [place], [place] [address] GFR 50 ml/min/1.73sqm Normal [facility] ([place] Comment on above: Result Comment: GFR Population mean for , Non- Americans Ages 20-29 = 116 mL/min/1.73 sq.m. Ages 30-39 = 107 mL/min/1.73 sq.m. Ages 40-49 = 99 mL/min/1.73 sq.m. Ages 50-59 = 93 mL/min/1.73 sq.m. Ages 60-69 = 85 mL/min/1.73 sq.m. Ages 70+ = 75 mL/min/1.73 sq.m. Chronic Kidney Disease: Less than 60 mL/min/1.73 square meters End Stage Renal Disease: Less than 15 mL/min/1.73 square meters Performed By: #### B MP, ALB, GFR, ABOG, ANSG ####[address] [place], [place] [address] .MDWon 03-12-2022 Monocyte Distribution Width Not performed Normal 0.00-20.00 [facility] ([place] Comment on above: Result Comment: MDW testing performed only on adult ER patients between the ages of 18-89 years. Performed By: #### B MP, ALB, GFR, ABOG, ANSG #### [address] [address] .NEUABSon 03-12-2022 Neutrophil, Absolute 3.2 10 3/mcL Normal 2.9-6.2 [facility] ([place]) Comment on above: Performed By: #### B MP, ALB, GFR, ABOG, ANSG ####[address] [place], [place] [address] A1Con 03-12-2022 HbA1c (Bld) [Mass fraction] 6.1 % Normal 4.3-6.4 [facility] ([place] Comment on above: Performed By: #### A 1C #### [address] [address] ALBon 03-12-2022 Albumin Level 3.6 G/dL Normal 3.4-4.8 [facility] ([place]) Comment on above: Order Comment: FORWA RD TO DR CANDY HOFFMAN, GARMENT [employer]M ASSEMBLER Performed By: #### B MP, ALB, GFR, ABOG, ANSG ####[facility] [place], [place] [address] BMPon 03-12-2022 BUN/Creatinine Ratio 23 ratio Normal 7-27 [facility] ([place]) Comment on above: Order Comment: FORWA RD TO DR CANDY HOFFMAN, GARMENT FORM ASSEMBLER Performed By: #### B MP, ALB, GFR, ABOG, ANSG ####[address] [place], [place] [address] Calcium [Mass/Vol] 10.5 mg/dL High 8.4-10.2 [facility] ([place]) Comment on above: Order Comment: FORWA RD TO DR CANDY HOFFMAN, GARMENT [employer]M ASSEMBLER Performed By: #### B MP, ALB, GFR, ABOG, ANSG ####[address] [place], [place] [address] Chloride [Moles/Vol] 108 mmol/L High 98-107 [facility] ([place]) Comment on above: Order Comment: FORWA RD TO DR CANDY HOFFMAN, GARMENT [employer]M ASSEMBLER Performed By: #### B MP, ALB, GFR, ABOG, ANSG ####[address] [place], [place] [address] CO2 [Moles/Vol] 28 mmol/L Normal 23-31 [facility] ([place] Comment on above: Order Comment: FORWA RD TO DR CANDY HOFFMAN, GARMENT [employer]M ASSEMBLER Performed By: #### B MP, ALB, GFR, ABOG, ANSG ####[address] [place], [place] [address] Creatinine [Mass/Vol] 1.24 mg/dL High 0.55-1.02 [facility] ([place]) Comment on above: Order Comment: FORWA RD TO DR CANDY HOFFMAN, GARMENT [employer]M ASSEMBLER Performed By: #### B MP, ALB, GFR, ABOG, ANSG ####[address] [place], [place] [address] Electrolyte Balance 6.0 mEq/L Normal 4.0-15.0 [facility] ([place]) Comment on above: Order Comment: FORWA RD TO DR CANDY HOFFMAN, GARMENT [employer]M ASSEMBLER Performed By: #### B MP, ALB, GFR, ABOG, ANSG ####[address] [place], [place] [address] Glucose [Mass/Vol] 148 mg/dL High 83-110 [facility] ([place]) Comment on above: Order Comment: FORWA RD TO DR CANDY HOFFMAN, GARMENT [employer]M ASSEMBLER Performed By: #### B MP, ALB, GFR, ABOG, ANSG ####[address] [place], [place] [address] Potassium [Moles/Vol] 3.8 mmol/L Normal 3.5-5.1 [facility] ([place]) Comment on above: Order Comment: FORWA RD TO DR CANDY HOFFMAN, GARMENT [employer]M ASSEMBLER Performed By: #### B MP, ALB, GFR, ABOG, ANSG ####[address] [place], [place] [address] Sodium [Moles/Vol] 142 mmol/L Normal 136-145 [facility] ([place]) Comment on above: Order Comment: FORWA RD TO DR CANDY HOFFMAN, GARMENT FORM ASSEMBLER Performed By: #### B MP, ALB, GFR, ABOG, ANSG ####[place] [address] Urea nitrogen [Mass/Vol] 29 mg/dL High 7-18 [facility] ([place] Comment on above: Order Comment: FORWA RD TO DR CANDY HOFFMAN, GARMENT [employer]M ASSEMBLER Performed By: #### B MP, ALB, GFR, ABOG, ANSG ####[place] [address] CBCon 03-12-2022 Erythrocyte distribution width (RBC) [Ratio] 14.5 % Normal 11.5-14.5 [facility] ([place] Comment on above: Order Comment: Pre-A dmission Testing FORWARD TO DR CANDY HOFFMAN G[employer]MENT [employer] ASSEMBLER Performed By: #### B MP, ALB, GFR, ABOG, ANSG #### [place] [address] Hematocrit (Bld) [Volume fraction] 35.6 % Low 37.0-47.0 [facility] ([place] Comment on above: Order Comment: Pre-A dmission Testing FORWARD TO DR CANDY HOFFMAN [employer]MENT [employer]SEMBLER Performed By: #### B MP, ALB, GFR, ABOG, ANSG #### [place] [address] Hgb 12.0 G/dL Normal 12.0-16.0 [facility] ([place] Comment on above: Order Comment: Pre-A dmission Testing FORWARD TO DR CANDY HOFFMAN G[employer]MENT [employer]M [employer]SEMBLER Performed By: #### B MP, ALB, GFR, ABOG, ANSG #### [place] [address] MCH (RBC) [Entitic mass] 31.1 pg Normal 27.0-31.2 [facility] ([place] Comment on above: Order Comment: Pre-A dmission Testing FORWARD TO DR CANDY HOFFMAN, GARMENT [employer]M ASSEMBLER Performed By: #### B MP, ALB, GFR, ABOG, ANSG #### [place] [address] MCHC 33.6 G/dL Normal 33.0-37.0 [facility] ([place] Comment on above: Order Comment: Pre-A dmission Testing FORWARD TO DR CANDY HOFFMAN, GARMENT [employer]M ASSEMBLER Performed By: #### B MP, ALB, GFR, ABOG, ANSG #### [address] [address] MCV (RBC) [Entitic vol] 92.6 fL Normal 80.0-94.0 [facility] ([place] Comment on above: Order Comment: Pre-A dmission Testing FORWARD TO DR CANDY HOFFMAN, GARMENT [employer]M ASSEMBLER Performed By: #### B MP, ALB, GFR, ABOG, ANSG #### [address] [address] Platelet 230 10 3/mcL Normal 130-400 [facility] ([place] Comment on above: Order Comment: Pre-A dmission Testing FORWARD TO DR CANDY HOFFMAN, GARMENT [employer]M ASSEMBLER Performed By: #### B MP, ALB, GFR, ABOG, ANSG #### [address] [address] Platelet mean volume (Bld) [Entitic vol] 9.1 fL Normal 7.4-10.4 [facility] ([place] Comment on above: Order Comment: Pre-A dmission Testing FORWARD TO DR CANDY HOFFMAN, GARMENT [employer]M ASSEMBLER Performed By: #### B MP, ALB, GFR, ABOG, ANSG #### [address] [address] RBC 3.85 10 6/mcL Low 4.20-5.40 [facility] ([place] Comment on above: Order Comment: Pre-A dmission Testing FORWARD TO DR CANDY HOFFMAN, GARMENT [employer]M ASSEMBLER Performed By: #### B MP, ALB, GFR, ABOG, ANSG #### [address] [address] WBC 4.7 10 3/mcL Normal 4.6-10.8 [facility] ([place] Comment on above: Order Comment: Pre-A dmission Testing FORWARD TO DR CANDY HOFFMAN, GARMENT [employer]M ASSEMBLER Performed By: #### B MP, ALB, GFR, ABOG, ANSG #### [place] [address] [place], [place] [address] Gel ABOon 03-12-2022 ABO/Rh Interp Positive Invalid Interpretation Code [facility] ([place] Comment on above: Performed By: #### B MP, ALB, GFR, ABOG, ANSG ####[address] [place], [place] [address] Gel ABSon 03-12-2022 Antibody Screen Gel Negative Normal [facility] ([place]) Comment on above: Performed By: #### B MP, ALB, GFR, ABOG, ANSG ####[address] [place], [place] [address] LABORATORYOrdered By: Yancy Guo on 03-12-2022 ABO/Rh Interp Positive Invalid Interpretation Code AO BB SS Albumin BCP dye [Mass/Vol] 3.6 G/dL Invalid Interpretation Code 3.4 - 4.8 G/dL AO ADM SS Antibody Screen Gel Negative ABSC (03/12/22 11:59 AM) Invalid Interpretation Code AO BB SS Calcium [Mass/Vol] 10.5 mg/dL Invalid Interpretation Code 8.4 - 10.2 mg/dL AO ADM SS Chloride [Moles/Vol] 108 mmol/L Invalid Interpretation Code 98 - 107 mmol/L AO ADM SS CO2 [Moles/Vol] 28 mmol/L Invalid Interpretation Code 23 - 31 mmol/L AO ADM SS Creatinine [Mass/Vol] 1.24 mg/dL Invalid Interpretation Code 0.55 - 1.02 mg/dL AO ADM SS Electrolyte Balance 6.0 mEq/L Invalid Interpretation Code 4.0 - 15.0 mEq/L AO ADM SS Glucose [Mass/Vol] 148 mg/dL Invalid Interpretation Code 83 - 110 mg/dL AO ADM SS HbA1c (Bld) [Mass fraction] 6.1 % Invalid Interpretation Code 4.3 - 6.4 % AO ADM SS Potassium [Moles/Vol] 3.8 mmol/L Invalid Interpretation Code 3.5 - 5.1 mmol/L AO ADM SS Sodium [Moles/Vol] 142 mmol/L Invalid Interpretation Code 136 - 145 mmol/L AO ADM SS Urea nitrogen [Mass/Vol] 29 mg/dL Invalid Interpretation Code 7 - 18 mg/dL AO ADM SS Urea nitrogen/Creatinine [Mass ratio] 23 ratio Invalid Interpretation Code 7 - 27 ratio AO ADM SS LABORATORYOrdered By: Dorie Wilfrido on 03-12-2022 Basophil, Absolute 0.0 103/mcL Invalid Interpretation Code 0.0 - 0.2 10^3/mcL AO Workflow SS Basophils/100 WBC (Bld) 0.5 % Invalid Interpretation Code 0.0 - 2.5 % AO Workflow SS Eosinophil, Absolute 0.0 103/mcL Invalid Interpretation Code 0.0 - 0.4 10^3/mcL AO Workflow SS Eosinophils/100 WBC (Bld) 0.4 % Invalid Interpretation Code 0.0 - 7.0 % AO Workflow SS Erythrocyte distribution width (RBC) [Ratio] 14.5 % Invalid Interpretation Code 11.5 - 14.5 % AO Workflow SS Hematocrit (Bld) [Volume fraction] 35.6 % Invalid Interpretation Code 37.0 - 47.0 % AO Workflow SS Hgb 12.0 G/dL Invalid Interpretation Code 12.0 - 16.0 G/dL AO Workflow SS Lymphocyte, Absolute 1.2 103/mcL Invalid Interpretation Code 0.8 - 3.9 10^3/mcL AO Workflow SS Lymphocytes/100 WBC (Bld) 26.3 % Invalid Interpretation Code 10.0 - 50.0 % AO Workflow SS MCH (RBC) [Entitic mass] 31.1 pg Invalid Interpretation Code 27.0 - 31.2 pg AO Workflow SS MCHC 33.6 G/dL Invalid Interpretation Code 33.0 - 37.0 G/dL AO Workflow SS MCV (RBC) [Entitic vol] 92.6 fL Invalid Interpretation Code 80.0 - 94.0 fL AO Workflow SS Monocyte, Absolute 0.3 103/mcL Invalid Interpretation Code 0.2 - 1.0 10^3/mcL AO Workflow SS Monocytes/100 WBC (Bld) 6.1 % Invalid Interpretation Code 1.7 - 13.0 % AO Workflow SS Neutrophil, Absolute 3.2 103/mcL Invalid Interpretation Code 2.9 - 6.2 10^3/mcL AO Workflow SS Neutrophils/100 WBC (Bld) 66.7 % Invalid Interpretation Code 37.0 - 80.0 % AO Workflow SS Platelet 230 103/mcL Invalid Interpretation Code 130 - 400 10^3/mcL AO Workflow SS Platelet mean volume (Bld) [Entitic vol] 9.1 fL Invalid Interpretation Code 7.4 - 10.4 fL AO Workflow SS RBC 3.85 106/mcL Invalid Interpretation Code 4.20 - 5.40 10^6/mcL AO Workflow SS WBC 4.7 103/mcL Invalid Interpretation Code 4.6 - 10.8 10^3/mcL AO Workflow SS LABORATORYOrdered By: SYSTEM SYSTEM on 03-12-2022 GFR 50 ml/min/1.73sqm Invalid Interpretation Code AO Chemistry S GFR Non- 42 ml/min/1.73sqm Invalid Interpretation Code AO Chemistry S Monocyte distribution width Auto (Bld) [Entitic vol] Not Performed 1 *NA* (03/12/22 11:59 AM) Invalid Interpretation Code 0.00 - 20.00 AO Hematology S Comment on above: Result Comment: MDW testing performed only on adult ER patients between the ages of 18-89 years. DXA-AXIAL SKELETONon 022 [facility] Basophil percentageon 2021 Basophil percentage 3.2 mg/dL 2.5-4.9 [facility] Work Phone: Chloride [Moles/Vol] 111 mmol/L 98-[address] [facility] Work Phone: Glucose [Mass/Vol] 96 mg/dL 74-106 [facility] Work Phone: Potassium [Moles/Vol] 3.7 mmol/L 3.5-5.1 [address] [facility] Work Phone: Sodium [Moles/Vol] 144 mmol/L 136-145 [facility] Work Phone: Laboratory - Chemistry and C hemistry - challengeon 01-14-2022 CO2 [Moles/Vol] 28.0 mmol/L 21.0-32.[address] [facility] Work Phone: Urea nitrogen/Creatinine [Mass ratio] 17.4 mg/mg 10-[address] [facility] Work Phone: No Panel Informationon 01-14 Estimated GFR (MDRD) Amer 55 mL/min >[address] [facility] Work Phone: Comment on above: GFR Calc Estimated GFR (MDRD) Non-Af Amer 45 mL/min >[address] [facility] Work Phone: Comment on above: Non- GFR Calc Serum or plasma albumin rema urement (mass/volume)on 01-14-2022 Albumin [Mass/Vol] 3.3 g/dL 3.2-5.0 [facility] Work Phone: Serum or plasma calcium rema urement (mass/volume)on 01-14-2022 Calcium [Mass/Vol] 9.2 mg/dL 8.5-10.1 [facility] Work Phone: Serum or plasma creatinine m easurement (mass/volume)on 01-14-2022 Creatinine [Mass/Vol] 1.21 mg/dL 0.55-1.02 [facility] Work Phone: Comment on above: The validity of the calculated GFR & GFRAA in patients over 70 years has not been determined. Clinical correlation is essential. Serum or plasma urea nitroge n measurement (mass/volume)on 01-14-2022 Urea nitrogen [Mass/Vol] 21 mg/dL 04-[address] [facility] Work Phone: MG Breast Tomosynthesis Scr Blon 12-10-2021 MG Breast Tomosynthesis Scr Bl Patient Name: LYNETTE ANGULO Mammography ACCESSION EXAM DATE/TIME PROCEDURE ORDERING PROVIDER [id number] 12/10/2021 12:06 EDT MG Breast Tomosynthesis NORIS YOUNGBLOOD BI Scr CPT code [id number] Reason For Exam (MG Breast Tomosynthesis BI Scr) screening Report TIME SINCE LAST MAMMOGRAM: Last mammogram was performed 1 year ago. REASON FOR EXAM: screening, asymptomatic. PROCEDURE: MG BREAST TOMOSYNTHESIS BL SCR: DECEMBER 10, 2021 - 2D/3D Procedure 3D Bilateral CC and MLO view(s) were taken. 2D Bilateral CC and MLO view(s) were taken. Prior study comparison: December 08, 2020, bilateral MG breast tomosynthesis bl scr performed at [facility]. December 06, 2019, bilateral MG breast tomosynthesis bl scr performed at [facility]. December 04, 2018, bilateral MG breast tomosynthesis bl scr performed at [facility]. TISSUE DENSITY: BIRADS B - There are scattered fibroglandular densities. . PATIENT CANCER HISTORY: Self Thyroid Cancer age 69 FAMILY CANCER HISTORY: Mother Uterine Cancer age 65 Father Lung Cancer age 55 Maternal Grandfather Prostate Cancer age 65 FINDINGS: No suspicious masses, new suspicious architectural distortions or suspiciously clustered microcalcifications are identified. Postsurgical changes in the left breast with benign appearing calcifications in the right greater than left breast. There is no evidence of new suspicious skin thickening or nipple retraction. There are no significant changes when compared with prior studies. Markings on images: BB's = Nipples; skin lesions Open tolowa dee-ni' = Palpable Line = Scar Mammography Report 2D digital mammography and tomosynthesis imaging were performed and reviewed with CAD. ASSESSMENT: Category 2 Benign RECOMMENDATION: Routine screening mammogram of both breasts in 1 year. . Report Dictated on Cancer Risk Assessment: This risk assessment is based on patient provided information collected in a risk survey taken at the time of this examination. Lifetime breast cancer risk: Average Risk - If greater than or equal to 20%, consider annual mammogram and annual screening Breast MRI or follow up in high risk clinic. A score of Average Risk indicates a score of less than 20%. Is the patient at elevated risk based on the HBOC criteria? No (Hereditary Breast and Ovarian Cancer) - If yes, consider genetic counseling and testing with high risk follow up. Is the patient at elevated risk based on the Cloud Syndrome criteria? No - If yes, consider genetic counseling and testing with high risk follow up. Final Signed Date and Time: 12/10/2021 1:24 pm Signed by: MD SATURNINO, ANTHONY Normal [facility] Lakeisha Rafa Digital Screen Ana davies 12-10-2021 Patient Name: LYNETTE MANE Mammography ACCESSION EXAM DATE/TIME PROCEDURE ORDERING PROVIDER [id number] 12/10/2021 12:06 EDT MG Breast Tomosynthesis NORIS YOUNGBLOOD BI Scr CPT code [id number] Reason For Exam (MG Breast Tomosynthesis BI Scr) screening Report TIME SINCE LAST MAMMOGRAM: Last mammogram was performed 1 year ago. REASON FOR EXAM: screening, asymptomatic. PROCEDURE: MG BREAST TOMOSYNTHESIS BL SCR: DECEMBER 10, 2021 - 2D/3D Procedure 3D Bilateral CC and MLO view(s) were taken. 2D Bilateral CC and MLO view(s) were taken. Prior study comparison: December 08, 2020, bilateral MG breast tomosynthesis bl scr performed at [facility]. December 06, 2019, bilateral MG breast tomosynthesis bl scr performed at [facility]. December 04, 2018, bilateral MG breast tomosynthesis bl scr performed at [facility]. TISSUE DENSITY: BIRADS B - There are scattered fibroglandular densities. . PATIENT CANCER HISTORY: Self Thyroid Cancer age 69 FAMILY CANCER HISTORY: Mother Uterine Cancer age 65 Father Lung Cancer age 55 Maternal Grandfather Prostate Cancer age 65 FINDINGS: No suspicious masses, new suspicious architectural distortions or suspiciously clustered microcalcifications are identified. Postsurgical changes in the left breast with benign appearing calcifications in the right greater than left breast. There is no evidence of new suspicious skin thickening or nipple retraction. There are no significant changes when compared with prior studies. Markings on images: BB's = Nipples; skin lesions Open tolowa dee-ni' = Palpable Line = Scar Mammography Report 2D digital mammography and tomosynthesis imaging were performed and reviewed with CAD. ASSESSMENT: Category 2 Benign RECOMMENDATION: Routine screening mammogram of both breasts in 1 year. . Report Dictated on Cancer Risk Assessment: This risk assessment is based on patient provided information collected in a risk survey taken at the time of this examination. Lifetime breast cancer risk: Average Risk - If greater than or equal to 20%, consider annual mammogram and annual screening Breast MRI or follow up in high risk clinic. A score of Average Risk indicates a score of less than 20%. Is the patient at elevated risk based on the HBOC criteria? No (Hereditary Breast and Ovarian Cancer) - If yes, consider genetic counseling and testing with high risk follow up. Is the patient at elevated risk based on the Cloud Syndrome criteria? No - If yes, consider genetic counseling and testing with high risk follow up. --- Final --- Signed Date and Time: 12/10/2021 1:24 pm Signed by: MD SATURNINO, ANTHONY [facility] RAD Result, Unknown Prov ider - 12/10/2021 Patient Name: LYNETTE ANGULO Mammography ACCESSION EXAM DATE/TIME PROCEDURE ORDERING PROVIDER [id number] 12/10/2021 12:06 EDT MG Breast Tomosynthesis RYLIENORIS BI Scr CPT code 33123 [id number] Reason For Exam (MG Breast Tomosynthesis BI Scr) screening Report TIME SINCE LAST MAMMOGRAM: Last mammogram was performed 1 year ago. REASON FOR EXAM: screening, asymptomatic. PROCEDURE: MG BREAST TOMOSYNTHESIS BL SCR: DECEMBER 10, 2021 - 2D/3D Procedure 3D Bilateral CC and MLO view(s) were taken. 2D Bilateral CC and MLO view(s) were taken. Prior study comparison: December 08, 2020, bilateral MG breast tomosynthesis bl scr performed at [facility]. December 06, 2019, bilateral MG breast tomosynthesis bl scr performed at [facility]. December 04, 2018, bilateral MG breast tomosynthesis bl scr performed at [facility]. TISSUE DENSITY: BIRADS B - There are scattered fibroglandular densities. . PATIENT CANCER HISTORY: Self Thyroid Cancer age 69 FAMILY CANCER HISTORY: Mother Uterine Cancer age 65 Father Lung Cancer age 55 Maternal Grandfather Prostate Cancer age 65 FINDINGS: No suspicious masses, new suspicious architectural distortions or suspiciously clustered microcalcifications are identified. Postsurgical changes in the left breast with benign appearing calcifications in the right greater than left breast. There is no evidence of new suspicious skin thickening or nipple retraction. There are no significant changes when compared with prior studies. Markings on images: BB's = Nipples; skin lesions Open tolowa dee-ni' = Palpable Line = Scar Mammography Report 2D digital mammography and tomosynthesis imaging were performed and reviewed with CAD. ASSESSMENT: Category 2 Benign RECOMMENDATION: Routine screening mammogram of both breasts in 1 year. . Report Dictated on Cancer Risk Assessment: This risk assessment is based on patient provided information collected in a risk survey taken at the time of this examination. Lifetime breast cancer risk: Average Risk - If greater than or equal to 20%, consider annual mammogram and annual screening Breast MRI or follow up in high risk clinic. A score of Average Risk indicates a score of less than 20%. Is the patient at elevated risk based on the HBOC criteria? No (Hereditary Breast and Ovarian Cancer) - If yes, consider genetic counseling and testing with high risk follow up. Is the patient at elevated risk based on the Cloud Syndrome criteria? No - If yes, consider genetic counseling and testing with high risk follow up. --- Final --- Signed Date and Time: 12/10/2021 1:24 pm Signed by: MD SATURNINO, ANTHONY [facility] Work Phone: Radiology Study observation (narrative) [facility] Work Phone: [facility] Rafa Digital Screen Bila teralOrdered By: Unknown Result on 12-10-2021 [facility] Basophil percentageon 2021 Basophil percentage 3.2 mg/dL 2.5-4.[address] [facility] [facility] Work Phone: Chloride [Moles/Vol] 107 mmol/L 98-107 [facility] Work Phone: Glucose [Mass/Vol] 112 mg/dL 74-106 [facility] Work Phone: Comment on above: Fasting Glucose resu lt from 100 to 125 mg/dL suggests IMPAIRED HOMEOSTASIS per A.D.A. criteria. Potassium [Moles/Vol] 4.3 mmol/L 3.5-5.[address] [facility] Work Phone: Sodium [Moles/Vol] 142 mmol/L 136-145 [facility] Work Phone: Laboratory - Chemistry and C hemistry - challengeon 12-05-2021 CO2 [Moles/Vol] 29.0 mmol/L 21.0-32.[address] [facility] Work Phone: Urea nitrogen/Creatinine [Mass ratio] 11.3 mg/mg 10-[address] [facility] Work Phone: No Panel Informationon 12-05 Estimated GFR (MDRD) Amer 53 mL/min >[address] [facility] Work Phone: Comment on above: GFR Calc Estimated GFR (MDRD) Non-Af Amer 44 mL/min >[address] [facility] Work Phone: Comment on above: Non- GFR Calc Parathyroid Hormone (Intact) 83.9 pg/mL 18.4-80.[address] [facility] Work Phone: Serum or plasma albumin rema urement (mass/volume)on 12-05-2021 Albumin [Mass/Vol] 3.9 g/dL 3.2-5.0 [facility] Work Phone: Serum or plasma calcium rema urement (mass/volume)on 12-05-2021 Calcium [Mass/Vol] 10.1 mg/dL 8.5-10.1 [facility] Work Phone: Serum or plasma creatinine m easurement (mass/volume)on 12-05-2021 Creatinine [Mass/Vol] 1.24 mg/dL 0.55-1.02 [facility] Work Phone: Comment on above: The validity of the calculated GFR & GFRAA in patients over 70 years has not been determined. Clinical correlation is essential. Serum or plasma urea nitroge n measurement (mass/volume)on 12-05-2021 Urea nitrogen [Mass/Vol] 14 mg/dL 7-[address] [facility] Work Phone: Creatinine, Ur Randomon 02-0 Creatinine, Ur Random 106.3 mg/dL Normal No Range [facility] Comment on above: Performed By: #### R ENL3, CRTUR, TPUR, HEMDF #### [facility] [employer] [address] [place] [address] #### [id number] #### [facility] [employer] [facility] [address] [place] [address] Hemogram w/ Autodiffon 10-31 Abs Baso Cnt 0.1 10*3/uL Normal 0.0-0.2 [facility] Comment on above: Performed By: #### R ENL3, CRTUR, TPUR, HEMDF #### [facility] [address] [place] [address] #### [id number] #### [facility] [address] [place] [address] Abs Neutrophile Cnt 3.4 10*3/uL Normal 1.8-7.0 [facility] Comment on above: Performed By: #### R ENL3, CRTUR, TPUR, HEMDF #### [facility] [address] [place] [address] #### [id number] #### [facility] [address] [place] [address] Basophils/100 WBC (Bld) 2.0 % Normal 0.0-2.0 [facility] Comment on above: Performed By: #### R ENL3, CRTUR, TPUR, HEMDF #### [address] [place] [address] #### [id number] #### [facility] [address] [place] [address] Eosinophils (Bld) [#/Vol] 0.1 10*3/uL Normal 0.0-0.5 [facility] Comment on above: Performed By: #### R ENL3, CRTUR, TPUR, HEMDF #### [facility] [address] [place] [address] #### [id number] #### [facility] [address] [place] [address] Eosinophils/100 WBC (Bld) 1.4 % Normal 1.0-6.0 [facility] Comment on above: Performed By: #### R ENL3, CRTUR, TPUR, HEMDF #### [facility] [address] [place] [address] #### [email or web address] #### [facility] [address] [place] [address] Erythrocyte distribution width (RBC) [Ratio] 14.9 % High 11.5-14.5 [facility] Comment on above: Performed By: #### R ENL3, CRTUR, TPUR, HEMDF #### [facility] [address] [place] [address] #### [id number] #### [facility] [address] [place] [address] Granulocytes/100 WBC (Bld) 69.8 % Normal 40.0-80.0 [facility] Comment on above: Performed By: #### R ENL3, CRTUR, TPUR, HEMDF #### [facility] [address] [place] [address] #### [email or web address] #### [facility] [address] [place] [address] Hematocrit (Bld) [Volume fraction] 36.6 % Normal 35.0-47.0 [facility] Comment on above: Performed By: #### R ENL3, CRTUR, TPUR, HEMDF #### [facility] [address] [place] [address] #### [id number] #### [facility] [address] [place] [address] Hemoglobin (Bld) [Mass/Vol] 12.0 g/dL Normal 11.7-16.0 [facility] Comment on above: Performed By: #### R ENL3, CRTUR, TPUR, HEMDF #### [facility] [address] [place] [address] #### [id number] #### [facility] [address] [place] [address] Lymphocytes (Bld) [#/Vol] 1.0 10*3/uL Normal 1.0-4.3 [facility] Comment on above: Performed By: #### R ENL3, CRTUR, TPUR, HEMDF #### [facility] [address] [place] [address] #### [email or web address] #### [facility] [address] [place] [address] Lymphocytes/100 WBC (Bld) 20.9 % Normal 20.0-40.0 [facility] Comment on above: Performed By: #### R ENL3, CRTUR, TPUR, HEMDF #### [facility] [address] [place] [address] #### [email or web address] #### [facility] [address] [facility] [place] [address] MCH (RBC) [Entitic mass] 30.3 pg Normal 26.0-34.0 [facility] Comment on above: Performed By: #### R ENL3, CRTUR, TPUR, HEMDF #### [facility] [address] [place] [address] #### [email or web address] #### [facility] [address] [facility] [place] [address] MCHC 32.9 % Normal 32.0-36.0 [facility] Comment on above: Performed By: #### R ENL3, CRTUR, TPUR, HEMDF #### [address] [address] #### [email or web address] #### [facility] [address] [place] [address] MCV (RBC) [Entitic vol] 92.0 fL Normal 79.0-98.0 [facility] Comment on above: Performed By: #### R ENL3, CRTUR, TPUR, HEMDF #### [address] [address] #### [email or web address] #### [facility] [address] [place] [address] Monocytes (Bld) [#/Vol] 0.3 10*3/uL Normal 0.0-0.8 [facility] Comment on above: Performed By: #### R ENL3, CRTUR, TPUR, HEMDF #### [facility] [address] [place] [address] #### [email or web address] #### [facility] [address] [facility] [place] [address] Monocytes/100 WBC (Bld) 5.9 % Normal 2.0-10.0 [facility] Comment on above: Performed By: #### R ENL3, CRTUR, TPUR, HEMDF #### [facility] [address] [place] [address] #### [id number] #### [facility] [address] [place] [address] Platelet mean volume (Bld) [Entitic vol] 7.5 fL Normal 7.4-10.4 [facility] Comment on above: Performed By: #### R ENL3, CRTUR, TPUR, HEMDF #### [facility] [address] [place] [address] #### [id number] #### [facility] [address] [place] [address] Platelets (Bld) [#/Vol] 234 10*3/uL Normal 140-440 [facility] Comment on above: Performed By: #### R ENL3, CRTUR, TPUR, HEMDF #### [facility] [address] [place] [address] #### [id number] #### [place] [address] [place] [address] RBC (Bld) [#/Vol] 3.98 10*6/uL Normal 3.80-5.20 [facility] Comment on above: Performed By: #### R ENL3, CRTUR, TPUR, HEMDF #### [facility] [address] [place] [address] #### [id number] #### [place] [address] [place] [address] WBC (Bld) [#/Vol] 4.9 10*3/uL Normal 3.6-10.7 [facility] Comment on above: Performed By: #### R ENL3, CRTUR, TPUR, HEMDF #### [facility] [address] [place] [address] #### [email or web address] #### [facility] [address] [place] [address] Protein, Ur Randomon 02-02-2 022 Protein, Ur Random 132 mg/dL High No Range [facility] Comment on above: Performed By: #### R ENL3, CRTUR, TPUR, HEMDF #### [facility] [address] [place] [address] #### [email or web address] #### [facility] [address] [place] [address] Renal Functionon 10-31-2021 Calcium [Mass/Vol] 11.1 mg/dL High 8.4-10.4 [facility] Comment on above: Performed By: #### R ENL3, CRTUR, TPUR, HEMDF #### [facility] [address] [place] [address] #### [email or web address] #### [facility] [address] [place] [address] Phosphate [Mass/Vol] 3.7 mg/dL Normal 2.5-4.5 [facility] Comment on above: Performed By: #### R ENL3, CRTUR, TPUR, HEMDF #### [facility] [address] [place] [address] #### [email or web address] #### [place] [address] [place] [address] Anion gap [Moles/Vol] 4 mmol/L Normal 3-13 [facility] Comment on above: Performed By: #### R ENL3, CRTUR, TPUR, HEMDF #### [facility] [address] [place] [address] #### [email or web address] #### [place] [address] [place] [address] CO2 [Moles/Vol] 24 mmol/L Normal 22-30 [facility] Comment on above: Performed By: #### R ENL3, CRTUR, TPUR, HEMDF #### [facility] [address] [place] [address] #### [email or web address] #### [place] [address] [place] [address] Creatinine [Mass/Vol] 1.96 mg/dL High 0.52-1.25 [facility] Comment on above: Performed By: #### R ENL3, CRTUR, TPUR, HEMDF #### [facility] [address] [place] [address] #### [email or web address] #### [facility] [address] [place] [address] GFR/1.73 sq M.predicted among blacks MDRD (S/P/Bld) [Vol rate/Area] 27.2 mL/min/{1.73_m2} Abnormal >60 [facility] Comment on above: Performed By: #### R ENL3, CRTUR, TPUR, HEMDF #### [facility] [address] [place] [address] #### [email or web address] #### [facility] [address] [place] [address] GFR/1.73 sq M.predicted among non-blacks MDRD (S/P/Bld) [Vol rate/Area] 23.4 mL/min/{1.73_m2} Abnormal >60 [facility] Comment on above: Result Comment: KDIG O guidelines provide the following GFR categories: Stage GFR(ml/min/1.73 m2) Terms G1 >=90 Normal or high G2 60-89 Mildly decreased* G3a 45-59 Mildly to moderately decreased G3b 30-44 Moderately to severely decreased G4 15-29 Severely decreased G5 <15 Kidney failure *Relative to young adult level. In the absence of evidence of kidney damage, neither GFR category G1 nor G2 fulfill the criteria for CKD. The CKD-EPI equation is validated in individuals 18 years of age and older. Currently the best equation for estimating glomerular filtration rate (GFR) from serum creatinine in children is the Bedside Zapata equation. It is less accurate in patients with extremes of muscle mass, restriction of dietary protein, ingestion of creatine, extra-renal metabolism of creatinine, or treatment with medications that affect renal tubular creatinine secretion. Performed By: #### R ENL3, CRTUR, TPUR, HEMDF #### [facility] [employer] [facility] [address] [place] [address] #### [email or web address] #### [facility] [address] [place] [address] Glucose [Mass/Vol] 163 mg/dL High 70-100 [facility] Comment on above: Performed By: #### R ENL3, CRTUR, TPUR, HEMDF #### [facility] [address] [place] [address] #### [email or web address] #### [facility] [address] [place] [address] Urea nitrogen [Mass/Vol] 40 mg/dL High 9-20 [facility] Comment on above: Performed By: #### R ENL3, CRTUR, TPUR, HEMDF #### [facility] [address] [place] [address] #### [email or web address] #### [facility] [address] [place] [address] Albumin [Mass/Vol] 3.9 g/dL Normal 3.5-5.0 [facility] Comment on above: Performed By: #### R ENL3, CRTUR, TPUR, HEMDF #### [facility] [address] [place] [address] #### [email or web address] #### [facility] [address] [place] [address] Chloride [Moles/Vol] 109 mmol/L High 98-107 [facility] Comment on above: Performed By: #### R ENL3, CRTUR, TPUR, HEMDF #### [facility] [address] [place] [address] #### VD25H #### [facility] [address] [place] [address] Potassium [Moles/Vol] 4.6 mmol/L Normal 3.5-5.1 [facility] Comment on above: Performed By: #### R ENL3, CRTUR, TPUR, HEMDF #### [facility] [address] [place] [address] #### [email or web address] #### [facility] [address] [place] [address] Sodium [Moles/Vol] 137 mmol/L Normal 135-145 [facility] Comment on above: Performed By: #### R ENL3, CRTUR, TPUR, HEMDF #### [facility] [address] [place] [address] #### [email or web address] #### [facility] [address] [place] [address] Vit D 25-OH, Totalon 022 Vit D 25-OH, Total 68 ng/mL Normal 30-100 [facility] Comment on above: Result Comment: Ther apy is based on measurement of Total 25- OHD with the following classification levels: Less than 20 ng/mL: Indicative of Vit D deficiency 20-30 ng/mL: Suggests Vit D insufficiency Optimal: Greater than or equal to 30 ng/mL Test performed by [employer] Competitive Immunoassay, measuring Total Vitamin D, not individual fractions. Performed By: #### H EMDF, RENL3, TPUR, CRTUR #### [facility] [address] [place] [address] #### PTH3, VD25H #### [facility] [address] [place] [address] Basophil percentageon 2021 Basophil percentage 3.8 mg/dL 2.5-4.9 [facility] Work Phone: Bilirubin [Mass/Vol] 0.80 mg/dL 0.20-1.00 [facility] Work Phone: Comment on above: For patients on eltr ombopag therapy, use of Dimension [place] TBIL is not recommended. Chloride [Moles/Vol] 103 mmol/L 98-107 [facility] Work Phone: Glucose [Mass/Vol] 196 mg/dL 74-106 [facility] Work Phone: Comment on above: Fasting Glucose resu lt greater than or equal to 126 mg/dL suggests DIABETES MELLITUS per A.D.A. criteria.Please note revised GLUCOSE reference range effective 2017. Potassium [Moles/Vol] 3.4 mmol/L 3.5-5.1 [facility] Work Phone: Protein [Mass/Vol] 7.1 g/dL 6.4-8.2 [facility] Work Phone: Sodium [Moles/Vol] 139 mmol/L 136-145 [facility] Work Phone: WBC (Bld) [#/Vol] 6.1 10*3/uL 4.4-11.0 [facility] Work Phone: Blood erythrocytes count (nu mber/volume)on 10-08-2021 RBC (Bld) [#/Vol] 4.25 10*6/uL 4.2-5.4 [facility] Work Phone: Blood hemoglobin measurement (mass/volume)on 10-08-2021 Hemoglobin (Bld) [Mass/Vol] 12.5 g/dL 12.0-15.[address] [facility] Work Phone: Blood platelet mean volumeon 10-08-2021 Platelet mean volume (Bld) [Entitic vol] 10.3 fL 6.2-12.[address] [facility] Work Phone: Determination of erythrocyte mean corpuscular volume (MCV)on 10-08-2021 MCV (RBC) [Entitic vol] 92.7 fL 81-[address] [facility] Work Phone: Hematocrit Auto (Bld) [Volum e fraction]on 10-08-2021 Hematocrit (Bld) [Volume fraction] 39.4 % 37-[address] [facility] Work Phone: Laboratory - Chemistry and C hemistry - challengeon 10-08-2021 ALP [Catalytic activity/Vol] 85 U/L 45-[address] [facility] Work Phone: ALT [Catalytic activity/Vol] 42 U/L 13-[address] [facility] Work Phone: CO2 [Moles/Vol] 27.0 mmol/L 21.0-32.[address] [facility] Work Phone: Globulin (S) [Mass/Vol] 3.6 g/dL 2.2-4.[address] [facility] Work Phone: Urea nitrogen/Creatinine [Mass ratio] 23.5 mg/mg 10-[address] [facility] Work Phone: Laboratory - Hematology and Cell countson 10-08-2021 Erythrocyte distribution width (RBC) [Entitic vol] 44.8 fL 35.1-43.[address] [facility] Work Phone: Erythrocyte distribution width (RBC) [Ratio] 13.2 % 11.6-14.[address] [facility] Work Phone: MCH (RBC) [Entitic mass] 29.4 pg 27.0-32.[address] [facility] Work Phone: MCHC Auto (RBC) [Mass/Vol]on 10-08-2021 MCHC (RBC) [Mass/Vol] 31.7 g/dL 32-36 [facility] Work Phone: No Panel Informationon 10-08 C-Reactive Protein High Sensitivity 2.22 mg/L [facility] Work Phone: Comment on above: Low Relative Risk of CVD <1.0 mg/L Average Relative Risk of CVD 1.0 - 3.0 mg/L High Relative Risk of CVD >3.0 mg/L Estimated GFR (MDRD) Amer 31 mL/min >[address] [facility] Work Phone: Comment on above: GFR Calc Estimated GFR (MDRD) Non-Af Amer 25 mL/min >[address] [facility] Work Phone: Comment on above: Non- GFR Calc Platelets bldon 10-08-2021 Platelets (Bld) [#/Vol] 249 10*3/uL 150-[address] [facility] Work Phone: Serum or plasma C reactive p rotein measurement (mass/volume)on 10-08-2021 CRP [Mass/Vol] mg/L 0.0-3.[address] [facility] Work Phone: Comment on above: C-Reactive Protein ( CRP) provides useful information for thediagnosis, therapy and monitoring of inflammatory processesand associated diseases. For the evaluation of Relative Riskfor Cardiovascular Disease, a High Sensitivity CRP (HSCRP)should be ordered. Serum or plasma albumin rema urement (mass/volume)on 10-08-2021 Albumin [Mass/Vol] 3.5 g/dL 3.2-5.0 [facility] Work Phone: Serum or plasma albumin/glob ulin mass ratioon 10-08-2021 Albumin/Globulin [Mass ratio] 1.0 {ratio} 0.9-2.[address] [facility] Work Phone: Serum or plasma calcium rema urement (mass/volume)on 10-08-2021 Calcium [Mass/Vol] 10.1 mg/dL 8.5-10.1 [facility] Work Phone: Serum or plasma creatinine m easurement (mass/volume)on 10-08-2021 Creatinine [Mass/Vol] 2.00 mg/dL 0.55-1.02 [facility] Work Phone: Comment on above: The validity of the calculated GFR & GFRAA in patients over 70 years has not been determined. Clinical correlation is essential. Serum or plasma urea nitroge n measurement (mass/volume)on 10-08-2021 Urea nitrogen [Mass/Vol] 47 mg/dL 7-[address] [facility] Work Phone: Thin prep Papanicolaou smear with manual screeningon 10-08-2021 Thin prep Papanicolaou smear with manual screening 27 U/L 15-[address] [facility] Work Phone: Thin prep Papanicolaou smear with manual screening 9 5-[address] [facility] Work Phone: Erythrocyte sedimentation ra ananya 09-25-2021 ESR (Bld) [Velocity] 28 mm/h 0-30 [facility] Work Phone: Serum or plasma C reactive p rotein measurement (mass/volume)on 09-25-2021 CRP [Mass/Vol] mg/L 0.0-3.[address] [facility] Work Phone: Comment on above: C-Reactive Protein ( CRP) provides useful information for thediagnosis, therapy and monitoring of inflammatory processesand associated diseases. For the evaluation of Relative Riskfor Cardiovascular Disease, a High Sensitivity CRP (HSCRP)should be ordered. Basophil percentageon 2020 WBC (Bld) [#/Vol] 5.2 10*3/uL 4.4-11.0 [facility] Work Phone: Blood erythrocytes count (nu mber/volume)on 09-11-2021 RBC (Bld) [#/Vol] 4.03 10*6/uL 4.2-5.4 [facility] Work Phone: Blood hemoglobin measurement (mass/volume)on 09-11-2021 Hemoglobin (Bld) [Mass/Vol] 12.2 g/dL 12.0-15.[address] [facility] Work Phone: Blood platelet mean volumeon 09-11-2021 Platelet mean volume (Bld) [Entitic vol] 10.2 fL 6.2-12.[address] [facility] Work Phone: Determination of erythrocyte mean corpuscular volume (MCV)on 09-11-2021 MCV (RBC) [Entitic vol] 95.5 fL 81-[address] [facility] Work Phone: Hematocrit Auto (Bld) [Volum e fraction]on 09-11-2021 Hematocrit (Bld) [Volume fraction] 38.5 % 37-[address] [facility] Work Phone: Laboratory - Hematology and Cell countson 09-11-2021 Erythrocyte distribution width (RBC) [Entitic vol] 47.1 fL 35.1-43.[address] [facility] Work Phone: Erythrocyte distribution width (RBC) [Ratio] 13.3 % 11.6-14.[address] [facility] Work Phone: MCH (RBC) [Entitic mass] 30.3 pg 27.0-32.[address] [facility] Work Phone: MCHC Auto (RBC) [Mass/Vol]on 09-11-2021 MCHC (RBC) [Mass/Vol] 31.7 g/dL 32-36 [facility] Work Phone: Platelets bldon 09-11-2021 Platelets (Bld) [#/Vol] 270 10*3/uL 150-[address] [facility] Work Phone: Renal Functionon 09-10-2021 Calcium [Mass/Vol] 10.7 mg/dL High 8.4-10.4 [facility] Comment on above: Performed By: #### H EMDF, RENL3, TPUR, CRTUR #### [facility] [address] [place] [address] #### PTH3, VD25H #### [facility] [address] [place] [address] Glucose [Mass/Vol] 125 mg/dL High 70-100 [facility] Comment on above: Performed By: #### H EMDF, RENL3, TPUR, CRTUR #### [facility] [address] [place] [address] #### PTH3, VD25H #### [facility] [address] [place] [address] Phosphate [Mass/Vol] 3.5 mg/dL Normal 2.5-4.5 [facility] Comment on above: Performed By: #### H EMDF, RENL3, TPUR, CRTUR #### [facility] [address] [place] [address] #### PTH3, VD25H #### [facility] [address] [place] [address] Anion gap [Moles/Vol] 3 mmol/L Normal 3-13 [facility] Comment on above: Performed By: #### H EMDF, RENL3, TPUR, CRTUR #### [facility] [address] [place] [address] #### PTH3, VD25H #### [facility] [address] [place] [address] CO2 [Moles/Vol] 30 mmol/L Normal 22-30 [facility] Comment on above: Performed By: #### H EMDF, RENL3, TPUR, CRTUR #### [facility] [address] [place] [address] #### PTH3, VD25H #### [place] [address] [place] [address] Creatinine [Mass/Vol] 1.53 mg/dL High 0.52-1.25 [facility] Comment on above: Performed By: #### H EMDF, RENL3, TPUR, CRTUR #### [facility] [address] [place] [address] #### PTH3, VD25H #### [facility] [address] [place] [address] GFR/1.73 sq M.predicted among blacks MDRD (S/P/Bld) [Vol rate/Area] 36.7 mL/min/{1.73_m2} Abnormal >60 [facility] Comment on above: Performed By: #### H EMDF, RENL3, TPUR, CRTUR #### [facility] [address] [place] [address] #### PTH3, VD25H #### [facility] [address] [place] [address] GFR/1.73 sq M.predicted among non-blacks MDRD (S/P/Bld) [Vol rate/Area] 31.6 mL/min/{1.73_m2} Abnormal >60 [facility] Comment on above: Result Comment: KDIG O guidelines provide the following GFR categories: Stage GFR(ml/min/1.73 m2) Terms G1 >=90 Normal or high G2 60-89 Mildly decreased* G3a 45-59 Mildly to moderately decreased G3b 30-44 Moderately to severely decreased G4 15-29 Severely decreased G5 <15 Kidney failure *Relative to young adult level. In the absence of evidence of kidney damage, neither GFR category G1 nor G2 fulfill the criteria for CKD. The CKD-EPI equation is validated in individuals 18 years of age and older. Currently the best equation for estimating glomerular filtration rate (GFR) from serum creatinine in children is the Bedside Zapata equation. It is less accurate in patients with extremes of muscle mass, restriction of dietary protein, ingestion of creatine, extra-renal metabolism of creatinine, or treatment with medications that affect renal tubular creatinine secretion. Performed By: #### H EMDF, RENL3, TPUR, CRTUR #### [facility] [address] [place] [address] #### PTH3, VD25H #### [facility] [address] [place] [address] Urea nitrogen [Mass/Vol] 33 mg/dL High 9-20 [facility] Comment on above: Performed By: #### H EMDF, RENL3, TPUR, CRTUR #### [facility] [address] [place] [address] #### PTH3, VD25H #### [facility] [address] [place] [address] Potassium [Moles/Vol] 3.4 mmol/L Low 3.5-5.1 [facility] Comment on above: Performed By: #### H EMDF, RENL3, TPUR, CRTUR #### [facility] [address] [place] [address] #### PTH3, VD25H #### [facility] [address] [place] [address] Albumin [Mass/Vol] 4.0 g/dL Normal 3.5-5.0 [facility] Comment on above: Performed By: #### H EMDF, RENL3, TPUR, CRTUR #### [facility] [address] [place] [address] #### PTH3, VD25H #### [facility] [address] [place] [address] Chloride [Moles/Vol] 106 mmol/L Normal 98-107 [facility] Comment on above: Performed By: #### H EMDF, RENL3, TPUR, CRTUR #### [facility] [address] [place] [address] #### PTH3, VD25H #### [facility] [address] [place] [address] Sodium [Moles/Vol] 139 mmol/L Normal 135-145 [facility] Comment on above: Performed By: #### H EMDF, RENL3, TPUR, CRTUR #### [facility] [address] [place] [address] #### PTH3, VD25H #### [facility] [address] [place] [address] Renal Functionon 08-03-2021 Anion gap [Moles/Vol] 3 mmol/L Normal 3-13 [facility] Comment on above: Performed By: #### H EMDF, RENL3, TPUR, CRTUR #### [facility] [address] [place] [address] #### PTH3, VD25H #### [facility] [address] [place] [address] Calcium [Mass/Vol] 10.7 mg/dL High 8.4-10.4 [facility] Comment on above: Performed By: #### H EMDF, RENL3, TPUR, CRTUR #### [facility] [address] [place] [address] #### PTH3, VD25H #### [facility] [address] [place] [address] CO2 [Moles/Vol] 28 mmol/L Normal 22-30 [facility] Comment on above: Performed By: #### H EMDF, RENL3, TPUR, CRTUR #### [facility] [address] [place] [address] #### PTH3, VD25H #### [facility] [address] [place] [address] Glucose [Mass/Vol] 152 mg/dL High 70-100 [facility] Comment on above: Performed By: #### H EMDF, RENL3, TPUR, CRTUR #### [facility] [address] [place] [address] #### PTH3, VD25H #### [facility] [address] [place] [address] Phosphate [Mass/Vol] 3.3 mg/dL Normal 2.5-4.5 [facility] Comment on above: Performed By: #### H EMDF, RENL3, TPUR, CRTUR #### [facility] [address] [place] [address] #### PTH3, VD25H #### [facility] [address] [place] [address] Urea nitrogen [Mass/Vol] 26 mg/dL High 9-20 [facility] Comment on above: Performed By: #### H EMDF, RENL3, TPUR, CRTUR #### [facility] [address] [place] [address] #### PTH3, VD25H #### [facility] [address] [place] [address] Creatinine [Mass/Vol] 1.42 mg/dL High 0.52-1.25 [facility] Comment on above: Performed By: #### H EMDF, RENL3, TPUR, CRTUR #### [facility] [address] [place] [address] #### PTH3, VD25H #### [facility] [address] [facility] [place] [address] GFR/1.73 sq M.predicted among blacks MDRD (S/P/Bld) [Vol rate/Area] 40.2 mL/min/{1.73_m2} Abnormal >60 [facility] Comment on above: Performed By: #### H EMDF, RENL3, TPUR, CRTUR #### [facility] [address] [place] [address] #### PTH3, VD25H #### [facility] [address] [place] [address] GFR/1.73 sq M.predicted among non-blacks MDRD (S/P/Bld) [Vol rate/Area] 34.7 mL/min/{1.73_m2} Abnormal >60 [facility] Comment on above: Result Comment: KDIG O guidelines provide the following GFR categories: Stage GFR(ml/min/1.73 m2) Terms G1 >=90 Normal or high G2 60-89 Mildly decreased* G3a 45-59 Mildly to moderately decreased G3b 30-44 Moderately to severely decreased G4 15-29 Severely decreased G5 <15 Kidney failure *Relative to young adult level. In the absence of evidence of kidney damage, neither GFR category G1 nor G2 fulfill the criteria for CKD. The CKD-EPI equation is validated in individuals 18 years of age and older. Currently the best equation for estimating glomerular filtration rate (GFR) from serum creatinine in children is the Bedside Zapata equation. It is less accurate in patients with extremes of muscle mass, restriction of dietary protein, ingestion of creatine, extra-renal metabolism of creatinine, or treatment with medications that affect renal tubular creatinine secretion. Performed By: #### H EMDF, RENL3, TPUR, CRTUR #### [facility] [address] [place] [address] #### PTH3, VD25H #### [facility] [address] [place] [address] Albumin [Mass/Vol] 4.1 g/dL Normal 3.5-5.0 [facility] Comment on above: Performed By: #### H EMDF, RENL3, TPUR, CRTUR #### [facility] [address] [place] [address] #### PTH3, VD25H #### [facility] [address] [place] [address] Chloride [Moles/Vol] 108 mmol/L High 98-107 [facility] Comment on above: Performed By: #### H EMDF, RENL3, TPUR, CRTUR #### [facility] [address] [place] [address] #### PTH3, VD25H #### [facility] [address] [place] [address] Potassium [Moles/Vol] 4.0 mmol/L Normal 3.5-5.1 [facility] Comment on above: Performed By: #### H EMDF, RENL3, TPUR, CRTUR #### [facility] [address] [place] [address] #### PTH3, VD25H #### [facility] [address] [place] [address] Sodium [Moles/Vol] 139 mmol/L Normal 135-145 [facility] Comment on above: Performed By: #### H EMDF, RENL3, TPUR, CRTUR #### [facility] [address] [place] [address] #### PTH3, VD25H #### [facility] [address] [place] [address] Renal Function PanelOrdered By: Leidy Benz on 08-03-2021 Albumin [Mass/Vol] 4.1 g/dL 3.5 - 5.0 g/dL [facility] Work Phone: [phone] Anion gap [Moles/Vol] 3 mmol/L 3 - 13 mmol/L [facility] Work Phone: [phone] Calcium [Mass/Vol] 10.7 mg/dL High 8.4 - 10. 4 mg/dL [facility] Work Phone: [phone] Chloride [Moles/Vol] 108 mmol/L High 98 - 10 7 mmol/L [facility] Work Phone: [phone] CO2 [Moles/Vol] 28 mmol/L 22 - 30 mmol/L [facility] Work Phone: [phone] Creatinine [Mass/Vol] 1.42 mg/dL High 0.52 - 1.25 mg/dL [facility] Work Phone: [phone] EGFR IF NonAfrican [place] 34.7 mL/min Abnormal >60 [facility] Work Phone: [phone] Comment on above: KDIGO guidelines pro vide the following GFR categories: Stage GFR(ml/min/1.73 m2) Terms G1 >=90 Normal or high G2 60-89 Mildly decreased* G3a 45-59 Mildly to moderately decreased G3b 30-44 Moderately to severely decreased G4 15-29 Severely decreased G5 <15 Kidney failure *Relative to young adult level. In the absence of evidence of kidney damage, neither GFR category G1 nor G2 fulfill the criteria for CKD. The CKD-EPI equation is validated in individuals 18 years of age and older. Currently the best equation for estimating glomerular filtration rate (GFR) from serum creatinine in children is the Bedside Zapata equation. It is less accurate in patients with extremes of muscle mass, restriction of dietary protein, ingestion of creatine, extra-renal metabolism of creatinine, or treatment with medications that affect renal tubular creatinine secretion. GFR/1.73 sq M.predicted among blacks MDRD (S/P/Bld) [Vol rate/Area] 40.2 mL/min/{1.73_m2} Abnormal >60 [facility] Work Phone: [phone] Glucose [Mass/Vol] 152 mg/dL High 70 - 100 mg/dL [facility] Work Phone: [phone] Interpretation and review of laboratory results Abnormal [facility] Work Phone: [phone] Phosphate [Mass/Vol] 3.3 mg/dL 2.5 - 4 .5 mg/dL [facility] Work Phone: Potassium [Moles/Vol] 4.0 mmol/L 3.5 - 5.1 mmol/L [facility] Work Phone: Sodium [Moles/Vol] 139 mmol/L 135 - 145 mmol/L [facility] Work Phone: Urea nitrogen (BldV) [Mass/Vol] 26 mg/dL High 9 - 20 mg/dL [facility] Work Phone: Test Performed by [facility], [address] [place] [address] Eric. , [place] [address] [facility] Work Phone: [facility] Work Phone: CBC Auto DifferentialOrdered By: Noris Youngblood on 07-25-2021 Absolute Baso # 0.0 10*3/uL 0.0 - 0.2 10*3/uL [facility] Work Phone: Absolute Neut # 5.8 10*3/uL 1.8 - 7.0 10*3/uL [facility] Work Phone: Basophils/100 WBC (Bld) 0.3 % 0.0 - 2.0 % [facility] Work Phone: Eosinophils (Bld) [#/Vol] 0.1 10*3/uL 0.0 - 0.5 10*3/uL [facility] Work Phone: 222 Eosinophils/100 WBC (Bld) 1.6 % 1.0 - 6.0 % [facility] Work Phone: Granulocytes/100 WBC (Bld) 74.9 % 40.0 - 80.0 % [facility] Work Phone: Hematocrit (Bld) [Volume fraction] 36.9 % 35.0 - 47.0 % [facility] Work Phone: Hemoglobin.gastrointes tinal spec 1 Ql (Stl) 12.2 g/dL 11.7 - 16.0 g/dL [facility] Work Phone: Interpretation and review of laboratory results Abnormal [facility] Work Phone: [phone]() 222 Lymphocytes (Bld) [#/Vol] 1.2 10*3/uL 1.0 - 4.3 10*3/uL [facility] Work Phone: 1() 222 Lymphocytes/100 WBC (Bld) 15.8 % Low 20.0 - 40.0 % [facility] Work Phone: 1() 222 MCH (RBC) [Entitic mass] 31.0 pg 26.0 - 34.0 pg [facility] Work Phone: 1() 222 MCHC (RBC) [Mass/Vol] 33.1 % 32.0 - 36.0 % [facility] Work Phone: 1() 222 MCV (RBC) [Entitic vol] 93.6 fL 79.0 - 98.0 fL [employer] Work Phone: () 222 Monocytes (Bld) [#/Vol] 0.6 10*3/uL 0.0 - 0.8 10*3/uL [facility] Work Phone: 1() 222 Monocytes/100 WBC (Bld) 7.4 % 2.0 - 10.0 % [facility] Work Phone: 1() 222 Platelet distribution width (Bld) [Ratio] 14.5 % 11.5 - 14.5 % [employer] [employer] Work Phone: 1() 222 Platelet mean volume (Bld) [Entitic vol] 7.5 fL 7.4 - 10.4 fL [facility] Work Phone: 1() 222 Platelets (Bld) [#/Vol] 301 10*3/uL 140 - 440 10*3/uL [facility] Work Phone: 1() 222 RBC (Bld) [#/Vol] 3.94 10*6/uL 3.80 - 5.20 10*6/uL [facility] Work Phone: [phone] WBC (Bld) [#/Vol] 7.7 10*3/uL 3.6 - 10.7 10*3/uL [facility] Work Phone: [phone] Test Performed by [facility], [facility] [address] , [place] [id number] [facility] Work Phone: [phone] [facility] Work Phone: [phone] CBC Auto DifferentialOrdered By: Leidy Benz on 07-25-2021 Absolute Baso # 0.0 10*3/uL 0.0 - 0.2 10*3/uL [facility] Work Phone: [phone] Absolute Neut # 5.9 10*3/uL 1.8 - 7.0 10*3/uL [facility] Work Phone: [phone]) 222 Basophils/100 WBC (Bld) 0.3 % 0.0 - 2.0 % [facility] Work Phone: [phone]) 222 Eosinophils (Bld) [#/Vol] 0.2 10*3/uL 0.0 - 0.5 10*3/uL [facility] Work Phone: 1) 222 Eosinophils/100 WBC (Bld) 2.0 % 1.0 - 6.0 % [facility] Work Phone: 1) 222 Granulocytes/100 WBC (Bld) 74.9 % 40.0 - 80.0 % [facility] Work Phone: ) Hematocrit (Bld) [Volume fraction] 37.5 % 35.0 - 47.0 % [facility] Work Phone: [phone]) 222 Hemoglobin.gastrointes tinal spec 1 Ql (Stl) 12.2 g/dL 11.7 - 16.0 g/dL [facility] Work Phone: [phone] Interpretation and review of laboratory results Abnormal [facility] Work Phone: [phone]) 222 Lymphocytes (Bld) [#/Vol] 1.3 10*3/uL 1.0 - 4.3 10*3/uL [facility] Work Phone: [phone]) 222 Lymphocytes/100 WBC (Bld) 16.3 % Low 20.0 - 40.0 % [facility] Work Phone: [phone] MCH (RBC) [Entitic mass] 30.7 pg 26.0 - 34.0 pg [facility] Work Phone: [phone]) 222 MCHC (RBC) [Mass/Vol] 32.5 % 32.0 - 36.0 % [facility] Work Phone: ) MCV (RBC) [Entitic vol] 94.4 fL 79.0 - 98.0 fL [facility] Work Phone: [phone] Monocytes (Bld) [#/Vol] 0.5 10*3/uL 0.0 - 0.8 10*3/uL [employer] Work Phone: [phone] Monocytes/100 WBC (Bld) 6.5 % 2.0 - 10.0 % [facility] Work Phone: [phone] Platelet distribution width (Bld) [Ratio] 14.4 % 11.5 - 14.5 % [facility] Work Phone: [phone] Platelet mean volume (Bld) [Entitic vol] 7.5 fL 7.4 - 10.4 fL [facility] Work Phone: [phone] Platelets (Bld) [#/Vol] 294 10*3/uL 140 - 440 10*3/uL [facility] Work Phone: [phone] RBC (Bld) [#/Vol] 3.97 10*6/uL 3.80 - 5.20 10*6/uL [facility] Work Phone: [phone] WBC (Bld) [#/Vol] 7.9 10*3/uL 3.6 - 10.7 10*3/uL [facility] Work Phone: [phone] Test Performed by [facility], [address] [place], [place] [address] [facility] Work Phone: [phone] [facility] Work Phone: [phone] Comp Metabolic Panelon 07-25 ALT [Catalytic activity/Vol] 36 U/L High 0-34 [facility] [employer] Comment on above: Result Comment: The ALT test is performed by an updated assay method. Please note that the reference intervals have been changed and are now sex specific. Performed By: #### H EMDF, RENL3, TPUR, CRTUR #### [facility] [address] [place] [address] #### PTH3, VD25H #### [facility] [employer] [facility] [address] [place] [address] Calcium [Mass/Vol] 10.5 mg/dL High 8.4-10.4 [facility] Comment on above: Performed By: #### H EMDF, RENL3, TPUR, CRTUR #### [facility] [address] [place] [address] #### PTH3, VD25H #### [facility] [address] [place] [address] ALP [Catalytic activity/Vol] 115 U/L Normal 38-126 [facility] Comment on above: Performed By: #### H EMDF, RENL3, TPUR, CRTUR #### [facility] [address] [place] [address] #### PTH3, VD25H #### [facility] [address] [place] [address] Anion gap [Moles/Vol] 5 mmol/L Normal 3-13 [facility] Comment on above: Performed By: #### H EMDF, RENL3, TPUR, CRTUR #### [facility] [address] [place] [address] #### PTH3, VD25H #### [facility] [address] [place] [address] AST [Catalytic activity/Vol] 41 U/L Normal 15-46 [facility] Comment on above: Performed By: #### H EMDF, RENL3, TPUR, CRTUR #### [facility] [address] [place] [address] #### PTH3, VD25H #### [facility] [address] [place] [address] Bilirubin [Mass/Vol] 0.5 mg/dL Normal 0.2-1.3 [facility] Comment on above: Performed By: #### H EMDF, RENL3, TPUR, CRTUR #### [facility] [address] [place] [address] #### PTH3, VD25H #### [facility] [address] [place] [address] CO2 [Moles/Vol] 27 mmol/L Normal 22-30 [facility] Comment on above: Performed By: #### H EMDF, RENL3, TPUR, CRTUR #### [facility] [address] [place] [address] #### PTH3, VD25H #### [facility] [address] [place] [address] Creatinine [Mass/Vol] 1.31 mg/dL High 0.52-1.25 [facility] Comment on above: Performed By: #### H EMDF, RENL3, TPUR, CRTUR #### [facility] [address] [place] [address] #### PTH3, VD25H #### [facility] [address] [place] [address] GFR/1.73 sq M.predicted among blacks MDRD (S/P/Bld) [Vol rate/Area] 44.3 mL/min/{1.73_m2} Abnormal >60 [facility] Comment on above: Performed By: #### H EMDF, RENL3, TPUR, CRTUR #### [facility] [address] [place] [address] #### PTH3, VD25H #### [facility] [address] [facility] [place] [address] GFR/1.73 sq M.predicted among non-blacks MDRD (S/P/Bld) [Vol rate/Area] 38.2 mL/min/{1.73_m2} Abnormal >60 [facility] Comment on above: Result Comment: KDIG O guidelines provide the following GFR categories: Stage GFR(ml/min/1.73 m2) Terms G1 >=90 Normal or high G2 60-89 Mildly decreased* G3a 45-59 Mildly to moderately decreased G3b 30-44 Moderately to severely decreased G4 15-29 Severely decreased G5 <15 Kidney failure *Relative to young adult level. In the absence of evidence of kidney damage, neither GFR category G1 nor G2 fulfill the criteria for CKD. The CKD-EPI equation is validated in individuals 18 years of age and older. Currently the best equation for estimating glomerular filtration rate (GFR) from serum creatinine in children is the Bedside Zapata equation. It is less accurate in patients with extremes of muscle mass, restriction of dietary protein, ingestion of creatine, extra-renal metabolism of creatinine, or treatment with medications that affect renal tubular creatinine secretion. Performed By: #### H EMDF, RENL3, TPUR, CRTUR #### [facility] [address] [place] [address] #### PTH3, VD25H #### [facility] [address] [place] [address] Glucose [Mass/Vol] 160 mg/dL High 70-100 [facility] Comment on above: Performed By: #### H EMDF, RENL3, TPUR, CRTUR #### [facility] [address] [place] [address] #### PTH3, VD25H #### [facility] [address] [place] [address] Protein [Mass/Vol] 6.8 g/dL Normal 6.3-8.2 [facility] Comment on above: Performed By: #### H EMDF, RENL3, TPUR, CRTUR #### [facility] [address] [place] [address] #### PTH3, VD25H #### [facility] [address] [place] [address] Urea nitrogen [Mass/Vol] 32 mg/dL High 9-20 [facility] Comment on above: Performed By: #### H EMDF, RENL3, TPUR, CRTUR #### [facility] [address] [place] [address] #### PTH3, VD25H #### [facility] [address] [place] [address] Potassium [Moles/Vol] 4.3 mmol/L Normal 3.5-5.1 [facility] Comment on above: Performed By: #### H EMDF, RENL3, TPUR, CRTUR #### [facility] [address] [place] [address] #### PTH3, VD25H #### [facility] [address] [place] [address] Sodium [Moles/Vol] 139 mmol/L Normal 135-145 [facility] Comment on above: Performed By: #### H EMDF, RENL3, TPUR, CRTUR #### [facility] [address] [place] [address] #### PTH3, VD25H #### [facility] [address] [place] [address] Albumin [Mass/Vol] 3.9 g/dL Normal 3.5-5.0 [facility] Comment on above: Performed By: #### H EMDF, RENL3, TPUR, CRTUR #### [facility] [address] [place] [address] #### PTH3, VD25H #### [facility] [address] [place] [address] Chloride [Moles/Vol] 107 mmol/L Normal 98-107 [facility] Comment on above: Performed By: #### H EMDF, RENL3, TPUR, CRTUR #### [facility] [address] [place] [address] #### PTH3, VD25H #### [facility] [address] [place] [address] Comprehensive Metabolic Pane lOrdered By: Noris Youngblood on 07-25-2021 Albumin [Mass/Vol] 3.9 g/dL 3.5 - 5.0 g/dL [facility] Work Phone: [phone] ALP (Bld) [Catalytic activity/Vol] 115 U/L 38 - 126 U/L [facility] Work Phone: [phone] ALT [Catalytic activity/Vol] 36 U/L High 0 - 34 U/L [facility] Work Phone: [phone] Comment on above: The ALT test is perf ormed by an updated assay method. Please note that the reference intervals have been changed and are now sex specific. Anion gap [Moles/Vol] 5 mmol/L 3 - 13 mmol/L [facility] Work Phone: AST [Catalytic activity/Vol] 41 U/L 15 - 46 U/L [facility] Work Phone: [phone] Bilirubin [Mass/Vol] 0.5 mg/dL 0.2 - 1 .3 mg/dL [facility] Work Phone: [phone] Calcium [Mass/Vol] 10.5 mg/dL High 8.4 - 10. 4 mg/dL [facility] Work Phone: [phone] Chloride [Moles/Vol] 107 mmol/L 98 - 10 7 mmol/L [facility] Work Phone: [phone] CO2 [Moles/Vol] 27 mmol/L 22 - 30 mmol/L [facility] Work Phone: [phone] Creatinine [Mass/Vol] 1.31 mg/dL High 0.52 - 1.25 mg/dL [facility] Work Phone: [phone] EGFR IF NonAfrican Sammar[place] 38.2 mL/min Abnormal >60 [facility] Work Phone: [phone] Comment on above: KDIGO guidelines pro vide the following GFR categories: Stage GFR(ml/min/1.73 m2) Terms G1 >=90 Normal or high G2 60-89 Mildly decreased* G3a 45-59 Mildly to moderately decreased G3b 30-44 Moderately to severely decreased G4 15-29 Severely decreased G5 <15 Kidney failure *Relative to young adult level. In the absence of evidence of kidney damage, neither GFR category G1 nor G2 fulfill the criteria for CKD. The CKD-EPI equation is validated in individuals 18 years of age and older. Currently the best equation for estimating glomerular filtration rate (GFR) from serum creatinine in children is the Bedside Zapata equation. It is less accurate in patients with extremes of muscle mass, restriction of dietary protein, ingestion of creatine, extra-renal metabolism of creatinine, or treatment with medications that affect renal tubular creatinine secretion. Free PSA/Total PSA [Mass fraction] 6.8 g/dL 6.3 - 8.2 g/dL [facility] Work Phone: [phone] GFR/1.73 sq M.predicted among blacks MDRD (S/P/Bld) [Vol rate/Area] 44.3 mL/min/{1.73_m2} Abnormal >60 [facility] Work Phone: [phone] Glucose [Mass/Vol] 160 mg/dL High 70 - 100 mg/dL [facility] Work Phone: [phone] Potassium [Moles/Vol] 4.3 mmol/L 3.5 - 5.1 mmol/L [facility] Work Phone: [phone] Sodium [Moles/Vol] 139 mmol/L 135 - 145 mmol/L [facility] Work Phone: [phone] Urea nitrogen (BldV) [Mass/Vol] 32 mg/dL High 9 - 20 mg/dL [facility] Work Phone: Creatinine, Random UrineOrde red By: Leidy Benz on 07-25-2021 Creatinine (U) [Mass/Vol] 67.2 mg/dL No Range [facility] Work Phone: Creatinine, Ur Randomon 06-30 Creatinine, Ur Random 67.2 mg/dL Normal No Range [facility] Comment on above: Performed By: #### H EMDF, RENL3, TPUR, CRTUR #### [facility] [address] [place] [address] #### PTH3, VD25H #### [facility] [address] [place] [address] Hemoglobin A1Con 07-25-2021 Glucose [Mass/Vol] 154 mg/dL Normal [facility] Comment on above: Performed By: #### H EMDF, RENL3, TPUR, CRTUR #### [facility] [address] [place] [address] #### PTH3, VD25H #### [facility] [address] [facility] [place] [address] HbA1c (Bld) [Mass fraction] 7.0 % Abnormal [facility] Comment on above: Result Comment: Norm al less than 5.7% Prediabetes 5.7% to 6.4% Diabetes 6.5% or higher --HgbA1C levels may not be accurate in patients who have renal disease, received recent blood transfusions, are anemic, or who have dyshemoglobinemia. Performed By: #### H EMDF, RENL3, TPUR, CRTUR #### [facility] [address] [place] [address] #### PTH3, VD25H #### [facility] [address] [facility] [place] [address] Hemoglobin [id number] By: Armando Shi on 07-25-2021 eAG 154 mg/dL [facility] Work Phone: HbA1c (Bld) [Mass fraction] 7.0 % Abnormal [facility] Work Phone: Comment on above: Normal less than 5.7 % Prediabetes 5.7% to 6.4% Diabetes 6.5% or higher --HgbA1C levels may not be accurate in patients who have renal disease, received recent blood transfusions, are anemic, or who have dyshemoglobinemia. Interpretation and review of laboratory results Abnormal [facility] Work Phone: Test Performed by [facility], [address] , [place], [place] [address] Work Phone: [facility] Work Phone: Hemogram w/ Autodiffon 07-25 Abs Baso Cnt 0.0 10*3/uL Normal 0.0-0.2 [facility] Comment on above: Performed By: #### H EMDF, RENL3, TPUR, CRTUR #### [facility] [address] [place] [address] #### PTH3, VD25H #### [facility] [address] [place] [address] Abs Neutrophile Cnt 5.8 10*3/uL Normal 1.8-7.0 [facility] Comment on above: Performed By: #### H EMDF, RENL3, TPUR, CRTUR #### [facility] [address] [place] [address] #### PTH3, VD25H #### [facility] [address] [place] [address] Basophils/100 WBC (Bld) 0.3 % Normal 0.0-2.0 [facility] Comment on above: Performed By: #### H EMDF, RENL3, TPUR, CRTUR #### [facility] [address] [place] [address] #### PTH3, VD25H #### [facility] [address] [place] [address] Eosinophils (Bld) [#/Vol] 0.1 10*3/uL Normal 0.0-0.5 [facility] Comment on above: Performed By: #### H EMDF, RENL3, TPUR, CRTUR #### [facility] [address] [place] [address] #### PTH3, VD25H #### [facility] [address] [place] [address] Eosinophils/100 WBC (Bld) 1.6 % Normal 1.0-6.0 [facility] Comment on above: Performed By: #### H EMDF, RENL3, TPUR, CRTUR #### [facility] [address] [place] [address] #### PTH3, VD25H #### [facility] [address] [place] [address] Erythrocyte distribution width (RBC) [Ratio] 14.5 % Normal 11.5-14.5 [facility] Comment on above: Performed By: #### H EMDF, RENL3, TPUR, CRTUR #### [facility] [address] [place] [address] #### PTH3, VD25H #### [facility] [address] [place] [address] Granulocytes/100 WBC (Bld) 74.9 % Normal 40.0-80.0 [facility] Comment on above: Performed By: #### H EMDF, RENL3, TPUR, CRTUR #### [facility] [address] [place] [address] #### PTH3, VD25H #### [facility] [address] [place] [address] Hematocrit (Bld) [Volume fraction] 36.9 % Normal 35.0-47.0 [facility] Comment on above: Performed By: #### H EMDF, RENL3, TPUR, CRTUR #### [facility] [address] [place] [address] #### PTH3, VD25H #### [facility] [address] [place] [address] Hemoglobin (Bld) [Mass/Vol] 12.2 g/dL Normal 11.7-16.0 [facility] Comment on above: Performed By: #### H EMDF, RENL3, TPUR, CRTUR #### [facility] [address] [place] [address] #### PTH3, VD25H #### [facility] [address] [place] [address] Lymphocytes (Bld) [#/Vol] 1.2 10*3/uL Normal 1.0-4.3 [facility] Comment on above: Performed By: #### H EMDF, RENL3, TPUR, CRTUR #### [facility] [address] [place] [address] #### PTH3, VD25H #### [facility] [address] [place] [address] Lymphocytes/100 WBC (Bld) 15.8 % Low 20.0-40.0 [facility] Comment on above: Performed By: #### H EMDF, RENL3, TPUR, CRTUR #### [facility] [address] [place] [address] #### PTH3, VD25H #### [facility] [address] [place] [address] MCH (RBC) [Entitic mass] 31.0 pg Normal 26.0-34.0 [facility] Comment on above: Performed By: #### H EMDF, RENL3, TPUR, CRTUR #### [facility] [address] [place] [address] #### PTH3, VD25H #### [facility] [address] [place] [address] MCHC 33.1 % Normal 32.0-36.0 [facility] Comment on above: Performed By: #### H EMDF, RENL3, TPUR, CRTUR #### [facility] [address] [place] [address] #### PTH3, VD25H #### [facility] [address] [place] [address] MCV (RBC) [Entitic vol] 93.6 fL Normal 79.0-98.0 [facility] Comment on above: Performed By: #### H EMDF, RENL3, TPUR, CRTUR #### [facility] [address] [place] [address] #### PTH3, VD25H #### [facility] [address] [place] [address] Monocytes (Bld) [#/Vol] 0.6 10*3/uL Normal 0.0-0.8 [facility] Comment on above: Performed By: #### H EMDF, RENL3, TPUR, CRTUR #### [facility] [address] [place] [address] #### PTH3, VD25H #### [facility] [address] [place] [address] Monocytes/100 WBC (Bld) 7.4 % Normal 2.0-10.0 [facility] Comment on above: Performed By: #### H EMDF, RENL3, TPUR, CRTUR #### [facility] [address] [place] [address] #### PTH3, VD25H #### [facility] [address] [place] [address] Platelet mean volume (Bld) [Entitic vol] 7.5 fL Normal 7.4-10.4 [facility] Comment on above: Performed By: #### H EMDF, RENL3, TPUR, CRTUR #### [facility] [address] [place] [address] #### PTH3, VD25H #### [facility] [address] [place] [address] Platelets (Bld) [#/Vol] 301 10*3/uL Normal 140-440 [facility] Comment on above: Performed By: #### H EMDF, RENL3, TPUR, CRTUR #### [facility] [address] [place] [address] #### PTH3, VD25H #### [facility] [address] [place] [address] RBC (Bld) [#/Vol] 3.94 10*6/uL Normal 3.80-5.20 [facility] Comment on above: Performed By: #### H EMDF, RENL3, TPUR, CRTUR #### [facility] [address] [place] [address] #### PTH3, VD25H #### [facility] [address] [place] [address] WBC (Bld) [#/Vol] 7.7 10*3/uL Normal 3.6-10.7 [facility] Comment on above: Performed By: #### H EMDF, RENL3, TPUR, CRTUR #### [facility] [address] [place] [address] #### PTH3, VD25H #### [facility] [address] [place] [address] Abs Baso Cnt 0.0 10*3/uL Normal 0.0-0.2 [facility] Comment on above: Performed By: #### H EMDF, RENL3, TPUR, CRTUR #### [facility] [address] [place] [address] #### PTH3, VD25H #### [facility] [address] [place] [address] Abs Neutrophile Cnt 5.9 10*3/uL Normal 1.8-7.0 [facility] Comment on above: Performed By: #### H EMDF, RENL3, TPUR, CRTUR #### [facility] [address] [place] [address] #### PTH3, VD25H #### [facility] [address] [place] [address] Basophils/100 WBC (Bld) 0.3 % Normal 0.0-2.0 [facility] Comment on above: Performed By: #### H EMDF, RENL3, TPUR, CRTUR #### [facility] [address] [place] [address] #### PTH3, VD25H #### [facility] [address] [place] [address] Eosinophils (Bld) [#/Vol] 0.2 10*3/uL Normal 0.0-0.5 [facility] Comment on above: Performed By: #### H EMDF, RENL3, TPUR, CRTUR #### [facility] [address] [place] [address] #### PTH3, VD25H #### [facility] [address] [place] [address] Eosinophils/100 WBC (Bld) 2.0 % Normal 1.0-6.0 [facility] Comment on above: Performed By: #### H EMDF, RENL3, TPUR, CRTUR #### [facility] [address] [place] [address] #### PTH3, VD25H #### [facility] [address] [place] [address] Erythrocyte distribution width (RBC) [Ratio] 14.4 % Normal 11.5-14.5 [facility] Comment on above: Performed By: #### H EMDF, RENL3, TPUR, CRTUR #### [facility] [address] [place] [address] #### PTH3, VD25H #### [facility] [address] [place] [address] Granulocytes/100 WBC (Bld) 74.9 % Normal 40.0-80.0 [facility] Comment on above: Performed By: #### H EMDF, RENL3, TPUR, CRTUR #### [facility] [address] [place] [address] #### PTH3, VD25H #### [facility] [address] [place] [address] Hematocrit (Bld) [Volume fraction] 37.5 % Normal 35.0-47.0 [facility] Comment on above: Performed By: #### H EMDF, RENL3, TPUR, CRTUR #### [facility] [address] [place] [address] #### PTH3, VD25H #### [facility] [address] [place] [address] Hemoglobin (Bld) [Mass/Vol] 12.2 g/dL Normal 11.7-16.0 [facility] Comment on above: Performed By: #### H EMDF, RENL3, TPUR, CRTUR #### [facility] [address] [place] [address] #### PTH3, VD25H #### [facility] [address] [place] [address] Lymphocytes (Bld) [#/Vol] 1.3 10*3/uL Normal 1.0-4.3 [facility] Comment on above: Performed By: #### H EMDF, RENL3, TPUR, CRTUR #### [facility] [address] [place] [address] #### PTH3, VD25H #### [facility] [address] [place] [address] Lymphocytes/100 WBC (Bld) 16.3 % Low 20.0-40.0 [facility] Comment on above: Performed By: #### H EMDF, RENL3, TPUR, CRTUR #### [facility] [address] [place] [address] #### PTH3, VD25H #### [facility] [address] [place] [address] MCH (RBC) [Entitic mass] 30.7 pg Normal 26.0-34.0 [facility] Comment on above: Performed By: #### H EMDF, RENL3, TPUR, CRTUR #### [facility] [address] [place] [address] #### PTH3, VD25H #### [facility] [address] [place] [address] MCHC 32.5 % Normal 32.0-36.0 [facility] Comment on above: Performed By: #### H EMDF, RENL3, TPUR, CRTUR #### [facility] [address] [place] [address] #### PTH3, VD25H #### [facility] [address] [place] [address] MCV (RBC) [Entitic vol] 94.4 fL Normal 79.0-98.0 [facility] Comment on above: Performed By: #### H EMDF, RENL3, TPUR, CRTUR #### [facility] [address] [place] [address] #### PTH3, VD25H #### [facility] [address] [place] [address] Monocytes (Bld) [#/Vol] 0.5 10*3/uL Normal 0.0-0.8 [facility] Comment on above: Performed By: #### H EMDF, RENL3, TPUR, CRTUR #### [facility] [address] [place] [address] #### PTH3, VD25H #### [facility] [address] [place] [address] Monocytes/100 WBC (Bld) 6.5 % Normal 2.0-10.0 [facility] Comment on above: Performed By: #### H EMDF, RENL3, TPUR, CRTUR #### [facility] [address] [place] [address] #### PTH3, VD25H #### [facility] [address] [place] [address] Platelet mean volume (Bld) [Entitic vol] 7.5 fL Normal 7.4-10.4 [facility] Comment on above: Performed By: #### H EMDF, RENL3, TPUR, CRTUR #### [facility] [address] [place] [address] #### PTH3, VD25H #### [facility] [address] [place] [address] Platelets (Bld) [#/Vol] 294 10*3/uL Normal 140-440 [facility] Comment on above: Performed By: #### H EMDF, RENL3, TPUR, CRTUR #### [facility] [address] [place] [address] #### PTH3, VD25H #### [facility] [address] [place] [address] RBC (Bld) [#/Vol] 3.97 10*6/uL Normal 3.80-5.20 [facility] Comment on above: Performed By: #### H EMDF, RENL3, TPUR, CRTUR #### [facility] [address] [place] [address] #### PTH3, VD25H #### [facility] [address] [place] [address] WBC (Bld) [#/Vol] 7.9 10*3/uL Normal 3.6-10.7 [facility] Comment on above: Performed By: #### H EMDF, RENL3, TPUR, CRTUR #### [facility] [address] [place] [address] #### PTH3, VD25H #### [facility] [address] [place] [address] LDL Cholesterol, DirectOrder ed By: Noris Youngblood on 07-25-2021 Cholesterol in LDL [Mass/Vol] 125 mg/dL Abnormal <100 [facility] Work Phone: LDL-Chol, Directon LDL-Chol,Direct 125 mg/dL Abnormal < 100 [facility] Comment on above: Performed By: #### H EMDF, RENL3, TPUR, CRTUR #### [facility] [address] [place] [address] #### PTH3, VD25H #### [facility] [address] [place] [address] Lipid PanelOrdered By: Noris Youngblood on 07-25-2021 Cholesterol [Mass/Vol] 229 mg/dL Abnormal <200 [facility] Work Phone: Cholesterol in HDL [Mass/Vol] 65 mg/dL High 40 - 60 mg/dL [facility] Work Phone: Cholesterol in LDL [Mass/Vol] 139 mg/dL Abnormal <100 [facility] Work Phone: Cholesterol.total/Chol esterol in HDL [Mass ratio] 4 {ratio} [facility] Work Phone: Comment on above: Ref Range: < 3 Low Risk for CHD 3-6 Mod Risk for CHD > 6 High Risk for CHD Triglyceride [Mass/Vol] 125 mg/dL <150 [facility] Work Phone: Lipid Panelon 07-25-2021 Chol/HDL 4 Normal [facility] Comment on above: Result Comment: Ref Range: < 3 Low Risk for CHD 3-6 Mod Risk for CHD > 6 High Risk for CHD Performed By: #### H EMDF, RENL3, TPUR, CRTUR #### [facility] [address] [place] [address] #### PTH3, VD25H #### [facility] [address] [place] [address] Cholesterol in HDL [Mass/Vol] 65 mg/dL High 40-60 [facility] Comment on above: Performed By: #### H EMDF, RENL3, TPUR, CRTUR #### [facility] [address] [place] [address] #### PTH3, VD25H #### [facility] [address] [place] [address] Low Density Lipoprotein 139 mg/dL Abnormal <100 [facility] Comment on above: Performed By: #### H EMDF, RENL3, TPUR, CRTUR #### [facility] [address] [place] [address] #### PTH3, VD25H #### [facility] [address] [place] [address] Triglyceride [Mass/Vol] 125 mg/dL Normal <150 [facility] Comment on above: Performed By: #### H EMDF, RENL3, TPUR, CRTUR #### [facility] [address] [place] [address] #### PTH3, VD25H #### [facility] [address] [place] [address] Cholesterol [Mass/Vol] 229 mg/dL Abnormal < 200 [facility] Comment on above: Performed By: #### H EMDF, RENL3, TPUR, CRTUR #### [facility] [address] [place] [address] #### PTH3, VD25H #### [facility] [address] [place] [address] No Panel InformationOrdered By: Noris Youngblood on 07-25-2021 Interpretation and review of laboratory results Abnormal [facility] Work Phone: 1) Test Performed by [facility], [address] [place] [place] [address] [facility] Work Phone: 1) [facility] Work Phone: 1) No Panel InformationOrdered By: Leidy Benz on 07-25-2021 Test Performed by [facility], [address] , [place] [address] [facility] Work Phone: 1) [facility] Work Phone: 1) PTH, Intacton 07-25-2021 PTH, Intact 52.8 pg/mL Normal 8.0-54.0 [facility] Comment on above: Performed By: #### H EMDF, RENL3, TPUR, CRTUR #### [facility] [address] [place] [address] #### PTH3, VD25H #### [facility] [address] [place] [address] PTH, Intact 53.2 pg/mL Normal 8.0-54.0 [facility] Comment on above: Performed By: #### H EMDF, RENL3, TPUR, CRTUR #### [facility] [address] [place] [address] #### PTH3, VD25H #### [facility] [address] [place] [address] PTH, IntactOrdered By: Noris Youngblood on 07-25-2021 Pth Intact 53.2 pg/mL 8.0 - 54.0 pg/mL [facility] Work Phone: [phone] Test Performed by [facility], [address], [place], [place] [address] [facility] Work Phone: 1) [facility] Work Phone: [phone] PTH, IntactOrdered By: Venancio Fields on 07-25-2021 Pth Intact 52.8 pg/mL 8.0 - 54.0 pg/mL [facility] Work Phone: Protein, Ur Randomon 021 Protein, Ur Random 183 mg/dL High No Range [facility] Comment on above: Performed By: #### H EMDF, RENL3, TPUR, CRTUR #### [facility] [address] [place] [address] #### PTH3, VD25H #### [facility] [address] [place] [address] Protein, urine, randomOrdere d By: Leidy Benz on 07-25-2021 Interpretation and review of laboratory results Abnormal [facility] Work Phone: Protein (U) [Mass/Vol] 183 mg/dL High No Range [facility] Work Phone: Renal Functionon 07-25-2021 Anion gap [Moles/Vol] 5 mmol/L Normal 3-13 [facility] Comment on above: Performed By: #### H EMDF, RENL3, TPUR, CRTUR #### [facility] [address] [place] [address] #### PTH3, VD25H #### [facility] [address] [place] [address] Calcium [Mass/Vol] 10.4 mg/dL Normal 8.4-10.4 [facility] Comment on above: Performed By: #### H EMDF, RENL3, TPUR, CRTUR #### [facility] [address] [place] [address] #### PTH3, VD25H #### [facility] [address] [place] [address] CO2 [Moles/Vol] 27 mmol/L Normal 22-30 [facility] Comment on above: Performed By: #### H EMDF, RENL3, TPUR, CRTUR #### [facility] [address] [place] [address] #### PTH3, VD25H #### [facility] [address] [place] [address] Glucose [Mass/Vol] 160 mg/dL High 70-100 [facility] Comment on above: Performed By: #### H EMDF, RENL3, TPUR, CRTUR #### [facility] [address] [place] [address] #### PTH3, VD25H #### [facility] [address] [place] [address] Phosphate [Mass/Vol] 3.8 mg/dL Normal 2.5-4.5 [facility] Comment on above: Performed By: #### H EMDF, RENL3, TPUR, CRTUR #### [facility] [address] [place] [address] #### PTH3, VD25H #### [place] [address] [place] [address] Urea nitrogen [Mass/Vol] 32 mg/dL High 9-20 [facility] Comment on above: Performed By: #### H EMDF, RENL3, TPUR, CRTUR #### [facility] [address] [place] [address] #### PTH3, VD25H #### [facility] [address] [place] [address] Creatinine [Mass/Vol] 1.30 mg/dL High 0.52-1.25 [facility] Comment on above: Performed By: #### H EMDF, RENL3, TPUR, CRTUR #### [facility] [address] [place] [address] #### PTH3, VD25H #### [facility] [address] [place] [address] GFR/1.73 sq M.predicted among blacks MDRD (S/P/Bld) [Vol rate/Area] 44.7 mL/min/{1.73_m2} Abnormal >60 [facility] Comment on above: Performed By: #### H EMDF, RENL3, TPUR, CRTUR #### [facility] [address] [place] [address] #### PTH3, VD25H #### [place] [address] [place] [address] GFR/1.73 sq M.predicted among non-blacks MDRD (S/P/Bld) [Vol rate/Area] 38.6 mL/min/{1.73_m2} Abnormal >60 [facility] Comment on above: Result Comment: KDIG O guidelines provide the following GFR categories: Stage GFR(ml/min/1.73 m2) Terms G1 >=90 Normal or high G2 60-89 Mildly decreased* G3a 45-59 Mildly to moderately decreased G3b 30-44 Moderately to severely decreased G4 15-29 Severely decreased G5 <15 Kidney failure *Relative to young adult level. In the absence of evidence of kidney damage, neither GFR category G1 nor G2 fulfill the criteria for CKD. The CKD-EPI equation is validated in individuals 18 years of age and older. Currently the best equation for estimating glomerular filtration rate (GFR) from serum creatinine in children is the Bedside Zapata equation. It is less accurate in patients with extremes of muscle mass, restriction of dietary protein, ingestion of creatine, extra-renal metabolism of creatinine, or treatment with medications that affect renal tubular creatinine secretion. Performed By: #### H EMDF, RENL3, TPUR, CRTUR #### [facility] [address] [place] [address] #### PTH3, VD25H #### [place] [address] [place] [address] Albumin [Mass/Vol] 4.0 g/dL Normal 3.5-5.0 [facility] Comment on above: Performed By: #### H EMDF, RENL3, TPUR, CRTUR #### [facility] [address] [place] [address] #### PTH3, VD25H #### [facility] [address] [place] [address] Potassium [Moles/Vol] 4.2 mmol/L Normal 3.5-5.1 [facility] Comment on above: Performed By: #### H EMDF, RENL3, TPUR, CRTUR #### [facility] [address] [place] [address] #### PTH3, VD25H #### [place] [address] [place] [address] Sodium [Moles/Vol] 139 mmol/L Normal 135-145 [facility] Comment on above: Performed By: #### H EMDF, RENL3, TPUR, CRTUR #### [facility] [address] [place] [address] #### PTH3, VD25H #### [facility] [address] [place] [address] Chloride [Moles/Vol] 107 mmol/L Normal 98-107 [facility] Comment on above: Performed By: #### H EMDF, RENL3, TPUR, CRTUR #### [facility] [address] [place] [address] #### PTH3, VD25H #### [facility] [address] [place] [address] Renal Function PanelOrdered By: Leidy Benz on 07-25-2021 Albumin [Mass/Vol] 4.0 g/dL 3.5 - 5.0 g/dL [facility] Work Phone: Anion gap [Moles/Vol] 5 mmol/L 3 - 13 mmol/L [facility] Work Phone: Calcium [Mass/Vol] 10.4 mg/dL 8.4 - 10. 4 mg/dL [facility] Work Phone: Chloride [Moles/Vol] 107 mmol/L 98 - 10 7 mmol/L [facility] Work Phone: CO2 [Moles/Vol] 27 mmol/L 22 - 30 mmol/L [facility] Work Phone: Creatinine [Mass/Vol] 1.3 mg/dL High 0.52 - 1.25 mg/dL [facility] Work Phone: EGFR IF NonAfrican [place]ammar[place] 38.6 mL/min Abnormal >60 [facility] Work Phone: [phone] Comment on above: KDIGO guidelines pro vide the following GFR categories: Stage GFR(ml/min/1.73 m2) Terms G1 >=90 Normal or high G2 60-89 Mildly decreased* G3a 45-59 Mildly to moderately decreased G3b 30-44 Moderately to severely decreased G4 15-29 Severely decreased G5 <15 Kidney failure *Relative to young adult level. In the absence of evidence of kidney damage, neither GFR category G1 nor G2 fulfill the criteria for CKD. The CKD-EPI equation is validated in individuals 18 years of age and older. Currently the best equation for estimating glomerular filtration rate (GFR) from serum creatinine in children is the Bedside Zapata equation. It is less accurate in patients with extremes of muscle mass, restriction of dietary protein, ingestion of creatine, extra-renal metabolism of creatinine, or treatment with medications that affect renal tubular creatinine secretion. GFR/1.73 sq M.predicted among blacks MDRD (S/P/Bld) [Vol rate/Area] 44.7 mL/min/{1.73_m2} Abnormal >60 [facility] Work Phone: [phone] Glucose [Mass/Vol] 160 mg/dL High 70 - 100 mg/dL [facility] Work Phone: [phone] Interpretation and review of laboratory results Abnormal [facility] Work Phone: [phone] Phosphate [Mass/Vol] 3.8 mg/dL 2.5 - 4 .5 mg/dL [facility] Work Phone: [phone] Potassium [Moles/Vol] 4.2 mmol/L 3.5 - 5.1 mmol/L [facility] Work Phone: [phone] Sodium [Moles/Vol] 139 mmol/L 135 - 145 mmol/L [facility] Work Phone: [phone] Urea nitrogen (BldV) [Mass/Vol] 32 mg/dL High 9 - 20 mg/dL [facility] Work Phone: [phone] Test Performed by [facility], [address] [place] [address] [place] [place] [address] [facility] Work Phone: [phone] [facility] Work Phone: [phone] TSH without ReflexOrdered By : Noris Youngblood on 07-25-2021 TSH Qn 6.249 u[IU]/mL High 0.465 - 4.680 u[IU]/mL [facility] Work Phone: Thyroid Stim. Hormoneon 06-30 Thyroid Stim. Hormone 6.249 u[IU]/mL High 0.46 5-4.68 0 [facility] Comment on above: Performed By: #### H EMDF, RENL3, TPUR, CRTUR #### [facility] [address] [place] [address] #### PTH3, VD25H #### [facility] [address] [place] [address] Uric AcidOrdered By: Noris cordova on 07-25-2021 Urate [Mass/Vol] 6.4 mg/dL 3.5 - 8.5 mg/dL [facility] Work Phone: Uric Acidon 07-25-2021 Urate [Mass/Vol] 6.4 mg/dL Normal 3.5-8.5 [facility] Comment on above: Performed By: #### H EMDF, RENL3, TPUR, CRTUR #### [facility] [address] [place] [address] #### PTH3, VD25H #### [facility] [address] [place] [address] Vit D 25-OH, Totalon 021 Vit D 25-OH, Total 59 ng/mL Normal 30-100 [facility] Comment on above: Result Comment: Ther apy is based on measurement of Total 25- OHD with the following classification levels: Less than 20 ng/mL: Indicative of Vit D deficiency 20-30 ng/mL: Suggests Vit D insufficiency Optimal: Greater than or equal to 30 ng/mL Test performed by [employer], measuring Total Vitamin D, not individual fractions. Performed By: #### H EMDF, RENL3, TPUR, CRTUR #### [facility] [address] [place] [address] #### PTH3, VD25H #### [facility] [address] [place] [address] Vit D 25-OH, Total 59 ng/mL Normal 30-100 [facility] Comment on above: Result Comment: Ther apy is based on measurement of Total 25- OHD with the following classification levels: Less than 20 ng/mL: Indicative of Vit D deficiency 20-30 ng/mL: Suggests Vit D insufficiency Optimal: Greater than or equal to 30 ng/mL Test performed by [employer], measuring Total Vitamin D, not individual fractions. Performed By: #### H EMDF, RENL3, TPUR, CRTUR #### [facility] [employer] [facility] [address] [place] [address] #### PTH3, VD25H #### [facility] [employer] [facility] [address] [place] [address] Vitamin D 25 HydroxyOrdered By: Noris Youngblood on 07-25-2021 Vit D, 25-Hydroxy 59 ng/mL 30 - 100 ng/mL [employer] Work Phone: [phone] Comment on above: Therapy is based on measurement of Total 25-OHD with the following classification levels: Less than 20 ng/mL: Indicative of Vit D deficiency 20-30 ng/mL: Suggests Vit D insufficiency Optimal: Greater than or equal to 30 ng/mL Test performed by [employer], measuring Total Vitamin D, not individual fractions. Test Performed by [facility], [address] [place], [place] [address] [facility] Work Phone: [phone] [employer] Work Phone: [phone] Vitamin D 25 HydroxyOrdered By: Leidy Benz on 07-25-2021 Vit D, 25-Hydroxy 59 ng/mL 30 - 100 ng/mL [facility] Work Phone: [phone] Comment on above: Therapy is based on measurement of Total 25-OHD with the following classification levels: Less than 20 ng/mL: Indicative of Vit D deficiency 20-30 ng/mL: Suggests Vit D insufficiency Optimal: Greater than or equal to 30 ng/mL Test performed by [employer], measuring Total Vitamin D, not individual fractions. Test Performed by [facility] [employer] [facility], [address] [place], [place] [address] [facility] Work Phone: [phone] [facility] Work Phone: [phone] CBC Auto DifferentialOrdered By: Leidy Benz on 03-08-2021 Absolute Baso # 0.0 10*3/uL 0.0 - 0.2 10*3/uL [facility] Work Phone: [phone] Absolute Neut # 5.5 10*3/uL 1.8 - 7.0 10*3/uL [facility] Work Phone: [phone] Basophils/100 WBC (Bld) 0.3 % 0.0 - 2.0 % [employer] Work Phone: [phone] Eosinophils (Bld) [#/Vol] 0.0 10*3/uL 0.0 - 0.5 10*3/uL [facility] Work Phone: [phone] Eosinophils/100 WBC (Bld) 0.1 % Low 1.0 - 6.0 % [facility] Work Phone: [phone] Granulocytes/100 WBC (Bld) 86.1 % High 40.0 - 80.0 % [facility] Work Phone: [phone] Hematocrit (Bld) [Volume fraction] 38.3 % 35.0 - 47.0 % [employer] Work Phone: [phone] Hemoglobin.gastrointes tinal spec 1 Ql (Stl) 12.8 g/dL 11.7 - 16.0 g/dL [employer] Work Phone: [phone] Interpretation and review of laboratory results Abnormal [employer] Work Phone: [phone] Lymphocytes (Bld) [#/Vol] 0.7 10*3/uL Low 1.0 - 4.3 10*3/uL [facility] Work Phone: [phone] Lymphocytes/100 WBC (Bld) 10.6 % Low 20.0 - 40.0 % [employer] Work Phone: [phone] MCH (RBC) [Entitic mass] 32.1 pg 26.0 - 34.0 pg [facility] Work Phone: [phone] MCHC (RBC) [Mass/Vol] 33.6 % 32.0 - 36.0 % [facility] Work Phone: [phone] MCV (RBC) [Entitic vol] 95.6 fL 79.0 - 98.0 fL [employer] Work Phone: [phone] Monocytes (Bld) [#/Vol] 0.2 10*3/uL 0.0 - 0.8 10*3/uL [facility] Work Phone: [phone] Monocytes/100 WBC (Bld) 2.9 % 2.0 - 10.0 % [facility] Work Phone: Platelet distribution width (Bld) [Ratio] 13.9 % 11.5 - 14.5 % [employer] Work Phone: Platelet mean volume (Bld) [Entitic vol] 7.5 fL 7.4 - 10.4 fL [employer] Work Phone: [phone] Platelets (Bld) [#/Vol] 274 10*3/uL 140 - 440 10*3/uL [employer] Work Phone: [phone] RBC (Bld) [#/Vol] 4.00 10*6/uL 3.80 - 5.20 10*6/uL [employer] Work Phone: [phone] WBC (Bld) [#/Vol] 6.4 10*3/uL 3.6 - 10.7 10*3/uL [employer] Work Phone: Test Performed by [facility], [address] [place] [address] [facility] Work Phone: [facility] Work Phone: Creatinine, Random UrineOrde red By: Leidy Benz on 03-08-2021 Creatinine (U) [Mass/Vol] 151.8 mg/dL No Range [facility] Work Phone: Creatinine, Ur Randomon 02-27 Creatinine, Ur Random 151.8 mg/dL Normal No Range [facility] [employer] [facility] Comment on above: Performed By: #### H EMDF, RENL3, TPUR, CRTUR #### [facility] [address] [place] [address] #### PTH3, VD25H #### [facility] [employer] [facility] [address] [place] [address] Hemogram w/ Autodiffon 03-08 Abs Baso Cnt 0.0 10*3/uL Normal 0.0-0.2 [facility] [employer] Comment on above: Performed By: #### H EMDF, RENL3, TPUR, CRTUR #### [facility] [address] [place] [address] #### PTH3, VD25H #### [facility] [address] [place] [address] Abs Neutrophile Cnt 5.5 10*3/uL Normal 1.8-7.0 [facility] Comment on above: Performed By: #### H EMDF, RENL3, TPUR, CRTUR #### [facility] [address] [place] [address] #### PTH3, VD25H #### [facility] [address] [place] [address] Basophils/100 WBC (Bld) 0.3 % Normal 0.0-2.0 [facility] Comment on above: Performed By: #### H EMDF, RENL3, TPUR, CRTUR #### [facility] [address] [place] [address] #### PTH3, VD25H #### [place] [address] [place] [address] Eosinophils (Bld) [#/Vol] 0.0 10*3/uL Normal 0.0-0.5 [facility] Comment on above: Performed By: #### H EMDF, RENL3, TPUR, CRTUR #### [facility] [address] [place] [address] #### PTH3, VD25H #### [place] [address] [place] [address] Eosinophils/100 WBC (Bld) 0.1 % Low 1.0-6.0 [facility] Comment on above: Performed By: #### H EMDF, RENL3, TPUR, CRTUR #### [facility] [address] [place] [address] #### PTH3, VD25H #### [facility] [address] [place] [address] Erythrocyte distribution width (RBC) [Ratio] 13.9 % Normal 11.5-14.5 [facility] Comment on above: Performed By: #### H EMDF, RENL3, TPUR, CRTUR #### [facility] [address] [place] [address] #### PTH3, VD25H #### [facility] [address] [place] [address] Granulocytes/100 WBC (Bld) 86.1 % High 40.0-80.0 [facility] Comment on above: Performed By: #### H EMDF, RENL3, TPUR, CRTUR #### [facility] [address] [place] [address] #### PTH3, VD25H #### [facility] [address] [place] [address] Hematocrit (Bld) [Volume fraction] 38.3 % Normal 35.0-47.0 [facility] Comment on above: Performed By: #### H EMDF, RENL3, TPUR, CRTUR #### [facility] [address] [place] [address] #### PTH3, VD25H #### [place] [address] [place] [address] Hemoglobin (Bld) [Mass/Vol] 12.8 g/dL Normal 11.7-16.0 [facility] Comment on above: Performed By: #### H EMDF, RENL3, TPUR, CRTUR #### [facility] [address] [place] [address] #### PTH3, VD25H #### [place] [address] [place] [address] Lymphocytes (Bld) [#/Vol] 0.7 10*3/uL Low 1.0-4.3 [facility] Comment on above: Performed By: #### H EMDF, RENL3, TPUR, CRTUR #### [facility] [address] [place] [address] #### PTH3, VD25H #### [facility] [address] [place] [address] Lymphocytes/100 WBC (Bld) 10.6 % Low 20.0-40.0 [facility] Comment on above: Performed By: #### H EMDF, RENL3, TPUR, CRTUR #### [facility] [address] [place] [address] #### PTH3, VD25H #### [facility] [address] [place] [address] MCH (RBC) [Entitic mass] 32.1 pg Normal 26.0-34.0 [facility] Comment on above: Performed By: #### H EMDF, RENL3, TPUR, CRTUR #### [facility] [address] [place] [address] #### PTH3, VD25H #### [facility] [address] [place] [address] MCHC 33.6 % Normal 32.0-36.0 [facility] Comment on above: Performed By: #### H EMDF, RENL3, TPUR, CRTUR #### [facility] [address] [place] [address] #### PTH3, VD25H #### [facility] [address] [place] [address] MCV (RBC) [Entitic vol] 95.6 fL Normal 79.0-98.0 [facility] Comment on above: Performed By: #### H EMDF, RENL3, TPUR, CRTUR #### [facility] [address] [place] [place] [address] #### PTH3, VD25H #### [facility] [address] [place] [address] Monocytes (Bld) [#/Vol] 0.2 10*3/uL Normal 0.0-0.8 [facility] Comment on above: Performed By: #### H EMDF, RENL3, TPUR, CRTUR #### [facility] [address] [place] [address] #### PTH3, VD25H #### [facility] [address] [place] [address] Monocytes/100 WBC (Bld) 2.9 % Normal 2.0-10.0 [facility] Comment on above: Performed By: #### H EMDF, RENL3, TPUR, CRTUR #### [facility] [address] [place] [address] #### PTH3, VD25H #### [facility] [address] [place] [address] Platelet mean volume (Bld) [Entitic vol] 7.5 fL Normal 7.4-10.4 [facility] Comment on above: Performed By: #### H EMDF, RENL3, TPUR, CRTUR #### [facility] [address] [place] [address] #### PTH3, VD25H #### [facility] [address] [place] [address] Platelets (Bld) [#/Vol] 274 10*3/uL Normal 140-440 [facility] Comment on above: Performed By: #### H EMDF, RENL3, TPUR, CRTUR #### [facility] [address] [place] [address] #### PTH3, VD25H #### [facility] [address] [place] [address] RBC (Bld) [#/Vol] 4.00 10*6/uL Normal 3.80-5.20 [facility] Comment on above: Performed By: #### H EMDF, RENL3, TPUR, CRTUR #### [facility] [address] [place] [address] #### PTH3, VD25H #### [place] [address] [place] [address] WBC (Bld) [#/Vol] 6.4 10*3/uL Normal 3.6-10.7 [facility] Comment on above: Performed By: #### H EMDF, RENL3, TPUR, CRTUR #### [facility] [address] [place] [address] #### PTH3, VD25H #### [facility] [address] [place] [address] No Panel InformationOrdered By: Leidy Benz on 03-08-2021 Test Performed by [facility], [address] , [place], [place] [address] [facility] Work Phone: [facility] Work Phone: [phone] PTH, [place] 03-08-2021 PTH, Intact 162.2 pg/mL High 15.0-63.0 [facility] Comment on above: Performed By: #### H EMDF, RENL3, TPUR, CRTUR #### [facility] [address] [place] [address] #### PTH3, VD25H #### [facility] [address] [place] [address] PTH, IntactOrdered By: Venancio Fields on 03-08-2021 Interpretation and review of laboratory results Abnormal [facility] Work Phone: [phone] Pth Intact 162.2 pg/mL High 15.0 - 63.0 pg/mL [facility] Work Phone: [phone] Test Performed by [facility], [address] [place] [address] [facility] Work Phone: [phone] [facility] Work Phone: [phone] Protein, Ur Randomon 021 Protein, Ur Random 74 mg/dL High No Range [facility] Comment on above: Performed By: #### H EMDF, RENL3, TPUR, CRTUR #### [facility] [address] [place] [address] #### PTH3, VD25H #### [facility] [address] [place] [address] Protein, urine, randomOrdere d By: Leidy Benz on 03-08-2021 Interpretation and review of laboratory results Abnormal [facility] Work Phone: [phone] Protein (U) [Mass/Vol] 74 mg/dL High No Range [facility] Work Phone: [phone] Renal Functionon 03-08-2021 Calcium [Mass/Vol] 9.8 mg/dL Normal 8.4-10.4 [facility] Comment on above: Performed By: #### H EMDF, RENL3, TPUR, CRTUR #### [facility] [address] [place] [address] #### PTH3, VD25H #### [facility] [address] [place] [address] Phosphate [Mass/Vol] 3.9 mg/dL Normal 2.5-4.5 [facility] Comment on above: Performed By: #### H EMDF, RENL3, TPUR, CRTUR #### [facility] [address] [place] [address] #### PTH3, VD25H #### [facility] [address] [place] [address] Anion gap [Moles/Vol] 7 mmol/L Normal 3-13 [facility] Comment on above: Performed By: #### H EMDF, RENL3, TPUR, CRTUR #### [facility] [address] [place] [address] #### PTH3, VD25H #### [place] [address] [place] [address] CO2 [Moles/Vol] 27 mmol/L Normal 22-30 [facility] Comment on above: Performed By: #### H EMDF, RENL3, TPUR, CRTUR #### [facility] [address] [place] [address] #### PTH3, VD25H #### [place] [address] [place] [address] Creatinine [Mass/Vol] 1.71 mg/dL High 0.52-1.25 [facility] Comment on above: Performed By: #### H EMDF, RENL3, TPUR, CRTUR #### [facility] [address] [place] [address] #### PTH3, VD25H #### [place] [address] [place] [address] GFR/1.73 sq M.predicted among blacks MDRD (S/P/Bld) [Vol rate/Area] 32.2 mL/min/{1.73_m2} Abnormal >60 [facility] Comment on above: Performed By: #### H EMDF, RENL3, TPUR, CRTUR #### [facility] [address] [place] [address] #### PTH3, VD25H #### [facility] [address] [place] [address] GFR/1.73 sq M.predicted among non-blacks MDRD (S/P/Bld) [Vol rate/Area] 27.8 mL/min/{1.73_m2} Abnormal >60 [facility] Comment on above: Result Comment: KDIG O guidelines provide the following GFR categories: Stage GFR(ml/min/1.73 m2) Terms G1 >=90 Normal or high G2 60-89 Mildly decreased* G3a 45-59 Mildly to moderately decreased G3b 30-44 Moderately to severely decreased G4 15-29 Severely decreased G5 <15 Kidney failure *Relative to young adult level. In the absence of evidence of kidney damage, neither GFR category G1 nor G2 fulfill the criteria for CKD. The CKD-EPI equation is validated in individuals 18 years of age and older. Currently the best equation for estimating glomerular filtration rate (GFR) from serum creatinine in children is the Bedside Zapata equation. It is less accurate in patients with extremes of muscle mass, restriction of dietary protein, ingestion of creatine, extra-renal metabolism of creatinine, or treatment with medications that affect renal tubular creatinine secretion. Performed By: #### H EMDF, RENL3, TPUR, CRTUR #### [facility] [address] [place] [address] #### PTH3, VD25H #### [facility] [address] [facility] [place] [address] Glucose [Mass/Vol] 287 mg/dL High 70-100 [facility] Comment on above: Performed By: #### H EMDF, RENL3, TPUR, CRTUR #### [facility] [address] [place] [address] #### PTH3, VD25H #### [facility] [address] [facility] [place] [address] Urea nitrogen [Mass/Vol] 41 mg/dL High 7-20 [facility] Comment on above: Performed By: #### H EMDF, RENL3, TPUR, CRTUR #### [facility] [address] [place] [address] #### PTH3, VD25H #### [facility] [address] [place] [address] Albumin [Mass/Vol] 4.1 g/dL Normal 3.5-5.0 [facility] Comment on above: Performed By: #### H EMDF, RENL3, TPUR, CRTUR #### [facility] [address] [place] [address] #### PTH3, VD25H #### [facility] [address] [place] [address] Chloride [Moles/Vol] 103 mmol/L Normal 98-107 [facility] Comment on above: Performed By: #### H EMDF, RENL3, TPUR, CRTUR #### [facility] [address] [place] [address] #### PTH3, VD25H #### [place] [address] [place] [address] Potassium [Moles/Vol] 4.4 mmol/L Normal 3.5-5.1 [facility] Comment on above: Performed By: #### H EMDF, RENL3, TPUR, CRTUR #### [facility] [address] [place] [address] #### PTH3, VD25H #### [facility] [address] [place] [address] Sodium [Moles/Vol] 137 mmol/L Normal 135-145 [facility] Comment on above: Performed By: #### H EMDF, RENL3, TPUR, CRTUR #### [facility] [address] [place] [address] #### PTH3, VD25H #### [facility] [address] [place] [address] Renal Function PanelOrdered By: Leidy Benz on 03-08-2021 Albumin [Mass/Vol] 4.1 g/dL 3.5 - 5.0 g/dL [facility] Work Phone: Anion gap [Moles/Vol] 7 mmol/L 3 - 13 mmol/L [facility] Work Phone: Calcium [Mass/Vol] 9.8 mg/dL 8.4 - 10. 4 mg/dL [facility] Work Phone: [phone] Chloride [Moles/Vol] 103 mmol/L 98 - 10 7 mmol/L [facility] Work Phone: [phone] CO2 [Moles/Vol] 27 mmol/L 22 - 30 mmol/L [facility] Work Phone: [phone] Creatinine [Mass/Vol] 1.71 mg/dL High 0.52 - 1.25 mg/dL [facility] Work Phone: [phone] EGFR IF NonAfrican [place] 27.8 mL/min Abnormal >60 [facility] Work Phone: [phone] Comment on above: KDIGO guidelines pro vide the following GFR categories: Stage GFR(ml/min/1.73 m2) Terms G1 >=90 Normal or high G2 60-89 Mildly decreased* G3a 45-59 Mildly to moderately decreased G3b 30-44 Moderately to severely decreased G4 15-29 Severely decreased G5 <15 Kidney failure *Relative to young adult level. In the absence of evidence of kidney damage, neither GFR category G1 nor G2 fulfill the criteria for CKD. The CKD-EPI equation is validated in individuals 18 years of age and older. Currently the best equation for estimating glomerular filtration rate (GFR) from serum creatinine in children is the Bedside Zapata equation. It is less accurate in patients with extremes of muscle mass, restriction of dietary protein, ingestion of creatine, extra-renal metabolism of creatinine, or treatment with medications that affect renal tubular creatinine secretion. GFR/1.73 sq M.predicted among blacks MDRD (S/P/Bld) [Vol rate/Area] 32.2 mL/min/{1.73_m2} Abnormal >60 [facility] Work Phone: [phone] Glucose [Mass/Vol] 287 mg/dL High 70 - 100 mg/dL [facility] Work Phone: [phone] Interpretation and review of laboratory results Abnormal [facility] Work Phone: [phone] Phosphate [Mass/Vol] 3.9 mg/dL 2.5 - 4 .5 mg/dL [facility] Work Phone: [phone] Potassium [Moles/Vol] 4.4 mmol/L 3.5 - 5.1 mmol/L [facility] Work Phone: [phone] Sodium [Moles/Vol] 137 mmol/L 135 - 145 mmol/L [facility] Work Phone: [phone] Urea nitrogen (BldV) [Mass/Vol] 41 mg/dL High 7 - 20 mg/dL [facility] Work Phone: [phone] Test Performed by [facility], [address] , [place], [place] [address] [facility] Work Phone: 1) [facility] Work Phone: 1) Vit D 25-OH, Totalon 021 Vit D 25-OH, Total 55 ng/mL Normal 30-100 [facility] Comment on above: Result Comment: Ther apy is based on measurement of Total 25- OHD with the following classification levels: Less than 20 ng/mL: Indicative of Vit D deficiency 20-30 ng/mL: Suggests Vit D insufficiency Optimal: Greater than or equal to 30 ng/mL Test performed by ShareTracker Competitive Immunoassay, measuring Total Vitamin D, not individual fractions. Performed By: #### H EMDF, RENL3, TPUR, CRTUR #### [facility] [address] [place] [address] #### PTH3, VD25H #### [facility] [address] [place] [address] Vitamin D 25 HydroxyOrdered By: Leidy Benz on 03-08-2021 Vit D, 25-Hydroxy 55 ng/mL 30 - 100 ng/mL [facility] Work Phone: Comment on above: Therapy is based on measurement of Total 25-OHD with the following classification levels: Less than 20 ng/mL: Indicative of Vit D deficiency 20-30 ng/mL: Suggests Vit D insufficiency Optimal: Greater than or equal to 30 ng/mL Test performed by ShareTracker Competitive Immunoassay, measuring Total Vitamin D, not individual fractions. Test Performed by [facility], [address], [place], [place] [address] [facility] Work Phone: [phone] [facility] Work Phone: [phone] [facility] RAFA DIGITAL SCREEN BILA TERALon 12-08-2020 Patient Name: LYNETTE GIBBS Mammography ACCESSION EXAM DATE/TIME PROCEDURE ORDERING PROVIDER [id number] 12/08/2020 11:33 EST MG Breast Tomosynthesis NORIS YOUNGBLOOD BI Scr CPT code 28664 [id number] Reason For Exam (MG Breast Tomosynthesis BI Scr) screening Report TIME SINCE LAST MAMMOGRAM: Last mammogram was performed 1 year ago. REASON FOR EXAM: screening, asymptomatic. PROCEDURE: MG BREAST TOMOSYNTHESIS BL SCR: DECEMBER 08, 2020 - 2D/3D Procedure 3D Bilateral CC and MLO view(s) were taken. 2D Bilateral CC and MLO view(s) were taken. Prior study comparison: December 06, 2019, bilateral MG breast tomosynthesis bl scr performed at [facility]. December 04, 2018, bilateral MG breast tomosynthesis bl scr performed at [facility]. October 22, 2017, bilateral MG breast tomosynthesis bl scr performed at [facility]. TISSUE DENSITY: BIRADS B - There are scattered fibroglandular densities. . FINDINGS: There are post surgical changes in the left breast. No suspicious masses, new architectural distortions or suspiciously clustered microcalcifications are identified. The battery pack of an ICD is again seen on the left. There are no significant changes when compared with prior studies. IMPRESSION: No mammographic evidence of malignancy. Markings on images: BB's = Nipples; skin lesions Open tolowa dee-ni' = Palpable Line = Scar 2D digital mammography and tomosynthesis imaging were performed and reviewed with CAD. ASSESSMENT: Category 2 Benign RECOMMENDATION: Routine screening mammogram of both breasts in 1 year. . Report Dictated on Mammography Report Cancer Risk Assessment: This risk assessment is based on patient provided information collected in a risk survey taken at the time of this examination. Lifetime breast cancer risk: 3.28% - If greater than or equal to 20%, consider annual mammogram and annual screening Breast MRI or follow up in high risk clinic. Is the patient at elevated risk based on the HBOC criteria? No (Hereditary Breast and Ovarian Cancer) - If yes, consider genetic counseling and testing with high risk follow up. HNPCC mutation risk (Cloud Syndrome): 2.5% - if greater than or equal to 5%, consider genetic counseling, testing and screening colonoscopy. --- Final --- Signed Date and Time: 12/08/2020 3:42 pm Signed by: MD MIRIAM, JUDY PEMBERTON Work Phone: Kyler Valeri[facility] Incoming Radiology Results From [employer] - 12/08/2020 3:49 PM EST Patient Name: LYNETTE ANGULO Mammography ACCESSION EXAM DATE/TIME PROCEDURE ORDERING PROVIDER [id number] 12/08/2020 11:33 EST MG Breast Tomosynthesis NORIS YOUNGBLOOD Diandra BI Scr CPT code 53622 [id number] Reason For Exam (MG Breast Tomosynthesis BI Scr) screening Report TIME SINCE LAST MAMMOGRAM: Last mammogram was performed 1 year ago. REASON FOR EXAM: screening, asymptomatic. PROCEDURE: MG BREAST TOMOSYNTHESIS BL SCR: DECEMBER 08, 2020 - 2D/3D Procedure 3D Bilateral CC and MLO view(s) were taken. 2D Bilateral CC and MLO view(s) were taken. Prior study comparison: December 06, 2019, bilateral MG breast tomosynthesis bl scr performed at [facility]. December 04, 2018, bilateral MG breast tomosynthesis bl scr performed at [facility]. October 22, 2017, bilateral MG breast tomosynthesis bl scr performed at [facility]. TISSUE DENSITY: BIRADS B - There are scattered fibroglandular densities. . FINDINGS: There are post surgical changes in the left breast. No suspicious masses, new architectural distortions or suspiciously clustered microcalcifications are identified. The battery pack of an ICD is again seen on the left. There are no significant changes when compared with prior studies. IMPRESSION: No mammographic evidence of malignancy. Markings on images: BB's = Nipples; skin lesions Open tolowa dee-ni' = Palpable Line = Scar 2D digital mammography and tomosynthesis imaging were performed and reviewed with CAD. ASSESSMENT: Category 2 Benign RECOMMENDATION: Routine screening mammogram of both breasts in 1 year. . Report Dictated on Mammography Report Cancer Risk Assessment: This risk assessment is based on patient provided information collected in a risk survey taken at the time of this examination. Lifetime breast cancer risk: 3.28% - If greater than or equal to 20%, consider annual mammogram and annual screening Breast MRI or follow up in high risk clinic. Is the patient at elevated risk based on the HBOC criteria? No (Hereditary Breast and Ovarian Cancer) - If yes, consider genetic counseling and testing with high risk follow up. HNPCC mutation risk (Cloud Syndrome): 2.5% - if greater than or equal to 5%, consider genetic counseling, testing and screening colonoscopy. --- Final --- Signed Date and Time: 12/08/2020 3:42 pm Signed by: MD MIRIAM, JUDY PEMBERTON Work Phone: CBC Auto Differentialon 02-0 Absolute Baso # 0.0 10*3/uL 0 - 0.2 10*3/uL [place] Absolute Neut # 7.8 10*3/uL High 1.8 - 7 10*3/uL [place] Basophils/100 WBC (Bld) 0.3 % 0 - 2 % [place] Eosinophils (Bld) [#/Vol] 0.0 10*3/uL 0 - 0.5 10*3/uL [place] Eosinophils/100 WBC (Bld) 0.3 % Low 1 - 6 % [place] Erythrocyte distribution width (RBC) [Ratio] 15.7 % High 11.5 - 14.5 % [place] Granulocytes/100 WBC (Bld) 88.8 % High 40 - 80 % [place] Hematocrit (Bld) [Volume fraction] 36.5 % 35 - 47 % [place] Hemoglobin (Bld) [Mass/Vol] 12.2 g/dL 11.7 - 16 g/dL [place] Lymphocytes (Bld) [#/Vol] 0.7 10*3/uL Low 1 - 4.3 10*3/uL [place] Lymphocytes/100 WBC (Bld) 8.3 % Low 20 - 40 % [facility], [place] MCH (RBC) [Entitic mass] 32.3 pg 26 - 34 pg [facility], [place] MCHC (RBC) [Mass/Vol] 33.4 % 32 - 36 % [facility], [place] MCV (RBC) [Entitic vol] 96.9 fL 79 - 98 fL [facility], [place] Monocytes (Bld) [#/Vol] 0.2 10*3/uL 0 - 0.8 10*3/uL [facility], [place] Monocytes/100 WBC (Bld) 2.3 % 2 - 10 % [facility], [place] Platelet mean volume (Bld) [Entitic vol] 7.3 fL Low 7.4 - 10.4 fL [place] Platelets (Bld) [#/Vol] 251 10*3/uL 140 - 440 10*3/uL [facility], [place] RBC (Bld) [#/Vol] 3.77 10*6/uL Low 3.8 - 5.2 10*6/uL [facility] [place] WBC (Bld) [#/Vol] 8.8 10*3/uL 3.6 - 10.7 10*3/uL [place] Test Performed by [facility], [address] , [address] Creatinine, Random Urineon 0 11-01-2020 Creatinine (U) [Mass/Vol] 21.0 mg/dL No Range [facility], [place] Otheron 11-01-2020 Interpretation and review of laboratory results Abnormal [place] Test Performed by [facility], [address], [place], [place] [address] [place] Test Performed by [facility], [address] , [place], [place] [address] [place] [address] PTH, Intacton 11-01-2020 Pth Intact 97.6 pg/mL High 15 - 63 pg/mL [place] Protein, urine, randomon Protein (U) [Mass/Vol] 30 mg/dL High No Range [place] Renal Function Panelon 11-01 Albumin [Mass/Vol] 3.9 g/dL 3.5 - 5 g/dL [place] Anion gap [Moles/Vol] 3 mmol/L [place] Calcium [Mass/Vol] 10.0 mg/dL 8.4 - 10. 4 mg/dL [place] Chloride [Moles/Vol] 101 mmol/L 98 - 10 7 mmol/L [place] CO2 [Moles/Vol] 28 mmol/L 22 - 30 mmol/L [place] Creatinine [Mass/Vol] 1.44 mg/dL High 0.52 - 1.25 mg/dL [place] EGFR IF NonAfrican [place] 34.3 mL/min Abnormal >60 [place] Comment on above: KDIGO guidelines pro vide the following GFR categories: Stage GFR(ml/min/1.73 m2) Terms G1 >=90 Normal or high G2 60-89 Mildly decreased* G3a 45-59 Mildly to moderately decreased G3b 30-44 Moderately to severely decreased G4 15-29 Severely decreased G5 <15 Kidney failure *Relative to young adult level. In the absence of evidence of kidney damage, neither GFR category G1 nor G2 fulfill the criteria for CKD. The CKD-EPI equation is validated in individuals 18 years of age and older. Currently the best equation for estimating glomerular filtration rate (GFR) from serum creatinine in children is the Bedside Zapata equation. It is less accurate in patients with extremes of muscle mass, restriction of dietary protein, ingestion of creatine, extra-renal metabolism of creatinine, or treatment with medications that affect renal tubular creatinine secretion. GFR/1.73 sq M predicted among blacks MDRD (S/P/Bld) [Vol rate/Area] 39.7 mL/min/{1.73_m2} Abnormal >60 [place] Glucose [Mass/Vol] 307 mg/dL High 70 - 100 mg/dL [place] Phosphate [Mass/Vol] 3.0 mg/dL 2.5 - 4 .5 mg/dL [place] Potassium [Moles/Vol] 4.5 mmol/L 3.5 - 5.1 mmol/L [place] Sodium [Moles/Vol] 132 mmol/L Low 135 - 145 mmol/L [place] Urea nitrogen [Mass/Vol] 37 mg/dL High 7 - 20 mg/dL [place] Test Performed by [facility], [address] , [place], [place] [address] [place] Vitamin D 25 Hydroxyon 11-01 Vit D, 25-Hydroxy 29 ng/mL Low 30 - 100 ng/mL [place] Comment on above: Therapy is based on measurement of Total 25-OHD with the following classification levels: Less than 20 ng/mL: Indicative of Vit D deficiency 20-30 ng/mL: Suggests Vit D insufficiency Optimal: Greater than or equal to 30 ng/mL Test performed by [employer] Competitive Immunoassay, measuring Total Vitamin D, not individual fractions. Renal Function Panelon 08-17 Albumin [Mass/Vol] 4.4 g/dL 3.5 - 5 g/dL [place] Anion gap [Moles/Vol] 7 mmol/L [place] Calcium [Mass/Vol] 10.3 mg/dL 8.4 - 10. 4 mg/dL [place] Chloride [Moles/Vol] 103 mmol/L 98 - 10 7 mmol/L [place] CO2 [Moles/Vol] 28 mmol/L 22 - 30 mmol/L [place] Creatinine [Mass/Vol] 1.74 mg/dL High 0.52 - 1.25 mg/dL [place] EGFR IF NonAfrican [place] 27.3 mL/min Abnormal >60 [place] Comment on above: KDIGO guidelines pro vide the following GFR categories: Stage GFR(ml/min/1.73 m2) Terms G1 >=90 Normal or high G2 60-89 Mildly decreased* G3a 45-59 Mildly to moderately decreased G3b 30-44 Moderately to severely decreased G4 15-29 Severely decreased G5 <15 Kidney failure *Relative to young adult level. In the absence of evidence of kidney damage, neither GFR category G1 nor G2 fulfill the criteria for CKD. The CKD-EPI equation is validated in individuals 18 years of age and older. Currently the best equation for estimating glomerular filtration rate (GFR) from serum creatinine in children is the Bedside Zapata equation. It is less accurate in patients with extremes of muscle mass, restriction of dietary protein, ingestion of creatine, extra-renal metabolism of creatinine, or treatment with medications that affect renal tubular creatinine secretion. GFR/1.73 sq M predicted among blacks MDRD (S/P/Bld) [Vol rate/Area] 31.6 mL/min/{1.73_m2} Abnormal >60 [place] Glucose [Mass/Vol] 152 mg/dL High 70 - 100 mg/dL [place] Interpretation and review of laboratory results Abnormal [place] Phosphate [Mass/Vol] 3.4 mg/dL 2.5 - 4 .5 mg/dL [place] Potassium [Moles/Vol] 3.7 mmol/L 3.5 - 5.1 mmol/L [place] Sodium [Moles/Vol] 138 mmol/L 135 - 145 mmol/L [place] Urea nitrogen [Mass/Vol] 49 mg/dL High 7 - 20 mg/dL [place] Test Performed by [facility], [address] [place] [address] Eric. , [address] CBC Auto Differentialon 06-30 Absolute Baso # 0.0 10*3/uL 0 - 0.2 10*3/uL [place] Absolute Neut # 2.9 10*3/uL 1.8 - 7 10*3/uL [place] Basophils/100 WBC (Bld) 0.3 % 0 - 2 % [place] Eosinophils (Bld) [#/Vol] 0.1 10*3/uL 0 - 0.5 10*3/uL [place] Eosinophils/100 WBC (Bld) 1.2 % 1 - 6 % [place] Erythrocyte distribution width (RBC) [Ratio] 14.5 % 11.5 - 14.5 % [place] Granulocytes/100 WBC (Bld) 59.7 % 40 - 80 % [place] Hematocrit (Bld) [Volume fraction] 38.8 % 35 - 47 % [place] Hemoglobin (Bld) [Mass/Vol] 13.0 g/dL 11.7 - 16 g/dL [facility], [place] Lymphocytes (Bld) [#/Vol] 1.5 10*3/uL 1 - 4.3 10*3/uL [facility]- [place], [place] Lymphocytes/100 WBC (Bld) 29.7 % 20 - 40 % [facility] [place], [place] MCH (RBC) [Entitic mass] 32.4 pg 26 - 34 pg [facility], [place] MCHC (RBC) [Mass/Vol] 33.4 % 32 - 36 % [facility]- [place], [place] MCV (RBC) [Entitic vol] 96.9 fL 79 - 98 fL [facility] [place] Monocytes (Bld) [#/Vol] 0.4 10*3/uL 0 - 0.8 10*3/uL [facility], [place] Monocytes/100 WBC (Bld) 9.1 % 2 - 10 % [facility], [place] Platelet mean volume (Bld) [Entitic vol] 8.5 fL 7.4 - 10.4 fL [facility] [place] Platelets (Bld) [#/Vol] 260 10*3/uL 140 - 440 10*3/uL [facility], [place] RBC (Bld) [#/Vol] 4.00 10*6/uL 3.8 - 5.2 10*6/uL [facility], [place] WBC (Bld) [#/Vol] 4.9 10*3/uL 3.6 - 10.7 10*3/uL [facility] [place] Test Performed by [facility], [address] , [address] Creatinine, Random Urineon 1 Creatinine (U) [Mass/Vol] 111.2 mg/dL No Range [facility] [place] Otheron 07-27-2020 Test Performed by [facility], [address] , [address] PTH, Intacton 07-27-2020 Interpretation and review of laboratory results Abnormal [place] Pth Intact 158.7 pg/mL High 15 - 63 pg/mL [place] Test Performed by [facility], [address], [place], [place] [address] [place] Protein, urine, randomon Interpretation and review of laboratory results Abnormal [place] Protein (U) [Mass/Vol] 17 mg/dL High No Range [place] Renal Function Panelon 07-27 Albumin [Mass/Vol] 4.6 g/dL 3.5 - 5 g/dL [place] Anion gap [Moles/Vol] 8 mmol/L [place], [place] Calcium [Mass/Vol] 10.4 mg/dL 8.4 - 10. 4 mg/dL [place] Chloride [Moles/Vol] 103 mmol/L 98 - 10 7 mmol/L [place] CO2 [Moles/Vol] 30 mmol/L 22 - 30 mmol/L [place] Creatinine [Mass/Vol] 1.74 mg/dL High 0.52 - 1.25 mg/dL [place] EGFR IF NonAfrican [place] 27.3 mL/min Abnormal >60 [place] Comment on above: KDIGO guidelines pro vide the following GFR categories: Stage GFR(ml/min/1.73 m2) Terms G1 >=90 Normal or high G2 60-89 Mildly decreased* G3a 45-59 Mildly to moderately decreased G3b 30-44 Moderately to severely decreased G4 15-29 Severely decreased G5 <15 Kidney failure *Relative to young adult level. In the absence of evidence of kidney damage, neither GFR category G1 nor G2 fulfill the criteria for CKD. The CKD-EPI equation is validated in individuals 18 years of age and older. Currently the best equation for estimating glomerular filtration rate (GFR) from serum creatinine in children is the Bedside Zapata equation. It is less accurate in patients with extremes of muscle mass, restriction of dietary protein, ingestion of creatine, extra-renal metabolism of creatinine, or treatment with medications that affect renal tubular creatinine secretion. GFR/1.73 sq M predicted among blacks MDRD (S/P/Bld) [Vol rate/Area] 31.6 mL/min/{1.73_m2} Abnormal >60 [place] Glucose [Mass/Vol] 106 mg/dL High 70 - 100 mg/dL [place] Interpretation and review of laboratory results Abnormal [facility], [place] Phosphate [Mass/Vol] 3.3 mg/dL 2.5 - 4 .5 mg/dL [facility], [place] Potassium [Moles/Vol] 4.0 mmol/L 3.5 - 5.1 mmol/L [facility], [place] Sodium [Moles/Vol] 141 mmol/L 135 - 145 mmol/L [facility], [place] Urea nitrogen [Mass/Vol] 41 mg/dL High 7 - 20 mg/dL [place] Test Performed by [facility], [address] , [place], [place] [address] [place] Vitamin D 25 Hydroxyon 07-27 Vit D, 25-Hydroxy 60 ng/mL 30 - 100 ng/mL [place] Comment on above: Therapy is based on measurement of Total 25-OHD with the following classification levels: Less than 20 ng/mL: Indicative of Vit D deficiency 20-30 ng/mL: Suggests Vit D insufficiency Optimal: Greater than or equal to 30 ng/mL Test performed by [employer] Competitive Immunoassay, measuring Total Vitamin D, not individual fractions. Test Performed by [facility], [address], [place], [place] [address] [place] Renal Function Panelon 06-03 Albumin [Mass/Vol] 4.5 g/dL 3.5 - 5 g/dL [facility], [place] Anion gap [Moles/Vol] 11 mmol/L [place] Calcium [Mass/Vol] 10.4 mg/dL 8.4 - 10. 4 mg/dL [facility], [place] Chloride [Moles/Vol] 103 mmol/L 98 - 10 7 mmol/L [facility], [place] CO2 [Moles/Vol] 27 mmol/L 22 - 30 mmol/L [facility], [place] Creatinine [Mass/Vol] 1.41 mg/dL High 0.52 - 1.25 mg/dL [facility], [place] EGFR IF NonAfrican [place] 35.2 mL/min Abnormal >60 [place] Comment on above: KDIGO guidelines pro vide the following GFR categories: Stage GFR(ml/min/1.73 m2) Terms G1 >=90 Normal or high G2 60-89 Mildly decreased* G3a 45-59 Mildly to moderately decreased G3b 30-44 Moderately to severely decreased G4 15-29 Severely decreased G5 <15 Kidney failure *Relative to young adult level. In the absence of evidence of kidney damage, neither GFR category G1 nor G2 fulfill the criteria for CKD. The CKD-EPI equation is validated in individuals 18 years of age and older. Currently the best equation for estimating glomerular filtration rate (GFR) from serum creatinine in children is the Bedside Zapata equation. It is less accurate in patients with extremes of muscle mass, restriction of dietary protein, ingestion of creatine, extra-renal metabolism of creatinine, or treatment with medications that affect renal tubular creatinine secretion. GFR/1.73 sq M predicted among blacks MDRD (S/P/Bld) [Vol rate/Area] 40.8 mL/min/{1.73_m2} Abnormal >60 [place] Glucose [Mass/Vol] 100 mg/dL 70 - 100 mg/dL [place] Interpretation and review of laboratory results Abnormal [place] Phosphate [Mass/Vol] 3.6 mg/dL 2.5 - 4 .5 mg/dL [place] Potassium [Moles/Vol] 4.0 mmol/L 3.5 - 5.1 mmol/L [place] Sodium [Moles/Vol] 141 mmol/L 135 - 145 mmol/L [place] Urea nitrogen [Mass/Vol] 41 mg/dL High 7 - 20 mg/dL [place] Test Performed by [facility], [facility] [address] , [place], [place] [id number] [place] [address] CBC Auto Differentialon 07-3 0-2019 Absolute Baso # 0.0 10*3/uL 0 - 0.2 10*3/uL [place] Absolute Neut # 3.5 10*3/uL 1.8 - 7 10*3/uL [place] Basophils/100 WBC (Bld) 0.8 % 0 - 2 % [place] Eosinophils (Bld) [#/Vol] 0.1 10*3/uL 0 - 0.5 10*3/uL [place] Eosinophils/100 WBC (Bld) 2.2 % 1 - 6 % [place] Erythrocyte distribution width (RBC) [Ratio] 13.7 % 11.5 - 14.5 % [place] Granulocytes/100 WBC (Bld) 65.3 % 40 - 80 % [place] Hematocrit (Bld) [Volume fraction] 35.6 % 35 - 47 % [place] Hemoglobin (Bld) [Mass/Vol] 12.0 g/dL 11.7 - 16 g/dL [place] Interpretation and review of laboratory results Abnormal [place] Lymphocytes (Bld) [#/Vol] 1.3 10*3/uL 1 - 4.3 10*3/uL [place] Lymphocytes/100 WBC (Bld) 25.0 % 20 - 40 % [place] MCH (RBC) [Entitic mass] 32.5 pg 26 - 34 pg [place] MCHC (RBC) [Mass/Vol] 33.7 % 32 - 36 % [place] MCV (RBC) [Entitic vol] 96.3 fL 79 - 98 fL [place] Monocytes (Bld) [#/Vol] 0.4 10*3/uL 0 - 0.8 10*3/uL [place] Monocytes/100 WBC (Bld) 6.7 % 2 - 10 % [place] Platelet mean volume (Bld) [Entitic vol] 7.9 fL 7.4 - 10.4 fL [place] Platelets (Bld) [#/Vol] 231 10*3/uL 140 - 440 10*3/uL [place] RBC (Bld) [#/Vol] 3.70 10*6/uL Low 3.8 - 5.2 10*6/uL [place] WBC (Bld) [#/Vol] 5.3 10*3/uL 3.6 - 10.7 10*3/uL [place] Test Performed by [facility], [facility] [address] , [address] Creatinine, Random Urineon 0 04-27-2020 Creatinine (U) [Mass/Vol] 45.4 mg/dL No Range [place] Otheron 04-27-2020 Test Performed by [facility], [address] , [place], [place] [address] [place] Protein, urine, randomon Interpretation and review of laboratory results Abnormal [place] Protein (U) [Mass/Vol] 15 mg/dL High No Range [place] Renal Function Panelon 04-27 Albumin [Mass/Vol] 4.0 g/dL 3.5 - 5 g/dL [place] Anion gap [Moles/Vol] 9 mmol/L [place] Calcium [Mass/Vol] 9.6 mg/dL 8.4 - 10. 4 mg/dL [place] Chloride [Moles/Vol] 104 mmol/L 98 - 10 7 mmol/L [place] CO2 [Moles/Vol] 28 mmol/L 22 - 30 mmol/L [place] Creatinine [Mass/Vol] 1.35 mg/dL High 0.52 - 1.25 mg/dL [place] EGFR IF NonAfrican [place] 37.2 mL/min Abnormal >60 [place] Comment on above: KDIGO guidelines pro vide the following GFR categories: Stage GFR(ml/min/1.73 m2) Terms G1 >=90 Normal or high G2 60-89 Mildly decreased* G3a 45-59 Mildly to moderately decreased G3b 30-44 Moderately to severely decreased G4 15-29 Severely decreased G5 <15 Kidney failure *Relative to young adult level. In the absence of evidence of kidney damage, neither GFR category G1 nor G2 fulfill the criteria for CKD. The CKD-EPI equation is validated in individuals 18 years of age and older. Currently the best equation for estimating glomerular filtration rate (GFR) from serum creatinine in children is the Bedside Zapata equation. It is less accurate in patients with extremes of muscle mass, restriction of dietary protein, ingestion of creatine, extra-renal metabolism of creatinine, or treatment with medications that affect renal tubular creatinine secretion. GFR/1.73 sq M predicted among blacks MDRD (S/P/Bld) [Vol rate/Area] 43.1 mL/min/{1.73_m2} Abnormal >60 [place] Glucose [Mass/Vol] 157 mg/dL High 70 - 100 mg/dL [place] Interpretation and review of laboratory results Abnormal [place] Phosphate [Mass/Vol] 3.5 mg/dL 2.5 - 4 .5 mg/dL [place] Potassium [Moles/Vol] 3.9 mmol/L 3.5 - 5.1 mmol/L [place] Sodium [Moles/Vol] 141 mmol/L 135 - 145 mmol/L [place] Urea nitrogen [Mass/Vol] 35 mg/dL High 7 - 20 mg/dL [place] Test Performed by [facility], [address] [place] [address] , [address] XR KNEE LEFT (1-2 VIEWS)on 0 04-14-2020 Patient Name: LYNETTE GIBBS ---Diagnostic Radiology--- Exam Date/Time 04/14/2020 11:56:28 EDT Exam CR Knee 1 or 2 Views Left Ordering Physician MD ALLIE, TRUNG Beltran Accession Number [id number] CPT4 Codes 10092 () Reason For Exam pain Report Bilateral knees: Left knee: 04/14/2020. CLINICAL INFORMATION: Status post arthroplasty. FINDINGS: Flexion and extension weightbearing views of both knees with additional lateral and sunrise views of the left knee were compared to a prior study 09/17/2019. On the right, the medial and lateral compartments are maintained. 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 The position and alignment of the prosthetic components is reasonable. No lucency is identified around the components to indicate loosening. There is no evidence of fracture or dislocation. There is a small joint effusion. Report Dictated on Workstation: [id number] --- Final --- Dictating Physician: MD MCADAMS RISA Signed Date and Time: 04/14/2020 12:11 pm Signed by: MD MCADAMS RISA Transcribed Date and Time: 04/14/2020 12:12 [place], [place], [place] Incoming Radiology Results From [facility] - 04/14/2020 12:12 PM EDT Patient Name: LYNETTE ANGULO ---Diagnostic Radiology--- Exam Date/Time 04/14/2020 11:56:28 EDT Exam CR Knee 1 or 2 Views Left Ordering Physician MD NG DONALD L. Accession Number [id number] CPT4 Codes 49951 () Reason For Exam pain Report Bilateral knees: Left knee: 04/14/2020. CLINICAL INFORMATION: Status post arthroplasty. FINDINGS: Flexion and extension weightbearing views of both knees with additional lateral and sunrise views of the left knee were compared to a prior study 09/17/2019. On the right, the medial and lateral compartments are maintained. 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 The position and alignment of the prosthetic components is reasonable. No lucency is identified around the components to indicate loosening. There is no evidence of fracture or dislocation. There is a small joint effusion. Report Dictated on Workstation: [id number] --- Final --- Dictating Physician: MD MCADAMS RISA Signed Date and Time: 04/14/2020 12:11 pm Signed by: MD MCADAMS RISA Transcribed Date and Time: 04/14/2020 12:12 [place] XR Knee Bilateral Standingon 04-14-2020 Patient Name: LYNETTE GIBBS ---Diagnostic Radiology--- Exam Date/Time 04/14/2020 11:56:28 EDT Exam CR Knee Standing AP Bilateral Ordering Physician MD NG DONALD L. Accession Number [id number] CPT4 Codes 77233 () Reason For Exam pain Report Bilateral knees: Left knee: 04/14/2020. CLINICAL INFORMATION: Status post arthroplasty. FINDINGS: Flexion and extension weightbearing views of both knees with additional lateral and sunrise views of the left knee were compared to a prior study 09/17/2019. On the right, the medial and lateral compartments are maintained. 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 The position and alignment of the prosthetic components is reasonable. No lucency is identified around the components to indicate loosening. There is no evidence of fracture or dislocation. There is a small joint effusion. Report Dictated on Workstation: [id number] --- Final --- Dictating Physician: MD MCADAMS RISA Signed Date and Time: 04/14/2020 12:11 pm Signed by: MD MCADAMS RISA Transcribed Date and Time: 04/14/2020 12:12 [place], [place] Incoming Radiology Results From [facility] - 04/14/2020 12:12 PM EDT Patient Name: LYNETTE ANGULO ---Diagnostic Radiology--- Exam Date/Time 04/14/2020 11:56:28 EDT Exam CR Knee Standing AP Bilateral Ordering Physician MD ALLIE, TRUNG Beltran Accession Number [id number] CPT4 Codes 25319 () Reason For Exam pain Report Bilateral knees: Left knee: 04/14/2020. CLINICAL INFORMATION: Status post arthroplasty. FINDINGS: Flexion and extension weightbearing views of both knees with additional lateral and sunrise views of the left knee were compared to a prior study 09/17/2019. On the right, the medial and lateral compartments are maintained. 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 The position and alignment of the prosthetic components is reasonable. No lucency is identified around the components to indicate loosening. There is no evidence of fracture or dislocation. There is a small joint effusion. Report Dictated on Workstation: [id number] --- Final --- Dictating Physician: MD MCADAMS RISA Signed Date and Time: 04/14/2020 12:11 pm Signed by: MD MCADAMS RISA Transcribed Date and Time: 04/14/2020 12:12 [place], [place] Comprehensive Metabolic Pane jay 04-11-2020 Albumin [Mass/Vol] 4.1 g/dL 3.5 - 5 g/dL [place] ALP [Catalytic activity/Vol] 76 U/L 38 - 126 U/L [place] ALT [Catalytic activity/Vol] 19 U/L 0 - 34 U/L [place] Comment on above: The ALT test is perf ormed by an updated assay method. Please note that the reference intervals have been changed and are now sex specific. Anion gap [Moles/Vol] 9 mmol/L [place], [place] AST [Catalytic activity/Vol] 32 U/L 15 - 46 U/L [place] Bilirubin Ql (U) 0.8 mg/dL 0.2 - 1.3 mg/dL [place] Calcium [Mass/Vol] 9.8 mg/dL 8.4 - 10. 4 mg/dL [place] Chloride [Moles/Vol] 104 mmol/L 98 - 10 7 mmol/L [place] CO2 [Moles/Vol] 27 mmol/L 22 - 30 mmol/L [place] Creatinine [Mass/Vol] 1.5 mg/dL High 0.52 - 1.25 mg/dL [place] EGFR IF NonAfrican [place] 32.7 mL/min Abnormal >60 [place] Comment on above: KDIGO guidelines pro vide the following GFR categories: Stage GFR(ml/min/1.73 m2) Terms G1 >=90 Normal or high G2 60-89 Mildly decreased* G3a 45-59 Mildly to moderately decreased G3b 30-44 Moderately to severely decreased G4 15-29 Severely decreased G5 <15 Kidney failure *Relative to young adult level. In the absence of evidence of kidney damage, neither GFR category G1 nor G2 fulfill the criteria for CKD. The CKD-EPI equation is validated in individuals 18 years of age and older. Currently the best equation for estimating glomerular filtration rate (GFR) from serum creatinine in children is the Bedside Zapata equation. It is less accurate in patients with extremes of muscle mass, restriction of dietary protein, ingestion of creatine, extra-renal metabolism of creatinine, or treatment with medications that affect renal tubular creatinine secretion. GFR/1.73 sq M predicted among blacks MDRD (S/P/Bld) [Vol rate/Area] 37.9 mL/min/{1.73_m2} Abnormal >60 [place] Glucose [Mass/Vol] 125 mg/dL High 70 - 100 mg/dL [place] Interpretation and review of laboratory results Abnormal [place] Potassium [Moles/Vol] 4.0 mmol/L 3.5 - 5.1 mmol/L [place] Protein [Mass/Vol] 6.9 g/dL 6.3 - 8.2 g/dL [place] Sodium [Moles/Vol] 140 mmol/L 135 - 145 mmol/L [place] Urea nitrogen [Mass/Vol] 33 mg/dL High 7 - 20 mg/dL [place] Test Performed by [facility], [address] , [place], [place] [id number] [place] [address] Renal Function Panelon 03-07 Albumin [Mass/Vol] 4.3 g/dL 3.5 - 5 g/dL [place] Anion gap [Moles/Vol] 12 mmol/L [place], [place] Calcium [Mass/Vol] 9.8 mg/dL 8.4 - 10. 4 mg/dL [place] Chloride [Moles/Vol] 102 mmol/L 98 - 10 7 mmol/L [place] CO2 [Moles/Vol] 27 mmol/L 22 - 30 mmol/L [place] Creatinine [Mass/Vol] 1.57 mg/dL High 0.52 - 1.25 mg/dL [place] EGFR IF NonAfrican [place] 31.0 mL/min Abnormal >60 [place] Comment on above: KDIGO guidelines pro vide the following GFR categories: Stage GFR(ml/min/1.73 m2) Terms G1 >=90 Normal or high G2 60-89 Mildly decreased* G3a 45-59 Mildly to moderately decreased G3b 30-44 Moderately to severely decreased G4 15-29 Severely decreased G5 <15 Kidney failure *Relative to young adult level. In the absence of evidence of kidney damage, neither GFR category G1 nor G2 fulfill the criteria for CKD. The CKD-EPI equation is validated in individuals 18 years of age and older. Currently the best equation for estimating glomerular filtration rate (GFR) from serum creatinine in children is the Bedside Zapata equation. It is less accurate in patients with extremes of muscle mass, restriction of dietary protein, ingestion of creatine, extra-renal metabolism of creatinine, or treatment with medications that affect renal tubular creatinine secretion. GFR/1.73 sq M predicted among blacks MDRD (S/P/Bld) [Vol rate/Area] 35.9 mL/min/{1.73_m2} Abnormal >60 [place] Glucose [Mass/Vol] 108 mg/dL High 70 - 100 mg/dL [place] Interpretation and review of laboratory results Abnormal [place] Phosphate [Mass/Vol] 3.5 mg/dL 2.5 - 4 .5 mg/dL [place] Potassium [Moles/Vol] 3.7 mmol/L 3.5 - 5.1 mmol/L [place] Sodium [Moles/Vol] 141 mmol/L 135 - 145 mmol/L [place] Urea nitrogen [Mass/Vol] 53 mg/dL High 7 - 20 mg/dL [place] Test Performed by [facility], [address] [place] [address]. , [address] NM Myocardial Perf Imaging M ulti Specton 03-01-2020 NM Myocardial Perf Imaging Multi Spect Patient Name: LYNETTE ANGULO Nuc Med Exam Date/Time 03/01/2020 13:54:31 EDT Exam NM Myocardial Perf Imaging Multi Spect Ordering Physician MOIZ CARPENTER LORI P. Accession Number [id number] CPT4 Codes 03934 (), 55765 (NM EKG TREADMILL - NUCLEAR) Reason For Exam Shortness of breath Report Nuclear Stress Myocardial Perfusion Study Regadenoson Protocol Gated SPECT Patient: Lynette Angulo Height: (61 in) Weight: (202 lb) : 1940 Age: 80 Gender: F Study Date: 03/01/2020 Accession#: Patient Room #: *ORDERING PHYSICIAN: * Catalina Carpenter *FELLOW: * Dakotah Gong Semaan *SUPERVISING PHYSICIAN: * Cayla, *RN: * Eilzabeth Oglesby RN Kenneth *RADIOLOGIST: * Kenroy Rothman MD *NUCLEAR TECH: * Adriana Khan *READING PHYSICIAN: * Joni Kulkarni Indications: Shortness breath (R06.02). Summary: 1. MPI: Mild inducible ischemic changes identified. 2. Stress ECG conclusions: The stress ECG is nondiagnostic due to LBBB. Radiologist Confirmation: This is a combined report. The ECG portion of the study was interpreted and reported by the fire alarm operator and the perfusion imaging portion of the study was interpreted and reported by Kenroy Rothman MD on 03/01/2020 03:05 PM. History: Hypertension treated. Diabetic non insulin dependent. CLIFFORD on CPAP. Paroxysmal atrial fibrillation. Medications: Levothyroxine (Synthroid). Losartan (Cozaar). Glimepiride (Amaryl). Aspirin. Rivaroxaban (Xarelto). Metoprolol (Lopressor, Toprol). Hydralazine. Pravastatin (Pravachol). Furosemide (Lasix). Allergies: See [employer] for allergy list. Pacemaker. Dyslipidemia. Patient is NPO per policy. No caffeine per policy. Medication list reviewed with patient and no contraindicated medications have been taken. Nuclear stress test 03/28/2015. Study data: The patient's lungs are clear to auscultation. Heart auscultation by RN revealed a regular rate and rhythm. Pre pain assessment is 0 out of 10. Post pain assessment is 0 out of 10. Patient status: Outpatient. Gated SPECT; rest/stress. One-day Sestamibi. Consent: The procedure was reviewed with the patient and the patient voices understanding. Study completion: The patient tolerated the procedure well. There were no complications. Administered medications: Regadenoson. Discharge: Discharge instruction given. The patient was discharged to home while ambulatory. Procedure data: Initial setup. The patient was brought to the laboratory. A baseline ECG was recorded. Surface ECG leads and blood pressure measurements were monitored. IV access obtained 22g L AC. 1 attempts for IV access. IV access per Mariann Ray. IV patent, site benign. IV discontinued, site benign. Regadenoson stress test. Stress testing was performed, with regadenoson by intravenous bolus at one minute into the protocol, for a total dose of 0.4mgover 10.00 sec, followed by a 5 ml saline flush. Exercise for 4 minutes completed by hand call center receptionist. The infusion was terminated due to end of protocol. A pharmacologic approach was used because the patient was physically unable to exercise. Baseline ECG: Normal sinus rhythm with left bundle branch block. Stress protocol: + +--+--------- ---+ +----- + +Stage +HR+BP +Symptoms +Comments + + +--+--------- ---+ +----- + +Rest +62+184/87 (119)+No symptoms. + + + +--+--------- ---+ +----- + +Peak stress +65+144/72 (96) +Chest discomfort.+mild tightess at + + + + + +peak, midsternal. + + +--+--------- ---+ +----- + +Recovery +68+133/65 (88) +Subsiding. + + + +--+--------- ---+ +----- + +Late recovery+61+175/70 (105)+No symptoms. + + + +--+--------- ---+ +----- + Stress results: Peak heart rate during stress was 68 bpm. (48% of maximal predicted heart rate). The maximal predicted heart rate was 141 bpm.The heart rate response to stress is normal. There is resting hypertension with an appropriate response to stress. Peak blood pressure achieved during test: 144/72 The rate-pressure product for the peak heart rate and blood pressure was 05612 mm Hg/min. The patient experienced typical anginalchest pain during stressnon-limiting , which resolved spontaneously. Stress ECG: The stress ECG is nondiagnostic due to LBBB. Isotope administration: + + -----+ ----+ +Stage +Rest +Stress + + + -----+ ----+ +Agent +Tc-99m sestamibi+Tc-99m sestamibi + + + -----+ ----+ +Injected dose +11.5 mCi +34.6 mCi + + + -----+ ----+ +Date +03/01/2020 +03/01/2020 + + + -----+ ----+ +Injection time+12:10 PM +01:15 PM + + + -----+ ----+ +Injection at + +Peak pharmacologic stress+ + + -----+ ----+ +Injected by +DM +DM + + + -----+ ----+ Image properties: Imaging information: The study was gated. The patient was imaged in the supine position.The image quality was fair. Rotating projection images reveal breast attenuation. Myocardial perfusion imaging: The TID ratio is 1.11. There is a small to moderate, mild, reversible defect involving the apical anterior, basal and mid anterolateral, and apical lateral wall(s). Gated SPECT: The left ventricular end-diastolic volume is 99 ml. The left ventricular end-systolic volume is 39 ml. The calculated left ventricular ejection fraction post stress is 61%. Left ventricular function appears visually normal. Electronically signed by Joni Kulkarni 03/01/2020 17:25 Final Dictated: 03/01/2020 5:25 pm Dictating Physician: MD KULKARNI KENNETH D Signed Date and Time: 03/01/2020 5:25 pm Signed by: MD KULKARNI KENNETH D [facility] NM Myocardial Spect Rest Exe rcise or Rxon 03-01-2020 Nuclear Stress Myoca rdial Perfusion Study Regadenoson Protocol Gated SPECT Patient: Lynette Angulo Height: (61 in) Weight: (202 lb) : 1940 Age: 80 Gender: F Study Date: 03/01/2020 Accession#: Patient Room #: *ORDERING PHYSICIAN: Catalina Virk *FELLOW: * Dakotah Gong Semaan *SUPERVISING PHYSICIAN: * Cayla, *RN: Elizabeth Davis,MIN Quinones *RADIOLOGIST: * Kenroy Rothman MD *NUCLEAR TECH: * Adriana Khan *READING PHYSICIAN: * Joni Kulkarni Indications: Shortness breath (R06.02). Summary: 1. MPI: Mild inducible ischemic changes identified. 2. Stress ECG conclusions: The stress ECG is nondiagnostic due to LBBB. Radiologist Confirmation: This is a combined report. The ECG portion of the study was interpreted and reported by the fire alarm operator and the perfusion imaging portion of the study was interpreted and reported by Kenroy Rothman MD on 03/01/2020 03:05 PM. History: Hypertension treated. Diabetic non insulin dependent. CLIFFORD on CPAP. Paroxysmal atrial fibrillation. Medications: Levothyroxine (Synthroid). Losartan (Cozaar). Glimepiride (Amaryl). Aspirin. Rivaroxaban (Xarelto). Metoprolol (Lopressor, Toprol). Hydralazine. Pravastatin (Pravachol). Furosemide (Lasix). Allergies: See [employer] for allergy list. Pacemaker. Dyslipidemia. Patient is NPO per policy. No caffeine per policy. Medication list reviewed with patient and no contraindicated medications have been taken. Nuclear stress test 03/28/2015. Study data: The patient's lungs are clear to auscultation. Heart auscultation by RN revealed a regular rate and rhythm. Pre pain assessment is 0 out of 10. Post pain assessment is 0 out of 10. Patient status: Outpatient. Gated SPECT; rest/stress. One-day Sestamibi. Consent: The procedure was reviewed with the patient and the patient voices understanding. Study completion: The patient tolerated the procedure well. There were no complications. Administered medications: Regadenoson. Discharge: Discharge instruction given. The patient was discharged to home while ambulatory. Procedure data: Initial setup. The patient was brought to the laboratory. A baseline ECG was recorded. Surface ECG leads and blood pressure measurements were monitored. IV access obtained 22g L AC. 1 attempts for IV access. IV access per Mariann Ray. IV patent, site benign. IV discontinued, site benign. Regadenoson stress test. Stress testing was performed, with regadenoson by intravenous bolus at one minute into the protocol, for a total dose of 0.4mgover 10.00 sec, followed by a 5 ml saline flush. Exercise for 4 minutes completed by hand call center receptionist. The infusion was terminated due to end of protocol. A pharmacologic approach was used because the patient was physically unable to exercise. Baseline ECG: Normal sinus rhythm with left bundle branch block. Stress protocol: + +--+--------- ---+ +----- + +Stage +HR+BP +Symptoms +Comments + + +--+--------- ---+ +----- + +Rest +62+184/87 (119)+No symptoms. + + + +--+--------- ---+ +----- + +Peak stress +65+144/72 (96) +Chest discomfort.+mild tightess at + + + + + +peak, midsternal. + + +--+--------- ---+ +----- + +Recovery +68+133/65 (88) +Subsiding. + + + +--+--------- ---+ +----- + +Late recovery+61+175/70 (105)+No symptoms. + + + +--+--------- ---+ +----- + Stress results: Peak heart rate during stress was 68 bpm. (48% of maximal predicted heart rate). The maximal predicted heart rate was 141 bpm.The heart rate response to stress is normal. There is resting hypertension with an appropriate response to stress. Peak blood pressure achieved during test: 144/72 The rate-pressure product for the peak heart rate and blood pressure was 58152 mm Hg/min. The patient experienced typical anginalchest pain during stressnon-limiting , which resolved spontaneously. Stress ECG: The stress ECG is nondiagnostic due to LBBB. Isotope administration: + + -----+ ----+ +Stage +Rest +Stress + + + -----+ ----+ +Agent +Tc-99m sestamibi+Tc-99m sestamibi + + + -----+ ----+ +Injected dose +11.5 mCi +34.6 mCi + + + -----+ ----+ +Date +03/01/2020 +03/01/2020 + + + -----+ ----+ +Injection time+12:10 PM +01:15 PM + + + -----+ ----+ +Injection at + +Peak pharmacologic stress+ + + -----+ ----+ +Injected by +DM +DM + + + -----+ ----+ Image properties: Imaging information: The study was gated. The patient was imaged in the supine position.The image quality was fair. Rotating projection images reveal breast attenuation. Myocardial perfusion imaging: The TID ratio is 1.11. There is a small to moderate, mild, reversible defect involving the apical anterior, basal and mid anterolateral, and apical lateral wall(s). Gated SPECT: The left ventricular end-diastolic volume is 99 ml. The left ventricular end-systolic volume is 39 ml. The calculated left ventricular ejection fraction post stress is 61%. Left ventricular function appears visually normal. Electronically signed by Joni Kulkarni 03/01/2020 17:25 [facility], [place], [facility] Incoming Cardiology Results From [facility] - 03/01/2020 5:25 PM EDT Nuclear Stress Myocardial Perfusion Study Regadenoson Protocol Gated SPECT Patient: Lynette Angulo Height: (61 in) Weight: (202 lb) : 1940 Age: 80 Gender: F Study Date: 03/01/2020 Accession#: Patient Room #: *ORDERING PHYSICIAN: Catalina Virk *FELLOW: * Dakotah Gong Semaan *SUPERVISING PHYSICIAN: * Cayla, *RN: * Elizabeth Oglesby,MIN Quinones *RADIOLOGIST: * Kenroy Rothman MD *NUCLEAR TECH: * Adriaan Khan *READING PHYSICIAN: * Joni Kulkarni Indications: Shortness breath (R06.02). Summary: 1. MPI: Mild inducible ischemic changes identified. 2. Stress ECG conclusions: The stress ECG is nondiagnostic due to LBBB. Radiologist Confirmation: This is a combined report. The ECG portion of the study was interpreted and reported by the fire alarm operator and the perfusion imaging portion of the study was interpreted and reported by Kenroy Rothman MD on 03/01/2020 03:05 PM. History: Hypertension treated. Diabetic non insulin dependent. CLIFFORD on CPAP. Paroxysmal atrial fibrillation. Medications: Levothyroxine (Synthroid). Losartan (Cozaar). Glimepiride (Amaryl). Aspirin. Rivaroxaban (Xarelto). Metoprolol (Lopressor, Toprol). Hydralazine. Pravastatin (Pravachol). Furosemide (Lasix). Allergies: See [employer] for allergy list. Pacemaker. Dyslipidemia. Patient is NPO per policy. No caffeine per policy. Medication list reviewed with patient and no contraindicated medications have been taken. Nuclear stress test 03/28/2015. Study data: The patient's lungs are clear to auscultation. Heart auscultation by RN revealed a regular rate and rhythm. Pre pain assessment is 0 out of 10. Post pain assessment is 0 out of 10. Patient status: Outpatient. Gated SPECT; rest/stress. One-day Sestamibi. Consent: The procedure was reviewed with the patient and the patient voices understanding. Study completion: The patient tolerated the procedure well. There were no complications. Administered medications: Regadenoson. Discharge: Discharge instruction given. The patient was discharged to home while ambulatory. Procedure data: Initial setup. The patient was brought to the laboratory. A baseline ECG was recorded. Surface ECG leads and blood pressure measurements were monitored. IV access obtained 22g L AC. 1 attempts for IV access. IV access per Mariann Ray. IV patent, site benign. IV discontinued, site benign. Regadenoson stress test. Stress testing was performed, with regadenoson by intravenous bolus at one minute into the protocol, for a total dose of 0.4mgover 10.00 sec, followed by a 5 ml saline flush. Exercise for 4 minutes completed by hand call center receptionist. The infusion was terminated due to end of protocol. A pharmacologic approach was used because the patient was physically unable to exercise. Baseline ECG: Normal sinus rhythm with left bundle branch block. Stress protocol: + +--+--------- ---+ +----- + +Stage +HR+BP +Symptoms +Comments + + +--+--------- ---+ +----- + +Rest +62+184/87 (119)+No symptoms. + + + +--+--------- ---+ +----- + +Peak stress +65+144/72 (96) +Chest discomfort.+mild tightess at + + + + + +peak, midsternal. + + +--+--------- ---+ +----- + +Recovery +68+133/65 (88) +Subsiding. + + + +--+--------- ---+ +----- + +Late recovery+61+175/70 (105)+No symptoms. + + + +--+--------- ---+ +----- + Stress results: Peak heart rate during stress was 68 bpm. (48% of maximal predicted heart rate). The maximal predicted heart rate was 141 bpm.The heart rate response to stress is normal. There is resting hypertension with an appropriate response to stress. Peak blood pressure achieved during test: 144/72 The rate-pressure product for the peak heart rate and blood pressure was 64029 mm Hg/min. The patient experienced typical anginalchest pain during stressnon-limiting , which resolved spontaneously. Stress ECG: The stress ECG is nondiagnostic due to LBBB. Isotope administration: + + -----+ ----+ +Stage +Rest +Stress + + + -----+ ----+ +Agent +Tc-99m sestamibi+Tc-99m sestamibi + + + -----+ ----+ +Injected dose +11.5 mCi +34.6 mCi + + + -----+ ----+ +Date +03/01/2020 +03/01/2020 + + + -----+ ----+ +Injection time+12:10 PM +01:15 PM + + + -----+ ----+ +Injection at + +Peak pharmacologic stress+ + + -----+ ----+ +Injected by +DM +DM + + + -----+ ----+ Image properties: Imaging information: The study was gated. The patient was imaged in the supine position.The image quality was fair. Rotating projection images reveal breast attenuation. Myocardial perfusion imaging: The TID ratio is 1.11. There is a small to moderate, mild, reversible defect involving the apical anterior, basal and mid anterolateral, and apical lateral wall(s). Gated SPECT: The left ventricular end-diastolic volume is 99 ml. The left ventricular end-systolic volume is 39 ml. The calculated left ventricular ejection fraction post stress is 61%. Left ventricular function appears visually normal. Electronically signed by Joni Kulkarni 03/01/2020 17:25 [facility] Auto Differentialon 02-1 9-2020 Absolute Baso # 0.0 10*3/uL 0 - 0.2 10*3/uL [place] Absolute Neut # 3.1 10*3/uL 1.8 - 7 10*3/uL [place] Basophils/100 WBC (Bld) 0.7 % 0 - 2 % [place] Eosinophils (Bld) [#/Vol] 0.1 10*3/uL 0 - 0.5 10*3/uL [place] Eosinophils/100 WBC (Bld) 1.5 % 1 - 6 % [place] [place] Erythrocyte distribution width (RBC) [Ratio] 13.8 % 11.5 - 14.5 % [place] Granulocytes/100 WBC (Bld) 57.0 % 40 - 80 % [place] Hematocrit (Bld) [Volume fraction] 36.5 % 35 - 47 % [place] Hemoglobin (Bld) [Mass/Vol] 11.9 g/dL 11.7 - 16 g/dL [place] Interpretation and review of laboratory results Abnormal [place] Lymphocytes (Bld) [#/Vol] 1.7 10*3/uL 1 - 4.3 10*3/uL [place] Lymphocytes/100 WBC (Bld) 31.1 % 20 - 40 % [place] MCH (RBC) [Entitic mass] 31.6 pg 26 - 34 pg [place] MCHC (RBC) [Mass/Vol] 32.6 % 32 - 36 % [place], [place] MCV (RBC) [Entitic vol] 96.8 fL 79 - 98 fL [place] Monocytes (Bld) [#/Vol] 0.5 10*3/uL 0 - 0.8 10*3/uL [place] Monocytes/100 WBC (Bld) 9.7 % 2 - 10 % [place] Platelet mean volume (Bld) [Entitic vol] 7.7 fL 7.4 - 10.4 fL [place] Platelets (Bld) [#/Vol] 267 10*3/uL 140 - 440 10*3/uL [facility], [place] RBC (Bld) [#/Vol] 3.77 10*6/uL Low 3.8 - 5.2 10*6/uL [facility]- [place] WBC (Bld) [#/Vol] 5.4 10*3/uL 3.6 - 10.7 10*3/uL [facility] Test Performed by [facility], [address] , [place], [place] [address] [facility] [place], [place] Creatinine, Random Urineon 0 11-17-2019 Creatinine (U) [Mass/Vol] 82.2 mg/dL No Range [facility] Otheron 11-17-2019 Test Performed by [facility], [address] , [place], [place] [address] [facility] [place] PTH, [place] 11-17-2019 Interpretation and review of laboratory results Abnormal [facility], [place] Pth Intact 123.6 pg/mL High 15 - 63 pg/mL [facility] Test Performed by [facility], [address] [place], [place] [address] [facility] [place] Protein, urine, randomon Interpretation and review of laboratory results Abnormal [facility], [place] Protein (U) [Mass/Vol] 20 mg/dL High No Range Me [facility] Renal Function Panelon 11-17 Albumin [Mass/Vol] 4.4 g/dL 3.5 - 5 g/dL [facility], [place] Anion gap [Moles/Vol] 10 mmol/L [facility] Calcium [Mass/Vol] 9.9 mg/dL 8.4 - 10. 4 mg/dL [facility], [place] Chloride [Moles/Vol] 100 mmol/L 98 - 10 7 mmol/L [facility], [place] CO2 [Moles/Vol] 31 mmol/L High 22 - 30 mmol/L [facility] [place] Creatinine [Mass/Vol] 1.34 mg/dL High 0.52 - 1.25 mg/dL [facility] [place], [place] EGFR IF NonAfrican [place] 38.2 mL/min >60 [facility]- [place] Comment on above: Source- MDRD equatio n with creatinine calibration to IDNM(NKDEP) eGFR not recommended for drug dose adjustment GFR/1.73 sq M predicted among blacks MDRD (S/P/Bld) [Vol rate/Area] 46.3 mL/min/{1.73_m2} >60 [place] Glucose [Mass/Vol] 116 mg/dL High 70 - 100 mg/dL [place] Interpretation and review of laboratory results Abnormal [place] Phosphate [Mass/Vol] 4.1 mg/dL 2.5 - 4 .5 mg/dL [place] Potassium [Moles/Vol] 4.1 mmol/L 3.5 - 5.1 mmol/L [place] Sodium [Moles/Vol] 140 mmol/L 135 - 145 mmol/L [place] Urea nitrogen [Mass/Vol] 37 mg/dL High 7 - 20 mg/dL [place] Test Performed by [facility], [address] [place], [place] [id number] [place] [address] Vitamin D 25 Hydroxyon 11-17 Vit D, 25-Hydroxy 42 ng/mL 30 - 100 ng/mL [place] Comment on above: Therapy is based on measurement of Total 25-OHD with the following classification levels: Less than 20 ng/mL: Indicative of Vit D deficiency 20-30 ng/mL: Suggests Vit D insufficiency Optimal: Greater than or equal to 30 ng/mL Test performed by [employer] Competitive Immunoassay, measuring Total Vitamin D, not individual fractions. Test Performed by [facility], [address], [place], [place] [address] [place], [place] XR CHEST STANDARD (2 VW)Orde red By: Noris Youngblood on 09-30-2019 Patient Name: LYNETTE GIBBS ---Diagnostic Radiology--- Exam Date/Time 09/30/2019 14:03:02 EST Exam CR Chest PA/LAT Ordering Physician NORIS YOUNGBLOOD Accession Number [id number] CPT4 Codes 37285 () Reason For Exam respiratory abnormally Report CHEST, PA & LATERAL: INDICATION: Respiratory distress COMPARISON: No previous studies are available for comparison. PA and lateral views of the chest were obtained. The heart is normal in size. The mediastinal silhouette is normal. The lungs are clear. There are no effusions or infiltrates. There is mild biapical pleural thickening. Arthritic changes of the spine and shoulders are present. IMPRESSION: Negative chest. Report Dictated on --- Final --- Dictating Physician: DO LANE ALFRED Signed Date and Time: 09/30/2019 2:21 pm Signed by: DO LANE ALFRED Transcribed Date and Time: 09/30/2019 2:22 [facility] Work Phone: [facility], [facility] Incoming Radiology Results From [facility] - 09/30/2019 2:22 PM EST Patient Name: LYNETTE ANGULO ---Diagnostic Radiology--- Exam Date/Time 09/30/2019 14:03:02 EST Exam CR Chest PA/LAT Ordering Physician NORIS YOUNGBLOOD Accession Number [id number] CPT4 Codes 61815 () Reason For Exam respiratory abnormally Report CHEST, PA & LATERAL: INDICATION: Respiratory distress COMPARISON: No previous studies are available for comparison. PA and lateral views of the chest were obtained. The heart is normal in size. The mediastinal silhouette is normal. The lungs are clear. There are no effusions or infiltrates. There is mild biapical pleural thickening. Arthritic changes of the spine and shoulders are present. IMPRESSION: Negative chest. Report Dictated on --- Final --- Dictating Physician: DO LANE ALFRED Signed Date and Time: 09/30/2019 2:21 pm Signed by: DO LANE ALFRED Transcribed Date and Time: 09/30/2019 2:22 [facility] Work Phone: XR KNEE LEFT (1-2 VIEWS)Orde red By: Trung Ng on 09-17-2019 Patient Name: LYNETTE GIBBS ---Diagnostic Radiology--- Exam Date/Time 09/17/2019 08:00:01 EST Exam CR Knee 1 or 2 Views Left Ordering Physician MD NG DONALD L. Accession Number [id number] CPT4 Codes 05961 () Reason For Exam pain Report CLINICAL INFORMATION: Left knee pain and swelling. Recent arthroplasty. Standing AP and tunnel views of both knees and lateral and sunrise views of the left knee are provided. The examination is compared to a previous study dated 12/30/2018. FINDINGS: The patient is status post total left knee arthroplasty. There is no evidence of mary-implant fracture, dislocation, or loosening. A small joint effusion is suspected on the lateral film. This has decreased in size when compared to the previous study. Mild degenerative changes are noted about the right knee with mild medial joint space narrowing. The bones are osteopenic. IMPRESSION: 1. Satisfactory images status post total left knee arthroplasty. 2. Small left-sided joint effusion. This has decreased slightly in size. 3. Mild degenerative changes about the right knee. 4. Osteopenia, not unusual for patient age. Report Dictated on Workstation: [employer] --- Final --- Dictating Physician: MD VELEZ JEFFREY Signed Date and Time: 09/17/2019 8:14 am Signed by: MD VELEZ JEFFREY Transcribed Date and Time: 09/17/2019 8:15 [facility] Work Phone: [facility], [facility] In[facility] Rad[facility] Results From [facility] - 09/17/2019 8:15 AM EST Patient Name: LYNETTE ANGULO ---Diagnostic Radiology--- Exam Date/Time 09/17/2019 08:00:01 EST Exam CR Knee 1 or 2 Views Left Ordering Physician MD NG DONALD L. Accession Number [id number] CPT4 Codes 38199 () Reason For Exam pain Report CLINICAL INFORMATION: Left knee pain and swelling. Recent arthroplasty. Standing AP and tunnel views of both knees and lateral and sunrise views of the left knee are provided. The examination is compared to a previous study dated 12/30/2018. FINDINGS: The patient is status post total left knee arthroplasty. There is no evidence of mary-implant fracture, dislocation, or loosening. A small joint effusion is suspected on the lateral film. This has decreased in size when compared to the previous study. Mild degenerative changes are noted about the right knee with mild medial joint space narrowing. The bones are osteopenic. IMPRESSION: 1. Satisfactory images status post total left knee arthroplasty. 2. Small left-sided joint effusion. This has decreased slightly in size. 3. Mild degenerative changes about the right knee. 4. Osteopenia, not unusual for patient age. Report Dictated on Workstation: [employer] --- Final --- Dictating Physician: MD VELEZ JEFFREY Signed Date and Time: 09/17/2019 8:14 am Signed by: MD VELEZ JEFFREY Transcribed Date and Time: 09/17/2019 8:15 [facility] Work Phone: XR Knee Bilateral StandingOr dered By: Trung Ng on 09-17-2019 Patient Name: LYNETTE GIBBS ---Diagnostic Radiology--- Exam Date/Time 09/17/2019 08:00:01 EST Exam CR Knee Standing AP Bilateral Ordering Physician MD NG DONALD L. Accession Number [id number] CPT4 Codes 73668 () Reason For Exam pain Report CLINICAL INFORMATION: Left knee pain and swelling. Recent arthroplasty. Standing AP and tunnel views of both knees and lateral and sunrise views of the left knee are provided. The examination is compared to a previous study dated 12/30/2018. FINDINGS: The patient is status post total left knee arthroplasty. There is no evidence of mary-implant fracture, dislocation, or loosening. A small joint effusion is suspected on the lateral film. This has decreased in size when compared to the previous study. Mild degenerative changes are noted about the right knee with mild medial joint space narrowing. The bones are osteopenic. IMPRESSION: 1. Satisfactory images status post total left knee arthroplasty. 2. Small left-sided joint effusion. This has decreased slightly in size. 3. Mild degenerative changes about the right knee. 4. Osteopenia, not unusual for patient age. Report Dictated on Workstation: [id number] --- Final --- Dictating Physician: MD VELEZ JEFFREY Signed Date and Time: 09/17/2019 8:14 am Signed by: MD VELEZ JEFFREY Transcribed Date and Time: 09/17/2019 8:15 [facility] Work Phone: [facility], [facility] Incoming Radiology Results From [facility] - 09/17/2019 8:15 AM EST Patient Name: LYNETTE ANGULO ---Diagnostic Radiology--- Exam Date/Time 09/17/2019 08:00:01 EST Exam CR Knee Standing AP Bilateral Ordering Physician MD ALLIE, TRUNG Beltran Accession Number [id number] CPT4 Codes 30532 () Reason For Exam pain Report CLINICAL INFORMATION: Left knee pain and swelling. Recent arthroplasty. Standing AP and tunnel views of both knees and lateral and sunrise views of the left knee are provided. The examination is compared to a previous study dated 12/30/2018. FINDINGS: The patient is status post total left knee arthroplasty. There is no evidence of mary-implant fracture, dislocation, or loosening. A small joint effusion is suspected on the lateral film. This has decreased in size when compared to the previous study. Mild degenerative changes are noted about the right knee with mild medial joint space narrowing. The bones are osteopenic. IMPRESSION: 1. Satisfactory images status post total left knee arthroplasty. 2. Small left-sided joint effusion. This has decreased slightly in size. 3. Mild degenerative changes about the right knee. 4. Osteopenia, not unusual for patient age. Report Dictated on Workstation: [id number] --- Final --- Dictating Physician: MD VELEZ JEFFREY Signed Date and Time: 09/17/2019 8:14 am Signed by: MD VELEZ JEFFREY Transcribed Date and Time: 09/17/2019 8:15 [facility] Work Phone: Renal Function Panelon 08-23 Albumin [Mass/Vol] 4.3 g/dL 3.5 - 5 g/dL [place] Anion gap [Moles/Vol] 13 mmol/L [place], [place] Calcium [Mass/Vol] 10.4 mg/dL 8.4 - 10. 4 mg/dL [place] Chloride [Moles/Vol] 99 mmol/L 98 - 10 7 mmol/L [place] CO2 [Moles/Vol] 28 mmol/L 22 - 30 mmol/L [place] Creatinine [Mass/Vol] 1.91 mg/dL High 0.52 - 1.25 mg/dL [place] EGFR IF NonAfrican [place] 25.4 mL/min >60 [place] Comment on above: Source- MDRD equatio n with creatinine calibration to IDMS(NKDEP) eGFR not recommended for drug dose adjustment GFR/1.73 sq M predicted among blacks MDRD (S/P/Bld) [Vol rate/Area] 30.7 mL/min/{1.73_m2} >60 [place] Glucose [Mass/Vol] 175 mg/dL High 70 - 100 mg/dL [place] Interpretation and review of laboratory results Abnormal [place] Phosphate [Mass/Vol] 4.0 mg/dL 2.5 - 4 .5 mg/dL [place] Potassium [Moles/Vol] 4.1 mmol/L 3.5 - 5.1 mmol/L [place] Sodium [Moles/Vol] 140 mmol/L 135 - 145 mmol/L [place] Urea nitrogen [Mass/Vol] 74 mg/dL High 7 - 20 mg/dL [place] Test Performed by [facility], [address] [place] [address] Eric. , [address] Renal Arterial Duplex Com pleteon 08-02-[address] [facility] Renal Artery Duplex Ordering Physician: Leidy Benz Barrel Lapper: Alyssa Patel Interpreting Physician: Kenroy Levine MD Location: [facility] Indications: Hypertension. Conclusions 1. Study is negative for hemodynamically significant stenosis involving the right renal artery. 2. Study is negative for hemodynamically significant stenosis involving the left renal artery. 3. The right renal veinappears patent and demonstrates normal phasicity. 4. The left renal veinappears patent and demonstrates normal phasicity. 5. The right kidney size is within normal limits. 6. The left kidney size is within normal limits. History: Risk factors: Lifelong nonsmoker. Hypertension. Diabetes mellitus. Obese. Study data: Complete renal arterial duplex. Duplex scan, grayscale 2D imaging, color Doppler imaging, and spectral Doppler analysis. Location: Vascular laboratory. Procedure: A vascular evaluation was performed with the patient in the supine position. Images were obtained using a Yowza E9 vascular ultrasound machine. The abdominal aorta, the right renal and left renal arteries, and the left renal and right renal veins were studied. The study was technically limited due to limited anatomical access to patient's right kidney, obesity, and bowel gas. Arterial flow: + -+ + +- ---+--------+ +Location +PSV(cm/sec)+EDV(cm/sec)+RI +AT + + -+ + +- ---+--------+ +Suprarenal aorta +87 + +----+--------+ + -+ + +- ---+--------+ +R renal artery max , prox +95 +19 +----+--------+ + -+ + +- ---+--------+ +R renal artery max , mid +63 +12 +----+--------+ + -+ + +- ---+--------+ +R renal artery max , distal+61 +15 +----+--------+ + -+ + +- ---+--------+ +R segmental + + +0. 82+0.06 sec+ + -+ + +- ---+--------+ +R arcuate + + +0. 76+0.06 sec+ + -+ + +- ---+--------+ +L renal artery max , prox +71 +22 +----+--------+ + -+ + +- ---+--------+ +L renal artery max , mid +66 +16 +----+--------+ + -+ + +- ---+--------+ +L renal artery max , distal+40 +11 +----+--------+ + -+ + +- ---+--------+ +L segmental + + +0. 80+0.06 sec+ + -+ + +- ---+--------+ +L arcuate + + +0. 73+0.04 sec+ + -+ + +- ---+--------+ Velocity ratios: + +----- + + +Ratio+ + +----- + +Right renal / aortic+1.09 + + +----- + +Left renal / aortic +0.82 + + +----- + Kidney length: +---------+ +--- --------+ + +Right kidney+Left kidney+ +---------+ +--- --------+ +Long axis+9.74 cm +9.65 cm + +---------+ +--- --------+ Venous flow and imaging: + +-------+ +Location +Overall+ + +-------+ +R renal vein+Patent + + +-------+ +L renal vein+Patent + + +-------+ Prepared and electronically signed by Kenroy Levine MD 08/02/2019 15:52 [facility], [facility] Cardiology Results From [facility] - 08/02/2019 3:52 PM EST [facility] Renal Artery Duplex Ordering Physician: Leidy Benz Barrel Lapper: Alyssa Patel Interpreting Physician: Kenroy Levine MD Location: [facility] Indications: Hypertension. Conclusions 1. Study is negative for hemodynamically significant stenosis involving the right renal artery. 2. Study is negative for hemodynamically significant stenosis involving the left renal artery. 3. The right renal veinappears patent and demonstrates normal phasicity. 4. The left renal veinappears patent and demonstrates normal phasicity. 5. The right kidney size is within normal limits. 6. The left kidney size is within normal limits. History: Risk factors: Lifelong nonsmoker. Hypertension. Diabetes mellitus. Obese. Study data: Complete renal arterial duplex. Duplex scan, grayscale 2D imaging, color Doppler imaging, and spectral Doppler analysis. Location: Vascular laboratory. Procedure: A vascular evaluation was performed with the patient in the supine position. Images were obtained using a Yowza E9 vascular ultrasound machine. The abdominal aorta, the right renal and left renal arteries, and the left renal and right renal veins were studied. The study was technically limited due to limited anatomical access to patient's right kidney, obesity, and bowel gas. Arterial flow: + -+ + +- ---+--------+ +Location +PSV(cm/sec)+EDV(cm/sec)+RI +AT + + -+ + +- ---+--------+ +Suprarenal aorta +87 + +----+--------+ + -+ + +- ---+--------+ +R renal artery max , prox +95 +19 +----+--------+ + -+ + +- ---+--------+ +R renal artery max , mid +63 +12 +----+--------+ + -+ + +- ---+--------+ +R renal artery max , distal+61 +15 +----+--------+ + -+ + +- ---+--------+ +R segmental + + +0. 82+0.06 sec+ + -+ + +- ---+--------+ +R arcuate + + +0. 76+0.06 sec+ + -+ + +- ---+--------+ +L renal artery max , prox +71 +22 +----+--------+ + -+ + +- ---+--------+ +L renal artery max , mid +66 +16 +----+--------+ + -+ + +- ---+--------+ +L renal artery max , distal+40 +11 +----+--------+ + -+ + +- ---+--------+ +L segmental + + +0. 80+0.06 sec+ + -+ + +- ---+--------+ +L arcuate + + +0. 73+0.04 sec+ + -+ + +- ---+--------+ Velocity ratios: + +----- + + +Ratio+ + +----- + +Right renal / aortic+1.09 + + +----- + +Left renal / aortic +0.82 + + +----- + Kidney length: +---------+ +--- --------+ + +Right kidney+Left kidney+ +---------+ +--- --------+ +Long axis+9.74 cm +9.65 cm + +---------+ +--- --------+ Venous flow and imaging: + +-------+ +Location +Overall+ + +-------+ +R renal vein+Patent + + +-------+ +L renal vein+Patent + + +-------+ Prepared and electronically signed by Kenroy Levine MD 08/02/2019 15:52 [place] CBC Auto Differentialon 10-2 Absolute Baso # 0.0 10*3/uL 0 - 0.2 10*3/uL [place] Absolute Neut # 2.8 10*3/uL 1.8 - 7 10*3/uL [place] Basophils/100 WBC (Bld) 0.6 % 0 - 2 % [place] Eosinophils (Bld) [#/Vol] 0.1 10*3/uL 0 - 0.5 10*3/uL [place] Eosinophils/100 WBC (Bld) 2.1 % 1 - 6 % [place] Erythrocyte distribution width (RBC) [Ratio] 13.4 % 11.5 - 14.5 % [place] Granulocytes/100 WBC (Bld) 57.1 % 40 - 80 % [place] Hematocrit (Bld) [Volume fraction] 35.7 % 35 - 47 % [place] Hemoglobin (Bld) [Mass/Vol] 12.2 g/dL 11.7 - 16 g/dL [place] Interpretation and review of laboratory results Abnormal [place] Lymphocytes (Bld) [#/Vol] 1.4 10*3/uL 1 - 4.3 10*3/uL [place] Lymphocytes/100 WBC (Bld) 28.4 % 20 - 40 % [place] MCH (RBC) [Entitic mass] 32.1 pg 26 - 34 pg [place] MCHC (RBC) [Mass/Vol] 34.1 % 32 - 36 % [place] MCV (RBC) [Entitic vol] 94.1 fL 79 - 98 fL [place] Monocytes (Bld) [#/Vol] 0.6 10*3/uL 0 - 0.8 10*3/uL [place] Monocytes/100 WBC (Bld) 11.8 % High 2 - 10 % [place] Platelet mean volume (Bld) [Entitic vol] 8.0 fL 7.4 - 10.4 fL [place] Platelets (Bld) [#/Vol] 259 10*3/uL 140 - 440 10*3/uL [place] RBC (Bld) [#/Vol] 3.80 10*6/uL 3.8 - 5.2 10*6/uL [place] WBC (Bld) [#/Vol] 5.0 10*3/uL 3.6 - 10.7 10*3/uL [place] Test Performed by [facility], [facility] [address] , [address] Renal Function Panelon 07-19 Albumin [Mass/Vol] 4.2 g/dL 3.5 - 5 g/dL [place] Anion gap [Moles/Vol] 11 mmol/L [place] Calcium [Mass/Vol] 10.5 mg/dL High 8.4 - 10. 4 mg/dL [place] Chloride [Moles/Vol] 104 mmol/L 98 - 10 7 mmol/L [place] CO2 [Moles/Vol] 28 mmol/L 22 - 30 mmol/L [place] Creatinine [Mass/Vol] 1.53 mg/dL High 0.52 - 1.25 mg/dL [place] EGFR IF NonAfrican [place] 32.8 mL/min >60 [place] Comment on above: Source- MDRD equatio n with creatinine calibration to IDMS(NKDEP) eGFR not recommended for drug dose adjustment GFR/1.73 sq M predicted among blacks MDRD (S/P/Bld) [Vol rate/Area] 39.7 mL/min/{1.73_m2} >60 [place] Glucose [Mass/Vol] 121 mg/dL High 70 - 100 mg/dL [place] Interpretation and review of laboratory results Abnormal [place] Phosphate [Mass/Vol] 4.0 mg/dL 2.5 - 4 .5 mg/dL [place] Potassium [Moles/Vol] 4.0 mmol/L 3.5 - 5.1 mmol/L [place] Sodium [Moles/Vol] 143 mmol/L 135 - 145 mmol/L [place] Urea nitrogen [Mass/Vol] 44 mg/dL High 7 - 20 mg/dL [place] Test Performed by [facility], [facility] [address] , [address] APTTon 06-07-2019 aPTT Coag (Bld) [Time] 39.5 s High 20 - 30.5 s [place] Comment on above: NOTE: The therapeuti c time for Heparin anticoagulation, based on Xa activity inhibition, is an APTT of 46-80 seconds. Interpretation and review of laboratory results Abnormal [place] CBC Auto Differentialon Granulocytes/100 WBC (Bld) 64.9 % 40 - 80 % [place] Granulocytes/100 WBC (Bld) 64.5 % 40 - 80 % [place] Hematocrit (Bld) [Volume fraction] 37.0 % 35 - 47 % [place] Hematocrit (Bld) [Volume fraction] 37.2 % 35 - 47 % [place] Hemoglobin (Bld) [Mass/Vol] 12.5 g/dL 11.7 - 16 g/dL [place] Hemoglobin (Bld) [Mass/Vol] 12.4 g/dL 11.7 - 16 g/dL [place] Lymphocytes (Bld) [#/Vol] 1.4 10*3/uL 1 - 4.3 10*3/uL [place] Lymphocytes (Bld) [#/Vol] 1.5 10*3/uL 1 - 4.3 10*3/uL [place] Lymphocytes/100 WBC (Bld) 25.3 % 20 - 40 % [place] Lymphocytes/100 WBC (Bld) 25.5 % 20 - 40 % [place] MCH (RBC) [Entitic mass] 31.5 pg 26 - 34 pg [place] MCH (RBC) [Entitic mass] 31.1 pg 26 - 34 pg [place] MCHC (RBC) [Mass/Vol] 33.8 % 32 - 36 % [place] MCHC (RBC) [Mass/Vol] 33.3 % 32 - 36 % [place] MCV (RBC) [Entitic vol] 93.4 fL 79 - 98 fL [place] MCV (RBC) [Entitic vol] 93.3 fL 79 - 98 fL [place] Monocytes/100 WBC (Bld) 8.1 % 2 - 10 % [place] Monocytes/100 WBC (Bld) 8.3 % 2 - 10 % [place] Platelet mean volume (Bld) [Entitic vol] 7.4 fL 7.4 - 10.4 fL [place] Platelet mean volume (Bld) [Entitic vol] 7.6 fL 7.4 - 10.4 fL [place] RBC (Bld) [#/Vol] 3.96 10*6/uL 3.8 - 5.2 10*6/uL [place] RBC (Bld) [#/Vol] 3.99 10*6/uL 3.8 - 5.2 10*6/uL [place] WBC (Bld) [#/Vol] 5.7 10*3/uL 3.6 - 10.7 10*3/uL [place] WBC (Bld) [#/Vol] 5.8 10*3/uL 3.6 - 10.7 10*3/uL [place] Comprehensive Metabolic Pane jay 06-07-2019 Albumin [Mass/Vol] 4.3 g/dL 3.5 - 5 g/dL [place] ALP [Catalytic activity/Vol] 96 U/L 38 - 126 U/L [place] ALT [Catalytic activity/Vol] 26 U/L 13 - 69 U/L [place] Anion gap [Moles/Vol] 11 mmol/L [place], [place] AST [Catalytic activity/Vol] 28 U/L 15 - 46 U/L [place] Bilirubin Ql (U) 0.9 mg/dL 0.2 - 1.3 mg/dL [place] Calcium [Mass/Vol] 10.1 mg/dL 8.4 - 10. 4 mg/dL [place] Chloride [Moles/Vol] 103 mmol/L 98 - 10 7 mmol/L [place] CO2 [Moles/Vol] 28 mmol/L 22 - 30 mmol/L [place] Creatinine [Mass/Vol] 1.41 mg/dL High 0.52 - 1.25 mg/dL [place] EGFR IF NonAfrican [place] 36.0 mL/min >60 [place] Comment on above: Source- MDRD equatio n with creatinine calibration to IDMS(NKDEP) eGFR not recommended for drug dose adjustment GFR/1.73 sq M predicted among blacks MDRD (S/P/Bld) [Vol rate/Area] 43.7 mL/min/{1.73_m2} >60 [place] Glucose [Mass/Vol] 139 mg/dL High 70 - 100 mg/dL [place] Interpretation and review of laboratory results Abnormal [place] Potassium [Moles/Vol] 3.7 mmol/L 3.5 - 5.1 mmol/L [place] Protein [Mass/Vol] 7.5 g/dL 6.3 - 8.2 g/dL [place] Sodium [Moles/Vol] 143 mmol/L 135 - 145 mmol/L [place] Urea nitrogen [Mass/Vol] 36 mg/dL High 7 - 20 mg/dL [place] Test Performed by [facility], [facility] [address] , [address] Creatinine, Random Urineon 0 06-07-2019 Creatinine (U) [Mass/Vol] 23.4 mg/dL No Range [place] Folateon 06-07-2019 Folate 10.4 ng/mL 2.8 - 20 ng/mL [place] Hematologyon 06-07-2019 Basophils/100 WBC (Bld) 0.4 % 0 - 2 % [place] Eosinophils (Bld) [#/Vol] 0.1 10*3/uL 0 - 0.5 10*3/uL [place] Eosinophils/100 WBC (Bld) 1.3 % 1 - 6 % [place] Monocytes (Bld) [#/Vol] 0.5 10*3/uL 0 - 0.8 10*3/uL [place] Platelets (Bld) [#/Vol] 269 10*3/uL 140 - 440 10*3/uL [place] Iron and TIBCon 06-07-2019 Iron [Mass/Vol] 88 ug/dL 37 - 170 ug/dL [place] Sat 23 % 15 - 50 % [place] TIBC 391 ug/dL 261 - 497 ug/dL [place] Test Performed by [facility], [address] , [address] Otheron 06-07-2019 Test Performed by [facility], [facility] [address] , [address] Test Performed by [facility], [facility] [address] , [address] Test Performed by [facility], [address] , [address] Absolute Baso # 0.0 10*3/uL 0 - 0.2 10*3/uL [place] Absolute Neut # 3.7 10*3/uL 1.8 - 7 10*3/uL [place] Erythrocyte distribution width (RBC) [Ratio] 14.4 % 11.5 - 14.5 % [place] Test Performed by [facility], [address] , [place], [place] [address] [place] PTH, [place] 06-07-2019 Interpretation and review of laboratory results Abnormal [place] Pth Intact 100.5 pg/mL High 15 - 63 pg/mL [place] Test Performed by [facility], [address], [place], [place] [address] [place] Protein, urine, randomon Interpretation and review of laboratory results Abnormal [place] Protein (U) [Mass/Vol] 19 mg/dL High No Range Me [place] Protime-INRon 06-07-2019 INR Coag (PPP) [Relative time] 1.0 {INR} [place] Comment on above: Recommended Anticoag ulant Therapy: SEE BELOW ----- INR of 2.0 - 3.0 : - Prophylaxis of Venous Thrombosis (high-risk surgery) - Treatment of Venous Thrombosis - Treatment of Pulmonary Embolism (Includes tissue heart valves, Acute Myocardial Infarction to prevent systemic embolism, Valvular Heart Disease, and Atrial Fibrillation) ----- INR of 2.5 - 3.5 : - Mechanical Prosthetic Valves (high risk) - If oral anticoagulant therapy is used to prevent Myocardial Infarction PT Coag (PPP) [Time] 11 s 9 - 12 s [place], [place] Comment on above: . Renal Function Panelon 06-07 Albumin [Mass/Vol] 4.3 g/dL 3.5 - 5 g/dL [place] Anion gap [Moles/Vol] 11 mmol/L [place], [place] Calcium [Mass/Vol] 10.1 mg/dL 8.4 - 10. 4 mg/dL [place] Chloride [Moles/Vol] 103 mmol/L 98 - 10 7 mmol/L [place] CO2 [Moles/Vol] 27 mmol/L 22 - 30 mmol/L [place] Creatinine [Mass/Vol] 1.38 mg/dL High 0.52 - 1.25 mg/dL [place] EGFR IF NonAfrican Sammar[place] 36.9 mL/min >60 [place] Comment on above: Source- MDRD equatio n with creatinine calibration to IDMS(NKDEP) eGFR not recommended for drug dose adjustment GFR/1.73 sq M predicted among blacks MDRD (S/P/Bld) [Vol rate/Area] 44.8 mL/min/{1.73_m2} >60 [place] Glucose [Mass/Vol] 139 mg/dL High 70 - 100 mg/dL [place] Interpretation and review of laboratory results Abnormal [place] Phosphate [Mass/Vol] 3.6 mg/dL 2.5 - 4 .5 mg/dL [place] Potassium [Moles/Vol] 3.6 mmol/L 3.5 - 5.1 mmol/L [place] Sodium [Moles/Vol] 142 mmol/L 135 - 145 mmol/L [place] Urea nitrogen [Mass/Vol] 37 mg/dL High 7 - 20 mg/dL [place] Test Performed by [facility], [address] , [place], [place] [address] [place] Vitamin B12on 06-07-2019 Cobalamin (Vitamin B12) [Mass/Vol] 313 pg/mL 239 - 931 pg/mL [place] Vitamin D 25 Hydroxyon 06-07 Vit D, 25-Hydroxy 49 ng/mL 30 - 100 ng/mL [place] Comment on above: Therapy is based on measurement of Total 25-OHD with the following classification levels: Less than 20 ng/mL: Indicative of Vit D deficiency 20-30 ng/mL: Suggests Vit D insufficiency Optimal: Greater than or equal to 30 ng/mL Test performed by [employer] Competitive Immunoassay, measuring Total Vitamin D, not individual fractions. Test Performed by [facility], [address] [place], [place] [address] [place] XR CHEST STANDARD (2 VW)on 0 06-04-2019 Patient Name: LYNETTE GIBBS ---Diagnostic Radiology--- Exam Date/Time 06/04/2019 16:18:21 EDT Exam CR Chest PA/LAT Ordering Physician KATSAROS, PETER N Accession Number [id number] CPT4 Codes 00072 () Reason For Exam R04.2, Hemoptysis Report CHEST, PA & LATERAL: INDICATION: Hemoptysis COMPARISON: 07/01/2018 PA and lateral views of the chest were obtained. The heart is normal in size. The mediastinal silhouette is normal. The lungs are clear. Chronic changes are present. There is no pleural thickening. The osseous structures are unremarkable. A left-sided pacer/defibrillator is present. The leads are satisfactory in position. IMPRESSION: Chronic changes. No acute process. Report Dictated on --- Final --- Dictating Physician: DO LANE ALFRED Signed Date and Time: 06/04/2019 10:13 pm Signed by: DO LANE ALFRED Transcribed Date and Time: 06/04/2019 10:14 [facility], [place] [place] Incoming Radiology Results From [facility] - 06/04/2019 10:15 PM EDT Patient Name: LYNETTE ANGULO ---Diagnostic Radiology--- Exam Date/Time 06/04/2019 16:18:21 EDT Exam CR Chest PA/LAT Ordering Physician NORIS YOUNGBLOOD Accession Number [id number] CPT4 Codes 07701 () Reason For Exam R04.2, Hemoptysis Report CHEST, PA & LATERAL: INDICATION: Hemoptysis COMPARISON: 07/01/2018 PA and lateral views of the chest were obtained. The heart is normal in size. The mediastinal silhouette is normal. The lungs are clear. Chronic changes are present. There is no pleural thickening. The osseous structures are unremarkable. A left-sided pacer/defibrillator is present. The leads are satisfactory in position. IMPRESSION: Chronic changes. No acute process. Report Dictated on --- Final --- Dictating Physician: DO LANE ALFRED Signed Date and Time: 06/04/2019 10:13 pm Signed by: DO LANE ALFRED Transcribed Date and Time: 06/04/2019 10:14 [facility], [place] Echo 2D Doppler Coloron 04-30 TRANSTHORACIC ECHOCARDIOGRAM PATIENT: Lynette Angulo STUDY DATE: 05/24/2019 : 1940 AGE: 79 HT/WT: 157.5 cm (62 90.7 kg in) (199.6 lb) GENDER: F BP: 142 / 86 LOCATION: [facility] PATIENT Outpatient [facility] Medical STATUS: Center *ORDERING PHYSICIAN: * Catalina Carpenter *READING PHYSICIAN: * Cayla, *BENCH EXAMINER: * Bon[facility] Newman [facility] INDICATIONS: Systolic heart failure. CONCLUSIONS SUMMARY: 1. Procedure narrative: Image quality was poor. 2. Left ventricle: The cavity size is normal. Wall thickness is mildly increased. Systolic function is at the lower limits of normal by the biplane method of disks. The estimated ejection fraction is 50%. No wall motion abnormalities other than dysynchrony from RV pacing. 3. Right ventricle: The cavity size is normal. Wall thickness is normal. Systolic function is normal. 4. Ventricular septum: Abnormal septal motion due to right ventricular pacing. 5. No significant valvular regurgitation or stenosis. STUDY DATA: Complete transthoracic echocardiogram. Procedure: Image quality was poor. The study was technically limited due to poor acoustic window availability and body habitus. Intravenous imaging enhancement (Definity) was administered to opacify the chamber. Definity lot #: [id number]. M-mode, complete 2D, complete spectral Doppler, and color flow Doppler images were acquired and archived for permanent storage and are available for subsequent review. Study status: Routine. Patient status: Outpatient. FINDINGS LEFT VENTRICLE: Not well visualized. The cavity size is normal. Wall thickness is mildly increased. Systolic function is at the lower limits of normal by the biplane method of disks. The estimated ejection fraction is 50%. There are no regional wall motion abnormalities. RIGHT VENTRICLE: Not well visualized. The cavity size is normal. Wall thickness is normal. Pacer wire noted in the right ventricle. Systolic function is normal. Right ventricular systolic pressure is within the normal range. VENTRICULAR SEPTUM: Abnormal septal motion due to right ventricular pacing. There is no evidence of a ventricular septal defect. LEFT ATRIUM: The atrium is moderately dilated. RIGHT ATRIUM: The atrium is normal in size. Pacer wire noted in right atrium. ATRIAL SEPTUM: Color Doppler shows no evidence of shunt. MITRAL VALVE: Structurally normal valve. Doppler: There is no regurgitation. Peak gradient (D): 5 mm Hg. AORTIC VALVE: Trileaflet. Thickening, consistent with sclerosis. Doppler: There is no stenosis. There is no regurgitation. Dimensionless index: 0.41. Valve area (VTI): 1.2 cm2. Indexed valve area (VTI): 0.6 cm2/m2. Mean gradient (S): 9 mm Hg. Peak gradient (S): 15 mm Hg. Peak velocity (S): 2 m/sec. TRICUSPID VALVE: Structurally normal valve. Doppler: There is trivial, less than 1+ regurgitation. PULMONIC VALVE: Structurally normal valve. Doppler: There is trivial, less than 1+ regurgitation. AORTA: The aorta is normal. PULMONARY ARTERY: Systolic pressure is mildly increased, estimated to be 36 mm Hg. Main pulmonary artery: Normal. PERICARDIUM: There is no pericardial effusion. SYSTEMIC VEINS: Not well visualized. Inferior vena cava: The vessel is normal. The IVC collapses by greater than 50% with inspiration. Measurements Left ventricle Value Reference LV ID, ED 4.6 cm 3.9 - 5.3 LV ID, ES 4.1 cm --------- LV PW thickness, ED (H) 1.1 cm 0.6 - 0.9 LV end-diastolic volume, 1-p A4C (H) 118 ml 56 - 104 LV end-systolic volume, 1-p A4C (H) 76 ml 19 - 49 LV ejection fraction, 2-p (L) 50 % >=55 Ventricular septum Value Reference IVS thickness, ED (H) 1.0 cm 0.6 - 0.9 LVOT Value Reference LVOT ID, A-P 1.9 cm --------- LVOT mean velocity, S 0.6 m/sec --------- LVOT VTI, S 20.5 cm --------- LVOT peak gradient, S 2 mm Hg --------- Stroke volume (SV), LVOT DP 58 ml --------- Stroke index (SV/bsa), LVOT DP 29 ml/m2 --------- Aortic valve Value Reference Aortic valve peak velocity, S 2 m/sec --------- Aortic valve mean velocity, S 1.4 m/sec --------- Aortic valve VTI, S 49.7 cm --------- Aortic mean gradient, S 9 mm Hg --------- Aortic peak gradient, S 15 mm Hg --------- DI 0.41 --------- Aortic valve area, VTI 1.2 cm2 --------- Aortic valve area/bsa, VTI 0.6 cm2/m2 --------- Aorta Value Reference Aortic root ID 2.7 cm <4.2 Aortic root ID, STJ, ED 2.1 cm --------- Ascending aorta ID, A-P 3.0 cm --------- Left atrium Value Reference LA volume/bsa, ES, 2-p 42 ml/m2 --------- Mitral valve Value Reference Mitral E-wave peak velocity 1.1 m/sec --------- Mitral A-wave peak velocity 1.3 m/sec --------- Mitral deceleration time 125 ms --------- Mitral peak gradient, D 5 mm Hg --------- Mitral E/A ratio, peak 0.8 --------- Tricuspid valve Value Reference Tricuspid regurg peak velocity 2.9 m/sec --------- Tricuspid peak RV-RA gradient 33 mm Hg --------- Right atrium Value Reference RA area, ES, A4C (H) 19 cm2 10 - 18 Right ventricle Value Reference RV ID, minor axis, ED, A4C base 2.9 cm 2.4 - 4.2 RV ID, minor axis, ED, A4C mid 2.7 cm 2.0 - 3.5 TAPSE 2.5 cm --------- Legend: (L) and (H) kristina values outside specified reference range. Electronically signed by Joni Kulkarni 05/24/2019 13:09 [facility] Incoming Cardiology Results From [facility] - 05/24/2019 1:10 PM EDT TRANSTHORACIC ECHOCARDIOGRAM PATIENT: Lynette Angulo STUDY DATE: 05/24/2019 : 1940 AGE: 79 HT/WT: 157.5 cm (62 90.7 kg in) (199.6 lb) GENDER: F BP: 142 / 86 LOCATION: [facility] PATIENT Outpatient [facility] Medical STATUS: Center *ORDERING PHYSICIAN: * Catalina Carpenter *READING PHYSICIAN: * Cayla, *BENCH EXAMINER: * Bonnie Newman [facility], Joni REYNOLDS --- INDICATIONS: Systolic heart failure. --- CONCLUSIONS SUMMARY: 1. Procedure narrative: Image quality was poor. 2. Left ventricle: The cavity size is normal. Wall thickness is mildly increased. Systolic function is at the lower limits of normal by the biplane method of disks. The estimated ejection fraction is 50%. No wall motion abnormalities other than dysynchrony from RV pacing. 3. Right ventricle: The cavity size is normal. Wall thickness is normal. Systolic function is normal. 4. Ventricular septum: Abnormal septal motion due to right ventricular pacing. 5. No significant valvular regurgitation or stenosis. --- STUDY DATA: Complete transthoracic echocardiogram. Procedure: Image quality was poor. The study was technically limited due to poor acoustic window availability and body habitus. Intravenous imaging enhancement (Definity) was administered to opacify the chamber. Definity lot #: [id number]. M-mode, complete 2D, complete spectral Doppler, and color flow Doppler images were acquired and archived for permanent storage and are available for subsequent review. Study status: Routine. Patient status: Outpatient. --- FINDINGS LEFT VENTRICLE: Not well visualized. The cavity size is normal. Wall thickness is mildly increased. Systolic function is at the lower limits of normal by the biplane method of disks. The estimated ejection fraction is 50%. There are no regional wall motion abnormalities. RIGHT VENTRICLE: Not well visualized. The cavity size is normal. Wall thickness is normal. Pacer wire noted in the right ventricle. Systolic function is normal. Right ventricular systolic pressure is within the normal range. VENTRICULAR SEPTUM: Abnormal septal motion due to right ventricular pacing. There is no evidence of a ventricular septal defect. LEFT ATRIUM: The atrium is moderately dilated. RIGHT ATRIUM: The atrium is normal in size. Pacer wire noted in right atrium. ATRIAL SEPTUM: Color Doppler shows no evidence of shunt. MITRAL VALVE: Structurally normal valve. Doppler: There is no regurgitation. Peak gradient (D): 5 mm Hg. AORTIC VALVE: Trileaflet. Thickening, consistent with sclerosis. Doppler: There is no stenosis. There is no regurgitation. Dimensionless index: 0.41. Valve area (VTI): 1.2 cm2. Indexed valve area (VTI): 0.6 cm2/m2. Mean gradient (S): 9 mm Hg. Peak gradient (S): 15 mm Hg. Peak velocity (S): 2 m/sec. TRICUSPID VALVE: Structurally normal valve. Doppler: There is trivial, less than 1+ regurgitation. PULMONIC VALVE: Structurally normal valve. Doppler: There is trivial, less than 1+ regurgitation. AORTA: The aorta is normal. PULMONARY ARTERY: Systolic pressure is mildly increased, estimated to be 36 mm Hg. Main pulmonary artery: Normal. PERICARDIUM: There is no pericardial effusion. SYSTEMIC VEINS: Not well visualized. Inferior vena cava: The vessel is normal. The IVC collapses by greater than 50% with inspiration. --- Measurements Left ventricle Value Reference LV ID, ED 4.6 cm 3.9 - 5.3 LV ID, ES 4.1 cm --------- LV PW thickness, ED (H) 1.1 cm 0.6 - 0.9 LV end-diastolic volume, 1-p A4C (H) 118 ml 56 - 104 LV end-systolic volume, 1-p A4C (H) 76 ml 19 - 49 LV ejection fraction, 2-p (L) 50 % >=55 Ventricular septum Value Reference IVS thickness, ED (H) 1.0 cm 0.6 - 0.9 LVOT Value Reference LVOT ID, A-P 1.9 cm --------- LVOT mean velocity, S 0.6 m/sec --------- LVOT VTI, S 20.5 cm --------- LVOT peak gradient, S 2 mm Hg --------- Stroke volume (SV), LVOT DP 58 ml --------- Stroke index (SV/bsa), LVOT DP 29 ml/m2 --------- Aortic valve Value Reference Aortic valve peak velocity, S 2 m/sec --------- Aortic valve mean velocity, S 1.4 m/sec --------- Aortic valve VTI, S 49.7 cm --------- Aortic mean gradient, S 9 mm Hg --------- Aortic peak gradient, S 15 mm Hg --------- DI 0.41 --------- Aortic valve area, VTI 1.2 cm2 --------- Aortic valve area/bsa, VTI 0.6 cm2/m2 --------- Aorta Value Reference Aortic root ID 2.7 cm <4.2 Aortic root ID, STJ, ED 2.1 cm --------- Ascending aorta ID, A-P 3.0 cm --------- Left atrium Value Reference LA volume/bsa, ES, 2-p 42 ml/m2 --------- Mitral valve Value Reference Mitral E-wave peak velocity 1.1 m/sec --------- Mitral A-wave peak velocity 1.3 m/sec --------- Mitral deceleration time 125 ms --------- Mitral peak gradient, D 5 mm Hg --------- Mitral E/A ratio, peak 0.8 --------- Tricuspid valve Value Reference Tricuspid regurg peak velocity 2.9 m/sec --------- Tricuspid peak RV-RA gradient 33 mm Hg --------- Right atrium Value Reference RA area, ES, A4C (H) 19 cm2 10 - 18 Right ventricle Value Reference RV ID, minor axis, ED, A4C base 2.9 cm 2.4 - 4.2 RV ID, minor axis, ED, A4C mid 2.7 cm 2.0 - 3.5 TAPSE 2.5 cm --------- Legend: (L) and (H) kristina values outside specified reference range. Electronically signed by Joni Kulkarni 05/24/2019 13:09 [place] Op Noteon 12-22-2018 Op Note DICT# [id number]. This is the correct dictation. The ohe from earlier is the wrong pt. Please discard Normal [facility] Op Note PATIENT: FANNY ANGULO [facility] [place] ADMISSION DATE: 12/22/2018 SURGERY DATE: 12/22/2018 DATE OF : 1940 AGE: 78 ADMITTING PHYSICIAN: Trung Ng MD ATTENDING PHYSICIAN: Trung Ng MD DICTATING PHYSICIAN: Trung Ng MD OPERATIVE RECORD PROCEDURE: LEFT TOTAL KNEE ARTHROPLASTY. PREOPERATIVE DIAGNOSIS: Degenerative joint disease, left knee. POSTOPERATIVE DIAGNOSIS: Degenerative joint disease, left knee. ANESTHESIA: Spinal. TALLOW PUMPER: Tammy Bruce CST. ESTIMATED BLOOD LOSS: 50 mL. BLOOD GIVEN: None. FLUIDS: Crystalloids. OPERATIVE INDICATIONS: This is a 78-year-old female with end-stage arthritis of her left knee. She has failed conservative care and was admitted for total knee arthroplasty. OPERATIVE FINDINGS: Consists the above history and physical exam. She has [employer] total knee. We used a size 3 posterior stabilized femoral component, size 3 tibial base plate with an 11 mm thick posterior stabilized articular insert and a 23 mm biconvex patella. We used Palacos cement with gentamicin. She tolerated the procedure well and was taken to the recovery room in good condition. DESCRIPTION OF PROCEDURE: The patient was taken to the operative suite where a spinal anesthetic induced satisfactorily. Exam under anesthesia showed that she had a partially correctable varus. We then placed a tourniquet high on her thigh and then prepped and draped the left leg in a sterile fashion. We made a midline incision a fingerbreadth above the patella down to the tibial tubercle. We incised down through subcutaneous tissue to the capsule. We did a medial parapatellar arthrotomy splitting the trivector approach approximately for quad tendon sparing technique. We subluxed the patella laterally and exposed the knee. She had end-stage medial compartment arthritis and patellofemoral disease. We placed drill holes in the femur and tibia for the IM guide. We then irrigated both canals using suction. We then placed the IM alignment augustine into the femur. I placed the distal femoral cutting guide and placed it in correct rotation. We pinned the guide anteriorly. We used the oscillating saw to make the distal femoral cut. We then used the sizing guide in 3 degrees external rotation size 3. I placed the size 3, 4 in [address] We made sure it was in correct rotation. We pinned it. We used the oscillating saw to make the anterior and anterior chamfer cut followed by the posterior and posterior chamfer cut. We then turned our attention to tibia. We placed the IM alignment augustine into the tibia. We used the Profix 3 degrees sloped tibial cutting guide. We placed in correct position. I checked with an external guide. We then pinned the guide. While protecting the collateral ligaments, we cut the proximal tibial cut. We removed the tibial cut. We then removed all the meniscal remnants and osteophytes from the tibia and posterior femur. We checked the flexion and extension gaps and they were equal. We then turned our attention to patella. We placed a 23 mm biconvex patellar cutting guide in place. We drilled for the patellar component. We removed the osteophytes. I placed a 23 mm patellar button in place, which fit well. We then turned our attention back to the tibia and placed the size 3 tibial base plate in correct rotation. We then made sure it was correct rotation and pinned it. We then placed the size 3 distal femoral trial. We then cut for the posterior stabilized box. We trialed the knee with 11 mm insert. It fell into full extension. She had good stability both collaterals in extension. She had good mid flexion stability and can flex easily up to 110. The patella tracked well. We felt the knee was well balanced. We then removed all the trial components. We used the drill and fin punch to prepare the tibia. We punched holes in the proximal tibia to enhance cement fixation. We then thoroughly irrigated with pulsatile lavage. We injected Marcaine, epinephrine, and Toradol throughout the capsule particularly posteriorly. We then dried the surface in preparation for cement. Using Palacos cement with gentamicin, we cemented a size [address] I impacted the size 3 posterior stabilized femoral component into place, brought the knee into extension with the trial insert and compressed cement mantle. Excess cement was removed. We clamped the [address] and removed excess cement. We allowed the cement to harden and trialed the knee again. The 11 mm insert was well balanced and gave us good stability. We then removed the trial insert. I made sure there was no cement posteriorly. We then thoroughly irrigated with pulsatile lavage. We then impacted the 11 mm thick posterior stabilized articular insert. We put the knee through range of motion. It again was stable throughout the motion. We then deflated the tourniquet, stopped bleeding with electrocautery. We irrigated 1 final time and then closed the arthrotomy site with #2 Stratafix in flexion. We used a 0 Vicryl for deep subcutaneous and then a 0 Stratafix for the superficial subcutaneous. A 4-0 Monocryl was used for skin with Dermabond applied. Compressive gauze dressing was applied. She was taken to recovery room in good condition. Diskriter Job ID: [id number] Trung Ng MD DOD:12/22/2018 02:05 P EDI/carl DOT:12/22/2018 02:46 P Job Number: [id number] Document Number: [id number] [facility] Op Note DICT# [id number] [facility] Amb Office-Progress Notes-Pr ovideron 01-01-2018 Protein mass conc Patient: LYNETTE MANN Age: 77 years Sex: Female : 1940 Associated Diagnoses: None Author: AUSTEN GERBER, [facility] Visit Information Visit type: Scheduled follow-up. Accompanied by: No one. Source of history: Self. History limitation: None. Chief Complaint History of Present Illness Lynette Muñoz lost some weight and she feels better. Her HR is better and today it is 60. No dizziness or lightheadedness. No chest pain or dyspnea. Her knees are still bothering her and she had MRI and there is still some cartilage left and she is not ready for replacement. No dizzy spells. Review of Systems Constitutional: Negative. Eye: Negative. Ear/Nose/Mouth/Throat: Negative. Respiratory: No shortness of breath, No cough, No wheezing. Cardiovascular: No chest pain, No palpitations, No peripheral edema. Gastrointestinal: No nausea, No vomiting, No heartburn, No abdominal pain. Genitourinary: Negative. Hematology/Lymphatics: Negative. Endocrine: Negative. Immunologic: Negative. Musculoskeletal: Negative. Integumentary: Negative. Psychiatric: Negative. Health Status Allergies: Allergic Reactions (All)Severity Not DocumentedDarvon- No reactions were documented.Demerol HCl- No reactions were documented.Iodine- No reactions were documented.Janumet- No reactions were documented.Lotensin- No reactions were documented.Penicillins- No reactions were documented.Shellfish- No reactions were documented.Spironolactone- No reactions were documented., Allergies (8) Active ReactionDarvon None DocumentedDemerol HCl None Documentediodine None DocumentedJanumet None DocumentedLotensin None Documentedpenicillins None Documentedshellfish None Documentedspironolactone None Documented Current medications: (Selected) PrescriptionsPrescribedlevo thyroxine 150 mcg (0.15 mg) oral tablet: 150 mcg = 1 tabs, ORAL, DAILY, 90 tabs, 3 Refill(s)pravastatin 20 mg oral tablet: 20 mg, 1 tab(s), ORAL, DAILY, 90 tab(s), 3 Refill(s)Documented MedicationsDocumentedProbio tic Formula (Bacillus Coagulans) oral capsule: 1 caps, ORAL, DAILY, 30 caps, 0 Refill(s)Vitamin D3: ORAL, DAILY, 0 Refill(s)amLODIPine 10 mg oral tablet: 10 mg, 1 tab(s), ORAL, DAILY, 90 tab(s), 0 Refill(s)aspirin 81 mg oral tablet: 81 mg, 1 tab(s), ORAL, DAILY, 90 tab(s), 0 Refill(s)calcitriol 0.25 mcg oral capsule: 0.25 mcg, 1 cap(s), ORAL, DAILY, 90 cap(s), 0 Refill(s)furosemide 40 mg oral tablet: 40 mg, 1 tab(s), ORAL, BID, 180 tabs, 0 Refill(s)glimepiride 1 mg oral tablet: 1 mg, 1 tab(s), ORAL, DAILY, 90 tab(s), 0 Refill(s)omega-3 polyunsaturated fatty acids 1000 mg oral capsule: caps, ORAL, TID, 0 Refill(s) Problem list: Active Problems (3)Diabetes Mellitus W/O Compl Type II or Unspec Controlled Hyperlipidemia Other Unspec Hypertension Benign Histories Past Medical History: No qualifying data available Family History: MotherAllergy.GrandmotherHi gh blood pressure..Diabetes..Cancer Procedure history: DROOPY EYELID REPAIR on 06/29/2014 at 74 Years. Social History Social & Psychosocial UvziutWvwamoy02/04/2014 Risk Assessment: Denies Alcohol GtaQebce50/04/2014 Name: Caffeine Use Comment: Consumes on average 1 soda per day. - 08/02/2014 09:13 - Sweta HubbardSubstance Abuse08/02/2014 Risk Assessment: Denies Substance BuyqaJiyhdrl17/04/2014 Use: Never smoker Comment: Never Smoked Cigarettes. - 08/02/2014 09:13 - Sweta Hubbard. Physical Examination Temperature 97 (15:10)Systolic Blood Pressure No resultDiastolic Blood Pressure No resultPulse 52 (15:10)SpO2 No resultRespiratory Rate No result VS/Measurements Documented vital signs: Blood Pressure ( Systolic 128 mmHg, Diastolic 87 mmHg ) General: Alert and oriented, No acute distress. Eye: Normal conjunctiva, Vision unchanged. HENT: Normal hearing. Neck: Supple, Non-tender, No carotid bruit, No jugular venous distention, No lymphadenopathy. Respiratory: Lungs are clear to auscultation, Breath sounds are equal, Symmetrical chest wall expansion. Cardiovascular: Normal rate, No gallop, Good pulses equal in all extremities, Normal peripheral perfusion, No edema. Bruit: None. Gastrointestinal: Soft, Non-tender, Normal bowel sounds. Genitourinary: No costovertebral angle tenderness. Musculoskeletal: No tenderness, No swelling. Integumentary: Warm, Dry. Neurologic: Alert, Normal sensory, Normal motor function, Cranial Nerves II-XII are grossly intact. Review / Management No qualifying data available Impression and Plan 1.Hypertension2.Diabetes3. LBBB4.Hyperlipidemia5.OA of both knees6.Continue current medications and follow up in four months7.Copy to Dr Dorsey. [facility] Provider Letter - Ambulatory on 01-01-2018 Protein mass conc NORIS YOUNGBLOOD, [facility] [place] [address]RE: LYNETTE MANN - Dear NORIS YOUNGBLOOD This document is confidential and intended solely for the use of the individual or entity to which they are addressed. If you are not the named addressee, please disregard and do not disseminate, distribute or copy this information. If you are not the intended recipient you are notified that any disclosure of this information and its contents are strictly prohibited.If you have any questions about this document, please contact the office.Sincerely,Jamaica Juarez MA [facility] HospitalThe following document(s) were included in the letter:December 31, 2017 15:44:00 EDT - (12/31/2017) Cardiiology Office Notes [facility] Amb Office-Progress Notes-Pr norbert 09-23-2017 Protein mass conc Patient: LYNETTE MANN Age: 77 years Sex: Female : 1940 Associated Diagnoses: None Author: AUSTEN GERBER, [facility] Visit Information Visit type: Scheduled follow-up. Accompanied by: No one. Source of history: Self. History limitation: None. Chief Complaint History of Present Illness This is a follow-up visit for Lynette Muñoz and she seems to be doing fairly well. No dizziness no lightheadedness. Her diabetes seems to be stable. She had some chest discomfort and her ecg shows marked sinus bradycardia and LBBB and her ecg hasnt changed for years. Her chest pain doesnt sound like cardiac. But if she continues to have any more symptoms, I would repeat stress test or consider left heart cath. Review of Systems Constitutional: Negative. Eye: Negative. Ear/Nose/Mouth/Throat: Negative. Respiratory: No shortness of breath, No cough, No wheezing. Cardiovascular: No chest pain, No palpitations, No peripheral edema. Gastrointestinal: No nausea, No vomiting, No heartburn, No abdominal pain. Genitourinary: Negative. Hematology/Lymphatics: Negative. Endocrine: Negative. Immunologic: Negative. Musculoskeletal: Negative. Integumentary: Negative. Psychiatric: Negative. Health Status Allergies: Allergic Reactions (All)Severity Not DocumentedDarvon- No reactions were documented.Demerol HCl- No reactions were documented.Iodine- No reactions were documented.Janumet- No reactions were documented.Lotensin- No reactions were documented.Penicillins- No reactions were documented.Shellfish- No reactions were documented.Spironolactone- No reactions were documented., Allergies (8) Active ReactionDarvon None DocumentedDemerol HCl None Documentediodine None DocumentedJanumet None DocumentedLotensin None Documentedpenicillins None Documentedshellfish None Documentedspironolactone None Documented Current medications: (Selected) PrescriptionsPrescribedprav astatin 20 mg oral tablet: 20 mg, 1 tab(s), ORAL, DAILY, 90 tab(s), 3 Refill(s)Documented MedicationsDocumentedVitami n D3: ORAL, DAILY, 0 Refill(s)amLODIPine 10 mg oral tablet: 10 mg, 1 tab(s), ORAL, DAILY, 90 tab(s), 0 Refill(s)aspirin 81 mg oral tablet: 81 mg, 1 tab(s), ORAL, DAILY, 90 tab(s), 0 Refill(s)calcitriol 0.25 mcg oral capsule: 0.25 mcg, 1 cap(s), ORAL, DAILY, 90 cap(s), 0 Refill(s)furosemide 40 mg oral tablet: 40 mg, 1 tab(s), ORAL, BID, 180 tabs, 0 Refill(s)glimepiride 1 mg oral tablet: 1 mg, 1 tab(s), ORAL, DAILY, 90 tab(s), 0 Refill(s)hydrALAZINE 25 mg oral tablet: 50 mg, 2 tabs, ORAL, TID, 90 tab(s), 0 Refill(s)levothyroxine 125 mcg (0.125 mg) oral tablet: 125 mcg, 1 tab(s), ORAL, DAILY, 90 tab(s), 0 Refill(s)omega-3 polyunsaturated fatty acids 1000 mg oral capsule: caps, ORAL, TID, 0 Refill(s) Problem list: Active Problems (3)Diabetes Mellitus W/O Compl Type II or Unspec Controlled Hyperlipidemia Other Unspec Hypertension Benign Histories Past Medical History: No qualifying data available Family History: MotherAllergy.GrandmotherHi gh blood pressure..Diabetes..Cancer Procedure history: DROOPY EYELID REPAIR on 06/29/2014 at 74 Years. Social History Social & Psychosocial LtsyaeNtrsdel59/04/2014 Risk Assessment: Denies Alcohol XxuOplig11/04/2014 Name: Caffeine Use Comment: Consumes on average 1 soda per day. - 08/02/2014 09:13 - Stevie , SerenaSubstance Abuse08/02/2014 Risk Assessment: Denies Substance XzukuLtkzhyy00/04/2014 Use: Never smoker Comment: Never Smoked Cigarettes. - 08/02/2014 09:13 - Stevie , Sweta. Physical Examination No qualifying data available. Documented vital signs: Blood Pressure: Systolic 132 mmHg, Diastolic 77 mmHg. General: Alert and oriented, No acute distress. Eye: Normal conjunctiva, Vision unchanged. HENT: Normal hearing. Neck: Supple, Non-tender, No carotid bruit, No jugular venous distention, No lymphadenopathy. Respiratory: Lungs are clear to auscultation, Breath sounds are equal, Symmetrical chest wall expansion. Cardiovascular: Normal rate, No gallop, Good pulses equal in all extremities, Normal peripheral perfusion, No edema. Bruit: None. Gastrointestinal: Soft, Non-tender, Normal bowel sounds. Genitourinary: No costovertebral angle tenderness. Musculoskeletal No tenderness. No swelling. Integumentary: Warm, Dry. Neurologic: Alert, Normal sensory, Normal motor function, Cranial Nerves II-XII are grossly intact. Review / Management No qualifying data available Impression and Plan 1.Hypertension2.Diabetes3.A typical chest pain: Sinus bradycardia and LBBB4.Hyperlipidemia5.Would repeat stress test or consider cath if she continues to be symptomatic6.Continue current medications and follow up in four months7.Copy to Dr Dorsey. Normal [facility] Provider Letter - Ambulatory on 09-23-2017 Protein mass conc NORIS HARDINGCALE, [address] [facility] [id number]: LYNETTE MANN - [id number] YOUNGBLOOD This document is confidential and intended solely for the use of the individual or entity to which they are addressed. If you are not the named addressee, please disregard and do not disseminate, distribute or copy this information. If you are not the intended recipient you are notified that any disclosure of this information and its contents are strictly prohibited.If you have any questions about this document, please contact the office.Sincerely,Jamaica Juarez MA [facility] HospitalThe following document(s) were included in the letter:September 18, 2017 11:20:00 EST - (09/18/2017) Cardiiology Office Notes Normal [facility] Basic Panelon 09-20-2017 Anion gap 12 mmol/L Normal 8-20 [facility] Comment on above: Performed By: #### L P8 ####[address] [address] BUN (urea nitrogen) 34 mg/dL High 7-25 [facility] Comment on above: Performed By: #### L P8 ####[address] [address] BUN/Creatinine Ratio 26 mg/mg High 10-20 [facility] Comment on above: Performed By: #### L P8 ####[facility] [place], [place] [address] Calcium 9.2 mg/dL Normal 8.5-10.1 [facility] Comment on above: Performed By: #### L P8 ####[facility] [place], [place] [address] Chloride 104 mmol/L Normal 98-107 [facility] Comment on above: Performed By: #### L P8 ####[facility] [place], [place] [address] CO2 28 mmol/L Normal 21-32 [facility] Comment on above: Performed By: #### L P8 ####[facility] [place] [address] Creatinine 1.32 mg/dL High 0.51-0.95 [facility] Comment on above: Performed By: #### L P8 ####[place] [address] Glucose mass conc 134 mg/dL High 70-99 [facility] Comment on above: Performed By: #### L P8 ####[place] [address] Potassium molar conc 3.5 mmol/L Normal 3.5-5.1 [facility] Comment on above: Performed By: #### L P8 ####[place] [address] Sodium 140 mmol/L Normal 136-145 [facility] Comment on above: Performed By: #### L P8 ####[place] [address] Hemogram/Diffon 09-20-2017 Abs. Baso 0.01 thou/cmm Normal 0.00-0.08 [facility] Comment on above: Performed By: #### L CBCD ####[place] [address] Abs. Travis 0.53 thou/cmm Normal 0.20-1.00 [facility] Comment on above: Performed By: #### L CBCD ####[place] [address] Abs. Neut 3.20 thou/cmm Normal 3.00-5.67 [facility] Comment on above: Performed By: #### L CBCD ####[place] [address] Basophils/100 WBC Auto (Bld) 0.2 % Normal [facility] Comment on above: Performed By: #### L CBCD ####[place] [address] Eosinophils 0.18 thou/cmm Normal 0.00-0.41 [facility] Comment on above: Performed By: #### L CBCD ####[address] [address] Eosinophils/100 leukocytes 3.0 % Normal [facility] Comment on above: Performed By: #### L CBCD ####[place] [address] Erythrocyte distribution width Auto Ratio (RBC) 13.0 % Normal 11.5-15.9 [facility] Comment on above: Performed By: #### L CBCD ####[place] [address] Erythrocytes (RBC) 3.96 mil/cmm Low 4.20-5.40 [facility] Comment on above: Performed By: #### L CBCD ####[place] [address] Hematocrit (HCT) 38.7 % Normal 37.0-47.0 [facility] Comment on above: Performed By: #### L CBCD ####[place] [address] Hemoglobin mass conc (Bld) 12.6 g/dL Normal 12.0-16.0 [facility] Comment on above: Performed By: #### L CBCD ####[place] [address] Lymphocytes 2.08 thou/cmm Normal 1.50-3.65 [facility] Comment on above: Performed By: #### L CBCD ####[place] [address] Lymphocytes/100 leukocytes 34.7 % Normal [facility] Comment on above: Performed By: #### L CBCD ####[place] [address] MCH 31.8 pg High 27.0-31.0 [facility] Comment on above: Performed By: #### L CBCD ####[place] [address] MCHC mass conc (RBC) 32.6 % Normal 32.0-36.0 [facility] Comment on above: Performed By: #### L CBCD ####[address], [place] [address] MCV 97.7 fL Normal 81.0-99.0 [facility] Comment on above: Performed By: #### L CBCD ####[address] [address] Monocytes/100 leukocytes 8.9 % Normal [facility] Comment on above: Performed By: #### L CBCD ####[address] [address] Platelet mean volume (PMV) 9.7 fL Normal 7.1-10.5 [facility] Comment on above: Performed By: #### L CBCD ####[address] [address] Platelets 251 thou/cmm Normal 150-400 [facility] Comment on above: Performed By: #### L CBCD ####[address] [address] Seg Neutrophil 53.2 % Normal [facility] Comment on above: Performed By: #### L CBCD ####[address] [address] WBC (Leukocytes) 6.0 thou/cmm Normal 4.8-10.8 [facility] Comment on above: Performed By: #### L CBCD ####[address] [address] MDRD eGFRon 09-20-2017 eGFR (non-black) 41.51 mL/min/{1.73_m2} Normal > 60mL/min/ 1.73m2 [facility] Comment on above: Result Comment: If t he patient is , multiply the result by 1.210. Performed By: #### L GFR ####[address] [address] TSHon 09-20-2017 Thyroid stimulating hormone (TSH) 6.46 uIU/mL High 0.34-4.82 [facility] Comment on above: Performed By: #### L TSH ####[address] [address] Culture, urine Bacteria identified Cx Nom (U) Culture exhibits no growth. [facility] Work Phone: Vital Signs Date Time Vital Sign Value Performing Clinician [place] 07-21-2025 12:08-0400 Body temperature 97.4 [degF] Dr. Jorge Anderson Work Phone: [facility] 07-21-2025 12:08-0400 Diastolic blood pressure 56 mm[Hg] Dr. Jorge Benavides MD Work Phone: [facility] 07-21-2025 12:08-0400 Heart rate 58 /min Dr. Jorge Anderson Work Phone: [facility] 07-21-2025 12:08-0400 Respiratory rate 16 /min Dr. Jorge Anderson Work Phone: [facility] 07-21-2025 12:08-0400 SaO2% (BldA) [Mass fraction] 98 % Dr. Jorge Benavides MD Work Phone: [facility] 07-21-2025 12:08-0400 Systolic blood pressure 111 mm[Hg] Dr. Jorge Benavides MD Work Phone: [facility] 07-21-2025 09:25-0400 Body height 152.[address] Jorge Anderson Work Phone: [facility] 07-21-2025 09:25-0400 Body mass index (BMI) [Ratio] 39.4 kg/m2 Dr. Jorge Benavides MD Work Phone: [facility] 07-21-2025 09:25-0400 Body weight 91.[address] Jorge Anderson Work Phone: [facility] 07-11-2025 08:47-0400 Body mass index (BMI) [Ratio] 38 kg/m2 Dr. Jorge Benavides MD Work Phone: [facility] 07-11-2025 08:47-0400 Body temperature 97 [degF] Dr. Jorge Anderson Work Phone: [facility] 07-11-2025 08:47-0400 Body weight 88.[address] Jorge Anderson Work Phone: [facility] 07-11-2025 08:47-0400 Diastolic blood pressure 71 mm[Hg] Dr. Jorge Benavides MD Work Phone: [facility] 07-11-2025 08:47-0400 Heart rate 63 /min Dr. Jorge Anderson Work Phone: [facility] 07-11-2025 08:47-0400 Respiratory rate 16 /min Dr. Jorge Anderson Work Phone: [facility] 07-11-2025 08:47-0400 SaO2% (BldA) [Mass fraction] 95 % Dr. Jorge Benavides MD Work Phone: [facility] 07-11-2025 08:47-0400 Systolic blood pressure 119 mm[Hg] Dr. Jorge Benavides MD Work Phone: [facility] 07-08-2025 14:51-0400 Body mass index (BMI) [Ratio] 39.8 kg/m2 Dr. Jorge Benavides MD Work Phone: [facility] 07-08-2025 14:51-0400 Body temperature 97.2 [degF] Dr. Jorge Anderson Work Phone: [facility] 07-08-2025 14:51-0400 Body weight 92.[address] Jorge Anderson Work Phone: [facility] 07-08-2025 14:51-0400 Diastolic blood pressure 68 mm[Hg] Dr. Jorge Benavides MD Work Phone: [facility] 07-08-2025 14:51-0400 Heart rate 67 /min Dr. Jorge Anderson Work Phone: [facility] 07-08-2025 14:51-0400 Respiratory rate 16 /min Dr. Jorge Anderson Work Phone: [facility] 07-08-2025 14:51-0400 SaO2% (BldA) [Mass fraction] 97 % Dr. Jorge Benavides MD Work Phone: [facility] 07-08-2025 14:51-0400 Systolic blood pressure 126 mm[Hg] Dr. Jorge Benavides MD Work Phone: [facility] 07-08-2025 08:42-0400 Body temperature 97.7 [degF] Dr. Jorge Anderson Work Phone: [facility] 07-08-2025 08:42-0400 Diastolic blood pressure 78 mm[Hg] Dr. Jorge Benavides MD Work Phone: [facility] 07-08-2025 08:42-0400 Heart rate 58 /min Dr. Jorge Anderson Work Phone: [facility] 07-08-2025 08:42-0400 Respiratory rate 12 /min Dr. Jorge Anderson Work Phone: [facility] 07-08-2025 08:42-0400 SaO2% (BldA) [Mass fraction] 99 % Dr. Jorge Benavides MD Work Phone: [facility] 07-08-2025 08:42-0400 Systolic blood pressure 115 mm[Hg] Dr. Jorge Benavides MD Work Phone: [facility] 07-04-2025 14:01-0400 Body height 152.[address] Jorge Anderson Work Phone: [facility] 07-04-2025 14:01-0400 Body temperature 97.1 [degF] Dr. Jorge Anderson Work Phone: [facility] 07-04-2025 14:01-0400 Diastolic blood pressure 78 mm[Hg] Dr. Jorge Benavides MD Work Phone: [facility] 07-04-2025 14:01-0400 Heart rate 65 /min Dr. Jorge Anderson Work Phone: [facility] 07-04-2025 14:01-0400 Respiratory rate 18 /min Dr. Jorge Anderson Work Phone: [facility] 07-04-2025 14:01-0400 SaO2% (BldA) [Mass fraction] 95 % Dr. Jorge Benavides MD Work Phone: [facility] 07-04-2025 14:01-0400 Systolic blood pressure 120 mm[Hg] Dr. Jorge Benavides MD Work Phone: [facility] 06-21-2025 11:59-0400 Body height 152.[address] Jorge Anderson Work Phone: [facility] 06-21-2025 11:59-0400 Body mass index (BMI) [Ratio] 38 kg/m2 Dr. Jorge Benavides MD Work Phone: [facility] 06-21-2025 11:59-0400 Body weight 88.[address] Jorge Anderson Work Phone: [facility] 06-21-2025 11:59-0400 Diastolic blood pressure 68 mm[Hg] Dr. Jorge Benavides MD Work Phone: [facility] 06-21-2025 11:59-0400 Heart rate 61 /min Dr. Jorge Anderson Work Phone: [facility] 06-21-2025 11:59-0400 Systolic blood pressure 132 mm[Hg] Dr. Jorge Benavides MD Work Phone: [facility] 06-16-2025 11:38-0400 Body height 152.[address] Jorge Anderson Work Phone: [facility] 06-16-2025 11:38-0400 Body mass index (BMI) [Ratio] 38 kg/m2 Dr. Jorge Benavides MD Work Phone: [facility] 06-16-2025 11:38-0400 Body temperature 97.7 [degF] Dr. Jorge Anderson Work Phone: [facility] 06-16-2025 11:38-0400 Body weight 88.[address] Jorge Anderson Work Phone: [facility] 06-16-2025 11:38-0400 Diastolic blood pressure 78 mm[Hg] Dr. Jorge Benavides MD Work Phone: [facility] 06-16-2025 11:38-0400 Heart rate 55 /min Dr. Jorge Anderson Work Phone: [facility] 06-16-2025 11:38-0400 Respiratory rate 18 /min Dr. Jorge Anderson Work Phone: [facility] 06-16-2025 11:38-0400 SaO2% (BldA) [Mass fraction] 99 % Dr. Jorge Benavides MD Work Phone: [facility] 06-16-2025 11:38-0400 Systolic blood pressure 110 mm[Hg] Dr. Jorge Benavides MD Work Phone: [facility] 05-24-2025 09:19-0400 Body mass index (BMI) [Ratio] 39.8 kg/m2 Dr. Jorge Benavides MD Work Phone: [facility] 05-24-2025 09:19-0400 Body temperature 96.9 [degF] Dr. Jorge Anderson Work Phone: [facility] 05-24-2025 09:19-0400 Body weight 92.[address] Jorge Anderson Work Phone: [facility] 05-24-2025 09:19-0400 Diastolic blood pressure 70 mm[Hg] Dr. Jorge Benavides MD Work Phone: [facility] 05-24-2025 09:19-0400 Heart rate 59 /min Dr. Jorge Anderson Work Phone: [facility] 05-24-2025 09:19-0400 Respiratory rate 18 /min Dr. Jorge Anderson Work Phone: [facility] 05-24-2025 09:19-0400 SaO2% (BldA) [Mass fraction] 97 % Dr. Jorge Benavides MD Work Phone: [facility] 05-24-2025 09:19-0400 Systolic blood pressure 148 mm[Hg] Dr. Jorge Benavides MD Work Phone: [facility] 05-17-2025 13:33-0400 Body height 152.[address] Jorge Anderson Work Phone: [facility] 05-17-2025 13:33-0400 Body mass index (BMI) [Ratio] 39.8 kg/m2 Dr. Jorge eBnavides MD Work Phone: [facility] 05-17-2025 13:33-0400 Body temperature 97 [degF] Dr. Jorge Anderson Work Phone: [facility] 05-17-2025 13:33-0400 Body weight 92.[address] Jorge Anderson Work Phone: [facility] 05-17-2025 13:33-0400 Diastolic blood pressure 66 mm[Hg] Dr. Jorge Benavides MD Work Phone: [facility] 05-17-2025 13:33-0400 Heart rate 85 /min Dr. Jorge Anderson Work Phone: [facility] 05-17-2025 13:33-0400 Respiratory rate 18 /min Dr. Jorge Anderson Work Phone: [facility] 05-17-2025 13:33-0400 SaO2% (BldA) [Mass fraction] 96 % Dr. Jorge Benavides MD Work Phone: [facility] 05-17-2025 13:33-0400 Systolic blood pressure 118 mm[Hg] Dr. Jorge Benavides MD Work Phone: [facility] 05-17-2025 11:31-0400 Body height 152.[address] Jorge Anderson Work Phone: [facility] 05-17-2025 11:31-0400 Body mass index (BMI) [Ratio] 40.2 kg/m2 Dr. Jorge Benavides MD Work Phone: [facility] 05-17-2025 11:31-0400 Body weight 93.[address] Jorge Anderson Work Phone: [facility] 05-17-2025 11:31-0400 Diastolic blood pressure 90 mm[Hg] Dr. Jorge Benavides MD Work Phone: [facility] 05-17-2025 11:31-0400 Heart rate 60 /min Dr. Jorge Anderson Work Phone: [facility] 05-17-2025 11:31-0400 Systolic blood pressure 132 mm[Hg] Dr. [facility] Benavides MD [facility] [facility] 05-13-2025 11:56-0400 Diastolic blood pressure 70 mm[Hg] Dr. Jorge Benavides MD Work Phone: [facility] 05-13-2025 11:56-0400 Systolic blood pressure 124 mm[Hg] Dr. Jorge Benavides MD Work Phone: [facility] 05-13-2025 08:50-0400 Body height 152.[address] Jorge Anderson Work Phone: [facility] 05-13-2025 08:50-0400 Body mass index (BMI) [Ratio] 40.2 kg/m2 Dr. Jorge Benavides MD Work Phone: [facility] 05-13-2025 08:50-0400 Body weight 93.[address] Jorge Anderson Work Phone: [facility] 05-13-2025 08:50-0400 Heart rate 57 /min Dr. Jorge Anderson Work Phone: [facility] 05-13-2025 08:50-0400 Respiratory rate 16 /min Dr. Jorge Anderson Work Phone: [facility] 05-13-2025 08:50-0400 SaO2% (BldA) [Mass fraction] 96 % Dr. Jorge Benavides MD Work Phone: [facility] 04-12-2025 11:03-0400 Body height 152.[address] Jorge Anderson Work Phone: [facility] 04-12-2025 11:03-0400 Body mass index (BMI) [Ratio] 39.3 kg/m2 Dr. Jorge Benavides MD Work Phone: [facility] 04-12-2025 11:03-0400 Body temperature 98.1 [degF] Dr. Jorge Anderson Work Phone: [facility] 04-12-2025 11:03-0400 Body weight 91.[address] Jorge Anderson Work Phone: [facility] 04-12-2025 11:03-0400 Diastolic blood pressure 74 mm[Hg] Dr. Jorge Benavides MD Work Phone: [facility] 04-12-2025 11:03-0400 Heart rate 68 /min Dr. Jorge Anderson Work Phone: [facility] 04-12-2025 11:03-0400 Respiratory rate 16 /min Dr. Jorge Anderson Work Phone: [facility] 04-12-2025 11:03-0400 SaO2% (BldA) [Mass fraction] 96 % Dr. Jorge Benavides MD Work Phone: [facility] 04-12-2025 11:03-0400 Systolic blood pressure 140 mm[Hg] Dr. Jorge Benavides MD Work Phone: [facility] 02-24-2025 15:16-0400 Body mass index (BMI) [Ratio] 37.85 kg/m2 Sheba Somers MD Work Phone: [facility] [place] 02-24-2025 15:16-0400 Body weight 87.91 kg Sheba Somers MD Work Phone: [facility] [place] 02-24-2025 15:16-0400 Diastolic blood pressure 64 mm[Hg] Sheba Somers MD Work Phone: [facility] [place] 02-24-2025 15:16-0400 Heart rate 57 /min Sheba Somers MD Work Phone: [facility] [place] 02-24-2025 15:16-0400 Respiratory rate 18 /min Sheba Somers MD Work Phone: [facility] [place] 02-24-2025 15:16-0400 SaO2% (BldA) [Mass fraction] 94 % Sheba Somers MD Work Phone: [facility] [place] 02-24-2025 15:16-0400 Systolic blood pressure 136 mm[Hg] Sheba Somers MD Work Phone: [facility] [place] 02-22-2025 16:00-0400 Diastolic blood pressure 82 mm[Hg] Dr. Jorge Benavides MD Work Phone: [facility] 02-22-2025 16:00-0400 Heart rate 65 /min Dr. Jorge Anderson Work Phone: [facility] 02-22-2025 16:00-0400 Respiratory rate 20 /min Dr. Jorge Anderson Work Phone: [facility] 02-22-2025 16:00-0400 SaO2% (BldA) [Mass fraction] 97 % Dr. Jorge Benavides MD Work Phone: [facility] 02-22-2025 16:00-0400 Systolic blood pressure 132 mm[Hg] Dr. Jorge Benavides MD Work Phone: [facility] 02-22-2025 14:09-0400 Body temperature 98.2 [degF] Dr. Jorge Anderson Work Phone: [facility] 02-22-2025 14:08-0400 Body mass index (BMI) [Ratio] 40.4 kg/m2 Dr. Jorge Benavides MD Work Phone: [facility] 02-22-2025 14:08-0400 Body weight [address] Jorge Anderson Work Phone: [facility] 02-22-2025 12:59-0400 Body height 152.[address] Jorge Andersno Work Phone: [facility] 02-07-2025 09:51-0400 Body height 152.4 cm Domenic Serrano APRN.CNP Work Phone: [facility] [place] 02-07-2025 09:51-0400 Body mass index (BMI) [Ratio] 38.47 kg/m2 Domenic Serrano APRN.CNP Work Phone: [facility] [place] 02-07-2025 09:51-0400 Body weight 89.36 kg Domenic Serrano APRN.REFINERY PIPELINE OPERATOR Work Phone: [facility] [place] 02-07-2025 09:51-0400 Diastolic blood pressure 57 mm[Hg] Domenic Serrano APRN.REFINERY PIPELINE OPERATOR Work Phone: [facility] [place] 02-07-2025 09:51-0400 Heart rate 58 /min Domenic Serrano WINDER FIXER.REFINERY PIPELINE OPERATOR Work Phone: [facility] [place] 02-07-2025 09:51-0400 SaO2% (BldA) [Mass fraction] 97 % Domenic Serrano WINDER FIXER.REFINERY PIPELINE OPERATOR Work Phone: [facility] [place] 02-07-2025 09:51-0400 Systolic blood pressure 137 mm[Hg] Domenic Serrano APRN.REFINERY PIPELINE OPERATOR Work Phone: [facility] [place] 2025 14:09-0400 Body height 152.[address] Jorge Anderson Work Phone: [facility] 2025 13:48-0400 Body mass index (BMI) [Ratio] 40 kg/m2 Dr. Jorge Benavides MD Work Phone: [facility] 2025 13:48-0400 Body temperature 97.7 [degF] Dr. Jorge Anderson Work Phone: [facility] 2025 13:48-0400 Body weight 92.[address] Jorge Anderson Work Phone: [facility] 2025 13:48-0400 Diastolic blood pressure 76 mm[Hg] Dr. Jorge Benavides MD Work Phone: [facility] 2025 13:48-0400 Heart rate 61 /min Dr. Jorge Anderson Work Phone: [facility] 2025 13:48-0400 Respiratory rate 18 /min Dr. Jorge Anderson Work Phone: [facility] 2025 13:48-0400 SaO2% (BldA) [Mass fraction] 97 % Dr. Jorge Benavides MD Work Phone: [facility] 2025 13:48-0400 Systolic blood pressure 137 mm[Hg] Dr. Jorge Benavides MD Work Phone: [facility] 01-04-2025 11:20-0400 Body mass index (BMI) [Ratio] 40.17 kg/m2 Mera Hudsno WINDER FIXER.REFINERY PIPELINE OPERATOR Work Phone: [facility] [place] 01-04-2025 11:20-0400 Body weight 93.3 kg Mera Hudson WINDER FIXER.REFINERY PIPELINE OPERATOR Work Phone: [facility] [place] 01-04-2025 11:20-0400 Diastolic blood pressure 70 mm[Hg] Mera Hudson WINDER FIXER.REFINERY PIPELINE OPERATOR Work Phone: [facility] [place] 01-04-2025 11:20-0400 Heart rate 60 /min Mera Hudson WINDER FIXER.REFINERY PIPELINE OPERATOR Work Phone: [facility] [place] 01-04-2025 11:20-0400 SaO2% (BldA) [Mass fraction] 99 % Mera Hudosn WINDER FIXER.REFINERY PIPELINE OPERATOR Work Phone: [facility] [place] 01-04-2025 11:20-0400 Systolic blood pressure 128 mm[Hg] Mera Hudson WINDER FIXER.REFINERY PIPELINE OPERATOR Work Phone: [facility] [place] 12-09-2024 10:36-0400 Body height 152.[address] Jorge Anderson Work Phone: [facility] 12-09-2024 10:36-0400 Body mass index (BMI) [Ratio] 38 kg/m2 Dr. Jorge Benavides MD Work Phone: [facility] 12-09-2024 10:36-0400 Body temperature 97.5 [degF] Dr. Jorge Anderson Work Phone: [facility] 12-09-2024 10:36-0400 Body weight 88.[address] Jorge Anderson Work Phone: [facility] 12-09-2024 10:36-0400 Diastolic blood pressure 80 mm[Hg] Dr. Jorge Benavides MD Work Phone: [facility] 12-09-2024 10:36-0400 Heart rate 60 /min Dr. Jorge Anderson Work Phone: [facility] 12-09-2024 10:36-0400 Respiratory rate 16 /min Dr. Jorge Anderson Work Phone: [facility] 12-09-2024 10:36-0400 SaO2% (BldA) [Mass fraction] 95 % Dr. Jorge Benavides MD Work Phone: [facility] 12-09-2024 10:36-0400 Systolic blood pressure 130 mm[Hg] Dr. Jorge Benavides MD Work Phone: [facility] 12-01-2024 13:04-0500 Body height 152.[address] Jorge Anderson Work Phone: [facility] 12-01-2024 13:00-0500 Body weight 89.[address] Jorge Anderson Work Phone: [facility] 11-17-2024 18:25-0500 Body temperature 99 [degF] Dr. Jorge Anderson Work Phone: [facility] 11-17-2024 18:25-0500 Diastolic blood pressure 46 mm[Hg] Dr. Jorge Benavides MD Work Phone: [facility] 11-17-2024 18:25-0500 Heart rate 55 /min Dr. Jorge Anderson Work Phone: [facility] 11-17-2024 18:25-0500 Respiratory rate 18 /min Dr. Jorge Anderson Work Phone: [facility] 11-17-2024 18:25-0500 SaO2% (BldA) [Mass fraction] 97 % Dr. Jorge Benavides MD Work Phone: [facility] 11-17-2024 18:25-0500 Systolic blood pressure 111 mm[Hg] Dr. Jorge Benavides MD Work Phone: [facility] 11-17-2024 12:41-0500 Body weight 88.[address] Jorge Anderson Work Phone: [facility] 11-17-2024 01:03-0500 Body mass index (BMI) [Ratio] 38.2 kg/m2 Dr. Jorge Benavides MD Work Phone: [facility] 11-10-2024 10:36-0500 Body height 152.4 cm Domenic Zach WINDER FIXER.REFINERY PIPELINE OPERATOR Work Phone: [facility] [place] 11-10-2024 10:36-0500 Body mass index (BMI) [Ratio] 37.24 kg/m2 Domenic Zach WINDER FIXER.REFINERY PIPELINE OPERATOR Work Phone: [facility] [place] 11-10-2024 10:36-0500 Body weight 86.5 kg Domenic Zach WINDER FIXER.REFINERY PIPELINE OPERATOR Work Phone: [facility] [place] 11-10-2024 10:36-0500 Diastolic blood pressure 46 mm[Hg] Domenic Zach WINDER FIXER.REFINERY PIPELINE OPERATOR Work Phone: [facility] [place] 11-10-2024 10:36-0500 Heart rate 74 /min Domenic Zach WINDER FIXER.REFINERY PIPELINE OPERATOR Work Phone: [facility] [place] 11-10-2024 10:36-0500 Systolic blood pressure 124 mm[Hg] Domenic Zach WINDER FIXER.REFINERY PIPELINE OPERATOR Work Phone: [facility] [place] 02-11-2025 10:49-0500 Body height 152.4 cm Razia Clements MD Work Phone: [facility] [place] 11-09-2024 10:49-0500 Body mass index (BMI) [Ratio] 37.54 kg/m2 Razia Clements MD Work Phone: [facility] [place] 11-09-2024 10:49-0500 Body weight 87.2 kg Razia Clements MD Work Phone: [facility] [place] 11-09-2024 10:49-0500 Diastolic blood pressure 68 mm[Hg] Razia Clements MD Work Phone: [facility] [place] 11-09-2024 10:49-0500 Heart rate 60 /min Razia Clements MD Work Phone: [facility] [place] 11-09-2024 10:49-0500 SaO2% (BldA) [Mass fraction] 99 % Razia Clements MD Work Phone: [facility] [place] 11-09-2024 10:49-0500 Systolic blood pressure 130 mm[Hg] Razia Clements MD Work Phone: [facility] [place] 10-12-2024 11:01-0500 Body mass index (BMI) [Ratio] 35.4 kg/m2 Dr. Jorge Benavides MD Work Phone: [facility] 10-12-2024 11:01-0500 Body temperature 97.6 [degF] Dr. Jorge Anderson Work Phone: [facility] 10-12-2024 11:01-0500 Body weight 87.[address] Jorge Anderson Work Phone: [facility] 10-12-2024 11:01-0500 Diastolic blood pressure 74 mm[Hg] Dr. Jorge Benavides MD Work Phone: [facility] 10-12-2024 11:01-0500 Heart rate 61 /min Dr. Jorge Anderson Work Phone: [facility] 10-12-2024 11:01-0500 Respiratory rate 16 /min Dr. Jorge Anderson Work Phone: [facility] 10-12-2024 11:01-0500 SaO2% (BldA) [Mass fraction] 99 % Dr. Jorge Benavides MD Work Phone: [facility] 10-12-2024 11:01-0500 Systolic blood pressure 126 mm[Hg] Dr. Jorge Benavides MD Work Phone: [facility] 08-23-2024 11:22-0500 Body mass index (BMI) [Ratio] 35.6 kg/m2 Dr. Jorge Benavides MD Work Phone: [facility] 08-23-2024 11:22-0500 Body temperature 97.9 [degF] Dr. Jorge Anderson Work Phone: [facility] 08-23-2024 11:22-0500 Body weight 88.[address] Jorge Anderson Work Phone: [facility] 08-23-2024 11:22-0500 Diastolic blood pressure 80 mm[Hg] Dr. Jorge Benavides MD Work Phone: [facility] 08-23-2024 11:22-0500 Heart rate 50 /min Dr. Jorge Anderson Work Phone: [facility] 08-23-2024 11:22-0500 Respiratory rate 16 /min Dr. Jorge Anderson Work Phone: [facility] 08-23-2024 11:22-0500 SaO2% (BldA) [Mass fraction] 99 % Dr. Jorge Benavides MD Work Phone: [facility] 08-23-2024 11:22-0500 Systolic blood pressure 122 mm[Hg] Dr. Jorge Benavides MD Work Phone: [facility] 06-24-2024 09:52-0400 Body mass index (BMI) [Ratio] 37.29 kg/m2 Xiao Suazo MD Work Phone: [facility] [place] 06-24-2024 09:52-0400 Body weight 86.6 kg Xiao Suazo MD Work Phone: [facility] [place] 06-24-2024 09:52-0400 Diastolic blood pressure 66 mm[Hg] Xiao Suazo MD Work Phone: [facility] [place] 06-24-2024 09:52-0400 Heart rate 58 /min Xiao Suazo MD Work Phone: [facility] [place] 06-24-2024 09:52-0400 SaO2% (BldA) [Mass fraction] 100 % Xiao Suazo MD Work Phone: [facility] [place] 06-24-2024 09:52-0400 Systolic blood pressure 124 mm[Hg] Xiao Suazo MD Work Phone: [facility] [place] 05-28-2024 14:37-0400 Body mass index (BMI) [Ratio] 36.6 kg/m2 Stephania Espinoza APRN.REFINERY PIPELINE OPERATOR Work Phone: [facility] [place] 05-28-2024 14:37-0400 Body temperature 97.81 [degF] Stephania Espinoza WINDER FIXER.REFINERY PIPELINE OPERATOR Work Phone: [facility] [place] 05-28-2024 14:37-0400 Body weight 85 kg Stephania Alexis WINDER FIXER.REFINERY PIPELINE OPERATOR Work Phone: [facility] [place] 05-28-2024 14:37-0400 Diastolic blood pressure 60 mm[Hg] Stephania Alexis WINDER FIXER.REFINERY PIPELINE OPERATOR Work Phone: [facility] [place] 05-28-2024 14:37-0400 Heart rate 70 /min Stephania Espinoza WINDER FIXER.REFINERY PIPELINE OPERATOR Work Phone: [facility] [place] 05-28-2024 14:37-0400 Respiratory rate 20 /min Stephania Alexis WINDER FIXER.REFINERY PIPELINE OPERATOR Work Phone: [facility] [place] 05-28-2024 14:37-0400 SaO2% (BldA) [Mass fraction] 98 % Stephania Carbajalk WINDER FIXER.REFINERY PIPELINE OPERATOR Work Phone: [facility] [place] 05-28-2024 14:37-0400 Systolic blood pressure 122 mm[Hg] Stephania Espinoza APRN.REFINERY PIPELINE OPERATOR Work Phone: [facility] [place] 05-11-2024 11:18-0400 Body height 152.4 cm Sandy Shetty DO Work Phone: [facility] [place] 05-11-2024 11:18-0400 Body mass index (BMI) [Ratio] 36.43 kg/m2 Sandy Shetty DO Work Phone: [facility] [place] 05-11-2024 11:18-0400 Body weight 84.6 kg Sandy Shetty DO Work Phone: [facility] [place] 05-11-2024 11:18-0400 Diastolic blood pressure 62 mm[Hg] Sandy Shetty DO Work Phone: [facility] [place] 05-11-2024 11:18-0400 Heart rate 64 /min Sandy Shetty DO Work Phone: [facility] [place] 05-11-2024 11:18-0400 SaO2% (BldA) [Mass fraction] 100 % Sandy Shetty DO Work Phone: [facility] [place] 05-11-2024 11:18-0400 Systolic blood pressure 120 mm[Hg] Sandy Shetty DO Work Phone: [facility] [place] 04-16-2024 10:53-0400 Body height 152.4 cm Vicky Bartone PA-C Work Phone: [facility] [place] 04-16-2024 10:53-0400 Body mass index (BMI) [Ratio] 37.11 kg/m2 Vicky Bartone PA-C Work Phone: [facility] [place] 04-16-2024 10:53-0400 Body weight 86.18 kg Vicky Bartone PA-C Work Phone: [facility] [place] 04-16-2024 10:53-0400 Diastolic blood pressure 59 mm[Hg] Vicky Bartone PA-C Work Phone: [facility] [place] 04-16-2024 10:53-0400 Heart rate 64 /min Vicky Bartone PA-C Work Phone: [facility] [place] 04-16-2024 10:53-0400 Systolic blood pressure 129 mm[Hg] Vicky Bartone PA-C Work Phone: [facility] [place] 02-18-2024 10:31-0400 Body height 157.5 cm Deepak Tomic WINDER FIXER.REFINERY PIPELINE OPERATOR Work Phone: [facility] [place] 02-18-2024 10:31-0400 Body mass index (BMI) [Ratio] 36.02 kg/m2 Deepak Tomic WINDER FIXER.REFINERY PIPELINE OPERATOR Work Phone: [facility] [place] 02-18-2024 10:31-0400 Body weight 89.36 kg Deepak Tomic WINDER FIXER.REFINERY PIPELINE OPERATOR Work Phone: [facility] [place] 02-18-2024 10:31-0400 Diastolic blood pressure 62 mm[Hg] Deepak Tomic WINDER FIXER.REFINERY PIPELINE OPERATOR Work Phone: [facility] [place] 02-18-2024 10:31-0400 Heart rate 60 /min Deepak Tomic WINDER FIXER.REFINERY PIPELINE OPERATOR Work Phone: [facility] [place] 02-18-2024 10:31-0400 Systolic blood pressure 106 mm[Hg] Deepak Tomic WINDER FIXER.REFINERY PIPELINE OPERATOR Work Phone: [facility] [place] 02-18-2024 09:48-0400 Body mass index (BMI) [Ratio] 36.02 kg/m2 Lynette Aziza WINDER FIXER.REFINERY PIPELINE OPERATOR Work Phone: [facility] [place] 02-18-2024 09:48-0400 Body weight 89.36 kg Lynette Aziza WINDER FIXER.REFINERY PIPELINE OPERATOR Work Phone: [facility] [place] 02-18-2024 09:48-0400 Diastolic blood pressure 60 mm[Hg] Lynette Aziza WINDER FIXER.REFINERY PIPELINE OPERATOR Work Phone: [facility] [place] 02-18-2024 09:48-0400 Heart rate 62 /min Lynette Ervin WINDER FIXER.REFINERY PIPELINE OPERATOR Work Phone: [facility] [place] 02-18-2024 09:48-0400 SaO2% (BldA) [Mass fraction] 99 % Lynette Ervin WINDER FIXER.REFINERY PIPELINE OPERATOR Work Phone: [facility] [place] 02-18-2024 09:48-0400 Systolic blood pressure 110 mm[Hg] Lynette Ervin WINDER FIXER.REFINERY PIPELINE OPERATOR Work Phone: [facility] [place] 02-05-2024 13:38-0400 Body height 157.[address] [facility] 02-05-2024 13:38-0400 Body mass index (BMI) [Ratio] 35.29 kg/m2 [facility] 02-05-2024 13:38-0400 Body weight 87.[address] [facility] 02-05-2024 13:38-0400 Diastolic blood pressure 81 mm[Hg] [facility] 02-05-2024 13:38-0400 Heart rate 70 /min [facility] 02-05-2024 13:38-0400 SaO2% (BldA) [Mass fraction] 96 % [facility] 02-05-2024 13:38-0400 Systolic blood pressure 142 mm[Hg] [facility] 02-05-2024 09:23-0400 Body height 157.5 cm Xiao Suazo MD Work Phone: [facility] [place] 02-05-2024 09:23-0400 Body mass index (BMI) [Ratio] 35.67 kg/m2 Xiao Suazo MD Work Phone: [facility] [place] 02-05-2024 09:23-0400 Body weight 88.45 kg Xiao Suazo MD Work Phone: [facility] [place] 02-05-2024 09:23-0400 Diastolic blood pressure 60 mm[Hg] Xiao Suazo MD Work Phone: [facility] [place] 02-05-2024 09:23-0400 Heart rate 65 /min Xiao Suazo MD Work Phone: [facility] [place] 02-05-2024 09:23-0400 Systolic blood pressure 130 mm[Hg] Xiao Suazo MD Work Phone: [facility] [place] 01-20-2024 12:09-0400 Body mass index (BMI) [Ratio] 34.37 kg/m2 Mario Aurin WINDER FIXER.REFINERY PIPELINE OPERATOR Work Phone: [facility] [place] 01-20-2024 12:09-0400 Body weight 88 kg Mario Aurin WINDER FIXER.REFINERY PIPELINE OPERATOR Work Phone: [facility] [place] 01-20-2024 12:09-0400 Diastolic blood pressure 58 mm[Hg] Mario Aurin WINDER FIXER.REFINERY PIPELINE OPERATOR Work Phone: [facility] [place] 01-20-2024 12:09-0400 Heart rate 71 /min Mario Aurin WINDER FIXER.REFINERY PIPELINE OPERATOR Work Phone: [facility] [place] 01-20-2024 12:09-0400 SaO2% (BldA) [Mass fraction] 99 % Mario Aurin WINDER FIXER.REFINERY PIPELINE OPERATOR Work Phone: [facility] [place] 01-20-2024 12:09-0400 Systolic blood pressure 135 mm[Hg] Mario Aurin WINDER FIXER.REFINERY PIPELINE OPERATOR Work Phone: [facility] [place] 11-21-2023 20:25-0500 Body temperature 97.1 [degF] Dr. Jorge Benavides Work Phone: [facility] 11-21-2023 20:25-0500 Diastolic blood pressure 74 mm[Hg] Dr. Jorge Benavides Work Phone: [facility] 11-21-2023 20:25-0500 Heart rate 55 /min Dr. Jorge Benavides Work Phone: [facility] 11-21-2023 20:25-0500 Respiratory rate 16 /min Dr. Jorge Benavides Work Phone: [facility] 11-21-2023 20:25-0500 SaO2% (BldA) [Mass fraction] 99 % Dr. Jorge Benavides Work Phone: [facility] 11-21-2023 20:25-0500 Systolic blood pressure 140 mm[Hg] Dr. Jorge Benavides Work Phone: [facility] 11-21-2023 17:48-0500 Body height 154.[address] Jorge Benavides Work Phone: [facility] 11-21-2023 17:48-0500 Body mass index (BMI) [Ratio] 37.8 kg/m2 Dr. Jorge Benavides Work Phone: [facility] 11-21-2023 17:48-0500 Body weight 90.[address] Jorge Benavides Work Phone: [facility] 11-19-2023 13:07-0500 Body height 157.5 cm Lesli Shaver WINDER FIXER.REFINERY PIPELINE OPERATOR Work Phone: [facility] [place] 11-19-2023 13:07-0500 Body weight 86.18 kg Lesli Shaver WINDER FIXER.REFINERY PIPELINE OPERATOR Work Phone: [facility] [place] 11-19-2023 13:07-0500 Diastolic blood pressure 68 mm[Hg] Lesli Shaver WINDER FIXER.REFINERY PIPELINE OPERATOR Work Phone: [facility] [place] 11-19-2023 13:07-0500 Heart rate 56 /min Lesli Shaver WINDER FIXER.REFINERY PIPELINE OPERATOR Work Phone: [facility] [place] 11-19-2023 13:07-0500 SaO2% (BldA) [Mass fraction] 98 % Lesli Shaver WINDER FIXER.REFINERY PIPELINE OPERATOR Work Phone: [facility] [place] 11-19-2023 13:07-0500 Systolic blood pressure 161 mm[Hg] Lesli Shaver WINDER FIXERCarolinREFINERY PIPELINE OPERATOR Work Phone: [facility] [place] 11-19-2023 09:38-0500 Body height 157.5 cm Deepak Tomic WINDER FIXER.REFINERY PIPELINE OPERATOR Work Phone: [facility] [place] 11-19-2023 09:38-0500 Body weight 86.18 kg Deepak Tomic WINDER FIXER.REFINERY PIPELINE OPERATOR Work Phone: [facility] [place] 11-19-2023 09:38-0500 Diastolic blood pressure 62 mm[Hg] Deepak Tomic WINDER FIXER.REFINERY PIPELINE OPERATOR Work Phone: [facility] [place] 11-19-2023 09:38-0500 Heart rate 58 /min Deepak Tomic WINDER FIXER.REFINERY PIPELINE OPERATOR Work Phone: [facility] [place] 11-19-2023 09:38-0500 Systolic blood pressure 138 mm[Hg] Deepak Tomic WINDER FIXER.REFINERY PIPELINE OPERATOR Work Phone: [facility] [place] 11-04-2023 11:50-0500 Diastolic blood pressure 62 mm[Hg] Mario Aurin WINDER FIXER.REFINERY PIPELINE OPERATOR Work Phone: [facility] [place] 11-04-2023 11:50-0500 Systolic blood pressure 179 mm[Hg] Mario Aurin WINDER FIXER.REFINERY PIPELINE OPERATOR Work Phone: [facility] [place] 11-04-2023 11:37-0500 Body weight 87 kg Mario Aurin WINDER FIXER.REFINERY PIPELINE OPERATOR Work Phone: [facility] [place] 11-04-2023 11:37-0500 Heart rate 55 /min Mario Aurin WINDER FIXER.REFINERY PIPELINE OPERATOR Work Phone: [facility] [place] 11-04-2023 11:37-0500 SaO2% (BldA) [Mass fraction] 98 % Mario Aurin WINDER FIXER.REFINERY PIPELINE OPERATOR Work Phone: [facility] [place] 10-21-2023 10:50-0500 Body height 154.[address] Jorge Benavides Work Phone: [facility] 10-21-2023 10:50-0500 Body mass index (BMI) [Ratio] 35.9 kg/m2 Dr. Jorge Benavides Work Phone: [facility] 10-21-2023 10:50-0500 Body temperature 97.3 [degF] Dr. Jorge Benavides Work Phone: [facility] 10-21-2023 10:50-0500 Body weight 86.[address] Jorge Benavides Work Phone: [facility] 10-21-2023 10:50-0500 Diastolic blood pressure 82 mm[Hg] Dr. Jorge Benavides Work Phone: [facility] 10-21-2023 10:50-0500 Heart rate 69 /min Dr. Jorge Benavides Work Phone: [facility] 10-21-2023 10:50-0500 Respiratory rate 16 /min Dr. Jorge Benavides Work Phone: [facility] 10-21-2023 10:50-0500 SaO2% (BldA) [Mass fraction] 98 % Dr. Jorge Benavides Work Phone: [facility] 10-21-2023 10:50-0500 Systolic blood pressure 122 mm[Hg] Dr. Jorge Benavides Work Phone: [facility] 06-09-2023 14:45-0400 Body height 157.5 cm Rik Gregory MD Work Phone: [facility] [place] 06-09-2023 14:45-0400 Body weight 84.28 kg Rik Gregory MD Work Phone: [facility] [place] 06-09-2023 14:45-0400 Diastolic blood pressure 78 mm[Hg] Rik Gregory MD Work Phone: [facility] [place] 06-09-2023 14:45-0400 Heart rate 61 /min Rik Gregory MD Work Phone: [facility] [place] 06-09-2023 14:45-0400 Systolic blood pressure 130 mm[Hg] Rik Gregory MD Work Phone: [facility] [place] 05-19-2023 07:49-0400 Body height 154.[address] Jorge Benavides Work Phone: [facility] 05-19-2023 07:49-0400 Body mass index (BMI) [Ratio] 34.7 kg/m2 Dr. Jorge Benavides Work Phone: [facility] 05-19-2023 07:49-0400 Body temperature 96.5 [degF] Dr. Jorge Benavides Work Phone: [facility] 05-19-2023 07:49-0400 Body weight 83.[address] Jorge Benavides Work Phone: [facility] 05-19-2023 07:49-0400 Diastolic blood pressure 75 mm[Hg] Dr. Jorge Benavides Work Phone: [facility] 05-19-2023 07:49-0400 Heart rate 78 /min Dr. Jorge Benavides Work Phone: [facility] 05-19-2023 07:49-0400 Respiratory rate 18 /min Dr. Jorge Benavides Work Phone: [facility] 05-19-2023 07:49-0400 SaO2% (BldA) [Mass fraction] 99 % Dr. Jorge Benavides Work Phone: [facility] 05-19-2023 07:49-0400 Systolic blood pressure 136 mm[Hg] Dr. Jorge Benavides Work Phone: [facility] 05-14-2023 16:54-0400 Body height 157.5 cm Garth Hoffman MD Work Phone: [facility] [place] 05-14-2023 16:54-0400 Body weight 81.19 kg Garth Hoffman MD Work Phone: [facility] [place] 05-14-2023 16:54-0400 Diastolic blood pressure 86 mm[Hg] Garth Hoffman MD Work Phone: [facility] [place] 05-14-2023 16:54-0400 Heart rate 57 /min Garth Hoffman MD Work Phone: [facility] [place] 05-14-2023 16:54-0400 SaO2% (BldA) [Mass fraction] 100 % Garth Hoffman MD Work Phone: [facility] [place] 05-14-2023 16:54-0400 Systolic blood pressure 158 mm[Hg] Garth Hoffman MD Work Phone: [facility] [place] 04-21-2023 11:41-0400 Diastolic blood pressure 76 mm[Hg] Dr. Jorge Benavides Work Phone: [facility] 04-21-2023 11:41-0400 Systolic blood pressure 142 mm[Hg] Dr. Jorge Benavides Work Phone: [facility] 04-21-2023 10:36-0400 Body height 154.[address] Jorge Benavides Work Phone: [facility] 04-21-2023 10:36-0400 Body mass index (BMI) [Ratio] 35.3 kg/m2 Dr. Jorge Benavides Work Phone: [facility] 04-21-2023 10:36-0400 Body temperature 98.2 [degF] Dr. Jorge Benavides Work Phone: [facility] 04-21-2023 10:36-0400 Body weight 84.[address] Jorge Benavides Work Phone: [facility] 04-21-2023 10:36-0400 Heart rate 58 /min Dr. Jorge Benavides Work Phone: [facility] 04-21-2023 10:36-0400 Respiratory rate 16 /min Dr. Jorge Benavides Work Phone: [facility] 04-21-2023 10:36-0400 SaO2% (BldA) [Mass fraction] 99 % Dr. Jorge Benavides Work Phone: [facility] 02-10-2023 10:13-0400 Body height 154.[address] Jorge Benavides Work Phone: [facility] 02-10-2023 10:13-0400 Body mass index (BMI) [Ratio] 33.1 kg/m2 Dr. Jorge Benavides Work Phone: [facility] 02-10-2023 10:13-0400 Body weight 80.[address] Jorge Benavides Work Phone: [facility] 02-10-2023 10:13-0400 Diastolic blood pressure 79 mm[Hg] Dr. Jorge Benavides Work Phone: [facility] 02-10-2023 10:13-0400 Heart rate 60 /min Dr. Jorge Benavides Work Phone: [facility] 02-10-2023 10:13-0400 Respiratory rate 18 /min Dr. Jorge Benavides Work Phone: [facility] 02-10-2023 10:13-0400 SaO2% (BldA) [Mass fraction] 100 % Dr. Jorge Benavides Work Phone: [facility] 02-10-2023 10:13-0400 Systolic blood pressure 128 mm[Hg] Dr. Jorge Benavides Work Phone: [facility] 02-06-2023 14:08-0400 Body weight 79.38 kg Lynette Ervin APRN.REFINERY PIPELINE OPERATOR Work Phone: [facility] [place] 02-06-2023 14:08-0400 Diastolic blood pressure 71 mm[Hg] Lynette Ervin APRN.REFINERY PIPELINE OPERATOR Work Phone: [facility] [place] 02-06-2023 14:08-0400 Heart rate 68 /min Lynette Ervin APRN.REFINERY PIPELINE OPERATOR Work Phone: [facility] [place] 02-06-2023 14:08-0400 SaO2% (BldA) [Mass fraction] 99 % Lynette Aziza WINDER FIXER.REFINERY PIPELINE OPERATOR Work Phone: [facility] [place] 02-06-2023 14:08-0400 Systolic blood pressure 143 mm[Hg] Lynette Ervin WINDER FIXER.REFINERY PIPELINE OPERATOR Work Phone: [facility] [place] 01-29-2023 10:16-0400 Diastolic blood pressure 98 mm[Hg] Lynette Ervin WINDER FIXER.REFINERY PIPELINE OPERATOR Work Phone: [facility] [place] 01-29-2023 10:16-0400 Heart rate 58 /min Lynette Ervin WINDER FIXER.REFINERY PIPELINE OPERATOR Work Phone: [facility] [place] 01-29-2023 10:16-0400 SaO2% (BldA) [Mass fraction] 99 % Lynette Ervin WINDER FIXER.REFINERY PIPELINE OPERATOR Work Phone: [facility] [place] 01-29-2023 10:16-0400 Systolic blood pressure 210 mm[Hg] Lynette Ervin WINDER FIXER.REFINERY PIPELINE OPERATOR Work Phone: [facility] [place] 01-16-2023 14:31-0400 Body mass index (BMI) [Ratio] 32.8 kg/m2 Dr. Jorge Benavides Work Phone: [facility] 01-16-2023 14:31-0400 Body temperature 97.3 [degF] Dr. Jorge Benavides Work Phone: [facility] 01-16-2023 14:31-0400 Body weight 81.[address] Jorge Benavides Work Phone: [facility] 01-16-2023 14:31-0400 Diastolic blood pressure 62 mm[Hg] Dr. Jorge Benavides Work Phone: [facility] 01-16-2023 14:31-0400 Heart rate 72 /min Dr. Jorge Benavides Work Phone: [facility] 01-16-2023 14:31-0400 Respiratory rate 18 /min Dr. Jorge Benavides Work Phone: [facility] 01-16-2023 14:31-0400 SaO2% (BldA) [Mass fraction] 100 % Dr. Jorge Benavides Work Phone: [facility] 01-16-2023 14:31-0400 Systolic blood pressure 148 mm[Hg] Dr. Jorge Benavides Work Phone: [facility] 12-03-2022 10:38-0500 Body temperature 97.9 [degF] Dr. Jorge Benavides Work Phone: [facility] 12-03-2022 10:38-0500 Diastolic blood pressure 51 mm[Hg] Dr. Jorge Benavides Work Phone: [facility] 12-03-2022 10:38-0500 Heart rate 46 /min Dr. Jorge Benavides Work Phone: [facility] 12-03-2022 10:38-0500 Respiratory rate 16 /min Dr. Jorge Benavides Work Phone: [facility] 12-03-2022 10:38-0500 SaO2% (BldA) [Mass fraction] 99 % Dr. Jorge Benavides Work Phone: [facility] 12-03-2022 10:38-0500 Systolic blood pressure 143 mm[Hg] Dr. Jorge Benavides Work Phone: [facility] 12-02-2022 17:02-0500 Inhaled oxygen flow rate 2 L/min Dr. Jorge Benavides Work Phone: [facility] 12-02-2022 14:41-0500 Body height 157.[address] Jorge Benavides Work Phone: [facility] 12-02-2022 14:41-0500 Body weight [address] Jorge Benavides Work Phone: [facility] 12-01-2022 20:19-0500 Body mass index (BMI) [Ratio] 31.8 kg/m2 Dr. Jorge Benavides Work Phone: [facility] 12-01-2022 20:05-0500 Body temperature 98 [degF] Dr. Jorge Benavides Work Phone: [facility] 12-01-2022 20:05-0500 Diastolic blood pressure 89 mm[Hg] Dr. Jorge Benavides Work Phone: [facility] 12-01-2022 20:05-0500 Heart rate 51 /min Dr. Jorge Benavides Work Phone: [facility] 12-01-2022 20:05-0500 Respiratory rate 18 /min Dr. Jorge Benavides Work Phone: [facility] 12-01-2022 20:05-0500 SaO2% (BldA) [Mass fraction] 100 % Dr. Jorge Benavides Work Phone: [facility] 12-01-2022 20:05-0500 Systolic blood pressure 175 mm[Hg] Dr. Jorge Benavides Work Phone: [facility] 12-01-2022 16:48-0500 Body height 157.[address] Jorge Benavides Work Phone: [facility] 12-01-2022 16:48-0500 Body mass index (BMI) [Ratio] 32.2 kg/m2 Dr. Jorge Benavides Work Phone: [facility] 12-01-2022 16:48-0500 Body weight [address] Jorge Benavides Work Phone: [facility] 11-30-2022 10:41-0500 Body temperature 98.1 [degF] Shaggy Weston APRN.REFINERY PIPELINE OPERATOR Work Phone: [facility] [place] 11-30-2022 10:41-0500 Body weight 81.65 kg Shaggy Weston APRN.REFINERY PIPELINE OPERATOR Work Phone: [facility] [place] 11-30-2022 10:41-0500 Diastolic blood pressure 80 mm[Hg] Shaggy Weston APRN.REFINERY PIPELINE OPERATOR Work Phone: [facility] [place] 11-30-2022 10:41-0500 Heart rate 76 /min Shaggy Ricardoroya WINDER FIXER.REFINERY PIPELINE OPERATOR Work Phone: [facility] [place] 11-30-2022 10:41-0500 Respiratory rate 16 /[facility] WINDER FIXER.REFINERY PIPELINE OPERATOR Work Phone: [facility] [place] 11-30-2022 10:41-0500 SaO2% (BldA) [Mass fraction] 99 % [facility] WINDER FIXER.REFINERY PIPELINE OPERATOR Work Phone: [facility] [place] 11-30-2022 10:41-0500 Systolic blood pressure 122 mm[Hg] Shaggy Ricardoroya WINDER FIXER.REFINERY PIPELINE OPERATOR Work Phone: [facility] [place] 11-27-2022 11:40-0500 Diastolic blood pressure 59 mm[Hg] Angelito Cifuentes MD Work Phone: [facility] [place] 11-27-2022 11:40-0500 Heart rate 69 /min Angelito Cifuentes MD Work Phone: [facility] [place] 11-27-2022 11:40-0500 Systolic blood pressure 149 mm[Hg] Angelito Cifuentes MD Work Phone: [facility] [place] 11-27-2022 11:35-0500 Body height 151.1 cm Angelito Cifuentes MD Work Phone: [facility] [place] 11-27-2022 11:35-0500 Body weight 80.29 kg Angelito Cifuentes MD Work Phone: [facility] [place] 11-12-2022 06:41-0500 Body mass index (BMI) [Ratio] 37.1 kg/m2 Dr. Jorge Benavides Work Phone: [facility] 11-12-2022 06:41-0500 Body temperature 97.3 [degF] Dr. Jorge Benavides Work Phone: [facility] 11-12-2022 06:41-0500 Body weight 83.[address] Jorge Benavides Work Phone: [facility] 11-12-2022 06:41-0500 Diastolic blood pressure 66 mm[Hg] Dr. Jorge Benavides Work Phone: [facility] 11-12-2022 06:41-0500 Heart rate 83 /min Dr. Jorge Benavides Work Phone: [facility] 11-12-2022 06:41-0500 Respiratory rate 18 /min Dr. Jorge Benavides Work Phone: [facility] 11-12-2022 06:41-0500 SaO2% (BldA) [Mass fraction] 97 % Dr. Jorge Benavides Work Phone: [facility] 11-12-2022 06:41-0500 Systolic blood pressure 140 mm[Hg] Dr. Jorge Benavides Work Phone: [facility] 10-28-2022 13:02-0500 Body height 149.[address] Noris Youngblood Work Phone: [facility] 10-28-2022 13:02-0500 Body mass index (BMI) [Ratio] 35.5 kg/m2 Dr. Noris Youngblood Work Phone: [facility] 10-28-2022 13:02-0500 Body temperature 96.6 [degF] Dr. Noris Youngblood Work Phone: [facility] 10-28-2022 13:02-0500 Body weight 79.[address] Noris Youngblood Work Phone: [facility] 10-28-2022 13:02-0500 Diastolic blood pressure 84 mm[Hg] Dr. Noris Youngblood Work Phone: [facility] 10-28-2022 13:02-0500 Heart rate 64 /min Dr. Noris Youngblood Work Phone: [facility] 10-28-2022 13:02-0500 Respiratory rate 18 /min Dr. Noris Youngblood Work Phone: [facility] 10-28-2022 13:02-0500 SaO2% (BldA) [Mass fraction] 98 % Dr. Noris Youngblood Work Phone: [facility] 10-28-2022 13:02-0500 Systolic blood pressure 146 mm[Hg] Dr. Noris Youngblood Work Phone: [facility] 07-15-2022 13:24-0400 Body height 149.[address] Noris Youngblood Work Phone: [facility] Work Phone: 07-15-2022 13:24-0400 Body mass index (BMI) [Ratio] 34.5 kg/m2 Dr. Noris Youngblood Work Phone: [facility] 07-15-2022 13:24-0400 Body temperature 97 [degF] Dr. Noris Youngblood Work Phone: [facility] 07-15-2022 13:24-0400 Body weight 77.[address] Noris Youngblood Work Phone: [facility] 07-15-2022 13:24-0400 Diastolic blood pressure 70 mm[Hg] Dr. Noris Youngblood Work Phone: [facility] 07-15-2022 13:24-0400 Heart rate 73 /min Dr. Noris Youngblood Work Phone: [facility] 07-15-2022 13:24-0400 Respiratory rate 16 /min Dr. Noris Youngblood Work Phone: [facility] 07-15-2022 13:24-0400 SaO2% (BldA) [Mass fraction] 99 % Dr. Noris Youngblood Work Phone: [facility] 07-15-2022 13:24-0400 Systolic blood pressure 148 mm[Hg] Dr. Noris Youngblood Work Phone: [facility] 06-19-2022 12:41-0400 Body mass index (BMI) [Ratio] 34.5 kg/m2 Dr. Noris Youngblood Work Phone: [facility] Work Phone: 06-19-2022 12:41-0400 Body weight 77.[address] Noris Youngblood Work Phone: [facility] Work Phone: 06-19-2022 12:41-0400 Diastolic blood pressure 69 mm[Hg] Dr. Noris Youngblood Work Phone: [facility] Work Phone: 06-19-2022 12:41-0400 Heart rate 58 /min Dr. Noris Youngblood Work Phone: [facility] Work Phone: 06-19-2022 12:41-0400 Respiratory rate 16 /min Dr. Noris Youngblood Work Phone: [facility] Work Phone: 06-19-2022 12:41-0400 SaO2% (BldA) [Mass fraction] 98 % Dr. Noris Youngblood Work Phone: [facility] Work Phone: 06-19-2022 12:41-0400 Systolic blood pressure 147 mm[Hg] Dr. Noris Youngblood Work Phone: [facility] Work Phone: 06-11-2022 11:12-0400 Diastolic blood pressure 80 mm[Hg] Dr. Noris Youngblood Work Phone: [facility] Work Phone: 06-11-2022 11:12-0400 Systolic blood pressure 142 mm[Hg] Dr. Noris Youngblood Work Phone: [facility] Work Phone: 06-11-2022 11:02-0400 Body mass index (BMI) [Ratio] 34.5 kg/m2 Dr. Noris Youngblood Work Phone: [facility] Work Phone: 06-11-2022 11:02-0400 Body temperature 97.5 [degF] Dr. Noris Youngblood Work Phone: [facility] Work Phone: 06-11-2022 11:02-0400 Body weight 77.[address] Noris Youngblood Work Phone: [facility] Work Phone: 06-11-2022 11:02-0400 Heart rate 67 /min Dr. Noris Youngblood Work Phone: [facility] Work Phone: 06-11-2022 11:02-0400 Respiratory rate 16 /min Dr. Noris Youngblood Work Phone: [facility] Work Phone: 06-11-2022 11:02-0400 SaO2% (BldA) [Mass fraction] 99 % Dr. Noris Youngblood Work Phone: [facility] Work Phone: 05-30-2022 14:12-0400 Body height 151.1 cm Garth Hoffman MD Work Phone: [facility] [place] 05-30-2022 14:12-0400 Body weight 73.48 kg Garth Hoffman MD Work Phone: [facility] [place] 05-30-2022 14:12-0400 Diastolic blood pressure 76 mm[Hg] Garth Hoffman MD Work Phone: [facility] [place] 05-30-2022 14:12-0400 Heart rate 64 /min Garth Hoffman MD Work Phone: [facility] [place] 05-30-2022 14:12-0400 Respiratory rate 12 /min Garth Hoffman MD Work Phone: [facility] [place] 05-30-2022 14:12-0400 SaO2% (BldA) [Mass fraction] 99 % Garth Hoffman MD Work Phone: [facility] [place] 05-30-2022 14:12-0400 Systolic blood pressure 126 mm[Hg] Garth Hoffman MD Work Phone: [facility] [place] 05-30-2022 11:10-0400 Diastolic blood pressure 64 mm[Hg] Mri (I-Stat/1.5t) Work Phone: [facility] [place] 05-30-2022 11:10-0400 Heart rate 80 /min Mri (I-Stat/1.5t) Work Phone: [facility] [place] 05-30-2022 11:10-0400 SaO2% (BldA) [Mass fraction] 99 % Mri (I-Stat/1.5t) Work Phone: [facility] [place] 05-30-2022 11:10-0400 Systolic blood pressure 158 mm[Hg] Mri (I-Stat/1.5t) Work Phone: [facility] [place] 05-30-2022 09:59-0400 Body height 152.4 cm Mri (I-Stat/1.5t) Work Phone: [facility] [place] 05-30-2022 09:59-0400 Body weight 75.3 kg Mri (I-Stat/1.5t) Work Phone: [facility] [place] 05-20-2022 08:10-0400 Body height 149.[address] Noris Youngblood Work Phone: [facility] Work Phone: 05-20-2022 08:10-0400 Body mass index (BMI) [Ratio] 33.6 kg/m2 Dr. Noris Youngblood Work Phone: [facility] Work Phone: 05-20-2022 08:10-0400 Body temperature 97.3 [degF] Dr. Noris Youngblood Work Phone: [facility] Work Phone: 05-20-2022 08:10-0400 Body weight 75.[address] Noris Youngblood Work Phone: [facility] Work Phone: 05-20-2022 08:10-0400 Diastolic blood pressure 75 mm[Hg] Dr. Noris Youngblood Work Phone: [facility] Work Phone: 05-20-2022 08:10-0400 Heart rate 79 /min Dr. Noris Youngblood Work Phone: [facility] Work Phone: 05-20-2022 08:10-0400 Respiratory rate 16 /min Dr. Noris Youngblood Work Phone: [facility] Work Phone: 05-20-2022 08:10-0400 SaO2% (BldA) [Mass fraction] 97 % Dr. Noris Youngblood Work Phone: [facility] Work Phone: 05-20-2022 08:10-0400 Systolic blood pressure 142 mm[Hg] Dr. Noris Youngblood Work Phone: [facility] Work Phone: 04-15-2022 10:03-0400 Body mass index (BMI) [Ratio] 33.5 kg/m2 Dr. Noris Youngblood Work Phone: [facility] Work Phone: 04-15-2022 10:03-0400 Body temperature 98.3 [degF] Dr. Noris Youngblood Work Phone: [facility] Work Phone: 04-15-2022 10:03-0400 Body weight 75.[address] Noris Youngblood Work Phone: [facility] Work Phone: 04-15-2022 10:03-0400 Diastolic blood pressure 78 mm[Hg] Dr. Noris Youngblood Work Phone: [facility] Work Phone: 04-15-2022 10:03-0400 Heart rate 54 /min Dr. Noris Youngblood Work Phone: [facility] Work Phone: 04-15-2022 10:03-0400 Respiratory rate 14 /min Dr. Noris Youngblood Work Phone: [facility] Work Phone: 04-15-2022 10:03-0400 SaO2% (BldA) [Mass fraction] 97 % Dr. Noris Youngblood Work Phone: [facility] Work Phone: 04-15-2022 10:03-0400 Systolic blood pressure 134 mm[Hg] Dr. Noris Youngblood Work Phone: [facility] Work Phone: 04-08-2022 09:54-0400 Body temperature 97.2 [degF] Dr. Noris Youngblood Work Phone: [facility] Work Phone: 04-08-2022 09:54-0400 Diastolic blood pressure 54 mm[Hg] Dr. Noris Youngblood Work Phone: [facility] Work Phone: 04-08-2022 09:54-0400 Heart rate 64 /min Dr. Noris Youngblood Work Phone: [facility] Work Phone: 04-08-2022 09:54-0400 Respiratory rate 18 /min Dr. Noris Youngblood Work Phone: [facility] Work Phone: 04-08-2022 09:54-0400 SaO2% (BldA) [Mass fraction] 99 % Dr. Noris Youngblood Work Phone: [facility] Work Phone: 04-08-2022 09:54-0400 Systolic blood pressure 150 mm[Hg] Dr. Noris Youngblood Work Phone: [facility] Work Phone: 04-05-2022 10:31-0400 Body height 149.[address] Noris Youngblood Work Phone: [facility] Work Phone: 04-05-2022 10:31-0400 Body weight 78.[address] Noris Youngblood Work Phone: [facility] Work Phone: 04-01-2022 23:56-0400 Inhaled oxygen flow rate 2 L/min Dr. Noris Youngblood Work Phone: [facility] Work Phone: 03-28-2022 14:42-0400 Body mass index (BMI) [Ratio] 36.3 kg/m2 Dr. Noris Youngblood Work Phone: [facility] Work Phone: 03-28-2022 12:57-0400 Diastolic blood pressure 63 mm[Hg] DR KEITH RODRIGEZ MD [facility] 03-28-2022 12:57-0400 Mean blood pressure 96 mm[Hg] DR KEITH RODRIGEZ MD [facility] 03-28-2022 12:57-0400 Systolic blood pressure 163 mm[Hg] DR KEITH RODRIGEZ MD [facility] 03-28-2022 11:00-0400 Diastolic blood pressure 67 mm[Hg] DR KEITH RODRIGEZ MD [facility] 03-28-2022 11:00-0400 Systolic blood pressure 183 mm[Hg] DR KEITH RODRIGEZ MD [facility] 03-28-2022 10:57-0400 Body temperature 97.34 [degF] DR KEITH RODRIGEZ MD [facility] 03-28-2022 10:57-0400 Diastolic blood pressure 71 mm[Hg] DR KEITH RODRIGEZ MD [facility] 03-28-2022 10:57-0400 Heart rate 50 /min DR KEITH RODRIGEZ MD [facility] 03-28-2022 10:57-0400 Mean blood pressure 109 mm[Hg] DR KEITH RODRIGEZ MD [facility] 03-28-2022 10:57-0400 Reason For Taking VItal Signs DR KEITH RODRIGEZ MD [facility] 03-28-2022 10:57-0400 Respiratory rate 16 /min DR KEITH RODRIGEZ MD [facility] 03-28-2022 10:57-0400 Systolic blood pressure 186 mm[Hg] DR KEITH RODRIGEZ MD [facility] 03-28-2022 07:12-0400 Body temperature 97.34 [degF] DR KEITH RODRIGEZ MD [facility] 03-28-2022 07:12-0400 Heart rate 54 /min DR KEITH RODRIGEZ MD [facility] 03-28-2022 07:12-0400 Mean blood pressure 103 mm[Hg] DR KEITH RODRIGEZ MD [facility] 03-28-2022 07:12-0400 Reason For Taking VItal Signs DR KEITH RODRIGEZ MD [facility] 03-28-2022 07:12-0400 Respiratory rate 16 /min DR KEITH RODRIGEZ MD [facility] 03-28-2022 06:05-0400 Body temperature 97.88 [degF] DR KEITH RODRIGEZ MD [facility] 03-28-2022 06:05-0400 Heart rate 52 /min DR KEITH RODRIGEZ MD [facility] 03-28-2022 06:05-0400 Reason For Taking VItal Signs DR KEITH RODRIGEZ MD [facility] 03-28-2022 06:05-0400 Respiratory rate 18 /min DR KEITH RODRIGEZ MD [facility] 03-26-2022 18:09-0400 Diastolic Blood Pressure NBP [address] KEITH RODRIGEZ MD [facility] 03-26-2022 18:09-0400 Systolic Blood Pressure NBP [address] KEITH RODRIGEZ MD [facility] 03-26-2022 16:13-0400 Diastolic Blood Pressure NBP [address] KEITH RODRIGEZ MD [facility] 03-26-2022 16:13-0400 Systolic Blood Pressure NBP [address] KEITH RODRIGEZ MD [facility] 03-26-2022 16:04-0400 Diastolic Blood Pressure NBP [address] KEITH RODRIGEZ MD [facility] 03-26-2022 16:04-0400 Systolic Blood Pressure NBP [address] KEITH RODRIGEZ MD [facility] 03-26-2022 15:59-0400 Body height 149.[address] KEITH RODRIGEZ MD [facility] 03-26-2022 15:59-0400 Body weight [address] KEITH RODRIGEZ MD [facility] 03-26-2022 15:59-0400 Body weight 33.38 kg/m2 DR KEITH RODRIGEZ MD [facility] 03-26-2022 14:25-0400 Body temperature 96.98 [degF] DR KEITH RODRIGEZ MD [facility] 03-26-2022 11:36-0400 Heart rate 60 /min DR KEITH RODRIGEZ MD [facility] 03-26-2022 11:30-0400 Heart rate 63 /min DR KEITH RODRIGEZ MD [facility] 03-26-2022 11:13-0400 Heart rate 58 /min DR KEITH RODRIGEZ MD [facility] 03-26-2022 10:30-0400 Body height 149.[address] KEITH RODRIGEZ MD [facility] 03-26-2022 10:30-0400 Body temperature 96.98 [degF] DR KEITH RODRIGEZ MD [facility] 03-26-2022 10:30-0400 Body weight [address] KEITH RODRIGEZ MD [facility] 03-19-2022 07:40-0400 Body mass index (BMI) [Ratio] 34.4 kg/m2 Dr. Noris Youngblood Work Phone: [facility] Work Phone: 03-19-2022 07:40-0400 Body temperature 98.2 [degF] Dr. Noris Youngblood Work Phone: [facility] Work Phone: 03-19-2022 07:40-0400 Body weight 78.[address] Noris Youngblood Work Phone: [facility] Work Phone: 03-19-2022 07:40-0400 Diastolic blood pressure 81 mm[Hg] Dr. Noris Youngblood Work Phone: [facility] Work Phone: 03-19-2022 07:40-0400 Heart rate 81 /min Dr. Noris Youngblood Work Phone: [facility] Work Phone: 03-19-2022 07:40-0400 Respiratory rate 16 /min Dr. Noris Youngblood Work Phone: [facility] Work Phone: 03-19-2022 07:40-0400 SaO2% (BldA) [Mass fraction] 96 % Dr. Noris Youngblood Work Phone: [facility] Work Phone: 03-19-2022 07:40-0400 Systolic blood pressure 197 mm[Hg] Dr. Noris Youngblood Work Phone: [facility] Work Phone: 03-12-2022 11:23-0400 Body height 149.[address] KEITH RODRIGEZ MD [facility] 03-12-2022 11:23-0400 Body weight [address] KEITH RODRIGEZ MD [facility] 03-12-2022 11:23-0400 Body weight 33.38 kg/m2 DR KEITH RODRIGEZ MD [facility] 03-12-2022 11:23-0400 diastolic 56 mm[Hg] DR KEITH RODRIGEZ MD [facility] 03-12-2022 11:23-0400 Heart rate 50 /min DR KEITH RODRIGEZ MD [facility] 03-12-2022 11:23-0400 systolic 136 mm[Hg] DR KEITH RODRIGEZ MD [facility] 02-26-2022 11:23-0400 Body temperature 98.01 [degF] Hayde Henry WINDER FIXER.REFINERY PIPELINE OPERATOR Work Phone: [facility] [place] 02-26-2022 11:23-0400 Body weight 77.11 kg Hayde Henry WINDER FIXER.REFINERY PIPELINE OPERATOR Work Phone: [facility] [place] 02-26-2022 11:23-0400 Diastolic blood pressure 68 mm[Hg] Hayde Henry WINDER FIXER.REFINERY PIPELINE OPERATOR Work Phone: [facility] [place] 02-26-2022 11:23-0400 Heart rate 80 /min Hayde Henry WINDER FIXER.REFINERY PIPELINE OPERATOR Work Phone: [facility] [place] 02-26-2022 11:23-0400 Respiratory rate 16 /min Hayde Henry WINDER FIXER.REFINERY PIPELINE OPERATOR Work Phone: [facility] [place] 02-26-2022 11:23-0400 SaO2% (BldA) [Mass fraction] 97 % Hayde Henry WINDER FIXER.REFINERY PIPELINE OPERATOR Work Phone: [facility] [place] 02-26-2022 11:23-0400 Systolic blood pressure 118 mm[Hg] Hayde Henry WINDER FIXER.REFINERY PIPELINE OPERATOR Work Phone: [facility] [place] 09-30-2021 03:11-0500 Body mass index (BMI) [Ratio] 39.6 kg/m2 [facility] Work Phone: 08-29-2021 01:240500 Body mass index (BMI) [Ratio] 39.6 kg/m2 [facility] Work Phone: Encounters Encounter Date Encounter Type Care Provider Facility Start: 08-03-2025 ambulatory Jorge Benavides Facility :[facility] Start: 07-21-2025 ambulatory Berry Bernardo ty:[facility] Start: 07-21-2025 End: 07-21-2025 ambulatory Ros Nice Facility:[facility] Start: 07-19-2025 End: 07-19-2025 ambulatory Ward ANDERSON Facility:[facility] Start: 07-13-2025 End: 07-13-2025 Dr. Ros Nice DO -Laboratory Work Phone: Start: 07-13-2025 End: 07-13-2025 ambulatory Ros Nice Facility:[facility] Start: 07-11-2025 End: 07-11-2025 Dr. Berry Avitia MD -[facility] Work Phone: Start: 07-11-2025 End: 07-11-[address] Jorge Benavides MD Work Phone: -[facility] Start: 07-08-2025 End: 07-08-2025 Ward ANDERSON -[facility] Work Phone: Start: 07-08-2025 End: 07-08-[address] Jorge Benavides MD Work Phone: -[facility] Start: 07-07-2025 End: 07-08-2025 [facility] Work [facility]: Start: 07-07-2025 End: 07-08-2025 Emergency department patient visit Dr. Jorge Benavides MD Work Phone: -Emergency Department Start: 07-04-2025 End: 07-04-2025 Dr. Berry Avitia MD -[facility] [place] Work Phone: Start: 07-04-2025 End: 07-04-[address] Jorge Benavides MD Work Phone: -[facility] Start: 07-02-2025 Encounter for genera l adult medical examination without abnormal findings Razia Maxwell NP [facility] Start: 06-29-2025 End: 06-29-2025 Edgar Thompson PA -Laboratory Work Phone: Start: 06-29-2025 End: 06-29-2025 ambulatory Edgar Thompson Facility:[facility] Start: 06-22-2025 End: 06-22-[address] Jorge Benavides MD Work Phone: -Sleep Lab Start: 06-22-2025 End: 06-22-2025 Razia NEWMANC -Sleep Lab Work Phone: Start: 06-22-2025 [facility] Work Phone: Start: 06-22-2025 ambulatory [facility] Facility :[facility] Start: 06-21-2025 End: 06-21-2025 Dr. Kymberly Leger MD -[facility] Work Phone: Start: 06-21-2025 End: 06-22-[address] Jorge Benavides MD Work Phone: -[facility] Start: 06-20-2025 End: 06-20-2025 ambulatory SHEBA SOMERS Facility:[facility] Start: 06-17-2025 End: 06-17-[address] Jorge Benavides MD Work Phone: -Sleep Lab Start: 06-17-2025 End: 06-17-2025 Razia Maxwell NP-C -Sleep Lab Work Phone: Start: 06-16-2025 End: 06-16-2025 Dr. Jorge Benavides MD -[facility] Work Phone: Start: 06-16-2025 End: 06-17-[address] Jorge Benavides MD Work Phone: -[facility] Start: 06-15-2025 End: 06-15-[address] Jorge Benavides MD Work Phone: -Cardiovascular Services Start: 06-15-2025 End: 06-15-2025 Dr. Jesse Sykes MD -[facility] Start: 06-14-2025 End: 06-15-[address] Jorge Benavides MD Work Phone: -Laboratory Start: 06-14-2025 End: 06-14-2025 Edgar Thompson PA -Laboratory Work Phone: Start: 06-14-2025 End: 06-14-2025 ambulatory Edgar Thompson Facility:[facility] Start: 06-09-2025 End: 06-09-[address] Jorge Benavides MD Work Phone: -Laboratory Start: 06-09-2025 End: 06-09-2025 Dr. Ros Nice DO -Laboratory Work Phone: Start: 06-08-2025 End: 06-08-2025 Telephone encounter Xiao Suazo MD Work Phone: Cardiology Comment on above: Appointment Start: 06-08-2025 End: 06-09-[address] Jorge Benavides MD Work Phone: -Laboratory Start: 06-08-2025 End: 06-08-2025 Dr. Ros Nice DO -Laboratory Work Phone: Start: 06-08-2025 End: 06-08-2025 ambulatory Ros Nice Facility:[facility] Start: 06-02-2025 End: 06-02-2025 Refill Razia Clements MD Work Phone: Cardiology Comment on above: Refill Request Start: 05-31-2025 End: 05-31-[address] Jorge Benavides MD Work Phone: -Laboratory Start: 05-31-2025 Patient encounter procedure Hayde García LIDAR SCIENTIST-C -Laboratory Work Phone: Start: 05-31-2025 End: 05-31-2025 Hayde García LIDAR SCIENTIST-C -Laboratory Work Phone: Start: 05-31-2025 End: 05-31-2025 ambulatory Haydekatarina Vegasr Facility:[facility] Start: 05-27-2025 End: 05-27-[address] Jorge Benavides MD Work Phone: -Laboratory Start: 05-27-2025 End: 05-27-2025 Patient encounter procedure Edgar Demiter PA -Laboratory Work Phone: Start: 05-27-2025 End: 05-27-2025 Edgar Demiter PA -Laboratory Work Phone: Start: 05-27-2025 End: 05-27-2025 ambulatory Edgar Demiter Facility:[facility] Start: 05-24-2025 End: 05-24-2025 Patient encounter procedure Razia Maxwell NP-C -[facility] Work Phone: Start: 05-24-2025 End: 05-24-2025 Razia Maxwell NP-C -[facility] Work Phone: Start: 05-24-2025 End: 05-24-[address] Jorge Benavides MD Work Phone: -[facility] Start: 05-19-2025 End: 05-19-[address] Jorge Benavides MD Work Phone: -Laboratory Specimen Start: 05-19-2025 End: 05-19-2025 Patient encounter procedure Hayed García LIDAR SCIENTIST-C -Laboratory Specimen Work Phone: Start: 05-19-2025 End: 05-19-2025 Hayde García LIDAR SCIENTIST-C -Laboratory Specime n Work Phone: Start: 05-19-2025 End: 05-19-2025 ambulatory Hayde García Facility:[facility] Start: 05-17-2025 End: 05-17-2025 Patient encounter procedure Hayde Arroyoaugusto LIDAR SCIENTIST-C -[facility] Work Phone: Start: 05-17-2025 End: 05-17-2025 Hayde Ricky LIDAR SCIENTIST-C -[facility] Work Phone: Start: 05-17-2025 End: 05-17-[address] Jorge Benavides MD Work Phone: -[facility] Start: 05-17-2025 End: 05-17-[address] Kymberly Leger MD -[facility] Work Phone: Start: 05-17-2025 End: 05-17-2025 Dr. Kymberly Leger MD -[facility] Work Phone: Start: 05-17-2025 End: 05-17-[address] Jorge Benavides MD Work Phone: -[facility] Start: 05-13-2025 End: 05-13-[address] Jorge Benavides MD Work Phone: -Laboratory Start: 05-13-2025 End: 05-13-2025 Patient encounter procedure Edgar Demiter PA -Laboratory Work Phone: Start: 05-13-2025 End: 05-13-2025 Edgar Demiter PA -Laboratory Work Phone: Start: 05-13-2025 End: 05-13-2025 Patient encounter procedure Edgar Demiter PA -[facility] Work Phone: Start: 05-13-2025 End: 05-13-2025 Edgar Demiter PA -[facility] Work Phone: Start: 05-13-2025 End: 05-13-[address] Jorge Benavides MD Work Phone: -[facility] Start: 05-13-2025 End: 05-13-2025 ambulatory Edgar Thompson Facility:[facility] Start: 04-13-2025 End: 04-13-[address] Jorge Benavides MD Work Phone: -Laboratory Start: 04-13-2025 End: 04-13-[address] Ros Nice DO -Laboratory Work Phone: Start: 04-13-2025 End: 04-13-2025 Dr. Ros Nice DO -Laboratory Work Phone: Start: 04-12-2025 End: 04-12-[address] Jorge Benavides MD -[facility] Work Phone: Start: 04-12-2025 End: 04-12-2025 Dr. Jorge Benavides MD -[facility] Work Phone: Start: 04-12-2025 End: 04-13-[address] Jorge Benavides MD Work Phone: -[facility] Start: 04-05-2025 End: 04-05-2025 ambulatory Celine Elizalde RN [facility] Start: 04-05-2025 End: 04-05-2025 Patient encounter procedure Celine Elizalde RN [employer] [facility] Start: 03-29-2025 Non-patient / Non-visit Dr. Kymberly may MD -[facility] Work Phone: Start: 03-29-2025 Dr. Kymberly Leger MD -[facility] Work Phone: Start: 02-24-2025 End: 02-24-2025 Patient encounter procedure Sheba Somers MD Work Phone: Cardiology Comment on above: S/P TAVR (transcathe ter aortic valve replacement) (Primary Dx); Acute on chronic heart failure with preserved ejection fraction (HCC); Chronic obstructive pulmonary disease, unspecified COPD type (HCC); Essential (primary) hypertension; Permanent atrial fibrillation (HCC); Other chronic pain; half-way (current) use of anticoagulants; Coronary artery disease of [place] artery of [place] heart with stable angina pectoris Start: 02-24-2025 End: 02-24-2025 ambulatory SHEBA SOMERS Facility:[facility] Start: 02-22-2025 End: 02-22-2025 Emergency department patient visit Dr. Jorge Benavides MD Work Phone: [facility] Work Phone: Start: 02-22-2025 End: 02-22-2025 Dr. Jorge Benavides MD Work Phone: -Emergency Department Work Phone: Start: 02-18-2025 ambulatory Jorge Benavides Facility :[facility] Start: 02-07-2025 End: 02-07-2025 ambulatory DOMENIC SERRANO Facility:[facility] Start: 02-07-2025 End: 02-07-2025 Patient encounter procedure Domenic Serrano APRN.REFINERY PIPELINE OPERATOR Work Phone: Preventive Cardiology Comment on above: Localized edema (Dao lynette Dx); Right calf pain Start: 02-07-2025 End: 02-07-2025 ambulatory DOMENIC SERRANO Facility:[facility] Start: 02-05-2025 End: 02-05-[address] Jorge Benavides MD Work Phone: [facility] Work Phone: Start: 02-05-2025 End: 02-05-[address] Ros Nice DO -Laboratory Work Phone: Start: 02-05-2025 End: 02-05-2025 Dr. Ros Nice DO -Laboratory Work Phone: Start: 02-05-2025 End: 02-05-2025 ambulatory Jorge Benavides Facility:[facility] Start: 02-01-2025 End: 02-01-[address] Julieta Johnson MD -[facility] Work Phone: Start: 02-01-2025 End: 02-01-2025 Dr. Julieta Johnson MD -[facility] Work Phone: Start: 02-01-2025 End: 02-01-2025 ambulatory Jorge Benavides Facility:[facility] Start: 01-07-2025 End: 01-10-2025 Follow-up encounter Mera Hudson WINDER FIXER.REFINERY PIPELINE OPERATOR Work Phone: [place] Provider Adult Start: 01-07-2025 End: 01-07-2025 Patient encounter procedure Janeth Landis PA -Laboratory Specimen Work Phone: Start: 01-07-2025 End: 01-07-2025 Janeth ANDERSON -Laboratory, Specime n Work Phone: Start: 01-07-2025 End: 01-07-[address] Jorge Benavides MD Work Phone: [facility] Work Phone: Start: 01-07-2025 End: 01-07-[address] [facility] Facility:[facility] Start: 2025 End: [address] Julieta Johnson MD -[facility] Work Phone: Start: 2025 End: 2025 Dr. Julieta Johnson MD -[facility] Work Phone: Start: 2025 End: 2025 ambulatory Julieta Johnson Facility:[facility] Start: 01-04-2025 End: 01-04-2025 ambulatory MERA HUDSON Facility:[facility] Start: 01-04-2025 End: 01-04-2025 Patient encounter procedure Mera Hudson WINDER FIXER.REFINERY PIPELINE OPERATOR Work Phone: Cardiology Comment on above: Chronic diastolic co ngestive heart failure (HCC) (Primary Dx); 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 [place] heart without angina pectoris; S/P TAVR (transcatheter aortic valve replacement); SSS (sick sinus syndrome) ([facility]); Primary hypertension; Mixed hyperlipidemia; Persistent atrial fibrillation (HCC); LBBB (left bundle branch block); Cardiac pacemaker; MCGOVERN (dyspnea on exertion) Start: 12-23-2024 End: 12-23-2024 Follow-up encounter Razia Clements MD Work Phone: Cardiology Start: 12-23-2024 End: 12-23-2024 ambulatory RAZIA CLEMENTS Facility:[facility] Start: 12-22-2024 End: 12-22-2024 Patient encounter procedure Janeth ANDERSON -Laboratory, Specimen Work Phone: Start: 12-22-2024 End: 12-22-2024 Janeth ANDERSON -Laboratory, Specime n Work Phone: Start: 12-22-2024 End: 12-22-[address] Jorge Benavides MD Work Phone: [facility] Work Phone: Start: 12-20-2024 End: 12-20-[address] Jorge Benavides MD Work Phone: [facility] Work Phone: Start: 12-20-2024 End: 12-20-[address] Jorge Benavides MD -Ultrasound, [facility] Work Phone: Start: 12-20-2024 End: 12-20-2024 Dr. Jorge Benavides MD -Ultrasound, [facility] Work Phone: Start: 12-20-2024 End: 12-20-2024 ambulatory Jorge Benavides Facility:[facility] Start: 12-17-2024 End: 12-17-[address] Jorge Benavides MD Work Phone: [facility] Work Phone: Start: 12-17-2024 End: 12-17-2024 Patient encounter procedure Janeth ANDERSON -Laboratory Work Phone: Start: 12-17-2024 End: 12-17-2024 Janeth ANDERSON -Laboratory Work Phone: Start: 12-17-2024 End: 12-17-2024 Patient encounter procedure Janeth ANDERSON -[facility] Work Phone: Start: 12-17-2024 End: 12-17-2024 Janeth ANDERSON -[facility] Work Phone: Start: 12-17-2024 End: 12-17-2024 ambulatory Jorge Benavides Facility[facility] Start: 12-17-2024 End: 12-17-2024 ambulatory Janeth Landis Facility:[facility] Start: 12-09-2024 End: 12-09-[address] Jorge Benavides MD -[facility] Work Phone: Start: 12-09-2024 End: 12-09-2024 Dr. Jorge Benavides MD -[facility] Work Phone: Start: 12-09-2024 End: 12-09-2024 ambulatory Jorge Benavides Facility:[facility] Start: 12-08-2024 End: 12-08-[address] Jorge Benavides MD Work Phone: [facility] Work Phone: Start: 12-08-2024 End: 12-08-[address] Ros Nice DO -Laboratory Work Phone: Start: 12-08-2024 End: 12-08-2024 Dr. Ros Nice DO -Laboratory Work Phone: Start: 12-08-2024 End: 12-08-2024 ambulatory Ros Nice Facility:[facility] Start: 12-01-2024 End: 12-01-[address] Jorge Benavides MD Work Phone: [facility] Work Phone: Start: 12-01-2024 End: 12-01-[address] Ros Nice DO -Laboratory Work Phone: Start: 12-01-2024 End: 12-01-2024 Dr. Ros Nice DO -Laboratory Work Phone: Start: 12-01-2024 End: 12-27-[address] Ros Nice DO -[facility] Work Phone: Start: 12-01-[address] Ros yo DO -Nutritional Services Work Phone: Start: 12-01-2024 End: 12-27-2024 Dr. Ros Nice DO -Nutritional Servic es Work Phone: Start: 12-01-2024 End: 12-27-[address] Jorge Benavides MD Work Phone: [facility] Work Phone: Start: 12-01-2024 End: 12-01-2024 ambulatory Jorge Leivalay Facility:[facility] Start: 11-24-2024 End: 11-24-[address] Jorge Benavides MD Work Phone: [facility] Work Phone: Start: 11-24-2024 End: 11-24-[address] Ros Nice DO -Laboratory Work Phone: Start: 11-24-2024 End: 11-24-2024 Dr. Ros Nice DO -Laboratory Work Phone: Start: 11-24-2024 End: 11-24-2024 ambulatory Jorge Benavides Facility:[facility] Start: 11-17-2024 Non-patient / Non-visit Dr. Ng DO -[facility] Work Phone: Start: 11-17-2024 Dr. Angel Tay DO -[facility] Work Phone: Start: 11-16-2024 Non-patient / Non-visit Dr. Tamra Moeller MD -[facility] Work Phone: Start: 11-16-2024 ambulatory Jorge Benavides Facility :[facility] Start: 11-16-2024 End: 11-17-2024 Evaluation and management of inpatient Dr. Angel Tay DO -Progressive Care Unit Work Phone: Start: 11-16-2024 End: 11-17-2024 Dr. Angel Tay DO Progressive Care Unit Work Phone: Start: 11-16-2024 End: 11-16-2024 Telephone encounter Domenic Serrano APRN.REFINERY PIPELINE OPERATOR Work Phone: [facility] Comment on above: Results (potassium) Results (High Critic al Lab) Start: 11-16-2024 End: 11-16-2024 ambulatory DOMENICVINH SERRANO Facility:[facility] Start: 11-12-2024 End: 11-17-2024 Telephone encounter Razia Clements MD Work Phone: Cardiology Start: 11-11-2024 End: 11-11-2024 ambulatory RAZIA CLEMENTS Facility:[facility] Start: 11-10-2024 End: 11-10-2024 ambulatory DOMENICVINH SERRANO Facility:[facility] Start: 11-10-2024 End: 11-10-2024 Patient encounter procedure Domenic Serrano APRN.REFINERY PIPELINE OPERATOR Work Phone: Preventive Cardiology Comment on above: Primary hypertension (Primary Dx); 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 ottawa heart without angina pectoris; S/P TAVR (transcatheter aortic valve replacement); Paroxysmal atrial fibrillation (HCC); SSS (sick sinus syndrome) (HCC) Start: 11-09-2024 End: 11-09-2024 ambulatory RAZIA CLEMENTS Facility:[facility] Start: 11-09-2024 End: 11-09-2024 Patient encounter procedure Razia Clements MD Work Phone: Cardiology Comment on above: Coronary artery dise ase due to lipid rich plaque (Primary Dx); S/P TAVR (transcatheter aortic valve replacement); Cardiac pacemaker Start: 11-01-2024 End: 11-01-[address] Ros Nice DO -Laboratory Work Phone: Start: 11-01-2024 End: 11-01-2024 Dr. Ros Nice DO -Laboratory Work Phone: Start: 11-01-2024 End: 11-01-2024 ambulatory Ros Nice Facility:[facility] Start: 10-28-2024 End: 10-28-2024 Telephone encounter Sheba Somers MD Work Phone: Cardiology Comment on above: Appointment Start: 10-27-2024 End: 10-27-[address] Ros HAIDERLaboratory, Phy Office 3rd Flr Start: 10-27-2024 End: 10-27-2024 Dr. Ros HAIDERLaboratory, Phy [facility] 3rd Flr Start: 10-27-2024 End: 10-27-2024 ambulatory Jorge Leivalay Facility:[facility] Start: 10-20-2024 End: 10-20-[address] Jorge Benavides MD -Outpatient Bone Densitometry Work Phone: Start: 10-20-2024 End: 10-20-2024 Dr. Jorge Benavides MD -Outpatient Bone Densitometry Work Phone: Start: 10-20-2024 End: 10-20-2024 ambulatory Ros Nice Facility:[facility] Start: 10-12-2024 End: 10-12-[address] Jorge Benavides MD -[facility] Work Phone: Start: 10-12-2024 End: 10-12-2024 Dr. Jorge Benavides MD -[facility] Work Phone: Start: 10-12-2024 End: 10-12-2024 ambulatory Jorge Benavides Facility:[facility] Start: 08-23-2024 End: 08-23-[address] Jorge Benavides MD -[facility] Work Phone: Start: 08-23-2024 End: 08-23-2024 ambulatory Jorge [place] Facility:[facility] Start: 08-23-2024 End: 08-23-2024 ambulatory Jorge [place] Facility:[facility] Start: 08-19-2024 End: 08-19-2024 Refill Mario Moscoso APRN.REFINERY PIPELINE OPERATOR Work Phone: Cardiology Start: 07-14-2024 End: 07-14-2024 Telephone encounter Sheba Somers MD Work Phone: Cardiology Start: 07-12-2024 End: 07-12-2024 Telephone encounter Sheba Somers MD Work Phone: Cardiology Start: 06-30-2024 End: 06-30-2024 Telephone encounter Sheba Somers MD Work Phone: Cardiology Comment on above: Patient Question Start: 06-24-2024 End: 06-24-2024 Patient encounter procedure Xiao Suazo MD Work Phone: Cardiology Comment on above: SSS (sick sinus synd markie) (HCC) (Primary Dx) Start: 06-24-2024 End: 06-24-2024 ambulatory XIAO SUAZO Facility:[facility] Start: 06-22-2024 End: 06-22-2024 Telephone encounter Domenic Serrano APRN.REFINERY PIPELINE OPERATOR Work Phone: Cardiology Start: 06-01-2024 End: 06-01-2024 ambulatory Cee Willard APRN.REFINERY PIPELINE OPERATOR Work Phone: Cardiology Comment on above: Fluorsocopy educatio n Start: 06-01-2024 End: 06-01-2024 Telephone encounter Sheba Somers MD Work Phone: Cardiology Comment on above: Patient Question Patient Question; Re turning Patient's Call Start: 05-28-2024 End: 05-28-2024 Patient encounter procedure Stephania Espinoza APRN.REFINERY PIPELINE OPERATOR Work Phone: [facility] Comment on above: Bruising (Primary Dx ) Start: 05-14-2024 End: 05-14-2024 ambulatory Sheba Somers MD Work Phone: Cardiology Start: 05-14-2024 End: 05-14-2024 Patient encounter procedure Sheba Somers MD Work Phone: Cardiology Start: 05-13-2024 Telephone encounter Sheba dominguez MD Work Phone: Cardiology Comment on above: Patient Education Start: 05-11-2024 End: 05-11-2024 Patient encounter procedure Sandy Shetty DO Work Phone: Cardiology Comment on above: S/P TAVR (transcathe ter aortic valve replacement) (Primary Dx); 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 ottawa heart without angina pectoris; MCGOVERN (dyspnea on exertion); Persistent atrial fibrillation (HCC); Primary hypertension; Mixed hyperlipidemia; Chronic pericarditis, unspecified complication status, unspecified type; Cardiac pacemaker; SSS (sick sinus syndrome) (HCC); Chronic diastolic CHF (congestive heart failure) (HCC) Start: 04-29-2024 Gonzalez SEARS RN.[facility] Work Phone: Cardiology Start: 04-19-2024 ambulatory Celine Elizalde RN [facility] Start: 04-19-2024 Patient encounter procedure Celine lEizalde RN [facility] Start: 04-16-2024 End: 04-16-2024 Patient encounter procedure Vicky Bryan PA-C Work Phone: Cardiology Comment on above: Chronic diastolic he art failure (HCC) (Primary Dx); Nonrheumatic aortic valve stenosis; S/P TAVR (transcatheter aortic valve replacement); SSS (sick sinus syndrome) (HCC); Cardiac pacemaker; Paroxysmal atrial fibrillation (HCC); Primary hypertension; 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 ottawa heart without angina pectoris; History of pericarditis; Mixed hyperlipidemia; Stenosis of left renal artery (HCC) Start: 03-05-2024 Telephone encounter Deepak Best APRN.CNP Work Phone: [facility] Comment on above: Results Start: 02-27-2024 Telephone encounter Deepak Best APRN.CNP Work Phone: [facility] Comment on above: Patient Update Start: 02-24-2024 Telephone encounter Garth perez MD Work Phone: Cardiology Comment on above: Results Start: 02-19-2024 Telephone encounter Deepak Best GREGOR.REFINERY PIPELINE OPERATOR Work Phone: [facility] Start: 02-18-2024 End: 02-18-2024 Patient encounter procedure Lynette Ervin GREGOR.REFINERY PIPELINE OPERATOR Work Phone: Cardiology Comment on above: Mixed hyperlipidemia (Primary Dx); Paroxysmal atrial fibrillation (HCC) Primary hypertension (Primary Dx); S/P TAVR (transcatheter aortic valve replacement); Stage 4 chronic kidney disease (HCC); Mixed hyperlipidemia; Obesity, Class II, BMI 35-39.9; Controlled type 2 diabetes mellitus without complication, without long-term current use of insulin (HCC) Start: 02-10-2024 Follow-up encounter Rik stanley MD Work Phone: [facility] Department Start: 02-10-2024 Patient encounter procedure Rik Gregory MD Work Phone: [facility] Start: 02-09-2024 Follow-up encounter Rik stanley MD Work Phone: [facility] Start: 02-09-2024 Patient encounter procedure Rik Gregory MD Work Phone: [facility] Department Start: 02-05-2024 End: 02-05-2024 Admission to same day surgery center Anesthesia Clearance Work Phone: [facility] Work Phone: Start: 02-05-2024 End: 02-05-2024 Patient encounter procedure Anesthesia Clearance Work Phone: Cardiothoracic Comment on above: Encounter for preope rative anesthesiology assessment for cardiac surgery (Primary Dx) Start: 02-05-2024 End: 02-05-2024 Patient encounter procedure Xiao Suazo MD Work Phone: Cardiology Comment on above: AF (paroxysmal atria l fibrillation) (HCC) (Primary Dx) Nonrheumatic aortic valve stenosis (Primary Dx) Start: 02-05-2024 End: 02-05-2024 Subsequent hospital visit by physician Xr Chest Main J1 Work Phone: Radiology Comment on above: Aortic valve disorde r [I35.9] Start: 01-26-2024 ambulatory Precious Ch GREGOR.BIG DATA LEAD Work Phone: Cardiology Comment on above: structural dental cl earance Start: 01-20-2024 End: 01-20-2024 ambulatory Jessica Echeverria WINDER FIXER.REFINERY PIPELINE OPERATOR Work Phone: Cardiology Comment on above: Schedule TAVR Start: 01-20-2024 End: 01-20-2024 Patient encounter procedure Mario Moscoso GREGOR.REFINERY PIPELINE OPERATOR Work Phone: Cardiology Comment on above: Heart failure, unspe cified HF chronicity, unspecified heart failure type (HCC) (Primary Dx); Paroxysmal atrial fibrillation (HCC); Primary hypertension Start: 01-14-2024 Follow-up encounter Rik stanley MD Work Phone: [facility] Start: 01-14-2024 Pacemaker Remote F/U Rik hayden MD Work Phone: [facility] Department Start: 01-14-2024 Telephone encounter Rik stanley MD Work Phone: Cardiology Start: 01-09-2024 Telephone encounter Garth perez MD Work Phone: Cardiology Comment on above: Medication Problem Refill Request Start: 01-07-2024 Refill Garth Hoffman MD Work Phone: Cardiology Comment on above: Refill Request Start: 01-06-2024 Telephone encounter 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 PIPELINE OPERATOR Work Phone: [facility] Start: 12-29-2023 ambulatory Jessica Echeverria APRN.REFINERY PIPELINE OPERATOR Work Phone: Cardiology Comment on above: TAVR Team meeting Start: 12-29-2023 Telephone encounter 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 PIPELINE OPERATOR Work Phone: [facility] Start: 12-15-2023 Telephone encounter Juan crowell MD Work Phone: Cardiology Start: 12-10-2023 Telephone encounter Deepak Best APRN.[facility] Work Phone: Preventive Cardiology Comment on above: Medication Problem Start: 12-08-2023 Telephone encounter Herbie celis MD Work Phone: Cardiology Start: 12-02-2023 Refill Mario SEARS RN.REFINERY PIPELINE OPERATOR Work Phone: Cardiology Start: 11-21-2023 End: 11-21-2023 Emergency department patient visit Dr. Jorge Benavides Work Phone: [facility]-Emergency Department Work Phone: Start: 11-19-2023 End: 11-19-2023 Patient encounter procedure 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 PIPELINE OPERATOR Work Phone: Preventive Cardiology Comment on above: Essential hypertensi on (Primary Dx); Severe aortic stenosis; Mixed hyperlipidemia; Primary hypertension; Obesity, Class II, BMI 35-39.9 Paroxysmal atrial fi brillation (HCC) (Primary Dx); Mixed hyperlipidemia; Essential hypertension; SSS (sick sinus syndrome) (HCC); Chronic pericarditis, unspecified complication status, unspecified type; Cardiac pacemaker; Aortic valve stenosis, etiology of cardiac valve disease unspecified Start: 11-14-2023 Follow-up encounter Rik stanley MD Work Phone: [facility] Start: 11-14-2023 Pacemaker Remote F/U Rik hayden MD Work Phone: [facility] Department Start: 11-12-2023 Telephone encounter Mario jim APRN.REFINERY PIPELINE OPERATOR Work Phone: Cardiology Comment on above: Patient Update Start: 11-07-2023 Refill Mario SEARS RN.REFINERY PIPELINE OPERATOR Work Phone: Cardiology Start: 11-04-2023 End: 11-04-2023 ambulatory MARIO MOSCOSO Facility:[facility] Start: 11-04-2023 End: 11-04-2023 Patient encounter procedure Mario Moscoso APRN.CNP Work Phone: Cardiology Comment on above: Heart failure, unspe cified HF chronicity, unspecified heart failure type (HCC) (Primary Dx); Paroxysmal atrial fibrillation (HCC); Primary hypertension Start: 10-21-2023 End: 10-21-[address] Jorge Benavides Work Phone: [facility] Work Phone: Start: 10-21-2023 End: 10-21-[address] Jorge Benavides Work Phone: [facility]-Laboratory, BIM Start: 10-21-2023 End: 10-21-[address] Jorge Benavides Work Phone: [facility] Work Phone: Start: 10-07-2023 End: 10-08-2023 ambulatory MARIO MOSCOSO Facility:[facility] Start: 10-07-2023 End: 10-07-2023 ambulatory MARIO MOSCOSO Facility:[facility] Start: 09-25-2023 End: 09-25-[address] [facility] Work Phone: Start: 09-25-2023 End: 09-25-2023 Discharged Recur[address] [facility]-Physical Therapy Work Phone: Start: 09-15-2023 End: 09-15-2023 ambulatory SANDY SHETTY Facility:[facility] Start: 08-18-[address] Colt Benavides Work Phone: [facility]-Physical Therapy Work Phone: Start: 08-15-2023 Follow-up encounter Rik stanley MD Work Phone: [facility] Start: 08-15-2023 Pacemaker Remote F/U Rik hayden MD Work Phone: [facility] Department Start: 08-14-2023 End: 08-14-[address] Jorge Benavides Work Phone: [facility] Work Phone: Start: 08-14-2023 End: 08-14-[address] Jorge Benavides Work Phone: [facility]-Laboratory Work Phone: Start: 07-31-[address] Colt Benavides Work Phone: [facility]-Physical Therapy Work Phone: Start: 07-30-2023 End: 07-30-[address] Jorge Benavides Work Phone: [facility] Work Phone: Start: 07-30-2023 End: 07-30-[address] [facility] Start: 07-21-2023 Follow-up encounter Rik stanley MD Work Phone: [facility] Start: 07-21-2023 Pacemaker Remote F/U Rik hayden MD Work Phone: [facility] Start: 07-03-2023 Follow-up encounter Xiao bain MD Work Phone: [facility] Start: 07-03-2023 Patient encounter procedure Xiao Suazo MD Work Phone: [facility] Department Start: 06-24-2023 Telephone encounter Rik stanley MD Work Phone: Cardiology Start: 06-18-2023 Telephone encounter Rik stanley MD Work Phone: Cardiology Start: 06-16-2023 Telephone encounter Rik stanley MD Work Phone: Cardiology Comment on above: Patient Question (Justin caldwell is calling. She is following up on if she should be starting Eliquis. She also wanted to know if she could do her pacemaker checks at either [facility] or [facility], would they be sent to Dr. Gregory. Please call [phone]) Start: 06-12-2023 Telephone encounter Rik stanley MD Work Phone: Cardiology Comment on above: Patient Update Start: 06-09-2023 Follow-up encounter Rik stanley MD Work Phone: [facility] Start: 06-09-2023 End: 06-09-2023 Patient encounter procedure Rik Gregory MD Work Phone: [facility] Department Comment on above: AF (paroxysmal atria l fibrillation) (HCC) (Primary Dx); Pacemaker Start: 05-19-2023 End: 05-19-[address] Jorge Benavides Work Phone: [facility] [place] Work Phone: Start: 05-16-2023 Telephone encounter Deepak Best APRN.CNP Work Phone: Prevent[facility] Card[facility] Start: 05-14-2023 End: 05-14-2023 Patient encounter procedure Garth Hoffman MD Work Phone: Cardiology Comment on above: Chronic pericarditis , unspecified complication status, unspecified type (Primary Dx); Stage 3a chronic kidney disease (HCC); Hypertensive heart and chronic kidney disease with heart failure and stage 1 through stage 4 chronic kidney disease, or unspecified chronic kidney disease (HCC); Aortic stenosis Start: 04-21-2023 End: 04-21-[address] Jorge Benavides Work Phone: [facility] Work Phone: Start: 04-21-2023 End: 04-21-[address] Jorge Benavides Work Phone: [facility]-Laboratory, Specimen Work Phone: Start: 04-21-2023 End: 04-21-[address] Jorge Benavides Work Phone: [facility] Internal Medicine Work Phone: Start: 04-14-2023 End: 04-14-[address] Jorge Benavides Work Phone: [facility]-Laboratory Work Phone: Start: 04-03-2023 End: 04-03-[address] Jorge Benavides Work Phone: [facility] Work Phone: Start: 04-03-2023 End: 04-03-[address] Jorge Benavides Work Phone: [facility]-Laboratory Work Phone: Start: 04-02-2023 Telephone encounter Garth perez MD Work Phone: Cardiology Comment on above: Results - Mri Start: 03-25-2023 End: 03-25-[address] Jorge Benavides Work Phone: [facility] Work Phone: Start: 03-25-2023 End: 03-25-[address] Jorge Benavides Work Phone: [facility]-Sleep Lab Work Phone: Start: 03-21-2023 Orders Only Ramirez plata MD Work Phone: Cardiology Comment on above: Cardiomyopathy, unsp ecified type (HCC) Start: 02-10-2023 End: 02-10-[address] Jorge Benavides Work Phone: [facility] Start: 02-06-2023 End: 02-06-2023 Patient encounter procedure Lynette Ervin APRN.CNP Work Phone: Cardiology Comment on above: Essential (primary) hypertension (Primary Dx); Nonrheumatic aortic valve stenosis; Chronic pericarditis, unspecified complication status, unspecified type; Paroxysmal atrial fibrillation (HCC); SSS (sick sinus syndrome) (HCC) Start: 02-06-2023 Telephone encounter Amanda hoyt [facility] Work Phone: Pharmacy Comment on above: Returning Patient's Call Start: 02-05-2023 End: 02-05-2023 ambulatory Chandni Starr [facility] Work Phone: [facility] Start: 02-05-2023 Telephone encounter Jose PALMER Comment on above: Follow Up Phone Call ( f/u 1st attempt/) Transition Of Care ( Pharmacy TCM- Hospital discharge 02/04/23) Start: 02-05-2023 End: 02-05-[address] Jorge Benavides Work Phone: [facility]-Laboratory, Phy Office 3rd Flr Start: 02-04-2023 Orders Only Angelito Cifuentes MD Work Phone: Cardiology Comment on above: Essential (primary) hypertension (Primary Dx) Nonrheumatic aortic valve stenosis (Primary Dx); Chronic pericarditis, unspecified complication status, unspecified type Start: 01-29-2023 End: 01-29-2023 Patient encounter procedure Lynette Ervin REFINERY PIPELINE OPERATOR Work Phone: Cardiology Comment on above: Essential (primary) hypertension (Primary Dx); Nonrheumatic aortic valve stenosis; Chronic pericarditis, unspecified complication status, unspecified type; Stenosis of left renal artery (HCC); Heart failure, unspecified HF chronicity, unspecified heart failure type (HCC); Paroxysmal atrial fibrillation (HCC) Start: 01-23-2023 Non-patient / Non-visit Dr. Bunch Work Phone: [facility] Start: 01-23-2023 End: 01-23-[address] Jorge Benavides Work Phone: [facility]-Breast Imaging - Biopsy/[place] Start: 01-17-2023 Telephone encounter Angelito jim MD Work Phone: Preventive Cardiology Comment on above: Patient Update (Aspi rin script location) Start: 01-16-2023 End: 01-16-[address] Jorge Benavides Work Phone: [facility] Start: 01-10-2023 Telephone encounter Elizabeth guzman WINDER FIXER.REFINERY PIPELINE OPERATOR Work Phone: Preventive Cardiology Comment on above: [facility] Start: 01-01-2023 End: 01-01-[address] Jorge Benavides Work Phone: [facility]-Outpatient Breast Imaging Start: 12-04-2022 Telephone encounter Angelito jmi MD Work Phone: Preventive Cardiology Comment on above: Patient Question (of fice summary note) Start: 12-04-2022 Non-patient / Non-visit Dr. Bunch Work Phone: [facility] Start: 12-03-2022 Non-patient / Non-visit Dr. Bunch Work Phone: [facility] Start: 12-02-2022 Non-patient / Non-visit Dr. Bunch Work Phone: [facility] Start: 12-01-2022 Non-patient / Non-visit Dr. Bunch Work Phone: [facility] Start: 12-01-2022 End: 12-03-2022 Evaluation and management of inpatient Dr. Jorge Benavides Work Phone: [facility] Start: 11-30-2022 End: 11-30-2022 Office outpatient visit 15 minutes Shaggy Weston APRN.REFINERY PIPELINE OPERATOR Work Phone: [facility] Comment on above: Urine retention (Dao lynette Dx); Dysuria Start: 11-28-2022 End: 11-28-2022 Subsequent hospital visit by physician Mri Main J (I-Stat/1.5t) MRI J Comment on above: Canceled (Pt cx: [place] ointment Conflict) Start: 11-27-2022 End: 11-27-2022 Patient encounter procedure Angelito Cifuentes MD Work Phone: [facility] Comment on above: Primary hypertension (Primary Dx); Obesity, Class II, BMI 35-39.9; Controlled type 2 diabetes mellitus without complication, without long-term current use of insulin (HCC) Start: 11-12-2022 End: 11-12-[address] [facility] Start: 10-28-2022 End: 10-28-[address] Noris Youngblood Work Phone: [facility] Work Phone: Start: 10-28-2022 End: 10-28-[address] Noris Youngblood Work Phone: [facility] Start: 09-05-2022 End: 09-05-[address] Noris Youngblood Work Phone: [facility] Work Phone: Start: 09-05-2022 End: 09-05-[address] Noris Youngblood Work Phone: [facility]-Laboratory, Phy Office 3rd Flr Start: 08-06-2022 End: 08-06-[address] Noris Youngblood Work Phone: [facility] Start: 07-26-2022 Non-patient / Non-visit Dr. Armando Shi Work Phone: [facility] Start: 07-26-2022 End: 07-26-[address] Noris Youngblood Work Phone: [facility] Work Phone: Start: 07-26-2022 End: 07-26-[address] Nor[facility] Youngblood [facility] Start: 07-15-2022 End: 07-15-[address] Noris Younglbood Work Phone: [facility] Work Phone: Start: 07-15-2022 End: 07-15-[address] Noris Youngblood Work Phone: [facility] Start: 06-19-2022 End: 06-19-[address] Noris Youngblood Work Phone: [facility] Start: 06-17-2022 End: 06-17-[address] Nor[facility] Youngblood [facility] Start: 06-11-2022 End: 06-11-[address] Noris Youngblood Work Phone: [facility] Start: 05-30-2022 Follow-up encounter Kristina peace MD, PhD Work Phone: [facility] Start: 05-30-2022 End: 05-30-2022 Patient encounter procedure Kristina Figueroa MD, PhD Work Phone: [facility] Comment on above: Nonrheumatic aortic valve stenosis (Primary Dx); Paroxysmal atrial fibrillation (HCC); SSS (sick sinus syndrome) (HCC); Chronic pericarditis, unspecified complication status, unspecified type; Primary hypertension; Heart failure, unspecified (HCC) SOB (shortness of br eath); H/O pericarditis ; Chest pain, unspecified type; Essential (primary) hypertension ; Back pain, unspecified back location, unspecified back pain laterality, unspecified chronicity Start: 05-30-2022 End: 05-30-2022 Subsequent hospital visit by physician Laura Sparks 2 (I-Stat/1.5t) Work Phone: MRI J Comment on above: SOB (shortness of eat) [R06.02] Start: 05-20-2022 End: 05-20-[address] Noris Youngblood Work Phone: [facility] Work Phone: Start: 05-20-2022 End: 05-20-[address] Noris Youngblood Work Phone: [facility] Start: 05-08-2022 Telephone encounter Garth perez MD Work Phone: Cardiology Comment on above: Results, Lab Start: 04-24-2022 Telephone encounter Garth perez MD Work Phone: Cardiology Comment on above: Results Start: 04-15-2022 End: 04-15-[address] Noris Youngblood Work Phone: [facility] Start: 04-07-2022 Non-patient / Non-visit Dr. Armando Shi Work Phone: [facility] Start: 04-06-2022 Non-patient / Non-visit Dr. Armando Shi Work Phone: [facility] Start: 04-02-2022 Non-patient / Non-visit Dr. Armando Shi Work Phone: [facility] Start: 04-01-2022 Non-patient / Non-visit Dr. Armando Shi Work Phone: [facility] Start: 04-01-2022 End: 04-08-2022 Non-patient / Non-visit Dr. Noris Youngblood Work Phone: [facility] Start: 03-29-2022 Non-patient / Non-visit Dr. Armando Shi Work Phone: [facility] Start: 03-28-2022 End: 04-08-2022 Evaluation and management of inpatient Dr. Noris Youngblood Work Phone: [facility] Start: 03-26-2022 End: 03-28-2022 Evaluation and management of inpatient DR KEITH RODRIGEZ MD [facility] Start: 03-19-2022 End: 03-19-[address] Noris Youngblood Work Phone: [facility] Start: 03-12-2022 End: 03-12-[address] KEITH RODRIGEZ MD [facility] Start: 03-04-2022 Refill Emeli Espinosa ams WINDER FIXER.REFINERY PIPELINE OPERATOR Work Phone: Cardiology Comment on above: Refill Request Start: 02-26-2022 End: 02-26-2022 Patient encounter procedure Hayde Elaine WINDER FIXER.REFINERY PIPELINE OPERATOR Work Phone: [facility] Comment on above: Encounter for immuni zation (Primary Dx); Dog scratch Start: 02-18-2022 Telephone encounter Garth perez MD Work Phone: Cardiology Comment on above: Post Dc Program Call - Needs Attn Start: 02-15-2022 Telephone encounter Garth perez MD Work Phone: Cardiology Comment on above: Results Start: 02-11-2022 End: 02-11-2022 Nursing evaluation of patient and report Nurse Card Admin [facility] Work Phone: Cardiology Comment on above: Screening for ischem ic heart disease (Primary Dx) Start: 02-11-2022 End: 02-11-2022 Subsequent hospital visit by physician Injection Nm [facility] Work Phone: Nuclear Medicine Comment on above: SOB (shortness of br eath) [R06.02] Start: 01-22-2022 End: 01-22-2022 Subsequent hospital visit by physician Bone Density [facility] Work Phone: Radiology Start: 01-14-2022 End: 01-14-2022 Patient encounter procedure [facility] Start: 12-10-2021 End: 12-10-2021 Subsequent hospital visit by physician Noris Youngblood MD Work Phone: [facility] Comment on above: Arrived Start: 12-05-2021 End: 12-05-2021 Patient encounter procedure [facility], Phy Office 3rd Flr Start: 10-08-2021 End: 10-29-2021 Discharged Recurring [facility] Start: 09-25-2021 End: 09-29-2021 Discharged Recurring [facility] Start: 08-03-2021 End: 08-03-2021 Subsequent hospital visit by physician Leidy Benz MD Work Phone: [facility] Start: 07-25-2021 End: 07-25-2021 Subsequent hospital visit by physician Noris Youngblood MD Work Phone: [facility] Start: 03-08-2021 End: 03-08-2021 Subsequent hospital visit by physician Leidy Benz MD Work Phone: [facility] Start: 12-08-2020 End: 12-08-2020 Subsequent hospital visit by physician Noris Youngblood Work Phone: [facility] Comment on above: Encounter for screen ing mammogram for malignant neoplasm of breast Start: 11-01-2020 End: 11-01-2020 Subsequent hospital visit by physician Leidy Benz Work Phone: [facility] Start: 08-23-2020 Evaluation and management of inpatient ULNA FELICIANO Facility:[facility] Start: 08-17-2020 End: 08-17-2020 Subsequent hospital visit by physician Leidy Benz Work Phone: [facility] Start: 07-27-2020 End: 07-27-2020 Subsequent hospital visit by physician Leidy Benz Work Phone: [facility] Start: 06-03-2020 End: 06-03-2020 Subsequent hospital visit by physician Leidy Benz Work Phone: [facility] Start: 04-27-2020 End: 04-27-2020 Subsequent hospital visit by physician Leidy Benz Work Phone: [facility] Laboratory Start: 04-14-2020 End: 04-14-2020 Subsequent hospital visit by physician Trung Ng Work Phone: [facility] Comment on above: Status post total le ft knee replacement Start: 04-11-2020 End: 04-11-2020 Subsequent hospital visit by physician Noris Youngblood Work Phone: [facility] Laboratory Start: 03-07-2020 End: 03-07-2020 Subsequent hospital visit by physician Leidy Benz Work Phone: [facility] Start: 03-01-2020 End: 03-01-2020 Subsequent hospital visit by physician Catalina Carpenter Work Phone: [address] Nuclear Medicine Comment on above: Shortness of breath Start: 12-06-2019 End: 12-06-2019 Subsequent hospital visit by physician Noris Youngblood Work Phone: [facility] Comment on above: Arrived Start: 11-17-2019 End: 11-17-2019 Subsequent hospital visit by physician Leidy Benz Work Phone: [facility] Laboratory Start: 09-30-2019 End: 09-30-2019 Subsequent hospital visit by physician Noris Youngblood MD Work Phone: [facility] Start: 09-17-2019 End: 09-17-2019 Subsequent hospital visit by physician Trung Ng MD Work Phone: [facility] Start: 08-23-2019 End: 08-23-2019 Subsequent hospital visit by physician Leidy Benz Work Phone: [facility] Laboratory Start: 08-02-2019 End: 08-02-2019 Subsequent hospital visit by physician Leidy Benz Work Phone: [facility] Vascular Lab Comment on above: Arrived Start: 07-19-2019 End: 07-19-2019 Subsequent hospital visit by physician Leidy Benz Work Phone: [facility] Laboratory Start: 06-07-2019 End: 06-07-2019 Subsequent hospital visit by physician Leidy Benz Work Phone: [facility] Laboratory Start: 06-04-2019 End: 06-04-2019 Subsequent hospital visit by physician Noris Youngblood Work Phone: [facility] Start: 05-24-2019 End: 05-24-2019 Subsequent hospital visit by physician Catalina Carpenter Work Phone: [facility] Comment on above: Localized edema Start: 08-02-2018 End: 08-02-2018 Patient encounter procedure [facility] RAMANA[facility] Facility:[facility] Start: 07-01-2018 Patient encounter PAUL Powers [facility] Start: 12-31-2017 End: 01-01-2018 Patient encounter procedure [facility] RAMANAVAR[facility] Facility:[facility] Start: 09-17-2017 End: 09-18-2017 Patient encounter procedure [facility] RAMANAVAR[facility]U Facility:[facility] Start: 06-26-2017 Ambulatory SUZIE LEBRON Facili ty:[id number] Procedures Date Procedure Procedure Detail Performing Clinician Start: 07-21-2025 Total iron binding c apacity measurement Dr. Jorge Benavides MD Work Phone: Start: 07-13-2025 Serum inorganic phos phate measurement Dr. Jorge Benavides MD Work Phone: Start: 07-08-2025 US scan of gallbladder Dr. Jorge Benavides MD Work Phone: Start: 07-08-2025 Urine microscopy: red cells Dr. Jorge Benavides MD Work Phone: Start: 07-08-2025 Urnls dip stick/tabl et reagent auto microscopy Dr. Jorge Benavides MD Work Phone: Start: 07-08-2025 CT of abdomen and pe lvis without contrast Dr. Jorge Benavides MD Work Phone: Start: 07-07-2025 Plain chest X-ray Dr. Tosin Benavides MD Work Phone: Start: 07-07-2025 Mean corpuscular hem oglobin concentration determination Dr. Jorge Benavides MD Work Phone: Start: 07-07-[address] Alivia GERBER Work Phone: Start: 07-07-2025 Nucleated red blood cell count procedure Dr. Jorge Benavides MD Work Phone: Start: 07-07-2025 Platelet mean volume determination Dr. Jorge Benavides MD Work Phone: Start: 07-07-2025 Tri[address]ol lipa se measurement Dr. Jorge Benavides MD Work Phone: Start: 07-04-[address] e fraction Dr. Jorge Benavides MD Work Phone: Start: 07-04-2025 Mean corpuscular hem oglobin concentration determination Dr. Jorge Benavides MD Work Phone: Start: 07-04-[address] Alivia GERBER Work Phone: Start: 07-04-2025 Nucleated red blood cell count procedure Dr. Jorge Benavides MD Work Phone: Start: 07-04-2025 Platelet mean volume determination Dr. Jorge Benavides MD Work Phone: Start: 07-04-2025 Total iron binding c apacity measurement Dr. Jorge Benavides MD Work Phone: Start: 06-08-2025 Mean corpuscular hem oglobin concentration determination Dr. Jorge Benavieds MD Work Phone: Start: 06-08-2025 Platelet mean volume determination Dr. Jorge Benavides MD Work Phone: Start: 06-08-2025 Serum inorganic phos phate measurement Dr. Jorge Benavides MD Work Phone: Start: 05-31-2025 Blood [facility] w/mnl difrntl wbc count Dr. Jorge Benavides MD Work Phone: Start: 05-31-[address] e fraction Dr. Jorge Benavides MD Work Phone: Start: 05-31-2025 Mean corpuscular hem oglobin concentration determination Dr. Jorge Benavides MD Work Phone: Start: 05-31-[address] Alivia GERBER Work Phone: Start: 05-31-2025 Nucleated red blood cell count procedure Dr. Jorge Benavides MD Work Phone: Start: 05-31-2025 Platelet mean volume determination Dr. Jorge Benavides MD Work Phone: Start: 05-31-2025 Total iron binding c apacity measurement Dr. Jorge Benavides MD Work Phone: Start: 05-19-2025 Measurement of occul t blood in gastric fluid specimen Dr. Jorge Benavides MD Work Phone: Start: 05-19-2025 Measurement of occul t blood in stool specimen using immunoassay Dr. Jorge Benavides MD Work Phone: Start: 05-13-2025 [facility] w/mnl difrntl wbc count Dr. Jorge Benavides MD Work Phone: Start: 05-13-2025 Mean corpuscular hem oglobin concentration determination Dr. Jorge Benavides MD Work Phone: Start: 05-13-[address] Alivia GERBER Work Phone: Start: 05-13-2025 Nucleated red blood cell count procedure Dr. Jorge Benavides MD Work Phone: Start: 05-13-2025 Platelet mean volume determination Dr. Jorge Benavides MD Work Phone: Start: 04-13-[address] Jorge Benavides MD Work Phone: Start: 04-13-2025 Serum inorganic phos phate measurement Dr. Jorge Benavides MD Work Phone: Start: 04-13-2025 Vitamin D, 25-hydrox y measurement Dr. Jorge Benaivdes MD Work Phone: Comment on above: Vitamin D StatusDefi ciency: <20 ng/mL (50nmol/L)Insufficiency: 20-30 ng/mL (50-75 nmol/L)Sufficiency: 30-100 ng/mL (75-250 nmol/L)Toxicity: >100 ng/mL (>250 nmol/L) Start: 02-22-2025 Plain X-ray of tibia and fibula Dr. Jorge Benavides MD Work Phone: Start: 02-22-2025 Blood count smear mc rscp w/mnl difrntl wbc count Dr. Jorge Benavides MD Work Phone: Start: 02-22-[address] Jorge Benavides MD Work Phone: Start: 02-22-2025 Mean corpuscular hem oglobin concentration determination Dr. Jorge Benavides MD Work Phone: Start: 02-22-2025 Nucleated red blood cell count procedure Dr. Jorge Benavides MD Work Phone: Start: 02-22-2025 Platelet mean volume determination Dr. Jorge Benavides MD Work Phone: Start: 02-05-2025 Serum inorganic phos phate measurement Dr. Jorge Benavides MD Work Phone: Start: 01-07-2025 Cl[address] diff[address] e detection Dr. Jorge Benavides MD Work Phone: Start: 01-07-[address] Jorge Benavides MD Work Phone: Start: 12-22-2024 [address]ium diff[address] e detection Dr. Jorge Benavides MD Work Phone: Start: 12-22-2024 End: 12-22-2024 Giardia lamblia antigen assay Dr. Jorge Benavides MD Work Phone: Start: 12-22-[address] Jorge Benavides MD Work Phone: Start: 12-22-2024 Measurement of occul t blood in stool specimen using immunoassay Dr. Jorge Benavides MD Work Phone: Start: 12-22-[address] Jorge Benavides MD Work Phone: Start: 12-22-[address] parasites identification [address] Jorge Benavides MD Work Phone: Start: 12-22-2024 Ova&parasites direct smears concentration & id Dr. Jorge Benavides MD Work Phone: Start: 12-20-2024 Other BP Soft Tissue Dr Carolin Benavides MD Work Phone: Start: 12-20-2024 Dr. Jorge Benavides MD Work Phone: Start: 12-17-2024 Blood count smear rscp w/mnl difrntl wbc count Dr. Jorge Benavides MD Work Phone: Start: 12-17-2024 Mean corpuscular hem oglobin concentration determination Dr. Jorge Benavides MD Work Phone: Start: 12-17-2024 Nucleated red blood cell count procedure Dr. Jorge Benavides MD Work Phone: Start: 12-17-2024 Platelet mean volume determination Dr. Jorge Benavides MD Work Phone: Start: 11-17-2024 Urnls dip stick/tabl et reagent auto microscopy Dr. Jorge Benavides MD Work Phone: Start: 11-17-[address] Colt Benavides MD Work Phone: Start: 11-17-2024 Anion gap measurement Monica Benavieds MD Work Phone: Start: 11-17-2024 BUN/Creatinine ratio Dr Carolin Benavides MD Work Phone: Start: 11-17-[address] Jorge Benavides MD Work Phone: Start: 11-17-2024 Measurement of renal function Dr. Jorge Benavides MD Work Phone: Start: 11-17-2024 Blood count smear mc rscp w/mnl difrntl wbc count Dr. Jorge Benavides MD Work Phone: Start: 11-17-2024 Mean corpuscular hem oglobin concentration determination Dr. Jorge Benavides MD Work Phone: Start: 11-17-2024 Nucleated red blood cell count procedure Dr. Jorge Benavides MD Work Phone: Start: 11-17-2024 Platelet mean volume determination Dr. Jorge Benavides MD Work Phone: Start: 11-16-2024 CT of head without contrast Dr. Jorge Benavides MD Work Phone: Start: 11-16-[address] Carolin Benavides MD Work Phone: Start: 11-16-[address] Jorge Benavides MD Work Phone: Start: 11-16-2024 Total iron binding c apacity measurement Dr. Jorge Benavides MD Work Phone: Start: 11-16-2024 Assay of phosphorus inorganic Dr. Jorge Benavides MD Work Phone: Start: 10-20-2024 End: 10-20-2024 Assay of phosphorus inorganic Dr. Jorge Benavides MD Work Phone: Start: 10-20-2024 BUN/Creatinine ratio Dr Carolin Benavides MD Work Phone: Start: 10-20-2024 Measurement of renal function Dr. Jorge Benavides MD Work Phone: Start: 10-20-2024 Dual energy X-ray absorptiometry Dr. Jorge Benavides MD Work Phone: Start: 02-10-2024 PACEMAKER REMOTE CHECK Rik Gregory MD Work Phone: Start: 02-09-2024 PACEMAKER CLINIC CHECK Rik Gregory MD Work Phone: Start: 02-09-2024 PACEMAKER CLINIC CHECK Rik Gregory MD Work Phone: Start: 01-14-2024 PACEMAKER REMOTE CHECK Rik Gregory MD Work Phone: Start: 11-21-2023 Plain chest X-ray Dr. Tosin Benavides Work Phone: Start: 11-21-2023 SARS-CoV-2, Influenz a & RSV (PCR) Dr. Jorge Benavides Work Phone: Start: 11-14-2023 PACEMAKER REMOTE CHECK Rik Gregory MD Work Phone: Start: 08-15-2023 PACEMAKER REMOTE CHECK Rik Gregory MD Work Phone: Start: 07-21-2023 PACEMAKER REMOTE CHECK Rik Gregory MD Work Phone: Start: 07-03-2023 PACEMAKER CLINIC CHECK Xiao Suazo MD Work Phone: Start: 06-09-2023 PACEMAKER CLINIC CHECK Rik Gregory MD Work Phone: Start: 04-21-[address] Colt Benavides Work Phone: Start: 01-23-[address] Bunch Work Phone: Start: 01-01-[address] Bunch Work Phone: Start: 01-01-2023 Screening mammography D igor Benavides Work Phone: Start: 12-01-2022 Plain chest X-ray Dr. Tosin Benavides Work Phone: Start: 11-30-2022 Urnls dip stick/tabl et rgnt auto w/o microscopy Hayde Henry WINDER FIXER.REFINERY PIPELINE OPERATOR Work Phone: Start: 05-30-2022 Echo tthrc r-t 2d w/ wom-mode compl spec&colr d Garth Hoffman MD Work Phone: Start: 05-30-2022 Cardiac mri w/wo con trast & further seq Garth Hoffman MD Work Phone: Start: 05-30-2022 PACEMAKER CLINIC CHECK Kristina Figueroa MD, PhD Work Phone: Start: 03-26-2022 Structure of left kn ee (body structure) DR KEITH RODRIGEZ MD Start: 02-11-2022 Myocardial spect mul tiple studies Garth Hoffman MD Work Phone: Start: 01-22-2022 Dxa bone density asha dy 1/> sites axial skel Noris Youngblood Work Phone: Start: 12-10-2021 Screening digital br east tomosynthesis bi Noris Youngblood MD Work Phone: Start: 08-03-2021 Renal function panel Juni Benz MD Work Phone: Start: 07-25-2021 End: 07-25-2021 Comprehensive metabolic panel Noris Youngblood MD Work Phone: Start: 07-25-2021 Lipid panel Noris lin MD Work Phone: Start: 03-08-2021 End: 03-08-2021 Renal function panel [employer] Work Phone: Start: 12-08-2020 Screening digital br east tomosynthesis bi Noris N Rylie Work Phone: Start: 11-01-2020 Creatinine other source Datinder Demar Work Phone: Start: 11-01-2020 Protein total xcpt refractometry urine Datinder Demar Work Phone: Start: 11-01-2020 25 hydroxy includes fractions if performed Datinder Demar Work Phone: Start: 11-01-2020 Assay of parathormone D atcooper Demar Work Phone: Start: 11-01-2020 Blood count complete auto&auto difrntl wbc [employer] Demar Work Phone: Start: 11-01-2020 Renal function panel Da tinder Demar Work Phone: Start: 08-17-2020 Renal function panel Da tinder Demar Work Phone: Start: 07-27-2020 Creatinine other source Datinder Demar Work Phone: Start: 07-27-2020 Protein total xcpt refractometry urine Datcooper Demar Work Phone: Start: 07-27-2020 Blood count complete auto&auto difrntl wbc [employer] Demar Work Phone: Start: 07-27-2020 25 hydroxy includes fractions if performed Datinder Demar Work Phone: Start: 07-27-2020 Assay of parathormone D atcooper Demar Work Phone: Start: 07-27-2020 Renal function panel Da tinder Demar Work Phone: Start: 06-03-2020 Renal function panel Da tinder Demar Work Phone: Start: 04-27-2020 Creatinine other source Datinder Demar Work Phone: Start: 04-27-2020 Protein total xcpt refractometry urine [employer]ol[employer]oper Demar Work Phone: Start: 04-27-2020 Blood count complete auto&auto difrntl wbc [employer] Demar Work Phone: Start: 04-27-2020 Renal function panel Da sandra Benz Work Phone: Start: 04-14-2020 Radiologic exam both knees standing anteropost Trung Ng Work Phone: Start: 04-14-2020 Radiologic examinati on knee 1/2 views Trung Ng Work Phone: Start: 04-11-2020 Comprehensive metabo lic panel Noris Youngblood Work Phone: Start: 03-07-2020 Renal function panel Da sandra Benz Work Phone: Start: 03-01-2020 Myocardial spect mul tiple studies Catalina Carpenter Work Phone: Start: 11-17-2019 Creatinine other source [employer] Work Phone: Start: 11-17-2019 Protein total xcpt refractometry urine [employer] Work Phone: Start: 11-17-2019 25 hydroxy includes fractions if performed [employer] Work Phone: Start: 11-17-2019 Assay of parathormone D [employer] Work Phone: Start: 11-17-2019 Blood count complete auto&auto difrntl wbc Sumbolacooper Demar Work Phone: Start: 11-17-2019 Renal function panel Da sandra Donahueo Work Phone: Start: 09-30-2019 Radiologic exam ches t 2 views Noris Youngblood MD Work Phone: Start: 09-17-2019 Radiologic examinati on knee 1/2 views Trung Ng MD Work Phone: Start: 08-23-2019 Renal function panel Da sandra Benz Work Phone: Start: 08-02-2019 Dup-scan artl lauren abdl/pel/scrot&/rpr orgn com Rated People Phone: Start: 07-19-2019 Blood count complete auto&auto difrntl wbc easy[employer] Work Phone: Start: 07-19-2019 Renal function panel Da Basketball [place] [employer] Phone: Start: 06-07-2019 Prothrombin time Noris Jim Mary Kaysam Work Phone: Start: 06-07-2019 Thromboplastin time partial plasma/whole blood Noris Diandra Santiagocale Work Phone: Start: 06-07-2019 Assay of folic acid serum Noris Jim Mary Kaysam Work Phone: Start: 06-07-2019 Comprehensive metabo lic panel Noris Jim Rylie Work Phone: Start: 06-07-2019 Cyanocobalamin vitamin b-12 Noris Jim Rylie Work Phone: Start: 06-07-2019 Iron binding capacity P edmar Youngblood Work Phone: Start: 06-07-2019 25 hydroxy includes fractions if performed Rated People Phone: Start: 06-07-2019 Assay of parathormone D [employer] Phone: Start: 06-07-2019 End: 06-07-2019 Blood count complete auto&auto difrntl wbc [employer] Work Phone: Start: 06-07-2019 Renal function panel [employer] [place] [employer] Phone: Start: 06-07-2019 Creatinine other source Rated People Phone: Start: 06-07-2019 Protein total xcpt refractometry urine Rated People Phone: Start: 06-04-2019 Radiologic exam ches t 2 views Noris Jim Mary Kaysam Work Phone: Start: 05-24-2019 Echo tthrc r-t 2d w/ wom-mode compl spec&colr d Catalina Barbra Carpenter Work Phone: Hysterectomy DR KEITH Plata MD Pacemaker catheter, device (physical object) DR KEITH RODRIGEZ MD Tonsillectomy DR KEITH ARAMBULA MD Total knee replacement DR MATTHEW GERBER Comment on above: LEFT Urine culture Dr. Noris ibarra Work Phone: Urine culture Dr. Noris ibarra Work Phone: Plan of Treatment Date Care Activity Detail Author Start: 12-23-2025 Hepatitis B surface antibody level LDL Cholesterol [facility] Start: 11-11-2025 Hepatitis B surface antibody level LDL Cholesterol [facility] Start: 08-24-2025 End: 08-24-2025 Patient encounter procedure 08/24/2025 10:00 AM EST Office Visit [facility]iology [address] [place] [address] Domenic Serrano APRN.REFINERY PIPELINE OPERATOR [address] [place] [address] 6MN FU [facility] Comment on above: 6MN FU Start: 08-22-2025 End: 08-22-2025 Patient encounter procedure Cardiology Comment on above: follow up Start: 08-08-2025 Reticulocyte count [facility] Start: 07-21-2025 -Laboratory Work Phone: Start: 07-21-2025 -[facility] Start: 07-19-2025 Radionuclide study of abdomen [facility] Start: 07-19-2025 -Nuclear Medicine WC H Work Phone: Start: 07-13-2025 End: 07-13-2025 -Laboratory Work Phone: Start: 07-11-2025 End: 07-11-2025 -[facility] Work Phone: Start: 07-08-[address] [facility] Start: 07-07-2025 End: 07-07-[address] [facility] Start: 07-04-[address] [facility] Start: 06-23-2025 End: 06-23-2025 ambulatory 06/23/2025 8:00 AM EDT [facility] Cardiology [address] [place] [id number] Sheba Somers MD [address] [place] [id number] DX: S/P TAVR Cardiology Comment on above: DX: S/P TAVR Start: 06-22-2025 -Sleep Lab Work Phone: Start: 06-22-2025 -[facility] Work Phone: Start: 06-21-2025 End: 06-21-2025 -[facility] Work Phone: Start: 06-20-2025 End: 06-20-2025 ambulatory 06/20/2025 11:30 AM EDT [facility] Cardiology [address] [place] [id number] Sheba Somers MD [address] [place] [id number] DX: S/P TAVR Cardiology Comment on above: DX: S/P TAVR Start: 06-16-2025 End: 06-16-2025 Patient encounter procedure 06/16/2025 2:00 PM EDT Appointment Cardiology Lab [address] [place] [address] S/P TAVR (transcatheter aortic valve replacement) [Z95.2] Cardiology Lab Comment on above: S/P TAVR (transcatheter aortic valve rep lacement) [Z95.2] Start: 05-31-2025 End: 05-31-2025 ambulatory 05/31/2025 11:00 AM EDT [facility] Cardiology [address] [place] [id number] Sheba Somers MD [address] [place] [address] S/P TAVR (transcatheter aortic valve replacement) Cardiology Comment on above: S/P TAVR (transcatheter aortic valve rep lacement) Start: 05-30-2025 Influenza vaccination Influenza Vaccine (#1) [facility] Start: 05-17-2025 US scan of bladder [facility] Start: 05-13-2025 End: 05-13-2025 Evaluation of diagnostic study results [facility] Start: 02-24-2025 End: 02-24-2025 Patient encounter procedure 02/24/2025 3:15 PM EDT Office Visit Cardiology [address] [place] [id number] Sheba Somers MD [address] [place] [address] S/P TAVR (transcatheter aortic valve replacement) Cardiology Comment on above: S/P TAVR (transcatheter aortic valve rep lacement) Start: 02-22-[address] [facility] Start: 02-17-2025 End: 05-19-2025 CBC panel - Blood by Automated count COMPLETE BLOOD COUNT Lab Routine Mixed hyperlipidemia Paroxysmal atrial fibrillation (HCC) Expected: 02/17/2025, Expires: 05/19/2025 [facility] Comment on above: Expected: 02/17/2025, Expires: Start: 02-17-2025 End: 05-19-2025 Comprehensive metabolic 2000 panel - Serum or Plasma COMPREHENSIVE METABOLIC PANEL Lab Routine Mixed hyperlipidemia Paroxysmal atrial fibrillation (HCC) Expected: 02/17/2025, Expires: 05/19/2025 [facility] Work Phone: Comment on above: Expected: 02/17/2025, Expires: Start: 02-17-2025 End: 05-19-2025 Lipid 1996 panel - Serum or Plasma LIPID PANEL BASIC Lab Routine Mixed hyperlipidemia Paroxysmal atrial fibrillation (HCC) Expected: 02/17/2025, Expires: 05/19/2025 [facility] Comment on above: Expected: 02/17/2025, Expires: Start: 02-17-2025 End: 05-19-2025 Natriuretic peptide.B prohormone N-Terminal [Mass/volume] in Serum or Plasma NT PRO BNP Lab Routine Mixed hyperlipidemia Paroxysmal atrial fibrillation (HCC) Expected: 02/17/2025, Expires: 05/19/2025 [facility] Comment on above: Expected: 02/17/2025, Expires: Start: 02-07-2025 End: 02-07-2025 Patient encounter procedure 02/07/2025 10:00 AM EDT Office Visit Preventive Cardiology [address] [place] [address] Domenic Serrano APRN.REFINERY PIPELINE OPERATOR [address] [place] [address] 3 month follow up Preventive Cardiology Comment on above: 3 month follow up Start: 01-04-2025 End: 04-05-2025 Basic metabolic 2000 panel - Serum or Plasma BASIC METABOLIC PANEL Lab Routine Chronic diastolic congestive heart failure (HCC) Expected: 01/04/2025, Expires: 04/05/2025 [facility] Work Phone: Comment on above: Expected: 01/04/2025, Expires: Start: 01-04-2025 End: 04-05-2025 Magnesium [Mass/volume] in Serum or Plasma MAGNESIUM Lab Routine Chronic diastolic congestive heart failure (HCC) Expected: 01/04/2025, Expires: 04/05/2025 [facility] Comment on above: Expected: 01/04/2025, Expires: Start: 01-04-2025 End: 04-05-2025 Natriuretic peptide.B prohormone N-Terminal [Mass/volume] in Serum or Plasma NT PRO BNP Lab Routine Chronic diastolic congestive heart failure (HCC) Expected: 01/04/2025, Expires: 04/05/2025 [facility] Comment on above: Expected: 01/04/2025, Expires: Start: 01-04-2025 End: 01-04-2025 Patient encounter procedure 01/04/2025 11:30 AM EDT Office Visit Cardiology [address] [address] Mera Hudson APRN.REFINERY PIPELINE OPERATOR [address] [place] [address] 6 week follow up Cardiology Comment on above: 6 week follow up Start: 12-28-2024 Covid-19 Vaccine () Covid-19 Vaccine () [facility] Start: 12-22-2024 Giardia Antigen (PAUL) Giardia Antigen (PAUL) [facility] Start: 12-22-2024 Ova and Parasites Ova and Parasites [facility] Start: 12-22-2024 Elastase.pancreatic [Presence] in Stool [facility] Start: 12-22-2024 Protein measurement [facility] Start: 12-22-[address] [facility] Start: 12-10-2024 End: 03-11-2025 Hepatic function 1999 panel - Serum or Plasma HEPATIC FUNCTION PNL Lab Routine Coronary artery disease due to lipid rich plaque Expected: 12/10/2024, Expires: 03/11/2025 [facility] Comment on above: Expected: 12/10/2024, Expires: Start: 12-10-2024 End: 03-11-2025 LIPID PANEL, NONFASTING LIPID PANEL, NONFASTING Lab Routine Coronary artery disease due to lipid rich plaque Expected: 12/10/2024, Expires: 03/11/2025 [facility] Work Phone: Comment on above: Expected: 12/10/2024, Expires: Start: 12-09-2024 Patient referral [facility] Work Phone: Start: 12-07-2024 End: 03-08-2025 Hepatic function 2000 panel - Serum or Plasma HEPATIC FUNCTION PNL Lab Routine Coronary artery disease due to lipid rich plaque Expected: 12/07/2024, Expires: 03/08/2025 [facility] Comment on above: Expected: 12/07/2024, Expires: Start: 11-23-2024 End: 11-23-2024 Patient encounter procedure 11/23/2024 11:00 AM EST Office Visit Cardiology [address] [address] Sandy Shetty DO [address] [place] [address] 6 month follow up Cardiology Comment on above: 6 month follow up Start: 11-19-2024 Hepatitis B surface antibody level LDL Cholesterol [facility] Start: 11-17-2024 Patient discharge [facility] Start: 11-17-2024 Referral to water tanker driver [facility] Start: 11-16-2024 Cardiac monitoring [facility] Start: 11-16-2024 Catheterization of vein [facility] Start: 11-16-2024 Elevation of head of bed [facility] Start: 11-16-[address] [facility] Start: 11-16-2024 Notification of physician [facility] Start: 11-16-2024 Tobacco use cessation education [facility] Start: 11-16-[address] [facility] Start: 11-16-2024 Dual pressure spontaneous ventilation support [facility] Start: 11-16-2024 Following clinical pathway protocol [facility] Start: 11-16-2024 Assessment of risk of venous thromboembolism [facility] Start: 11-16-2024 Care regimes management [facility] Start: 11-16-2024 Continuous pulse oximetry [facility] Start: 11-16-2024 Inhalation therapy procedure [facility] Start: 11-16-2024 Insertion of catheter into peripheral vein [facility] Start: 11-16-2024 Introduction of urinary catheter [facility] Start: 11-16-2024 Measuring intake and output [facility] Start: 11-16-2024 Notification of physician [facility] Start: 11-16-2024 Oxygen therapy [facility] Start: 11-16-2024 Providing care according to standard [facility] Start: 11-16-2024 Provision of activity privileges [facility] Start: 11-16-2024 Referral to service [facility] Start: 11-16-2024 End: 11-16-[address] [facility] Start: 11-16-2024 Admission procedure [facility] Start: 11-10-2024 End: 02-09-2025 Basic metabolic 2000 panel - Serum or Plasma BASIC METABOLIC PANEL Lab Routine Primary hypertension Expected: 11/10/2024, Expires: 02/09/2025 [facility] Work Phone: Comment on above: Expected: 11/10/2024, Expires: Start: 11-10-2024 End: 11-10-2024 Patient encounter procedure Cardiology Comment on above: POST PCI Dx: Mixed hyperlipid emia [E78.2 (ICD-10-CM)] Start: 11-09-2024 End: 02-08-2025 Lipid 1996 panel - Serum or Plasma LIPID PANEL BASIC Lab Routine Coronary artery disease due to lipid rich plaque Expected: 11/09/2024, Expires: 02/08/2025 [facility] Work Phone: Comment on above: Expected: 11/09/2024, Expires: Start: 11-09-2024 End: 11-09-2024 Patient encounter procedure 11/09/2024 11:00 AM EST Office Visit Cardiology [address] [place] [address] Razia Clements MD [address] [place] [address] [phone] 6 month follow up Cardiology Comment on above: 6 month follow up Start: 09-29-2024 Advance Directive Discussion Advance Directive Discussion [facility] Start: 09-29-2024 Medicare Advantage Annual Wellness Visit Medicare Advantage Annual Wellness Visit [facility] Start: 08-13-2024 End: 08-13-2024 Patient encounter procedure 08/13/2024 2:45 PM EST Office Visit [facility]iology [address] [place] [address] Angelito Cifuentes MD [address] [place] [address] Dx: Mixed hyperlipidemia [E78.2 (ICD-10-CM)] [facility] Comment on above: Dx: Mixed hyperlipidemia [E78.2 (ICD-10- CM)] Start: 06-24-2024 End: 06-24-2024 Patient encounter procedure Cardiology Comment on above: follow up device check Start: 05-30-2024 Covid-19 Vaccine () Covid-19 Vaccine () [facility] Start: 05-30-2024 Covid-19 Vaccine () Covid-19 Vaccine () [facility] Start: 05-30-2024 Influenza vaccination Influenza Vaccine (#1) [facility] Start: 05-14-2024 End: 05-14-2024 Admission to same day surgery center 05/14/2024 7:09 PM EDT - 05/14/2024 9:13 PM EDT Surgery HOSP Chef'S Assistant [address] [place] [address] Sheba Somers MD [address] [place] [address] INSERT INTRACORONARY STENT-PER MAJOR VESSEL OR BRANCH HOSP Chef'S Assistant Comment on above: INSERT INTRACORONARY STENT-PER MAJOR VES ELSA OR BRANCH Start: 05-14-2024 End: 05-14-2024 Prq trluml coronary stent w/angio one art/brnch INSERT INTRACORONARY STENT-PER MAJOR VESSEL OR BRANCH 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 ottawa heart without angina pectoris 05/14/2024 7:09 PM EDT RUBBER STAMP MAKER Start: 05-14-2024 Subsequent hospital visit by physician 05/14/2024 7:09 PM EDT Hospital Encounter HOSP Chef'S Assistant [address] [place] [address] Sheba Somers MD [address] [place] [address] 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 ottawa heart without angina pectoris [I25.10] HOSP Chef'S Assistant Comment on above: 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 ottawa heart without angina pectoris [I25.10] Start: 05-14-2024 End: 05-14-2024 Admission to same day surgery center 05/14/2024 3:20 PM EDT - 05/14/2024 5:24 PM EDT Surgery HOSP Chef'S Assistant [address] [place] [address] Sheba Somers MD [address] [place] [address] INSERT INTRACORONARY STENT-PER MAJOR VESSEL OR BRANCH [facility] Chef'S Assistant Comment on above: INSERT INTRACORONARY STENT-PER MAJOR VES ELSA OR BRANCH Start: 05-14-2024 End: 05-14-2024 Prq trluml coronary stent w/angio one art/brnch INSERT INTRACORONARY STENT-PER MAJOR VESSEL OR BRANCH 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 ottawa heart without angina pectoris 05/14/2024 3:20 PM EDT RUBBER STAMP MAKER Start: 05-14-2024 Subsequent hospital visit by physician 05/14/2024 3:20 PM EDT Hospital Encounter HOSP Chef'S Assistant [address] [place] [address] Sheba Somers MD [address] [place] [address] 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 ottawa heart without angina pectoris [I25.10] [facility] Chef'S Assistant Comment on above: 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 ottawa heart without angina pectoris [I25.10] Start: 05-14-2024 Hepatitis B surface antibody level LDL CHOLESTEROL [facility] Start: 05-14-2024 End: 05-14-2024 ambulatory 05/14/2024 11:30 AM EDT Procedure Cardiology [address] [place] [address] Sheba Somers MD [address] [place] [address] DX:Coronary artery disease Cardiology Comment on above: DX:Coronary artery disease Start: 05-14-2024 End: 05-14-2024 ambulatory 05/14/2024 7:30 AM EDT Procedure Cardiology [address] [place] [address] Sheba Somers MD [address] [place] [address] DX:Coronary artery disease Cardiology Comment on above: DX:Coronary artery disease Start: 05-14-2024 End: 05-14-2024 Patient encounter procedure 05/14/2024 7:00 AM EDT Office Visit Admitting [address] [place] [address] ADMIT Admitting Comment on above: ADMIT Start: 05-11-2024 End: 05-11-2024 Patient encounter procedure Cardiology Comment on above: 7 month follow up Start: 04-16-2024 End: 04-16-2024 ambulatory [facility] J1-4 Dra estuardo Syed Comment on above: LAB S/P TAVR Start: 04-16-2024 End: 04-16-2024 Patient encounter procedure Vascular Med icine Comment on above: S/P TAVR Start: 04-13-2024 End: 04-13-2024 Patient encounter procedure 04/13/2024 1:40 PM EDT Office Visit Cardiology [address] [place] [address] Sandy Shetty DO [address] [place], [place] [id number] 7 month follow up Cardiology Comment on above: 7 month follow up Start: 02-27-2024 End: 05-28-2024 Basic metabolic 2000 panel - Serum or Plasma BASIC METABOLIC PANEL Lab Routine SOB (shortness of breath) Expected: 02/27/2024, Expires: 05/28/2024 [facility] Work Phone: Comment on above: Expected: 02/27/2024, Expires: Start: 02-27-2024 End: 05-28-2024 Natriuretic peptide.B prohormone N-Terminal [Mass/volume] in Serum or Plasma NT PRO BNP Lab Routine SOB (shortness of breath) Expected: 02/27/2024, Expires: 05/28/2024 [facility] Comment on above: Expected: 02/27/2024, Expires: Start: 02-18-2024 End: 02-18-2024 Patient encounter procedure Cardiology Comment on above: Dx: Pericarditis; Mixed hyperlipidemia Dx: Mixed hyperlipid emia [E78.2 (ICD-10-CM)] Start: 02-17-2024 End: 02-17-2024 Patient encounter procedure 02/17/2024 9:00 AM EDT Appointment Cardiology Lab [address] [place] [address] Shetty Cardiology Lab Comment on above: Echo per Dr Shetty Start: 02-10-2024 End: 02-10-2024 Patient encounter procedure 02/10/2024 10:00 AM EDT Appointment Cardiology Lab [address] [place] [address] Shetty Cardiology Lab Comment on above: Echo per Dr Shetty Start: 02-09-2024 End: 02-09-2024 Patient encounter procedure Cardiology Comment on above: pacemaker check + est care Start: 02-09-2024 End: 02-09-2024 Patient encounter procedure 02/09/2024 7:45 AM EDT Office Visit Cardiology [address] [place] [address] COMMERCIAL TF- TAVR S3 Cardiology Comment on above: COMMERCIAL TF- TAVR S3 Start: 02-09-2024 End: 02-09-2024 Admission to same day surgery center Admitting Comment on above: TRANSCATHETER AORTIC VALVE REPLACEMENT ( TAVR/JAILENE) W/ PROSTHETIC VALVE PERCUTANEOUS FEMORAL ARTERY APPROACH Start: 02-09-2024 End: 02-09-2024 Replace aortic valve perq femoral artry approach STACIA SINGER CT & VAS Start: 02-09-2024 Subsequent hospital visit by physician Admitting Comment on above: Nonrheumatic aortic valve stenosis [I35. 0] Start: 02-09-2024 End: 02-09-2024 ambulatory 02/09/2024 7:30 AM EDT Procedure Cardiology [address] [place] [address] COMMERCIAL TF- TAVR S3 Cardiology Comment on above: COMMERCIAL TF- TAVR S3 Start: 02-05-2024 End: 02-05-2024 Patient encounter procedure 02/05/2024 1:20 PM EDT Office Visit Cardiothoracic [address] [place] [id number] COMMERCIAL TF- TAVR S3 Cardiothoracic Comment on above: COMMERCIAL TF- TAVR S3 Start: 02-05-2024 End: 02-05-2024 Patient encounter procedure 02/05/2024 10:15 AM EDT Appointment Radiology [address] [place] [id number] COMMERCIAL TF- TAVR S3 Radiology Comment on above: COMMERCIAL TF- TAVR S3 Start: 02-05-2024 End: 02-05-2024 Patient encounter procedure Cardiology Comment on above: Reschedule from [facility] PACEMAKER COMMERCIAL TF- TAVR S3 Start: 02-05-2024 End: 02-05-2024 ambulatory Cardiology Comment on above: COMMERCIAL TF- TAVR S3 Start: 01-20-2024 End: 04-20-2024 CBC W Auto Differential panel - Blood COMPLETE BLOOD COUNT AND DIFFERENTIAL Lab STAT Aortic valve disorder Expected: 01/20/2024, Expires: 04/20/2024 [facility] Comment on above: Expected: 01/20/2024, Expires: Start: 01-20-2024 End: 04-20-2024 Comprehensive metabolic 2000 panel - Serum or Plasma COMPREHENSIVE METABOLIC PANEL Lab STAT Aortic valve disorder Expected: 01/20/2024, Expires: 04/20/2024 [facility] Comment on above: Expected: 01/20/2024, Expires: Start: 01-20-2024 End: 04-20-2024 CONFIRM BLOOD TYPE CONFIRM BLOOD TYPE Blood Bank Routine Aortic valve disorder Expected: 01/20/2024, Expires: 04/20/2024 [facility] Comment on above: Expected: 01/20/2024, Expires: Start: 01-20-2024 End: 04-20-2024 Natriuretic peptide.B prohormone N-Terminal [Mass/volume] in Serum or Plasma NT PRO BNP Lab STAT Aortic valve disorder Expected: 01/20/2024, Expires: 04/20/2024 [facility] Comment on above: Expected: 01/20/2024, Expires: Start: 01-20-2024 End: 04-20-2024 PT panel - Platelet poor plasma by Coagulation assay PROTHROMBIN TIME Lab STAT Aortic valve disorder Expected: 01/20/2024, Expires: 04/20/2024 [facility] Work Phone: Comment on above: Expected: 01/20/2024, Expires: Start: 01-20-2024 End: 04-20-2024 TYPE AND SCREEN,30 DAY TYPE AND SCREEN,30 DAY Blood Bank Routine Aortic valve disorder Expected: 01/20/2024, Expires: 04/20/2024 [facility] Comment on above: Expected: 01/20/2024, Expires: Start: 11-28-2023 Hepatitis B screening URINE ALBUMIN:CREATININE RATIO [facility] Start: 11-28-2023 Hepatitis B surface antibody level LDL CHOLESTEROL [facility] Start: 11-21-[address] [facility] Start: 11-21-[address] [facility] Start: 11-21-2023 Bacteria identified in Urine by Culture [facility] Start: 11-14-2023 End: 05-14-2024 C reactive protein [Mass/volume] in Serum or Plasma C-REACTIVE PROTEIN (CRP) Lab Routine Chronic pericarditis, unspecified complication status, unspecified type Expected: 11/14/2023, Expires: 05/14/2024 [facility] Work Phone: Comment on above: Expected: 11/14/2023, Expires: Start: 11-14-2023 End: 05-14-2024 CBC W Auto Differential panel - Blood CBC + DIFF Lab Routine Chronic pericarditis, unspecified complication status, unspecified type Expected: 11/14/2023, Expires: 05/14/2024 [facility] Work Phone: Comment on above: Expected: 11/14/2023, Expires: Start: 11-14-2023 End: 05-14-2024 Comprehensive metabolic 2000 panel - Serum or Plasma COMP METABOLIC PANEL Lab Routine Chronic pericarditis, unspecified complication status, unspecified type Expected: 11/14/2023, Expires: 05/14/2024 [facility] Work Phone: Comment on above: Expected: 11/14/2023, Expires: Start: 11-14-2023 End: 05-14-2024 Erythrocyte sedimentation rate SED RATE WESTERGREN Lab Routine Chronic pericarditis, unspecified complication status, unspecified type Expected: 11/14/2023, Expires: 05/14/2024 [facility] Work Phone: Comment on above: Expected: 11/14/2023, Expires: Start: 11-14-2023 End: 05-14-2024 Lipid 1996 panel - Serum or Plasma LIPID PANEL BASIC Lab Routine Chronic pericarditis, unspecified complication status, unspecified type Stage 3a chronic kidney disease (HCC) Expected: 11/14/2023, Expires: 05/14/2024 [facility] Work Phone: Comment on above: Expected: 11/14/2023, Expires: Start: 11-14-2023 End: 05-14-2024 Natriuretic peptide.B prohormone N-Terminal [Mass/volume] in Serum or Plasma NT PRO BNP Lab Routine Chronic pericarditis, unspecified complication status, unspecified type Hypertensive heart and chronic kidney disease with heart failure and stage 1 through stage 4 chronic kidney disease, or unspecified chronic kidney disease (HCC) Expected: 11/14/2023, Expires: 05/14/2024 [facility] Work Phone: Comment on above: Expected: 11/14/2023, Expires: Start: 09-29-2023 Advance Directive Discussion Advance Directive Discussion [facility] [place] Start: 09-29-2023 Behavioral Health Screening Behavioral Health Screening [facility] [place] Start: 09-29-2023 Depression Assessment Depression Assessment [facility] [place] Start: 08-02-2023 Hemoglobin A1c measurement HbA1C [facility] Start: 08-02-2023 Hemoglobin A1c/Hemoglobin.total in Blood HBA1C [facility] [place] Start: 05-30-2023 Covid-19 Vaccine ( season) Covid-19 Vaccine () [facility] [place] Start: 05-30-2023 Influenza vaccination [facility] [place] Start: 04-21-2023 Patient referral [facility] Work Phone: Start: 02-07-2023 End: 04-09-2023 Basic metabolic 2000 panel - Serum or Plasma BASIC METABOLIC PNL Lab Routine Essential (primary) hypertension Nonrheumatic aortic valve stenosis Chronic pericarditis, unspecified complication status, unspecified type Paroxysmal atrial fibrillation (HCC) SSS (sick sinus syndrome) (HCC) Expected: 02/07/2023, Expires: 04/09/2023 [facility] Work Phone: Comment on above: Expected: 02/07/2023, Expires: 3 Start: 02-04-2023 End: 04-06-2023 Basic metabolic 2000 panel - Serum or Plasma [facility] Work Phone: Comment on above: Expected: 02/04/2023, Expires: 3 Start: 02-04-2023 End: 04-06-2023 CBC panel - Blood by Automated count CBC Lab Routine Essential (primary) hypertension Expected: 02/04/2023, Expires: 04/06/2023 [facility] Work Phone: Comment on above: Expected: 02/04/2023, Expires: 3 Start: 01-23-2023 Bx breast w/device 1st lesion stereotactic guid BX BREAST 1ST LESION [facility] Start: 01-23-2023 Bx breast w/device addl lesion stereotact guid BX BREAST ADD LESION [facility] Start: 01-09-2023 Hepatitis B surface antibody level LDL CHOLESTEROL [facility] Start: 12-11-2022 End: 02-10-2023 Basic metabolic 2000 panel - Serum or Plasma BASIC METABOLIC PNL Lab Routine Primary hypertension Expected: 12/11/2022, Expires: 02/10/2023 [facility] Work Phone: Comment on above: Expected: 12/11/2022, Expires: 3 Start: 12-04-2022 Patient referral [facility] Work Phone: Start: 12-03-2022 Patient discharge [facility] Start: 12-02-2022 Catheterization of vein [facility] Start: 12-02-2022 Medication not administered [facility] Start: 12-02-2022 Notification of physician [facility] Start: 12-02-2022 Preoperative care [facility] Start: 12-02-[address] [facility] Start: 12-01-2022 Application of intermittent pneumatic compression device [facility] Start: 12-01-2022 Referral to fire alarm operator [facility] Start: 12-01-2022 Following clinical pathway protocol [facility] Start: 12-01-2022 Assessment of risk of venous thromboembolism [facility] Start: 12-01-2022 Care regimes management [facility] Start: 12-01-2022 Insertion of catheter into peripheral vein [facility] Start: 12-01-2022 Measuring intake and output [facility] Start: 12-01-2022 Notification of physician [facility] Start: 12-01-2022 Oxygen therapy [facility] Start: 12-01-2022 Providing care according to standard [facility] Start: 12-01-2022 Provision of activity privileges [facility] Start: 12-01-2022 Tobacco use cessation education [facility] Start: 12-01-[address] [facility] Start: 12-01-2022 Electrocardiographic procedure [facility] Start: 12-01-2022 Verification routine [facility] Start: 12-01-2022 Admission procedure [facility] Start: 12-01-2022 Patient referral to dietitian [facility] Start: 11-27-2022 End: 01-27-2023 ALBUMIN/CREAT RATIO EVA GONZALEZ [facility] Work Phone: Comment on above: Expected: 11/27/2022, Expires: 3 Start: 11-27-2022 End: 01-27-2023 Basic metabolic 2000 panel - Serum or Plasma BASIC METABOLIC PNL Lab Routine Primary hypertension Expected: 11/27/2022, Expires: 01/27/2023 [facility] Work Phone: Comment on above: Expected: 11/27/2022, Expires: 3 Start: 11-27-2022 End: 05-30-2023 C reactive protein [Mass/volume] in Serum or Plasma C-REACTIVE PROTEIN (CRP) Lab Routine Nonrheumatic aortic valve stenosis Paroxysmal atrial fibrillation (HCC) SSS (sick sinus syndrome) (HCC) Chronic pericarditis, unspecified complication status, unspecified type Primary hypertension Expected: 11/27/2022, Expires: 05/30/2023 [facility] Work Phone: Comment on above: Expected: 11/27/2022, Expires: Start: 11-27-2022 End: 05-30-2023 C reactive protein [Mass/volume] in Serum or Plasma by High sensitivity method C-REACTIVE ULTRA SEN Lab Routine Nonrheumatic aortic valve stenosis Paroxysmal atrial fibrillation (HCC) SSS (sick sinus syndrome) (HCC) Chronic pericarditis, unspecified complication status, unspecified type Primary hypertension Expected: 11/27/2022, Expires: 05/30/2023 [facility] Work Phone: Comment on above: Expected: 11/27/2022, Expires: 3 Start: 11-27-2022 End: 06-29-2023 Cardiac mri for velocity flow mapping MRI CARDIAC VELOCITY FLOW MAP Radiology Routine Nonrheumatic aortic valve stenosis Paroxysmal atrial fibrillation (HCC) SSS (sick sinus syndrome) (HCC) Chronic pericarditis, unspecified complication status, unspecified type Primary hypertension Heart failure, unspecified (HCC) Expected: 11/27/2022, Expires: 06/29/2023 [facility] Work Phone: Comment on above: Expected: 11/27/2022, Expires: 3 Start: 11-27-2022 End: 06-29-2023 Cardiac mri w/wo contrast & further seq MRI CARDIAC MORPH FUNC WO/W IVCON Radiology Routine Nonrheumatic aortic valve stenosis Paroxysmal atrial fibrillation (HCC) SSS (sick sinus syndrome) (HCC) Chronic pericarditis, unspecified complication status, unspecified type Primary hypertension Heart failure, unspecified (HCC) Expected: 11/27/2022, Expires: 06/29/2023 [facility] Work Phone: Comment on above: Expected: 11/27/2022, Expires: Start: 11-27-2022 End: 05-30-2023 CBC W Auto Differential panel - Blood CBC + DIFF Lab Routine Nonrheumatic aortic valve stenosis Paroxysmal atrial fibrillation (HCC) SSS (sick sinus syndrome) (HCC) Chronic pericarditis, unspecified complication status, unspecified type Primary hypertension Expected: 11/27/2022, Expires: 05/30/2023 [facility] Work Phone: Comment on above: Expected: 11/27/2022, Expires: Start: 11-27-2022 End: 05-30-2023 Comprehensive metabolic 2000 panel - Serum or Plasma COMP METABOLIC PANEL Lab Routine Nonrheumatic aortic valve stenosis Paroxysmal atrial fibrillation (HCC) SSS (sick sinus syndrome) (HCC) Chronic pericarditis, unspecified complication status, unspecified type Primary hypertension Expected: 11/27/2022, Expires: 05/30/2023 [facility] Work Phone: Comment on above: Expected: 11/27/2022, Expires: Start: 11-27-2022 End: 05-30-2023 Creatine kinase [Enzymatic activity/volume] in Serum or Plasma CK CREATINE KINASE Lab Routine Nonrheumatic aortic valve stenosis Paroxysmal atrial fibrillation (HCC) SSS (sick sinus syndrome) (HCC) Chronic pericarditis, unspecified complication status, unspecified type Primary hypertension Expected: 11/27/2022, Expires: 05/30/2023 [facility] Work Phone: Comment on above: Expected: 11/27/2022, Expires: 3 Start: 11-27-2022 End: 05-30-2023 ECG COMPLETE ECG COMPLETE ECG Routine Nonrheumatic aortic valve stenosis Paroxysmal atrial fibrillation (HCC) SSS (sick sinus syndrome) (HCC) Chronic pericarditis, unspecified complication status, unspecified type Primary hypertension Heart failure, unspecified (HCC) Expected: 11/27/2022, Expires: 05/30/2023 [facility] Work Phone: Comment on above: Expected: 11/27/2022, Expires: Start: 11-27-2022 End: 05-30-2023 Echocardiography ECHO Cardiology Routine Nonrheumatic aortic valve stenosis Paroxysmal atrial fibrillation (HCC) SSS (sick sinus syndrome) (HCC) Chronic pericarditis, unspecified complication status, unspecified type Primary hypertension Heart failure, unspecified (HCC) Expected: 11/27/2022, Expires: 05/30/2023 [facility] Work Phone: Comment on above: Expected: 11/27/2022, Expires: 3 Start: 11-27-2022 End: 05-30-2023 Erythrocyte sedimentation rate SED RATE WESTERGREN Lab Routine Nonrheumatic aortic valve stenosis Paroxysmal atrial fibrillation (HCC) SSS (sick sinus syndrome) (HCC) Chronic pericarditis, unspecified complication status, unspecified type Primary hypertension Expected: 11/27/2022, Expires: 05/30/2023 [facility] Work Phone: Comment on above: Expected: 11/27/2022, Expires: 3 Start: 11-27-2022 End: 05-30-2023 Lipid 1996 panel - Serum or Plasma LIPID PANEL BASIC Lab Routine Nonrheumatic aortic valve stenosis Paroxysmal atrial fibrillation (HCC) SSS (sick sinus syndrome) (HCC) Chronic pericarditis, unspecified complication status, unspecified type Primary hypertension Expected: 11/27/2022, Expires: 05/30/2023 [facility] Work Phone: Comment on above: Expected: 11/27/2022, Expires: 3 Start: 11-27-2022 End: 05-30-2023 Natriuretic peptide.B prohormone N-Terminal [Mass/volume] in Serum or Plasma NT PRO BNP Lab Routine Nonrheumatic aortic valve stenosis Paroxysmal atrial fibrillation (HCC) SSS (sick sinus syndrome) (HCC) Chronic pericarditis, unspecified complication status, unspecified type Primary hypertension Heart failure, unspecified (HCC) Expected: 11/27/2022, Expires: 05/30/2023 [facility] Work Phone: Comment on above: Expected: 11/27/2022, Expires: Start: 11-27-2022 End: 05-30-2023 Thyrotropin [Units/volume] in Serum or Plasma TSH BLD Lab Routine Nonrheumatic aortic valve stenosis Paroxysmal atrial fibrillation (HCC) SSS (sick sinus syndrome) (HCC) Chronic pericarditis, unspecified complication status, unspecified type Primary hypertension Expected: 11/27/2022, Expires: 05/30/2023 [facility] Work Phone: Comment on above: Expected: 11/27/2022, Expires: Start: 11-27-2022 End: 05-30-2023 Thyroxine (T4) free [Mass/volume] in Serum or Plasma T4 FREE/FREE THYROX Lab Routine Nonrheumatic aortic valve stenosis Paroxysmal atrial fibrillation (HCC) SSS (sick sinus syndrome) (HCC) Chronic pericarditis, unspecified complication status, unspecified type Primary hypertension Expected: 11/27/2022, Expires: 05/30/2023 [facility] Work Phone: Comment on above: Expected: 11/27/2022, Expires: Start: 11-27-2022 End: 05-30-2023 Triiodothyronine (T3) Free [Mass/volume] in Serum or Plasma T3 FREE BLD Lab Routine Nonrheumatic aortic valve stenosis Paroxysmal atrial fibrillation (HCC) SSS (sick sinus syndrome) (HCC) Chronic pericarditis, unspecified complication status, unspecified type Primary hypertension Expected: 11/27/2022, Expires: 05/30/2023 [facility] Work Phone: Comment on above: Expected: 11/27/2022, Expires: Start: 11-27-2022 End: 05-30-2023 TROPONIN T TROPONIN T Lab Routine Nonrheumatic aortic valve stenosis Paroxysmal atrial fibrillation (HCC) SSS (sick sinus syndrome) (HCC) Chronic pericarditis, unspecified complication status, unspecified type Primary hypertension Expected: 11/27/2022, Expires: 05/30/2023 [facility] Work Phone: Comment on above: Expected: 11/27/2022, Expires: 3 Start: 10-31-2022 Creatinine measurement Creatinine monitoring [facility] Start: 10-31-2022 Potassium monitoring Potassium monitoring [facility] Start: 10-28-2022 Patient referral [facility] Work Phone: Start: 10-20-2022 COVID-19 VACCINE (6 - Moderna series) COVID-19 VACCINE (6 - Moderna series) [facility] [place] Start: 09-29-2022 ADVANCE DIRECTIVE DISCUSSION ADVANCE DIRECTIVE DISCUSSION [facility] [place] Start: 09-29-2022 DEPRESSION ASSESSMENT DEPRESSION ASSESSMENT [facility] Start: 08-29-2022 End: 05-30-2023 C reactive protein [Mass/volume] in Serum or Plasma C-REACTIVE PROTEIN (CRP) Lab Routine Nonrheumatic aortic valve stenosis Paroxysmal atrial fibrillation (HCC) SSS (sick sinus syndrome) (HCC) Chronic pericarditis, unspecified complication status, unspecified type Primary hypertension Expected: 08/29/2022, Expires: 05/30/2023 [facility] Work Phone: Comment on above: Expected: 08/29/2022, Expires: 3 Start: 08-29-2022 End: 05-30-2023 CBC W Auto Differential panel - Blood CBC + DIFF Lab Routine Nonrheumatic aortic valve stenosis Paroxysmal atrial fibrillation (HCC) SSS (sick sinus syndrome) (HCC) Chronic pericarditis, unspecified complication status, unspecified type Primary hypertension Expected: 08/29/2022, Expires: 05/30/2023 [facility] Work Phone: Comment on above: Expected: 08/29/2022, Expires: 3 Start: 08-29-2022 End: 05-30-2023 Comprehensive metabolic 2000 panel - Serum or Plasma COMP METABOLIC PANEL Lab Routine Nonrheumatic aortic valve stenosis Paroxysmal atrial fibrillation (HCC) SSS (sick sinus syndrome) (HCC) Chronic pericarditis, unspecified complication status, unspecified type Primary hypertension Expected: 08/29/2022, Expires: 05/30/2023 [facility] Work Phone: Comment on above: Expected: 08/29/2022, Expires: Start: 08-29-2022 End: 05-30-2023 Erythrocyte sedimentation rate SED RATE WESTERGREN Lab Routine Nonrheumatic aortic valve stenosis Paroxysmal atrial fibrillation (HCC) SSS (sick sinus syndrome) (HCC) Chronic pericarditis, unspecified complication status, unspecified type Primary hypertension Expected: 08/29/2022, Expires: 05/30/2023 [facility] Work Phone: Comment on above: Expected: 08/29/2022, Expires: Start: 07-25-2022 Creatinine measurement Creatinine monitoring [facility] Work Phone: Start: 07-25-2022 Potassium monitoring Potassium monitoring [facility] Work Phone: Start: 07-11-2022 Hemoglobin A1c/Hemoglobin.total in Blood HBA1C [facility] [place] Start: 05-30-2022 Influenza vaccination INFLUENZA (#1) [facility] Start: 04-08-2022 Patient discharge [facility] Work Phone: Start: 04-07-2022 End: 04-08-[address] [facility] Work Phone: Start: 04-03-[address] [facility] Work Phone: Start: 04-03-2022 Chart related administrative procedure [facility] Work Phone: Start: 04-02-2022 Measuring intake and output [facility] Work Phone: Start: 04-02-2022 End: 04-02-[address] [facility] Work Phone: Start: 04-01-[address] [facility] Work Phone: Start: 04-01-2022 Speech therapy assessment [facility] Work Phone: Start: 03-29-[address] [facility] Work Phone: Start: 03-28-2022 Urinary bladder training [facility] Work Phone: Start: 03-28-[address] [facility] Work Phone: Start: 03-28-2022 Referral to service [facility] Work Phone: Start: 03-28-2022 Admission procedure [facility] Work Phone: Start: 03-28-2022 Patient referral to dietitian [facility] Work Phone: Start: 03-28-2022 Vital signs measurements [facility] Work Phone: Start: 03-28-2022 End: 03-28-[address] [facility] Work Phone: Start: 03-28-2022 Referral to occupational therapist [facility] Work Phone: Start: 03-28-2022 Application of device [facility] Work Phone: Start: 03-28-2022 Incentive spirometry [facility] Work Phone: Start: 03-19-2022 Patient referral [facility] Work Phone: Start: 03-08-2022 Creatinine measurement Creatinine monitoring [facility] Work Phone: Start: 03-08-2022 Potassium monitoring Potassium monitoring [facility] Work Phone: Start: 02-27-2022 Urine microalbumin profile [employer] [facility] Start: 01-14-2022 End: 01-14-2022 Nursing evaluation of patient and report 01/14/2022 Nurse Only Cardiology Vicky Waller, MIN [facility] Start: 11-01-2021 Creatinine measurement Creatinine monitoring [employer] [facility] [place] [place] Start: 11-01-2021 Potassium monitoring Potassium monitoring [employer] [place] [place] Start: 10-22-2021 COVID-19 VACCINE (4 - Booster for Moderna series) COVID-19 VACCINE (4 - Booster for Moderna series) [facility] [place] Start: 10-12-2021 End: 10-12-2021 Nursing evaluation of patient and report 10/12/2021 Nurse Only Cardiology Vicky Waller, MIN [facility] Start: 09-29-2021 ADVANCE DIRECTIVE DISCUSSION ADVANCE DIRECTIVE DISCUSSION [facility] [place] Start: 08-24-2021 Hepatitis B screening URINE ALBUMIN:CREATININE RATIO [facility] [place] Start: 07-27-2021 Creatinine measurement Creatinine monitoring [facility] [place] [place] Start: 07-27-2021 Potassium monitoring Potassium monitoring [facility] [place] [place] Start: 07-13-2021 Creatinine measurement Creatinine monitoring [facility] [place] [place] Start: 07-13-2021 Lipid panel Lipid screen [facility] [place] Start: 07-13-2021 Potassium monitoring Potassium monitoring [facility] [place] Start: 06-15-2021 End: 06-15-2021 Patient encounter procedure 06/15/2021 Office Visit Urogynecology Karla Guerrero, WINDER FIXER - REFINERY PIPELINE OPERATOR [address] [place] [address] [phone] [facility] [place] Start: 06-03-2021 Creatinine measurement Creatinine monitoring [facility] [place] [place] Start: 06-03-2021 Potassium monitoring Potassium monitoring [facility] [place] Start: 05-30-2021 Influenza vaccination Flu vaccine (#1) [facility] Work Phone: Start: 04-22-2021 COVID-19 Vaccine (3 - Booster for Moderna series) COVID-19 Vaccine (3 - Booster for Moderna series) [facility] Start: 04-11-2021 Creatinine measurement Creatinine monitoring [facility] [place] [place] Start: 04-11-2021 Potassium monitoring Potassium monitoring [facility] [place] [place] Start: 03-15-2021 End: 03-15-2021 Nurse Only 03/15/2021 Nurse Only Cardiology [facility]icky Waller, [facility] Start: 12-15-2020 End: 12-15-2020 Office Visit 12/15/2020 Office Visit Urogynecology Victor M Gorman MD [address], [address] [place] [address] [phone] [facility] Urogynecology [place] Start: 12-12-2020 End: 12-12-2020 Procedure visit 12/12/2020 Procedure visit Obstetrics and Gynecology Cindy Diaz MD [address] [place], [address] [place] [address] [phone] [facility] Start: 11-30-2020 End: 11-30-2020 Nurse Only 11/30/2020 Nurse Only Cardiology Vciky Waller, MIN [facility] Start: 11-17-2020 Creatinine measurement Creatinine monitoring [facility] [place] [place] Start: 11-17-2020 Creatinine monitoring Creatinine monitoring [facility] [place] [facility] [place] Start: 11-17-2020 Potassium monitoring Potassium monitoring [facility] [place] Start: 09-14-2020 End: 09-14-2020 Nurse Only 09/14/2020 Nurse Only Cardiology Vicky Waller RN [facility] Start: 08-23-2020 Creatinine monitoring [facility] monitoring [facility] Work Phone: Start: 08-23-2020 Potassium monitoring Potassium monitoring [facility] Work Phone: Start: 08-09-2020 Creatinine monitoring Creatinine monitoring [facility] [place] [facility] [place] Start: 08-09-2020 Potassium monitoring Potassium monitoring [facility] [place] Start: 07-19-2020 Creatinine monitoring Creatinine monitoring [facility] [place] [facility] [place] Start: 07-19-2020 Potassium monitoring Potassium monitoring [facility] [place] Start: 07-10-2020 End: 07-10-2020 Office Visit 07/10/2020 Office Visit Cardiology Paul Youngblood MD [address] [place] [address] [phone] [facility] Start: 06-07-2020 Creatinine monitoring Creatinine monitoring [facility] [place] [facility] [place] Start: 06-07-2020 Potassium monitoring Potassium monitoring [facility] [place] Start: 05-30-2020 Influenza vaccination Flu vaccine (#1) [facility] [place] Start: 05-30-2020 End: 05-30-2020 Nurse Only 05/30/2020 Nurse Only Cardiology Vicky Waller, MIN [facility] Start: 04-17-2020 End: 04-17-2020 Office Visit 04/17/2020 Office Visit Cardiology Catalina Carpenter, WINDER FIXER - REFINERY PIPELINE OPERATOR [address] [place] [address] [phone] [facility] Start: 04-14-2020 End: 04-14-2020 Office Visit 04/14/2020 Office Visit Orthopedic Surgery Trung Ng MD [address] [place] [address] [phone] [facility] [place] Start: 02-08-2020 End: 02-08-2020 Nurse Only 02/08/2020 Nurse Only Cardiology Vicky Waller, MIN [facility] Start: 02-02-2020 Creatinine monitoring Creatinine monitoring [place], [place] Start: 02-02-2020 Potassium monitoring Potassium monitoring [place], [place] Start: 12-25-2019 Pneumococcal 65+ years Vaccine (2 of 2 - PPSV23) Pneumococcal 65+ years Vaccine (2 of 2 - PPSV23) [facility] Start: 12-25-2019 PNEUMOCOCCAL: 65+ (2 - PPSV23 or PCV20) PNEUMOCOCCAL: 65+ (2 - PPSV23 or PCV20) [facility] Start: 12-22-2019 Shingles Vaccine (2 of 2) Shingles Vaccine (2 of 2) [place], [place] Start: 12-17-2019 End: 12-17-2019 Office Visit 12/17/2019 Office Visit Orthopedic Surgery Trung Ng MD [address] [place] [address] [phone] [facility] [place] Start: 12-06-2019 End: 12-06-2019 Appointment 12/06/2019 Appointment Radiology Noris Youngblood MD [address] [place] [address] [phone] [facility] Start: 11-16-2019 End: 11-16-2019 Nurse Only 11/16/2019 Nurse Only Cardiology Vicky Waller RN [facility] Start: 08-23-2019 End: 08-23-2019 Office Visit 08/23/2019 Office Visit Cardiology Paul Youngblood MD [address] [address] [phone] [facility] Start: 07-13-2019 End: 07-13-2019 Nurse Only 07/13/2019 Nurse Only Cardiology Vicky Waller RN [facility] Start: 05-30-2019 Influenza vaccination Flu vaccine (#1) [place] Start: 03-18-2019 Annual Wellness Visit (AWV) Annual Wellness Visit (AWV) [facility] Start: 02-18-2019 Pneumococcal Vaccine: 50+ (2 of 2 - PPSV23) Pneumococcal Vaccine: 50+ (2 of 2 - PPSV23) [facility] Start: 02-18-2019 Pneumococcal Vaccine: 50+ (2 of 2 - PPSV23, PCV20, or PCV21) Pneumococcal Vaccine: 50+ (2 of 2 - PPSV23, PCV20, or PCV21) [facility] Start: 02-18-2019 Pneumococcal Vaccine: 65+ (2 - PPSV23 or PCV20) Pneumococcal Vaccine: 65+ (2 - PPSV23 or PCV20) [facility] Start: 02-18-2019 Pneumococcal Vaccine: 65+ (2 of 2 - PPSV23 or PCV20) Pneumococcal Vaccine: 65+ (2 of 2 - PPSV23 or PCV20) [facility] Start: 02-18-2019 PNEUMOCOCCAL: 65+ (2 - PPSV23 if available, else PCV20) PNEUMOCOCCAL: 65+ (2 - PPSV23 if available, else PCV20) [facility] Start: 02-18-2019 PNEUMOCOCCAL: 65+ (2 - PPSV23 or PCV20) PNEUMOCOCCAL: 65+ (2 - PPSV23 or PCV20) [facility] Start: 02-03-2018 Lipid panel Lipid screen [facility] [place] Start: 02-03-2018 Lipid screen Lipid screen [facility] [place] Start: 2006 BONE DENSITY BONE DENSITY [facility] Start: 2006 PNEUMOVAX AGE 65 AND OVER WITH 5YR LOOKBACK (#1) PNEUMOVAX AGE 65 AND OVER WITH 5YR LOOKBACK (#1) [facility] Start: 01-06-2004 Annual Wellness Visit (AWV) Annual Wellness Visit (AWV) [place] Start: 2001 Hepatitis B Vaccine (1 of 3 - Risk 3-dose series) Hepatitis B Vaccine (1 of 3 - Risk 3-dose series) [facility] Start: 2001 RSV Vaccine (1 - 1-dose 60+ series) RSV Vaccine (1 - 1-dose 60+ series) [facility] Start: 1991 Shingles Vaccine (1 of 2) Shingles Vaccine (1 of 2) [place] Start: 01-06-1960 DTaP/Tdap/Td vaccine (1 - Tdap) DTaP/Tdap/Td vaccine (1 - Tdap) [facility] Start: 01-06-1960 Hepatitis B vaccine (1 of 3 - Risk 3-dose series) Hepatitis B vaccine (1 of 3 - Risk 3-dose series) [place] Start: 01-06-1960 Urine microalbumin profile DTAP,TDAP,TD (1 - Tdap) [facility] Start: 1959 Anxiety Screening Anxiety Screening [facility] Start: 1959 Depression Screening Depression Screening [facility] Start: 1957 COVID-19 Vaccine (1 of 2) COVID-19 Vaccine (1 of 2) [place] Start: 1953 Depression Screen Depression Screen [facility] Start: 01-06-1952 DTaP/Tdap/Td vaccine (1 - Tdap) DTaP/Tdap/Td vaccine (1 - Tdap) [place], [place] Start: 1951 3 comp foot exam completed [facility]AB[facility]OT [facility]AM [facility] Start: 1951 Diabetic foot examination [facility] Start: 1951 Glaucoma screening Dilated Retinal Exam [facility] Start: 1951 Hepatitis C antibody, confirmatory test DILATED RETINAL EXAM [facility] Start: 1947 PNEUMOCOCCAL: 65+ (1 - PCV) PNEUMOCOCCAL: 65+ (1 - PCV) [facility] Start: 1941 Hepatitis C screening Hepatitis C screen [place] Aldosterone [Mass/vo lume] in Serum or Plasma [facility] Bacteria identified in Urine by Culture URINE CULTURE Microbiology Routine Urine retention Ordered: 11/30/2022 [facility] Work Phone: Comment on above: Ordered: 11/30/2022 Basic metabolic 2008 panel with ionized calcium - Serum or Plasma [facility] [place]ARD[place] BIC Routine S/P TAVR (transcatheter aortic valve replacement) Ordered: 02/19/2024 [facility] Work Phone: Comment on above: Ordered: 02/19/2024 CBC W Auto Different ial panel - Blood [facility] CBC W Auto Different ial panel - Blood [facility] End: 01-19-2025 ECG COMPLETE ECG COMPLETE ECG Routine Aortic valve disorder 1 Occurrences starting 01/20/2024 until 01/19/2025 [facility] Comment on above: 1 Occurrences starting 01/20/2024 until 01/19/2025 End: 02-17-2025 ECG COMPLETE ECG COMPLETE ECG Routine Mixed hyperlipidemia Paroxysmal atrial fibrillation (HCC) 1 Occurrences starting 02/18/2024 until 02/17/2025 [facility] Comment on above: 1 Occurrences starting 02/18/2024 until 02/17/2025 ECG COMPLETE ECG COMPLETE ECG Routine Mixed hyperlipidemia Paroxysmal atrial fibrillation (HCC) 02/18/2024 11:53 AM EDT [facility] End: 05-14-2024 Echocardiography ECHO Cardiology Routine Chronic pericarditis, unspecified complication status, unspecified type Aortic stenosis 1 Occurrences starting 05/14/2023 until 05/14/2024 [facility] Work Phone: Comment on above: 1 Occurrences starting 05/14/2023 until 05/14/2024 End: 02-17-2025 Echocardiography ECHO Cardiology Routine Mixed hyperlipidemia Paroxysmal atrial fibrillation (HCC) 1 Occurrences starting 02/18/2024 until 02/17/2025 [facility] Comment on above: 1 Occurrences starting 02/18/2024 until 02/17/2025 End: 02-24-2026 Echocardiography ECHO Cardiology Routine S/P TAVR (transcatheter aortic valve replacement) 1 Occurrences starting 02/24/2025 until 02/24/2026 [facility] Work Phone: Comment on above: 1 Occurrences starting 02/24/2025 until 02/24/2026 Ferritin [Mass/volum e] in Serum or Plasma [facility] Giardia lamblia anti gen assay [facility] Hemoglobin.gastroint estinal [Presence] in Gastric fluid [facility] Iron and Iron bindin g capacity panel - Serum or Plasma [facility] End: 04-19-2024 MRI CARDIAC VELOCITY FLOW MAP MRI CARDIAC VELOCITY FLOW MAP Radiology Routine Cardiomyopathy, unspecified type (HCC) 1 Occurrences starting 03/21/2023 until 04/19/2024 [facility] Work Phone: Comment on above: 1 Occurrences starting 03/21/2023 until 04/19/2024 Natriuretic peptide. B prohormone N-Terminal [Mass/volume] in Serum or Plasma [facility] NM CARDIAC PERF STRESS/PHARM NM CARDIAC PERF STRESS/PHARM Radiology Routine SOB (shortness of breath) H/O pericarditis Chest pain, unspecified type Essential (primary) hypertension Back pain, unspecified back location, unspecified back pain laterality, unspecified chronicity 02/11/2022 11:07 AM EDT [facility] Work Phone: Ova OR parasites identification [facility] Patient Education [facility] Work Phone: Patient referral [facility] Work Phone: End: 06-07-2019 Platelet Aggregation Platelet Aggregation Lab Routine Once for 1 Occurrences starting 06/07/2019 until 06/07/2019 [facility] on above: Once for 1 Occurrences starting 06/07/20 19 until 06/07/2019 Platelet Aggregation Platelet Ag gregation Lab Routine 06/07/2019 8:38 AM EDT [facility]LOOD CELLS, ADULT RED BLOOD CELLS, ADULT Blood Bank Routine Aortic valve disorder 1 Occurrences starting 01/20/2024 [facility] Comment on above: 1 Occurrences starting 01/20/2024 Renin [Enzymatic activity/volume] in Plasma [facility] End: 12-06-2019 Screening digital breast tomosynthesis bi Lakeisha Rafa Digital Screen Bilateral Imaging Routine Once for 1 Occurrences starting 12/06/2019 until 12/06/2019 [facility] [place] Comment on above: Once for 1 Occurrences starting 12/06/19 20 until 12/06/2019 Screening digital br east tomosynthesis bi Lakeisha Rafa Digital Screen Bilateral Imaging Routine 12/06/2019 11:17 AM EDT [facility] Work Phone: [facility] End: 03-09-2026 US Lower extremity vein - bilateral US DVT LOWER BILATERAL Radiology Routine Localized edema Right calf pain 1 Occurrences starting 02/07/2025 until 03/09/2026 [facility] Work Phone: Comment on above: 1 Occurrences starting 02/07/2025 until 03/09/2026 Vitamin D, 25-hydrox y measurement [facility] End: 02-18-2025 XR Chest PA and Lateral XR CHEST 2V FRONTAL/LAT Radiology Routine Aortic valve disorder 1 Occurrences starting 01/20/2024 until 02/18/2025 [facility] Comment on above: 1 Occurrences starting 01/20/2024 until 02/18/2025 XR Chest PA and Lateral XR CHEST 2V FRONTAL/LAT Radiology Routine Aortic valve disorder 02/05/2024 8:27 AM EDT [facility] Work Phone: [facility] Immunizations Immunization Date Immunization Notes Care Provider Fa [facility] 06-29-2024 COVID-19 vaccine, ag e 12+ yr (MODERNA) Sheba Somers MD Work Phone: [facility] 06-29-2024 influenza, high dose seasonal, preservative-free Sheba Somers MD Work Phone: [facility] 06-29-2024 Seasonal trivalent influenza vaccine, adjuvanted, preservative free Dr. Jorge Benavides MD Work Phone: [facility] 06-29-2024 influenza virus vaccine, unspecified formulation Celine Elizalde RN [facility] 07-23-2023 RSV Adult Recombinan t (Arexvy) Dr. Jorge Benavides Work Phone: [facility] 07-04-2023 influenza, injectabl e, quadrivalent, preservative free Dr. Jorge Benavides Work Phone: [facility] 07-04-2023 influenza virus vaccine, unspecified formulation Vicky Bryan PA-C Work Phone: [facility] 06-20-2022 Covid Pfizer Bivalen t Booster Dr. Noris Youngblood Work Phone: [facility] 06-20-2022 Influenza, high dose seasonal Dr. Jorge Benavides MD Work Phone: [facility] 06-20-2022 influenza, high dose seasonal, preservative-free Dr. Noris Youngblood Work Phone: [facility] 06-20-2022 influenza, injectabl e, quadrivalent, preservative free Dr. Jorge Benavides Work Phone: [facility] 06-20-2022 Dr. Jorge eli MD Work Phone: [facility] 06-20-2022 influenza virus vaccine, unspecified formulation Rik Gregory MD Work Phone: [facility] 02-26-2022 tetanus and diphther ia toxoids, adsorbed, preservative free, for adult use (2 Lf of tetanus toxoid and 2 Lf of diphtheria toxoid) Dr. Noris Youngblood Work Phone: [facility] 02-26-2022 tetanus and diphther ia toxoids, adsorbed, preservative free, for adult use (5 Lf of tetanus toxoid and 2 Lf of diphtheria toxoid) Hayde Henry WINDER FIXER.REFINERY PIPELINE OPERATOR Work Phone: [facility] 02-26-2022 TD(adult) unspecifie d formulation Hayde Henry WINDER FIXER.REFINERY PIPELINE OPERATOR Work Phone: [facility] Work Phone: 02-11-2022 SARS-CoV-2 (COVID-19 ) mRNA-[address] KEITH RODRIGEZ MD [facility] 07-17-2021 influenza virus vaccine, unspecified formulation DR KEITH RODRIGEZ MD [facility] 07-17-2021 Influenza, high dose seasonal Dr. Jorge Benavides MD Work Phone: [facility] 07-17-2021 influenza, high dose seasonal, preservative-free Dr. Noris Youngblood Work Phone: [facility] 07-17-2021 Dr. Jorge eli MD Work Phone: [facility] 06-22-2021 SARS-CoV-2 (COVID-19 ) mRNA-[address] KEITH RODRIGEZ MD [facility] 11-23-2020 Covid (Moderna) [facility] 10-26-2020 Covid (Moderna) [facility] Comment on above: Result Comment: 2021: [id number] 07-24-2020 influenza, injectabl e, quadrivalent, preservative free Dr. Jorge Benavides Work Phone: [facility] 07-24-2020 influenza, seasonal, injectable [facility] 06-28-2020 influenza, high dose seasonal, preservative-free [facility] Work Phone: [facility] 05-15-2020 zoster vaccine recombinant [facility] Work Phone: [facility] 10-27-2019 zoster vaccine recombinant [facility] Work Phone: [facility] 06-21-2019 influenza virus vaccine, unspecified formulation DR KEITH RODRIGEZ MD [facility] 06-21-2019 Influenza, high dose seasonal Dr. Jorge Benavides MD Work Phone: [facility] 06-21-2019 influenza, high dose seasonal, preservative-free Dr. Noris Youngblood Work Phone: [facility] 06-21-2019 Dr. Jorge eli MD Work Phone: [facility] 12-24-2018 pneumococcal conjuga te vaccine, 13 valent Catalina Lute [facility] Comment on above: Result Comment: 2021: VIS DATE: 08/03/2015 06-24-2018 Fluad 2018-19 65yr up(PF)45 mcg(15 mcgx3)/0.5 mL intramuscular syringe (flu vac [facility] Work Phone: 05-30-2018 influenza virus vaccine, unspecified formulation DR KEITH RODRIGEZ MD [facility] 05-30-2018 Influenza, high dose seasonal Dr. Jorge Benavides MD Work Phone: [facility] 05-30-2018 influenza, high dose seasonal, preservative-free Catalina Lute [facility] 05-30-2018 Dr. Jorge eli MD Work Phone: [facility] 08-05-2016 influenza virus vaccine, unspecified formulation DR KEITH RODRIGEZ MD [facility] 08-05-2016 Influenza, high dose seasonal Dr. Jorge Benavides MD Work Phone: [facility] 08-05-2016 influenza, high dose seasonal, preservative-free Dr. Noris Youngblood Work Phone: [facility] 08-05-2016 Dr. Jorge eli MD Work Phone: [facility] 08-01-2015 influenza virus vaccine, unspecified formulation DR KEITH RODRIGEZ MD [facility] 08-01-2015 Influenza, high dose seasonal Dr. Jorge Benavides MD Work Phone: [facility] 08-01-2015 influenza, high dose seasonal, preservative-free Dr. Noris Youngblood Work Phone: [facility] 08-01-2015 pneumococcal conjuga te vaccine, 13 valent [facility] Work Phone: [facility] 08-01-2015 Dr. Jorge eli MD Work Phone: [facility] Payers Date Payer Category [place]ayer [place] [id number] 2024 Self-pay [id number] 2024 Medicare [id number] 2023 Unknown [id number] 2017 Unknown BCBS [facility] SUPP xxxxxxxxxxxx 2017-Present [address] [place] [address] xxxxxxxxxxxx [id number] .[id number] 2017 Unknown [id number] 1.2.840.206906.1.13.239.2 .7.3.745241.315 2017 Unknown [id number] 1.2.840.782843.1.13.239.2 .7.3.426756.315 2017 Unknown ANTHEM ANTHEM ME DICARE SUPPLEMENT [id number] 2017-Present [phone] [address] [place] [address] Indemnity [id number] .[id number] 2014 Medicare xxxxxxxxxxx 1.2.840.482731.1.13.239.2 .7.3.431079.315 2005 Medicare 2005 Medicare [id number] 1.2.840.602462.1.13.239.2 .7.3.912019.315 2005 Medicare [id number] 1.2.840.179087.1.13.239.2 .7.3.127062.315 Medicare [id number] Private Health Insurance [id number] Unknown [id number] 2.840.1.052084.3.579.2 .462 Unknown [id number] 2.840.1.179199.3.579.2 .462 Unknown [id number] 2.840.1.163653.3.579.2 .462 Unknown [id number] 2.16840.1.633851.3.579.2 .462 Unknown [id number] 2.840.1.074938.3.579.2 .462 Unknown [id number] .840.1.258739.3.579.2 .462 Unknown [id number] 2.16.840.1.807727.3.579.2 .462 Unknown [id number] 2.16.840.1.060321.3.579.2 .462 Unknown [id number] 2.16.840.1.748167.3.579.2 .462 Unknown [id number] 2.16840.1.307880.3.579.2 .462 Unknown [id number] 2.16840.1.969504.3.579.2 .462 Unknown [id number] 2.840.1.683520.3.579.2 .462 Unknown [id number] 2.840.1.650085.3.579.2 .462 Unknown [id number] 2.840.1.987701.3.579.2 .462 Unknown [id number] 2.840.1.271262.3.579.2 .462 Unknown [id number] 2.840.1.742790.3.579.2 .462 Unknown [id number] 2.840.1.738762.3.579.2 .462 Unknown [id number] 2.840.1.645697.3.579.2 .462 Unknown [id number] 2.840.1.746749.3.579.2 .462 Unknown [id number] 2.840.1.127445.3.579.2 .462 Unknown [id number] 2.16840.1.952938.3.579.2 .462 Unknown [id number] 2.16.840.1.402801.3.579.2 .462 Unknown [id number] 2.16.840.1.596999.3.579.2 .462 Unknown [id number] 2.16840.1.304379.3.579.2 .462 Unknown [id number] 2.16.840.1.312972.3.579.2 .462 Unknown [id number] 2.16.840.1.465163.3.579.2 .462 Unknown [id number] 2.16.840.1.642673.3.579.2 .462 Unknown [id number] 2.16.840.1.758239.3.579.2 .462 Unknown [id number] 2.16.840.1.128645.3.579.2 .462 Unknown [id number] 2..840.1.668792.3.579.2 .462 Unknown [id number] 2..840.1.055706.3.579.2 .462 Unknown [id number] 2..840.1.495063.3.579.2 .462 Unknown [id number] 2.840.1.586683.3.579.2 .462 Unknown [id number] 2.840.1.570797.3.579.2 .462 Unknown [id number] 2.840.1.145729.3.579.2 .462 Unknown [id number] 2.16.840.1.030425.3.579.2 .462 Unknown [id number] 2.16840.1.266661.3.579.2 .462 Unknown [id number] 2.840.1.806083.3.579.2 .462 Unknown [id number] 2.16.840.1.007422.3.579.2 .462 Unknown [id number] 2.16.840.1.678078.3.579.2 .462 Unknown [id number] 2.16.840.1.859391.3.579.2 .462 Unknown [id number] 2.16.840.1.715748.3.579.2 .462 Unknown [id number] 2.16.840.1.629161.3.579.2 .462 Unknown [id number] 2.16.840.1.896668.3.579.2 .462 Unknown [id number] 2.16.840.1.051550.3.579.2 .462 Unknown [id number] 2.16.840.1.372973.3.579.2 .462 Unknown [id number] 2.16.840.1.111674.3.579.2 .462 Unknown [id number] 2.16.840.1.166302.3.579.2 .462 Unknown [id number] 2.16.840.1.551083.3.579.2 .462 Unknown [id number] 2.16.840.1.359300.3.579.2 .462 Unknown [id number] 2.16.840.1.665572.3.579.2 .462 Unknown [id number] 2.16.840.1.888894.3.579.2 .462 Unknown [id number] 2.16.840.1.177165.3.579.2 .462 Unknown [id number] 2.16.840.1.954207.3.579.2 .462 Unknown [id number] 2.16.840.1.725594.3.579.2 .462 Unknown [id number] 2.16.840.1.511280.3.579.2 .462 Unknown [id number] 2.16.840.1.776706.3.579.2 .462 Social History Date Type Detail Facility Start: 05-18-2019 End: 07-07-2025 Tobacco smoking status NHIS Never smoker [place] Start: 05-18-2019 End: 01-29-2023 Alcohol intake No [facility] Work Phone: Start: 1940 Sex Assigned At Not on file [place] Start: 09-17-2019 End: 02-24-2025 Alcohol intake Current non-drinker of alcohol (finding) [place] Exposure to SARS-CoV -2 (event) Unable to assess [facility] Start: 03-21-2020 End: 09-15-2023 Tobacco use and exposure [facility] Start: 12-30-2021 End: 05-30-2022 Exposure to SARS-CoV-2 (event) Not sure [place] Start: 08-23-2020 End: 11-21-2023 Tobacco smoking status NHIS Unknown if ever smoked [facility] Start: 02-15-2018 None [facility] Start: 08-13-2020 Spouse/ Signif icant Other [facility] Start: 08-13-2020 Non-smoker [facility] Start: 1940 Sex Assigned At Female W [facility] Work Phone: Start: 08-25-2020 History SDOH Financial 5 [facility] Start: 08-25-2020 History SDOH Food Worry 1 [facility] Start: 08-25-2020 History SDOH Transpo rt Med 2 [facility] Start: 01-29-2023 End: 05-14-2023 History of Social function [facility] Work Phone: Start: 08-30-2012 How hard is it for y ou to pay for the very basics like food, housing, medical care, and heating Not hard at all [facility] Work Phone: (I/We) worried wheth er (my/our) food would run out before (I/we) got money to buy more. Never true [facility] Work Phone: Start: 12-07-2024 End: 01-13-2025 Sex Female (finding) [facility] Medical Equipment Procedure Code Equipment Code Equipment Origin al Text Equipment Identifier Dates [id number] Sara Xt [id number] Start: 07-01-2018 Device Angio-Sea l Vip Bondek-Plus 8fr .038in Polyglyd 70cm Closure - [id number] Start: 02-09-2024 Valve Balderas Sa pien 3 Ultra System 23mm - [id number] Start: 02-09-2024 [id number] Simon Goff [id number]_[facility] Start: 07-01-2018 [id number] [employer] [place] [id number]_[facility] Start: 07-01-2018 Goals Date Patient Goal Desired Activity /State Personal health goal Functional Status Date Assessment Result Facility 11-17-2024 Functional status Ambulates [facility] Work Phone: 05-15-2024 Are you deaf, or do you have serious difficulty hearing No 05/15/2024 9:35 AM Debora Meza RN No [facility] 05-15-2024 Are you blind, or do you have serious difficulty seeing, even when wearing glasses No 05/15/2024 9:35 AM Debora Meza RN No [facility] 05-15-2024 Do you have serious difficulty walking or climbing stairs No 05/15/2024 9:35 AM Debora Meza RN No [facility] 05-15-2024 Do you have difficul ty dressing or bathing No 05/15/2024 9:35 AM Debora Meza RN [facility] 05-15-2024 Because of a physica l, mental, or emotional condition, do you have difficulty doing errands alone such as visiting a physician's office or shopping No 05/15/2024 9:35 AM Debora Meza RN No [facility] 12-03-2022 Functional status Ambulates;Bath room Privilege [facility] Work Phone: 04-08-2022 Functional status Activity Abili ty Independent [facility] Work Phone: 04-06-2022 Functional status Standard Walker [facility] Work Phone: 04-04-2022 Functional status Patient Activity Ambula jose [facility] Work Phone: 03-28-2022 Functional Status Door open, Room check performed [facility] 03-28-2022 Functional Status [facility] [place] 03-28-2022 Functional Status Breakfast Percent [facility] 03-28-2022 Functional Status Supervised Angelo Wilkins [facility] 03-28-2022 Functional Status Angelo Wilkins [facility] 03-28-2022 Functional Status Angelo Wilkins [facility] 03-28-2022 Functional Status Angelo Wilkins [facility] 03-28-2022 Functional Status Minimum assistance [facility] 03-27-2022 Functional Status Ambulation in Room [facility] 03-27-2022 Functional Status Angelo Wilkins [facility] 03-27-2022 Functional Status Angelo Wilkins [facility] 03-27-2022 Functional Status Angelo Wilkins [facility] 03-27-2022 Functional Status Multilevel home [facility] 03-26-2022 Functional Status Dinner Percent 50 [facility] 03-26-2022 Functional Status None Angelo Wilkins [facility] 03-26-2022 Functional Status Angelo Wilkins [facility] 03-26-2022 Functional Status NPO Status Maintained [facility] 03-26-2022 Functional Status Angelo Wilkins [facility] 03-12-2022 Functional Status Sensory Deficits None [facility] Mental Status Date Assessment Result Facility 07-21-2025 Cognitive function Awake [facility] Work Phone: 07-07-2025 Cognitive function Voice/Name [facility] Work Phone: 02-22-2025 Cognitive function Awake;Alert;Appropriat e [facility] Work Phone: 11-17-2024 Cognitive function Voice/Name [facility] Work Phone: 05-15-2024 Because of a physica l, mental, or emotional condition, do you have serious difficulty concentrating, remembering, or making decisions No 05/15/2024 9:35 AM Debora Meza, MIN No [facility] 11-21-2023 Cognitive function Level Of Cons ciousness Awake;Alert;Appropriate;Fol lows Commands [facility] Work Phone: 12-03-2022 Cognitive function Voice/Name [facility] Work Phone: 12-01-2022 Cognitive function Voice/Name [facility] Work Phone: 04-08-2022 Cognitive function Voice/Name [facility] Work Phone: 04-07-2022 Cognitive function Appropriate;C ooperative;Ruiz kative [facility] Work Phone: 03-28-2022 Mental Status Oriented x 4 [facility] 03-28-2022 Mental Status [facility] 03-28-2022 Mental Status [facility] Clinical Notes 06-29-2018 to 07-08-2025 Note Date & Type Note Facility 07-08-2025 Progress note Note Date/Time July 08, 2025 3:26pm [facility] Internal Medicine [address] [place] [address] [place] [address] OFFICE VISIT Date of Service: 07/08/25 MR#: [id number] Acct: [id number] Name: LYNETTE ANGULO Rep #: [id number] : 1940 Provider: JUSTIN Luu Age/Sex: 85/F Location: [facility] Status: Signed Intake Vital Signs 07/07/25 23:10 07/08/25 14:51 Height 5 ft 5 ft Weight: 204 lb BMI 39.8 BP 126/68 H Blood Pressure Location Lt brachial Position Sitting Respiration 16 Pulse 67 Pulse Source Monitor Temp 97.2 F L Temp Source Temporal Pulse Oximetry (%) 97 Oxygen Delivery Method room air Intake Visit Reasons: Transitional Care Management Chief Complaint: [facility] Special Duty Nurse Required: No Accompanied by: Self Is patient in pain?: No Allergies benazepril (From Lotensin) Allergy (Verified 07/08/25 14:45) Unknown Iodine and Iodide Containing Produc Allergy (Verified 07/08/25 14:45) Shortness of breath meperidine (From Demerol) Allergy (Verified 07/08/25 14:45) Unknown metformin (From Janumet) Allergy (Verified 07/08/25 14:45) Pain in joints Penicillins Allergy (Verified 07/08/25 14:45) Hives propoxyphene (From Darvon) Allergy (Verified 07/08/25 14:45) Unknown shellfish derived Allergy (Verified 07/08/25 14:45) Shortness of breath sitagliptin (From Janumet) Allergy (Verified 07/08/25 14:45) Pain in joints spironolactone Allergy (Verified 07/08/25 14:45) Unknown rivaroxaban (From Xarelto) Adverse Reaction (Severe, Verified 07/08/25 14:45) PERICARDIAL EFFUSION adhesive Adverse Reaction (Unknown, Verified 07/08/25 14:45) Unknown hydrochlorothiazide Adverse Reaction (Verified 07/08/25 14:45) NEEDS FOLLOW-UP lisinopril Adverse Reaction (Verified 07/08/25 14:45) NEEDS FOLLOW-UP metoprolol Adverse Reaction (Verified 07/08/25 14:45) Shortness of breath simvastatin Adverse Reaction (Verified 07/08/25 14:45) Pain in joints Medications ?Medication ?Instructions ?Recorded ?Confirmed ?Type Oral Appliance #1 ea 03/19/22 07/08/25 Rx latanoprost 0.005 % eye drops 1 drp EACH EYE QHS Check with 03/28/22 07/08/25 History primary doctor [id number] 1 cap PO DAILY suppl ement 12/01/22 07/08/25 History oil 350 mg-400 mg capsule cholecalciferol (vitamin D3) 125 125 mcg PO DAILY #30 tabs 12/11/22 07/08/25 Rx mcg (5,000 unit) tablet ascorbic acid (vitamin C) 500 mg 500 mg PO DAILY 02/0707/08/25 History capsule cranberry 500 mg capsule 500 mg PO DAILY 02/07/2307/23 History doxazosin 4 mg tablet 4 mg PO QHS #90 tabs 4 07/08/25 Rx carvedilol 25 mg tablet 25 mg PO BID #180 TABLETS 07/08/25 Rx amlodipine 10 mg tablet 10 mg PO DAILY 11/16/24 10 History apixaban 2.5 mg tablet (Eliquis) 2.5 mg PO BID 5 07/08/25 History cinnamon bark 500 mg capsule 500 mg PO DAILY 11/16/24 07/08/25 History (Cinnamon) isosorbide mononitrate 30 mg 30 mg PO DAILY 11/16/24 1 History tablet,extended release 24 hr olmesartan 20 mg tablet 20 mg PO QDAY 12/09/2407/08 History pantoprazole 40 mg tablet,delayed 40 mg PO DAILY #90 t abs 05/12/25 07/08/25 Rx release estradiol 0.01% (0.1 mg/gram) 1 g vaginal 3XW 3 months #42.5 05/17/25 07/08/25 Rx vaginal cream grams clopidogrel 75 mg tablet 75 mg PO DAILY #90 tabs 04/3007/08/25 Rx glimepiride 2 mg tablet 2 mg PO DAILY blood sugar #9 0 tabs 05/20/25 07/08/25 Rx levothyroxine 100 mcg tablet 100 mcg PO DAILY #90 tabs 05/23/25 07/08/25 Rx atorvastatin 20 mg tablet 20 mg PO QDAY 05/24/2507/08 History ferrous sulfate 325 mg (65 mg 325 mg PO BID #60 tabs 0 06/02/25 07/08/25 Rx iron) tablet (Iron (ferrous sulfate)) torsemide 20 mg tablet 10 mg PO QAM 06/16/25 History BIPAP -Bilevel Positive Airway 06/21/25 07/08/25 Hist ory Pressure ([facility] INFORMATIONAL USE ONLY) Have you fallen in the past year?: No Nurse's Note: had severe pain post dinner last night ended up in the [facility] ER with abdominal pain ER is suggesting a HIDA scan be oredered [facility] Medical History Iron deficiency anemia Chronic renal failure Anemia Constipation Vaginal atrophy Nocturnal enuresis Urge incontinence Overactive bladder Aortic stenosis Stage 4 chronic kidney disease Breast calcification, right Anxiety Hypothyroidism Diabetes Kidney disease Sleep apnea Atrial fibrillation Secondary pulmonary arterial hypertension Sick sinus syndrome Chronic pericarditis with effusion Left bundle branch block (LBBB) Essential hypertension Bradycardia Physical debility Gout Glaucoma Chronic renal failure, stage 3a Osteoarthritis Diabetes mellitus, type 2 Pericardial effusion (08/23/20) LVH (left ventricular hypertrophy) Musculoskeletal back pain PAF (paroxysmal atrial fibrillation) Hemoptysis CLIFFORD (obstructive sleep apnea) Hypersomnolence Nonrheumatic aortic valve stenosis Carotid bruit HLD (hyperlipidemia) Abnormal cardiac enzyme level Hyperthyroidism Surgical History Heart valve replaced S/P TAVR (transcatheter aortic valve replacement) S/P skin biopsy History of permanent cardiac pacemaker placement (06/2018) 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 History of total hysterectomy History of tonsillectomy and adenoidectomy History of parathyroidectomy (2009) History of thyroidectomy, total (2009) Family History Mother Cancer Uterine Thyroid disorder Father Cancer lung Hypertension Son Cancer esophageal Social History household members: spouse number of children: 2 current occupational status: retired current occupation: worked in the [employer] at [employer] Smoking Status: Never smoker Electronic Cigarette Use: not used alcohol intake: never substance use type: does not use caffeine: No do you feel safe at home: Yes HPI HPI Chief Complaint: [facility] Details: LYNETTE ANGULO, is a 85 F who presents to the office today for follow-up after being in the emergency department just last evening. Patient states that she initially went in with some epigastric pain that then sort of changed to be left-sided and radiating into the back a little bit. There was concern for a kidney stone and therefore they did do a CAT scan which was negative however this showed that she did have a gallstone. They did keep her overnight to get an ultrasound the next morning. There was no signs of acute cholecystitis and her labs were unremarkable for such and therefore she was released with with recommendations for follow-up. Patient states that she really does not typically have a lot of GI symptoms. She denies having any frequent indigestion, heartburn, or belching/burping. She states that she does not normally get nausea after meals although she states yesterday she actually was alittle nauseated before the hospital. No significant family history of gallbladder that she is aware of. She has not had any vomiting. No change in the bowels. ROS Const Constitutional: No body ache, excessive sweating, fatigue, fever(s), frequent falls, headache(s), snoring, weakness, weight change, sleep problems or change in appetite Eyes Eyes: No blurry vision, change in vision, eye pain or Light sensitivity ENT ENT: No abnormal hearing, ear or mastoid pain, tinnitus, nasal congestion, headache(s), neck pain or sore throat Resp Respiratory: No cough, shortness of breath, snoring or wheezing Cardio Cardiology: No chest pain at rest, chest pain with exertion, excessive sweating,shortness of breath, dyspnea on exertion, lightheadedness, orthopnea or palpitations Gastro GI: No abdominal pain, change in bowel habits, constipation, cramping, diarrhea,nausea/dyspepsia or vomiting Genitourinary-Female: No burning urination, painful urination, urinary incontinence, urinary frequency, blood in urine, abnormal periods or pelvic pain Musc Musculoskeletal: No abnormal gait, joint pain, back pain, limited range of motion, neck pain, numbness, stiffness, tingling or Arthritis Skin Skin: No dry skin, redness, lesions, itchy eyes, rash or wounds Neuro Neurology: No abnormal gait, abnormal hearing, abnormal speech, dizziness, weakness, frequent falls, headache(s), memory loss, numbness or tingling Psych Psychiatric: No anxiety, No change in appetite, No depression, No memory loss and No Thoughts of harming yourself/Others Endo Endocrine: No cold intolerance, excessive sweating, fatigue, flushing, heat intolerance, increased thirst/drinking, increased hunger or weight change Aller/Imm Allergy/Immunologic: No itchy eyes, seasonal allergy symptoms, hives or wheezing Carloz/Lymp Hematologic/Lymphatic: No easy bleeding, easy bruising or enlarged lymph nodes Exam Const General: cooperative, comfortable and no acute distress Orientation: alert, awake and oriented x3 Limitations: altered mental status Resp Effort & Inspection: normal respiratory effort, able to speak in complete sentences and symmetric chest movement Auscultation: Bilateral: Clear to Auscultation Cardio Rate: regular rate Rhythm: regular rhythm Heart Sounds: S1 normal and S2 normal GI Inspection: obesity Auscultation: normal bowel sounds Palpation: soft, no guarding and nontender Other: Patient has no acute abdominal findings. The abdomen is soft and she has no tenderness on palpation of the abdomen. Definitely no evidence of Salcido sign. She has no pain in the shoulder blade area. No epigastric discomfort. Neuro General: patient alert, patient awake, patient oriented x3 and gait normal Cognition: normal cognition Speech: speech normal Gait: normal gait Psych Appearance: grossly normal Mental Status: mental status grossly normal Mood: congruent mood Affect: normal affect Speech and Movement: speech and movement normal Attitude: cooperative Coding Level of Care Code Off vis,est,level 3 Diagnoses Calculus of gallbladder without cholecystitis without obstruction K80.20 Cholelithiasis location: gallbladder Cholecystitis presence: without cholecystitis Biliary obstruction: without biliary obstruction Assessment and Plan Assessment and Plan (1) Cholelithiasis: Status: Acute Qualifiers: Cholelithiasis location: gallbladder Cholecystitis presence: without cholecystitis Biliary obstruction: without biliary obstruction Qualified Code(s): K80.20 - Calculus of gallbladder without cholecystitis without obstruction Plan: Patient presents the office today for follow-up per hospital. Patient was in the emergency department last night for some epigastric pain that ended up transitioning into some more loin to groin pain on the left side. CAT scan did not show any evidence stone at same time revealed gallstone. Again we discussedthat patient really does not have a history suggestive of gallbladder disease. She denies having any frequent indigestion or any reflux symptoms. She definitely does not have any right upper quadrant pain. There is none of that noted today on physical exam. Definitely negative Salcido sign. We did discuss anatomy and physiology as well as pathophysiology of gallbladder disease. Explained to her that her labs and ultrasound did not show evidence of acute cholecystitis however the HIDA scan is something different to look at the function of the gallbladder. At this time I think that due to her recommendations we will go ahead and set her up for the HIDA scan at the same time I am not sure that patient has a lot of signs or symptoms that point to this being gallbladder disease. We did discuss though that it still is important to her to work on dietary habits and limiting fatty/greasy foods to make sure that we do not stimulate the gallbladder unnecessarily. Weight loss obviously is something we always would recommend through proper dietary intake. I do want her to pay attention to more to her meals. She needs to watch for nausea or heartburn or indigestion or shoulder blade pains 20 minutes to an hourafter meals. She is to notify with the any of these changes or any other questions or concerns in the meantime. This note was generated with [employer] dictation software. It may contain incorrectwords, spelling, and punctuation that were not noted in checking the note beforesigning. Orders: Orders Hepatobilliary Img w/Pharm Int Today K80.20 - Calculus of gallbladder without cholecystitis without obstruction Clinical Quality Measures Falls Risk Screening/Assistive Devices Have you fallen in the past year?: No 07/08/25 1533 <Electronically signed by Ward ANDERSON> Date _ Ward ANDERSON Cosigner Signature: Date (if applicable) CC: ~ [employer] Work Phone: [phone]) 658-642310-10-2025 Radiology Diagnostic study [facility]10-10-2025 Radiology Diagnostic study [facility]10-10-2025 Radiology Diagnostic study [facility] 06-20-2025 NoteHNO ID: [id number] Author: SHEBA SOMERS MD Service: ? Author Type: Physician Type: Progress Notes Filed: 06/20/2025 14:20 Note Text: [facility] Heart, Vascular AND Thoracic [place] Department of Cardiovascular Medicine TELEPHONE VISIT (audio only) PROGRESS NOTE This is a telephone encounter initiated for an established patient. The patient, parent or guardian is not originating from a related Evaluation AND Management service provided within the previous 7 days nor leading to an Evaluation AND Management service or procedure within the next 24 hours or soonest available appointment. I have communicated my name and active licensure. The patient's identity and physical location were verified at the time of this visit. Either the patient or their legal manufacturing sales representative has been informed of the risks and benefits of -- and alternatives to -- treatment through a remote evaluation and consents to proceed with the evaluation remotely. Lynette Angulo has consented to this telephone encounter. Persons Present: patient Chief Complaint/Reason: SOB HPI: see note below Data Reviewed: Most recent labs and imaging results. No data to display Assessment: The patient is an 85-year-old female with a history of TAVR and RCA intervention, presenting for follow-up. The patient underwent TAVR on February 09, 2024, using a 23 mm ZORA 3 valve, followed by intervention on a heavily calcified RCA in April 2024, which involved intravascular lithotripsy and DCB angioplasty. During the RCA intervention, three lithotripsy balloons ruptured, and a DCB was ultimately used due to significant risk of underexpansion after reassessment of the lumen using intravascular ultrasound. In January 2025, she reported persistent dyspnea and fatigue without improvement following TAVR or RCA DCB. The most recent echocardiogram available for review was from March 2024, showing normal LV function with a mean TAVR gradient of 15 mmHg. She reports worsening dyspnea, making ambulation difficult, and was recently hospitalized at [place]. During hospitalization, an echocardiogram reportedly showed fluid around the left ventricle, and she was informed of kidney issues. Initial treatment with furosemide was ineffective, so she was switched to torsemide. Current medications include amlodipine 10 mg daily, apixaban 2.5 mg daily, atorvastatin 20 mg daily, carvedilol 25 mg BID, clopidogrel 75 mg daily, furosemide 20 mg daily, isosorbide mononitrate 30 mg daily, and olmesartan 40 mg daily. Lab tests in December 2024 showed a stable creatinine of 1.3 mg/dL, with previous levels as high as 1.9 mg/dL. Labs: - (December) Creatinine: 1.3 (stable); prior values up to 1.9 recurrently Imaging: - (March) Echocardiogram: - LV systolic function: Normal - TAVR mean gradient: 15 mm Hg Tests AND Prior Procedures: - (April) Right coronary artery PCI attempt with intravascular lithotripsy, cutting balloon angioplasty, and drug-coated balloon: Three IVL balloon ruptures; no stent placement due to severe calcification and high underexpansion risk on IVUS reassessment Addendum: Independently reviewed and interpreted by me, Sheba Somers; Results reviewed directly with the patient. Plan: 1. Paroxysmal atrial fibrillation (HCC) (I48.0) On apixaban 2.5 mg daily for anticoagulation. - Continue apixaban 2.5 mg daily. 2. 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 Chronic kidney disease, unspecified CKD stage (N18.9) Recent hospitalization for worsening dyspnea and volume overload; diuretics adjusted during admission. Chronic renal insufficiency with creatinine ranging from 1.3 to 1.9 mg/dL complicates volume management. - Review recent echocardiogram and hospital records after discharge to guide further management. - Advised patient to contact office post-discharge to facilitate transfer of recent echocardiogram images for review. 4. 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 - Will review most recent echocardiogram after discharge to assess valve function. 5. Coronary artery disease of [place] artery of [place] heart with stable angina pectoris (I25.118) History of heavily calcified RCA disease treated with intravascular lithotripsy and DCB angioplasty in April 2024; stenting deferred due to high risk of underexpansion and vessel rupture. No improvement in symptoms following prior interventions. - Discussed high procedural risks of further coronary intervention, including stroke and arterial rupture, and limited likelihood of symptomatic improvement based on prior outcomes. - Will reassess coronary management after reviewing recent echocardiogram and hospital records. 6. Goals of care, counseling/discussion (Z71 (more content not included)... [facility]09-10-2025 Telephone encounter Note* Telephone Encounter - Shantel Mcgowan - 06/08/2025 5:12 PM EDT Called pt, mikki SALMON advised of date change for phone visit to 06/20 at 1130 [facility]09-10-2025 Miscellaneous Notes* Telephone Encounter - Shantel Mcgowan - 06/08/2025 5:12 PM EDT Called pt, left VM advised of date change for phone visit to 06/20 at 1130 [facility] Telephone encounter Note * Telephone Encounter - Linda Hayes RN - 06/08/2025 9:24 AM EDT Called patient to discuss most recent remote transmission. Persistent AF ongoing for 10 days. On Eliquis and historically asymptomatic. Left voicemail requesting patient to re-send a remote for a rhythm check. Will route this message to Dr. Suazo as FYI of persistent AF. Patient follows in [place], scheduled for cards follow-up with Dr. Clements in July. [facility]09-10-2025 Miscellaneous Notes* Telephone Encounter - Linda Hayes RN - 06/08/2025 9:24 AM EDT Called patient to discuss most recent remote transmission. Persistent AF ongoing for 10 days. On Eliquis and historically asymptomatic. Left voicemail requesting patient to re-send a remote for a rhythm check. Will route this message to Dr. Suazo as FYI of persistent AF. Patient follows in [place], scheduled for cards follow-up with Dr. Clements in July. [facility] Telephone encounter Note * Telephone Encounter - Sade Carrillo MA - 06/02/2025 2:44 PM EDT Patient's request for medication is as follows: Requested Prescriptions Pending Prescriptions Disp Refills apixaban (ELIQUIS) 2.5 mg tab(s) 180 tablet 3 Sig: Take 1 tablet by mouth two times a day. Prescription(s) as above. Please process accordingly. Sade Carrillo MA [facility]09-04-2025 Miscellaneous Notes* Telephone Encounter - Sade Carrillo MA - 06/02/2025 2:44 PM EDT Patient's request for medication is as follows: Requested Prescriptions Pending Prescriptions Disp Refills apixaban (ELIQUIS) 2.5 mg tab(s) 180 tablet 3 Sig: Take 1 tablet by mouth two times a day. Prescription(s) as above. Please process accordingly. Sade Carrillo MA * Telephone Encounter - Shanon Montoya - 06/02/2025 1:02 PM EDT Patient phones requesting refills as follows: Requested Prescriptions Pending Prescriptions Disp Refills apixaban (ELIQUIS) 2.5 mg tab(s) 180 tablet 3 Sig: Take 1 tablet by mouth two times a day. Please review and advise. Shanon Montoya documented [facility] Telephone encounter Note * Telephone Encounter - Shanon Montoya - 06/02/2025 1:02 PM EDT Patient phones requesting refills as follows: Requested Prescriptions Pending Prescriptions Disp Refills apixaban (ELIQUIS) 2.5 mg tab(s) 180 tablet 3 Sig: Take 1 tablet by mouth two times a day. Please review and advise. Shanon Montoya [facility]07-15-2025 Evaluation note* Diagnosis Onset Date Resolution Status Admit Date Acquired hypothyroidism acute J darius 2024 10:53am Osteoarthritis acute April 12, 2025 10:53am CLIFFORD (obstructive sleep apnea) chronic April 12, 2025 10:53am Essential hypertension inactive Ju ly 2024 10:53am Controlled type 2 diabetes mellitus deleted April 12, 2025 10:53am Change in bowel habits noneactive Ju ly 2024 10:53am Osteoporosis noneactive April 12, 025 10:53am CKD (chronic kidney disease) stage 3, GFR 30-59 ml/min noneactive April 12, 2025 10:53am CAD (coronary artery disease) noneactive April 12, 2025 10:53am Recurrent UTI noneactive April 12, 2025 10:53am Obesity (BMI 30-39.9) noneactive Mar 10:53am Aortic stenosis acute May 132024 10:42am Coronary artery disease acute A ug2024 10:42am Shortness of breath acute 2024 10:42am Chronic pericarditis with effusion chronic May 13 10:42am History of permanent cardiac pacemaker placement June, chronic Apru st 2024 10:42am LVH (left ventricular hypertrophy) chronic May 13 10:42am Sick sinus syndrome chronic 2024 10:42am Constipation acute May 17, 2025 11:09am Diabetes acute May 17 11:09am Nocturnal enuresis acute May 17, 2025 11:09am Overactive bladder acute May 17, 2025 11:09am Urge incontinence acute May 17, 2025 11:09am Vaginal atrophy acute May 172024 11:09am Chronic UTI chronic May 17, 2025 11:09am Anemia acute May 17 1:05pm Depression screening noneactive 2024 1:05pm Anemia acute May 24 025 10:42am Aortic stenosis acute May 242024 10:42am Shortness of breath acute 2024 10:42am Obesity chronic May 24 10:42am CLIFFORD (obstructive sleep apnea) chronic May 24 10:42am Secondary pulmonary arterial hypertension chronic April 10:42am Anemia acute May 11:22am Shortness of breath acute Septe [facility] 2024 11:22am CKD (chronic kidney disease) stage 4, GFR 15-29 ml/min noneactive June 16, 2025 11:22am Diastolic dysfunction noneactive Sep tember 2024 11:22am [facility] Work Phone: 1(717) 536-605207-15-2025 Evaluation note* Diagnosis Onset Date Resolution Status Admit Date Acquired hypothyroidism acute J darius 2024 10:53am Osteoarthritis acute April 12, 2025 10:53am CLIFFORD (obstructive sleep apnea) chronic April 12, 2025 10:53am Essential hypertension inactive Ju ly 2024 10:53am Controlled type 2 diabetes mellitus deleted April 12, 2025 10:53am Change in bowel habits noneactive Ju ly 2024 10:53am Osteoporosis noneactive April 12 10:53am CKD (chronic kidney disease) stage 3, GFR 30-59 ml/min noneactive April 12, 2025 10:53am CAD (coronary artery disease) noneactive April 12, 2025 10:53am Recurrent UTI noneactive April 12, 2025 10:53am Obesity (BMI 30-39.9) noneactive Mar 10:53am Aortic stenosis acute May 132024 10:42am Coronary artery disease acute A ug2024 10:42am Shortness of breath acute t 2024 10:42am Chronic pericarditis with effusion chronic May 13 10:42am History of permanent cardiac pacemaker placement June, chronic Augu st 2024 10:42am LVH (left ventricular hypertrophy) chronic May 13 10:42am Sick sinus syndrome chronic t 2024 10:42am Constipation acute May 17, 2025 11:09am Diabetes acute May 17 11:09am Nocturnal enuresis acute May 17, 2025 11:09am Overactive bladder acute May 17, 2025 11:09am Urge incontinence acute May 17, 2025 11:09am Vaginal atrophy acute May 172024 11:09am Chronic UTI chronic May 17, 2025 11:09am Anemia acute May 17 025 1:05pm Depression screening noneactive Augu st 2024 1:05pm Anemia acute May 24 10:42am Aortic stenosis acute May 242024 10:42am Shortness of breath acute Augus t 2024 10:42am Obesity chronic May 24, 025 10:42am CLIFFORD (obstructive sleep apnea) chronic May 24 10:42am Secondary pulmonary arterial hypertension chronic April 10:42am Anemia acute May 11:22am Shortness of breath acute Septe mber 2024 11:22am CKD (chronic kidney disease) stage 4, GFR 15-29 ml/min noneactive June 16, 2025 11:22am Diastolic dysfunction noneactive Sep tember 2024 11:22am Constipation acute June 212024 11:27am Diabetes acute May 11:27am Nocturnal enuresis acute Sept2024 11:27am Overactive bladder acute Sept2024 11:27am Urge incontinence acute Septemb er 2024 11:27am Vaginal atrophy acute June 21, 2025 11:27am Chronic UTI chronic May 11:27am [facility] Work Phone: 1(656) 914-371407-15-2025 Evaluation note* Diagnosis Onset Date Resolution Status Admit Date Acquired hypothyroidism acute J darius 2024 10:53am Osteoarthritis acute April 12, 2025 10:53am CLIFFORD (obstructive sleep apnea) chronic April 12, 2025 10:53am Essential hypertension inactive Ju ly 2024 10:53am Controlled type 2 diabetes mellitus deleted April 12, 2025 10:53am Change in bowel habits noneactive Ju ly 2024 10:53am Osteoporosis noneactive April 12 025 10:53am CKD (chronic kidney disease) stage 3, GFR 30-59 ml/min noneactive April 12, 2025 10:53am CAD (coronary artery disease) noneactive April 12, 2025 10:53am Recurrent UTI noneactive April 12, 2025 10:53am Obesity (BMI 30-39.9) noneactive Duarte y 2024 10:53am Aortic stenosis acute May 132024 10:42am Coronary artery disease acute A ugust 2024 10:42am Shortness of breath acute Augus t 2024 10:42am Chronic pericarditis with effusion chronic May 13 10:42am History of permanent cardiac pacemaker placement June, chronic Augu 2024 10:42am LVH (left ventricular hypertrophy) chronic May 13 10:42am Sick sinus syndrome chronic 2024 10:42am Constipation acute May 17, 2025 11:09am Diabetes acute May 17 11:09am Nocturnal enuresis acute May 17, 2025 11:09am Overactive bladder acute May 17, 2025 11:09am Urge incontinence acute May 17, 2025 11:09am Vaginal atrophy acute May 172024 11:09am Chronic UTI chronic May 17, 2025 11:09am Anemia chronic May 17 1:05pm Depression screening noneactive 2024 1:05pm Aortic stenosis acute May 242024 10:42am Shortness of breath acute 2024 10:42am Anemia chronic May 24 10:42am Obesity chronic May 24 10:42am CLIFFORD (obstructive sleep apnea) chronic May 24 10:42am Secondary pulmonary arterial hypertension chronic April 10:42am Shortness of breath acute mb2024 11:22am Anemia chronic May 11:22am CKD (chronic kidney disease) stage 4, GFR 15-29 ml/min noneactive June 16, 2025 11:22am Diastolic dysfunction noneactive Sep tember 2024 11:22am Constipation acute June 212024 11:27am Diabetes acute May 11:27am Nocturnal enuresis acute 2024 11:27am Overactive bladder acute Sept2024 11:27am Urge incontinence acute Septemb er 2024 11:27am Vaginal atrophy acute June 21, 2025 11:27am Chronic UTI chronic May 11:27am Anemia chronic July 04 025 1:43pm Chronic renal failure chronic Oct sheri 2024 1:43pm Iron deficiency anemia chronic Oc tob2024 1:43pm [facility] Work Phone: 1(106) 487-762007-15-2025 Evaluation note* Diagnosis Onset Date Resolution Status Admit Date Acquired hypothyroidism acute J darius 2024 10:53am Osteoarthritis acute April 12, 2025 10:53am CLIFFORD (obstructive sleep apnea) chronic April 12, 2025 10:53am Essential hypertension inactive ly 2024 10:53am Controlled type 2 diabetes mellitus deleted April 12, 2025 10:53am Change in bowel habits noneactive Ju ly 2024 10:53am Osteoporosis noneactive April 12, 025 10:53am CKD (chronic kidney disease) stage 3, GFR 30-59 ml/min noneactive April 12, 2025 10:53am CAD (coronary artery disease) noneactive April 12, 2025 10:53am Recurrent UTI noneactive April 12, 2025 10:53am Obesity (BMI 30-39.9) noneactive Mar 10:53am Aortic stenosis acute May 132024 10:42am Coronary artery disease acute A ugust 2024 10:42am Shortness of breath acute Augus t 2024 10:42am Chronic pericarditis with effusion chronic May 13 10:42am History of permanent cardiac pacemaker placement June, chronic 2024 10:42am LVH (left ventricular hypertrophy) chronic May 13 10:42am Sick sinus syndrome chronic 2024 10:42am Constipation acute May 17, 2025 11:09am Diabetes acute May 17 11:09am Nocturnal enuresis acute May 17, 2025 11:09am Overactive bladder acute May 17, 2025 11:09am Urge incontinence acute May 17, 2025 11:09am Vaginal atrophy acute May 172024 11:09am Chronic UTI chronic May 17, 2025 11:09am Anemia chronic May 17 025 1:05pm Depression screening noneactive Apru st 2024 1:05pm Aortic stenosis acute May 242024 10:42am Shortness of breath acute Augus t 2024 10:42am Anemia chronic May 24 025 10:42am Obesity chronic [place] [address], 2 025 10:42am CLIFFORD (obstructive sleep apnea) chronic May 24 10:42am Secondary pulmonary arterial hypertension chronic April 10:42am Shortness of breath acute Septe mber 2024 11:22am Anemia chronic May 11:22am CKD (chronic kidney disease) stage 4, GFR 15-29 ml/min noneactive June 16, 2025 11:22am Diastolic dysfunction noneactive Sep tem2024 11:22am Constipation acute June 212024 11:27am Diabetes acute May 11:27am Nocturnal enuresis acute kajal 2024 11:27am Overactive bladder acute 2024 11:27am Urge incontinence acute er 2024 11:27am Vaginal atrophy acute June 21, 2025 11:27am Chronic UTI chronic May 11:27am Anemia chronic July 04 1:43pm Chronic renal failure chronic Jun 1:43pm Iron deficiency anemia chronic Oc 2024 1:43pm Cholelithiasis inactive July 082024 2:44pm Anemia chronic July 11, 2025 8:41am Chronic renal failure chronic Jun 8:41am Iron deficiency anemia chronic Oc 2024 8:41am [facility] Work Phone: 1(936) 543-308207-08-2025 NoteHNO ID: [id number] Author: ?, ?, ? Service: ? Author Type: ? Type: Progress Notes Filed: 04/05/2025 11:38 Note Text: Summary: KCCQ-12 AMB TVT FOLLOWUP: Follow Up Type: Phone Call Call Attempt: 1st Attempt Call Status: Left Message and Questionnaire Answered Dougherty Cardiomyopathy Questionnaire (KCCQ-12) 1. How much you are limited by heart failure (shortness of breath or fatigue) in your ability to do the following activities over the past 2 weeks A. Activity - Showering/bathin - Slightly limited B. Activity - Walking 1 block on level ground: 2 - Quite a bit limited C. Activity - Hurrying or jogging (as if to catch a bus): 6 - Limited for other reasons or did not do the activity 2. Over the past 2 weeks, how many times did you have swelling in your feet, ankles or legs when you woke up in the morning?: 5: Never over the past 2 weeks 3. Over the past 2 weeks, on average, how many times did you has fatigue limited your ability to do what you wanted?: 1: All of the time 4. Over the past 2 weeks, on average, how many times has shortness of breath limited your ability to do what you wanted?: 2: Several times per day 5. Over the past 2 weeks, on average, how many times have you been forced to sleep sitting up in a chair or with at least 3 pillows to prop you up because of shortness of breath?: 5: Never over the past 2 weeks 6. Over the past 2 weeks, how much has your heart failure limited your enjoyment of life?: 2: It has limited my enjoyment of life quite a bit 7. If you had to spend the rest of your life with your heart failure the way it is right now, how would you feel about this?: 2 - Mostly dissatisfied 8. How much does your heart failure affect your lifestyle? Please indicate how your heart failure may have limited your participation in the following activities over the past 2 weeks? A. Hobbies, recreational activities: 2 - Limited quite a bit B. 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 Visiting family or friends out of your home: 4 - Slightly limited Patient returned call and completed at 11:38 AM. Patient denies new or worsening symptoms that a provider is not aware of.[facility]07-08-2025 History of Present illness Narrative* Celine Elizalde - 04/05/2025 10:02 AM EDT Summary: KCCQ-12 AMB TVT FOLLOWUP: Follow Up Type: Phone Call Call Attempt: 1st Attempt Call Status: Left Message and Questionnaire Answered Dougherty Cardiomyopathy Questionnaire (KCCQ-12) 1. How much you are limited by heart failure (shortness of breath or fatigue) in your ability to dothe following activities over the past 2 weeks A. Activity - Showering/bathin - Slightly limited B. Activity - Walking 1 block on level ground: 2 - Quite a bit limited C. Activity - Hurrying or jogging (as if to catch a bus): 6 - Limited for other reasons or did not do the activity 2. Over the past 2 weeks, how many times did you have swelling in your feet, ankles or legs when you woke up in the morning?: 5: Never over the past 2 weeks 3. Over the past 2 weeks, on average, how many times did you has fatigue limited your ability to dowhat you wanted?: 1: All of the time 4. Over the past 2 weeks, on average, how many times has shortness of breath limited your ability to do what you wanted?: 2: Several times per day 5. Over the past 2 weeks, on average, how many times have you been forced to sleep sitting up in a chair or with at least 3 pillows to prop you up because of shortness of breath?: 5: Never over the past 2 weeks 6. Over the past 2 weeks, how much has your heart failure limited your enjoyment of life?: 2: It has limited my enjoyment of life quite a bit 7. If you had to spend the rest of your life with your heart failure the way it is right now, how would you feel about this?: 2 - Mostly dissatisfied 8. How much does your heart failure affect your lifestyle? Please indicate how your heart failure may have limited your participation in the following activities over the past 2 weeks? A. Hobbies, recreational activities: 2 - Limited quite a bit B. 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 Visiting family or friends out of your home: 4 - Slightly limited Patient returned call and completed at 11:38 AM. Patient denies new or worsening symptoms that a provider is not aware of. [facility] in [facility] [place] NotePatient Outreach (CIUM[facility]) LYNETTE ANGULO ([id number]) 1940 F Date Time Provider Department 04/05/25 CELINE ELIZALDE During your visit today, we recorded the following information about you: Celine Elizalde 04/05/2025 11:38 AM Addendum AMB TVT FOLLOWUP: Follow Up Type: Phone Call Call Attempt: 1st Attempt Call Status: Left Message and Questionnaire Answered Dougherty Cardiomyopathy Questionnaire (KCCQ-12) 1. How much you are limited by heart failure (shortness of breath or fatigue) in your ability to do the following activities over the past 2 weeks A. Activity - Showering/bathin - Slightly limited B. Activity - Walking 1 block on level ground: 2 - Quite a bit limited C. Activity - Hurrying or jogging (as if to catch a bus): 6 - Limited for other reasons or did not do the activity 2. Over the past 2 weeks, how many times did you have swelling in your feet, ankles or legs when you woke up in the morning?: 5: Never over the past 2 weeks 3. Over the past 2 weeks, on average, how many times did you has fatigue limited your ability to do what you wanted?: 1: All of the time 4. Over the past 2 weeks, on average, how many times has shortness of breath limited your ability to do what you wanted?: 2: Several times per day 5. Over the past 2 weeks, on average, how many times have you been forced to sleep sitting up in a chair or with at least 3 pillows to prop you up because of shortness of breath?: 5: Never over the past 2 weeks 6. Over the past 2 weeks, how much has your heart failure limited your enjoyment of life?: 2: It has limited my enjoyment of life quite a bit 7. If you had to spend the rest of your life with your heart failure the way it is right now, how would you feel about this?: 2 - Mostly dissatisfied 8. How much does your heart failure affect your lifestyle? Please indicate how your heart failure may have limited your participation in the following activities over the past 2 weeks? A. Hobbies, recreational activities: 2 - Limited quite a bit B. 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 Visiting family or friends out of your home: 4 - Slightly limited Patient returned call and completed at 11:38 AM. Patient denies new or worsening symptoms that a provider is not aware of. Allergies As of Date: 04/05/2025 Noted Allergy Reaction DARVON (PROPOXYPHENE HCL) 02/21/2012 12 - Shortness of Breath 14 - Other: See Comments Comments: No strength, bad dreams IODINE 11/28/2014 10 - Anaphylaxis Comments: 12/24/23- pt. premedicated with 13 hrs, had CT scan with IV contrast. Patient denied any s/s of SOB, difficulty breathing, wheezing, itching or rash. LOTENSIN (BENAZEPRIL HCL) 02/21/2012 11 - Vomiting 14 - Other: See Comments Comments: Coughing RIVAROXABAN 03/29/2022 14 - Other: See Comments Comments: Developed pericardial effusion SHELLFISH 11/28/2014 10 - Anaphylaxis SHELLFISH CONTAINING PRODUCTS 01/27/2019 10 - Anaphylaxis 12 - Shortness of Breath SPIRONOLACTONE 02/21/2012 14 - Other: See Comments Comments: Weak, made calcium level high, heart rate 20BPM ADHESIVE 02/21/2012 2 - Rash CELECOXIB 05/18/2019 14 - Other: See Comments Comments: Due to kidneys DEMERAL (MEPERIDINE) 02/21/2012 11 - Vomiting HYDROCHLOROTHIAZIDE 08/23/2020 14 - Other: See Comments METFORMIN 08/23/2020 14 - Other: See Comments METOPROLOL 08/25/2020 12 - Shortness of Breath PENICILLINS 02/21/2012 4 - Hives SIMVASTATIN 08/23/2020 17 - Myalgia 14 - Other: See Comments SITAGLIPTIN 08/23/2020 14 - Other: See Comments Date Reviewed: 02/07/2025 Reviewed by: Domenic Serrano APRN.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 - isosorbide mononitrate ER (IMDUR) 30 mg 24 hr tablet Take 1 tablet by mouth once daily. - olmesartan (BENICAR) 40 mg tablet Take 0.5 tablets by mouth once daily. - furosemide (LASIX) 20 mg tablet Take 1 tablet by mouth once daily. - atorvastatin (LIPITOR) 20 mg tablet Take 1 tablet by mouth once daily. - amLODIPine (NORVASC) 10 mg tablet Take 1 tablet by mouth once daily. - carvedilol (COREG) 25 mg tablet Take 1 tablet by mouth two times a day with meals. - doxazosin (CARDURA) 4 mg tablet Take 1 tablet by mouth daily at bedtime. - apixaban (ELIQUIS) 2.5 mg tab(s) Take 1 tablet by mouth two times a day. - clopidogrel (PLAVIX) 75 mg tablet Take 1 tablet by mouth once daily. Patient should start on May 15, 2024. - glimepiride (AMARYL) 1 mg tablet Take 1 tablet by mouth daily with breakfast. - omega 0-ewz-stz-fish oil 360 mg-108 mg- 180 mg-1,200 mg cap q 24 HR. - vibegron (GEMTESA) 75 mg tablet Take 1 tablet by mouth once daily. - Cranberry 500 mg cap Take 1 capsule by mouth once daily. - Ascorbic Acid 500 mg cpER Take by mouth once daily. - ron (more content not included)...[facility]05-29-2025 NoteHNO ID: [id number] Author: SHEBA SOMERS MD Service: ? Author Type: Physician Type: Progress Notes Filed: 02/24/2025 16:04 Note Text: Heart, Vascular and Thoracic [place] [facility] Department of Cardiovascular Medicine SECTION OF INTERVENTIONAL CARDIOLOGY OUTPATIENT VISIT DATE February 24, 2025 OUTPATIENT VISIT TYPE ESTABLISHED PRIMARY CARE PHYSICIAN: Jorge Benavides [address] [facility] [place] [address] REFERRING PHYSICIAN: Domenic Serrano [address] [facility] [id number] CHIEF COMPLAINT: Patient presents with: CARD Follow Up 3 Month Shortness of Breath: Has worsened since last visit HISTORY OF PRESENT ILLNESS: Ms. Angulo is a 85 year old female who presents today for follow-up visit TAVR and CAD and HFpEF. PAST CARDIAC HISTORY: See HPI PAST MEDICAL HISTORY Diagnosis Date Anemia Aortic stenosis Atrial fibrillation (HCC) Atrial flutter (HCC) Bradycardia Cancer (HCC) thyroid Chronic kidney disease Diabetes (HCC) Gout Heart attack (HCC) HLD (hyperlipidemia) Hypertension Pericardial effusion (HCC) Recurrent UTI Sleep apnea CPAP SSS (sick sinus syndrome) (HCC) Thyroid disease PAST SURGICAL HISTORY Procedure Laterality Date APPENDECTOMY HX CATARACT SURGERY, COMPLEX HYSTERECTOMY HX PPM DUAL 2018 THYROIDECTOMY TOTAL/COMPLETE Parathyroid removal TOTAL KNEE REPLACEMENT Left x2- one revision SOCIAL HISTORY Social History Tobacco Use Smoking status: Never Smokeless tobacco: Never Vaping Use Vaping status: Never Used Substance Use Topics Alcohol use: No Drug use: Never FAMILY HISTORY Problem Relation Age of Onset Uterine Cancer Mother Hypertension Father Lung Cancer Father other (Vascular) Son Hypertension Son ALLERGIES: ALLERGIES Allergen Reactions Darvon [Propoxyphen* Shortness of Breath, Other: See Comments No strength, bad dreams Iodine Anaphylaxis 12/24/23- pt. premedicated with 13 hrs, had CT scan with IV contrast. Patient denied any s/s of SOB, difficulty breathing, wheezing, itching or rash. Lotensin [Benazepri* Vomiting, Other: See Comments Coughing Rivaroxaban Other: See Comments Developed pericardial effusion Shellfish Anaphylaxis Shellfish Containin* Anaphylaxis, Shortness of Breath Spironolactone Other: See Comments Weak, made calcium level high, heart rate 20BPM Adhesive Rash Celecoxib Other: See Comments Due to kidneys Demeral [Meperidine] Vomiting Hydrochlorothiazide Other: See Comments Metformin Other: See Comments Metoprolol Shortness of Breath Penicillins Hives Simvastatin Myalgia, Other: See Comments Sitagliptin Other: See Comments MEDICATIONS: Current Outpatient Medications Medication Sig linaCLOtide (LINZESS) 72 mcg capsule Take 1 capsule by mouth as needed. olmesartan (BENICAR) 40 mg tablet Take 0.5 tablets by mouth once daily. (Patient taking differently: Take 40 mg by mouth once daily.) furosemide (LASIX) 20 mg tablet Take 1 tablet by mouth once daily. (Patient taking differently: Take 20 mg by mouth once daily. Pt taking 40 mg for 7 days (02/22-03/01) per ED physician) atorvastatin (LIPITOR) 20 mg tablet Take 1 tablet by mouth once daily. amLODIPine (NORVASC) 10 mg tablet Take 1 tablet by mouth once daily. carvedilol (COREG) 25 mg tablet Take 1 tablet by mouth two times a day with meals. doxazosin (CARDURA) 4 mg tablet Take 1 tablet by mouth daily at bedtime. apixaban (ELIQUIS) 2.5 mg tab(s) Take 1 tablet by mouth two times a day. clopidogrel (PLAVIX) 75 mg tablet Take 1 tablet by mouth once daily. Patient should start on May 15, 2024. glimepiride (AMARYL) 1 mg tablet Take 1 tablet by mouth daily with breakfast. omega 2-icv-apy-fish oil 360 mg-108 mg- 180 mg-1,200 mg cap q 24 HR. vibegron (GEMTESA) 75 mg tablet Take 1 tablet by mouth once daily. Cranberry 500 mg cap Take 1 capsule by mouth once daily. Ascorbic Acid 500 mg cpER Take by mouth once daily. cinnamon bark (CINNAMON ORAL) Take by mouth. Take 2,00mg daily. cholecalciferol (VITAMIN D3) 5,000 unit tab Take 5,000 Units by mouth once daily. pantoprazole DR (PROTONIX) 40 mg tablet TAKE 1 TABLET BY MOUTH ONCE DAILY AT 6 AM levothyroxine (SYNTHROID) 125 mcg tablet Take 125 mcg by mouth once daily. latanoprost (XALATAN) 0.005 % ophthalmic solution Use 1 Drop in both eyes daily at bedtime. isosorbide mononitrate ER (IMDUR) 30 mg 24 hr tablet Take 1 tablet by mouth once daily. No current facility-administered medications for this visit. REVIEW OF SYSTEMS: HEENT: Denies recent severe headaches, visual changes, difficulty swallowing. GASTROINTESTINAL: Denies melena, hematochezia, heartburn. GENITOURINARY: Denies hematuria. MUSCULOSKELETAL: Denies claudication or muscle myalgias. NEUROLOGIC: Denies unilateral paralysis, slurred speech. SKIN: Denies skin ulcers or lesions. HEMATOLOGICAL: Ambrose (more content not included)...[facility] 02-24-2025 History of Present illness Narrative* Sheba Somers MD - 02/24/2025 3:58 PM EDT Images from the original note were not included. Heart, Vascular and Thoracic [place] [facility] Department of Cardiovascular Medicine SECTION OF INTERVENTIONAL CARDIOLOGY OUTPATIENT VISIT DATE February 24, 2025 OUTPATIENT VISIT TYPE ESTABLISHED PRIMARY CARE PHYSICIAN: Jorge Benavides [address] [place] [address] REFERRING PHYSICIAN: Domenic Serrano [address] [facility] [id number] CHIEF COMPLAINT: Patient presents with: CARD Follow Up 3 Month Shortness of Breath: Has worsened since last visit HISTORY OF PRESENT ILLNESS: Ms. Angulo is a 85 year old female who presents today for follow-up visit TAVR and CAD and HFpEF. PAST CARDIAC HISTORY: See HPI PAST MEDICAL HISTORY Diagnosis Date Anemia Aortic stenosis Atrial fibrillation (HCC) Atrial flutter (HCC) Bradycardia Cancer (HCC) thyroid Chronic kidney disease Diabetes (HCC) Gout Heart attack (HCC) HLD (hyperlipidemia) Hypertension Pericardial effusion (HCC) Recurrent UTI Sleep apnea CPAP SSS (sick sinus syndrome) (HCC) Thyroid disease PAST SURGICAL HISTORY Procedure Laterality Date APPENDECTOMY HX CATARACT SURGERY, COMPLEX HYSTERECTOMY HX PPM DUAL 2018 THYROIDECTOMY TOTAL/COMPLETE Parathyroid removal TOTAL KNEE REPLACEMENT Left x2- one revision SOCIAL HISTORY Social History Tobacco Use Smoking status: Never Smokeless tobacco: Never Vaping Use Vaping status: Never Used Substance Use Topics Alcohol use: No Drug use: Never FAMILY HISTORY Problem Relation Age of Onset Uterine Cancer Mother Hypertension Father Lung Cancer Father other (Vascular) Son Hypertension Son ALLERGIES: ALLERGIES Allergen Reactions Darvon [Propoxyphen* Shortness of Breath, Other: See Comments No strength, bad dreams Iodine Anaphylaxis 12/24/23- pt. premedicated with 13 hrs, had CT scan with IV contrast. Patient denied any s/s of SOB, difficulty breathing, wheezing, itching or rash. Lotensin [Benazepri* Vomiting, Other: See Comments Coughing Rivaroxaban Other: See Comments Developed pericardial effusion Shellfish Anaphylaxis Shellfish Containin* Anaphylaxis, Shortness of Breath Spironolactone Other: See Comments Weak, made calcium level high, heart rate 20BPM Adhesive Rash Celecoxib Other: See Comments Due to kidneys Demeral [Meperidine] Vomiting Hydrochlorothiazide Other: See Comments Metformin Other: See Comments Metoprolol Shortness of Breath Penicillins Hives Simvastatin Myalgia, Other: See Comments Sitagliptin Other: See Comments MEDICATIONS: Current Outpatient Medications Medication Sig linaCLOtide (LINZESS) 72 mcg capsule Take 1 capsule by mouth as needed. olmesartan (BENICAR) 40 mg tablet Take 0.5 tablets by mouth once daily. (Patient taking differently: Take 40 mg by mouth once daily.) furosemide (LASIX) 20 mg tablet Take 1 tablet by mouth once daily. (Patient taking differently: Take 20 mg by mouth once daily. Pt taking 40 mg for 7 days (02/22-03/01) per ED physician) atorvastatin (LIPITOR) 20 mg tablet Take 1 tablet by mouth once daily. amLODIPine (NORVASC) 10 mg tablet Take 1 tablet by mouth once daily. carvedilol (COREG) 25 mg tablet Take 1 tablet by mouth two times a day with meals. doxazosin (CARDURA) 4 mg tablet Take 1 tablet by mouth daily at bedtime. apixaban (ELIQUIS) 2.5 mg tab(s) Take 1 tablet by mouth two times a day. clopidogrel (PLAVIX) 75 mg tablet Take 1 tablet by mouth once daily. Patient should start on 2023. glimepiride (AMARYL) 1 mg tablet Take 1 tablet by mouth daily with breakfast. omega 6-waq-nzk-fish oil 360 mg-108 mg- 180 mg-1,200 mg cap q 24 HR. vibegron (GEMTESA) 75 mg tablet Take 1 tablet by mouth once daily. Cranberry 500 mg cap Take 1 capsule by mouth once daily. Ascorbic Acid 500 mg cpER Take by mouth once daily. cinnamon bark (CINNAMON ORAL) Take by mouth. Take 2,00mg daily. cholecalciferol (VITAMIN D3) 5,000 unit tab Take 5,000 Units by mouth once daily. pantoprazole DR (PROTONIX) 40 mg tablet TAKE 1 TABLET BY MOUTH ONCE DAILY AT 6 AM levothyroxine (SYNTHROID) 125 mcg tablet Take 125 mcg by mouth once daily. latanoprost (XALATAN) 0.005 % ophthalmic solution Use 1 Drop in both eyes daily at bedtime. isosorbide mononitrate ER (IMDUR) 30 mg 24 hr tablet Take 1 tablet by mouth once daily. No current facility-administered medications for this visit. REVIEW OF SYSTEMS: HEENT: Denies recent severe headaches, visual changes, difficulty swallowing. GASTROINTESTINAL: Denies melena, hematochezia, heartburn. GENITOURINARY: Denies hematuria. MUSCULOSKELETAL: Denies claudication or muscle myalgias. NEUROLOGIC: Denies unilateral paralysis, slurred speech. SKIN: Denies skin ulcers or lesions. HEMATOLOGICAL: Denies gingival bleeding, or prolonged epistaxis. ENDOCRINE:Denies heat or cold intolerance, excessive thirst or urination. All Other Remaining ROS negative. PHYSICAL EXAMINATION: BP 136/64 Pulse 57 Resp 18 Wt 193 lb 12.8 oz (87.9kg) SpO2 94% General: Well appearing, in no acute distress, speaking in complete sentences. Skin: No clubbing, no cyanosis. Head/Eyes: Extra ocular movements intact Mouth: Teeth in good repair. Neck: JVP 8-10cm, no carotid bruits, carotids have a normal upstroke, no palpable thyromegaly. Lungs: Clear to auscultation and no rales Heart: Regular rhythm, PMI not displaced, 1/6 SM USB PV Pulses:Pulses intact Abdomen: Soft, nontender, bowel sounds normal, no palpable organomegaly, no bruits. Extremities: No peripheral edema . Grade 2/4 distal pulses bilaterally. Edema Scale: No Musculoskeletal: Normal gait and ambulation Neuro: Oriented to time, place and person CARDIOVASCULAR MEDICINE TESTING: Last ECHO Result Conclusion ECHO Collected: 04/16/2024 9:20 AM (Final result) Impression: CONCLUSIONS: - Exam indication: S/P TAVR - The left ventricle is normal in size. There is mild left ventricular hypertrophy. Left ventricular systolic function is normal. EF = 59 5% (2D biplane) Grade I left ventricular diastolic dysfunction. - The right ventricle is normal in size. Right ventricular systolic function is normal. - The left atrial cavity is moderately dilated. - There is moderate (2+) tricuspid valve regurgitation caused by indeterminate. - S/P transcatheter aortic valve replacement. Balderas S3 Ultra prosthetic aortic valve (size #23). There is no aortic valve regurgitation. The peak gradient is 24 mmHg, the mean gradient is 15 mmHg and the dimensionless valve index is 0.29. Prior peak/mean AV gradients of 17/8 mmHg. - Estimated right ventricular systolic pressure is 40 mmHg plus right atrial pressure. Estimated right atrial pressure is not included as the IVC was not seen. - Exam was compared with the prior CC echocardiographic exam performed on 02/09/2024. Increase in gradients across the TAVR valve. * * * Final * * * Last EKG Result Conclusion ECG COMPLETE Collected: 05/14/2024 8:32 PM (Final result) Impression: AV DUAL-PACED COMPLEXES ABNORMAL ECG Confirmed by SACHA MORAN MD ([id number]) on 06/08/2024 9:36:39 PM IMPRESSION: The patient is an 85-year-old female with a history of TAVR and RCA DCB angioplasty, presenting with ongoing exertional dyspnea, fatigue, and lower extremity edema. 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 She expresses disappointment that neither the TAVR performed on 02/09/2024 nor the RCA DCB angioplasty on 05/14/2024 have significantly alleviated her symptoms. She denies any improvement in breathing despiterecent initiation of Lasix 40 mg daily for the past seven days. She also reports significant lower extremity edema, which has shown some improvement with Lasix. She denies any history of taking Jardiance or Farxiga. She has a history of recurrent UTIs requiring urological care. She has a history of atrial fibrillation and was evaluated by electrophysiology in May 2024, where cardioversion was deemed not beneficial. She remains on apixaban 2.5 mg daily. She has a history of gout treated with colchicine, which she discontinued after resolution of symptoms. She inquires about the potential cardiovascular benefits of colchicine. She reports chronic back pain and degenerative spine disease, which she believes contributes to herdyspnea. She has been seeing a chiropractor, which she feels has provided more relief than previoustreatments. She notes a history of prolonged prednisone use, leading to osteopenia. She is currently taking amlodipine, carvedilol, and olmesartan for hypertension, atorvastatin for hyperlipidemia, and isosorbide for angina. She recently discontinued isosorbide after two days due toconcerns about hypotension and polypharmacy. Her most recent lipid panel in November 2024 showed an LDL of 65 mg/dL. Labs: (12/2024) BNP: Elevated approx 1700 (11/2024) Lipid Panel: LDL 65 mg/dL Imaging: (05/14/2024) Coronary Angiography with Intravascular Ultrasound: - Severe ostial right coronary artery lesion treated w DCB alone given circumferential calcification in the ostial/proximal right coronary artery with minimal cracks despite attempts at modification w IVL and CBA (03/2024) Echocardiogram: Mean TAVR gradient 15 mmHg (02/09/2024) Echocardiogram: Normal left ventricular function, mean TAVR gradient 8 mmHg (02/08/2024) Lower extremity venous ultrasound: No evidence of deep vein thrombosis 1. 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 Post-procedure echocardiogram showed normalLV function with a mean gradient of 8 mmHg. A subsequent echocardiogram in March 2024 showed a mild increase in the gradient to [address] scan was performed at that time to evaluate for leaflet th rombus. - Ordered echocardiogram to be performed in March-April timeframe at [facility]. - Scheduled telephone follow-up in May to review echocardiogram results. 2. Acute on chronic heart failure with preserved ejection fraction (HCC) (I50.33) Experiencing significant exertional dyspnea and fatigue. Recent BNP levels are elevated, indicatingfluid overload. Currently on Lasix 40 mg daily with some improvement in leg edema but persistent dyspnea. - Continue Lasix 40 mg daily. - Discussed potential use of Jardiance, but not initiated due to history of recurrent UTIs. 3. Chronic obstructive pulmonary disease, unspecified COPD type (HCC) (J44.9) 4. Essential (primary) hypertension (I10) Controlled with amlodipine, carvedilol, and olmesartan. Continue current antihypertensive regimen. 5. Permanent atrial fibrillation (HCC) (I48.21) Managed with apixaban 2.5 mg daily. Recent evaluation by Dr. Raoul Suazo in May 2024 deemed cardioversion not beneficial. Continue apixaban 2.5 mg daily. 6. Other chronic pain (G89.29) Chronic back pain with degenerative spine disease, contributing to fatigue and dyspnea. Currently seeing a chiropractor with some relief. Continue critical care unit nurse. 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 Continue apixaban 2.5 mg daily. 8. CAD w severe ostial RCA lesion: Unsuccessful PCI as above. Higher risk of stroke than usual w atherectomy (rota or orbital) given ostial RCA lesion. Can offer if lifestyle limitation is worth the risk in her mind. Currently she doesn't believe that it is, but will let me know if that changes. I would prefer we do not intervene given these risks. Will also try ISMN for 3-4 weeks and see if it helps. Sheba Somers MD .date CONTACT INFORMATION: [facility] [place] Rad[facility] Diagnostic [facility]05-27[facility]25 Discharge summary Author Minor Izaguirre [facility] Note Date/Time February 22, 2025 4:16p m [facility] Medical Records Department [address] [place] [address] Emergency Department Summary 02/22/25 MR#: [id number] Acct: [id number] Name: LYNETTE ANGULO Rep #:[id number] : 1940 85 From: Minor Izaguirre MD PCP: Dr. Jorge Benavides MD Status:REG ER Location: ED HPI History of Present Illness Chief Complaint: Edema Informant: patient and spouse/S.O. Narrative Narrative: 85-year-old female states she accidentally fell and injured her right lower leg on February 06 which was about 2 weeks ago or a little more, and right after that shestarted getting swelling in both of her lower legs. She states this swelling has persisted and they have never been swollen before. She had an aortic valve replacement a year ago and she is due to follow-up with her surgeon this week later. She denies having any chest pain, new problems breathing, orthopnea. She has chronic dyspnea with exertion ever since she had the valve done. She has been on Eliquis for years. As a result of all of this swelling, a week or so ago she went to the [facility] and states that they did an ultrasound of her legs to make sure she did not have a blood clot. It was negative. [facility] Medical History Stage 4 chronic kidney disease Aortic stenosis Breast calcification, right Anxiety Hypothyroidism Diabetes Kidney disease Sleep apnea Atrial fibrillation Secondary pulmonary arterial hypertension Sick sinus syndrome Chronic pericarditis with effusion Left bundle branch block (LBBB) Essential hypertension Bradycardia Physical debility Gout Glaucoma Chronic renal failure, stage 3a Osteoarthritis Diabetes mellitus, type 2 Pericardial effusion (08/23/20) LVH (left ventricular hypertrophy) Musculoskeletal back pain PAF (paroxysmal atrial fibrillation) Hemoptysis CLIFFORD (obstructive sleep apnea) Hypersomnolence Nonrheumatic aortic valve stenosis Carotid bruit HLD (hyperlipidemia) Abnormal cardiac enzyme level Hyperthyroidism Home Medications ?Medication ?Instructions ?Recorded ?Last Taken ?Type Oral Appliance #1 ea 03/19/22 Unknown Rx latanoprost 0.005 % eye drops 1 drp EACH EYE QHS Check with 03/28/22 11/15/24 History primary doctor [id number] 1 cap PO DAILY suppl ement 12/01/22 11/16/24 History oil 350 mg-400 mg capsule cholecalciferol (vitamin D3) 125 125 mcg PO DAILY #30 tabs 12/11/22 11/16/24 Rx mcg (5,000 unit) tablet ascorbic acid (vitamin C) 500 mg 500 mg PO DAILY 02/0711/16/24 History capsule cranberry 500 mg capsule 500 mg PO DAILY 02/07/23 Unk nown History vibegron 75 mg tablet 75 mg PO DAILY 02/07/2310/30 History doxazosin 4 mg tablet 4 mg PO QHS #90 tabs 4 11/15/24 Rx carvedilol 25 mg tablet 25 mg PO BID #180 TABLETS 11/16/24 Rx amlodipine 10 mg tablet 10 mg PO DAILY 11/16/2410/30 History apixaban 2.5 mg tablet (Eliquis) 2.5 mg PO BID 5 11/16/24 History atorvastatin 40 mg tablet 40 mg PO DAILY 11/16/2410/30 History cinnamon bark 500 mg capsule 500 mg PO DAILY 11/16/24 11/16/24 History (Cinnamon) clopidogrel 75 mg tablet 75 mg PO DAILY 11/16/2410/30 History isosorbide mononitrate 30 mg 30 mg PO DAILY 11/16/24 0 11/16/24 History tablet,extended release 24 hr glimepiride 2 mg tablet 2 mg PO DAILY blood sugar #9 0 tabs 11/24/24 Unknown Rx levothyroxine 100 mcg tablet 100 mcg PO DAILY #90 tabs 11/24/24 Unknown Rx olmesartan 20 mg tablet 20 mg PO QDAY 12/09/24 Unkno wn History linaclotide 72 mcg capsule 72 mcg PO QAM #30 caps 11/28 10/23 Unknown Rx (Linzess) pantoprazole 40 mg tablet,delayed 40 mg PO DAILY #90 t abs 02/14/25 Unknown Rx release furosemide 40 mg tablet 40 mg PO DAILY #7 tabs 02/22 Unknown Rx Allergy/AdvReac Type Severity Reaction Status Date / Time benazepril (From Lotensin) Allergy Unknown Verified 02/22/25 13:02 Iodine and Iodide Containing Allergy Shortness Verified 02/22/25 13:02 Produc of breath meperidine (From Demerol) Allergy Unknown Verified 02/22/25 13:02 metformin (From Janumet) Allergy Pain in Verified 02/22/25 13:02 joints Penicillins Allergy Hives Verified 02/22/25 13:02 propoxyphene (From Darvon) Allergy Unknown Verified 02/22/25 13:02 shellfish derived Allergy Shortness Verified 02/22/25 13:02 of breath sitagliptin (From Janumet) Allergy Pain in Verified 02/22/25 13:02 joints spironolactone Allergy Unknown Verified 02/22/25 13:02 rivaroxaban (From Xarelto) AdvReac Severe PERICARDIAL Verified 02/22/25 13:02 EFFUSION adhesive AdvReac Unknown Unknown Verified 02/22/25 13:02 hydrochlorothiazide AdvReac NEEDS Verified 02/22/25 13:02 FOLLOW-UP lisinopril AdvReac NEEDS Verified 02/22/25 13:02 FOLLOW-UP metoprolol AdvReac Shortness Verified 02/22/25 13:02 of breath simvastatin AdvReac Pain in Verified 02/22/25 13:02 joints Family History Mother Cancer Uterine Thyroid disorder Father Cancer lung Hypertension Son Cancer esophageal Surgical History Heart valve replaced S/P TAVR (transcatheter aortic valve replacement) S/P skin biopsy History of permanent cardiac pacemaker placement (06/2018) 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 History of total hysterectomy History of tonsillectomy and adenoidectomy History of parathyroidectomy (2009) History of thyroidectomy, total (2009) Social History household members: spouse number of children: 2 current occupational status: retired current occupation: worked in the [employer] at [employer] Smoking Status: Never smoker Electronic Cigarette Use: not used alcohol intake: never substance use type: does not use caffeine: No do you feel safe at home: Yes ROS ROS ED Constitutional Constitutional ED: Denies chills or fever(s) Eyes Eyes: Denies change in vision or diplopia ENT ENT ED: Denies rhinorrhea or sore throat Cardiovascular Cardiovascular: Reports leg edema; Denies chest pain, orthopnea, palpitations orparoxysmal nocturnal dyspnea Respiratory/Chest Respiratory/Chest: Reports dyspnea on exertion; Denies cough, dyspnea, orthopneaor paroxysmal nocturnal dyspnea Gastrointestinal Gastrointestinal: Denies abdominal pain, diarrhea, nausea or vomiting Genitourinary Genitourinary ED: Denies dysuria or hematuria Musculoskeletal Musculoskeletal: Reports as per HPI and extremity pain; Denies back pain or neckpain Integumentary Denies abscess or rash Neurologic Neurologic: Denies headache(s), paresthesias or weakness Psychiatric Psychiatric: Denies anxiety or suicidal thoughts EXAM Physical Exam Const Vital Signs: 02/22/25 12:59 02/22/25 14:09 02/22/25 14:43 Temperature 97.9 F 98.2 F Temperature Source Oral Oral Pulse Rate 63 60 Respiratory Rate 16 16 Respiratory Effort Normal Non-Labored Respiratory Pattern Normal Blood Pressure 154/54 H 153/67 H Blood Pressure Mean 87 95 Pulse Ox 100 94 Oxygen Delivery Method Room Air Room Air Positive well nourished and well developed General Appearance ED: well developed and NAD HEENT Reports moist mucous membranes normocephalic and atraumatic Eyes PERRL and EOMs intact bilaterally Neck full ROM and supple Resp normal respiratory effort and clear to auscultation bilaterally Cardio regular rate and regular rhythm Cardio Narrative: Systolic murmur 2/6, LLSB GI non-tender and non-distended Auscultation: normoactive bowel sounds Palpation: soft Back/Spine no CVA tenderness General Back: other FROM Extremity normal to inspection and full ROM Extremity Narrative: Diffusely tender from the lateral aspect of the right knee all the way down the lower leg to the lateral ankle. Also similarly tender on the left lower leg. Normal inspection these areas except for edema. General Extremety ED: Yes edema and tenderness; Negative for pulses abnormal General Extremity: edema bilateral lower extremity Details: moderate (Fairly symmetric without signs of cellulitis or venous ulcerations); Negative for pulses abnormal Neuro oriented x3, CN's II-XII intact bilaterally and no sensory deficits noted Sensorium / Orientation: awake and alert Motor Exam: strength 5/5 throughout Skin no rashes or lesions noted and no wounds MDM MDM MDM Narrative Medical decision making narrative: I did labs, her anemia is chronic and likely related to her chronic kidney disease, her creatinine is actually better than it was couple weeks ago at 1.43 with an EGFR of 30. Liver enzymes including her albumin normal. proBNP 1691 when corrected for age within normal limits suggesting she is not in acute decompensated congestive heart failure. Also because she injured her leg and states this all started at the same time, I obtained x-rays of the right tibia/fibula, 2 views negative for acute fracture my interpretation. Given this, it is possible that patient has venous insufficiency, less likely to be valve related given her low proBNP and the fact that this is an aortic valve that was replaced. She can also speak with her cardiothoracic specialist about that later this week when she sees them but for now given her prescription for temporary supply of furosemide until she can follow-up with her doctor. Lab Data Attestation: I reviewed the patient's lab results. Labs: Laboratory Results - last 24 hr 02/22/25 13:45 WBC 5.5 RBC 3.40 L Hgb 9.8 L Hct 31.7 L MCV 93.2 MCH 28.8 MCHC 30.9 L RDW Std Deviation 49.3 H RDW Coeff of Ignacia 14.5 Plt Count 210 MPV 9.9 Immature Gran % (Auto) 0.400 Neut % (Auto) 75.0 H Lymph % (Auto) 15.2 L Travis % (Auto) 8.1 Eos % (Auto) 1.1 Baso % (Auto) 0.2 Absolute Neuts (auto) 4.2 Absolute Lymphs (auto) 0.84 Nucleated RBC % 0 Sodium 139 Potassium 4.5 Chloride 107 Carbon Dioxide 21.7 Anion Gap 11 BUN 23 H Creatinine 1.43 H Estim Creat Clear Calc 30.00 L Est GFR (MDRD) Non-Af 36 L BUN/Creatinine Ratio 16.2 Glucose 136 H Calcium 10.1 Total Bilirubin 0.82 AST 23 ALT 18 Alkaline Phosphatase 99 NT pro BNP II 1691 Total Protein 7.1 Albumin 4.2 Globulin 2.9 Albumin/Globulin Ratio 1.4 Radiography Diagnostic Testing: Clinical Impression(s) from Imaging Studies Tibia/Fibula X-Ray 02/22/25 14:20 IMPRESSION: Diffuse soft tissue swelling. No fracture is seen. Reading Location: [facility]- Discharge Plan Triage Chief Complaint: Edema Other Complaint: Lower Extremity Injury ED Provider: Minor Izaguirre Dx/Rx/DC Orders Clinical Impression: Bilateral lower extremity edema, Contusion of leg, right, Chronic kidney disease (CKD) Instructions: ED Peripheral Edema, Bilateral Prescriptions: New furosemide 40 mg tablet 40 mg PO DAILY Qty: 7 0RF No Action (DME) Oral Appliance See Rx Instructions .ROUTE .MEDSUPPLY Qty: 1 0RF Rx Instructions: As directed vibegron 75 mg tablet 75 mg PO DAILY cranberry 500 mg capsule 500 mg PO DAILY Rx Instructions: administer with meals ascorbic acid (vitamin C) 500 mg capsule 500 mg PO DAILY olmesartan 20 mg tablet 20 mg PO QDAY Linzess 72 mcg capsule 72 mcg PO QAM Qty: 30 2RF latanoprost 0.005 % Drops 1 drp EACH EYE QHS [id number] oil 350-400 mg Capsule 1 cap PO DAILY amlodipine 10 mg tablet 10 mg PO DAILY isosorbide mononitrate 30 mg tablet extended release 24 hr 30 mg PO DAILY clopidogrel 75 mg tablet 75 mg PO DAILY cinnamon bark [Cinnamon] 500 mg capsule 500 mg PO DAILY Eliquis 2.5 mg tablet 2.5 mg PO BID atorvastatin 40 mg tablet 40 mg PO DAILY cholecalciferol (vitamin D3) 125 mcg (5,000 unit) tablet 125 mcg PO DAILY Qty: 30 0RF doxazosin 4 mg tablet 4 mg PO QHS Qty: 90 1RF carvedilol 25 mg tablet 25 mg PO BID Qty: 180 1RF glimepiride 2 mg tablet 2 mg PO DAILY Qty: 90 1RF levothyroxine 100 mcg tablet 100 mcg PO DAILY Qty: 90 1RF pantoprazole 40 mg tablet,delayed release (DR/EC) 40 mg PO DAILY Qty: 90 0RF Primary Care Provider: Jorge Benavides Referrals: Your cardiothoracic surgeon [Other] - Keep Jones appointment Jorge Benavides MD [Primary Care Provider] - As soon as possible Activity Restrictions/Additional Instructions: Today in the ER your creatinine is 1.43, better than the 1.81 you had a couple weeks ago. Your albumin is normal at 4.2. Your proBNP is 1691, within normal limits when corrected for age, arguing against acute decompensated congestive heart failure. Print Language: Czech Disposition Disposition: Home, Self Care What to do if you have Problems For any increased pain, shortness of breath, bleeding, nausea or vomiting, chestpain, or any unexpected problems, contact your Primary Care Provider. Call [facility] ([phone]) or report to the closest Emergency Room. Call 911 if necessary. 02/22/25 1616 <Electronically signed by Minor Izaguirre MD> Cosigner Signature (if applicable): CC: Dr. Jorge Benavides MD ~ Signed [facility] Work Phone: [phone]) 143-304105-13-2025 Hospital Discharge instructions Additional Instructions Today in the ER your creatinine is 1.43, better than the 1.81 you had a couple weeks ago. Your albumin is normal at 4.2. Your proBNP is 1691, within normal limits when corrected for age, arguing against acute decompensated congestive heart failure.[facility] Work Phone: 1(813) 221-523505-12-2025 History of Present illness Narrative* Zach, Domenic, WINDER FIXER.REFINERY PIPELINE OPERATOR - 02/07/2025 10:00 AM EDT Images from the original note were not included. [facility] [place] [facility] Department of Cardiovascular Medicine SECTION OF PREVENTIVE CARDIOLOGY 02/07/2025 Lynette Angulo CURRENT MEDS: Current Outpatient Medications Medication Sig furosemide (LASIX) 20 mg tablet Take 1 tablet by mouth once daily. atorvastatin (LIPITOR) 20 mg tablet Take 1 tablet by mouth once daily. amLODIPine (NORVASC) 10 mg tablet Take 1 tablet by mouth once daily. carvedilol (COREG) 25 mg tablet Take 1 tablet by mouth two times a day with meals. doxazosin (CARDURA) 4 mg tablet Take 1 tablet by mouth daily at bedtime. olmesartan (BENICAR) 40 mg tablet Take 1 tablet by mouth once daily. isosorbide mononitrate ER (IMDUR) 30 mg 24 hr tablet Take 1 tablet by mouth once daily. apixaban (ELIQUIS) 2.5 mg tab(s) Take 1 tablet by mouth two times a day. clopidogrel (PLAVIX) 75 mg tablet Take 1 tablet by mouth once daily. Patient should start on 2023. glimepiride (AMARYL) 1 mg tablet Take 1 tablet by mouth daily with breakfast. colchicine 0.6 mg tablet Take 1 tablet by mouth every other day. finerenone (KERENDIA) 10 mg tablet q 24 HR. omega 8-mnp-nhy-fish oil 360 mg-108 mg- 180 mg-1,200 mg cap q 24 HR. vibegron (GEMTESA) 75 mg tablet Take 1 tablet by mouth once daily. Cranberry 500 mg cap Take 1 capsule by mouth once daily. Ascorbic Acid 500 mg cpER Take by mouth once daily. cinnamon bark (CINNAMON ORAL) Take by mouth. Take 2,00mg daily. cholecalciferol (VITAMIN D3) 5,000 unit tab Take 5,000 Units by mouth once daily. pantoprazole DR (PROTONIX) 40 mg tablet TAKE 1 TABLET BY MOUTH ONCE DAILY AT 6 AM levothyroxine (SYNTHROID) 125 mcg tablet Take 125 mcg by mouth once daily. latanoprost (XALATAN) 0.005 % ophthalmic solution Use 1 Drop in both eyes daily at bedtime. No current facility-administered medications for this visit. ALLERGIES: ALLERGIES Allergen Reactions Darvon [Propoxyphen* Shortness of Breath, Other: See Comments No strength, bad dreams Iodine Anaphylaxis 12/24/23- pt. premedicated with 13 hrs, had CT scan with IV contrast. Patient denied any s/s of SOB, difficulty breathing, wheezing, itching or rash. Lotensin [Benazepri* Vomiting, Other: See Comments Coughing Rivaroxaban Other: See Comments Developed pericardial effusion Shellfish Anaphylaxis Shellfish Containin* Anaphylaxis, Shortness of Breath Spironolactone Other: See Comments Weak, made calcium level high, heart rate 20BPM Adhesive Rash Celecoxib Other: See Comments Due to kidneys Demeral [Meperidine] Vomiting Hydrochlorothiazide Other: See Comments Metformin Other: See Comments Metoprolol Shortness of Breath Penicillins Hives Simvastatin Myalgia, Other: See Comments Sitagliptin Other: See Comments CHIEF COMPLAINT: Lynette Angulo is a 85 year old White female seen today. Patient presents with: Follow Up High blood pressure HISTORY OF PRESENT CARDIOVASCULAR ILLNESS: Patient presents for ongoing management of cardiovascular risk factors--specifically blood pressure,stage 4 CKD, proteinuria. Dr Cifuentes patient. Sent to ER with high K 6.2 11/16/2024. Hospitalized two days. Karendia was stopped and olmesartan was decreased to 20mg. Sees nephrology next week. 84 year old female with a PMH significant for pericarditis, type 2 diabetes mellitus, SSS (status post PPM), aortic stenosis, 02/09/24 TAVR, hx of atrial fibrillation/flutter,CAD with cath 05/14/24 which showed 60 to 70% ostial RCA s/p drug coated Paclitaxel balloon, cutting balloon as well as IVL with shock wave therapy and60% ostial D2 with moderate disease in mid LAD and OM1, diastolic HF. Has follow up with Yonis later this month. TTE 04/16/24: EF 59%, 1.2/0.9, mod dil LA, 1+ MR, 2+ TR, Balderas S3 Ultra prosthetic valve size #23,pk/mean AV grad 24/15, peak AV abdullahi 245 cm/s, trace- 1+[place], asc Ao 3.3 cm, RVSP 40 mmHg Previously seen by Dr. Suazo 06/24/[address] Shetty 05/11/2024. Est care 11/09/[address] Clements (now following with instead of Diogenes) for cardiology. Has had falls-fell last week, slipper caught in plastic pad. States R leg feels swollen and hot since fall, also painful in calf. States has been off colchicine for 6 months (on for pericarditis previously). Is not taking isosorbide mononitrate prescribed per Starr's service for shortness of breath in the event it was a anginal equivalent. She was afraid it would lover blood pressure too much. Home BPs -does not take often Most if goes up later in day is 156/70s. In clinic today 137/57, morning can range 115-120s in morning per patient, then increases later in day to 130s, at most 156/70 which is not often. Chest pain: No Claudication: No SOB: yes with exertion, not knew and unchanged from previous Orthopnea: No PND: No LE: always some swelling, mid November feels increased. Markedly reduced in am , and increases as on feet Lightheadedness/dizziness: Not often Palpitations:No Bleeding/bruising: No CARDIAC RISK FACTORS: Diabetes : Hypertension : Exercise: Does not exercise Limited by knee pain Avg. Sleep Hours Per Night?: 5.5 STATIN INTOLERANCE: Adverse Effect History of Statin Intolerance:: No Current Statin Freq: Every Day USE OF PCSK9 INHIBITORS: CARDIOVASCULAR DISEASE HISTORY: CAD EVENTS; PVD EVENTS: PTCA/Stent Renal Artery: Yes CVD EVENTS: FAMILY AND SOCIAL HISTORY Lifestyle Tobacco Use: Never Alcohol Use: No PHYSICAL EXAMINATION Vital Signs and General Appearance BP 137/57 (BP Site: Right Arm, BP Position: Sitting, BP Cuff Size: Large Adult) Pulse (!) 58 Ht152.4 cm (5') Wt 89.4 kg (197 lb) SpO2 97% BMI 38.47 kg/m BMI 38.47 kg/(m^2) PHYSICAL EXAMINATION: General appearance: well appearing, alert, in no acute distress, and well- hydrated, well nourished Carotid Pulses: Left:2+, Right: 2+, Bruit: No Lungs: lungs clear to auscultation no wheezing or rhonchi Heart: regular rate and rythm , KULDIP Lower Extremities Pulses: Right Posterior Tibial: 2+, Left Posterior Tibial: 2+, Right Dorsalis Pedis: 2+, Left Dorsalis Pedis:2+, Edema: 2+ lower extremites R>L Clinical Test Results Last ECHO Result Conclusion ECHO Collected: 04/16/2024 9:20 AM (Final result) Impression: CONCLUSIONS: - Exam indication: S/P TAVR - The left ventricle is normal in size. There is mild left ventricular hypertrophy. Left ventricular systolic function is normal. EF = 59 5% (2D biplane) Grade I left ventricular diastolic dysfunction. - The right ventricle is normal in size. Right ventricular systolic function is normal. - The left atrial cavity is moderately dilated. - There is moderate (2+) tricuspid valve regurgitation caused by indeterminate. - S/P transcatheter aortic valve replacement. Balderas S3 Ultra prosthetic aortic valve (size #23). There is no aortic valve regurgitation. The peak gradient is 24 mmHg, the mean gradient is 15 mmHg and the dimensionless valve index is 0.29. Prior peak/mean AV gradients of 17/8 mmHg. - Estimated right ventricular systolic pressure is 40 mmHg plus right atrial pressure. Estimated right atrial pressure is not included as the IVC was not seen. - Exam was compared with the prior CC echocardiographic exam performed on 02/09/2024. Increase in gradients across the TAVR valve. * * * Final * * * Last EKG Result Conclusion ECG COMPLETE Collected: 05/14/2024 8:32 PM (Final result) Impression: AV DUAL-PACED COMPLEXES ABNORMAL ECG Confirmed by DEAN GERBER, SACHA ([id number]) on 06/08/2024 9:36:39 PM Ejection Fraction: Ejection Fraction: Normal (>50%) Lab Results: Lipoprotein (a) Date Value Ref Range Status 12/24/2023 6 <30 mg/dL Final Total Cholesterol, Nonfasting Date Value Ref Range Status 12/23/2024 133 <200 mg/dL Final Comment: <200 mg/dL, Desirable 200-239 mg/dL, Borderline high >239 mg/dL, High Triglycerides, Nonfasting Date Value Ref Range Status 12/23/2024 46 <150 mg/dL Final Comment: <150 mg/dL, Normal 150-199 mg/dL, Borderline high 200-499 mg/dL, High >499 mg/dL, Very high HDL Cholesterol, Nonfasting Date Value Ref Range Status 12/23/2024 59 >39 mg/dL Final Comment: 40-59 mg/dL, Acceptable >59 mg/dL, High: Negative risk factor for coronary heart disease <40 mg/dL, Low: Positive risk factor for coronary heart disease LDL Cholesterol Calculated, Nonfasting Date Value Ref Range Status 12/23/2024 65 <100 mg/dL Final Comment: <100 mg/dL, Optimal 100-129 mg/dL, Near optimal/above optimal 130-159 mg/dL, Borderline high 160-189 mg/dL, High >189 mg/dL, Very high Secondary prevention optimal LDL Cholesterol levels are recommended to be < 70 mg/dL Hemoglobin A1C Date Value Ref Range Status 01/30/2023 6.4 (H) 4.3 - 5.6 % Final Comment: [place] [employer] guidelines indicate that patients with HgbA1c in the range 5.7-6.4% are at increased risk for development of diabetes, and intervention by lifestyle modification may be beneficial. HgbA1c greater or equal to 6.5% is considered diagnostic of diabetes. ALT Date Value Ref Range Status 12/23/2024 12 7 - 38 U/L Final Glucose Date Value Ref Range Status 01/07/2025 141 (H) 74 - 99 mg/dL Final Comment: The [place] [employer] (ADA) provides guidance for cutoff values for fasting glucose andrandom glucose. The ADA defines fasting as no caloric intake for at least 8 hours. Fasting plasma glucose results between 100 to 125 mg/dL indicate increased risk for diabetes (prediabetes). Fasting plasma glucose results greater than or equal to 126 mg/dL meet the criteria for diagnosis of diabetes. In the absence of unequivocal hyperglycemia, results should be confirmed by repeat testing. In a patient with classic symptoms of hyperglycemia or hyperglycemic crisis, random plasma glucose results greater than or equal to 200 mg/dL meet the criteria for diagnosis of diabetes. Reference: Standards of Medical Care in Diabetes 2016, [place] [employer]. Diabetes Care. 2016.39(Suppl 1). TSH Date Value Ref Range Status 01/30/2023 0.962 0.270 - 4.200 mIU/L Final UltraSens C-Reactive Protein Date Value Ref Range Status 01/29/2023 3.2 (H) <3.1 mg/L Final Comment: hsCRP < 1.0 mg/L, relative risk is low hsCRP 1.0-3.0 mg/L, relative risk is average hsCRP > 3.0 mg/L, relative risk is high Reference: Lily TA, Delores GA, Angel RW, et al. Markers of Inflammation and Cardiovascular Disease. Application to Clinical and Public Health Practice. A Statement for Healthcare Professionals from the Centers for Disease Control and Prevention and the [place] [employer]. Circulation 2003;107:499-511. Albumin/Creat Ratio Date Value Ref Range Status 11/27/2022 538 (H) <30 mg/g Final Comment: Adult Male and Female Nephrotic Criteria: <30 mg/g is considered normal to mildly increased 30-300 mg/g is considered moderately increased >300 mg/g is considered severely increased KDIGO. (2013). KDIGO 2012 Clinical Practice Guideline for the Evaluation and Management of Chronic Kidney Disease. Official Journal of the International Society of Nephrology, 3(1), 1-150. Creatinine Date Value Ref Range Status 01/07/2025 1.31 (H) 0.58 - 0.96 mg/dL Final Potassium Date Value Ref Range Status 01/07/2025 4.1 3.7 - 5.1 mmol/L Final NT Pro BNP Date Value Ref Range Status 01/07/2025 1,304 (H) <450 pg/mL Final Patient Entered Questionnaire Scores IMPRESSION: In summary, Ms. Angulo is a 85 year old female who was referred to the [facility] because of Hypertension PLAN: The results of this assessment were discussed with the patient. We have mutually agreed upon the following plans and goals: CAD-cath 05/14/24 which showed 60 to 70% ostial RCA s/p drug coated Paclitaxel balloon, cutting balloon as well as IVL with shock wave therapy and 60% ostial D2 with moderate disease in mid LAD and OM1, diastolic HF. Now following with Dr Clements Isosorbide mononitrate recommended per Dr Clements in the event shortness of breath was an anginal equivalent. She has not taken for fear it would lover BP and she is already on multiple BP meds. Noted NTProBNP elevated 1304 on labs 01/07/2025. Results message per Mera Hudson APRN.REFINERY PIPELINE OPERATOR although patient does not have mychart access. Please call Cora and let her know that her labs look much improved with the addition of Lasix. NT pro BNP is elevated from prior confirming volume overload. Please see how her symptoms have been since starting Lasix? If she continued to have symptoms she can briefly double the Lasix to 40 mg daily for 2-3 days then return to 20 mg daily thereafter. Mera Hudson APRN.REFINERY PIPELINE OPERATOR PLAN: Encouraged her to try the isosorbide mononitrate to see if it helps shortness of breath, if not shecan stop. Since increased LE edema ---instructed her to check her lasix dose and ensure 20mg daily. If not increase to 20mg daily. If she is at 20mg daily, increase to 40mg for three days. If no reduction in edema, to call Starr's office. Due to swelling and pain (+Homans sign R leg )will order us R/O DVT History pericarditis -states not taking colchicine for last 6 months; instructed to contact Lynette Ervin 02/09/24 TAVR : follow up Carmine this month Atrial fib/flutter, SSS s/pPPM: continue to follow with Dr Avila (last seen 05/2024) Hypertension, stage 4 CKD, proteinuria: Blood pressure elevation per Laffin felt due to primary hypertension, aging, dietary indiscretion,secondary CKD Home BPs -does not take often Most if goes up later in day is 156/70s. In clinic today 137/57, morning can range 115-120s in morning per patient, then increases later in day to 130s, at most 156/70 which is not often. 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 On atorvastatin 20mg daily Diabetes Plan: - followed by PCP Exercise: Exercise limited by knee discomfort, failed replacement. Nutrition /Weight: PLAN: -Low sodium diet less than 2300 mg day -Recommend BMI less than 27 -Follow a Mediterranean diet: Choose plenty of whole or plant based foods-fruit, vegetables, whole grains, and nuts. Choose monounsaturated fat from olive oil, olives, nuts, and avocado. [place] 3 fats are another heart healthy fat found in tuna, salmon, flaxseed, and walnuts. Limit foods high in sodium, saturated fat, and cholesterol. HEALTH MAINTENANCE: Please follow-up with your Primary Card Physician and review your health maintenance to ensure it is up to date. MEDICATION CHANGES: see above regarding lasix changes Physicians and Nurse Practitioners work closely together in Preventive Cardiology. If at any time you would like to see a Physician for a visit, please let us know. Last visit with [facility] physician: Vane 11/27/22 AMBULATORY PATIENT EDUCATION Topic: Education on risk factors and medications. Instruction Provided To: Patient Cognitive Ability: Alert/Oriented Barriers: None Motivation to Learn: Interested Methods of Instruction: Verbal instruction and/or handouts. Patient Leans Best By: Multiple Methods Patient Verbalized: Understanding I personally spent 40 minutes in total time involved in the management and care of this patient. Domenic Serrano APRN.MOIZ US LEs negative for DVT. Patient notified. Domenic Serrano APRN.REFINERY PIPELINE OPERATOR documented in this encounter[facility] [place] NoteHNO ID: [id number] Author: DOMENIC SERRANO APRN.CNP Service: ? Author Type: Nurse Practitioner Type: Progress Notes Filed: 02/07/2025 14:39 Note Text: [facility] [place] [facility] Department of Cardiovascular Medicine SECTION OF PREVENTIVE CARDIOLOGY 02/07/2025 Lynette Angulo CURRENT MEDS: Current Outpatient Medications Medication Sig furosemide (LASIX) 20 mg tablet Take 1 tablet by mouth once daily. atorvastatin (LIPITOR) 20 mg tablet Take 1 tablet by mouth once daily. amLODIPine (NORVASC) 10 mg tablet Take 1 tablet by mouth once daily. carvedilol (COREG) 25 mg tablet Take 1 tablet by mouth two times a day with meals. doxazosin (CARDURA) 4 mg tablet Take 1 tablet by mouth daily at bedtime. olmesartan (BENICAR) 40 mg tablet Take 1 tablet by mouth once daily. isosorbide mononitrate ER (IMDUR) 30 mg 24 hr tablet Take 1 tablet by mouth once daily. apixaban (ELIQUIS) 2.5 mg tab(s) Take 1 tablet by mouth two times a day. clopidogrel (PLAVIX) 75 mg tablet Take 1 tablet by mouth once daily. Patient should start on May 15, 2024. glimepiride (AMARYL) 1 mg tablet Take 1 tablet by mouth daily with breakfast. colchicine 0.6 mg tablet Take 1 tablet by mouth every other day. finerenone (KERENDIA) 10 mg tablet q 24 HR. omega 3-nyv-wco-fish oil 360 mg-108 mg- 180 mg-1,200 mg cap q 24 HR. vibegron (GEMTESA) 75 mg tablet Take 1 tablet by mouth once daily. Cranberry 500 mg cap Take 1 capsule by mouth once daily. Ascorbic Acid 500 mg cpER Take by mouth once daily. cinnamon bark (CINNAMON ORAL) Take by mouth. Take 2,00mg daily. cholecalciferol (VITAMIN D3) 5,000 unit tab Take 5,000 Units by mouth once daily. pantoprazole DR (PROTONIX) 40 mg tablet TAKE 1 TABLET BY MOUTH ONCE DAILY AT 6 AM levothyroxine (SYNTHROID) 125 mcg tablet Take 125 mcg by mouth once daily. latanoprost (XALATAN) 0.005 % ophthalmic solution Use 1 Drop in both eyes daily at bedtime. No current facility-administered medications for this visit. ALLERGIES: ALLERGIES Allergen Reactions Darvon [Propoxyphen* Shortness of Breath, Other: See Comments No strength, bad dreams Iodine Anaphylaxis 12/24/23- pt. premedicated with 13 hrs, had CT scan with IV contrast. Patient denied any s/s of SOB, difficulty breathing, wheezing, itching or rash. Lotensin [Benazepri* Vomiting, Other: See Comments Coughing Rivaroxaban Other: See Comments Developed pericardial effusion Shellfish Anaphylaxis Shellfish Containin* Anaphylaxis, Shortness of Breath Spironolactone Other: See Comments Weak, made calcium level high, heart rate 20BPM Adhesive Rash Celecoxib Other: See Comments Due to kidneys Demeral [Meperidine] Vomiting Hydrochlorothiazide Other: See Comments Metformin Other: See Comments Metoprolol Shortness of Breath Penicillins Hives Simvastatin Myalgia, Other: See Comments Sitagliptin Other: See Comments CHIEF COMPLAINT: Lynette Angulo is a 85 year old White female seen today. Patient presents with: Follow Up High blood pressure HISTORY OF PRESENT CARDIOVASCULAR ILLNESS: Patient presents for ongoing management of cardiovascular risk factors--specifically blood pressure,stage 4 CKD, proteinuria. Dr Cifuentes patient. Sent to ER with high K 6.2 11/16/2024. Hospitalized two days. Karendia was stopped and olmesartan was decreased to 20mg. Sees nephrology next week. 84 year old female with a PMH significant for pericarditis, type 2 diabetes mellitus, SSS (status post PPM), aortic stenosis, 02/09/24 TAVR, hx of atrial fibrillation/flutter,CAD with cath 05/14/24 which showed 60 to 70% ostial RCA s/p drug coated Paclitaxel balloon, cutting balloon as well as IVL with shock wave therapy and 60% ostial D2 with moderate disease in mid LAD and OM1, diastolic HF. Has follow up with Yonis later this month. TTE 04/16/24: EF 59%, 1.2/0.9, mod dil LA, 1+ MR, 2+ TR, Balderas S3 Ultra prosthetic valve size #23, pk/mean AV grad 24/15, peak AV abdullahi 245 cm/s, trace-1+[place], asc Ao 3.3 cm, RVSP 40 mmHg Previously seen by Dr. Suazo 06/24/[address] Shetty 05/11/2024. Est care 11/09/[address] Clements (now following with instead of Diogenes) for cardiology. Has had falls-fell last week, slipper caught in plastic pad. States R leg feels swollen and hot since fall, also painful in calf. States has been off colchicine for 6 months (on for pericarditis previously). Is not taking isosorbide mononitrate prescribed per Starr's service for shortness of breath in the event it was a anginal equivalent. She was afraid it would lover blood pressure too much. Home BPs -does not take often Most if goes up later in day is 156/70s. In clinic today 137/57, morning can range 115-120s in morning per patient, then increases later in day to 130s, at most 156/70 which is not often. Chest pain: No Claudication: No SOB: yes with exertion, not knew and unchanged from pre (more content not included)...[facility]05-06-[facility]25 Evaluation note* Diagnosis Onset Date Resolution Status Admit Date Subcutaneous nodule resolved February 012024 1:47pm Acquired hypothyroidism acute J 2024 10:53am Osteoarthritis acute April 12, 2025 10:53am CLIFFORD (obstructive sleep apnea) chroni c April 12, 2025 10:53am Essential hypertension inactive Ju ly 2024 10:53am Controlled type 2 diabetes mellitus deleted April 12, 2025 10:53am Change in bowel habits noneactive ly 2024 10:53am Osteoporosis noneactive April 12, 10:53am CKD (chronic kidney disease) stage 3, GFR 30-59 ml/min noneactive March 292024 10:53am CAD (coronary artery disease) noneac tive April 12, 2025 10:53am Recurrent UTI noneactive April 12, 2025 10:53am Obesity (BMI 30-39.9) noneactive Mar 10:53am Aortic stenosis acute May 132024 10:42am Coronary artery disease acute A ugust 2024 10:42am Chronic pericarditis with effusion chronic May 13 10:42am History of permanent cardiac pacemaker placement June, chronic May 13, 2025 10:42am LVH (left ventricular hypertrophy) chronic May 13 10:42am Sick sinus syndrome chronic Augus t 2024 10:42am [facility] Work Phone: 1(253) 795-570105-06-2025 Evaluation note* Diagnosis Onset Date Resolution Status Admit Date Subcutaneous nodule resolved February 012024 1:47pm Acquired hypothyroidism acute J 2024 10:53am Osteoarthritis acute April 12, 2025 10:53am CLIFFORD (obstructive sleep apnea) chroni c April 12, 2025 10:53am Essential hypertension inactive Ju ly 2024 10:53am Controlled type 2 diabetes mellitus deleted April 12, 2025 10:53am Change in bowel habits noneactive ly 2024 10:53am Osteoporosis noneactive April 12, 2 025 10:53am CKD (chronic kidney disease) stage 3, GFR 30-59 ml/min noneactive March 292024 10:53am CAD (coronary artery disease) noneac tive April 12, 2025 10:53am Recurrent UTI noneactive April 12, 2025 10:53am Obesity (BMI 30-39.9) noneactive Mar 10:53am Aortic stenosis acute May 132024 10:42am Coronary artery disease acute A ugust 2024 10:42am Chronic pericarditis with effusion chronic May 13 10:42am History of permanent cardiac pacemaker placement June, chronic May 13, 2025 10:42am LVH (left ventricular hypertrophy) chronic May 13 10:42am Sick sinus syndrome chronic Augus t 2024 10:42am Chronic UTI chronic May 17, 2025 11:09am [facility] Work Phone: 1(152) 178-370205-06-2025 Evaluation note* Diagnosis Onset Date Resolution Status Admit Date Subcutaneous nodule resolved February 012024 1:47pm Acquired hypothyroidism acute J darius 2024 10:53am Osteoarthritis acute April 12, 2025 10:53am CLIFFORD (obstructive sleep apnea) chroni c April 12, 2025 10:53am Essential hypertension inactive ly 2024 10:53am Controlled type 2 diabetes mellitus deleted April 12, 2025 10:53am Change in bowel habits noneactive ly 2024 10:53am Osteoporosis noneactive April 12, 2 025 10:53am CKD (chronic kidney disease) stage 3, GFR 30-59 ml/min noneactive March 292024 10:53am CAD (coronary artery disease) noneac tive April 12, 2025 10:53am Recurrent UTI noneactive April 12, 2025 10:53am Obesity (BMI 30-39.9) noneactive Mar 10:53am Aortic stenosis acute May 132024 10:42am Coronary artery disease acute A ugust 2024 10:42am Chronic pericarditis with effusion chronic May 13 10:42am History of permanent cardiac pacemaker placement June, chronic May 13, 2025 10:42am LVH (left ventricular hypertrophy) chronic May 13 10:42am Sick sinus syndrome chronic Aprus 2024 10:42am Chronic UTI chronic May 17, 2025 11:09am Anemia acute May 17 025 1:05pm [facility] Work Phone: 1(833) 251-620305-06-2025 Evaluation note* Diagnosis Onset Date Resolution Status Admit Date Subcutaneous nodule resolved February 012024 1:47pm Acquired hypothyroidism acute J darius 2024 10:53am Osteoarthritis acute April 12, 2025 10:53am CLIFFORD (obstructive sleep apnea) chroni c April 12, 2025 10:53am Essential hypertension inactive 2024 10:53am Controlled type 2 diabetes mellitus deleted April 12, 2025 10:53am Change in bowel habits noneactive 2024 10:53am Osteoporosis noneactive April 12 025 10:53am CKD (chronic kidney disease) stage 3, GFR 30-59 ml/min noneactive March 292024 10:53am CAD (coronary artery disease) noneac tive April 12, 2025 10:53am Recurrent UTI noneactive April 12, 2025 10:53am Obesity (BMI 30-39.9) noneactive Mar 10:53am Aortic stenosis acute May 132024 10:42am Coronary artery disease acute A ugust 2024 10:42am Shortness of breath acute Aprus 2024 10:42am Chronic pericarditis with effusion chronic May 13 10:42am History of permanent cardiac pacemaker placement June, chronic May 13, 2025 10:42am LVH (left ventricular hypertrophy) chronic May 13 10:42am Sick sinus syndrome chronic 2024 10:42am Constipation acute May 17, 2025 11:09am Diabetes acute May 17, 2 025 11:09am Nocturnal enuresis acute May 17, 2025 11:09am Overactive bladder acute May 17, 2025 11:09am Urge incontinence acute May 17, 2025 11:09am Vaginal atrophy acute May 172024 11:09am Chronic UTI chronic May 17, 2025 11:09am Anemia acute May 17 1:05pm Anemia acute May 24 10:42am Aortic stenosis acute May 242024 10:42am Shortness of breath acute Augus t 2024 10:42am Obesity chronic May 24 10:42am CLIFFORD (obstructive sleep apnea) chroni c May 24, 2025 10:42am Secondary pulmonary arterial hypertension chronic May 24 10:42am [facility] Work Phone: 1(903) 415-250404-14-2025 Telephone encounter Note* Telephone Encounter - Harjinder Stephen RN - 01/10/2025 9:38 AM EDT Spoke with pt. States her symptoms are about the same. She is still experiencing edema in her ankles/legs along with SOB. States she [facility] [place] and was told they were going to be out of lasix until 01/24. Pt has been taking an old rx of lasix. Asked pt if I there is another pharmacy we could send her lasix rx too. Would like it sent to [facility] in [place]. Pened new rx Pt mentioned she experienced extreme pain in her waist hip area standing up the other day. She wentto the chiropractor and they mentioned she has a lot of swelling in that area. She is following up with them again today. Advised pt she can increase lasix 40 mg daily 2-3 days and then resume 20 mg daily. Provided nurse line number to call and update our office on how she is feeling in a week or so. [facility]04-14-2025 Miscellaneous Notes* Telephone Encounter - Harjinder Stephne RN - 01/10/2025 9:38 AM EDT Spoke with pt. States her symptoms are about the same. She is still experiencing edema in her ankles/legs along with SOB. States she went to picker/puller her lasix rx from [facility] in [place] and was told they were going to be out of lasix until 01/24. Pt has been taking an old rx of lasix. Asked pt if I there is another pharmacy we could send her lasix rx too. [facility] sent [facility] in [place]. Pened new rx Pt mentioned she experienced extreme pain in her waist hip area standing up the other day. She wentto the chiropractor and they mentioned she has a lot of swelling in that area. She is following up with them again today. Advised pt she can increase lasix 40 mg daily 2-3 days and then resume 20 mg daily. Provided nurse line number to call and update our office on how she is feeling in a week or so. documented in this [facility] [place] Evaluation note* Diagnosis Onset Date Resolution Status Admit Date Subcutaneous nodule resolved 2025 1:24pm Subcutaneous nodule resolved February 012024 1:47pm Acquired hypothyroidism acute J darius 2024 10:53am Osteoarthritis acute April 12, 2025 10:53am CLIFFORD (obstructive sleep apnea) chroni c April 12, 2025 10:53am Essential hypertension inactive Ju ly 2024 10:53am Controlled type 2 diabetes mellitus deleted April 12, 2025 10:53am Change in bowel habits noneactive Ju ly 2024 10:53am Osteoporosis noneactive April 12, 2 025 10:53am CKD (chronic kidney disease) stage 3, GFR 30-59 ml/min noneactive March 292024 10:53am CAD (coronary artery disease) noneac tive April 12, 2025 10:53am Recurrent UTI noneactive April 12, 2025 10:53am Obesity (BMI 30-39.9) noneactive Duatre y 2024 10:53am [facility] Work Phone: 1(367) 774-598804-08-2025 Instructions* Patient Instructions* Mera Hudson APRN.REFINERY PIPELINE OPERATOR - 01/04/2025 11:47 AM EDT It was great to see you today, as we discussed: 1. Your cholesterol looks great on your current dose of Atorvastatin 20 mg daily (1 tablet). No need to take 2 tablets as previously recommended. 2. For the Isosorbide (Imdur) I recommend taking this consistently for 5-7 days to see if you have any improvement in your breathing. If you do not you can stop it. 3. For the swelling I would like for you to start Lasix 20 mg daily. I have sent this to the pharmacy for you 4. Nonfasting blood work at any [facility] lab on Friday to check kidney function, electrolytes, and fluid number 5. I will be in touch once I see the results of your labs to let you know if we need to make any other changes 6. Follow up with Dr. Clements in April-May or sooner if need arises HAVE A GREAT BIRTHDAY TOMORROW! documented in this encounterSelect [facility] [place] History of Present illness Narrative* Mera Hudson APRN.MOIZ - 01/04/2025 11:30 AM EDT Images from the original note were not included. [facility] [place] [facility] Department of Cardiovascular Medicine SECTION OF CLINICAL CARDIOLOGY OUTPATIENT VISIT DATE January 04, 2025 OUTPATIENT VISIT TYPE ESTABLISHED PRIMARY CARE PHYSICIAN: Jorge Benavides [address] [place] [id number] CHIEF COMPLAINT: Follow up HISTORY OF PRESENT ILLNESS: Ms. Angulo is a 84 year old female with history of CAD s/p PCI/MARGY to RCA (04/2024), aortic stenosis s/p TAVR (01/2024), pericarditis, SSS s/p PPM (09/2017), LBBB, paroxysmal atrial fibrillation, chronic diastolic heart failure, HTN, HLD, CLIFFORD, T2DM, and thyroid disease who presents today for a cardiovascular medicine follow-up visit. She was last seen in the office by Dr. Clements on 11/09/24 at which time she noted continued shortness of breath with daily activities unchanged from symptoms since her prior LHC and TAVR last year. She additionally noted significant left knee pain limiting her ability to exercise. She was started on Imdur 30 mg daily for possible anginal equivalent. Her cholesterol was additionally noted not to be at goal for which her lovastatin was changed to atorvastatin 40 mg daily. Plan was for repeat FLP/LFTs in 4 to 6 weeks and follow-up thereafter. Subsequently found to have hyperkalemia of 6.2 on lab work for which she was evaluated in the emergency department. Since her last office visit she has continued to have shortness of breath with exertion such as walking back to the exam room today. She reports this has been ongoing since her TAVR and PCI in 2023 and is unchanged. She has only taken a few doses of the previously prescribed Imdur as she was nervous it would be too much with her other blood pressure pills. On the days that she did take the Imdur she did not have any lightheadedness nor did she note any improvement in her breathing. She additionally is only taking 20 mg of atorvastatin as she was nervous she would not tolerate the recommended higher dose. About a week ago she began noting worsening lower extremity edema. She periodically weighs herself at home and notes she has been gaining weight. She also feels like her abdomen is tight.She is prescribed Lasix 10 mg daily but as not been taking this for at least 8 months now. She denies any orthopnea or PND. Subjective PAST MEDICAL HISTORY Diagnosis Date Anemia Aortic stenosis Atrial fibrillation (HCC) Atrial flutter (HCC) Bradycardia Cancer (HCC) thyroid Chronic kidney disease Diabetes (HCC) Gout Heart attack (HCC) HLD (hyperlipidemia) Hypertension Pericardial effusion Recurrent UTI Sleep apnea CPAP SSS (sick sinus syndrome) (HCC) Thyroid disease PAST SURGICAL HISTORY Procedure Laterality Date APPENDECTOMY HX CATARACT SURGERY, COMPLEX HYSTERECTOMY HX PPM DUAL 2018 THYROIDECTOMY TOTAL/COMPLETE Parathyroid removal TOTAL KNEE REPLACEMENT Left x2- one revision Social History Tobacco Use Smoking status: Never Smokeless tobacco: Never Vaping Use Vaping status: Never Used Substance Use Topics Alcohol use: No Drug use: Never FAMILY HISTORY Problem Relation Age of Onset Uterine Cancer Mother Hypertension Father Lung Cancer Father other (Vascular) Son Hypertension Son ALLERGIES: ALLERGIES Allergen Reactions Darvon [Propoxyphen* Shortness of Breath, Other: See Comments No strength, bad dreams Iodine Anaphylaxis 12/24/23- pt. premedicated with 13 hrs, had CT scan with IV contrast. Patient denied any s/s of SOB, difficulty breathing, wheezing, itching or rash. Lotensin [Benazepri* Vomiting, Other: See Comments Coughing Rivaroxaban Other: See Comments Developed pericardial effusion Shellfish Anaphylaxis Shellfish Containin* Anaphylaxis, Shortness of Breath Spironolactone Other: See Comments Weak, made calcium level high, heart rate 20BPM Adhesive Rash Celecoxib Other: See Comments Due to kidneys Demeral [Meperidine] Vomiting Hydrochlorothiazide Other: See Comments Metformin Other: See Comments Metoprolol Shortness of Breath Penicillins Hives Simvastatin Myalgia, Other: See Comments Sitagliptin Other: See Comments MEDICATIONS: amLODIPine (NORVASC) 10 mg tablet Take 1 tablet by mouth once daily. carvedilol (COREG) 25 mg tablet Take 1 tablet by mouth two times a day with meals. doxazosin (CARDURA) 4 mg tablet Take 1 tablet by mouth daily at bedtime. olmesartan (BENICAR) 40 mg tablet Take 1 tablet by mouth once daily. isosorbide mononitrate ER (IMDUR) 30 mg 24 hr tablet Take 1 tablet by mouth once daily. apixaban (ELIQUIS) 2.5 mg tab(s) Take 1 tablet by mouth two times a day. clopidogrel (PLAVIX) 75 mg tablet Take 1 tablet by mouth once daily. Patient should start on 2023. glimepiride (AMARYL) 1 mg tablet Take 1 tablet by mouth daily with breakfast. colchicine 0.6 mg tablet Take 1 tablet by mouth every other day. finerenone (KERENDIA) 10 mg tablet q 24 HR. omega 0-vla-swi-fish oil 360 mg-108 mg- 180 mg-1,200 mg cap q 24 HR. vibegron (GEMTESA) 75 mg tablet Take 1 tablet by mouth once daily. Cranberry 500 mg cap Take 1 capsule by mouth once daily. Ascorbic Acid 500 mg cpER Take by mouth once daily. cinnamon bark (CINNAMON ORAL) Take by mouth. Take 2,00mg daily. cholecalciferol (VITAMIN D3) 5,000 unit tab Take 5,000 Units by mouth once daily. pantoprazole DR (PROTONIX) 40 mg tablet TAKE 1 TABLET BY MOUTH ONCE DAILY AT 6 AM levothyroxine (SYNTHROID) 125 mcg tablet Take 125 mcg by mouth once daily. latanoprost (XALATAN) 0.005 % ophthalmic solution Use 1 Drop in both eyes daily at bedtime. atorvastatin (LIPITOR) 20 mg tablet Take 1 tablet by mouth once daily. furosemide (LASIX) 20 mg tablet Take 1 tablet by mouth once daily. REVIEW OF SYSTEMS: CARD: See HPI GENERAL: Negative for: Weight loss or gain, Fever and/or Chills HEENT: Negative for: Headache, Impaired Vision, Glasses, Hearing Impairment, Ringing in Ears, Nosebleeds, Bleeding Gums NECK: Negative for: Swelling, Pain, Stiffness RESPIRATORY: Negative for: Cough, Blood in Sputum, Wheezing, Apnea +MCGOVERN GASTROINTESTINAL: Negative for: Nausea, Vomiting, Diarrhea, Blood in stool, or Dark black stools MUSCULOSKELETAL: +Arthralgias NEUROLOGIC: Negative for: focal numbness/weakness, headaches, visual changes, ataxia, speech/language loss SKIN: Negative for: Rashes, Itching HEMATOLOGICAL/LYMPHATIC: Negative for: Easy bruising , Easy bleeding ENDOCRINE: Negative for: Heat or cold intolerance, Excessive sweating, Frequent urination, Frequentthirst Objective PHYSICAL EXAMINATION: BP 128/70 Pulse 60 Wt 93.3 kg (205 lb 11 oz) SpO2 99% BMI 40.17 kg/m General: Well appearing, in no acute distress. Skin: No clubbing, no cyanosis. Eyes: Extra ocular movements intact Oropharynx: Teeth in good repair. Neck: No jugular venous distention, no carotid bruits, carotids have a normal upstroke. Lungs: Clear to auscultation bilaterally, no wheezing or rhonchi. Heart: Regular rhythm, S1, S2 normal, no S3, no S4, no heaves, no rub and 1/6 KULDIP. 2+ BLE edema to the knees. Grade 2/4 distal pulses bilaterally. Abdomen: Soft, nontender, bowel sounds normal, no bruits. Neuro: Oriented to person, place and time, alert, cooperative, gait coordinated. CARDIOVASCULAR MEDICINE TESTING: Last ECHO Result Conclusion ECHO Collected: 04/16/2024 9:20 AM (Final result) Impression: CONCLUSIONS: - Exam indication: S/P TAVR - The left ventricle is normal in size. There is mild left ventricular hypertrophy. Left ventricular systolic function is normal. EF = 59 5% (2D biplane) Grade I left ventricular diastolic dysfunction. - The right ventricle is normal in size. Right ventricular systolic function is normal. - The left atrial cavity is moderately dilated. - There is moderate (2+) tricuspid valve regurgitation caused by indeterminate. - S/P transcatheter aortic valve replacement. Balderas S3 Ultra prosthetic aortic valve (size #23). There is no aortic valve regurgitation. The peak gradient is 24 mmHg, the mean gradient is 15 mmHg and the dimensionless valve index is 0.29. Prior peak/mean AV gradients of 17/8 mmHg. - Estimated right ventricular systolic pressure is 40 mmHg plus right atrial pressure. Estimated right atrial pressure is not included as the IVC was not seen. - Exam was compared with the prior CC echocardiographic exam performed on 02/09/2024. Increase in gradients across the TAVR valve. * * * Final * * * Last EKG Result Conclusion ECG COMPLETE Collected: 05/14/2024 8:32 PM (Final result) Impression: AV DUAL-PACED COMPLEXES ABNORMAL ECG Confirmed by DEAN GERBER, SACHA ([id number]) on 06/08/2024 9:36:39 PM There were no tests performed for review. PLAN AND RECOMMENDATIONS: Coronary artery disease - Patient is s/p PCI to ostial RCA with drug coated Paclitaxel balloon, cutting balloon as well as IVL with shock wave therapy (no stent placed) on 05/14/2024 - Patient appears compensated from cardiac standpoint - Continue Plavix, Statin, CCB, and BB as currently ordered - Trial Imdur 30 mg daily, if no improvement can stop Aortic stenosis - s/p TAVR with Edward S3 Ultra #23 (01/2024) - Echo 03/2024: No AI, Pk/Mn gradient 24/15 mmHg. DVI 0.29 Sick sinus syndrome - s/p PPM placement in 2018 - Follows with Dr. Suazo Paroxysmal atrial fibrillation - Asymptomatic - [id number] Score of 7 (Age, gender, CHF, HTN, CAD, & DM) - Is anticoagulated with Eliquis 2.5 mg BID - Rate controlled on carvedilol - Follows with EP, Dr. Suazo Chronic diastolic heart failure - NYHA Functional Class III stage C Heart Failure - Echo 03/2024: EF 59%, mild LVH, grade IE LVDD, and normal RV size/systolic function - NT pro BNP 04/16/24: 485 (Prior 03/05/24: 1,963) - Volume status managed on no diuretics (has not been taking Lasix for ~8 months) - Patient appears volume overloaded on exam. - Encouraged to monitor sodium and fluid intake as well as daily weights - Lasix 20 mg daily - BMP, mag, NT pro BNP Left bundle branch block - Chronic Essential hypertension - Optimal control on olmesartan, isosorbide, amlodipine, carvedilol, and doxazosin - Encouraged dietary sodium restriction/DASH diet - Reviewed risks of HTN and principles of treatment - Goal of BP <130/80 - Trial Imdur as above Mixed hyperlipidemia - Currently on Atorvastatin 20 mg daily - Last lipid panel 11/2024 with LDL 65 - Normal LFTs 11/2024 Chronic kidney disease - Baseline creatinine 1.4-1.6 Diabetes mellitus type 2 - Most recent A1c 6.4 CONCLUSION: Patient presents today for follow-up with concerns of lower extremity edema over the last week. Shecontinues to have shortness of breath with exertion which she reports is chronic and unchanged since 2023. She appears fluid overloaded on exam with 2+ lower extremity edema and is up 7 lbs on our office scale. Will resume her Lasix at 20 mg daily. Will update blood work including BMP, mag, and NT proBNP. She was previously recommended Imdur due to concern her MCGOVERN is an anginal equivalent howevershe has not been regularly taking this due to concerns of low blood pressure. She has taken a few doses without any side effects. She was encouraged to take it for at least a week to see if it helps any with her shortness of breath. If no improvement in breathing she can discontinue. She additionally is only taking atorvastatin 20 mg daily rather than the recommended 40 mg. Her most recent cholesterol profile however is under optimal control on this dose thus no need to increase to 40 mg. Her heart rate and blood pressure remain under favorable control. She should continue to actively engage in cardiovascular risk factor modification and follow up with Dr. Somers as scheduled and with Dr. Clements in 4-5 months, or sooner should need arise. CONTACT INFORMATION: Mera Hudson APRN.[facility] Cardiology Nurse Practitioner Section [facility] Cardiology [facility] Dept of Cardiovascular Medicine [facility] [place] [address] [place], [place] [address] Office Office This note was partially generated using [employer] voice recognition system and may contain errors related to that system including grammar, punctuation, spelling, and words that may be inappropriate documented in this encounterSelect [facility] [place]25 NoteHNO ID: [id number] Author: MERA HUDSON APRN.CNP Service: ? Author Type: Nurse Practitioner Type: Progress Notes Filed: 01/04/2025 13:13 Note Text: [facility] [place] [facility] Department of Cardiovascular Medicine SECTION OF CLINICAL CARDIOLOGY OUTPATIENT VISIT DATE January 04, 2025 OUTPATIENT VISIT TYPE ESTABLISHED PRIMARY CARE PHYSICIAN: Jorge Benavides [address] [place] [id number] CHIEF COMPLAINT: Follow up HISTORY OF PRESENT ILLNESS: Ms. Angulo is a 84 year old female with history of CAD s/p PCI/MARGY to RCA (04/2024), aortic stenosis s/p TAVR (01/2024), pericarditis, SSS s/p PPM (09/2017), LBBB, paroxysmal atrial fibrillation, chronic diastolic heart failure, HTN, HLD, CLIFFORD, T2DM, and thyroid disease who presents today for a cardiovascular medicine follow-up visit. She was last seen in the office by Dr. Clements on 11/09/24 at which time she noted continued shortness of breath with daily activities unchanged from symptoms since her prior LHC and TAVR last year. She additionally noted significant left knee pain limiting her ability to exercise. She was started on Imdur 30 mg daily for possible anginal equivalent. Her cholesterol was additionally noted not to be at goal for which her lovastatin was changed to atorvastatin 40 mg daily. Plan was for repeat FLP/LFTs in 4 to 6 weeks and follow-up thereafter. Subsequently found to have hyperkalemia of 6.2 on lab work for which she was evaluated in the emergency department. Since her last office visit she has continued to have shortness of breath with exertion such as walking back to the exam room today. She reports this has been ongoing since her TAVR and PCI in 2023 and is unchanged. She has only taken a few doses of the previously prescribed Imdur as she was nervous it would be too much with her other blood pressure pills. On the days that she did take the Imdur she did not have any lightheadedness nor did she note any improvement in her breathing. She additionally is only taking 20 mg of atorvastatin as she was nervous she would not tolerate the recommended higher dose. About a week ago she began noting worsening lower extremity edema. She periodically weighs herself at home and notes she has been gaining weight. She also feels like her abdomen is tight. She is prescribed Lasix 10 mg daily but as not been taking this for at least 8 months now. She denies any orthopnea or PND. Subjective PAST MEDICAL HISTORY Diagnosis Date Anemia Aortic stenosis Atrial fibrillation (HCC) Atrial flutter (HCC) Bradycardia Cancer (HCC) thyroid Chronic kidney disease Diabetes (HCC) Gout Heart attack (HCC) HLD (hyperlipidemia) Hypertension Pericardial effusion Recurrent UTI Sleep apnea CPAP SSS (sick sinus syndrome) (HCC) Thyroid disease PAST SURGICAL HISTORY Procedure Laterality Date APPENDECTOMY HX CATARACT SURGERY, COMPLEX HYSTERECTOMY HX PPM DUAL 2018 THYROIDECTOMY TOTAL/COMPLETE Parathyroid removal TOTAL KNEE REPLACEMENT Left x2- one revision Social History Tobacco Use Smoking status: Never Smokeless tobacco: Never Vaping Use Vaping status: Never Used Substance Use Topics Alcohol use: No Drug use: Never FAMILY HISTORY Problem Relation Age of Onset Uterine Cancer Mother Hypertension Father Lung Cancer Father other (Vascular) Son Hypertension Son ALLERGIES: ALLERGIES Allergen Reactions Darvon [Propoxyphen* Shortness of Breath, Other: See Comments No strength, bad dreams Iodine Anaphylaxis 12/24/23- pt. premedicated with 13 hrs, had CT scan with IV contrast. Patient denied any s/s of SOB, difficulty breathing, wheezing, itching or rash. Lotensin [Benazepri* Vomiting, Other: See Comments Coughing Rivaroxaban Other: See Comments Developed pericardial effusion Shellfish Anaphylaxis Shellfish Containin* Anaphylaxis, Shortness of Breath Spironolactone Other: See Comments Weak, made calcium level high, heart rate 20BPM Adhesive Rash Celecoxib Other: See Comments Due to kidneys Demeral [Meperidine] Vomiting Hydrochlorothiazide Other: See Comments Metformin Other: See Comments Metoprolol Shortness of Breath Penicillins Hives Simvastatin Myalgia, Other: See Comments Sitagliptin Other: See Comments MEDICATIONS: amLODIPine (NORVASC) 10 mg tablet Take 1 tablet by mouth once daily. carvedilol (COREG) 25 mg tablet Take 1 tablet by mouth two times a day with meals. doxazosin (CARDURA) 4 mg tablet Take 1 tablet by mouth daily at bedtime. olmesartan (BENICAR) 40 mg tablet Take 1 tablet by mouth once daily. isosorbide mononitrate ER (IMDUR) 30 mg 24 hr tablet Take 1 tablet by mouth once daily. apixaban (ELIQUIS) 2.5 mg tab(s) Take 1 tablet by mouth two times a day. clopidogrel (PLAVIX) 75 mg tablet Take 1 tablet by mouth once daily. Patient should start o (more content not included)...[facility] 12-23-2024 Telephone encounter Note* Telephone Encounter - Harjinder Stephen RN - 12/23/2024 3:20 PM EDT Pt informed about labs [facility]03-27-2025 Miscellaneous Notes* Telephone Encounter - Harjinder Stephen RN - 12/23/2024 3:20 PM EDT Pt informed about labs documented in this encounterSelect Medical [facility] [place] Radiology Diagnostic study note [facility] Imaging Services [address] [place] [address] Other Unlisted US Procedure MR#: [id number] Acct: [id number] Name: LYNETTE ANGULO Rep #: [id number] : 1940 F 84 From: Queta Schmidt MD PCP: Dr. Jorge Benavides MD Status: [facility] CLI Study:Other Unlisted US Procedure Date of Exa m: 12/20/24 Exam# [id number] Ordering Dr: Jorge Benavides MD PROCEDURE: OTHER UNLISTED US PROCEDURE REASON FOR EXAM: 84-year-old female, SUBCUTANEOUS NODULE OF ABDOMEN TECHNIQUE: Ultrasound imaging of subcutaneous tissues of the ventral midline lower abdomen. COMPARISON: None. FINDINGS: There is a palpable mass within the left lower quadrant/midline of the lower abdomen, measuring 1.2x 1.2 x 0.8 cm. The mass is hyperechoic, with an area of central anechogenicity measuring 0.3 x 0.3 x 0.2 cm. DOPPLER: Color Doppler: No discrete blood flow within the mass. US/Other Unlisted US Procedure IMPRESSION: Subcutaneous hyperechoic nodule along the left lower quadrant/midline abdomen. Findings are nonspecific and may represent a site of fat necrosis. Additional considerations may include schwannoma, myxoma or subcutaneous cyst. Reading Location: [facility] CC: Dr. Jorge Benavides MD ~ Customer Engagement Specialist: Signed [facility]03-21-2025 Evaluation note* Diagnosis Onset Date Resolution Status Admit Date Change in consistency of stool acute December 17, 2024 10:09am Subcutaneous nodule resolved 2025 1:24pm Subcutaneous nodule resolved February 012024 1:47pm Acquired hypothyroidism acute J darius 2024 10:53am Osteoarthritis acute April 12, 2025 10:53am CLIFFORD (obstructive sleep apnea) chroni c April 12, 2025 10:53am Essential hypertension inactive ly 2024 10:53am Controlled type 2 diabetes mellitus deleted April 12, 2025 10:53am Change in bowel habits noneactive Ju ly 2024 10:53am Osteoporosis noneactive April 12, 025 10:53am CKD (chronic kidney disease) stage 3, GFR 30-59 ml/min noneactive March 292024 10:53am CAD (coronary artery disease) noneac tive April 12, 2025 10:53am Recurrent UTI noneactive April 12, 2025 10:53am Obesity (BMI 30-39.9) noneactive Mar 10:53am [facility] Work Phone: 1(991) 202-696702-19-2025 [facility]02-18-2025 Evaluation note* Diagnosis Onset Date Resolution Status Admit Date Hyperkalemia resolved October 7:53pm Aortic stenosis inactive November 16, 2024 7:53pm Diabetes mellitus, type 2 inactive November 16, 2024 7:53pm Essential hypertension inactive [place] 2024 7:53pm HLD (hyperlipidemia) inactive [facility] uary 2024 7:53pm PAF (paroxysmal atrial fibrillation) inactive November 16, 025 7:53pm Stage 4 chronic kidney disease inactive November 16 7:53pm Change in bowel habits noneactive [facility] 2024 10:20am CKD (chronic kidney disease) stage 3, GFR 30-59 ml/min noneactive December 09, 2024 10:20am Recurrent UTI noneactive December 09, 2024 10:20am Subcutaneous nodule noneactive December 09, 2024 10:20am Hospital discharge follow-up noneact thomas December 09, 2024 10:20am Hyperkalemia noneactive December 09, 2024 10:20am Change in consistency of stool acute December 17, 2024 10:09am Subcutaneous nodule resolved 2025 1:24pm Subcutaneous nodule resolved February 012024 1:47pm [facility] Work Phone: 1(258) 196-766802-18-2025 Telephone encounter Note* Telephone Encounter - Razia Christine APRN.CNP - 11/16/2024 1:11 PM EST phoned patient regarding elevated potassium level 6.2 advised her to go to her local ER for assessment and management of this value Patient expressed agreement and understanding. Razia Christine APRN.CNP [facility] [place] Work Phone: 1(217) 501-553702-18-2025 Miscellaneous Notes* Telephone Encounter - Razia Christine APRN.CNP - 11/16/2024 1:11 PM EST phoned patient regarding elevated potassium level 6.2 advised her to go to her local ER for assessment and management of this value Patient expressed agreement and understanding. Razia Christine APRN.CNP * Telephone Encounter - Megan Mackey - 11/16/2024 12:56 PM EST High critical Potassium 6.2 documented in [facility] [place] Telephone encounter Note * Telephone Encounter - Megan Mackey - 11/16/2024 12:56 PM EST High critical Potassium 6.2 [facility] [place]02-18-2025 Telephone encounter Note* Telephone Encounter - Domenic Serrano APRN.CNP - 11/16/2024 10:00 AM EST Called patient and notified K 5.5 on recent BMP. She will go to lab today or tomorrow and repeat. Order placed. Domenic Serrano APRN.CNP [facility] [place]02-18-2025 Miscellaneous Notes* Telephone Encounter - Domenic Serrano APRN.CNP - 11/16/2024 10:00 AM EST Called patient and notified K 5.5 on recent BMP. She will go to lab today or tomorrow and repeat. Order placed. Domenic Serrano APRN.CNP documented in [facility] [place] Telephone encounter Note * Telephone Encounter - Razia Clements MD - 11/12/2024 10:13 AM EST I spoke to Lynette and and reviewed her lipids and LFTs 11/11/24 results with her: LDL 80, direct bilirubin 0.3 (<0.3 normal). She is currently still taking 20 mg atorvastatin once daily. She will increase atorvastatin to 40 mg once daily from today and she was advised to proceed to thelab 4 to 6 weeks after atorvastatin dose increment to 40 mg once daily is made. [facility] [place]02-14-2025 Miscellaneous Notes* Telephone Encounter - Razia Clements MD - 11/12/2024 10:13 AM EST I spoke to Lynette and and reviewed her lipids and LFTs 11/11/24 results with her: LDL 80, direct bilirubin 0.3 (<0.3 normal). She is currently still taking 20 mg atorvastatin once daily. She will increase atorvastatin to 40 mg once daily from today and she was advised to proceed to thelab 4 to 6 weeks after atorvastatin dose increment to 40 mg once daily is made. documented in this encounter[facility] [place]25 NoteHNO ID: [id number] Author: DOMENIC SERRANO APRN.REFINERY PIPELINE OPERATOR Service: ? Author Type: Nurse Practitioner Type: Progress Notes Filed: 11/10/2024 13:42 Note Text: [facility] [place] [facility] Department of Cardiovascular Medicine SECTION OF PREVENTIVE CARDIOLOGY 11/10/2024 Lynette Angulo CURRENT MEDS: Current Outpatient Medications Medication Sig isosorbide mononitrate ER (IMDUR) 30 mg 24 hr tablet Take 1 tablet by mouth once daily. atorvastatin (LIPITOR) 20 mg tablet Take 2 tablets by mouth once daily. amLODIPine (NORVASC) 10 mg tablet Take 1 tablet by mouth once daily. apixaban (ELIQUIS) 2.5 mg tab(s) Take 1 tablet by mouth two times a day. clopidogrel (PLAVIX) 75 mg tablet Take 1 tablet by mouth once daily. Patient should start on May 15, 2024. furosemide (LASIX) 20 mg tablet Take 0.5 tablets by mouth once daily. glimepiride (AMARYL) 1 mg tablet Take 1 tablet by mouth daily with breakfast. colchicine 0.6 mg tablet Take 1 tablet by mouth every other day. olmesartan (BENICAR) 40 mg tablet Take 1 tablet by mouth once daily. finerenone (KERENDIA) 10 mg tablet q 24 HR. omega 2-icg-ejl-fish oil 360 mg-108 mg- 180 mg-1,200 mg cap q 24 HR. vibegron (GEMTESA) 75 mg tablet Take 1 tablet by mouth once daily. Cranberry 500 mg cap Take 1 capsule by mouth once daily. Ascorbic Acid 500 mg cpER Take by mouth once daily. cinnamon bark (CINNAMON ORAL) Take by mouth. Take 2,00mg daily. cholecalciferol (VITAMIN D3) 5,000 unit tab Take 5,000 Units by mouth once daily. pantoprazole DR (PROTONIX) 40 mg tablet TAKE 1 TABLET BY MOUTH ONCE DAILY AT 6 AM levothyroxine (SYNTHROID) 125 mcg tablet Take 125 mcg by mouth once daily. latanoprost (XALATAN) 0.005 % ophthalmic solution Use 1 Drop in both eyes daily at bedtime. doxazosin (CARDURA) 4 mg tablet Take 1 tablet by mouth daily at bedtime. carvedilol (COREG) 25 mg tablet Take 1 tablet by mouth twice daily with meals. No current facility-administered medications for this visit. ALLERGIES: ALLERGIES Allergen Reactions Darvon [Propoxyphen* Shortness of Breath, Other: See Comments No strength, bad dreams Iodine Anaphylaxis 12/24/23- pt. premedicated with 13 hrs, had CT scan with IV contrast. Patient denied any s/s of SOB, difficulty breathing, wheezing, itching or rash. Lotensin [Benazepri* Vomiting, Other: See Comments Coughing Rivaroxaban Other: See Comments Developed pericardial effusion Shellfish Anaphylaxis Shellfish Containin* Anaphylaxis, Shortness of Breath Spironolactone Other: See Comments Weak, made calcium level high, heart rate 20BPM Adhesive Rash Celecoxib Other: See Comments Due to kidneys Demeral [Meperidine] Vomiting Hydrochlorothiazide Other: See Comments Metformin Other: See Comments Metoprolol Shortness of Breath Penicillins Hives Simvastatin Myalgia, Other: See Comments Sitagliptin Other: See Comments CHIEF COMPLAINT: Lynette Angulo is a 84 year old White female seen today. Patient presents with: Follow Up HISTORY OF PRESENT CARDIOVASCULAR ILLNESS: Patient presents for ongoing management of cardiovascular risk factors--specifically blood pressure,stage 4 CKD, proteinuria. Dr Cifuentes patient. 84 year old female with a PMH significant for pericarditis, type 2 diabetes mellitus, SSS (status post PPM), aortic stenosis, 02/09/24 TAVR, hx of atrial fibrillation/flutter,CAD with cath 05/14/24 which showed 60 to 70% ostial RCA s/p drug coated Paclitaxel balloon, cutting balloon as well as IVL with shock wave therapy and 60% ostial D2 with moderate disease in mid LAD and OM1, diastolic HF. Previously seen by Dr. Suazo 06/24/[address] Shetty 05/11/2024. Yesterday 11/09/[address] Clements (now following with instead of Diogenes) for cardiology follow up. TTE 04/16/24: EF 59%, 1.2/0.9, mod dil LA, 1+ MR, 2+ TR, Balderas S3 Ultra prosthetic valve size #23, pk/mean AV grad /15, peak AV abdullahi 245 cm/s, trace-1+[place], asc Ao 3.3 cm, RVSP 40 mmHg Chest pain: No Claudication: No SOB: yes with exertion, Dr Clements started isosorbide mononitrate to help assess whether angina equivalent, possible nuclear stress testing if unclear Orthopnea: No PND: No LE: chronic, typical today Lightheadedness/dizziness: some dizziness --positional Palpitations:No Bleeding/bruising: bruises easier --on apixaban, clopidogrel CARDIAC RISK FACTORS: Diabetes : Hypertension : Exercise: Does not exercise Limited by knee pain Avg. Sleep Hours Per Night?: 5.5 STATIN INTOLERANCE: Adverse Effect History of Statin Intolerance:: No Current Statin Freq: Every Day USE OF PCSK9 INHIBITORS: CARDIOVASCULAR DISEASE HISTORY: CAD EVENTS; PVD EVENTS: PTCA/Stent Renal Artery: Yes CVD EVENTS: FAMILY AND SOCIAL HISTORY Lifestyle Tobacco Use: Never Alcohol Use: No PHYSICAL EXAMINATION Vital Signs and General Appearance BP (!) 124/46 (BP Site: Left Arm, BP Posi (more content not included)... [facility]02-12-2025 History of Present illness Narrative* Domenic Serrano APRN.REFINERY PIPELINE OPERATOR - 11/10/2024 10:40 AM EST Images from the original note were not included. [facility] [place] [facility] Department of Cardiovascular Medicine SECTION OF PREVENTIVE CARDIOLOGY 11/10/2024 Lynette Angulo CURRENT MEDS: Current Outpatient Medications Medication Sig isosorbide mononitrate ER (IMDUR) 30 mg 24 hr tablet Take 1 tablet by mouth once daily. atorvastatin (LIPITOR) 20 mg tablet Take 2 tablets by mouth once daily. amLODIPine (NORVASC) 10 mg tablet Take 1 tablet by mouth once daily. apixaban (ELIQUIS) 2.5 mg tab(s) Take 1 tablet by mouth two times a day. clopidogrel (PLAVIX) 75 mg tablet Take 1 tablet by mouth once daily. Patient should start on 2023. furosemide (LASIX) 20 mg tablet Take 0.5 tablets by mouth once daily. glimepiride (AMARYL) 1 mg tablet Take 1 tablet by mouth daily with breakfast. colchicine 0.6 mg tablet Take 1 tablet by mouth every other day. olmesartan (BENICAR) 40 mg tablet Take 1 tablet by mouth once daily. finerenone (KERENDIA) 10 mg tablet q 24 HR. omega 3-vnp-qfa-fish oil 360 mg-108 mg- 180 mg-1,200 mg cap q 24 HR. vibegron (GEMTESA) 75 mg tablet Take 1 tablet by mouth once daily. Cranberry 500 mg cap Take 1 capsule by mouth once daily. Ascorbic Acid 500 mg cpER Take by mouth once daily. cinnamon bark (CINNAMON ORAL) Take by mouth. Take 2,00mg daily. cholecalciferol (VITAMIN D3) 5,000 unit tab Take 5,000 Units by mouth once daily. pantoprazole DR (PROTONIX) 40 mg tablet TAKE 1 TABLET BY MOUTH ONCE DAILY AT 6 AM levothyroxine (SYNTHROID) 125 mcg tablet Take 125 mcg by mouth once daily. latanoprost (XALATAN) 0.005 % ophthalmic solution Use 1 Drop in both eyes daily at bedtime. doxazosin (CARDURA) 4 mg tablet Take 1 tablet by mouth daily at bedtime. carvedilol (COREG) 25 mg tablet Take 1 tablet by mouth twice daily with meals. No current facility-administered medications for this visit. ALLERGIES: ALLERGIES Allergen Reactions Darvon [Propoxyphen* Shortness of Breath, Other: See Comments No strength, bad dreams Iodine Anaphylaxis 12/24/23- pt. premedicated with 13 hrs, had CT scan with IV contrast. Patient denied any s/s of SOB, difficulty breathing, wheezing, itching or rash. Lotensin [Benazepri* Vomiting, Other: See Comments Coughing Rivaroxaban Other: See Comments Developed pericardial effusion Shellfish Anaphylaxis Shellfish Containin* Anaphylaxis, Shortness of Breath Spironolactone Other: See Comments Weak, made calcium level high, heart rate 20BPM Adhesive Rash Celecoxib Other: See Comments Due to kidneys Demeral [Meperidine] Vomiting Hydrochlorothiazide Other: See Comments Metformin Other: See Comments Metoprolol Shortness of Breath Penicillins Hives Simvastatin Myalgia, Other: See Comments Sitagliptin Other: See Comments CHIEF COMPLAINT: Lynette Angulo is a 84 year old White female seen today. Patient presents with: Follow Up HISTORY OF PRESENT CARDIOVASCULAR ILLNESS: Patient presents for ongoing management of cardiovascular risk factors--specifically blood pressure,stage 4 CKD, proteinuria. Dr Cifuentes patient. 84 year old female with a PMH significant for pericarditis, type 2 diabetes mellitus, SSS (status post PPM), aortic stenosis, 02/09/24 TAVR, hx of atrial fibrillation/flutter,CAD with cath 05/14/24 which showed 60 to 70% ostial RCA s/p drug coated Paclitaxel balloon, cutting balloon as well as IVL with shock wave therapy and60% ostial D2 with moderate disease in mid LAD and OM1, diastolic HF. Previously seen by Dr. Suazo 06/24/[address] Shetty 05/11/2024. Yesterday 11/09/[address] Clements (now following with instead of Diogenes) for cardiology follow up. TTE 04/16/24: EF 59%, 1.2/0.9, mod dil LA, 1+ MR, 2+ TR, Balderas S3 Ultra prosthetic valve size #23,pk/mean AV grad /, peak AV abdullahi 245 cm/s, trace- 1+[place], asc Ao 3.3 cm, RVSP 40 mmHg Chest pain: No Claudication: No SOB: yes with exertion, Dr Clements started isosorbide mononitrate to help assess whether angina equivalent, possible nuclear stress testing if unclear Orthopnea: No PND: No LE: chronic, typical today Lightheadedness/dizziness: some dizziness --positional Palpitations:No Bleeding/bruising: bruises easier --on apixaban, clopidogrel CARDIAC RISK FACTORS: Diabetes : Hypertension : Exercise: Does not exercise Limited by knee pain Avg. Sleep Hours Per Night?: 5.5 STATIN INTOLERANCE: Adverse Effect History of Statin Intolerance:: No Current Statin Freq: Every Day USE OF PCSK9 INHIBITORS: CARDIOVASCULAR DISEASE HISTORY: CAD EVENTS; PVD EVENTS: PTCA/Stent Renal Artery: Yes CVD EVENTS: FAMILY AND SOCIAL HISTORY Lifestyle Tobacco Use: Never Alcohol Use: No PHYSICAL EXAMINATION Vital Signs and General Appearance BP (!) 124/46 (BP Site: Left Arm, BP Position: Sitting, BP Cuff Size: Large Adult) Pulse 74 Ht 152.4 cm (5') Wt 86.5 kg (190 lb 11.2 oz) BMI 37.24 kg/m BMI 37.24 kg/(m^2) PHYSICAL EXAMINATION: General appearance: well appearing, alert, in no acute distress, and well- hydrated, well nourished Carotid Pulses: Left:2+, Right: 2+, Bruit: No Lungs: lungs clear to auscultation no wheezing or rhonchi Heart: regular rate and rhythm, KULDIP Lower Extremities Pulses: Right Posterior Tibial: 2+, Left Posterior Tibial: 2+, Right Dorsalis Pedis: 2+, Left Dorsalis Pedis:2+, Edema: No significant edema Clinical Test Results Last ECHO Result Conclusion ECHO Collected: 04/16/2024 9:20 AM (Final result) Impression: CONCLUSIONS: - Exam indication: S/P TAVR - The left ventricle is normal in size. There is mild left ventricular hypertrophy. Left ventricular systolic function is normal. EF = 59 5% (2D biplane) Grade I left ventricular diastolic dysfunction. - The right ventricle is normal in size. Right ventricular systolic function is normal. - The left atrial cavity is moderately dilated. - There is moderate (2+) tricuspid valve regurgitation caused by indeterminate. - S/P transcatheter aortic valve replacement. Balderas S3 Ultra prosthetic aortic valve (size #23). There is no aortic valve regurgitation. The peak gradient is 24 mmHg, the mean gradient is 15 mmHg and the dimensionless valve index is 0.29. Prior peak/mean AV gradients of 17/8 mmHg. - Estimated right ventricular systolic pressure is 40 mmHg plus right atrial pressure. Estimated right atrial pressure is not included as the IVC was not seen. - Exam was compared with the prior CC echocardiographic exam performed on 02/09/2024. Increase in gradients across the TAVR valve. * * * Final * * * Last EKG Result Conclusion ECG COMPLETE Collected: 05/14/2024 8:32 PM (Final result) Impression: AV DUAL-PACED COMPLEXES ABNORMAL ECG Confirmed by DEAN GERBER, SACHA ([id number]) on 06/08/2024 9:36:39 PM Ejection Fraction: Ejection Fraction: Normal (>50%) Lab Results: Lipoprotein (a) Date Value Ref Range Status 12/24/2023 6 <30 mg/dL Final Cholesterol, Total Date Value Ref Range Status 11/19/2023 192 <200 mg/dL Final Comment: <200 mg/dL, Desirable 200-239 mg/dL, Borderline high >239 mg/dL, High Triglyceride Date Value Ref Range Status 11/19/2023 49 <150 mg/dL Final Comment: <150 mg/dL, Normal 150-199 mg/dL, Borderline high 200-499 mg/dL, High >499 mg/dL, Very high HDL Cholesterol Date Value Ref Range Status 11/19/2023 87 >39 mg/dL Final Comment: 40-59 mg/dL, Acceptable >59 mg/dL, High: Negative risk factor for coronary heart disease <40 mg/dL, Low: Positive risk factor for coronary heart disease LDL Cholesterol Date Value Ref Range Status 11/19/2023 95 <100 mg/dL Final Comment: <100 mg/dL, Optimal 100-129 mg/dL, Near optimal/above optimal 130-159 mg/dL, Borderline high 160-189 mg/dL, High >189 mg/dL, Very high Secondary prevention optimal LDL Cholesterol levels are recommended to be < 70 mg/dL Hemoglobin A1C Date Value Ref Range Status 01/30/2023 6.4 (H) 4.3 - 5.6 % Final Comment: [place] [employer] guidelines indicate that patients with HgbA1c in the range 5.7-6.4% are at increased risk for development of diabetes, and intervention by lifestyle modification may be beneficial. HgbA1c greater or equal to 6.5% is considered diagnostic of diabetes. ALT Date Value Ref Range Status 04/16/2024 18 7 - 38 U/L Final Glucose Date Value Ref Range Status 05/15/2024 212 (H) 74 - 99 mg/dL Final Comment: The [place] Diabetes [employer] (ADA) provides guidance for cutoff values for fasting glucose andrandom glucose. The ADA defines fasting as no caloric intake for at least 8 hours. Fasting plasma glucose results between 100 to 125 mg/dL indicate increased risk for diabetes (prediabetes). Fasting plasma glucose results greater than or equal to 126 mg/dL meet the criteria for diagnosis of diabetes. In the absence of unequivocal hyperglycemia, results should be confirmed by repeat testing. In a patient with classic symptoms of hyperglycemia or hyperglycemic crisis, random plasma glucose results greater than or equal to 200 mg/dL meet the criteria for diagnosis of diabetes. Reference: Standards of Medical Care in Diabetes 2016, [place] [employer]. Diabetes Care. 2016.39(Suppl 1). TSH Date Value Ref Range Status 01/30/2023 0.962 0.270 - 4.200 mIU/L Final UltraSens C-Reactive Protein Date Value Ref Range Status 01/29/2023 3.2 (H) <3.1 mg/L Final Comment: hsCRP < 1.0 mg/L, relative risk is low hsCRP 1.0-3.0 mg/L, relative risk is average hsCRP > 3.0 mg/L, relative risk is high Reference: Lily TA, Delores GA, Angel RW, et al. Markers of Inflammation and Cardiovascular Disease. Application to Clinical and Public Health Practice. A Statement for Healthcare Professionals from the Centers for Disease Control and Prevention and the [place] [employer]. Circulation 2003;107:499-511. Albumin/Creat Ratio Date Value Ref Range Status 11/27/2022 538 (H) <30 mg/g Final Comment: Adult Male and Female Nephrotic Criteria: <30 mg/g is considered normal to mildly increased 30-300 mg/g is considered moderately increased >300 mg/g is considered severely increased KDIGO. (2013). KDIGO 2012 Clinical Practice Guideline for the Evaluation and Management of Chronic Kidney Disease. Official Journal of the International Society of Nephrology, 3(1), 1-150. Creatinine Date Value Ref Range Status 05/15/2024 1.86 (H) 0.58 - 0.96 mg/dL Final Potassium Date Value Ref Range Status 05/15/2024 4.9 3.7 - 5.1 mmol/L Final NT Pro BNP Date Value Ref Range Status 04/16/2024 485 (H) <450 pg/mL Final Patient Entered Questionnaire Scores IMPRESSION: In summary, Ms. Angulo is a 84 year old female who was referred to the [facility] because of Hypertension PLAN: The results of this assessment were discussed with the patient. We have mutually agreed upon the following plans and goals: CAD-cath 05/14/24 which showed 60 to 70% ostial RCA s/p drug coated Paclitaxel balloon, cutting balloon as well as IVL with shock wave therapy and 60% ostial D2 with moderate disease in mid LAD and OM1, diastolic HF. Now following with Dr Clements Isosorbide mononitrate started yesterday (?shortness of breath anginal equivalent) 02/09/24 TAVR : reminded to schedule with Dr Somers Follow up order placed to schedule est visit. Atrial fib/flutter, SSS s/pPPM: continue to follow with Dr Avila (last seen 05/2024) Hypertension, stage 4 CKD, proteinuria: Blood pressure elevation per Laffin felt due to primary hypertension, aging, dietary indiscretion,secondary CKD blood pressure well controlled today Last 14 BP Last 14 Encounter BP Readings: Date: BP: 11/10/2024 124/46 today in clinic, repeat 130/58 for recheck diastolic 11/09/2024 130/68 06/24/2024 124/66 05/28/2024 122/60 05/11/2024 120/62 04/21/2024 111/56 04/16/2024 129/59 02/18/2024 110/60 02/18/2024 106/62 02/09/2024 164/68 02/05/2024 130/60 02/05/2024 142/81 01/21/2024 157/65 01/20/2024 135/58 Home BP monitoring, call if BP >130/80 Continue current regimen: Amlodipine 10 mg olmesartan 40 mg nightly Coreg 25 mg BID Doxazosin 4 mg nightly CKD: Creatinine Date Value Ref Range Status 05/15/2024 1.86 (H) 0.58 - 0.96 mg/dL Final 05/14/2024 1.98 (H) 0.58 - 0.96 mg/dL Final 04/16/2024 1.86 (H) 0.58 - 0.96 mg/dL Final 03/05/2024 1.99 (H) 0.58 - 0.96 mg/dL Final 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 Nutrition /Weight: PLAN: -Low sodium diet less than 2300 mg day -Recommend BMI less than 27 -Follow a Mediterranean diet: Choose plenty of whole or plant based foods-fruit, vegetables, whole grains, and nuts. Choose monounsaturated fat from olive oil, olives, nuts, and avocado. [place] 3 fats are another heart healthy fat found in tuna, salmon, flaxseed, and walnuts. Limit foods high in sodium, saturated fat, and cholesterol. HEALTH MAINTENANCE: Please follow-up with your Primary Card Physician and review your health maintenance to ensure it is up to date. MEDICATION CHANGES: none Physicians and Nurse Practitioners work closely together in Preventive Cardiology. If at any time you would like to see a Physician for a visit, please let us know. [facility]: Vane 11/27/22 AMBULATORY PATIENT EDUCATION Topic: Education on risk factors and medications. Instruction Provided To: Patient Cognitive Ability: Alert/Oriented Barriers: None Motivation to Learn: Interested Methods of Instruction: Verbal instruction and/or handouts. Patient Leans Best By: Multiple Methods Patient Verbalized: Understanding I personally spent 40 minutes in total time involved in the management and care of this patient. Domenic Serrano APRN.MOIZ documented in this encounter[facility] [place] Instructions* Patient Instructions* Razia Clements MD - 11/09/2024 11:36 AM EST Start taking atorvastatin 20 mg (one tablet) once a day for approximately 1 week. Once tolerating well, increase dose of atorvastatin to the 40 mg (take 2 of the 20 mg atorvastatin tablets = 40 mg ) once a day thereafter. If you experience muscle aches on the 40 mg dosing, decrease dose of atorvastatin to 20 mg once a day. Proceed to the lab 4-6 weeks after starting the atorvastatin to check yourlipids and liver function. documented in this encounterSelect [facility], [place]02-11-2025 History of Present illness Narrative* Razia Clements MD - 11/09/2024 11:00 AM EST Images from the original note were not included. [facility] [place] SECTION OF REGIONAL CARDIOLOGY OUTPATIENT VISIT DATE 11/09/2024 OUTPATIENT VISIT TYPE ESTABLISHED PRIMARY CARE PHYSICIAN: Jorge Benavides [address] [place] [id number] Patient is being seen at the request of Self for follow up HISTORY OF PRESENT ILLNESS: Ms. Angulo is a 84 year old female, hx of atrial fibrillation/flutter, aortic stenosis s/p TAVR, CAD with cath 05/14/24 which showed 60 to 70% ostial RCA s/p drug coated Paclitaxel balloon, cutting balloon as well as IVL with shock wave therapy and 60% ostial D2 with moderate disease in mid LAD andOM1, CKD, diabetes mellitus, diastolic HF, gout, pericardial effusion, SSS s/p PPM, CLIFFORD, thyroid disease, presents for f/u. Previously seen by Dr. Suazo 06/24/[address] Shetty 05/11/2024. She denies chest pain, palpitations, orthopnea, PND, leg swelling, lightheadedness, syncope. She reports SOB with daily activities stable from prior to her cath and TAVR last year. She reports significant L knee pain which is limiting her ability to exercise. She is working closely with chiropractor. TTE 04/16/24: EF 59%, 1.2/0.9, mod dil LA, 1+ MR, 2+ TR, Balderas S3 Ultra prosthetic valve size #23,pk/mean AV grad , peak AV abdullahi 245 cm/s, trace- 1+[place], asc Ao 3.3 cm, RVSP 40 mmHg PAST MEDICAL HISTORY Diagnosis Date Anemia Aortic stenosis Atrial fibrillation (HCC) Atrial flutter (HCC) Bradycardia Cancer (HCC) thyroid Chronic kidney disease Diabetes (HCC) Gout Heart attack (HCC) HLD (hyperlipidemia) Hypertension Pericardial effusion Recurrent UTI Sleep apnea CPAP SSS (sick sinus syndrome) (HCC) Thyroid disease PAST SURGICAL HISTORY Procedure Laterality Date APPENDECTOMY HX CATARACT SURGERY, COMPLEX HYSTERECTOMY HX PPM DUAL 2018 THYROIDECTOMY TOTAL/COMPLETE Parathyroid removal TOTAL KNEE REPLACEMENT Left x2- one revision Social History Tobacco Use Smoking status: Never Smokeless tobacco: Never Vaping Use Vaping status: Never Used Substance Use Topics Alcohol use: No Drug use: Never FAMILY HISTORY Problem Relation Age of Onset Uterine Cancer Mother Hypertension Father Lung Cancer Father other (Vascular) Son Hypertension Son ALLERGIES Allergen Reactions Darvon [Propoxyphen* Shortness of Breath, Other: See Comments No strength, bad dreams Iodine Anaphylaxis 12/24/23- pt. premedicated with 13 hrs, had CT scan with IV contrast. Patient denied any s/s of SOB, difficulty breathing, wheezing, itching or rash. Lotensin [Benazepri* Vomiting, Other: See Comments Coughing Rivaroxaban Other: See Comments Developed pericardial effusion Shellfish Anaphylaxis Shellfish Containin* Anaphylaxis, Shortness of Breath Spironolactone Other: See Comments Weak, made calcium level high, heart rate 20BPM Adhesive Rash Celecoxib Other: See Comments Due to kidneys Demeral [Meperidine] Vomiting Hydrochlorothiazide Other: See Comments Metformin Other: See Comments Metoprolol Shortness of Breath Penicillins Hives Simvastatin Myalgia, Other: See Comments Sitagliptin Other: See Comments CURRENT MEDICATIONS: amLODIPine (NORVASC) 10 mg tablet Take 1 tablet by mouth once daily. apixaban (ELIQUIS) 2.5 mg tab(s) Take 1 tablet by mouth two times a day. aspirin, enteric coated (ASPIRIN, ENTERIC COATED) 81 mg EC tablet Take 1 tablet by mouth once dailyfor 7 doses. Patient should start on May 15, 2024. clopidogrel (PLAVIX) 75 mg tablet Take 1 tablet by mouth once daily. Patient should start on 2023. diphenhydrAMINE (BENADRYL) 25 mg capsule Take 1 capsule by mouth 1 hour prior to procedure with last Prednisone (Patient not taking: Reported on 05/28/2024) furosemide (LASIX) 20 mg tablet Take 0.5 tablets by mouth once daily. glimepiride (AMARYL) 1 mg tablet Take 1 tablet by mouth daily with breakfast. colchicine 0.6 mg tablet Take 1 tablet by mouth every other day. olmesartan (BENICAR) 40 mg tablet Take 1 tablet by mouth once daily. finerenone (KERENDIA) 10 mg tablet q 24 HR. omega 8-eue-pig-fish oil 360 mg-108 mg- 180 mg-1,200 mg cap q 24 HR. doxazosin (CARDURA) 4 mg tablet Take 1 tablet by mouth daily at bedtime. carvedilol (COREG) 25 mg tablet Take 1 tablet by mouth twice daily with meals. vibegron (GEMTESA) 75 mg tablet Take 1 tablet by mouth once daily. Cranberry 500 mg cap Take 1 capsule by mouth once daily. Ascorbic Acid 500 mg cpER Take by mouth once daily. cinnamon bark (CINNAMON ORAL) Take by mouth. Take 2,00mg daily. lovastatin (MEVACOR) 20 mg tablet Take 20 mg by mouth daily at bedtime. cholecalciferol (VITAMIN D3) 5,000 unit tab Take 5,000 Units by mouth once daily. pantoprazole DR (PROTONIX) 40 mg tablet TAKE 1 TABLET BY MOUTH ONCE DAILY AT 6 AM levothyroxine (SYNTHROID) 125 mcg tablet Take 125 mcg by mouth once daily. latanoprost (XALATAN) 0.005 % ophthalmic solution Use 1 Drop in both eyes daily at bedtime. PHYSICAL EXAMINATION: BP 130/68 Pulse 60 Ht 152.4 cm (5') Wt 87.2 kg (192 lb 3.9 oz) SpO2 99% BMI 37.54 kg/m General: Appears comfortable in no apparent cardiopulmonary distress Neck: No JVD, no bruits CVS: S1, S2, No m/r/g Chest: CTAB Abd: Soft, nontender, no masses, BS present Ext: No pedal edema, pedal pulses 2+ bilaterally Neuro: No focal neurological deficits CARDIOVASCULAR MEDICINE TESTING: Last ECHO Result Conclusion ECHO Collected: 04/16/2024 9:20 AM (Final result) Impression: CONCLUSIONS: - Exam indication: S/P TAVR - The left ventricle is normal in size. There is mild left ventricular hypertrophy. Left ventricular systolic function is normal. EF = 59 5% (2D biplane) Grade I left ventricular diastolic dysfunction. - The right ventricle is normal in size. Right ventricular systolic function is normal. - The left atrial cavity is moderately dilated. - There is moderate (2+) tricuspid valve regurgitation caused by indeterminate. - S/P transcatheter aortic valve replacement. Balderas S3 Ultra prosthetic aortic valve (size #23). There is no aortic valve regurgitation. The peak gradient is 24 mmHg, the mean gradient is 15 mmHg and the dimensionless valve index is 0.29. Prior peak/mean AV gradients of 17/8 mmHg. - Estimated right ventricular systolic pressure is 40 mmHg plus right atrial pressure. Estimated right atrial pressure is not included as the IVC was not seen. - Exam was compared with the prior CC echocardiographic exam performed on 02/09/2024. Increase in gradients across the TAVR valve. * * * Final * * * Last EKG Result Conclusion ECG COMPLETE Collected: 05/14/2024 8:32 PM (Final result) Impression: AV DUAL-PACED COMPLEXES ABNORMAL ECG Confirmed by DEAN GERBER, SACHA ([id number]) on 06/08/2024 9:36:[address] Result Conclusion CTA CHEST/ABD/PEL (GATED) W IVCON Exam End: 12/24/2023 3:32 PM (Final result) Impression: IMPRESSION: Normal Thoracic and Abdominal Aortic Anatomy. Annulus Anatomy as described above. Customer Engagement Specialist: [facility] CENTERShayne Transcribe Date/Time: Dec 24 2023 3:56P Dictated by : ARUN VILCHIS MD This examination was interpreted and the report reviewed and electronically signed by: ARUN VILCHIS MD on Dec 24 2023 4:13PM EST ASSESSMENT/PLAN: 1. Coronary artery disease due to lipid rich plaque - ICD9: 414.00, 414.3, ICD10: I25.10, I25.83 (primary diagnosis) S/p PTCA and shock wave therapy of proximal RCA There was KUNAL 3 flow and 20% residual stenosis. She reports SOB with daily activities that is stable. Possible etiologies include angina equivalent2/2 CAD, deconditioning. - On amlodipine, coreg - Will provide trial of imdur 30 mg po daily. She was advised that she can increase dose to 60 mg once daily. Max dose 120mg po daily. Side effect profile of medication was d/w her. She was advised to monitor her blood pressures regularly. - On plavix, eliquis - Discussed switching to atorvastatin - start with 20mg daily x1 week, followed by 40mg thereafter. - Repeat lipids and LFTs 4-6 weeks. Achieve LDL <70 - F/u in 6 weeks to reassess symptoms. Consider nuclear stress test if SOB is persistent. - If unable to tolerate atorvastatin due to myalgias, she was advised to cut back the dose or discontinue it. She will keep us informed. We also discussed option of PCSK9i such as Repatha if she is unable to tolerate atorvastatin. - Counseled on low cholesterol diet- avoid red meats and processed foods, focus on lean portions ofwhite meat- chicken and turkey breast, fish, healthy nuts, fruits, vegetables. - She was counseled on gradually achieving at least 30 minutes of moderate intensity aerobic exercise 5 times per week-swimming/ pool therapy may be considerations given significant MSK limitations. Discusses cardiac rehab/ PT. She will keep us informed if she wishes to pursue any of these at a later point. 2. S/P TAVR (transcatheter aortic valve replacement) - ICD9: V43.3, ICD10: Z95.2 S/p Balderas S3 Ultra prosthetic valve size #23, pk/mean AV grad 24/15, peak AV abdullahi 245 cm/s - She will call to schedule a f/u with the TAVR team. 3. Cardiac pacemaker - ICD9: V45.01, ICD10: Z95.0 Per device interrogation 07/2024: Afib w controlled V response. AT burden 53%, AT/AF burden 1.2% - Follows with Dr Suazo. Advised to make an appointment to see him this yr. 4. Afib - On eliquis for stroke prophylaxis dosed for age >80 and Cr >1.5 - On coreg 25mg po bid Razia Clements MD, FACC documented in this encounterSelect [facility] [place] NoteHNO ID: [id number] Author: RAZIA CLEMENTS MD Service: ? Author Type: Physician Type: Progress Notes Filed: 11/09/2024 12:27 Note Text: [facility] [place] SECTION OF REGIONAL CARDIOLOGY OUTPATIENT VISIT DATE 11/09/2024 OUTPATIENT VISIT TYPE ESTABLISHED PRIMARY CARE PHYSICIAN: Jorge Benavides [address] [place] [place] [address] Patient is being seen at the request of Self for follow up HISTORY OF PRESENT ILLNESS: Ms. Angulo is a 84 year old female, hx of atrial fibrillation/flutter, aortic stenosis s/p TAVR, CAD with cath 05/14/24 which showed 60 to 70% ostial RCA s/p drug coated Paclitaxel balloon, cutting balloon as well as IVL with shock wave therapy and 60% ostial D2 with moderate disease in mid LAD and OM1, CKD, diabetes mellitus, diastolic HF, gout, pericardial effusion, SSS s/p PPM, CLIFFORD, thyroid disease, presents for f/u. Previously seen by Dr. Suazo 06/24/[address] Shetty 05/11/2024. She denies chest pain, palpitations, orthopnea, PND, leg swelling, lightheadedness, syncope. She reports SOB with daily activities stable from prior to her cath and TAVR last year. She reports significant L knee pain which is limiting her ability to exercise. She is working closely with chiropractor. TTE 04/16/24: EF 59%, 1.2/0.9, mod dil LA, 1+ MR, 2+ TR, Balderas S3 Ultra prosthetic valve size #23, pk/mean AV grad , peak AV abdullaih 245 cm/s, trace-1+[place], asc Ao 3.3 cm, RVSP 40 mmHg PAST MEDICAL HISTORY Diagnosis Date Anemia Aortic stenosis Atrial fibrillation (HCC) Atrial flutter (HCC) Bradycardia Cancer (HCC) thyroid Chronic kidney disease Diabetes (HCC) Gout Heart attack (HCC) HLD (hyperlipidemia) Hypertension Pericardial effusion Recurrent UTI Sleep apnea CPAP SSS (sick sinus syndrome) (HCC) Thyroid disease PAST SURGICAL HISTORY Procedure Laterality Date APPENDECTOMY HX CATARACT SURGERY, COMPLEX HYSTERECTOMY HX PPM DUAL 2018 THYROIDECTOMY TOTAL/COMPLETE Parathyroid removal TOTAL KNEE REPLACEMENT Left x2- one revision Social History Tobacco Use Smoking status: Never Smokeless tobacco: Never Vaping Use Vaping status: Never Used Substance Use Topics Alcohol use: No Drug use: Never FAMILY HISTORY Problem Relation Age of Onset Uterine Cancer Mother Hypertension Father Lung Cancer Father other (Vascular) Son Hypertension Son ALLERGIES Allergen Reactions Darvon [Propoxyphen* Shortness of Breath, Other: See Comments No strength, bad dreams Iodine Anaphylaxis 12/24/23- pt. premedicated with 13 hrs, had CT scan with IV contrast. Patient denied any s/s of SOB, difficulty breathing, wheezing, itching or rash. Lotensin [Benazepri* Vomiting, Other: See Comments Coughing Rivaroxaban Other: See Comments Developed pericardial effusion Shellfish Anaphylaxis Shellfish Containin* Anaphylaxis, Shortness of Breath Spironolactone Other: See Comments Weak, made calcium level high, heart rate 20BPM Adhesive Rash Celecoxib Other: See Comments Due to kidneys Demeral [Meperidine] Vomiting Hydrochlorothiazide Other: See Comments Metformin Other: See Comments Metoprolol Shortness of Breath Penicillins Hives Simvastatin Myalgia, Other: See Comments Sitagliptin Other: See Comments CURRENT MEDICATIONS: amLODIPine (NORVASC) 10 mg tablet Take 1 tablet by mouth once daily. apixaban (ELIQUIS) 2.5 mg tab(s) Take 1 tablet by mouth two times a day. aspirin, enteric coated (ASPIRIN, ENTERIC COATED) 81 mg EC tablet Take 1 tablet by mouth once daily for 7 doses. Patient should start on May 15, 2024. clopidogrel (PLAVIX) 75 mg tablet Take 1 tablet by mouth once daily. Patient should start on May 15, 2024. diphenhydrAMINE (BENADRYL) 25 mg capsule Take 1 capsule by mouth 1 hour prior to procedure with last Prednisone (Patient not taking: Reported on 05/28/2024) furosemide (LASIX) 20 mg tablet Take 0.5 tablets by mouth once daily. glimepiride (AMARYL) 1 mg tablet Take 1 tablet by mouth daily with breakfast. colchicine 0.6 mg tablet Take 1 tablet by mouth every other day. olmesartan (BENICAR) 40 mg tablet Take 1 tablet by mouth once daily. finerenone (KERENDIA) 10 mg tablet q 24 HR. omega 8-fsi-rmm-fish oil 360 mg-108 mg- 180 mg-1,200 mg cap q 24 HR. doxazosin (CARDURA) 4 mg tablet Take 1 tablet by mouth daily at bedtime. carvedilol (COREG) 25 mg tablet Take 1 tablet by mouth twice daily with meals. vibegron (GEMTESA) 75 mg tablet Take 1 tablet by mouth once daily. Cranberry 500 mg cap Take 1 capsule by mouth once daily. Ascorbic Acid 500 mg cpER Take by mouth once daily. cinnamon bark (CINNAMON ORAL) Take by mouth. Take 2,00mg daily. lovastatin (MEVACOR) 20 mg tablet Take 20 mg by mouth daily at bedtime. cholecalciferol (VITAMIN D3) 5,000 unit tab Take 5,000 Units by mouth once daily. pantoprazole DR (PROTONIX) 40 mg tablet TAKE 1 TABLET (more content not included)...[facility]01-30-2025 Telephone encounter Note* Telephone Encounter - Minh Lema - 10/28/2024 9:11 AM EST Pt called scheduling office to inquire why her 11/10 appt has been canceled with Dr. Somers. 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 Somers. Scheduling office verbalized understanding and will let the patient know. [facility] [place]01-30-[facility]25 Miscellaneous Notes* Telephone Encounter - Minh Lema - 10/28/2024 9:11 AM EST Pt called scheduling office to inquire why her 11/10 appt has been canceled with Dr. Somers. 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 Somers. Scheduling office verbalized understanding and will let the patient know. documented in this encounterSelect [facility], [place]-2025 Evaluation note* Diagnosis Onset Date Resolution Status Admit Date Acquired hypothyroidism acute J anuary 2024 10:47am Osteoarthritis acute October 122024 10:47am CLIFFORD (obstructive sleep apnea) chroni c October 12, 2024 10:47am Essential hypertension inactive [facility] 2024 10:47am Controlled type 2 diabetes mellitus deleted October 12 10:47am Change in bowel habits noneactive [facility] 2024 10:47am CKD (chronic kidney disease) stage 3, GFR 30-59 ml/min noneactive [facility] 2024 10:47am CAD (coronary artery disease) noneac tive October 12, 2024 10:47am Recurrent UTI noneactive September 10:47am Osteopenia noneactive October 12, 2024 10:47am Obesity (BMI 30-39.9) noneactive [facility] 2024 10:47am Hyperkalemia resolved October 7:53pm Aortic stenosis inactive November 16, 2024 7:53pm Diabetes mellitus, type 2 inactive November 16, 2024 7:53pm Essential hypertension inactive [facility]2024 7:53pm HLD (hyperlipidemia) inactive 2024 7:53pm PAF (paroxysmal atrial fibrillation) inactive November 16 025 7:53pm Stage 4 chronic kidney disease inactive November 16 025 7:53pm Change in bowel habits noneactive [facility] 2024 10:20am CKD (chronic kidney disease) stage 3, GFR 30-59 ml/min noneactive December 09, 2024 10:20am Recurrent UTI noneactive December 09, 2024 10:20am Subcutaneous nodule noneactive December 09, 2024 10:20am Hospital discharge follow-up noneact thomas December 09, 2024 10:20am Hyperkalemia noneactive December 09, 2024 10:20am Change in consistency of stool acute December 17, 2024 10:09am [facility] Work Phone: 1(654) 689-356301-14-2025 Evaluation note* Diagnosis Onset Date Resolution Status Admit Date Acquired hypothyroidism acute J anuary 2024 10:47am Osteoarthritis acute October 122024 10:47am CLIFFORD (obstructive sleep apnea) chroni c October 12, 2024 10:47am Essential hypertension inactive [facility] 2024 10:47am Controlled type 2 diabetes mellitus deleted October 12 10:47am Change in bowel habits noneactive [facility] 2024 10:47am CKD (chronic kidney disease) stage 3, GFR 30-59 ml/min noneactive [facility] 2024 10:47am CAD (coronary artery disease) noneac tive October 12, 2024 10:47am Recurrent UTI noneactive September 10:47am Osteopenia noneactive October 12, 2024 10:47am Obesity (BMI 30-39.9) noneactive [facility] 2024 10:47am Hyperkalemia resolved October 7:53pm Aortic stenosis inactive November 16, 2024 7:53pm Diabetes mellitus, type 2 inactive November 16, 2024 7:53pm Essential hypertension inactive [facility]2024 7:53pm HLD (hyperlipidemia) inactive 2024 7:53pm PAF (paroxysmal atrial fibrillation) inactive November 16, 025 7:53pm Stage 4 chronic kidney disease inactive November 16, 025 7:53pm Change in bowel habits noneactive [facility] 2024 10:20am CKD (chronic kidney disease) stage 3, GFR 30-59 ml/min noneactive December 09, 2024 10:20am Recurrent UTI noneactive December 09, 2024 10:20am Subcutaneous nodule noneactive December 09, 2024 10:20am Hospital discharge follow-up noneact thomas December 09, 2024 10:20am Hyperkalemia noneactive December 09, 2024 10:20am Change in consistency of stool acute December 17, 2024 10:09am Subcutaneous nodule acute 2025 1:24pm [facility] Work Phone: 1(454) 250-498901-14-2025 Evaluation note* Diagnosis Onset Date Resolution Status Admit Date Acquired hypothyroidism acute J anuary 2024 10:47am Osteoarthritis acute October 122024 10:47am CLIFFORD (obstructive sleep apnea) chroni c October 12, 2024 10:47am Essential hypertension inactive [facility] 2024 10:47am Controlled type 2 diabetes mellitus deleted October 12 10:47am Change in bowel habits noneactive [facility] 2024 10:47am CKD (chronic kidney disease) stage 3, GFR 30-59 ml/min noneactive [facility] 10:47am CAD (coronary artery disease) noneac tive October 12, 2024 10:47am Recurrent UTI noneactive September 10:47am Osteopenia noneactive October 12, 2024 10:47am Obesity (BMI 30-39.9) noneactive [facility] 2024 10:47am Hyperkalemia resolved October 7:53pm Aortic stenosis inactive November 16, 2024 7:53pm Diabetes mellitus, type 2 inactive November 16, 2024 7:53pm Essential hypertension inactive [facility]2024 7:53pm HLD (hyperlipidemia) inactive 2024 7:53pm PAF (paroxysmal atrial fibrillation) inactive November 16, 025 7:53pm Stage 4 chronic kidney disease inactive November 16, 025 7:53pm Change in bowel habits noneactive [facility] 2024 10:20am CKD (chronic kidney disease) stage 3, GFR 30-59 ml/min noneactive December 09, 2024 10:20am Recurrent UTI noneactive December 09, 2024 10:20am Subcutaneous nodule noneactive December 09, 2024 10:20am Hospital discharge follow-up noneact thomas December 09, 2024 10:20am Hyperkalemia noneactive December 09, 2024 10:20am Change in consistency of stool acute December 17, 2024 10:09am Subcutaneous nodule resolved 2025 1:24pm Subcutaneous nodule resolved February 012024 1:47pm [facility] Work Phone: 1(409) 216-279311-25-2024 Evaluation note* Diagnosis Onset Date Resolution Status Admit Date Acquired hypothyroidism acute N ovember 2023 11:17am Osteoarthritis acute July 312023 11:17am CLIFFORD (obstructive sleep apnea) chroni c August 23, 2024 11:17am Essential hypertension inactive No [email or web address] 11:17am Controlled type 2 diabetes mellitus deleted August 23, 2 11:17am Change in bowel habits noneactive No [email or web address] 11:17am Shortness of breath noneactive [facility] 2023 11:17am CKD (chronic kidney disease) stage 3, GFR 30-59 ml/min noneactive [facility] 2023 11:17am Recurrent UTI noneactive August 232023 11:17am Osteopenia noneactive August 23, 2024 11:17am Acquired hypothyroidism acute J anuary 2024 10:47am Osteoarthritis acute October 122024 10:47am CLIFFORD (obstructive sleep apnea) chroni c October 12, 2024 10:47am Essential hypertension inactive 2024 10:47am Controlled type 2 diabetes mellitus deleted October 12 10:47am Change in bowel habits noneactive [facility] 2024 10:47am CKD (chronic kidney disease) stage 3, GFR 30-59 ml/min noneactive [facility] 2024 10:47am CAD (coronary artery disease) noneac tive October 12, 2024 10:47am Recurrent UTI noneactive September 10:47am Osteopenia noneactive October 12, 2024 10:47am Obesity (BMI 30-39.9) noneactive Sep 10:47am Hyperkalemia resolved October 7:53pm Aortic stenosis inactive November 16, 2024 7:53pm Diabetes mellitus, type 2 inactive November 16, 2024 7:53pm Essential hypertension inactive 2024 7:53pm HLD (hyperlipidemia) inactive 2024 7:53pm PAF (paroxysmal atrial fibrillation) inactive November 16 025 7:53pm Stage 4 chronic kidney disease inactive November 16 025 7:53pm [facility] Work Phone: 1(154) 274-137411-25-2024 Evaluation note* Diagnosis Onset Date Resolution Status Admit Date Acquired hypothyroidism acute N ovember 2023 11:17am Osteoarthritis acute July 312023 11:17am CLIFFORD (obstructive sleep apnea) chroni c August 23, 2024 11:17am Essential hypertension inactive No [email or web address] 11:17am Controlled type 2 diabetes mellitus deleted August 23, 11:17am Change in bowel habits noneactive No [email or web address] 11:17am Shortness of breath noneactive [facility] 2023 11:17am CKD (chronic kidney disease) stage 3, GFR 30-59 ml/min noneactive [facility] 2023 11:17am Recurrent UTI noneactive August 232023 11:17am Osteopenia noneactive August 23, 2024 11:17am Acquired hypothyroidism acute J anuary 2024 10:47am Osteoarthritis acute October 122024 10:47am CLIFFORD (obstructive sleep apnea) chroni c October 12, 2024 10:47am Essential hypertension inactive 2024 10:47am Controlled type 2 diabetes mellitus deleted October 12 10:47am Change in bowel habits noneactive [facility] 2024 10:47am CKD (chronic kidney disease) stage 3, GFR 30-59 ml/min noneactive Janr y 2024 10:47am CAD (coronary artery disease) noneac tive October 12, 2024 10:47am Recurrent UTI noneactive September 10:47am Osteopenia noneactive October 12, 2024 10:47am Obesity (BMI 30-39.9) noneactive Sep 10:47am Hyperkalemia resolved October 7:53pm Aortic stenosis inactive November 16, 2024 7:53pm Diabetes mellitus, type 2 inactive November 16, 2024 7:53pm Essential hypertension inactive 2024 7:53pm HLD (hyperlipidemia) inactive 2024 7:53pm PAF (paroxysmal atrial fibrillation) inactive November 16 025 7:53pm Stage 4 chronic kidney disease inactive November 16 7:53pm Change in bowel habits noneactive [facility] 2024 10:20am CKD (chronic kidney disease) stage 3, GFR 30-59 ml/min noneactive December 09, 2024 10:20am Recurrent UTI noneactive December 09, 2024 10:20am Subcutaneous nodule noneactive December 09, 2024 10:20am Hospital discharge follow-up noneact thomas December 09, 2024 10:20am Hyperkalemia noneactive December 09, 2024 10:20am [facility] Work Phone: 1(202) 801-435010-16-2024 Telephone encounter Note* Telephone Encounter - Elda Brooks HUC - 07/14/2024 4:24 PM EDT [phone] Spoke with patient. Will set up a telephone visit with Dr. Somers on 07/22 at 2:30 to discussthe risk of PCI. Dr. Somers had lengthy conversation with pt on 06/01 regarding the risk. [facility] [place]10-16-2024 Miscellaneous Notes* Telephone Encounter - Elda Brooks HUC - 07/14/2024 4:24 PM EDT [phone] Spoke with patient. Will set up a telephone visit with Dr. Somers on 07/22 at 2:30 to discussthe risk of PCI. Dr. Somers had lengthy conversation with pt on 06/01 regarding the risk. documented in this encounter[facility] [place] Telephone encounter Note * Telephone Encounter - Elda Brooks HUC - 07/12/2024 10:14 AM EDT [phone] Spoke with patient and told pt I would put on Dr. Somers desk for review [facility] [place]10-14-2024 Miscellaneous Notes* Telephone Encounter - Elda Brooks HUC - 07/12/2024 10:14 AM EDT [phone] Spoke with patient and told pt I would put on Dr. Somers desk for review documented in this encounter[facility] [place] Telephone encounter Note * Telephone Encounter - Uzma Gil - 06/30/2024 4:16 PM EDT June 30, 2024 Patient Name: Lynette Angulo Contact Information: [phone] (home) [phone] (cell) Reason For Call:Other Issue: Physician:Dr Somers Pt calls today to follow up on POC as discussed between Dr Suazo and Dr Somers. [facility] [place]10-02-2024 Miscellaneous Notes* Telephone Encounter - Uzma Gil - 06/30/2024 4:16 PM EDT June 30, [id number] Patient Name: Lynette Angulo Contact Information: [phone] (home) [phone] (cell) Reason For Call:Other Issue: Physician:Dr Somers Pt calls today to follow up on POC as discussed between Dr Suazo and Dr Somers. documented in this encounter[facility] [place] History of Present illness Narrative* Xiao Suazo MD - 06/24/2024 10:00 AM EDT Images from the original note were not included. EP STAFF NOTE: Please note: This note has been produced using speech recognition software and may contain errors related to that system including grammar, punctuation, spelling, gender and words and phrases that may be inappropriate I have reviewed the above information and examined the patient and confirm the above with the following additions/modifications. ECG: PE: Vitals: BP 124/66 Pulse (!) 58 Wt 86.6 kg (190 lb 14.7 oz) SpO2 100% BMI 37.29 kg/m [facility] In no acute distress. Lungs: Unlabored Heart: RRR, KULDIP Extremities: No peripheral edema bilaterally. DEVICE CHECK: DUAL LEAD PACEMAKERS REMOTE EVALUATION 01/14/2024: PRESENTING EGM: AP/VS BATTERY STATUS: Estimated time remaining to TORI is 7.5 yrs COUNTERS SINCE: 12/26/23 ATRIAL ARRHYTHMIAS: There was 1 AF event began on 12/25/23 that lasted 2.8 days. AF burden 11.3%. PAF per graph. On Eliquis per Epic. VENTRICULAR ARRHYTHMIAS: There have been no ventricular detections. LEAD MEASUREMENTS: Sensing and auto capture trends are appropriate. Review of the lead impedance trends are normal. OTHER DIAGNOSTICS: RA pacing 88.8%. RV pacing 8.4%. FOLLOW UP: Continue 3 month remote transmissions and yearly in-clinic interrogations. Talisha White RN NOTE TO PROVIDERS: CARD Flowsheets contain detailed device programming and testing data. Paceart/Interrogation PDF can be found under CARDIAC DATA AND REPORT, Scanned Documents section. : * Normal Device Function * Alerts or events: None * Battery: OK, 7.83 yrs * Sensing, impedance and thresholds reviewed * Programmed parameters reviewed * Presenting rhythm AP/VS with PVC * Heart Rate Histograms reviewed * No significant changes noted * AP 63.8%, ENDOCRINOLOGIST 33.2% (MVP On) Title: Tachycardia: AF * No available EGMs * AT/AF [place]: 36.2% * Total number of events: 0 Today: DUAL CHAMBER PACEMAKER EVALUATION PRESENTS FOR: Office visit with Dr. Suazo PRESENTING EGM: AP/VS UNDERLYING RHYTHM: No atrial intrinsic @ DDD 30, AV conduction intact. BATTERY STATUS: Estimated time remaining to TORI is 7.8 years. COUNTERS SINCE: 02/09/2024 ATRIAL ARRHYTHMIAS: No sustained AF since ~March 2024. Anticoagulants listed: Eliquis. VENTRICULAR ARRHYTHMIAS: There have been no ventricular detections since the last evaluation. LEAD MEASUREMENTS: RV sensing is WNL. RA/RV Captures are appropriate. The pacing outputs maintain safety margin. Review of the lead impedance trends are normal. IMPLANT SITE/ SYMPTOMS: The incision and pocket are pain-free (0/10), well healed and without signsof erosion or infection. No arm swelling, syncope, pre- syncope or device related pocket stimulation. 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 This does not seem to be worse or correlate with AF episodes. OTHER DIAGNOSTICS: RA pacing 71.7% V pacing 25.5% PROGRAMMING CHANGES MADE TODAY: None. FOLLOW UP: q3 month remotes with yearly clinic visits. PROBLEM LIST: Sroubek pt chronic UTIs hypothyroidism diabetes hyperlipidemia hypertension CKD aortic stenosis sick sinus syndrome s/p dual chamber pacemaker 2018 PAF CHADS VASc 7 - on Eliquis LBBB NM Spect/CT Cardiac Amyloid 12/26/2023: CONCLUSIONS: 1. Not Consistent with TTR amyloidosis 2. No bone abnormalities. Cardiac Cath 12/25/2023: Impression: -R dominant system with a 60-70% ostial RCA lesion and a 60% ostial lesion in the second diagonal. -Moderate disease in the mid LAD and OM1. Recommended Treatment: Medical Therapy. Plan: -Will discuss case in multidisciplinary TAVR meeting; can consider PCI to the ostial RCA +/- D2 or bypass if pursuing surgical option -Medical therapy for CAD Echo 11/19/2023: CONCLUSIONS: - Exam indication: Pericardial conditions - The left ventricle is normal in size. There is moderate concentric left ventricular hypertrophy. Left ventricular systolic function is normal. EF = 57 5% (2D biplane) - The right ventricle is normal in size. Right ventricular systolic function is normal. - Tricuspid aortic valve. There is moderate aortic valve stenosis caused by calcified valve and restricted opening. AV area is 1.03 cm (0.55 cm /m ) by continuity, VTI. The peak gradient is 31 mmHg, the mean gradient is 19 mmHg and the dimensionless valve index is 0.31. Prior AV peak/mean gradients were 40/22 mmHg. - No evidence of constrictive physiology. - Exam was compared with the prior CC echocardiographic exam performed on 01/29/2023. Overall stable findings when compared to this immediate prior echo. Cardiac MRI 03/24/2023: IMPRESSION: - This study is limited by artifact from implantable cardiac device and indwelling leads, though adequate for interpretation. 1. No pericardial effusion or thickening. Trivial pericardial delayed enhancement, further mildly improved since last MRI. No pericardial edema and no evidence of constrictive physiology. 2. The left ventricular function is normal (55%) and size is normal (end-diastolic volume index 60 mL/m ). Again seen is subtle mid-myocardial delayed gadolinium enhancement in the basal lateral wall, which is a non-ischemic finding. 3. The right ventricle is normal in size (end-diastolic volume index 72 mL/m ) and function (50% ejection fraction). 4. Aortic valve is moderately thickened (+/-calcified) with flow acceleration across valve indicating degree of stenosis (peak velocity 2.3 m/s underestimated) - correlate with echo findings. Mild mitral thickening and regurgitaiton. - Exam was compared with the prior cardiac MR exam performed on 05/30/2022, further mild improvement of pericrdial enhancement otherwise similar findings. TTE : - The left ventricle is normal in size. There is moderate concentric left ventricular hypertrophy. Left ventricular systolic function is normal. EF = 57 5% (2D biplane) - The right ventricle is normal in size. Right ventricular systolic function is normal. - Tricuspid aortic valve. There is moderate aortic valve stenosis caused by calcified valve and restricted opening. AV area is 1.03 cm (0.55 cm /m ) by continuity, VTI. The peak gradient is 31 mmHg, the mean gradient is 19 mmHg and the dimensionless valve index is 0.31. Prior AV peak/mean gradients were 40/22 mmHg. - No evidence of constrictive physiology. - Exam was compared with the prior echocardiographic exam performed on 01/29/2023. Overall stable findings when compared to this immediate prior echo. IMPRESSION / PLAN: Complex 85 y/o followed in the EP clinic for SSS s/p PPM and PAF - asymptomatic. She is established with Dr Gregory, last seen in office November 2023 with Elena Durant. Last seen just prior to TAVR 02-09-24 for Since then - follow up PCI of the ostial RCA 12/25/2023 [facility]: R dominant system with a 60-70% ostial RCA lesion and a 60% ostial lesion in the second diagonal. Moderate disease in the mid LAD and OM1. s/p 4.0 x 15 mm AGENT Paclitaxel coated balloon with Dr. Somers c/o worsening SOB and pain radiating to the back since the procedure No obvious EP issues to explain this: Last AF -2023 (asymptomatic and rate controlled in the past) Rate histograms appropriate: PPM function is normal. Continue remotes q 3 months. Annual follow up - wishes to switch to [place]. Has follow up with Dr. Shetty and Dr. Dr. Somers Oct [address] Powers about the SOB and pain - not clear if this represents worsening angina. This note was created with electronic dictation and errors in syntax and meaning may have occurred. Xiao Suazo MD Pager: [phone] Office: [phone] I personally examined the patient and repeated the laurent components of the exam and cardiac history, past medical and surgical history, social and family history. The assessment and plan were formulated and discussed with the patient and family. I spent over 25 minutes (face time) and greater than 50% of this time was spent counseling and/or coordinating the care of the patient with regard the diagnosis and medical regimen Referring Physician: Jorge Benavides [address] [place] [id number] [address] KhalilFabrizio [address] [facility] [id number] documented in this encounterSelect [facility] [place] NoteHNO ID: [id number] Author: XIAO SUAZO MD Service: ? Author Type: Physician Type: Progress Notes Filed: 06/24/2024 10:46 Note Text: EP STAFF NOTE: Please note: This note has been produced using speech recognition software and may contain errors related to that system including grammar, punctuation, spelling, gender and words and phrases that may be inappropriate I have reviewed the above information and examined the patient and confirm the above with the following additions/modifications. ECG: PE: Vitals: BP 124/66 Pulse (!) 58 Wt 86.6 kg (190 lb 14.7 oz) SpO2 100% BMI 37.29 kg/m? [facility] In no acute distress. Lungs: Unlabored Heart: RRR, KULDIP Extremities: No peripheral edema bilaterally. DEVICE CHECK: DUAL LEAD PACEMAKERS REMOTE EVALUATION 01/14/2024: PRESENTING EGM: AP/VS BATTERY STATUS: Estimated time remaining to TORI is 7.5 yrs COUNTERS SINCE: 12/26/23 ATRIAL ARRHYTHMIAS: There was 1 AF event began on 12/25/23 that lasted 2.8 days. AF burden 11.3%. PAF per graph. On Eliquis per Epic. VENTRICULAR ARRHYTHMIAS: There have been no ventricular detections. LEAD MEASUREMENTS: Sensing and auto capture trends are appropriate. Review of the lead impedance trends are normal. OTHER DIAGNOSTICS: RA pacing 88.8%. RV pacing 8.4%. FOLLOW UP: Continue 3 month remote transmissions and yearly in-clinic interrogations. Talisha White RN NOTE TO PROVIDERS: CARD Flowsheets contain detailed device programming and testing data. Paceart/Interrogation PDF can be found under CARDIAC DATA AND REPORT, Scanned Documents section. : * Normal Device Function * Alerts or events: None * Battery: OK, 7.83 yrs * Sensing, impedance and thresholds reviewed * Programmed parameters reviewed * Presenting rhythm AP/VS with PVC * Heart Rate Histograms reviewed * No significant changes noted * AP 63.8%, ENDOCRINOLOGIST 33.2% (MVP On) Title: Tachycardia: AF * No available EGMs * AT/AF [place]: 36.2% * Total number of events: 0 Today: DUAL CHAMBER PACEMAKER EVALUATION PRESENTS FOR: Office visit with Dr. Suazo PRESENTING EGM: AP/VS UNDERLYING RHYTHM: No atrial intrinsic @ DDD 30, AV conduction intact. BATTERY STATUS: Estimated time remaining to TORI is 7.8 years. COUNTERS SINCE: 02/09/2024 ATRIAL ARRHYTHMIAS: No sustained AF since ~March 2024. Anticoagulants listed: Eliquis. VENTRICULAR ARRHYTHMIAS: There have been no ventricular detections since the last evaluation. LEAD MEASUREMENTS: RV sensing is WNL. RA/RV Captures are appropriate. The pacing outputs maintain safety margin. Review of the lead impedance trends are normal. IMPLANT SITE/ SYMPTOMS: The incision and pocket are pain-free (0/10), well healed and without signs of erosion or infection. No arm swelling, syncope, pre-syncope or device related pocket stimulation. 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 This does not seem to be worse or correlate with AF episodes. OTHER DIAGNOSTICS: RA pacing 71.7% V pacing 25.5% PROGRAMMING CHANGES MADE TODAY: None. FOLLOW UP: q3 month remotes with yearly clinic visits. PROBLEM LIST: Sroubek pt chronic UTIs hypothyroidism diabetes hyperlipidemia hypertension CKD aortic stenosis sick sinus syndrome s/p dual chamber pacemaker 2017 PAF CHADS VASc 7 - on Eliquis LBBB NM Spect/CT Cardiac Amyloid 12/26/2023: CONCLUSIONS: 1. Not Consistent with TTR amyloidosis 2. No bone abnormalities. Cardiac Cath 12/25/2023: Impression: -R dominant system with a 60-70% ostial RCA lesion and a 60% ostial lesion in the second diagonal. -Moderate disease in the mid LAD and OM1. Recommended Treatment: Medical Therapy. Plan: -Will discuss case in multidisciplinary TAVR meeting; can consider PCI to the ostial RCA +/- D2 or bypass if pursuing surgical option -Medical therapy for CAD Echo 11/19/2023: CONCLUSIONS: - Exam indication: Pericardial conditions - The left ventricle is normal in size. There is moderate concentric left ventricular hypertrophy. Left ventricular systolic function is normal. EF = 57 ? 5% (2D biplane) - The right ventricle is normal in size. Right ventricular systolic function is normal. - Tricuspid aortic valve. There is moderate aortic valve stenosis caused by calcified valve and restricted opening. AV area is 1.03 cm? (0.55 cm?/m?) by continuity, VTI. The peak gradient is 31 mmHg, the mean gradient is 19 mmHg and the dimensionless valve index is 0.31. Prior AV peak/mean gradients were 40/22 mmHg. - No evidence of constrictive physiology. - Exam was compared with the prior CC echocardiographic exam performed on 01/29/2023. Overall stable findings when compared to this immediate prior echo. Cardiac MRI 03/24/2023: IMPRESSION: - This study is limited by artifact from implantable cardiac device and indwelling leads, kayla (more content not included)...[facility] 06-22-2024 Telephone encounter Note* Telephone Encounter - Darion Terrell - 06/22/2024 2:10 PM EDT CALLED PT ON 06/14 AND 06/22 TO MAKE AWARE APT ON 08/13/24 HAS BEEN RESCHEDULED TO 11/10/24 NO ANSWER LVM -DARION TERRELL [facility] [place]09-24-2024 Miscellaneous Notes* Telephone Encounter - Darion Terrell - 06/22/2024 2:10 PM EDT CALLED PT ON 06/14 AND 06/22 TO MAKE AWARE APT ON 08/13/24 HAS BEEN RESCHEDULED TO 11/10/24 NO ANSWER LVM -DARION TERRELL documented in this encounterSelect [facility] [place]-2024 Telephone encounter Note * Telephone Encounter - Sheba Somers MD - 06/01/2024 4:55 PM EDT Ms Angulo does not feel any better after her RCA PCI (that procedure was not entirely successful due to the heavy burden of calcification at the RCA ostium so a stent could not be placed despite 2 different IVL balloons that ruptured and only DCB was used). She is very troubled by her SOB and fatigue. Other medical history is significant for: 1. CAD a. 12/25/2023 [facility]: R dominant system with a 60-70% ostial RCA lesion and a 60% ostial lesion in the second diagonal. Moderate disease in the mid LAD and OM1. 2. sp TAVR 23mm Balderas Zora S3 deployed at nominal volume -1cc 3. PAF (CHADSVASc 6 (age, DM, HTN, HF, gender) on eliquis 4. SSS sp dc PPM 5. HFpEF 59% 6. DM; A1c 6.4 7. HTN 8. HLD; LDL 95, lovastatin 20 9. CKD; Recent ~ 1.8 10. Hypothyroid 11. Chronic UTIs We discussed that another RCA PCI attempt using rotational atherectomy is feasible, but certainly carries risk of stroke or vessel trauma that could be fatal. Another possibility is whether orthodoxy of NSR could be helpful. This is outside of my area of expertise, but I would like her to follow-up with Dr Suazo in this regard. If cardioversion is either not possible or not helpful, we can consider re- attempt at ostial RCA PCI with the caveats as outlined above. Sheba Somers MD June 01, 2024 5:04 PM [facility] [place]09-03-2024 Miscellaneous Notes* Telephone Encounter - Sheba Somers MD - 06/01/2024 4:55 PM EDT Ms Angulo does not feel any better after her RCA PCI (that procedure was not entirely successful due to the heavy burden of calcification at the RCA ostium so a stent could not be placed despite 2 different IVL balloons that ruptured and only DCB was used). She is very troubled by her SOB and fatigue. Other medical history is significant for: 1. CAD a. 12/25/2023 [facility]: R dominant system with a 60-70% ostial RCA lesion and a 60% ostial lesion in the second diagonal. Moderate disease in the mid LAD and OM1. 2. sp TAVR 23mm Balderas Zora S3 deployed at nominal volume -1cc 3. PAF (CHADSVASc 6 (age, DM, HTN, HF, gender) on eliquis 4. SSS sp dc PPM 5. HFpEF 59% 6. DM; A1c 6.4 7. HTN 8. HLD; LDL 95, lovastatin 20 9. CKD; Recent ~ 1.8 10. Hypothyroid 11. Chronic UTIs We discussed that another RCA PCI attempt using rotational atherectomy is feasible, but certainly carries risk of stroke or vessel trauma that could be fatal. Another possibility is whether orthodoxy of NSR could be helpful. This is outside of my area of expertise, but I would like her to follow-up with Dr Suazo in this regard. If cardioversion is either not possible or not helpful, we can consider re- attempt at ostial RCA PCI with the caveats as outlined above. Sheba Somers MD June 01, 2024 5:04 PM documented in this encounterSelect [facility] [place]-[facility]-2024 Telephone encounter Note * Telephone Encounter - Edel Bailey - 06/01/2024 10:39 AM EDT The patient called and asked why her appointment 06/[address] Gregory was cancelled. I informedher per the notes it was due to her being seen 01/[address] Suazo. Asked the patient who she wants to follow and she mentioned seeing a provider at [facility]. I informed the patient that Dr. Carroll does see patients there but not Dr. Gregory. Provided the patient with the phone number to [facility] to schedule Edel Woodard, Admin [facility] [place]09-03-2024 Miscellaneous Notes* Telephone Encounter - Edel Bailey - 06/01/2024 10:39 AM EDT The patient called and asked why her appointment 06/[address] Gregory was cancelled. I informedher per the notes it was due to her being seen 01/[address] Suazo. Asked the patient who she wants to follow and she mentioned seeing a provider at [facility]. I informed the patient that Dr. Carroll does see patients there but not Dr. Gregory. Provided the patient with the phone number to [facility] to schedule Edel Woodard, Admin documented in this encounterSelect [facility] [place]-2024 Telephone encounter Note * Telephone Encounter - Elda Brooks HUC - 06/01/2024 10:22 AM EDT [phone] PT called and is stating she is still have SOB and not feeling well. Pt was supposed to have a cath but it was cancelled due to calcification issues, per patient. Will forward to Dr. Somers, however, pt also will follow up with Dr. Gregory's office. Because her local fire alarm operator said that it could be her being in constant Afib causing symptoms. [facility] [place]-03-2024 Miscellaneous Notes* Telephone Encounter - Elda Brooks HUC - 06/01/2024 10:22 AM EDT [phone] PT called and is stating she is still have SOB and not feeling well. Pt was supposed to have a cath but it was cancelled due to calcification issues, per patient. Will forward to Dr. Somers, however, pt also will follow up with Dr. Gregory's office. Because her local fire alarm operator said that it could be her being in constant Afib causing symptoms. documented in this encounterSelect [facility] [place]-[facility]24 History of Present illness Narrative* Cee Willard APRN.CNP - 06/01/2024 6:51 AM EDT Images from the original note were not included. Ramonlo Lynette Angulo, you have received one or more Fluoroscopically - Guided Interventions that has resulted in radiation dose that requires us to provide education and information. Please read the important information below and reply back if you have any questions or concerns. documented in this encounterSelect [facility] [place]-2024 History of Present illness Narrative* Stephania Espinoza APRN.CNP - 05/28/2024 2:48 PM EDT Images from the original note were not included. Subjective The history is provided by the patient. No biblical languages professor was used. RAMIRO Angulo is a 84 year old female who presents today for CC of hard bruise on left forearm. Patient was in the hospital for a stent placement 05/14. The spot where the bruising is noted is where an IV placement was attempted. She denies any injury or trauma. She is already on eliquis for afib, and placquenil. BP 122/60 Pulse 70 Temp 36.6 C (97.8 F) Resp 20 Wt 85 kg (187 lb 6.3 oz) SpO2 98% BMI 36.60 kg/m Social History Tobacco Use Smoking status: Never Smokeless tobacco: Never Vaping Use Vaping status: Never Used Substance Use Topics Alcohol use: No Drug use: Never PAST MEDICAL HISTORY No date: Anemia No date: Aortic stenosis No date: Atrial fibrillation (HCC) No date: Atrial flutter (HCC) No date: Bradycardia No date: Cancer (HCC) Comment: thyroid No date: Chronic kidney disease No date: Diabetes (HCC) No date: Gout No date: Heart attack (HCC) No date: HLD (hyperlipidemia) No date: Hypertension No date: Pericardial effusion No date: Recurrent UTI No date: Sleep apnea Comment: CPAP No date: SSS (sick sinus syndrome) ([facility]) No date: Thyroid disease I have confirmed and edited as necessary, the [facility] Review of Systems Constitutional: Negative for chills and fever. Musculoskeletal: Negative for joint pain and myalgias. Skin: Negative for itching and rash. Bruising on right left forearm All other systems reviewed and are negative. Objective Physical Exam Vitals and nursing note reviewed. Pulmonary: Effort: Pulmonary effort is normal. Skin: General: Skin is warm and dry. Findings: Bruising present. Comments: There is bruising noted with dime size hard spot in center of bruising Neurological: Mental Status: She is alert and oriented to person, place, and time. Psychiatric: Mood and Affect: Affect normal. ASSESSMENT/PLAN: 1. Bruising - ICD9: 924.9, ICD10: T14.8XXA Due to trauma, center appears to be hematoma Warm compresses to area Follow up with pcp prn Diagnosis and treatment plan were discussed and questions were answered to the patient's satisfaction. Pt acknowledged understanding of concepts and follow up plan. Specific signs and symptoms that would indicate the need for higher level of care were discussed indetail warranting prompt ER evaluation. Stephania Espinoza APRN.REFINERY PIPELINE OPERATOR documented in this encounterSelect Medical [facility] [place] Telephone encounter Note * Telephone Encounter - Earlene Erazo RN - 05/13/2024 1:41 PM EDT CARDIOVASCULAR LAB INSTRUCTIONS: Readiness to Learn: Cognitive Ability: Alert and oriented Motivation To Learn: Interested Family/Significant Other Support: Unable to assess - Family not present Instruction Provided To: Patient Patient Learns Best By: Verbal Instruction Factors Affecting Learning: None Physical Limitations Affecting Learning: None Learning Response: Procedure: PTCA/Stent Pre procedure education topics: Arrival time/NPO Status/Medications/Travel Instructions/Restrictions Patient/Family Response Evaluation: Verbalizes understanding Follow Up Plan and Medication: As directed by physician Instruction/Supplemental Material Given: Cardiac catheterization instructions, procedure information, hospital information, hotel information. Instructed By Earlene Erazo RN. In Department of CARDIOLOGY. [facility] [place]08-15-2024 Miscellaneous Notes* Telephone Encounter - Earlene Erazo RN - 05/13/2024 1:41 PM EDT CARDIOVASCULAR LAB INSTRUCTIONS: Readiness to Learn: Cognitive Ability: Alert and oriented Motivation To Learn: Interested Family/Significant Other Support: Unable to assess - Family not present Instruction Provided To: Patient Patient Learns Best By: Verbal Instruction Factors Affecting Learning: None Physical Limitations Affecting Learning: None Learning Response: Procedure: PTCA/Stent Pre procedure education topics: Arrival time/NPO Status/Medications/Travel Instructions/Restrictions Patient/Family Response Evaluation: Verbalizes understanding Follow Up Plan and Medication: As directed by physician Instruction/Supplemental Material Given: Cardiac catheterization instructions, procedure information, hospital information, hotel information. Instructed By Earlene Erazo RN. In Department of CARDIOLOGY. documented in this encounterSelect Medical [facility] [place] History of Present illness Narrative* Sandy Shetty DO - 05/11/2024 12:13 PM EDT Images from the original note were not included. [facility] SECTION OF [facility] CARDIOLOGY [facility] OUTPATIENT VISIT DATE May 11, 2024 PRIMARY CARE PHYSICIAN: Jorge Benavides [facility] [place] [address] HISTORY OF PRESENT ILLNESS: Ms. Angulo is a 84 year old female. The patient returns for follow-up due to her extensive cardiovascular history. This provider has not seen her in quite some time. She now has multiple cardiac providers providing care. She has developed dyspnea on exertion and a discomfort in her upper shouldersas well. She denies chest discomfort, orthopnea, paroxysmal nocturnal dyspnea, palpitations, near-syncope, syncope, GI/ bleeding or melena. The patient has an extensive heart history including recent TAVR with discovery of coronary disease and 70% RCA lesion. She has a history of paroxysmal atrial fibrillation but over the last few months when her symptoms appear to occur, she is now persistently in atrial fibrillation by her pacemaker. Additional history includes hypertension, hyperlipidemia, previous pericarditis which was effusive and bloody secondary to Xarelto and sick sinus syndrome status post permanent pacemaker. She appears to have an element of probable chronic diastolic heart fa ilure with previously elevated BNP's the most recent of which is her best to date in the 100s as opposed to the mild thousands. She is also had difficulty with labile blood pressure which apparently is stable as of late as well. PLAN AND RECOMMENDATIONS: Patient has symptoms which may be related to her coronary disease but in hindsight may be more so related to being persistently in atrial fibrillation. She has also developed probable chronic diastolic heart failure but recent BNP shows probable significant improvement. At this point in time she isscheduled for potential percutaneous coronary intervention in the near future and has stopped her Eliquis. We will carbon copy her multiple cardiac providers for improved coordination and collaboration of care. We will otherwise look forward to reevaluating her from a general cardiology standpoint in 6 months time. Dietary and lifestyle modification was emphasized to facilitate risk factor reduction. Vitals: BP 120/62 Pulse 64 Ht 152.4 cm (5') Wt 84.6 kg (186 lb 8.2 oz) SpO2 100% BMI 36.43 kg/m Physical Exam Vitals reviewed. Constitutional: General: She is not in acute distress. Appearance: Normal appearance. She is well-developed. HENT: Head: Normocephalic and atraumatic. Nose: Nose normal. Eyes: General: No scleral icterus. Right eye: No discharge. Left eye: No discharge. Pupils: Pupils are equal, round, and reactive to light. Neck: Thyroid: No thyromegaly. Vascular: No carotid bruit or JVD. Cardiovascular: Rate and Rhythm: Normal rate and regular rhythm. Heart sounds: Murmur heard. Crescendo decrescendo systolic murmur is present with a grade of 1/6. No friction rub. No gallop. Pulmonary: Effort: Pulmonary effort is normal. No respiratory distress. Breath sounds: Normal breath sounds. No wheezing or rales. Abdominal: General: Bowel sounds are normal. Palpations: Abdomen is soft. Musculoskeletal: General: Normal range of motion. Cervical back: Normal range of motion and neck supple. Skin: General: Skin is warm and dry. Capillary Refill: Capillary refill takes less than 2 seconds. Coloration: Skin is not pale. Neurological: Mental Status: She is alert and oriented to person, place, and time. Cranial Nerves: No cranial nerve deficit. Psychiatric: Behavior: Behavior normal. Thought Content: Thought content normal. Judgment: Judgment normal. Review of Systems Constitutional: Negative for activity change and fatigue. HENT: Negative for ear pain and facial swelling. Eyes: Negative for pain and discharge. Respiratory: Positive for shortness of breath. Negative for chest tightness. Cardiovascular: Negative for chest pain, palpitations and leg swelling. Gastrointestinal: Negative for abdominal pain, blood in stool, nausea and vomiting. Endocrine: Negative for cold intolerance and heat intolerance. Genitourinary: Negative for frequency and hematuria. Musculoskeletal: Negative for arthralgias and gait problem. Skin: Negative for color change, pallor and rash. Allergic/Immunologic: Negative for immunocompromised state. Neurological: Positive for light-headedness. Negative for dizziness, syncope and headaches. Hematological: Negative for adenopathy. Does not bruise/bleed easily. Psychiatric/Behavioral: Negative for confusion. The patient is not nervous/anxious. PAST MEDICAL HISTORY No date: Anemia No date: Aortic stenosis No date: Atrial fibrillation (HCC) No date: Atrial flutter (HCC) No date: Bradycardia No date: Cancer (HCC) Comment: thyroid No date: Chronic kidney disease No date: Diabetes (HCC) No date: Gout No date: Heart attack (HCC) No date: HLD (hyperlipidemia) No date: Hypertension No date: Pericardial effusion No date: Recurrent UTI No date: Sleep apnea Comment: CPAP No date: SSS (sick sinus syndrome) (HCC) No date: Thyroid disease PAST SURGICAL HISTORY No date: APPENDECTOMY HX No date: CATARACT SURGERY, COMPLEX No date: HYSTERECTOMY HX 2018: PPM DUAL No date: THYROIDECTOMY TOTAL/COMPLETE Comment: Parathyroid removal No date: TOTAL KNEE REPLACEMENT; Left Comment: x2- one revision Social History Tobacco Use Smoking status: Never Smokeless tobacco: Never Vaping Use Vaping Use: Never used Substance Use Topics Alcohol use: No Drug use: Never FAMILY HISTORY Problem Relation Age of Onset Uterine Cancer Mother Hypertension Father Lung Cancer Father other (Vascular) Son Hypertension Son ALLERGIES Allergen Reactions Darvon [Propoxyphen* Shortness of Breath, Other: See Comments No strength, bad dreams Iodine Anaphylaxis 12/24/23- pt. premedicated with 13 hrs, had CT scan with IV contrast. Patient denied any s/s of SOB, difficulty breathing, wheezing, itching or rash. Lotensin [Benazepri* Vomiting, Other: See Comments Coughing Rivaroxaban Other: See Comments Developed pericardial effusion Shellfish Anaphylaxis Shellfish Containin* Anaphylaxis, Shortness of Breath Spironolactone Other: See Comments Weak, made calcium level high, heart rate 20BPM Adhesive Rash Amlodipine Swelling Celecoxib Other: See Comments Due to kidneys Demeral [Meperidine] Vomiting Hydrochlorothiazide Other: See Comments Metformin Other: See Comments Metoprolol Shortness of Breath Penicillins Hives Simvastatin Myalgia, Other: See Comments Sitagliptin Other: See Comments CURRENT MEDICATIONS: amLODIPine (NORVASC) 10 mg tablet Take 1 tablet by mouth once daily. predniSONE (DELTASONE) 50 mg Take one tablet by mouth13 hrs prior to scan, then 7 hrs prior to scanand then 1 hr prior to scan diphenhydrAMINE (BENADRYL) 25 mg capsule Take 1 capsule by mouth 1 hour prior to procedure with last Prednisone apixaban (ELIQUIS) 5 mg tab(s) Take 1 tablet by mouth two times a day. furosemide (LASIX) 20 mg tablet Take 0.5 tablets by mouth once daily. glimepiride (AMARYL) 1 mg tablet Take 1 tablet by mouth daily with breakfast. colchicine 0.6 mg tablet Take 1 tablet by mouth every other day. olmesartan (BENICAR) 40 mg tablet Take 1 tablet by mouth once daily. finerenone (KERENDIA) 10 mg tablet q 24 HR. omega 1-ojp-ags-fish oil 360 mg-108 mg- 180 mg-1,200 mg cap q 24 HR. aspirin 81 mg chewable tablet Take 1 tablet by mouth once daily. doxazosin (CARDURA) 4 mg tablet Take 1 tablet by mouth daily at bedtime. carvedilol (COREG) 25 mg tablet Take 1 tablet by mouth twice daily with meals. vibegron (GEMTESA) 75 mg tablet Take 1 tablet by mouth once daily. Cranberry 500 mg cap Take 1 capsule by mouth once daily. Ascorbic Acid 500 mg cpER Take by mouth once daily. cinnamon bark (CINNAMON ORAL) Take by mouth. Take 2,00mg daily. lovastatin (MEVACOR) 20 mg tablet Take 20 mg by mouth daily at bedtime. cholecalciferol (VITAMIN D3) 5,000 unit tab Take 5,000 Units by mouth once daily. pantoprazole DR (PROTONIX) 40 mg tablet TAKE 1 TABLET BY MOUTH ONCE DAILY AT 6 AM levothyroxine (SYNTHROID) 125 mcg tablet Take 125 mcg by mouth once daily. latanoprost (XALATAN) 0.005 % ophthalmic solution Use 1 Drop in both eyes daily at bedtime. Sandy Shetty DO, FACC, FAC Billing Clinician, [facility] Ambulatory Cardiology Billing Clinician, [facility] Cardiac Rehabilitation Billing Clinician, [facility] Cardiac Rehabilitation Billing Clinician, [facility] Congestive [facility] Failure [facility] Billing Clinician, [facility] Ambulatory Cardiology Clinical Legislative Correspondent Profressor of Medicine, [facility] - [facility] Staff Sand Miller, Fercho Luevano Department of Cardiovascular Medicine/Heart and Vascular [place], [facility] [place] Please note: This note has been produced using speech recognition software and may contain errors related to that system including patricia, punctuation, spelling, words, gender and phrases that may be inappropriate. documented in this encounterSelect Medical [facility] [place]08-13-2024 Instructions* Patient Instructions* Sandy Shetty DO - 05/11/2024 12:08 PM EDT Vicky Bryan documented in this encounterCleveland [id number] History of Present illness Narrative* Celine Elizalde - 04/19/2024 10:33 AM EDTSummary: KCCQ-12 AMB TVT FOLLOWUP: Follow Up Type: Phone Call Call Attempt: 1st Attempt Call Status: Left Message and Questionnaire Answered [place] Cardiomyopathy Questionnaire (KCCQ-12) 1. How much you are limited by heart failure (shortness of breath or fatigue) in your ability to dothe following activities over the past 2 weeks A. Activity - Showering/bathin - Not at all limited B. Activity - Walking 1 block on level ground: 1 - Extremely limited C. Activity - Hurrying or jogging (as if to catch a bus): 6 - Limited for other reasons or did not do the activity 2. Over the past 2 weeks, how many times did you have swelling in your feet, ankles or legs when you woke up in the morning?: 1: Every morning 3. Over the past 2 weeks, on average, how many times did you has fatigue limited your ability to dowhat you wanted?: 2: Several times per day 4. Over the past 2 weeks, on average, how many times has shortness of breath limited your ability to do what you wanted?: 2: Several times per day 5. Over the past 2 weeks, on average, how many times have you been forced to sleep sitting up in a chair or with at least 3 pillows to prop you up because of shortness of breath?: 5: Never over the past 2 weeks 6. Over the past 2 weeks, how much has your heart failure limited your enjoyment of life?: 3 - It hs moderately limited my enjoyment of life 7. If you had to spend the rest of your life with your heart failure the way it is right now, how would you feel about this?: 2 - Mostly dissatisfied A. Hobbies, recreational activities: 5 - Did not limit at all B. Working or doing soccer player: 3 - Moderately limited C. Visiting family or friends out of your home: 5 - Did not limit at all Patient returned call and completed at 12:12 PM documented in this encounterSelect Medical [facility] [place]07-19-[facility] History of Present illness Narrative* Vicky Bryan PA-C - 04/16/2024 11:00 AM EDT Images from the original note were not included. Heart, Vascular and Thoracic [place] Fercho Reina Department of Cardiovascular Medicine SECTION OF INTERVENTIONAL CARDIOLOGY OUTPATIENT VISIT DATE April 16, 2024 OUTPATIENT VISIT TYPE ESTABLISHED PRIMARY CARE PHYSICIAN: Jorge Benavides [address] [place] [address] REFERRING PHYSICIAN: Therese Tse [address] [facility] [id number] CHIEF COMPLAINT: Patient presents with: Follow Up HISTORY OF PRESENT ILLNESS: Ms. Angulo is a 84 year old female who presents today for follow-up visit status post successful Transcatheter Aortic Valve Replacement with 23mm Balderas Zora S3 on 02/09/24. She has a pmhx of: VHD (Aortic Stenosis),s/p TAVR 02/09/24 SSS s/p PPM 2018 pAF (Eliquis) HTN HLD CKD Hx of pericarditis with pericardial effusion, s/p Pericardiocentesis (08/24/2020) DM II (Amaryl) Thyroid cancer Recurrent UTI's CAD, s/p C 12/20: Impression: -R dominant system with a 60-70% ostial RCA lesion and a 60% ostial lesion in the second diagonal. -Moderate disease in the mid LAD and OM1. Prior to TAVR, she complained of shortness of breath on exertion, leg edema and dizziness. Echo 11/22: EF = 57 5% Tricuspid aortic valve. There is moderate aortic valve stenosis caused by calcified valve and restricted opening. AV area is 1.03 cm (0.55 cm /m ) by continuity, VTI. The peak gradient is 31 mmHg, the mean gradient is 19 mmHg and the dimensionless valve index is 0.31. On 02/09/24, she underwent successful Transcatheter Aortic Valve Replacement with 23mm Balderas Zora S3 Post TAVR Echo: EF = 65 5% S/P transcatheter aortic valve replacement. Balderas S3 Ultra prosthetic aortic valve (size #23). There is trace aortic valve regurgitation. The peak gradient is 17 mmHg, the mean gradient is 8 mmHg and the dimensionless valve index is 0.56. Pre procedure EKG: Atrial paced with prolonged AV conduction, LBBB HR 65, DAO 318, QRS 176 Post procedure EKG: V paced rhythm HR 58, QRS 200 Discharge EKG: ATRIAL FIBRILLATION WITH SLOW VENTRICULAR RESPONSE WITH FREQUENT VENTRICULAR- PACED COMPLEXES COMPLETE LEFT BUNDLE BRANCH BLOCK HR 58, QRS 170 Today 04/16/24, she continues th have the same shortness of breath with walking and mid back pain.Symptoms subside with ~10 minutes of rest, no chest pain. She also admits to occasional palpitations She denies orthopnea, PND, lightheadedness, syncope, claudication, leg swelling, cough, and wheezing. PAST CARDIAC HISTORY: See HPI PAST MEDICAL HISTORY Diagnosis Date Anemia Aortic stenosis Atrial fibrillation (HCC) Atrial flutter (HCC) Bradycardia Cancer (HCC) thyroid Chronic kidney disease Diabetes (HCC) Gout Heart attack (HCC) HLD (hyperlipidemia) Hypertension Pericardial effusion Recurrent UTI Sleep apnea CPAP SSS (sick sinus syndrome) (HCC) Thyroid disease PAST SURGICAL HISTORY Procedure Laterality Date APPENDECTOMY HX CATARACT SURGERY, COMPLEX HYSTERECTOMY HX PPM DUAL 2018 THYROIDECTOMY TOTAL/COMPLETE Parathyroid removal TOTAL KNEE REPLACEMENT Left x2- one revision SOCIAL HISTORY Social History Tobacco Use Smoking status: Never Smokeless tobacco: Never Vaping Use Vaping Use: Never used Substance Use Topics Alcohol use: No Drug use: Never FAMILY HISTORY Problem Relation Age of Onset Uterine Cancer Mother Hypertension Father Lung Cancer Father other (Vascular) Son Hypertension Son ALLERGIES: ALLERGIES Allergen Reactions Darvon [Propoxyphen* Shortness of Breath, Other: See Comments No strength, bad dreams Iodine Anaphylaxis 12/24/23- pt. premedicated with 13 hrs, had CT scan with IV contrast. Patient denied any s/s of SOB, difficulty breathing, wheezing, itching or rash. Lotensin [Benazepri* Vomiting, Other: See Comments Coughing Rivaroxaban Other: See Comments Developed pericardial effusion Shellfish Anaphylaxis Shellfish Containin* Anaphylaxis, Shortness of Breath Spironolactone Other: See Comments Weak, made calcium level high, heart rate 20BPM Adhesive Rash Amlodipine Swelling Celecoxib Other: See Comments Due to kidneys Demeral [Meperidine] Vomiting Hydrochlorothiazide Other: See Comments Metformin Other: See Comments Metoprolol Shortness of Breath Penicillins Hives Simvastatin Myalgia, Other: See Comments Sitagliptin Other: See Comments MEDICATIONS: Current Outpatient Medications Medication Sig furosemide (LASIX) 20 mg tablet Take 0.5 tablets by mouth once daily. glimepiride (AMARYL) 1 mg tablet Take 1 tablet by mouth daily with breakfast. colchicine 0.6 mg tablet Take 1 tablet by mouth every other day. amLODIPine (NORVASC) 10 mg tablet Take 1 tablet by mouth once daily. olmesartan (BENICAR) 40 mg tablet Take 1 tablet by mouth once daily. finerenone (KERENDIA) 10 mg tablet q 24 HR. omega 6-pxj-xnl-fish oil 360 mg-108 mg- 180 mg-1,200 mg cap q 24 HR. aspirin 81 mg chewable tablet Take 1 tablet by mouth once daily. doxazosin (CARDURA) 4 mg tablet Take 1 tablet by mouth daily at bedtime. carvedilol (COREG) 25 mg tablet Take 1 tablet by mouth twice daily with meals. vibegron (GEMTESA) 75 mg tablet Take 1 tablet by mouth once daily. Cranberry 500 mg cap Take 1 capsule by mouth once daily. Ascorbic Acid 500 mg cpER Take by mouth once daily. cinnamon bark (CINNAMON ORAL) Take by mouth. Take 2,00mg daily. lovastatin (MEVACOR) 20 mg tablet Take 20 mg by mouth daily at bedtime. cholecalciferol (VITAMIN D3) 5,000 unit tab Take 5,000 Units by mouth once daily. pantoprazole DR (PROTONIX) 40 mg tablet TAKE 1 TABLET BY MOUTH ONCE DAILY AT 6 AM levothyroxine (SYNTHROID) 125 mcg tablet Take 125 mcg by mouth once daily. latanoprost (XALATAN) 0.005 % ophthalmic solution Use 1 Drop in both eyes daily at bedtime. apixaban (ELIQUIS) 5 mg tab(s) Take 1 tablet by mouth two times a day. No current facility-administered medications for this visit. REVIEW OF SYSTEMS: HEENT: Denies recent severe headaches, visual changes, difficulty swallowing. GASTROINTESTINAL: Denies melena, hematochezia, heartburn. GENITOURINARY: Denies hematuria. MUSCULOSKELETAL: Denies claudication or muscle myalgias. NEUROLOGIC: Denies unilateral paralysis, slurred speech. SKIN: Denies skin ulcers or lesions. HEMATOLOGICAL: Denies gingival bleeding, or prolonged epistaxis. ENDOCRINE:Denies heat or cold intolerance, excessive thirst or urination. All Other Remaining ROS negative. PHYSICAL EXAMINATION: BP 129/59 Pulse 64 Ht 5' 0 (1.52m) Wt 190 lb (86.2kg) BMI 37.11 kg/(m^2). General:obese Skin:warm and dry Neck:no JVD, no carotid bruits, thyroid not palpable, no tenderness Lungs:clear to auscultation and no rales Heart:regular rhythm, S1, S2 normal, no S3, no S4, no heaves, no thrills, and no murmur PV Pulses:pulses intact, no varicosities Abdomen:soft, non-tender, bowel sounds present Extremities:normal exam Edema Scale:no Musculoskeletal:in wheelchair Neurologic:Oriented to time, place and person, Mood & Affect: appropriate CARDIOVASCULAR MEDICINE TESTING: Electrocardiogram: ATRIAL-PACED RHYTHM WITH PROLONGED AV CONDUCTION LEFT AXIS DEVIATION COMPLETE LEFT BUNDLE BRANCH BLOCK (Unchanged from pre-op) Laboratory Testing: pending Echocardiogram: EF = 59 5% S/P transcatheter aortic valve replacement. Balderas S3 Ultra prosthetic aortic valve (size #23). There is no aortic valve regurgitation. The peak gradient is 24 mmHg, the mean gradient is 15 mmHg and the dimensionless valve index is 0.29. I have personally reviewed the Electrocardiogram, Laboratory Testing, and Echocardiogram. IMPRESSION: Ms. Angulo is a 84 year old female who presents today for follow-up visit status post successful Transcatheter Aortic Valve Replacement with 23mm Balderas Zora S3 on 02/09/24 Chronic diastolic heart failure Nonrheumatic aortic valve stenosis S/P TAVR (transcatheter aortic valve replacement) - Echo 11/22: EF = 57 5% Tricuspid aortic valve. There is moderate aortic valve stenosis caused by calcified valve and restricted opening. AV area is 1.03 cm (0.55 cm /m ) by continuity, VTI. The peak gradient is 31 mmHg, the mean gradient is 19 mmHg and the dimensionless valve index is 0.31. - S/p successful Transcatheter Aortic Valve Replacement with 23mm Balderas Zora S3 on 02/09/24 - Post TAVR Echo: EF = 65 5% S/P transcatheter aortic valve replacement. Balderas S3 Ultra prosthetic aortic valve (size #23). There is trace aortic valve regurgitation. The peak gradient is 17 mmHg, the mean gradient is 8 mmHg and the dimensionless valve index is 0.56. - Echo today 04/16/24: EF = 59 5% S/P transcatheter aortic valve replacement. Balderas S3 Ultra prosthetic aortic valve (size #23). There is no aortic valve regurgitation. The peak gradient is 24 mmHg, the mean gradient is 15 mmHg and the dimensionless valve index is 0.29. - Stable, well seated TAVR - Continue meds below (I49.5) SSS (sick sinus syndrome) Cardiac pacemaker - History of SSS s/p PPM 2017 - Remote PPM check 02/27/24 Paroxysmal atrial fibrillation (HCC) - On Eliquis, BB - Follow with EP - Device check 02/27/24: * No EGMs available for viewing however presenting rhythm consistent with or suggestive of Atrial Fibrillation * AT [place]: 100% * Total number of events: 1 Title: Normal Remote: With Events * Normal Device Function * Battery: OK, 8.2 yrs * Presenting EGM: AF/ENDOCRINOLOGIST * Atrial arrhythmias: There has been 1 AF detection since last remote check on 02/10/2024. AT/AF burden 100%. Episode on 02/09/2024 indicates AF lasting 11h 41m, no EGM available for review. On Eliquis. * Sensing, impedance and thresholds reviewed and WNL. 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 [place] heart without angina pectoris Primary hypertension Mixed hyperlipidemia - [facility] 12/20: Impression: R dominant system with a 60-70% ostial RCA lesion and a 60% ostial lesion in the second diagonal. Moderate disease in the mid LAD and OM1. - Continued shortness of breath and mid back pain- Will discuss with Dr. Somres - BP controlled - 11/22 LDL: 95 History of pericarditis - Hx of pericarditis with pericardial effusion, s/p Pericardiocentesis (08/24/2020) - Follow with Dr. Hoffman PLAN AND RECOMMENDATIONS: Aspirin 81mg daily DAPT: none AC: Eliquis 5 mg BID SBE prophylaxis Beta Ricarda: Carvedilol 25mg BID ACEI/ARB/ARNI: Olmesartan 40mg daily SGLT2 inhibitor: none Diuretic: none Aldosterone antagonist: none Statin: Lovastatin 20mg HS Additional Medications: Colchicine 0.6mg daily Amlodipine 10mg daily Cardura 4mg HS Finerenone 10mg daily Tele/EKG (Images/strips reviewed): PACED/ AFIB + baseline LBBB Device therapy: PPM remote check 02/27/24 Follow up/Disposition: - Cardiac rehab enrolled locally - Follow up with , Dr. Shetty 05/11/24, Dr. Cifuentes 08/13/24 I spent a total of 45 minutes on the date of the service which included preparing to see the patient, [id number] patient care, completing clinical documentation, obtaining and/or reviewing separately obtained history, performing a medically appropriate examination, counseling and educating the pat ient/family/caregiver, ordering medications, tests, or procedures, communicating with other HCPs (not separately reported), independently interpreting results (not separately reported), communicatingresults to the patient/family/caregiver, and care coordination (not separately reported). Vicky Bryan PA-C documented in this encounter[facility] [place] Telephone encounter Note * Telephone Encounter - Deepak Best APRN.CNP - 03/05/2024 4:30 PM EDT Spoke with patient regarding lab results Will decrease furosemide to 10 mg every day Nt pro BNP pending today Reports weight is around 190.2 lbs Is looking forward to beginning cardiac rehab locally 03/09/24 Creatinine Date Value Ref Range Status 03/05/2024 1.99 (H) 0.58 - 0.96 mg/dL Final 02/18/2024 1.57 (H) 0.58 - 0.96 mg/dL Final 02/10/2024 1.34 (H) 0.58 - 0.96 mg/dL Final 02/05/2024 1.56 (H) 0.58 - 0.96 mg/dL Final Deepak Best APRN.CNP [facility] [place]06-07-2024 Miscellaneous Notes* Telephone Encounter - Deepak Best APRN.CNP - 03/05/2024 4:30 PM EDT Spoke with patient regarding lab results Will decrease furosemide to 10 mg every day Nt pro BNP pending today Reports weight is around 190.2 lbs Is looking forward to beginning cardiac rehab locally 03/09/24 Creatinine Date Value Ref Range Status 03/05/2024 1.99 (H) 0.58 - 0.96 mg/dL Final 02/18/2024 1.57 (H) 0.58 - 0.96 mg/dL Final 02/10/2024 1.34 (H) 0.58 - 0.96 mg/dL Final 02/05/2024 1.56 (H) 0.58 - 0.96 mg/dL Final Deepak Best APRN.CNP documented in this encounter[facility] [place] Telephone encounter Note * Telephone Encounter - Deepak Best APRN.CNP - 02/27/2024 4:48 PM EDT Spoke with patient No improvement since out last visit. Labs done shows elevated NT pro BNP Will start furosemide 40 mg x 3 days then 20 mg every day Repeat labs next week with close attention to renal function. Deepak Best APRN.CNP NT Pro BNP Date Value Ref Range Status 02/18/2024 2,714 (H) <450 pg/mL Final Creatinine Date Value Ref Range Status 02/18/2024 1.57 (H) 0.58 - 0.96 mg/dL Final 02/10/2024 1.34 (H) 0.58 - 0.96 mg/dL Final 02/05/2024 1.56 (H) 0.58 - 0.96 mg/dL Final 12/25/2023 1.47 (H) 0.58 - 0.96 mg/dL Final [facility] [place]05-31-2024 Miscellaneous Notes* Telephone Encounter - Deepak Best APRN.CNP - 02/27/2024 4:48 PM EDT Spoke with patient No improvement since out last visit. Labs done shows elevated NT pro BNP Will start furosemide 40 mg x 3 days then 20 mg every day Repeat labs next week with close attention to renal function. Deepak Best APRN.CNP NT Pro BNP Date Value Ref Range Status 02/18/2024 2,714 (H) <450 pg/mL Final Creatinine Date Value Ref Range Status 02/18/2024 1.57 (H) 0.58 - 0.96 mg/dL Final 02/10/2024 1.34 (H) 0.58 - 0.96 mg/dL Final 02/05/2024 1.56 (H) 0.58 - 0.96 mg/dL Final 12/25/2023 1.47 (H) 0.58 - 0.96 mg/dL Final * Telephone Encounter - Ramonita Leung - 02/27/2024 9:28 AM EDT States she would like call back from Deepak Best if possible. Still having fluid retention, and SOB with exertion; getting dressed, moving around is exhausted. CB#: [phone] Ramonita Youngblood Clinical Pharmacy Specialist documented in this encounterSelect [facility] [place] Telephone encounter Note * Telephone Encounter - Ramonita Leung - 02/27/2024 9:28 AM EDT States she would like call back from Deepak Best if possible. Still having fluid retention, and SOB with exertion; getting dressed, moving around is exhausted. CB#: [phone] Ramonita Youngblood Clinical Pharmacy Specialist [facility] [place]05-28-2024 Telephone encounter Note* Telephone Encounter - Lynette Ervin APRN.REFINERY PIPELINE OPERATOR - 02/24/2024 10:40 AM EDT Spoke with pt, she denies SOB She always has increased leg swelling towards end of the day Her BNP is elevated but trending down since last month as she is S/P TAVR about 3 weeks ago Creat is 1.57 Advised to monitor weight, wear compression hose and elevated leg in recliner and let us know if swelling worsens and weight trends up [facility] [place]05-28-2024 Miscellaneous Notes* Telephone Encounter - Lynette Ervin APRN.CNP - 02/24/2024 10:40 AM EDT Spoke with pt, she denies SOB She always has increased leg swelling towards end of the day Her BNP is elevated but trending down since last month as she is S/P TAVR about 3 weeks ago Creat is 1.57 Advised to monitor weight, wear compression hose and elevated leg in recliner and let us know if swelling worsens and weight trends up * Telephone Encounter - Keyonna Nur - 02/24/2024 10:30 AM EDT February 24, 2024 Patient Contact Number: [phone] Patient last seen within the last year: Yes Date of last office visit: 02/18/2024 Reason For Call: Test Results/ Leg Swelling Physician: Garth Hoffman MD Patient was informed that non-urgent calls may be returned within the next three business days. Yes Would like to know results and if she needs medications for leg swelling Keyonna Nur documented in this encounterSelect [facility] [place] Telephone encounter Note * Telephone Encounter - Keyonna Nur - 02/24/2024 10:30 AM EDT February 24, 2024 Patient Contact Number: [phone] Patient last seen within the last year: Yes Date of last office visit: 02/18/2024 Reason For Call: Test Results/ Leg Swelling Physician: Garth Hoffman MD Patient was informed that non-urgent calls may be returned within the next three business days. Yes Would like to know results and if she needs medications for leg swelling Keyonna Nur [facility] [place]05-28-2024 Telephone encounter Note* Telephone Encounter - Madison Enciso - 02/24/2024 9:15 AM EDT Orders faxed [facility] [place]05-28-2024 Miscellaneous Notes* Telephone Encounter - Tyson Madison Voss - 02/24/2024 9:15 AM EDT Orders faxed * Telephone Encounter - Deepak Best APRN.CNP - 02/19/2024 1:25 PM EDT Spoke with patient She would like to go to [facility] for cardiac rehab s/p TAVR Orders placed. Deepak Best APRN.CNP * Telephone Encounter - Tyson Madison Voss - 02/19/2024 11:24 AM EDT Pt calling to speak with Deepak. She states she's seen her yesterday and has a few follow up questionsabout cardiac rehab. She asks that you please call her back at [phone] documented in this encounterSelect [facility] [place]24 Telephone encounter Note * Telephone Encounter - Deepak Best APRN.CNP - 02/19/2024 1:25 PM EDT Spoke with patient She would like to go to [facility] for cardiac rehab s/p TAVR Orders placed. Deepak Best APRN.CNP [facility] [place]05-23-2024 Telephone encounter Note* Telephone Encounter - Tyson Madison Voss - 02/19/2024 11:24 AM EDT Pt calling to speak with Deepak. She states she's seen her yesterday and has a few follow up questionsabout cardiac rehab. She asks that you please call her back at [phone] [facility] [place]05-22-[facility]24 History of Present illness Narrative* 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 PIPELINE OPERATOR - 02/18/2024 2:45 PM EDT Images from the original note were not included. [facility] [place] [facility] Department of Cardiovascular Medicine SECTION OF PREVENTIVE CARDIOLOGY February 18, 2024 Lynette Angulo CURRENT MEDS: Current Outpatient Medications Medication Sig apixaban (ELIQUIS) 5 mg tab(s) Take 1 tablet by mouth two times a day. Patient should start on February 11, 2024. glimepiride (AMARYL) 1 mg tablet Take 1 tablet by mouth daily with breakfast. colchicine 0.6 mg tablet Take 1 tablet by mouth every other day. ammonium lactate (LAC-HYDRIN) 12 % lotion amLODIPine (NORVASC) 10 mg tablet Take 1 tablet by mouth once daily. olmesartan (BENICAR) 40 mg tablet Take 1 tablet by mouth once daily. finerenone (KERENDIA) 10 mg tablet q 24 HR. omega 5-ckp-rlk-fish oil 360 mg-108 mg- 180 mg-1,200 mg cap q 24 HR. aspirin 81 mg chewable tablet Take 1 tablet by mouth once daily. doxazosin (CARDURA) 4 mg tablet Take 1 tablet by mouth daily at bedtime. carvedilol (COREG) 25 mg tablet Take 1 tablet by mouth twice daily with meals. vibegron (GEMTESA) 75 mg tablet Take 1 tablet by mouth once daily. Cranberry 500 mg cap Take 1 capsule by mouth once daily. Ascorbic Acid 500 mg cpER Take by mouth once daily. cinnamon bark (CINNAMON ORAL) Take by mouth. Take 2,00mg daily. lovastatin (MEVACOR) 20 mg tablet Take 20 mg by mouth daily at bedtime. cholecalciferol (VITAMIN D3) 5,000 unit tab Take 5,000 Units by mouth once daily. pantoprazole DR (PROTONIX) 40 mg tablet TAKE 1 TABLET BY MOUTH ONCE DAILY AT 6 AM levothyroxine (SYNTHROID) 125 mcg tablet Take 125 mcg by mouth once daily. latanoprost (XALATAN) 0.005 % ophthalmic solution Use 1 Drop in both eyes daily at bedtime. No current facility-administered medications for this visit. ALLERGIES: ALLERGIES Allergen Reactions Darvon [Propoxyphen* Shortness of Breath, Other: See Comments No strength, bad dreams Iodine Anaphylaxis 12/24/23- pt. premedicated with 13 hrs, had CT scan with IV contrast. Patient denied any s/s of SOB, difficulty breathing, wheezing, itching or rash. Lotensin [Benazepri* Vomiting, Other: See Comments Coughing Rivaroxaban Other: See Comments Developed pericardial effusion Shellfish Anaphylaxis Shellfish Containin* Anaphylaxis, Shortness of Breath Spironolactone Other: See Comments Weak, made calcium level high, heart rate 20BPM Adhesive Rash Amlodipine Swelling Celecoxib Other: See Comments Due to kidneys Demeral [Meperidine] Vomiting Hydrochlorothiazide Other: See Comments Metformin Other: See Comments Metoprolol Shortness of Breath Penicillins Hives Simvastatin Myalgia, Other: See Comments Sitagliptin Other: See Comments CHIEF COMPLAINT: Lynette Angulo is a 84 year old White female seen today. Patient presents with: Follow Up HISTORY OF PRESENT CARDIOVASCULAR ILLNESS: 84 year old female with a PMH significant for pericarditis, hypertension, type 2 diabetes mellitus,stage 4 chronic kidney disease, SSS (status post DC-PM), aortic stenosis. Pt presents for follow upof hypertension. On 02/09/24 she underwent TAVR. Reports she is slowly recovering. Notes she has some MCGOVERN with housework. Chest pain: No Claudication: No SOB: see above Orthopnea: No PND: No LE: unchanged Lightheadedness/dizziness: no Palpitations:No Bleeding/bruising: No CARDIAC RISK FACTORS: Diabetes : Hypertension : Exercise: Does not exercise Limited by knee pain Avg. Sleep Hours Per Night?: 5.5 STATIN INTOLERANCE: Adverse Effect History of Statin Intolerance:: No Current Statin Freq: Every Day USE OF PCSK9 INHIBITORS: CARDIOVASCULAR DISEASE HISTORY: FAMILY AND SOCIAL HISTORY Lifestyle Tobacco Use: Never Alcohol Use: No PHYSICAL EXAMINATION Vital Signs and General Appearance BP 106/62 Pulse 60 Ht 157.5 cm (5' 2.01) Wt 89.4 kg (197 lb) BMI 36.02 kg/m BMI 36.02 kg/(m^2) PHYSICAL EXAMINATION: General appearance: well appearing, alert, in no acute distress, and well- hydrated, well nourished Carotid Pulses: Left:2+, Right: 2+, Bruit: No Lungs: lungs clear to auscultation no wheezing or rhonchi Heart: S1/S2, RRR Lower Extremities Pulses: Right Posterior Tibial: 2+, Left Posterior Tibial: 2+, Edema: +1 bilateral LE Clinical Test Results Last ECHO Result Conclusion ECHO Collected: 02/09/2024 12:54 PM (Final result) Impression: CONCLUSIONS: - Technically difficult exam due to suboptimal positioning. - Exam indication: s/p TAVR - The left ventricle is normal in size. Left ventricular systolic function is normal. EF = 65 5% (visual est.) - The right ventricle is normal in size. Right ventricular systolic function is normal. - There is moderate (2+) tricuspid valve regurgitation. - S/P transcatheter aortic valve replacement. Balderas S3 Ultra prosthetic aortic valve (size #23). There is trace aortic valve regurgitation. The peak gradient is 17 mmHg, the mean gradient is 8 mmHg and the dimensionless valve index is 0.56. Prior OR peak and mean gradient of 12/6 mmHg. - Exam was compared with the prior echocardiographic exam performed on 11/19/2023 and 02/09/2024 (OR Echo). Now s/p TAVR. * * * Final * * * Last EKG Result Conclusion ECG COMPLETE Collected: 02/18/2024 11:53 AM (Preliminary result) Impression: VENTRICULAR-PACED RHYTHM ABNORMAL ECG Ejection Fraction: Ejection Fraction: Normal (>50%) Lab Results: Lipoprotein (a) Date Value Ref Range Status 12/24/2023 6 <30 mg/dL Final Cholesterol, Total Date Value Ref Range Status 11/19/2023 192 <200 mg/dL Final Comment: <200 mg/dL, Desirable 200-239 mg/dL, Borderline high >239 mg/dL, High Triglyceride Date Value Ref Range Status 11/19/2023 49 <150 mg/dL Final Comment: <150 mg/dL, Normal 150-199 mg/dL, Borderline high 200-499 mg/dL, High >499 mg/dL, Very high HDL Cholesterol Date Value Ref Range Status 11/19/2023 87 >39 mg/dL Final Comment: 40-59 mg/dL, Acceptable >59 mg/dL, High: Negative risk factor for coronary heart disease <40 mg/dL, Low: Positive risk factor for coronary heart disease LDL Cholesterol Date Value Ref Range Status 11/19/2023 95 <100 mg/dL Final Comment: <100 mg/dL, Optimal 100-129 mg/dL, Near optimal/above optimal 130-159 mg/dL, Borderline high 160-189 mg/dL, High >189 mg/dL, Very high Secondary prevention optimal LDL Cholesterol levels are recommended to be < 70 mg/dL Hemoglobin A1C Date Value Ref Range Status 01/30/2023 6.4 (H) 4.3 - 5.6 % Final Comment: [place] [employer] guidelines indicate that patients with HgbA1c in the range 5.7-6.4% are at increased risk for development of diabetes, and intervention by lifestyle modification may be beneficial. HgbA1c greater or equal to 6.5% is considered diagnostic of diabetes. ALT Date Value Ref Range Status 02/18/2024 17 7 - 38 U/L Final Glucose Date Value Ref Range Status 02/18/2024 169 (H) 74 - 99 mg/dL Final Comment: The [place] Diabetes [employer] (ADA) provides guidance for cutoff values for fasting glucose andrandom glucose. The ADA defines fasting as no caloric intake for at least 8 hours. Fasting plasma glucose results between 100 to 125 mg/dL indicate increased risk for diabetes (prediabetes). Fasting plasma glucose results greater than or equal to 126 mg/dL meet the criteria for diagnosis of diabetes. In the absence of unequivocal hyperglycemia, results should be confirmed by repeat testing. In a patient with classic symptoms of hyperglycemia or hyperglycemic crisis, random plasma glucose results greater than or equal to 200 mg/dL meet the criteria for diagnosis of diabetes. Reference: Standards of Medical Care in Diabetes 2016, [place] [employer]. Diabetes Care. 2016.39(Suppl 1). TSH Date Value Ref Range Status 01/30/2023 0.962 0.270 - 4.200 mIU/L Final UltraSens C-Reactive Protein Date Value Ref Range Status 01/29/2023 3.2 (H) <3.1 mg/L Final Comment: hsCRP < 1.0 mg/L, relative risk is low hsCRP 1.0-3.0 mg/L, relative risk is average hsCRP > 3.0 mg/L, relative risk is high Reference: Lily TA, Delores GA, Angel RW, et al. Markers of Inflammation and Cardiovascular Disease. Application to Clinical and Public Health Practice. A Statement for Healthcare Professionals from the Centers for Disease Control and Prevention and the [place] [employer]. Circulation 2003;107:499-511. Albumin/Creat Ratio Date Value Ref Range Status 11/27/2022 538 (H) <30 mg/g Final Comment: Adult Male and Female Nephrotic Criteria: <30 mg/g is considered normal to mildly increased 30-300 mg/g is considered moderately increased >300 mg/g is considered severely increased KDIGO. (2013). KDIGO 2012 Clinical Practice Guideline for the Evaluation and Management of Chronic Kidney Disease. Official Journal of the International Society of Nephrology, 3(1), 1-150. Creatinine Date Value Ref Range Status 02/18/2024 1.57 (H) 0.58 - 0.96 mg/dL Final Potassium Date Value Ref Range Status 02/18/2024 4.6 3.7 - 5.1 mmol/L Final NT Pro BNP Date Value Ref Range Status 02/18/2024 2,714 (H) <450 pg/mL Final Patient Entered Questionnaire Scores IMPRESSION: In summary, Ms. Angulo is a 84 year old female who was referred to the [facility] because of , Hypertension PLAN: The results of this assessment were discussed with the patient. We have mutually agreed upon the following plans and goals: Pericarditis: follows Dr. Hoffman s/p MS Pt reports having an MS on 12/01/22. She was [facility] at [facility]. [facility] completed. No PCI Moderate/Severe : Successful TF TAVR,post procedure echo Balderas S3 Ultra prosthetic aortic valve(size #23). There is trace aortic valve regurgitation. The peak gradient is 17 mmHg, the mean gradient is 8 mmHg and the dimensionless valve index is 0.56. Prior OR peak and mean gradient of 12/6 mmHg Hypertension, stage 4 CKD, proteinuria: blood pressure well controlled today Home BP monitoring, call if BP >130/80 Amlodipine 10 mg olmesartan 40 mg nightly Coreg 25 mg BID Doxazosin 4 mg nightly CKD: Creatinine Date Value Ref Range Status 02/18/2024 1.57 (H) 0.58 - 0.96 mg/dL Final 02/10/2024 1.34 (H) 0.58 - 0.96 mg/dL Final 02/05/2024 1.56 (H) 0.58 - 0.96 mg/dL Final 12/25/2023 1.47 (H) 0.58 - 0.96 mg/dL Final Hyperlipidemia: Cholesterol, Total (mg/dL) Date Value 11/19/2023 192 12/21/2020 286 HDL Cholesterol (mg/dL) Date Value 11/19/2023 87 12/21/2020 81 LDL Cholesterol (mg/dL) Date Value 11/19/2023 95 12/21/2020 186 LDL Cholesterol, Nonfasting (mg/dL) Date Value 05/14/2023 76 Triglyceride (mg/dL) Date Value 11/19/2023 49 12/21/2020 95 Plan: - update lipid next visit Diabetes: Hemoglobin A1C 6.4 01/30/2023 Hemoglobin A1C 5.8 01/09/2022 Hemoglobin A1C 6.2 08/24/2020 Plan: - followed by PCP Exercise: Please attempt to increase your activity slowly The [place] [employer] Association recommends 150 minutes of moderate intensity exercise per week. Nutrition /Weight: BMI 36.02 kg/(m^2) PLAN: -Low sodium diet less than 2300 mg day -Recommend BMI less than 27 -Follow a Mediterranean diet: Choose plenty of whole or plant based foods-fruit, vegetables, whole grains, and nuts. Choose monounsaturated fat from olive oil, olives, nuts, and avocado. [place] 3 fats are another heart healthy fat found in tuna, salmon, flaxseed, and walnuts. Limit foods high in sodium, saturated fat, and cholesterol. HEALTH MAINTENANCE: Please follow-up with your Primary Card Physician and review your health maintenance to ensure it is up to date. MEDICATION CHANGES: none Physicians and Nurse Practitioners work closely together in Preventive Cardiology. If at any time you would like to see a Physician for a visit, please let us know. [facility]: Vane 11/27/22 AMBULATORY PATIENT EDUCATION Topic: Education on risk factors and medications. Instruction Provided To: Patient Cognitive Ability: Alert/Oriented Barriers: None Motivation to Learn: Interested Methods of Instruction: Verbal instruction and/or handouts. Patient Leans Best By: Multiple Methods Patient Verbalized: Understanding I personally spent 35 minutes in total time involved in the management and care of this patient. Deepak Best APRN.MOIZ documented in this encounterSelect [facility] [place] History of Present illness Narrative* Lynette Ervin APRN.CNP - 02/18/2024 10:00 AM EDT Images from the original note were not included. [facility] [place] [facility] Department of Cardiovascular Medicine SECTION OF CARDIOVASCULAR IMAGING OUTPATIENT VISIT DATE February 17, 2024 OUTPATIENT VISIT TYPE ESTABLISHED PRIMARY CARE PHYSICIAN: Jorge Benavides [facility] [place] [address] REFERRING PHYSICIAN: Lesli Shaver [address] [place] [id number] CHIEF COMPLAINT: Follow TAVR HISTORY OF PRESENT ILLNESS: Ms. Angulo is a 84 year old female who presents today for follow-up visit with PMHx of SSS s/p PPM, pAF, HFpEF, HTN, DM2, CKD. She was last seen in Clinic by the [facility] and referred for TAVR workup. Patient underwent Successful TF TAVR via 14 Fr R OFFICE SECRETARY with a 23 mm Zora 3 Ultra at -1 cc ECHO post procedure: CONCLUSIONS: - Technically difficult exam due to suboptimal positioning. - Exam indication: s/p TAVR - The left ventricle is normal in size. Left ventricular systolic function is normal. EF = 65 5% (visual est.) - The right ventricle is normal in size. Right ventricular systolic function is normal. - There is moderate (2+) tricuspid valve regurgitation. - S/P transcatheter aortic valve replacement. Balderas S3 Ultra prosthetic aortic valve (size #23). There is trace aortic valve regurgitation. The peak gradient is 17 mmHg, the mean gradient is 8 mmHgand the dimensionless valve index is 0.56. Prior OR peak and mean gradient of 12/6 mmHg. - Exam was compared with the prior CC echocardiographic exam performed on 11/19/2023 and 02/09/2024 (OR Echo). Now s/p TAVR. Pre procedure EKG: Atrial paced with prolonged AV conduction, LBBB HR 65, DAO 318, QRS 176 She denies chest pain, shortness of breath, orthopnea, cough, edema, palpitations, PND, lightheadedness or syncope. PAST CARDIAC HISTORY: She has been seen in the past for aortic stenosis, SSS s/p PPM, paroxysmal atrial fibrillation, hypertension, CKD, DM2, and pericarditis with pericardial effusion. She was last seen on 05/14/2023 by Yasmin Mcclendon. Last ECHO showed mod- severe as per the calculated STEVE, while the dimensionless index and transaortic gradients suggest moderate aortic stenosis . PAST MEDICAL HISTORY Diagnosis Date Anemia Aortic stenosis Atrial fibrillation (HCC) Atrial flutter (HCC) Bradycardia Cancer (HCC) thyroid Chronic kidney disease Diabetes (HCC) Gout Heart attack (HCC) HLD (hyperlipidemia) Hypertension Pericardial effusion Recurrent UTI Sleep apnea CPAP SSS (sick sinus syndrome) (HCC) Thyroid disease PAST SURGICAL HISTORY Procedure Laterality Date APPENDECTOMY HX CATARACT SURGERY, COMPLEX HYSTERECTOMY HX PPM DUAL 2018 THYROIDECTOMY TOTAL/COMPLETE Parathyroid removal TOTAL KNEE REPLACEMENT Left x2- one revision SOCIAL HISTORY Social History Tobacco Use Smoking status: Never Smokeless tobacco: Never Vaping Use Vaping Use: Never used Substance Use Topics Alcohol use: No Drug use: Never FAMILY HISTORY Problem Relation Age of Onset Uterine Cancer Mother Hypertension Father Lung Cancer Father other (Vascular) Son Hypertension Son ALLERGIES: ALLERGIES Allergen Reactions Darvon [Propoxyphen* Shortness of Breath, Other: See Comments No strength, bad dreams Iodine Anaphylaxis 12/24/23- pt. premedicated with 13 hrs, had CT scan with IV contrast. Patient denied any s/s of SOB, difficulty breathing, wheezing, itching or rash. Lotensin [Benazepri* Vomiting, Other: See Comments Coughing Rivaroxaban Other: See Comments Developed pericardial effusion Shellfish Anaphylaxis Shellfish Containin* Anaphylaxis, Shortness of Breath Spironolactone Other: See Comments Weak, made calcium level high, heart rate 20BPM Adhesive Rash Amlodipine Swelling Celecoxib Other: See Comments Due to kidneys Demeral [Meperidine] Vomiting Hydrochlorothiazide Other: See Comments Metformin Other: See Comments Metoprolol Shortness of Breath Penicillins Hives Simvastatin Myalgia, Other: See Comments Sitagliptin Other: See Comments MEDICATIONS: apixaban (ELIQUIS) 5 mg tab(s) Take 1 tablet by mouth two times a day. Patient should start on February 11, 2024. glimepiride (AMARYL) 1 mg tablet Take 1 tablet by mouth daily with breakfast. colchicine 0.6 mg tablet Take 1 tablet by mouth every other day. ammonium lactate (LAC-HYDRIN) 12 % lotion cephALEXin (KEFLEX) 250 mg capsule Take 1 capsule by mouth daily at bedtime. amLODIPine (NORVASC) 10 mg tablet Take 1 tablet by mouth once daily. olmesartan (BENICAR) 40 mg tablet Take 1 tablet by mouth once daily. finerenone (KERENDIA) 10 mg tablet q 24 HR. omega 0-mhd-hjn-fish oil 360 mg-108 mg- 180 mg-1,200 mg cap q 24 HR. aspirin 81 mg chewable tablet Take 1 tablet by mouth once daily. doxazosin (CARDURA) 4 mg tablet Take 1 tablet by mouth daily at bedtime. carvedilol (COREG) 25 mg tablet Take 1 tablet by mouth twice daily with meals. vibegron (GEMTESA) 75 mg tablet Take 1 tablet by mouth once daily. Cranberry 500 mg cap Take 1 capsule by mouth once daily. Ascorbic Acid 500 mg cpER Take by mouth once daily. cinnamon bark (CINNAMON ORAL) Take by mouth. Take 2,00mg daily. lovastatin (MEVACOR) 20 mg tablet Take 20 mg by mouth daily at bedtime. cholecalciferol (VITAMIN D3) 5,000 unit tab Take 5,000 Units by mouth once daily. pantoprazole DR (PROTONIX) 40 mg tablet TAKE 1 TABLET BY MOUTH ONCE DAILY AT 6 AM levothyroxine (SYNTHROID) 125 mcg tablet Take 125 mcg by mouth once daily. latanoprost (XALATAN) 0.005 % ophthalmic solution Use 1 Drop in both eyes daily at bedtime. REVIEW OF SYSTEMS: GENERAL: Negative for: Weight loss or gain, Fever or Chills, Weakness and Sleep difficulties. HEENT: Negative for: Headache, Impaired Vision, Glasses, Hearing Impairment, Ringing in Ears, Nosebleeds, Poor dental care, Bleeding Gums, Dentures NECK: Negative for: Swelling, Pain, Stiffness RESPIRATORY: Negative for: Cough, Blood in Sputum, Shortness of breath, Wheezing, Apnea GASTROINTESTINAL: Negative for: Trouble swallowing, Heartburn, Change in bowel habits, Blood in stool, Dark black stools MUSCULOSKELETAL: Negative for: Muscle or joint pain, Stiffness , Joint swelling NEUROLOGIC/PSYCHIATRIC: Negative for: Weakness, Paralysis, Numbness, Tingling, Tremor, Nervousness,Depressed mood, Memory loss SKIN: Negative for: Rashes, Itching HEMATOLOGICAL/LYMPHATIC: Negative for: Easy bruising , Easy bleeding ENDOCRINE: Negative for: Heat or cold intolerance, Excessive sweating, Frequent urination, Frequentthirst PHYSICAL EXAMINATION: There were no vitals taken for this visit. General: Well appearing, in no acute distress. Skin: No clubbing, no cyanosis. Eyes: Extra ocular movements intact Oropharynx: Teeth in good repair. Neck: No jugular venous distention, no carotid bruits, carotids have a normal upstroke, no palpablethyromegaly. Lungs: Clear to auscultation bilaterally, no wheezing or rhonchi. Heart: Regular rhythm, PMI not displaced, S1, S2 normal, no S3, no S4, no heaves, no rub and no murmur. Abdomen: Soft, nontender, bowel sounds normal, no palpable organomegaly, no bruits. Extremities: No peripheral edema . Grade 2/4 distal pulses bilaterally. Neuro: Oriented to person, place and time, alert, cooperative, gait coordinated. CARDIOVASCULAR MEDICINE TESTING: Last ECHO Result Conclusion ECHO Collected: 02/09/2024 12:54 PM (Final result) Impression: CONCLUSIONS: - Technically difficult exam due to suboptimal positioning. - Exam indication: s/p TAVR - The left ventricle is normal in size. Left ventricular systolic function is normal. EF = 65 5% (visual est.) - The right ventricle is normal in size. Right ventricular systolic function is normal. - There is moderate (2+) tricuspid valve regurgitation. - S/P transcatheter aortic valve replacement. Balderas S3 Ultra prosthetic aortic valve (size #23). There is trace aortic valve regurgitation. The peak gradient is 17 mmHg, the mean gradient is 8 mmHg and the dimensionless valve index is 0.56. Prior OR peak and mean gradient of 12/6 mmHg. - Exam was compared with the prior echocardiographic exam performed on 11/19/2023 and 02/09/2024 (OR Echo). Now s/p TAVR. * * * Final * * * Last EKG Result Conclusion ECG COMPLETE Collected: 02/10/2024 11:28 AM (Final result) Impression: VENTRICULAR-PACED RHYTHM ABNORMAL ECG Confirmed by GRECIA SYED MD ([id number]) on 02/11/2024 8:55:[address] Result Conclusion CTA CHEST/ABD/PEL (GATED) W IVCON Exam End: 12/24/2023 3:32 PM (Final result) Impression: IMPRESSION: Normal Thoracic and Abdominal Aortic Anatomy. Annulus Anatomy as described above. Customer Engagement Specialist: JEFF Transcribe Date/Time: Dec 24 2023 3:56P Dictated by : ARUN VILCHIS MD This examination was interpreted and the report reviewed and electronically signed by: ARUN VILCHIS MD on Dec 24 2023 4:13PM EST Last MRI Result Conclusion MRI CARDIAC VELOCITY FLOW MAP Exam End: 03/24/2023 11:11 AM (Final result) Impression: IMPRESSION: - This study is limited by artifact from implantable cardiac device and indwelling leads, though adequate for interpretation. 1. No pericardial effusion or thickening. Trivial pericardial delayed enhancement, further mildly improved since last MRI. No pericardial edema and no evidence of constrictive physiology. 2. The left ventricular function is normal (55%) and size is normal (end-diastolic volume index 60 mL/m ). Again seen is subtle mid-myocardial delayed gadolinium enhancement in the basal lateral wall, which is a non-ischemic finding. 3. The right ventricle is normal in size (end-diastolic volume index 72 mL/m ) and function (50% ejection fraction). 4. Aortic valve is moderately thickened (+/-calcified) with flow acceleration across valve indicating degree of stenosis (peak velocity 2.3 m/s underestimated) - correlate with echo findings. Mild mitral thickening and regurgitaiton. - Exam was compared with the prior CC cardiac MR exam performed on 05/30/2022, further mild improvement of pericrdial enhancement otherwise similar findings. * * * Final * * * RP Customer Engagement Specialist: GUS Transcribe Date/Time: Mar 24 2023 9:59A Dictated by : YOAV ADLER MD This examination was interpreted and the report reviewed and electronically signed by: YOAV ADLER MD on Mar 24 2023 3:03PM EST IMPRESSION: Ms. Angulo is a 84 year old female with a history of aortic stenosis, SSS s/p PPM, paroxysmal atrial fibrillation, hypertension, CKD, DM2, and pericarditis with pericardial effusion who presents today for follow up visit. She was last seen by dr. Hoffman 05/14/2023 and Echo showing with stable gradients, then seen by GREGOR 11/19/2023 and referred for TAVR workup. Patient underwent Successful TF TAVR via 14 Fr R OFFICE SECRETARY with a 23 mm Zora 3 Ultra at -1 cc ECHO post procedure: CONCLUSIONS: - Technically difficult exam due to suboptimal positioning. - Exam indication: s/p TAVR - The left ventricle is normal in size. Left ventricular systolic function is normal. EF = 65 5% (visual est.) - The right ventricle is normal in size. Right ventricular systolic function is normal. - There is moderate (2+) tricuspid valve regurgitation. - S/P transcatheter aortic valve replacement. Baldersa S3 Ultra prosthetic aortic valve (size #23). There is trace aortic valve regurgitation. The peak gradient is 17 mmHg, the mean gradient is 8 mmHgand the dimensionless valve index is 0.56. Prior OR peak and mean gradient of 12/6 mmHg. - Exam was compared with the prior CC echocardiographic exam performed on 11/19/2023 and 02/09/2024 (OR Echo). Now s/p TAVR. Today in clinic she is doing well. She is normotensive and euvolemic in clinic today. TAVR site healing well. PLAN AND RECOMMENDATIONS: Labs and ECG today Follow with preventative and clinical cards as scheduled I personally interviewed, confirmed and edited the above information if obtained by others. CONTACT INFORMATION: Lynette Ervin APRN.CNP documented in this encounter[facility] [place] NoteDUAL LEAD PACEMAKERS REMOTE EVALUATION: Alert for AF, Recently had TAVR 02/09/24. Scheduled follow up AF remote for next week. BPaulinRN NOTE TO PROVIDERS: CARD Flowsheets contain detailed device programming and testing data. Paceart/Interrogation PDF can be found under CARDIAC DATA AND REPORT, Scanned Documents section.[id number] NoteDUAL LEAD PACEMAKER EVALUATION: LOCATION: J33 PROGRAMMING CHANGES MADE TODAY: Programmed Rate Response back ON. Programmed the RV output based on today's capture testing results. BATTERY STATUS: Normal and shows no significant depletion. 8 years remaining until TORI. UNDERLYING RHYTHM: AT with controlled ventricular rates. AT began at 11:41 am. Total time 6.3%. Patient on Eliquis per Epic. The bedside nurse made aware. COUNTERS SINCE: 02/09/24 VENTRICULAR ARRHYTHMIAS: None LEAD MEASUREMENTS: RV capture, sensing, and lead impedance tested WNL today. FOLLOW UP: Remotes every 13 weeks and yearly in clinic visits. Xiao Martinez RN NOTE TO PROVIDERS: CARD Flowsheets contain detailed device programming and testing data. Paceart/Interrogation PDF can be found under CARDIAC DATA AND REPORT, Scanned Documents section.[id number] NoteDUAL LEAD PACEMAKER EVALUATION: LOCATION: OR 81 PROGRAMMING CHANGES MADE TODAY: Programmed device from AAIR-DDDR 55 to AAI-DDD 55. BATTERY STATUS: Normal and shows no significant depletion. UNDERLYING RHYTHM: SB 47 bpm. COUNTERS SINCE: 01/14/24 ATRIAL ARRHYTHMIAS: None VENTRICULAR ARRHYTHMIAS: None LEAD MEASUREMENTS: Sensing and Lead impedance was WNL today. FOLLOW UP: Please call [phone] following the procedure to have the device programmed back to AAIR-DDDR 55. Xiao Martinez RN NOTE TO PROVIDERS: CARD Flowsheets contain detailed device programming and testing data. Paceart/Interrogation PDF can be found under CARDIAC DATA AND REPORT, Scanned Documents section.[id number] History of Present illness Narrative* Precious Ch APRN.BIG DATA LEAD - 02/05/2024 2:00 PM EDT Images from the original note were not included. [facility] [place] [facility] Department of Cardiovascular Medicine SECTION OF INTERVENTIONAL CARDIOLOGY OUTPATIENT VISIT DATE February 05, 2024 OUTPATIENT VISIT TYPE ESTABLISHED FOLLOW UP Primary [place]: Dr. Shetty Chief Complaint: Patient here for cardiac follow up evaluation History of Present Illness: Patient is a 84 year old female who presents for follow up visit today. She was last seen by Dr. Wheeler on 12/24/2023. She also had a f/u visit with HF on 01/20/2024. Per the OPD note: States she was told to hold her eliquis prior to cath in November. She says she was not told when to restart. She reports that she has been taking only 5 mg once a day. She states that she has been feeling exhausted and short of breath. Since last vist the patient has not had any emergency room visits or hospitalizations. She had an appointment with urology on Friday, cleared from a UTI standpoint. She met with Dr. Suazo earlier today. Denies: chest pain and lightheadedness CARDIOVASCULAR MEDICINE TESTING: Electrocardiogram: A-paced Vent. rate 65 BPM [place] interval 318 ms QRS duration 176 ms QT/QTcB 444/461 ms P-R-T axes * -58 128 Chest X-ray: completed; report pending at time of visit; image reviewed. Laboratory Testing: Latest Ref Rng 02/05/2024 WBC 3.70 - 11.00 k/uL 4.88 RBC 3.90 - 5.20 m/uL 3.83 (L) Hemoglobin 11.5 - 15.5 g/dL 12.3 Hematocrit 36.0 - 46.0 % 38.3 MCV 80.0 - 100.0 fL 100.0 MCH 26.0 - 34.0 pg 32.1 MCHC 30.5 - 36.0 g/dL 32.1 RDW-CV 11.5 - 15.0 % 13.1 Platelet Count 150 - 400 k/uL 209 MPV 9.0 - 12.7 fL 9.9 Neut% % 59.4 Abs Neut (ANC) 1.45 - 7.50 k/uL 2.90 Lymph% % 26.6 Abs Lymph 1.00 - 4.00 k/uL 1.30 Travis% % 10.7 Abs Travis <0.87 k/uL 0.52 Eosin% % 2.7 Abs Eosin <0.46 k/uL 0.13 Baso% % 0.2 Abs Baso <0.11 k/uL <0.03 Immature Gran % % 0.4 IMMATURE GRANS (ABS) <0.10 k/uL <0.03 NRBC /100 WBC 0.0 Absolute nRBC <0.01 k/uL <0.01 DTYPE Auto Protein, Total 6.3 - 8.0 g/dL 7.2 Albumin 3.9 - 4.9 g/dL 4.4 Calcium 8.5 - 10.2 mg/dL 10.4 (H) Bilirubin, Total 0.2 - 1.3 mg/dL 0.7 Alkaline Phosphatase 34 - 123 U/L 105 AST 13 - 35 U/L 21 ALT 7 - 38 U/L 19 Glucose 74 - 99 mg/dL 146 (H) BUN 7 - 21 mg/dL 45 (H) Creatinine 0.58 - 0.96 mg/dL 1.56 (H) Sodium 136 - 144 mmol/L 138 Potassium 3.7 - 5.1 mmol/L 4.8 Chloride 97 - 105 mmol/L 105 CO2 22 - 30 mmol/L 23 Anion Gap 9 - 18 mmol/L 10 eGFR >=60 mL/min/1.73m 33 (L) PT Sec 9.7 - 13.0 sec 11.3 PT INR 0.9 - 1.3 1.1 NT Pro BNP <450 pg/mL 423 Legend: (L) Low (H) High REVIEW OF SYSTEMS: HEENT: Denies recent severe headaches, visual changes, difficulty swallowing. + glasses GASTROINTESTINAL: Denies melena, hematochezia, heartburn. GENITOURINARY: Denies hematuria or dysuria. + recent UTI, cleared. MUSCULOSKELETAL: Denies claudication or muscle myalgias. NEUROLOGIC: Denies unilateral paralysis, slurred speech. + numbness in hands ( intermittent), but last week it was worse. SKIN: Denies skin ulcers or lesions. HEMATOLOGICAL: Denies gingival bleeding, or prolonged epistaxis. ENDOCRINE:Denies heat or cold intolerance, excessive thirst or urination. All Other Remaining ROS negative. PHYSICAL EXAM: BP 142/81 Pulse 70 Ht 157.5 cm (5' 2.01) Wt 87.5 kg (193 lb) SpO2 96% BMI 35.29 kg/m General: overweight, in wheelchair, accompanied by family Neck : Neck veins are not distended Cardiac: Rhythm: regular rate and rhythm, Rate: normal, Murmur 1:3/6, systolic, harsh, LSB, radiates to diffuse, S1: normal intensity, S2: normal intensity Chest: Chest clear to percussion and auscultation Abdomen: Normal, Obesity, Bowel Sounds: Present Extremities: edema present bilaterally: 2+ Pulses: posterior tibial pulses present both Skin: No clubbing, no cyanosis. Neuro: Oriented to person, place and time, alert, cooperative, gait coordinated. HISTORY Lynette Angulo is an 84 year old female with pmhx of: VHD (Aortic Stenosis) SSS s/p PPM 2018 pAF ( Eliquis) HTN HLD CKD hx of pericarditis with pericardial effusion DM II ( Amaryl) thyroid cancer recurrent UTI's ASSESSMENT: Lynette Angulo has severe, aortic valve stenosis with symptoms of shortness of breath on exertion, leg edema and dizziness. VHD, NYHA FC III. Beta Ricarda: Carvedilol Dental clearance: scanned Surgeon noted completed: DR. Fowler 12/25r PPM: last check was done on 12/24/2023 and 02/05/2024 Anticoagulation: Eliquis- stop 48 hours PRIOR to the procedure ( none on Friday/Friday) Contrast Allergy: Yes, instructions provided KCCQ-12: 12/25 15 Ft W: 12/25 IMPRESSION/PLAN: Lynette Angulo is scheduled for TF- TAVR on Thursday 02/[address] Somers Instructed to go to Desk J1-1 REGISTRATION TODAY. Report to Desk J1-2 at 7:30 Am on Friday02/09/2024. Instructions: The Evening Before Procedure. Nothing to eat or drink after midnight starting on FRIDAY Bathe or take a shower. Use the antibacterial soap. Hibiclens as provided. Mouth care: After brushing your teeth, gargle with the Listerine Provided. 4. START your Prednisone at 7 PM on Friday: Take the SECOND dose of Prednisone at 1 AM; Instructions: The Morning of your Procedure. Okay for to take the following medications with sips of water in AM: Amlodipine, Aspirin, Carvedilol, Doxazosin, Levothyroxine, Protonix, Gemtesa, Kerendia Candy/mints and tobacco products are NOT permitted the morning of surgery. Bathe or take a shower. Use the antibacterial soap. Hibiclens as provided. Mouth care: After brushing your teeth, gargle with the Listerine Provided. Bring your Prednisone and Benadryl with you to the hospital. Additional information for the DAY OF SURGERY: - Hearing aides, glasses and dentures may be worn on the morning of surgery. - Wear your hair loosely. Do not use clips, pins or bands that bind your hair. Do not use hair spray. If you wear a wig or hairpiece, you will remove it before surgery. We will give you a head cover before you go into surgery. - No make-up or nail micronesian. If you have nail tips/wraps/gels, you will need to remove them from atleast one finger on each hand. This lets us keep track of your oxygen level during surgery. - No jewelry, including wathces, wedding rings and any body jewelry. Questions about preparing for your procedure? Call your doctors office: Dr. Herbie Willis [phone] Dr. Sheba Somers [phone] Dr. Vasquez Kwong [phone] Dr. Prince Alonzo [phone] Activity Restrictions post procedure. Do not strain during bowel movements for 3 to 4 days after the procedure. This helps prevent bleeding from the catheter-insertion site. Do not lift anything that weighs more than 10 pounds or push or pull heavy objects for the first 10to 14 days after the procedure. Do not do any strenuous activities for 5 days after the procedure. This includes most sports, such as jogging, golfing, playing tennis and bowling. You may climb stairs if needed, but walk up and down the stairs more slowly than usual. Gradually increase your activity level during the week after the procedure, when you should be backto your normal routine. Do not have sexual intercourse. Ask your doctor when it is safe to resume sexual activity. Do not drive until you get the OK from your doctor. Ask your doctor at your follow-up visit about taking part in Stage II cardiac rehabilitation. Interventional Discharge Readiness Tool Your Anticipated Discharge Needs: Same Day (Home if live in distance less than 2 hours. If greater than 2 hours exception would be tolocal hotel) - Evening after 5PM -Must have an adult (persons >18 years old) with you overnight -Follow up in OPD the next day Next Day -Transportation/ride by 9 AM - Recommended that you have an adult (persons >18 years old) with you overnight -Follow up in OPD with in 1 week Patient/Family/Caregiver needs or concerns for discharge planning: _Husband will be with her. Friends are driving. Cardiac Rehab is a supervised program designed for patients who have certain heart procedures. You will receive a referral prior to discharge so that you can start the outpatient cardiac rehab program 2-3 weeks after you leave the hospital. Cardiac rehab will help you get stronger so you can returnto your routine activities, teach you about lifestyle changes, and nutrition by education and exercise. Completing your cardiac rehab program can greatly help your recovery and greatly reduce your risk of future heart problems. For [facility] [place] [facility] Re[facility] call [phone] to schedule after you are home from your procedure. If you do not receive your referral, please call your fire alarm operator's office for the order. I spent a total of 45 minutes on the date of the service which included preparing to see the patient, [id number] patient care, completing clinical documentation, obtaining and/or reviewing separately obtained history, performing a medically appropriate examination, ordering medications, tests, or procedures, and independently interpreting results (not separately reported). Precious Ch APRN.TASHIA documented in this encounterSelect [facility] [place]05-[facility] Instructions* Patient Instructions* Precious Ch APRN.CNS - 02/05/2024 1:27 PM EDT Instructed to go to Desk J1-1 REGISTRATION TODAY. Report to Desk J1-2 at 7:30 Am on Friday02/09/2024. Eliquis- stop 48 hours PRIOR to the procedure ( none on Friday/Friday) Instructions: The Evening Before Procedure. Nothing to eat or drink after midnight starting on FRIDAY Bathe or take a shower. Use the antibacterial soap. Hibiclens as provided. Mouth care: After brushing your teeth, gargle with the Listerine Provided. 4. START your Prednisone at 7 PM on Friday: Take the SECOND dose of Prednisone at 1 AM; Instructions: The Morning of your Procedure. Okay for to take the following medications with sips of water in AM: Amlodipine, Aspirin, Carvedilol, Doxazosin, Levothyroxine, Protonix, Gemtesa, Kerendia Candy/mints and tobacco products are NOT permitted the morning of surgery. Bathe or take a shower. Use the antibacterial soap. Hibiclens as provided. Mouth care: After brushing your teeth, gargle with the Listerine Provided. Bring your Prednisone and Benadryl with you to the hospital. Additional information for the DAY OF SURGERY: - Hearing aides, glasses and dentures may be worn on the morning of surgery. - Wear your hair loosely. Do not use clips, pins or bands that bind your hair. Do not use hair spray. If you wear a wig or hairpiece, you will remove it before surgery. We will give you a head cover before you go into surgery. - No make-up or nail micronesian. If you have nail tips/wraps/gels, you will need to remove them from atleast one finger on each hand. This lets us keep track of your oxygen level during surgery. - No jewelry, including wathces, wedding rings and any body jewelry. Questions about preparing for your procedure? Call your doctors office: Dr. Herbie Willis [phone] Dr. Sheba Somers [phone] Dr. Vasquez Kwong [phone] Dr. Prince Alonzo [phone] Activity Restrictions post procedure. Do not strain during bowel movements for 3 to 4 days after the procedure. This helps prevent bleeding from the catheter-insertion site. Do not lift anything that weighs more than 10 pounds or push or pull heavy objects for the first 10to 14 days after the procedure. Do not do any strenuous activities for 5 days after the procedure. This includes most sports, such as jogging, golfing, playing tennis and bowling. You may climb stairs if needed, but walk up and down the stairs more slowly than usual. Gradually increase your activity level during the week after the procedure, when you should be backto your normal routine. Do not have sexual intercourse. Ask your doctor when it is safe to resume sexual activity. Do not drive until you get the OK from your doctor. Ask your doctor at your follow-up visit about taking part in Stage II cardiac rehabilitation. Interventional Discharge Readiness Tool Your Anticipated Discharge Needs: Same Day (Home if live in distance less than 2 hours. If greater than 2 hours exception would be tolocal hotel) - Evening after 5PM -Must have an adult (persons >18 years old) with you overnight -Follow up in [facility]PD the next day Next Day -Transportation/ride by 9 AM - Recommended that you have an adult (persons >18 years old) with you overnight -Follow up in OPD with in 1 week Patient/Family/Caregiver needs or concerns for discharge planning: Cardiac Rehab is a supervised program designed for patients who have certain heart procedures. You will receive a referral prior to discharge so that you can start the outpatient cardiac rehab program 2-3 weeks after you leave the hospital. Cardiac rehab will help you get stronger so you can returnto your routine activities, teach you about lifestyle changes, and nutrition by education and exercise. Completing your cardiac rehab program can greatly help your recovery and greatly reduce your risk of future heart problems. For [facility] [place] Card[facility] Rehab call [phone] to schedule after you are home from your procedure. If you do not receive your referral, please call your fire alarm operator's office for the order. Precious documented in this encounterSelect [facility] [place] History of Present illness Narrative* Heaven-Ann Whiting MD - 02/05/2024 11:39 AM EDT Cardiothoracic Anesthesiology Preoperative Assessment Service Date: 02/05/2024 Service Time: 11:39 AM Primary Care Physician: Jorge Benavides MD Subjective Patient Entered Data: Pt presents for preoperative evaluation prior to TAVR. Pertinent History Afib/flutter CKD 4 DM2 CAD (no stents) SSS s/p PPM Severe Labs K 4.8 Cr 1.56 LFTs WNL Hb 12.3 Plt 209 INR 1.1 ECHO - Exam indication: Pericardial conditions - The left ventricle is normal in size. There is moderate concentric left ventricular hypertrophy. Left ventricular systolic function is normal. EF = 57 5% (2D biplane) - The right ventricle is normal in size. Right ventricular systolic function is normal. - Tricuspid aortic valve. There is moderate aortic valve stenosis caused by calcified valve and restricted opening. AV area is 1.03 cm (0.55 cm /m ) by continuity, VTI. The peak gradient is 31 mmHg, the mean gradient is 19 mmHg and the dimensionless valve index is 0.31. Prior AV peak/mean gradients were 40/22 mmHg. - No evidence of constrictive physiology. - Exam was compared with the prior CC echocardiographic exam performed on [facility] Coronary Anatomy: Right Dominant Injection Site(s): Left Main Coronary Artery and Right Coronary Artery LMT: _ The LMT is normal. Additional Comment: LMT bifurcates into the LAD and LCx and is angiographically normal. LAD: _ The mid LAD is narrowed 40 % - focal disease. _ The 2nd diagonal is narrowed 60 % - focal disease. Additional Comment: Large caliber vessel that gives a large high branching D1 and a large branching D2. There is a moderate lesion in the mid LAD just after D2 and a 60-70% lesion at the ostium of D2 and an additional 60% lesion at the ostium of the inferior subdivision of D2. LCX: _ The 1st obtuse marginal circumflex is narrowed 50 % - focal disease. Additional Comment: Large caliber LCx that gives a large branching OM1. There is moderate disease in the proximal portion of OM1. RAMUS: _ Ramus Status: Not Applicable. RCA: _ The proximal RCA is narrowed 60 % - focal disease. Additional Comment: Large caliber dominant vessel that gives a PDA and branching PL system. There is a ~60-70% ostial stenosis in the RCA, without pressure damping on engagement. Patient denies dysphagia/esophageal pathology. Consents to blood transfusion Patient instructed to: - Follow surgical instruction regarding warfarin/ASA therapy - Continue: synthroid, coreg, pantoprazole - Hold: eliquis (3 days, unless instructed otherwise by cardiology team), olmesartan (day prior) COVID-19 Immunization Status Overdue - Covid-19 Vaccine () Overdue since 05/30/2023 06/20/2022 Imm Admin: COVID-19 vaccine, age 12+ yr, bivalent ([email or web address]) 02/11/2022 Imm Admin: COVID-19 original vaccine, full dose, monovalent (MODERNA) 06/22/2021 Imm Admin: COVID-19 original vaccine, full dose, monovalent (MODERNA) Only the first 3 history entries have been loaded, but more history exists. 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 Chronic Kidney Disease, Without Long-Term Current Use of Insulin (Hcc) Sss (Sick Sinus Syndrome) (Hcc) Typhoid Fever Acute Idiopathic Pericarditis Chronic Pericarditis Primary Hypertension Obesity, Class II, Bmi 35-39.9 Nonrheumatic Aortic Valve Stenosis Stenosis of Left Renal Artery (Hcc) Heart Failure, Unspecified Hf Chronicity, Unspecified Heart Failure Type (Hcc) Stage 4 Chronic Kidney Disease (Hcc) Cardiac Pacemaker History of Pericarditis On Apixaban Therapy Obesity, Class I, Bmi 30-34.9 PAST MEDICAL HISTORY Diagnosis Date Anemia Aortic stenosis Atrial fibrillation (HCC) Atrial flutter (HCC) Bradycardia Cancer (HCC) thyroid Chronic kidney disease Diabetes (HCC) Gout Heart attack (HCC) HLD (hyperlipidemia) Hypertension Pericardial effusion Recurrent UTI Sleep apnea CPAP SSS (sick sinus syndrome) (HCC) Thyroid disease PAST SURGICAL HISTORY Procedure Laterality Date APPENDECTOMY HX CATARACT SURGERY, COMPLEX HYSTERECTOMY HX PPM DUAL 2018 THYROIDECTOMY TOTAL/COMPLETE Parathyroid removal TOTAL KNEE REPLACEMENT Left x2- one revision FAMILY HISTORY Problem Relation Age of Onset Uterine Cancer Mother Hypertension Father Lung Cancer Father other (Vascular) Son Hypertension Son Social History Tobacco Use Smoking status: Never Smokeless tobacco: Never Vaping Use Vaping Use: Never used Substance Use Topics Alcohol use: No Drug use: Never Prior to Admission medications as of 02/05/24 0918 Medication Sig Last Dose Taking diphenhydrAMINE (BENADRYL) 50 mg capsule Take 1 capsule by mouth as directed for 1 dose. one (1) hour prior to exam. colchicine 0.6 mg tablet Take 1 tablet by mouth every other day. ammonium lactate (LAC-HYDRIN) 12 % lotion cephALEXin (KEFLEX) 250 mg capsule Take 1 capsule by mouth daily at bedtime. clindamycin (CLEOCIN) 150 mg capsule as directed. diphenhydrAMINE (BENADRYL) 50 mg capsule Take 1 capsule by mouth as directed for 1 dose. one (1) hour prior to exam. amLODIPine (NORVASC) 10 mg tablet Take 1 tablet by mouth once daily. diphenhydrAMINE (BENADRYL) 50 mg capsule Take 1 capsule by mouth as directed for 2 doses. one (1) hour prior to exam. olmesartan (BENICAR) 40 mg tablet Take 1 tablet by mouth once daily. apixaban (ELIQUIS) 5 mg tab(s) Take 1 tablet by mouth twice daily. finerenone (KERENDIA) 10 mg tablet q 24 HR. omega 0-wys-iec-fish oil 360 mg-108 mg- 180 mg-1,200 mg cap q 24 HR. glimepiride (AMARYL) 2 mg tablet Take 0.5 tablets by mouth daily with breakfast. aspirin 81 mg chewable tablet Take 1 tablet by mouth once daily. doxazosin (CARDURA) 4 mg tablet Take 1 tablet by mouth daily at bedtime. carvedilol (COREG) 25 mg tablet Take 1 tablet by mouth twice daily with meals. vibegron (GEMTESA) 75 mg tablet Take 1 tablet by mouth once daily. Cranberry 500 mg cap Take 1 capsule by mouth once daily. Ascorbic Acid 500 mg cpER Take by mouth once daily. cinnamon bark (CINNAMON ORAL) Take by mouth. Take 2,00mg daily. lovastatin (MEVACOR) 20 mg tablet Take 20 mg by mouth daily at bedtime. cholecalciferol (VITAMIN D3) 5,000 unit tab Take 5,000 Units by mouth once daily. pantoprazole DR (PROTONIX) 40 mg tablet TAKE 1 TABLET BY MOUTH ONCE DAILY AT 6 AM levothyroxine (SYNTHROID) 125 mcg tablet Take 125 mcg by mouth once daily. latanoprost (XALATAN) 0.005 % ophthalmic solution Use 1 Drop in both eyes daily at bedtime. Medication Comments documented by Chandni Starr RPh on 02/05/2023 at 1338. 02/05/23 The medications are managed by this patient by: PATIENT Chandni Germania Starr ALLERGIES Allergen Reactions Darvon [Propoxyphen* Shortness of Breath, Other: See Comments No strength, bad dreams Iodine Anaphylaxis 12/24/23- pt. premedicated with 13 hrs, had CT scan with IV contrast. Patient denied any s/s of SOB, difficulty breathing, wheezing, itching or rash. Lotensin [Benazepri* Vomiting, Other: See Comments Coughing Rivaroxaban Other: See Comments Developed pericardial effusion Shellfish Anaphylaxis Shellfish Containin* Anaphylaxis, Shortness of Breath Spironolactone Other: See Comments Weak, made calcium level high, heart rate 20BPM Adhesive Rash Amlodipine Swelling Celecoxib Other: See Comments Due to kidneys Demeral [Meperidine] Vomiting Hydrochlorothiazide Other: See Comments Metformin Other: See Comments Metoprolol Shortness of Breath Penicillins Hives Simvastatin Myalgia, Other: See Comments Sitagliptin Other: See Comments Objective Pain Assessment: Vitals: There were no vitals taken for this visit. Diagnostic tests reviewed for today's visit: Lab Value Units Date High Low HB 12.3 g/dL 02/05/2024 15.5 11.5 HCT 38.3 % 02/05/2024 46.0 36.0 WBC 4.88 k/uL 02/05/2024 11.00 3.70 PLT 209 k/uL 02/05/2024 400 150 NA 138 mmol/L 02/05/2024 144 136 K 4.8 mmol/L 02/05/2024 5.1 3.7 GLUC 146 mg/dL 02/05/2024 99 74 BUN 45 mg/dL 02/05/2024 21 7 CREAT 1.56 mg/dL 02/05/2024 0.96 0.58 CREAT 1.50 mg/dL 12/24/2023 1.4 0.7 PTSEC 11.3 sec 02/05/2024 13.0 9.7 INR 1.1 no uni* 02/05/2024 1.3 0.9 APTT No results within date range. ALT 19 U/L 02/05/2024 38 7 AST 21 U/L 02/05/2024 35 13 TBILI 0.7 mg/dL 02/05/2024 1.3 0.2 TSH No results within date range. Lab Value Units Date High Low HCGQT No results within date range. UHCG No results within date range. HCG, BODY* No results within date range. Lab Value Units Date High Low ABORHD No results within date range. ABSCREEN No results within date range. Hemoglobin A1C (%) Date Value 01/30/2023 6.4 01/09/2022 5.8 08/24/2020 6.2 10/04/2009 8.6 Recent Results (from the past 8760 hour(s)) ECG COMPLETE Collection Time: 02/05/24 8:17 AM Impression ATRIAL-PACED RHYTHM WITH PROLONGED AV CONDUCTION LEFT AXIS DEVIATION COMPLETE LEFT BUNDLE BRANCH BLOCK ABNORMAL ECG XR CHEST 2V FRONTAL/LAT Collection Time: 12/24/23 8:10 AM Impression IMPRESSION: See result Customer Engagement Specialist: JEFF Transcribe Date/Time: Dec 25 2023 4:45A Dictated by : SABRINA TOMAS MD This examination was interpreted and the report reviewed and electronically signed by: SABRINA TOMAS MD on Dec 25 2023 4:46AM EST ECHO Collection Time: 11/19/23 11:24 AM Impression CONCLUSIONS: - Exam indication: Pericardial conditions - The left ventricle is normal in size. There is moderate concentric left ventricular hypertrophy. Left ventricular systolic function is normal. EF = 57 5% (2D biplane) - The right ventricle is normal in size. Right ventricular systolic function is normal. - Tricuspid aortic valve. There is moderate aortic valve stenosis caused by calcified valve and restricted opening. AV area is 1.03 cm (0.55 cm /m ) by continuity, VTI. The peak gradient is 31 mmHg, the mean gradient is 19 mmHg and the dimensionless valve index is 0.31. Prior AV peak/mean gradients were 40/22 mmHg. - No evidence of constrictive physiology. - Exam was compared with the prior CC echocardiographic exam performed on 01/29/2023. Overall stable findings when compared to this immediate prior echo. * * * Final * * * Assessment No problem-specific Assessment & Plan notes found for this encounter. ANESTHESIA FINDINGS: Intubation History: No abnormal airway history Significant Anesthesia Considerations: Airway History: No abnormal airway history Prepared for Surgery: The Following Tests/Procedures Have Been Initiated: No orders of the defined types were placed in this encounter. ASA Class: 4 Planned Anesthetic: MAC I - PHYSICAL EVALUATION AIRWAY Patient intubated: No. Tracheostomy tube not present Mallampati: III. TM distance: <3 FB. Neck ROM: full ROM without neurological symptoms. Mouth opening: adequate. Short neck: yes. Thick neck: yes II - ANESTHESIA PLAN ASA Score: 4 Anesthetic Plan: MAC Anesthetic plan additional comments: MAC, possible GETA. Beta Ricarda Monitoring Plan Post Procedure Analgesic Plan Informed Consent Anesthetic risks, benefits, alternatives, personnel and consent discussed: yes. Patient / Responsible [employer] agrees to proceed: yes Patient / Surrogate agrees to blood products: Yes Instructions Given to Patient: Instructions located in the after visit summary. Patient given verbal and written preop instructions and voices comprehension and compliance. Signature: Ann Jacome MD Patient Name: Lynette Angulo Date: February 05, 2024 Time: 11:39 AM Pager/Contact #: documented in this encounter[facility] [place] History of Present illness Narrative* Natacha Fernando RT(R) - 02/05/2024 10:15 AM EDT Radiology Service Progress Note PATIENT NAME: Lynette Angulo DATE OF SERVICE: February 05, 2024 TIME: 8:40 AM PATIENT IDENTITY VERIFICATION COMPLETED USING TWO (2) IDENTIFIERS: Name and Date of confirmedby patient verbally. FALL SCREENING: Has the patient had 2 falls in the last year or 1 fall with injury or currently using an Ambulatory Assistive Device (Walker, Cane, Wheelchair, Crutches, etc.)? No PATIENT GENDER DATA: Female. status: : No status: NO. PATIENT RELEVANT IMPLANT DATA REVIEWED: Not Applicable PATIENT PRESENTS WITH AN IMPLANTABLE OR ATTACHED CLOTH DOFFER: No RADIOLOGY DEPARTMENT: General X-ray: Exam(s) Completed: Chest X-Ray PERIPHERAL IV DATA: Not applicable SIGNED BY: RT Maria Luisa(R) February 05, 2024 8:40 AM documented in this encounterSelect [facility] [place] History of Present illness Narrative* Xiao Suazo MD - 02/05/2024 8:30 AM EDT Images from the original note were not included. [facility] [place] [facility] Department of Cardiovascular Medicine SECTION OF CARDIAC PACING and ELECTROPHYSIOLOGY OUTPATIENT VISIT DATE February 05, 2024 OUTPATIENT VISIT TYPE ESTABLISHED PRIMARY CARE PHYSICIAN: Jorge Benavides [address] [place] [address] REFERRING PHYSICIAN: Jessica Echeverria [address] [facility] [address] NURSING INTAKE HISTORY: Ms. Angulo is a 84 year old female who presents today re AF. She has a history of chronic UTIs, hypothyroidism, diabetes, hyperlipidemia, hypertension, CKD, aortic stenosis, heart failure, sick sinus syndrome s/p dual chamber pacemaker 2018, and atrial fibrillation. She is established with Dr Gregory, last seen in office November 2023 with Elena Durant. She is scheduled for TAVR next week. CHADS2-Vasc Score Breakdown 7 Total Score 1 Female 2 Age >= 75 years old 1 History of CHF 1 History of hypertension 1 History of diabetes mellitus 1 History of vascular disease PAST MEDICAL HISTORY Diagnosis Date Anemia Aortic stenosis Atrial fibrillation (HCC) Atrial flutter (HCC) Bradycardia Cancer (HCC) thyroid Chronic kidney disease Diabetes (HCC) Gout Heart attack (HCC) HLD (hyperlipidemia) Hypertension Pericardial effusion Recurrent UTI Sleep apnea CPAP SSS (sick sinus syndrome) (HCC) Thyroid disease PAST SURGICAL HISTORY Procedure Laterality Date APPENDECTOMY HX CATARACT SURGERY, COMPLEX HYSTERECTOMY HX PPM DUAL 2018 THYROIDECTOMY TOTAL/COMPLETE Parathyroid removal TOTAL KNEE REPLACEMENT Left x2- one revision SOCIAL HISTORY Social History Tobacco Use Smoking status: Never Smokeless tobacco: Never Vaping Use Vaping Use: Never used Substance Use Topics Alcohol use: No Drug use: Never FAMILY HISTORY Problem Relation Age of Onset Uterine Cancer Mother Hypertension Father Lung Cancer Father other (Vascular) Son Hypertension Son ALLERGIES: ALLERGIES Allergen Reactions Darvon [Propoxyphen* Shortness of Breath, Other: See Comments No strength, bad dreams Iodine Anaphylaxis 12/24/23- pt. premedicated with 13 hrs, had CT scan with IV contrast. Patient denied any s/s of SOB, difficulty breathing, wheezing, itching or rash. Lotensin [Benazepri* Vomiting, Other: See Comments Coughing Rivaroxaban Other: See Comments Developed pericardial effusion Shellfish Anaphylaxis Shellfish Containin* Anaphylaxis, Shortness of Breath Spironolactone Other: See Comments Weak, made calcium level high, heart rate 20BPM Adhesive Rash Amlodipine Swelling Celecoxib Other: See Comments Due to kidneys Demeral [Meperidine] Vomiting Hydrochlorothiazide Other: See Comments Metformin Other: See Comments Metoprolol Shortness of Breath Penicillins Hives Simvastatin Myalgia, Other: See Comments Sitagliptin Other: See Comments MEDICATIONS: diphenhydrAMINE (BENADRYL) 50 mg capsule^Take 1 capsule by mouth as directed for 1 dose. one (1) hour prior to exam.^Disp: 1 capsule^Rfl: 0 colchicine 0.6 mg tablet^Take 1 tablet by mouth every other day.^Disp: 45 tablet^Rfl: 3 ammonium lactate (LAC-HYDRIN) 12 % lotion^^Disp: ^Rfl: cephALEXin (KEFLEX) 250 mg capsule^Take 1 capsule by mouth daily at bedtime.^Disp: ^Rfl: clindamycin (CLEOCIN) 150 mg capsule^as directed.^Disp: ^Rfl: diphenhydrAMINE (BENADRYL) 50 mg capsule^Take 1 capsule by mouth as directed for 1 dose. one (1) hour prior to exam.^Disp: 1 capsule^Rfl: 0 amLODIPine (NORVASC) 10 mg tablet^Take 1 tablet by mouth once daily.^Disp: 30 tablet^Rfl: 3 diphenhydrAMINE (BENADRYL) 50 mg capsule^Take 1 capsule by mouth as directed for 2 doses. one (1) hour prior to exam.^Disp: 1 capsule^Rfl: 0 olmesartan (BENICAR) 40 mg tablet^Take 1 tablet by mouth once daily.^Disp: 90 tablet^Rfl: 3 apixaban (ELIQUIS) 5 mg tab(s)^Take 1 tablet by mouth twice daily.^Disp: 60 tablet^Rfl: 5 finerenone (KERENDIA) 10 mg tablet^q 24 HR.^Disp: ^Rfl: omega 0-hpq-iqf-fish oil 360 mg-108 mg- 180 mg-1,200 mg cap^q 24 HR.^Disp: ^Rfl: glimepiride (AMARYL) 2 mg tablet^Take 0.5 tablets by mouth daily with breakfast.^Disp: 30 tablet^Rfl: 1 vibegron (GEMTESA) 75 mg tablet^Take 1 tablet by mouth once daily.^Disp: ^Rfl: Cranberry 500 mg cap^Take 1 capsule by mouth once daily.^Disp: ^Rfl: Ascorbic Acid 500 mg cpER^Take by mouth once daily.^Disp: ^Rfl: 3 cinnamon bark (CINNAMON ORAL)^Take by mouth. Take 2,00mg daily.^Disp: ^Rfl: lovastatin (MEVACOR) 20 mg tablet^Take 20 mg by mouth daily at bedtime.^Disp: ^Rfl: cholecalciferol (VITAMIN D3) 5,000 unit tab^Take 5,000 Units by mouth once daily.^Disp: ^Rfl: pantoprazole DR (PROTONIX) 40 mg tablet^TAKE 1 TABLET BY MOUTH ONCE DAILY AT 6 AM^Disp: 90 tablet^Rfl: 0 levothyroxine (SYNTHROID) 125 mcg tablet^Take 125 mcg by mouth once daily.^Disp: ^Rfl: latanoprost (XALATAN) 0.005 % ophthalmic solution^Use 1 Drop in both eyes daily at bedtime.^Disp: ^Rfl: aspirin 81 mg chewable tablet^Take 1 tablet by mouth once daily.^Disp: 30 tablet^Rfl: 1 doxazosin (CARDURA) 4 mg tablet^Take 1 tablet by mouth daily at bedtime.^Disp: 30 tablet^Rfl: 1 carvedilol (COREG) 25 mg tablet^Take 1 tablet by mouth twice daily with meals.^Disp: 60 tablet^Rfl:1 Elena Bernstein RN PHYSICAL EXAMINATION: BP 130/60 Pulse 65 Ht 157.5 cm (5' 2) Wt 88.5 kg (195 lb) BMI 35.67 kg/m EP Staff Addendum: I agree with the above device interrogation report. EP STAFF NOTE: Please note: This note has been produced using speech recognition software and may contain errors related to that system including grammar, punctuation, spelling, gender and words and phrases that may be inappropriate I have reviewed the above information and examined the patient and confirm the above with the following additions/modifications. ECG: PE: Vitals: BP 130/60 Pulse 65 Ht 157.5 cm (5' 2) Wt 88.5 kg (195 lb) BMI 35.67 kg/m [facility] In no acute distress. Skin: No clubbing. No cyanosis. Eyes: EOMI Oropharynx: No oral lesions. Neck: no JVD. Lungs: Unlabored Heart: RRR, KULDIP Abdomen: nontender Extremities: No peripheral edema bilaterally. Neuro: Oriented x3, alert, cooperative, gait coordinated. DEVICE CHECK: DUAL LEAD PACEMAKERS REMOTE EVALUATION 01/14/2024: PRESENTING EGM: AP/VS BATTERY STATUS: Estimated time remaining to TORI is 7.5 yrs COUNTERS SINCE: 12/26/23 ATRIAL ARRHYTHMIAS: There was 1 AF event began on 12/25/23 that lasted 2.8 days. AF burden 11.3%. PAF per graph. On Eliquis per Epic. VENTRICULAR ARRHYTHMIAS: There have been no ventricular detections. LEAD MEASUREMENTS: Sensing and auto capture trends are appropriate. Review of the lead impedance trends are normal. OTHER DIAGNOSTICS: RA pacing 88.8%. RV pacing 8.4%. FOLLOW UP: Continue 3 month remote transmissions and yearly in-clinic interrogations. Talisha White RN NOTE TO PROVIDERS: CARD Flowsheets contain detailed device programming and testing data. Paceart/Interrogation PDF can be found under CARDIAC DATA AND REPORT, Scanned Documents section. PROBLEM LIST: [place] pt chronic UTIs hypothyroidism diabetes hyperlipidemia hypertension CKD aortic stenosis sick sinus syndrome s/p dual chamber pacemaker 2018 PAF CHADS VASc 7 - on Eliquis LBBB NM Spect/CT Cardiac Amyloid 12/26/2023: CONCLUSIONS: 1. Not Consistent with TTR amyloidosis 2. No bone abnormalities. Cardiac Cath 12/25/2023: Impression: -R dominant system with a 60-70% ostial RCA lesion and a 60% ostial lesion in the second diagonal. -Moderate disease in the mid LAD and OM1. Recommended Treatment: Medical Therapy. Plan: -Will discuss case in multidisciplinary TAVR meeting; can consider PCI to the ostial RCA +/- D2 or bypass if pursuing surgical option -Medical therapy for CAD Echo 11/19/2023: CONCLUSIONS: - Exam indication: Pericardial conditions - The left ventricle is normal in size. There is moderate concentric left ventricular hypertrophy. Left ventricular systolic function is normal. EF = 57 5% (2D biplane) - The right ventricle is normal in size. Right ventricular systolic function is normal. - Tricuspid aortic valve. There is moderate aortic valve stenosis caused by calcified valve and restricted opening. AV area is 1.03 cm (0.55 cm /m ) by continuity, VTI. The peak gradient is 31 mmHg, the mean gradient is 19 mmHg and the dimensionless valve index is 0.31. Prior AV peak/mean gradients were 40/22 mmHg. - No evidence of constrictive physiology. - Exam was compared with the prior echocardiographic exam performed on 01/29/2023. Overall stable findings when compared to this immediate prior echo. Cardiac MRI 03/24/2023: IMPRESSION: - This study is limited by artifact from implantable cardiac device and indwelling leads, though adequate for interpretation. 1. No pericardial effusion or thickening. Trivial pericardial delayed enhancement, further mildly improved since last MRI. No pericardial edema and no evidence of constrictive physiology. 2. The left ventricular function is normal (55%) and size is normal (end-diastolic volume index 60 mL/m ). Again seen is subtle mid-myocardial delayed gadolinium enhancement in the basal lateral wall, which is a non-ischemic finding. 3. The right ventricle is normal in size (end-diastolic volume index 72 mL/m ) and function (50% ejection fraction). 4. Aortic valve is moderately thickened (+/-calcified) with flow acceleration across valve indicating degree of stenosis (peak velocity 2.3 m/s underestimated) - correlate with echo findings. Mild mitral thickening and regurgitaiton. - Exam was compared with the prior cardiac MR exam performed on 05/30/2022, further mild improvement of pericrdial enhancement otherwise similar findings. TTE : - The left ventricle is normal in size. There is moderate concentric left ventricular hypertrophy. Left ventricular systolic function is normal. EF = 57 5% (2D biplane) - The right ventricle is normal in size. Right ventricular systolic function is normal. - Tricuspid aortic valve. There is moderate aortic valve stenosis caused by calcified valve and restricted opening. AV area is 1.03 cm (0.55 cm /m ) by continuity, VTI. The peak gradient is 31 mmHg, the mean gradient is 19 mmHg and the dimensionless valve index is 0.31. Prior AV peak/mean gradients were 40/22 mmHg. - No evidence of constrictive physiology. - Exam was compared with the prior CC echocardiographic exam performed on 01/29/2023. Overall stable findings when compared to this immediate prior echo. IMPRESSION / PLAN: Complex 85 y/o followed in the EP clinic for SSS s/p PPM and PAF - asymptomatic. She is established with Dr Gregory, last seen in office November 2023 with Elena Durant. - She is scheduled for TAVR next week. PPM function is normal. PAF events are asymptomatic and rate controlled. no contra-indication to proceed with TAVR from EP standpoint - can hold Eliquis up to 2 days prior. Continue remotes q 3 months. Annual follow up - wishes to switch to [facility]. This note was created with electronic dictation and errors in syntax and meaning may have occurred. Xiao Suazo MD Pager: [phone] Office: [phone] I personally examined the patient and repeated the laurent components of the exam and cardiac history, past medical and surgical history, social and family history. The assessment and plan were formulated and discussed with the patient and family. I spent over 25 minutes (face time) and greater than 50% of this time was spent counseling and/or coordinating the care of the patient with regard the diagnosis and medical regimen Referring Physician: Jorge Benavides [address] [place] [id number] [facility] [id number] [facility] [id number] documented in this encounterSelect Medical [facility] [place] History of Present illness Narrative* Precious Ch APRN.CNS - 01/26/2024 1:51 PM EDT Images from the original note were not included. documented in this encounterSelect Medical [facility] [place]-23-2024 Note* Addendum Note - Jessica Echeverria APRN.CNP - 01/20/2024 4:40 PM EDTAddended by: JESSICA ECHEVERRIA on: 01/20/2024 04:40 PM Modules accepted: Orders [facility] [place]04-23-2024 Miscellaneous Notes* Addendum Note - Jessica Lucero APRN.CNP - 01/20/2024 4:40 PM EDTAddended by: JESSICA LUCERO on: 01/20/2024 04:40 PM Modules accepted: Orders documented in this encounterSelect Medical Cleveland [facility] [place]04-[facility]24 History of Present illness Narrative* Jessica Echeverria APRN.CNP - 01/20/2024 2:44 PM EDT I spoke with Lynette Angulo on the phone. Will proceed with the following: No fasting is needed on pre-op day. Stop taking anticoagulation: Eliquis instructed to hold for 24 hours prior last dose Krishnaswamy/Alba/Clinton: Hold DOAC 24 hours prior to procedure. If GFR <30, hold DOAC 48 hoursprior to procedure Elenita: Hold DOAC the night before Is patient taking GLP-1 agonist? No Yes/No. If Yes hold per protocol Is patient taking SGLT2 Inhibitors? No Yes/No. If Yes hold per protocol Dental clearance: She has form completed and will bring to pre op. Device check: last check was 01/14/2024 Contrast Allergy: Yes, A prescription has been sent to your pharmacy for Prednisone 50 mg and Benadryl 50 mg due to your allergy to contrast dye. Please take the Prednisone 50 mg at 13 hours, 7 hours, and 1 hour before your procedure and Benadryl 50 mg 1 hour before you procedure. Jessica Echeverria APRN.CNP [facility], Please schedule Lynette Angulo, [phone] for COMMERCIAL TF- TAVR S3 Procedure on: 02/09/2024 Lab/CXR/EKG Appointment: 02/06/2024 Please schedule HR AVR CLINIC/ Visit on: 02/06/2024 Date of J4-1 Anesthesia only: 02/06/[address] Structural lab schedule on : 02/09/2024 at 7:30 CPT Code: 30748 DX code: I35.0 OUTBOUND SALES EXECUTIVE: Dr. Wheeler Performing Physician: Dr. Somers OR: 81 Surgeon: Dr. Fowler Please schedule bed reservation for post procedure-(should be a TCI) ROBERT schedule- intra/op Patient also needs INSURANCE PRECERTIFICATION ADL SCORE 6__ SURVIVAL RATE GREATER THAN 1 YEAR____Y___(LOOKING FOR A YES) EF ___Y__(GREATER THAN 50%) KCCQ-12: 12/26/2023 15 Ft W: 12/26/2023 Thank you. Request sent to scheduling. Jessica Echeverria APRN.REFINERY PIPELINE OPERATOR documented in this encounterSelect Medical [facility] [place] NoteHNO ID: [id number] Author: MARIO MOSCOSO APRN.MOIZ Service: ? Author Type: Nurse Practitioner Type: Progress Notes Filed: 01/20/2024 12:39 Note Text: Heart and Vascular [facility] OUTPATIENT VISIT DATE January 20, 2024 OUTPATIENT VISIT TYPE ESTABLISHED PRIMARY CARE PHYSICIAN: Jorge Benavides MD CHIEF COMPLAINT: Patient presents with: Leg Edema Breathing Problem HISTORY OF PRESENT ILLNESS: Lynette Angulo is a 84 year old female who presents today for a follow-up visit in the Heart Failure Clinic. Patient has had 2 hospitalizations and/or emergency room encounters in the last 12 months. Most recent hospitalization was from 01/29 to 02/04 for hypertensive emergency. She reported dysuria during stay. UA/UC came back positive for E. coli. Bactrim was started prior to discharge and to be continued for 3 days total. Patient also underwent a device check for bradycardia and feelings of fatigue. Device check completed 01/31 with increase base rate to 55 bpm. Today, the patient reports feeling very short of breath. She is being worked up for TAVR. Shortness of breath is thought to be mostly related to aortic valve. Reports increase in weight due to lack of mobility as she has chronic knee pain. Has not been contacted about a schedule or procedure. Patient expresses stress with not knowing what to expect. Denies chest pain, dizziness, lightheadedness, fever, chills. Reports leg swelling. Trouble sleeping at night at times due to mind racing. Denies PND or orthopnea. Did trial coming off amlodipine at the beginning of the year which did reduce swelling significantly however, blood pressure started to increase. States she was told to hold her eliquis prior to cath in November. She says she was not told when to restart. She reports that she has been taking only 5 mg once a day. Tries to monitor her sodium and fluids as best as she can. Weighs a few times week. IMPRESSION: NYHA Functional Class: II Stage: C heart failure Cora Angulo is an 84 year-old female who presents to the Heart Failure Clinic for follow up. She appears minimally hypervolemic on examination. will have her take additional 5 mg kerendia for 3 days. She is to call the office on Friday if no improvement in weight or symptoms. Will reach out to cardiology downtown regarding eliquis dose and restart along with plan of care regarding TAVR. Continue to monitor sodium and fluids. Reviewed all medications with patient. Reviewed plan of care with patient. All questions answered at this time. PLAN AND RECOMMENDATIONS: 1. Heart failure, unspecified HF chronicity, unspecified heart failure type (HCC) - ICD9: 428.9, ICD10: I50.9 - daily weights, call office if weight increases 3-4 lbs in a 1-4 day period -2 gm low sodium diet -activity as tolerated, rest breaks as needed -continue coreg, olmesartan, kerendia -? Start SGLT2i -wishes to hold off -continue amlodipine -follow up to be scheduled pending upcoming surgery 2. Primary hypertension - ICD9: 401.9, ICD10: I10 (primary diagnosis) -BP suboptimal during visit 135/58 mmHg -encourage DASH/low sodium diet -encourage exercise with rest breaks as needed -goal BP <130/80 mmHg -continue home BP monitoring 3. Paroxysmal atrial fibrillation (HCC) - ICD9: 427.31, ICD10: I48.0 -CHADSVASc 6 (age, DM, HTN, HF, gender) -continue coreg for rate control -HR 53 bpm during office visit -unable to tolerate metoprolol -continue eliquis for stroke prophylaxis Follow up appointment with Dr. Shetty 04/13/2024 PAST MEDICAL HISTORY Diagnosis Date Anemia Aortic stenosis Atrial fibrillation (HCC) Atrial flutter (HCC) Bradycardia Cancer (HCC) thyroid Chronic kidney disease Diabetes (HCC) Gout Heart attack (HCC) HLD (hyperlipidemia) Hypertension Pericardial effusion Recurrent UTI Sleep apnea CPAP SSS (sick sinus syndrome) (HCC) Thyroid disease PAST SURGICAL HISTORY Procedure Laterality Date APPENDECTOMY HX CATARACT SURGERY, COMPLEX HYSTERECTOMY HX PPM DUAL 2018 THYROIDECTOMY TOTAL/COMPLETE Parathyroid removal TOTAL KNEE REPLACEMENT Left x2- one revision Social History Tobacco Use Smoking status: Never Smokeless tobacco: Never Vaping Use Vaping Use: Never used Substance Use Topics Alcohol use: No Drug use: Never Family History Problem Relation Age of Onset Uterine Cancer Mother Hypertension Father Lung Cancer Father other (Vascular) Son Hypertension Son ALLERGIES Allergen Reactions Darvon [Propoxyphen* Shortness of Breath, Other: See Comments No strength, bad dreams Iodine Anaphylaxis 12/24/23- pt. premedicated with 13 hrs, had CT scan with IV contrast. Patient denied any s/s of SOB, difficulty breathing, wheezing, itching or rash. Lotensin [Benazepri* Vomiting, Other: See Comments Coughing Rivaroxaban Other: See Comments Developed pericardial effusion (more content not included)...[facility] 01-20-[facility] History of Present illness Narrative* Mario Moscoso APRN.REFINERY PIPELINE OPERATOR - 01/20/2024 12:00 PM EDT Images from the original note were not included. Heart and Vascular [facility] Heart Failure Clinic OUTPATIENT VISIT DATE January 20, 2024 OUTPATIENT VISIT TYPE ESTABLISHED PRIMARY CARE PHYSICIAN: Jorge Benavides MD CHIEF COMPLAINT: Patient presents with: Leg Edema Breathing Problem HISTORY OF PRESENT ILLNESS: Lynette Angulo is a 84 year old female who presents today for a follow-up visit in the Heart Failure Clinic. Patient has had 2 hospitalizations and/or emergency room encounters in the last 12 months. Most recent hospitalization was from 01/29 to 02/04 for hypertensive emergency. She reported dysuria during stay. UA/UC came back positive for E. coli. Bactrim was started prior to discharge and to be continued for 3 days total. Patient also underwent a device check for bradycardia and feelings of fatigue. Device check completed 01/31 with increase base rate to 55 bpm. Today, the patient reports feeling very short of breath. She is being worked up for TAVR. Shortnessof breath is thought to be mostly related to aortic valve. Reports increase in weight due to lack of mobility as she has chronic knee pain. Has not been contacted about a schedule or procedure. Patient expresses stress with not knowing what to expect. Denies chest pain, dizziness, lightheadedness, fever, chills. Reports leg swelling. Trouble sleeping at night at times due to mind racing. Denies PND or orthopnea. Did trial coming off amlodipine at the beginning of the year which did reduce swelling significantly however, blood pressure started to increase. States she was told to hold her eliquis prior to cath in November. She says she was not told when to restart. She reports that she has been taking only 5 mg once a day. Tries to monitor her sodium and fluids as best as she can. Weighs a few times week. IMPRESSION: NYHA Functional Class: II Stage: C heart failure Cora Angulo is an 84 year-old female who presents to the Heart Failure Clinic for follow up. She appears minimally hypervolemic on examination. will have her take additional 5 mg kerendia for 3 days. She is to call the office on Friday if no improvement in weight or symptoms. [place] el[place]is dose and restart along with plan of care regarding TAVR. Continue to monitor sodium and fluids. Reviewed all medications with patient. Reviewed plan of care with patient. All questions answered at this time. PLAN AND RECOMMENDATIONS: 1. Heart failure, unspecified HF chronicity, unspecified heart failure type (HCC) - ICD9: 428.9, ICD10: I50.9 - daily weights, call office if weight increases 3-4 lbs in a 1-4 day period -2 gm low sodium diet -activity as tolerated, rest breaks as needed -continue coreg, olmesartan, kerendia -? Start SGLT2i -wishes to hold off -continue amlodipine -follow up to be scheduled pending upcoming surgery 2. Primary hypertension - ICD9: 401.9, ICD10: I10 (primary diagnosis) -BP suboptimal during visit 135/58 mmHg -encourage DASH/low sodium diet -encourage exercise with rest breaks as needed -goal BP <130/80 mmHg -continue home BP monitoring 3. Paroxysmal atrial fibrillation (HCC) - ICD9: 427.31, ICD10: I48.0 -CHADSVASc 6 (age, DM, HTN, HF, gender) -continue coreg for rate control -HR 53 bpm during office visit -unable to tolerate metoprolol -continue eliquis for stroke prophylaxis Follow up appointment with Dr. Shetty 04/13/2024 PAST MEDICAL HISTORY Diagnosis Date Anemia Aortic stenosis Atrial fibrillation (HCC) Atrial flutter (HCC) Bradycardia Cancer (HCC) thyroid Chronic kidney disease Diabetes (HCC) Gout Heart attack (HCC) HLD (hyperlipidemia) Hypertension Pericardial effusion Recurrent UTI Sleep apnea CPAP SSS (sick sinus syndrome) (HCC) Thyroid disease PAST SURGICAL HISTORY Procedure Laterality Date APPENDECTOMY HX CATARACT SURGERY, COMPLEX HYSTERECTOMY HX PPM DUAL 2018 THYROIDECTOMY TOTAL/COMPLETE Parathyroid removal TOTAL KNEE REPLACEMENT Left x2- one revision Social History Tobacco Use Smoking status: Never Smokeless tobacco: Never Vaping Use Vaping Use: Never used Substance Use Topics Alcohol use: No Drug use: Never Family History Problem Relation Age of Onset Uterine Cancer Mother Hypertension Father Lung Cancer Father other (Vascular) Son Hypertension Son ALLERGIES Allergen Reactions Darvon [Propoxyphen* Shortness of Breath, Other: See Comments No strength, bad dreams Iodine Anaphylaxis 12/24/23- pt. premedicated with 13 hrs, had CT scan with IV contrast. Patient denied any s/s of SOB, difficulty breathing, wheezing, itching or rash. Lotensin [Benazepri* Vomiting, Other: See Comments Coughing Rivaroxaban Other: See Comments Developed pericardial effusion Shellfish Anaphylaxis Shellfish Containin* Anaphylaxis, Shortness of Breath Spironolactone Other: See Comments Weak, made calcium level high, heart rate 20BPM Adhesive Rash Amlodipine Swelling Celecoxib Other: See Comments Due to kidneys Demeral [Meperidine] Vomiting Hydrochlorothiazide Other: See Comments Metformin Other: See Comments Metoprolol Shortness of Breath Penicillins Hives Simvastatin Myalgia, Other: See Comments Sitagliptin Other: See Comments CURRENT MEDICATIONS: Current Outpatient Medications Medication Sig Dispense Refill colchicine 0.6 mg tablet Take 1 tablet by mouth every other day. 45 tablet 3 ammonium lactate (LAC-HYDRIN) 12 % lotion cephALEXin (KEFLEX) 250 mg capsule Take 1 capsule by mouth daily at bedtime. clindamycin (CLEOCIN) 150 mg capsule as directed. diphenhydrAMINE (BENADRYL) 50 mg capsule Take 1 capsule by mouth as directed for 1 dose. one (1) hour prior to exam. 1 capsule 0 amLODIPine (NORVASC) 10 mg tablet Take 1 tablet by mouth once daily. 30 tablet 3 diphenhydrAMINE (BENADRYL) 50 mg capsule Take 1 capsule by mouth as directed for 2 doses. one (1) hour prior to exam. 1 capsule 0 olmesartan (BENICAR) 40 mg tablet Take 1 tablet by mouth once daily. 90 tablet 3 apixaban (ELIQUIS) 5 mg tab(s) Take 1 tablet by mouth twice daily. 60 tablet 5 finerenone (KERENDIA) 10 mg tablet q 24 HR. omega 8-sug-msc-fish oil 360 mg-108 mg- 180 mg-1,200 mg cap q 24 HR. glimepiride (AMARYL) 2 mg tablet Take 0.5 tablets by mouth daily with breakfast. 30 tablet 1 aspirin 81 mg chewable tablet Take 1 tablet by mouth once daily. 30 tablet 1 doxazosin (CARDURA) 4 mg tablet Take 1 tablet by mouth daily at bedtime. 30 tablet 1 carvedilol (COREG) 25 mg tablet Take 1 tablet by mouth twice daily with meals. 60 tablet 1 vibegron (GEMTESA) 75 mg tablet Take 1 tablet by mouth once daily. Cranberry 500 mg cap Take 1 capsule by mouth once daily. Ascorbic Acid 500 mg cpER Take by mouth once daily. 3 cinnamon bark (CINNAMON ORAL) Take by mouth. Take 2,00mg daily. lovastatin (MEVACOR) 20 mg tablet Take 20 mg by mouth daily at bedtime. cholecalciferol (VITAMIN D3) 5,000 unit tab Take 5,000 Units by mouth once daily. pantoprazole DR (PROTONIX) 40 mg tablet TAKE 1 TABLET BY MOUTH ONCE DAILY AT 6 AM 90 tablet 0 levothyroxine (SYNTHROID) 125 mcg tablet Take 125 mcg by mouth once daily. latanoprost (XALATAN) 0.005 % ophthalmic solution Use 1 Drop in both eyes daily at bedtime. Current Facility-Administered Medications Medication Dose Route Frequency Provider Last Rate Last Admin perflutren lipid microspheres 1.3 mL in NaCl (PF) 0.9% 10 mL injection (DEFINITY) INTRAVENOUS DIRECTED PRBrenton Kay MD sodium chloride 0.9 % (flush) 10 mL (BD POSIFLUSH) 10 mL INTRAVENOUS DIRECTED PRBrenton Kay MD REVIEW OF SYSTEMS: GENERAL: Positive for:Weight gain HEENT: Positive for:Glasses NECK: Negative for: Swelling, Pain, Stiffness RESPIRATORY: Positive for: Shortness of breath GASTROINTESTINAL: Negative for: Trouble swallowing, Heartburn, Change in bowel habits, Blood in stool, Dark black stools MUSCULOSKELETAL: Positive for: Muscle or joint pain NEUROLOGIC/PSYCHIATRIC: Negative for: Weakness, Paralysis, Numbness, Tingling, Tremor, Nervousness or anxiety, Depressed mood, Memory loss SKIN: Negative for: Rash, Itching HEMATOLOGICAL/LYMPHATIC: Positive for: Easy bruising and Easy bleeding ENDOCRINE: Negative for: Heat or Cold Intolerance, Excessive Sweating, Frequent Urination, FrequentThirst PHYSICAL EXAMINATION: There were no vitals filed for this visit. General: Normal exam, no distress, overweight Skin: No clubbing, no cyanosis. Eyes: Extra ocular movements intact Neck: Neck veins are not distended Lungs: Chest clear to auscultation Heart: Rhythm: regular rate and rhythm, Rate: normal, Murmur Abdomen: Normal Extremities: edema: Trace Peripheral Pulses: Normal CARDIOVASCULAR MEDICINE TESTING: Latest Reference Range & Units 12/25/23 05:52 Sodium 136 - 144 mmol/L 132 (L) Potassium 3.7 - 5.1 mmol/L 4.5 Chloride 97 - 105 mmol/L 99 CO2 22 - 30 mmol/L 20 (L) BUN 7 - 21 mg/dL 46 (H) Creatinine 0.58 - 0.96 mg/dL 1.47 (H) Glucose 74 - 99 mg/dL 290 (H) Calcium 8.5 - 10.2 mg/dL 10.9 (H) Anion Gap 9 - 18 mmol/L 13 eGFR >=60 mL/min/1.73m 35 (L) (L): Data is abnormally low (H): Data is abnormally high DEVICE CHECK 01/14/2924: DUAL LEAD PACEMAKERS REMOTE EVALUATION: PRESENTING EGM: AP/VS BATTERY STATUS: Estimated time remaining to TORI is 7.5 yrs COUNTERS SINCE: 12/26/23 ATRIAL ARRHYTHMIAS: There was 1 AF event began on 12/25/23 that lasted 2.8 days. AF burden 11.3%. PAF per graph. On Eliquis per Epic. VENTRICULAR ARRHYTHMIAS: There have been no ventricular detections. LEAD MEASUREMENTS: Sensing and auto capture trends are appropriate. Review of the lead impedance trends are normal. OTHER DIAGNOSTICS: RA pacing 88.8%. RV pacing 8.4%. FOLLOW UP: Continue 3 month remote transmissions and yearly in-clinic interrogations. Talisha White RN NM SPECT/CARDIAC AMYLOID 12/26/2023: 1. Incidental Findings from limited non-diagnostic CTAC: - Coronary calcifications visualized. - Aortic valve leaflet calcifications visualized. Correlation with echocardiography suggested. 2 Lead PPM. Dilated pulmonary vasculature. I have personally reviewed the Laboratory Testing and Echocardiogram. COUNSELING: We discussed the following non-pharmacological measures during this visit: Smoking and alcohol abstinence/cessation, if applicable Dietary and medication compliance Monitoring daily weights and blood pressures Exercise regimen When to call our office Heart Failure Education Booklet: Previously given. Discussed red flags and when to call MD/LIDAR SCIENTIST or [facility]. Medications reconciled at end of visit: yes I spent 35 minutes in this visit, with more than 50% of the time devoted to patient counseling. SIGNATURE: Mario Moscoso APRN.CNP PATIENT NAME: Lynette Angulo DATE: January 20, 2024 TIME: 1200 documented in this encounterSelect Medical [facility] [place] Instructions* Patient Instructions* Mario Moscoso APRN.CNP - 01/20/2024 11:56 AM EDT Continue current medications as prescribed. You may take additional 5 mg kerendia (1/2 tablet) for three days. START this today, tomorrow and . Call office on Friday to report if no improvement symptoms. 2. Weigh yourself daily. Call me if your weight increases by 3-4 pounds in a 1-4 day period of time. 3. Continue low salt (2000 mg per day) diet. 4. Be as active as you are able. If you get tired, just stop and rest for a while. 5. Wishes to wait to schedule follow up appt. If you have any question or concern, you can call me at [phone]. documented in this encounterSelect Medical [facility] [place]-17-2024 Miscellaneous Notes* Telephone Encounter - Hayde Mosqueda RN - 01/14/2024 12:26 PM EDT Discussed with patient how to send a remote transmission. * Telephone Encounter - Ivy Starr - 01/14/2024 9:07 AM EDT Pt have questions regarding late correspondence and missed remote device check. Pt can be reached at [phone] documented in this encounterSelect Medical [facility] [place]24 Miscellaneous Notes* Telephone Encounter - Domenic Serrano APRN.CNP - 01/14/2024 9:59 AM EDT Resolved See phone encounter 01/07/2024. Domenic Serrano APRN.CNP * Telephone Encounter - Thersee Sinha - 12/29/2023 11:55 AM EDTSummary: Medication discrepancy with insurance Pt. Called and needs an appeal because her current insurance company is rejecting a medication and wants her to use generic version. She is currently on Mitigare 0.6mg capsule every 48 hrs. They want her to take Colchine (generic version) She would like you to call and appeal it at . Their fax number is . [facility] [place]. documented in this encounterSelect Medical [facility] [place]24 Miscellaneous Notes* Telephone Encounter - Ladonna Perdomo - 01/09/2024 2:42 PM EDT Call from patient requesting refill. Requested Prescriptions Pending Prescriptions Disp Refills colchicine 0.6 mg tablet 45 tablet 3 Sig: Take 1 tablet by mouth every other day. Patient last seen 11/19/23 Ladonna Perdomo documented in this encounterSelect Medical [facility] [place]2024 Miscellaneous Notes* Telephone Encounter - Lynette Ervin APRN.CNP - 01/09/2024 2:12 PM EDT Pt called asking for clarification on colchicine. Dose, she can take as she was taking prior to admission every other day * Telephone Encounter - Ladonna Perdomo - 01/09/2024 1:50 PM EDT January 09, 2024 Patient Contact Number: [phone] Patient last seen within the last year: Yes Date of last office visit: 11/19/23 Reason For Call: Medication Issue/Question: Physician: Garth Hoffman MD Patient was informed that non-urgent calls may be returned within the next three business days. Yes Patient called stating that she has been prescribed Colchicine .6 mg 1 tablet by mouth BID. She says this is not how she's been taking it, and that she usually takes 1 tablet every other day. Patientis asking why have the medication been changed. Patient can be reached at [phone] Ladonna Perdomo documented in this encounterCleveland [id number] Miscellaneous Notes* Telephone Encounter - Deepak Best APRN.CNP - 01/07/2024 2:59 PM EDT Spoke with patient Per staff message with Dr. Hoffman she may take generic colchicine Rx sent by Dr Hoffman today She is aware Deepak Best APRN.CNP * Telephone Encounter - Bianca Luong - 01/06/2024 4:19 PM EDT Hello. Ms. Angulo was told by her PCP, Dr. Garth Hoffman, to use Mitivare instead of generic version. Also, she is running out of her mediaction and will need to replace that soon. documented in this encounterSelect Medical [facility] [place]-2024 Miscellaneous Notes* Telephone Encounter - Keyonna Nur - 01/07/2024 8:37 AM EDT Call from patient requesting refill. Requested Prescriptions Pending Prescriptions Disp Refills colchicine 0.6 mg tablet 90 tablet 3 Sig: Take 1 tablet by mouth two times a day. Patient last seen 11/19/2023 Keyonna Nur documented in this encounterSelect Medical [facility] [place] History of Present illness Narrative* Jessica Echeverria APRN.CNP - 12/29/2023 8:57 AM EDT Images from the original note were not included. [facility] [place] [facility] Department of Cardiovascular Medicine SECTION OF INTERVENTIONAL CARDIOLOGY Date December 29, 2023 MULTI DISCIPLINARY TAVR TEAM MEETING [employer] Teams Meeting Team members: Dr. Willis, Dr. Alonzo, Dr. Kwong, Dr. Wheeler, Dr. Medellin, Dr. Mendoza, Dr. Hurst, Dr. Plascencia, Dr. Andersen, Dr. Luna, Dr. Vance Seo CNP, Lata Belcher CNP, Senia Mckeon CNP, Senia Chaney RN, Chandrakant ANDERSON, Tirso Gurrola, MIN, Patricia Tineo PATIENT NAME: Lynette Angulo DATE: 12/29/2023 Presenting Physician: Dr. Wheeler Outcome: Lynette Angulo history and imaging were reviewed by the physicians in attendance. CT, echo, and cath reviewed. Coronary disease but no angina. The collaborative recommendation would be TF 23 S3 followed by PCI if indicated. The patient will be contacted in the next few days/weeks to discuss the team recommendations. TAVR procedure scheduling will be handled by: CVM coordinator. Jessica Echeverria APRN.CNP documented in this encounterSelect Medical [facility] [place]-14-2024 Miscellaneous Notes* Telephone Encounter - Deepak Best APRN.CNP - 12/11/2023 3:34 PM EDT Left message for patient tor return our call Need to know which medication she needs PA * Telephone Encounter - Bianca Luong - 12/10/2023 10:59 AM EDT Patient needs to reach out for pre-authorization of medication documented in this encounterSelect Medical [facility] [place]-[facility]2024 Miscellaneous Notes* Telephone Encounter - Kody Oro - 12/08/2023 11:37 AM EDT Images from the original note were not included. documented in this encounterSelect Medical [facility] [place]-[facility] History of Present illness Narrative* Lesli Shaver APRN.CNP - 11/19/2023 1:00 PM EST Images from the original note were not included. [id number] [facility] [place] [facility] Department of Cardiovascular Medicine SECTION OF CARDIOVASCULAR IMAGING OUTPATIENT VISIT DATE November 18, 2023 OUTPATIENT VISIT TYPE ESTABLISHED PRIMARY CARE PHYSICIAN: Jorge Benavides [address] [address] REFERRING PHYSICIAN: Angelito Cifuentes [address] [facility] [id number] CHIEF COMPLAINT: Follow up HISTORY OF PRESENT ILLNESS: Ms. Angulo is a 83 year old female who presents today for follow-up visit. Since her last visit patient reports fatigue and dyspnea on exertion, she states her symptoms have worsened. PAST CARDIAC HISTORY: She has been seen in the past for aortic stenosis, SSS s/p PPM, paroxysmal atrial fibrillation, hypertension, CKD, DM2, and pericarditis with pericardial effusion. She was last seen on 05/14/2023 by Yasmin Mcclendon. PAST MEDICAL HISTORY Diagnosis Date Atrial fibrillation (HCC) Atrial flutter (HCC) Bradycardia Cancer (HCC) thyroid Chronic kidney disease Diabetes (HCC) Dyslipidemia Gout Heart attack (HCC) Hypercholesteremia Hypertension Pericardial effusion Recurrent UTI Sleep apnea Thyroid disease PAST SURGICAL HISTORY Procedure Laterality Date APPENDECTOMY HX CATARACT SURGERY, COMPLEX HYSTERECTOMY HX PPM DUAL 2018 THYROIDECTOMY TOTAL/COMPLETE Parathyroid removal TOTAL KNEE REPLACEMENT Left x2- one revision SOCIAL HISTORY Social History Tobacco Use Smoking status: Never Smokeless tobacco: Never Vaping Use Vaping Use: Never used Substance Use Topics Alcohol use: No Drug use: Never FAMILY HISTORY Problem Relation Age of Onset Hypertension Father other (Vascular) Son Hypertension Son ALLERGIES: ALLERGIES Allergen Reactions Darvon [Propoxyphen* Shortness of Breath, Other: See Comments No strength, bad dreams Iodine Anaphylaxis Lotensin [Benazepri* Vomiting, Other: See Comments Coughing Rivaroxaban Other: See Comments Developed pericardial effusion Shellfish Anaphylaxis Shellfish Containin* Anaphylaxis, Shortness of Breath Spironolactone Other: See Comments Weak, made calcium level high, heart rate 20BPM Adhesive Rash Amlodipine Swelling Celecoxib Other: See Comments Due to kidneys Demeral [Meperidine] Vomiting Hydrochlorothiazide Other: See Comments Metformin Other: See Comments Metoprolol Shortness of Breath Penicillins Hives Simvastatin Myalgia, Other: See Comments Sitagliptin Other: See Comments MEDICATIONS: amLODIPine (NORVASC) 10 mg tablet^Take 1 tablet by mouth once daily.^Disp: 30 tablet^Rfl: 0 olmesartan (BENICAR) 40 mg tablet^Take 1.5 tablets by mouth once daily.^Disp: ^Rfl: apixaban (ELIQUIS) 5 mg tab(s)^Take 1 tablet by mouth twice daily.^Disp: 60 tablet^Rfl: 5 finerenone (KERENDIA) 10 mg tablet^q 24 HR.^Disp: ^Rfl: dexAMETHasone (DECADRON) 1 mg tablet^TAKE 1 TABLET BY MOUTH AT 11PM THE NIGHT BEFORE CORTISOL TEST.^Disp: ^Rfl: omega 8-fhs-tml-fish oil 360 mg-108 mg- 180 mg-1,200 mg cap^q 24 HR.^Disp: ^Rfl: glimepiride (AMARYL) 2 mg tablet^Take 0.5 tablets by mouth daily with breakfast.^Disp: 30 tablet^Rfl: 1 aspirin 81 mg chewable tablet^Take 1 tablet by mouth once daily.^Disp: 30 tablet^Rfl: 1 doxazosin (CARDURA) 4 mg tablet^Take 1 tablet by mouth daily at bedtime.^Disp: 30 tablet^Rfl: 1 carvedilol (COREG) 25 mg tablet^Take 1 tablet by mouth twice daily with meals.^Disp: 60 tablet^Rfl:1 vibegron (GEMTESA) 75 mg tablet^Take 1 tablet by mouth once daily.^Disp: ^Rfl: Cranberry 500 mg cap^Take 1 capsule by mouth once daily.^Disp: ^Rfl: Ascorbic Acid 500 mg cpER^Take by mouth once daily.^Disp: ^Rfl: 3 cinnamon bark (CINNAMON ORAL)^Take by mouth. Take 2,00mg daily.^Disp: ^Rfl: lovastatin (MEVACOR) 20 mg tablet^Take 20 mg by mouth daily at bedtime.^Disp: ^Rfl: cholecalciferol (VITAMIN D3) 5,000 unit tab^Take 5,000 Units by mouth once daily.^Disp: ^Rfl: pantoprazole DR (PROTONIX) 40 mg tablet^TAKE 1 TABLET BY MOUTH ONCE DAILY AT 6 AM^Disp: 90 tablet^Rfl: 0 levothyroxine (SYNTHROID) 125 mcg tablet^Take 125 mcg by mouth once daily.^Disp: ^Rfl: MITIGARE 0.6 mg capsule^every 48 hours.^Disp: ^Rfl: latanoprost (XALATAN) 0.005 % ophthalmic solution^Use 1 Drop in both eyes daily at bedtime.^Disp: ^Rfl: REVIEW OF SYSTEMS: Positive in Red GENERAL: Negative for: Weight loss or gain, Fever or Chills, Weakness and Sleep difficulties. HEENT: Negative for: Headache, Impaired Vision, Glasses, Hearing Impairment, Ringing in Ears, Nosebleeds, Poor Dental Care, Bleeding Gums and Dentures. NECK: Negative for: Swelling, Pain, Stiffness RESPIRATORY: Negative for: Cough, Blood in Sputum, Shortness of breath, Wheezing, Apnea GASTROINTESTINAL: Negative for: Trouble swallowing, Heartburn, Change in bowel habits, Blood in stool, Dark black stools MUSCULOSKELETAL: Negtive for: Muscle or joint pain, stiffness, Joint swelling NEUROLOGIC/PSYCHIATRIC: Negative for: Weakness, Paralysis, Numbness, Tingling, Tremor, Nervousness or anxiety, Depressed mood, Memory loss SKIN: Negative for: Rash, Itching HEMATOLOGICAL/LYMPHATIC: Negative for: Easy bruising, Easy bleeding ENDOCRINE: Negative for: Heat or Cold Intolerance, Excessive Sweating, Frequent Urination, FrequentThirst PHYSICAL EXAMINATION: BP 161/68 Pulse (!) 56 Ht 157.5 cm (5' 2) Wt 86.2 kg (190 lb) SpO2 98% BMI 34.75 kg/m General: Well appearing, in no acute distress, speaking in complete sentences. Skin: Warm, dry Eyes: Non-icteric sclerae Neck: no jugular venous distention, Lungs: Clear to auscultation bilaterally, no wheezing or rhonchi. Heart: Regular rhythm, soft systolic murmur noted Abdomen: Soft, nontender Extremities: No peripheral edema, 2+ distal pulses bilaterally Neuro: Oriented to person, place and time, alert, cooperative CARDIOVASCULAR MEDICINE TESTING: Last ECHO Result Conclusion ECHO Collected: 11/19/2023 11:24 AM (Final result) Impression: CONCLUSIONS: - Exam indication: Pericardial conditions - The left ventricle is normal in size. There is moderate concentric left ventricular hypertrophy. Left ventricular systolic function is normal. EF = 57 5% (2D biplane) - The right ventricle is normal in size. Right ventricular systolic function is normal. - Tricuspid aortic valve. There is moderate aortic valve stenosis caused by calcified valve and restricted opening. AV area is 1.03 cm (0.55 cm /m ) by STEVEN foster. The peak gradient is 31 mmHg, the mean gradient is 19 mmHg and the dimensionless valve index is 0.31. Prior AV peak/mean gradients were 40/22 mmHg. - No evidence of constrictive physiology. - Exam was compared with the prior echocardiographic exam performed on 01/29/2023. Overall stable findings when compared to this immediate prior echo. * * * Final * * * Last EKG Result Conclusion ECG COMPLETE Collected: 06/09/2023 12:43 PM (Final result) Impression: ATRIAL-PACED RHYTHM WITH PROLONGED AV CONDUCTION LEFT AXIS DEVIATION COMPLETE LEFT BUNDLE BRANCH BLOCK ABNORMAL ECG Confirmed by JENNIFER HESS MD ([id number]) on 06/12/2023 10:04:31 PM Last MRI Result Conclusion MRI CARDIAC VELOCITY FLOW MAP Exam End: 03/24/2023 11:11 AM (Final result) Impression: IMPRESSION: - This study is limited by artifact from implantable cardiac device and indwelling leads, though adequate for interpretation. 1. No pericardial effusion or thickening. Trivial pericardial delayed enhancement, further mildly improved since last MRI. No pericardial edema and no evidence of constrictive physiology. 2. The left ventricular function is normal (55%) and size is normal (end-diastolic volume index 60 mL/m ). Again seen is subtle mid-myocardial delayed gadolinium enhancement in the basal lateral wall, which is a non-ischemic finding. 3. The right ventricle is normal in size (end-diastolic volume index 72 mL/m ) and function (50% ejection fraction). 4. Aortic valve is moderately thickened (+/-calcified) with flow acceleration across valve indicating degree of stenosis (peak velocity 2.3 m/s underestimated) - correlate with echo findings. Mild mitral thickening and regurgitaiton. - Exam was compared with the prior cardiac MR exam performed on 05/30/2022, further mild improvement of pericrdial enhancement otherwise similar findings. * * * Final * * * RP Customer Engagement Specialist: GUS Transcribe Date/Time: Mar 24 2023 9:59A Dictated by : YOAV ADLER MD This examination was interpreted and the report reviewed and electronically signed by: YOAV ADLER MD on Mar 24 2023 3:03PM EST Labwork Component Latest Ref Rng & Units 11/19/2023 WBC 3.70 - 11.00 k/uL 6.99 RBC 3.90 - 5.20 m/uL 4.22 Hemoglobin 11.5 - 15.5 g/dL 13.9 Hematocrit 36.0 - 46.0 % 40.6 MCV 80.0 - 100.0 fL 96.2 MCH 26.0 - 34.0 pg 32.9 MCHC 30.5 - 36.0 g/dL 34.2 RDW-CV 11.5 - 15.0 % 13.4 Platelet Count 150 - 400 k/uL 230 MPV 9.0 - 12.7 fL 10.2 Neut% % 86.4 Abs Neut (ANC) 1.45 - 7.50 k/uL 6.04 Lymph% % 9.6 Abs Lymph 1.00 - 4.00 k/uL 0.67 (L) Travis% % 2.6 Abs Travis <0.87 k/uL 0.18 Eosin% % 0.0 Abs Eosin <0.46 k/uL <0.03 Baso% % 0.1 Abs Baso <0.11 k/uL <0.03 Immature Gran % % 1.3 IMMATURE GRANS (ABS) <0.10 k/uL 0.09 NRBC /100 WBC 0.0 Absolute nRBC <0.01 k/uL <0.01 DTYPE Auto Protein, Total 6.3 - 8.0 g/dL 6.9 Albumin 3.9 - 4.9 g/dL 4.2 Calcium 8.5 - 10.2 mg/dL 10.5 (H) Bilirubin, Total 0.2 - 1.3 mg/dL 0.7 Alkaline Phosphatase 34 - 123 U/L 114 AST 13 - 35 U/L 14 ALT 7 - 38 U/L 22 Glucose 74 - 99 mg/dL 236 (H) BUN 7 - 21 mg/dL 60 (H) Creatinine 0.58 - 0.96 mg/dL 1.46 (H) Sodium 136 - 144 mmol/L 135 (L) Potassium 3.7 - 5.1 mmol/L 4.9 Chloride 97 - 105 mmol/L 101 CO2 22 - 30 mmol/L 22 Anion Gap 9 - 18 mmol/L 12 eGFR >=60 mL/min/1.73m 36 (L) Cholesterol, Total <200 mg/dL 192 Triglyceride <150 mg/dL 49 HDL Cholesterol >39 mg/dL 87 Non HDL Cholesterol <130 mg/dL 105 Fasting Time hrs 1 VLDL Cholesterol <30 mg/dL 10 TC:HDL Ratio <5.10 2.21 LDL Cholesterol <100 mg/dL 95 LDL:HDL Ratio <2.54 1.09 CRP <0.9 mg/dL <0.3 NT Pro BNP <450 pg/mL 618 (H) WSR 0 - 20 mm/hr 7 IMPRESSION: Ms. Angulo is a 83 year old female with a history of aortic stenosis, SSS s/p PPM, paroxysmal atrial fibrillation, hypertension, CKD, DM2, and pericarditis with pericardial effusion who presents today for follow up visit. At today's visit patient is more symptomatic with increased shortness of breath and fatigue. BP in the 160s, Home BP 130-160s + sodium and dietary indiscretion. She has left knee pain is not very mobile. Today's echo is stable. Inflammatory markers are within normal limits. PLAN AND RECOMMENDATIONS: Continue current medications Continue ASA 81 mg/day, Colchicine 0.6 mg every other day (DC after review of lab/study findings with Dr. Hoffman) Follow Low-salt, heart healthy diet Lipids well controlled, LDL~95 Continue to monitor BP at home Follow up with [facility] Follow up wit EP Routine device interrogation Consulted TAVR Team Follow up with Dr. Hoffman in 3 months Future Appointments Date Time Provider Department Center 01/20/2024 12:00 PM Mario Moscoso, [email or web address].[facility] 02/09/2024 12:30 [facility] 02/09/[facility]24 1:00 PM Xiao Suazo MD [facility] 02/10/2024 10:00 AM [facility] 02/18/2024 11:30 AM Deepak Best APRN.[facility] 04/13/2024 1:40 PM Sandy Shetty DO [facility] I personally interviewed, confirmed and edited the above information if obtained by others. CONTACT INFORMATION: Lesli Shaver, OMARI, LIDAR SCIENTIST [address] [id number] [place] [address] phone [phone] fax [facility] Cardiovascular Medicine, Section of Cardiac Imaging Heart and Vascular [place] documented in this encounter[facility] [place] Instructions* Patient Instructions* Deepak Best APRN.MOIZ - 11/19/2023 9:43 AM EST Images from the original note were not included. PREVENTIVE CARDIOLOGY Home Blood Pressure Monitoring The 2017 High Blood Pressure Clinical Practice Guidelines, endorsed by the [place] [employer] and the [place] [employer] Association1, place a special emphasis on home blood pressure monitoring. The measurements obtained at home are likely a more accurate reflection of your actual blood pressure and ultimately your risk of adverse cardiovascular events (strokes, heart attacks, heart failure.) With this in mind, we recommend checking your blood pressure (BP) and heart rate (HR) and writing down the readings and the time of day. Ideally you would check your BP multiple times as we adjust your medications. In the future we may be able to decrease the number of times that you are checking, based on the stability of your readings. You should try to measure your blood pressure in the morning, before taking your blood pressure medications. You may check occasionally in the evening as well. When you are ready to begin checking your BP, try to relax and sit for 5 minutes. Press the start button on the machine. Count to 60 between each recording and take 2 or 3 consecutive measurements. BP & HR LOG EXAMPLE DATE TIME Blood Pressure Heart Rate eg. Apr 6:40 am 146/87 62 144/85 62 143/83 63 eg. Apr Morning 133/77 69 130/85 59 130/86 62 Correctly Checking Your Blood Pressure Buy a BP machine with a cuff that goes around the upper arm and not the wrist. Ensure you have the correct size cuff based on your arm circumference. Below is a table taken directly from the 2017 High Blood Pressure Guidelines.1 Arm Circumference Usual Cuff Size 22-26 cm Small adult 27-34 cm Adult 35-44 cm Large adult 45-52 cm Adult thigh Not all BP machines are accurate, but most are. The more expensive units have extra features (Bluetooth etc.) that can make it easier to record your readings, but are not necessarily more accurate than the simpler machines. Your machine should be brought to your doctor every 1 to 2 years to be checked for accuracy. The most well validated BP machines available in the [place] are listed at www.validatebp.org. To take a BP reading correctly, go into a quiet area. Sit in a chair with your feet flat on the ground and back supported (without crossing your legs.) Your arm should be at the level of the heart and supported (do not hold it in the air). Resting your arm on the kitchen table is often an appropriate height. Put the BP cuff on and try to relax for 5 minute before pressing the start button. Remain quiet. Take multiple readings and wait 60-90 seconds between each one. Most machines will record the values so you can write them down after measuring. Review of Home Blood Pressure Monitoring Results If changes have been made to your blood pressure medication treatment plan, we encourage you to monitor your blood pressures at home and submit them for our review. Based on your self-recorded measurements we can make adjustments to medications between office visits if needed. To accurately assess your blood pressure control outside of the office, please ensure that you are using a device that has been validated for clinical accuracy. Additionally, we encourage you to follow the above instructions on accurate home blood pressures measurement. So that we have enough data upon which to based clinical changes, we ask that you submit a minimum of 12 blood pressure readings for our review via [employer] (or by other means if instructed by your healthcare provider.) 1. Curtis et al. J Am Gabriela Cardiol. 2018 February 10;71(19):[id number]. 2. PREVENTIVE CARDIOLOGY LOW SODIUM DIET A low-sodium diet limits foods that are high in sodium. Salty foods are high in sodium. You will need to follow a low-sodium diet if you have high blood pressure, kidney disease, or heart failure. You may also need to follow this diet if you have a condition that is causing your body to retain (hold) extra fluid. You may need to limit the amount of sodium in your diet to 1,500 - 2,300mg per day. Ask your caregiver how much sodium you can have each day. HOW TO DECREASE SODIUM CONSUMPTION Here are the following guidelines to help reduce the amount of sodium in your diet Take the salt shaker off the table and omit salt from recipes and food preparation. Cook without salt or with only small amounts of added salt. Learn to enjoy the flavors of unsalted foods. Try flavoring foods with herbs, spices, and lemon juice. Read food labels carefully to determine the amounts of sodium. Learn to recognize ingredients that contain sodium. Rinsing canned vegetables and fish will remove much of the salt. Season or marinate meat, poultry, and fish ahead of time with onion, garlic and your favorite herbsbefore cooking to bring out the flavor. Some terms describing sodium content: lite, light, lightly salted, low sodium, reduced sodium, sodium free, unsalted, no salt added, without salt added, very low sodium. Use lower sodium products, when available, to replace those with higher sodium content. Use simple techniques like saving chicken broth from a chicken you cook at home rather than buying a canned, powdered or bouillon cube broth. When dining out words that signal high sodium include: smoked, barbecued, pickled, broth, soy sauce, teriyaki, creole sauce, marinated, cocktail sauce, tomato base, Parmesan, and mustard sauce. FOODS RECOMMENDED FOODS TO AVOID MILK & DAIRY 2-3 servings each day All milk and milk products, except buttermilk Cream cheese Low sodium cheeses Yogurt MILK & DAIRY Buttermilk Cheese (Gideon, José, Cheddar, Blue, Gouda, S[place]inese, Velveeta) Cheese spreads FRUIT & VEGETABLES 5-9 servings/day Fresh or frozen vegetables No added salt or low salt canned vegetables No added salt tomato products Salt-free vegetable juices All fruit and fruit juices FRUIT & VEGETABLES Canned vegetables Frozen vegetables with seasoning and sauces Pickle relish, sweet or sour Pickled Vegetables Pickles and others prepared in brine Sauerkraut Vegetable or tomato juices, canned or bottled Pickled Fruits BREADS & GRAINS 6-11 servings/day Bread and rolls Dry and cooked cereals Pancakes, waffles Potatoes Salt-free potato chips Salt-free pretzels/snack chips Rice, barley, noodles, spaghetti, macaroni and other pastas Tortillas Unsalted crackers Unsalted popcorn BREADS & GRAINS Breads and rolls with salted tops Instant hot cereals Instant Food Products (e.g., cereals, pasta mixes, potatoes, rice, etc.) Such as boxed mixes like rice, scalloped potatoes, macaroni and cheese Popcorn, Prepackaged Microwave Salted popcorn Saltines, potato chips, pretzels, snack chips, pork rinds MEATS & MEAT SUBSTITUTES 2-3 servings or total of 6 oz daily All fresh and fresh frozen meats (poultry, fish, shellfish, beef, pork, vega) Canned unsalted tuna fish Dried peas and beans Eggs Low sodium peanut butter Unsalted nuts Unsalted soybeans and other meat substitutes MEATS & MEAT SUBSTITUTES Cured, salted, canned or smoked meats, poultry, or fish such as corned beef, ham, stoll, luncheon meats, beef jerky, bologna, pork rinds, hogmaws, ribs, chitterlings, frankfurter, sausage, chorizo, canned fish like tuna, sardines, mackerel, anchovies, caviar, salted cod, garrido, sardines, lox, dryfish, and kippered salmon Dried Fish, Assorted (e.g., dried shrimp) Frozen pizza Frozen prepared meat entree dinners such as pot pies, macaroni and cheese Kosher meats Pickled Meats Regular peanut butter Salted nuts Soups Homemade soups, made with allowed ingredients Unsalted broth or bouillon Low sodium commercial soup Soups Broth and soups with added salt Regular canned soups Regular instant soups Regular bouillon cubes FATS & SNACKS (use sparingly) Margarine, vegetable oils and lard Unsalted gravies Unsalted butter Mayonnaise, sour cream Salt-free salad dressings Homemade salad dressings, made without added salt Whipping cream Sugar, honey, jelly, jam, syrup, candies Popsicle s, fruit ice, sherbet, fruit sorbet, marshmallows Homemade cookies, pies, cakes made with allowed ingredients FATS & SNACKS Butter Commercial salad dressings Cheese-based dressings Stoll fat, fatback, salt pork Salad dressing mixes Olives, green and black Prepared frozen cream pies and cheese cake Instant pudding mixes Commercially prepared baked goods (Cakes, cookies, pie) Salted nuts MISC. Allspice, Mustard (dry) [place] Extract Basil Archie Leaves Capello's Mohawk Style Seasoning [place] Seeds Chives Cider Vinegar Cinnamon Bledsoe Powder Nandini Crystal Dill Garlic Powder Abbie Herbal Seasonings: Lawry's Seasoned Pepper Lawry's Seasoning (no salt) Lemon Juice Mace Mrs. Dash Nutmeg Onion Powder Paprika Parsley Parsley Patch Peppermint Extract Pimento Priyanka Luis Salt free seasoning blends Savory Sodium-free Baking Powder Thyme Turmeric Vinegar Lazcano's all-purpose Seasonings MISC. Accent Jessica-Cobden All commercially prepared and convenience foods such as TV dinners, box mixes, canned entrees, Hamburger [place], meat pies, Maltese dinners, pizza,Shake'n Bake mixes BBQ sauce Celery salt Frost sauce Garlic salt Horseradish Kitchen Bouquet Lemon pepper Marinade sauce Meat tenderizers Monosodium Glutamate (MSG) Onion salt Green Party spreads Regular ketchup Relish Salad dressings Salt Seasoning salts Sodium Benzoate Sodium Caseinate Sodium Citrate Sodium Nitrate Sodium Phosphate Sodium Propionate Sodium Saccharin Soy sauce Steak sauce Tartar sauce Teriyaki sauce [facility] sauce Labeled no salt Products, Assorted [e.g., hobson paste and sauces, oriental dried plums and other dried seeds, vegetables and fruits (lemon & abbie)] PREVENTIVE CARDIOLOGY Best Proven Nonpharmacological Interventions for the Prevention and Treatment of Hypertension* *Type, dose, and expected impact on BP in adults with a normal BP and with hypertension. DASH indicates Dietary Approaches to Stop Hypertension; and SBP, systolic blood pressure. Resources: Your Guide to Lowering Your Blood Pressure With DASH--How Do I Make the DASH? Available at: https://www.nhlbi.nih.gov/health/resources/heart/dvf-wwql-efg-to. Top 10 Dash Diet Tips. Available at: http://dashdiet.org/dash_diet_tips.asp In the [place], one standard drink contains roughly 14 g of pure alcohol, which is typically found in 12 oz of regular beer (usually about 5% alcohol), 5 oz of wine (usually about 12% alcohol),and 1.5 oz of distilled spirits (usually about 40% alcohol). SOURCE: 2017 Guideline for the Prevention, Detection, Evaluation, and Management of High Blood Pressure in Adults documented in this encounter[facility] [place] History of Present illness Narrative* Deepak Best APRN.MOIZ - 11/19/2023 9:33 AM EST Images from the original note were not included. Heart and Vascular [place] [facility] Department of Cardiovascular Medicine SECTION OF PREVENTIVE CARDIOLOGY November 19, 2023 Lynette Angulo CURRENT MEDS: Current Outpatient Medications Medication Sig amLODIPine (NORVASC) 10 mg tablet Take 1 tablet by mouth once daily. olmesartan (BENICAR) 40 mg tablet Take 1.5 tablets by mouth once daily. apixaban (ELIQUIS) 5 mg tab(s) Take 1 tablet by mouth twice daily. finerenone (KERENDIA) 10 mg tablet q 24 HR. dexAMETHasone (DECADRON) 1 mg tablet TAKE 1 TABLET BY MOUTH AT 11PM THE NIGHT BEFORE CORTISOL TEST. omega 7-mjx-mih-fish oil 360 mg-108 mg- 180 mg-1,200 mg cap q 24 HR. glimepiride (AMARYL) 2 mg tablet Take 0.5 tablets by mouth daily with breakfast. aspirin 81 mg chewable tablet Take 1 tablet by mouth once daily. doxazosin (CARDURA) 4 mg tablet Take 1 tablet by mouth daily at bedtime. carvedilol (COREG) 25 mg tablet Take 1 tablet by mouth twice daily with meals. vibegron (GEMTESA) 75 mg tablet Take 1 tablet by mouth once daily. Cranberry 500 mg cap Take 1 capsule by mouth once daily. Ascorbic Acid 500 mg cpER Take by mouth once daily. cinnamon bark (CINNAMON ORAL) Take by mouth. Take 2,00mg daily. lovastatin (MEVACOR) 20 mg tablet Take 20 mg by mouth daily at bedtime. cholecalciferol (VITAMIN D3) 5,000 unit tab Take 5,000 Units by mouth once daily. pantoprazole DR (PROTONIX) 40 mg tablet TAKE 1 TABLET BY MOUTH ONCE DAILY AT 6 AM levothyroxine (SYNTHROID) 125 mcg tablet Take 125 mcg by mouth once daily. MITIGARE 0.6 mg capsule every 48 hours. latanoprost (XALATAN) 0.005 % ophthalmic solution Use 1 Drop in both eyes daily at bedtime. Current Facility-Administered Medications Medication Dose Route Frequency perflutren lipid microspheres 1.3 mL in NaCl (PF) 0.9% 10 mL injection (DEFINITY) INTRAVENOUS DIRECTED PRN sodium chloride 0.9 % (flush) 10 mL (BD POSIFLUSH) 10 mL INTRAVENOUS DIRECTED PRN ALLERGIES: ALLERGIES Allergen Reactions Darvon [Propoxyphen* Shortness of Breath, Other: See Comments No strength, bad dreams Iodine Anaphylaxis Lotensin [Benazepri* Vomiting, Other: See Comments Coughing Rivaroxaban Other: See Comments Developed pericardial effusion Shellfish Anaphylaxis Shellfish Containin* Anaphylaxis, Shortness of Breath Spironolactone Other: See Comments Weak, made calcium level high, heart rate 20BPM Adhesive Rash Amlodipine Swelling Celecoxib Other: See Comments Due to kidneys Demeral [Meperidine] Vomiting Hydrochlorothiazide Other: See Comments Metformin Other: See Comments Metoprolol Shortness of Breath Penicillins Hives Simvastatin Myalgia, Other: See Comments Sitagliptin Other: See Comments CHIEF COMPLAINT: Lynette Angulo is a 83 year old White female seen today. Patient presents with: Follow Up HISTORY OF PRESENT CARDIOVASCULAR ILLNESS: 83 year old female with a PMH significant for pericarditis, hypertension, type 2 diabetes mellitus,stage 4 chronic kidney disease, SSS (status post DC-PM), aortic stenosis. Pt presents for follow upof hypertension. Reports increased fatigue and MCGOVERN. BP has been labile 160/80's in am and 130-140 SBP in pm Has not been adherent to low sodium diet Chest pain: No Claudication: No SOB: see above Orthopnea: No PND: No LE: yes, since resuming amlodipine Lightheadedness/dizziness: no Palpitations:No Bleeding/bruising: No CARDIAC RISK FACTORS: Diabetes : Hypertension : Dyslipidemia : Exercise: Does not exercise Limited by knee pain Avg. Sleep Hours Per Night?: 5.5 STATIN INTOLERANCE: USE OF PCSK9 INHIBITORS: CARDIOVASCULAR DISEASE HISTORY: FAMILY AND SOCIAL HISTORY Lifestyle Tobacco Use: Never Alcohol Use: No PHYSICAL EXAMINATION Vital Signs and General Appearance BP 138/62 Pulse (!) 58 Ht 157.5 cm (5' 2.01) Wt 86.2 kg (190 lb) BMI 34.74 kg/m BMI 34.74 kg/(m^2) PHYSICAL EXAMINATION: General appearance: well appearing, alert, in no acute distress, and well- hydrated, well nourished Carotid Pulses: Left:2+, Right: 2+, Bruit: No Lungs: lungs clear to auscultation no wheezing or rhonchi Heart: S1/S2, RRR, 2/6 systolic murmur Lower Extremities Pulses: Right Posterior Tibial: 2+, Left Posterior Tibial: 2+, Edema: +1 bilateral LE Clinical Test Results Last ECHO Result Conclusion ECHO Collected: 01/29/2023 4:00 PM (Final result) Impression: CONCLUSIONS: - Technically difficult exam due to body habitus. - Exam indication: Routine surveillance of moderate or severe valvular stenosis (>1yr) - The left ventricle is mildly dilated. Left ventricular systolic function is mildly decreased. EF = 54 5% (visual est.) - The right ventricle is normal in size. Right ventricular systolic function is normal. - The left atrial cavity is severely dilated. - The right atrial cavity is dilated. - There is moderate (2+) tricuspid valve regurgitation. - There is moderately severe aortic valve stenosis caused by restricted opening. AV area is 0.83 cm (0.45 cm /m ) by continuity, VTI. The peak gradient is 40 mmHg, the mean gradient is 22 mmHg and the dimensionless valve index is 0.27. On 2D imaging, aortic valve opening appears moderately to severely reduce. The calculated STEVE suggests severe stenosis. Prior peak/mean gradient of 29/18 mmHg. - Exam was compared with the prior echocardiographic exams. Slow, steady worsening of STEVE, AoV gradients. Clinical correlation recommended. * * * Final * * * Last EKG Result Conclusion ECG COMPLETE Collected: 06/09/2023 12:43 PM (Final result) Impression: ATRIAL-PACED RHYTHM WITH PROLONGED AV CONDUCTION LEFT AXIS DEVIATION COMPLETE LEFT BUNDLE BRANCH BLOCK ABNORMAL ECG Confirmed by JENNIFER HESS MD ([id number]) on 06/12/2023 10:04:31 PM Ejection Fraction: Ejection Fraction: Normal (>50%) Lab Results: Total Cholesterol, Nonfasting Date Value Ref Range Status 05/14/2023 147 <200 mg/dL Final Comment: <200 mg/dL, Desirable 200-239 mg/dL, Borderline high >239 mg/dL, High Triglycerides, Nonfasting Date Value Ref Range Status 05/14/2023 52 <150 mg/dL Final Comment: <150 mg/dL, Normal 150-199 mg/dL, Borderline high 200-499 mg/dL, High >499 mg/dL, Very high HDL Cholesterol, Nonfasting Date Value Ref Range Status 05/14/2023 61 >39 mg/dL Final Comment: 40-59 mg/dL, Acceptable >59 mg/dL, High: Negative risk factor for coronary heart disease <40 mg/dL, Low: Positive risk factor for coronary heart disease LDL Cholesterol, Nonfasting Date Value Ref Range Status 05/14/2023 76 <100 mg/dL Final Comment: <100 mg/dL, Optimal 100-129 mg/dL, Near optimal/above optimal 130-159 mg/dL, Borderline high 160-189 mg/dL, High >189 mg/dL, Very high Secondary prevention optimal LDL Cholesterol levels are recommended to be < 70 mg/dL Hemoglobin A1C Date Value Ref Range Status 01/30/2023 6.4 (H) 4.3 - 5.6 % Final Comment: [place] [employer] guidelines indicate that patients with HgbA1c in the range 5.7-6.4% are at increased risk for development of diabetes, and intervention by lifestyle modification may be beneficial. HgbA1c greater or equal to 6.5% is considered diagnostic of diabetes. ALT Date Value Ref Range Status 05/14/2023 20 7 - 38 U/L Final Glucose Date Value Ref Range Status 10/31/2023 131 (H) 74 - 99 mg/dL Final Comment: The [place] [employer] (ADA) provides guidance for cutoff values for fasting glucose andrandom glucose. The ADA defines fasting as no caloric intake for at least 8 hours. Fasting plasma glucose results between 100 to 125 mg/dL indicate increased risk for diabetes (prediabetes). Fasting plasma glucose results greater than or equal to 126 mg/dL meet the criteria for diagnosis of diabetes. In the absence of unequivocal hyperglycemia, results should be confirmed by repeat testing. In a patient with classic symptoms of hyperglycemia or hyperglycemic crisis, random plasma glucose results greater than or equal to 200 mg/dL meet the criteria for diagnosis of diabetes. Reference: Standards of Medical Care in Diabetes 2016, [place] [employer]. Diabetes Care. 2016.39(Suppl 1). TSH Date Value Ref Range Status 01/30/2023 0.962 0.270 - 4.200 mIU/L Final UltraSens C-Reactive Protein Date Value Ref Range Status 01/29/2023 3.2 (H) <3.1 mg/L Final Comment: hsCRP < 1.0 mg/L, relative risk is low hsCRP 1.0-3.0 mg/L, relative risk is average hsCRP > 3.0 mg/L, relative risk is high Reference: Lily TA, Delores GA, Angel RW, et al. Markers of Inflammation and Cardiovascular Disease. Application to Clinical and Public Health Practice. A Statement for Healthcare Professionals from the Centers for Disease Control and Prevention and the [place] [employer]. Circulation 2003;107:499-511. Albumin/Creat Ratio Date Value Ref Range Status 11/27/2022 538 (H) <30 mg/g Final Comment: Adult Male and Female Nephrotic Criteria: <30 mg/g is considered normal to mildly increased 30-300 mg/g is considered moderately increased >300 mg/g is considered severely increased KDIGO. (2013). KDIGO 2012 Clinical Practice Guideline for the Evaluation and Management of Chronic Kidney Disease. Official Journal of the International Society of Nephrology, 3(1), 1-150. Creatinine Date Value Ref Range Status 10/31/2023 1.30 (H) 0.58 - 0.96 mg/dL Final Potassium Date Value Ref Range Status 10/31/2023 4.4 3.7 - 5.1 mmol/L Final NT Pro BNP Date Value Ref Range Status 01/29/2023 1,805 (H) <450 pg/mL Final Patient Entered Questionnaire Scores IMPRESSION: In summary, Ms. Angulo is a 83 year old female who was referred to the [facility] because of , Hypertension PLAN: The results of this assessment were discussed with the patient. We have mutually agreed upon the following plans and goals: Pericarditis: is following with Dr. Hoffman s/p MS Pt reports having an MS on 12/01/22. She was treated at [facility]. LHC completed. No PCI Moderate/Severe : discussed need for future TAVR consult based on echo today. Hypertension, stage 4 CKD, proteinuria: - LOW SODIUM DIET < 2300 MG/DAY Home BP monitoring, call if BP >130/80 Amlodipine 10 mg olmesartan 40 mg nightly Coreg 25 mg BID Doxazosin 4 mg nightly CKD: Creatinine Date Value Ref Range Status 10/31/2023 1.30 (H) 0.58 - 0.96 mg/dL Final 10/07/2023 1.48 (H) 0.58 - 0.96 mg/dL Final 05/14/2023 1.33 (H) 0.58 - 0.96 mg/dL Final Creatinine (POCT) Date Value Ref Range Status 03/24/2023 1.80 (A) 0.7 - 1.4 mg/dL Final Hyperlipidemia: Cholesterol, Total (mg/dL) Date Value 11/27/2022 186 12/21/2020 286 Total Cholesterol, Nonfasting (mg/dL) Date Value 05/14/2023 147 HDL Cholesterol (mg/dL) Date Value 11/27/2022 75 12/21/2020 81 HDL Cholesterol, Nonfasting (mg/dL) Date Value 05/14/2023 61 LDL Cholesterol (mg/dL) Date Value 12/21/2020 186 LDL Cholesterol, Nonfasting (mg/dL) Date Value 05/14/2023 76 Triglyceride (mg/dL) Date Value 11/27/2022 57 12/21/2020 95 Triglycerides, Nonfasting (mg/dL) Date Value 05/14/2023 52 Plan: - update lipid Diabetes: Hemoglobin A1C 6.4 01/30/2023 Hemoglobin A1C 5.8 01/09/2022 Hemoglobin A1C 6.2 08/24/2020 Plan: - followed by PCP Exercise: No structured exercise due to knee pain. Remain active as able. Nutrition /Weight: BMI 34.74 kg/(m^2) PLAN: -Low sodium diet less than 2300 mg day -Recommend BMI less than 27 -Follow a Mediterranean diet: Choose plenty of whole or plant based foods-fruit, vegetables, whole grains, and nuts. Choose monounsaturated fat from olive oil, olives, nuts, and avocado. [place] 3 fats are another heart healthy fat found in tuna, salmon, flaxseed, and walnuts. Limit foods high in sodium, saturated fat, and cholesterol. HEALTH MAINTENANCE: Please follow-up with your Primary Card Physician and review your health maintenance to ensure it is up to date. MEDICATION CHANGES: none pending labs Physicians and Nurse Practitioners work closely together in Preventive Cardiology. If at any time you would like to see a Physician for a visit, please let us know. Last visit with [facility] physician: [place] 11/27/22 AMBULATORY PATIENT EDUCATION Topic: Education on risk factors and medications. Instruction Provided To: Patient Cognitive Ability: Alert/Oriented Barriers: None Motivation to Learn: Interested Methods of Instruction: Verbal instruction and/or handouts. Patient Leans Best By: Multiple Methods Patient Verbalized: Understanding I personally spent 35 minutes in total time involved in the management and care of this patient. Deepak Best APRN.MOIZ documented in this [facility] [place] Miscellaneous Notes* Telephone Encounter - Mario Moscoso APRN.CNP - 11/12/2023 10:11 AM EST Patient called last Friday to report high blood pressures with readings in 180's systolic. Denies symptoms. Instructed the patient to decrease olmesartan to 40 mg once a day and restart her amlodipine at 10 mg. Discussed adding hydralazine however, patient has multiple drug allergies and does not wish to start something new at this time. Will restart amlodipine at 10 mg once a day as she was on this in the past. Instructed her to continue to monitor her blood pressure 3-4 hours after morning medications. Called patient this morning to review readings. Blood pressures are in the 130's systolic. Patient feels well. Will have her continue with amlodipine for now. She is to monitor for leg swell ing and increase in weight. Discussed starting hydralazine in the future and discontinuing amlodipine if leg swelling persists. Reviewed plan of care with patient. All questions answered at this time. Instructed the patient to call office with any questions or concerns at any time. Mario Moscoso APRN.CNP documented in this encounterSelect [facility] [place]24 NoteHNO ID: [id number] Author: MARIO MOSCOSO APRN.CNP Service: ? Author Type: Nurse Practitioner Type: Progress Notes Filed: 11/04/2023 12:22 Note Text: Heart and Vascular [facility] OUTPATIENT VISIT DATE November 04, 2023 OUTPATIENT VISIT TYPE ESTABLISHED PRIMARY CARE PHYSICIAN: Jorge Benavides MD CHIEF COMPLAINT: Patient presents with: Breathing Problem HISTORY OF PRESENT ILLNESS: Lynette Angulo is a 83 year old female who presents today for a follow-up visit in the Heart Failure Clinic. The patient was last seen in office 10/07. The following changes were made at that time: stop amlodipine and take additional 20 mg olmesartan. The patient has had 2 hospital admissions in the past 12 months. The last admission was from 01/29 to 02/04 for management of hypertensive urgency. She was admitted prior to this for pericarditis which required a pericardiocentesis. She She was started on coreg, aspirin, amlodipine Today, the patient reports feeling well. Shortness of breath especially when climbing stairs. Denies chest pain, fever, chills, dizziness, lightheadedness. Minimal leg swelling since stopping amlodipine. Reports left knee pain in which she recently had gel injections. This causes her the most discomfort and limits mobility. Does not weigh herself every day. Maybe once a week. Tries to monitor her sodium and fluid intake. Has appt with Cardiology at [facility] regarding post pericarditis. IMPRESSION: NYHA Functional Class: II Stage: C heart failure Cora Angulo is an 83 year-old female who presents to the Heart Failure Clinic to establish care. She appears euvolemic on examination. No changes to medications at this time. Discussed starting SGLT2i. Wishes to wait at this time due to her knee pain. She will discuss with [facility] as well. Encouraged exercise as tolerated along with monitoring weight, blood pressure, sodium and fluids. As blood pressure is high,she is to take her blood pressure when she gest home from appt. If reading is above 150/60 mmHg, she is to take 20 mg benicar. Instructed her to monitor blood pressure 3-4 hours after morning medications and call office on Friday to review. Suggested blood pressure is high due to knee pain. She is scheduled for repeat echo in January. Will see in December or sooner if needed. Reviewed plan of care with patient. All questions answered at this time. PLAN AND RECOMMENDATIONS: 1. Heart failure, unspecified HF chronicity, unspecified heart failure type (HCC) - ICD9: 428.9, ICD10: I50.9 - daily weights, call office if weight increases 3-4 lbs in a 1-4 day period -2 gm low sodium diet -activity as tolerated, rest breaks as needed -continue coreg, olmesartan -? Start SGLT2i -wishes to hold off -stop amlodipine -follow up in December 2. Primary hypertension - ICD9: 401.9, ICD10: I10 (primary diagnosis) -BP suboptimal during visit 179/62 mmHg -encourage DASH/low sodium diet -encourage exercise with rest breaks as needed -goal BP <130/80 mmHg -continue home BP monitoring 3. Paroxysmal atrial fibrillation (HCC) - ICD9: 427.31, ICD10: I48.0 -CHADSVASc -continue coreg for rate control -HR 53 bpm during office visit -unable to tolerate metoprolol -continue eliquis for stroke prophylaxis Follow up appointment with Dr. Shetty 04/03/2024 PAST MEDICAL HISTORY Diagnosis Date Atrial fibrillation (HCC) Atrial flutter (HCC) Bradycardia Cancer (HCC) thyroid Chronic kidney disease Diabetes (HCC) Dyslipidemia Gout Heart attack (HCC) Hypercholesteremia Hypertension Pericardial effusion Recurrent UTI Sleep apnea Thyroid disease PAST SURGICAL HISTORY Procedure Laterality Date APPENDECTOMY HX CATARACT SURGERY, COMPLEX HYSTERECTOMY HX PPM DUAL 2018 THYROIDECTOMY TOTAL/COMPLETE Parathyroid removal TOTAL KNEE REPLACEMENT Left x2- one revision Social History Tobacco Use Smoking status: Never Smokeless tobacco: Never Vaping Use Vaping Use: Never used Substance Use Topics Alcohol use: No Drug use: Never Family History Problem Relation Age of Onset Hypertension Father other (Vascular) Son Hypertension Son ALLERGIES Allergen Reactions Darvon [Propoxyphen* Shortness of Breath, Other: See Comments No strength, bad dreams Iodine Anaphylaxis Lotensin [Benazepri* Vomiting, Other: See Comments Coughing Rivaroxaban Other: See Comments Developed pericardial effusion Shellfish Anaphylaxis Shellfish Containin* Anaphylaxis, Shortness of Breath Spironolactone Other: See Comments Weak, made calcium level high, heart rate 20BPM Adhesive Rash Amlodipine Swelling Celecoxib Other: See Comments Due to kidneys Demeral [Meperidine] Vomiting Hydrochlorothiazide Other: See Comments Metformin Other: See Comments Metoprolol Shortness of Breath Penicillins Hives Simvastatin Myalgia, Other: See Comments Sitagliptin Other: (more content not included)...[id number] of Present illness Narrative* Mario Moscoso APRN.REFINERY PIPELINE OPERATOR - 11/04/2023 12:00 PM EST Images from the original note were not included. Heart [facility] V[facility] OUTPATIENT VISIT DATE November 04, 2023 OUTPATIENT VISIT TYPE ESTABLISHED PRIMARY CARE PHYSICIAN: Jorge Benavides MD CHIEF COMPLAINT: Patient presents with: Breathing Problem HISTORY OF PRESENT ILLNESS: Lynette Angulo is a 83 year old female who presents today for a follow-up visit in the Heart Failure Clinic. The patient was last seen in office 10/07. The following changes were made at that time: stop amlodipine and take additional 20 mg olmesartan. The patient has had 2 hospital admissions in the past 12 months. The last admission was from 01/29 to02/04 for management of hypertensive urgency. She was admitted prior to this for pericarditis which required a pericardiocentesis. She She was started on coreg, aspirin, amlodipine Today, the patient reports feeling well. Shortness of breath especially when climbing stairs. Denies chest pain, fever, chills, dizziness, lightheadedness. Minimal leg swelling since stopping amlodipine. Reports left knee pain in which she recently had gel injections. This causes her the most discomfort and limits mobility. Does not weigh herself every day. Maybe once a week. Tries to monitor her sodium and fluid intake. Has appt with Cardiology at [facility] regarding post pericarditis. IMPRESSION: NYHA Functional Class: II Stage: C heart failure Cora Angulo is an 83 year-old female who presents to the Heart Failure Clinic to establish care. She appears euvolemic on examination. No changes to medications at this time. Discussed starting SGLT2i. Wishes to wait at this time due to her knee pain. She will discuss with [facility] as well. Encouraged exercise as tolerated along with monitoring weight, blood pressure, sodium and fluids. Asblood pressure is high,she is to take her blood pressure when she gest home from appt. If reading is above 150/60 mmHg, she is to take 20 mg benicar. Instructed her to monitor blood pressure 3-4 hours after morning medications and call office on Friday to review. Suggested blood pressure is high due to knee pain. She is scheduled for repeat echo in January. Will see in December or sooner if needed. Reviewed plan of care with patient. All questions answered at this time. PLAN AND RECOMMENDATIONS: 1. Heart failure, unspecified HF chronicity, unspecified heart failure type (HCC) - ICD9: 428.9, ICD10: I50.9 - daily weights, call office if weight increases 3-4 lbs in a 1-4 day period -2 gm low sodium diet -activity as tolerated, rest breaks as needed -continue coreg, olmesartan -? Start SGLT2i -wishes to hold off -stop amlodipine -follow up in December 2. Primary hypertension - ICD9: 401.9, ICD10: I10 (primary diagnosis) -BP suboptimal during visit 179/62 mmHg -encourage DASH/low sodium diet -encourage exercise with rest breaks as needed -goal BP <130/80 mmHg -continue home BP monitoring 3. Paroxysmal atrial fibrillation (HCC) - ICD9: 427.31, ICD10: I48.0 -CHADSVASc -continue coreg for rate control -HR 53 bpm during office visit -unable to tolerate metoprolol -continue eliquis for stroke prophylaxis Follow up appointment with Dr. Shetty 04/03/2024 PAST MEDICAL HISTORY Diagnosis Date Atrial fibrillation (HCC) Atrial flutter (HCC) Bradycardia Cancer (HCC) thyroid Chronic kidney disease Diabetes (HCC) Dyslipidemia Gout Heart attack (HCC) Hypercholesteremia Hypertension Pericardial effusion Recurrent UTI Sleep apnea Thyroid disease PAST SURGICAL HISTORY Procedure Laterality Date APPENDECTOMY HX CATARACT SURGERY, COMPLEX HYSTERECTOMY HX PPM DUAL 2018 THYROIDECTOMY TOTAL/COMPLETE Parathyroid removal TOTAL KNEE REPLACEMENT Left x2- one revision Social History Tobacco Use Smoking status: Never Smokeless tobacco: Never Vaping Use Vaping Use: Never used Substance Use Topics Alcohol use: No Drug use: Never Family History Problem Relation Age of Onset Hypertension Father other (Vascular) Son Hypertension Son ALLERGIES Allergen Reactions Darvon [Propoxyphen* Shortness of Breath, Other: See Comments No strength, bad dreams Iodine Anaphylaxis Lotensin [Benazepri* Vomiting, Other: See Comments Coughing Rivaroxaban Other: See Comments Developed pericardial effusion Shellfish Anaphylaxis Shellfish Containin* Anaphylaxis, Shortness of Breath Spironolactone Other: See Comments Weak, made calcium level high, heart rate 20BPM Adhesive Rash Amlodipine Swelling Celecoxib Other: See Comments Due to kidneys Demeral [Meperidine] Vomiting Hydrochlorothiazide Other: See Comments Metformin Other: See Comments Metoprolol Shortness of Breath Penicillins Hives Simvastatin Myalgia, Other: See Comments Sitagliptin Other: See Comments CURRENT MEDICATIONS: Current Outpatient Medications Medication Sig Dispense Refill apixaban (ELIQUIS) 5 mg tab(s) Take 1 tablet by mouth twice daily. 60 tablet 5 finerenone (KERENDIA) 10 mg tablet q 24 HR. dexAMETHasone (DECADRON) 1 mg tablet TAKE 1 TABLET BY MOUTH AT 11PM THE NIGHT BEFORE CORTISOL TEST. omega 1-nzy-wli-fish oil 360 mg-108 mg- 180 mg-1,200 mg cap q 24 HR. glimepiride (AMARYL) 2 mg tablet Take 0.5 tablets by mouth daily with breakfast. 30 tablet 1 aspirin 81 mg chewable tablet Take 1 tablet by mouth once daily. 30 tablet 1 doxazosin (CARDURA) 4 mg tablet Take 1 tablet by mouth daily at bedtime. 30 tablet 1 amLODIPine (NORVASC) 10 mg tablet Take 1 tablet by mouth once daily. 30 tablet 1 carvedilol (COREG) 25 mg tablet Take 1 tablet by mouth twice daily with meals. 60 tablet 1 vibegron (GEMTESA) 75 mg tablet Take 1 tablet by mouth once daily. olmesartan (BENICAR) 40 mg tablet Take 1 tablet by mouth once daily. 90 tablet 1 Cranberry 500 mg cap Take 1 capsule by mouth once daily. Ascorbic Acid 500 mg cpER Take by mouth once daily. 3 cinnamon bark (CINNAMON ORAL) Take by mouth. Take 2,00mg daily. lovastatin (MEVACOR) 20 mg tablet Take 20 mg by mouth daily at bedtime. cholecalciferol (VITAMIN D3) 5,000 unit tab Take 5,000 Units by mouth once daily. pantoprazole DR (PROTONIX) 40 mg tablet TAKE 1 TABLET BY MOUTH ONCE DAILY AT 6 AM 90 tablet 0 levothyroxine (SYNTHROID) 125 mcg tablet Take 125 mcg by mouth once daily. MITIGARE 0.6 mg capsule every 48 hours. latanoprost (XALATAN) 0.005 % ophthalmic solution Use 1 Drop in both eyes daily at bedtime. Current Facility-Administered Medications Medication Dose Route Frequency Provider Last Rate Last Admin perflutren lipid microspheres 1.3 mL in NaCl (PF) 0.9% 10 mL injection (DEFINITY) INTRAVENOUS DIRECTED PRBrenton Kay MD sodium chloride 0.9 % (flush) 10 mL (BD POSIFLUSH) 10 mL INTRAVENOUS DIRECTED PRN Brenton Donaldson MD REVIEW OF SYSTEMS: GENERAL: Negative for: Weight loss or gain, Fever or Chills, Weakness and Sleep difficulties. HEENT: Positive for:Glasses NECK: Negative for: Swelling, Pain, Stiffness RESPIRATORY: Positive for: Shortness of breath GASTROINTESTINAL: Negative for: Trouble swallowing, Heartburn, Change in bowel habits, Blood in stool, Dark black stools MUSCULOSKELETAL: Negtive for: + Muscle or joint pain, stiffness, Joint swelling NEUROLOGIC/PSYCHIATRIC: Negative for: Weakness, Paralysis, Numbness, Tingling, Tremor, Nervousness or anxiety, Depressed mood, Memory loss SKIN: Negative for: Rash, Itching HEMATOLOGICAL/LYMPHATIC: Positive for: Easy bruising and Easy bleeding ENDOCRINE: Negative for: Heat or Cold Intolerance, Excessive Sweating, Frequent Urination, [employer] PHYSICAL EXAMINATION: BP 187/92 Pulse (!) 55 Wt 87 kg (191 lb 12.8 oz) SpO2 98% BMI 35.08 kg/m General: Normal exam, no distress, overweight Skin: No clubbing, no cyanosis. Eyes: Extra ocular movements intact Neck: Neck veins are not distended Lungs: Chest clear to auscultation Heart: Rhythm: regular rate and rhythm, Rate: normal, +murmur Abdomen: Normal Extremities: Normal exam of the extremities, edema: Trace Peripheral Pulses: Normal CARDIOVASCULAR MEDICINE TESTING: Latest Reference Range & Units 10/07/23 13:30 10/31/23 13:57 Sodium 136 - 144 mmol/L 140 139 Potassium 3.7 - 5.1 mmol/L 5.0 4.4 Chloride 97 - 105 mmol/L 105 106 (H) CO2 22 - 30 mmol/L 26 26 BUN 7 - 21 mg/dL 42 (H) 36 (H) Creatinine 0.58 - 0.96 mg/dL 1.48 (H) 1.30 (H) Glucose 74 - 99 mg/dL 122 (H) 131 (H) Calcium 8.5 - 10.2 mg/dL 10.8 (H) 10.2 Anion Gap 9 - 18 mmol/L 9 7 (L) (H): Data is abnormally high (L): Data is abnormally low ECHO 01/29/2023: CONCLUSIONS: - Technically difficult exam due to body habitus. - Exam indication: Routine surveillance of moderate or severe valvular stenosis (>1yr) - The left ventricle is mildly dilated. Left ventricular systolic function is mildly decreased. EF = 54 5% (visual est.) - The right ventricle is normal in size. Right ventricular systolic function is normal. - The left atrial cavity is severely dilated. - The right atrial cavity is dilated. - There is moderate (2+) tricuspid valve regurgitation. - There is moderately severe aortic valve stenosis caused by restricted opening. AV area is 0.83 cm (0.45 cm /m ) by continuity, VTI. The peak gradient is 40 mmHg, the mean gradient is 22 mmHg and the dimensionless valve index is 0.27. On 2D imaging, aortic valve opening appears moderately to severely reduce. The calculated STEVE suggests severe stenosis. Prior peak/mean gradient of 29/18 mmHg. - Exam was compared with the prior echocardiographic exams. Slow, steady worsening of STEVE, AoV gradients. Clinical correlation recommended. MRI Cardiac 01/2023: IMPRESSION: - This study is limited by artifact from implantable cardiac device and indwelling leads, though adequate for interpretation. 1. No pericardial effusion or thickening. Trivial pericardial delayed enhancement, further mildly improved since last MRI. No pericardial edema and no evidence of constrictive physiology. 2. The left ventricular function is normal (55%) and size is normal (end-diastolic volume index 60 mL/m ). Again seen is subtle mid-myocardial delayed gadolinium enhancement in the basal lateral wall, which is a non-ischemic finding. 3. The right ventricle is normal in size (end-diastolic volume index 72 mL/m ) and function (50% ejection fraction). 4. Aortic valve is moderately thickened (+/-calcified) with flow acceleration across valve indicating degree of stenosis (peak velocity 2.3 m/s underestimated) - correlate with echo findings. Mild mitral thickening and regurgitaiton. - Exam was compared with the prior cardiac MR exam performed on 05/30/2022, further mild improvement of pericrdial enhancement otherwise similar findings. CE CHECK 07/2023: DUAL LEAD PACEMAKERS REMOTE EVALUATION: PRESENTING EGM: AP/VS BATTERY STATUS: Estimated time remaining to TORI is 7.6 yrs COUNTERS SINCE: 07/21/23 ATRIAL ARRHYTHMIAS: There have been 0 triggered episodes of atrial high rates VENTRICULAR ARRHYTHMIAS: There have been no ventricular detections. LEAD MEASUREMENTS: Sensing is appropriate. Review of the lead impedance trends are normal. OTHER DIAGNOSTICS: RA pacing 99.9 %. RV pacing 0.4 %. FOLLOW UP: Continue 3 month remote transmissions and yearly in-clinic interrogations. Erika Cristina RN I have personally reviewed the Laboratory Testing and Echocardiogram. COUNSELING: We discussed the following non-pharmacological measures during this visit: Smoking and alcohol abstinence/cessation, if applicable Dietary and medication compliance Monitoring daily weights and blood pressures Exercise regimen When to call our office Heart Failure Education Booklet: Previously given. Discussed red flags and when to call MD/LIDAR SCIENTIST or [facility]. Medications reconciled at end of visit: yes I spent 30 minutes in this visit, with more than 50% of the time devoted to patient counseling. SIGNATURE: Mario Moscoso APRN.CNP PATIENT NAME: Lynette Angulo DATE: November 04, 2023 TIME: 1135 documented in this encounterSelect [facility] [place] Instructions* Patient Instructions* Mario Moscoso APRN.CNP - 11/04/2023 11:47 AM EST Continue current medications as prescribed. Check blood pressure when you get home. If reading is above 150/60 mmHg, take additional 20 mg (1/2 tablet) Benicar. Monitor blood pressures the next few days 3-4 hours after you take morning medication. Call office on Friday to review. 2. Weigh yourself daily. Call me if your weight increases by 3-4 pounds in a 1-4 day period of time. 3. Continue low salt (2000 mg per day) diet. 4. Be as active as you are able. If you get tired, just stop and rest for a while. 5. Come back and see me on FridayJanuary 19 at 1200. If you have any question or concern, you can call me at [phone]. documented in this encounterSelect [facility] [place]01-09-2024 NoteHNO ID: [id number] Author: MARIO MOSCOSO APRN.CNP Service: ? Author Type: Nurse Practitioner Type: Progress Notes Filed: 10/07/2023 13:25 Note Text: Heart [facility] Vascular [facility] OUTPATIENT VISIT DATE October 07, 2023 OUTPATIENT VISIT TYPE NEW PRIMARY CARE PHYSICIAN: Jorge Benavides MD REFERRING PHYSICIAN: No referring provider defined for this encounter. CHIEF COMPLAINT: Patient presents with: Breathing Problem Leg Edema HISTORY OF PRESENT ILLNESS: Lynette Angulo is a 83 year old female who presents today for an initial visit to the Heart Failure Clinic. The patient is established with Dr. Shetty and was last seen in office 09/15. No changes made to medications. Referred to HF Clinic. Past medical history is significant for diastolic heart failure, moderate to severe aortic valve stenosis, hypertension, hyperlipidemia, sick sinus syndrome post pacemaker, pericarditis. The patient has had 2 hospital admissions in the past 12 months. The last admission was from 01/29 to 02/04 for management of hypertensive urgency. She was admitted prior to this for pericarditis which required a pericardiocentesis. She She was started on coreg, aspirin, amlodipine. Today, the patient reports feeling okay. Reports leg swelling, shortness of breath. Denies chest pain, fever, chills, dizziness, lightheadedness. States she is unable to vacuum due to shortness of breath and back pain. She does see Pain Management for knee pain. She is unsure of what her dry weight is. Tries to follow a low sodium. Reads nutrition labels but not following strict mg at this time. Follow with Nephrology Dr. Nice in [place]. Will see her again in 6 months. Has issues sleeping at night due to frequent urination. [place] and walk around however, she often stops because she feels short of breath. Lives at home with spouse. Does most of the cooking and does not add salt. Uses bipap every night. IMPRESSION: NYHA Functional Class: II Stage: C heart failure Cora Angulo is an 83 year-old female who presents to the Heart Failure Clinic to establish care. She appears hypervolemic on examination. Legs are swollen although mostly dependent. Possibly due to amlodipine. Would like to decrease amlodipine or discontinue to see if this improves leg swelling. However, due to hypertension, would need to find replacement. Suggest starting hydralazine. Will obtain BMP first to evaluate kidney function. Furthermore, discussed with patient adding SGLT2i and the benefits of this medication. Encouraged low sodium diet along with monitoring fluid intake. Will follow labs and call patient to review once resulted. Reviewed plan of care with patient. All questions answered at this time. PLAN AND RECOMMENDATIONS: ASSESSMENT/PLAN: 1. Heart failure, unspecified HF chronicity, unspecified heart failure type (HCC) - ICD9: 428.9, ICD10: I50.9 - daily weights, call office if weight increases 3-4 lbs in a 1-4 day period -2 gm low sodium diet -activity as tolerated, rest breaks as needed -continue coreg, olmesartan, amlodipine -? Start SGLT2i -BMP -follow up in 2 weeks 2. Primary hypertension - ICD9: 401.9, ICD10: I10 (primary diagnosis) -BP suboptimal during visit 146/68 mmHg -encourage DASH/low sodium diet -encourage exercise with rest breaks as needed -goal BP <130/80 mmHg -continue home BP monitoring 3. Paroxysmal atrial fibrillation (HCC) - ICD9: 427.31, ICD10: I48.0 -CHADSVASc -continue coreg for rate control -HR 53 bpm during office visit -unable to tolerate metoprolol -continue eliquis for stroke prophylaxis Follow up appointment with Dr. Shetty 04/03/2024 PAST MEDICAL HISTORY Diagnosis Date Atrial fibrillation (HCC) Atrial flutter (HCC) Bradycardia Cancer (HCC) thyroid Chronic kidney disease Diabetes (HCC) Dyslipidemia Gout Heart attack (HCC) Hypercholesteremia Hypertension Pericardial effusion Recurrent UTI Sleep apnea Thyroid disease PAST SURGICAL HISTORY Procedure Laterality Date APPENDECTOMY HX CATARACT SURGERY, COMPLEX HYSTERECTOMY HX PPM DUAL 2018 THYROIDECTOMY TOTAL/COMPLETE Parathyroid removal TOTAL KNEE REPLACEMENT Left x2- one revision Social History Tobacco Use Smoking status: Never Smokeless tobacco: Never Vaping Use Vaping Use: Never used Substance Use Topics Alcohol use: No Drug use: Never FAMILY HISTORY Problem Relation Age of Onset Hypertension Father other (Vascular) Son Hypertension Son ALLERGIES Allergen Reactions Darvon [Propoxyphen* Shortness of Breath, Other: See Comments No strength, bad dreams Iodine Anaphylaxis Lotensin [Benazepri* Vomiting, Other: See Comments Coughing Rivaroxaban Other: See Comments Developed pericardial effusion Shellfish Anaphylaxis Shellfish Containin* Anaphylaxis, Shortness of Breath Spironolactone Other: See Skinnyen (more content not included)...[facility] Discharge summary Author Jocelyn Verde [facility] September 25, 2023 3:04pm Note Date/Time September 25, 2023 3:04pm [facility] Physical Therapy [facility] [facility] [place] [address] / REHABILITATION SERVICES DISCHARGE SUMMARY MR#: [id number] Acct: [id number] Name: LYNETTE ANGULO Rep #: [id number] : 1940 83 From: Jocelyn Verde T Referring Dr.: Dr. Keith Rodrigez MD Status: REG RCR Insurance: MEDICARE PART A B ANTH Discharge Summary D/C summary: It has been my pleasure to treat LYNETTE ANGULO referred by Dr. Keith Rodrigez MD, with the diagnosis of L TKR and revision and pain in L knee for a total of 40 visit(s). Discharge Date: 09/25/23 Please see the following information for a summary of their discharge status. Subjective Subjective: Pt reports that some of her swelling is down in her feet and she canget her Haydudes back on. She is still a little SOB but no pains and she sees her heart Dr next week. She does not feel that she needs to move her Dr appt up. She reports that she also has a little stuffy nose. Pain L knee pain: Pain Intensity (Out of 10): 3 Overall Improvement % Improvement: 80 Objective Objective/Function: LE MMT: R hip flex 14.5 and L 9.7 R knee ext 20.9 and L 22.2 R knee flex 15.8 and L 13.4 ROM remains the same Goals Goal 1:: I HEP Goal Progress: Goal Met Goal 2:: Increase L knee AROM (at the time of the eval L knee AROM: -3 to 110 degrees R knee AROM: 0-110) Goal Progress: Progressing Goal 3:: Increase L LE strength (at the time of the eval: LE MMT: R hip flex 14.5 and L 9.7 R knee ext 17.6 and L 10.6 R knee flex 13.4 and L 8.9 Goal Progress: Progressing Goal 4:: Be able to go up and down stairs recip without having to use the UE to pull self up on the L Goal Progress: Progressing Goal 5:: Be able to walk with increase stride length and more upright posture Goal Progress: Progressing Plan Plan: DC PT to HEP D/C Information Discharge Comments: DC PT to HEP d/c sentence: If there are questions or concerns regarding this patient's physical therapy, please feel free to call me at [phone]. Thank you for the referral of thispatient. Sincerely, Jocelyn Verde, SARABJIT Balance/Gait/Functional tests Balance/Special Test Scores Lower Extremity Functional Score: 35 Improvement % Improvement: 80 <Electronically signed by Jocelyn Verde MPT> 09/25/23 1504 CC: Dr. Jorge Benavides MD; Dr. Keith Rodrigez MD ~ Signed [facility] Work Phone: [phone] NoteHNO ID: [id number] Author: Sandy Shetty, DO Service: ? Author Type: Physician Type: Progress Notes Filed: 09/15/2023 1:12 PM Note Text: [facility] SECTION OF REGIONAL CARDIOLOGY [facility] OUTPATIENT VISIT DATE September 15, 2023 PRIMARY CARE PHYSICIAN: Jorge Benavides [address] [place] [address] HISTORY OF PRESENT ILLNESS: Ms. Angulo is a 83 year old female. The patient presents to establish care due to history of multiple cardiac comorbidities including aortic stenosis, chronic diastolic heart failure, paroxysmal atrial fibrillation, sick sinus syndrome status post perm pacemaker and previous pericarditis. Despite such the patient is doing well. She has recovered from pericarditis and has been placed back on oral anticoagulation as her pericarditis caused a bloody pericardial effusion. She has dyspnea occurring on exertion abating with rest which may be multifactorial. She denies chest discomfort, orthopnea, paroxysmal nocturnal dyspnea, palpitations, near-syncope or syncope. The patient is remarried and lives at home with her spouse of 5 years. She is a non-smoker, nondrinker. She tries to eat reasonably heart healthy meals. She does not exercise on a regular basis but receives physical therapy twice a week due to knee pain as result of previous intervention on her left knee. Cardiac risk factors: Age, gender, hypertension, hyperlipidemia Impression: 1. Moderate to severe aortic valve stenosis by recent echocardiography 2. Dyspnea on exertion 3. Chronic diastolic heart failure 4. History of paroxysmal atrial fibrillation 5. Hypertension 6. Hyperlipidemia 7. History of pericarditis 8. Sick sinus syndrome status post perm pacemaker 9. Long-term anticoagulation with Eliquis PLAN AND RECOMMENDATIONS: The patient will need her echocardiogram updated in the summer with follow-up thereafter. It appears as though her pericarditis is thankfully resolved and she remains back on oral anticoagulation without difficulty. Recent device interrogation demonstrates normal functioning with no elevated heart rate episodes to suggest paroxysms of atrial fibrillation. The patient has dyspnea which may be multifactorial but may be a result of diastolic heart failure. We will have her evaluated through the local heart failure clinic. Heart rate, blood pressure and recent cholesterol profile are otherwise favorable. We have therefore made no additions or changes at this time. Dietary and lifestyle education was reemphasized to facilitate risk factor reduction and heart failure prevention. Will look forward to reevaluate her in 6 months time regardless. Vitals: BP 130/80 Pulse (!) 58 Ht 157.5 cm (5' 2) Wt 90 kg (198 lb 6.6 oz) SpO2 98% BMI 36.29 kg/m? Physical Exam Vitals reviewed. Constitutional: General: She is not in acute distress. Appearance: Normal appearance. She is well-developed. HENT: Head: Normocephalic and atraumatic. Nose: Nose normal. Eyes: General: No scleral icterus. Right eye: No discharge. Left eye: No discharge. Pupils: Pupils are equal, round, and reactive to light. Neck: Thyroid: No thyromegaly. Vascular: No carotid bruit or JVD. Cardiovascular: Rate and Rhythm: Normal rate and regular rhythm. Heart sounds: Murmur heard. Crescendo decrescendo systolic murmur is present with a grade of 2/6. No friction rub. No gallop. Pulmonary: Effort: Pulmonary effort is normal. No respiratory distress. Breath sounds: Normal breath sounds. No wheezing or rales. Abdominal: General: Bowel sounds are normal. Palpations: Abdomen is soft. Musculoskeletal: General: Normal range of motion. Cervical back: Normal range of motion and neck supple. Skin: General: Skin is warm and dry. Capillary Refill: Capillary refill takes less than 2 seconds. Coloration: Skin is not pale. Neurological: Mental Status: She is alert and oriented to person, place, and time. Cranial Nerves: No cranial nerve deficit. Psychiatric: Behavior: Behavior normal. Thought Content: Thought content normal. Judgment: Judgment normal. Review of Systems Constitutional: Negative for activity change and fatigue. HENT: Negative for ear pain and facial swelling. Eyes: Negative for pain and discharge. Respiratory: Positive for shortness of breath. Negative for chest tightness. Cardiovascular: Negative for chest pain, palpitations and leg swelling. Gastrointestinal: Negative for abdominal pain, blood in stool, nausea and vomiting. Endocrine: Negative for cold intolerance and heat intolerance. Genitourinary: Negative for frequency and hematuria. Musculoskeletal: Negative for arthralgias and gait problem. Skin: Negative for color change, pallor and rash. Allergic/Immunologic: Negative for immunocompromised state. Neurological: Negative for dizziness, syn (more content not included)...[id number] Miscellaneous Notes* Telephone Encounter - Lynda Moeller RN - 06/24/2023 11:04 AM EDT Returned patient's call. documented in this encounterSelect [facility] [place]09-20-2023 Miscellaneous Notes* Telephone Encounter - Elena Bernstein RN - 06/18/2023 4:39 PM EDT Returned call, no answer, left message stating to start eliquis, per Dr Gregory. Elena Bernstein RN * Telephone Encounter - Ivy Starr - 06/18/2023 2:44 PM EDT Patient returning call from Elena. Patient can be reached at [phone] documented in this encounterSelect Medical [facility] [place]09-20-2023 Miscellaneous Notes* Telephone Encounter - Elena Bernstein RN - 06/18/2023 2:19 PM EDT Called patient, no answer, left message. Per Dr Angulo: Please let patient know that I touched base with Dr. Hoffman and we will go ahead and start her on Eliquis. I sent in the prescription for 5mg PO bid, which is the right dose for her age/weight/renal function. However, if her renal function worsens in the future (it has been a bit labile), we will need to lower the dose of Eliquis down the road. Thanks. Rik Bernstein RN * Telephone Encounter - Marla Barney - 06/12/2023 4:25 PM EDT June 12, 2023 Patient Contact Number: [phone] (home) [phone] (cell) Patient last seen within the last year Yes Reason For Call: Medication Issue/Question: Patient is calling. She is following up on if she should be starting Eliquis. She also wanted to know if she could do her pacemaker checks at either [facility] or [facility], would they besent to Dr. Gregory. Please call and advise Marla documented in this encounterSelect Medical [facility], [place]09-18-2023 Miscellaneous Notes* Telephone Encounter - Lacho Tong RN - 06/16/2023 4:30 PM EDT Called and spoke with patient regarding her follow up care. documented in this encounterSelect [facility] [place]09-11-2023 History of Present illness Narrative* Rik Gregory MD - 06/09/2023 1:46 PM EDT Images from the original note were not included. [facility] [place] [facility] Department of Cardiovascular Medicine SECTION OF CARDIAC PACING and ELECTROPHYSIOLOGY OUTPATIENT VISIT DATE June 09, 2023 OUTPATIENT VISIT TYPE CONSULTATION PRIMARY CARE PHYSICIAN: Noris Youngblood [address] [facility] [address] [place] [address] REFERRING PHYSICIAN Garth Hoffman MD [address] [facility] [address] CHIEF COMPLAINT: AF PPM HISTORY OF PRESENT ILLNESS/NURSING INTAKE NOTE Cardiac EP consultation at the request of Dr. Garth Hoffman.A copy of this consultation note will be provided to the requesting physician by way of shared Medical record or letter to requesting physician via US mail. Ms. Angulo is an 83 year old female who is seen today for device and arrhythmia management. She has a PMH of HTN, pericarditis and pericardial effusion requiring pericardiocentesis, DM, AF dx 2017, sleep apnea on CPAP, CKD, SSS s/p PPM 2017 and . She reportedly had an MS 12/01/2022 with heart cathbut no PCI. She was readmitted in January from an outpatient appointment for and hypertension. Her burden of AF has recently increased to 6.6%. Her anticoagulation was stopped in the past due to her pericardial effusion and epistaxis requiring cautery. She denies chest pain, orthopnea, cough, palpita tions, PND, lightheadedness or syncope. She does have some fatigue and activity intolerance. CHADS VASC: 6 (age, female, DM, HTN, MS) PAST MEDICAL HISTORY Diagnosis Date Atrial fibrillation (HCC) Atrial flutter (HCC) Bradycardia Cancer (HCC) thyroid Chronic kidney disease Diabetes (HCC) Dyslipidemia Gout Heart attack (HCC) Hypercholesteremia Hypertension Pericardial effusion Recurrent UTI Sleep apnea Thyroid disease PAST SURGICAL HISTORY Procedure Laterality Date APPENDECTOMY HX CATARACT SURGERY, COMPLEX HYSTERECTOMY HX PPM DUAL 2018 THYROIDECTOMY TOTAL/COMPLETE Parathyroid removal TOTAL KNEE REPLACEMENT Left x2- one revision SOCIAL HISTORY Social History Tobacco Use Smoking status: Never Smokeless tobacco: Never Vaping Use Vaping Use: Never used Substance Use Topics Alcohol use: No Drug use: Never FAMILY HISTORY Problem Relation Age of Onset Hypertension Father other (Vascular) Son Hypertension Son ALLERGIES: ALLERGIES Allergen Reactions Darvon [Propoxyphen* Shortness of Breath, Other: See Comments No strength, bad dreams Iodine Anaphylaxis Lotensin [Benazepri* Vomiting, Other: See Comments Coughing Rivaroxaban Other: See Comments Developed pericardial effusion Shellfish Anaphylaxis Shellfish Containin* Anaphylaxis, Shortness of Breath Spironolactone Other: See Comments Weak, made calcium level high, heart rate 20BPM Adhesive Rash Amlodipine Swelling Celecoxib Other: See Comments Due to kidneys Demeral [Meperidine] Vomiting Hydrochlorothiazide Other: See Comments Metformin Other: See Comments Metoprolol Shortness of Breath Penicillins Hives Simvastatin Myalgia, Other: See Comments Sitagliptin Other: See Comments MEDICATIONS: finerenone (KERENDIA) 10 mg tablet^q 24 HR.^Disp: ^Rfl: omega 9-lie-ymo-fish oil 360 mg-108 mg- 180 mg-1,200 mg cap^q 24 HR.^Disp: ^Rfl: glimepiride (AMARYL) 2 mg tablet^Take 0.5 tablets by mouth daily with breakfast.^Disp: 30 tablet^Rfl: 1 aspirin 81 mg chewable tablet^Take 1 tablet by mouth once daily.^Disp: 30 tablet^Rfl: 1 doxazosin (CARDURA) 4 mg tablet^Take 1 tablet by mouth daily at bedtime.^Disp: 30 tablet^Rfl: 1 amLODIPine (NORVASC) 10 mg tablet^Take 1 tablet by mouth once daily.^Disp: 30 tablet^Rfl: 1 carvedilol (COREG) 25 mg tablet^Take 1 tablet by mouth twice daily with meals.^Disp: 60 tablet^Rfl:1 vibegron (GEMTESA) 75 mg tablet^Take 1 tablet by mouth once daily.^Disp: ^Rfl: olmesartan (BENICAR) 40 mg tablet^Take 1 tablet by mouth once daily.^Disp: 90 tablet^Rfl: 1 Cranberry 500 mg cap^Take 1 capsule by mouth once daily.^Disp: ^Rfl: Ascorbic Acid 500 mg cpER^Take by mouth once daily.^Disp: ^Rfl: 3 cinnamon bark (CINNAMON ORAL)^Take by mouth. Take 2,00mg daily.^Disp: ^Rfl: lovastatin (MEVACOR) 20 mg tablet^Take 20 mg by mouth daily at bedtime.^Disp: ^Rfl: cholecalciferol (VITAMIN D3) 5,000 unit tab^Take 5,000 Units by mouth once daily.^Disp: ^Rfl: pantoprazole DR (PROTONIX) 40 mg tablet^TAKE 1 TABLET BY MOUTH ONCE DAILY AT 6 AM^Disp: 90 tablet^Rfl: 0 levothyroxine (SYNTHROID) 125 mcg tablet^Take 125 mcg by mouth once daily.^Disp: ^Rfl: MITIGARE 0.6 mg capsule^every 48 hours.^Disp: ^Rfl: latanoprost (XALATAN) 0.005 % ophthalmic solution^Use 1 Drop in both eyes daily at bedtime.^Disp: ^Rfl: dexAMETHasone (DECADRON) 1 mg tablet^TAKE 1 TABLET BY MOUTH AT 11PM THE NIGHT BEFORE CORTISOL TEST.^Disp: ^Rfl: REVIEW OF SYSTEMS: General, constitutional: Weight loss or gain- y, Fever or chills-No, Weakness-y, Trouble sleeping-y. Head, Eyes, Ears, Mouth: Headache, head injury-No, Glasses or contact lenses-y, Pain-No, Impaired vision-No, Decreased hearing-No, Ringing in ears-No, Nose bleeds-No, Dental difficulties-No, Bleedinggums-No, Dentures-No. Neck: Swelling-No, Pain-No, Stiffness-No. Respiratory: Cough-No, Spitting up blood-No, Shortness of breath-y, Wheezing or asthma-No. Musculoskeletal: Muscle or joint pain or stiffness-y, Joint swelling-y. Gastrointestinal: Difficulty swallowing-No, Heartburn-No, Change in bowel habits-No, Blood in stool, Dark black stools-No. Neurological/Psychiatric: Weakness, paralysis-No, Numbness-No, Tingling-No, Tremor-No, Nervousness or anxiety-No, Depressed mood-No, Memory loss-No. Skin: Rash-No, Itching-No. Hematological: Easy bruising-y, Easy bleeding-No. Endocrine: Heat or cold intolerance-y, Excessive sweating-No, Frequent urination-No, Frequent thirst-No. Lisa Matos RN PHYSICAL EXAMINATION: BP 130/78 Pulse 61 Ht 157.5 cm (5' 2) Wt 84.3 kg (185 lb 12.8 oz) BMI 33.98 kg/m General: Well appearing, in no acute distress, speaking in complete sentences. Skin: No clubbing, no cyanosis. PPM pocket is well-healed. Neck: no jugular venous distention, Lungs: Clear to auscultation bilaterally, no wheezing or rhonchi. Heart: Regular rhythm, PMI not displaced, S1, S2 normal, no S3, no S4, no heaves, no rub and 3/6 KULDIP. Abdomen: Soft, nontender, bowel sounds normal, no palpable organomegaly, no bruits. Extremities: No peripheral edema . Grade 2/4 distal pulses bilaterally. Neuro: Oriented to person, place and time, alert, cooperative, using a wheelchair around the hospital. CARDIOVASCULAR MEDICINE TESTING: Electrocardiogram: AP/VS with one PVC, mean ventricular rate of 61 bpm. LBBB- like IVCD with L axis deviation. Prolonged atrial S-QRS interval (~300ms). DUAL LEAD PACEMAKER EVALUATION 06/09/2023 PRESENTS FOR: Office visit with Dr. Gregory. Establishing with Dr. Gregory. PRESENTING EGM: AP/VS UNDERLYING RHYTHM: Rare atrial beats at AAI 30 bpm. AP with good VS conduction. BATTERY STATUS: Estimated time remaining to TORI is 8.5 yrs. COUNTERS SINCE: 02/10/2023 ATRIAL ARRHYTHMIAS: There were 8 triggered episodes of atrial high rates with sampled EGMs showing AF. Longest lasting >99 hours. Total time 6.6%. Anticoagulants listed: was on Xarelto, however had to stop r/t severe epistaxis episodes, no AC at this time, ASA only. VENTRICULAR ARRHYTHMIAS: There have been 1 ventricular detections since the last evaluation. EGM shows NSVT. LEAD MEASUREMENTS: Capture and sensing are appropriate. The pacing outputs maintain safety margin. Review of the lead impedance trends are normal. IMPLANT SITE/ SYMPTOMS: The incision and pocket are pain-free (0/10), well healed and without signsof erosion or infection. OTHER DIAGNOSTICS: RA pacing 93.5% and RV pacing 6.6% PROGRAMMING CHANGES MADE TODAY: None FOLLOW UP: Pt requests to transfer remotes into [facility]. Request made in [employer]. Hayde Dumont RN NOTE TO PROVIDERS: CARD Flowsheets contain detailed device programming and testing data. Paceart/Interrogation PDF can be found under CARDIAC DATA AND REPORT, Scanned Documents section. Last ECHO Result Conclusion ECHO Collected: 01/29/2023 4:00 PM (Final result) Impression: CONCLUSIONS: - Technically difficult exam due to body habitus. - Exam indication: Routine surveillance of moderate or severe valvular stenosis (>1yr) - The left ventricle is mildly dilated. Left ventricular systolic function is mildly decreased. EF = 54 5% (visual est.) - The right ventricle is normal in size. Right ventricular systolic function is normal. - The left atrial cavity is severely dilated. - The right atrial cavity is dilated. - There is moderate (2+) tricuspid valve regurgitation. - There is moderately severe aortic valve stenosis caused by restricted opening. AV area is 0.83 cm (0.45 cm /m ) by continuity, VTI. The peak gradient is 40 mmHg, the mean gradient is 22 mmHg and the dimensionless valve index is 0.27. On 2D imaging, aortic valve opening appears moderately to severely reduce. The calculated STEVE suggests severe stenosis. Prior peak/mean gradient of 29/18 mmHg. - Exam was compared with the prior CC echocardiographic exams. Slow, steady worsening of STEVE, AoV gradients. Clinical correlation recommended. * * * Final * * * Last EKG Result Conclusion ECG COMPLETE Collected: 06/09/2023 12:43 PM (Preliminary result) Impression: ATRIAL-PACED RHYTHM WITH PROLONGED AV CONDUCTION WITH OCCASIONAL VENTRICULAR-PACED COMPLEXES LEFT AXIS DEVIATION NONSPECIFIC INTRAVENTRICULAR BLOCK MINIMAL VOLTAGE CRITERIA FOR LVH, MAY BE NORMAL VARIANT ( Salvador product ) LATERAL MYOCARDIAL INFARCTION , AGE UNDETERMINED INFERIOR MYOCARDIAL INFARCTION , AGE UNDETERMINED ABNORMAL ECG Last MRI Result Conclusion MRI CARDIAC VELOCITY FLOW MAP Exam End: 03/24/2023 11:11 AM (Final result) Impression: IMPRESSION: - This study is limited by artifact from implantable cardiac device and indwelling leads, though adequate for interpretation. 1. No pericardial effusion or thickening. Trivial pericardial delayed enhancement, further mildly improved since last MRI. No pericardial edema and no evidence of constrictive physiology. 2. The left ventricular function is normal (55%) and size is normal (end-diastolic volume index 60 mL/m ). Again seen is subtle mid-myocardial delayed gadolinium enhancement in the basal lateral wall, which is a non-ischemic finding. 3. The right ventricle is normal in size (end-diastolic volume index 72 mL/m ) and function (50% ejection fraction). 4. Aortic valve is moderately thickened (+/-calcified) with flow acceleration across valve indicating degree of stenosis (peak velocity 2.3 m/s underestimated) - correlate with echo findings. Mild mitral thickening and regurgitaiton. - Exam was compared with the prior cardiac MR exam performed on 05/30/2022, further mild improvement of pericrdial enhancement otherwise similar findings. * * * Final * * * RP Customer Engagement Specialist: [employer] Transcribe Date/Time: Mar 24 2023 9:59A Dictated by : YOAV ADLER MD This examination was interpreted and the report reviewed and electronically signed by: YOAV ADLER MD on Mar 24 2023 3:03PM EST Stress Test 02/11/2022 CONCLUSIONS: 1. SPECT Perfusion Study: Normal. 2. There is no scintigraphic evidence for inducible ischemia. 3. No evidence of scarred myocardium. 4. Left ventricle is normal in size. The left ventricle systolic function is normal. 5. Right ventricle is normal in size. The right ventricle systolic function is normal. 6. This is a low risk scan. Gated Stress FBP Gated Rest FBP LVEF % 62 62 I have personally reviewed the Electrocardiogram, Laboratory Testing, Echocardiogram, Stress Test: Nuclear (Non-PET), Cardiac MRI, and Device Check. IMPRESSION: Ms. Angulo is an 83 year old female with a history of HTN, pericarditis and pericardial effusion requiring pericardiocentesis, DM, AF dx 2017, sleep apnea on CPAP, CKD, SSS s/p PPM 2018 and . She has a dcPPM placed for SSS - the device is functioning appropriately and is mostly A-pacing. Her KY interval is prolonged (stim to QRS about 300ms) and she has an LBBB-like IVCD, but I do not think shortening the AV delay would be beneficial (similarly, a RELIEF MAN upgrade is not indicated at this time). Importantly, she also has AF and is not currently anticoagulated for several reasons: first, her acute bout of pericarditis in 2019 was judged to be hemorrhagic/driven by Xarelto. Second, she has also had frequent epistaxis in the past, albeit this has now been addressed with multiple cauterizations. We discussed our management options going forward. One possibility is to empirically restart oral anticoagulation (likely Eliquis/Pradaxa) and then perform surveillance TTEs. Alternatively, we could consider placing an LAAO device (e.g. Watchman). We reviewed the logistics/risks/benefits of both options and all questions were answered. She is leaning toward re-attempting therapeutic anticoagulation. I will first confer with Dr. Hofmfan on this before prescribing a blood thinner. Of note, given her relatively low overall AF burden, mild symptoms and present lack of anticoagulation, I do not think we should pursue rhythm control (AADs vs ablation). PLAN AND RECOMMENDATIONS: -See above. -Follow-up with me in the office in 12 months or sooner, if needed. Rik Gregory MD I personally interviewed, confirmed and edited the above information as obtained by others. CONTACT INFORMATION: Rik Gregory MD, PHD Medical Decision Making: Problems: Moderate: 2+ stable chronic illnesses Data: Unique test result(s) reviewed: 3+ Risk: Moderate: Moderate risk from testing/treatment and Drug management Medical Decision Making Level: 4 - Moderate [facility] [place] Miscellaneous Notes* Telephone Encounter - Deepak Best APRN.CNP - 05/16/2023 9:44 AM EDT 83 year old female with a PMH significant for pericarditis, hypertension, type 2 diabetes mellitus,stage 4 chronic kidney disease, SSS (status post DC-PM), aortic stenosis. Patient requests today's visit to review medications. Reports home BP is controlled. She reports today her primary complaint is fatigue. Hypertension, stage 4 CKD, proteinuria: reports well controlled BP at home 120/70-130/80 consistently on validated omron brachial style monitor. Notes BP tends to be higher at office visits, ?white coat? Home BP monitoring, call if BP >130/80 Current regimen: Amlodipine 10 mg olmesartan 40 mg nightly Coreg 25 mg BID Doxazosin 4 mg nightly PLAN: -Continue current regimen. 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 PIPELINE OPERATOR documented in [facility] [place] Evaluation note* Diagnosis Chronic pericarditis, unspecified complication status, unspecified type- Primary Stage 3a chronic kidney disease (HCC) Hypertensive heart and chronic kidney disease with heart failure and stage 1 through stage 4 chronic kidney disease, or unspecified chronic kidney disease (HCC) Aortic stenosis Aortic valve disorders documented in this encounter [facility] [place] History of Present illness Narrative* Garth Hoffman MD - 05/14/2023 4:53 PM EDT Images from the original note were not included. [facility] [place] [facility] Department of Cardiovascular Medicine PERICARDIAL CENTER OUTPATIENT VISIT DATE May 14, 2023 OUTPATIENT VISIT TYPE Established REFERRING PHYSICIAN No referring provider defined for this encounter. PCP: [id number] [facility] [address] [facility] [id number] [place]: Dr. Hoffman CHIEF COMPLAINT: follow up Lynette Angulo was last seen in Pericardial Clinic with Dr. Hoffman on January 29, 2023 for pericarditis. Recommendations were: - Continue colchicine 0.6 mg every other day -Aspirin 81 mg/day -inflammatory markers when chest pain or other pericardial symptoms - Follow up with the water tanker driver to control the blood pressure. -ECHO January 2023 showed severe as per the calculated STEVE, while the dimensionless index and transaortic gradients suggest moderate aortic stenosis -close follow up needed -discussed about potential TAVR if needed in future HISTORY OF PRESENT ILLNESS: Ms. Angulo is a 82 year old female with PMHx of SSS s/p PPM, pAF, HFpEF, HTN, DM2, CKD. She states she had MS on 12/01/22. She was treated at [facility]. [facility] completed. No PCI. Patient came to [facility] for MRI in January and was found to have elevated blood pressures and was subsequently admitted. During the admission her blood pressures were very labile and medications were adjusted accordingly. She was found to have UTI and was discharged home on oral antibiotics to finish the course. Also had POLY on CKD and medications were adjusted at the time. She presents today for follow-up. States that she feels short of breath with dressing and cooking but attributes that to back pain. States she can walk comfortably on even surface. Denies any chest pain, cough, palpitations, dizziness, orthopnea, PND. She has swelling in the legs which is chronic. PAST PERICARDIAL DISEASE AND CARDIAC HISTORY: 80 year old female with PMH of HTN, CKD 3, AF, and SSS s/p PPM 06/2018 who presented to OSH ED due to 2 weeks of severe fatigue and weakness. CT C/A/P showed bilateral pleural effusions, large pericardial effusion, ascites. Formal echo showed moderate pericardial effusion 2.7 cm with some respiratory variation but no signs of tamponade. Pt was transferred to [facility] for further management of pericardial effusion. Upon arrival to [facility], patient was admitted to [facility]. Her SBP was in 80s and pt was SOB requiring oxygen. Bedside echo showed pre-tamponade physiology (plethoric IVC and cardiac oscillation; difficult toassess respiratory variation in mitral/tricuspid inflow velocities due to Afib, no diastolic chamber collapse) so patient was transferred to CICU. In CICU, SBP 90s-100s. Pt appears comfortable and isnot SOB. Labs show Na 124, Cr 2.24, AST 1250 and ALT 1185, BNP 2538. USCRP 150.6. Lactate 2.32 --> 2.2. Given 1L LR bolus. She underwent pericardiocentesis with 960 mL bloody output. Pericardial fluid cytology was completed which was negative for AFB or organisms. LFTs remained elevated for which a liver US was completed that was not consistent with cholecystitis. Decision was made to completecardiac MRI which was inconclusive due to dye injection malfunction. ASA and colchicine were continued. A cardiac MRI was repeated due to prior findings which showed moderate circumferential pericardial delayed enhancement - most prominent anteriorly, consistent with pericardial inflammation. Additionally there was mild focal epicardial delayed enhancement of the mid-lateral LV suggestive of mildmyocardial inflammation. Patient was determined to be stable for discharge on colchicine, prednisone, and aspirin with plan for follow up with Dr Hoffman CURRENT MANAGEMENT: Her current pericardial medication include: Single Colchicine Possible side effects of pericardial medications: none INFLAMMATORY MARKERS: WSR: 22 / Date: 05/14/23 and CRP: pending / Date: 05/14/23 OTHER LABS: pending ALLERGIES: Darvon [Propoxyphene Hcl], Iodine, Lotensin [Benazepril Hcl], Rivaroxaban, Shellfish, Shellfish Containing Products, Spironolactone, Adhesive, Amlodipine, Celecoxib, Demeral [Meperidine], Hydrochlorothiazide, Metformin, Metoprolol, Penicillins, Simvastatin, and Sitagliptin Current Outpatient Medications Medication Sig finerenone (KERENDIA) 10 mg tablet q 24 HR. dexAMETHasone (DECADRON) 1 mg tablet TAKE 1 TABLET BY MOUTH AT 11PM THE NIGHT BEFORE CORTISOL TEST. omega 9-cxe-cil-fish oil 360 mg-108 mg- 180 mg-1,200 mg cap q 24 HR. glimepiride (AMARYL) 2 mg tablet Take 0.5 tablets by mouth daily with breakfast. aspirin 81 mg chewable tablet Take 1 tablet by mouth once daily. doxazosin (CARDURA) 4 mg tablet Take 1 tablet by mouth daily at bedtime. amLODIPine (NORVASC) 10 mg tablet Take 1 tablet by mouth once daily. carvedilol (COREG) 25 mg tablet Take 1 tablet by mouth twice daily with meals. vibegron (GEMTESA) 75 mg tablet Take 1 tablet by mouth once daily. olmesartan (BENICAR) 40 mg tablet Take 1 tablet by mouth once daily. Cranberry 500 mg cap Take 1 capsule by mouth once daily. Ascorbic Acid 500 mg cpER Take by mouth once daily. cinnamon bark (CINNAMON ORAL) Take by mouth. Take 2,00mg daily. lovastatin (MEVACOR) 20 mg tablet Take 20 mg by mouth daily at bedtime. cholecalciferol (VITAMIN D3) 5,000 unit tab Take 5,000 Units by mouth once daily. pantoprazole DR (PROTONIX) 40 mg tablet TAKE 1 TABLET BY MOUTH ONCE DAILY AT 6 AM levothyroxine (SYNTHROID) 125 mcg tablet Take 125 mcg by mouth once daily. MITIGARE 0.6 mg capsule every 48 hours. latanoprost (XALATAN) 0.005 % ophthalmic solution Use 1 Drop in both eyes daily at bedtime. indapamide (LOZOL) 2.5 mg tablet Take 1 tablet by mouth once daily. (Patient not taking: Reported on 05/14/2023) Current Facility-Administered Medications Medication Dose Route Frequency perflutren lipid microspheres 1.3 mL in NaCl (PF) 0.9% 10 mL injection (DEFINITY) INTRAVENOUS DIRECTED PRN sodium chloride 0.9 % (flush) 10 mL (BD POSIFLUSH) 10 mL INTRAVENOUS DIRECTED PRN perflutren lipid microspheres 1.3 mL in NaCl (PF) 0.9% 10 mL injection (DEFINITY) INTRAVENOUS DIRECTED PRN sodium chloride 0.9 % (flush) 10 mL (BD POSIFLUSH) 10 mL INTRAVENOUS DIRECTED PRN PAST MEDICAL HISTORY Diagnosis Date Bradycardia Cancer (HCC) thyroid Diabetes (HCC) Dyslipidemia Gout Hypercholesteremia Hypertension Pericardial effusion Recurrent UTI Thyroid disease PAST SURGICAL HISTORY Procedure Laterality Date APPENDECTOMY HX CATARACT SURGERY, COMPLEX HYSTERECTOMY HX THYROIDECTOMY TOTAL/COMPLETE Parathyroid removal TOTAL KNEE REPLACEMENT Left x2- one revision Social History Tobacco Use Smoking status: Never Smokeless tobacco: Never Vaping Use Vaping Use: Never used Substance Use Topics Alcohol use: No Drug use: Never FAMILY HISTORY Problem Relation Age of Onset Hypertension Father other (Vascular) Son Hypertension Son REVIEW OF SYSTEMS: Negative unless mentioned in HPI PHYSICAL EXAM: BP 158/86 Pulse 57 Ht 5' 2 (1.58m) Wt 179 lb (81.2kg) SpO2 100% BMI 32.73 kg/(m^2). Pulsus paradoxus: No General: Appears well nourished. In no acute distress: No Obese. Skin: No clubbing. No cyanosis. Eyes: EOMI. Oropharynx: Teeth in good repair. Neck: Supple, no JVD, No Kussmaul's sign , no carotid bruits, carotids have a normal upstroke, no thyromegaly. Lungs: Clear to auscultation bilaterally. Heart: Regular rate and rhythm. PMI 5th ICS LMCL, S1nl, S2nl. No rub No knock, heart murmur Systolic ejection murmur Abdomen: Soft, non-tender, BS normal, no organomegaly, no bruits. No Ascites Extremities: No peripheral edema bilaterally. Grade 2/4 distal pulses bilaterally. Neuro: Oriented x3, alert, cooperative, reflexes normal, CN II-XII grossly intact, gait coordinated. CURRENT STUDIES: Last ECHO Result Conclusion ECHO Collected: 01/29/2023 4:00 PM (Final result) Impression: CONCLUSIONS: - Technically difficult exam due to body habitus. - Exam indication: Routine surveillance of moderate or severe valvular stenosis (>1yr) - The left ventricle is mildly dilated. Left ventricular systolic function is mildly decreased. EF = 54 5% (visual est.) - The right ventricle is normal in size. Right ventricular systolic function is normal. - The left atrial cavity is severely dilated. - The right atrial cavity is dilated. - There is moderate (2+) tricuspid valve regurgitation. - There is moderately severe aortic valve stenosis caused by restricted opening. AV area is 0.83 cm (0.45 cm /m ) by continuity, VTI. The peak gradient is 40 mmHg, the mean gradient is 22 mmHg and the dimensionless valve index is 0.27. On 2D imaging, aortic valve opening appears moderately to severely reduce. The calculated STEVE suggests severe stenosis. Prior peak/mean gradient of 29/18 mmHg. - Exam was compared with the prior echocardiographic exams. Slow, steady worsening of STEVE, AoV gradients. Clinical correlation recommended. * * * Final * * * Last EKG Result Conclusion ECG COMPLETE Collected: 01/29/2023 12:17 PM (Final result) Impression: ATRIAL-PACED RHYTHM WITH PROLONGED AV CONDUCTION LEFT AXIS DEVIATION COMPLETE LEFT BUNDLE BRANCH BLOCK ABNORMAL ECG 1220 Confirmed by TIM GERBER, [id number]), editor in chief HARJINDER CORNEJO [id number]) on 01/31/2023 10:31:11 AM Last MRI Result Conclusion MRI CARDIAC VELOCITY FLOW MAP Exam End: 03/24/2023 11:11 AM (Final result) Impression: IMPRESSION: - This study is limited by artifact from implantable cardiac device and indwelling leads, though adequate for interpretation. 1. No pericardial effusion or thickening. Trivial pericardial delayed enhancement, further mildly improved since last MRI. No pericardial edema and no evidence of constrictive physiology. 2. The left ventricular function is normal (55%) and size is normal (end-diastolic volume index 60 mL/m ). Again seen is subtle mid-myocardial delayed gadolinium enhancement in the basal lateral wall, which is a non-ischemic finding. 3. The right ventricle is normal in size (end-diastolic volume index 72 mL/m ) and function (50% ejection fraction). 4. Aortic valve is moderately thickened (+/-calcified) with flow acceleration across valve indicating degree of stenosis (peak velocity 2.3 m/s underestimated) - correlate with echo findings. Mild mitral thickening and regurgitaiton. - Exam was compared with the prior cardiac MR exam performed on 05/30/2022, further mild improvement of pericrdial enhancement otherwise similar findings. * * * Final * * * RP Customer Engagement Specialist: [employer] Transcribe Date/Time: Mar 24 2023 9:59A Dictated by : YOAV ADLER MD This examination was interpreted and the report reviewed and electronically signed by: YOAV ADLER MD on Mar 24 2023 3:03PM EST Lab; Component Latest Ref Rng & Units 05/14/2023 WBC 3.70 - 11.00 k/uL 6.09 RBC 3.90 - 5.20 m/uL 3.68 (L) Hemoglobin 11.5 - 15.5 g/dL 11.3 (L) Hematocrit 36.0 - 46.0 % 35.7 (L) MCV 80.0 - 100.0 fL 97.0 MCH 26.0 - 34.0 pg 30.7 MCHC 30.5 - 36.0 g/dL 31.7 RDW-CV 11.5 - 15.0 % 13.9 Platelet Count 150 - 400 k/uL 180 MPV 9.0 - 12.7 fL 9.8 Neut% % 61.4 Abs Neut (ANC) 1.45 - 7.50 k/uL 3.74 Lymph% % 26.1 Abs Lymph 1.00 - 4.00 k/uL 1.59 Travis% % 10.0 Abs Travis <0.87 k/uL 0.61 Eosin% % 2.0 Abs Eosin <0.46 k/uL 0.12 Baso% % 0.2 Abs Baso <0.11 k/uL <0.03 Immature Gran % % 0.3 IMMATURE GRANS (ABS) <0.10 k/uL <0.03 NRBC /100 WBC 0.0 Absolute nRBC <0.01 k/uL <0.01 DTYPE Auto Protein, Total 6.3 - 8.0 g/dL 6.6 Albumin 3.9 - 4.9 g/dL 4.0 Calcium 8.5 - 10.2 mg/dL 10.0 Bilirubin, Total 0.2 - 1.3 mg/dL 0.7 Alkaline Phosphatase 34 - 123 U/L 114 AST 13 - 35 U/L 17 ALT 7 - 38 U/L 20 Glucose 74 - 99 mg/dL 127 (H) BUN 7 - 21 mg/dL 45 (H) Creatinine 0.58 - 0.96 mg/dL 1.33 (H) Sodium 136 - 144 mmol/L 138 Potassium 3.7 - 5.1 mmol/L 5.1 Chloride 97 - 105 mmol/L 108 (H) CO2 22 - 30 mmol/L 20 (L) Anion Gap 9 - 18 mmol/L 10 eGFR >=60 mL/min/1.73m 40 (L) WSR 0 - 20 mm/hr 22 (H) [facility] STAFF PHYSICIAN NOTE OF PERSONAL INVOLVEMENT IN CARE I have reviewed the progress note obtained and documented by the hospitalist and I personally participated in the laurent components. I have discussed the case and management of the patient's care. The following comments revise or confirm relevant laurent components of their note. IMPRESSION: Ms. Angulo is a 83 year old female pmh of chronic pericarditis with pericardial effusion, SSS s/p PPM, pAF, HFpEF, HTN, DM2, CKD, presents for a regular follow up. PLAN: Chronic pericarditis with pericardial effusion - Stable on colchicine 0.6 mg every other day - Aspirin 81 mg/day -inflammatory markers when chest pain or other pericardial symptoms Hypertension - patient on 5 different anti-hypertensives, discussed about low-salt diet and lifestyle modifications. Aortic stenosis - Last ECHO showed mod- severe as per the calculated STEVE, while the dimensionless index and transaortic gradients suggest moderate aortic stenosis -close follow up needed -discussed about potential TAVR if needed in future SSS (sick sinus syndrome) (HCC): S/p PPM in 06/2018, Device check 01/31 with increased base rate to 55 bpm CKD: Baseline appears to be 1.3-1.5, Mod-severe aortic stenosis PLAN: Creatinine back to baseline Continue to monitor BP at home Continue aspirin 81 mg daily, colchicine 0.6 mg every other day Continue carvedilol, amlodipine, Cardura, olmesartan, finerenone Low-salt diet Follow up with Dr Cifuentes Follow up in 6 months; consider TAVR if increases Plan of care discussed with Patient CARE COORDINATION: The majority of the visit was spent counseling and/or coordinating care for the patient. [id number] time was 45 minutes SIGNATURE: MD Garth Vicente MD DATE of SERVICE: May 14, 2023 TIME of SERVICE: 4:53 PM After my examination and review of data, I make the following recommendations. PERICARDITIS MANAGEMENT: (I31.9) Chronic pericarditis, unspecified complication status, unspecified type (primary encounter diagnosis) (N18.31) Stage 3a chronic kidney disease (HCC) (I13.0) Hypertensive heart and chronic kidney disease with heart failure and stage 1 through stage 4 chronic kidney disease, or unspecified chronic kidney disease (HCC) (I35.0) Aortic stenosis Etiology: i Status: Poor prognosis factors: Management:: If you have worsening chest pain: Follow-up instructions: LIDAR SCIENTIST/PA in months Dr. Hoffman in 6 months Cardiac MRI in months Echo in 6 months I spent 60 minutes in this visit, with more than 50% of the time devoted to patient counseling. Brenton Donaldson MD 05/14/2023 documented in this encounter[facility] [place] Miscellaneous Notes* Telephone Encounter - Lynette Ervin APRN.CNP - 04/02/2023 11:15 AM EDT Spoke with pt regarding cMRI, showing trivial or mild pericardial enhancement. Continue colchicine every other day with follow up with Dr. Hoffman in April. * Telephone Encounter - Keyonna Nur - 04/02/2023 10:20 AM EDT Patient called to get MRI results from 03/21 Keyonna documented in this encounterSelect [facility] [place]2023 Instructions* Patient Instructions* Lynette Ervin APRN.CNP - 02/06/2023 2:16 PM EDT Continue current medications Will call with results of blood work Please call Dr. Hoffman's office after you have cardiac MRI Follow up with dr. Hoffman in April as scheduled documented in this encounterSelect [facility] [place]23 History of Present illness Narrative* Lynette Ervin APRN.REFINERY PIPELINE OPERATOR - 02/06/2023 2:00 PM EDT Images from the original note were not included. [facility] [place] [facility] Department of Cardiovascular Medicine PERICARDIAL CENTER OUTPATIENT VISIT DATE January 29, 2023 OUTPATIENT VISIT TYPE Established PCP: [address] [place] [address] [facility] [id number] [place]: Dr. Hoffman , Dr. Cifuentes CHIEF COMPLAINT: Follow up Lynette Angulo was last seen in Pericardial Clinic with Dr. Hoffman on 05/30/2022 for pericarditis withpericardial effusion. The recommendations were : - Decrease colchicine 0.6 mg every other day -Aspirin 81 mg/day -inflammatory markers when chest pain or other pericardial symptoms - Follow up with the water tanker driver to control the blood pressure. -ECHO today showed severe as per the calculated STEVE, while the dimensionless index and transaortic gradients suggest moderate aortic stenosis -close follow up needed -discussed about potential TAVR if needed in future HISTORY OF PRESENT ILLNESS: Ms. Angulo is a 82 year old female with PMHx of SSS s/p PPM, pAF, HFpEF, HTN, DM2, CKD Pt reports having an MS on 12/01/22. She was treated at [facility]. [facility] completed. NoPCI. Records requested - not available She was seen 01/29/2023 by GREGOR scherer to have a follow cardiac MRI but BP was 220/98 and was not placed in PPM slot. Sent over to [facility], BP remaining at 220 systolic. Pt is feeling shaky, lightheaded and nervous. She reports increased fatigue and SOB with exertion. CMET was called for HTN urgency, pt was trasnferred to ED and admitted to imaging service. Upon arrival to [facility], her BP was 168 and she was euvolemic but reporting MCGOVERN. Her home meds were resumed with an increase in her indapamide. The echo showed moderately severe which will ultimately be followed outpatient. During admission her blood pressures remained labile going as high as 190 and as low as 110. Her doxazosin and indapamide were increased with some benefit. While inpatient, Cora complained of dysuria. UA/UC came back positive for E. coli. Bactrim was started prior to discharge and to be continued for 3 days total. Her creatinine bumped prior to discharge, which could be attributed to the UTI. She has very close follow-up to reevaluate her kidney function and BP.Patientjim underwent a device check for bradycardia and feelings of fatigue. Device check completed 01/31 with increase base rate to 55 bpm. Here for hospital follow up ; BP and BMP to check creatinine Feeling well, UTI symptoms improved Denies SOB, chest pain, orthopnea, cough and lower extremity edema PAST PERICARDIAL DISEASE AND CARDIAC HISTORY: 80 year old female with PMH of HTN, CKD 3, AF, and SSS s/p PPM 06/2018 who presented to OSH ED due to 2 weeks of severe fatigue and weakness. CT C/A/P showed bilateral pleural effusions, large pericardial effusion, ascites. Formal echo showed moderate pericardial effusion 2.7 cm with some respiratory variation but no signs of tamponade. Pt was transferred to F for further management of pericardial effusion. Upon arrival to [facility], patient was admitted to [facility]. Her SBP was in 80s and pt was SOB requiring oxygen. Bedside echo showed pre-tamponade physiology (plethoric IVC and cardiac oscillation; difficult toassess respiratory variation in mitral/tricuspid inflow velocities due to Afib, no diastolic chamber collapse) so patient was transferred to CICU. In CICU, SBP 90s-100s. Pt appears comfortable and isnot SOB. Labs show Na 124, Cr 2.24, AST 1250 and ALT 1185, BNP 2538. USCRP 150.6. Lactate 2.32 --> 2.2. Given 1L LR bolus. She underwent pericardiocentesis with 960 mL bloody output. Pericardial fluid cytology was completed which was negative for AFB or organisms. LFTs remained elevated for which a liver US was completed that was not consistent with cholecystitis. Decision was made to completecardiac MRI which was inconclusive due to dye injection malfunction. ASA and colchicine were continued. A cardiac MRI was repeated due to prior findings which showed moderate circumferential pericardial delayed enhancement - most prominent anteriorly, consistent with pericardial inflammation. Additionally there was mild focal epicardial delayed enhancement of the mid-lateral LV suggestive of mildmyocardial inflammation. Patient was determined to be stable for discharge on colchicine, prednisone, and aspirin with plan for follow up with Dr Hoffman CURRENT MANAGEMENT: Her current pericardial medication include: Single anti-inflammatories Colchicine Possible side effects of pericardial medications: GI upset ALLERGIES: Darvon [Propoxyphene Hcl], Iodine, Lotensin [Benazepril Hcl], Shellfish, Spironolactone, Adhesive, Demeral [Meperidine], Metoprolol, and Penicillins Current Outpatient Medications Medication Sig glimepiride (AMARYL) 2 mg tablet Take 1 tablet by mouth daily with breakfast. aspirin 81 mg chewable tablet Take 1 tablet by mouth once daily. doxazosin (CARDURA) 4 mg tablet Take 1 tablet by mouth daily at bedtime. indapamide (LOZOL) 2.5 mg tablet Take 1 tablet by mouth once daily. carvedilol (COREG) 25 mg tablet Take 1 tablet by mouth twice daily with meals. vibegron (GEMTESA) 75 mg tablet Take 1 tablet by mouth once daily. olmesartan (BENICAR) 40 mg tablet Take 1 tablet by mouth once daily. Cranberry 500 mg cap Take 1 capsule by mouth once daily. Ascorbic Acid 500 mg cpER Take by mouth once daily. cinnamon bark (CINNAMON ORAL) Take by mouth. Take 2,00mg daily. lovastatin (MEVACOR) 20 mg tablet Take 20 mg by mouth daily at bedtime. cholecalciferol (VITAMIN D3) 5,000 unit tab Take 5,000 Units by mouth once daily. inulin (FIBER GUMMIES) 2 gram chew Take by mouth. 2 chews twice a day pantoprazole DR (PROTONIX) 40 mg tablet TAKE 1 TABLET BY MOUTH ONCE DAILY AT 6 AM levothyroxine (SYNTHROID) 125 mcg tablet Take 125 mcg by mouth once daily. MITIGARE 0.6 mg capsule every 48 hours. latanoprost (XALATAN) 0.005 % ophthalmic solution Use 1 Drop in both eyes daily at bedtime. OMEGA-3S/DHA/EPA/FISH OIL (OMEGA 3 ORAL) Take 830 mg by mouth once daily. amLODIPine (NORVASC) 10 mg tablet Take 1 tablet by mouth once daily. Current Facility-Administered Medications Medication Dose Route Frequency perflutren lipid microspheres 1.3 mL in NaCl (PF) 0.9% 10 mL injection (DEFINITY) INTRAVENOUS DIRECTED PRN sodium chloride 0.9 % (flush) 10 mL (BD POSIFLUSH) 10 mL INTRAVENOUS DIRECTED PRN sodium chloride 0.9 % (flush) 10 mL (BD POSIFLUSH) 10 mL INTRAVENOUS DIRECTED PRN PAST MEDICAL HISTORY Diagnosis Date Bradycardia Cancer (HCC) thyroid Diabetes (HCC) Dyslipidemia Gout Hypercholesteremia Hypertension Thyroid disease PAST SURGICAL HISTORY Procedure Laterality Date APPENDECTOMY HX CATARACT SURGERY, COMPLEX HYSTERECTOMY HX THYROIDECTOMY TOTAL/COMPLETE +parathyroid removal Social History Tobacco Use Smoking status: Never Smokeless tobacco: Never Vaping Use Vaping Use: Never used Substance Use Topics Alcohol use: No Drug use: Never No family history on file. REVIEW OF SYSTEMS: GENERAL: Negative for: Weight loss or gain, Fever or Chills, Weakness and Sleep difficulties. HEENT: Negative for: Headache, Impaired Vision, Glasses, Hearing Impairment, Ringing in Ears, Nosebleeds, Poor dental care, Bleeding Gums, Dentures NECK: Negative for: Swelling, Pain, Stiffness RESPIRATORY: Negative for: Cough, Blood in Sputum, Shortness of breath, Wheezing, Apnea GASTROINTESTINAL: Negative for: Trouble swallowing, Heartburn, Change in bowel habits, Blood in stool, Dark black stools MUSCULOSKELETAL: Negative for: Muscle or joint pain, Stiffness , Joint swelling NEUROLOGIC/PSYCHIATRIC: Negative for: Weakness, Paralysis, Numbness, Tingling, Tremor, Nervousness,Depressed mood, Memory loss SKIN: Negative for: Rashes, Itching HEMATOLOGICAL/LYMPHATIC: Negative for: Easy bruising , Easy bleeding ENDOCRINE: Negative for: Heat or cold intolerance, Excessive sweating, Frequent urination, Frequentthirst PHYSICAL EXAM: BP 143/71 Pulse 68 Wt 175 lb (79.4kg) SpO2 99% Pulsus paradoxus: No General: Appears well nourished. In no acute distress: No Obese. Skin: No clubbing. No cyanosis. Eyes: EOMI. Oropharynx: Teeth in good repair. Neck: Supple, no JVD, No Kussmaul's sign , no carotid bruits, carotids have a normal upstroke, no thyromegaly. Lungs: Clear to auscultation bilaterally. Heart: Regular rate and rhythm. PMI 5th ICS LMCL, S1nl, S2nl. No rub No knock, heart murmur KULDIP 4 Abdomen: Soft, non-tender, BS normal, no organomegaly, no bruits. No Ascites Extremities: No peripheral edema bilaterally. Grade 2/4 distal pulses bilaterally. Neuro: Oriented x3, alert, cooperative, reflexes normal, CN II-XII grossly intact, gait coordinated. CURRENT STUDIES: Echo 01/29/2023 Technically difficult exam due to body habitus. - Exam indication: Routine surveillance of moderate or severe valvular stenosis (>1yr) - The left ventricle is mildly dilated. Left ventricular systolic function is mildly decreased. EF = 54 5% (visual est.) - The right ventricle is normal in size. Right ventricular systolic function is normal. - The left atrial cavity is severely dilated. - The right atrial cavity is dilated. - There is moderate (2+) tricuspid valve regurgitation. - There is moderately severe aortic valve stenosis caused by restricted opening. AV area is 0.83 cm (0.45 cm /m ) by continuity, VTI. The peak gradient is 40 mmHg, the mean gradient is 22 mmHg and the dimensionless valve index is 0.27. On 2D imaging, aortic valve opening appears moderately to severely reduce. The calculated STEVE suggests severe stenosis. Prior peak/mean gradient of 29/18 mmHg. - Exam was compared with the prior echocardiographic exams. Slow, steady worsening of STEVE, AoV gradients. Clinical correlation recommended. Last MRI Result Conclusion MRI CARDIAC VELOCITY FLOW MAP Exam End: 05/30/2022 10:57 AM (Final result) Impression: IMPRESSION: -No pericardial effusion or significant pericardial thickening. There is no significant diastolic septal bounce or respirophasic septal shift. No evidence of constrictive physiology. There is increased pericardial signal intensity on T2 STIR imaging at the basal segments and there is mild near-circumferential pericardial delayed enhancement - similar findings comparing to the prior exam dated 05/24/2021. - The left ventricle is normal in size (LV EDVi = 71 ml/m ). The left ventricular systolic function is normal (LV EF = 58 %). Delayed enhancement imaging reveals focal mid myocardial enhancement in the basal lateral wall, slightly altered in distribution from prior studies. - The right ventricle is normal in size (RV EDVi = 67 ml/m ). The right ventricular systolic function is normal (RV EF = 56 %). -Moderate aortic valve thickening with flow acceleration at the level of the valve. Peak velocity 2.4 m/sec, may be underestimated. Mild AI. Customer Engagement Specialist: GUS Transcribe Date/Time: May 30 2022 10:31A Dictated by : IMTIAZ CASAS MD This examination was interpreted and the report reviewed and electronically signed by: IMTIAZ CASAS MD on May 30 2022 1:46PM EST Renal artery US 02/02/2023 RIGHT RENAL Right renal artery: 0-59% stenosis. No evidence of hemodynamically significant stenosis. LEFT RENAL Left renal artery: 0-59% stenosis. No evidence of hemodynamically significant stenosis. Unable to adequately visualize the left renal artery stent, however the vessel appears to be widely patent throughout. ECG 02/06/2023 ATRIAL-PACED RHYTHM WITH PROLONGED AV CONDUCTION LEFT AXIS DEVIATION COMPLETE LEFT BUNDLE BRANCH BLOCK ABNORMAL ECG Labs 01/29/2023 Component Latest Ref Rng & Units 01/29/2023 01/29/2023 01/29/2023 11:59 AM 1:06 PM 3:16 PM WBC 3.70 - 11.00 k/uL 5.66 5.63 RBC 3.90 - 5.20 m/uL 3.81 (L) 3.58 (L) Hemoglobin 11.5 - 15.5 g/dL 11.5 10.9 (L) Hematocrit 36.0 - 46.0 % 35.3 (L) 33.4 (L) MCV 80.0 - 100.0 fL 92.7 93.3 MCH 26.0 - 34.0 pg 30.2 30.4 MCHC 30.5 - 36.0 g/dL 32.6 32.6 RDW-CV 11.5 - 15.0 % 13.3 13.3 Platelet Count 150 - 400 k/uL 234 230 MPV 9.0 - 12.7 fL 9.3 9.3 Neut% % 62.8 Abs Neut (ANC) 1.45 - 7.50 k/uL 3.54 Lymph% % 24.3 Abs Lymph 1.00 - 4.00 k/uL 1.37 Travis% % 8.7 Abs Travis <0.87 k/uL 0.49 Eosin% % 3.4 Abs Eosin <0.46 k/uL 0.19 Baso% % 0.4 Abs Baso <0.11 k/uL <0.03 Immature Gran % % 0.4 IMMATURE GRANS (ABS) <0.10 k/uL <0.03 NRBC /100 WBC 0.0 Absolute nRBC <0.01 k/uL <0.01 <0.01 DTYPE Auto Glucose 74 - 99 mg/dL 98 BUN 7 - 21 mg/dL 42 (H) Creatinine 0.58 - 0.96 mg/dL 1.36 (H) Sodium 136 - 144 mmol/L 140 Potassium 3.7 - 5.1 mmol/L 4.5 Chloride 97 - 105 mmol/L 108 (H) CO2 22 - 30 mmol/L 23 Anion Gap 9 - 18 mmol/L 9 Calcium 8.5 - 10.2 mg/dL 10.3 (H) eGFR >=60 mL/min/1.73m 39 (L) FANNIE High Sensitivity <12 ng/L 17 (H) 18 (H) IMPRESSION: Ms. Angulo is a 83 year old female who presents for consultation regarding chronic pericarditis with pericardial effusion, PMHx of SSS s/p PPM, pAF, HFpEF, HTN, DM2, CKD, . Presents for hospital follow up after being admitted for HTN urgency . Chronic pericarditis with pericardial effusion - Stable on colchicine 0.6 mg every other day - Aspirin 81 mg/day -inflammatory markers when chest pain or other pericardial symptoms Hypertension - patient on 5 different anti-hypertensives, normotensive today - Check BMP - follow results Aortic stenosis - Last ECHO showed mod- severe as per the calculated STEVE, while the dimensionless index and transaortic gradients suggest moderate aortic stenosis -close follow up needed -discussed about potential TAVR if needed in future SSS (sick sinus syndrome) (HCC): S/p PPM in 06/2018, Device check 01/31 with increased base rate to 55 bpm CKD: Baseline appears to be 1.3-1.5, Creatinine trending upward at dc and and appt yesterday. RenalUS showing no stenosis. PLAN: Creatinine continuing to trend up - discussed with Dr. Vane medrano, recheck labs mid next week. Follow up with Dr. Vane BUNDY in next week for BP cMRI schedule for 03/24, will call with results and discuss with Dr. Hoffman's office Continue to monitor BP at home Follow up with Dr. Hoffman in April-january need to consider TAVR in the future SIGNATURE: Lynette Ervin APRN.MOIZ DATE of SERVICE: January 29, 2023 TIME of SERVICE: 9:58 AM I spent 60 minutes in this visit, with more than 50% of the time devoted to patient counseling. Lynette Ervin APRN.CNP 01/29/2023 documented in this encounterSelect [facility] [place]05-[facility]-2023 Miscellaneous Notes* Telephone Encounter - Amanda Garces, [facility] - 02/06/2023 1:27 PM EDT TRANSITION CARE MANAGEMENT (TCM) PHARMACY FOLLOW-UP Provider Action/FYI: Pt reports she has not been able to get the amlodipine and carvedilol from [facility] pharmacy. Contacted pharmacy was informed Carvedilol is ready via insurance $0 copay, but the amlodipine is RTS - 02/09, $9 copay. Messaged relayed to pt, agreeable to paying the copay for amlodipine and will request 90 d/s at [facility] with cardio as it will go through insurance at that time. Follow up call with patient post discharge, spoke to patient. Patient identified by name and . See post-discharge summary from contact on 02/05/2023. Patient Concerns: Pt reports she has not been able to get the amlodipine and carvedilol from [facility] pharmacy- defer to blue box for more details. Medication List Medication Directions Comments Action/Plan Discontinued: 01/29/2023 10:25 AM Discontinued: 02/04/2023 2:17 PM amLODIPine (NORVASC) 10 mg tablet Take 1 tablet by mouth once daily. Medication ran via coupon card at [facility] - $9 for 30 d/s Pt agreeable to purchase. Ascorbic Acid 500 mg cpER Take by mouth once daily. Discontinued: 02/04/2023 2:17 PM aspirin 81 mg chewable tablet Take 1 tablet by mouth once daily. Discontinued: 02/04/2023 12:44 PM Discontinued: 02/04/2023 2:17 PM carvedilol (COREG) 25 mg tablet Take 1 tablet by mouth twice daily with meals. Rx is ready for pick-up per [facility] pharmacist Pt informed cholecalciferol (VITAMIN D3) 5,000 unit tab Take 5,000 Units by mouth once daily. cinnamon bark (CINNAMON ORAL) Take by mouth. Take 2,00mg daily. Cranberry 500 mg cap Take 1 capsule by mouth once daily. Discontinued: 02/04/2023 12:44 PM Discontinued: 02/04/2023 2:17 PM doxazosin (CARDURA) 4 mg tablet Take 1 tablet by mouth daily at bedtime. Discontinued: 02/04/2023 12:44 PM Discontinued: 02/04/2023 12:44 PM glimepiride (AMARYL) 2 mg tablet Take 1 tablet by mouth daily with breakfast. Discontinued: 02/04/2023 12:44 PM Discontinued: 02/04/2023 2:17 PM indapamide (LOZOL) 2.5 mg tablet Take 1 tablet by mouth once daily. inulin (FIBER GUMMIES) 2 gram chew Take by mouth. 2 chews twice a day latanoprost (XALATAN) 0.005 % ophthalmic solution Use 1 Drop in both eyes daily at bedtime. levothyroxine (SYNTHROID) 125 mcg tablet Take 125 mcg by mouth once daily. lovastatin (MEVACOR) 20 mg tablet Take 20 mg by mouth daily at bedtime. MITIGARE 0.6 mg capsule every 48 hours. Discontinued: 02/04/2023 12:44 PM olmesartan (BENICAR) 40 mg tablet Take 1 tablet by mouth once daily. OMEGA-3S/DHA/EPA/FISH OIL (OMEGA 3 ORAL) Take 830 mg by mouth once daily. pantoprazole DR (PROTONIX) 40 mg tablet TAKE 1 TABLET BY MOUTH ONCE DAILY AT 6 AM Discontinued: 02/04/2023 2:17 PM Discontinued: 02/05/2023 1:38 PM vibegron (GEMTESA) 75 mg tablet Take 1 tablet by mouth once daily. Follow Up Plan: No further follow up needed at this time Appointments for Next 60 Days Date Time Provider Location Dept Phone 02/06/2023 1:15 PM [id number] ALEX Sparks [facility] [phone] 02/06/2023 2:00 PM LYNETTE ERVIN [facility] [phone] 02/12/2023 2:40 PM [facility] [phone] 02/14/2023 10:40 AM [id number] ALEX Sparks [facility] [phone] 02/14/2023 11:00 AM DEEPAK BEST [facility] [phone] 03/11/2023 2:00 PM ELIZABETH RAMIREZ J [facility] [phone] 03/24/2023 10:00 AM MRI MAIN J 2 (I-STAT/1.5T) [place] [facility] [phone] 03/26/2023 9:00 AM LYNETTE ERVIN [facility] [phone] Interventions Made: Medication access issue resolved Time spent on patient: 10-20 minutes Amanda Garces [facility] February 06, 2023 1:40 PM documented in this encounterSelect [facility] [place]05-[facility]23 Miscellaneous Notes* Telephone Encounter - Jose Fry RN - 02/05/2023 12:30 PM EDT PD nurse called patient for follow up from recent hospital discharge, but no answer. Left message on [employer] including resource nurse phone number. Jose Fry RN documented in this encounterSelect Medical [facility] [place]05-[facility]23 History of Present illness Narrative* Chandni Starr [facility] - 02/05/2023 7:23 AM EDT TRANSITION CARE MANAGEMENT (TCM) HEART FAILURE PHARMACY CONTACT Provider Action/FYI: TCM Medication Reconciliation partially completed for patient. See medication list table below for details. Medications discussed per patient preference outlined in bold in table below. Patient unable to stand up from her chair at this time to inspect her medication bottles for complete med review. She confirmed taking aspirin 81 mg chewable and took a dose of bactrim this morning but was told by her water tanker driver to discontinue because of her kidney function Her son usually manages her medications and will call for any medication questions or concerns Patient Workup: HF medication classes present on medication list: GREGORIO/ARB/ARNI YES - olmesartan Beta ricarda YES - carvedilol Aldosterone antagonist NO SGLT2i NO Hydralazine/Isosorbide NO Ivabradine NO Loop diuretics NO Digoxin NO New HF medication class(es) added this admission: Yes, Carvedilol (Patient to be counseled on new medications if full medication review completed) Last documented LVEF: LV Ejection Fraction (%) Date Value 01/29/2023 54 Last documented weight: Last Wt 02/04/23 78.5 kg (173 lb) Patient was sent a message via [employer] including the link to the [facility] [place] Heart Failure education video: No Initial contact with patient post discharge, spoke to patient, and verified that any applicable caregiver is active in patient's medical care. Patient identified by name and . Summary: -Pt discharged from [facility] on 02/04/23. -Medication review done Partial medication review completed - per patient preference Patient Concerns: See provider box ROS/additional sections of this note were not assessed due to: patient preference History of Present Illness: The following content has been copied and pasted from patient's discharge summary. If discharge summary unavailable, After Visit Summary or last pertinent inpatient notes are copied and pasted. Discharge Diagnosis: Hypertensive urgency Secondary Diagnoses: Patient Active Hospital Problem List: Severe aortic stenosis (01/29/2023) Controlled type 2 diabetes mellitus without complication, without long-term current use of insulin ([facility]) (08/24/2020) SSS (sick sinus syndrome) ([facility]) (08/24/2020) Chronic pericarditis (05/30/2022) Primary hypertension (05/30/2022) Stage 4 chronic kidney disease (HCC) (01/30/2023) Reason for Hospitalization: Cora Angulo is an 83-year-old female with a PMHx of moderate to severe , pericarditis, HTN, T2 DM, stage 4 CKD, and SSS s/p DC-PM, who presented to [facility] for management of her pericarditis her BP was noted to be 210/98 so a CMET was called for HTN urgency. She remained hypertensive in the ED and was subsequently admitted. Hospital Course: Upon arrival to [facility], her BP was 168 and she was euvolemic but reporting MCGOVERN. Her home meds were resumed with an increase in her indapamide. An echo was ordered to reevaluate her for possible TAVR. The echo showed moderately severe which will ultimately be followed outpatient.Patient was unable to get MRI this admission. Ordered for OP at follow-up appointment in 1 month (03/24). During admission her blood pressures remained labile going as high as 190 and as low as 110. Her doxazosin and indapamide were increased with some benefit. She did report one episode of dizziness. With symptoms of dizziness and such fluctuating BPs it was decided not to add more medication such as eplerenone or clonidine patches out of concern for dropping BP too much. While inpatient, Cora complained of dysuria. UA/UC came back positive for E. coli. Bactrim was started prior to discharge and to be continued for 3 days total. Her creatinine bumped prior to discharge, which could be attributed to the UTI. She has very close follow-up to reevaluate her kidney function and BP. Patient also underwent a device check for bradycardia and feelings of fatigue. Device check completed 01/31 with increase base rate to 55 bpm. Patient has another device check scheduled for 06/09. Consults: None Major Procedure or Operation: None Other Procedures, Testing & Radiology: Echo, device check Patient Condition at Discharge: Improved Disposition: Home with Self Care Medication Reconciliation: Legend: Stopped, New, Changed, Added to list Medication List Medication Directions Comments Action/Plan amLODIPine (NORVASC) 10 mg tablet Take 1 tablet by mouth once daily. Last filled 90 tab 12/03 Ascorbic Acid 500 mg cpER Take by mouth once daily. Discontinued: 02/04/2023 2:17 PM aspirin 81 mg chewable tablet Take 1 tablet by mouth once daily. [facility] F[facility]- taking as directed Counseled on difference between chewable and enteric coated per pt request Discontinued: 02/04/2023 12:44 PM Discontinued: 02/04/2023 2:17 PM carvedilol (COREG) 25 mg tablet Take 1 tablet by mouth twice daily with meals. [facility] filled? cholecalciferol (VITAMIN D3) 5,000 unit tab Take 5,000 Units by mouth once daily. cinnamon bark (CINNAMON ORAL) Take by mouth. Take 2,00mg daily. Cranberry 500 mg cap Take 1 capsule by mouth once daily. Discontinued: 02/04/2023 12:44 PM Discontinued: 02/04/2023 2:17 PM doxazosin (CARDURA) 4 mg tablet Take 1 tablet by mouth daily at bedtime. Dose increase [facility] Last 2 mg, 90 tab 12/09 Discontinued: 02/04/2023 12:44 PM Discontinued: 02/04/2023 12:44 PM glimepiride (AMARYL) 2 mg tablet Take 1 tablet by mouth daily with breakfast. Renewed [facility] Last filled 90 tab 11/06 Discontinued: 02/04/2023 12:44 PM Discontinued: 02/04/2023 2:17 PM indapamide (LOZOL) 2.5 mg tablet Take 1 tablet by mouth once daily. Dose increase Mejia Last filled 1.25 90 tab 01/10 Unsure what dose she takes Recommended to have son call TCM pharmacist if question on dose inulin (FIBER GUMMIES) 2 gram chew Take by mouth. 2 chews twice a day latanoprost (XALATAN) 0.005 % ophthalmic solution Use 1 Drop in both eyes daily at bedtime. levothyroxine (SYNTHROID) 125 mcg tablet Take 125 mcg by mouth once daily. THYROID FLOWSHEET Latest Ref Rng & Units 01/30/2023 TSH 0.270 - 4.200 mIU/L 0.962 lovastatin (MEVACOR) 20 mg tablet Take 20 mg by mouth daily at bedtime. MITIGARE 0.6 mg capsule every 48 hours. Discontinued: 02/04/2023 12:44 PM olmesartan (BENICAR) 40 mg tablet Take 1 tablet by mouth once daily. OMEGA-3S/DHA/EPA/FISH OIL (OMEGA 3 ORAL) Take 830 mg by mouth once daily. pantoprazole DR (PROTONIX) 40 mg tablet TAKE 1 TABLET BY MOUTH ONCE DAILY AT 6 AM sulfamethoxazole-trimethoprim (BACTRIM DS) 800-160 mg per tablet Take 1 tablet by mouth once daily for 2 doses. [facility] filled Told to stop by her water tanker driver: Took one dose this morning and stopped. vibegron (GEMTESA) 75 mg tablet Take 1 tablet by mouth once daily. Preferred pharmacy: [facility] [address] [place] [id number] [facility] [phone] [facility] [address] [place] [id number] [facility] [address] [place], [place] [id number] Estimated Creatinine Clearance: 23.3 mL/min (A) (based on SCr of 1.81 mg/dL (H)). eGFR (no units) Date Value 09/20/2017 41.51 Estimated Glomerular Filtration Rate (mL/min/1.73m ) Date Value 02/04/2023 28 (L) eGFR- (no units) Date Value 10/23/2021 38 Additional follow up: Next 5 Appointments Date and Time Provider Department Dept Phone 02/06/2023 1:30 PM [facility] [phone] 02/06/2023 2:00 PM Lynette Ervin C[facility] [phone] 02/12/2023 2:40 PM [facility] [phone] 02/20/2023 8:20 AM [facility] [phone] 02/20/2023 8:45 AM Deepak Tomic CARD PREVENTIVE MAIN [phone] Interventions Made: Patient education/Medication counseling Pharmacist Recommendations Made None Care Coordination: None at this time Time spent on patient: 30-45 minutes Chandni Starr RPh February 05, 2023 1:19 PM documented in this encounterSelect [facility] [place] History of Present illness Narrative* Lynette Ervin APRN.REFINERY PIPELINE OPERATOR - 01/29/2023 1:00 PM EDT Images from the original note were not included. [facility] [place] [facility] Department of Cardiovascular Medicine PERICARDIAL CENTER OUTPATIENT VISIT DATE January 29, 2023 OUTPATIENT VISIT TYPE Established PCP: [address] [facility] [address] [facility] [id number] [place]: Dr. Hoffman , Dr. Cifuentes CHIEF COMPLAINT: Follow up Lynette Angulo was last seen in Pericardial Clinic with Dr. Hoffman on 05/30/2022 for pericarditis withpericardial effusion. The recommendations were : - Decrease colchicine 0.6 mg every other day -Aspirin 81 mg/day -inflammatory markers when chest pain or other pericardial symptoms - Follow up with the water tanker driver to control the blood pressure. -ECHO today showed severe as per the calculated STEVE, while the dimensionless index and transaortic gradients suggest moderate aortic stenosis -close follow up needed -discussed about potential TAVR if needed in future HISTORY OF PRESENT ILLNESS: Ms. Angulo is a 82 year old female with PMHx of SSS s/p PPM, pAF, HFpEF, HTN, DM2, CKD who presents today for follow-up visit for pericarditis with pericardial effusion. She does not complain of dyspnea, chest pain, palpitations, syncope. She c/o occasional dizziness. No fever, chills. Currently, she is on aspirin 81 mg once daily and colchicine 0.6 mg once daily Referred to Dr. Cifuentes by Dr. Hoffman for HTN. Seen on 11/27/2022 Started on new medications: 1) Finerenone 10 mg daily 2) Chlorthalidone 12.5 mg daily 3) Amlodipine-olmesartan 10-40 mg nightly 4) Nebivolol 10 mg nightly 5) Doxazosin 2 mg nightly Pt reports having an MS on 12/01/22. She was treated at [facility]. [facility] completed. NoPCI. Records requested - not available Saw GREGOR Ramirez after this for HTN follow up on 01/08; following med changes were made Stop Chlorthalidone. Start Indapamide 1.25 mg daily Stop Losartan. Start Olmesartan 40 mg. (Could use Azilsartan in the future if needed) 3. BMP in 2 weeks. Today was suppose to cardiac MRI but BP was 220/98 and was not placed in PPM slot. Sent over to [facility] OPD, BP remaining at 220 systolic. Pt is feeling shaky, lightheaded and nervous. She reports increased fatigue and SOB with exertion. PAST PERICARDIAL DISEASE AND CARDIAC HISTORY: 80 year old female with PMH of HTN, CKD 3, AF, and SSS s/p PPM 06/2018 who presented to OSH ED due to 2 weeks of severe fatigue and weakness. CT C/A/P showed bilateral pleural effusions, large pericardial effusion, ascites. Formal echo showed moderate pericardial effusion 2.7 cm with some respiratory variation but no signs of tamponade. Pt was transferred to F for further management of pericardial effusion. Upon arrival to F, patient was admitted to [facility]. Her SBP was in 80s and pt was SOB requiring oxygen. Bedside echo showed pre-tamponade physiology (plethoric IVC and cardiac oscillation; difficult toassess respiratory variation in mitral/tricuspid inflow velocities due to Afib, no diastolic chamber collapse) so patient was transferred to CICU. In CICU, SBP 90s-100s. Pt appears comfortable and isnot SOB. Labs show Na 124, Cr 2.24, AST 1250 and ALT 1185, BNP 2538. USCRP 150.6. Lactate 2.32 --> 2.2. Given 1L LR bolus. She underwent pericardiocentesis with 960 mL bloody output. Pericardial fluid cytology was completed which was negative for AFB or organisms. LFTs remained elevated for which a liver US was completed that was not consistent with cholecystitis. Decision was made to completecardiac MRI which was inconclusive due to dye injection malfunction. ASA and colchicine were continued. A cardiac MRI was repeated due to prior findings which showed moderate circumferential pericardial delayed enhancement - most prominent anteriorly, consistent with pericardial inflammation. Additionally there was mild focal epicardial delayed enhancement of the mid-lateral LV suggestive of mild myocardial inflammation. Patient was determined to be stable for discharge on colchicine, prednisone, and aspirin with plan for follow up with Dr Hoffman CURRENT MANAGEMENT: Her current pericardial medication include: Single anti-inflammatories Colchicine Possible side effects of pericardial medications: GI upset ALLERGIES: Darvon [Propoxyphene Hcl], Iodine, Lotensin [Benazepril Hcl], Shellfish, Spironolactone, Adhesive, Demeral [Meperidine], Metoprolol, and Penicillins Current Outpatient Medications Medication Sig olmesartan (BENICAR) 40 mg tablet Take 1 tablet by mouth once daily. indapamide (LOZOL) 1.25 mg tablet Take 1 tablet by mouth once daily. Cranberry 500 mg cap Take 1 capsule by mouth once daily. Ascorbic Acid (VITAMIN C) 500 mg cpER Take by mouth once daily. cinnamon bark (CINNAMON ORAL) Take by mouth. Take 2,00mg daily. finerenone (KERENDIA) 10 mg tablet Take 10 mg by mouth once daily. doxazosin (CARDURA) 2 mg tablet Take 2 mg by mouth daily at bedtime. lovastatin (MEVACOR) 20 mg tablet Take 20 mg by mouth daily at bedtime. nebivolol (BYSTOLIC) 10 mg tablet Take 1 tablet by mouth every evening. cholecalciferol (VITAMIN D3) 5,000 unit tab Take 5,000 Units by mouth once daily. inulin (FIBER GUMMIES) 2 gram chew Take by mouth. 2 chews twice a day pantoprazole DR (PROTONIX) 40 mg tablet TAKE 1 TABLET BY MOUTH ONCE DAILY AT 6 AM levothyroxine (SYNTHROID) 125 mcg tablet Take 125 mcg by mouth once daily. MITIGARE 0.6 mg capsule every 48 hours. latanoprost (XALATAN) 0.005 % ophthalmic solution Use 1 Drop in both eyes daily at bedtime. glimepiride (AMARYL) 2 mg tablet Take 0.5 tablets by mouth daily with breakfast. (Patient taking differently: Take 2 mg by mouth daily with breakfast.) aspirin, enteric coated (ASPIRIN, ENTERIC COATED) 325 mg EC tablet Take 1 tablet by mouth three times daily. (Patient taking differently: Take 325 mg by mouth once daily.) OMEGA-3S/DHA/EPA/FISH OIL (OMEGA 3 ORAL) Take 830 mg by mouth once daily. vibegron (GEMTESA) 75 mg tablet Take 1 tablet by mouth once daily. Current Facility-Administered Medications Medication Dose Route Frequency perflutren lipid microspheres 1.3 mL in NaCl (PF) 0.9% 10 mL injection (DEFINITY) INTRAVENOUS DIRECTED PRN sodium chloride 0.9 % (flush) 10 mL (BD POSIFLUSH) 10 mL INTRAVENOUS DIRECTED PRN sodium chloride 0.9 % (flush) 10 mL (BD POSIFLUSH) 10 mL INTRAVENOUS DIRECTED PRN PAST MEDICAL HISTORY Diagnosis Date Bradycardia Cancer (HCC) thyroid Diabetes (HCC) Dyslipidemia Gout Hypercholesteremia Hypertension Thyroid disease PAST SURGICAL HISTORY Procedure Laterality Date APPENDECTOMY HX CATARACT SURGERY, COMPLEX HYSTERECTOMY HX THYROIDECTOMY TOTAL/COMPLETE +parathyroid removal Social History Tobacco Use Smoking status: Never Smokeless tobacco: Never Vaping Use Vaping Use: Never used Substance Use Topics Alcohol use: No Drug use: Never No family history on file. REVIEW OF SYSTEMS: GENERAL: Negative for: Weight loss or gain, Fever or Chills, Weakness and Sleep difficulties. HEENT: Negative for: Headache, Impaired Vision, Glasses, Hearing Impairment, Ringing in Ears, Nosebleeds, Poor dental care, Bleeding Gums, Dentures NECK: Negative for: Swelling, Pain, Stiffness RESPIRATORY: Negative for: Cough, Blood in Sputum, Shortness of breath, Wheezing, Apnea GASTROINTESTINAL: Negative for: Trouble swallowing, Heartburn, Change in bowel habits, Blood in stool, Dark black stools MUSCULOSKELETAL: Negative for: Muscle or joint pain, Stiffness , Joint swelling NEUROLOGIC/PSYCHIATRIC: Negative for: Weakness, Paralysis, Numbness, Tingling, Tremor, Nervousness,Depressed mood, Memory loss SKIN: Negative for: Rashes, Itching HEMATOLOGICAL/LYMPHATIC: Negative for: Easy bruising , Easy bleeding ENDOCRINE: Negative for: Heat or cold intolerance, Excessive sweating, Frequent urination, Frequentthirst PHYSICAL EXAM: BP 210/98 Pulse 58 SpO2 99% Pulsus paradoxus: No General: Appears well nourished. In no acute distress: No Obese. Skin: No clubbing. No cyanosis. Eyes: EOMI. Oropharynx: Teeth in good repair. Neck: Supple, no JVD, No Kussmaul's sign , no carotid bruits, carotids have a normal upstroke, no thyromegaly. Lungs: Clear to auscultation bilaterally. Heart: Regular rate and rhythm. PMI 5th ICS LMCL, S1nl, S2nl. No rub No knock, heart murmur KULDIP 4 Abdomen: Soft, non-tender, BS normal, no organomegaly, no bruits. No Ascites Extremities: No peripheral edema bilaterally. Grade 2/4 distal pulses bilaterally. Neuro: Oriented x3, alert, cooperative, reflexes normal, CN II-XII grossly intact, gait coordinated. CURRENT STUDIES: Last ECHO Result Conclusion ECHO Collected: 05/30/2022 12:57 PM (Final result) Impression: CONCLUSIONS: - Technically difficult exam due to body habitus. - Exam indication: Pericardial conditions - The abnormal regional wall motion pattern in conjunction with normal regional wall thickness is consistent with a LBBB abnormal conduction delay. - The left ventricle is mildly dilated. Left ventricular systolic function is mildly decreased. EF = 54 5% (2D biplane) Definity contrast used for endocardial border detection. - The right ventricle is normal in size. Right ventricular systolic function is normal. - The left atrial cavity is dilated. - There is moderate (2+) tricuspid valve regurgitation. - Tricuspid aortic valve. There is moderately severe aortic valve stenosis caused by calcified valve and restricted opening. AV area is 1.03 cm (0.55 cm /m ) by continuity, VTI. The peak gradient is 29 mmHg, the mean gradient is 18 mmHg and the dimensionless valve index is 0.33. On 2D imaging, aortic valve openining appears moderately to severley reduced (Image 37). The calculated STEVE suggests severe aortic stenosis, while the dimensionless index and transaortic gradients suggest moderate aortic stenosis. Prior transaortic gradients: 26/12 mmHg, DI: 0.35. - No pericardial effusion. Abnormal septal motion in setting of LBBB. No significant constrictive physiology. - Exam was compared with the prior echocardiographic exam performed on 12/12/2021. On direct comparison, the recorded transaortic gradients are mildly higher today. Last EKG Result Conclusion ECG COMPLETE Collected: 05/30/2022 11:41 AM (Final result) Impression: SINUS BRADYCARDIA LEFT AXIS DEVIATION COMPLETE LEFT BUNDLE BRANCH BLOCK ABNORMAL ECG Confirmed by DEAN GERBER, SACHA ([id number]) on 06/19/2022 9:41:00 AM Last MRI Result Conclusion MRI CARDIAC VELOCITY FLOW MAP Exam End: 05/30/2022 10:57 AM (Final result) Impression: IMPRESSION: -No pericardial effusion or significant pericardial thickening. There is no significant diastolic septal bounce or respirophasic septal shift. No evidence of constrictive physiology. There is increased pericardial signal intensity on T2 STIR imaging at the basal segments and there is mild near-circumferential pericardial delayed enhancement - similar findings comparing to the prior exam dated 05/24/2021. - The left ventricle is normal in size (LV EDVi = 71 ml/m ). The left ventricular systolic function is normal (LV EF = 58 %). Delayed enhancement imaging reveals focal mid myocardial enhancement in the basal lateral wall, slightly altered in distribution from prior studies. - The right ventricle is normal in size (RV EDVi = 67 ml/m ). The right ventricular systolic function is normal (RV EF = 56 %). -Moderate aortic valve thickening with flow acceleration at the level of the valve. Peak velocity 2.4 m/sec, may be underestimated. Mild AI. Customer Engagement Specialist: [employer] Transcribe Date/Time: May 30 2022 10:31A Dictated by : IMITAZ CASAS MD This examination was interpreted and the report reviewed and electronically signed by: IMTIAZ CASAS MD on May 30 2022 1:46PM EST Labs 01/29/2023 Component Latest Ref Rng & Units 01/29/2023 01/29/2023 01/29/2023 11:59 AM 1:06 PM 3:16 PM WBC 3.70 - 11.00 k/uL 5.66 5.63 RBC 3.90 - 5.20 m/uL 3.81 (L) 3.58 (L) Hemoglobin 11.5 - 15.5 g/dL 11.5 10.9 (L) Hematocrit 36.0 - 46.0 % 35.3 (L) 33.4 (L) MCV 80.0 - 100.0 fL 92.7 93.3 MCH 26.0 - 34.0 pg 30.2 30.4 MCHC 30.5 - 36.0 g/dL 32.6 32.6 RDW-CV 11.5 - 15.0 % 13.3 13.3 Platelet Count 150 - 400 k/uL 234 230 MPV 9.0 - 12.7 fL 9.3 9.3 Neut% % 62.8 Abs Neut (ANC) 1.45 - 7.50 k/uL 3.54 Lymph% % 24.3 Abs Lymph 1.00 - 4.00 k/uL 1.37 Travis% % 8.7 Abs Travis <0.87 k/uL 0.49 Eosin% % 3.4 Abs Eosin <0.46 k/uL 0.19 Baso% % 0.4 Abs Baso <0.11 k/uL <0.03 Immature Gran % % 0.4 IMMATURE GRANS (ABS) <0.10 k/uL <0.03 NRBC /100 WBC 0.0 Absolute nRBC <0.01 k/uL <0.01 <0.01 DTYPE Auto Glucose 74 - 99 mg/dL 98 BUN 7 - 21 mg/dL 42 (H) Creatinine 0.58 - 0.96 mg/dL 1.36 (H) Sodium 136 - 144 mmol/L 140 Potassium 3.7 - 5.1 mmol/L 4.5 Chloride 97 - 105 mmol/L 108 (H) CO2 22 - 30 mmol/L 23 Anion Gap 9 - 18 mmol/L 9 Calcium 8.5 - 10.2 mg/dL 10.3 (H) eGFR >=60 mL/min/1.73m 39 (L) FANNIE High Sensitivity <12 ng/L 17 (H) 18 (H) IMPRESSION: Ms. Angulo is a 83 year old female who presents for consultation regarding chronic pericarditis with pericardial effusion, Hypertension, LBBB, aortic stenosis Chronic pericarditis with pericardial effusion - Stable on colchicine 0.6 mg every other day -Aspirin 81 mg/day -inflammatory markers when chest pain or other pericardial symptoms - MRI cancelled today due to elevated systolic BP Hypertension - patient on 5 different anti-hypertensives - Sees Dr. Cifuentes for HTN -uncontrolled today at 220/89 Aortic stenosis - Last ECHO showed severe as per the calculated STEVE, while the dimensionless index and transaortic gradients suggest moderate aortic stenosis -close follow up needed -discussed about potential TAVR if needed in future PLAN: Called [facility], pt will need to be admitted for HTN control and ,od-severe SIGNATURE: Lynette Ervin APRN.CNP DATE of SERVICE: January 29, 2023 TIME of SERVICE: 9:58 AM I spent 60 minutes in this visit, with more than 50% of the time devoted to patient counseling. Lynette Ervin APRN.CNP 01/29/2023 documented in this encounterSelect [facility] [place]04-28-2023 Miscellaneous Notes* Telephone Encounter - Concepcion Haile - 01/24/2023 4:38 PM EDT Patient was asking about who had prescribed aspirin for her. [facility] * Telephone Encounter - Concepcion Haile - 01/17/2023 11:30 AM EDT January 17, 2023 Patient Contact Number: [phone] Patient last seen within the last year: Yes Last office visit: 01-08-23 with Elizabeth Powers Next appt: 03-11-23 with Elizabeth Powers Reason For Call: Follow-up Questions: For medication aspirin patient said called around to try and find out who prescribed, etc. Was not able to get any information yet. Side Note: I did the update tab to initiate out side records upload into patients chart which multiple populated today. Physician: Angelito Cifuentes MD Patient was informed that non-urgent calls may be returned within the next three business days. Yes Concepcion Haile documented in this encounterSelect [facility] [place]04-14-2023 Miscellaneous Notes* Telephone Encounter - Madison Voss - 01/10/2023 9:47 AM EDT Records request sent to [facility] documented in this encounterSelect [facility] [place]03-08-2023 Miscellaneous Notes* Telephone Encounter - Concepcion Haile - 12/04/2022 10:00 AM EST Patient called today requesting to send her office visit note by mail to her home address. Appointment with Dr. Cifuentes was mailed. Concepcion documented in this encounterSelect Medical [facility] [place]03-07-[address] Guevara [facility] December 03, 2022 9:05am Note Date/Time December 03, 2022 7:36 am [facility] Medical Records Department [address] [place] [address] Instructions for Home/Discharge Instructions 12/03/22 0736 MR#: [id number] Acct: [id number] Name: LYNETTE ANGULO Rep #:[id number] : 1940 82 From: Lamonte Anderson PCP: Dr. Jorge Benavides MD Status:ADM IN Discharge Instructions Diet Discharge Diet: Low fat / Low cholesterol and 2000 mg Sodium Diet Activity Discharge Activity: Return to Normal Activity Weight Bearing Status: Weight bearing as tolerated Dressing / Incision Call your doctor if you observe: Fever of 101 or Higher, Coldness, Increased Pain, Numbness or Tingling, Change in Color, Inability to urinate, Inability to have a bowel movement, Using more than 1 pad per hour, Shortness of breath, Dizziness, Fainting spells, Swelling in the ankles, Chest pain, Prolonged hiccupping, Increased palpitations (irregular heartbeat) and Calf discomfort Follow Up Care When: IN 2 WEEKS Test Results: Test results from this visit will be discussed in further detail at your follow- up appointment, if applicable. Discharge Plan Admission Admit Date/Time: 12/01/22 19:24 Primary Reason for Your Visit: NSTEMI Attending Provider: Lamonte Guevara Primary Care Provider: Jorge Benavides Consulting Providers: Brady Frye ; Harrison Wright Discharge Orders/Prescriptions Prescriptions: New amlodipine 10 mg Tablet 10 mg PO QHS Qty: 30 2RF losartan 100 mg Tablet 100 mg PO QHS Qty: 30 0RF Continued (DME) Oral Appliance See Rx Instructions .ROUTE .MEDSUPPLY Qty: 1 0RF Rx Instructions: As directed aspirin [Adult Low Dose Aspirin] 81 mg tablet,delayed release (DR/EC) 81 mg PO DAILY colchicine 0.6 mg tablet 0.6 mg PO .qod latanoprost 0.005 % Drops 1 drp EACH EYE QHS chlorthalidone 25 mg Tablet 12.5 mg PO DAILY nebivolol 10 mg Tablet 10 mg PO QHS coexe-7h-dke-epa-fish oil 350-400 mg Capsule 830 cap PO DAILY Fiber Gummies 2 gram Tablet,Chewable 2 g PO BID Kerendia 10 mg Tablet 10 mg PO DAILY glimepiride 2 mg tablet 1 mg PO DAILY cephalexin 500 mg capsule 500 mg PO BID Rx Instructions: Started on 11/30/22 pantoprazole 40 mg tablet,delayed release (DR/EC) 40 mg PO DAILY lovastatin 20 mg tablet 20 mg PO QHS doxazosin 2 mg tablet 2 mg PO QHS Rx Instructions: take this at bedtime levothyroxine 125 mcg tablet 125 mcg PO DAILY Qty: 90 0RF Discontinued amlodipine-olmesartan 10-40 mg Tablet 1 tab PO QHS Referrals / Follow Up: Jorge Benavides MD [Primary Care Provider] - Jesse Sykes MD [Med Staff - Active Staff] - (as scheduled) Disposition Disposition (needs filled in before D/C Order can be placed): Home, Self Care 12/03/22 0905<Electronically signed by Lamonte Guevara MD>Lamonte Guevara MD CC: Dr. Jorge Benavides MD; Dr. Harrison Wright MD; Dr. Brady Frye MD ~ Signed [facility] Work Phone: 1(543) 672-146103-07-[address] Guevara [facility] December 03, 2022 9:31am Note Date/Time December 03, 2022 7:36 am [facility] Medical Records Department [address] [place] [address] Discharge Summary 12/03/22 0736 MR#: [id number] Acct: [id number] Name: LYNETTE ANGULO Rep #:[id number] : 1940 82 From: Lamonte Anderson PCP: Dr. Jorge Benavides MD Status:ADM IN Location: [place] [address] Providers Date of Admission: 12/01/22 Date of Discharge: 12/03/22 Primary Care Physician: Dr. Jorge Benavides MD Consultations 12/01/22 20:42 Consult: Cardiology Routine Consulting Provider: Brady Frye Reason for Consult: NSTEMI EMERGENT Consult: No MD Notified: Yes Date Notified: 12/01/22 Time Notified: 20:43 Method of Notification: Verbal Method of Consult:: In-Person Reason For Visit: NSTEMI Diagnosis Discharge Diagnosis (1) NSTEMI, initial episode of care: Status: Acute Code(s): I21.4 - Non-ST elevation (NSTEMI) myocardial infarction (2) Essential hypertension: Status: Chronic Code(s): I10 - Essential (primary) hypertension (3) CKD (chronic kidney disease) stage 3, GFR 30-59 ml/min: Status: Chronic Code(s): N18.30 - Chronic kidney disease, stage 3 unspecified (4) Diabetes mellitus, type 2: Status: Chronic Code(s): E11.9 - Type 2 diabetes mellitus without complications Plan 82-year-old female was admitted with substernal chest pain started about 1 and half hours prior to ED arrival. Her chest pain was anginal quality started at rest, heavy feeling without radiation. 1. Non-STEMI, nonobstructive coronary artery disease with history of moderatelysevere aortic stenosis, TR: Patient troponin was elevated 114, 406 and 912. Twelve-lead EKG shows atrial sensed ventricular paced rhythm. Patient was takenfor cardiac cath in the morning. Cardiac cath shows nonobstructive coronary artery disease. Right dominant, EF by by echo 55%. LAD mild to moderate less than 50%, D1 proximal 40%. Circumflex and RCA less than 30%. Chest x-ray does not show acute cardiopulmonary process. Patient on aspirin. Patient had developed pericardial effusion with Xarelto. Sand Miller was consulted. Patient had echo in May 2022 reported as EF 55%, to moderate 2+ TR and LA cavity dilated. RV normal in size and systolic function. LV mildly dilated. Moderately severe aortic valve stenosis with STEVE area 1.03 cm?, AV valve openingseverely reduced with calcification, mean gradient 18 mmHg. Disparity between AV valve area size and mean gradient. 12/03: Patient was seen by fire alarm operator. Rest as mentioned above. I explained the causes of angiogram to the patient including moderately severe aortic stenosis can cause angina 2. Hypertension: Patient blood pressure is elevated. Patient has [facility] Dr. Cifuentes who prescribed olmesartan and amlodipine combination but her insurance does not cover therefore patient agreed to take separately losartan and amlodipine. On hydralazine as needed for increased blood pressure more than 180 mmHg. Chlorthalidone, doxazosin; nebivolol and losartan and amlodipine 11/27: BP has improved 146/64. Advised home BP monitoring. Patient is given a prescription for losartan and amlodipine and discontinue olmesartan amlodipine combination as it is not covered by her insurance.. Patient also follows [facility] fire alarm operator Dr. Hoffman Diabetes mellitus type II Patient was euglycemic on presentation but she got mildly hypoglycemic after NPO. Repeat glucose 88. Hold glimepiride. Accu-Cheks and coverage Humalog sliding scale 12/03: Glucose is controlled 180. Continue low-dose glimepiride. History of atrial fibrillation Paced rhythm on presentation with mild bradycardia. Nebivolol continue on. Noton anticoagulation secondary to side effects. CKD stage IIIb Stable Creatinine is maintained over 1.4-1.5. 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 Acute UTI Not worsening. On home Keflex, continued. DVT prophylaxis SCDs ordered. Discharge medication reconciliation done. Discharge follow-up instructions completed. Discharge process discussed with the patient and all questions wereanswered to patient's satisfaction. Total time spent, exact 35 minutes on discharge meds reconciliation, examination, coordination of care with nurses and ancillary staff, review of imaging and blood test and discussion with the patient on follow-up instructions. Medications at Discharge Home Medications Oral Appliance #1 ea 03/19/22 latanoprost 0.005 % eye drops 1 drp EACH EYE QHS Check with primary doctor 03/28/22 aspirin 81 mg tablet,delayed release (Adult Low Dose Aspirin) 81 mg PO DAILY antiplatelet 06/19/22 colchicine 0.6 mg tablet 0.6 mg PO .qod PERICARDITS 06/19/22 levothyroxine 125 mcg tablet 125 mcg PO DAILY Check with primary doctor #90 tabs10/07/22 cephalexin 500 mg capsule 500 mg PO BID UTI 12/01/22 chlorthalidone 25 mg tablet 12.5 mg PO DAILY blood pressure 12/01/22 doxazosin 2 mg tablet 2 mg PO QHS blood pressure 12/01/22 finerenone 10 mg tablet (Kerendia) 10 mg PO DAILY kidneys 12/01/22 glimepiride 2 mg tablet 1 mg PO DAILY blood sugar 12/01/22 inulin 2 gram chewable tablet (Fiber Gummies) 2 g PO BID soft stool 12/01/22 lovastatin 20 mg tablet 20 mg PO QHS cholesterol 12/01/22 nebivolol 10 mg tablet 10 mg PO QHS blood pressure 12/01/22 -dqt-mkh-other qgyyr0v-xspr oil 350 mg- 400 mg capsule 830 cap PO DAILY supplement 12/01/22 pantoprazole 40 mg tablet,delayed release 40 mg PO DAILY antiacid 12/01/22 amlodipine 10 mg tablet 10 mg PO QHS #30 tabs 12/03/22 losartan 100 mg tablet 100 mg PO QHS #30 tabs 12/03/22 Physical Exam Narrative Physical exam General: Alert, Oriented x3, Cooperative HEENT: Atraumatic, PERRLA, EOMI, Normocephalic Oral: No Gingival or Mucosal Lesions/ Ulcerations Neck: Supple, No JVD, Negative Carotid Bruits Lungs: Air entry diminished in bilateral lung bases. No crepitation/rhonchi Cardiovascular: Regular rate, Regular Rhythm, Normal S1, Normal S2, systolic murmur right second ICS and LLSB Abdomen: Bowel Sounds Present, Soft, Non Tender, Non-Distended : No renal angle tenderness. No suprapubic tenderness. Extremities: Right radial artery cath access site. No hematoma no edema, Capillary Refill Less than 3 Seconds Skin: No rashes, No breakdown Musculoskeletal: No Tenderness to Palpation of Joints or Extremities Neurological: Cranial nerves II-XII grossly intact, DTR 2+/4 and Symmetrical, Neuro grossly intact Psych/Mental Status: Normal Affect, Appropriate. Weight / BMI Weight Weight: 174 lb 2.643 oz Body Mass Index (BMI) 31.8 ABG / Lab / Microbiology Data Result Diagrams: 12/02/22 04:19 12/02/22 04:19 Laboratory: Laboratory Results - last 24 hr 12/02/22 11:09: POC Glucose 48 L 12/02/22 11:34: POC Glucose 67 L 12/02/22 11:46: POC Glucose 134 H 12/02/22 17:13: POC Glucose 306 H 12/03/22 00:19: POC Glucose 227 H 12/03/22 06:09: POC Glucose 180 H Radiography Diagnostic Testing: Radiology Impression Echocardiogram 12/01/22 20:42 Interpretation Summary Mild segmental systolic dysfunction (see wall motion). The estimated ejection fraction is 40 %. Septal motion consistent with IVCD. Mild concentric left ventricular hypertrophy. The left atrium is moderately enlarged. There is mild mitral annular calcification. The mitral valve chordae are thickened and/or calcified. Mild (1+) mitral valve insufficiency. Moderate (2+) tricuspid valve insufficiency. Moderately severe calcific aortic valve stenosis. Trivial pulmonic valve insufficiency. Right ventricular systolic pressure estimated to be 66 mmHg. Severe pulmonary hypertension. Stage 2 diastolic dysfunction. ICD or pacer leads identified within the right atrium ICD or pacer leads identified within the right ventricle. Ordering Physician: Harrison Wright Referring Physician: JORGE BENAVIDES Performed By: Rajani Garcia RCS Meaningful Use Info Meaningful Use Diagnoses (Choose all that apply): AMI AMI/Post PCI/Angioplasty Aspirin given w/in 24hrs of arrival?: Yes ASA at discharge?: Yes Statins at discharge?: Yes Gregorio/ARB at discharge?: Yes Beta Ricarda at discharge?: Yes Done w/ Acute MS measure.: Yes Discharge Plan Admission Admit Date/Time: 12/01/22 19:24 Primary Reason for Your Visit: NSTEMI Attending Provider: Lamonte Guevara Primary Care Provider: Jorge Benavides Consulting Providers: Brady Frye ; Harrison Wright Discharge Orders/Prescriptions Prescriptions: New amlodipine 10 mg Tablet 10 mg PO QHS Qty: 30 2RF losartan 100 mg Tablet 100 mg PO QHS Qty: 30 0RF Continued (DME) Oral Appliance See Rx Instructions .ROUTE .MEDSUPPLY Qty: 1 0RF Rx Instructions: As directed aspirin [Adult Low Dose Aspirin] 81 mg tablet,delayed release (DR/EC) 81 mg PO DAILY colchicine 0.6 mg tablet 0.6 mg PO .qod latanoprost 0.005 % Drops 1 drp EACH EYE QHS chlorthalidone 25 mg Tablet 12.5 mg PO DAILY nebivolol 10 mg Tablet 10 mg PO QHS bkshs-3h-igt-epa-fish oil 350-400 mg Capsule 830 cap PO DAILY Fiber Gummies 2 gram Tablet,Chewable 2 g PO BID Kerendia 10 mg Tablet 10 mg PO DAILY glimepiride 2 mg tablet 1 mg PO DAILY cephalexin 500 mg capsule 500 mg PO BID Rx Instructions: Started on 11/30/22 pantoprazole 40 mg tablet,delayed release (DR/EC) 40 mg PO DAILY lovastatin 20 mg tablet 20 mg PO QHS doxazosin 2 mg tablet 2 mg PO QHS Rx Instructions: take this at bedtime levothyroxine 125 mcg tablet 125 mcg PO DAILY Qty: 90 0RF Discontinued amlodipine-olmesartan 10-40 mg Tablet 1 tab PO QHS Referrals / Follow Up: Jorge Benavides MD [Primary Care Provider] - Jesse Sykes MD [Med Staff - Active Staff] - (as scheduled) Disposition Disposition (needs filled in before D/C Order can be placed): Home, Self Care Charges/Coding Visit Charges Inpatient E&M: 14240 Subs Hosp L3 12/03/22930 <Electronically signed by Lamonte Guevara MD> Cosigner Signature (if applicable): CC: Dr. Jorge Benavides MD; Dr. Lamonte Guevara MD~ Signed [facility] Work Phone: 1(298) 231-517403-06-[address] Guevara [facility] December 02, 2022 12:52pm Note Date/Time December 02, 2022 8:13 am [facility] Medical Records Department [address] [place] [address] Progress Note - Hospitalist 12/02/22809 MR#: [id number] Acct: [id number] Name: LYNETTE ANGULO Rep #:[id number] : 1940 82 From: Lamonte Anderson PCP: Dr. Jorge Benavides MD Status:ADM IN Location: [place] [address]- Reason for Visit Reason for Visit: Diagnoses Type 2 diabetes mellitus without complications (12/01/22) Hyperlipidemia, unspecified (12/01/22) Essential (primary) hypertension (12/01/22) Non-ST elevation (NSTEMI) myocardial infarction (12/01/22) Other specified diseases of pericardium (12/01/22) Nonrheumatic aortic (valve) stenosis (12/01/22) Paroxysmal atrial fibrillation (12/01/22) Chronic kidney disease, stage 3 unspecified (12/01/22) Personal history of other diseases of the circulatory system (12/01/22) Personal history of other diseases of urinary system (12/01/22) Presence of cardiac pacemaker (12/01/22) Subjective Subjective Follow-up for non-STEMI. Patient has chronically high blood pressure. Cardiac cath was done in the morning. 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 Objective Data Objective Data Vital Signs: Vital Signs Temp Pulse Resp BP Pulse Ox O2 Del Method O2 Flow Rate 98.1 F 47 L 18 158/62 H 100 Nasal Cannula 2 12/02/22 08:00 12/02/22 08:00 12/02/22 08:00 12/02/22 08:00 12/02/22 08:00 12/02/22 08:00 12/02/22 08:00 Oxygen Flow Rate (L/min) 2 Oxygen Delivery Method Nasal Cannula Weight: 174 lb 2.643 oz Body Mass Index (BMI) 31.8 Intake & Output: Intake and Output for Last 24 Hours 11/30/22 12/01/22 12/02/22 23:59 23:59 23:59 Intake Total 120 / 120 Balance 120 / 120 Lab / Micro Data Result Diagrams: 12/02/22 04:19 12/02/22 04:19 Labs: Laboratory Results - last 24 hr 12/01/22 17:18: WBC 6.3, RBC 4.00 L, Hgb 12.2, Hct 38.4, MCV 96.0, MCH 30.5, MCHC 31.8 L, RDW Std Deviation 49.1 H, RDW Coeff of Ignacia 13.8, Plt Count 261, MPV 9.7, Immature Gran % (Auto) 0.300, Neut % (Auto) 55.8, Lymph % (Auto) 34.1, Travis% (Auto) 8.8, Eos % (Auto) 0.8, Baso % (Auto) 0.2, Absolute Neuts (auto) 3.5, Absolute Lymphs (auto) 2.16, Nucleated RBC % 0 12/01/22 17:18: Sodium 136, Potassium 3.8, Chloride 104, Carbon Dioxide 25.0, Anion Gap 7, BUN 42 H, Creatinine 1.48 H, Estim Creat Clear Calc 23.58, Est GFR (MDRD) Af Amer 43 L, Est GFR (MDRD) Non-Af 36 L, BUN/Creatinine Ratio 28.4 H, Glucose 99, Calcium 10.4 H, Troponin I High Sens 114 H 12/01/22 19:20: Troponin I High Sens 406 H* 12/01/22 22:25: Troponin I High Sens 812 H* 12/02/22 01:30: POC Glucose 148 H 12/02/22 04:19: WBC 5.1, RBC 3.64 L, Hgb 11.0 L, Hct 36.2 L, MCV 99.5 H, MCH 30.2, MCHC 30.4 L, RDW Std Deviation 50.0 H, RDW Coeff of Ignacia 13.7, Plt Count 219, MPV 10.6, Immature Gran % (Auto) 0.400, Neut % (Auto) 73.0 H, Lymph % (Auto) 20.1, Travis % (Auto) 6.1, Eos % (Auto) 0.2, Baso % (Auto) 0.2, Absolute Neuts (auto) 3.7, Absolute Lymphs (auto) 1.03, Nucleated RBC % 0 12/02/22 04:19: Sodium 138, Potassium 4.4, Chloride 105, Carbon Dioxide 23.0, Anion Gap 10, BUN 40 H, Creatinine 1.47 H, Estim Creat Clear Calc 23.74, Est GFR(MDRD) Af Amer 44 L, Est GFR (MDRD) Non-Af 36 L, BUN/Creatinine Ratio 27.2 H, Glucose 115 H, Calcium 9.9, Triglycerides 44, Cholesterol 157, LDL Cholesterol 79, VLDL Cholesterol 9, HDL Cholesterol 69 12/02/22 06:04: POC Glucose 88 Radiography Diagnostic Testing: Radiology Impression Chest X-Ray 12/01/22 17:35 IMPRESSION: There are no acute findings. Electronically Signed: Octavio Berg MD at 18:09 EST Reading Location ID and State: [facility] / [place] , Service support , Rhythm Strip Rhythm Strip: Paced Rate: 74 Ectopy: None Physical Exam Narrative Physical exam General: Alert, Oriented x3, Cooperative HEENT: Atraumatic, PERRLA, EOMI, Normocephalic Oral: No Gingival or Mucosal Lesions/ Ulcerations Neck: Supple, No JVD, Negative Carotid Bruits Lungs: Air entry diminished in bilateral lung bases. No crepitation/rhonchi Cardiovascular: Regular rate, Regular Rhythm, Normal S1, Normal S2, systolic murmur right second ICS and LLSB Abdomen: Bowel Sounds Present, Soft, Non Tender, Non-Distended : No renal angle tenderness. No suprapubic tenderness. Extremities: Right radial artery cath access site. No hematoma no edema, Capillary Refill Less than 3 Seconds Skin: No rashes, No breakdown Musculoskeletal: No Tenderness to Palpation of Joints or Extremities Neurological: Cranial nerves II-XII grossly intact, DTR 2+/4 and Symmetrical, Neuro grossly intact Psych/Mental Status: Normal Affect, Appropriate. Assessment & Plan Assessment/Plan (1) NSTEMI, initial episode of care: (2) Essential hypertension: (3) CKD (chronic kidney disease) stage 3, GFR 30-59 ml/min: (4) Diabetes mellitus, type 2: PLAN: Plan 82-year-old female was admitted with substernal chest pain started about 1 and half hours prior to ED arrival. Her chest pain was anginal quality started at rest, heavy feeling without radiation. 1. Non-STEMI, nonobstructive coronary artery disease with history of moderatelysevere aortic stenosis, TR: Patient troponin was elevated 114, 406 and 912. Twelve-lead EKG shows atrial sensed ventricular paced rhythm. Patient was takenfor cardiac cath in the morning. Cardiac cath shows nonobstructive coronary artery disease. Right dominant, EF by by echo 55%. LAD mild to moderate less than 50%, D1 proximal 40%. Circumflex and RCA less than 30%. Chest x-ray does not show acute cardiopulmonary process. Patient on aspirin. Patient had developed pericardial effusion with Xarelto. Sand Miller was consulted. Patient had echo in May 2022 reported as EF 55%, to moderate 2+ TR and LA cavity dilated. RV normal in size and systolic function. LV mildly dilated. Moderately severe aortic valve stenosis with STEVE area 1.03 cm?, AV valve openingseverely reduced with calcification, mean gradient 18 mmHg. Disparity between AV valve area size and mean gradient. Hypertension: Patient blood pressure is elevated. Patient has seen [facility] hypertension specialist Dr. Cifuentes who prescribed olmesartan and amlodipine combination but her insurance does not cover therefore patient agreedto take separately losartan and amlodipine. On hydralazine as needed for increased blood pressure more than 180 mmHg. Chlorthalidone, doxazosin; nebivolol and Finerenone continued Monitor BP. Diabetes mellitus type II Patient was euglycemic on presentation but she got mildly hypoglycemic after NPO. Repeat glucose 88. Hold glimepiride. Accu-Cheks and coverage Humalog sliding scale History of atrial fibrillation Paced rhythm on presentation with mild bradycardia. Nebivolol continue on. Noton anticoagulation secondary to side effects. CKD stage IIIb Stable Trend BMP Acute UTI Not worsening. On home Keflex, continued. DVT prophylaxis SCDs ordered. Charges/Coding Visit Charges Inpatient E&M: 24617 Subs Hosp L2 12/02/22 1252 <Electronically signed by Lamonte Guevara MD> Cosigner Signature (if applicable): CC: ~ Signed [facility] Work Phone: 1(179) 247-341703-06-[address] Frye [facility] December 02, 2022 8:05am Note Date/Time December 02, 2022 7:25 am [facility] Medical Records Department [address] [place] [address] Consultation - Cardiology 12/02/22723 MR#: [id number] Acct: [id number] Name: LYNETTE ANGULO Rep #:[id number] : 1940 82 From: Brady Frye MD PCP: Dr. Jorge Benavides MD Status:ADM IN Location: [place] [address] Assessment & Plan Assessment/Plan (1) NSTEMI, initial episode of care: PLAN: The patient presented with symptoms which she states is different from hersymptoms related to her pericardial disease process. She has had objective findings by cardiac enzymes concerning for a non-ST segment elevation MS. Her ECG continues to demonstrate an underlying electronic atrial paced rhythm with a left bundle branch block pattern. Her previous noninvasive and invasive cardiovascular test performed locally and through the [facility] system were reviewed. At the present time she will continue to be monitored. She will continue medical therapy. At the moment this includes her aspirin 81 mg p.o. daily, her beta-ricarda with nebivolol, her medical therapy with losartan 100 mg p.o. nightly and amlodipine at 10 mg p.o. nightly, and her atorvastatin at 5 mg p.o. daily-dose may need to be adjusted. She has been hesitant to initiate any anticoagulant therapy based upon her concerns of her previous pericardial disease process with pericarditis and pericardial effusion requiring pericardiocentesis while she was on oral systemic anticoagulant therapy. She can have a follow-up echocardiogram to reassess her left ventricular wall motion and systolic function. She has been recommended for further evaluation with diagnostic cardiac catheterization. The procedure and risks were discussed with her. She is agreeable to this approach. (2) PAF (paroxysmal atrial fibrillation): PLAN: The patient has a history of paroxysmal atrial fibrillation. She is not currently on oral systemic anticoagulant therapy based upon the concerns above. To the best of her knowledge she does not recall her [facility] physicians discussing with her proceeding with a left atrial appendage occluder type device. This maybe something that will need to be considered in her future if she cannot be on oral systemic anticoagulant therapy to minimize her risk of atrial fibrillation related thromboembolic disease and CVA. (3) History of permanent cardiac pacemaker placement: PLAN: The patient has a permanent pacemaker. It has been interrogated in the past. It appears she paces in the atria predominantly. Her battery longevity has been stable. (4) Nonrheumatic aortic valve stenosis: PLAN: The patient does have underlying aortic valve stenosis. She has been evaluated noninvasively for this as noted by her aforementioned studies. This does need to be taken into consideration with future ongoing evaluation andcare. (5) Chronic pericarditis with effusion: PLAN: The patient has a history of pericarditis with pericardial effusion and pericardiocentesis (while on anticoagulant therapy with rivaroxaban). She has been on chronic medical therapy with colchicine at 0.6 mg p.o. q. other day. At the moment she does not appear to have symptoms as she did in the past associated with her pericarditis. Her examination does not demonstrate an obvious pericardial friction rub at thistime. Her ECG is as noted above. She can be followed with an echocardiogram to monitor for any obvious changes with respect to this disease process. Otherwise she will continue her chronic medical therapy. She will proceed with her other cardiovascular evaluation as noted. (6) HLD (hyperlipidemia): QUALIFIERS: Hyperlipidemia type: unspecified Qualified Code(s): E78.5 - Hyperlipidemia, unspecified PLAN: She has a history of hyperlipidemia. She has been on low-dose lipid-lowering therapy with her atorvastatin. Depending upon her findings with respect any obvious underlying CAD process she may need to have this dose increased as tolerated. (7) History of hypertension: PLAN: The patient states she has had difficulty controlling her blood pressure. She has been seen by multiple physicians for this. She is continuing her medical therapy as described above. Her blood pressure can be monitored and her medicines adjusted as needed. (8) History of chronic kidney disease: PLAN: The patient also has a history of chronic renal insufficiency. This may be secondary to her multiple medical issues. At the moment her creatinine level is somewhat lower than it was in September of this year. This will need to be monitored as she progresses through her hospital course. Addt'l Comments The patient's case has been discussed at length with the patient and reviewed previously with the [facility] staff. Comment: Time spent in the patient's overall evaluation, examination, review of medical records, review of her radiologic studies, review of cardiovascular studies, discussion/communication, placing orders, documentation, etc.: 60 minutes. HPI Consult Data Date of Consult: 12/02/22 HPI Narrative HPI Narrative: LYNETTE ANGULO, is a 82 year old white female who presents for cardiovascular consultation based upon concerns of an acute non-ST segment elevation MS superimposed upon a cardiovascular history of atrial fibrillation, permanent pacemaker placement, valvular heart disease with aortic valve stenosis, pericarditis with associated pericardial effusion (while on anticoagulant therapy with rivaroxaban) status post pericardiocentesis-remote, hyperlipidemia,hypertension, diabetes mellitus, chronic renal insufficiency, and CLIFFORD. The patient states that she was visiting family and while sitting in the automobile and waiting to leave she developed chest discomfort. She describes her discomfort as a heavy pressure sensation as she points to the center of her chest. She states it did not necessarily radiate to her back area as her previous pericarditis did. At the time she did not have ongoing nausea or emesis or acute dyspnea nor did she become diaphoretic. However, based upon hersymptoms, she elected to present to the hospital for further evaluation. She states in the emergency department she was treated with nitroglycerin sublingual. She is unsure whether there is any significant change in her discomfort at that time. She subsequent was treated with IV morphine. She states this led to nausea and emesis. She was then treated with IV Zofran. She notes eventually her discomfort dissipated. After arriving in the PCU she did have a meal with chicken noodle soup. She states after that she had additional nausea and emesis. She has denied a history of orthopnea or PND or ongoing peripheral pitting edema. She states there is been no near-syncope or syncope. Her initial high-sensitivity troponin I level was 114. It is subsequently increased to 812. Her ECG demonstrated what appeared to be an underlying electronic atrial paced rhythm with an underlying left bundle branch block pattern. Her chest x- ray was reviewed. It appeared to demonstrate a mgvq-[id number]-[id number] pacemaker device with no obvious acute cardiopulmonary disease process. She has undergone previous noninvasive and invasive studies at [facility] as well as noninvasive studies through the [facility] system. She states her previous pericarditis with pericardial effusion requiring pericardiocentesis was performed through the [facility] system. [facility] Medical History Abnormal cardiac enzyme level Anxiety Atrial fibrillation Bradycardia Carotid bruit Chronic pericarditis with effusion Chronic renal failure, stage 3a Diabetes Diabetes mellitus, type 2 Essential hypertension Glaucoma Gout Hemoptysis HLD (hyperlipidemia) Hypersomnolence Hyperthyroidism Hypothyroidism Kidney disease Left bundle branch block (LBBB) LVH (left ventricular hypertrophy) Musculoskeletal back pain CLIFFORD (obstructive sleep apnea) Osteoarthritis PAF (paroxysmal atrial fibrillation) Pericardial effusion (08/23/20) Physical debility Secondary pulmonary arterial hypertension Sick sinus syndrome Sleep apnea Home Medications Oral Appliance #1 ea 03/19/22 [Rx Last Taken Unknown] latanoprost 0.005 % eye drops 1 drp EACH EYE QHS Check with primary doctor 03/28/22 [History Last Taken Unknown] aspirin 81 mg tablet,delayed release (Adult Low Dose Aspirin) 81 mg PO DAILY antiplatelet 06/19/22 [History Last Taken Unknown] colchicine 0.6 mg tablet 0.6 mg PO .qod PERICARDITS 06/19/22 [History Last Taken Unknown] levothyroxine 125 mcg tablet 125 mcg PO DAILY Check with primary doctor #90 tabs10/07/22 [Rx Last Taken Unknown] amlodipine 10 mg-olmesartan 40 mg tablet 1 tab PO QHS blood pressure 12/01/22 [History Last Taken Unknown] cephalexin 500 mg capsule 500 mg PO BID UTI 12/01/22 [History Last Taken Unknown] chlorthalidone 25 mg tablet 12.5 mg PO DAILY blood pressure 12/01/22 [History Last Taken Unknown] doxazosin 2 mg tablet 2 mg PO QHS blood pressure 12/01/22 [History Last Taken Unknown] finerenone 10 mg tablet (Kerendia) 10 mg PO DAILY kidneys 12/01/22 [History Last Taken Unknown] glimepiride 2 mg tablet 1 mg PO DAILY blood sugar 12/01/22 [History Last Taken Unknown] inulin 2 gram chewable tablet (Fiber Gummies) 2 g PO BID soft stool 12/01/22 [History Last Taken Unknown] lovastatin 20 mg tablet 20 mg PO QHS cholesterol 12/01/22 [History Last Taken Unknown] nebivolol 10 mg tablet 10 mg PO QHS blood pressure 12/01/22 [History Last Taken Unknown] rbeql5-dfh-snq-other hvsth3h-mvht oil 350 mg- 400 mg capsule 830 cap PO DAILY supplement 12/01/22 [History Last Taken Unknown] pantoprazole 40 mg tablet,delayed release 40 mg PO DAILY antiacid 12/01/22 [History Last Taken Unknown] Allergy/AdvReac Type Severity Reaction Status Date / Time benazepril [From Lotensin] Allergy Unknown Verified 12/01/22 16:48 Iodine and Iodide Containing Allergy Shortness Verified 12/01/22 16:48 Produc of breath meperidine [From Demerol] Allergy Unknown Verified 12/01/22 16:48 metformin [From Janumet] Allergy Pain in Verified 12/01/22 16:48 joints Penicillins Allergy Hives Verified 12/01/22 16:48 propoxyphene [From Darvon] Allergy Unknown Verified 12/01/22 16:48 shellfish derived Allergy Shortness Verified 12/01/22 16:48 of breath sitagliptin [From Janumet] Allergy Pain in Verified 12/01/22 16:48 joints spironolactone Allergy Unknown Verified 12/01/22 16:48 rivaroxaban [From Xarelto] AdvReac Severe PERICARDIAL Verified 12/01/22 16:48 EFFUSION hydrochlorothiazide AdvReac NEEDS Verified 12/01/22 16:48 FOLLOW-UP lisinopril AdvReac NEEDS Verified 12/01/22 16:48 FOLLOW-UP metoprolol AdvReac Shortness Verified 12/01/22 16:48 of breath simvastatin AdvReac Pain in Verified 12/01/22 16:48 joints Family History Mother Cancer Uterine Thyroid disorder Father Cancer lung Hypertension Surgical History Failed total knee replacement History of parathyroidectomy (2009) History of permanent cardiac pacemaker placement (06/2018) History of thyroidectomy, total (2009) History of tonsillectomy and adenoidectomy History of total hysterectomy 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/2022) Social History household members: spouse and other number of children: 2 current occupational status: retired current occupation: worked in the [employer] at [employer] Smoking Status: Never smoker alcohol intake: never substance use type: does not use caffeine: No do you feel safe at home: Yes ROS Constitutional Constitutional: Reports as per HPI Eyes Eyes: Reports as per HPI ENT HEENT: Reports as per HPI Cardiovascular Cardiovascular: Reports chest pain at rest, nausea and vomiting Respiratory/Chest Respiratory/Chest: Reports as per HPI Gastrointestinal Gastrointestinal: Reports nausea and vomiting Genitourinary Genitourinary: Reports as per HPI Musculoskeletal Musculoskeletal: Reports as per HPI Integumentary Integumentary: Reports as per HPI Neurologic Neurologic: Reports as per HPI Physical Exam Const alert, oriented x3 and no apparent distress Orientation / Consciousness: awake HEENT normocephalic, head/scalp atraumatic and hearing grossly normal bilaterally Eyes PERRL, EOMs intact bilaterally, conjunctivae normal and no scleral icterus Neck full ROM, supple and no JVD Carotids: delayed carotid upstroke Resp normal respiratory effort and clear to auscultation bilaterally Cardio regular rate, regular rhythm and S1 normal heart sound Heart Sounds: murmur systolic III/ harsh late left sternal border, LVOT and sternal notch to carotid arteries and abnormal sounds diminished A2 GI normal to inspection, nondistended, normoactive bowel sounds Extremity no pedal edema Skin no rashes or lesions noted Psych mental status grossly normal Risk Stratification Risk Stratification Applicable: Yes Age >/= 65: Yes >/= 3 CAD Risk Factors (HTN, HLD, DM, family hx of CAD, or current smoker): Yes Aspirin Use in the Past 7 Days: Yes Severe Angina (>/= episodes in 24 hours): Yes EKG ST Changes >/= 0.5mm: No Positive Cardiac Marker: Yes KUNAL Risk Stratification Score: 5 KUNAL % Risk: 25% Risk Procedure Criteria Type of Procedure Procedure Type: Elective Elective Risks - COVID COVID Risk Discussion: The surgeon/proceduralist and patient have discussed in detail the risk of exposure to and/or potential harm posed by the COVID-19 virus with having a surgery/procedure at this time versus the risk of delaying the surgery/procedure. It is not possible to know either the risk of delaying the surgery or procedure or chance of getting an infection with perfect accuracy, but a joint decision was made between the patient and the surgeon/proceduralist to proceed at this time with the scheduled surgery/procedure as indicated on theconsent form. Objective Data Vital Signs: Vital Signs Temp Pulse Resp BP Pulse Ox O2 Del Method O2 Flow Rate 97.5 F L 45 L 20 H 130/55 H 96 Nasal Cannula 2 12/02/22 06:00 12/02/22 06:00 12/02/22 06:00 12/02/22 06:00 12/02/22 06:00 12/02/22 06:00 12/02/22 06:00 Oxygen Flow Rate (L/min) 2 Oxygen Delivery Method Nasal Cannula Weight: 174 lb 2.643 oz Body Mass Index (BMI) 31.8 Intake & Output: Intake and Output for Last 24 Hours 11/30/22 12/01/22 12/02/22 23:59 23:59 23:59 Intake Total 120 / 120 Balance 120 / 120 Lab / Micro Data Result Diagrams: 12/02/22 04:19 12/02/22 04:19 Labs: Laboratory Results - last 24 hr 12/01/22 17:18: WBC 6.3, RBC 4.00 L, Hgb 12.2, Hct 38.4, MCV 96.0, MCH 30.5, MCHC 31.8 L, RDW Std Deviation 49.1 H, RDW Coeff of Ignacia 13.8, Plt Count 261, MPV9.7, Immature Gran % (Auto) 0.300, Neut % (Auto) 55.8, Lymph % (Auto) 34.1, Travis% (Auto) 8.8, Eos % (Auto) 0.8, Baso % (Auto) 0.2, Absolute Neuts (auto) 3.5, Absolute Lymphs (auto) 2.16, Nucleated RBC % 0 12/01/22 17:18: Sodium 136, Potassium 3.8, Chloride 104, Carbon Dioxide 25.0, Anion Gap 7, BUN 42 H, Creatinine 1.48 H, Estim Creat Clear Calc 23.58, Est GFR (MDRD) Af Amer 43 L, Est GFR (MDRD) Non-Af 36 L, BUN/Creatinine Ratio 28.4 H, Glucose 99, Calcium 10.4 H, Troponin I High Sens 114 H 12/01/22 19:20: Troponin I High Sens 406 H* 12/01/22 22:25: Troponin I High Sens 812 H* 12/02/22 01:30: POC Glucose 148 H 12/02/22 04:19: WBC 5.1, RBC 3.64 L, Hgb 11.0 L, Hct 36.2 L, MCV 99.5 H, MCH 30.2, MCHC 30.4 L, RDW Std Deviation 50.0 H, RDW Coeff of Ignacia 13.7, Plt Count 219, MPV 10.6, Immature Gran % (Auto) 0.400, Neut % (Auto) 73.0 H, Lymph % (Auto) 20.1, Travis % (Auto) 6.1, Eos % (Auto) 0.2, Baso % (Auto) 0.2, Absolute Neuts (auto) 3.7, Absolute Lymphs (auto) 1.03, Nucleated RBC % 0 12/02/22 04:19: Sodium 138, Potassium 4.4, Chloride 105, Carbon Dioxide 23.0, Anion Gap 10, BUN 40 H, Creatinine 1.47 H, Estim Creat Clear Calc 23.74, Est GFR(MDRD) Af Amer 44 L, Est GFR (MDRD) Non-Af 36 L, BUN/Creatinine Ratio 27.2 H, Glucose 115 H, Calcium 9.9, Triglycerides 44, Cholesterol 157, LDL Cholesterol 79, VLDL Cholesterol 9, HDL Cholesterol 69 12/02/22 06:04: POC Glucose 88 Rhythm Strip Rhythm Strip: Paced Rate: 74 Ectopy: None Cardiology Labs/Tests 12/01/22 17:18: WBC 6.3, RBC 4.00 L, Hgb 12.2, Hct 38.4, MCV 96.0, MCH 30.5, MCHC 31.8 L, Plt Count 261, MPV 9.7, Immature Gran % (Auto) 0.300, Neut % (Auto)55.8, Lymph % (Auto) 34.1, Travis % (Auto) 8.8, Eos % (Auto) 0.8, Baso % (Auto) 0.2, Absolute Neuts (auto) 3.5, Nucleated RBC % 0 12/01/22 17:18: Sodium 136, Potassium 3.8, Chloride 104, Carbon Dioxide 25.0, Anion Gap 7, BUN 42 H, Creatinine 1.48 H, Est GFR (MDRD) Af Amer 43 L, Est GFR (MDRD) Non-Af 36 L, BUN/Creatinine Ratio 28.4 H, Glucose 99, Calcium 10.4 H 12/02/22 04:19: WBC 5.1, RBC 3.64 L, Hgb 11.0 L, Hct 36.2 L, MCV 99.5 H, MCH 30.2, MCHC 30.4 L, Plt Count 219, MPV 10.6, Immature Gran % (Auto) 0.400, Neut %(Auto) 73.0 H, Lymph % (Auto) 20.1, Travis % (Auto) 6.1, Eos % (Auto) 0.2, Baso % (Auto) 0.2, Absolute Neuts (auto) 3.7, Nucleated RBC % 0 12/02/22 04:19: Sodium 138, Potassium 4.4, Chloride 105, Carbon Dioxide 23.0, Anion Gap 10, BUN 40 H, Creatinine 1.47 H, Est GFR (MDRD) Af Amer 44 L, Est GFR (MDRD) Non-Af 36 L, BUN/Creatinine Ratio 27.2 H, Glucose 115 H, Calcium 9.9, Triglycerides 44, Cholesterol 157, LDL Cholesterol 79, VLDL Cholesterol 9, HDL Cholesterol 69 Rhythm: Sinus with intermittent electronic atrial paced rhythm EKG: As noted above ECHO: 08-23-2020 Interpretation Summary Normal LV size. Moderate concentric left ventricular hypertrophy. Left ventricular systolic function is normal. The estimated ejection fraction is 53 %. There are no echocardiographic indications of cardiac tamponade. Though there issome respiratory variation noted. Moderate pericardial effusion. This measures 2.4 to 2.7 cm. Echo: 05-30-2022: [facility] Conclusion: Technically difficult exam due to body habitus Exam indication: Pericardial condition The abnormal regional wall motion pattern in conjunction with normal regional wall thickness is consistent with a left bundle branch block abnormal conductiondelay The left ventricle is mildly dilated. Left ventricular systolic function is mildly decreased. EF of 54?5%. Definity contrast used for endocardial border detection The right ventricle is normal in size. Right ventricular systolic function is normal. The left atrial cavity is dilated. There is moderate 2+ tricuspid valve regurgitation. Tricuspid aortic valve. There is moderately severe aortic valve stenosis causedby calcified valve and restricted opening. Aortic valve area is 1.03 cm? by continuity, VTI. The peak gradient is 29 mmHg, the mean gradient is 18 mmHg kendal dimensionless valve index is 0.33. On 2D imaging, aortic valve opening appears moderately to severely reduced. The calculated aortic valve area suggest severe aortic stenosis, while the dimensionless index and transaortic gradients suggest moderate aortic stenosis. Prior transaortic gradients: 26/12 mmHg, DI: 0.35. No pericardial effusion. Abnormal septal motion in setting of left bundle branch block. No significant constrictive physiology. Exam was compared with the prior echocardiographic exam performed on 12-12-2021. On direct comparison the recorded trans aortic gradients are mildly higher today. Stress Test: 08-14-2020 Stress Test Report Pharmacologic myocardial perfusion stress test. 80-year-old lady with a history of chest pain. Stress protocol: Resting EKG demonstrates normal sinus rhythm with a rate of 61 bpm left bundle branch block is noted.? Resting blood pressure is 126/72 mmHg.? 0.4 mg of regadenoson was infused per usual protocol followed by rapid intravenous saline flush injection continuous EKG monitoring was performed.? The maximum heart rateattained was 75 bpm which was 53% of max impacted heart rate the maximum workload was 1 metabolic equivalent.? At rest there were no ST or T wave changesnoted other than the left bundle branch block pattern present.? At peak infusionleft bundle branch block pattern persisted.? Resting blood pressures 126/72 witha final blood pressure 118/68. Myocardial perfusion protocol. 12.0 mCi of technetium 99m sestamibi was injected at rest.? 0.4 mg of regadenoson was infused per usual protocol.? At peak infusion 33.6 mCi of technetium 99m sestamibi was injected stress images were obtained stress and rest images are reconstructed and compared in the short axis vertical long horizontal long axis.? Gated images were unable to be obtained Perfusion SPECT analysis: Review of the stress images demonstrate normal uptake of tracer noted in all areas of the myocardium the resting images similar demonstrate normal uptake of tracer noted in all areas of the myocardium.? No obvious reversibility is noted to suggest ischemia. Stress test: 02-17-2022: [facility] Conclusion: 1. SPECT perfusion study: Normal 2. There is no scintigraphic evidence for inducible ischemia 3. No evidence of scarred myocardium. 4. Left ventricle is normal in size. The left ventricle systolic function is normal. 5. Right ventricle is normal in size. The right ventricle systolic function isnormal. 6. This is a low risk scan Gated stress FBP gated rest FBP: LVEF 62% -62% Conclusion: Normal pharmacologic myocardial perfusion stress test. Left bundle branch block pattern noted. Cardiac Cath: 02-16-2018 CONCLUSIONS Elevated Left Ventricular End Diastolic Pressure Normal LV size, wall motion,and systolic function LVEF: by LV gram 60 % [place] Multivessel CAD (minimal luminal irregularities) Aortic Valve Calcification- Mild Mitral Valve Insufficiency Mild RECOMMENDATIONS Risk factor modification Medical therapy DESCRIPTION OF? PROCEDURE The patient arrived to the procedure lab. The risks and benefits of the procedure as well as a full description of our services here and current unavailability of surgical backup were fully explained to the patient and/or their significant other prior to the catheterization. The Timeout was completed, verifying the correct patient and procedure. The patient's procedural site was prepped and draped in the usual fashion. Local anesthetic was given subcutaneously to right groin region with Lidocaine 2%. Using a modified Seldinger technique, arterial access was obtained via the right femoral artery, a 4Fr sheath was inserted? Left Coronary Artery selective angiography was performed in multiple views usinga 4 Fr. JL5 catheter. Right Coronary Artery selective angiography was then performed in multiple views using a 4 Fr. 3DRC catheter. Left Ventriculography was performed in SHIPMAN projection using a 4 Fr. Pigtail catheter. LV to AO pullback pressures were then recorded.The arterial sheath was pulled and manual compression applied until hemostasis is achieved. CORONARY ANGIOGRAPHY DOMINANCE:? Right Dominant LEFT HEART ASSESSMENT Left Ventricular Ejection Fraction: by LV Gram 60 % Normal LV wall motion Elevated Left Ventricular End Diastolic Pressure LVEDP: 29 mmHg LEFT MAIN: Angiographically normal LEFT ANTERIOR DECENDING ARTERY: PROX LAD: Mild calcification, Mild luminal irregularities MID LAD: Mild luminal irregularities CIRCUMFLEX ARTERY: PROX CIRC: Mild luminal irregularities MID CIRC: Mild luminal irregularities RIGHT CORONARY ARTERY: Mild luminal irregularities VALVE FINDINGS: Aortic Valve Calcification - mild Mitral Valve Insufficiency - Grade 1 AORTIC ROOT: Angiographically normal PPM: Medtronic Sara XT DR MRI: Model: [id number]: Serial No.: [id number]: Implant Date:07-01-2018 Radiography Diagnostic Testing: Radiology Impression Chest X-Ray 12/01/22 17:35 IMPRESSION: There are no acute findings. Electronically Signed: Octavio Berg MD at 18:09 EST Reading Location ID and State: [facility] / [place] , Service support , 12/02/22 0805 <Electronically signed by Brady Frye MD> Cosigner Signature (if applicable): CC: Jesse Sykes MD; Dr. Jorge Benavides MD; Dr. Harrison Wright MD; Dr. Brady Frye MD~ Signed [facility] Work Phone: [phone] 660-385403-06-2023 History and physical note Author Dr. Wright [facility] December 01, 2022 11:56pm Note Date/Time December 01, 2022 7:16 pm [facility] Medical Records Department [address] [place] [id number] H&P Exam - Hospitalist 12/01/221915 MR#: [id number] Acct: [id number] Name: LYNETTE ANGULO Rep #:[id number] : 1940 82 From: Harrison Wright MD PCP: Dr. Jorge Benavides MD Status:ADM IN Location: [place] [address] HPI - General General Date of Admission: 12/01/22 Date of Service: 12/01/22 Chief Complaint: Chest pain HPI Narrative LYNETTE ANGULO, is a 82 F with a significant history of pacemaker implantation; diabetes mellitus; atrial fibrillation and previously on Xarelto but developed epistaxis and a pericardial effusion that required drainage who presented to theemergency department with substernal chest pain that started about 1-1/2 hours prior to presentation. Of note patient was sitting in the car waiting for some eggs from her daughter. She described the chest pain as a heavy weight sitting on the chest. The chest pain was substernal; it was nonradiating. The chest pain increased with taking a deep breath. She received nitroglycerin sublingualat the emergency department but did not help with her chest pain. She received morphine and Zofran at the emergency department for her chest pain. She denies any nausea or vomiting. Associated with her symptoms is mild shortness of breath and anxiety. She saw hypertension specialist on November 27, 2022 and adjustments was made to herblood pressure medications. However insurance did not pay for one of these blood pressure medication (amlodipine?Olmesartan) so she has not been able to pick and start her prescribed amlodipine?Olmesartan. She reports that since 6 to 8 weeks before presentation she has been sleeping lying on the right side andshe has some intermittent chest pain in that position and the pain is relieved with lying on her back. [facility] Medical History Abnormal cardiac enzyme level Anxiety Atrial fibrillation Bradycardia Carotid bruit Chronic pericarditis with effusion Chronic renal failure, stage 3a Diabetes Diabetes mellitus, type 2 Essential hypertension Glaucoma Gout Hemoptysis HLD (hyperlipidemia) Hypersomnolence Hyperthyroidism Hypothyroidism Kidney disease Left bundle branch block (LBBB) LVH (left ventricular hypertrophy) Musculoskeletal back pain CLIFFORD (obstructive sleep apnea) Osteoarthritis PAF (paroxysmal atrial fibrillation) Pericardial effusion (08/23/20) Physical debility Secondary pulmonary arterial hypertension Sick sinus syndrome Sleep apnea Home Medications Oral Appliance #1 ea 03/19/22 [Rx Last Taken Unknown] latanoprost 0.005 % eye drops 1 drp EACH EYE QHS Check with primary doctor 03/28/22 [History Last Taken Unknown] aspirin 81 mg tablet,delayed release (Adult Low Dose Aspirin) 81 mg PO DAILY antiplatelet 06/19/22 [History Last Taken Unknown] colchicine 0.6 mg tablet 0.6 mg PO .qod PERICARDITS 06/19/22 [History Last Taken Unknown] levothyroxine 125 mcg tablet 125 mcg PO DAILY Check with primary doctor #90 tabs10/07/22 [Rx Last Taken Unknown] amlodipine 10 mg-olmesartan 40 mg tablet 1 tab PO QHS blood pressure 12/01/22 [History Last Taken Unknown] cephalexin 500 mg capsule 500 mg PO BID UTI 12/01/22 [History Last Taken Unknown] chlorthalidone 25 mg tablet 12.5 mg PO DAILY blood pressure 12/01/22 [History Last Taken Unknown] doxazosin 2 mg tablet 2 mg PO QHS blood pressure 12/01/22 [History Last Taken Unknown] finerenone 10 mg tablet (Kerendia) 10 mg PO DAILY kidneys 12/01/22 [History Last Taken Unknown] glimepiride 2 mg tablet 1 mg PO DAILY blood sugar 12/01/22 [History Last Taken Unknown] inulin 2 gram chewable tablet (Fiber Gummies) 2 g PO BID soft stool 12/01/22 [History Last Taken Unknown] lovastatin 20 mg tablet 20 mg PO QHS cholesterol 12/01/22 [History Last Taken Unknown] nebivolol 10 mg tablet 10 mg PO QHS blood pressure 12/01/22 [History Last Taken Unknown] regzt7-uvt-hte-other ffqer1s-dsow oil 350 mg- 400 mg capsule 830 cap PO DAILY supplement 12/01/22 [History Last Taken Unknown] pantoprazole 40 mg tablet,delayed release 40 mg PO DAILY antiacid 12/01/22 [History Last Taken Unknown] Allergy/AdvReac Type Severity Reaction Status Date / Time benazepril [From Lotensin] Allergy Unknown Verified 12/01/22 16:48 Iodine and Iodide Containing Allergy Shortness Verified 12/01/22 16:48 Produc of breath meperidine [From Demerol] Allergy Unknown Verified 12/01/22 16:48 metformin [From Janumet] Allergy Pain in Verified 12/01/22 16:48 joints Penicillins Allergy Hives Verified 12/01/22 16:48 propoxyphene [From Darvon] Allergy Unknown Verified 12/01/22 16:48 shellfish derived Allergy Shortness Verified 12/01/22 16:48 of breath sitagliptin [From Janumet] Allergy Pain in Verified 12/01/22 16:48 joints spironolactone Allergy Unknown Verified 12/01/22 16:48 rivaroxaban [From Xarelto] AdvReac Severe PERICARDIAL Verified 12/01/22 16:48 EFFUSION hydrochlorothiazide AdvReac NEEDS Verified 12/01/22 16:48 FOLLOW-UP lisinopril AdvReac NEEDS Verified 12/01/22 16:48 FOLLOW-UP metoprolol AdvReac Shortness Verified 12/01/22 16:48 of breath simvastatin AdvReac Pain in Verified 12/01/22 16:48 joints Family History Mother Cancer Uterine Thyroid disorder Father Cancer lung Hypertension Surgical History Failed total knee replacement History of parathyroidectomy (2009) History of permanent cardiac pacemaker placement (06/2018) History of thyroidectomy, total (2009) History of tonsillectomy and adenoidectomy History of total hysterectomy 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/2022) Social History household members: spouse and other number of children: 2 current occupational status: retired current occupation: worked in the [employer] at [employer] Smoking Status: Never smoker alcohol intake: never substance use type: does not use caffeine: No do you feel safe at home: Yes ROS ROS Narrative Pertinent positives and pertinent negatives as noted in HPI. All other systems were reviewed and are negative Vital Signs Vital Signs Vital Signs: 12/01/22 16:48 12/01/22 16:53 12/01/22 17:16 Temperature 97.7 F L Temperature Source Temporal Pulse Rate 64 54 L Respiratory Rate 18 Respiratory Effort Normal Blood Pressure 203/76 H 176/68 H Blood Pressure Mean 118 Pulse Ox 100 Oxygen Delivery Method Room Air 12/01/22 17:37 12/01/22 17:47 12/01/22 18:00 Temperature Temperature Source Pulse Rate 54 L 58 L 48 L Respiratory Rate 16 16 Respiratory Effort Blood Pressure 172/67 H 178/84 H 175/78 H Blood Pressure Mean 115 110 Pulse Ox 99 99 Oxygen Delivery Method Room Air Room Air 12/01/22 19:07 Temperature Temperature Source Pulse Rate 53 L Respiratory Rate 12 Respiratory Effort Blood Pressure 177/69 H Blood Pressure Mean 105 Pulse Ox 98 Oxygen Delivery Method Room Air Weight Weight: 80 kg Body Mass Index (BMI) 32.2 Physical Exam Narrative Physical exam: General: Well-nourished, well-developed. Head: Normocephalic, atraumatic, no tenderness Eyes: Vision is grossly intact. EOMI ENT, no trauma, moist mucous membranes, no rhinorrhea Neck: Nontender, No thyromegaly. CVS: Regular rate and rhythm. S1-S2 present. Murmur present. Respiratory : clear to auscultation bilaterally, chest wall nontender, no wheezing Abdomen: Soft, nontender, nondistended, normal bowel sounds, no masses : Deferred Back: Nontender, no CVA tenderness. Extremities: Nontender full range of motion, no trauma Skin: Normal color, no trauma, abrasions Neuro: Alert, oriented, cranial nerves II through XII grossly intact. Psychiatry: Normal mood. Normal affect. Not depressed. Not anxious. Results Lab / Micro Data Result Diagrams: 12/01/22 17:18 12/01/22 17:18 Labs: Laboratory Results - last 24 hr 12/01/22 17:18: WBC 6.3, RBC 4.00 L, Hgb 12.2, Hct 38.4, MCV 96.0, MCH 30.5, MCHC 31.8 L, RDW Std Deviation 49.1 H, RDW Coeff of Ignacia 13.8, Plt Count 261, MPV9.7, Immature Gran % (Auto) 0.300, Neut % (Auto) 55.8, Lymph % (Auto) 34.1, Travis% (Auto) 8.8, Eos % (Auto) 0.8, Baso % (Auto) 0.2, Absolute Neuts (auto) 3.5, Absolute Lymphs (auto) 2.16, Nucleated RBC % 0 12/01/22 17:18: Sodium 136, Potassium 3.8, Chloride 104, Carbon Dioxide 25.0, Anion Gap 7, BUN 42 H, Creatinine 1.48 H, Estim Creat Clear Calc 23.58, Est GFR (MDRD) Af Amer 43 L, Est GFR (MDRD) Non-Af 36 L, BUN/Creatinine Ratio 28.4 H, Glucose 99, Calcium 10.4 H, Troponin I High Sens 114 H Rhythm Strip Rhythm Strip: Paced Rate: 74 Ectopy: None Radiology Impression Chest X-Ray 12/01/22 17:35 IMPRESSION: There are no acute findings. Electronically Signed: Octavio Berg MD at 18:09 EST , Assessment & Plan Assessment/Plan (1) NSTEMI, initial episode of care: (2) Essential hypertension: (3) CKD (chronic kidney disease) stage 3, GFR 30-59 ml/min: (4) Diabetes mellitus, type 2: PLAN: Plan Non-STEMI Initial high sensitive troponin was 114. Repeat was 406. Trend. Place on a monitored bed at PCU Actual CXR image was independently visualized. No acute cardiopulmonary processwas noted. I agree with radiologist interpretation. Actual EKG tracing was independently visualized. EKG tracing showed atrial pacedrhythm with prolonged AV conduction. ASA 81 mg p.o. daily ordered continued. Morphine as needed for pain ordered We will check lipid panel. Statin: Allergy list include pain in joints with simvastatin. On home lovastatin. Therapeutic change with atorvastatin in the hospital With history of pericardial effusion with Xarelto hold off anticoagulation at this time. Stat EKG as needed for chest pain Discussed case with cardiology. Cardiology consult. N.p.o. after midnight pending cardiology evaluation Hypertension Blood pressure is not within goal Home amlodipine?olmesartan not able to be started by patient's outpatient since insurance did not pay. While inpatient we will start patient on amlodipine and Cozaar. Chlorthalidone, doxazosin; nebivolol and Finerenone continued As needed hydralazine ordered. Trend blood pressure and adjust blood pressure medications. Diabetes mellitus Stable Patient was euglycemic on presentation. Hold glimepiride Monitor Accu-Cheks Correction scale insulin ordered. History of atrial fibrillation Paced rhythm on presentation with mild bradycardia. Nebivolol continue on. Noton anticoagulation secondary to side effects. CKD stage IIIb Stable Trend BMP Acute UTI Not worsening. On home Keflex, continued. DVT prophylaxis SCDs ordered. Charges/Coding Visit Charges Inpatient E&M: 52629 Init Hosp L3 12/01/22 3056 <Electronically signed by Harrison Wright MD> Cosigner Signature (if applicable): CC: Dr. Jorge Benavides MD; Dr. Harrison Wright MD~ Signed [facility] Work Phone: [phone]) 770-155403-06-[address] Fall [facility] December 01, 2022 10:14pm Note Date/Time December 01, 2022 5:15 pm [facility] Medical Records Department [address] [place] [address] Emergency Department Summary 12/01/22 MR#: [id number] Acct: [id number] Name: LYNETTE ANGULO Rep #:[id number] : 1940 82 From: Juancho Fall MD PCP: Dr. Jorge Benavides MD Status:ADM IN Location: [place] [address] HPI History of Present Illness Chief Complaint: Chest Pain Detail of Chief Complaint: Midsternal chest pain at 3 PM today while seated. Informant: patient and spouse/S.O. Onset/Context/Timing Onset: Today and Hours Activity at onset: sudden Timing: Continuous Quality: Positive for Heaviness Location: Substernal Current Severity: Mild Maximum Severity: Mild Worsened By: Nothing Relieved By: Nothing Associated Symptoms: Negative for Nausea, Vomiting, Diaphoresis, Cough, Fever, Lightheadedness, Acid Reflux or Palpitations Narrative Narrative: 82-year-old female history of diabetes, chronic kidney disease, hypertension, LVH, pacemaker recently saw physicians [facility] at her blood pressure medications changed and adjusted. She never had DVT or PE before no recent travel, surgery, immobilization or hospitalization. States today she was sittingin her car waiting for her granddaughter to give her some eggs. She developed midsternal chest pain. No radiation to her neck, jaw, left arm or back. No nausea or diaphoresis really no significant shortness of breath. No hemoptysis. No new leg pain or swelling. No recent exertional dyspnea or exertional chest pain. She says she just feels exhausted. Prior Similar Symptoms: No Recent Illness/Hospitalization: No CVD Risk Factors: Positive for Hypertension, Diabetes and Hypercholesterolemia; Negative for Smoking PE Risk Factors: Negative for Recent Travel/Surgery, Recent Immobilization, Prior DVT or PE or OCP + Smoking + >/=35 TAD Risk Factors: Negative for Marfan's Syndrome [facility] Medical History Abnormal cardiac enzyme level Bradycardia Carotid bruit Chronic pericarditis with effusion Chronic renal failure, stage 3a Diabetes mellitus, type 2 Essential hypertension Glaucoma Gout Hemoptysis HLD (hyperlipidemia) Hypersomnolence Hyperthyroidism Left bundle branch block (LBBB) LVH (left ventricular hypertrophy) Musculoskeletal back pain CLIFFORD (obstructive sleep apnea) Osteoarthritis PAF (paroxysmal atrial fibrillation) Pericardial effusion (08/23/20) Physical debility Secondary pulmonary arterial hypertension Sick sinus syndrome Home Medications Oral Appliance #1 ea 03/19/22 [Rx Last Taken Unknown] cholecalciferol (vitamin D3) 125 mcg (5,000 unit) tablet (Vitamin D3) 125 mcg PODAILY supplement 03/28/22 [History Last Taken Unknown] latanoprost 0.005 % eye drops 1 drp EACH EYE QHS Check with primary doctor 03/28/22 [History Last Taken Unknown] omega 3,6,9 combination no.7 92 mg (43 mg-22 [id number]) chew tablet ([place]imore DHA) mg PO 04/15/22 [History Last Taken Unknown] aspirin 81 mg tablet,delayed release (Adult Low Dose Aspirin) 81 mg PO DAILY 06/19/22 [History Last Taken Unknown] colchicine 0.6 mg tablet 0.6 mg PO .qod PERICARDITS 06/19/22 [History Last Taken Unknown] doxazosin 2 mg tablet 2 mg PO QHS #90 tabs 06/19/22 [Rx Last Taken Unknown] inulin 2 gram chewable tablet 2 g PO DAILY 06/19/22 [History Last Taken Unknown] losartan 100 mg tablet 100 mg PO DAILY blood pressure #90 tabs 06/19/22 [Rx Last Taken Unknown] nifedipine 90 mg tablet,extended release 90 mg PO DAILY #90 tabs 06/19/22 [Rx Last Taken Unknown] vitamin B12 500 mcg-folic acid 400 mcg tablet 1 tab PO DAILY PRN supplement 06/19/22 [History Last Taken Unknown] glimepiride 2 mg tablet 2 mg PO DAILY #90 tabs 08/09/22 [Rx Last Taken Unknown] hydrochlorothiazide 12.5 mg capsule 12.5 mg PO DAILY #90 caps 08/19/22 [Rx Last Taken Unknown] lovastatin 20 mg tablet 20 mg PO QHS #30 tabs 09/02/22 [Rx Last Taken Unknown] pantoprazole 40 mg tablet,delayed release 40 mg PO DAILY 30 days #90 tabs 09/13/22 [Rx Last Taken Unknown] sennosides 8.6 mg-docusate sodium 50 mg tablet (Senokot-S) 1 tab-cap PO .COMPLEXconstipation #30 tabs 09/19/22 [Rx Last Taken Unknown] levothyroxine 125 mcg tablet 125 mcg PO DAILY Check with primary doctor #90 tabs10/07/22 [Rx Last Taken Unknown] hydralazine 50 mg tablet 50 mg PO TID #270 tabs 10/22/22 [Rx Last Taken Unknown] cephalexin 500 mg capsule 500 mg PO BID #10 caps 10/28/22 [Rx Last Taken Unknown] finerenone 10 mg tablet (Kerendia) mg PO DAILY 10/28/22 [History Last Taken Unknown] Allergy/AdvReac Type Severity Reaction Status Date / Time benazepril [From Lotensin] Allergy Unknown Verified 12/01/22 16:48 Iodine and Iodide Containing Allergy Shortness Verified 12/01/22 16:48 Produc of breath meperidine [From Demerol] Allergy Unknown Verified 12/01/22 16:48 metformin [From Janumet] Allergy Pain in Verified 12/01/22 16:48 joints Penicillins Allergy Hives Verified 12/01/22 16:48 propoxyphene [From Darvon] Allergy Unknown Verified 12/01/22 16:48 shellfish derived Allergy Shortness Verified 12/01/22 16:48 of breath sitagliptin [From Janumet] Allergy Pain in Verified 12/01/22 16:48 joints spironolactone Allergy Unknown Verified 12/01/22 16:48 rivaroxaban [From Xarelto] AdvReac Severe PERICARDIAL Verified 12/01/22 16:48 EFFUSION hydrochlorothiazide AdvReac NEEDS Verified 12/01/22 16:48 FOLLOW-UP lisinopril AdvReac NEEDS Verified 12/01/22 16:48 FOLLOW-UP metoprolol AdvReac Shortness Verified 12/01/22 16:48 of breath simvastatin AdvReac Pain in Verified 12/01/22 16:48 joints Family History Mother Cancer Uterine Thyroid disorder Father Cancer lung Hypertension Surgical History Failed total knee replacement History of parathyroidectomy (2009) History of permanent cardiac pacemaker placement (06/2018) History of thyroidectomy, total (2009) History of tonsillectomy and adenoidectomy History of total hysterectomy 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/2022) Social History household members: spouse and other number of children: 2 current occupational status: retired current occupation: worked in the [employer] at [employer] Smoking Status: Never smoker alcohol intake: never substance use type: does not use caffeine: No do you feel safe at home: Yes ROS ROS ED ROS Narrative Denies recent illness. No recent exertional shortness of breath or chest pain. Review of Systems ROS Unobtainable: Denies due to encephalopathy Constitutional Constitutional ED: Denies chills or fever(s) Eyes Eyes: Reports none ENT ENT ED: Denies ear pain Cardiovascular Cardiovascular: Reports as per HPI and chest pain; Denies palpitations or racingheartbeat Respiratory/Chest Respiratory/Chest: Denies cough or dyspnea Gastrointestinal Gastrointestinal: Denies abdominal pain, nausea or vomiting Genitourinary Genitourinary ED: Denies dysuria or hematuria Musculoskeletal Musculoskeletal: Denies arthralgias Integumentary Denies abscess Neurologic Neurologic: Denies headache(s) Psychiatric Psychiatric: Denies anxiety Endocrine Endocrinology: Denies cold intolerance Hematologic/Lymphatic Hematologic/Lymphatic: Denies easy bleeding Allergic/Immunologic Allergic/Immunologic ED: Denies mouth swelling or tongue swelling EXAM Physical Exam Narrative Exam Narrative: Well-appearing 82-year-old female. Vital signs are stable afebrile. Her blood pressure is elevated 203/76. Pulse ox of 100% on room air no signs hypoxia. H EENT exam unremarkable. Neck nontender no JVD. Lungs clear to auscultation bilaterally. Heart regular rhythm rate about 65 no murmur. She does have reproducible chest wall pain over her sternum. There is no redness or bruising. No signs of trauma. I asked the patient she has had no recent trauma to her chest or had any injury or lifting. No crepitance or subcu air. Abdomen soft nontender. Moving all 4 extremities. Calves are nontender without edema or cords. Neurologically she is awake and alert. Const Vital Signs: 12/01/22 16:48 12/01/22 16:53 12/01/22 17:16 Temperature 97.7 F L Temperature Source Temporal Pulse Rate 64 54 L Respiratory Rate 18 Respiratory Effort Normal Blood Pressure 203/76 H 176/68 H Blood Pressure Mean 118 Pulse Ox 100 Oxygen Delivery Method Room Air 12/01/22 17:37 12/01/22 17:47 12/01/22 18:00 Temperature Temperature Source Pulse Rate 54 L 58 L 48 L Respiratory Rate 16 16 Respiratory Effort Blood Pressure 172/67 H 178/84 H 175/78 H Blood Pressure Mean 115 110 Pulse Ox 99 99 Oxygen Delivery Method Room Air Room Air 12/01/22 19:07 Temperature Temperature Source Pulse Rate 53 L Respiratory Rate 12 Respiratory Effort Blood Pressure 177/69 H Blood Pressure Mean 105 Pulse Ox 98 Oxygen Delivery Method Room Air Positive well nourished and well developed; Negative for cachectic, contracturesor unkempt General Appearance ED: well developed and NAD; Negative for unkempt, cachectic, contractures or pallor Nutritional Appearance: Negative for cachectic HEENT Reports moist mucous membranes normocephalic and atraumatic; Negative for trauma or tenderness Eyes PERRL and EOMs intact bilaterally General Eye ED: Yes pale conjunctiva and scleral icterus Neck no lymphadenopathy, supple and no JVD General: Negative for tenderness Chest Wall inspection of chest normal; Negative for palpation of chest normal Chest Narrative: Tenderness in the mid sternum. No redness. No warmth. No signs of trauma or bruising. No crepitance. Reproducibly tender. Chest: tenderness Resp normal respiratory effort and clear to auscultation bilaterally Effort and Inspection: Negative for respiratory distress Auscultation: Negative for rales, rhonchi or wheezes Cardio regular rate, regular rhythm, S1 normal heart sound, S2 normal heart sound and no murmurs Peripheral Pulses: pulses 2+ throughout GI normal to inspection, nondistended, normoactive bowel sounds, soft to palpation,non-tender, non-distended and no masses Auscultation: Negative for hyperactive bowel sounds Palpation: Negative for splenomegaly or mass Back/Spine no CVA tenderness and no thoracic nor lumbar tenderness General Back: Negative for CVA tenderness Cervical Spine: Negative for cervical spine tenderness Extremity normal to inspection General Extremety ED: Negative for edema, pulses abnormal or tenderness General Extremity: Negative for edema or pulses abnormal Neuro oriented x3 and CN's II-XII intact bilaterally Sensorium / Orientation: awake, alert, oriented to person, oriented to place andoriented to time; Negative for confused, lethargic or stuporous Motor Exam: strength 5/5 throughout Psych mental status grossly normal Appearance: Negative for unkempt Attitude: No agitated Mood & Affect: Negative for depressed, anxious or tearful Skin no rashes or lesions noted and no wounds General Skin Exam: Negative for jaundice or pallor Rashes: No rashes noted Trauma: Negative for abrasion or laceration Heart Score History: Slightly/Non-Suspicious ECG: Normal Age: >/= 65 years Risk Factors: 1 or 2 Risk Factors Score: 3 MDM MDM MDM Narrative Medical decision making narrative: 82-year-old female with midsternal chest pain while seated. No cardiac history other than a pacemaker. She never had stents, bypass or cardiac disease. She has had prior pericardial effusion. She is never had a DVT or PE. No risk factors. She undergo cardiac work-up. Clinically I do not think it is a dissectionbut she does have elevated blood pressure. She has no back pain. No pain in her arm neck or jaw. We are going to try sublingual nitro and see if that changes her discomfort. The pain does seem to be reproducible but she has no history of any trauma or injury to her chest wall. Repeat exam patient doing well at 5:40 PM. Her initial nitroglycerin gave her no change in her chest pain. She will be treated with IV morphine and Zofran. Already spoke with hospitalist will admit her to the PCU. Morphine did give herrelief of her chest pain. Repeat exam she is doing well at 8 PM. Smiling and talking with her prior to admission. History & Record Review Additional record(s) reviewed:: Prior inpatient record, Prior outpatient record,Prior labs and No prior records Lab Data Attestation: I reviewed the patient's lab results. Lab results narrative: CBC unremarkable. White count of 6. H&H 12 and 38. Platelets 261. Chemistries unremarkable gap of 7 BUN of 42 creatinine 1.48 she does have a history of chronic kidney disease stage III. Glucose 99. Her troponin is elevated at 114. 2-hour troponin is elevated at 406. Labs: Laboratory Results - last 24 hr 12/01/22 12/01/22 12/01/22 17:18 17:18 19:20 WBC 6.3 RBC 4.00 L Hgb 12.2 Hct 38.4 MCV 96.0 MCH 30.5 MCHC 31.8 L RDW Std Deviation 49.1 H RDW Coeff of Ignacia 13.8 Plt Count 261 MPV 9.7 Immature Gran % (Auto) 0.300 Neut % (Auto) 55.8 Lymph % (Auto) 34.1 Travis % (Auto) 8.8 Eos % (Auto) 0.8 Baso % (Auto) 0.2 Absolute Neuts (auto) 3.5 Absolute Lymphs (auto) 2.16 Nucleated RBC % 0 Sodium 136 Potassium 3.8 Chloride 104 Carbon Dioxide 25.0 Anion Gap 7 BUN 42 H Creatinine 1.48 H Estim Creat Clear Calc 23.58 Est GFR (MDRD) Af Amer 43 L Est GFR (MDRD) Non-Af 36 L BUN/Creatinine Ratio 28.4 H Glucose 99 Calcium 10.4 H Troponin I High Sens 114 H 406 H* Radiography Chest X-Ray - ED: 1 View, Read by ED Physician, Heart, Lungs, Mediastinum, Bony Structures, No Acute Disease and Chronic Changes Diagnostic Testing: Clinical Impression(s) from Imaging Studies Chest X-Ray 12/01/22 17:35 IMPRESSION: There are no acute findings. Electronically Signed: Octavio Berg MD at 18:09 EST Reading Location ID and State: [facility] / [place] , Service support , Chest x-ray, portable, single view no acute process. Labs pacemaker in place. Rhythm Strip Rhythm Strip: Paced Rate: 74 Ectopy: None EKG Initial EKG: Attestation: I personally reviewed and interpreted this EKG as follows: Interpretation: No Acute Injury Pattern and Paced Comments: Atrial paced rhythm rate of 74. Left bundle branch block. No acute signs of MS or ischemia. Prior EKG tracings: available for review Prior: Unchanged Follow-up EKG: Attestation: I personally reviewed and interpreted this EKG as follows: Interpretation: Paced Comments: Paced rhythm rate of 46. No acute ischemia nonischemic. Unchanged from the first other than a slower rate. Unchanged from prior from April 17 Prior EKG tracings: available for review Prior: Unchanged Discharge Plan Dx/Rx/DC Orders Clinical Impression: Chest pain, Elevated troponin, History of hypertension, History of chronic kidney disease Disposition Disposition: [facility] What to do if you have Problems For any increased pain, shortness of breath, bleeding, nausea or vomiting, chestpain, or any unexpected problems, contact your Primary Care Provider. Call [facility] ([phone]) or report to the closest Emergency Room. Call 911 if necessary. 12/01/222213 <Electronically signed by Juancho Fall MD> Cosigner Signature (if applicable): CC: Dr. Jorge Benavides MD ~ Signed [facility] Work Phone: [phone] 213-341703-04-2023 Instructions* Patient Instructions* Shaggy Weston APRN.REFINERY PIPELINE OPERATOR - 11/30/2022 11:04 AM EST URINARY TRACT INFECTION GENERAL INFORMATION: A urinary tract infection (UTI) is an infection of the bladder or kidneys. A bladder infection, called cystitis, is the more common type. If the infection travels up to the kidneys, it is called pyelonephritis. This can be more serious. UTIs are a common problem in women. Having sexual relations can leave a woman more susceptible to developing a UTI, but it is not sexually transmitted like gonorrhea. Some women have a problem with recurrent UTIs. INSTRUCTIONS: 1. Your doctor prescribed an antibiotic to treat the UTI. Take exactly as directed. Be sure to takeall the medication prescribed, even if your symptoms disappear. If you stop treatment early, the infection may not be fully treated and the symptoms could come back again. 2. Get plenty of rest. You may take acetaminophen for fever and aches. 3. Drink 6 to 8 glasses of fluids, especially water, every day. This helps wash out germs from yoururinary tract. Cranberry juice or other sources of vitamin C are also good for you. 4. Urinate often, as soon as you feel the urge. Empty your bladder completely. Urinate before and after you have sex. 5. Always wipe from front to back after going to the bathroom. This pushes germs away from your bladder, rather than towards it. 6. Showers are better than baths, and you should wash the genital area daily. Avoid bubble bath or bath oils if you do take a bath. 7. Wear underwear and pantyhose with a cotton crotch. CONTACT YOUR DOCTOR: 1. You have a temperature over 102F (38.8C) after 48 hours on medication. 2. You notice blood in your urine. 3. Your symptoms don't improve in 2 days. 4. You develop nausea, vomiting, diarrhea, or a rash. 5. You develop new or unexplained symptoms. These may be related to the medication you are taking. 6. Your symptoms return after you finish treatment. RETURN TO THE EMERGENCY DEPARTMENT IF: You develop vomiting and can't keep your medication or fluids down. [facility] [place] History of Present illness Narrative* Shaggy Weston APRN.CNP - 11/30/2022 10:58 AM EST Subjective HPI A nontoxic appearing female presents to urgent care with chief complaint of possible UTI. Duration of symptoms 2 days. Associated symptoms dysuria, frequency, and urgency. Feels like she does have some urinary retention. Is able to urinate though. Patient has history of UTIs in past with similar signs and symptoms. States use of Azo today. Patient states pain is a 3/10. Patient denies any fevers,flank pain, abdominal pain, nausea, vomiting, or urological abnormalities. Is following up with urology this month. Past medical history prescription medication use allergies reviewed. .Patient presents with: Urinary Problem: frequency and retention x couple days PAST MEDICAL HISTORY Diagnosis Date Bradycardia Cancer (HCC) thyroid Diabetes (HCC) Dyslipidemia Gout Hypercholesteremia Hypertension Thyroid disease PAST SURGICAL HISTORY Procedure Laterality Date APPENDECTOMY HX CATARACT SURGERY, COMPLEX HYSTERECTOMY HX THYROIDECTOMY TOTAL/COMPLETE +parathyroid removal ALLERGIES Darvon [Propoxyphene Hcl], Iodine, Lotensin [Benazepril Hcl], Shellfish, Spironolactone, Adhesive, Demeral [Meperidine], Metoprolol, and Penicillins MEDICATIONS cinnamon bark (CINNAMON ORAL)^Take by mouth. Take 2,00mg daily.^Disp: ^Rfl: finerenone (KERENDIA) 10 mg tablet^Take 10 mg by mouth once daily.^Disp: ^Rfl: doxazosin (CARDURA) 2 mg tablet^Take 2 mg by mouth daily at bedtime.^Disp: ^Rfl: lovastatin (MEVACOR) 20 mg tablet^Take 20 mg by mouth daily at bedtime.^Disp: ^Rfl: chlorthalidone (HYGROTON) 25 mg tablet^Take 0.5 tablets by mouth once daily.^Disp: 45 tablet^Rfl: 3 amLODIPine-Olmesartan 10-40 mg tab^Take 1 tablet by mouth every evening.^Disp: 90 tablet^Rfl: 3 nebivolol (BYSTOLIC) 10 mg tablet^Take 1 tablet by mouth every evening.^Disp: 90 tablet^Rfl: 3 cholecalciferol (VITAMIN D3) 5,000 unit tab^Take 5,000 Units by mouth once daily.^Disp: ^Rfl: inulin (FIBER GUMMIES) 2 gram chew^Take by mouth. 2 chews twice a day^Disp: ^Rfl: pantoprazole DR (PROTONIX) 40 mg tablet^TAKE 1 TABLET BY MOUTH ONCE DAILY AT 6 AM^Disp: 90 tablet^Rfl: 0 levothyroxine (SYNTHROID) 125 mcg tablet^Take 125 mcg by mouth once daily.^Disp: ^Rfl: MITIGARE 0.6 mg capsule^every 48 hours.^Disp: ^Rfl: latanoprost (XALATAN) 0.005 % ophthalmic solution^Use 1 Drop in both eyes daily at bedtime.^Disp: ^Rfl: glimepiride (AMARYL) 2 mg tablet^Take 0.5 tablets by mouth daily with breakfast.^Disp: ^Rfl: (Patient taking differently: Take 2 mg by mouth daily with breakfast.) OMEGA-3S/DHA/EPA/FISH OIL (OMEGA 3 ORAL)^Take 830 mg by mouth once daily.^Disp: ^Rfl: aspirin, enteric coated (ASPIRIN, ENTERIC COATED) 325 mg EC tablet^Take 1 tablet by mouth three times daily.^Disp: 270 tablet^Rfl: 1 (Patient taking differently: Take 325 mg by mouth once daily.) No family history on file. Social History Tobacco Use Smoking status: Never Smokeless tobacco: Never Vaping Use Vaping Use: Never used Substance Use Topics Alcohol use: No Drug use: Never BP 122/80 Pulse 76 Temp 36.7 C (98.1 F) Resp 16 Wt 81.6 kg (180 lb) SpO2 99% BMI 35.75 kg/m Review of Systems Constitutional: Negative for chills, fever and malaise/fatigue. HENT: Negative for congestion, ear discharge, ear pain, sinus pain and sore throat. Eyes: Negative for blurred vision, pain, discharge and redness. Respiratory: Negative for cough, hemoptysis, sputum production, shortness of breath, wheezing and stridor. Cardiovascular: Negative for chest pain. Gastrointestinal: Negative for abdominal pain, diarrhea, nausea and vomiting. Genitourinary: Positive for dysuria, frequency and urgency. Negative for flank pain and hematuria. Musculoskeletal: Negative for myalgias. Skin: Negative for itching and rash. Neurological: Negative for dizziness and headaches. Objective Physical Exam Constitutional: General: She is not in acute distress. Appearance: She is not diaphoretic. HENT: Head: Normocephalic. Eyes: Conjunctiva/sclera: Conjunctivae normal. Pupils: Pupils are equal, round, and reactive to light. Cardiovascular: Rate and Rhythm: Normal rate and regular rhythm. Heart sounds: Normal heart sounds. Pulmonary: Effort: Pulmonary effort is normal. No tachypnea, accessory muscle usage or respiratory distress. Breath sounds: Normal breath sounds. No stridor. No wheezing, rhonchi or rales. Abdominal: Palpations: Abdomen is soft. Tenderness: There is no abdominal tenderness. There is no left CVA tenderness, guarding or rebound. Musculoskeletal: Cervical back: Normal range of motion. Skin: General: Skin is warm and dry. Neurological: Mental Status: She is alert and oriented to person, place, and time. ASSESSMENT/PLAN: 1. Urine retention - ICD9: 788.20, ICD10: R33.9 (primary diagnosis) - UA DIP, URINE (POC) - URINE CULTURE 2. Dysuria - ICD9: 788.1, ICD10: R30.0 Patient will be placed on Keflex. Has tolerated this in the past. Creatinine clearance 38. Follow-up with PCP 2 to 3 days. Red flags proper elevation discussed. Be seen urgent care or ED for any new worsening or symptoms lasting longer than anticipated. Patient verbalized understand agrees with plan of care. Shaggy Weston APRN.MOIZ documented [facility] [place] Instructions* Patient Instructions* Angelito Cifuentes MD - 11/27/2022 12:40 PM EST Images from the original note were not included. PREVENTIVE CARDIOLOGY Home Blood Pressure Monitoring The 2017 High Blood Pressure Clinical Practice Guidelines, endorsed by the [place] [employer] and the [place] [employer] Association1, place a special emphasis on home blood pressure monitoring. The measurements obtained at home are likely a more accurate reflection of your actual blood pressure and ultimately your risk of adverse cardiovascular events (strokes, heart attacks, heart failure.) With this in mind, we recommend checking your blood pressure (BP) and heart rate (HR) and writing down the readings and the time of day. Ideally you would check your BP multiple times as we adjust your medications. In the future we may be able to decrease the number of times that you are checking, based on the stability of your readings. You should try to measure your blood pressure in the morning, before taking your blood pressure medications. You may check occasionally in the evening as well. When you are ready to begin checking your BP, try to relax and sit for 5 minutes. Press the start button on the machine. Count to 60 between each recording and take 2 or 3 consecutive measurements. BP & HR LOG EXAMPLE DATE TIME Blood Pressure Heart Rate eg. Apr 6:40 am 146/87 62 144/85 62 143/83 63 eg. Apr Morning 133/77 69 130/85 59 130/86 62 Correctly Checking Your Blood Pressure Buy a BP machine with a cuff that goes around the upper arm and not the wrist. Ensure you have the correct size cuff based on your arm circumference. Below is a table taken directly from the 2017 High Blood Pressure Guidelines.1 Arm Circumference Usual Cuff Size 22-26 cm Small adult 27-34 cm Adult 35-44 cm Large adult 45-52 cm Adult thigh Not all BP machines are accurate, but most are. The more expensive units have extra features (Bluetooth etc.) that can make it easier to record your readings, but are not necessarily more accurate than the simpler machines. Your machine should be brought to your doctor every 1 to 2 years to be checked for accuracy. The most well validated BP machines available in the [place] are listed at www.validatebp.org. To take a BP reading correctly, go into a quiet area. Sit in a chair with your feet flat on the ground and back supported (without crossing your legs.) Your arm should be at the level of the heart and supported (do not hold it in the air). Resting your arm on the kitchen table is often an appropriate height. Put the BP cuff on and try to relax for 5 minute before pressing the start button. Remain quiet. Take multiple readings and wait 60-90 seconds between each one. Most machines will record the values so you can write them down after measuring. Review of Home Blood Pressure Monitoring Results If changes have been made to your blood pressure medication treatment plan, we encourage you to monitor your blood pressures at home and submit them for our review. Based on your self-recorded measurements we can make adjustments to medications between office visits if needed. To accurately assess your blood pressure control outside of the office, please ensure that you are using a device that has been validated for clinical accuracy. Additionally, we encourage you to follow the above instructions on accurate home blood pressures measurement. So that we have enough data upon which to based clinical changes, we ask that you submit a minimum of 12 blood pressure readings for our review via [employer] (or by other means if instructed by your healthcare provider.) 1. Curtis et al. J Am Gabriela Cardiol. 2018 February 10;71(19):[id number]. 2. PREVENTIVE CARDIOLOGY LOW SODIUM DIET A low-sodium diet limits foods that are high in sodium. Salty foods are high in sodium. You will need to follow a low-sodium diet if you have high blood pressure, kidney disease, or heart failure. You may also need to follow this diet if you have a condition that is causing your body to retain (hold) extra fluid. You may need to limit the amount of sodium in your diet to 1,500 - 2,300mg per day. Ask your caregiver how much sodium you can have each day. HOW TO DECREASE SODIUM CONSUMPTION Here are the following guidelines to help reduce the amount of sodium in your diet Take the salt shaker off the table and omit salt from recipes and food preparation. Cook without salt or with only small amounts of added salt. Learn to enjoy the flavors of unsalted foods. Try flavoring foods with herbs, spices, and lemon juice. Read food labels carefully to determine the amounts of sodium. Learn to recognize ingredients that contain sodium. Rinsing canned vegetables and fish will remove much of the salt. Season or marinate meat, poultry, and fish ahead of time with onion, garlic and your favorite herbsbefore cooking to bring out the flavor. Some terms describing sodium content: lite, light, lightly salted, low sodium, reduced sodium, sodium free, unsalted, no salt added, without salt added, very low sodium. Use lower sodium products, when available, to replace those with higher sodium content. Use simple techniques like saving chicken broth from a chicken you cook at home rather than buying a canned, powdered or bouillon cube broth. When dining out words that signal high sodium include: smoked, barbecued, pickled, broth, soy sauce, teriyaki, creole sauce, marinated, cocktail sauce, tomato base, Parmesan, and mustard sauce. FOODS RECOMMENDED FOODS TO AVOID MILK & DAIRY 2-3 servings each day All milk and milk products, except buttermilk Cream cheese Low sodium cheeses Yogurt MILK & DAIRY Buttermilk Cheese (Gideon, José, Cheddar, Blue, Gouda, [place], Velveeta) Cheese spreads FRUIT & VEGETABLES 5-9 servings/day Fresh or frozen vegetables No added salt or low salt canned vegetables No added salt tomato products Salt-free vegetable juices All fruit and fruit juices FRUIT & VEGETABLES Canned vegetables Frozen vegetables with seasoning and sauces Pickle relish, sweet or sour Pickled Vegetables Pickles and others prepared in brine Sauerkraut Vegetable or tomato juices, canned or bottled Pickled Fruits BREADS & GRAINS 6-11 servings/day Bread and rolls Dry and cooked cereals Pancakes, waffles Potatoes Salt-free potato chips Salt-free pretzels/snack chips Rice, barley, noodles, spaghetti, macaroni and other pastas Tortillas Unsalted crackers Unsalted popcorn BREADS & GRAINS Breads and rolls with salted tops Instant hot cereals Instant Food Products (e.g., cereals, pasta mixes, potatoes, rice, etc.) Such as boxed mixes like rice, scalloped potatoes, macaroni and cheese Popcorn, Prepackaged Microwave Salted popcorn Saltines, potato chips, pretzels, snack chips, pork rinds MEATS & MEAT SUBSTITUTES 2-3 servings or total of 6 oz daily All fresh and fresh frozen meats (poultry, fish, shellfish, beef, pork, vega) Canned unsalted tuna fish Dried peas and beans Eggs Low sodium peanut butter Unsalted nuts Unsalted soybeans and other meat substitutes MEATS & MEAT SUBSTITUTES Cured, salted, canned or smoked meats, poultry, or fish such as corned beef, ham, stoll, luncheon meats, beef jerky, bologna, pork rinds, hogmaws, ribs, chitterlings, frankfurter, sausage, chorizo, canned fish like tuna, sardines, mackerel, anchovies, caviar, salted cod, garrido, sardines, lox, dryfish, and kippered salmon Dried Fish, Assorted (e.g., dried shrimp) Frozen pizza Frozen prepared meat entree dinners such as pot pies, macaroni and cheese Kosher meats Pickled Meats Regular peanut butter Salted nuts Soups Homemade soups, made with allowed ingredients Unsalted broth or bouillon Low sodium commercial soup Soups Broth and soups with added salt Regular canned soups Regular instant soups Regular bouillon cubes FATS & SNACKS (use sparingly) Margarine, vegetable oils and lard Unsalted gravies Unsalted butter Mayonnaise, sour cream Salt-free salad dressings Homemade salad dressings, made without added salt Whipping cream Sugar, honey, jelly, jam, syrup, candies Popsicle s, fruit ice, sherbet, fruit sorbet, marshmallows Homemade cookies, pies, cakes made with allowed ingredients FATS & SNACKS Butter Commercial salad dressings Cheese-based dressings Stoll fat, fatback, salt pork Salad dressing mixes Olives, green and black Prepared frozen cream pies and cheese cake Instant pudding mixes Commercially prepared baked goods (Cakes, cookies, pie) Salted nuts MISC. Allspice, Mustard (dry) [place] Extract Basil Archie Leaves Capello's Mohawk Style Seasoning [place]ham Seeds Chives Cider Vinegar Cinnamon Bledsoe Powder Nandini Crystal Dill Garlic Powder Abbie Herbal Seasonings: Lawry's Seasoned Pepper Louisa's Seasoning (no salt) Lemon Juice Mace Mrs. Dash Nutmeg Onion Powder Paprika Parsley Parsley Patch Peppermint Extract Pimento Priyanka Luis Salt free seasoning blends Savory Sodium-free Baking Powder Thyme Turmeric Vinegar Lazcano's all-purpose Seasonings MISC. Accent Jessica-Cobden All commercially prepared and convenience foods such as TV dinners, box mixes, canned entrees, Hamburger [place], meat pies, Maltese dinners, pizza,Shake'n Bake mixes BBQ sauce Celery salt Frost sauce Garlic salt Horseradish Kitchen Bouquet Lemon pepper Marinade sauce Meat tenderizers Monosodium Glutamate (MSG) Onion salt Green Party spreads Regular ketchup Relish Salad dressings Salt Seasoning salts Sodium Benzoate Sodium Caseinate Sodium Citrate Sodium Nitrate Sodium Phosphate Sodium Propionate Sodium Saccharin Soy sauce Steak sauce Tartar sauce Teriyaki sauce [facility] sauce Labeled no salt Products, Assorted [e.g., hobson paste and sauces, oriental dried plums and other dried seeds, vegetables and fruits (lemon & abbie)] PREVENTIVE CARDIOLOGY Best Proven Nonpharmacological Interventions for the Prevention and Treatment of Hypertension* *Type, dose, and expected impact on BP in adults with a normal BP and with hypertension. DASH indicates Dietary Approaches to Stop Hypertension; and SBP, systolic blood pressure. Resources: Your Guide to Lowering Your Blood Pressure With DASH--How Do I Make the DASH? Available at: https://www.nhlbi.nih.gov/health/resources/heart/chs-uctk-qhv-to. Top 10 Dash Diet Tips. Available at: http://dashdiet.org/dash_diet_tips.asp In the [place], one standard drink contains roughly 14 g of pure alcohol, which is typically found in 12 oz of regular beer (usually about 5% alcohol), 5 oz of wine (usually about 12% alcohol),and 1.5 oz of distilled spirits (usually about 40% alcohol). SOURCE: 2017 Guideline for the Prevention, Detection, Evaluation, and Management of High Blood Pressure in Adults Blood work today and again in 2 weeks time. documented in this encounter[facility] [place] History of Present illness Narrative* Angelito Cifuentes MD - 11/27/2022 12:11 PM EST Images from the original note were not included. Heart, Vascular, and Thoracic [place] [facility] Department of Cardiovascular Medicine SECTION OF PREVENTIVE CARDIOLOGY Lynette Angulo 11/27/2022 CHIEF COMPLAINT: Patient presents with: CARD New Patient Consult: Hypertension HISTORY OF PRESENT CARDIOVASCULAR ILLNESS: Lynette Angulo is a 82 year old female with a PMH significant for pericarditis, hypertension, type 2 diabetes mellitus, stage 4 chronic kidney disease, SSS (status post DC-PM). Presents for evaluation of hypertension. Referred by Dr. Hoffman. 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 24h ABPM performed at OSH reportedly showed average 24h bpm of 140-160 range per patient (no records available for review). She had h yperkalemia with spironolactone in the past and has had hyponatremia iut not clear what that was attributable to. She is currently taking nifedipineER 90 mg daily, losartan 100 mg daily, finerenone 10 mg daily, HCTZ 12.5 mg daily, doxazosin 2 mg nightly, hydralazine 50 mg TID. She does not quantifydietary sodium. She does not measure home blood pressure consistently because she feels her home machine is not accurate (it is an Omron.) Upon cardiovascular review of systems the patient denies chest pain, SOB, palpitations, syncope, light-headedness, PND , orthopnea, intermittent claudication. CARDIAC RISK FACTORS: Diabetes : Hypertension : Dyslipidemia : Not specified Avg. Sleep Hours Per Night?: 5.5 STATIN INTOLERANCE: USE OF PCSK9 INHIBITORS: CARDIOVASCULAR DISEASE HISTORY: Valve Disease: None Arrythmias: None HEART FAILURE/CARDIOMYOPATHY: None RELATED DISEASE HISTORY: [facility] for [facility] (first visit data) Source of referral: [id number] main) Years since hypertension diagnosis: > 10 years Family history of hypertension: yes Current home BP monitoring: No. Meets definition of resistant hypertension (3 or more meds w/ appropriate diuretic): Yes Meets definition of refactory hypertension (5 or more meds, uncontrolled, haseeb and chlorthalidone): No Orthostatic hypotension: No Quantitative Knowledge of low sodium diet (<2300 mg daily): No Intolerance / Allergy to prior antihypertensives: Yes: MRA and BB. Prior antihypertensives used (not including allergies / intolerant as noted above): No Current BP medication regimen: dCCB, Thiazide-type diuretic, ARB, Direct vasodilator, and other alpha ricarda Current Medications: cinnamon bark (CINNAMON ORAL), Take by mouth. Take 2,00mg daily., Disp: , Rfl: finerenone (KERENDIA) 10 mg tablet, Take 10 mg by mouth once daily., Disp: , Rfl: doxazosin (CARDURA) 2 mg tablet, Take 2 mg by mouth daily at bedtime., Disp: , Rfl: lovastatin (MEVACOR) 20 mg tablet, Take 20 mg by mouth daily at bedtime., Disp: , Rfl: cholecalciferol (VITAMIN D-3) 5,000 unit tab, Take 5,000 Units by mouth once daily., Disp: , Rfl: inulin (FIBER GUMMIES) 2 gram chew, Take by mouth. 2 chews twice a day, Disp: , Rfl: pantoprazole DR (PROTONIX) 40 mg tablet, TAKE 1 TABLET BY MOUTH ONCE DAILY AT 6 AM, Disp: 90 tablet, Rfl: 0 levothyroxine (SYNTHROID) 125 mcg tablet, Take 125 mcg by mouth once daily., Disp: , Rfl: MITIGARE 0.6 mg capsule, every 48 hours., Disp: , Rfl: glimepiride (AMARYL) 2 mg tablet, Take 0.5 tablets by mouth daily with breakfast. (Patient taking differently: Take 2 mg by mouth daily with breakfast.), Disp: , Rfl: OMEGA-3S/DHA/EPA/FISH OIL (OMEGA 3 ORAL), Take 830 mg by mouth once daily., Disp: , Rfl: chlorthalidone (HYGROTON) 25 mg tablet, Take 0.5 tablets by mouth once daily., Disp: 45 tablet, Rfl: 3 amLODIPine-Olmesartan 10-40 mg tab, Take 1 tablet by mouth every evening., Disp: 90 tablet, Rfl: 3 nebivolol (BYSTOLIC) 10 mg tablet, Take 1 tablet by mouth every evening., Disp: 90 tablet, Rfl: 3 [DISCONTINUED] hydrALAZINE (APRESOLINE) 50 mg tablet, Take 50 mg by mouth three times daily., Disp:, Rfl: [DISCONTINUED] losartan (COZAAR) 100 mg tablet, Take 100 mg by mouth once daily., Disp: , Rfl: [DISCONTINUED] doxazosin (CARDURA) 1 mg tablet, Take 1 mg by mouth daily at bedtime., Disp: , Rfl: [DISCONTINUED] NIFEdipine ER (PROCARDIA XL) 90 mg 24 hr tablet, Take 90 mg by mouth once daily., Disp: , Rfl: [DISCONTINUED] hydroCHLOROthiazide (HYDRODIURIL, ESIDRIX) 12.5 mg tablet, Take 12.5 mg by mouth once daily., Disp: , Rfl: [DISCONTINUED] docusate sodium (STOOL SOFTENER) 100 mg capsule, Take 100 mg by mouth as needed for constipation., Disp: , Rfl: [DISCONTINUED] traMADol (ULTRAM) 50 mg tablet, Take 50 mg by mouth every 6 hours as needed for pain., Disp: , Rfl: [DISCONTINUED] iv contrast (will be provided with radiology test), MRI Cardiac w/Qflow Inject, intravenously, once for 1 dose. No IV access, insert saline lock prior to the beginning of sedation, infusion, injection of imaging exam. Discontinue saline lock post exam. If Pt has a central line or IVAD, may access for administration according to line specific nursing protocol. Once exam is complete flush line and de-access according to line specific nursing protocol in the MR contrast administration guidelines link, Disp: 1 Each, Rfl: 0 latanoprost (XALATAN) 0.005 % ophthalmic solution, Use 1 Drop in both eyes daily at bedtime., Disp:, Rfl: [DISCONTINUED] cyanocobalamin (VITAMIN B-12) 500 mcg tablet, Take by mouth once daily., Disp: , Rfl: aspirin, enteric coated (ASPIRIN, ENTERIC COATED) 325 mg EC tablet, Take 1 tablet by mouth three times daily. (Patient taking differently: Take 325 mg by mouth once daily.), Disp: 270 tablet, Rfl: 1 perflutren lipid microspheres 1.3 mL in NaCl (PF) 0.9% 10 mL injection (DEFINITY), , INTRAVENOUS, DIRECTED PRN, Yimi Ryan MD sodium chloride 0.9 % (flush) 10 mL (BD POSIFLUSH), 10 mL, INTRAVENOUS, DIRECTED PRN, Yimi Ryan MD sodium chloride 0.9 % (flush) 10 mL (BD POSIFLUSH), 10 mL, INTRAVENOUS, DIRECTED PRN, Garth Hoffman MD sodium chloride 0.9 % (flush) 10 mL (BD POSIFLUSH), 10 mL, INTRAVENOUS, DIRECTED PRN, Garth Hoffman MD perflutren lipid microspheres 1.3 mL in NaCl (PF) 0.9% 10 mL injection (DEFINITY), , INTRAVENOUS, DIRECTED PRN, Emeli Garland APRN.MOIZ sodium chloride 0.9 % (flush) 10 mL (BD POSIFLUSH), 10 mL, INTRAVENOUS, DIRECTED PRN, 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 Findings: unavailable Prior secondary hypertension workup: Renal artery duplex ultrasound renal artery stenosis - Hours of sleep per night: < 6 hrs Interrupted sleep (< 6 hours uninterrupted on average): Yes Sleep study: unknown Known CLIFFORD: no Uses sleep aid: no Cormorbidities: Albuminuria and Dyslipidemia Compliance / adherence / use of interfering substances: 24 hr urine sodium: No NSAID: No OCP: No Herbals/licorice: No Urine diuretic screen: No Anti-hypertensive med screen: No CURRENT MEDS: Current Outpatient Medications Medication Sig cinnamon bark (CINNAMON ORAL) Take by mouth. Take 2,00mg daily. finerenone (KERENDIA) 10 mg tablet Take 10 mg by mouth once daily. doxazosin (CARDURA) 2 mg tablet Take 2 mg by mouth daily at bedtime. lovastatin (MEVACOR) 20 mg tablet Take 20 mg by mouth daily at bedtime. cholecalciferol (VITAMIN D-3) 5,000 unit tab Take 5,000 Units by mouth once daily. inulin (FIBER GUMMIES) 2 gram chew Take by mouth. 2 chews twice a day pantoprazole DR (PROTONIX) 40 mg tablet TAKE 1 TABLET BY MOUTH ONCE DAILY AT 6 AM levothyroxine (SYNTHROID) 125 mcg tablet Take 125 mcg by mouth once daily. MITIGARE 0.6 mg capsule every 48 hours. glimepiride (AMARYL) 2 mg tablet Take 0.5 tablets by mouth daily with breakfast. (Patient taking differently: Take 2 mg by mouth daily with breakfast.) OMEGA-3S/DHA/EPA/FISH OIL (OMEGA 3 ORAL) Take 830 mg by mouth once daily. chlorthalidone (HYGROTON) 25 mg tablet Take 0.5 tablets by mouth once daily. amLODIPine-Olmesartan 10-40 mg tab Take 1 tablet by mouth every evening. nebivolol (BYSTOLIC) 10 mg tablet Take 1 tablet by mouth every evening. latanoprost (XALATAN) 0.005 % ophthalmic solution Use 1 Drop in both eyes daily at bedtime. aspirin, enteric coated (ASPIRIN, ENTERIC COATED) 325 mg EC tablet Take 1 tablet by mouth three times daily. (Patient taking differently: Take 325 mg by mouth once daily.) Current Facility-Administered Medications Medication Dose Route Frequency perflutren lipid microspheres 1.3 mL in NaCl (PF) 0.9% 10 mL injection (DEFINITY) INTRAVENOUS DIRECTED PRN sodium chloride 0.9 % (flush) 10 mL (BD POSIFLUSH) 10 mL INTRAVENOUS DIRECTED PRN sodium chloride 0.9 % (flush) 10 mL (BD POSIFLUSH) 10 mL INTRAVENOUS DIRECTED PRN sodium chloride 0.9 % (flush) 10 mL (BD POSIFLUSH) 10 mL INTRAVENOUS DIRECTED PRN perflutren lipid microspheres 1.3 mL in NaCl (PF) 0.9% 10 mL injection (DEFINITY) INTRAVENOUS DIRECTED PRN sodium chloride 0.9 % (flush) 10 mL (BD POSIFLUSH) 10 mL INTRAVENOUS DIRECTED PRN ALLERGIES: ALLERGIES Allergen Reactions Darvon [Propoxyphen* Shortness of Breath, Other: See Comments No strength, bad dreams Iodine Anaphylaxis Lotensin [Benazepri* Vomiting, Other: See Comments Coughing Shellfish Anaphylaxis Spironolactone Other: See Comments Weak, made calcium level high, heart rate 20BPM Adhesive Rash Demeral [Meperidine] Vomiting Metoprolol Shortness of Breath Penicillins Hives FAMILY AND SOCIAL HISTORY: Lifestyle Employer And Job Title: No employer specified (retired) Years Of Education Completed: Not specified Marital Status: Tobacco use in the last year: No Alcohol Use: No REVIEW OF SYSTEMS: CONSTITUTIONAL: No Changes. HEENT:Negative for frequent or significant headaches, No changes in hearing or vision, no nose bleeds or other nasal problems RESPIRATORY: Negative for cough, hemoptysis, wheezing, COPD, dyspnea or shortness of breath CARDIOVASCULAR: See HPI Otherwise not reviewed PHYSICAL EXAMINATION: Vital Signs and General Appearance BP 149/59 (BP Site: Right Arm, BP Position: Standing, BP Cuff Size: Large Adult) Pulse 69 Ht 151.1 cm (4' 11.5) Wt 80.3 kg (177 lb) BMI 35.15 kg/m Average Blood Pressure: 149/59 BMI 35.15 kg/(m^2) Well developed, well nourished, alert, active 82 year old female in no apparent distress. Eyes: Normal, PERRLA Skin: Xanthomas - none Neck: Normal, supple with full range of motion Lungs: Clear to auscultation and percussion Lower Extremities: Normal exam of the extremities Neurological:Oriented to person, place and time and No focal motor or sensory deficits Pulses: Carotid: Left: 2+, Right: 2+, Bruit: No Posterior Tibial:Right 2+, Posterior Tibial:Left 2+, Heart Sounds: S1: Normal S2: Normal S3: Absent S4: Absent Murmurs: Systolic Murmur Present: No Diastolic Murmur Present: No Xanthomas: No CLINICAL TESTING RESULTS: I have personally reviewed the following: Most recent ECG Tracing: (sinus at 54 bpm, LBBB), (performed on 05/30/22), which I independently visualized. Most Recent TTE: (CONCLUSIONS: - Technically difficult exam due to body habitus. - Exam indication: Pericardial conditions - The abnormal regional wall motion pattern in conjunction with normal regional wall thickness is consistent with a LBBB abnormal conduction delay. - The left ventricle is mildly dilated. Left ventricular systolic function is mildly decreased. EF = 54 5% (2D biplane) Definity contrast used for endocardial border detection. - The right ventricle is normal in size. Right ventricular systolic function is normal. - The left atrial cavity is dilated. - There is moderate (2+) tricuspid valve regurgitation. - Tricuspid aortic valve. There is moderately severe aortic valve stenosis caused by calcified valve and restricted opening. AV area is 1.03 cm (0.55 cm /m ) by continuity, VTI. The peak gradient is 29 mmHg, the mean gradient is 18 mmHg and the dimensionless valve index is 0.33. On 2D imaging, aortic valve openining appears moderately to severley reduced (Image 37). The calculated STEVE suggests severe aortic stenosis, while the dimensionless index and transaortic gradients suggest moderate aortic stenosis. Prior transaortic gradients: 26/12 mmHg, DI: 0.35. - No pericardial effusion. Abnormal septal motion in setting of LBBB. No significant constrictive physiology. - Exam was compared with the prior CC echocardiographic exam performed on 12/12/2021. On direct comparison, the recorded transaortic gradients are mildly higher today. ),(performed on 05/30/22) Other recent cardiac testin05/30/22 DUAL LEAD PACEMAKER EVALUATION PRESENTS FOR: Pre-MRI device check. MRI form completed and faxed. PRESENTING EGM: AP-/VS UNDERLYING RHYTHM: SB @ 56bpm BATTERY STATUS: Normal with no significant depletion, estimated time remaining to TORI is 9.3yrs. COUNTERS SINCE 07/02/21 ATRIAL ARRHYTHMIAS: There were 2 triggered episodes of atrial high rates with EGMs showing AFL. Longest lasting 6.75 hrs. Total time <0.1%. Anticoagulants listed: ASA 325mg VENTRICULAR ARRHYTHMIAS: There have been no recent ventricular detections, last one occurring back on 05/27/21. EGM shows <1 sec nsVT burst. LEAD MEASUREMENTS: Sensing is appropriate. Capture was not tested this evaluation, however was WNL on 12/21/2020 The pacing outputs maintain safety margin. Review of the lead impedance trends are normal. IMPLANT SITE/ SYMPTOMS: The incision and pocket are pain-free (0/10), well healed and without signsof erosion or infection. OTHER DIAGNOSTICS: Total V pacing <0.1 %. RA pacing 74.5%. PROGRAMMING CHANGES MADE TODAY: Decreased RV output from 2.25 to 2V based on today's testing. FOLLOW UP: Locally. Anjel Chambers RN LABS: Glucose (mg/dL) Date Value 05/07/2022 104 (H) BUN (mg/dL) Date Value 05/07/2022 30 (H) Creatinine (mg/dL) Date Value 05/07/2022 1.37 (H) Sodium (mmol/L) Date Value 05/07/2022 135 (L) Potassium (mmol/L) Date Value 05/07/2022 4.1 Chloride (mmol/L) Date Value 05/07/2022 105 CO2 (mmol/L) Date Value 05/07/2022 21 (L) Protein, Total (g/dL) Date Value 05/07/2022 6.8 Albumin (g/dL) Date Value 05/07/2022 4.3 Calcium, Total (mg/dL) Date Value 05/07/2022 10.0 Alkaline Phosphatase (U/L) Date Value 05/07/2022 99 Bilirubin, Total (mg/dL) Date Value 05/07/2022 0.5 AST (U/L) Date Value 05/07/2022 23 ALT (U/L) Date Value 05/07/2022 19 WBC (k/uL) Date Value 05/30/2022 5.51 RBC (m/uL) Date Value 05/30/2022 3.95 Hemoglobin (g/dL) Date Value 05/30/2022 12.3 Hematocrit (%) Date Value 05/30/2022 38.3 MCV (fL) Date Value 05/30/2022 97.0 MCH (pg) Date Value 05/30/2022 31.1 MCHC (g/dL) Date Value 05/30/2022 32.1 RDW-CV (%) Date Value 05/30/2022 14.3 Platelet Count (k/uL) Date Value 05/30/2022 282 MPV (fL) Date Value 05/30/2022 10.5 PT INR (no units) Date Value 09/01/2020 Unable to assay. Specimen improperly collected/handled. Cholesterol, Total Date Value Ref Range Status 01/09/2022 186 <200 mg/dL Final Comment: <200 mg/dL, Desirable 200-239 mg/dL, Borderline high >239 mg/dL, High HDL Cholesterol Date Value Ref Range Status 01/09/2022 55 >39 mg/dL Final Comment: 40-59 mg/dL, Acceptable >59 mg/dL, High: Negative risk factor for coronary heart disease <40 mg/dL, Low: Positive risk factor for coronary heart disease LDL Cholesterol Date Value Ref Range Status 01/09/2022 118 (H) <100 mg/dL Final Comment: <100 mg/dL, Optimal 100-129 mg/dL, Near optimal/above optimal 130-159 mg/dL, Borderline high 160-189 mg/dL, High >189 mg/dL, Very high Secondary prevention optimal LDL Cholesterol levels are recommended to be < 70 mg/dL Triglyceride Date Value Ref Range Status 01/09/2022 67 <150 mg/dL Final Comment: <150 mg/dL, Normal 150-199 mg/dL, Borderline high 200-499 mg/dL, High >499 mg/dL, Very high PATIENT ENTERED QUESTIONNAIRE SCORES This consultation was requested by Garth Hoffman MD for an opinion regarding hypertension , and my final recommendations will be communicated back to the requesting physician and primary care provider by way of shared medical record or letter summarizing my evaluation. ASSESSMENT AND PLAN: In addition to the above history and physical exam, the results of prior labs and testing, were reviewed. The following plans and goals have been established to address current medical problems and optimize control of cardiovascular risk factors to reduce the risk of future heart disease: Active Medical Problems: 1) Hypertension, stage 4 chronic kidney disease, proteinuria Likely a combination of primary hypertension driven by aging and dietary indiscretion with a component of secondary hypertension due to chronic kidney disease. We discussed the crucial role that lifestyle interventions play in the management of hypertension. Major considerations include daily sodium intake and sleep quantity / quality. We recommend a low-salt diet of no more than 2300mg of sodiumdaily. We recommend 6-8 consecutive hours of sleep per night and, if appropriate, treatment of sleep related disorders. We now recommend the following anti-hypertensive medication regimen: 1) Finerenone 10 mg daily 2) Chlorthalidone 12.5 mg daily 3) Amlodipine-olmesartan 10-40 mg nightly 4) Nebivolol 10 mg nightly 5) Doxazosin 2 mg nightly Following this visit, I have asked the patient to share their recorded home blood pressures with luisito Landon so we can properly adjust the medication regimen based on home measurements (which are highly emphasized in the 2017 AHA/ACC Hypertension Guidelines.) We discussed the need for appropriate testing following medication initiation given that risks associated with antihypertensive medications include, but are not limited to, hypotension, acute kidney injury, and electrolyte abnormalities. Basic metabolic panel today and again in 2 weeks. Dependant upon follow-up blood pressures, may benefit from addition of SGLT2i. FOLLOW UP: We recommend a 4 week follow-up with LIDAR SCIENTIST The medical decision making for this patient encounter was of high complexity I provided Lynette Angulo with my contact information at this visit (or a prior visit.) This information includes my office phone number, office fax number, [employer] instructions, and my work email address. Lynette Leahy Angulo was strongly encouraged to use [employer] for communication if possible, but my email address was provided if needed. Angelito Cifuentes MD AMBULATORY PATIENT EDUCATION Topic: Hypertension Instruction Provided To: Patient Barriers: None Motivation to Learn: Interested Methods of Instruction: Verbal instruction and/or handouts. Patient Leans Best By: Multiple Methods Patient Verbalized: Understanding documented in this encounter[facility] [place] History of Present illness Narrative* Garth Hoffman MD - 05/30/2022 2:55 PM EDT Images from the original note were not included. [facility] [place] [facility] Department of Cardiovascular Medicine PERICARDIAL CENTER OUTPATIENT VISIT DATE December 12, 2021 OUTPATIENT VISIT TYPE Established REFERRING PHYSICIAN Garth Hoffman [address] [facility] [address] [facility] [address] [place]: Dr. Hoffman Information Architect: None CHIEF COMPLAINT: Follow-up visit for pericarditis with a pericardial effusion. Ms. Angulo was last seen in Pericardial Clinic with Dr. Hoffman on 12/12/2021 for pericarditis with pericardial effusion. The recommendations were: -Colchicine 0.6 mg/day -Aspirin 81 mg/day -Increase losartan 25 mg to 50 mg - Follow up with the water tanker driver to control the blood pressure. HISTORY OF PRESENT ILLNESS: Ms. Angulo is a 82 year old female with PMHx of SSS s/p PPM, pAF, HFpEF, HTN, DM2, CKD who presents today for follow-up visit for pericarditis with pericardial effusion. She does not complain of dyspnea, chest pain, palpitations, syncope. She c/o occasional dizziness. No fever, chills. Currently, she is on aspirin 81 mg once daily and colchicine 0.6 mg once daily PAST PERICARDIAL DISEASE AND CARDIAC HISTORY: 80 year old female with PMH of HTN, CKD 3, AF, and SSS s/p PPM 06/2018 who presented to [facility] due to 2 weeks of severe fatigue and weakness. CT C/A/P showed bilateral pleural effusions, large pericardial effusion, ascites. Formal echo showed moderate pericardial effusion 2.7 cm with some respiratory variation but no signs of tamponade. Pt was transferred to [facility] for further management of pericardial effusion. Upon arrival to [facility], patient was admitted to [facility]. Her SBP was in 80s and pt was SOB requiring oxygen. Bedside echo showed pre-tamponade physiology (plethoric IVC and cardiac oscillation; difficult toassess respiratory variation in mitral/tricuspid inflow velocities due to Afib, no diastolic chamber collapse) so patient was transferred to CICU. In CICU, SBP 90s-100s. Pt appears comfortable and isnot SOB. Labs show Na 124, Cr 2.24, AST 1250 and ALT 1185, BNP 2538. USCRP 150.6. Lactate 2.32 --> 2.2. Given 1L LR bolus. She underwent pericardiocentesis with 960 mL bloody output. Pericardial fluid cytology was completed which was negative for AFB or organisms. LFTs remained elevated for which a liver US was completed that was not consistent with cholecystitis. Decision was made to completecardiac MRI which was inconclusive due to dye injection malfunction. ASA and colchicine were continued. A cardiac MRI was repeated due to prior findings which showed moderate circumferential pericardial delayed enhancement - most prominent anteriorly, consistent with pericardial inflammation. Additionally there was mild focal epicardial delayed enhancement of the mid-lateral LV suggestive of mild myocardial inflammation. Patient was determined to be stable for discharge on colchicine, prednisone, and aspirin with plan for follow up with Dr Hoffman CURRENT MANAGEMENT: Her current pericardial medication include:Single Therapy Aspirin 81 mg once a day. Colchicine 0.6 mg once a day. Possible side effects of pericardial medications: Weight gain. ALLERGIES: Darvon [Propoxyphene Hcl], Iodine, Lotensin [Benazepril Hcl], Shellfish, Spironolactone, Adhesive, Demeral [Meperidine], Metoprolol, and Penicillins Current Outpatient Medications Medication Sig hydrALAZINE (APRESOLINE) 50 mg tablet Take 50 mg by mouth three times daily. losartan (COZAAR) 100 mg tablet Take 100 mg by mouth once daily. doxazosin (CARDURA) 1 mg tablet Take 1 mg by mouth daily at bedtime. NIFEdipine ER (PROCARDIA XL) 90 mg 24 hr tablet Take 90 mg by mouth once daily. hydroCHLOROthiazide (HYDRODIURIL, ESIDRIX) 12.5 mg tablet Take 12.5 mg by mouth once daily. cholecalciferol (VITAMIN D-3) 5,000 unit tab Take 5,000 Units by mouth once daily. inulin (FIBER GUMMIES) 2 gram chew Take by mouth. 2 chews twice a day docusate sodium (STOOL SOFTENER) 100 mg capsule Take 100 mg by mouth as needed for constipation. traMADol (ULTRAM) 50 mg tablet Take 50 mg by mouth every 6 hours as needed for pain. pantoprazole DR (PROTONIX) 40 mg tablet TAKE 1 TABLET BY MOUTH ONCE DAILY AT 6 AM levothyroxine (SYNTHROID) 125 mcg tablet Take 125 mcg by mouth once daily. MITIGARE 0.6 mg capsule TAKE 1 CAPSULE BY MOUTH ONCE DAILY FOR 90 DAYS latanoprost (XALATAN) 0.005 % ophthalmic solution Use 1 Drop in both eyes daily at bedtime. cyanocobalamin (VITAMIN B-12) 500 mcg tablet Take by mouth once daily. glimepiride (AMARYL) 2 mg tablet Take 0.5 tablets by mouth daily with breakfast. (Patient taking differently: Take 2 mg by mouth daily with breakfast.) aspirin, enteric coated (ASPIRIN, ENTERIC COATED) 325 mg EC tablet Take 1 tablet by mouth three times daily. (Patient taking differently: Take 325 mg by mouth once daily.) OMEGA-3S/DHA/EPA/FISH OIL (OMEGA 3 ORAL) Take 830 mg by mouth once daily. Current Facility-Administered Medications Medication Dose Route Frequency sodium chloride 0.9 % (flush) 10 mL (BD POSIFLUSH) 10 mL INTRAVENOUS DIRECTED PRN sodium chloride 0.9 % (flush) 10 mL (BD POSIFLUSH) 10 mL INTRAVENOUS DIRECTED PRN perflutren lipid microspheres 1.3 mL in NaCl (PF) 0.9% 10 mL injection (DEFINITY) INTRAVENOUS DIRECTED PRN sodium chloride 0.9 % (flush) 10 mL (BD POSIFLUSH) 10 mL INTRAVENOUS DIRECTED PRN sodium chloride 0.9 % (flush) 10 mL (BD POSIFLUSH) 10 mL INTRAVENOUS DIRECTED PRN sodium chloride 0.9 % (flush) 10 mL (BD POSIFLUSH) 10 mL INTRAVENOUS DIRECTED PRN sodium chloride 0.9 % (flush) 10 mL (BD POSIFLUSH) 10 mL INTRAVENOUS DIRECTED PRN PAST MEDICAL HISTORY Diagnosis Date Bradycardia Cancer (HCC) thyroid Diabetes (HCC) Gout Hypercholesteremia Hypertension Thyroid disease PAST SURGICAL HISTORY Procedure Laterality Date APPENDECTOMY HX CATARACT SURGERY, COMPLEX HYSTERECTOMY HX THYROIDECTOMY TOTAL/COMPLETE +parathyroid removal Social History Tobacco Use Smoking status: Never Smokeless tobacco: Never Substance Use Topics Alcohol use: No Drug use: Never No family history on file. REVIEW OF SYSTEMS: GENERAL: Negative for: Weight loss or gain, Fever or Chills, Weakness and Sleep difficulties. HEENT: Negative for: Headache, Impaired Vision, Glasses, Hearing Impairment, Ringing in Ears, Nosebleeds, Poor Dental Care, Bleeding Gums and Dentures. NECK: Negative for: Swelling, Pain, Stiffness RESPIRATORY: Negative for: Cough, Blood in Sputum, Shortness of breath, Wheezing, Apnea GASTROINTESTINAL: Negative for: Trouble swallowing, Heartburn, Change in bowel habits, Blood in stool, Dark black stools MUSCULOSKELETAL: Negtive for: Muscle or joint pain, stiffness, Joint swelling NEUROLOGIC/PSYCHIATRIC: Negative for: Weakness, Paralysis, Numbness, Tingling, Tremor, Nervousness or anxiety, Depressed mood, Memory loss SKIN: Negative for: Rash, Itching HEMATOLOGICAL/LYMPHATIC: Negative for: Easy bruising, Easy bleeding ENDOCRINE: Negative for: Heat or Cold Intolerance, Excessive Sweating, Frequent Urination, FrequentThirst PHYSICAL EXAM: BP 126/76 Pulse 64 Resp 12 Ht 4' 11.5 (1.51m) Wt 162 lb (73.5kg) SpO2 99% BMI 32.19 kg/(m^2). Pulsus paradoxus: No General: Appears well nourished. In no acute distress Eyes: EOMI. Neck: Supple, no JVD, No Kussmaul's sign , no carotid bruits, Lungs: Clear to auscultation bilaterally. Heart: Regular rate and rhythm. PMI 5th ICS LMCL, S1nl, S2nl. No rub No knock, 2/6 late peaking systolic murmur best heard at aortic area Abdomen: Soft, non-tender, BS normal, no organomegaly, no bruits. No Ascites Extremities: left lower extremity swelling since surgery. Grade 2/4 distal pulses bilaterally. CURRENT STUDIES: Last ECHO Result Conclusion ECHO Collected: 05/30/2022 12:57 PM (Final result) Impression: CONCLUSIONS: - Technically difficult exam due to body habitus. - Exam indication: Pericardial conditions - The abnormal regional wall motion pattern in conjunction with normal regional wall thickness is consistent with a LBBB abnormal conduction delay. - The left ventricle is mildly dilated. Left ventricular systolic function is mildly decreased. EF = 54 5% (2D biplane) Definity contrast used for endocardial border detection. - The right ventricle is normal in size. Right ventricular systolic function is normal. - The left atrial cavity is dilated. - There is moderate (2+) tricuspid valve regurgitation. - Tricuspid aortic valve. There is moderately severe aortic valve stenosis caused by calcified valve and restricted opening. AV area is 1.03 cm (0.55 cm /m ) by continuity, VTI. The peak gradient is 29 mmHg, the mean gradient is 18 mmHg and the dimensionless valve index is 0.33. On 2D imaging, aortic valve openining appears moderately to severley reduced (Image 37). The calculated STEVE suggests severe aortic stenosis, while the dimensionless index and transaortic gradients suggest moderate aortic stenosis. Prior transaortic gradients: 26/12 mmHg, DI: 0.35. - No pericardial effusion. Abnormal septal motion in setting of LBBB. No significant constrictive physiology. - Exam was compared with the prior CC echocardiographic exam performed on 12/12/2021. On direct comparison, the recorded transaortic gradients are mildly higher today. * * * Final * * * Last EKG Result Conclusion ECG COMPLETE Collected: 05/30/2022 11:41 AM (Preliminary result) Impression: SINUS BRADYCARDIA LEFT AXIS DEVIATION COMPLETE LEFT BUNDLE BRANCH BLOCK ABNORMAL ECG EKG- 12/12/2021 Labs: Component Latest Ref Rng & Units 12/12/2021 12:09 PM WBC 3.70 - 11.00 k/uL 5.44 RBC 3.90 - 5.20 m/uL 4.02 Hemoglobin 11.5 - 15.5 g/dL 12.3 Hematocrit 36.0 - 46.0 % 39.4 MCV 80.0 - 100.0 fL 98.0 MCH 26.0 - 34.0 pg 30.6 MCHC 30.5 - 36.0 g/dL 31.2 RDW-CV 11.5 - 15.0 % 14.8 Platelet Count 150 - 400 k/uL 246 MPV 9.0 - 12.7 fL 11.0 Neut% % 65.4 Abs Neut (ANC) 1.45 - 7.50 k/uL 3.56 Lymph% % 25.0 Abs Lymph 1.00 - 4.00 k/uL 1.36 Travis% % 8.1 Abs Travis <0.87 k/uL 0.44 Eosin% % 0.9 Abs Eosin <0.46 k/uL 0.05 Baso% % 0.4 Abs Baso <0.11 k/uL <0.03 Immature Gran % % 0.2 IMMATURE GRANS (ABS) <0.10 k/uL <0.03 NRBC /100 WBC 0.0 Absolute nRBC <0.01 k/uL <0.01 DTYPE Auto Protein, Total 6.3 - 8.0 g/dL 6.3 Albumin 3.9 - 4.9 g/dL 4.1 Calcium 8.5 - 10.2 mg/dL 10.5 (H) Bilirubin, Total 0.2 - 1.3 mg/dL 0.5 Alkaline Phosphatase 34 - 123 U/L 92 AST 13 - 35 U/L 24 ALT 7 - 38 U/L 21 Glucose 74 - 99 mg/dL 100 (H) BUN 7 - 21 mg/dL 19 Creatinine 0.58 - 0.96 mg/dL 1.26 (H) Sodium 136 - 144 mmol/L 143 Potassium 3.7 - 5.1 mmol/L 4.0 Chloride 97 - 105 mmol/L 107 (H) CO2 22 - 30 mmol/L 23 Anion Gap 9 - 18 mmol/L 13 eGFR >=60 mL/min/1.73m 43 (L) Cholesterol, Total <200 mg/dL 201 (H) Triglyceride <150 mg/dL 92 HDL Cholesterol >39 mg/dL 54 Non HDL Cholesterol <130 mg/dL 147 (H) Fasting Time hrs 12 VLDL Cholesterol <30 mg/dL 18 TC:HDL Ratio <5.10 3.72 LDL Cholesterol <100 mg/dL 129 (H) LDL:HDL Ratio <2.54 2.39 CK 42 - 196 U/L 196 MB <4.4 ng/mL 7.1 (H) CK MB % <=4.0 % 3.6 UltraSens C-Reactive Protein <3.1 mg/L 2.4 NT Pro BNP <450 pg/mL 1,611 (H) TSH 0.270 - 4.200 mIU/L 0.940 WSR 0 - 20 mm/hr 17 Troponin T 0.000 - 0.029 ng/mL 0.035 (H) CRP <0.9 mg/dL <0.3 Component Latest Ref Rng & Units 05/30/2022 WBC 3.70 - 11.00 k/uL 5.51 RBC 3.90 - 5.20 m/uL 3.95 Hemoglobin 11.5 - 15.5 g/dL 12.3 Hematocrit 36.0 - 46.0 % 38.3 MCV 80.0 - 100.0 fL 97.0 MCH 26.0 - 34.0 pg 31.1 MCHC 30.5 - 36.0 g/dL 32.1 RDW-CV 11.5 - 15.0 % 14.3 Platelet Count 150 - 400 k/uL 282 MPV 9.0 - 12.7 fL 10.5 Neut% % 64.7 Abs Neut (ANC) 1.45 - 7.50 k/uL 3.57 Lymph% % 26.0 Abs Lymph 1.00 - 4.00 k/uL 1.43 Travis% % 8.0 Abs Travis <0.87 k/uL 0.44 Eosin% % 0.4 Abs Eosin <0.46 k/uL <0.03 Baso% % 0.4 Abs Baso <0.11 k/uL <0.03 Immature Gran % % 0.5 IMMATURE GRANS (ABS) <0.10 k/uL 0.03 NRBC /100 WBC 0.0 Absolute nRBC <0.01 k/uL <0.01 DTYPE Auto CRP <0.9 mg/dL 0.5 NT Pro BNP <450 pg/mL 762 (H) WSR 0 - 20 mm/hr 38 (H) Free T3 2.3 - 4.1 pg/mL 2.4 SUMMARY: Ms. Angulo is a 82 year old female who presents for consultation regarding chronic pericarditis with pericardial effusion maintained on colchicine 0.6 mg once daily Physical exam today reveals normal exam. Labs showed normal CBC, elevated Cr OVERALL ASSESSMENT AND PLAN: Ms. Angulo is a 82 year old female who presents for consultation regarding chronic pericarditis with pericardial effusion, Hypertension, LBBB, aortic stenosis PERICARDITIS MANAGEMENT: Etiology: Likely from hemopericardium (Xarelto) Status: Improving Poor prognosis factors: Pre-Tamponade physiology Management: Chronic pericarditis with pericardial effusion - decrease colchicine 0.6 mg every other day -Aspirin 81 mg/day -inflammatory markers when chest pain or other pericardial symptoms Hypertension - patient on 5 different anti-hypertensives - Follow up with the water tanker driver to control the blood pressure. Aortic stenosis -ECHO today showed severe as per the calculated STEVE, while the dimensionless index and transaortic gradients suggest moderate aortic stenosis -close follow up needed -discussed about potential TAVR if needed in future If you have worsening chest pain: call office and get inflammatory markers done Follow-up instructions: Dr. Hoffman in 6 months Cardiac MRI in 6 months Echo in 6 months Follow up with LIDAR SCIENTIST in 3 months with ECHO Provider Attestation: I, Garth Hoffman MD personally performed the services described in this documentation. All medical record entries made by the scribe were at my direction and in my presence. I have reviewed the chart and discharge instructions (if applicable) and agree that the record reflects my personal performance and is accurate and complete. Electronically Signed: Garth Hoffman MD May 30, 2022 documented in this encounterSelect [facility] [place] History of Present illness Narrative* Kristina Monroe RN - 05/30/2022 10:00 AM EDT Radiology Service Progress Note DATE OF SERVICE: May 30, 2022 TIME: 10:00 AM PATIENT WEIGHT: 166LBS PATIENT IDENTITY VERIFICATION COMPLETED USING TWO (2) STANDARD IDENTIFIERS: Name and Date of confirmed by patient verbally. FALL SCREENING: Has the patient had 2 falls in the last year or 1 fall with injury or currently using an Ambulatory Assistive Device (Walker, Cane, Wheelchair, Crutches, etc.)? No PATIENT GENDER DATA: Female. status: : No status: NO. ALLERGIES: Reviewed and unchanged CONTRAST ALLERGY: No EXAM: MRI - CONTRAST TYPE: GROUP II IV SITE: Ambulatory: A peripheral IV was started in the Left antecubital site with a Angio cath: 20gauge. and A Saline lock was inserted per protocol IV SITE APPEARANCE: Clean,Dry and Intact SIGNATURE: Kristina Monroe RN PATIENT NAME: Lynette Angulo DATE: May 30, 2022 TIME: 10:00 AM * RT Maria Del Carmen(R) - 05/30/2022 10:00 AM EDT Radiology Service Progress Note PATIENT NAME: Lynette Angulo DATE OF SERVICE: May 30, 2022 TIME: 10:43 AM PATIENT IDENTITY VERIFICATION COMPLETED USING TWO (2) IDENTIFIERS: Name and Date of confirmedby patient verbally. FALL SCREENING: Has the patient had 2 falls in the last year or 1 fall with injury or currently using an Ambulatory Assistive Device (Walker, Cane, Wheelchair, Crutches, etc.)? No PATIENT GENDER DATA: Female. status: : No status: NO. PATIENT RELEVANT IMPLANT DATA REVIEWED: Yes RADIOLOGY DEPARTMENT: MR; Exam(s) Completed: Cardiac: Cardiac PERIPHERAL IV DATA: Site assessment: Clean,Dry and Intact, Site disposition Discontinued SIGNED BY: RT Maria Del Carmen(R) May 30, 2022 10:43 AM * Kofi Cavazos RN - 05/30/2022 10:00 AM EDT Radiology Service Progress Note PATIENT NAME: Lynette Angulo DATE OF SERVICE: May 30, 2022 TIME: 11:12 AM PATIENT IDENTITY VERIFICATION COMPLETED USING TWO (2) STANDARD IDENTIFIERS: Name and Date of confirmed by patient verbally and Name and Date of confirmed by identification band. PATIENT GENDER DATA: Female. status: status: NO. PATIENT RELEVANT IMPLANT DATA REVIEWED: Yes ALLERGIES: Reviewed and unchanged MEDICATIONS REVIEWED: NO PROCEDURE: MRI - Conditional Pacemaker IV SITE: Ambulatory: A peripheral IV was started in the Left antecubital site with a Angio cath: 20gauge. and A Saline lock was inserted per protocol PERIPHERAL IV ACCESS: Discontinued PATIENT TOLERATED PROCEDURE: Without incident. PATIENT DISCHARGED TO: Home/Self Care SIGNED BY: Kofi Cavazos RN May 30, 2022 11:12 AM documented in this encounterSelect Medical [facility] [place]08-25-[facility]22 Note. MICRO - Microbiology PROCEDURE: Acid Fast Bacilli Culture w Stain if Ind [*1] SOURCE: Tissue BODY SITE: Knee L COLLECTED DATE/TIME: 03/26/2022 13:27 EDT RECEIVED DATE/TIME: 03/26/2022 22:02 EDT START DATE/TIME: 03/26/2022 22:02 EDT FREE TEXT SOURCE: SUPRAPATELLAR POUCH FINAL REPORTS Final Report [] Verified Date/Time/Personnel: 05/23/2022 09:35 EDT No growth of Acid Fast Bacilli PRELIMINARY REPORTS Preliminary Report [] Verified Date/Time/Personnel: 05/09/2022 09:22 EDT No growth of Acid Fast Bacilli to date. Final report to follow at 8 weeks. STAINS AFS [] Verified Date/Time/Personnel: 03/27/2022 14:44 EDT Acid Fast Smear from Concentrated Specimen: Negative Performing Locations *1: This test was performed at: [address], [address] [place] [address] [employer]05-23-2022 Note. MICRO - Microbiology PROCEDURE: Acid Fast Bacilli Culture w Stain if Ind [*1] SOURCE: Tissue BODY SITE: Knee L COLLECTED DATE/TIME: 03/26/2022 13:27 EDT RECEIVED DATE/TIME: 03/26/2022 21:38 EDT START DATE/TIME: 03/26/2022 21:38 EDT FREE TEXT SOURCE: TIBIAL MEMBRANE FINAL REPORTS Final Report [] Verified Date/Time/Personnel: 05/23/2022 09:34 EDT No growth of Acid Fast Bacilli PRELIMINARY REPORTS Preliminary Report [] Verified Date/Time/Personnel: 05/09/2022 09:22 EDT No growth of Acid Fast Bacilli to date. Final report to follow at 8 weeks. STAINS AFS [] Verified Date/Time/Personnel: 03/27/2022 14:44 EDT Acid Fast Smear from Concentrated Specimen: Negative Performing Locations *1: This test was performed at: [address], [address] [place] [address] ([facility]05-23-2022 Note. MICRO - Microbiology PROCEDURE: Acid Fast Bacilli Culture w Stain if Ind [*1] SOURCE: Tissue BODY SITE: Knee L COLLECTED DATE/TIME: 03/26/2022 13:27 EDT RECEIVED DATE/TIME: 03/26/2022 20:49 EDT START DATE/TIME: 03/26/2022 20:49 EDT FREE TEXT SOURCE: FEMORAL MEMBRANE FINAL REPORTS Final Report [] Verified Date/Time/Personnel: 05/23/2022 09:34 EDT No growth of Acid Fast Bacilli PRELIMINARY REPORTS Preliminary Report [] Verified Date/Time/Personnel: 05/09/2022 09:20 EDT No growth of Acid Fast Bacilli to date. Final report to follow at 8 weeks. STAINS AFS [] Verified Date/Time/Personnel: 03/27/2022 14:44 EDT Acid Fast Smear from Concentrated Specimen: Negative Performing Locations *1: This test was performed at: [address], [facility]- , [facility] ([place])05-08-2022 Miscellaneous Notes* Telephone Encounter - Emeli Garland APRN.CNP - 05/08/2022 5:15 PM EDT I called and reviewed labs with Ms. Angulo. Discussed inflammatory markers, CMP, CBC. USCRP 3.2 (from 5.6) WSR 35 (from 45) Denies cardiac/pericardial symptoms. She is doing well. Went for revision of knee surgery in February. Feeling well overall. Has follow up 05/[address] Hoffman with Echo, MRI, labs, EKG. SHe was asking if she should still be on the Mitigare 0.6 mg daily. I advised she stay on this until her follow up with Dr. Hoffman. Advised to call if any cardiac symptoms Emeli Garland APRN.CNP * Telephone Encounter - Keyonna Nur - 05/08/2022 1:40 PM EDT Patient called that she wants to discuss her results as her numbers are a leveled. Last seen Emeli 08/28/21 [facility] [place] Miscellaneous Notes* Telephone Encounter - Razia Mota RN - 05/03/2022 9:16 AM EDT I reviewed Cora's message with Dr. Hoffman. He said elevated labs could be related to other symptoms such as a respiratory infection, etc. I called and spoke with Cora. She stated she had just gotten out of the hospital for a revision of her knee surgery and has been doing her physical therapy exercises at home. She said she has felt some heaviness under her right breast and was unsure if it was related to her PT exercises or her pacemaker. She said she would call back if it worsened or persisted. She had no other symptoms. I told her she can make an appointment with Dr. Hoffman or an LIDAR SCIENTIST ifshe desired. She verbalized understanding and had no further questions. Razia Mota RN * Telephone Encounter - Keyonna Nur - 04/24/2022 3:49 PM EDT Patient wants to be called about results as she doesn't want to use MyChart anymore. She wants to review labs to see how she can fix her numbers Ph- [phone] documented in this [facility] [place] Note. MICRO - Microbiology PROCEDURE: Fungal Culture with Stain if Ind [*1] SOURCE: Tissue BODY SITE: Knee L COLLECTED DATE/TIME: 03/26/2022 13:27 EDT RECEIVED DATE/TIME: 03/26/2022 22:02 EDT START DATE/TIME: 03/26/2022 22:02 EDT FREE TEXT SOURCE: SUPRAPATELLAR POUCH FINAL REPORTS Final Report [] Verified Date/Time/Personnel: 05/01/2022 09:37 EDT No fungus isolated in 4 weeks. STAINS FUNSM [] Verified Date/Time/Personnel: 03/27/2022 14:41 EDT No fungal elements observed by calcofluor white stain. Performing Locations *1: This test was performed at: [address], [facility] , [facility] ([facility]05-01-2022 Note. MICRO - Microbiology PROCEDURE: Fungal Culture with Stain if Ind [*1] SOURCE: Tissue BODY SITE: Knee L COLLECTED DATE/TIME: 03/26/2022 13:27 EDT RECEIVED DATE/TIME: 03/26/2022 20:49 EDT START DATE/TIME: 03/26/2022 20:49 EDT FREE TEXT SOURCE: FEMORAL MEMBRANE FINAL REPORTS Final Report [] Verified Date/Time/Personnel: 05/01/2022 09:34 EDT No fungus isolated in 4 weeks. STAINS FUNSM [] Verified Date/Time/Personnel: 03/27/2022 14:41 EDT No fungal elements observed by calcofluor white stain. Performing Locations *1: This test was performed at: [address], [facility] , [facility] ([place])05-01-2022 Note. MICRO - Microbiology PROCEDURE: Fungal Culture with Stain if Ind [*1] SOURCE: Tissue BODY SITE: Knee L COLLECTED DATE/TIME: 03/26/2022 13:27 EDT RECEIVED DATE/TIME: 03/26/2022 21:38 EDT START DATE/TIME: 03/26/2022 21:38 EDT FREE TEXT SOURCE: TIBIAL MEMBRANE FINAL REPORTS Final Report [] Verified Date/Time/Personnel: 05/01/2022 09:34 EDT No fungus isolated in 4 weeks. STAINS FUNSM [] Verified Date/Time/Personnel: 03/27/2022 14:41 EDT No fungal elements observed by calcofluor white stain. Performing Locations *1: This test was performed at: [address], [facility]04-02-2022 Note. MICRO - Microbiology PROCEDURE: Culture Tissue [*1] SOURCE: Tissue BODY SITE: Knee L COLLECTED DATE/TIME: 03/26/2022 13:27 EDT RECEIVED DATE/TIME: 03/26/2022 22:02 EDT START DATE/TIME: 03/26/2022 22:02 EDT FREE TEXT SOURCE: SUPRAPATELLAR POUCH FINAL REPORTS Final Report [] Verified Date/Time/Personnel: 04/02/2022 07:19 EDT No growth at 7 days. PRELIMINARY REPORTS Preliminary Report [] Verified Date/Time/Personnel: 03/27/2022 10:57 EDT No growth to date STAINS GS [] Verified Date/Time/Personnel: 03/26/2022 23:19 EDT No organisms seen. Performing Locations *1: This test was performed at: [address], [address] [place], [place] [address]-02-2022 Note. MICRO - Microbiology PROCEDURE: Culture Tissue [*1] SOURCE: Tissue BODY SITE: Knee L COLLECTED DATE/TIME: 03/26/2022 13:27 EDT RECEIVED DATE/TIME: 03/26/2022 21:38 EDT START DATE/TIME: 03/26/2022 21:38 EDT FREE TEXT SOURCE: TIBIAL MEMBRANE FINAL REPORTS Final Report [] Verified Date/Time/Personnel: 04/02/2022 07:18 EDT No growth at 7 days. PRELIMINARY REPORTS Preliminary Report [] Verified Date/Time/Personnel: 03/27/2022 10:56 EDT No growth to date STAINS GS [] Verified Date/Time/Personnel: 03/26/2022 23:17 EDT No organisms seen. Performing Locations *1: This test was performed at: [address], [address] [place], [place] [address]-02-2022 Note. MICRO - Microbiology PROCEDURE: Culture Tissue [*1] SOURCE: Tissue BODY SITE: Knee L COLLECTED DATE/TIME: 03/26/2022 13:27 EDT RECEIVED DATE/TIME: 03/26/2022 20:49 EDT START DATE/TIME: 03/26/2022 20:49 EDT FREE TEXT SOURCE: FEMORAL MEMBRANE FINAL REPORTS Final Report [] Verified Date/Time/Personnel: 04/02/2022 07:18 EDT No growth at 7 days. PRELIMINARY REPORTS Preliminary Report [] Verified Date/Time/Personnel: 03/27/2022 10:56 EDT No growth to date STAINS GS [] Verified Date/Time/Personnel: 03/26/2022 22:13 EDT No organisms seen. Performing Locations *1: This test was performed at: [address], [id number]- , [facility] ([place])03-28-2022 Note Discharge Instructions Thank you for allowing [facility] to assist you with your healthcare needs. The following is importantdischarge information regarding your hospital visit. Your Care Team Keith Rodrigez MD [facility] Your Diagnosis Postoperative delirium Hypothyroidism HTN (hypertension) Atrial fibrillation Chronic kidney disease Diabetes Arthritis Status post revision of total replacement of left knee What to do next Follow Up Appointments Follow Up with GLADYS PAYNE PA-C, Orthopedic When 04/08/2022 10:45 AM EDT Why: Follow-up as scheduled Where: [facility] [address] [place] [id number]- The Following Activity and Diet Have Been Ordered for You Transfer of Care Activity - Ordered -- Activity As Tolerated, Weight bearing as tolerated with walker, 03/28/22 6:13:00 EDT Transfer of Care Diet - Ordered -- Type of Diet: Regular Diet, 03/28/22 6:13:00 EDT The Following Treatments Have Been Ordered for You Discharge Labs No qualifying data available. Discharge Radiology No qualifying data available. Other Therapies Transfer of Care OT - Ordered -- Reason for therapy: s/p revision left total knee arthroplasty, 03/28/22 6:13:00 EDT Transfer of Care PT - Ordered -- Your therapy ordered is: Physical Therapy, Reason for therapy: s/p revision left total knee arthroplasty, 03/28/22 6:13:00 EDT Post Acute Orders Transfer of Care Admission Level of Care - Ordered -- Level of Care Acute Rehab, 03/28/22 6:14:24 EDT Transfer of Care Code Status - Ordered -- Full Code, Constant Order Transfer of Care Orders Electronically Signed By - Ordered -- 03/28/22 6:13:00 EDT, GLADYS PAYNE PA-C Transfer of Care Prognosis - Ordered -- Good, Patient Aware: Yes Transfer of Care Rehab Potential - Ordered -- Rehab potential good, 03/28/22 6:14:24 EDT Allergies Darvon (hallucination, anxiety) Demerol HCl (vomiting, nausea) Janumet (sharp pains) Lotensin (cough) Seafood (shortness of breath) hydroCHLOROthiazide (dehydration) iodine (shortness of breath) lisinopril (headaches) penicillin (hives) simvastatin (myalgias) spironolactone (hyperkalemia) sun radiation (sun poisioning) Medications Please ask your primary doctor or pharmacist before taking any other medication not listed, including over the counter drugs, herbal medications, vitamins and or supplements as they may interact withyour home medications. What How Much When Why Instructions Last Dose New acetaminophen (Tylenol) 1,000 Milligram by mouth Three (3) times a day not to exceed 3000 mg/ day 03/28 @ 815am New docusate-senna (Senokot S) 2 tab(s) by mouth Two (2) times a day Take until first bowel movement, then as needed 03/28 @ 815am New doxycycline (doxycycline monohydrate 100 mg oral capsule) 1 cap by mouth Every 12 hours Duration: 13 Days Take for 2 weeks postoperatively while following cultures Printed Prescription 03/28 @ 815am New traMADol (traMADol 50 mg oral tablet) See instructions Status post revision of total replacement of left knee 1-2 tab(s) Oral q6h Printed Prescription not given Changed aspirin 81 Milligram by mouth Twice daily with meals Take 81 mg aspirin twice daily with food for 4 weeks postoperatively for DVT prophylaxis 03/28 @ 815am Changed losartan (losartan 100 mg oral tablet) 1 tab(s) by mouth Once a day (in the evening) 03/28 @ 815am Unchanged cholecalciferol (Vitamin D3) 125 Microgram by mouth Once a day not given Unchanged colchicine (Mitigare 0.6 mg oral capsule) 1 cap by mouth Once a day not given Unchanged cyanocobalamin (Vitamin B12 500 mcg oral tablet) 1 tab(s) by mouth Once a day not given Unchanged glimepiride (glimepiride 2 mg oral tablet) 1 tab(s) by mouth Once a day 03/28 @ 815am Unchanged latanoprost ophthalmic (latanoprost 0.005% ophthalmic solution) 1 Drops Both eyes Daily at bedtime 03/27 @ 930pm Unchanged levothyroxine (levothyroxine 125 mcg (0.125 mg) oral tablet) 1 tab(s) by mouth Once a day 03/28 @ 620am Unchanged Misc Medication 830 Milligram by mouth Every day DHA not given Unchanged pantoprazole (pantoprazole 40 mg oral enteric coated tablet) 1 tab(s) by mouth Once a day 03/28 @ 620am Please take this list to your next doctor s visit. Bring all medications you take, including over the counter medications, herbals and other supplements with you to your doctor s visit. Patients and families are reminded to discard old lists and to update any records with all medication providers or retail pharmacies. Medication Leaflets doxycycline (oral/injection) (DOX gurwinder calzada) Acticlate, Adoxa, Alodox, Avidoxy, Doryx, Mondoxyne NL, Monodox, Morgidox, Okebo, Oracea, Oraxyl, Targadox, Vibramycin What is the most important information I should know about doxycycline? You should not take this medicine if you are allergic to any tetracycline antibiotic. Children younger than 8 years old should use doxycycline only in cases of severe or life-threatening conditions. This medicine can cause permanent yellowing or graying of the teeth in children Using doxycycline during could harm the unborn baby or cause permanent tooth discoloration later in the baby's life. What is doxycycline? Doxycycline is a tetracycline antibiotic that Doxycycline is used to treat many different bacterial infections, such as acne, urinary tract infections, intestinal infections, eye infections, gonorrhea, chlamydia, periodontitis (gum disease), andothers. Doxycycline is also used to treat blemishes, bumps, and acne-like lesions caused by rosacea. Doxycycline will not treat facial redness caused by rosacea. Some forms of doxycycline are used to prevent malaria, to treat anthrax, or to treat infections caused by mites, ticks, or lice. Doxycycline may also be used for purposes not listed in this medication guide. What should I discuss with my healthcare provider before taking doxycycline? You should not take this medicine if you are allergic to doxycycline or other tetracycline antibiotics such as demeclocycline, minocycline, tetracycline, or tigecycline. Tell your doctor if you have ever had: liver disease; kidney disease; asthma or sulfite allergy; increased pressure inside your skull; or if you also take isotretinoin, seizure medicine, or a blood thinner such as warfarin (Coumadin). If you are using doxycycline to treat gonorrhea, your doctor may test you to make sure you do not also have syphilis, another sexually transmitted disease. Taking this medicine during may affect tooth and bone development in the unborn baby. Taking doxycycline during the last half of can cause permanent tooth discoloration later in the baby's life. Tell your doctor if you are or if you become . Doxycycline can make control pills less effective. Ask your doctor about using a non-hormonalbirth control (condom, diaphragm with spermicide) to prevent . Doxycycline can pass into breast milk and may affect bone and tooth development in a nursing infant. Do not breastfeed while you are taking doxycycline. Doxycycline can cause permanent yellowing or graying of the teeth in children younger than 8 years old. Children should use doxycycline only in cases of severe or life-threatening conditions such as anthrax or [place] spotted fever. The benefit of treating a serious condition may outweigh any risks to the child's tooth development. How should I take doxycycline? Follow all directions on your prescription label and read all medication guides or instruction sheets. Use the medicine exactly as directed. Take doxycycline with a full glass of water. Drink plenty of liquids while you are taking doxycycline. Read and carefully follow any Instructions for Use provided with your medicine. Ask your doctor or pharmacist if you do not understand these instructions. Most brands of doxycyline may be taken with food or milk if the medicine upsets your stomach. Different brands of doxycycline may have different instructions about taking them with or without food. Take Oracea on an empty stomach, at least 1 hour before or 2 hours after a meal. You may need to split a doxycycline tablet to get the correct dose. Follow your doctor's instructions. Swallow a delayed-release capsule or tablet whole. Do not crush, chew, break, or open it. Measure liquid medicine with the dosing syringe provided, or with a special dose-measuring spoon ormedicine cup. If you do not have a dose-measuring device, ask your pharmacist for one. If you take doxycycline to prevent malaria: Start taking the medicine 1 or 2 days before entering an area where malaria is common. Continue taking the medicine every day during your stay and for at least 4 weeks after you leave the area. Doxycycline is usually given by injection only if you are unable to take the medicine by mouth. A healthcare provider will give you this injection as an infusion into a vein. Use this medicine for the full prescribed length of time, even if your symptoms quickly improve. Skipping doses can increase your risk of infection that is resistant to medication. Doxycycline will not treat a viral infection such as the flu or a common cold. Store at room temperature away from moisture, heat, and light. Throw away any unused medicine after the expiration date on the label has passed. Using doxycycline can cause damage to your kidneys. What happens if I miss a dose? Take the medicine as soon as you can, but skip the missed dose if it is almost time for your next dose. Do not take two doses at one time. What happens if I overdose? Seek emergency medical attention or call the Poison Help line at . What should I avoid while taking doxycycline? Do not take iron supplements, multivitamins, calcium supplements, antacids, or laxatives within 2 hours before or after taking doxycycline. Avoid taking any other antibiotics with doxycycline unless your doctor has told you to. Doxycycline could make you sunburn more easily. Avoid sunlight or tanning beds. Wear protective clothing and use sunscreen (SPF 30 or higher) when you are outdoors. Antibiotic medicines can cause diarrhea, which may be a sign of a new infection. If you have diarrhea that is watery or bloody, call your doctor. Do not use anti-diarrhea medicine unless your doctor tells you to. What are the possible side effects of doxycycline? Get emergency medical help if you have signs of an allergic reaction (hives, difficult breathing, swelling in your face or throat) or a severe skin reaction (fever, sore throat, burning in your eyes,skin pain, red or purple skin rash that spreads and causes blistering and peeling). Seek medical treatment if you have a serious drug reaction that can affect many parts of your body.Symptoms may include: skin rash, fever, swollen glands, flu- like symptoms, muscle aches, severe weakness, unusual bruising, or yellowing of your skin or eyes. This reaction may occur several weeks after you began using doxycycline. Call your doctor at once if you have: severe stomach pain, diarrhea that is watery or bloody; throat irritation, trouble swallowing; chest pain, irregular heart rhythm, feeling short of breath; little or no urination; low white blood cell counts--fever, chills, swollen glands, body aches, weakness, pale skin, easy bruising or bleeding; increased pressure inside the skull--severe headaches, ringing in your ears, dizziness, nausea, vision problems, pain behind your eyes; or signs of liver or pancreas problems--loss of appetite, upper stomach pain (that may spread to your back), tiredness, nausea or vomiting, fast heart rate, dark urine, jaundice (yellowing of the skin or eyes). Common side effects may include: nausea, vomiting, upset stomach, loss of appetite; mild diarrhea; skin rash or itching; darkened skin color; or vaginal itching or discharge. This is not a complete list of side effects and others may occur. Call your doctor for medical advice about side effects. You may report side effects to FDA at 8-904-ZBV-3535. What other drugs will affect doxycycline? Sometimes it is not safe to use certain medications at the same time. Some drugs can affect your blood levels of other drugs you take, which may increase side effects or make the medications less effective. Other drugs may affect doxycycline, including prescription and ekqn-zue-zjaivma medicines, vitamins, and herbal products. Tell your doctor about all your current medicines and any medicine you start or stop using. Where can I get more information? Your pharmacist can provide more information about doxycycline. Remember, keep this and all other medicines out of the reach of children, never share your medicines with others, and use this medication only for the indication prescribed. Every effort has been made to ensure that the information provided by [employer]. ('[employer]') is accurate, up-to-date, and complete, but no guarantee is made to that effect. Drug information contained herein may be time sensitive. [employer] information has been compiled for use by healthcare practitioners and consumers in the [place] and therefore [employer] does not warrant that uses outside of the [place] are appropriate, unless specifically indicated otherwise. [employer] drug information does not endorse drugs, diagnose patients or recommend therapy. [employer] drug information isan informational resource designed to assist licensed healthcare practitioners in caring for their p atients and/or to serve consumers viewing this service as a supplement to, and not a substitute for, the expertise, skill, knowledge and judgment of healthcare practitioners. The absence of a warningfor a given drug or drug combination in no way should be construed to indicate that the drug or drug combination is safe, effective or appropriate for any given patient. [facility] does not assume any responsibility for any aspect of healthcare administered with the aid of information [employer] provides. The information contained herein is not intended to cover all possible uses, directions, precautions, warnings, drug interactions, allergic reactions, or adverse effects. If you have questions about the drugs you are taking, check with your doctor, nurse or pharmacist. Copyright 5995-0760 [employer]. Version: 21.04. Revision Date: 08/02/2020. tramadol (TRAM a dol) Leanap, Qdolo, Ultram, Ultram ER What is the most important information I should know about tramadol? MISUSE OF THIS MEDICINE CAN CAUSE ADDICTION, OVERDOSE, OR . Keep this medicine where others cannot get to it. Tramadol should not be given to a child younger than 12 years old, or anyone younger than 18 years old who recently had surgery to remove the tonsils or adenoids. Ultram ER should not be given to anyone younger than 18 years old. Taking tramadol during may cause life-threatening withdrawal symptoms in the . Fatal side effects may occur if you use also use alcohol or other drugs that cause drowsiness or slow breathing. What is tramadol? Tramadol is an pain medicine similar to an opioid. Tramadol is used to treat moderate to severe pain. The extended-release form of tramadol is for gkyrqf-xus-kqcjj treatment of pain. This form of tramadol is not for use on an as-needed basis for pain. Tramadol may also be used for purposes not listed in this medication guide. What should I discuss with my healthcare provider before taking tramadol? You should not take tramadol if you are allergic to it, or if you have: severe asthma or breathing problems; a stomach or bowel obstruction (including paralytic ileus); if you have recently used alcohol, sedatives, tranquilizers, or narcotic medications; or if you have used an MAO inhibitor in the past 14 days (such as isocarboxazid, linezolid, methylene blue injection, phenelzine, or tranylcypromine). Tramadol should not be given to a child younger than 12 years old. Ultram ER should not be given toanyone younger than 18 years old. Do not give tramadol to anyone younger than 18 years old who recently had surgery to remove the tonsils or adenoids. Seizures have occurred in some people taking tramadol. Your seizure risk may be higher if you have ever had: a head injury, epilepsy or other seizure disorder; drug or alcohol addiction; or a metabolic disorder. Tell your doctor if you have ever had: breathing problems, sleep apnea; liver or kidney disease; urination problems; problems with your gallbladder, pancreas, or thyroid; a stomach disorder; or mental illness, or suicide attempt. If you use tramadol during , your baby could be born with life- threatening withdrawal symptoms, and may need medical treatment for several weeks. Ask a doctor before using tramadol if you are . Tell your doctor if you notice severe drowsiness or slow breathing in the nursing baby. How should I take tramadol? Follow the directions on your prescription label and read all medication guides. Never use tramadolin larger amounts, or for longer than prescribed. Tell your doctor if you feel an increased urge totake more of this medicine. Never share tramadol with another person, especially someone with a history of drug addiction. MISUSE CAN CAUSE ADDICTION, OVERDOSE, OR . Keep the medicine where others cannot get to it. Sellingor giving away this medicine is against the law. Stop taking all other opioid medications when you start taking tramadol. Tramadol can be taken with or without food, but take it the same way each time. Swallow the capsule or tablet whole to avoid exposure to a potentially fatal overdose. Do not crush, chew, break, open, or dissolve. Measure liquid medicine with the supplied syringe or a dose-measuring device (not a kitchen spoon). Never crush or break a tramadol pill to inhale the powder or mix it into a liquid to inject the drug into your vein. This practice has resulted in . You may have withdrawal symptoms if you stop using tramadol suddenly. Ask your doctor before stopping the medicine. Store at room temperature away from moisture and heat. Keep track of your medicine. You should be aware if anyone is using it improperly or without a prescription. Do not keep leftover tramadol. Just one dose can cause in someone using it accidentally or improperly. Ask your pharmacist where to locate a drug take- back disposal program. If there is no take-back program, mix the leftover medicine with cat litter or coffee grounds in a sealed plastic bag throw the bag in the trash. What happens if I miss a dose? Since tramadol is used for pain, you are not likely to miss a dose. Skip any missed dose if it is almost time for your next dose. Do not use two doses at one time. What happens if I overdose? Seek emergency medical attention or call the Poison Help line at . An overdose can befatal, especially in a child or other person using the medicine without a prescription. Overdose symptoms may include severe drowsiness, pinpoint pupils, slow breathing, or no breathing. Your doctor may recommend you get naloxone (a medicine to reverse an opioid overdose) and keep it with you at all times. A person caring for you can give the naloxone if you stop breathing or don't wake up. Your caregiver must still get emergency medical help and may need to perform CPR (cardiopulmonary resuscitation) on you while waiting for help to arrive. Anyone can buy naloxone from a pharmacy or local health department. Make sure any person caring foryou knows where you keep naloxone and how to use it. What should I avoid while taking tramadol? Do not drink alcohol. Dangerous side effects or could occur. Avoid driving or hazardous activity until you know how this medicine will affect you. Dizziness or drowsiness can cause falls, accidents, or severe injuries. What are the possible side effects of tramadol? Get emergency medical help if you have signs of an allergic reaction (hives, difficult breathing, swelling in your face or throat) or a severe skin reaction (fever, sore throat, burning in your eyes,skin pain, red or purple skin rash that spreads and causes blistering and peeling). Tramadol can slow or stop your breathing, and may occur. A person caring for you should give naloxone and/or seek emergency medical attention if you have slow breathing with long pauses, blue colored lips, or if you are hard to wake up. Call your doctor at once if you have: noisy breathing, sighing, shallow breathing, breathing that stops during sleep; a slow heart rate or weak pulse; a light-headed feeling, like you might pass out; seizure (convulsions); or low cortisol levels--nausea, vomiting, loss of appetite, dizziness, worsening tiredness or weakness. Seek medical attention right away if you have symptoms of serotonin syndrome, such as: agitation, hallucinations, fever, sweating, shivering, fast heart rate, muscle stiffness, twitching, loss of coordination, nausea, vomiting, or diarrhea. Serious breathing problems may be more likely in older adults and people who are debilitated or have wasting syndrome or chronic breathing disorders. Common side effects may include: constipation, nausea, vomiting, stomach pain; dizziness, drowsiness, tiredness; headache; or itching. This is not a complete list of side effects and others may occur. Call your doctor for medical advice about side effects. You may report side effects to FDA at 7-201-OIS-1213. What other drugs will affect tramadol? You may have breathing problems or withdrawal symptoms if you start or stop taking certain other medicines. Tell your doctor if you also use an antibiotic, antifungal medication, heart or blood pressure medication, seizure medication, or medicine to treat HIV or hepatitis C. Many other drugs can be dangerous when used with tramadol. Tell your doctor if you also use: medicine for allergies, asthma, blood pressure, motion sickness, irritable bowel, or overactive bladder; other opioid medicines; a benzodiazepine sedative like Valium, Klonopin, or Xanax; sleep medicine, muscle relaxers, or other drugs that make you drowsy; or drugs that affect serotonin, such as antidepressants, stimulants, or medicine for migraines or Parkinson's disease. This list is not complete. Other drugs may affect tramadol, including prescription and cweg-lkg-bulplgo medicines, vitamins, and herbal products. Not all possible interactions are listed here. Many other drugs can be dangerous when used with tramadol. Tell your doctor if you also use: medicine for allergies, asthma, blood pressure, motion sickness, irritable bowel, or overactive bladder; other opioid medicines; a benzodiazepine sedative like Valium, Klonopin, or Xanax; sleep medicine, muscle relaxers, or other drugs that make you drowsy; drugs that affect serotonin, such as antidepressants, stimulants, or medicine for migraines or Parkinson's disease. drugs that affect serotonin levels in your body--a stimulant, or medicine for depression, Parkinson's disease, migraine headaches, serious infections, or nausea and vomiting. This list is not complete. Many other drugs may affect tramadol. This includes prescription and guia-vzu-mcccgsq medicines, vitamins, and herbal products. Not all possible drug interactions are listed here. Where can I get more information? Your doctor or pharmacist can provide more information about tramadol. Remember, keep this and all other medicines out of the reach of children, never share your medicines with others, and use this medication only for the indication prescribed. Every effort has been made to ensure that the information provided by [employer]. ('[employer]') is accurate, up-to-date, and complete, but no guarantee is made to that effect. Drug information contained herein may be time sensitive. [employer] information has been compiled for use by healthcare practitioners and consumers in the [place] and therefore [employer] does not warrant that uses outside of the [place] are appropriate, unless specifically indicated otherwise. [employer] drug information does not endorse drugs, diagnose patients or recommend therapy. [employer] drug information isan informational resource designed to assist licensed healthcare practitioners in caring for their p atients and/or to serve consumers viewing this service as a supplement to, and not a substitute for, the expertise, skill, knowledge and judgment of healthcare practitioners. The absence of a warningfor a given drug or drug combination in no way should be construed to indicate that the drug or drug combination is safe, effective or appropriate for any given patient. [employer] does not assume any responsibility for any aspect of healthcare administered with the aid of information [employer] provides. The information contained herein is not intended to cover all possible uses, directions, precautions, warnings, drug interactions, allergic reactions, or adverse effects. If you have questions about the drugs you are taking, check with your doctor, nurse or pharmacist. Copyright 3926-3191 [employer] Version: 22.02. Revision Date: 03/13/2021. Education Materials [facility] Post-operative Instructions PLEASE FOLLOW [facility] POST-OP INSTRUCTIONS GIVEN WATCH FOR SIGNS OF INFECTION: call the office ([phone]) if experencing any of the following: (Usually appears 36-48 hours after surgery) Increased temperature (101 degrees Fahrenheit or higher) Redness or swelling Increased uncontrolled pain Foul odor or drainage Calf discomfort Significant swelling Or if having any chest pain, shortness of breath, or difficulty breathing or swallowing call the office or go the nearest Emergency Room. If you have any questions, please call your doctor at the number listed on your follow up instructions. Form: 338A ([id number]) R: 02/02 Additional Information VACCINATE! IT SAVES LIVES! Members of the community who have not yet received the COVID-19 vaccine and would like to receive it can visit one of [facility] vaccine clinics. There are many vaccine clinic locations within the [facility]. For locations and available times, please visit [email or web address] It is important to note that some COVID mobile vaccine clinics are held outdoors and may be canceled in rainy or stormy conditions. To learn more about pediatric vaccinations (ages 5-11), we invite you to visit the [facility] webpage. [email or web address] [email or web address] learn more about the COVID-19 vaccine, we invite you to visit the [facility] website for a list of frequently asked questions. [email or web address] [facility] Patient Portal Access Instructions: Stay connected with your healthcare team and access your personal medical information anytime with the [facility] Patient Portal.If you would like a full copy of your medical records, please contact the [facility] Medical Records Department, Friday through Friday between 8a.m. and 4:30p.m. Please follow the directions below to access the portal: 1.Access the email account you provided upon registration to the [facility].2.Look for an invitation email from [facility].3.Open the email and access the invitation link: Accept Invitation to [facility]4.Fill in the required scott to create your account. Sign into [email or web address] with your username and password that you created in the above steps to stay up to date. You can then view a summary of results, a summary of your visits, and the ability to download your summaries to your computer or send the information securely to a physician. Remember that your healthcare information is confidential, so carefully consider who you will allow to register on the [facility] Patient Portal for access to your information. You can also access the [facility] Patient Portal on the [employer]. Simply click on Health Records under [employer] and then click on the [facility] logo. HOW TO SAFELY DISPOSE OF PRESCRIPTION MEDICATIONS Please use one of the following methods to safely dispose of your unused medications. 1.Use a drug disposal kit: the drug disposal pouch allows you to safely discard your old and unuseddrugs. Ask your nurse to give you one when you are discharged.2.Visit a local take-back location: Many local pharmacies and police departments have programs that collect old and unwanted prescriptiondrugs. Call your local pharmacy or go to http://Awareness Card.Happy Days [employer] New Musical/3P2Oj0p to find one close to you.3.Make use of household items: Use cat litter or old coffee grounds to dispose medications if other options arenot available. Mix your drugs with these household products, seal them in an airtight container andthrow it into the garbage. Call [facility]: [phone] to be sure your drugs can be disposed of in this way. Some medicines may require a different approach.4.Never flush your medications down the toilet. IF YOU HAVE BEEN PRESCRIBED AN OPIOID FOR PAIN If you have been prescribed an opioid (such as hydrocodone, oxycodone or morphine), it is critical to understand the possible side effects and risks of opioid pain medications. Even when taken as directed, opioids can have several side effects including: Tolerance, meaning you might need to take more of a medication for the same pain relief. Nausea, vomiting and/or constipation. Sleepiness, dizziness, dry mouth, confusion, depression or itching. Physical dependence, meaning you have withdrawal symptoms when a medication is stopped, can develop within a few days. KNOW YOUR RESPONSIBILITIES It is important to know exactly how much and how often to take the opioid pain medications you are prescribed. Never take opioids in higher amounts or more often than prescribed. Do not combine opioids with alcohol or other drugs that cause drowsiness, such as benzodiazepines, also known as benzos, including diazepam and alprazolam, muscle relaxants or sleep aids. Never sell or share prescription opioids. This is illegal. Store opioids in a secure place and out of reach of others (including children, family, friends and visitors). The last page of this document has been signed and retained as a CHART COPY. Signatures Patient Education Materials 5 - [facility] Post-op Instruction 04/2017 ([id number]) Medication Leaflets doxycycline (oral/injection), tramadol My discharge plan and instructions have been reviewed and explained to me and I,LYNETTE ANGULO understand my current condition and have read and understand these discharge instructions. I have received a written copy of the plan/instructions. If I have questions, I am aware that I should contact my doctor. Patient/Shake Sawyer Signature: Date/Time: Relationship to Patient: Witness Name/Signature: Date/Time: [facility]06-30-2022 SARS-CoV-2 (COVID-19) RNA ALEXANDRE+probe Ql (Nph)Negative (03/28/22 8:34 AM)AO Auto Urine [id number] Hospital Discharge instructions Patient Education 03/28/2022 06:06:51 5 - [facility] Post-op Instruction 04/2017 ([id number]) [facility] Post-operative Instructions PLEASE FOLLOW [facility] POST-OP INSTRUCTIONS GIVEN WATCH FOR SIGNS OF INFECTION: call the office ([phone]) if experencing any of the following: (Usually appears 36-48 hours after surgery) Increased temperature (101 degrees Fahrenheit or higher) Redness or swelling Increased uncontrolled pain Foul odor or drainage Calf discomfort Significant swelling Or if having any chest pain, shortness of breath, or difficulty breathing or swallowing call the office or go the nearest Emergency Room. If you have any questions, please call your doctor at the number listed on your follow up instructions. Form: 338A ([id number]) R: 02/02 Follow Up Care 02/28/2022 12:03:34 With:GLADYS PAYNE PA-C, Orthopedic Address: [facility] [address] [place] [phone] When:04/08/2022 10:45:00 Comments:Follow-up as scheduled [facility] 06-30-2022 Note Date of Service 03/28/2022 Chief Complaint Left knee pain. Subjective Ms. Angulo is status post left total knee arthroplasty with polyethylene exchange and patellar revision postop day #[address] Rodrigez. Patient experienced post-operative delirium on POD #1. Her pain medications were modified and she is doing much better this morning. She has returned to her neurological baseline. She states her pain is adequately controlled most of the time, but the pain intensifies with activity/ambulation. She endorses intermittent nausea, no vomiting. She is tolerating diet,voiding without difficulty. She denies fever, chills, dizziness, lightheadedness, chest pain, palpitations, dyspnea, or urinary retention. She is passing flatus. Patient has been hemodynamically stable. Blood pressures have been elevated, headache. Pain is likely a contributing factor. Her glimepiride was resumed yesterday, she is tolerating diet. Diabetic flowsheet reviewed blood glucose has been at goal ranging from 79-1 34. She had 1 borderline episode of hypoglycemia. Chemistry this morning shows a potassium of 3.4, BUN 35, creatinine 1.43 which is ather baseline. Objective Vitals and Measurements T: 36.3 C (Oral) TMIN: 36.2 C (Oral) TMAX: 37.2 C (Oral) HR: 54(Monitored) RR: 16 BP: 189/60 SpO2: 97% Intake and Output 7AM Yesterday to 7AM Today Intake and Output (Last 24 hours) Intake Oral Intake 260.00 Supplement Intake 240.00 Output Urine Count 1.00 Total Summary Total Intake 500.00 Total Output 0.00 Fluid Balance 500.00 Physical Exam CONSTITUTIONAL: Awake, alert, nontoxic in appearance, no acute distress. SKIN: [place], warm, dry. HEAD: Normocephalic, atraumatic. ENT: Pupils equal and reactive, EOMS intact. No icterus. Oral mucosa pink and moist. NECK: Supple, trachea midline. No JVD. HEART: Regular rate and rhythm, normal S1-S2. + murmur. LUNGS: Symmetric with respiration, even unlabored. Clear to auscultation. ABDOMEN: soft, nontender, with active bowel sounds in all 4 quadrants. EXTREMITIES: Surgical dressing intact to left knee, distal pulses palpable, capillary refill brisk,MSPS intact. NEUROLOGICAL: No focal deficits, motor sensory is intact. PSYCHIATRIC: Alert oriented 4 with appropriate mood and affect. Weight Dosing Weight: 75 kg (03/26/22) Dosing Weight: 75 kg (03/26/22) Medications Medications (27) Active Scheduled: (16) acetaminophen 500 mg Tablet 1,000 mg 2 tab(s), Oral, q8h aspirin 81 mg Chewable 81 mg 1 tab(s), Oral, BIDM dexamethasone 10 mg/mL (1mL) SDV 10 mg 1 mL, IV Push, AsDirected docusate sodium 100 mg Capsule 100 mg 1 cap(s), Oral, BID docusate-senna (Senokot S) 50 mg-8.6 mg Tablet 2 tab(s), Oral, BID doxycycline hyclate 100 mg Capsule 100 mg 1 cap(s), Oral, q12h famotidine 20 mg tablet 20 mg 1 tab(s), Oral, qDay glimepiride 2 mg Tablet 2 mg 1 tab(s), Oral, qDay insulin lispro 100 units/mL Soln (3 mL) Give 0-5 units/dose, Subcutaneous, TIDAC latanoprost ophthalmic 0.005% Solution 1 drop(s), Eyes, both, qHS levothyroxine 125 mcg tablet 125 mcg 1 tab(s), Oral, qDay losartan 50 mg tablet 100 mg 2 tab(s), Oral, qDay magnesium hydroxide 8% Suspension 30 mL UD 30 mL, Oral, Daily multivitamin (Myadec) with minerals Therapeutic Multiple Vitamins with Minerals Tablet 1 tab(s), Oral, qDayM pantoprazole 20 mg EC tablet 40 mg 2 tab(s), Oral, qDay potassium chloride 20 mEq ER tablet 40 mEq 2 tab(s), Oral, Once Continuous: (0) PRN: (11) acetaminophen 325 mg Tablet 650 mg 2 tab(s), Oral, q4h diphenhydramine 25 mg tablet 25 mg 1 tab(s), Oral, q6h diphenhyDRAMINE 50 mg/mL (1 mL) INJ 25 mg 0.5 mL, IV Push, q6h fentaNYL 50 mcg/mL (2mL) ampule 50 mcg 1 mL, IV Push, q5min hydralazine 20 mg/mL (1mL) vial 10 mg 0.5 mL, IV Push, q4h morphine 4 mg/mL 1mL INJ 2 mg 0.5 mL, IV Push, q1h ondansetron 2 mg/ 1 mL 2 mL INJ 4 mg 2 mL, IV Push, q8h prochlorperazine 10 mg/2 mL vial 5 mg 1 mL, IV Push, q6h sodium biphosphate-sodium phosphate 19 gm-7 gm Enema 133 mL, Rectal, qDay tramadol 50 mg Tablet 50 mg 1 tab(s), Oral, q6hr tramadol 50 mg Tablet 100 mg 2 tab(s), Oral, q6h Lab Results 03/28 05:06 Glucose Level: 86 Sodium Level: 137 Potassium Level: 3.4 L BUN: 35 H Creatinine Lvl (s): 1.43 H 03/27 05:22 WBC: 7.1 Hgb: 11.7 L Hct: 34.4 L Platelet: 238 Neutrophil %: 86.7 H Glucose Level: 206 H Sodium Level: 138 Potassium Level: 4.0 BUN: 33 H Creatinine Lvl (s): 1.47 H Assessment/Plan 1. Postoperative delirium 2. Hypothyroidism 3. HTN (hypertension) 4. Atrial fibrillation 5. Chronic kidney disease 6. Diabetes 7. Arthritis POD #2 status post revision left total knee arthroplasty with polyethylene exchange and patellar revision per Dr. Rodrigez. Patient is doing much better this morning. Her post-operative delirium has resolved and she has returned to her neurological baseline. She is tolerating the scheduled acetaminophen and tramadol for breakthrough pain. She does have increased discomfort with ambulation/activity.Meloxicam was discontinued due to her underlying chronic kidney disease. She was evaluated by PT/María recommending SNF upon discharge. She will be discharged later today to [facility]. Continue aspirin 81 mg p.o. twice daily for the next 4 weeks for DVT prophylaxis. Encourage lung expansion therapy. Post-operative surgical care per primary team. Postoperative delirium: Likely multifactorial given her age, anesthesia, and pain medication; resolved. Patient has returned to her neurological baseline. Medications modifications has been helpful. Will continue with current pain modalities including acetaminophen and tramadol. Hypokalemia. K+ 3.4 will replete with oral supplementation. Hypothyroidism status post thyroidectomy, continue levothyroxine. Hypertension, stable. Blood pressures are elevated and not at long-term goal. Patient is asymptomatic. Pain is likely contributing factor. Continue losartan and adequate pain control. History of atrial fibrillation status post pacemaker. Not on chronic anticoagulation therapy. Type 2 diabetes mellitus. Patient is tolerating ADA diet. Diabetic flowsheet reviewed. Glycemic monitoring per protocol. Continue oral glycemic agents and corrective sliding scale. Aim for glycemic goal of less then 180, avoid hypoglycemic episodes. Chronic kidney disease stable. Creatinine is near baseline. Meloxicam has been discontinued due to history of chronic kidney disease. DVT prophylaxis: TEDS/ASA 81 mg p.o. twice daily x4 weeks. PT/OT recommending SNF upon discharge. Will be discharged to [facility] later today. guest services attendant assisting with transition of care. Patient is medically stable for discharge when deemed appropriate by primary team. Plan of care was discussed with the patient, questions answered, and she is amenable to the plan. This dictation was performed using voice recognition software may include grammatical and/or spelling errors. Time Spent 35 minutes with greater then 50% at bedside counseling patient and coordinating care. Digitally Signed by TAMRA BLANKENSHIP on 03/28/2022 08:33 AM [facility]06-29-2022 Note Date of Service 03/27/2022 Chief Complaint Confusion, left knee pain. Subjective Ms. Angulo is status post left total knee arthroplasty with polyethylene exchange and patellar revision postop day #[address] Rodrigez. Patient had increased confusion with oxycodone last night. This has been discontinued and replaced with tramadol per orthopedic surgery. Patient remains intermittently confused, but appropriate at times. She states her pain is adequately controlled, she is tolerating diet, voiding without difficulty. She denies fever, chills, dizziness, lightheadedness, chest pain, palpitations, dyspnea, nausea, vomiting, or urinary retention. Patient's been hemodynamically stable, afebrile, maintaining adequate O2 saturations on room air. Blood pressures have been mildly elevated. CBC demonstrates no leukocytosis, stable anemia with hemoglobin 11.7, hematocrit 34.4. BUN 33, creatinine 1.47, glucose 206 otherwise chemistry unremarkable. D iabetic flow sheet reviewed, blood glucose has been ranging between 197-125. No episodes of hypoglycemia. Objective Vitals and Measurements T: 36.6 C (Oral) TMIN: 36.1 C (Temporal Artery) TMAX: 36.7 C (Oral) HR: 60(Monitored) RR: 18 BP: 177/55 SpO2: 99% HT: 149.9 cm WT: 75 kg BMI: 33.38 Intake and Output 7AM Yesterday to 7AM Today Intake and Output (Last 24 hours) Intake Administration Information 1981.50 Oral Intake 740.00 Supplement Intake 0.00 Output Intra-Op EBL 25.00 Stool Count 0.00 Urine Count 3.00 Total Summary Total Intake 2721.50 Total Output 25.00 Fluid Balance 2696.50 Physical Exam CONSTITUTIONAL: Awake, alert, nontoxic in appearance, no acute distress. SKIN: [place], warm, dry. HEAD: Normocephalic, atraumatic. ENT: Pupils equal and reactive, EOMS intact. No icterus. Oral mucosa pink and moist. NECK: Supple, trachea midline. No JVD. HEART: Regular rate and rhythm, normal S1-S2. LUNGS: Symmetric with respiration, even unlabored. Clear to auscultation. ABDOMEN: soft, nontender, with active bowel sounds in all 4 quadrants. EXTREMITIES: Surgical dressing intact to left knee, distal pulses palpable, capillary refill brisk,MSPS intact. NEUROLOGICAL: No focal deficits, motor sensory is intact. PSYCHIATRIC: Alert oriented 4 with appropriate mood and affect. Weight Dosing Weight: 75 kg (03/26/22) Dosing Weight: 75 kg (03/26/22) Medications Medications (27) Active Scheduled: (15) acetaminophen 500 mg Tablet 1,000 mg 2 tab(s), Oral, q8h aspirin 81 mg Chewable 81 mg 1 tab(s), Oral, BIDM bisacodyl 5 mg EC tablet 10 mg 2 tab(s), Oral, Once dexamethasone 10 mg/mL (1mL) SDV 10 mg 1 mL, IV Push, AsDirected docusate sodium 100 mg Capsule 100 mg 1 cap(s), Oral, BID docusate-senna (Senokot S) 50 mg-8.6 mg Tablet 2 tab(s), Oral, BID doxycycline hyclate 100 mg Capsule 100 mg 1 cap(s), Oral, q12h famotidine 20 mg tablet 20 mg 1 tab(s), Oral, qDay insulin lispro 100 units/mL Soln (3 mL) Give 0-5 units/dose, Subcutaneous, TIDAC latanoprost ophthalmic 0.005% Solution 1 drop(s), Eyes, both, qHS levothyroxine 125 mcg tablet 125 mcg 1 tab(s), Oral, qDay losartan 50 mg tablet 100 mg 2 tab(s), Oral, qDay magnesium hydroxide 8% Suspension 30 mL UD 30 mL, Oral, Daily multivitamin (Myadec) with minerals Therapeutic Multiple Vitamins with Minerals Tablet 1 tab(s), Oral, qDayM pantoprazole 20 mg EC tablet 40 mg 2 tab(s), Oral, qDay Continuous: (0) PRN: (12) acetaminophen 325 mg Tablet 650 mg 2 tab(s), Oral, q4h diphenhydramine 25 mg tablet 25 mg 1 tab(s), Oral, q6h diphenhyDRAMINE 50 mg/mL (1 mL) INJ 25 mg 0.5 mL, IV Push, q6h fentaNYL 50 mcg/mL (2mL) ampule 50 mcg 1 mL, IV Push, q5min hydralazine 20 mg/mL (1mL) vial 10 mg 0.5 mL, IV Push, q4h ketorolac 30 mg/mL (1 mL) vial 15 mg 0.5 mL, IV Push, q6h morphine 4 mg/mL 1mL INJ 2 mg 0.5 mL, IV Push, q1h ondansetron 2 mg/ 1 mL 2 mL INJ 4 mg 2 mL, IV Push, q8h prochlorperazine 10 mg/2 mL vial 5 mg 1 mL, IV Push, q6h sodium biphosphate-sodium phosphate 19 gm-7 gm Enema 133 mL, Rectal, qDay tramadol 50 mg Tablet 50 mg 1 tab(s), Oral, q6hr tramadol 50 mg Tablet 100 mg 2 tab(s), Oral, q6h Lab Results 03/27 05:22 WBC: 7.1 Hgb: 11.7 L Hct: 34.4 L Platelet: 238 Neutrophil %: 86.7 H Glucose Level: 206 H Sodium Level: 138 Potassium Level: 4.0 BUN: 33 H Creatinine Lvl (s): 1.47 H Assessment/Plan 1. Postoperative delirium 2. Hypothyroidism 3. HTN (hypertension) 4. Atrial fibrillation 5. Chronic kidney disease 6. Diabetes 7. Arthritis POD #1 status post revision left total knee arthroplasty with polyethylene exchange and patellar revision per Dr. Rodrigez. Patient appears to be doing well postoperatively. She did have some confusionlast night that is slowly improving but does continue to have periods where she is intermittently confused. Was felt that this may be likely related to the oxycodone. Orthopedics revised her medications discontinue the oxycodone and is trialing tramadol for breakthrough pain only. Meloxicam was discontinued due to her underlying chronic kidney disease. She was evaluated by PT/OT and recommending SNF upon discharge. She will be on aspirin 81 mg p.o. twice daily for the next 4 weeks for DVT prophy laxis. Postoperative delirium: Likely multifactorial given her age, anesthesia, and pain medication. Patient's CBC, BMP reviewed she is not hypoxic no chest pain, or shortness of breath. Follows commands appropriately and can intermittently answer questions appropriately but continues to have confusion that waxes and wanes. Patient was receiving oxycodone which has been discontinued by the primary team.Attempting to use acetaminophen and tramadol for breakthrough pain. Will attempt to minimize narcotic use. Attempt to maintain day/night schedule. Hypothyroidism status post thyroidectomy, continue levothyroxine. Hypertension, stable. Blood pressures are mildly elevated likely pain induced. Continue losartan. History of atrial fibrillation status post pacemaker. Not on chronic anticoagulation therapy. Type 2 diabetes mellitus. Patient is tolerating ADA diet this morning. Diabetic flowsheet reviewed.Will resume her home oral glycemic agents. Glycemic monitoring per protocol, will add corrective sliding scale as the patient did receive dexamethasone intraoperatively to aim for glycemic goal of less than 180 to facilitate healing. Chronic kidney disease stable. Creatinine is near baseline. Meloxicam has been discontinued due to history of chronic kidney disease. DVT prophylaxis: TEDS/ASA 81 mg p.o. twice daily x4 weeks. PT/OT recommending SNF upon discharge. Plan of care was discussed with the patient, questions answered, and she is amenable to the plan. This dictation was performed using voice recognition software may include grammatical and/or spelling errors. Time Spent 35 minutes with greater than 50% at bedside counseling patient and coordinating care. Digitally Signed by TAMRA BLANKENSHIP on 03/27/2022 11:40 AM [facility]06-29-2022 Note Date of Service March 27, 2022 Subjective The patient was sitting in bed upon examination. Patient denies any chest pain, shortness of breath, dizziness, lightheadedness, nausea or vomiting, or calf pain. No adverse overnight events. Pain has been controlled on medications. Nursing states patient had some confusion overnight and tried stripping down her clothes on 2 different occasion. Nursing feels it was done after her dose of oxycodone. Patient this morning was alert and oriented x3. She does report she just feels slow with answering questions. She denies any chest pain or shortness of breath. She states her is at home with her but he does not help much. She will need some assistance postoperatively most likely to a rehab center or [facility] facility. Patient does complain of some pain with her left knee but it is controlled. Objective Vitals and Measurements T: 36.6 C (Oral) TMIN: 36.1 C (Temporal Artery) TMAX: 36.7 C (Oral) HR: 60(Monitored) RR: 18 BP: 186/78 SpO2: 100% HT: 149.9 cm WT: 75 kg BMI: 33.38 Intake and Output 7AM Yesterday to 7AM Today Intake and Output (Last 24 hours) Intake Administration Information 1981.50 Oral Intake 740.00 Supplement Intake 0.00 Output Intra-Op EBL 25.00 Stool Count 0.00 Urine Count 3.00 Total Summary Total Intake 2721.50 Total Output 25.00 Fluid Balance 2696.50 Physical Exam Blood pressures are slightly elevated with other vital signs stable, afebrile. Patient has continued to use nasal O2 postoperatively SCDs and ALIX hose are in place bilaterally Patient is able to plantarflex and dorsiflex actively Sensation is intact to saphenous, sural, superficial and deep peroneal, and tibial distribution Dressing is clean dry and intact Negative signs and symptoms of DVT, negative Homans bilaterally Weight Dosing Weight: 75 kg (03/26/22) Dosing Weight: 75 kg (03/26/22) Medications Medications (28) Active Scheduled: (16) acetaminophen 500 mg Tablet 1,000 mg 2 tab(s), Oral, q8h aspirin 81 mg Chewable 81 mg 1 tab(s), Oral, BIDM bisacodyl 5 mg EC tablet 10 mg 2 tab(s), Oral, Once dexamethasone 10 mg/mL (1mL) SDV 10 mg 1 mL, IV Push, AsDirected docusate sodium 100 mg Capsule 100 mg 1 cap(s), Oral, BID docusate-senna (Senokot S) 50 mg-8.6 mg Tablet 2 tab(s), Oral, BID doxycycline hyclate 100 mg Capsule 100 mg 1 cap(s), Oral, q12h famotidine 20 mg tablet 20 mg 1 tab(s), Oral, qDay insulin lispro 100 units/mL Soln (3 mL) Give 0-5 units/dose, Subcutaneous, TIDAC latanoprost ophthalmic 0.005% Solution 1 drop(s), Eyes, both, qHS levothyroxine 125 mcg tablet 125 mcg 1 tab(s), Oral, qDay losartan 50 mg tablet 100 mg 2 tab(s), Oral, qDay magnesium hydroxide 8% Suspension 30 mL UD 30 mL, Oral, Daily multivitamin (Myadec) with minerals Therapeutic Multiple Vitamins with Minerals Tablet 1 tab(s), Oral, qDayM ondansetron 2 mg/ 1 mL 2 mL INJ 4 mg 2 mL, IV Push, q8h pantoprazole 20 mg EC tablet 40 mg 2 tab(s), Oral, qDay Continuous: (0) PRN: (12) acetaminophen 325 mg Tablet 650 mg 2 tab(s), Oral, q4h diphenhydramine 25 mg tablet 25 mg 1 tab(s), Oral, q6h diphenhyDRAMINE 50 mg/mL (1 mL) INJ 25 mg 0.5 mL, IV Push, q6h fentaNYL 50 mcg/mL (2mL) ampule 50 mcg 1 mL, IV Push, q5min hydralazine 20 mg/mL (1mL) vial 10 mg 0.5 mL, IV Push, q4h ketorolac 30 mg/mL (1 mL) vial 15 mg 0.5 mL, IV Push, q6h morphine 4 mg/mL 1mL INJ 2 mg 0.5 mL, IV Push, q1h ondansetron 2 mg/ 1 mL 2 mL INJ 4 mg 2 mL, IV Push, q8h prochlorperazine 10 mg/2 mL vial 5 mg 1 mL, IV Push, q6h sodium biphosphate-sodium phosphate 19 gm-7 gm Enema 133 mL, Rectal, qDay tramadol 50 mg Tablet 50 mg 1 tab(s), Oral, q6hr tramadol 50 mg Tablet 100 mg 2 tab(s), Oral, q6h Lab Results 03/27 05:22 WBC: 7.1 Hgb: 11.7 L Hct: 34.4 L Platelet: 238 Neutrophil %: 86.7 H Glucose Level: 206 H Sodium Level: 138 Potassium Level: 4.0 BUN: 33 H Creatinine Lvl (s): 1.47 H EKG No qualifying data available. Assessment/Plan 1. Hypothyroidism 2. HTN (hypertension) 3. Atrial fibrillation 4. Diabetes 5. Arthritis 1. Status post revision left total knee arthroplasty with polyethylene exchange and patella revision postop day #1 2. Continue pain medications: Tylenol and oxycodone. Patient was having some difficulty postoperatively with oxycodone and this was discontinued. She was started on tramadol today and will only use for breakthrough pain. Try to continue with Tylenol. Meloxicam was discontinued due to her underlyingchronic kidney disease. 3. DVT prophylaxis: Take 81 mg aspirin twice daily with food for 4 weeks postoperatively for DVT prophylaxis. Patient denies any previous history of DVT or pulmonary embolism 4. Physical therapy: Weightbearing as tolerated with walker. I would like input from physical therapy with regards to postoperative planning on discharge. Patient will most likely require skilled rehab or [facility] facility. 5. H & H: 11.7/34.4, asymptomatic. Postoperative anemia secondary to acute blood loss from surgery without intraoperative complications. 6. Encouraged incentive spirometry: Patient does have underlying chronic kidney disease with her current creatinine at 1.47. Preoperatively on March 12, 2022 is at 1.24. I did discontinue the meloxicam. 7. Continue postoperative medical management per medicine 8. Disposition: Patient will require an additional night stay as we will need to continue to monitor her with changes in medication and whether this controls her pain. She had reaction with the oxycodone but she does appear to be alert and oriented x3 today. I did switch her over to tramadol for breakthrough pain. Case management is currently involved for appropriate placement postoperatively. I would like input from physical therapy for appropriate postoperative planning. Patient does not havethe help she will require at home and will need further assistance. I have reviewed the [place] Automated Rx Reporting System (OARRS) report for this patient for refill pattern and other prescriber involvement as part of the appropriate surveillance for the provision ofacute and chronic controlled medications. The report was requested and reviewed on the date of thisentry, and was considered in the prescribing process This dictation was created using voice recognition software. Phonetic and/or grammatical errors mayexist. Orders: traMADol, Start: 03/27/22 7:23:00 EDT, Dose = 50 mg, = 1 tab(s), Oral, q6hr, PRN, Pain, scale 4-6, 03/27/22 7:23:00 EDT traMADol, Start: 03/27/22 7:24:00 EDT, Dose = 100 mg, = 2 tab(s), Oral, q6h, PRN, Pain, scale 7-10,03/27/22 7:24:00 EDT Sequential Compression Device Application Digitally Signed by GLADYS PAYNE PA-C on 03/27/2022 07:57 AM [facility]06-28-2022 Note ORIGINAL EXAMINATION: POSTOPERATIVE KNEE TECHNIQUE: 2 views of the left knee were obtained. COMPARISON: None. HISTORY: ORDERING SYSTEM PROVIDED HISTORY: Reason for Exam: Status Post Arthroplasty FINDINGS: There is normal mineralization. No acute fracture or dislocation is seen. The patient is status post left knee replacement with appropriate positioning of the prosthesis. There are postsurgical changes with a small joint effusion. IMPRESSION: Status post left knee replacement. Interpreted by: Beto Macdonald MD Preliminary Report By: Beto Macdonald MD Electronically signed By Beto Macdonald MD Dictated Date: 03/26/2022 3:20:42 PM Prelim Date: 03/26/2022 3:22:03 PM Sign Date: 03/26/2022 3:22:03 PM Ordering Provider: [facility]06-28-2022 Note ORIGINAL EXAMINATION: POSTOPERATIVE KNEE TECHNIQUE: 2 views of the left knee were obtained. COMPARISON: None. HISTORY: ORDERING SYSTEM PROVIDED HISTORY: Reason for Exam: Status Post Arthroplasty FINDINGS: There is normal mineralization. No acute fracture or dislocation is seen. The patient is status post left knee replacement with appropriate positioning of the prosthesis. There are postsurgical changes with a small joint effusion. IMPRESSION: Status post left knee replacement. Interpreted by: Beto Macdonald MD Preliminary Report By: Beto Macdonald MD Electronically signed By Beto Macdonald MD Dictated Date: 03/26/2022 3:20:42 PM Prelim Date: 03/26/2022 3:22:03 PM Sign Date: 03/26/2022 3:22:03 PM Ordering Provider: [facility]06-28-2022 Anesthesiology Progress note Patient: LYNETTE ANGULO Age: 82 years Sex: Female : 1940 Associated Diagnoses: None Author: UZMA MAO Preoperative Information Time of last food or liquid consumption: 03/26/2022 00:00:00 Anesthesia history Patient's history: negative. Family's history: negative. Health Status Allergies: Allergic Reactions (Selected) Severity Not Documented Darvon- Hallucination and anxiety. Demerol HCl- Vomiting and nausea. HydroCHLOROthiazide- Dehydration. Iodine- Shortness of breath. Janumet- Sharp pains. Lisinopril- Headaches. Lotensin- Cough. Penicillin- Hives. Seafood- Shortness of breath. Simvastatin- Myalgias. Spironolactone- Hyperkalemia. Sun radiation- Sun poisioning., Allergies (12) ActiveReaction Darvonhallucination Demerol HClnausea hydroCHLOROthiazidedehydration iodineshortness of breath Janumetsharp pains lisinoprilheadaches Lotensincough penicillinhives Seafoodshortness of breath simvastatinmyalgias spironolactonehyperkalemia sun radiationsun poisioning Current medications: (Selected) Inpatient Medications Ordered Decadron: 10 mg, 1 mL, IV Push, AsDirected Kefzol: 2 gram(s), 200 mL/hr, IV Piggyback, PREOP pharm LR 1,000 mL: 20 mL/hr, Intravenous LR 1000 mL: 20 mL/hr, Intravenous, Stop: 03/27/22 17:59:00 EDT Naropin 25 mg + EPINEPHrine 1 mg/mL injectable solution 0.3 mg + morphine 2.5 m mg, 5 mL, 0 mL/hr, Other, PREOP pharm Naropin 25 mg + EPINEPHrine 1 mg/mL injectable solution 0.3 mg + morphine 2.5 m mg, 5 mL, 0 mL/hr, Other, PREOP pharm Zofran ( PACU ): 4 mg, 2 mL, IV Push, AsDirected, PRN: Nausea/Vomiting fentaNYL ( PACU ): 50 mcg, 1 mL, IV Push, q5min, PRN: Pain, breakthrough hydrALAZINE: 10 mg, 0.5 mL, IV Push, q15min, PRN: Other (see order comments) tranexamic acid 1 g / 100 mL 0.7% NaCl PMX: 1 gram(s), 100 mL, 300 mL/hr, IV Piggyback, AsDirected tranexamic acid 1 g / 100 mL 0.7% NaCl PMX: 1 gram(s), 100 mL, 300 mL/hr, IV Piggyback, AsDirected Documented Medications Documented Misc Medication: 830 mg, Oral, Daily, DHA, 0 Refill(s) Mitigare 0.6 mg oral capsule: 0.6 mg, 1 cap(s), Oral, qDay, 0 Refill(s) Vitamin B12 500 mcg oral tablet: 500 mcg, 1 tab(s), Oral, qDay, 30 tab(s), 0 Refill(s) Vitamin D3: 125 mcg, 1 cap(s), Oral, qDay, 30 cap(s), 0 Refill(s) aspirin 81 mg oral delayed release tablet: 81 mg, 1 tab(s), Oral, Daily, 0 Refill(s) glimepiride 2 mg oral tablet: 2 mg, 1 tab(s), Oral, qDay, 30 tab(s), 0 Refill(s) latanoprost 0.005% ophthalmic solution: 1 drop(s), Eyes, both, qHS, 2.5 mL, 0 Refill(s) levothyroxine 125 mcg (0.125 mg) oral tablet: 125 mcg, 1 tab(s), Oral, qDay, 30 tab(s), 0 Refill(s) losartan 100 mg oral tablet: 100 mg, 1 tab(s), Oral, qDay, 30 tab(s), 0 Refill(s) pantoprazole 40 mg oral enteric coated tablet: 40 mg, 1 tab(s), Oral, qDay, 30 tab(s), 0 Refill(s), Medications (11) Active Scheduled: (6) ceFAZolin 2 gram(s), IV Piggyback, PREOP pharm dexamethasone 10 mg/mL (1mL) SDV 10 mg 1 mL, IV Push, AsDirected ropivacaine 25 mg + epinephrine 0.3 mg + morphine 2.5 mg 25 mg 5 mL, Other, PREOP pharm ropivacaine 25 mg + epinephrine 0.3 mg + morphine 2.5 mg 25 mg 5 mL, Other, PREOP pharm tranexamic acid PMX 1 gram(s) 100 mL, IV Piggyback, AsDirected tranexamic acid PMX 1 gram(s) 100 mL, IV Piggyback, AsDirected Continuous: (2) Lactated Ringers 1,000 mL 1,000 mL, Intravenous, 20 mL/hr Lactated Ringers 1000 mL 1,000 mL, Intravenous, 20 mL/hr PRN: (3) fentaNYL 50 mcg/mL (2mL) ampule 50 mcg 1 mL, IV Push, q5min hydralazine 20 mg/mL (1mL) vial 10 mg 0.5 mL, IV Push, q15min ondansetron 2 mg/ 1 mL 2 mL INJ 4 mg 2 mL, IV Push, AsDirected Problem list: Active Problems (9) Arthritis Atrial fibrillation Diabetes Gout Heart murmur HTN (hypertension) Hypothyroidism Pacemaker Pericardial effusion Histories Past Medical History: No active or resolved past medical history items have been selected or recorded., HTN, AF, pacemaker, hypothyroid Family History: Cancer Father Mother Procedure history: Hysterectomy (635692798). Tonsillectomy (355594768). Total knee arthroplasty ([id number]). Comments: 03/12/2022 11:10 EDT - Glenda Johnson RN LEFT Pacemaker catheter ([id number]). Social History Social & Psychosocial Habits Alcohol 03/12/2022 Use: Never Substance Abuse 03/12/2022 Use: Never Tobacco 03/12/2022 Tobacco Use: Never (less than 100 in l Home/Environment 03/12/2022 Domestic Concerns None Living situation: Home/Independent Nutrition/Health 03/26/2022 Type of diet: Vegetarian Appetite Excellent Eating Difficulties None . Physical Examination Vital Signs 03/26/2022 11:36 EDT Apical Heart Rate 60 bpm Systolic Blood Pressure 155 mmHg HI Diastolic Blood Pressure 69 mmHg 03/26/2022 11:30 EDT Apical Heart Rate 63 bpm Systolic Blood Pressure 179 mmHg HI Diastolic Blood Pressure 61 mmHg Mean Arterial Pressure 100 mmHg 03/26/2022 11:13 EDT Apical Heart Rate 58 bpm LOW Systolic Blood Pressure 214 mmHg HI Diastolic Blood Pressure 83 mmHg 03/26/2022 10:47 EDT Systolic Blood Pressure 223 mmHg HI Diastolic Blood Pressure 88 mmHg 03/26/2022 10:30 EDT Temperature Temporal Artery 36.1 DegC Apical Heart Rate 48 bpm Respiratory Rate 15 br/min Systolic Blood Pressure NBP 237 mmHg >HHI Diastolic Blood Pressure NBP 84 mmHg Vital Signs(last 24 hrs) Last Charted Resp Rate 15 br/min (MAR 26 10:30) SBPC 237mmHg (MAR 26 10:30) DBP84 mmHg (MAR 26 10:30) Measurements from flowsheet : Measurements 03/26/2022 10:30 EDT Height 149.9 cm Height in inches 59 inch(es) Admission Weight 75 kg Weight Lbs 165 lb [place] Body Weight 43.24 kg Admission Body Mass Index 33.38 m2 Pain assessment: Pain Assessment 03/26/2022 10:30 EDT Primary Pain Intensity 0 Pain Scale Type 0-10 Pain scale . General: Alert and oriented. Airway: Normal temporomandibular joint mobility. Mallampati classification: II (soft palate, fauces, uvula visible). Dentition Evaluation: Intact, Dentures, partial plate. Neck: Supple. Respiratory: Lungs are clear to auscultation. Cardiovascular: Normal rate. Heart Sounds: Normal. Gastrointestinal: Soft. Musculoskeletal Normal range of motion. Integumentary: Intact. Neurologic: Alert. Review / Management Results review: No qualifying data available , Lab results 03/26/2022 11:47 EDT Reason for PRN medication Blood pressure change PRN medication effectiveness No PRN Medication Effectiveness Evaluation PRN Medication Effectiveness Evaluation 03/26/2022 11:37 EDT Time Out Procedure Verified Time Out Procedure Site Verified Yes Time Out Procedure Site Marked Yes Consent Form Signed Yes Bedside Procedure Nerve Block Provider #1 Bedside Time Out Lynette Fox RN Provider #2 Bedside Time Out HARRISON FERGUSON [employer] NPO Status Maintained Allergy Band on and Verified Yes Patient ID Band on and Verified Yes Anesthesia Consent Signed Yes Blood Consent Signed Yes 03/26/2022 11:36 EDT Apical Heart Rate 60 bpm Systolic Blood Pressure 155 mmHg HI Diastolic Blood Pressure 69 mmHg 03/26/2022 11:33 EDT SN - Preop - CTm Pt in SDS Room 03/26/2022 10:24 SN - Preop - CTm Pt Ready for OR/Proced 03/26/2022 11:33 03/26/2022 11:30 EDT Apical Heart Rate 63 bpm Systolic Blood Pressure 179 mmHg HI Diastolic Blood Pressure 61 mmHg Mean Arterial Pressure 100 mmHg 03/26/2022 11:13 EDT Apical Heart Rate 58 bpm LOW Systolic Blood Pressure 214 mmHg HI Diastolic Blood Pressure 83 mmHg hydrALAZINE 10 mg mg 03/26/2022 10:59 EDT famotidine 20 mg mg Lactated Ringers Injection 1,000 mL mL 03/26/2022 10:49 EDT Wrist Right 03/26/2022 20 gauge Peripheral IV Activity: Insert new site Peripheral IV Dressing Condition: Clean, Dry, Intact Peripheral IV Dressing Activity: Applied Peripheral IV Line Status/Patency: Flushes easily Peripheral IV Site Condition: No complications Peripheral IV Equipment: Manual Peripheral IV Number of Attempts: 1 03/26/2022 10:47 EDT Systolic Blood Pressure 223 mmHg HI Diastolic Blood Pressure 88 mmHg hydrALAZINE 10 mg mg 03/26/2022 10:39 EDT citric acid-sodium citrate Not Done: Other (Not Done) 03/26/2022 10:30 EDT Height 149.9 cm Height in inches 59 inch(es) Admission Weight 75 kg Weight Lbs 165 lb [place] Body Weight 43.24 kg Admission Body Mass Index 33.38 m2 Temperature Temporal Artery 36.1 DegC Apical Heart Rate 48 bpm Respiratory Rate 15 br/min Systolic Blood Pressure NBP 237 mmHg >HHI Diastolic Blood Pressure NBP 84 mmHg Primary Pain Intensity 0 Pain Scale Type 0-10 Pain scale Monitor Alarms On and Limits Checked Nail Bed Color Stafford Capillary Refill < 2 seconds Heart Rhythm Regular All Lobes Breath Sounds Clear Oxygen Therapy Room air Oxygen Saturation 98 % Abdomen Description Non-distended Abdomen Palpation Non-Tender Bowel Sounds All Quadrants Present Urinary Elimination Voiding, no difficulties Skin Temperature Warm Skin Description Normal for ethnicity Skin Integrity Intact Mucous Membrane Color Stafford IV Present Present Characteristics of Speech Clear Level of Consciousness Alert Strength All Extremities Strong Tone All Extremities Normal Sensation All Extremities Intact Affect/Behavior Appropriate, Calm, Cooperative Orientation Oriented x 4 Allergies Yes Consent Form Signed Yes Patient Dressed In Hospital gown CHG Preoperative Wash/Wipe Night before procedure, Day of procedure Preop Nasal Swab Povidone-Iodine History & Physical Update On Chart Yes History & Physical On Chart Yes Obstructive Sleep Apnea Assess Completed Yes Orientation Assessment Oriented x 4 Activity Status ADL Awake, Resting Assistive Device None SCD On/Re-applied right knee high Antiembolism Stocking On/Re-applied right thigh high NPO Status Maintained Standard Safety ID band on, Allergy Band on, Call device within reach, Bed in low position, Wheels locked, Upper/Half-Length side-rails up, Phone within reach, personal items within reach Demonstrates Correct Call Light Use Yes Allergy Band on and Verified Yes Patient ID Band on and Verified Yes Implants Verified Yes Pacemaker/AICD Verified Yes Anesthesia Consent Signed Yes Blood Consent Signed Yes Last Fluid Intake 03/25/2022 22:30 Last Food Intake 03/25/2022 22:30 Last Void 03/26/2022 8:00 03/26/2022 10:29 EDT Infectious Disease Symptoms Patient states no symptoms Safety Brochure Information Reviewed Yes Angelo Marti Video Viewed No Teaching Evaluation Verbalizes/Nonverbally indicates understanding Belongings At Bedside Jacket, Pants, Purse, Shoes, T-shirt, Undergarments Belongings Sent Home None Belongings Sent To Security None Personal Home Medications Received No home medications were brought in Admission Note-Nursing Same Day Patient History (Modified) . 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 Anesthetic Preoperative Plan Anesthetic technique: Spinal. Induction: intravenously. Regional: Spinal, Adductor Canal Block. Postoperative pain management: Per surgeon. Risks discussed: nausea, vomiting, headache, sore throat, dental injury, hypotension, allergic reaction, serious complications. Informed consent: signed by patient. Digitally Signed by UZMA MAO on 03/26/2022 12:15 PM [facility]06-28-2022 Anesthesiology Progress note* UZMA MAO: PERFORM, SIGN, VERIFY Event Display: Anesthesiology Progress Note Authored Date: Patient: LYNETTE ANGULO Age: 82 years Sex: Female : 1940 Associated Diagnoses: None Author: UZMA MAO Preoperative Information Time of last food or liquid consumption: 03/26/2022 00:00:00 Anesthesia history Patient's history: negative. Family's history: negative. Health Status Allergies: Allergic Reactions (Selected) Severity Not Documented Darvon- Hallucination and anxiety. Demerol HCl- Vomiting and nausea. HydroCHLOROthiazide- Dehydration. Iodine- Shortness of breath. Janumet- Sharp pains. Lisinopril- Headaches. Lotensin- Cough. Penicillin- Hives. Seafood- Shortness of breath. Simvastatin- Myalgias. Spironolactone- Hyperkalemia. Sun radiation- Sun poisioning., Allergies (12) ActiveReaction Darvonhallucination Demerol HClnausea hydroCHLOROthiazidedehydration iodineshortness of breath Janumetsharp pains lisinoprilheadaches Lotensincough penicillinhives Seafoodshortness of breath simvastatinmyalgias spironolactonehyperkalemia sun radiationsun poisioning Current medications: (Selected) Inpatient Medications Ordered Decadron: 10 mg, 1 mL, IV Push, AsDirected Kefzol: 2 gram(s), 200 mL/hr, IV Piggyback, PREOP pharm LR 1,000 mL: 20 mL/hr, Intravenous LR 1000 mL: 20 mL/hr, Intravenous, Stop: 03/27/22 17:59:00 EDT Naropin 25 mg + EPINEPHrine 1 mg/mL injectable solution 0.3 mg + morphine 2.5 m mg, 5 mL, 0 mL/hr, Other, PREOP pharm Naropin 25 mg + EPINEPHrine 1 mg/mL injectable solution 0.3 mg + morphine 2.5 m mg, 5 mL, 0 mL/hr, Other, PREOP pharm Zofran ( PACU ): 4 mg, 2 mL, IV Push, AsDirected, PRN: Nausea/Vomiting fentaNYL ( PACU ): 50 mcg, 1 mL, IV Push, q5min, PRN: Pain, breakthrough hydrALAZINE: 10 mg, 0.5 mL, IV Push, q15min, PRN: Other (see order comments) tranexamic acid 1 g / 100 mL 0.7% NaCl PMX: 1 gram(s), 100 mL, 300 mL/hr, IV Piggyback, AsDirected tranexamic acid 1 g / 100 mL 0.7% NaCl PMX: 1 gram(s), 100 mL, 300 mL/hr, IV Piggyback, AsDirected Documented Medications Documented Misc Medication: 830 mg, Oral, Daily, DHA, 0 Refill(s) Mitigare 0.6 mg oral capsule: 0.6 mg, 1 cap(s), Oral, qDay, 0 Refill(s) Vitamin B12 500 mcg oral tablet: 500 mcg, 1 tab(s), Oral, qDay, 30 tab(s), 0 Refill(s) Vitamin D3: 125 mcg, 1 cap(s), Oral, qDay, 30 cap(s), 0 Refill(s) aspirin 81 mg oral delayed release tablet: 81 mg, 1 tab(s), Oral, Daily, 0 Refill(s) glimepiride 2 mg oral tablet: 2 mg, 1 tab(s), Oral, qDay, 30 tab(s), 0 Refill(s) latanoprost 0.005% ophthalmic solution: 1 drop(s), Eyes, both, qHS, 2.5 mL, 0 Refill(s) levothyroxine 125 mcg (0.125 mg) oral tablet: 125 mcg, 1 tab(s), Oral, qDay, 30 tab(s), 0 Refill(s) losartan 100 mg oral tablet: 100 mg, 1 tab(s), Oral, qDay, 30 tab(s), 0 Refill(s) pantoprazole 40 mg oral enteric coated tablet: 40 mg, 1 tab(s), Oral, qDay, 30 tab(s), 0 Refill(s), Medications (11) Active Scheduled: (6) ceFAZolin 2 gram(s), IV Piggyback, PREOP pharm dexamethasone 10 mg/mL (1mL) SDV 10 mg 1 mL, IV Push, AsDirected ropivacaine 25 mg + epinephrine 0.3 mg + morphine 2.5 mg 25 mg 5 mL, Other, PREOP pharm ropivacaine 25 mg + epinephrine 0.3 mg + morphine 2.5 mg 25 mg 5 mL, Other, PREOP pharm tranexamic acid PMX 1 gram(s) 100 mL, IV Piggyback, AsDirected tranexamic acid PMX 1 gram(s) 100 mL, IV Piggyback, AsDirected Continuous: (2) Lactated Ringers 1,000 mL 1,000 mL, Intravenous, 20 mL/hr Lactated Ringers 1000 mL 1,000 mL, Intravenous, 20 mL/hr PRN: (3) fentaNYL 50 mcg/mL (2mL) ampule 50 mcg 1 mL, IV Push, q5min hydralazine 20 mg/mL (1mL) vial 10 mg 0.5 mL, IV Push, q15min ondansetron 2 mg/ 1 mL 2 mL INJ 4 mg 2 mL, IV Push, AsDirected Problem list: Active Problems (9) Arthritis Atrial fibrillation Diabetes Gout Heart murmur HTN (hypertension) Hypothyroidism Pacemaker Pericardial effusion Histories Past Medical History: No active or resolved past medical history items have been selected or recorded., HTN, AF, pacemaker, hypothyroid Family History: Cancer Father Mother Procedure history: Hysterectomy ([id number]). Tonsillectomy ([id number]). Total knee arthroplasty ([id number]). Comments: 03/12/2022 11:10 Glenda Castaeñda RN LEFT Pacemaker catheter ([id number]). Social History Social & Psychosocial Habits Alcohol 03/12/2022 Use: Never Substance Abuse 03/12/2022 Use: Never Tobacco 03/12/2022 Tobacco Use: Never (less than 100 in l Home/Environment 03/12/2022 Domestic Concerns None Living situation: Home/Independent Nutrition/Health 03/26/2022 Type of diet: Vegetarian Appetite Excellent Eating Difficulties None . Physical Examination Vital Signs 03/26/2022 11:36 EDT Apical Heart Rate 60 bpm Systolic Blood Pressure 155 mmHg HI Diastolic Blood Pressure 69 mmHg 03/26/2022 11:30 EDT Apical Heart Rate 63 bpm Systolic Blood Pressure 179 mmHg HI Diastolic Blood Pressure 61 mmHg Mean Arterial Pressure 100 mmHg 03/26/2022 11:13 EDT Apical Heart Rate 58 bpm LOW Systolic Blood Pressure 214 mmHg HI Diastolic Blood Pressure 83 mmHg 03/26/2022 10:47 EDT Systolic Blood Pressure 223 mmHg HI Diastolic Blood Pressure 88 mmHg 03/26/2022 10:30 EDT Temperature Temporal Artery 36.1 DegC Apical Heart Rate 48 bpm <LLOW Respiratory Rate 15 br/min Systolic Blood Pressure NBP 237 mmHg >HHI Diastolic Blood Pressure NBP 84 mmHg Vital Signs(last 24 hrs) Last Charted Resp Rate 15 br/min (MAR 26 10:30) SBPC 237mmHg (MAR 26 10:30) DBP84 mmHg (MAR 26 10:30) Measurements from flowsheet : Measurements 03/26/2022 10:30 EDT Height 149.9 cm Height in inches 59 inch(es) Admission Weight 75 kg Weight Lbs 165 lb [place] Body Weight 43.24 kg Admission Body Mass Index 33.38 m2 Pain assessment: Pain Assessment 03/26/2022 10:30 EDT Primary Pain Intensity 0 Pain Scale Type 0-10 Pain scale . General: Alert and oriented. Airway: Normal temporomandibular joint mobility. Mallampati classification: II (soft palate, fauces, uvula visible). Dentition Evaluation: Intact, Dentures, partial plate. Neck: Supple. Respiratory: Lungs are clear to auscultation. Cardiovascular: Normal rate. Heart Sounds: Normal. Gastrointestinal: Soft. Musculoskeletal Normal range of motion. Integumentary: Intact. Neurologic: Alert. Review / Management Results review: No qualifying data available , Lab results 03/26/2022 11:47 EDT Reason for PRN medication Blood pressure change PRN medication effectiveness No PRN Medication Effectiveness Evaluation PRN Medication Effectiveness Evaluation 03/26/2022 11:37 EDT Time Out Procedure Verified Time Out Procedure Site Verified Yes Time Out Procedure Site Marked Yes Consent Form Signed Yes Bedside Procedure Nerve Block Provider #1 Bedside Time Out Lynette Fox RN Provider #2 Bedside Time Out HARRISON FERGUSON APRN-MACHINE [employer]PERATORS NPO Status Maintained Allergy Band on and Verified Yes Patient ID Band on and Verified Yes Anesthesia Consent Signed Yes Blood Consent Signed Yes 03/26/2022 11:36 EDT Apical Heart Rate 60 bpm Systolic Blood Pressure 155 mmHg HI Diastolic Blood Pressure 69 mmHg 03/26/2022 11:33 EDT SN - Preop - CTm Pt in SDS Room 03/26/2022 10:24 SN - Preop - CTm Pt Ready for OR/Proced 03/26/2022 11:33 03/26/2022 11:30 EDT Apical Heart Rate 63 bpm Systolic Blood Pressure 179 mmHg HI Diastolic Blood Pressure 61 mmHg Mean Arterial Pressure 100 mmHg 03/26/2022 11:13 EDT Apical Heart Rate 58 bpm LOW Systolic Blood Pressure 214 mmHg HI Diastolic Blood Pressure 83 mmHg hydrALAZINE 10 mg mg 03/26/2022 10:59 EDT famotidine 20 mg mg Lactated Ringers Injection 1,000 mL mL 03/26/2022 10:49 EDT Wrist Right 03/26/2022 20 gauge Peripheral IV Activity: Insert new site Peripheral IV Dressing Condition: Clean, Dry, Intact Peripheral IV Dressing Activity: Applied Peripheral IV Line Status/Patency: Flushes easily Peripheral IV Site Condition: No complications Peripheral IV Equipment: Manual Peripheral IV Number of Attempts: 1 03/26/2022 10:47 EDT Systolic Blood Pressure 223 mmHg HI Diastolic Blood Pressure 88 mmHg hydrALAZINE 10 mg mg 03/26/2022 10:39 EDT citric acid-sodium citrate Not Done: Other (Not Done) 03/26/2022 10:30 EDT Height 149.9 cm Height in inches 59 inch(es) Admission Weight 75 kg Weight Lbs 165 lb [place] Body Weight 43.24 kg Admission Body Mass Index 33.38 m2 Temperature Temporal Artery 36.1 DegC Apical Heart Rate 48 bpm <LLOW Respiratory Rate 15 br/min Systolic Blood Pressure NBP 237 mmHg >HHI Diastolic Blood Pressure NBP 84 mmHg Primary Pain Intensity 0 Pain Scale Type 0-10 Pain scale Monitor Alarms On and Limits Checked Nail Bed Color Stafford Capillary Refill < 2 seconds Heart Rhythm Regular All Lobes Breath Sounds Clear Oxygen Therapy Room air Oxygen Saturation 98 % Abdomen Description Non-distended Abdomen Palpation Non-Tender Bowel Sounds All Quadrants Present Urinary Elimination Voiding, no difficulties Skin Temperature Warm Skin Description Normal for ethnicity Skin Integrity Intact Mucous Membrane Color Stafford IV Present Present Characteristics of Speech Clear Level of Consciousness Alert Strength All Extremities Strong Tone All Extremities Normal Sensation All Extremities Intact Affect/Behavior Appropriate, Calm, Cooperative Orientation Oriented x 4 Allergies Yes Consent Form Signed Yes Patient Dressed In Hospital gown CHG Preoperative Wash/Wipe Night before procedure, Day of procedure Preop Nasal Swab Povidone-Iodine History & Physical Update On Chart Yes History & Physical On Chart Yes Obstructive Sleep Apnea Assess Completed Yes Orientation Assessment Oriented x 4 Activity Status ADL Awake, Resting Assistive Device None SCD On/Re-applied right knee high Antiembolism Stocking On/Re-applied right thigh high NPO Status Maintained Standard Safety ID band on, Allergy Band on, Call device within reach, Bed in low position, Wheels locked, Upper/Half-Length side-rails up, Phone within reach, personal items within reach Demonstrates Correct Call Light Use Yes Allergy Band on and Verified Yes Patient ID Band on and Verified Yes Implants Verified Yes Pacemaker/AICD Verified Yes Anesthesia Consent Signed Yes Blood Consent Signed Yes Last Fluid Intake 03/25/2022 22:30 Last Food Intake 03/25/2022 22:30 Last Void 03/26/2022 8:00 03/26/2022 10:29 EDT Infectious Disease Symptoms Patient states no symptoms Safety Brochure Information Reviewed Yes [facility] Video Viewed No Teaching Evaluation Verbalizes/Nonverbally indicates understanding Belongings At Bedside Jacket, Pants, Purse, Shoes, T-shirt, Undergarments Belongings Sent Home None Belongings Sent To Security None Personal Home Medications Received No home medications were brought in Admission Note-Nursing Same Day Patient History (Modified) . 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 Anesthetic Preoperative Plan Anesthetic technique: Spinal. Induction: intravenously. Regional: Spinal, Adductor Canal Block. Postoperative pain management: Per surgeon. Risks discussed: nausea, vomiting, headache, sore throat, dental injury, hypotension, allergic reaction, serious complications. Informed consent: signed by patient. Digitally Signed by UZMA MAO on 03/26/2022 12:15 PM [facility] 05-31-2022 Instructions* Patient Instructions* Hayde Henry APRN.CNP - 02/26/2022 11:29 AM EDT WOUND CARE GENERAL INFORMATION: A wound is a break in the skin. There are several types of wounds. Abrasions occur when the outer layer of the skin is rubbed or scraped off. Lacerations are cuts in the skin. Puncture wounds are holes that are made by round, sharp objects such as needles or nails. It may have been necessary to close the wound with stitches (sutures) to speed healing and to prevent infection. Using stitches also will decrease the amount of scarring. INSTRUCTIONS: 1. Keep the bandage clean and dry. If it gets wet and you need to change it, unwrap slowly and carefully. If it sticks and starts to hurt, use water to loosen it gently. Pat the area dry with a cleantowel before putting on another bandage. You may use antibiotic ointment. CONTACT YOUR DOCTOR OR RETURN TO THE OFFICE IF: 1. You have a temperature over 100.4 F (38 C). 2. You have signs of infection such as increasing pain or soreness, swelling, redness, pus, a foul smell, or red streaks coming from the injured site. 3. You have numbness or swelling below the wound, or you can't move the joint below. documented in this encounter[facility] [place] History of Present illness Narrative* Hayde Henry APRN.CNP - 02/26/2022 11:25 AM EDT This note was created using fastDoveriter. Subjective Lynette Angulo is a 82 year old female. 82 year old female with PMH HTN, afib, SSS, DM, gout, and thyroid presents with complaints of wound. Acute onset 6 days ago States her own dog (up to date on shots) States he was excited with visitors over the house, and scratched her left forearm. She cleansed the area and has been taking care of wound However, over the past day or two has noted some increased redness Denies drainage. Denies reduced or limited ROM Denies fever or chills. Right hand dominant. Unsure of last tetanus. The history is provided by the patient. No biblical languages professor was used. Trauma This is a new problem. The current episode started in the past 7 days. The problem occurs constantly. The problem has been unchanged. Pertinent negatives include no abdominal pain, anorexia, arthralgias, change in bowel habit, chest pain, chills, congestion, coughing, diaphoresis, fatigue, fever, headaches, joint swelling, myalgias, nausea, neck pain, numbness, rash, sore throat, swollen glands, urinary symptoms, vertigo, visual change, vomiting or weakness. Nothing aggravates the symptoms. Treatments tried: cleansed area and applied band aids. The treatment provided mild relief. PAST MEDICAL HISTORY Diagnosis Date Bradycardia Cancer (HCC) thyroid Diabetes (HCC) Gout Hypercholesteremia Hypertension Thyroid disease PAST SURGICAL HISTORY Procedure Laterality Date APPENDECTOMY HX CATARACT SURGERY, COMPLEX HYSTERECTOMY HX THYROIDECTOMY TOTAL/COMPLETE +parathyroid removal ALLERGIES Darvon [Propoxyphene Hcl], Iodine, Lotensin [Benazepril Hcl], Shellfish, Spironolactone, Adhesive, Demeral [Meperidine], Metoprolol, and Penicillins MEDICATIONS levothyroxine (SYNTHROID) 125 mcg tablet Take 125 mcg by mouth once daily. MITIGARE 0.6 mg capsule TAKE 1 CAPSULE BY MOUTH ONCE DAILY FOR 90 DAYS losartan (COZAAR) 25 mg tablet Take by mouth. latanoprost (XALATAN) 0.005 % ophthalmic solution Use 1 Drop in both eyes daily at bedtime. cyanocobalamin (VITAMIN B-12) 500 mcg tablet Take by mouth once daily. iv contrast (will be provided with radiology test) MRI Cardiac w/Qflow Inject, intravenously, once for 1 dose. No IV access, insert saline lock prior to the beginning of sedation, infusion, injectionof imaging exam. Discontinue saline lock post exam. If Pt has a central line or IVAD, may access for administration according to line specific nursing protocol. Once exam is complete flush line and de-access according to line specific nursing protocol in the MR contrast administration guidelines link glimepiride (AMARYL) 2 mg tablet Take 0.5 tablets by mouth daily with breakfast. OMEGA-3S/DHA/EPA/FISH OIL (OMEGA 3 ORAL) Take 1 tablet by mouth once daily. doxycycline monohydrate 100 mg tablet Take 1 tablet by mouth twice daily for [address] (PROTONIX) 40 mg tablet Take 1 tablet by mouth DAILY (6 AM). aspirin, enteric coated (ASPIRIN, ENTERIC COATED) 325 mg EC tablet Take 1 tablet by mouth three times daily. No family history on file. Social History Tobacco Use Smoking status: Never Smoker Smokeless tobacco: Never Used Substance Use Topics Alcohol use: No Drug use: Never Review of Systems Constitutional: Negative for chills, diaphoresis, fatigue and fever. HENT: Negative for congestion and sore throat. Eyes: Negative for photophobia, pain, discharge, redness, itching and visual disturbance. Respiratory: Negative for apnea, cough, choking and chest tightness. Cardiovascular: Negative for chest pain, palpitations and leg swelling. Gastrointestinal: Negative for abdominal pain, anorexia, change in bowel habit, diarrhea, nausea and vomiting. Musculoskeletal: Negative for arthralgias, joint swelling, myalgias and neck pain. Skin: Positive for wound. Negative for color change and rash. Allergic/Immunologic: Negative for environmental allergies, food allergies and immunocompromised state. Neurological: Negative for dizziness, vertigo, facial asymmetry, weakness, numbness and headaches. Hematological: Negative for adenopathy. Does not bruise/bleed easily. Psychiatric/Behavioral: Negative for agitation and behavioral problems. Objective BP 118/68 Pulse 80 Temp 36.7 C (98 F) Resp 16 Wt 77.1 kg (170 lb) SpO2 97% BMI 33.20 kg/m Physical Exam Vitals and nursing note reviewed. Constitutional: General: She is not in acute distress. Appearance: Normal appearance. She is normal weight. She is not ill-appearing, toxic-appearing or diaphoretic. HENT: Head: Normocephalic and atraumatic. Right Ear: Ear canal and external ear normal. Left Ear: Ear canal and external ear normal. Nose: Nose normal. No congestion or rhinorrhea. Mouth/Throat: Mouth: Mucous membranes are moist. Pharynx: No oropharyngeal exudate or posterior oropharyngeal erythema. Eyes: General: Right eye: No discharge. Left eye: No discharge. Extraocular Movements: Extraocular movements intact. Conjunctiva/sclera: Conjunctivae normal. Pupils: Pupils are equal, round, and reactive to light. Cardiovascular: Rate and Rhythm: Normal rate and regular rhythm. Pulses: Normal pulses. Heart sounds: Normal heart sounds. No murmur heard. No friction rub. Pulmonary: Effort: Pulmonary effort is normal. No respiratory distress. Breath sounds: Normal breath sounds. No stridor. No wheezing, rhonchi or rales. Chest: Chest wall: No tenderness. Abdominal: General: Abdomen is flat. There is no distension. Palpations: Abdomen is soft. There is no mass. Tenderness: There is no abdominal tenderness. There is no right CVA tenderness, left CVA tenderness, guarding or rebound. Hernia: No hernia is present. Musculoskeletal: General: No swelling, tenderness, deformity or signs of injury. Normal range of motion. Cervical back: Normal range of motion and neck supple. No rigidity. Right lower leg: No edema. Left lower leg: No edema. Lymphadenopathy: Cervical: No cervical adenopathy. Skin: General: Skin is warm and dry. Coloration: Skin is not jaundiced or pale. Findings: No bruising, erythema, lesion or rash. Comments: Left forearm with irregular triangle like flap superficial wound. Mild irregular erythema noted surrounding area No red streaking. No abscess. No drainage. +full active and passive ROM. +neuro +sensation Neurological: General: No focal deficit present. Mental Status: She is alert and oriented to person, place, and time. Cranial Nerves: No cranial nerve deficit. Sensory: No sensory deficit. Motor: No weakness. Coordination: Coordination normal. Gait: Gait normal. Psychiatric: Mood and Affect: Mood normal. Behavior: Behavior normal. Thought Content: Thought content normal. Judgment: Judgment normal. Assessment and Plan ASSESSMENT/PLAN: 1. Encounter for immunization - ICD9: V03.89, ICD10: Z23 (primary diagnosis) Unsure of last tetanus Will cover with Tenivac VIS provided 2. Dog scratch - ICD9: 919.0, E906.8, ICD10: W54.8XXA X 6 days Located left forearm Increasing mild erythema No red flags Hemodynamically stable Will cover with Doxycycline Wound care discussed Follow up with PCP Hayde Henry APRN.REFINERY PIPELINE OPERATOR documented in this encounterSelect [facility] [place]-[place]-[facility] Miscellaneous Notes* Telephone Encounter - Bri Quintero RN - 02/19/2022 7:42 AM EDT See my chart message from 02/19/22. Bri Quintero RN * Telephone Encounter - Maime Quintero - 02/15/2022 11:10 AM EDT Patient would like for someone to call her explaining stress test results on 02/11/22 documented in this encounterSelect [facility] [place]05-23-2022 Miscellaneous Notes* Telephone Encounter - Brandie Soria RN - 02/18/2022 5:59 PM EDT Patient transferred to [facility] discharge line. She states she just missed a call from [facility] without a voicemail. She has been waiting for results of her stress test and would like to discuss next steps towards ortho surgery clearance. Please call patient at [phone]. documented in this encounterSelect [facility] [place]-16-[facility]22 History of Present illness Narrative* Simeon Hutchinson RN - 02/11/2022 12:24 PM EDT RADIOLOGY SERVICE PROGRESS NOTE SERVICE DATE: 02/11/2022 SERVICE TIME: 944 PATIENT IDENTITY VERIFICATION COMPLETED USING TWO (2) METHODS: Patient confirmed name and Date of verbally. ALLERGIES REVIEWED: RK MEDICATIONS REVIEWED BY: ABBI PROCEDURE TYPE: NM STRESS: 0.4 mg of Lexiscan was administered IV at 0957 over 10 Seconds by MIN Rush Reversal agent used:NA LOT [id number] EXP [id number] IV SITE: IV palced by nuclear tecnologist POST EXAM PIV STATUS: Discontinued by Chief Controller Tower PATIENT DISCHARGED TO: Nuclear Medicine Department for post stress imaging A Diagnostic radioactive procedure has taken place, with no further precautions necessary other than routine body substance precautions. More information regarding radiation safety can be found usingthis link: [email or web address]%[email or web address] SIGNATURE: SIMEON HUTCHINSON RN PATIENT NAME: LYNETTE ANGULO DATE: 02/11/22 TIME: 12:25 PM documented in this encounterSelect [facility] [place] History of Present illness Narrative* RT Kianna(R) - 02/11/2022 8:30 AM EDT RADIOLOGY SERVICE PROGRESS NOTE SERVICE DATE: 02/11/2022 SERVICE TIME: 08:30 AM PATIENT IDENTITY VERIFICATION COMPLETED USING TWO (2) STANDARD IDENTIFIERS: Name and Date of confirmed by patient verbally FALL SCREENING: Has the patient had 2 falls in the last year or 1 fall with injury or currently using an Ambulatory Assistive Device (Walker, Cane, Wheelchair, Crutches, etc.)? No PATIENT GENDER DATA: .female : No status: No ALLERGIES: Reviewed and unchanged MEDICATIONS REVIEWED: Yes PATIENT RELEVANT IMPLANT DATA REVIEWED: Not Applicable CREATININE: Creatinine Date Value Ref Range Status 01/15/2022 1.03 (H) 0.58 - 0.96 mg/dL Final 01/09/2022 1.17 (H) 0.58 - 0.96 mg/dL Final 01/02/2022 1.37 (H) 0.58 - 0.96 mg/dL Final Estimated Glomerular Filtration Rate Date Value Ref Range Status 01/15/2022 55 (L) >=60 mL/min/1.73m Final Comment: Estimated Glomerular Filtration Rate (eGFR) is calculated using the 2020 CKD-EPI creatinine equation. This equation utilizes serum creatinine, sex, and age as parameters. The creatinine assay has traceable calibration to isotope dilution- mass spectrometry. Refer to KDIGO guidelines for clinical interpretation. In patients with unstable renal function, e.g. those with acute kidney injury, the eGFRmay not accurately reflect actual GFR. eGFR- Date Value Ref Range Status 10/23/2021 38 Final P.O.C.T. RESULTS: N/A February 11, [address] PERFORMED: No IV SITE: Ambulatory: A peripheral IV was started in the Left antecubital site with a Angio cath: 22gauge. POST EXAM PIV STATUS: Discontinued PROCEDURE TYPE: NM Stress: 14.9mCi [id number] was administered IV for Rest Imaging at 08:40 by dianelys Hutchison. 47.6 mCi [id number] was administered IV for Stress Imaging at 09:57 by dianelys Hutchison. ADMINISTRATION TIME: PATIENT DISCHARGED TO: Ambulatory patient, left NM department area. A Diagnostic radioactive procedure has taken place, with no further precautions necessary other than routine body substance precautions. More information regarding radiation safety can be found usingthis link: [email or web address]%20Medicine%[email or web address] SIGNATURE: FARHAT Hutchison) PATIENT NAME: Lynette Angulo DATE: February 11, 2022 TIME: 10:57 AM PAGER/CONTACT #: [facility] [place] History of Present illness Narrative* FARHAT Marrero) - 01/22/2022 3:00 PM EDT Radiology Service Progress Note PATIENT NAME: Lynette Angulo DATE OF SERVICE: January 22, 2022 TIME: 3:00 PM PATIENT IDENTITY VERIFICATION COMPLETED USING TWO (2) IDENTIFIERS: Name and Date of confirmedby patient verbally. FALL SCREENING: Has the patient had 2 falls in the last year or 1 fall with injury or currently using an Ambulatory Assistive Device (Walker, Cane, Wheelchair, Crutches, etc.)? No PATIENT GENDER DATA: Female. status: : No status: NO. PATIENT RELEVANT IMPLANT DATA REVIEWED: Not Applicable RADIOLOGY DEPARTMENT: Bone Density PERIPHERAL IV DATA: Not applicable SIGNED BY: FARHAT Marrero) January 22, 2022 3:00 PM documented in this encounter[facility] [place] History of Past illness Narrative* Problem Noted Date Resolved Date POLY (acute kidney injury) 08/24/20202019 Overview: Baseline Cr 1.7. Cr today 2.2. Likely prerenal possibly CRS. Plan: -Urine studies -Trend Cr -IVF as needed Acute liver disease 08/24/2020 09/01/2020 Overview: LFTs elevating rapidly from 500s today to 1000s tonight. Possible etiology may be ischemia from poor forward flow in setting of pericardial effusion vs hepatic congestion from effusion (more likely). INR 1.2, albumin 4.0. No AMS or abdominal pain. Pt with normal liver labs at baseline Plan: -Tremd LFTs -Treat pericardial effusion -Tylenol level -Acute and remote hepatitis panels Pericardial effusion 08/23/2020 09/01/2020 Overview: Pt with new onset moderate to large pericardial effusion in setting of recent severe fatigue and MCGOVERN. Concern for hypotension on RNF and development of tamponade which prompted transfer to CICU. Pt is warm on exam and had mild lactate of 2.3 which improved with IVF. Does have bilateral pleural effusions on CXR L>R but is satting well on 2L NC. Unclear etiology- pt does report several weeks of URI symptoms which could point to viral pericarditis but degree of effusion is less consistent with viral etiology. Malignancy is a possibility as well. CT chest from OSH report does not mention lung mass (images not sent). Pt has not history of rheumatic disease. CRP is highly elevated. Plan: -CTM closely for signs of cardiac tamponade -Bedside echo without signs of tamponade physiology -Formal echo -Likely pericardiocentesis in AM- send routine labs and cytology -Consider thoracentesis of right pleural effusion -Bolus IVF as needed for hypotension to maintain RV volume documented as of this encounter (statuses as of 01/23/2022) [facility] [place]11[facility] History of Past illness Narrative* Problem Noted Date Resolved Date POLY (acute kidney injury) 08/24/20202019 Overview: Baseline Cr 1.7. Cr today 2.2. Likely prerenal possibly CRS. Plan: -Urine studies -Trend Cr -IVF as needed Acute liver disease 08/24/2020 09/01/2020 Overview: LFTs elevating rapidly from 500s today to 1000s tonight. Possible etiology may be ischemia from poor forward flow in setting of pericardial effusion vs hepatic congestion from effusion (more likely). INR 1.2, albumin 4.0. No AMS or abdominal pain. Pt with normal liver labs at baseline Plan: -Tremd LFTs -Treat pericardial effusion -Tylenol level -Acute and remote hepatitis panels Pericardial effusion 08/23/2020 09/01/2020 Overview: Pt with new onset moderate to large pericardial effusion in setting of recent severe fatigue and MCGOVERN. Concern for hypotension on RNF and development of tamponade which prompted transfer to CICU. Pt is warm on exam and had mild lactate of 2.3 which improved with IVF. Does have bilateral pleural effusions on CXR L>R but is satting well on 2L NC. Unclear etiology- pt does report several weeks of URI symptoms which could point to viral pericarditis but degree of effusion is less consistent with viral etiology. Malignancy is a possibility as well. CT chest from OSH report does not mention lung mass (images not sent). Pt has not history of rheumatic disease. CRP is highly elevated. Plan: -CTM closely for signs of cardiac tamponade -Bedside echo without signs of tamponade physiology -Formal echo -Likely pericardiocentesis in AM- send routine labs and cytology -Consider thoracentesis of right pleural effusion -Bolus IVF as needed for hypotension to maintain RV volume documented as of this encounter (statuses as of 02/11/2022) [facility] [place] History of Past illness Narrative* Problem Noted Date Resolved Date POLY (acute kidney injury) 08/24/20202019 Overview: Baseline Cr 1.7. Cr today 2.2. Likely prerenal possibly CRS. Plan: -Urine studies -Trend Cr -IVF as needed Acute liver disease 08/24/2020 09/01/2020 Overview: LFTs elevating rapidly from 500s today to 1000s tonight. Possible etiology may be ischemia from poor forward flow in setting of pericardial effusion vs hepatic congestion from effusion (more likely). INR 1.2, albumin 4.0. No AMS or abdominal pain. Pt with normal liver labs at baseline Plan: -Tremd LFTs -Treat pericardial effusion -Tylenol level -Acute and remote hepatitis panels Pericardial effusion 08/23/2020 09/01/2020 Overview: Pt with new onset moderate to large pericardial effusion in setting of recent severe fatigue and MCGOVERN. Concern for hypotension on RNF and development of tamponade which prompted transfer to CICU. Pt is warm on exam and had mild lactate of 2.3 which improved with IVF. Does have bilateral pleural effusions on CXR L>R but is satting well on 2L NC. Unclear etiology- pt does report several weeks of URI symptoms which could point to viral pericarditis but degree of effusion is less consistent with viral etiology. Malignancy is a possibility as well. CT chest from OSH report does not mention lung mass (images not sent). Pt has not history of rheumatic disease. CRP is highly elevated. Plan: -CTM closely for signs of cardiac tamponade -Bedside echo without signs of tamponade physiology -Formal echo -Likely pericardiocentesis in AM- send routine labs and cytology -Consider thoracentesis of right pleural effusion -Bolus IVF as needed for hypotension to maintain RV volume documented as of this encounter (statuses as of 02/12/2022) [facility] [place] History of Past illness Narrative* Problem Noted Date Resolved Date POLY (acute kidney injury) 08/24/20202019 Overview: Baseline Cr 1.7. Cr today 2.2. Likely prerenal possibly CRS. Plan: -Urine studies -Trend Cr -IVF as needed Acute liver disease 08/24/2020 09/01/2020 Overview: LFTs elevating rapidly from 500s today to 1000s tonight. Possible etiology may be ischemia from poor forward flow in setting of pericardial effusion vs hepatic congestion from effusion (more likely). INR 1.2, albumin 4.0. No AMS or abdominal pain. Pt with normal liver labs at baseline Plan: -Tremd LFTs -Treat pericardial effusion -Tylenol level -Acute and remote hepatitis panels Pericardial effusion 08/23/2020 09/01/2020 Overview: Pt with new onset moderate to large pericardial effusion in setting of recent severe fatigue and MCGOVERN. Concern for hypotension on RNF and development of tamponade which prompted transfer to CICU. Pt is warm on exam and had mild lactate of 2.3 which improved with IVF. Does have bilateral pleural effusions on CXR L>R but is satting well on 2L NC. Unclear etiology- pt does report several weeks of URI symptoms which could point to viral pericarditis but degree of effusion is less consistent with viral etiology. Malignancy is a possibility as well. CT chest from OSH report does not mention lung mass (images not sent). Pt has not history of rheumatic disease. CRP is highly elevated. Plan: -CTM closely for signs of cardiac tamponade -Bedside echo without signs of tamponade physiology -Formal echo -Likely pericardiocentesis in AM- send routine labs and cytology -Consider thoracentesis of right pleural effusion -Bolus IVF as needed for hypotension to maintain RV volume documented as of this encounter (statuses as of 02/12/2022) [facility] [place] History of Past illness Narrative* Problem Noted Date Resolved Date POLY (acute kidney injury) 08/24/20202019 Overview: Baseline Cr 1.7. Cr today 2.2. Likely prerenal possibly CRS. Plan: -Urine studies -Trend Cr -IVF as needed Acute liver disease 08/24/2020 09/01/2020 Overview: LFTs elevating rapidly from 500s today to 1000s tonight. Possible etiology may be ischemia from poor forward flow in setting of pericardial effusion vs hepatic congestion from effusion (more likely). INR 1.2, albumin 4.0. No AMS or abdominal pain. Pt with normal liver labs at baseline Plan: -Tremd LFTs -Treat pericardial effusion -Tylenol level -Acute and remote hepatitis panels Pericardial effusion 08/23/2020 09/01/2020 Overview: Pt with new onset moderate to large pericardial effusion in setting of recent severe fatigue and MCGOVERN. Concern for hypotension on RNF and development of tamponade which prompted transfer to CICU. Pt is warm on exam and had mild lactate of 2.3 which improved with IVF. Does have bilateral pleural effusions on CXR L>R but is satting well on 2L NC. Unclear etiology- pt does report several weeks of URI symptoms which could point to viral pericarditis but degree of effusion is less consistent with viral etiology. Malignancy is a possibility as well. CT chest from OSH report does not mention lung mass (images not sent). Pt has not history of rheumatic disease. CRP is highly elevated. Plan: -CTM closely for signs of cardiac tamponade -Bedside echo without signs of tamponade physiology -Formal echo -Likely pericardiocentesis in AM- send routine labs and cytology -Consider thoracentesis of right pleural effusion -Bolus IVF as needed for hypotension to maintain RV volume documented as of this encounter (statuses as of 02/18/2022) [facility] [place] History of Past illness Narrative* Problem Noted Date Resolved Date POLY (acute kidney injury) 08/24/20202019 Overview: Baseline Cr 1.7. Cr today 2.2. Likely prerenal possibly CRS. Plan: -Urine studies -Trend Cr -IVF as needed Acute liver disease 08/24/2020 09/01/2020 Overview: LFTs elevating rapidly from 500s today to 1000s tonight. Possible etiology may be ischemia from poor forward flow in setting of pericardial effusion vs hepatic congestion from effusion (more likely). INR 1.2, albumin 4.0. No AMS or abdominal pain. Pt with normal liver labs at baseline Plan: -Tremd LFTs -Treat pericardial effusion -Tylenol level -Acute and remote hepatitis panels Pericardial effusion 08/23/2020 09/01/2020 Overview: Pt with new onset moderate to large pericardial effusion in setting of recent severe fatigue and MCGOVERN. Concern for hypotension on RNF and development of tamponade which prompted transfer to CICU. Pt is warm on exam and had mild lactate of 2.3 which improved with IVF. Does have bilateral pleural effusions on CXR L>R but is satting well on 2L NC. Unclear etiology- pt does report several weeks of URI symptoms which could point to viral pericarditis but degree of effusion is less consistent with viral etiology. Malignancy is a possibility as well. CT chest from OSH report does not mention lung mass (images not sent). Pt has not history of rheumatic disease. CRP is highly elevated. Plan: -CTM closely for signs of cardiac tamponade -Bedside echo without signs of tamponade physiology -Formal echo -Likely pericardiocentesis in AM- send routine labs and cytology -Consider thoracentesis of right pleural effusion -Bolus IVF as needed for hypotension to maintain RV volume documented as of this encounter (statuses as of 02/19/2022) [facility] [place] History of Past illness Narrative* Problem Noted Date Resolved Date POLY (acute kidney injury) 08/24/20202019 Overview: Baseline Cr 1.7. Cr today 2.2. Likely prerenal possibly CRS. Plan: -Urine studies -Trend Cr -IVF as needed Acute liver disease 08/24/2020 09/01/2020 Overview: LFTs elevating rapidly from 500s today to 1000s tonight. Possible etiology may be ischemia from poor forward flow in setting of pericardial effusion vs hepatic congestion from effusion (more likely). INR 1.2, albumin 4.0. No AMS or abdominal pain. Pt with normal liver labs at baseline Plan: -Tremd LFTs -Treat pericardial effusion -Tylenol level -Acute and remote hepatitis panels Pericardial effusion 08/23/2020 09/01/2020 Overview: Pt with new onset moderate to large pericardial effusion in setting of recent severe fatigue and MCGOVERN. Concern for hypotension on RNF and development of tamponade which prompted transfer to CICU. Pt is warm on exam and had mild lactate of 2.3 which improved with IVF. Does have bilateral pleural effusions on CXR L>R but is satting well on 2L NC. Unclear etiology- pt does report several weeks of URI symptoms which could point to viral pericarditis but degree of effusion is less consistent with viral etiology. Malignancy is a possibility as well. CT chest from OSH report does not mention lung mass (images not sent). Pt has not history of rheumatic disease. CRP is highly elevated. Plan: -CTM closely for signs of cardiac tamponade -Bedside echo without signs of tamponade physiology -Formal echo -Likely pericardiocentesis in AM- send routine labs and cytology -Consider thoracentesis of right pleural effusion -Bolus IVF as needed for hypotension to maintain RV volume documented as of this encounter (statuses as of 02/26/2022) [facility] [place] History of Past illness Narrative* Problem Noted Date Resolved Date POLY (acute kidney injury) 08/24/20202019 Overview: Baseline Cr 1.7. Cr today 2.2. Likely prerenal possibly CRS. Plan: -Urine studies -Trend Cr -IVF as needed Acute liver disease 08/24/2020 09/01/2020 Overview: LFTs elevating rapidly from 500s today to 1000s tonight. Possible etiology may be ischemia from poor forward flow in setting of pericardial effusion vs hepatic congestion from effusion (more likely). INR 1.2, albumin 4.0. No AMS or abdominal pain. Pt with normal liver labs at baseline Plan: -Tremd LFTs -Treat pericardial effusion -Tylenol level -Acute and remote hepatitis panels Pericardial effusion 08/23/2020 09/01/2020 Overview: Pt with new onset moderate to large pericardial effusion in setting of recent severe fatigue and MCGOVERN. Concern for hypotension on RNF and development of tamponade which prompted transfer to CICU. Pt is warm on exam and had mild lactate of 2.3 which improved with IVF. Does have bilateral pleural effusions on CXR L>R but is satting well on 2L NC. Unclear etiology- pt does report several weeks of URI symptoms which could point to viral pericarditis but degree of effusion is less consistent with viral etiology. Malignancy is a possibility as well. CT chest from OSH report does not mention lung mass (images not sent). Pt has not history of rheumatic disease. CRP is highly elevated. Plan: -CTM closely for signs of cardiac tamponade -Bedside echo without signs of tamponade physiology -Formal echo -Likely pericardiocentesis in AM- send routine labs and cytology -Consider thoracentesis of right pleural effusion -Bolus IVF as needed for hypotension to maintain RV volume documented as of this encounter (statuses as of 03/07/2022) [facility] [place] History of Past illness Narrative* Problem Noted Date Resolved Date POLY (acute kidney injury) 08/24/20202019 Overview: Baseline Cr 1.7. Cr today 2.2. Likely prerenal possibly CRS. Plan: -Urine studies -Trend Cr -IVF as needed Acute liver disease 08/24/2020 09/01/2020 Overview: LFTs elevating rapidly from 500s today to 1000s tonight. Possible etiology may be ischemia from poor forward flow in setting of pericardial effusion vs hepatic congestion from effusion (more likely). INR 1.2, albumin 4.0. No AMS or abdominal pain. Pt with normal liver labs at baseline Plan: -Tremd LFTs -Treat pericardial effusion -Tylenol level -Acute and remote hepatitis panels Pericardial effusion 08/23/2020 09/01/2020 Overview: Pt with new onset moderate to large pericardial effusion in setting of recent severe fatigue and MCGOVERN. Concern for hypotension on RNF and development of tamponade which prompted transfer to CICU. Pt is warm on exam and had mild lactate of 2.3 which improved with IVF. Does have bilateral pleural effusions on CXR L>R but is satting well on 2L NC. Unclear etiology- pt does report several weeks of URI symptoms which could point to viral pericarditis but degree of effusion is less consistent with viral etiology. Malignancy is a possibility as well. CT chest from OSH report does not mention lung mass (images not sent). Pt has not history of rheumatic disease. CRP is highly elevated. Plan: -CTM closely for signs of cardiac tamponade -Bedside echo without signs of tamponade physiology -Formal echo -Likely pericardiocentesis in AM- send routine labs and cytology -Consider thoracentesis of right pleural effusion -Bolus IVF as needed for hypotension to maintain RV volume documented as of this encounter (statuses as of 05/03/2022) [facility] [place] History of Past illness Narrative* Problem Noted Date Resolved Date POLY (acute kidney injury) 08/24/20202019 Overview: Baseline Cr 1.7. Cr today 2.2. Likely prerenal possibly CRS. Plan: -Urine studies -Trend Cr -IVF as needed Acute liver disease 08/24/2020 09/01/2020 Overview: LFTs elevating rapidly from 500s today to 1000s tonight. Possible etiology may be ischemia from poor forward flow in setting of pericardial effusion vs hepatic congestion from effusion (more likely). INR 1.2, albumin 4.0. No AMS or abdominal pain. Pt with normal liver labs at baseline Plan: -Tremd LFTs -Treat pericardial effusion -Tylenol level -Acute and remote hepatitis panels Pericardial effusion 08/23/2020 09/01/2020 Overview: Pt with new onset moderate to large pericardial effusion in setting of recent severe fatigue and MCGOVERN. Concern for hypotension on RNF and development of tamponade which prompted transfer to CICU. Pt is warm on exam and had mild lactate of 2.3 which improved with IVF. Does have bilateral pleural effusions on CXR L>R but is satting well on 2L NC. Unclear etiology- pt does report several weeks of URI symptoms which could point to viral pericarditis but degree of effusion is less consistent with viral etiology. Malignancy is a possibility as well. CT chest from OSH report does not mention lung mass (images not sent). Pt has not history of rheumatic disease. CRP is highly elevated. Plan: -CTM closely for signs of cardiac tamponade -Bedside echo without signs of tamponade physiology -Formal echo -Likely pericardiocentesis in AM- send routine labs and cytology -Consider thoracentesis of right pleural effusion -Bolus IVF as needed for hypotension to maintain RV volume documented as of this encounter (statuses as of 05/08/2022) [facility] [place] History of Past illness Narrative* Problem Noted Date Resolved Date POLY (acute kidney injury) 08/24/20202019 Overview: Baseline Cr 1.7. Cr today 2.2. Likely prerenal possibly CRS. Plan: -Urine studies -Trend Cr -IVF as needed Acute liver disease 08/24/2020 09/01/2020 Overview: LFTs elevating rapidly from 500s today to 1000s tonight. Possible etiology may be ischemia from poor forward flow in setting of pericardial effusion vs hepatic congestion from effusion (more likely). INR 1.2, albumin 4.0. No AMS or abdominal pain. Pt with normal liver labs at baseline Plan: -Tremd LFTs -Treat pericardial effusion -Tylenol level -Acute and remote hepatitis panels Pericardial effusion 08/23/2020 09/01/2020 Overview: Pt with new onset moderate to large pericardial effusion in setting of recent severe fatigue and MCGOVERN. Concern for hypotension on RNF and development of tamponade which prompted transfer to CICU. Pt is warm on exam and had mild lactate of 2.3 which improved with IVF. Does have bilateral pleural effusions on CXR L>R but is satting well on 2L NC. Unclear etiology- pt does report several weeks of URI symptoms which could point to viral pericarditis but degree of effusion is less consistent with viral etiology. Malignancy is a possibility as well. CT chest from OSH report does not mention lung mass (images not sent). Pt has not history of rheumatic disease. CRP is highly elevated. Plan: -CTM closely for signs of cardiac tamponade -Bedside echo without signs of tamponade physiology -Formal echo -Likely pericardiocentesis in AM- send routine labs and cytology -Consider thoracentesis of right pleural effusion -Bolus IVF as needed for hypotension to maintain RV volume documented as of this encounter (statuses as of 05/30/2022) [facility] [place] History of Past illness Narrative* Problem Noted Date Resolved Date POLY (acute kidney injury) 08/24/20202019 Overview: Baseline Cr 1.7. Cr today 2.2. Likely prerenal possibly CRS. Plan: -Urine studies -Trend Cr -IVF as needed Acute liver disease 08/24/2020 09/01/2020 Overview: LFTs elevating rapidly from 500s today to 1000s tonight. Possible etiology may be ischemia from poor forward flow in setting of pericardial effusion vs hepatic congestion from effusion (more likely). INR 1.2, albumin 4.0. No AMS or abdominal pain. Pt with normal liver labs at baseline Plan: -Tremd LFTs -Treat pericardial effusion -Tylenol level -Acute and remote hepatitis panels Pericardial effusion 08/23/2020 09/01/2020 Overview: Pt with new onset moderate to large pericardial effusion in setting of recent severe fatigue and MCGOVERN. Concern for hypotension on RNF and development of tamponade which prompted transfer to CICU. Pt is warm on exam and had mild lactate of 2.3 which improved with IVF. Does have bilateral pleural effusions on CXR L>R but is satting well on 2L NC. Unclear etiology- pt does report several weeks of URI symptoms which could point to viral pericarditis but degree of effusion is less consistent with viral etiology. Malignancy is a possibility as well. CT chest from OSH report does not mention lung mass (images not sent). Pt has not history of rheumatic disease. CRP is highly elevated. Plan: -CTM closely for signs of cardiac tamponade -Bedside echo without signs of tamponade physiology -Formal echo -Likely pericardiocentesis in AM- send routine labs and cytology -Consider thoracentesis of right pleural effusion -Bolus IVF as needed for hypotension to maintain RV volume documented as of this encounter (statuses as of 05/31/2022) [facility] [place] History of Past illness Narrative* Problem Noted Date Resolved Date POLY (acute kidney injury) 08/24/20202019 Overview: Baseline Cr 1.7. Cr today 2.2. Likely prerenal possibly CRS. Plan: -Urine studies -Trend Cr -IVF as needed Acute liver disease 08/24/2020 09/01/2020 Overview: LFTs elevating rapidly from 500s today to 1000s tonight. Possible etiology may be ischemia from poor forward flow in setting of pericardial effusion vs hepatic congestion from effusion (more likely). INR 1.2, albumin 4.0. No AMS or abdominal pain. Pt with normal liver labs at baseline Plan: -Tremd LFTs -Treat pericardial effusion -Tylenol level -Acute and remote hepatitis panels Pericardial effusion 08/23/2020 09/01/2020 Overview: Pt with new onset moderate to large pericardial effusion in setting of recent severe fatigue and MCGOVERN. Concern for hypotension on RNF and development of tamponade which prompted transfer to CICU. Pt is warm on exam and had mild lactate of 2.3 which improved with IVF. Does have bilateral pleural effusions on CXR L>R but is satting well on 2L NC. Unclear etiology- pt does report several weeks of URI symptoms which could point to viral pericarditis but degree of effusion is less consistent with viral etiology. Malignancy is a possibility as well. CT chest from OSH report does not mention lung mass (images not sent). Pt has not history of rheumatic disease. CRP is highly elevated. Plan: -CTM closely for signs of cardiac tamponade -Bedside echo without signs of tamponade physiology -Formal echo -Likely pericardiocentesis in AM- send routine labs and cytology -Consider thoracentesis of right pleural effusion -Bolus IVF as needed for hypotension to maintain RV volume documented as of this encounter (statuses as of 05/31/2022) [facility] [place]11-26-2020 History of Past illness Narrative* Problem Noted Date Resolved Date POLY (acute kidney injury) 08/24/20202019 Overview: Baseline Cr 1.7. Cr today 2.2. Likely prerenal possibly CRS. Plan: -Urine studies -Trend Cr -IVF as needed Acute liver disease 08/24/2020 09/01/2020 Overview: LFTs elevating rapidly from 500s today to 1000s tonight. Possible etiology may be ischemia from poor forward flow in setting of pericardial effusion vs hepatic congestion from effusion (more likely). INR 1.2, albumin 4.0. No AMS or abdominal pain. Pt with normal liver labs at baseline Plan: -Tremd LFTs -Treat pericardial effusion -Tylenol level -Acute and remote hepatitis panels Pericardial effusion 08/23/2020 09/01/2020 Overview: Pt with new onset moderate to large pericardial effusion in setting of recent severe fatigue and MCGOVERN. Concern for hypotension on RNF and development of tamponade which prompted transfer to CICU. Pt is warm on exam and had mild lactate of 2.3 which improved with IVF. Does have bilateral pleural effusions on CXR L>R but is satting well on 2L NC. Unclear etiology- pt does report several weeks of URI symptoms which could point to viral pericarditis but degree of effusion is less consistent with viral etiology. Malignancy is a possibility as well. CT chest from OSH report does not mention lung mass (images not sent). Pt has not history of rheumatic disease. CRP is highly elevated. Plan: -CTM closely for signs of cardiac tamponade -Bedside echo without signs of tamponade physiology -Formal echo -Likely pericardiocentesis in AM- send routine labs and cytology -Consider thoracentesis of right pleural effusion -Bolus IVF as needed for hypotension to maintain RV volume documented as of this encounter (statuses as of 05/31/2022) [facility] [place]11-26-2020 History of Past illness Narrative* Problem Noted Date Resolved Date POLY (acute kidney injury) 08/24/20202019 Overview: Baseline Cr 1.7. Cr today 2.2. Likely prerenal possibly CRS. Plan: -Urine studies -Trend Cr -IVF as needed Acute liver disease 08/24/2020 09/01/2020 Overview: LFTs elevating rapidly from 500s today to 1000s tonight. Possible etiology may be ischemia from poor forward flow in setting of pericardial effusion vs hepatic congestion from effusion (more likely). INR 1.2, albumin 4.0. No AMS or abdominal pain. Pt with normal liver labs at baseline Plan: -Tremd LFTs -Treat pericardial effusion -Tylenol level -Acute and remote hepatitis panels Pericardial effusion 08/23/2020 09/01/2020 Overview: Pt with new onset moderate to large pericardial effusion in setting of recent severe fatigue and MCGOVERN. Concern for hypotension on RNF and development of tamponade which prompted transfer to CICU. Pt is warm on exam and had mild lactate of 2.3 which improved with IVF. Does have bilateral pleural effusions on CXR L>R but is satting well on 2L NC. Unclear etiology- pt does report several weeks of URI symptoms which could point to viral pericarditis but degree of effusion is less consistent with viral etiology. Malignancy is a possibility as well. CT chest from OSH report does not mention lung mass (images not sent). Pt has not history of rheumatic disease. CRP is highly elevated. Plan: -CTM closely for signs of cardiac tamponade -Bedside echo without signs of tamponade physiology -Formal echo -Likely pericardiocentesis in AM- send routine labs and cytology -Consider thoracentesis of right pleural effusion -Bolus IVF as needed for hypotension to maintain RV volume documented as of this encounter (statuses as of 11/27/2022) [facility] [place]11-26-2020 History of Past illness Narrative* Problem Noted Date Resolved Date POLY (acute kidney injury) 08/24/20202019 Overview: Baseline Cr 1.7. Cr today 2.2. Likely prerenal possibly CRS. Plan: -Urine studies -Trend Cr -IVF as needed Acute liver disease 08/24/2020 09/01/2020 Overview: LFTs elevating rapidly from 500s today to 1000s tonight. Possible etiology may be ischemia from poor forward flow in setting of pericardial effusion vs hepatic congestion from effusion (more likely). INR 1.2, albumin 4.0. No AMS or abdominal pain. Pt with normal liver labs at baseline Plan: -Tremd LFTs -Treat pericardial effusion -Tylenol level -Acute and remote hepatitis panels Pericardial effusion 08/23/2020 09/01/2020 Overview: Pt with new onset moderate to large pericardial effusion in setting of recent severe fatigue and MCGOVERN. Concern for hypotension on RNF and development of tamponade which prompted transfer to CICU. Pt is warm on exam and had mild lactate of 2.3 which improved with IVF. Does have bilateral pleural effusions on CXR L>R but is satting well on 2L NC. Unclear etiology- pt does report several weeks of URI symptoms which could point to viral pericarditis but degree of effusion is less consistent with viral etiology. Malignancy is a possibility as well. CT chest from OSH report does not mention lung mass (images not sent). Pt has not history of rheumatic disease. CRP is highly elevated. Plan: -CTM closely for signs of cardiac tamponade -Bedside echo without signs of tamponade physiology -Formal echo -Likely pericardiocentesis in AM- send routine labs and cytology -Consider thoracentesis of right pleural effusion -Bolus IVF as needed for hypotension to maintain RV volume documented as of this encounter (statuses as of 11/30/2022) [facility] [place]11-26-2020 History of Past illness Narrative* Problem Noted Date Resolved Date POLY (acute kidney injury) 08/24/20202019 Overview: Baseline Cr 1.7. Cr today 2.2. Likely prerenal possibly CRS. Plan: -Urine studies -Trend Cr -IVF as needed Acute liver disease 08/24/2020 09/01/2020 Overview: LFTs elevating rapidly from 500s today to 1000s tonight. Possible etiology may be ischemia from poor forward flow in setting of pericardial effusion vs hepatic congestion from effusion (more likely). INR 1.2, albumin 4.0. No AMS or abdominal pain. Pt with normal liver labs at baseline Plan: -Tremd LFTs -Treat pericardial effusion -Tylenol level -Acute and remote hepatitis panels Pericardial effusion 08/23/2020 09/01/2020 Overview: Pt with new onset moderate to large pericardial effusion in setting of recent severe fatigue and MCGOVERN. Concern for hypotension on RNF and development of tamponade which prompted transfer to CICU. Pt is warm on exam and had mild lactate of 2.3 which improved with IVF. Does have bilateral pleural effusions on CXR L>R but is satting well on 2L NC. Unclear etiology- pt does report several weeks of URI symptoms which could point to viral pericarditis but degree of effusion is less consistent with viral etiology. Malignancy is a possibility as well. CT chest from OSH report does not mention lung mass (images not sent). Pt has not history of rheumatic disease. CRP is highly elevated. Plan: -CTM closely for signs of cardiac tamponade -Bedside echo without signs of tamponade physiology -Formal echo -Likely pericardiocentesis in AM- send routine labs and cytology -Consider thoracentesis of right pleural effusion -Bolus IVF as needed for hypotension to maintain RV volume documented as of this encounter (statuses as of 12/01/2022) [facility] [place]11-26-2020 History of Past illness Narrative* Problem Noted Date Resolved Date POLY (acute kidney injury) 08/24/20202019 Overview: Baseline Cr 1.7. Cr today 2.2. Likely prerenal possibly CRS. Plan: -Urine studies -Trend Cr -IVF as needed Acute liver disease 08/24/2020 09/01/2020 Overview: LFTs elevating rapidly from 500s today to 1000s tonight. Possible etiology may be ischemia from poor forward flow in setting of pericardial effusion vs hepatic congestion from effusion (more likely). INR 1.2, albumin 4.0. No AMS or abdominal pain. Pt with normal liver labs at baseline Plan: -Tremd LFTs -Treat pericardial effusion -Tylenol level -Acute and remote hepatitis panels Pericardial effusion 08/23/2020 09/01/2020 Overview: Pt with new onset moderate to large pericardial effusion in setting of recent severe fatigue and MCGOVERN. Concern for hypotension on RNF and development of tamponade which prompted transfer to CICU. Pt is warm on exam and had mild lactate of 2.3 which improved with IVF. Does have bilateral pleural effusions on CXR L>R but is satting well on 2L NC. Unclear etiology- pt does report several weeks of URI symptoms which could point to viral pericarditis but degree of effusion is less consistent with viral etiology. Malignancy is a possibility as well. CT chest from OSH report does not mention lung mass (images not sent). Pt has not history of rheumatic disease. CRP is highly elevated. Plan: -CTM closely for signs of cardiac tamponade -Bedside echo without signs of tamponade physiology -Formal echo -Likely pericardiocentesis in AM- send routine labs and cytology -Consider thoracentesis of right pleural effusion -Bolus IVF as needed for hypotension to maintain RV volume documented as of this encounter (statuses as of 12/04/2022) [facility] [place]11-26-2020 History of Past illness Narrative* Problem Noted Date Resolved Date POLY (acute kidney injury) 08/24/20202019 Overview: Baseline Cr 1.7. Cr today 2.2. Likely prerenal possibly CRS. Plan: -Urine studies -Trend Cr -IVF as needed Acute liver disease 08/24/2020 09/01/2020 Overview: LFTs elevating rapidly from 500s today to 1000s tonight. Possible etiology may be ischemia from poor forward flow in setting of pericardial effusion vs hepatic congestion from effusion (more likely). INR 1.2, albumin 4.0. No AMS or abdominal pain. Pt with normal liver labs at baseline Plan: -Tremd LFTs -Treat pericardial effusion -Tylenol level -Acute and remote hepatitis panels Pericardial effusion 08/23/2020 09/01/2020 Overview: Pt with new onset moderate to large pericardial effusion in setting of recent severe fatigue and MCGOVERN. Concern for hypotension on RNF and development of tamponade which prompted transfer to CICU. Pt is warm on exam and had mild lactate of 2.3 which improved with IVF. Does have bilateral pleural effusions on CXR L>R but is satting well on 2L NC. Unclear etiology- pt does report several weeks of URI symptoms which could point to viral pericarditis but degree of effusion is less consistent with viral etiology. Malignancy is a possibility as well. CT chest from OSH report does not mention lung mass (images not sent). Pt has not history of rheumatic disease. CRP is highly elevated. Plan: -CTM closely for signs of cardiac tamponade -Bedside echo without signs of tamponade physiology -Formal echo -Likely pericardiocentesis in AM- send routine labs and cytology -Consider thoracentesis of right pleural effusion -Bolus IVF as needed for hypotension to maintain RV volume documented as of this encounter (statuses as of 01/10/2023) [facility] [place]11-26-2020 History of Past illness Narrative* Problem Noted Date Resolved Date POLY (acute kidney injury) 08/24/20202019 Overview: Baseline Cr 1.7. Cr today 2.2. Likely prerenal possibly CRS. Plan: -Urine studies -Trend Cr -IVF as needed Acute liver disease 08/24/2020 09/01/2020 Overview: LFTs elevating rapidly from 500s today to 1000s tonight. Possible etiology may be ischemia from poor forward flow in setting of pericardial effusion vs hepatic congestion from effusion (more likely). INR 1.2, albumin 4.0. No AMS or abdominal pain. Pt with normal liver labs at baseline Plan: -Tremd LFTs -Treat pericardial effusion -Tylenol level -Acute and remote hepatitis panels Pericardial effusion 08/23/2020 09/01/2020 Overview: Pt with new onset moderate to large pericardial effusion in setting of recent severe fatigue and MCGOVERN. Concern for hypotension on RNF and development of tamponade which prompted transfer to CICU. Pt is warm on exam and had mild lactate of 2.3 which improved with IVF. Does have bilateral pleural effusions on CXR L>R but is satting well on 2L NC. Unclear etiology- pt does report several weeks of URI symptoms which could point to viral pericarditis but degree of effusion is less consistent with viral etiology. Malignancy is a possibility as well. CT chest from OSH report does not mention lung mass (images not sent). Pt has not history of rheumatic disease. CRP is highly elevated. Plan: -CTM closely for signs of cardiac tamponade -Bedside echo without signs of tamponade physiology -Formal echo -Likely pericardiocentesis in AM- send routine labs and cytology -Consider thoracentesis of right pleural effusion -Bolus IVF as needed for hypotension to maintain RV volume documented as of this encounter (statuses as of 01/24/2023) [facility] [place]11-26-2020 History of Past illness Narrative* Problem Noted Date Resolved Date POLY (acute kidney injury) 08/24/20202019 Overview: Baseline Cr 1.7. Cr today 2.2. Likely prerenal possibly CRS. Plan: -Urine studies -Trend Cr -IVF as needed Acute liver disease 08/24/2020 09/01/2020 Overview: LFTs elevating rapidly from 500s today to 1000s tonight. Possible etiology may be ischemia from poor forward flow in setting of pericardial effusion vs hepatic congestion from effusion (more likely). INR 1.2, albumin 4.0. No AMS or abdominal pain. Pt with normal liver labs at baseline Plan: -Tremd LFTs -Treat pericardial effusion -Tylenol level -Acute and remote hepatitis panels Pericardial effusion 08/23/2020 09/01/2020 Overview: Pt with new onset moderate to large pericardial effusion in setting of recent severe fatigue and MCGOVERN. Concern for hypotension on RNF and development of tamponade which prompted transfer to CICU. Pt is warm on exam and had mild lactate of 2.3 which improved with IVF. Does have bilateral pleural effusions on CXR L>R but is satting well on 2L NC. Unclear etiology- pt does report several weeks of URI symptoms which could point to viral pericarditis but degree of effusion is less consistent with viral etiology. Malignancy is a possibility as well. CT chest from OSH report does not mention lung mass (images not sent). Pt has not history of rheumatic disease. CRP is highly elevated. Plan: -CTM closely for signs of cardiac tamponade -Bedside echo without signs of tamponade physiology -Formal echo -Likely pericardiocentesis in AM- send routine labs and cytology -Consider thoracentesis of right pleural effusion -Bolus IVF as needed for hypotension to maintain RV volume documented as of this encounter (statuses as of 01/30/2023) [facility] [place]11-26-2020 History of Past illness Narrative* Problem Noted Date Resolved Date POLY (acute kidney injury) 08/24/20202019 Overview: Baseline Cr 1.7. Cr today 2.2. Likely prerenal possibly CRS. Plan: -Urine studies -Trend Cr -IVF as needed Acute liver disease 08/24/2020 09/01/2020 Overview: LFTs elevating rapidly from 500s today to 1000s tonight. Possible etiology may be ischemia from poor forward flow in setting of pericardial effusion vs hepatic congestion from effusion (more likely). INR 1.2, albumin 4.0. No AMS or abdominal pain. Pt with normal liver labs at baseline Plan: -Tremd LFTs -Treat pericardial effusion -Tylenol level -Acute and remote hepatitis panels Pericardial effusion 08/23/2020 09/01/2020 Overview: Pt with new onset moderate to large pericardial effusion in setting of recent severe fatigue and MCGOVERN. Concern for hypotension on RNF and development of tamponade which prompted transfer to CICU. Pt is warm on exam and had mild lactate of 2.3 which improved with IVF. Does have bilateral pleural effusions on CXR L>R but is satting well on 2L NC. Unclear etiology- pt does report several weeks of URI symptoms which could point to viral pericarditis but degree of effusion is less consistent with viral etiology. Malignancy is a possibility as well. CT chest from OSH report does not mention lung mass (images not sent). Pt has not history of rheumatic disease. CRP is highly elevated. Plan: -CTM closely for signs of cardiac tamponade -Bedside echo without signs of tamponade physiology -Formal echo -Likely pericardiocentesis in AM- send routine labs and cytology -Consider thoracentesis of right pleural effusion -Bolus IVF as needed for hypotension to maintain RV volume documented as of this encounter (statuses as of 02/04/2023) [facility] [place]11-26-2020 History of Past illness Narrative* Problem Noted Date Resolved Date POLY (acute kidney injury) 08/24/20202019 Overview: Baseline Cr 1.7. Cr today 2.2. Likely prerenal possibly CRS. Plan: -Urine studies -Trend Cr -IVF as needed Acute liver disease 08/24/2020 09/01/2020 Overview: LFTs elevating rapidly from 500s today to 1000s tonight. Possible etiology may be ischemia from poor forward flow in setting of pericardial effusion vs hepatic congestion from effusion (more likely). INR 1.2, albumin 4.0. No AMS or abdominal pain. Pt with normal liver labs at baseline Plan: -Tremd LFTs -Treat pericardial effusion -Tylenol level -Acute and remote hepatitis panels Pericardial effusion 08/23/2020 09/01/2020 Overview: Pt with new onset moderate to large pericardial effusion in setting of recent severe fatigue and MCGOVERN. Concern for hypotension on RNF and development of tamponade which prompted transfer to CICU. Pt is warm on exam and had mild lactate of 2.3 which improved with IVF. Does have bilateral pleural effusions on CXR L>R but is satting well on 2L NC. Unclear etiology- pt does report several weeks of URI symptoms which could point to viral pericarditis but degree of effusion is less consistent with viral etiology. Malignancy is a possibility as well. CT chest from OSH report does not mention lung mass (images not sent). Pt has not history of rheumatic disease. CRP is highly elevated. Plan: -CTM closely for signs of cardiac tamponade -Bedside echo without signs of tamponade physiology -Formal echo -Likely pericardiocentesis in AM- send routine labs and cytology -Consider thoracentesis of right pleural effusion -Bolus IVF as needed for hypotension to maintain RV volume documented as of this encounter (statuses as of 02/04/2023) [facility] [place]11-26-2020 History of Past illness Narrative* Problem Noted Date Resolved Date POLY (acute kidney injury) 08/24/20202019 Overview: Baseline Cr 1.7. Cr today 2.2. Likely prerenal possibly CRS. Plan: -Urine studies -Trend Cr -IVF as needed Acute liver disease 08/24/2020 09/01/2020 Overview: LFTs elevating rapidly from 500s today to 1000s tonight. Possible etiology may be ischemia from poor forward flow in setting of pericardial effusion vs hepatic congestion from effusion (more likely). INR 1.2, albumin 4.0. No AMS or abdominal pain. Pt with normal liver labs at baseline Plan: -Tremd LFTs -Treat pericardial effusion -Tylenol level -Acute and remote hepatitis panels Pericardial effusion 08/23/2020 09/01/2020 Overview: Pt with new onset moderate to large pericardial effusion in setting of recent severe fatigue and MCGOVERN. Concern for hypotension on RNF and development of tamponade which prompted transfer to CICU. Pt is warm on exam and had mild lactate of 2.3 which improved with IVF. Does have bilateral pleural effusions on CXR L>R but is satting well on 2L NC. Unclear etiology- pt does report several weeks of URI symptoms which could point to viral pericarditis but degree of effusion is less consistent with viral etiology. Malignancy is a possibility as well. CT chest from OSH report does not mention lung mass (images not sent). Pt has not history of rheumatic disease. CRP is highly elevated. Plan: -CTM closely for signs of cardiac tamponade -Bedside echo without signs of tamponade physiology -Formal echo -Likely pericardiocentesis in AM- send routine labs and cytology -Consider thoracentesis of right pleural effusion -Bolus IVF as needed for hypotension to maintain RV volume documented as of this encounter (statuses as of 02/05/2023) [facility] [place]11-26-2020 History of Past illness Narrative* Problem Noted Date Resolved Date POLY (acute kidney injury) 08/24/20202019 Overview: Baseline Cr 1.7. Cr today 2.2. Likely prerenal possibly CRS. Plan: -Urine studies -Trend Cr -IVF as needed Acute liver disease 08/24/2020 09/01/2020 Overview: LFTs elevating rapidly from 500s today to 1000s tonight. Possible etiology may be ischemia from poor forward flow in setting of pericardial effusion vs hepatic congestion from effusion (more likely). INR 1.2, albumin 4.0. No AMS or abdominal pain. Pt with normal liver labs at baseline Plan: -Tremd LFTs -Treat pericardial effusion -Tylenol level -Acute and remote hepatitis panels Pericardial effusion 08/23/2020 09/01/2020 Overview: Pt with new onset moderate to large pericardial effusion in setting of recent severe fatigue and MCGOVERN. Concern for hypotension on RNF and development of tamponade which prompted transfer to CICU. Pt is warm on exam and had mild lactate of 2.3 which improved with IVF. Does have bilateral pleural effusions on CXR L>R but is satting well on 2L NC. Unclear etiology- pt does report several weeks of URI symptoms which could point to viral pericarditis but degree of effusion is less consistent with viral etiology. Malignancy is a possibility as well. CT chest from OSH report does not mention lung mass (images not sent). Pt has not history of rheumatic disease. CRP is highly elevated. Plan: -CTM closely for signs of cardiac tamponade -Bedside echo without signs of tamponade physiology -Formal echo -Likely pericardiocentesis in AM- send routine labs and cytology -Consider thoracentesis of right pleural effusion -Bolus IVF as needed for hypotension to maintain RV volume documented as of this encounter (statuses as of 02/06/2023) [facility] [place]11-26-2020 History of Past illness Narrative* Problem Noted Date Resolved Date POLY (acute kidney injury) 08/24/20202019 Overview: Baseline Cr 1.7. Cr today 2.2. Likely prerenal possibly CRS. Plan: -Urine studies -Trend Cr -IVF as needed Acute liver disease 08/24/2020 09/01/2020 Overview: LFTs elevating rapidly from 500s today to 1000s tonight. Possible etiology may be ischemia from poor forward flow in setting of pericardial effusion vs hepatic congestion from effusion (more likely). INR 1.2, albumin 4.0. No AMS or abdominal pain. Pt with normal liver labs at baseline Plan: -Tremd LFTs -Treat pericardial effusion -Tylenol level -Acute and remote hepatitis panels Pericardial effusion 08/23/2020 09/01/2020 Overview: Pt with new onset moderate to large pericardial effusion in setting of recent severe fatigue and MCGOVERN. Concern for hypotension on RNF and development of tamponade which prompted transfer to CICU. Pt is warm on exam and had mild lactate of 2.3 which improved with IVF. Does have bilateral pleural effusions on CXR L>R but is satting well on 2L NC. Unclear etiology- pt does report several weeks of URI symptoms which could point to viral pericarditis but degree of effusion is less consistent with viral etiology. Malignancy is a possibility as well. CT chest from OSH report does not mention lung mass (images not sent). Pt has not history of rheumatic disease. CRP is highly elevated. Plan: -CTM closely for signs of cardiac tamponade -Bedside echo without signs of tamponade physiology -Formal echo -Likely pericardiocentesis in AM- send routine labs and cytology -Consider thoracentesis of right pleural effusion -Bolus IVF as needed for hypotension to maintain RV volume documented as of this encounter (statuses as of 02/07/2023) [facility] [place]11-26-2020 History of Past illness Narrative* Problem Noted Date Resolved Date POLY (acute kidney injury) 08/24/20202019 Overview: Baseline Cr 1.7. Cr today 2.2. Likely prerenal possibly CRS. Plan: -Urine studies -Trend Cr -IVF as needed Acute liver disease 08/24/2020 09/01/2020 Overview: LFTs elevating rapidly from 500s today to 1000s tonight. Possible etiology may be ischemia from poor forward flow in setting of pericardial effusion vs hepatic congestion from effusion (more likely). INR 1.2, albumin 4.0. No AMS or abdominal pain. Pt with normal liver labs at baseline Plan: -Tremd LFTs -Treat pericardial effusion -Tylenol level -Acute and remote hepatitis panels Pericardial effusion 08/23/2020 09/01/2020 Overview: Pt with new onset moderate to large pericardial effusion in setting of recent severe fatigue and MCGOVERN. Concern for hypotension on RNF and development of tamponade which prompted transfer to CICU. Pt is warm on exam and had mild lactate of 2.3 which improved with IVF. Does have bilateral pleural effusions on CXR L>R but is satting well on 2L NC. Unclear etiology- pt does report several weeks of URI symptoms which could point to viral pericarditis but degree of effusion is less consistent with viral etiology. Malignancy is a possibility as well. CT chest from OSH report does not mention lung mass (images not sent). Pt has not history of rheumatic disease. CRP is highly elevated. Plan: -CTM closely for signs of cardiac tamponade -Bedside echo without signs of tamponade physiology -Formal echo -Likely pericardiocentesis in AM- send routine labs and cytology -Consider thoracentesis of right pleural effusion -Bolus IVF as needed for hypotension to maintain RV volume documented as of this encounter (statuses as of 03/21/2023) [facility] [place]11-26-2020 History of Past illness Narrative* Problem Noted Date Resolved Date POLY (acute kidney injury) 08/24/20202019 Overview: Baseline Cr 1.7. Cr today 2.2. Likely prerenal possibly CRS. Plan: -Urine studies -Trend Cr -IVF as needed Acute liver disease 08/24/2020 09/01/2020 Overview: LFTs elevating rapidly from 500s today to 1000s tonight. Possible etiology may be ischemia from poor forward flow in setting of pericardial effusion vs hepatic congestion from effusion (more likely). INR 1.2, albumin 4.0. No AMS or abdominal pain. Pt with normal liver labs at baseline Plan: -Tremd LFTs -Treat pericardial effusion -Tylenol level -Acute and remote hepatitis panels Pericardial effusion 08/23/2020 09/01/2020 Overview: Pt with new onset moderate to large pericardial effusion in setting of recent severe fatigue and MCGOVERN. Concern for hypotension on RNF and development of tamponade which prompted transfer to CICU. Pt is warm on exam and had mild lactate of 2.3 which improved with IVF. Does have bilateral pleural effusions on CXR L>R but is satting well on 2L NC. Unclear etiology- pt does report several weeks of URI symptoms which could point to viral pericarditis but degree of effusion is less consistent with viral etiology. Malignancy is a possibility as well. CT chest from OSH report does not mention lung mass (images not sent). Pt has not history of rheumatic disease. CRP is highly elevated. Plan: -CTM closely for signs of cardiac tamponade -Bedside echo without signs of tamponade physiology -Formal echo -Likely pericardiocentesis in AM- send routine labs and cytology -Consider thoracentesis of right pleural effusion -Bolus IVF as needed for hypotension to maintain RV volume documented as of this encounter (statuses as of 04/02/2023) [facility] [place]11-26-2020 History of Past illness Narrative* Problem Noted Date Diagnosed Date Resolved Date POLY (acute kidney injury) 08/24/2020 Overview: Baseline Cr 1.7. Cr today 2.2. Likely prerenal possibly CRS. Plan: -Urine studies -Trend Cr -IVF as needed Acute liver disease 08/24/2020 09/01/20 20 Overview: LFTs elevating rapidly from 500s today to 1000s tonight. Possible etiology may be ischemia from poor forward flow in setting of pericardial effusion vs hepatic congestion from effusion (more likely). INR 1.2, albumin 4.0. No AMS or abdominal pain. Pt with normal liver labs at baseline Plan: -Tremd LFTs -Treat pericardial effusion -Tylenol level -Acute and remote hepatitis panels Pericardial effusion 08/23/2020 020 Overview: Pt with new onset moderate to large pericardial effusion in setting of recent severe fatigue and MCGOVERN. Concern for hypotension on RNF and development of tamponade which prompted transfer to CICU. Pt is warm on exam and had mild lactate of 2.3 which improved with IVF. Does have bilateral pleural effusions on CXR L>R but is satting well on 2L NC. Unclear etiology- pt does report several weeks of URI symptoms which could point to viral pericarditis but degree of effusion is less consistent with viral etiology. Malignancy is a possibility as well. CT chest from OSH report does not mention lung mass (images not sent). Pt has not history of rheumatic disease. CRP is highly elevated. Plan: -CTM closely for signs of cardiac tamponade -Bedside echo without signs of tamponade physiology -Formal echo -Likely pericardiocentesis in AM- send routine labs and cytology -Consider thoracentesis of right pleural effusion -Bolus IVF as needed for hypotension to maintain RV volume documented as of this encounter (statuses as of 05/15/2023) [facility] [place]11-26-2020 History of Past illness Narrative* Problem Noted Date Diagnosed Date Resolved Date POLY (acute kidney injury) 08/24/2020 Overview: Baseline Cr 1.7. Cr today 2.2. Likely prerenal possibly CRS. Plan: -Urine studies -Trend Cr -IVF as needed Acute liver disease 08/24/2020 09/01/20 20 Overview: LFTs elevating rapidly from 500s today to 1000s tonight. Possible etiology may be ischemia from poor forward flow in setting of pericardial effusion vs hepatic congestion from effusion (more likely). INR 1.2, albumin 4.0. No AMS or abdominal pain. Pt with normal liver labs at baseline Plan: -Tremd LFTs -Treat pericardial effusion -Tylenol level -Acute and remote hepatitis panels Pericardial effusion 08/23/2020 020 Overview: Pt with new onset moderate to large pericardial effusion in setting of recent severe fatigue and MCGOVERN. Concern for hypotension on RNF and development of tamponade which prompted transfer to CICU. Pt is warm on exam and had mild lactate of 2.3 which improved with IVF. Does have bilateral pleural effusions on CXR L>R but is satting well on 2L NC. Unclear etiology- pt does report several weeks of URI symptoms which could point to viral pericarditis but degree of effusion is less consistent with viral etiology. Malignancy is a possibility as well. CT chest from OSH report does not mention lung mass (images not sent). Pt has not history of rheumatic disease. CRP is highly elevated. Plan: -CTM closely for signs of cardiac tamponade -Bedside echo without signs of tamponade physiology -Formal echo -Likely pericardiocentesis in AM- send routine labs and cytology -Consider thoracentesis of right pleural effusion -Bolus IVF as needed for hypotension to maintain RV volume documented as of this encounter (statuses as of 05/16/2023) [facility] [place]11-26-2020 History of Past illness Narrative* Problem Noted Date Diagnosed Date Resolved Date POLY (acute kidney injury) 08/24/2020 Overview: Baseline Cr 1.7. Cr today 2.2. Likely prerenal possibly CRS. Plan: -Urine studies -Trend Cr -IVF as needed Acute liver disease 08/24/2020 09/01/20 20 Overview: LFTs elevating rapidly from 500s today to 1000s tonight. Possible etiology may be ischemia from poor forward flow in setting of pericardial effusion vs hepatic congestion from effusion (more likely). INR 1.2, albumin 4.0. No AMS or abdominal pain. Pt with normal liver labs at baseline Plan: -Tremd LFTs -Treat pericardial effusion -Tylenol level -Acute and remote hepatitis panels Pericardial effusion 08/23/2020 020 Overview: Pt with new onset moderate to large pericardial effusion in setting of recent severe fatigue and MCGOVERN. Concern for hypotension on RNF and development of tamponade which prompted transfer to CICU. Pt is warm on exam and had mild lactate of 2.3 which improved with IVF. Does have bilateral pleural effusions on CXR L>R but is satting well on 2L NC. Unclear etiology- pt does report several weeks of URI symptoms which could point to viral pericarditis but degree of effusion is less consistent with viral etiology. Malignancy is a possibility as well. CT chest from OSH report does not mention lung mass (images not sent). Pt has not history of rheumatic disease. CRP is highly elevated. Plan: -CTM closely for signs of cardiac tamponade -Bedside echo without signs of tamponade physiology -Formal echo -Likely pericardiocentesis in AM- send routine labs and cytology -Consider thoracentesis of right pleural effusion -Bolus IVF as needed for hypotension to maintain RV volume documented as of this encounter (statuses as of 06/10/2023) [facility] [place]11-26-2020 History of Past illness Narrative* Problem Noted Date Diagnosed Date Resolved Date POLY (acute kidney injury) 08/24/2020 Overview: Baseline Cr 1.7. Cr today 2.2. Likely prerenal possibly CRS. Plan: -Urine studies -Trend Cr -IVF as needed Acute liver disease 08/24/2020 09/01/20 20 Overview: LFTs elevating rapidly from 500s today to 1000s tonight. Possible etiology may be ischemia from poor forward flow in setting of pericardial effusion vs hepatic congestion from effusion (more likely). INR 1.2, albumin 4.0. No AMS or abdominal pain. Pt with normal liver labs at baseline Plan: -Tremd LFTs -Treat pericardial effusion -Tylenol level -Acute and remote hepatitis panels Pericardial effusion 08/23/2020 020 Overview: Pt with new onset moderate to large pericardial effusion in setting of recent severe fatigue and MCGOVERN. Concern for hypotension on RNF and development of tamponade which prompted transfer to CICU. Pt is warm on exam and had mild lactate of 2.3 which improved with IVF. Does have bilateral pleural effusions on CXR L>R but is satting well on 2L NC. Unclear etiology- pt does report several weeks of URI symptoms which could point to viral pericarditis but degree of effusion is less consistent with viral etiology. Malignancy is a possibility as well. CT chest from OSH report does not mention lung mass (images not sent). Pt has not history of rheumatic disease. CRP is highly elevated. Plan: -CTM closely for signs of cardiac tamponade -Bedside echo without signs of tamponade physiology -Formal echo -Likely pericardiocentesis in AM- send routine labs and cytology -Consider thoracentesis of right pleural effusion -Bolus IVF as needed for hypotension to maintain RV volume documented as of this encounter (statuses as of 06/10/2023) [facility] [place]11-26-2020 History of Past illness Narrative* Problem Noted Date Diagnosed Date Resolved Date POLY (acute kidney injury) 08/24/2020 Overview: Baseline Cr 1.7. Cr today 2.2. Likely prerenal possibly CRS. Plan: -Urine studies -Trend Cr -IVF as needed Acute liver disease 08/24/2020 09/01/20 20 Overview: LFTs elevating rapidly from 500s today to 1000s tonight. Possible etiology may be ischemia from poor forward flow in setting of pericardial effusion vs hepatic congestion from effusion (more likely). INR 1.2, albumin 4.0. No AMS or abdominal pain. Pt with normal liver labs at baseline Plan: -Tremd LFTs -Treat pericardial effusion -Tylenol level -Acute and remote hepatitis panels Pericardial effusion 08/23/2020 020 Overview: Pt with new onset moderate to large pericardial effusion in setting of recent severe fatigue and MCGOVERN. Concern for hypotension on RNF and development of tamponade which prompted transfer to CICU. Pt is warm on exam and had mild lactate of 2.3 which improved with IVF. Does have bilateral pleural effusions on CXR L>R but is satting well on 2L NC. Unclear etiology- pt does report several weeks of URI symptoms which could point to viral pericarditis but degree of effusion is less consistent with viral etiology. Malignancy is a possibility as well. CT chest from OSH report does not mention lung mass (images not sent). Pt has not history of rheumatic disease. CRP is highly elevated. Plan: -CTM closely for signs of cardiac tamponade -Bedside echo without signs of tamponade physiology -Formal echo -Likely pericardiocentesis in AM- send routine labs and cytology -Consider thoracentesis of right pleural effusion -Bolus IVF as needed for hypotension to maintain RV volume documented as of this encounter (statuses as of 06/17/2023) [facility] [place]11-26-2020 History of Past illness Narrative* Problem Noted Date Diagnosed Date Resolved Date POLY (acute kidney injury) 08/24/2020 Overview: Baseline Cr 1.7. Cr today 2.2. Likely prerenal possibly CRS. Plan: -Urine studies -Trend Cr -IVF as needed Acute liver disease 08/24/2020 09/01/20 20 Overview: LFTs elevating rapidly from 500s today to 1000s tonight. Possible etiology may be ischemia from poor forward flow in setting of pericardial effusion vs hepatic congestion from effusion (more likely). INR 1.2, albumin 4.0. No AMS or abdominal pain. Pt with normal liver labs at baseline Plan: -Tremd LFTs -Treat pericardial effusion -Tylenol level -Acute and remote hepatitis panels Pericardial effusion 08/23/2020 020 Overview: Pt with new onset moderate to large pericardial effusion in setting of recent severe fatigue and MCGOVERN. Concern for hypotension on RNF and development of tamponade which prompted transfer to CICU. Pt is warm on exam and had mild lactate of 2.3 which improved with IVF. Does have bilateral pleural effusions on CXR L>R but is satting well on 2L NC. Unclear etiology- pt does report several weeks of URI symptoms which could point to viral pericarditis but degree of effusion is less consistent with viral etiology. Malignancy is a possibility as well. CT chest from OSH report does not mention lung mass (images not sent). Pt has not history of rheumatic disease. CRP is highly elevated. Plan: -CTM closely for signs of cardiac tamponade -Bedside echo without signs of tamponade physiology -Formal echo -Likely pericardiocentesis in AM- send routine labs and cytology -Consider thoracentesis of right pleural effusion -Bolus IVF as needed for hypotension to maintain RV volume documented as of this encounter (statuses as of 06/18/2023) [facility] [place]11-26-2020 History of Past illness Narrative* Problem Noted Date Diagnosed Date Resolved Date POLY (acute kidney injury) 08/24/2020 Overview: Baseline Cr 1.7. Cr today 2.2. Likely prerenal possibly CRS. Plan: -Urine studies -Trend Cr -IVF as needed Acute liver disease 08/24/2020 09/01/20 20 Overview: LFTs elevating rapidly from 500s today to 1000s tonight. Possible etiology may be ischemia from poor forward flow in setting of pericardial effusion vs hepatic congestion from effusion (more likely). INR 1.2, albumin 4.0. No AMS or abdominal pain. Pt with normal liver labs at baseline Plan: -Tremd LFTs -Treat pericardial effusion -Tylenol level -Acute and remote hepatitis panels Pericardial effusion 08/23/2020 Overview: Pt with new onset moderate to large pericardial effusion in setting of recent severe fatigue and MCGOVERN. Concern for hypotension on RNF and development of tamponade which prompted transfer to CICU. Pt is warm on exam and had mild lactate of 2.3 which improved with IVF. Does have bilateral pleural effusions on CXR L>R but is satting well on 2L NC. Unclear etiology- pt does report several weeks of URI symptoms which could point to viral pericarditis but degree of effusion is less consistent with viral etiology. Malignancy is a possibility as well. CT chest from OSH report does not mention lung mass (images not sent). Pt has not history of rheumatic disease. CRP is highly elevated. Plan: -CTM closely for signs of cardiac tamponade -Bedside echo without signs of tamponade physiology -Formal echo -Likely pericardiocentesis in AM- send routine labs and cytology -Consider thoracentesis of right pleural effusion -Bolus IVF as needed for hypotension to maintain RV volume documented as of this encounter (statuses as of 06/19/2023) [facility] [place]11-26-2020 History of Past illness Narrative* Problem Noted Date Diagnosed Date Resolved Date POLY (acute kidney injury) 08/24/2020 Overview: Baseline Cr 1.7. Cr today 2.2. Likely prerenal possibly CRS. Plan: -Urine studies -Trend Cr -IVF as needed Acute liver disease 08/24/2020 09/01/20 20 Overview: LFTs elevating rapidly from 500s today to 1000s tonight. Possible etiology may be ischemia from poor forward flow in setting of pericardial effusion vs hepatic congestion from effusion (more likely). INR 1.2, albumin 4.0. No AMS or abdominal pain. Pt with normal liver labs at baseline Plan: -Tremd LFTs -Treat pericardial effusion -Tylenol level -Acute and remote hepatitis panels Pericardial effusion 08/23/2020 12/04/2 020 Overview: Pt with new onset moderate to large pericardial effusion in setting of recent severe fatigue and MCGOVERN. Concern for hypotension on RNF and development of tamponade which prompted transfer to CICU. Pt is warm on exam and had mild lactate of 2.3 which improved with IVF. Does have bilateral pleural effusions on CXR L>R but is satting well on 2L NC. Unclear etiology- pt does report several weeks of URI symptoms which could point to viral pericarditis but degree of effusion is less consistent with viral etiology. Malignancy is a possibility as well. CT chest from OSH report does not mention lung mass (images not sent). Pt has not history of rheumatic disease. CRP is highly elevated. Plan: -CTM closely for signs of cardiac tamponade -Bedside echo without signs of tamponade physiology -Formal echo -Likely pericardiocentesis in AM- send routine labs and cytology -Consider thoracentesis of right pleural effusion -Bolus IVF as needed for hypotension to maintain RV volume documented as of this encounter (statuses as of 06/25/2023) [facility] [place]11-26-2020 History of Past illness Narrative* Problem Noted Date Diagnosed Date Resolved Date POLY (acute kidney injury) 08/24/2020 Overview: Baseline Cr 1.7. Cr today 2.2. Likely prerenal possibly CRS. Plan: -Urine studies -Trend Cr -IVF as needed Acute liver disease 08/24/2020 09/01/20 20 Overview: LFTs elevating rapidly from 500s today to 1000s tonight. Possible etiology may be ischemia from poor forward flow in setting of pericardial effusion vs hepatic congestion from effusion (more likely). INR 1.2, albumin 4.0. No AMS or abdominal pain. Pt with normal liver labs at baseline Plan: -Tremd LFTs -Treat pericardial effusion -Tylenol level -Acute and remote hepatitis panels Pericardial effusion 08/23/2020 020 Overview: Pt with new onset moderate to large pericardial effusion in setting of recent severe fatigue and MCGOVERN. Concern for hypotension on RNF and development of tamponade which prompted transfer to CICU. Pt is warm on exam and had mild lactate of 2.3 which improved with IVF. Does have bilateral pleural effusions on CXR L>R but is satting well on 2L NC. Unclear etiology- pt does report several weeks of URI symptoms which could point to viral pericarditis but degree of effusion is less consistent with viral etiology. Malignancy is a possibility as well. CT chest from OSH report does not mention lung mass (images not sent). Pt has not history of rheumatic disease. CRP is highly elevated. Plan: -CTM closely for signs of cardiac tamponade -Bedside echo without signs of tamponade physiology -Formal echo -Likely pericardiocentesis in AM- send routine labs and cytology -Consider thoracentesis of right pleural effusion -Bolus IVF as needed for hypotension to maintain RV volume documented as of this encounter (statuses as of 07/05/2023) [facility] [place]11-26-2020 History of Past illness Narrative* Problem Noted Date Diagnosed Date Resolved Date POLY (acute kidney injury) 08/24/2020 Overview: Baseline Cr 1.7. Cr today 2.2. Likely prerenal possibly CRS. Plan: -Urine studies -Trend Cr -IVF as needed Acute liver disease 08/24/2020 09/01/20 20 Overview: LFTs elevating rapidly from 500s today to 1000s tonight. Possible etiology may be ischemia from poor forward flow in setting of pericardial effusion vs hepatic congestion from effusion (more likely). INR 1.2, albumin 4.0. No AMS or abdominal pain. Pt with normal liver labs at baseline Plan: -Tremd LFTs -Treat pericardial effusion -Tylenol level -Acute and remote hepatitis panels Pericardial effusion 08/23/2020 020 Overview: Pt with new onset moderate to large pericardial effusion in setting of recent severe fatigue and MCGOVERN. Concern for hypotension on RNF and development of tamponade which prompted transfer to CICU. Pt is warm on exam and had mild lactate of 2.3 which improved with IVF. Does have bilateral pleural effusions on CXR L>R but is satting well on 2L NC. Unclear etiology- pt does report several weeks of URI symptoms which could point to viral pericarditis but degree of effusion is less consistent with viral etiology. Malignancy is a possibility as well. CT chest from OSH report does not mention lung mass (images not sent). Pt has not history of rheumatic disease. CRP is highly elevated. Plan: -CTM closely for signs of cardiac tamponade -Bedside echo without signs of tamponade physiology -Formal echo -Likely pericardiocentesis in AM- send routine labs and cytology -Consider thoracentesis of right pleural effusion -Bolus IVF as needed for hypotension to maintain RV volume documented as of this encounter (statuses as of 07/25/2023) [facility] [place]11-26-2020 History of Past illness Narrative* Problem Noted Date Diagnosed Date Resolved Date POLY (acute kidney injury) 08/24/2020 Overview: Baseline Cr 1.7. Cr today 2.2. Likely prerenal possibly CRS. Plan: -Urine studies -Trend Cr -IVF as needed Acute liver disease 08/24/2020 09/01/20 20 Overview: LFTs elevating rapidly from 500s today to 1000s tonight. Possible etiology may be ischemia from poor forward flow in setting of pericardial effusion vs hepatic congestion from effusion (more likely). INR 1.2, albumin 4.0. No AMS or abdominal pain. Pt with normal liver labs at baseline Plan: -Tremd LFTs -Treat pericardial effusion -Tylenol level -Acute and remote hepatitis panels Pericardial effusion 08/23/2020 020 Overview: Pt with new onset moderate to large pericardial effusion in setting of recent severe fatigue and MCGOVERN. Concern for hypotension on RNF and development of tamponade which prompted transfer to CICU. Pt is warm on exam and had mild lactate of 2.3 which improved with IVF. Does have bilateral pleural effusions on CXR L>R but is satting well on 2L NC. Unclear etiology- pt does report several weeks of URI symptoms which could point to viral pericarditis but degree of effusion is less consistent with viral etiology. Malignancy is a possibility as well. CT chest from OSH report does not mention lung mass (images not sent). Pt has not history of rheumatic disease. CRP is highly elevated. Plan: -CTM closely for signs of cardiac tamponade -Bedside echo without signs of tamponade physiology -Formal echo -Likely pericardiocentesis in AM- send routine labs and cytology -Consider thoracentesis of right pleural effusion -Bolus IVF as needed for hypotension to maintain RV volume documented as of this encounter (statuses as of 08/19/2023) [facility] [place]11-26-2020 History of Past illness Narrative* Problem Noted Date Diagnosed Date Resolved Date POLY (acute kidney injury) 08/24/2020 Overview: Baseline Cr 1.7. Cr today 2.2. Likely prerenal possibly CRS. Plan: -Urine studies -Trend Cr -IVF as needed Acute liver disease 08/24/2020 09/01/20 20 Overview: LFTs elevating rapidly from 500s today to 1000s tonight. Possible etiology may be ischemia from poor forward flow in setting of pericardial effusion vs hepatic congestion from effusion (more likely). INR 1.2, albumin 4.0. No AMS or abdominal pain. Pt with normal liver labs at baseline Plan: -Tremd LFTs -Treat pericardial effusion -Tylenol level -Acute and remote hepatitis panels Pericardial effusion 08/23/2020 020 Overview: Pt with new onset moderate to large pericardial effusion in setting of recent severe fatigue and MCGOVERN. Concern for hypotension on RNF and development of tamponade which prompted transfer to CICU. Pt is warm on exam and had mild lactate of 2.3 which improved with IVF. Does have bilateral pleural effusions on CXR L>R but is satting well on 2L NC. Unclear etiology- pt does report several weeks of URI symptoms which could point to viral pericarditis but degree of effusion is less consistent with viral etiology. Malignancy is a possibility as well. CT chest from OSH report does not mention lung mass (images not sent). Pt has not history of rheumatic disease. CRP is highly elevated. Plan: -CTM closely for signs of cardiac tamponade -Bedside echo without signs of tamponade physiology -Formal echo -Likely pericardiocentesis in AM- send routine labs and cytology -Consider thoracentesis of right pleural effusion -Bolus IVF as needed for hypotension to maintain RV volume documented as of this encounter (statuses as of 11/04/2023) [facility] [place]11-26-2020 History of Past illness Narrative* Problem Noted Date Diagnosed Date Resolved Date POLY (acute kidney injury) 08/24/2020 Overview: Baseline Cr 1.7. Cr today 2.2. Likely prerenal possibly CRS. Plan: -Urine studies -Trend Cr -IVF as needed Acute liver disease 08/24/2020 09/01/20 20 Overview: LFTs elevating rapidly from 500s today to 1000s tonight. Possible etiology may be ischemia from poor forward flow in setting of pericardial effusion vs hepatic congestion from effusion (more likely). INR 1.2, albumin 4.0. No AMS or abdominal pain. Pt with normal liver labs at baseline Plan: -Tremd LFTs -Treat pericardial effusion -Tylenol level -Acute and remote hepatitis panels Pericardial effusion 08/23/2020 020 Overview: Pt with new onset moderate to large pericardial effusion in setting of recent severe fatigue and MCGOVERN. Concern for hypotension on RNF and development of tamponade which prompted transfer to CICU. Pt is warm on exam and had mild lactate of 2.3 which improved with IVF. Does have bilateral pleural effusions on CXR L>R but is satting well on 2L NC. Unclear etiology- pt does report several weeks of URI symptoms which could point to viral pericarditis but degree of effusion is less consistent with viral etiology. Malignancy is a possibility as well. CT chest from OSH report does not mention lung mass (images not sent). Pt has not history of rheumatic disease. CRP is highly elevated. Plan: -CTM closely for signs of cardiac tamponade -Bedside echo without signs of tamponade physiology -Formal echo -Likely pericardiocentesis in AM- send routine labs and cytology -Consider thoracentesis of right pleural effusion -Bolus IVF as needed for hypotension to maintain RV volume documented as of this encounter (statuses as of 11/07/2023) [facility] [place]11-26-2020 History of Past illness Narrative* Problem Noted Date Diagnosed Date Resolved Date POLY (acute kidney injury) 08/24/2020 Overview: Baseline Cr 1.7. Cr today 2.2. Likely prerenal possibly CRS. Plan: -Urine studies -Trend Cr -IVF as needed Acute liver disease 08/24/2020 09/01/20 20 Overview: LFTs elevating rapidly from 500s today to 1000s tonight. Possible etiology may be ischemia from poor forward flow in setting of pericardial effusion vs hepatic congestion from effusion (more likely). INR 1.2, albumin 4.0. No AMS or abdominal pain. Pt with normal liver labs at baseline Plan: -Tremd LFTs -Treat pericardial effusion -Tylenol level -Acute and remote hepatitis panels Pericardial effusion 08/23/2020 020 Overview: Pt with new onset moderate to large pericardial effusion in setting of recent severe fatigue and MCGOVERN. Concern for hypotension on RNF and development of tamponade which prompted transfer to CICU. Pt is warm on exam and had mild lactate of 2.3 which improved with IVF. Does have bilateral pleural effusions on CXR L>R but is satting well on 2L NC. Unclear etiology- pt does report several weeks of URI symptoms which could point to viral pericarditis but degree of effusion is less consistent with viral etiology. Malignancy is a possibility as well. CT chest from OSH report does not mention lung mass (images not sent). Pt has not history of rheumatic disease. CRP is highly elevated. Plan: -CTM closely for signs of cardiac tamponade -Bedside echo without signs of tamponade physiology -Formal echo -Likely pericardiocentesis in AM- send routine labs and cytology -Consider thoracentesis of right pleural effusion -Bolus IVF as needed for hypotension to maintain RV volume documented as of this encounter (statuses as of 11/12/2023) [facility] [place]11-26-2020 History of Past illness Narrative* Problem Noted Date Diagnosed Date Resolved Date POLY (acute kidney injury) 08/24/2020 Overview: Baseline Cr 1.7. Cr today 2.2. Likely prerenal possibly CRS. Plan: -Urine studies -Trend Cr -IVF as needed Acute liver disease 08/24/2020 09/01/20 20 Overview: LFTs elevating rapidly from 500s today to 1000s tonight. Possible etiology may be ischemia from poor forward flow in setting of pericardial effusion vs hepatic congestion from effusion (more likely). INR 1.2, albumin 4.0. No AMS or abdominal pain. Pt with normal liver labs at baseline Plan: -Tremd LFTs -Treat pericardial effusion -Tylenol level -Acute and remote hepatitis panels Pericardial effusion 08/23/2020 020 Overview: Pt with new onset moderate to large pericardial effusion in setting of recent severe fatigue and MCGOVERN. Concern for hypotension on RNF and development of tamponade which prompted transfer to CICU. Pt is warm on exam and had mild lactate of 2.3 which improved with IVF. Does have bilateral pleural effusions on CXR L>R but is satting well on 2L NC. Unclear etiology- pt does report several weeks of URI symptoms which could point to viral pericarditis but degree of effusion is less consistent with viral etiology. Malignancy is a possibility as well. CT chest from OSH report does not mention lung mass (images not sent). Pt has not history of rheumatic disease. CRP is highly elevated. Plan: -CTM closely for signs of cardiac tamponade -Bedside echo without signs of tamponade physiology -Formal echo -Likely pericardiocentesis in AM- send routine labs and cytology -Consider thoracentesis of right pleural effusion -Bolus IVF as needed for hypotension to maintain RV volume documented as of this encounter (statuses as of 11/19/2023) [facility] [place]11-26-2020 History of Past illness Narrative* Problem Noted Date Diagnosed Date Resolved Date POLY (acute kidney injury) 08/24/2020 Overview: Baseline Cr 1.7. Cr today 2.2. Likely prerenal possibly CRS. Plan: -Urine studies -Trend Cr -IVF as needed Acute liver disease 08/24/2020 09/01/20 20 Overview: LFTs elevating rapidly from 500s today to 1000s tonight. Possible etiology may be ischemia from poor forward flow in setting of pericardial effusion vs hepatic congestion from effusion (more likely). INR 1.2, albumin 4.0. No AMS or abdominal pain. Pt with normal liver labs at baseline Plan: -Tremd LFTs -Treat pericardial effusion -Tylenol level -Acute and remote hepatitis panels Pericardial effusion 08/23/2020 Overview: Pt with new onset moderate to large pericardial effusion in setting of recent severe fatigue and MCGOVERN. Concern for hypotension on RNF and development of tamponade which prompted transfer to CICU. Pt is warm on exam and had mild lactate of 2.3 which improved with IVF. Does have bilateral pleural effusions on CXR L>R but is satting well on 2L NC. Unclear etiology- pt does report several weeks of URI symptoms which could point to viral pericarditis but degree of effusion is less consistent with viral etiology. Malignancy is a possibility as well. CT chest from OSH report does not mention lung mass (images not sent). Pt has not history of rheumatic disease. CRP is highly elevated. Plan: -CTM closely for signs of cardiac tamponade -Bedside echo without signs of tamponade physiology -Formal echo -Likely pericardiocentesis in AM- send routine labs and cytology -Consider thoracentesis of right pleural effusion -Bolus IVF as needed for hypotension to maintain RV volume documented as of this encounter (statuses as of 11/19/2023) [facility] [place]11-26-2020 History of Past illness Narrative* Problem Noted Date Diagnosed Date Resolved Date POLY (acute kidney injury) 08/24/2020 Overview: Baseline Cr 1.7. Cr today 2.2. Likely prerenal possibly CRS. Plan: -Urine studies -Trend Cr -IVF as needed Acute liver disease 08/24/2020 09/01/20 20 Overview: LFTs elevating rapidly from 500s today to 1000s tonight. Possible etiology may be ischemia from poor forward flow in setting of pericardial effusion vs hepatic congestion from effusion (more likely). INR 1.2, albumin 4.0. No AMS or abdominal pain. Pt with normal liver labs at baseline Plan: -Tremd LFTs -Treat pericardial effusion -Tylenol level -Acute and remote hepatitis panels Pericardial effusion 08/23/2020 Overview: Pt with new onset moderate to large pericardial effusion in setting of recent severe fatigue and MCGOVERN. Concern for hypotension on RNF and development of tamponade which prompted transfer to CICU. Pt is warm on exam and had mild lactate of 2.3 which improved with IVF. Does have bilateral pleural effusions on CXR L>R but is satting well on 2L NC. Unclear etiology- pt does report several weeks of URI symptoms which could point to viral pericarditis but degree of effusion is less consistent with viral etiology. Malignancy is a possibility as well. CT chest from OSH report does not mention lung mass (images not sent). Pt has not history of rheumatic disease. CRP is highly elevated. Plan: -CTM closely for signs of cardiac tamponade -Bedside echo without signs of tamponade physiology -Formal echo -Likely pericardiocentesis in AM- send routine labs and cytology -Consider thoracentesis of right pleural effusion -Bolus IVF as needed for hypotension to maintain RV volume documented as of this encounter (statuses as of 11/19/2023) [facility] [place]11-26-2020 History of Past illness Narrative* Problem Noted Date Diagnosed Date Resolved Date POLY (acute kidney injury) 08/24/2020 Overview: Baseline Cr 1.7. Cr today 2.2. Likely prerenal possibly CRS. Plan: -Urine studies -Trend Cr -IVF as needed Acute liver disease 08/24/2020 09/01/20 20 Overview: LFTs elevating rapidly from 500s today to 1000s tonight. Possible etiology may be ischemia from poor forward flow in setting of pericardial effusion vs hepatic congestion from effusion (more likely). INR 1.2, albumin 4.0. No AMS or abdominal pain. Pt with normal liver labs at baseline Plan: -Tremd LFTs -Treat pericardial effusion -Tylenol level -Acute and remote hepatitis panels Pericardial effusion 08/23/2020 020 Overview: Pt with new onset moderate to large pericardial effusion in setting of recent severe fatigue and MCGOVERN. Concern for hypotension on RNF and development of tamponade which prompted transfer to CICU. Pt is warm on exam and had mild lactate of 2.3 which improved with IVF. Does have bilateral pleural effusions on CXR L>R but is satting well on 2L NC. Unclear etiology- pt does report several weeks of URI symptoms which could point to viral pericarditis but degree of effusion is less consistent with viral etiology. Malignancy is a possibility as well. CT chest from OSH report does not mention lung mass (images not sent). Pt has not history of rheumatic disease. CRP is highly elevated. Plan: -CTM closely for signs of cardiac tamponade -Bedside echo without signs of tamponade physiology -Formal echo -Likely pericardiocentesis in AM- send routine labs and cytology -Consider thoracentesis of right pleural effusion -Bolus IVF as needed for hypotension to maintain RV volume documented as of this encounter (statuses as of 12/02/2023) [facility] [place]11-26-2020 History of Past illness Narrative* Problem Noted Date Diagnosed Date Resolved Date POLY (acute kidney injury) 08/24/2020 Overview: Baseline Cr 1.7. Cr today 2.2. Likely prerenal possibly CRS. Plan: -Urine studies -Trend Cr -IVF as needed Acute liver disease 08/24/2020 09/01/20 20 Overview: LFTs elevating rapidly from 500s today to 1000s tonight. Possible etiology may be ischemia from poor forward flow in setting of pericardial effusion vs hepatic congestion from effusion (more likely). INR 1.2, albumin 4.0. No AMS or abdominal pain. Pt with normal liver labs at baseline Plan: -Tremd LFTs -Treat pericardial effusion -Tylenol level -Acute and remote hepatitis panels Pericardial effusion 08/23/2020 020 Overview: Pt with new onset moderate to large pericardial effusion in setting of recent severe fatigue and MCGOVERN. Concern for hypotension on RNF and development of tamponade which prompted transfer to CICU. Pt is warm on exam and had mild lactate of 2.3 which improved with IVF. Does have bilateral pleural effusions on CXR L>R but is satting well on 2L NC. Unclear etiology- pt does report several weeks of URI symptoms which could point to viral pericarditis but degree of effusion is less consistent with viral etiology. Malignancy is a possibility as well. CT chest from OSH report does not mention lung mass (images not sent). Pt has not history of rheumatic disease. CRP is highly elevated. Plan: -CTM closely for signs of cardiac tamponade -Bedside echo without signs of tamponade physiology -Formal echo -Likely pericardiocentesis in AM- send routine labs and cytology -Consider thoracentesis of right pleural effusion -Bolus IVF as needed for hypotension to maintain RV volume documented as of this encounter (statuses as of 12/08/2023) [facility] [place]11-26-2020 History of Past illness Narrative* Problem Noted Date Diagnosed Date Resolved Date POLY (acute kidney injury) 08/24/2020 Overview: Baseline Cr 1.7. Cr today 2.2. Likely prerenal possibly CRS. Plan: -Urine studies -Trend Cr -IVF as needed Acute liver disease 08/24/2020 09/01/20 20 Overview: LFTs elevating rapidly from 500s today to 1000s tonight. Possible etiology may be ischemia from poor forward flow in setting of pericardial effusion vs hepatic congestion from effusion (more likely). INR 1.2, albumin 4.0. No AMS or abdominal pain. Pt with normal liver labs at baseline Plan: -Tremd LFTs -Treat pericardial effusion -Tylenol level -Acute and remote hepatitis panels Pericardial effusion 08/23/2020 020 Overview: Pt with new onset moderate to large pericardial effusion in setting of recent severe fatigue and MCGOVERN. Concern for hypotension on RNF and development of tamponade which prompted transfer to CICU. Pt is warm on exam and had mild lactate of 2.3 which improved with IVF. Does have bilateral pleural effusions on CXR L>R but is satting well on 2L NC. Unclear etiology- pt does report several weeks of URI symptoms which could point to viral pericarditis but degree of effusion is less consistent with viral etiology. Malignancy is a possibility as well. CT chest from OSH report does not mention lung mass (images not sent). Pt has not history of rheumatic disease. CRP is highly elevated. Plan: -CTM closely for signs of cardiac tamponade -Bedside echo without signs of tamponade physiology -Formal echo -Likely pericardiocentesis in AM- send routine labs and cytology -Consider thoracentesis of right pleural effusion -Bolus IVF as needed for hypotension to maintain RV volume documented as of this encounter (statuses as of 12/11/2023) [facility] [place]11-26-2020 History of Past illness Narrative* Problem Noted Date Diagnosed Date Resolved Date POLY (acute kidney injury) 08/24/2020 Overview: Baseline Cr 1.7. Cr today 2.2. Likely prerenal possibly CRS. Plan: -Urine studies -Trend Cr -IVF as needed Acute liver disease 08/24/2020 09/01/20 20 Overview: LFTs elevating rapidly from 500s today to 1000s tonight. Possible etiology may be ischemia from poor forward flow in setting of pericardial effusion vs hepatic congestion from effusion (more likely). INR 1.2, albumin 4.0. No AMS or abdominal pain. Pt with normal liver labs at baseline Plan: -Tremd LFTs -Treat pericardial effusion -Tylenol level -Acute and remote hepatitis panels Pericardial effusion 08/23/2020 020 Overview: Pt with new onset moderate to large pericardial effusion in setting of recent severe fatigue and MCGOVERN. Concern for hypotension on RNF and development of tamponade which prompted transfer to CICU. Pt is warm on exam and had mild lactate of 2.3 which improved with IVF. Does have bilateral pleural effusions on CXR L>R but is satting well on 2L NC. Unclear etiology- pt does report several weeks of URI symptoms which could point to viral pericarditis but degree of effusion is less consistent with viral etiology. Malignancy is a possibility as well. CT chest from OSH report does not mention lung mass (images not sent). Pt has not history of rheumatic disease. CRP is highly elevated. Plan: -CTM closely for signs of cardiac tamponade -Bedside echo without signs of tamponade physiology -Formal echo -Likely pericardiocentesis in AM- send routine labs and cytology -Consider thoracentesis of right pleural effusion -Bolus IVF as needed for hypotension to maintain RV volume documented as of this encounter (statuses as of 12/15/2023) [facility] [place]11-26-2020 History of Past illness Narrative* Problem Noted Date Diagnosed Date Resolved Date POLY (acute kidney injury) 08/24/2020 Overview: Baseline Cr 1.7. Cr today 2.2. Likely prerenal possibly CRS. Plan: -Urine studies -Trend Cr -IVF as needed Acute liver disease 08/24/2020 09/01/20 20 Overview: LFTs elevating rapidly from 500s today to 1000s tonight. Possible etiology may be ischemia from poor forward flow in setting of pericardial effusion vs hepatic congestion from effusion (more likely). INR 1.2, albumin 4.0. No AMS or abdominal pain. Pt with normal liver labs at baseline Plan: -Tremd LFTs -Treat pericardial effusion -Tylenol level -Acute and remote hepatitis panels Pericardial effusion 08/23/2020 020 Overview: Pt with new onset moderate to large pericardial effusion in setting of recent severe fatigue and MCGOVERN. Concern for hypotension on RNF and development of tamponade which prompted transfer to CICU. Pt is warm on exam and had mild lactate of 2.3 which improved with IVF. Does have bilateral pleural effusions on CXR L>R but is satting well on 2L NC. Unclear etiology- pt does report several weeks of URI symptoms which could point to viral pericarditis but degree of effusion is less consistent with viral etiology. Malignancy is a possibility as well. CT chest from OSH report does not mention lung mass (images not sent). Pt has not history of rheumatic disease. CRP is highly elevated. Plan: -CTM closely for signs of cardiac tamponade -Bedside echo without signs of tamponade physiology -Formal echo -Likely pericardiocentesis in AM- send routine labs and cytology -Consider thoracentesis of right pleural effusion -Bolus IVF as needed for hypotension to maintain RV volume documented as of this encounter (statuses as of 12/29/2023) [facility] [place]11-26-2020 History of Past illness Narrative* Problem Noted Date Diagnosed Date Resolved Date POLY (acute kidney injury) 08/24/2020 Overview: Baseline Cr 1.7. Cr today 2.2. Likely prerenal possibly CRS. Plan: -Urine studies -Trend Cr -IVF as needed Acute liver disease 08/24/2020 09/01/20 20 Overview: LFTs elevating rapidly from 500s today to 1000s tonight. Possible etiology may be ischemia from poor forward flow in setting of pericardial effusion vs hepatic congestion from effusion (more likely). INR 1.2, albumin 4.0. No AMS or abdominal pain. Pt with normal liver labs at baseline Plan: -Tremd LFTs -Treat pericardial effusion -Tylenol level -Acute and remote hepatitis panels Pericardial effusion 08/23/2020 020 Overview: Pt with new onset moderate to large pericardial effusion in setting of recent severe fatigue and MCGOVERN. Concern for hypotension on RNF and development of tamponade which prompted transfer to CICU. Pt is warm on exam and had mild lactate of 2.3 which improved with IVF. Does have bilateral pleural effusions on CXR L>R but is satting well on 2L NC. Unclear etiology- pt does report several weeks of URI symptoms which could point to viral pericarditis but degree of effusion is less consistent with viral etiology. Malignancy is a possibility as well. CT chest from OSH report does not mention lung mass (images not sent). Pt has not history of rheumatic disease. CRP is highly elevated. Plan: -CTM closely for signs of cardiac tamponade -Bedside echo without signs of tamponade physiology -Formal echo -Likely pericardiocentesis in AM- send routine labs and cytology -Consider thoracentesis of right pleural effusion -Bolus IVF as needed for hypotension to maintain RV volume documented as of this encounter (statuses as of 01/08/2024) [facility] [place]11-26-2020 History of Past illness Narrative* Problem Noted Date Diagnosed Date Resolved Date POLY (acute kidney injury) 08/24/2020 Overview: Baseline Cr 1.7. Cr today 2.2. Likely prerenal possibly CRS. Plan: -Urine studies -Trend Cr -IVF as needed Acute liver disease 08/24/2020 09/01/20 20 Overview: LFTs elevating rapidly from 500s today to 1000s tonight. Possible etiology may be ischemia from poor forward flow in setting of pericardial effusion vs hepatic congestion from effusion (more likely). INR 1.2, albumin 4.0. No AMS or abdominal pain. Pt with normal liver labs at baseline Plan: -Tremd LFTs -Treat pericardial effusion -Tylenol level -Acute and remote hepatitis panels Pericardial effusion 08/23/2020 Overview: Pt with new onset moderate to large pericardial effusion in setting of recent severe fatigue and MCGOVERN. Concern for hypotension on RNF and development of tamponade which prompted transfer to CICU. Pt is warm on exam and had mild lactate of 2.3 which improved with IVF. Does have bilateral pleural effusions on CXR L>R but is satting well on 2L NC. Unclear etiology- pt does report several weeks of URI symptoms which could point to viral pericarditis but degree of effusion is less consistent with viral etiology. Malignancy is a possibility as well. CT chest from OSH report does not mention lung mass (images not sent). Pt has not history of rheumatic disease. CRP is highly elevated. Plan: -CTM closely for signs of cardiac tamponade -Bedside echo without signs of tamponade physiology -Formal echo -Likely pericardiocentesis in AM- send routine labs and cytology -Consider thoracentesis of right pleural effusion -Bolus IVF as needed for hypotension to maintain RV volume documented as of this encounter (statuses as of 01/08/2024) [facility] [place]11-26-2020 History of Past illness Narrative* Problem Noted Date Diagnosed Date Resolved Date POLY (acute kidney injury) 08/24/2020 Overview: Baseline Cr 1.7. Cr today 2.2. Likely prerenal possibly CRS. Plan: -Urine studies -Trend Cr -IVF as needed Acute liver disease 08/24/2020 09/01/20 20 Overview: LFTs elevating rapidly from 500s today to 1000s tonight. Possible etiology may be ischemia from poor forward flow in setting of pericardial effusion vs hepatic congestion from effusion (more likely). INR 1.2, albumin 4.0. No AMS or abdominal pain. Pt with normal liver labs at baseline Plan: -Tremd LFTs -Treat pericardial effusion -Tylenol level -Acute and remote hepatitis panels Pericardial effusion 08/23/2020 020 Overview: Pt with new onset moderate to large pericardial effusion in setting of recent severe fatigue and MCGOVERN. Concern for hypotension on RNF and development of tamponade which prompted transfer to CICU. Pt is warm on exam and had mild lactate of 2.3 which improved with IVF. Does have bilateral pleural effusions on CXR L>R but is satting well on 2L NC. Unclear etiology- pt does report several weeks of URI symptoms which could point to viral pericarditis but degree of effusion is less consistent with viral etiology. Malignancy is a possibility as well. CT chest from OSH report does not mention lung mass (images not sent). Pt has not history of rheumatic disease. CRP is highly elevated. Plan: -CTM closely for signs of cardiac tamponade -Bedside echo without signs of tamponade physiology -Formal echo -Likely pericardiocentesis in AM- send routine labs and cytology -Consider thoracentesis of right pleural effusion -Bolus IVF as needed for hypotension to maintain RV volume documented as of this encounter (statuses as of 01/09/2024) [facility] [place]11-26-2020 History of Past illness Narrative* Problem Noted Date Diagnosed Date Resolved Date POLY (acute kidney injury) 08/24/2020 Overview: Baseline Cr 1.7. Cr today 2.2. Likely prerenal possibly CRS. Plan: -Urine studies -Trend Cr -IVF as needed Acute liver disease 08/24/2020 09/01/20 20 Overview: LFTs elevating rapidly from 500s today to 1000s tonight. Possible etiology may be ischemia from poor forward flow in setting of pericardial effusion vs hepatic congestion from effusion (more likely). INR 1.2, albumin 4.0. No AMS or abdominal pain. Pt with normal liver labs at baseline Plan: -Tremd LFTs -Treat pericardial effusion -Tylenol level -Acute and remote hepatitis panels Pericardial effusion 08/23/2020 020 Overview: Pt with new onset moderate to large pericardial effusion in setting of recent severe fatigue and MCGOVERN. Concern for hypotension on RNF and development of tamponade which prompted transfer to CICU. Pt is warm on exam and had mild lactate of 2.3 which improved with IVF. Does have bilateral pleural effusions on CXR L>R but is satting well on 2L NC. Unclear etiology- pt does report several weeks of URI symptoms which could point to viral pericarditis but degree of effusion is less consistent with viral etiology. Malignancy is a possibility as well. CT chest from OSH report does not mention lung mass (images not sent). Pt has not history of rheumatic disease. CRP is highly elevated. Plan: -CTM closely for signs of cardiac tamponade -Bedside echo without signs of tamponade physiology -Formal echo -Likely pericardiocentesis in AM- send routine labs and cytology -Consider thoracentesis of right pleural effusion -Bolus IVF as needed for hypotension to maintain RV volume documented as of this encounter (statuses as of 01/09/2024) [facility] [place]11-26-2020 History of Past illness Narrative* Problem Noted Date Diagnosed Date Resolved Date OPLY (acute kidney injury) 08/24/2020 Overview: Baseline Cr 1.7. Cr today 2.2. Likely prerenal possibly CRS. Plan: -Urine studies -Trend Cr -IVF as needed Acute liver disease 08/24/2020 09/01/20 20 Overview: LFTs elevating rapidly from 500s today to 1000s tonight. Possible etiology may be ischemia from poor forward flow in setting of pericardial effusion vs hepatic congestion from effusion (more likely). INR 1.2, albumin 4.0. No AMS or abdominal pain. Pt with normal liver labs at baseline Plan: -Tremd LFTs -Treat pericardial effusion -Tylenol level -Acute and remote hepatitis panels Pericardial effusion 08/23/2020 020 Overview: Pt with new onset moderate to large pericardial effusion in setting of recent severe fatigue and MCGOVERN. Concern for hypotension on RNF and development of tamponade which prompted transfer to CICU. Pt is warm on exam and had mild lactate of 2.3 which improved with IVF. Does have bilateral pleural effusions on CXR L>R but is satting well on 2L NC. Unclear etiology- pt does report several weeks of URI symptoms which could point to viral pericarditis but degree of effusion is less consistent with viral etiology. Malignancy is a possibility as well. CT chest from OSH report does not mention lung mass (images not sent). Pt has not history of rheumatic disease. CRP is highly elevated. Plan: -CTM closely for signs of cardiac tamponade -Bedside echo without signs of tamponade physiology -Formal echo -Likely pericardiocentesis in AM- send routine labs and cytology -Consider thoracentesis of right pleural effusion -Bolus IVF as needed for hypotension to maintain RV volume documented as of this encounter (statuses as of 01/14/2024) [facility] [place]11-26-2020 History of Past illness Narrative* Problem Noted Date Diagnosed Date Resolved Date POLY (acute kidney injury) 08/24/2020 Overview: Baseline Cr 1.7. Cr today 2.2. Likely prerenal possibly CRS. Plan: -Urine studies -Trend Cr -IVF as needed Acute liver disease 08/24/2020 09/01/20 20 Overview: LFTs elevating rapidly from 500s today to 1000s tonight. Possible etiology may be ischemia from poor forward flow in setting of pericardial effusion vs hepatic congestion from effusion (more likely). INR 1.2, albumin 4.0. No AMS or abdominal pain. Pt with normal liver labs at baseline Plan: -Tremd LFTs -Treat pericardial effusion -Tylenol level -Acute and remote hepatitis panels Pericardial effusion 08/23/2020 020 Overview: Pt with new onset moderate to large pericardial effusion in setting of recent severe fatigue and MCGOVERN. Concern for hypotension on RNF and development of tamponade which prompted transfer to CICU. Pt is warm on exam and had mild lactate of 2.3 which improved with IVF. Does have bilateral pleural effusions on CXR L>R but is satting well on 2L NC. Unclear etiology- pt does report several weeks of URI symptoms which could point to viral pericarditis but degree of effusion is less consistent with viral etiology. Malignancy is a possibility as well. CT chest from OSH report does not mention lung mass (images not sent). Pt has not history of rheumatic disease. CRP is highly elevated. Plan: -CTM closely for signs of cardiac tamponade -Bedside echo without signs of tamponade physiology -Formal echo -Likely pericardiocentesis in AM- send routine labs and cytology -Consider thoracentesis of right pleural effusion -Bolus IVF as needed for hypotension to maintain RV volume documented as of this encounter (statuses as of 01/15/2024) [facility] [place]11-26-2020 History of Past illness Narrative* Problem Noted Date Diagnosed Date Resolved Date POLY (acute kidney injury) 08/24/2020 Overview: Baseline Cr 1.7. Cr today 2.2. Likely prerenal possibly CRS. Plan: -Urine studies -Trend Cr -IVF as needed Acute liver disease 08/24/2020 09/01/20 Overview: LFTs elevating rapidly from 500s today to 1000s tonight. Possible etiology may be ischemia from poor forward flow in setting of pericardial effusion vs hepatic congestion from effusion (more likely). INR 1.2, albumin 4.0. No AMS or abdominal pain. Pt with normal liver labs at baseline Plan: -Tremd LFTs -Treat pericardial effusion -Tylenol level -Acute and remote hepatitis panels Pericardial effusion 08/23/2020 020 Overview: Pt with new onset moderate to large pericardial effusion in setting of recent severe fatigue and MCGOVERN. Concern for hypotension on RNF and development of tamponade which prompted transfer to CICU. Pt is warm on exam and had mild lactate of 2.3 which improved with IVF. Does have bilateral pleural effusions on CXR L>R but is satting well on 2L NC. Unclear etiology- pt does report several weeks of URI symptoms which could point to viral pericarditis but degree of effusion is less consistent with viral etiology. Malignancy is a possibility as well. CT chest from OSH report does not mention lung mass (images not sent). Pt has not history of rheumatic disease. CRP is highly elevated. Plan: -CTM closely for signs of cardiac tamponade -Bedside echo without signs of tamponade physiology -Formal echo -Likely pericardiocentesis in AM- send routine labs and cytology -Consider thoracentesis of right pleural effusion -Bolus IVF as needed for hypotension to maintain RV volume documented as of this encounter (statuses as of 01/17/2024) [facility] [place]10-01-2018 Evaluation note* Diagnosis Onset Date Resolution Status History of permanent cardiac pacemaker placement Oct er, 2018 chronic Left bundle branch block (LBBB) chronic PAF (paroxysmal atrial fibrillation) chronic Sick sinus syndrome chronic Urinary incontinence noneact thomas Dysuria noneactive CLIFFORD (obstructive sleep apnea) acute Chest pain acute Elevated troponin acute History of hypertension acut e NSTEMI, initial episode of care acute CKD (chronic kidney disease) stage 3, GFR 30-59 ml/min chronic Diabetes mellitus, type 2 ch ronic Essential hypertension chron ic History of chronic kidney disease [facility] Work Phone: 1(158) 160-409910-01-2018 Evaluation note* Diagnosis Onset Date Resolution Status History of permanent cardiac pacemaker placement 2017 chronic Left bundle branch block (LBBB) chronic PAF (paroxysmal atrial fibrillation) chronic Sick sinus syndrome chronic Urinary incontinence noneact thomas Dysuria noneactive CLIFFORD (obstructive sleep apnea) acute Chest pain acute Elevated troponin acute History of hypertension acut e NSTEMI, initial episode of care acute Chronic pericarditis with effusion chronic CKD (chronic kidney disease) stage 3, GFR 30-59 ml/min chronic Diabetes mellitus, type 2 ch ronic Essential hypertension chron ic History of chronic kidney disease chronic History of permanent cardiac pacemaker placement 2017 chronic HLD (hyperlipidemia) chronic Nonrheumatic aortic valve stenosis chronic PAF (paroxysmal atrial fibrillation) [facility] Work Phone: 1(832) 684-940610-01-2018 Evaluation note* Diagnosis Onset Date Resolution Status Elevated troponin acute Chronic pericarditis with effusion chronic Diabetes mellitus, type 2 ch ronic Essential hypertension chron ic History of permanent cardiac pacemaker placement 2017 chronic HLD (hyperlipidemia) chronic PAF (paroxysmal atrial fibrillation) chronic Chest pain resolved NSTEMI, initial episode of care resolved Calcification of right breast on mammography acute Elevated troponin acute Chronic pericarditis with effusion chronic Essential hypertension chron ic History of permanent cardiac pacemaker placement 2017 chronic HLD (hyperlipidemia) chronic Left bundle branch block (LBBB) chronic PAF (paroxysmal atrial fibrillation) chronic Sick sinus syndrome [facility] Work Phone: 1(253) 397-278310-01-2018 Evaluation note* Diagnosis Onset Date Resolution Status Calcification of right breast on mammography acute Chronic pericarditis with effusion chronic Essential hypertension chron ic History of permanent cardiac pacemaker placement 2017 chronic HLD (hyperlipidemia) chronic Elevated troponin resolved Left bundle branch block (LBBB) chronic PAF (paroxysmal atrial fibrillation) chronic Sick sinus syndrome chronic Acquired hypothyroidism acut e CLIFFORD (obstructive sleep apnea) acute Uncontrolled hypertension no neactive CKD (chronic kidney disease) stage 3, GFR 30-59 ml/min noneactive 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 Work Phone: Discharge summary Author Herve Melton [facility] Note Date/Time July 08, 2025 8 :25am [facility] Medical Records Department [address] [place] [address] Emergency Department Summary 07/08/25 MR#: [id number] Acct: [id number] Name: LYNETTE ANGULO Rep #:[id number] : 1940 [id number] From: Herve Melton DO PCP: Dr. Jorge Benavides MD Status:REG ER Location: ED HPI History of Present Illness Chief Complaint: Chest Pain Informant: patient and spouse/S.O. Narrative Narrative: Patient is a 85-year-old female with past medical history of sick sinus syndromestatus post pacemaker as well as chronic kidney disease and [id number]-[id number] diabetes. She states that a few hours ago she was seen at rest when she developed a pain/discomfort along the left flank/back region that radiated towards the chest. She states she got nauseous with the onset of the pain. Shedenied any active vomiting. She states there is no associated shortness of breath or diaphoresis. She states symptoms have improved but not resolved. Shedenies any recent trauma or physical activity. She states she was unsure if thesymptoms are related to a cardiovascular event and therefore comes in for evaluation [facility] Medical History Iron deficiency anemia Chronic renal failure Anemia Constipation Vaginal atrophy Nocturnal enuresis Urge incontinence Overactive bladder Aortic stenosis Stage 4 chronic kidney disease Breast calcification, right Anxiety Hypothyroidism Diabetes Kidney disease Sleep apnea Atrial fibrillation Secondary pulmonary arterial hypertension Sick sinus syndrome Chronic pericarditis with effusion Left bundle branch block (LBBB) Essential hypertension Bradycardia Physical debility Gout Glaucoma Chronic renal failure, stage 3a Osteoarthritis Diabetes mellitus, type 2 Pericardial effusion (08/23/20) LVH (left ventricular hypertrophy) Musculoskeletal back pain PAF (paroxysmal atrial fibrillation) Hemoptysis CLIFFORD (obstructive sleep apnea) Hypersomnolence Nonrheumatic aortic valve stenosis Carotid bruit HLD (hyperlipidemia) Abnormal cardiac enzyme level Hyperthyroidism Home Medications ?Medication ?Instructions ?Recorded ?Last Taken ?Type Oral Appliance #1 ea 03/19/22 Unknown Rx latanoprost 0.005 % eye drops 1 drp EACH EYE QHS Check with 03/28/22 11/15/24 History primary doctor -[id number] 1 cap PO DAILY suppl ement 12/01/22 11/16/24 History oil 350 mg-400 mg capsule cholecalciferol (vitamin D3) 125 125 mcg PO DAILY #30 tabs 12/11/22 11/16/24 Rx mcg (5,000 unit) tablet ascorbic acid (vitamin C) 500 mg 500 mg PO DAILY 02/0711/16/24 History capsule cranberry 500 mg capsule 500 mg PO DAILY 02/07/23 Unk nown History doxazosin 4 mg tablet 4 mg PO QHS #90 tabs 4 11/15/24 Rx carvedilol 25 mg tablet 25 mg PO BID #180 TABLETS 11/16/24 Rx amlodipine 10 mg tablet 10 mg PO DAILY 11/16/2410/30 History apixaban 2.5 mg tablet (Eliquis) 2.5 mg PO BID 5 11/16/24 History cinnamon bark 500 mg capsule 500 mg PO DAILY 11/16/24 11/16/24 History (Cinnamon) isosorbide mononitrate 30 mg 30 mg PO DAILY 11/16/24 0 11/16/24 History tablet,extended release 24 hr olmesartan 20 mg tablet 20 mg PO QDAY 12/09/24 Unkno wn History pantoprazole 40 mg tablet,delayed 40 mg PO DAILY #90 t abs 05/12/25 Unknown Rx release estradiol 0.01% (0.1 mg/gram) 1 g vaginal 3XW 3 months #42.5 05/17/25 Unknown Rx vaginal cream grams clopidogrel 75 mg tablet 75 mg PO DAILY #90 tabs 04/30 11/23 Unknown Rx glimepiride 2 mg tablet 2 mg PO DAILY blood sugar #9 0 tabs 05/20/25 Unknown Rx levothyroxine 100 mcg tablet 100 mcg PO DAILY #90 tabs 05/23/25 Unknown Rx atorvastatin 20 mg tablet 20 mg PO QDAY 05/24/25 Unkno wn History ferrous sulfate 325 mg (65 mg 325 mg PO BID #60 tabs 0 06/02/25 Unknown Rx iron) tablet (Iron (ferrous sulfate)) torsemide 20 mg tablet 10 mg PO QAM 06/16/25 Unknow n History BIPAP -Bilevel Positive Airway 06/21/25 Unknown Histo ry Pressure ([facility] USE ONLY) Allergy/AdvReac Type Severity Reaction Status Date / Time benazepril (From Lotensin) Allergy Unknown Verified 07/07/25 23:12 Iodine and Iodide Containing Allergy Shortness Verified 07/07/25 23:12 Produc of breath meperidine (From Demerol) Allergy Unknown Verified 07/07/25 23:12 metformin (From Janumet) Allergy Pain in Verified 07/07/25 23:12 joints Penicillins Allergy Hives Verified 07/07/25 23:12 propoxyphene (From Darvon) Allergy Unknown Verified 07/07/25 23:12 shellfish derived Allergy Shortness Verified 07/07/25 23:12 of breath sitagliptin (From Janumet) Allergy Pain in Verified 07/07/25 23:12 joints spironolactone Allergy Unknown Verified 07/07/25 23:12 rivaroxaban (From Xarelto) AdvReac Severe PERICARDIAL Verified 07/07/25 23:12 EFFUSION adhesive AdvReac Unknown Unknown Verified 07/07/25 23:12 hydrochlorothiazide AdvReac NEEDS Verified 07/07/25 23:12 FOLLOW-UP lisinopril AdvReac NEEDS Verified 07/07/25 23:12 FOLLOW-UP metoprolol AdvReac Shortness Verified 07/07/25 23:12 of breath simvastatin AdvReac Pain in Verified 07/07/25 23:12 joints Family History Mother Cancer Uterine Thyroid disorder Father Cancer lung Hypertension Son Cancer esophageal Surgical History (Updated 07/08/25 @ 07:[address] 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 History of total hysterectomy History of tonsillectomy and adenoidectomy History of parathyroidectomy (2010) History of thyroidectomy, total (2010) Social History household members: spouse number of children: 2 current occupational status: retired current occupation: worked in the [employer] at [employer] Smoking Status: Never smoker Electronic Cigarette Use: not used alcohol intake: never substance use type: does not use caffeine: No do you feel safe at home: Yes ROS ROS ED Constitutional Constitutional ED: Denies chills or fever(s) Eyes Eyes: Denies blurry vision or change in vision ENT ENT ED: Denies sore throat Cardiovascular Cardiovascular: Reports chest pain; Denies palpitations or racing heartbeat Respiratory/Chest Respiratory/Chest: Denies cough or dyspnea Gastrointestinal Gastrointestinal: Reports abdominal pain and nausea; Denies diarrhea or vomiting Genitourinary Genitourinary ED: Denies dysuria or hematuria Musculoskeletal Musculoskeletal: Reports back pain Integumentary Denies rash Neurologic Neurologic: Denies headache(s) Hematologic/Lymphatic Hematologic/Lymphatic: Reports easy bleeding and easy bruising EXAM Physical Exam Const Vital Signs: 07/07/25 23:10 07/07/25 23:24 07/08/25 00:10 Temperature 97.8 F Temperature Source Oral Pulse Rate 58 L 51 L Respiratory Rate 18 16 Blood Pressure 145/77 H 129/68 H Blood Pressure Mean 99 88 Pulse Ox 98 99 98 Oxygen Delivery Method Room Air Room Air Room Air 07/08/25 02:00 07/08/25 03:00 07/08/25 04:00 Temperature Temperature Source Pulse Rate 55 L 55 L 55 L Respiratory Rate 18 18 16 Blood Pressure 134/65 H 131/65 H Blood Pressure Mean 88 87 Pulse Ox 96 94 92 Oxygen Delivery Method Room Air Room Air Room Air 07/08/25 05:00 07/08/25 06:00 07/08/25 07:00 Temperature Temperature Source Pulse Rate 55 L 55 L 55 L Respiratory Rate 18 16 15 Blood Pressure 131/61 H 136/62 H 139/68 H Blood Pressure Mean 84 86 91 Pulse Ox 97 97 96 Oxygen Delivery Method Room Air Room Air Room Air 07/08/25 08:00 Temperature Temperature Source Pulse Rate 58 L Respiratory Rate 12 Blood Pressure 115/78 Blood Pressure Mean 90 Pulse Ox 99 Oxygen Delivery Method Room Air Positive well nourished and well developed General Appearance ED: well developed; Negative for pallor HEENT HEENT Narrative: Normocephalic atraumatic Eyes PERRL and EOMs intact bilaterally General Eye ED: Negative for scleral icterus Neck supple Neck Narrative: No nuchal rigidity or meningeal signs Chest Wall palpation of chest normal Chest Narrative: No bony deformity or reproducible pain with palpation Resp normal respiratory effort and clear to auscultation bilaterally Resp Narrative: Breath sounds are diminished throughout but overall clear to auscultation without signs of respiratory distress Cardio regular rate and regular rhythm Rate: other Other Details: Radial and carotid pulses are equal and symmetric GI non-distended and no masses GI Narrative: Abdomen soft and nondistended with normal active bowel sounds. There is faint pain on palpation along the left lateral upper abdominal region. No voluntary guarding or rigidity. No pulsatile mass or fluid wave. Negative Salcido sign Auscultation: normoactive bowel sounds Palpation: soft Back/Spine Back/Spine Narrative: Faint left CVA pain noted Extremity Extremity Narrative: +1 pitting edema to the bilateral lower extremities that is equal and symmetric. Negative Homans' sign bilaterally Neuro oriented x3, CN's II-XII intact bilaterally and no sensory deficits noted Sensorium / Orientation: alert Motor Exam: strength 5/5 throughout Psych mental status grossly normal Skin no rashes or lesions noted and no wounds Skin Narrative: No overlying soft tissue changes to suggest trauma or infection General Skin Exam: Negative for jaundice or pallor MDM MDM MDM Narrative Medical decision making narrative: Patient arrived to the ER with stable vitals. She reported sudden onset of left- sided abdominal/flank pain without trauma or excessive activity. With the report of sudden onset of pain as well as nausea associated with it I felt this was most likely from potential kidney stone. However the patient has a history of coronary artery disease and secondary to this a basic cardiac workup will be obtained as well. EKG showed a paced rhythm which correlates with her past medical history without signs of pacemaker malfunction. Initial troponin was 19and delta open reduced by 1 point to a value of 18 which is not clinically significant goes against active cardiac event. Chest x-ray revealed no acute lung pathology as the cause such as pneumonia or pneumothorax. A noncontrast CTof the abdomen pelvis was performed as there was high likelihood that the pain was secondary to a kidney stone. However the CT scan did not reveal any type ofkidney stone but did document a large gallstone with potential thickening concerning for acute cholecystitis. Secondary to this lipase and liver enzymes were obtained which were overall normal. The patient had resolution of pain nausea with Toradol and Zofran. She does not have pain in the right upper quadrant/negative Salcido sign but occasionally a vague left-sided abdominal discomfort can be related to the gallbladder and therefore I feel the safest option is to hold her in the ER overnight until we can perform a ultrasound in the morning. At this time with a paced EKG and a flat troponin I have low concern is cardiovascular. I do not feel there is need for admission based on this. The ultrasound revealed a thickened gallbladder but no overt signs of acute cholecystitis. The patient never had pain in the right upper quadrant she does not have a fever or leukocytosis or left shift and her liver enzymes are normal. I did discuss the case with general surgeon Dr. Pack. He reviewed the patient's workup and agrees that with the pain never being in the right upper quadrant being resolved after 1 dose of Toradol and staying resolved that there is no need for admission or further emergent intervention. She can follow-up with your family doctor as an outpatient to discuss HIDA scan testing for further evaluation of the gallbladder but at this time his vitals are stable andoverall workup is negative he is otherwise safe for discharge. History & Record Review Discussion w/independent historian: Patient and Significant other Lab Data Attestation: I reviewed the patient's lab results. Labs: Laboratory Results - last 24 hr 07/07/25 07/08/25 07/08/25 23:32 02:50 02:55 WBC 6.4 RBC 3.51 L Hgb 10.0 L Hct 31.6 L MCV 90.0 MCH 28.5 MCHC 31.6 L RDW Std Deviation 56.0 H RDW Coeff of Ignacia 17.0 H Plt Count 179 MPV 9.8 Immature Gran % (Auto) 0.500 Neut % (Auto) 76.9 H Lymph % (Auto) 13.0 L Travis % (Auto) 8.3 Eos % (Auto) 1.1 Baso % (Auto) 0.2 Absolute Neuts (auto) 4.9 Absolute Lymphs (auto) 0.83 Nucleated RBC % 0 Sodium 137 Potassium 4.1 Chloride 102 Carbon Dioxide 21.5 Anion Gap 13 BUN 57 H Creatinine 1.98 H Est GFR (MDRD) Non-Af 24 L BUN/Creatinine Ratio 28.8 H Glucose 156 H Calcium 10.1 Total Bilirubin 0.64 Direct Bilirubin 0.36 H AST 29 ALT 34 Alkaline Phosphatase 99 Troponin T High Sens 19 H Troponin T Hi Sens 2 Hr 18 H Total Protein 7.1 Albumin 4.4 Globulin 2.7 Lipase 64 Urine Color Straw Urine Clarity Clear Urine pH 6.0 Ur Specific [place] 1.015 Urine Protein 15 H Urine Glucose (UA) Normal Urine Ketones Negative Urine Occult Blood Negative Urine Nitrite Negative Urine Bilirubin Negative Urine Urobilinogen Normal Ur Leukocyte Esterase Negative Urine RBC 0 SEEN Urine WBC 0 SEEN Ur Squamous Epith Cells 0 SEEN Urine Bacteria 0 SEEN Urine Mucus 0 SEEN Radiography Diagnostic Testing: Clinical Impression(s) from Imaging Studies Chest X-Ray 07/07/25 23:50 IMPRESSION: No evidence for acute abnormality. Reading Location: [id number] Abdomen/Pelvis CT 07/08/25 00:06 IMPRESSION: Gall bladder calculus with mild wall edema, possibly cholecystitis. Advise clinical correlation. Colonic diverticulosis. No diverticulitis. Minimal ascites. Mild right pleural effusion. Reading Location: [id number] Gallbladder Ultrasound 07/08/25 03:58 IMPRESSION: 1. Mild heterogeneous appearance of the uterus. Morphology is not particularlycirrhotic. Portal vein is patent with pulsatile pattern. This can be seen with liver dysfunction but also in the setting of cardiac dysfunction including right heart failure, tricuspid valve regurgitation. Correlate with cardiac history. 2. Gallstone in the gallbladder wall. Gallbladder wall is thickened. Negativesonographic Salcido's sign. This may be from 3rd spacing rather than acute cholecystitis. Recommend correlation with physical exam and laboratory values. If this is equivocal, HIDA scanning may be helpful. No biliary ductal dilation. 3. Simple cyst right kidney. Bosniak 1. No follow-up required. Reading Location: [id number] Chest x-ray as interpreted by the emergency medicine physician reveals no acute infiltrate pneumothorax or pleural effusion Discharge Plan Triage Chief Complaint: Chest Pain ED Provider: Andes,Herve Dx/Rx/DC Orders Clinical Impression: Cholelithiasis, Non-insulin dependent diabetes mellitus, Sick sinus syndrome, History of permanent cardiac pacemaker placement, Hypothyroidism, Current use oflong term anticoagulation Instructions: Gallstones Dc Prescriptions: No Action (DME) Oral Appliance See Rx Instructions .ROUTE .MEDSUPPLY Qty: 1 0RF Rx Instructions: As directed cranberry 500 mg capsule 500 mg PO DAILY Rx Instructions: administer with meals ascorbic acid (vitamin C) 500 mg capsule 500 mg PO DAILY atorvastatin 20 mg tablet 20 mg PO QDAY olmesartan 20 mg tablet 20 mg PO QDAY estradiol 0.01 % (0.1 mg/gram) cream 1 g vaginal 3XW 90 Days Qty: 42.5 3RF torsemide 20 mg tablet 10 mg PO QAM latanoprost 0.005 % Drops 1 drp EACH EYE QHS [id number] oil 350-400 mg Capsule 1 cap PO DAILY amlodipine 10 mg tablet 10 mg PO DAILY isosorbide mononitrate 30 mg tablet extended release 24 hr 30 mg PO DAILY cinnamon bark [Cinnamon] 500 mg capsule 500 mg PO DAILY Eliquis 2.5 mg tablet 2.5 mg PO BID (DME) BIPAP -Bilevel Positive Airway Pressure ([facility] USE ONLY) See Rx Instructions .Route .MEDSUPPLY Rx Instructions: BiPAP 14/10 at home using a Quantifind AirCurve 11 VAUTO machine DME- DASCO MASK- MED RESMED N30 NASAL MASK cholecalciferol (vitamin D3) 125 mcg (5,000 unit) tablet 125 mcg PO DAILY Qty: 30 0RF doxazosin 4 mg tablet 4 mg PO QHS Qty: 90 1RF carvedilol 25 mg tablet 25 mg PO BID Qty: 180 1RF pantoprazole 40 mg tablet,delayed release (DR/EC) 40 mg PO DAILY Qty: 90 0RF clopidogrel 75 mg tablet 75 mg PO DAILY Qty: 90 3RF glimepiride 2 mg tablet 2 mg PO DAILY Qty: 90 1RF levothyroxine 100 mcg tablet 100 mcg PO DAILY Qty: 90 1RF ferrous sulfate [Iron (ferrous sulfate)] 325 mg (65 mg iron) tablet 325 mg PO BID Qty: 60 3RF Primary Care Provider: Jorge Benavides Referrals: Jorge Benavides MD [Primary Care Provider, Internal Medicine] Activity Restrictions/Additional Instructions: Your workup today did not reveal any signs of acute heart damage or pneumonia. There was concern for a kidney stone but your CAT scan did not show 1 and your urine does not show signs of infection. It did show a gallstone but ultrasound does not show any signs of acute cholecystitis. Please follow-up with your family doctor to discuss a potential HIDA scan to further assess your gallbladder. If pain returns or you have any further concerns please return to the ER for repeat evaluation. Print Language: Czech Disposition Disposition: Home, Self Care What to do if you have Problems For any increased pain, shortness of breath, bleeding, nausea or vomiting, chestpain, or any unexpected problems, contact your Primary Care Provider. Call [facility] ([phone]) or report to the closest Emergency Room. Call 911 if necessary. 07/08/25824 <Electronically signed by Herve Melton DO> Cosigner Signature (if applicable): CC: Dr. Jorge Benavides MD ~ Signed [facility] Work Phone: Evaluation + Plan note Future Appointments [facility] Evaluation noteNo assessment information available [facility] Work Phone: Evaluation note* Diagnosis Screening for ischemic heart disease- Primary [facility] Diagnosis SOB (shortness of breath) Shortness of breath H/O pericarditis Personal history of other diseases of circulatory system Chest pain, unspecified type Essential (primary) hypertension Unspecified essential hypertension Back pain, unspecified back location, unspecified back pain laterality, unspecified chronicity documented [facility] this [facility]* Diagnosis Encounter for immunization- Primary Need for other specified prophylactic vaccination against single bacterial disease Dog scratch Other and unspecified superficial injury of other, multiple, and unspecified sites, without mention of infection [facility]* Diagnosis Acute idiopathic pericarditis Chest pain, unspecified Chest pain, unspecified Primary hypertension Unspecified essential hypertension [facility] Diagnosis Onset Date Resolution Status CLIFFORD (obstructive sleep apnea) chronic Acute blood loss anemia acut e Bradycardia acute Failed total knee replacement acute Hypersomnolence acute Physical debility acute Status post revision of total knee replacement acute Carotid bruit chronic Chronic renal failure, stage 3a chronic Diabetes mellitus, type 2 ch ronic Glaucoma chronic HLD (hyperlipidemia) chronic HTN (hypertension) chronic LVH (left ventricular hypertrophy) chronic Non-rheumatic tricuspid valve insufficiency chronic Nonrheumatic aortic valve stenosis chronic Nonrheumatic mitral valve insufficiency chronic Obesity chronic CLIFFORD (obstructive sleep apnea) chronic Osteoarthritis chronic PAF (paroxysmal atrial fibrillation) chronic Status post placement of cardiac pacemaker chronic History of parathyroidectomy resolved History of thyroidectomy, total resolved Hypophosphatemia resolved Sinus pause resolved [facility] Work Phone: Evaluation note* Diagnosis Onset Date Resolution Status CLIFFORD (obstructive sleep apnea) acute CLIFFORD (obstructive sleep apnea) acute Physical debility acute HTN (hypertension) chronic Nonrheumatic aortic valve stenosis chronic Obesity chronic Acute blood loss anemia reso lved Hypophosphatemia resolved Sinus pause resolved Status post revision of total knee replacement resolved Acquired hypothyroidism acut e CLIFFORD (obstructive sleep apnea) acute Establishing care with new doctor, encounter for noneactive Status post revision of tota l replacement of left knee noneactive Hospital discharge follow-up noneactive Constipation by delayed colonic transit noneactive CLIFFORD (obstructive sleep apnea) acute Obesity chronic [facility] Work Phone: Evaluation note* Diagnosis Nonrheumatic aortic valve stenosis- Primary Aortic valve disorders Paroxysmal atrial fibrillation (HCC) Atrial fibrillation SSS (sick sinus syndrome) (HCC) Sinoatrial node dysfunction Chronic pericarditis, unspecified complication status, unspecified type Primary hypertension Unspecified essential hypertension Heart failure, unspecified (HCC) Heart failure, unspecified documented [facility]* Diagnosis SOB (shortness of breath) Shortness of breath H/O pericarditis Personal history of other diseases of circulatory system Chest pain, unspecified type Essential (primary) hypertension Unspecified essential hypertension Back pain, unspecified back location, unspecified back pain laterality, unspecified chronicity Pericarditis in diseases classified elsewhere [facility] Diagnosis SOB (shortness of breath) Shortness of breath H/O pericarditis Personal history of other diseases of circulatory system Chest pain, unspecified type Essential (primary) hypertension Unspecified essential hypertension Back pain, unspecified back location, unspecified back pain laterality, unspecified chronicity [facility] this [facility] Diagnosis Onset Date Resolution Status CLIFFORD (obstructive sleep apnea) acute Diabetes mellitus, type 2 ch ronic HLD (hyperlipidemia) chronic LVH (left ventricular hypertrophy) chronic Nonrheumatic aortic valve stenosis chronic Obesity chronic PAF (paroxysmal atrial fibrillation) chronic Acute blood loss anemia reso lved Hypophosphatemia resolved Sinus pause resolved Status post revision of total knee replacement February, 022 resolved Acquired hypothyroidism acut e CLIFFORD (obstructive sleep apnea) acute Establishing care with new doctor, encounter for noneactive Status post revision of tota l replacement of left knee noneactive Hospital discharge follow-up noneactive Constipation by delayed colonic transit noneactive CLIFFORD (obstructive sleep apnea) acute Obesity chronic Nonrheumatic aortic valve stenosis chronic Uncontrolled hypertension no neactive CKD (chronic kidney disease) stage 3, GFR 30-59 ml/min noneactive Constipation by delayed colonic transit noneactive Chronic pericarditis with effusion chronic Essential hypertension chron ic History of permanent cardiac pacemaker placement 2017 chronic HLD (hyperlipidemia) chronic Nonrheumatic aortic valve stenosis chronic Acquired hypothyroidism acut e Nonrheumatic aortic valve stenosis chronic Uncontrolled hypertension no neactive [place] noneactive CKD (chronic kidney disease) stage 3, GFR 30-59 ml/min noneactive Status post revision of tota l replacement of left knee noneactive Constipation by delayed colonic transit noneactive [facility] Work Phone: Evaluation note* Diagnosis Onset Date Resolution Status CLIFFORD (obstructive sleep apnea) acute Obesity chronic Nonrheumatic aortic valve stenosis chronic Uncontrolled hypertension no neactive CKD (chronic kidney disease) stage 3, GFR 30-59 ml/min noneactive Constipation by delayed colonic transit noneactive Chronic pericarditis with effusion chronic Essential hypertension chron ic History of permanent cardiac pacemaker placement 2017 chronic HLD (hyperlipidemia) chronic Nonrheumatic aortic valve stenosis chronic Acquired hypothyroidism acut e Nonrheumatic aortic valve stenosis chronic Uncontrolled hypertension no neactive [place] noneactive CKD (chronic kidney disease) stage 3, GFR 30-59 ml/min noneactive Status post revision of tota l replacement of left knee noneactive Constipation by delayed colonic transit noneactive History of permanent cardiac pacemaker placement 2017 chronic Left bundle branch block (LBBB) chronic PAF (paroxysmal atrial fibrillation) chronic Sick sinus syndrome chronic [facility] Work Phone: Evaluation note* Diagnosis Onset Date Resolution Status Acquired hypothyroidism acut e Nonrheumatic aortic valve stenosis chronic Uncontrolled hypertension no neactive [place] noneactive CKD (chronic kidney disease) stage 3, GFR 30-59 ml/min noneactive Status post revision of tota l replacement of left knee noneactive Constipation by delayed colonic transit noneactive History of permanent cardiac pacemaker placement er, 2017 chronic Left bundle branch block (LBBB) chronic PAF (paroxysmal atrial fibrillation) chronic Sick sinus syndrome chronic Urinary incontinence noneact thomas Dysuria noneactive [facility] Work Phone: Evaluation note* Diagnosis Primary hypertension- Primary Unspecified essential hypertension Obesity, Class II, BMI 35-39.9 Obesity, unspecified Controlled type 2 diabetes mellitus without complication, without long-term current use of insulin (HCC) documented [facility] Diagnosis Urine retention- Primary Retention of urine, unspecified Dysuria documented [facility] this [facility] Diagnosis Essential (primary) hypertension- Primary Unspecified essential hypertension Nonrheumatic aortic valve stenosis Aortic valve disorders Chronic pericarditis, unspecified complication status, unspecified type Stenosis of left renal artery (HCC) Heart failure, unspecified HF chronicity, unspecified heart failure type (HCC) Paroxysmal atrial fibrillation (HCC) Atrial fibrillation [facility] Diagnosis Essential (primary) hypertension- Primary Unspecified essential hypertension documented [facility] this [facility]* Diagnosis Nonrheumatic aortic valve stenosis- Primary Aortic valve disorders Chronic pericarditis, unspecified complication status, unspecified type documented [facility] this [facility]* Diagnosis Essential (primary) hypertension- Primary Unspecified essential hypertension Nonrheumatic aortic valve stenosis Aortic valve disorders Chronic pericarditis, unspecified complication status, unspecified type Paroxysmal atrial fibrillation (HCC) Atrial fibrillation SSS (sick sinus syndrome) (HCC) Sinoatrial node dysfunction documented [facility]* Diagnosis Onset Date Resolution Status Urinary incontinence noneact thomas Dysuria noneactive CLIFFORD (obstructive sleep apnea) acute Elevated troponin acute Chronic pericarditis with effusion chronic Diabetes mellitus, type 2 ch ronic Essential hypertension chron ic History of permanent cardiac pacemaker placement Junob er, 2018 chronic HLD (hyperlipidemia) chronic PAF (paroxysmal atrial fibrillation) chronic Chest pain resolved NSTEMI, initial episode of care resolved Calcification of right breast on mammography acute Left bundle branch block (LBBB) chronic PAF (paroxysmal atrial fibrillation) chronic Sick sinus syndrome chronic [facility] Work Phone: Evaluation note* Diagnosis Cardiomyopathy, unspecified type (HCC) documented [facility] this [facility] Diagnosis Onset Date Resolution Status Calcification of right breast on mammography acute Elevated troponin acute Chronic pericarditis with effusion chronic Essential hypertension chron ic History of permanent cardiac pacemaker placement Octob er, 2018 chronic HLD (hyperlipidemia) chronic Left bundle branch block (LBBB) chronic PAF (paroxysmal atrial fibrillation) chronic Sick sinus syndrome [facility] Work Phone: Evaluation note* Diagnosis AF (paroxysmal atrial fibrillation) (HCC)- Primary Atrial fibrillation Pacemaker Cardiac pacemaker in situ documented [facility] this [facility]* Diagnosis Onset Date Resolution Status Acquired hypothyroidism acut e CLIFFORD (obstructive sleep apnea) acute Uncontrolled hypertension no neactive CKD (chronic kidney disease) stage 3, GFR 30-59 ml/min noneactive Status post revision of tota l replacement of left knee noneactive Recurrent UTI noneactive CLIFFORD (obstructive sleep apnea) acute Obesity chronic [facility] Work Phone: Evaluation note* Diagnosis Onset Date Resolution Status Acquired hypothyroidism acut e CLIFFORD (obstructive sleep apnea) acute Uncontrolled hypertension no neactive CKD (chronic kidney disease) stage 3, GFR 30-59 ml/min noneactive 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 Work Phone: Evaluation note* Diagnosis Heart failure, unspecified HF chronicity, unspecified heart failure type (HCC)- Primary Paroxysmal atrial fibrillation (HCC) Atrial fibrillation Primary hypertension Unspecified essential hypertension [facility] Diagnosis Essential hypertension- Primary Unspecified essential hypertension Severe aortic stenosis Aortic valve disorders Mixed hyperlipidemia Primary hypertension Unspecified essential hypertension Obesity, Class II, BMI 35-39.9 Obesity, unspecified documented [facility] this [facility]* Diagnosis Paroxysmal atrial fibrillation (HCC)- Primary Atrial fibrillation Mixed hyperlipidemia Essential hypertension Unspecified essential hypertension SSS (sick sinus syndrome) (HCC) Sinoatrial node dysfunction Chronic pericarditis, unspecified complication status, unspecified type Cardiac pacemaker Cardiac pacemaker in situ Aortic valve stenosis, etiology of cardiac valve disease unspecified documented [facility] this [facility] Diagnosis Nonrheumatic aortic valve stenosis- Primary Aortic valve disorders documented [facility] this [facility]* Diagnosis Heart failure, unspecified HF chronicity, unspecified heart failure type (HCC)- Primary Paroxysmal atrial fibrillation (HCC) Atrial fibrillation Primary hypertension Unspecified essential hypertension [facility] Diagnosis Nonrheumatic aortic valve stenosis- Primary Aortic valve disorders Aortic valve disorder Aortic valve disorders [facility] Diagnosis Nonrheumatic aortic valve stenosis- Primary Aortic valve disorders Nonrheumatic aortic valve stenosis Aortic valve disorders documented [facility] this encounter [facility]* Diagnosis AF (paroxysmal atrial fibrillation) (HCC)- Primary Atrial fibrillation Nonrheumatic aortic valve stenosis Aortic valve disorders documented [facility] this [facility]* Diagnosis Encounter for preoperative anesthesiology assessment for cardiac surgery- Primary Nonrheumatic aortic valve stenosis Aortic valve disorders documented [facility] this [facility]* Diagnosis Nonrheumatic aortic valve stenosis- Primary Aortic valve disorders Nonrheumatic aortic valve stenosis Aortic valve disorders documented [facility] this [facility]* Diagnosis Aortic valve disorder Aortic valve disorders Nonrheumatic aortic valve stenosis Aortic valve disorders documented in this [facility]* Diagnosis Mixed hyperlipidemia- Primary Paroxysmal atrial fibrillation (HCC) Atrial fibrillation documented [facility] this [facility]* Diagnosis Primary hypertension- Primary Unspecified essential hypertension S/P TAVR (transcatheter aortic valve replacement) Heart valve replaced by other means Stage 4 chronic kidney disease (HCC) Mixed hyperlipidemia Obesity, Class II, BMI 35-39.9 Obesity, unspecified Controlled type 2 diabetes mellitus without complication, without long-term current use of insulin (HCC) documented [facility] this [facility] Diagnosis S/P TAVR (transcatheter aortic valve replacement)- Primary Heart valve replaced by other means documented [facility] this [facility]* Diagnosis SOB (shortness of breath)- Primary Shortness of breath documented [facility] this [facility] Diagnosis Chronic diastolic heart failure (HCC)- Primary Chronic diastolic heart failure Nonrheumatic aortic valve stenosis Aortic valve disorders S/P TAVR (transcatheter aortic valve replacement) Heart valve replaced by other means SSS (sick sinus syndrome) (HCC) Sinoatrial node dysfunction Cardiac pacemaker Cardiac pacemaker in situ Paroxysmal atrial fibrillation (HCC) Atrial fibrillation Primary hypertension Unspecified essential hypertension 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 [place] heart without angina pectoris History of pericarditis Personal history of other diseases of circulatory system Mixed hyperlipidemia Stenosis of left renal artery (HCC) documented [facility] Diagnosis S/P TAVR (transcatheter aortic valve replacement)- Primary Heart valve replaced by other means 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 [place] heart without angina pectoris MCGOVERN (dyspnea on exertion) Other dyspnea and respiratory abnormality Persistent atrial fibrillation (HCC) Atrial fibrillation Primary hypertension Unspecified essential hypertension Mixed hyperlipidemia Chronic pericarditis, unspecified complication status, unspecified type Cardiac pacemaker Cardiac pacemaker in situ SSS (sick sinus syndrome) (HCC) Sinoatrial node dysfunction Chronic diastolic CHF (congestive heart failure) (HCC) Chronic diastolic heart failure 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 [place] heart without angina pectoris [facility] Diagnosis Nonrheumatic aortic valve stenosis- Primary Aortic valve disorders [facility] Diagnosis Bruising- Primary Contusion of unspecified site [facility] Diagnosis SSS (sick sinus syndrome) (HCC)- Primary Sinoatrial node dysfunction [facility] Diagnosis Coronary artery disease due to lipid rich plaque- Primary S/P TAVR (transcatheter aortic valve replacement) Heart valve replaced by other means Cardiac pacemaker Cardiac pacemaker in situ [facility] Diagnosis Primary hypertension- Primary Unspecified essential hypertension 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 ottawa heart without angina pectoris S/P TAVR (transcatheter aortic valve replacement) Heart valve replaced by other means Paroxysmal atrial fibrillation (HCC) Atrial fibrillation SSS (sick sinus syndrome) (HCC) Sinoatrial node dysfunction [facility] Diagnosis Coronary artery disease due to lipid rich plaque- Primary [facility] Diagnosis Serum potassium elevated- Primary Hyperpotassemia [facility]* Diagnosis Chronic diastolic congestive heart failure (HCC)- Primary Chronic diastolic heart failure 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 ottawa heart without angina pectoris S/P TAVR (transcatheter aortic valve replacement) Heart valve replaced by other means SSS (sick sinus syndrome) (HCC) Sinoatrial node dysfunction Primary hypertension Unspecified essential hypertension Mixed hyperlipidemia Persistent atrial fibrillation (HCC) Atrial fibrillation LBBB (left bundle branch block) Other left bundle branch block Cardiac pacemaker Cardiac pacemaker in situ MCGOVERN (dyspnea on exertion) Other dyspnea and respiratory abnormality [facility] Diagnosis Chronic diastolic congestive heart failure (HCC) Chronic diastolic heart failure [facility] Diagnosis Localized edema- Primary Edema Right calf pain [facility] Diagnosis S/P TAVR (transcatheter aortic valve replacement)- Primary Heart valve replaced by other means Acute on chronic heart failure with preserved ejection fraction (HCC) Chronic obstructive pulmonary disease, unspecified COPD type (HCC) Essential (primary) hypertension Unspecified essential hypertension Permanent atrial fibrillation (HCC) Atrial fibrillation Other chronic pain half-way (current) use of anticoagulants Long-term (current) use of anticoagulants Coronary artery disease of ottawa artery of ottawa heart with stable angina pectoris documented in this encounter [facility] course Narrative No data available for this section [facility] Discharge instructions No data available for this section [facility] Discharge instructionsAmbulatory Orders* Gastroenterology Location: None Selected [facility] Work Phone: Hospital Discharge instructionsAdditional Instructions Your workup today did not reveal any signs of acute heart damage or pneumonia. There was concern for a kidney stone but your CAT scan did not show 1 and your urine does not show signs of infection. It did show a gallstone but ultrasound does not show any signs of acute cholecystitis. Please follow-up with your family doctor to discuss a potential HIDA scan to further assess your gallbladder. If pain returns or you have any further concerns please return to the ER for repeat evaluation.[facility] Work Phone: Hospital Discharge instructionsAmbulatory Orders* Prior Authorization Referral - ONC/HEM Location: None Selected [facility] Work Phone: Progress note No data available for this section [facility] note Author Jorge Benavides [facility] Note Date/Time June 16, 2025 12:12pm [facility] [address] [place] [address] OFFICE VISIT Date of Service: 06/16/25 MR#: [id number] Acct: [id number] Name: LYNETTE ANGULO Rep #: [id number] : 1940 Provider: Dr. Luis Benavides MD Age/Sex: 85/F Location: [facility] Status: Signed Intake Vital Signs 05/24/25 09:19 06/16/25 11:38 Height 5 ft 5 ft Weight: 194 lb 8 oz BMI 38.0 BP 110/78 Blood Pressure Location Lt brachial Position Sitting Respiration 18 Pulse 55 L Pulse Source Monitor Temp 97.7 F L Temp Source Temporal Pulse Oximetry (%) 99 Oxygen Delivery Method room air Intake Visit Reasons: Anemia results high. Shortness of breath Chief Complaint: Shortness of breath on exertion Special Duty Nurse Required: No Is patient in pain?: No Allergies benazepril (From Lotensin) Allergy (Verified 05/24/25 10:48) Unknown Iodine and Iodide Containing Produc Allergy (Verified 05/24/25 10:48) Shortness of breath meperidine (From Demerol) Allergy (Verified 05/24/25 10:48) Unknown metformin (From Janumet) Allergy (Verified 05/24/25 10:48) Pain in joints Penicillins Allergy (Verified 05/24/25 10:48) Hives propoxyphene (From Darvon) Allergy (Verified 05/24/25 10:48) Unknown shellfish derived Allergy (Verified 05/24/25 10:48) Shortness of breath sitagliptin (From Janumet) Allergy (Verified 05/24/25 10:48) Pain in joints spironolactone Allergy (Verified 05/24/25 10:48) Unknown rivaroxaban (From Xarelto) Adverse Reaction (Severe, Verified 05/24/25 10:48) PERICARDIAL EFFUSION adhesive Adverse Reaction (Unknown, Verified 05/24/25 10:48) Unknown hydrochlorothiazide Adverse Reaction (Verified 05/24/25 10:48) NEEDS FOLLOW-UP lisinopril Adverse Reaction (Verified 05/24/25 10:48) NEEDS FOLLOW-UP metoprolol Adverse Reaction (Verified 05/24/25 10:48) Shortness of breath simvastatin Adverse Reaction (Verified 05/24/25 10:48) Pain in joints Medications ?Medication ?Instructions ?Recorded ?Confirmed ?Type Oral Appliance #1 ea 03/19/22 06/16/25 Rx latanoprost 0.005 % eye drops 1 drp EACH EYE QHS Check with 03/28/22 06/16/25 History primary doctor [id number] 1 cap PO DAILY suppl ement 12/01/22 06/16/25 History oil 350 mg-400 mg capsule cholecalciferol (vitamin D3) 125 125 mcg PO DAILY #30 tabs 12/11/22 06/16/25 Rx mcg (5,000 unit) tablet ascorbic acid (vitamin C) 500 mg 500 mg PO DAILY 02/0706/16/25 History capsule cranberry 500 mg capsule 500 mg PO DAILY 02/07/23 History vibegron 75 mg tablet 75 mg PO DAILY 02/07/2305/30 History doxazosin 4 mg tablet 4 mg PO QHS #90 tabs 4 06/16/25 Rx carvedilol 25 mg tablet 25 mg PO BID #180 TABLETS 06/16/25 Rx amlodipine 10 mg tablet 10 mg PO DAILY 11/16/2405/30 History apixaban 2.5 mg tablet (Eliquis) 2.5 mg PO BID 5 06/16/25 History cinnamon bark 500 mg capsule 500 mg PO DAILY 11/16/24 06/16/25 History (Cinnamon) isosorbide mononitrate 30 mg 30 mg PO DAILY 11/16/24 0 06/16/25 History tablet,extended release 24 hr olmesartan 20 mg tablet 20 mg PO QDAY 12/09/2406/16 History pantoprazole 40 mg tablet,delayed 40 mg PO DAILY #90 t abs 05/12/25 06/16/25 Rx release cephalexin 250 mg capsule 250 mg PO QHS #90 caps 05/1706/16/25 Rx estradiol 0.01% (0.1 mg/gram) 1 g vaginal 3XW 3 months #42.5 05/17/25 06/16/25 Rx vaginal cream grams metolazone 2.5 mg tablet 2.5 mg PO ONCE #1 TAB 06/16/25 Rx clopidogrel 75 mg tablet 75 mg PO DAILY #90 tabs 04/3006/16/25 Rx glimepiride 2 mg tablet 2 mg PO DAILY blood sugar #9 0 tabs 05/20/25 06/16/25 Rx levothyroxine 100 mcg tablet 100 mcg PO DAILY #90 tabs 05/23/25 06/16/25 Rx nitrofurantoin 100 mg PO BID #14 caps 05/2306/16/25 Rx monohydrate/macrocrystals 100 mg capsule (Macrobid) atorvastatin 20 mg tablet 20 mg PO QDAY 05/24/2506/16 History ferrous sulfate 325 mg (65 mg 325 mg PO BID #60 tabs 0 06/02/25 06/16/25 Rx iron) tablet (Iron (ferrous sulfate)) torsemide 20 mg tablet 10 mg PO QAM 06/16/25 Histo ry Have you fallen in the past year?: No Nurse's Note: Pt is here as Dr. nice told her to follow w/ pcp for anemia. pt is taking iron but doesn't see much improvement and has had more frequent fatigue and SOB. pt has been seen recently at pulmonology and [facility]. Pt was referred to Dr. Avitia and has not yet heard from them. the referral isscanned into chart [facility] Medical History Constipation Vaginal atrophy Nocturnal enuresis Urge incontinence Overactive bladder Aortic stenosis Stage 4 chronic kidney disease Breast calcification, right Anxiety Hypothyroidism Diabetes Kidney disease Sleep apnea Atrial fibrillation Secondary pulmonary arterial hypertension Sick sinus syndrome Chronic pericarditis with effusion Left bundle branch block (LBBB) Essential hypertension Bradycardia Physical debility Gout Glaucoma Chronic renal failure, stage 3a Osteoarthritis Diabetes mellitus, type 2 Pericardial effusion (08/23/20) LVH (left ventricular hypertrophy) Musculoskeletal back pain PAF (paroxysmal atrial fibrillation) Hemoptysis CLIFFORD (obstructive sleep apnea) Hypersomnolence Nonrheumatic aortic valve stenosis Carotid bruit HLD (hyperlipidemia) Abnormal cardiac enzyme level Hyperthyroidism Surgical History Heart valve replaced S/P TAVR (transcatheter aortic valve replacement) S/P skin biopsy History of permanent cardiac pacemaker placement (06/2018) 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 History of total hysterectomy History of tonsillectomy and adenoidectomy History of parathyroidectomy (2009) History of thyroidectomy, total (2009) Family History Mother Cancer Uterine Thyroid disorder Father Cancer lung Hypertension Son Cancer esophageal Social History household members: spouse number of children: 2 current occupational status: retired current occupation: worked in the [employer] at [employer] Smoking Status: Never smoker Electronic Cigarette Use: not used alcohol intake: never substance use type: does not use caffeine: No do you feel safe at home: Yes HPI HPI Chief Complaint: Shortness of breath on exertion Details: LYNETTE ANGULO, is a 85 F who presents to the office today for an acute visit. She has concerns about shortness of breath. This has been a chronic problem, however, it has been progressively getting worse. 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 She reports she had an echo yesterday which showed a worsening diastolic dysfunction. She also saw her water tanker driver yesterday who decreased her diuretic due to worsening kidney function. She was counseled on fluid restriction and monitoring her salt intake. She noted persisted iron deficiencydespite being on oral iron twice daily and she was referred her to hematology for further assessment on whether an iron infusion vs. SILVESTRE would be appropriate. She is supposed to do repeat blood work next week. She denies any new symptoms. ROS Const Constitutional: Positive for fatigue and weight change (7 pound weight loss); No body ache, chills, excessive sweating, fever(s), frequent falls, headache(s),snoring, weakness, sleep problems or change in appetite Eyes Eyes: No blurry vision, change in vision, eye pain or Light sensitivity ENT ENT: No abnormal hearing, ear or mastoid pain, tinnitus, nasal congestion, headache(s), neck pain or sore throat Resp Respiratory: Positive for shortness of breath; No cough, snoring or wheezing Cardio Cardiology: Positive for lightheadedness (occasional) and other (leg swelling); No chest pain at rest, chest pain with exertion, excessive sweating, shortness of breath, dyspnea on exertion, orthopnea or palpitations Gastro GI: Positive for constipation; No abdominal pain, change in bowel habits, cramping, diarrhea, nausea/dyspepsia or vomiting Genitourinary-Female: No difficulty urinating, burning urination, painful urination, urinary incontinence, urinary frequency, abnormal vaginal bleeding orpelvic pain Musc Musculoskeletal: No abnormal gait, joint pain, back pain, limited range of motion, neck pain, numbness or tingling Skin Skin: No dry skin, redness, lesions, itchy eyes, rash or wounds Neuro Neurology: No abnormal gait, abnormal hearing, dizziness, weakness, frequent falls, headache(s), memory loss, numbness, tingling or fainting Psych Psychiatric: No anxiety, No change in appetite, No depression, No memory loss and No Thoughts of harming yourself/Others Endo Endocrine: Positive for fatigue and weight change (7 pound weight loss); No cold intolerance, excessive sweating, flushing, heat intolerance, increased thirst/drinking or increased hunger Aller/Imm Allergy/Immunologic: No itchy eyes, seasonal allergy symptoms, hives or wheezing Carloz/Lymp Hematologic/Lymphatic: No easy bleeding, easy bruising, enlarged lymph nodes or other Exam Const General: cooperative, healthy appearing, no acute distress, well developed, not diaphoretic and not ill appearing Nutritional Appearance: well nourished Orientation: alert and oriented x3 Limitations: mental status not altered [facility] Head: normal to inspection, normocephalic and atraumatic Ears: hearing grossly normal bilaterally Face and sinus: normal facial exam Mouth: oral mucosae normal and moist mucous membranes Teeth and gingiva: multiple restorations Throat: posterior oropharynx normal Eyes Conjunctivae: conjunctivae normal Sclera: sclerae normal Pupils: PERRL Chest Chest palpation & inspection: normal inspection of the chest Resp Effort & Inspection: normal respiratory effort, able to speak in complete sentences, no audible wheezes and no cough Auscultation: Bilateral: Clear to Auscultation Cardio Rate: regular rate Rhythm: regular rhythm Heart Sounds: S1 normal, S2 normal, murmur systolic soft and other (distant heart sounds) Other: Pacemaker in place GI Inspection: non-distended Auscultation: normal bowel sounds Palpation: soft, no hepatosplenomegaly and nontender Skin General: no rashes or lesions noted and dry skin Wounds: no wounds Neuro General: patient alert and patient oriented x3 Cranial Nerves: PERRL Speech: speech normal Extrem General: normal to inspection and no edema Other: Compression stockings in place Psych Appearance: grossly normal Affect: normal affect Attitude: cooperative Coding Level of Care Code Off vis,est,level 4 Diagnoses Anemia, unspecified type D64.9 Anemia type: unspecified type Shortness of breath R06.02 Diastolic dysfunction I51.89 CKD (chronic kidney disease) stage 4, GFR 15-29 ml/min N18.4 Time Spent (min) 36 Assessment and Plan Assessment and Plan (1) Anemia: Status: Acute Qualifiers: Anemia type: unspecified type Qualified Code(s): D64.9 - Anemia, unspecified Plan: It looks like the patient may have a mixed type anemia from iron deficiency and anemia of chronic disease. Her hemoglobin has remained stable since October, however, with her taking iron supplements twice daily, there is a question on ifshe would benefit from further treatment. Her water tanker driver has referred her to hematology to be assessed for either iron infusions vs. SILVESTRE treatments, which isreasonable. She has had a negative fecal occult blood test in April. Patient provided the phone number for hematology to call and schedule. Will follow up on their findings and recommendations. (2) Shortness of breath: Status: Acute Plan: Likely multi-factorial. Discussed that her anemia, may be contributing to her symptoms, however, she has had shortness of breath for several years prior to her hemoglobin dropping. Reviewed her echo results with her as discussed below. Will continue to monitor and follow up on her specialist's findings and recommendations. (3) Diastolic dysfunction: Plan: Echo showed stage 3 diastolic dysfunction, up from stage 1 last March. Discussedthe fluid restriction as recommended as well as daily weights, monitoring salt intake and taking medications as prescribed. Her diuretic was cut back due to her worsening kidney function, so will need to monitor for worsening fluid overload. (4) CKD (chronic kidney disease) stage 4, GFR 15-29 ml/min: Plan: Reviewed recent office visit with her water tanker driver. Repeat labs ordered for next week. Will follow up on findings and recommendations. The patient is here for an acute visit. Plan as above. Medications reviewed with the patient. Routine follow up already scheduled. The patient was instructed to call with any concerns or questions before then and they were in agreement. I spent a total of 36 minutes on the date of the service which included preparing to see the patient, [id number] patient care, completing clinical documentation, obtaining and/or reviewing separately obtained history. This excludes separately reportable services. Clinical Quality Measures Falls Risk Screening/Assistive Devices Have you fallen in the past year?: No 06/16/25 1430 <Electronically signed by Jorge gimenez MD> Date _ Jorge Benavides MD Cosigner Signature: Date (if applicable) CC: ~ [facility] Work Phone: Progreli note Author Kymberly Leger [facility] Note Date/Time June 21, 2025 12:13pm [facility] [address], [address] [place] [id number] OFFICE VISIT Date of Service: 06/21/25 MR#: [id number] Acct: [id number] Name: LYNETTE ANGULO Rep #: [id number] : 1940 Provider: Dr. Dung Leger MD Age/Sex: 85/F Location: [facility] Status: Signed Intake Vital Signs 05/17/25 11:31 06/16/25 11:38 06/21/25 11:59 Height 5 ft 5 ft 5 ft Weight: 194 lb 8 oz BMI 38.0 BP 132/68 H Pulse 61 Intake Visit Reasons: med and UTI f/u Chief Complaint: medication and uti follow up Special Duty Nurse Required: No Accompanied by: self Is patient in pain?: No Allergies benazepril (From Lotensin) Allergy (Verified 06/21/25 11:56) Unknown Iodine and Iodide Containing Produc Allergy (Verified 06/21/25 11:56) Shortness of breath meperidine (From Demerol) Allergy (Verified 06/21/25 11:56) Unknown metformin (From Janumet) Allergy (Verified 06/21/25 11:56) Pain in joints Penicillins Allergy (Verified 06/21/25 11:56) Hives propoxyphene (From Darvon) Allergy (Verified 06/21/25 11:56) Unknown shellfish derived Allergy (Verified 06/21/25 11:56) Shortness of breath sitagliptin (From Janumet) Allergy (Verified 06/21/25 11:56) Pain in joints spironolactone Allergy (Verified 06/21/25 11:56) Unknown rivaroxaban (From Xarelto) Adverse Reaction (Severe, Verified 06/21/25 11:56) PERICARDIAL EFFUSION adhesive Adverse Reaction (Unknown, Verified 06/21/25 11:56) Unknown hydrochlorothiazide Adverse Reaction (Verified 06/21/25 11:56) NEEDS FOLLOW-UP lisinopril Adverse Reaction (Verified 06/21/25 11:56) NEEDS FOLLOW-UP metoprolol Adverse Reaction (Verified 06/21/25 11:56) Shortness of breath simvastatin Adverse Reaction (Verified 06/21/25 11:56) Pain in joints Medications ?Medication ?Instructions ?Recorded ?Confirmed ?Type Oral Appliance #1 ea 03/19/22 06/16/25 Rx latanoprost 0.005 % eye drops 1 drp EACH EYE QHS Check with 03/28/22 06/16/25 History primary doctor -sjq-[id number]-other [id number] 1 cap PO DAILY suppl ement 12/01/22 06/21/25 History oil 350 mg-400 mg capsule cholecalciferol (vitamin D3) 125 125 mcg PO DAILY #30 tabs 12/11/22 06/16/25 Rx mcg (5,000 unit) tablet ascorbic acid (vitamin C) 500 mg 500 mg PO DAILY 02/0706/16/25 History capsule cranberry 500 mg capsule 500 mg PO DAILY 02/07/23 History doxazosin 4 mg tablet 4 mg PO QHS #90 tabs 4 06/16/25 Rx carvedilol 25 mg tablet 25 mg PO BID #180 TABLETS 06/16/25 Rx amlodipine 10 mg tablet 10 mg PO DAILY 11/16/2405/30 History apixaban 2.5 mg tablet (Eliquis) 2.5 mg PO BID 5 06/16/25 History cinnamon bark 500 mg capsule 500 mg PO DAILY 11/16/24 06/16/25 History (Cinnamon) isosorbide mononitrate 30 mg 30 mg PO DAILY 11/16/24 0 06/16/25 History tablet,extended release 24 hr olmesartan 20 mg tablet 20 mg PO QDAY 12/09/2406/21 History pantoprazole 40 mg tablet,delayed 40 mg PO DAILY #90 t abs 05/12/25 06/21/25 Rx release cephalexin 250 mg capsule 250 mg PO QHS #90 caps 05/1706/16/25 Rx estradiol 0.01% (0.1 mg/gram) 1 g vaginal 3XW 3 months #42.5 05/17/25 06/16/25 Rx vaginal cream grams clopidogrel 75 mg tablet 75 mg PO DAILY #90 tabs 04/3006/16/25 Rx glimepiride 2 mg tablet 2 mg PO DAILY blood sugar #9 0 tabs 05/20/25 06/16/25 Rx levothyroxine 100 mcg tablet 100 mcg PO DAILY #90 tabs 05/23/25 06/16/25 Rx atorvastatin 20 mg tablet 20 mg PO QDAY 05/24/2506/16 History ferrous sulfate 325 mg (65 mg 325 mg PO BID #60 tabs 0 06/02/25 06/16/25 Rx iron) tablet (Iron (ferrous sulfate)) torsemide 20 mg tablet 10 mg PO QAM 06/16/25 History BIPAP -Bilevel Positive Airway 06/21/25 History Pressure ([facility] USE ONLY) Have you fallen in the past year?: No Nurse's Note: having heart issues and anemia now. trouble with kindeys as well was told to stop Bladder scan PVR 2cc PFSH Medical History Constipation Vaginal atrophy Nocturnal enuresis Urge incontinence Overactive bladder Aortic stenosis Stage 4 chronic kidney disease Breast calcification, right Anxiety Hypothyroidism Diabetes Kidney disease Sleep apnea Atrial fibrillation Secondary pulmonary arterial hypertension Sick sinus syndrome Chronic pericarditis with effusion Left bundle branch block (LBBB) Essential hypertension Bradycardia Physical debility Gout Glaucoma Chronic renal failure, stage 3a Osteoarthritis Diabetes mellitus, type 2 Pericardial effusion (08/23/20) LVH (left ventricular hypertrophy) Musculoskeletal back pain PAF (paroxysmal atrial fibrillation) Hemoptysis CLIFFORD (obstructive sleep apnea) Hypersomnolence Nonrheumatic aortic valve stenosis Carotid bruit HLD (hyperlipidemia) Abnormal cardiac enzyme level Hyperthyroidism Surgical History Heart valve replaced S/P TAVR (transcatheter aortic valve replacement) S/P skin biopsy History of permanent cardiac pacemaker placement (06/2018) 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 History of total hysterectomy History of tonsillectomy and adenoidectomy History of parathyroidectomy (2009) History of thyroidectomy, total (2009) Family History Mother Cancer Uterine Thyroid disorder Father Cancer lung Hypertension Son Cancer esophageal Social History household members: spouse number of children: 2 current occupational status: retired current occupation: worked in the [employer] at [employer] Smoking Status: Never smoker Electronic Cigarette Use: not used alcohol intake: never substance use type: does not use caffeine: No do you feel safe at home: Yes HPI HPI Urology Chief Complaint: medication and uti follow up Details: LYNETTE ANGULO, is a 85 F. She is here for medication follow up. She has been taking Gemtesa 75mg daily. She was told to stop the Gemtesa by the water tanker driver. She has been told she has worsening diastolic dysfunction of the heart. They decreased her diuretic and told her to decrease fluid intake. She feels the changes with the infection prevention have helped. She is not feeling infected today. ROS Const Constitutional: No chills, fatigue, fever(s), headache(s), night sweats, weakness, weight change, abnormal sleep pattern or change in appetite Eyes Eyes: No change in vision ENT ENT: No headache(s) or dry mouth Resp Respiratory: Positive for shortness of breath; No cough, chest congestion or wheezing Cardio Cardiology: Positive for shortness of breath and other (pedal edema); No chest pain at rest, irregular heart rhythm or lightheadedness Gastro GI: Positive for other (No nausea.); No abdominal pain, change in bowel habits, constipation, diarrhea or vomiting Musc Musculoskeletal: No abnormal gait Skin Skin: No yellowing of the eye, lesions, itchy eyes, rash or skin ulcer Neuro Neurology: No abnormal gait, confusion, dizziness, weakness, headache(s) or memory loss Psych Psychiatric: No abnormal sleep pattern, No change in appetite, No confusion and No memory loss Endo Endocrine: No fatigue, increased thirst/drinking or weight change Aller/Imm Allergy/Immunologic: No itchy eyes or wheezing Carloz/Lymp Hematologic/Lymphatic: No easy bleeding, easy bruising or enlarged lymph nodes Exam Const General: cooperative, healthy appearing, comfortable and no acute distress [facility] Head: normocephalic and atraumatic Ears: hearing grossly normal bilaterally and external ears normal Nose: external nose normal Eyes General: appearance normal, both eyes and all related structures Neck Neck: normal visual inspection and trachea midline Chest Chest palpation & inspection: normal inspection of the chest Resp Effort & Inspection: normal respiratory effort, able to speak in complete sentences and symmetric chest movement Cardio Rate: regular rate GI Inspection: normal to inspection Palpation: soft and nontender General: No CVA tenderness Skin General: no rashes or lesions noted Neuro General: patient alert, patient awake, patient oriented x3 and CN's II-XI intactbilaterally Extrem General: normal to inspection Psych Appearance: grossly normal and well kempt Mental Status: mental status grossly normal Results POC UA Auto w/o Microscopy Office Urine Color Last Edit by Delfina Mccoy on 06/21/25 12:03 Office Urine Clarity Last Edit by Delfina Mccoy on 06/21/25 12:03 Office Urine Glucose Negative Last Edit by Delfina Mccoy on 06/21/25 12:0 3 Office Urine Ketones Negative Last Edit by Delfina Mccoy on 06/21/25 12:0 3 Office Urine Bilirubin Negative Last Edit by Delfina Mccoy on 06/21/25 12 :03 Office Urine Urobilinogen 0.2 mg/dL Last Edit by Delfina Mccoy on 5 12:03 Off Ur Spec [place] 1.010 Last Edit by Delfina Mccoy on 06/21/25 12:03 Office Urine pH 5.5 Last Edit by Delfina Mccoy on 06/21/25 12:03 Office Urine Protein Negative Last Edit by Delfina Mccoy on 06/21/25 12:0 3 Office Urine Blood Negative Last Edit by Delfina Mccoy on 06/21/25 12:03 Office Urine Blood Hemolyzed Negative Last Edit by Delfina Mccoy on 06/21 12:03 Office Urine Nitrate Negative Last Edit by Delfina Mccoy on 06/21/25 12:0 3 Off Ur Leukocytes Negatve Last Edit by Delfina Mccoy on 06/21/25 12:03 Coding Level of Care Code Off vis,est,level 3 Diagnoses Chronic UTI N39.0 Overactive bladder N32.81 Urge incontinence N39.41 Nocturnal enuresis N39.44 Vaginal atrophy N95.2 Constipation K59.00 Diabetes E11.9 Assessment and Plan Assessment and Plan (1) Chronic UTI: Status: Chronic (2) Overactive bladder: Status: Acute (3) Urge incontinence: Status: Acute (4) Nocturnal enuresis: Status: Acute (5) Vaginal atrophy: Status: Acute (6) Constipation: Status: Acute (7) Diabetes: Status: Acute Orders: Orders POC UA Auto w/o Microscopy Today N39.41 - Urge incontinence Plan continue infection prevention with estrogen cream and nightly cephalexin no Gemtesa continue level one management Plan Details Follow Up: 6 mos (UTI f/u) Clinical Quality Measures Falls Risk Screening/Assistive Devices Have you fallen in the past year?: No 06/21/25 1251 <Electronically signed by Kymberly Leger MD> Date _ Kymberly Leger MD Cosigner Signature: Date (if applicable) CC: ~ [facility] Work Phone: Progress note Author Berry Avitia [facility] Note Date/Time July 04, 2025 2: 30pm [facility] [address] [place] [address] OFFICE VISIT Date of Service: 07/04/25 1353 MR#: [id number] Acct: [id number] Name: LYNETTE ANGULO Rep #: [id number] : 1940 From: Berry ravi MD Age/Sex: 85/F [place] [facility] Status: Signed HPI Subjective Date of Service 07/04/25 Chief Complaint Fatigue, anemia History of Present Illness 85-year-old female with multiple chronic medical problems (see under past medical history) and normocytic anemia. She is unaware of any external bleedingshe was started on an oral iron supplement in May 2025 and this is when she noted black discoloration of her stools. [facility] Medical History (Updated 07/04/25 @ 14:[address] Berry Avitia MD) Iron deficiency anemia Chronic renal failure Anemia Constipation Vaginal atrophy Nocturnal enuresis Urge incontinence Overactive bladder Aortic stenosis Stage 4 chronic kidney disease Breast calcification, right Anxiety Hypothyroidism Diabetes Kidney disease Sleep apnea Atrial fibrillation Secondary pulmonary arterial hypertension Sick sinus syndrome Chronic pericarditis with effusion Left bundle branch block (LBBB) Essential hypertension Bradycardia Physical debility Gout Glaucoma Chronic renal failure, stage 3a Osteoarthritis Diabetes mellitus, type 2 Pericardial effusion (08/23/20) LVH (left ventricular hypertrophy) Musculoskeletal back pain PAF (paroxysmal atrial fibrillation) Hemoptysis CLIFFORD (obstructive sleep apnea) Hypersomnolence Nonrheumatic aortic valve stenosis Carotid bruit HLD (hyperlipidemia) Abnormal cardiac enzyme level Hyperthyroidism Surgical History Heart valve replaced S/P TAVR (transcatheter aortic valve replacement) S/P skin biopsy History of permanent cardiac pacemaker placement (06/2018) 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 History of total hysterectomy History of tonsillectomy and adenoidectomy History of parathyroidectomy (2010) History of thyroidectomy, total (2009) Family History Mother Cancer Uterine Thyroid disorder Father Cancer lung Hypertension Son Cancer esophageal Social History household members: spouse number of children: 2 current occupational status: retired current occupation: worked in the [employer] at [employer] Smoking Status: Never smoker Electronic Cigarette Use: not used alcohol intake: never substance use type: does not use caffeine: No do you feel safe at home: Yes ROS Constitutional Constitutional: Reports systems reviewed and no addt'l complaints, except as documented, fatigue and other Details: Her weight fluctuates depending on the amount of edema she has ; Denies anorexia or weight loss Eyes Eyes: Reports systems reviewed and no addt'l complaints, except as documented; Denies change in vision ENT HEENT: Reports systems reviewed and no addt'l complaints, except as documented; Denies bleeding gums, epistaxis or mouth lesions Cardiovascular Cardiovascular: Reports systems reviewed and no addt'l complaints, except as documented and edema; Denies chest pain with activity Respiratory/Chest Respiratory/Chest: Reports systems reviewed and no addt'l complaints, except as documented, snoring and other Details: Uses CPAP ; Denies cough or dyspnea Gastrointestinal Gastrointestinal: Reports systems reviewed and no addt'l complaints, except as documented and as per HPI; Denies change in bowel habits, dysphagia, hematochezia or hemorrhoids Genitourinary Genitourinary: Reports systems reviewed and no addt'l complaints, except as documented; Denies hematuria Musculoskeletal Musculoskeletal: Reports systems reviewed and no addt'l complaints, except as documented; Denies back pain Integumentary Integumentary: Reports systems reviewed and no addt'l complaints, except as documented; Denies bleeding lesions Neurologic Neurologic: Reports systems reviewed and no addt'l complaints, except as documented; Denies focal weakness Psychiatric Psychiatric: Reports systems reviewed and no addt'l complaints, except as documented Endocrine Endocrinology: Reports systems reviewed and no addt'l complaints, except as documented and other Details: Diabetes for over 10 years Hematologic/Lymphatic Hematologic/Lymphatic: Reports anemia and easy bruising; Denies easy bleeding orlymphadenopathy Allergic/Immunologic Allergic/Immunologic: Reports systems reviewed and no addt'l complaints, except as documented Intake Vital Signs 05/24/25 09:19 06/16/25 11:38 06/21/25 11:59 07/04/25 13:54 07/04/25 14:01 Height 5 ft 5 ft 5 ft 5 ft 5 ft BP 120/78 Blood Pressure Location Lt brachial Position Sitting Respiration 18 Pulse 65 Pulse Source Monitor Temp 97.1 F L Temperature Source Temporal Artery Pulse Oximetry (%) 95 Oxygen Delivery Method room air Intake Is patient in pain?: Yes (right heel ) Allergies benazepril (From Lotensin) Allergy (Verified 07/04/25 13:57) Unknown Iodine and Iodide Containing Produc Allergy (Verified 07/04/25 13:57) Shortness of breath meperidine (From Demerol) Allergy (Verified 07/04/25 13:57) Unknown metformin (From Janumet) Allergy (Verified 07/04/25 13:57) Pain in joints Penicillins Allergy (Verified 07/04/25 13:57) Hives propoxyphene (From Darvon) Allergy (Verified 07/04/25 13:57) Unknown shellfish derived Allergy (Verified 07/04/25 13:57) Shortness of breath sitagliptin (From Janumet) Allergy (Verified 07/04/25 13:57) Pain in joints spironolactone Allergy (Verified 07/04/25 13:57) Unknown rivaroxaban (From Xarelto) Adverse Reaction (Severe, Verified 07/04/25 13:57) PERICARDIAL EFFUSION adhesive Adverse Reaction (Unknown, Verified 07/04/25 13:57) Unknown hydrochlorothiazide Adverse Reaction (Verified 07/04/25 13:57) NEEDS FOLLOW-UP lisinopril Adverse Reaction (Verified 07/04/25 13:57) NEEDS FOLLOW-UP metoprolol Adverse Reaction (Verified 07/04/25 13:57) Shortness of breath simvastatin Adverse Reaction (Verified 07/04/25 13:57) Pain in joints Medications ?Medication ?Instructions ?Recorded ?Confirmed ?Type Oral Appliance #1 ea 03/19/22 07/04/25 Rx latanoprost 0.005 % eye drops 1 drp EACH EYE QHS Check with 03/28/22 07/04/25 History primary doctor -iae-tav-other [id number] 1 cap PO DAILY suppl ement 12/01/22 07/04/25 History oil 350 mg-400 mg capsule cholecalciferol (vitamin D3) 125 125 mcg PO DAILY #30 tabs 12/11/22 07/04/25 Rx mcg (5,000 unit) tablet ascorbic acid (vitamin C) 500 mg 500 mg PO DAILY 02/0707/04/25 History capsule cranberry 500 mg capsule 500 mg PO DAILY 02/07/2303/23 History doxazosin 4 mg tablet 4 mg PO QHS #90 tabs 4 07/04/25 Rx carvedilol 25 mg tablet 25 mg PO BID #180 TABLETS 07/04/25 Rx amlodipine 10 mg tablet 10 mg PO DAILY 11/16/24 1003/23 History apixaban 2.5 mg tablet (Eliquis) 2.5 mg PO BID 5 07/04/25 History cinnamon bark 500 mg capsule 500 mg PO DAILY 11/16/24 07/04/25 History (Cinnamon) isosorbide mononitrate 30 mg 30 mg PO DAILY 11/16/24 1 History tablet,extended release 24 hr olmesartan 20 mg tablet 20 mg PO QDAY 12/09/2407/04 History pantoprazole 40 mg tablet,delayed 40 mg PO DAILY #90 t abs 05/12/25 07/04/25 Rx release estradiol 0.01% (0.1 mg/gram) 1 g vaginal 3XW 3 months #42.5 05/17/25 07/04/25 Rx vaginal cream grams clopidogrel 75 mg tablet 75 mg PO DAILY #90 tabs 04/3007/04/25 Rx glimepiride 2 mg tablet 2 mg PO DAILY blood sugar #9 0 tabs 05/20/25 07/04/25 Rx levothyroxine 100 mcg tablet 100 mcg PO DAILY #90 tabs 05/23/25 07/04/25 Rx atorvastatin 20 mg tablet 20 mg PO QDAY 05/24/2507/04 History ferrous sulfate 325 mg (65 mg 325 mg PO BID #60 tabs 0 06/02/25 07/04/25 Rx iron) tablet (Iron (ferrous sulfate)) torsemide 20 mg tablet 10 mg PO QAM 06/16/25 History BIPAP -Bilevel Positive Airway 06/21/25 07/04/25 Hist ory Pressure ([facility] USE ONLY) Have you fallen in the past year?: No Central Venous Access Central Venous Access: No Laboratory Tests 11/21/23 10/20/24 11/16/24 17:20 13:58 16:35 Hgb 13.3 9.6 L Creatinine 2.13 H Est GFR (MDRD) Non-Af 24 L Iron Saturation Erythropoietin Vitamin B12 05/31/25 06/08/25 06/29/25 11:54 14:27 12:44 Hgb 9.6 L Creatinine 1.87 H Est GFR (MDRD) Non-Af 26 L Iron Saturation 7.0 L Erythropoietin 88.1 H Vitamin B12 349 Exam Physical Exam Const alert, oriented x3 and no apparent distress General Appearance: frail Nutritional Appearance: obese HEENT Face and Sinus: normal facial exam Mouth: oral and palatal mucosa normal Eyes General Eye: normal appearance of both eyes Neck no lymphadenopathy and no JVD Chest Chest: pacemaker Resp clear to auscultation bilaterally Cardio regular rate and regular rhythm Heart Sounds: murmur GI soft to palpation, non-tender and non-distended Back/Spine no thoracic nor lumbar tenderness Extremity General Extremity: edema bilateral lower extremity Details: moderate; Negative for clubbing or cyanosis Skin no rashes or lesions noted Neuro oriented x3, CN's II-XII intact bilaterally, moves all extremities and no focal motor deficits Neuro Narrative: Patient was seen and examined in a wheelchair Coordination / Balance: [id number]-[id number]-[id number] test normal Speech: speech normal Gait (Neuro): unable to assess gait Psych mental status grossly normal Coding Level of Care Code Off vis,new,level 4 Exam Problem Focused Diagnoses Anemia, unspecified type D64.9 Anemia type: unspecified type Chronic renal failure, stage 4 (severe) N18.4 Chronic kidney disease stage: stage 4 (GFR 15-29) Iron deficiency anemia due to chronic blood loss D50.0 Iron deficiency anemia type: chronic blood loss Assessment and Plan Assessment and Plan (1) Anemia: Status: Chronic Qualifiers: Anemia type: unspecified type Qualified Code(s): D64.9 - Anemia, unspecified (2) Chronic renal failure: Status: Chronic Qualifiers: Chronic kidney disease stage: stage 4 (GFR 15-29) Qualified Code(s): N18.4 - Chronic kidney disease, stage 4 (severe) (3) Iron deficiency anemia: Status: Chronic Qualifiers: Iron deficiency anemia type: chronic blood loss Qualified Code(s): D50.0 - Iron deficiency anemia secondary to blood loss (chronic) Orders: Orders CBC W/Diff, Automated Today D64.9 - Anemia, unspecified Retic Panel Count Today D64.9 - Anemia, unspecified Ferritin Today D64.9 - Anemia, unspecified Iron+Iron Binding Capacity Today D64.9 - Anemia, unspecified Basic Metabolic Profile (BMP) Today D64.9 - Anemia, unspecified Plan 85-year-old female with multiple chronic medical problems and normocytic anemia. She is unaware of any external bleeding and she was started on an oral iron supplement in May 2025. Her anemia is likely multifactorial including anemia of chronic kidney failure (stage IV) plus or minus chronic iron deficiency anemia on oral supplement. Chronic comorbid conditions: Diabetes over 10 years duration, chronic renal failure, valvular heart disease, coronary artery disease, has a pacemaker, degenerative joint disease, obesity, obstructive sleep apnea on CPAP, hypothyroidism status post thyroid surgery Plan: 1. Update CBC, basic metabolic panel and iron profile. 2. Follow-up in 1 week and assessment whether she is a candidate for IV iron tosupplement her oral intake and oral erythrocyte stimulating agent therapy. Patient was seen with her , impression and plan discussed. Berry Avitia MD Data Operations Director, [facility] Divisions of Medical Oncology & Hematology Department of Internal Medicine [place] [address] This note was generated using a voice recognition system software. Although itwas reviewed by the author prior to finalization, it may still contain incorrectwords, spelling, and punctuation that were not noted when reviewing prior to saving. If a clinically significant typo or inaccurately typed phrase is noted, please notify the author. Clinical Quality Measures Falls Risk Screening/Assistive Devices Have you fallen in the past year?: No 07/04/25 4105 <Electronically signed by Berry mcclure MD> Date _ Berry Avitia MD Cosigner Signature: Date (if applicable) CC: Dr. Jorge Benavides MD; Dr. Ros Nice, DO ~ [facility] Work Phone: Progress note Author Berry Avitia [facility] Note Date/Time July 11, 2025 9 :08am [facility] [address] [address] OFFICE VISIT Date of Service: 07/11/2545 MR#: [id number] Acct: [id number] Name: LYNETTE ANGULO Rep #: [id number] : 1940 From: Berry ravi MD Age/Sex: 85/F Location[place] [facility] Status: Signed HPI Subjective Date of Service 07/11/25 Chief Complaint Fatigue, anemia History of Present Illness 85-year-old female with multiple chronic medical problems (see under past medical history) and normocytic anemia. She is unaware of any external bleedingshe was started on an oral iron supplement in May 2025 and this is when she noted black discoloration of her stools. [facility] Medical History Iron deficiency anemia Chronic renal failure Anemia Constipation Vaginal atrophy Nocturnal enuresis Urge incontinence Overactive bladder Aortic stenosis Stage 4 chronic kidney disease Breast calcification, right Anxiety Hypothyroidism Diabetes Kidney disease Sleep apnea Atrial fibrillation Secondary pulmonary arterial hypertension Sick sinus syndrome Chronic pericarditis with effusion Left bundle branch block (LBBB) Essential hypertension Bradycardia Physical debility Gout Glaucoma Chronic renal failure, stage 3a Osteoarthritis Diabetes mellitus, type 2 Pericardial effusion (08/23/20) LVH (left ventricular hypertrophy) Musculoskeletal back pain PAF (paroxysmal atrial fibrillation) Hemoptysis CLIFFORD (obstructive sleep apnea) Hypersomnolence Nonrheumatic aortic valve stenosis Carotid bruit HLD (hyperlipidemia) Abnormal cardiac enzyme level Hyperthyroidism Surgical History Heart valve replaced S/P TAVR (transcatheter aortic valve replacement) S/P skin biopsy History of permanent cardiac pacemaker placement (06/2018) 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 History of total hysterectomy History of tonsillectomy and adenoidectomy History of parathyroidectomy (2009) History of thyroidectomy, total (2009) Family History Mother Cancer Uterine Thyroid disorder Father Cancer lung Hypertension Son Cancer esophageal Social History household members: spouse number of children: 2 current occupational status: retired current occupation: worked in the [employer] at [employer] Smoking Status: Never smoker Electronic Cigarette Use: not used alcohol intake: never substance use type: does not use caffeine: No do you feel safe at home: Yes ROS ROS Narrative See July 04, 2025 Intake Vital Signs 07/04/25 14:01 07/08/25 14:51 07/11/25 08:47 Height 5 ft 5 ft 5 ft Weight: 88.451 kg BMI 38.0 BP 119/71 Blood Pressure Location Lt radial Position Sitting Respiration 16 Pulse 63 Pulse Source Monitor Temp 97.0 F L Temperature Source Temporal Artery Pulse Oximetry (%) 95 Oxygen Delivery Method room air Intake Is patient in pain?: No Allergies benazepril (From Lotensin) Allergy (Verified 07/11/25 08:51) Unknown Iodine and Iodide Containing Produc Allergy (Verified 07/11/25 08:51) Shortness of breath meperidine (From Demerol) Allergy (Verified 07/11/25 08:51) Unknown metformin (From Janumet) Allergy (Verified 07/11/25 08:51) Pain in joints Penicillins Allergy (Verified 07/11/25 08:51) Hives propoxyphene (From Darvon) Allergy (Verified 07/11/25 08:51) Unknown shellfish derived Allergy (Verified 07/11/25 08:51) Shortness of breath sitagliptin (From Janumet) Allergy (Verified 07/11/25 08:51) Pain in joints spironolactone Allergy (Verified 07/11/25 08:51) Unknown rivaroxaban (From Xarelto) Adverse Reaction (Severe, Verified 07/11/25 08:51) PERICARDIAL EFFUSION adhesive Adverse Reaction (Unknown, Verified 07/11/25 08:51) Unknown hydrochlorothiazide Adverse Reaction (Verified 07/11/25 08:51) NEEDS FOLLOW-UP lisinopril Adverse Reaction (Verified 07/11/25 08:51) NEEDS FOLLOW-UP metoprolol Adverse Reaction (Verified 07/11/25 08:51) Shortness of breath simvastatin Adverse Reaction (Verified 07/11/25 08:51) Pain in joints Medications ?Medication ?Instructions ?Recorded ?Confirmed ?Type Oral Appliance #1 ea 03/19/22 07/11/25 Rx latanoprost 0.005 % eye drops 1 drp EACH EYE QHS Check with 03/28/22 07/11/25 History primary doctor [id number]-[id number] 1 cap PO DAILY suppl ement 12/01/22 07/11/25 History oil 350 mg-400 mg capsule cholecalciferol (vitamin D3) 125 125 mcg PO DAILY #30 tabs 12/11/22 07/11/25 Rx mcg (5,000 unit) tablet ascorbic acid (vitamin C) 500 mg 500 mg PO DAILY 02/0707/11/25 History capsule cranberry 500 mg capsule 500 mg PO DAILY 02/07/23 History doxazosin 4 mg tablet 4 mg PO QHS #90 tabs 4 07/11/25 Rx carvedilol 25 mg tablet 25 mg PO BID #180 TABLETS 07/11/25 Rx amlodipine 10 mg tablet 10 mg PO DAILY 11/16/2406/29 History apixaban 2.5 mg tablet (Eliquis) 2.5 mg PO BID 5 07/11/25 History cinnamon bark 500 mg capsule 500 mg PO DAILY 11/16/24 07/11/25 History (Cinnamon) isosorbide mononitrate 30 mg 30 mg PO DAILY 11/16/24 1 History tablet,extended release 24 hr olmesartan 20 mg tablet 20 mg PO QDAY 12/09/2407/11 History pantoprazole 40 mg tablet,delayed 40 mg PO DAILY #90 t abs 05/12/25 07/11/25 Rx release estradiol 0.01% (0.1 mg/gram) 1 g vaginal 3XW 3 months #42.5 05/17/25 07/11/25 Rx vaginal cream grams clopidogrel 75 mg tablet 75 mg PO DAILY #90 tabs 04/3007/11/25 Rx glimepiride 2 mg tablet 2 mg PO DAILY blood sugar #9 0 tabs 05/20/25 07/11/25 Rx levothyroxine 100 mcg tablet 100 mcg PO DAILY #90 tabs 05/23/25 07/11/25 Rx atorvastatin 20 mg tablet 20 mg PO QDAY 05/24/2507/11 History ferrous sulfate 325 mg (65 mg 325 mg PO BID #60 tabs 0 06/02/25 07/11/25 Rx iron) tablet (Iron (ferrous sulfate)) torsemide 20 mg tablet 10 mg PO QAM 06/16/25 History BIPAP -Bilevel Positive Airway 06/21/25 07/11/25 Hist ory Pressure ([facility] USE ONLY) Have you fallen in the past year?: No Laboratory Tests 11/21/23 10/20/24 11/16/24 17:20 13:58 16:35 Hgb 13.3 9.6 L Retic Count Creatinine 2.13 H Est GFR (MDRD) Non-Af 24 L Iron Saturation Ferritin Erythropoietin Vitamin B12 11/16/24 05/13/25 05/31/25 21:50 12:16 11:54 Hgb 9.4 L 9.1 L Retic Count Creatinine Est GFR (MDRD) Non-Af Iron Saturation 12.2 L 7.0 L Ferritin 14 Erythropoietin 88.1 H Vitamin B12 349 06/08/25 06/29/25 07/04/25 14:27 12:44 14:34 Hgb 9.6 L 10.0 L Retic Count 1.54 H Creatinine 1.87 H Est GFR (MDRD) Non-Af 26 L Iron Saturation 13.4 Ferritin 25 Erythropoietin Vitamin B12 07/07/25 23:32 Hgb 10.0 L Retic Count Creatinine Est GFR (MDRD) Non-Af Iron Saturation Ferritin Erythropoietin Vitamin B12 Exam Physical Exam Narrative Seen in a wheelchair Const alert and oriented x3 General Appearance: frail Nutritional Appearance: obese Coding Level of Care Code Off vis,est,level 3 Exam Problem Focused Diagnoses Anemia, unspecified type D64.9 Anemia type: unspecified type Chronic renal failure, stage 4 (severe) N18.4 Chronic kidney disease stage: stage 4 (GFR 15-29) Iron deficiency anemia due to chronic blood loss D50.0 Iron deficiency anemia type: chronic blood loss Assessment and Plan Assessment and Plan (1) Anemia: Status: Chronic Qualifiers: Anemia type: unspecified type Qualified Code(s): D64.9 - Anemia, unspecified (2) Chronic renal failure: Status: Chronic Qualifiers: Chronic kidney disease stage: stage 4 (GFR 15-29) Qualified Code(s): N18.4 - Chronic kidney disease, stage 4 (severe) (3) Iron deficiency anemia: Status: Chronic Qualifiers: Iron deficiency anemia type: chronic blood loss Qualified Code(s): D50.0 - Iron deficiency anemia secondary to blood loss (chronic) Orders: Orders CBC W/Diff, Automated 08/08/25 D64.9 - Anemia, unspecified Retic Panel Count 08/08/25 D50.0 - Iron deficiency anemia secondary to blood loss (chronic), N18.4 - Chronic kidney disease, stage 4 (severe) Ferritin 08/08/25 D64.9 - Anemia, unspecified Iron+Iron Binding Capacity 08/08/25 D50.0 - Iron deficiency anemia secondary toblood loss (chronic), N18.4 - Chronic kidney disease, stage 4 (severe) Referrals Prior Authorization Referral - ONC/HEM D50.0 - Iron deficiency anemia secondary to blood loss (chronic), D64.9 - Anemia, unspecified, N18.4 - Chronic kidney disease, stage 4 (severe) Plan 85-year-old female with multiple chronic medical problems and chronic normocyticanemia. She is unaware of any external bleeding and she was started on an oral iron supplement in May 2025. Her anemia is likely multifactorial including anemia of chronic kidney failure (stage IV) plus or minus chronic iron deficiency anemia on oral supplement. Chronic comorbid conditions: Diabetes over 10 years duration, chronic renal failure, valvular heart disease, coronary artery disease, has a pacemaker, degenerative joint disease, obesity, obstructive sleep apnea on CPAP, hypothyroidism status post thyroid surgery Plan: 1. Continue oral iron supplement 1 tablet daily long-term. Will supplement heroral intake with IV iron to target ferritin at or above 100 and iron saturation at 20% in presence of anemia of chronic kidney failure. 2. The patient is not a candidate for erythrocyte stimulating agent therapy since her hemoglobin is at the target of 10 g per DL. Her residual ongoing fatigue with a target hemoglobin of 10 is related to other comorbid conditions rather than the anemia itself. 3. Follow-up 1 month after IV iron. Patient was seen with her , impression and plan discussed. Berry Avitia MD Data Operations Director, [facility] Divisions of Medical Oncology & Hematology Department of Internal Medicine [place] [id number] This note was generated using a voice recognition system software. Although itwas reviewed by the author prior to finalization, it may still contain incorrectwords, spelling, and punctuation that were not noted when reviewing prior to saving. If a clinically significant typo or inaccurately typed phrase is noted, please notify the author. Clinical Quality Measures Falls Risk Screening/Assistive Devices Have you fallen in the past year?: No 07/11/25 0913 <Electronically signed by Berry mcclure MD> Date _ Berry Avitia MD Cosigner Signature: Date (if applicable) CC: Dr. Jorge Benavides MD ~ [facility] [employer] Work Phone: Reason for referral (narrative)* Diagnostic Procedure Only (Routine) - Closed Specialty Diagnoses / Procedures Referred By Contac t Referred To Contact MOLECULAR & FUNCTIONAL IMAGING Diagnoses SOB (shortness of breath) H/O pericarditis Chest pain, unspecified type Essential (primary) hypertension Back pain, unspecified back location, unspecified back pain laterality, unspecified chronicity Procedures NM CARDIAC PERF STRESS/PHARM MYOCARDIAL SPECT MULTIPLE STUDIES Garth Hoffmna MD [address] [place] [address] Molecular & Functional Imaging [address] [place] [phone] Referral ID Status Reason Start Date Expiration Date V isits Requested Visits Authorized [id number] Closed Auto-Generate d Referral 12/12/2021 01/11/2023 1 1 [facility] for referral (narrative)* Outpatient Procedure (Routine) - Authorized Specialty Diagnoses / Procedures Referred By Contac t Referred To Contact [facility] [place] Diagnoses Chronic pericarditis, unspecified complication status, unspecified type Aortic stenosis Procedures ECHO ECHO TTHRC R-T 2D W/WOM-MODE COMPL SPEC&[place] [address] [place] [address] [facility] [place] [address] Referral ID Status Reason Start Date Expiration Date Visits Requested Visits Authorized [id number] Authorized Auto-Generat ed Referral 05/14/2023 05/13/2024 1 1 [facility] for referral (narrative)* Outpatient Procedure (Routine) - Pending Review Specialty Diagnoses / Procedures Referred By Contac t Referred To Contact [facility] [place] Diagnoses Aortic valve disorder Procedures ECG COMPLETE ECG ROUTINE ECG W/LEAST 12 LDS W/I&R Jessica Echeverria APRNCarolinREFINERY PIPELINE OPERATOR [address] [place] [address] [place] [phone] Referral ID Status Reason Start Date Expiration Date Visits Requested Visits Authorized [id number] Pending Review Auto-Generat ed Referral 01/20/2024 01/19/2025 1 1 [facility] for referral (narrative)* Outpatient Procedure (Routine) - Pending Review Specialty Diagnoses / Procedures Referred By Contac t Referred To Contact [facility] [place] Diagnoses Mixed hyperlipidemia Paroxysmal atrial fibrillation (HCC) Procedures ECHO ECHO TTHRC R-T 2D W/WOM-MODE COMPL SPEC&COLR D Lynette Ervin APRN.CNP [address] [place] [address] [facility] [place] [address] [place] [address] Referral ID Status Reason Start Date Expiration Date Visits Requested Visits Authorized [id number] Pending Review Auto-Generat ed Referral 02/18/2024 02/17/2025 1 1 * Outpatient Procedure (Routine) - Pending Review Specialty Diagnoses / Procedures Referred By Contac t Referred To Contact [facility] [place] Diagnoses Mixed hyperlipidemia Paroxysmal atrial fibrillation (HCC) Procedures ECG COMPLETE ECG ROUTINE ECG W/LEAST 12 LDS W/I&R Lynette Ervin APRN.REFINERY PIPELINE OPERATOR [address] [place] [address] [facility] [address] [place] [address] Referral ID Status Reason Start Date Expiration Date Visits Requested Visits Authorized [id number] Pending Review Auto-Generat ed Referral 02/18/2024 02/17/2025 1 1 * Transition of Care (Routine) - Ref Not Required Specialty Diagnoses / Procedures Referred By Contac t Referred To Contact [facility] [place] Diagnoses Mixed hyperlipidemia Paroxysmal atrial fibrillation (HCC) Procedures CARDIOVASCULAR MEDICINE OP FOLLOW UP APPT ORDER Lynette Ervin APRN.REFINERY PIPELINE OPERATOR [address] [place] [address] [facility] [place] [address] [place] [address] Referral ID Status Reason Start Date Expiration Date Visits Requested Visits Authorized [id number] Ref Not Required PCP Requested Referral 11/19/2024 02/17/2025 1 1 * Outpatient Procedure (Routine) - Closed Specialty Diagnoses / Procedures Referred By Alejandrina cerna Referred To Contact [facility] [place] Diagnoses Mixed hyperlipidemia Paroxysmal atrial fibrillation (HCC) Procedures ECG COMPLETE ECG ROUTINE ECG W/LEAST 12 LDS W/I&R Lynette Ervin APRN.CNP [address] [place] [id number] [place] [phone] Referral ID Status Reason Start Date Expiration Date V isits Requested Visits Authorized [id number] Closed Auto-Generate d Referral 02/18/2024 02/17/2025 1 1 [facility] for referral (narrative)* Transition of Care (Routine) - Authorized Specialty Diagnoses / Procedures Referred By Alejandrina cerna Referred To Contact [facility] [place] Procedures CARDIOVASCULAR MEDICINE OP FOLLOW UP APPT ORDER Domenic Serrano APRN.CNP [address] [place] [address] Phone: tel: fax: [place] [phone] Referral ID Status Reason Start Date Expiration Date Visits Requested Visits Authorized [id number] Authorized PCP Requested Referral 02/07/2025 11/10/2025 1 1 [facility] for referral (narrative)No reason for referral information [facility] Phone: [facility] Narrative* Diagnostic Procedure Only (Routine) - Closed Specialty Diagnoses / Procedures Referred By Alejandrina cerna Referred To Contact MOLECULAR & FUNCTIONAL IMAGING Diagnoses SOB (shortness of breath) H/O pericarditis Chest pain, unspecified type Essential (primary) hypertension Back pain, unspecified back location, unspecified back pain laterality, unspecified chronicity Procedures NM CARDIAC PERF STRESS/PHARM MYOCARDIAL SPECT MULTIPLE STUDIES Garth Hoffman MD [address] [place] [phone] Molecular & Functional Imaging [address] [place] [address] Referral ID Status Reason Start Date Expiration Date V isits Requested Visits Authorized [id number] Closed Auto-Generate d Referral 12/12/2021 01/11/2023 1 1 [facility] Summary Purpose Family History No Family History Records Found Relationship Condition Age at Onset Recorded Date/T mulu mother Malignant neoplasm Unknown father Malignant neoplasm Unknown Relationship Condition Age at Onset Recorded Date/T mulu mother Malignant neoplasm Unknown Disorder of thyroid Unknown father Malignant neoplasm Unknown Relationship Condition Age at Onset Recorded Date/T mulu mother Malignant neoplasm Unknown Disorder of thyroid Unknown father Malignant neoplasm Unknown Hypertension Unknown Relationship Condition Age at Onset Recorded Date/T mulu mother Malignant neoplasm Unknown Disorder of thyroid Unknown father Malignant neoplasm Unknown Hypertension Unknown son Malignant neoplasm Unknown Advance Directives No Advanced Directives Records FoundLatest Code Status on File Code Status Date Activated Date Inactivated Comments Full Code 01/31/2023 8:29 AM Full Code Order Discussed With: Patient Full Code 08/24/2020 2:56 PM 09/01/2020 9:07 PM Documents on File Type Date Recorded Patient Shake Sawyer Expl anation Advance Directives and Living Will Power of Nutritional Services Director Latest Code Status on File Code Status Date Activated Date Inactivated Comments Full Code 12/22/2018 3:42 PM 12/24/2018 10:04 PM Full Code 12/22/2018 9:50 AM 12/22/2018 3:34 PM Full Code 12/22/2018 9:49 AM 12/22/2018 9:50 AM Full Code 07/01/2018 4:41 PM 07/02/2018 12:21 AM Full Code 07/01/2018 1:02 PM 07/01/2018 4:41 PM Documents on File Type Date Recorded Patient Shake Sawyer Expl anation Advance Directives and Living Will Power of Nutritional Services Director Latest Code Status on File Code Status Date Activated Date Inactivated Comments Full Code 12/22/2018 3:42 PM 12/24/2018 10:04 PM Full Code 12/22/2018 9:50 AM 12/22/2018 3:34 PM Full Code 12/22/2018 9:49 AM 12/22/2018 9:50 AM Full Code 07/01/2018 4:41 PM 07/02/2018 12:21 AM Full Code 07/01/2018 1:02 PM 07/01/2018 4:41 PM Documents on File Type Date Recorded Patient Shake Sawyer Expl anation ACP-Advance Directive ACP-Power of Nutritional Services Director Advance Directive Response Recorded Date/ Time Living Will Yes August 23, 7:44am Power of Nutritional Services Director No August 23, 2020 7:44am Documents on File Type Date Recorded Patient Shake Sawyer Expl anation Advance Directive(s) 08/24/2020 9:51 AM Advance Directive(s) 12/01/2018 9:52 AM Advance Directive(s) 09/20/2017 9:51 AM Latest Code Status on File Code Status Date Activated Date Inactivated Comments Full Code 08/24/2020 2:56 PM 09/01/2020 9:07 PM Documents on File Type Date Recorded Patient Shake Sawyer Expl anation Advance Directive(s) 08/24/2020 9:51 AM Advance Directive(s) 12/01/2018 9:52 AM Advance Directive(s) 09/20/2017 9:51 AM Latest Code Status on File Code Status Date Activated Date Inactivated Comments Full Code 08/24/2020 2:56 PM 09/01/2020 9:07 PM Advance Directive Response Recorded Date/ Time Living Will No March 29, 2022 2 :11pm Power of Nutritional Services Director No March 29, 2022 2:11pm Advance Directive Response Recorded Date/ Time Living Will No March 29, 2022 1 :11pm Power of Nutritional Services Director No March 29, 2022 1:11pm Advance Directive Response Recorded Date/ Time Living Will No December 01, 2022 4:53pm Power of Nutritional Services Director No December 01 4:53pm Advance Directive Response Recorded Date/ Time Living Will Yes December 01, 2022 8:19pm Power of Nutritional Services Director No December 01 8:19pm Latest Code Status on File Code Status Date Activated Date Inactivated Comments Full Code 01/31/2023 8:29 AM 02/04/2023 5:18 PM Advance Directive Response Recorded Date/ Time Living Will Yes December 01, 2022 9:19pm Power of Nutritional Services Director No December 01 9:19pm Latest Code Status on File Code Status Date Activated Date Inactivated Comments Full Code 01/31/2023 8:29 AM 02/04/2023 5:18 PM Full Code 08/24/2020 2:56 PM 09/01/2020 9:07 PM Latest Code Status on File Code Status Date Activated Date Inactivated Comments Full Code 01/31/2023 8:29 AM 02/04/2023 5:18 PM Question Answer Comments Full Code Order Discussed With: Patient Code Status History Code Status Date Activated Date Inactivated Comments Full Code 08/24/2020 2:56 PM 09/01/2020 9:07 PM Question Answer Comments Full Code Order Discussed With: Patient Latest Code Status on File Code Status Date Activated Date Inactivated Comments Full Code 01/31/2023 8:29 AM 02/04/2023 5:18 PM Question Answer Comments Full Code Order Discussed With: Patient Code Status History Code Status Date Activated Date Inactivated Comments Full Code 08/24/2020 2:56 PM 09/01/2020 9:07 PM Question Answer Comments Full Code Order Discussed With: Patient Advance Directive Response Recorded Date/ Time Living Will No November 21 5:46pm Power of Nutritional Services Director No November 21, 2023 5:46pm Date Activated Date Inactivated Comments 01/31/2023 8:29 AM 02/04/2023 5:18 PM Question Answer Comments Full Code Order Discussed With: Patient Date Activated Date Inactivated Comments 08/24/2020 2:56 PM 09/01/2020 9:07 PM Question Answer Comments Full Code Order Discussed With: Patient Date Activated Date Inactivated Comments 01/31/2023 8:29 AM 02/04/2023 5:18 PM Question Answer Comments Full Code Order Discussed With: Patient Date Activated Date Inactivated Comments 08/24/2020 2:56 PM 09/01/2020 9:07 PM Question Answer Comments Full Code Order Discussed With: Patient Advance Directive Response Recorded Date/ Time Living Will Yes March 09, 2024 8:29am Power of Nutritional Services Director Yes March 09 8:29am Living Will Yes November 16 11:16pm Power of Nutritional Services Director Yes November 16, 2024 11:16pm Name of Medical Power of Nutritional Services Director family November 16, 2024 11:16pm Advance Directive Response Recorded Date/ Time Living Will Yes March 09, 2024 8:29am Do you have a Healthcare Power of Nutritional Services Director? Yes March 09, 2024 8:29am Living Will Yes November 16 11:16pm Do you have a Healthcare Power of Nutritional Services Director? Yes November 16, 2024 11:16pm Name of Medical Power of Nutritional Services Director family November 16, 2024 11:16pm Advance Directive Response Recorded Date/ Time Living Will Yes November 16 11:16pm Do you have a Healthcare Power of Nutritional Services Director? Yes November 16, 2024 11:16pm Name of Medical Power of Nutritional Services Director family November 16, 2024 11:16pm Do you have a Healthcare Power of Nutritional Services Director? Yes February 22, 2025 2:10pm Advance Directive Response Recorded Date/ Time Do you have a Healthcare Power of Nutritional Services Director? Yes February 22, 2025 2:10pm Advance Directive Response Recorded Date/ Time Living Will Yes March 09, 2024 8:29am Do you have a Healthcare Power of Nutritional Services Director? Yes March 09, 2024 8:29am Do you have a Healthcare Power of Nutritional Services Director? Yes February 22, 2025 2:10pm Advance Directive Response Recorded Date/ Time Living Will Yes March 09, 2024 8:29am Do you have a Healthcare Power of Nutritional Services Director? Yes March 09, 2024 8:29am Advance Directive Response Recorded Date/ Time Living Will Yes March 09, 2024 8:29am Do you have a Healthcare Power of Nutritional Services Director? Yes March 09, 2024 8:29am Do you have a Healthcare Power of Nutritional Services Director? Yes July 07, 2025 11:56pm Reason for Referral Status Reason Specialty Diagnoses / Procedures Referre d By Contact Referred To Contact Closed Cardiology Diagnoses Localized edema Procedures Echo 2D Doppler Color Catalina Carpenter APRN - CNP [address] [facility] [address] [place] [address] Status Reason Specialty Diagnoses / Procedures Referre d By Contact Referred To Contact Closed Radiology Diagnoses Shortness of breath Procedures NM Myocardial Spect Rest Exercise or Rx Catalina Carpenter APRN - REFINERY PIPELINE OPERATOR [address] [facility] [address] [place] [address] Specialty Diagnoses / Procedures Referred By Contac t Referred To Contact MR IMAGING Diagnoses Nonrheumatic aortic valve stenosis Paroxysmal atrial fibrillation (HCC) SSS (sick sinus syndrome) (HCC) Chronic pericarditis, unspecified complication status, unspecified type Primary hypertension Heart failure, unspecified (HCC) Procedures MRI CARDIAC MORPH FUNC WO/W IVCON CARDIAC MRI W/WO CONTRAST [place] [address] [place] [address] Mr Imaging Referral ID Status Reason Start Date Expiration Date Visits Requested Visits Authorized [id number] Authorized Auto-Generat ed Referral 11/27/2022 06/29/2023 1 1 Specialty Diagnoses / Procedures Referred By Contac t Referred To Contact [facility] [place] Diagnoses Nonrheumatic aortic valve stenosis Paroxysmal atrial fibrillation (HCC) SSS (sick sinus syndrome) (HCC) Chronic pericarditis, unspecified complication status, unspecified type Primary hypertension Heart failure, unspecified (HCC) Procedures ECG COMPLETE ECG ROUTINE ECG W/LEAST 12 LDS W/I&[place] [address] [place] [address] [place] [address] Referral ID Status Reason Start Date Expiration Date Visits Requested Visits Authorized [id number] Authorized Auto-Generat ed Referral 11/27/2022 05/30/2023 1 1 Specialty Diagnoses / Procedures Referred By Vedaac t Referred To Contact MR IMAGING Diagnoses Nonrheumatic aortic valve stenosis Paroxysmal atrial fibrillation (HCC) SSS (sick sinus syndrome) (HCC) Chronic pericarditis, unspecified complication status, unspecified type Primary hypertension Heart failure, unspecified (HCC) Procedures MRI CARDIAC VELOCITY FLOW MAP CARDIAC MRI FOR VELOCITY FLOW MAPPING Yimi Ryan MD [address] [place] [address] Mr Imaging Referral ID Status Reason Start Date Expiration Date Visits Requested Visits Authorized [id number] Pending Review Auto-Generat ed Referral 11/27/2022 06/29/2023 1 1 Specialty Diagnoses / Procedures Referred By Contac t Referred To Contact [facility] [place] Diagnoses Nonrheumatic aortic valve stenosis Paroxysmal atrial fibrillation (HCC) SSS (sick sinus syndrome) (HCC) Chronic pericarditis, unspecified complication status, unspecified type Primary hypertension Heart failure, unspecified (HCC) Procedures ECHO ECHO TTHRC R-T 2D W/WOM-MODE COMPL SPEC&COLR D Yimi Ryan MD [address] [place] [address] [facility] [place] [facility] [place] [address] Referral ID Status Reason Start Date Expiration Date Visits Requested Visits Authorized [id number] Authorized Auto-Generat ed Referral 11/27/2022 05/30/2023 1 1 Specialty Diagnoses / Procedures Referred By Contac t Referred To Contact MR IMAGING Diagnoses SOB (shortness of breath) H/O pericarditis Chest pain, unspecified type Essential (primary) hypertension Back pain, unspecified back location, unspecified back pain laterality, unspecified chronicity Pericarditis in diseases classified elsewhere Procedures MRI CARDIAC VELOCITY FLOW MAP CARDIAC MRI FOR VELOCITY FLOW MAPPING Garth Hoffman MD [address] [place] [address] Mr Imaging Referral ID Status Reason Start Date Expiration Date V isits Requested Visits Authorized [id number] Closed Auto-Generate d Referral 12/12/2021 01/11/2023 1 1 [facility]ty Diagnoses / [facility]erred To Contact MR [facility] Diagnoses SOB (shortness of breath) H/O pericarditis Chest pain, unspecified type Essential (primary) hypertension Back pain, unspecified back location, unspecified back pain laterality, unspecified chronicity Pericarditis in diseases classified elsewhere Procedures MRI CARDIAC MORPH FUNC WO/W IVCON CARDIAC MRI W/WO CONTRAST & FURTHER SEQ Garth Hoffman MD [address] [place] [address] Mr Imaging Referral ID Status Reason Start Date Expiration Date V isits Requested Visits Authorized [id number] Closed Auto-Generate d Referral 10/08/2022 01/11/2023 1 1 Specialty Diagnoses / Procedures [facility] Referred To Contact MR IMAGING Diagnoses Cardiomyopathy, unspecified type (HCC) Procedures MRI CARDIAC VELOCITY FLOW MAP CARDIAC MRI FOR VELOCITY FLOW MAPPING Luna rGegorio PA-C [address] [place] [address] Mr Imaging Referral ID Status Reason Start Date Expiration Date Visits Requested Visits Authorized [id number] Pending Review Auto-Generat ed Referral 03/21/2023 04/19/2024 1 1 Specialty Diagnoses / Procedures Referred By Contac t Referred To Contact Procedures CARDIOVASCULAR MEDICINE OP FOLLOW UP APPT ORDER Deepak Best, WINDER FIXER.REFINERY PIPELINE OPERATOR [address] [place] [address] Referral ID Status Reason Start Date Expiration Date Visits Requested Visits Authorized [id number] Ref Not Required PCP Requested Referral 11/19/2023 11/18/2024 1 1 Specialty Diagnoses / Procedures Referred By Contac t Referred To Contact Procedures CARDIOVASCULAR MEDICINE OP FOLLOW UP APPT ORDER Lesli Shaver, WINDER FIXER.REFINERY PIPELINE OPERATOR [address] [place] [address] Referral ID Status Reason Start Date Expiration Date Visits Requested Visits Authorized [id number] Ref Not Required PCP Requested Referral 02/17/2024 11/18/2024 1 1 Specialty Diagnoses / Procedures Referred By Contac t Referred To [facility] Diagnoses AF (paroxysmal atrial fibrillation) (HCC) Procedures CARDIOVASCULAR MEDICINE OP FOLLOW UP APPT ORDER Xiao Suazo MD [address] [place] [address] [facility] [address] [address] Referral ID Status Reason Start Date Expiration Date Visits Requested Visits Authorized [id number] Ref Not Required PCP Requested Referral 02/05/2024 02/04/2025 1 1 Specialty Diagnoses / Procedures Referred By Contac t Referred To Contact [facility] Procedures CARDIOVASCULAR MEDICINE OP FOLLOW UP APPT ORDER Precious Ch, WINDER FIXER.BIG DATA LEAD [address] [place] [address] [facility] [address] [address] Referral ID Status Reason Start Date Expiration Date Visits Requested Visits Authorized [id number] Ref Not Required PCP Requested Referral 02/05/2024 02/04/2025 1 1 Specialty Diagnoses / Procedures Referred By Contac t Referred To Contact [facility] Procedures CARDIOVASCULAR MEDICINE OP FOLLOW UP APPT ORDER 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 PIPELINE OPERATOR [address] [place] [address] [facility] [address] [address] Referral ID Status Reason Start Date Expiration Date Visits Requested Visits Authorized [id number] Ref Not Required PCP Requested Referral 02/18/2024 02/17/2025 1 1 Specialty Diagnoses / Procedures Referred By Contac t Referred To Contact [facility] [place] Procedures CARDIOVASCULAR MEDICINE OP FOLLOW UP APPT ORDER Vicky Bryan PA-C [address] [place] [address] [facility] [address] [address] Referral ID Status Reason Start Date Expiration Date Visits Requested Visits Authorized [id number] Ref Not Required PCP Requested Referral 04/16/2024 04/16/2025 1 1 Specialty Diagnoses / Procedures Referred By Contac t Referred To Contact [facility] Diagnoses SSS (sick sinus syndrome) ([facility]) Procedures CARDIOVASCULAR MEDICINE OP FOLLOW UP APPT ORDER Xiao Suazo MD [address] [place] [address] [address] Referral ID Status Reason Start Date Expiration Date Visits Requested Visits Authorized [id number] Ref Not Required PCP Requested Referral 06/24/2024 06/24/2025 1 1 Assessments Diagnosis Localized edema Edema Diagnosis Status post total left knee replacement Diagnosis Shortness of breath Diagnosis Encounter for screening mammogram for malignant neoplasm of breast Other screening mammogram Hospital Course Note PATIENT: LYNETTE ANGULO [facility] RECORD #: [id number] ADMISSION DATE: 12/22/2018 DISCHARGE DATE: 12/24/2018 DATE OF : 1940 AGE: 78 ADMITTING PHYSICIAN: Trung Ng MD ATTENDING PHYSICIAN: Trung Ng MD DICTATING PHYSICIAN: Trung Ng MD DISCHARGE SUMMARY ADMITTING DIAGNOSIS: DEGENERATIVE ARTHRITIS, LEFT KNEE. HOSPITAL COURSE: This is a 78-year-old female with end-stage arthritis of her left knee. She has failed conservative care and was admitted for total knee arthroplasty. She is admitted to same-day surgery and taken to the operative suite where she had a [employer] total knee. We used a size 3 posterior stabilized femoral component, size 3 tibial base plate with an 11 mm thick posterior stabilized articular insert and a 23 mm biconvex inset patella. She tolerated the procedure well. We used [place]os cement with gentamicin due to her diabetes. Postoperatively, she was medically stable. She did have a high glucose (more content not included)... Chief Complaint and Reason for Visit Chief Complaint S/O LABS/ALWAYS CC Monica HOFFMAN ON LABS S/O LABS/ALWAYS CC DR GARTH HOFFMAN ON LABS Chief Complaint 1 Y FU TOTAL LEFT KNEE REPLACEMENT TOTAL LEFT KNEE REPLACEMENT TOTAL LEFT KNEE REPLACEMENT TOTAL LEFT KNEE REPLACEMENT TOTAL LEFT KNEE REPLACEMENT TOTAL LEFT KNEE REPLACEMENT Reason for Visit CLIFFORD (obstructive sle ep apnea) Acute blood loss anemia Bradycardia Failed total knee replacement Hypersomnolence Physical debility Status post revision of total knee replacement Carotid bruit Chronic renal failure, stage 3a Diabetes mellitus, type 2 Glaucoma HLD (hyperlipidemia) HTN (hypertension) LVH (left ventricular hypertrophy) Non-rheumatic tricuspid valve insufficiency Nonrheumatic aortic valve stenosis Nonrheumatic mitral valve insufficiency Obesity CLIFFORD (obstructive sleep apnea) Osteoarthritis PAF (paroxysmal atrial fibrillation) Status post placement of cardiac pacemaker History of parathyroidectomy History of thyroidectomy, total Hypophosphatemia Sinus pause Chief Complaint 1 Y FU TOTAL LEFT KNEE REPLACEMENT TOTAL LEFT KNEE REPLACEMENT TOTAL LEFT KNEE REPLACEMENT TOTAL LEFT KNEE REPLACEMENT TOTAL LEFT KNEE REPLACEMENT TOTAL LEFT KNEE REPLACEMENT TOTAL LEFT KNEE REPLACEMENT LIDAR SCIENTIST, EST. CARE, [facility] FU, G PT 2 M FU INT LABS Reason for Visit CLIFFORD (obstructive sle ep apnea) CLIFFORD (obstructive sleep apnea) Physical debility HTN (hypertension) Nonrheumatic aortic valve stenosis Obesity Acute blood loss anemia Hypophosphatemia Sinus pause Status post revision of total knee replacement Acquired hypothyroidism CLIFFROD (obstructive sleep apnea) Establishing care with new doctor, encounter for Status post revision of total replacement of left knee Hospital discharge follow-up Constipation by delayed colonic transit CLIFFORD (obstructive sleep apnea) Obesity Chief Complaint TOTAL LEFT KNEE REPL ACEMENT TOTAL LEFT KNEE REPLACEMENT TOTAL LEFT KNEE REPLACEMENT TOTAL LEFT KNEE REPLACEMENT TOTAL LEFT KNEE REPLACEMENT TOTAL LEFT KNEE REPLACEMENT TOTAL LEFT KNEE REPLACEMENT LIDAR SCIENTIST, EST. CARE, [facility] FU, WHG PT 2 M FU INT LABS DISCUSS BLOOD PRESSURE MEDS CKD3 bradycardia 3 M FU Reason for Visit CLIFFORD (obstructive sle ep apnea) Diabetes mellitus, type 2 HLD (hyperlipidemia) LVH (left ventricular hypertrophy) Nonrheumatic aortic valve stenosis Obesity PAF (paroxysmal atrial fibrillation) Acute blood loss anemia Hypophosphatemia Sinus pause Status post revision of total knee replacement Acquired hypothyroidism CLIFFORD (obstructive sleep apnea) Establishing care with new doctor, encounter for Status post revision of total replacement of left knee Hospital discharge follow-up Constipation by delayed colonic transit CLIFFORD (obstructive sleep apnea) Obesity Nonrheumatic aortic valve stenosis Uncontrolled hypertension CKD (chronic kidney disease) stage 3, GFR 30-59 ml/min Constipation by delayed colonic transit Chronic pericarditis with effusion Essential hypertension History of permanent cardiac pacemaker placement HLD (hyperlipidemia) Nonrheumatic aortic valve stenosis Acquired hypothyroidism Nonrheumatic aortic valve stenosis Uncontrolled hypertension Bruising CKD (chronic kidney disease) stage 3, GFR 30-59 ml/min Status post revision of total replacement of left knee Constipation by delayed colonic transit Chief Complaint TOTAL LEFT KNEE REPL ACEMENT TOTAL LEFT KNEE REPLACEMENT TOTAL LEFT KNEE REPLACEMENT TOTAL LEFT KNEE REPLACEMENT LIDAR SCIENTIST, EST. CARE, [facility] FU, WHG PT 2 M FU INT LABS DISCUSS BLOOD PRESSURE MEDS CKD3 bradycardia 3 M FU Atherosclerosis of renal artery Reason for Visit CLIFFORD (obstructive sle ep apnea) Diabetes mellitus, type 2 HLD (hyperlipidemia) LVH (left ventricular hypertrophy) Nonrheumatic aortic valve stenosis Obesity PAF (paroxysmal atrial fibrillation) Acute blood loss anemia Hypophosphatemia Sinus pause Status post revision of total knee replacement Acquired hypothyroidism CLIFFORD (obstructive sleep apnea) Establishing care with new doctor, encounter for Status post revision of total replacement of left knee Hospital discharge follow-up Constipation by delayed colonic transit CLIFFORD (obstructive sleep apnea) Obesity Nonrheumatic aortic valve stenosis Uncontrolled hypertension CKD (chronic kidney disease) stage 3, GFR 30-59 ml/min Constipation by delayed colonic transit Chronic pericarditis with effusion Essential hypertension History of permanent cardiac pacemaker placement HLD (hyperlipidemia) Nonrheumatic aortic valve stenosis Acquired hypothyroidism Nonrheumatic aortic valve stenosis Uncontrolled hypertension Bruising CKD (chronic kidney disease) stage 3, GFR 30-59 ml/min Status post revision of total replacement of left knee Constipation by delayed colonic transit Chief Complaint 2 M FU INT LABS DISCUSS BLOOD PRESSURE MEDS CKD3 bradycardia 3 M FU Atherosclerosis of renal artery 30 new PPM enroll Reason for Visit CLIFFORD (obstructive sle ep apnea) Obesity Nonrheumatic aortic valve stenosis Uncontrolled hypertension CKD (chronic kidney disease) stage 3, GFR 30-59 ml/min Constipation by delayed colonic transit Chronic pericarditis with effusion Essential hypertension History of permanent cardiac pacemaker placement HLD (hyperlipidemia) Nonrheumatic aortic valve stenosis Acquired hypothyroidism Nonrheumatic aortic valve stenosis Uncontrolled hypertension Bruising CKD (chronic kidney disease) stage 3, GFR 30-59 ml/min Status post revision of total replacement of left knee Constipation by delayed colonic transit History of permanent cardiac pacemaker placement Left bundle branch block (LBBB) PAF (paroxysmal atrial fibrillation) Sick sinus syndrome Chief Complaint 3 M FU Atherosclerosis of renal artery 30 new PPM enroll BLADDER INFECTION Reason for Visit Acquired hypothyroid ism Nonrheumatic aortic valve stenosis Uncontrolled hypertension Bruising CKD (chronic kidney disease) stage 3, GFR 30-59 ml/min Status post revision of total replacement of left knee Constipation by delayed colonic transit History of permanent cardiac pacemaker placement Left bundle branch block (LBBB) PAF (paroxysmal atrial fibrillation) Sick sinus syndrome Urinary incontinence Dysuria Chief Complaint 30 new PPM enroll BLADDER INFECTION 6 M FU NSTEMI Reason for Visit History of permanent cardiac pacemaker placement Left bundle branch block (LBBB) PAF (paroxysmal atrial fibrillation) Sick sinus syndrome Urinary incontinence Dysuria CLIFFORD (obstructive sleep apnea) Chest pain Elevated troponin History of hypertension NSTEMI, initial episode of care CKD (chronic kidney disease) stage 3, GFR 30-59 ml/min Diabetes mellitus, type 2 Essential hypertension History of chronic kidney disease Chief Complaint 30 new PPM enroll BLADDER INFECTION 6 M FU NSTEMI NSTEMI NSTEMI NSTEMI NSTEMI Reason for Visit History of permanent cardiac pacemaker placement Left bundle branch block (LBBB) PAF (paroxysmal atrial fibrillation) Sick sinus syndrome Urinary incontinence Dysuria CLIFFORD (obstructive sleep apnea) Chest pain Elevated troponin History of hypertension NSTEMI, initial episode of care Chronic pericarditis with effusion CKD (chronic kidney disease) stage 3, GFR 30-59 ml/min Diabetes mellitus, type 2 Essential hypertension History of chronic kidney disease History of permanent cardiac pacemaker placement HLD (hyperlipidemia) Nonrheumatic aortic valve stenosis PAF (paroxysmal atrial fibrillation) Chief Complaint BLADDER INFECTION 6 M FU NSTEMI NSTEMI NSTEMI NSTEMI NSTEMI SCREENING MAMMOGRAPHIC CALCIFICATION MICROCALCIFICATION - RIGHT MICROCALCIFICATION - RIGHT DUE AROUND DATE LISTED PER ORDER 6 m check/ MMM @ 11am Reason for Visit Urinary incontinence Dysuria CLIFFORD (obstructive sleep apnea) Elevated troponin Chronic pericarditis with effusion Diabetes mellitus, type 2 Essential hypertension History of permanent cardiac pacemaker placement HLD (hyperlipidemia) PAF (paroxysmal atrial fibrillation) Chest pain NSTEMI, initial episode of care Calcification of right breast on mammography Left bundle branch block (LBBB) PAF (paroxysmal atrial fibrillation) Sick sinus syndrome Chief Complaint NSTEMI NSTEMI NSTEMI NSTEMI NSTEMI SCREENING MAMMOGRAPHIC CALCIFICATION MICROCALCIFICATION - RIGHT MICROCALCIFICATION - RIGHT DUE AROUND DATE LISTED PER ORDER 6 m check/ MMM @ 11am CLIFFORD; BIPAP S Loaner *DEVICE TAGGED Reason for Visit Elevated troponin Chronic pericarditis with effusion Diabetes mellitus, type 2 Essential hypertension History of permanent cardiac pacemaker placement HLD (hyperlipidemia) PAF (paroxysmal atrial fibrillation) Chest pain NSTEMI, initial episode of care Calcification of right breast on mammography Elevated troponin Chronic pericarditis with effusion Essential hypertension History of permanent cardiac pacemaker placement HLD (hyperlipidemia) Left bundle branch block (LBBB) PAF (paroxysmal atrial fibrillation) Sick sinus syndrome Chief Complaint SCREENING MAMMOGRAPHIC CALCIFICATION MICROCALCIFICATION - RIGHT MICROCALCIFICATION - RIGHT DUE AROUND DATE LISTED PER ORDER 6 m check/ MMM @ 11am CLIFFORD; BIPAP S Loaner *DEVICE TAGGED Reason for Visit Calcification of rig ht breast on mammography Elevated troponin Chronic pericarditis with effusion Essential hypertension History of permanent cardiac pacemaker placement HLD (hyperlipidemia) Left bundle branch block (LBBB) PAF (paroxysmal atrial fibrillation) Sick sinus syndrome Chief Complaint SCREENING MAMMOGRAPHIC CALCIFICATION MICROCALCIFICATION - RIGHT MICROCALCIFICATION - RIGHT DUE AROUND DATE LISTED PER ORDER 6 m check/ MMM @ 11am CLIFFORD; BIPAP S Loaner *DEVICE TAGGED 1 Y FU Reason for Visit Calcification of rig ht breast on mammography Chronic pericarditis with effusion Essential hypertension History of permanent cardiac pacemaker placement HLD (hyperlipidemia) Elevated troponin Left bundle branch block (LBBB) PAF (paroxysmal atrial fibrillation) Sick sinus syndrome Acquired hypothyroidism CLIFFORD (obstructive sleep apnea) Uncontrolled hypertension CKD (chronic kidney disease) stage 3, GFR 30-59 ml/min Status post revision of total replacement of left knee Recurrent UTI Chief Complaint 1 Y FU 6 wk fu for clifford AQUA-R KNEE ARTIFICIAL JT;FIBROSIS L KNEE/RX HERE Reason for Visit Acquired hypothyroid ism CLIFFORD (obstructive sleep apnea) Uncontrolled hypertension CKD (chronic kidney disease) stage 3, GFR 30-59 ml/min Status post revision of total replacement of left knee Recurrent UTI CLIFFORD (obstructive sleep apnea) Obesity Chief Complaint AQUA-R KNEE ARTIFICI AL JT;FIBROSIS L KNEE/RX HERE Chief Complaint AQUA-R KNEE ARTIFICI AL JT;FIBROSIS L KNEE/RX HERE 6 M FU Reason for Visit Acquired hypothyroid ism CLIFFORD (obstructive sleep apnea) Uncontrolled hypertension CKD (chronic kidney disease) stage 3, GFR 30-59 ml/min Status post revision of total replacement of left knee Recurrent UTI Chief Complaint AQUA-R KNEE ARTIFICI AL JT;FIBROSIS L KNEE/RX HERE 6 M FU GENERAL ILLNESS Reason for Visit Acquired hypothyroid ism CLIFFORD (obstructive sleep apnea) Uncontrolled hypertension CKD (chronic kidney disease) stage 3, GFR 30-59 ml/min Status post revision of total replacement of left knee Recurrent UTI Chief Complaint Admit Date 4 M FU August 23, 2024 11:17am 3 M FU October 12, 2024 1 0:47am POST VIDYA October 20, 2024 1 :20pm 2 ORDERING DOCTORS October 20, 2024 1 :49pm HYPERKALEMIA November 16, 2024 7:53pm HYPERKALEMIA November 16, 2024 8:27pm HYPERKALEMIA November 17, 2024 4:42am CKD December 01, 2024 12:4 3pm Reason for Visit Admit Date Acquired hypothyroidism August 23, 11:17am Osteoarthritis August 23, 2024 11:17am CLIFFORD (obstructive sleep apnea) July 312023 11:17am Essential hypertension August 23 11:17am Controlled type 2 diabetes mellitus Johny hannon 2023 11:17am Change in bowel habits August 23 11:17am Shortness of breath August 23, 2024 11:17am CKD (chronic kidney disease) stage 3, GF R 30-59 ml/min August 23, 2024 11:17am Recurrent UTI August 23, 2024 11:17am Osteopenia August 23, 2024 11:17am Acquired hypothyroidism October 12 10:47am Osteoarthritis October 12, 2024 1 0:47am CLIFFORD (obstructive sleep apnea) October 122024 10:47am Essential hypertension October 12 10:47am Controlled type 2 diabetes mellitus Cyrus lemos 2024 10:47am Change in bowel habits October 12 10:47am CKD (chronic kidney disease) stage 3, GF R 30-59 ml/min October 12, 2024 10:47am CAD (coronary artery disease) October 122024 10:47am Recurrent UTI October 12, 2024 1 0:47am Osteopenia October 12, 2024 1 0:47am Obesity (BMI 30-39.9) October 12, 2024 10:47am Hyperkalemia November 16, 2024 7:53pm Aortic stenosis November 16, 2024 7:53pm Diabetes mellitus, type 2 November 16, 2024 7:53pm Essential hypertension November 16 7:53pm HLD (hyperlipidemia) November 16, 2024 7:53pm PAF (paroxysmal atrial fibrillation) Feb ruary 2024 7:53pm Stage 4 chronic kidney disease November 16, 2024 7:53pm Chief Complaint Admit Date 4 M FU August 23, 2024 11:17am 3 M FU October 12, 2024 1 0:47am POST VIDYA October 20, 2024 1 :20pm 2 ORDERING DOCTORS October 20, 2024 1 :49pm HYPERKALEMIA November 16, 2024 7:53pm HYPERKALEMIA November 16, 2024 8:27pm HYPERKALEMIA November 17, 2024 4:42am CKD December 01, 2024 12:4 3pm discuss labs from Dr. Nice December 09 10:20am Reason for Visit Admit Date Acquired hypothyroidism August 23, 2 024 11:17am Osteoarthritis August 23, 2024 11:17am CLIFFORD (obstructive sleep apnea) July 312023 11:17am Essential hypertension August 23 11:17am Controlled type 2 diabetes mellitus [facility] 2023 11:17am Change in bowel habits August 23 11:17am Shortness of breath August 23, 2024 11:17am CKD (chronic kidney disease) stage 3, GF R 30-59 ml/min August 23, 2024 11:17am Recurrent UTI August 23, 2024 11:17am Osteopenia August 23, 2024 11:17am Acquired hypothyroidism October 12 10:47am Osteoarthritis October 12, 2024 1 0:47am CLIFFORD (obstructive sleep apnea) October 122024 10:47am Essential hypertension October 12 10:47am Controlled type 2 diabetes mellitus Cyrus lemos 2024 10:47am Change in bowel habits October 12 10:47am CKD (chronic kidney disease) stage 3, GF R 30-59 ml/min October 12, 2024 10:47am CAD (coronary artery disease) October 122024 10:47am Recurrent UTI October 12, 2024 1 0:47am Osteopenia October 12, 2024 1 0:47am Obesity (BMI 30-39.9) October 12, 2024 10:47am Hyperkalemia November 16, 2024 7:53pm Aortic stenosis November 16, 2024 7:53pm Diabetes mellitus, type 2 November 16, 2024 7:53pm Essential hypertension November 16 7:53pm HLD (hyperlipidemia) November 16, 2024 7:53pm PAF (paroxysmal atrial fibrillation) Feb ruary 2024 7:53pm Stage 4 chronic kidney disease November 16, 2024 7:53pm Change in bowel habits December 09, 2024 10:20am CKD (chronic kidney disease) stage 3, GF R 30-59 ml/min December 09, 2024 10:20am Recurrent UTI December 09, 2024 10: 20am Subcutaneous nodule December 09, 2024 10: 20am Hospital discharge follow-up December 09, 2024 10:20am Hyperkalemia December 09, 2024 10: 20am Chief Complaint Admit Date 3 M FU October 12, 2024 1 0:47am POST VIDYA October 20, 2024 1 :20pm 2 ORDERING DOCTORS October 20, 2024 1 :49pm HYPERKALEMIA November 16, 2024 7:53pm HYPERKALEMIA November 16, 2024 8:27pm HYPERKALEMIA November 17, 2024 4:42am CKD December 01, 2024 12:4 3pm discuss labs from Dr. Nice December 09 10:20am New Patient December 17, 2024 10: 09am INT LAB ORDERS December 17, 2024 11: 17am SUBCUTANEOUS NODULE OF ABD December 20, 2 025 9:49am Reason for Visit Admit Date Acquired hypothyroidism Hailee 14th, 20 25 10:47am Osteoarthritis October 12, 2024 1 0:47am CLIFFORD (obstructive sleep apnea) October 122024 10:47am Essential hypertension October 12 10:47am Controlled type 2 diabetes mellitus Cyrus lemos 2024 10:47am Change in bowel habits October 12 10:47am CKD (chronic kidney disease) stage 3, GF R 30-59 ml/min October 12, 2024 10:47am CAD (coronary artery disease) October 122024 10:47am Recurrent UTI October 12, 2024 1 0:47am Osteopenia October 12, 2024 1 0:47am Obesity (BMI 30-39.9) October 12, 2024 10:47am Hyperkalemia November 16, 2024 7:53pm Aortic stenosis November 16, 2024 7:53pm Diabetes mellitus, type 2 November 16, 2024 7:53pm Essential hypertension November 16 7:53pm HLD (hyperlipidemia) November 16, 2024 7:53pm PAF (paroxysmal atrial fibrillation) Feb ruary 2024 7:53pm Stage 4 chronic kidney disease November 16, 2024 7:53pm Change in bowel habits December 09, 2024 10:20am CKD (chronic kidney disease) stage 3, GF R 30-59 ml/min December 09, 2024 10:20am Recurrent UTI December 09, 2024 10: 20am Subcutaneous nodule December 09, 2024 10: 20am Hospital discharge follow-up December 09, 2024 10:20am Hyperkalemia December 09, 2024 10: 20am Change in consistency of stool November 10:09am Chief Complaint Admit Date 3 M FU October 12, 2024 1 0:47am POST VIDYA October 20, 2024 1 :20pm 2 ORDERING DOCTORS October 20, 2024 1 :49pm HYPERKALEMIA November 16, 2024 7:53pm HYPERKALEMIA November 16, 2024 8:27pm HYPERKALEMIA November 17, 2024 4:42am CKD December 01, 2024 12:4 3pm discuss labs from Dr. Nice December 09 10:20am New Patient December 17, 2024 10: 09am INT LAB ORDERS December 17, 2024 11: 17am SUBCUTANEOUS NODULE OF ABD December 20, 2 025 9:49am SUBCUTANEOUS NODULE 2025 1:24 pm INT ORDER January 07, 2025 12: 25pm Reason for Visit Admit Date Acquired hypothyroidism October 12 10:47am Osteoarthritis October 12, 2024 1 0:47am CLIFFORD (obstructive sleep apnea) October 122024 10:47am Essential hypertension October 12 10:47am Controlled type 2 diabetes mellitus Cyrus lemos 2024 10:47am Change in bowel habits October 12 10:47am CKD (chronic kidney disease) stage 3, GF R 30-59 ml/min October 12, 2024 10:47am CAD (coronary artery disease) October 122024 10:47am Recurrent UTI October 12, 2024 1 0:47am Osteopenia October 12, 2024 1 0:47am Obesity (BMI 30-39.9) October 12, 2024 10:47am Hyperkalemia November 16, 2024 7:53pm Aortic stenosis November 16, 2024 7:53pm Diabetes mellitus, type 2 November 16, 2024 7:53pm Essential hypertension November 16 7:53pm HLD (hyperlipidemia) November 16, 2024 7:53pm PAF (paroxysmal atrial fibrillation) Feb ruary 2024 7:53pm Stage 4 chronic kidney disease November 16, 2024 7:53pm Change in bowel habits December 09, 2024 10:20am CKD (chronic kidney disease) stage 3, GF R 30-59 ml/min December 09, 2024 10:20am Recurrent UTI December 09, 2024 10: 20am Subcutaneous nodule December 09, 2024 10: 20am Hospital discharge follow-up December 09, 2024 10:20am Hyperkalemia December 09, 2024 10: 20am Change in consistency of stool November 10:09am Subcutaneous nodule 2025 1:24 pm Chief Complaint Admit Date 3 M FU October 12, 2024 1 0:47am POST VIDYA October 20, 2024 1 :20pm 2 ORDERING DOCTORS October 20, 2024 1 :49pm HYPERKALEMIA November 16, 2024 7:53pm HYPERKALEMIA November 16, 2024 8:27pm HYPERKALEMIA November 17, 2024 4:42am CKD December 01, 2024 12:4 3pm discuss labs from Dr. Nice December 09 10:20am New Patient December 17, 2024 10: 09am INT LAB ORDERS December 17, 2024 11: 17am SUBCUTANEOUS NODULE OF ABD December 20, 2 025 9:49am SUBCUTANEOUS NODULE 2025 1:24 pm INT ORDER January 07, 2025 12: 25pm SUBCUTANEOUS NODULE 1 M FU February 01, 2025 1:47pm Reason for Visit Admit Date Acquired hypothyroidism October 12 10:47am Osteoarthritis October 12, 2024 1 0:47am CLIFFORD (obstructive sleep apnea) October 122024 10:47am Essential hypertension October 12 10:47am Controlled type 2 diabetes mellitus Cyrus lemos 2024 10:47am Change in bowel habits October 12 10:47am CKD (chronic kidney disease) stage 3, GF R 30-59 ml/min October 12, 2024 10:47am CAD (coronary artery disease) October 122024 10:47am Recurrent UTI October 12, 2024 1 0:47am Osteopenia October 12, 2024 1 0:47am Obesity (BMI 30-39.9) October 12, 2024 10:47am Hyperkalemia November 16, 2024 7:53pm Aortic stenosis November 16, 2024 7:53pm Diabetes mellitus, type 2 November 16, 2024 7:53pm Essential hypertension November 16 7:53pm HLD (hyperlipidemia) November 16, 2024 7:53pm PAF (paroxysmal atrial fibrillation) Feb ruary 2024 7:53pm Stage 4 chronic kidney disease November 16, 2024 7:53pm Change in bowel habits December 09, 2024 10:20am CKD (chronic kidney disease) stage 3, GF R 30-59 ml/min December 09, 2024 10:20am Recurrent UTI December 09, 2024 10: 20am Subcutaneous nodule December 09, 2024 10: 20am Hospital discharge follow-up December 09, 2024 10:20am Hyperkalemia December 09, 2024 10: 20am Change in consistency of stool November 10:09am Subcutaneous nodule 2025 1:24 pm Subcutaneous nodule February 01, 2025 1:47pm Chief Complaint Admit Date HYPERKALEMIA November 16, 2024 7:53pm HYPERKALEMIA November 16, 2024 8:27pm HYPERKALEMIA November 17, 2024 4:42am CKD December 01, 2024 12:4 3pm discuss labs from Dr. Nice December 09 10:20am New Patient December 17, 2024 10: 09am INT LAB ORDERS December 17, 2024 11: 17am SUBCUTANEOUS NODULE OF ABD December 20, 025 9:49am SUBCUTANEOUS NODULE 2025 1:24 pm INT ORDER January 07, 2025 12: 25pm SUBCUTANEOUS NODULE 1 M FU February 01, 2025 1:47pm lower February 22, 2025 12:58 pm Reason for Visit Admit Date Hyperkalemia November 16, 2024 7:53pm Aortic stenosis November 16, 2024 7:53pm Diabetes mellitus, type 2 November 16, 2024 7:53pm Essential hypertension November 16 7:53pm HLD (hyperlipidemia) November 16, 2024 7:53pm PAF (paroxysmal atrial fibrillation) Feb ruary 2024 7:53pm Stage 4 chronic kidney disease November 16, 2024 7:53pm Change in bowel habits December 09, 2024 10:20am CKD (chronic kidney disease) stage 3, GF R 30-59 ml/min December 09, 2024 10:20am Recurrent UTI December 09, 2024 10: 20am Subcutaneous nodule December 09, 2024 10: 20am Hospital discharge follow-up December 09, 2024 10:20am Hyperkalemia December 09, 2024 10: 20am Change in consistency of stool November 10:09am Subcutaneous nodule 2025 1:24 pm Subcutaneous nodule February 01, 2025 1:47pm Chief Complaint Admit Date New Patient December 17, 2024 10: 09am INT LAB ORDERS December 17, 2024 11: 17am SUBCUTANEOUS NODULE OF ABD December 20, 2 025 9:49am SUBCUTANEOUS NODULE 2025 1:24 pm INT ORDER January 07, 2025 12: 25pm SUBCUTANEOUS NODULE 1 M FU February 01, 2025 1:47pm lower February 22, 2025 12:58 pm 6 M FU April 12, 2025 10:5 3am Reason for Visit Admit Date Change in consistency of stool November 10:09am Subcutaneous nodule 2025 1:24 pm Subcutaneous nodule February 01, 2025 1:47pm Acquired hypothyroidism April 12, 2025 10:53am Osteoarthritis April 12, 2025 10:5 3am CLIFFORD (obstructive sleep apnea) April 12, 2025 10:53am Essential hypertension April 12, 2025 1 0:53am Controlled type 2 diabetes mellitus April 12, 2025 10:53am Change in bowel habits April 12, 2025 1 0:53am Osteoporosis April 12, 2025 10:5 3am CKD (chronic kidney disease) stage 3, GF R 30-59 ml/min April 12, 2025 10:53am CAD (coronary artery disease) April 12, 2025 10:53am Recurrent UTI April 12, 2025 10:5 3am Obesity (BMI 30-39.9) April 12, 2025 10 :53am Chief Complaint Admit Date SUBCUTANEOUS NODULE OF ABD December 20, 025 9:49am SUBCUTANEOUS NODULE 2025 1:24 pm INT ORDER January 07, 2025 12: 25pm SUBCUTANEOUS NODULE 1 M FU February 01, 2025 1:47pm lower February 22, 2025 12:58 pm 6 M FU April 12, 2025 10:5 3am Reason for Visit Admit Date Subcutaneous nodule 2025 1:24 pm Subcutaneous nodule February 01, 2025 1:47pm Acquired hypothyroidism April 12, 2025 10:53am Osteoarthritis April 12, 2025 10:5 3am CLIFFORD (obstructive sleep apnea) April 12, 2025 10:53am Essential hypertension April 12, 2025 1 0:53am Controlled type 2 diabetes mellitus April 12, 2025 10:53am Change in bowel habits April 12, 2025 1 0:53am Osteoporosis April 12, 2025 10:5 3am CKD (chronic kidney disease) stage 3, GF R 30-59 ml/min April 12, 2025 10:53am CAD (coronary artery disease) April 12, 2025 10:53am Recurrent UTI April 12, 2025 10:5 3am Obesity (BMI 30-39.9) April 12, 2025 10 :53am Chief Complaint Admit Date SUBCUTANEOUS NODULE 1 M FU February 01, 2025 1:47pm lower February 22, 2025 12:58 pm 6 M FU April 12, 2025 10:5 3am Increased SOB, 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 [facility] May 13, 2025 10:42am Reason for Visit Admit Date Subcutaneous nodule February 01, 2025 1:47pm Acquired hypothyroidism April 12, 2025 10:53am Osteoarthritis April 12, 2025 10:5 3am CLIFFORD (obstructive sleep apnea) April 12, 2025 10:53am Essential hypertension April 12, 2025 1 0:53am Controlled type 2 diabetes mellitus April 12, 2025 10:53am Change in bowel habits April 12, 2025 1 0:53am Osteoporosis April 12, 2025 10:5 3am CKD (chronic kidney disease) stage 3, GF R 30-59 ml/min April 12, 2025 10:53am CAD (coronary artery disease) April 12, 2025 10:53am Recurrent UTI April 12, 2025 10:5 3am Obesity (BMI 30-39.9) April 12, 2025 10 :53am Aortic stenosis May 13, 2025 10 :42am Coronary artery disease May 13 10:42am Chronic pericarditis with effusion Augus t 2024 10:42am History of permanent cardiac pacemaker p lacement May 13, 2025 10:42am LVH (left ventricular hypertrophy) Augus t 2024 10:42am Sick sinus syndrome May 13, 2025 10 :42am Chief Complaint Admit Date SUBCUTANEOUS NODULE 1 M FU February 01, 2025 1:47pm lower February 22, 2025 12:58 pm 6 M FU April 12, 2025 10:5 3am Increased SOB, 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 [facility] May 13, 2025 10:42am E ORDERS May 13, 2025 12 :13pm 3mo chronic uti f/u May 17, 2025 11 :09am Reason for Visit Admit Date Subcutaneous nodule February 01, 2025 1:47pm Acquired hypothyroidism April 12, 2025 10:53am Osteoarthritis April 12, 2025 10:5 3am CLIFFORD (obstructive sleep apnea) April 12, 2025 10:53am Essential hypertension April 12, 2025 1 0:53am Controlled type 2 diabetes mellitus April 12, 2025 10:53am Change in bowel habits April 12, 2025 1 0:53am Osteoporosis April 12, 2025 10:5 3am CKD (chronic kidney disease) stage 3, GF R 30-59 ml/min April 12, 2025 10:53am CAD (coronary artery disease) April 12, 2025 10:53am Recurrent UTI April 12, 2025 10:5 3am Obesity (BMI 30-39.9) April 12, 2025 10 :53am Aortic stenosis May 13, 2025 10 :42am Coronary artery disease May 13 10:42am Chronic pericarditis with effusion Augus t 2024 10:42am History of permanent cardiac pacemaker p lacement May 13, 2025 10:42am LVH (left ventricular hypertrophy) Augus t 2024 10:42am Sick sinus syndrome May 13, 2025 10 :42am Chronic UTI May 17, 2025 11 :09am Chief Complaint Admit Date SUBCUTANEOUS NODULE 1 M FU February 01, 2025 1:47pm lower February 22, 2025 12:58 pm 6 M FU April 12, 2025 10:5 3am Increased SOB, 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 [facility] May 13, 2025 10:42am E ORDERS May 13, 2025 12 :13pm 3mo chronic uti f/u May 17, 2025 11 :09am ACUTE-ANEMIC May 17, 2025 1: 05pm Reason for Visit Admit Date Subcutaneous nodule February 01, 2025 1:47pm Acquired hypothyroidism April 12, 2025 10:53am Osteoarthritis April 12, 2025 10:5 3am CLIFFORD (obstructive sleep apnea) April 12, 2025 10:53am Essential hypertension April 12, 2025 1 0:53am Controlled type 2 diabetes mellitus April 12, 2025 10:53am Change in bowel habits April 12, 2025 1 0:53am Osteoporosis April 12, 2025 10:5 3am CKD (chronic kidney disease) stage 3, GF R 30-59 ml/min April 12, 2025 10:53am CAD (coronary artery disease) April 12, 2025 10:53am Recurrent UTI April 12, 2025 10:5 3am Obesity (BMI 30-39.9) April 12, 2025 10 :53am Aortic stenosis May 13, 2025 10 :42am Coronary artery disease May 13 10:42am Chronic pericarditis with effusion Augus t 2024 10:42am History of permanent cardiac pacemaker p lacement May 13, 2025 10:42am LVH (left ventricular hypertrophy) Augus t 2024 10:42am Sick sinus syndrome May 13, 2025 10 :42am Chronic UTI May 17, 2025 11 :09am Anemia May 17, 2025 1: 05pm Chief Complaint Admit Date SUBCUTANEOUS NODULE 1 M FU February 01, 2025 1:47pm lower February 22, 2025 12:58 pm 6 M FU April 12, 2025 10:5 3am Increased SOB, 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 [facility] May 13, 2025 10:42am E ORDERS May 13, 2025 12 :13pm 3mo chronic uti f/u May 17, 2025 11 :09am ACUTE-ANEMIC May 17, 2025 1: 05pm 1 Y FU May 24, 2025 10 :42am Reason for Visit Admit Date Subcutaneous nodule February 01, 2025 1:47pm Acquired hypothyroidism April 12, 2025 10:53am Osteoarthritis April 12, 2025 10:5 3am CLIFFORD (obstructive sleep apnea) April 12, 2025 10:53am Essential hypertension April 12, 2025 1 0:53am Controlled type 2 diabetes mellitus April 12, 2025 10:53am Change in bowel habits April 12, 2025 1 0:53am Osteoporosis April 12, 2025 10:5 3am CKD (chronic kidney disease) stage 3, GF R 30-59 ml/min April 12, 2025 10:53am CAD (coronary artery disease) April 12, 2025 10:53am Recurrent UTI April 12, 2025 10:5 3am Obesity (BMI 30-39.9) April 12, 2025 10 :53am Aortic stenosis May 13, 2025 10 :42am Coronary artery disease May 13 10:42am Shortness of breath May 13, 2025 10 :42am Chronic pericarditis with effusion Augus t 2024 10:42am History of permanent cardiac pacemaker p lacement May 13, 2025 10:42am LVH (left ventricular hypertrophy) Augus t 2024 10:42am Sick sinus syndrome May 13, 2025 10 :42am Constipation May 17, 2025 11 :09am Diabetes May 17, 2025 11 :09am Nocturnal enuresis May 17, 2025 11 :09am Overactive bladder May 17, 2025 11 :09am Urge incontinence May 17, 2025 11 :09am Vaginal atrophy May 17, 2025 11 :09am Chronic UTI May 17, 2025 11 :09am Anemia May 17, 2025 1: 05pm Anemia May 24, 2025 10 :42am Aortic stenosis May 24, 2025 10 :42am Shortness of breath May 24, 2025 10 :42am Obesity May 24, 2025 10 :42am CLIFFORD (obstructive sleep apnea) April 10:42am Secondary pulmonary arterial hypertensio n May 24, 2025 10:42am Chief Complaint Admit Date SUBCUTANEOUS NODULE 1 M FU February 01, 2025 1:47pm lower February 22, 2025 12:58 pm 6 M FU April 12, 2025 10:5 3am Increased SOB, 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 [facility] May 13, 2025 10:42am E ORDERS May 13, 2025 12 :13pm 3mo chronic uti f/u May 17, 2025 11 :09am ACUTE-ANEMIC May 17, 2025 1: 05pm 1 Y FU May 24, 2025 10 :42am INT LAB ORDER May 27, 2025 11 :51am Chief Complaint Admit Date lower February 22, 2025 12:58 pm 6 M FU April 12, 2025 10:5 3am Increased SOB, 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 Shortness of breath June 16, 2025 11:22am CLIFFORD,NEW BIPAP June 17, 2025 2:52pm Reason for Visit Admit Date Acquired hypothyroidism April 12, 2025 10:53am Osteoarthritis April 12, 2025 10:5 3am CLIFFORD (obstructive sleep apnea) April 12, 2025 10:53am Essential hypertension April 12, 2025 1 0:53am Controlled type 2 diabetes mellitus April 12, 2025 10:53am Change in bowel habits April 12, 2025 1 0:53am Osteoporosis April 12, 2025 10:5 3am CKD (chronic kidney disease) stage 3, GF R 30-59 ml/min April 12, 2025 10:53am CAD (coronary artery disease) April 12, 2025 10:53am Recurrent UTI April 12, 2025 10:5 3am Obesity (BMI 30-39.9) April 12, 2025 10 :53am Aortic stenosis May 13, 2025 10 :42am Coronary artery disease May 13 10:42am Shortness of breath May 13, 2025 10 :42am Chronic pericarditis with effusion Augus t 2024 10:42am History of permanent cardiac pacemaker p lacement May 13, 2025 10:42am LVH (left ventricular hypertrophy) Augus t 2024 10:42am Sick sinus syndrome May 13, 2025 10 :42am Constipation May 17, 2025 11 :09am Diabetes May 17, 2025 11 :09am Nocturnal enuresis May 17, 2025 11 :09am Overactive bladder May 17, 2025 11 :09am Urge incontinence May 17, 2025 11 :09am Vaginal atrophy May 17, 2025 11 :09am Chronic UTI May 17, 2025 11 :09am Anemia May 17, 2025 1: 05pm Depression screening May 17, 2025 1 :05pm Anemia May 24, 2025 10 :42am Aortic stenosis May 24, 2025 10 :42am Shortness of breath May 24, 2025 10 :42am Obesity May 24, 2025 10 :42am CLIFFORD (obstructive sleep apnea) April 10:42am Secondary pulmonary arterial hypertensio n May 24, 2025 10:42am Anemia June 16, 2025 11:22am Shortness of breath June 16, 2025 11:22am CKD (chronic kidney disease) stage 4, GF R 15-29 ml/min June 16, 2025 11:22am Diastolic dysfunction June 16 11:22am Chief Complaint Admit Date 6 M FU April 12, 2025 10:5 3am Increased SOB, 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 Shortness of breath June 16, 2025 11:22am CLIFFORD,NEW BIPAP June 17, 2025 2:52pm med and UTI f/u June 21, 2025 11:27am Amb Documentation June 22, 2025 9:48am try a different mask June 22 2:01pm Reason for Visit Admit Date Acquired hypothyroidism April 12, 2025 10:53am Osteoarthritis April 12, 2025 10:5 3am CLIFFORD (obstructive sleep apnea) April 12, 2025 10:53am Essential hypertension April 12, 2025 1 0:53am Controlled type 2 diabetes mellitus April 12, 2025 10:53am Change in bowel habits April 12, 2025 1 0:53am Osteoporosis April 12, 2025 10:5 3am CKD (chronic kidney disease) stage 3, GF R 30-59 ml/min April 12, 2025 10:53am CAD (coronary artery disease) April 12, 2025 10:53am Recurrent UTI April 12, 2025 10:5 3am Obesity (BMI 30-39.9) April 12, 2025 10 :53am Aortic stenosis May 13, 2025 10 :42am Coronary artery disease May 13 10:42am Shortness of breath May 13, 2025 10 :42am Chronic pericarditis with effusion Augus t 2024 10:42am History of permanent cardiac pacemaker p lacement May 13, 2025 10:42am LVH (left ventricular hypertrophy) Augus t 2024 10:42am Sick sinus syndrome May 13, 2025 10 :42am Constipation May 17, 2025 11 :09am Diabetes May 17, 2025 11 :09am Nocturnal enuresis May 17, 2025 11 :09am Overactive bladder May 17, 2025 11 :09am Urge incontinence May 17, 2025 11 :09am Vaginal atrophy May 17, 2025 11 :09am Chronic UTI May 17, 2025 11 :09am Anemia May 17, 2025 1: 05pm Depression screening May 17, 2025 1 :05pm Anemia May 24, 2025 10 :42am Aortic stenosis May 24, 2025 10 :42am Shortness of breath May 24, 2025 10 :42am Obesity May 24, 2025 10 :42am CLIFFORD (obstructive sleep apnea) April 10:42am Secondary pulmonary arterial hypertensio n May 24, 2025 10:42am Anemia June 16, 2025 11:22am Shortness of breath June 16, 2025 11:22am CKD (chronic kidney disease) stage 4, GF R 15-29 ml/min June 16, 2025 11:22am Diastolic dysfunction June 16 11:22am Constipation June 21, 2025 11:27am Diabetes June 21, 2025 11:27am Nocturnal enuresis June 21, 2025 11:27am Overactive bladder June 21, 2025 11:27am Urge incontinence June 21, 2025 11:27am Vaginal atrophy June 21, 2025 11:27am Chronic UTI June 21, 2025 11:27am Chief Complaint Admit Date 6 M FU April 12, 2025 10:5 3am Increased SOB, 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 Shortness of breath June 16, 2025 11:22am CLIFFORD,NEW BIPAP June 17, 2025 2:52pm med and UTI f/u June 21, 2025 11:27am Amb Documentation June 22, 2025 9:48am try a different mask June 22 2:01pm EORDERS June 29, 2025 12 :39pm IRON DEF. ANEMIA July 04, 2025 1: 43pm Reason for Visit Admit Date Acquired hypothyroidism April 12, 2025 10:53am Osteoarthritis April 12, 2025 10:5 3am CLIFFORD (obstructive sleep apnea) April 12, 2025 10:53am Essential hypertension April 12, 2025 1 0:53am Controlled type 2 diabetes mellitus April 12, 2025 10:53am Change in bowel habits April 12, 2025 1 0:53am Osteoporosis Trinh 15th, 2025 10:5 3am CKD (chronic kidney disease) stage 3, GF R 30-59 ml/min April 12, 2025 10:53am CAD (coronary artery disease) April 12, 2025 10:53am Recurrent UTI April 12, 2025 10:5 3am Obesity (BMI 30-39.9) April 12, 2025 10 :53am Aortic stenosis May 13, 2025 10 :42am Coronary artery disease May 13 10:42am Shortness of breath May 13, 2025 10 :42am Chronic pericarditis with effusion Augus t 2024 10:42am History of permanent cardiac pacemaker p lacement May 13, 2025 10:42am LVH (left ventricular hypertrophy) Aprus 2024 10:42am Sick sinus syndrome May 13, 2025 10 :42am Constipation May 17, 2025 11 :09am Diabetes May 17, 2025 11 :09am Nocturnal enuresis May 17, 2025 11 :09am Overactive bladder May 17, 2025 11 :09am Urge incontinence May 17, 2025 11 :09am Vaginal atrophy May 17, 2025 11 :09am Chronic UTI May 17, 2025 11 :09am Anemia May 17, 2025 1: 05pm Depression screening May 17, 2025 1 :05pm Aortic stenosis May 24, 2025 10 :42am Shortness of breath May 24, 2025 10 :42am Anemia May 24, 2025 10 :42am Obesity May 24, 2025 10 :42am CLIFFORD (obstructive sleep apnea) April 10:42am Secondary pulmonary arterial hypertensio n May 24, 2025 10:42am Shortness of breath June 16, 2025 11:22am Anemia June 16, 2025 11:22am CKD (chronic kidney disease) stage 4, GF R 15-29 ml/min June 16, 2025 11:22am Diastolic dysfunction June 16 11:22am Constipation June 21, 2025 11:27am Diabetes June 21, 2025 11:27am Nocturnal enuresis June 21, 2025 11:27am Overactive bladder June 21, 2025 11:27am Urge incontinence June 21, 2025 11:27am Vaginal atrophy June 21, 2025 11:27am Chronic UTI June 21, 2025 11:27am Anemia July 04, 2025 1: 43pm Chronic renal failure July 04, 2025 1:43pm Iron deficiency anemia July 04, 2025 1:43pm Chief Complaint Admit Date 6 M FU April 12, 2025 10:5 3am Increased SOB, 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 Shortness of breath June 16, 2025 11:22am CLIFFORD,NEW BIPAP June 17, 2025 2:52pm med and UTI f/u June 21, 2025 11:27am Amb Documentation June 22, 2025 9:48am try a different mask June 22 2:01pm EORDERS June 29, 2025 12 :39pm IRON DEF. ANEMIA July 04, 2025 1: 43pm Chest pain July 07, 2025 11 :10pm Transitional Care Management June 2:44pm 1 WK - REVIEW LABS July 11, 2025 8 :41am LABS July 13, 2025 1 0:11am CHOLELITHIASIS July 19, 2025 9 :35am IV IRON July 21, 2025 9 :30am Reason for Visit Admit Date Acquired hypothyroidism April 12, 2025 10:53am Osteoarthritis April 12, 2025 10:5 3am CLIFFORD (obstructive sleep apnea) April 12, 2025 10:53am Essential hypertension April 12, 2025 1 0:53am Controlled type 2 diabetes mellitus April 12, 2025 10:53am Change in bowel habits April 12, 2025 1 0:53am Osteoporosis April 12, 2025 10:5 3am CKD (chronic kidney disease) stage 3, GF R 30-59 ml/min April 12, 2025 10:53am CAD (coronary artery disease) April 12, 2025 10:53am Recurrent UTI April 12, 2025 10:5 3am Obesity (BMI 30-39.9) April 12, 2025 10 :53am Aortic stenosis May 13, 2025 10 :42am Coronary artery disease May 13 10:42am Shortness of breath May 13, 2025 10 :42am Chronic pericarditis with effusion Augus t 2024 10:42am History of permanent cardiac pacemaker p lacement May 13, 2025 10:42am LVH (left ventricular hypertrophy) Augus t 2024 10:42am Sick sinus syndrome May 13, 2025 10 :42am Constipation May 17, 2025 11 :09am Diabetes May 17, 2025 11 :09am Nocturnal enuresis May 17, 2025 11 :09am Overactive bladder May 17, 2025 11 :09am Urge incontinence May 17, 2025 11 :09am Vaginal atrophy May 17, 2025 11 :09am Chronic UTI May 17, 2025 11 :09am Anemia May 17, 2025 1: 05pm Depression screening May 17, 2025 1 :05pm Aortic stenosis May 24, 2025 10 :42am Shortness of breath May 24, 2025 10 :42am Anemia May 24, 2025 10 :42am Obesity May 24, 2025 10 :42am CLIFFORD (obstructive sleep apnea) April 10:42am Secondary pulmonary arterial hypertensio n May 24, 2025 10:42am Shortness of breath June 16, 2025 11:22am Anemia June 16, 2025 11:22am CKD (chronic kidney disease) stage 4, GF R 15-29 ml/min June 16, 2025 11:22am Diastolic dysfunction June 16 11:22am Constipation June 21, 2025 11:27am Diabetes June 21, 2025 11:27am Nocturnal enuresis June 21, 2025 11:27am Overactive bladder June 21, 2025 11:27am Urge incontinence June 21, 2025 11:27am Vaginal atrophy June 21, 2025 11:27am Chronic UTI June 21, 2025 11:27am Anemia July 04, 2025 1: 43pm Chronic renal failure July 04, 2025 1:43pm Iron deficiency anemia July 04, 2025 1:43pm Cholelithiasis July 08, 2025 2 :44pm Anemia July 11, 2025 8 :41am Chronic renal failure July 11, 2025 8:41am Iron deficiency anemia July 11 8:41am Medications Administered Section Inactive Administered Medications - up to 3 most recent administrations Medication Order MAR Action Action Date Dose Rate Site perflutren lipid microspheres 1.3 mL in NaCl (PF) 0.9% 10 mL injection (DEFINITY) INTRAVENOUS, DIRECTED NEEDED, 1 dose, Starting on 12/12/21 at 2219, Until Michaela 05/30/22 at 1348, Per Protocol - for use during ECHO procedure only, If no IV access, insert saline lock prior to administering contrast. Discontinue saline lock post exam. If patient has central line or IVAD, may access for administration according to line specific nursing protocol. Once exam is complete, flush line and de-access per line specific nursing protocol.Dilute 1.3 ml of Definity with 8.7 ml of preservative-free saline. Given 05/30/2022 1:48 PM EDT 1.3 mL Additional Source Comments INFORMATION SOURCE (unrecogn ized section and content) DATE CREATED AUTHOR 03/24/2018 [facility] [employer] DATE CREATED AUTHOR AUTHOR'S ORGANIZ ATION 03/25/2018 [facility] DATE CREATED AUTHOR AUTHOR'S ORGANIZ ATION 07/27/2018 [facility] [employer] DATE CREATED AUTHOR AUTHOR'S ORGANIZ ATION 09/06/2018 [facility] DATE CREATED AUTHOR AUTHOR'S ORGANIZ ATION 12/09/2019 [facility] [employer] DATE CREATED AUTHOR AUTHOR'S ORGANIZ ATION 03/01/2020 [facility] [employer] DATE CREATED AUTHOR AUTHOR'S ORGANIZ ATION 08/24/2020 [facility] DATE CREATED AUTHOR AUTHOR'S ORGANIZ ATION 12/11/2021 [facility] DATE CREATED AUTHOR AUTHOR'S ORGANIZ ATION 05/25/2022 [facility] DATE CREATED AUTHOR AUTHOR'S ORGANIZ ATION 01/21/2024 [facility] DATE CREATED AUTHOR AUTHOR'S ORGANIZ ATION 06/21/2025 [facility] DATE CREATED AUTHOR AUTHOR'S ORGANIZ ATION 08/05/2025 [facility] Care Teams (unrecognized sec tion and content) Configuration Management Manager Relationship Specialty Start Date End Date Noris Youngblood MD PCP - General 02/28/15 Configuration Management Manager Relationship Specialty Start Date End Date SantiagoNoris barrios [address] [place] [address] PCP - General Internal Medicine 07/06/15 Keith Rodrigez MD [address] [place] [address] [facility] 03/27/21 Garth Hoffman MD [address] [place] [address] Primary Staff Physician Cardiology 05/11/21 Configuration Management Manager Relationship Specialty Start Date End Date Noris Youngblood [address] [place] [address] PCP - General Internal Medicine 07/06/15 Keith Rodrigez MD [address] [place] [address] [facility] 03/27/21 Garth Hoffman MD [address] [place] [address] Primary Staff Physician Cardiology 05/11/21 Configuration Management Manager Relationship Specialty Start Date End Date Noris Youngblood [address] [place] [address] PCP - General Internal Medicine 07/06/15 Keith Rodrigez MD [address] [place] [address] [facility] 03/27/21 Garth Hoffman MD [address] [place] [address] Primary Staff Physician Cardiology 05/11/21 Configuration Management Manager Relationship Specialty Start Date End Date Rylie Noris Wilson [address] [facility] [address] [place] [address] PCP - General Internal Medicine 07/06/15 Keith Rodrigez MD [address] [place] [address] [facility] 03/27/21 Garth Hoffman MD [address] [place] [address] Primary Staff Physician Cardiology 05/11/21 Configuration Management Manager Relationship Specialty Start Date End Date Rylie Noris Wilson [address] [facility] [address] [place] [address] PCP - General Internal Medicine 07/06/15 Keith Rodrigez MD [address] [place] [address] [facility] 03/27/21 Garth Hoffman MD [address] [place] [address] Primary Staff Physician Cardiology 05/11/21 Configuration Management Manager Relationship Specialty Start Date End Date Rylie Noris Wilson [address] [facility] [address] [place] [address] PCP - General Internal Medicine 07/06/15 Keith Rodrigez MD [address] [place] [address] [facility] 03/27/21 Garth Hoffman MD [address] [place] [address] Primary Staff Physician Cardiology 05/11/21 Configuration Management Manager Relationship Specialty Start Date End Date Noris Youngblood Steve [address] [place] [address] PCP - General Internal Medicine 07/06/15 Keith Rodrigez MD [address] [place] [address] [facility] 03/27/21 Garth Hoffman MD [address] [place] [address] Primary Staff Physician Cardiology 05/11/21 Configuration Management Manager Relationship Specialty Start Date End Date Rylie Noris Wilson [address] [place] [address] PCP - General Internal Medicine 07/06/15 Keith Rodrigez MD [address] [place] [address] [facility] 03/27/21 Garth Hoffman MD [address] [place] [address] Primary Staff Physician Cardiology 05/11/21 Configuration Management Manager Relationship Specialty Start Date End Date RylieNoris [address] [place] [address] PCP - General Internal Medicine 07/06/15 Keith Rodrigez MD [address] [place] [address] [facility] 03/27/21 Garth Hoffman MD [address] [place] [address] Primary Staff Physician Cardiology 05/11/21 Configuration Management Manager Relationship Specialty Start Date End Date Noris Youngblood [address] [place] [address] PCP - General Internal Medicine 07/06/15 Keith Rodrigez MD [address] [place] [address] [facility] 03/27/21 Garth Hoffman MD [address] [place] [address] Primary Staff Physician Cardiology 05/11/21 Configuration Management Manager Relationship Specialty Start Date End Date SantiagoNoris barrios Lamontyuriy [address] [facility] [address] [place] [address] PCP - General Internal Medicine 07/06/15 Keith Rodrigez MD [address] [place] [address] [facility] 03/27/21 Garth Hoffman MD [address] [place] [address] Primary Staff Physician Cardiology 05/11/21 Team Status: Active Member Role Status Dates Dr. Noris Youngblood MD Family Provider Active Dr. Jorge Benavides MD Primary Care Provider Active Team Status: Inactive Member Role Status Dates Dr. Noris Youngblood MD Referring Provider Active Dr. Jorge Benavides MD Primary Care Provider, Attendi Provider Active Team Status: Inactive Member Role Status Dates Dr. Jorge Benavides MD Primary Care Provider Active Natalee Devlin Active Dr. Jesse Sykes MD Attending Provider, Referring Pro vider Active Team Status: Active Member Role Status Dates Dr. Jorge Benavides MD Primary Care Provider Active Dr. Beto Waggoner MD Attending Provider Active Dr. Ros Nice DO Referring Provider Active Team Status: Inactive Member Role Status Dates Dr. Jorge Benavides MD Primary Care Provider, Referri ng Provider Active JUSTIN Barrett Attending Provider Active Team Status: Inactive Member Role Status Dates Dr. Jorge Benavides MD Primary Care Provider Active Dr. Ros Nice DO Attending Provider, Referring Barbra lópez Active Team Status: Inactive Member Role Status Dates Dr. Jorge Benavides MD Primary Care Provider Active Dr. Ros Nice DO Attending Provider Active Team Status: Inactive Member Role Status Dates Dr. Jorge Benavides MD Primary Care Provider, Attendi ng Provider Active Configuration Management Manager Relationship Specialty Start Date End Date Noris Youngblood MD [address] [facility] [address] [place] [address] PCP - General Internal Medicine 07/06/15 Keith Rodrigez MD [address] [place] [address] [facility] 03/27/21 Garth Hoffman MD [address] [place] [address] Primary Staff Physician Cardiology 05/11/21 Configuration Management Manager Relationship Specialty Start Date End Date Noris Youngblood MD [address] [facility] [address] [place] [address] PCP - General Internal Medicine 07/06/15 Keith Rodrigez MD [address] [place] [address] [facility] 03/27/21 Garth Hoffman MD [address] [place] [address] Primary Staff Physician Cardiology 05/11/21 Configuration Management Manager Relationship Specialty Start Date End Date Noris Youngblood MD [address] [facility] [address] [place] [address] PCP - General Internal Medicine 07/06/15 Keith Rodrigez MD [address] [place] [address] [facility] 03/27/21 Garth Hoffman MD [address] [place] [address] Primary Staff Physician Cardiology 05/11/21 Team Status: Inactive Member Role Status Dates Dr. Jorge Benavides MD Primary Care Provider, Referri Provider Active Dr. Andrae Dumont DO Attending Provider Active Team Status: Active Member Role Status Dates Dr. Jorge Benavides MD Primary Care Provider Active Dr. Juancho Fall MD Emergency Provider Active Dr. Harrison Wright MD Admit Provider, Attending Pro vider Active Team Status: Active Member Role Status Dates Dr. Jorge Benavides MD Primary Care Provider Active Dr. Juancho Fall MD Emergency Provider Active Dr. Harrison Wright MD Admit Provider, Attending Provider, Other Provider Active Dr. Brady Frye MD Other Provider Active Team Status: Active Member Role Status Dates Dr. Jorge Benavides MD Primary Care Provider Active Dr. Juancho Fall MD Emergency Provider Active Dr. Harrison Wright MD Admit Provider, Other Provide r Active Dr. Brady Frye MD Attending Provider, Other Prov ider Active Dr. Lamonte Guevara MD Other Provider Active Team Status: Active Member Role Status Dates Dr. Jorge Benavides MD Primary Care Provider Active Dr. Juancho Fall MD Emergency Provider Active Dr. Harrison Wright MD Admit Provider, Other Provide r Active Dr. Brady Frye MD Other Provider Active Dr. Lamonte Guevara MD Attending Provider, Other Provi karen Active Team Status: Inactive Member Role Status Dates Dr. Jorge Benavides MD Primary Care Provider Active Dr. Juancho Fall MD Emergency Provider Active Dr. Harrison Wright MD Admit Provider, Other Provide r Active Dr. Brady Frye MD Other Provider Active Dr. Lamonte Guevara MD Attending Provider Active Configuration Management Manager Relationship Specialty Start Date End Date Noris Youngblood MD [address] [place] [address] PCP - General Internal Medicine 07/06/15 Keith Rodrigez MD [address] [place] [address] [facility] 03/27/21 Garth Hoffman MD [address] [place] [address] Primary Staff Physician Cardiology 05/11/21 Configuration Management Manager Relationship Specialty Start Date End Date Noris Youngblood MD [address] [facility] [address] [place] [address] PCP - General Internal Medicine 07/06/15 Keith Rodrigez MD [address] [place] [address] [facility] 03/27/21 Garth Hoffman MD [address] [place] [address] Primary Staff Physician Cardiology 05/11/21 Configuration Management Manager Relationship Specialty Start Date End Date Noris Youngblood MD [address] [facility] [address] [place] [address] PCP - General Internal Medicine 07/06/15 Keith Rodrigez MD [address] [place] [address] [facility] 03/27/21 Garth Hoffman MD [address] [place] [address] Primary Staff Physician Cardiology 05/11/21 Configuration Management Manager Relationship Specialty Start Date End Date Noris Youngblood MD [address] [facility] 8 [place] [address] PCP - General Internal Medicine 07/06/15 Keith Rodrigez MD [address] [place] [address] [facility] 03/27/21 Garth Hoffman MD [address] [place] [address] Primary Staff Physician Cardiology 05/11/21 Configuration Management Manager Relationship Specialty Start Date End Date Noris Youngblood MD [address] [facility] [address] [place] [address] PCP - General Internal Medicine 07/06/15 Keith Rodrigez MD [address] [place] [address] [facility] 03/27/21 Garth Hoffman MD [address] [place] [address] Primary Staff Physician Cardiology 05/11/21 Configuration Management Manager Relationship Specialty Start Date End Date Noris Youngblood MD [address] [facility] [address] [place] [address] PCP - General Internal Medicine 07/06/15 Keith Rodrigez MD [address] [place] [address] [facility] 03/27/21 Garth Hoffman MD [address] [place] [address] Primary Staff Physician Cardiology 05/11/21 Configuration Management Manager Relationship Specialty Start Date End Date Noris Youngblood MD [address] [facility] [address] [place] [address] PCP - General Internal Medicine 07/06/15 Keith Rodrigez MD [address] [place] [address] [facility] 03/27/21 Garth Hoffman MD [address] [place] [address] Primary Staff Physician Cardiology 05/11/21 Chandni Starr, [facility] [address] [place] [address] Transitional Care Pharmacist Pharmacy 02/05/23 03/07/23 Configuration Management Manager Relationship Specialty Start Date End Date Noris Youngblood MD [address] [facility] [address] [place] [address] PCP - General Internal Medicine 07/06/15 Keith Rodrigez MD [address] [place] [address] [facility] 03/27/21 Garth Hoffman MD [address] [place] [address] Primary Staff Physician Cardiology 05/11/21 Chandni Starr, [facility] [address] [place] [address] Transitional Care Pharmacist Pharmacy 02/05/23 03/07/23 Configuration Management Manager Relationship Specialty Start Date End Date Noris Youngblood MD [address] [facility] [address] [place], [place] [id number] PCP - General Internal Medicine 07/06/15 Keith Rodrigez MD [address] [facility] 2 [place], [place] [address] [facility] 03/27/21 Garth Hoffman MD [address] [place], [place] [address] Primary Staff Physician Cardiology 05/11/21 Chandni Starr, [facility] [address] [place], [place] [id number] Transitional Care Pharmacist Pharmacy 02/05/23 03/07/23 Team Status: Active Member Role Status Dates Dr. Jorge Benavides MD Primary Care Provider Active Dr. Jesse Sykes MD Attending Provider Active Team Status: Inactive Member Role Status Dates Dr. Jorge Benavides MD Primary Care Provider, Referri ng Provider Active Natalee Devlin Attending Provider Active Team Status: Inactive Member Role Status Dates Dr. Jorge Benavides MD Primary Care Provider, Referri ng Provider Active Dr. Imtiaz Pack MD Attending Provider Active Team Status: Active Member Role Status Dates Dr. Jorge Benavides MD Primary Care Provider Active Dr. Julieta Johnson MD Attending Provi karen, Referring Provider, Other Provider Active Team Status: Inactive Member Role Status Dates Dr. Jorge Benavides MD Primary Care Provider Active Dr. Kymberly Leger MD Attending Provider Active Team Status: Inactive Member Role Status Dates Dr. Jorge Benavides MD Primary Care Provider Active Dr. Julieta Johnson MD Attending Provider, Referring Provider Active Configuration Management Manager Relationship Specialty Start Date End Date Noris Youngblood MD [address] [facility] [address] [place], [place] [address] PCP - General Internal Medicine 07/06/15 Keith Rodrigez MD [address] [facility] 2 [place] [address] [facility] 03/27/21 Garth Hoffman MD [address] [place] [address] Primary Staff Physician Cardiology 05/11/21 Team Status: Inactive Member Role Status Dates Dr. Jorge Benavides MD Primary Care Provider Active Razia Maxwell LIDAR SCIENTIST, LIDAR SCIENTIST-C Attending Provider Active Configuration Management Manager Relationship Specialty Start Date End Date Noris Youngblood MD [address] [facility] [address] [place] [address] PCP - General Internal Medicine 07/06/15 Keith Rodrigez MD [address] [place] [address] [facility] 03/27/21 Garth Hoffman MD [address] [place], [place] [address] Primary Staff Physician Cardiology 05/11/21 Team Status: Inactive Member Role Status Dates Dr. Jorge Benavides MD Primary Care Pro vider, Attending Provider, Referring Provider Active Configuration Management Manager Relationship Specialty Start Date End Date Noris Youngblood MD [address] [facility] [address] [place] [address] PCP - General Internal Medicine 07/06/15 Keith Rodrigez MD [address] [place] [address] [facility] 03/27/21 Garth Hoffman MD [address] [place], [place] [id number] Primary Staff Physician Cardiology 05/11/21 Configuration Management Manager Relationship Specialty Start Date End Date Noris Youngblood MD [address] [facility] 8 [place] [address] PCP - General Internal Medicine 07/06/15 Keith Rodrigez MD [address] [place] [address] [facility] 03/27/21 Garth Hoffman MD [address] [place] [address] Primary Staff Physician Cardiology 05/11/21 Configuration Management Manager Relationship Specialty Start Date End Date Noris Youngblood MD [address] [facility] 8 [place] [address] PCP - General Internal Medicine 07/06/15 Keith Rodrigez MD [address] [place] [address] [facility] 03/27/21 Garth Hoffman MD [address] [place] [address] Primary Staff Physician Cardiology 05/11/21 Configuration Management Manager Relationship Specialty Start Date End Date Noris Youngblood MD [address] [facility] [address] [place] [address] PCP - General Internal Medicine 07/06/15 Keith Rodrigez MD [address] [place] [address] [facility] 03/27/21 Garth Hoffman MD [address] [facility] [place] [place] [address] Primary Staff Physician Cardiology 05/11/21 Configuration Management Manager Relationship Specialty Start Date End Date Noris Youngblood MD [address] [facility] [address] [place] [address] PCP - General Internal Medicine 07/06/15 Keith Rodrigez MD [address] [place] [address] [facility] 03/27/21 Garth Hoffman MD [address] [facility] [place] [place] [address] Primary Staff Physician Cardiology 05/11/21 Configuration Management Manager Relationship Specialty Start Date End Date Noris Youngblood MD [address] [facility] [address] [place] [address] PCP - General Internal Medicine 07/06/15 Keith Rodrigez MD [address] [place] [address] [facility] 03/27/21 Garth Hoffman MD [address] [facility] [place] [place] [address] Primary Staff Physician Cardiology 05/11/21 Team Status: Inactive Member Role Status Dates Dr. Jorge Benavides MD Primary Care Provider, Referri ng Provider Active Razia Maxwell LIDAR SCIENTIST, LIDAR SCIENTIST-C Attending Provider Active Team Status: Active Member Role Status Dates Dr. Jorge Benavides MD Primary Care Provider Active Dr. Keith Rodrigez MD Attending Provider, Referring Barbra lópez Active Team Status: Inactive Member Role Status Dates Dr. Jorge Benavides MD Primary Care Provider Active Dr. Keith Rodrigez MD Attending Provider, Referring Barbra lópez Active Configuration Management Manager Relationship Specialty Start Date End Date Noris Youngblood MD [address] [facility] [address] [place] [address] PCP - General Internal Medicine 07/06/15 Keith Rodrigez MD [address] [place] [address] [facility] 03/27/21 Garth Hoffman MD [address] [place], [place] [address] Primary Staff Physician Cardiology 05/11/21 Configuration Management Manager Relationship Specialty Start Date End Date Jorge Benavides MD [address] [place] [address] PCP - General Internal Medicine 09/15/23 Keith Rodrigez MD [address] [place] [address] [facility] 03/27/21 Garth Hoffman MD [address] [place], [place] [address] Primary Staff Physician Cardiology 05/11/21 Configuration Management Manager Relationship Specialty Start Date End Date Jorge Benavides MD [address] [place] [address] PCP - General Internal Medicine 09/15/23 Keith Rodrigez MD [address] [place] [address] [facility] 03/27/21 Garth Hoffman MD [address] [place] [address] Primary Staff Physician Cardiology 05/11/21 Configuration Management Manager Relationship Specialty Start Date End Date Jorge Benavides MD [address] [place] [place] [address] PCP - General Internal Medicine 09/15/23 Keith Rodrigez MD [address] [place] [address] [facility] 03/27/21 Garth Hoffman MD [address] [place] [address] Primary Staff Physician Cardiology 05/11/21 Configuration Management Manager Relationship Specialty Start Date End Date Jorge Benavides MD [address] [place] [address] PCP - General Internal Medicine 09/15/23 Keith Rodrigez MD [address] [facility] 2 [place] [address] [facility] 03/27/21 Garth Hoffman MD [address] [place] [address] Primary Staff Physician Cardiology 05/11/21 Configuration Management Manager Relationship Specialty Start Date End Date Jorge Benavides MD [address] [place] [address] PCP - General Internal Medicine 09/15/23 Keith Rodrigez MD [address] [place] [address] [facility] 03/27/21 Garth Hoffman MD [address] [place] [address] Primary Staff Physician Cardiology 05/11/21 Team Status: Inactive Member Role Status Dates Dr. Jorge Benavides MD Primary Care Provider Active Dr. Ruben Brar DO Emergency Provider Active Configuration Management Manager Relationship Specialty Start Date End Date Jorge Benavides MD [address] [facility] [place] [address] PCP - General Internal Medicine 09/15/23 Keith Rodrigez MD [address] [place] [address] [facility] 03/27/21 Garth Hoffman MD [address] [place], [place] [address] Primary Staff Physician Cardiology 05/11/21 Configuration Management Manager Relationship Specialty Start Date End Date Jorge Benavides MD [address] [place], [place] [address] PCP - General Internal Medicine 09/15/23 Keith Rodrigez MD [address] [place] [address] [facility] 03/27/21 Garth Hoffman MD [address] [place], [place] [address] Primary Staff Physician Cardiology 05/11/21 Configuration Management Manager Relationship Specialty Start Date End Date Jorge Benavides MD [address] [place] [address] PCP - General Internal Medicine 09/15/23 Keith Rodrigez MD [address] [place] [address] [facility] 03/27/21 Garth Hoffman MD [address] [place] [address] Primary Staff Physician Cardiology 05/11/21 Configuration Management Manager Relationship Specialty Start Date End Date Jorge Benavides MD [address] [place] [address] PCP - General Internal Medicine 09/15/23 Keith Rodrigez MD [address] [place], [place] [address] [facility] 03/27/21 Garth Hoffman MD [address] [place] [address] Primary Staff Physician Cardiology 05/11/21 Configuration Management Manager Relationship Specialty Start Date End Date Jorge Benavides MD [address] [place] [address] PCP - General Internal Medicine 09/15/23 Keith Rodrigez MD [address] [place] [address] [facility] 03/27/21 Garth Hoffmna MD [address] [place] [address] Primary Staff Physician Cardiology 05/11/21 Configuration Management Manager Relationship Specialty Start Date End Date Jorge Benavides MD [address] [place], [place] [address] PCP - General Internal Medicine 09/15/23 Keith Rodrigez MD [address] [place] [address] [facility] 03/27/21 Garth Hoffman MD [address] [place], [place] 174[address] Primary Staff Physician Cardiology 05/11/21 Configuration Management Manager Relationship Specialty Start Date End Date Jorge Benavides MD [address] [place], [place] [address] PCP - General Internal Medicine 09/15/23 Keith Rodrigez MD [address] [place] [address] [facility] 03/27/21 Garth Hoffman MD [address] [place], [place] [address]22[address] Primary Staff Physician Cardiology 05/11/21 Configuration Management Manager Relationship Specialty Start Date End Date Jorge Benavides MD [address] [place] [address] PCP - General Internal Medicine 09/15/23 Keith Rodrigez MD [address] [place] [address] [facility] 03/27/21 Garth Hoffman MD [address] [place] [address] Primary Staff Physician Cardiology 05/11/21 Configuration Management Manager Relationship Specialty Start Date End Date Jorge Benavides MD [address] [address] PCP - General Internal Medicine 09/15/23 Keith Rodrigez MD [address] [place] [address] [facility] 03/27/21 Garth Hoffman MD [address] [place] [address] Primary Staff Physician Cardiology 05/11/21 Configuration Management Manager Relationship Specialty Start Date End Date Jorge Benavides MD [address] [place] [address] PCP - General Internal Medicine 09/15/23 Keith Rodrigez MD [address] [place] [address] [facility] 03/27/21 Garth Hoffman MD [address] [place] [address] Primary Staff Physician Cardiology 05/11/21 Configuration Management Manager Relationship Specialty Start Date End Date Jorge Benavides MD [address] [place] [address] PCP - General Internal Medicine 09/15/23 Keith Rodrigez MD [address] [place] [address] [facility] 03/27/21 Garth Hoffman MD [address] [place] [address] Primary Staff Physician Cardiology 05/11/21 Configuration Management Manager Relationship Specialty Start Date End Date Jorge Benavides MD [address] [facility] [place] [address] PCP - General Internal Medicine 09/15/23 Keith Rodrigez MD [address] [place] [address] [facility] 03/27/21 Garth Hoffman MD [address] [place] [address] Primary Staff Physician Cardiology 05/11/21 Configuration Management Manager Relationship Specialty Start Date End Date Jorge Benavides MD [address] [place] [address] PCP - General Internal Medicine 09/15/23 Keith Rodrigez MD [address] [place] [address] [facility] 03/27/21 Garth Hoffman MD [address] [place] [address] Primary Staff Physician Cardiology 05/11/21 Configuration Management Manager Relationship Specialty Start Date End Date Jorge Benavides MD [address] [place] [address] PCP - General Internal Medicine 09/15/23 Keith Rodrigez MD [address] [facility] 2 [place] [address] [facility] 03/27/21 Garth Hoffman MD [address] [place] [address] Primary Staff Physician Cardiology 05/11/21 Configuration Management Manager Relationship Specialty Start Date End Date Jorge Benavides MD [address] [place] [address] PCP - General Internal Medicine 09/15/23 Keith Rodrigez MD [address] [facility] 2 [place] [address] [facility] 03/27/21 Garth Hoffman MD [address] [place] [address] Primary Staff Physician Cardiology 05/11/21 Configuration Management Manager Relationship Specialty Start Date End Date Jorge Benavides MD [address] [place] [address] PCP - General Internal Medicine 09/15/23 Keith Rodrigez MD [address] [place] [address] [facility] 03/27/21 Garth Hoffman MD [address] [place] [address] Primary Staff Physician Cardiology 05/11/21 Configuration Management Manager Relationship Specialty Start Date End Date Jorge Benavides MD [address] [place] [address] PCP - General Internal Medicine 09/15/23 Keith Rodrigez MD [address] [place] [address] [facility] 03/27/21 Garth Hoffman MD [address] [place] [address] Primary Staff Physician Cardiology 05/11/21 Configuration Management Manager Relationship Specialty Start Date End Date Jorge Benavides MD [address] [place] [address] PCP - General Internal Medicine 09/15/23 Keith Rodrigez MD [address] [place] [address] [facility] 03/27/21 Garth Hoffman MD [address] [place] [address] Primary Staff Physician Cardiology 05/11/21 Configuration Management Manager Relationship Specialty Start Date End Date Jorge Benavides MD [address] [place], [place] [address] PCP - General Internal Medicine 09/15/23 Keith Rodrigez MD [address] [place], [place] [address] [facility] 03/27/21 Garth Hoffman MD [address] [place], [place] 424[address] Primary Staff Physician Cardiology 05/11/21 Configuration Management Manager Relationship Specialty Start Date End Date Jorge Benavides MD [address] [place], [place] [address] PCP - General Internal Medicine 09/15/23 Keith Rodrigez MD [address] [place], [place] [address] [facility] 03/27/21 Garth Hoffman MD [address] [place] [address] Primary Staff Physician Cardiology 05/11/21 Configuration Management Manager Relationship Specialty Start Date End Date Jorge Benavides MD [address] [place], [place] [address] PCP - General Internal Medicine 09/15/23 Keith Rodrigez MD [address] [place], [place] [address] [facility] 03/27/21 Garth Hoffman MD [address] [place], [place] [address]22[address] Primary Staff Physician Cardiology 05/11/21 Vicky Bryan PA-C [address] [place], [place] [address] Cardiology 05/11/24 Xiao Suazo MD [address] [place], [place] [address] Cardiology 05/11/24 Sheba Somers MD [address] [place] [address] Cardiology 05/11/24 Mario Moscoso, WINDER FIXER.REFINERY PIPELINE OPERATOR [address] [place] [address] Cardiology 05/11/24 Configuration Management Manager Relationship Specialty Start Date End Date Jorge Benavides MD [address] [place] [address] PCP - General Internal Medicine 09/15/23 Keith Rodrigez MD [address] [place] [address] [facility] 03/27/21 Garth Hoffman MD [address] [place], [place] [address] Primary Staff Physician Cardiology 05/11/21 Vicky Bryan PA-C [address] [place] [address] Cardiology 05/11/24 Xiao Suazo MD [address] [place] [address] Cardiology 05/11/24 Sheba Somers MD [address] [place], [place] [id number] Cardiology 05/11/24 Mario Moscoso APRN.REFINERY PIPELINE OPERATOR [address] [place] [address] Cardiology 05/11/24 Configuration Management Manager Relationship Specialty Start Date End Date Jorge Benavides MD [address] [facility] [place] [address] PCP - General Internal Medicine 09/15/23 Keith Rodrigez MD [address] [place] [address] [facility] 03/27/21 Garth Hoffman MD [address] [place] [address] Primary Staff Physician Cardiology 05/11/21 Vicky Bryan, PA-C [address] [place] [address] Cardiology 05/11/24 Xiao Suazo MD [address] [place] [place], [place] [address]68[address] Cardiology 05/11/24 Sheba Somers MD [address] [place] [address] Cardiology 05/11/24 Mario Moscoso APRN.REFINERY PIPELINE OPERATOR [address] [place] [address] Cardiology 05/11/24 Configuration Management Manager Relationship Specialty Start Date End Date Jorge Benavides MD [address] [place] [address] PCP - General Internal Medicine 09/15/23 Keith Rodrigez MD [address] [place], [place] [address] [facility] 03/27/21 Garth Hoffman MD [address] [place] [address] Primary Staff Physician Cardiology 05/11/21 Vicky Bryan PA-C [address] [place] [address] Cardiology 05/11/24 Xiao Suazo MD [address] [place] [address] Cardiology 05/11/24 Sheba Somers MD [address] [place] [address] Cardiology 05/11/24 Mario Moscoso APRN.REFINERY PIPELINE OPERATOR [address] [place] [address] Cardiology 05/11/24 Configuration Management Manager Relationship Specialty Start Date End Date Jorge Benavides MD [address] [place] [address] PCP - General Internal Medicine 09/15/23 Keith Rodrigez MD [address] [place] [address] [facility] 03/27/21 Garth Hoffman MD [address] [place] [address] Primary Staff Physician Cardiology 05/11/21 Vicky Bryan PA-C [address] [place] [address] Cardiology 05/11/24 Xiao Suazo MD [address] [place] [id number] Cardiology 05/11/24 Sheba Somers MD [address] [place] [address] Cardiology 05/11/24 Mario Moscoso, WINDER FIXER.REFINERY PIPELINE OPERATOR [address] [place] [address] Cardiology 05/11/24 Configuration Management Manager Relationship Specialty Start Date End Date Jorge Benavides MD [address] [place] [address] PCP - General Internal Medicine 09/15/23 Keith Rodrigez MD [address] [facility] [address] [place] [address] [facility] 03/27/21 Garth Hoffman MD [address] [place] [address] Primary Staff Physician Cardiology 05/11/21 Vicky Bryan, PAIhsanC [address] [place], [place] [id number] Cardiology 05/11/24 Xiao Suazo MD [address] [place], [place] [id number] Cardiology 05/11/24 Sheba Somers MD [address] [place], [place] [id number] Cardiology 05/11/24 Mario Moscoso APRN.REFINERY PIPELINE OPERATOR [address] [place] [address] Cardiology 05/11/24 Configuration Management Manager Relationship Specialty Start Date End Date Jorge Benavides MD [address] [place] [address] PCP - General Internal Medicine 09/15/23 Keith Rodrigez MD [address] [place] [address] [facility] 03/27/21 Garth Hoffman MD [address] [place] [address] Primary Staff Physician Cardiology 05/11/21 Vicky Bryan PA-C [address] [place] [address] Cardiology 05/11/24 Xiao Suazo MD [address] [place], [place] [id number] Cardiology 05/11/24 Sheba Somers MD [address] [place], [place] [id number] Cardiology 05/11/24 Mario Moscoso, GREGOR.REFINERY PIPELINE OPERATOR [address] [place] [address] Cardiology 05/11/24 Configuration Management Manager Relationship Specialty Start Date End Date Jorge Benavides MD [address] [facility] [place] [address] PCP - General Internal Medicine 09/15/23 [place] [address] [place] [address] 2 [place] [address] [facility] 03/27/21 Garth Hoffman MD [address] [place] [address] Primary Staff Physician Cardiology 05/11/21 Vicky Bryan PA-C [address] [place] [address] Cardiology 05/11/24 Xiao Suazo MD [address] [place], [place] [id number] Cardiology 05/11/24 Sheba Somers MD [address] [place] [address] Cardiology 05/11/24 Mario Moscoso APRN.REFINERY PIPELINE OPERATOR [address] [place] [address] Cardiology 05/11/24 Configuration Management Manager Relationship Specialty Start Date End Date Jorge Benavides MD [address] [place] [address] PCP - General Internal Medicine 09/15/23 Keith Rodrigez MD [address] [place], [place] [id number] [facility] 03/27/21 Garth Hoffman MD [address] [place] [address] Primary Staff Physician Cardiology 05/11/21 Vicky Bryan, PA-C [address] [place] [address] Cardiology 05/11/24 Xiao Suazo MD [address] [place], [place] [id number] Cardiology 05/11/24 Sheba Somers MD [address] [place] [address] Cardiology 05/11/24 Mario Moscoso APRN.REFINERY PIPELINE OPERATOR [address] [place] [address] Cardiology 05/11/24 Configuration Management Manager Relationship Specialty Start Date End Date Jorge Benavides MD [address] [place] [address] PCP - General Internal Medicine 09/15/23 Keith Rodrigez MD [address] [place] [address] [facility] 03/27/21 Garth Hoffman MD [address] [place] [id number] Primary Staff Physician Cardiology 05/11/21 Vicky Bryan, PA-C [address] [place] [address] Cardiology 05/11/24 Xiao Suazo MD [address] [place] [id number] Cardiology 05/11/24 Sheba Somers MD [address] [place] [id number] Cardiology 05/11/24 Mario Moscoso APRN.REFINERY PIPELINE OPERATOR [address] [place] [address] Cardiology 05/11/24 Configuration Management Manager Relationship Specialty Start Date End Date Jorge Benavides MD [address] [facility] [place] [address] PCP - General Internal Medicine 09/15/23 Keith Rodrigez MD [address] [place] [address] [facility] 03/27/21 Garth Hoffman MD [address] [place], [place] [id number] Primary Staff Physician Cardiology 05/11/21 Vicky Bryan PA-C [address] [place] [address] Cardiology 05/11/24 Xiao Suazo MD [address] [place], [place] [id number] Cardiology 05/11/24 Sheba Somers MD [address] [place], [place] [id number] Cardiology 05/11/24 Mario Moscoso, GREGOR.REFINERY PIPELINE OPERATOR [address] [place] [address] Cardiology 05/11/24 Configuration Management Manager Relationship Specialty Start Date End Date Jorge Benavides MD [address] [facility] [place] [place] [address] PCP - General Internal Medicine 09/15/23 Keith Rodrigez MD [address] [place] [address] [facility] 03/27/21 Garth Hoffman MD [address] [place] [address] Primary Staff Physician Cardiology 05/11/21 Vicky Bryan PA-C [address] [facility] [place] [id number] Cardiology 05/11/24 Xiao Suazo MD [address] [place], [place] [id number] Cardiology 05/11/24 Sheba Somers MD [address] [place], [place] [id number] Cardiology 05/11/24 Mario Moscoso APRN.REFINERY PIPELINE OPERATOR [address] [place] [address] Cardiology 05/11/24 Configuration Management Manager Relationship Specialty Start Date End Date Jorge Benavides MD [address] [place] [address] PCP - General Internal Medicine 09/15/23 Keith Rodrigez MD [address] [place] [address] [facility] 03/27/21 Garth Hoffman MD [address] [facility] [place], [place] [id number] Primary Staff Physician Cardiology 05/11/21 Vicky Bryan PA-C [address] [place] [address] Cardiology 05/11/24 Xiao Suazo MD [address] [place] [address] Cardiology 05/11/24 Sheba Somers MD [address] [place] [address] Cardiology 05/11/24 Mario Moscoso APRN.REFINERY PIPELINE OPERATOR [address] [place] [address] Cardiology 05/11/24 Team Status: Active Member Role Status Dates Dr. Jorge Benavides MD Primary Care Provider Active Team Status: Inactive Member Role Status Dates Dr. Jorge Benavides MD Primary Care Provider Active Start: August 23, 2024 End: August 23, 2024 Dr. Jorge Benavides MD Attending Provider Active Start: August 23, 2024 End: August 23, 2024 Dr. Jorge Benavides MD Referring Provider Active Start: August 23, 2024 End: August 23, 2024 Team Status: Inactive Member Role Status Dates Dr. Jorge Benavides MD Primary Care Provider Active Start: October 12, 2024 End: October 12, 2024 Dr. Jorge Benavides MD Attending Provider Active Start: October 12, 2024 End: October 12, 2024 Dr. Jorge Benavides MD Referring Provider Active Start: October 12, 2024 End: October 12, 2024 Team Status: Inactive Member Role Status Dates Dr. Jorge Benavides MD Primary Care Provider Active Start: October 20, 2024 End: October 20, 2024 Dr. Jorge Benavides MD Attending Provider Active Start: October 20, 2024 End: October 20, 2024 Dr. Jorge Benavides MD Referring Provider Active Start: October 20, 2024 End: October 20, 2024 Team Status: Inactive Member Role Status Dates Dr. Jorge Benavides MD Primary Care Provider Active Start: October 20, 2024 End: October 20, 2024 Dr. Ros Nice DO Attending Provider Active Start: October 20, 2024 End: October 20, 2024 Dr. Ros Nice DO Referring Provider Active Start: October 20, 2024 End: October 20, 2024 Team Status: Inactive Member Role Status Dates Dr. Jorge Benavides MD Primary Care Provider Active Start: October 27, 2024 End: October 27, 2024 Dr. Ros Nice DO Attending Provider Active Start: October 27, 2024 End: October 27, 2024 Team Status: Inactive Member Role Status Dates Dr. Jorge Benavides MD Primary Care Provider Active Start: November 01, 2024 End: November 01, 2024 Dr. Ros Nice DO Attending Provider Active Start: November 01, 2024 End: November 01, 2024 Dr. Ros Nice DO Referring Provider Active Start: November 01, 2024 End: November 01, 2024 Team Status: Inactive Member Role Status Dates Dr. Jorge Benavides MD Primary Care Provider Active Start: November 16, 2024 End: November 17, 2024 Dr. Ruben Brar DO Emergency Provider Active Start: November 16, 2024 End: November 17, 2024 Dr. Beckie Moeller MD Admit Provider Active St art: November 16, 2024 End: November 17, 2024 Dr. Beckie Moeller MD Referring Provider Active Start: November 16, 2024 End: November 17, 2024 Dr. Beckie Moeller MD Other Provider Active St art: November 16, 2024 End: November 17, 2024 Dr. Angel Tay DO Attending Provider Active Start: November 16, 2024 End: November 17, 2024 Dr. Ros Nice DO Other Provider Active Sta rt: November 16, 2024 End: November 17, 2024 Team Status: Active Member Role Status Dates Dr. Jorge Benavides MD Primary Care Provider Active Start: November 16, 2024 Dr. Ruben Brar DO Emergency Provider Active Start: November 16, 2024 Dr. Beckie Moeller MD Admit Provider Active St art: November 16, 2024 Dr. Beckie Moeller MD Attending Provider Active Start: November 16, 2024 Dr. Beckie Moeller MD Other Provider Active St art: November 16, 2024 Team Status: Active Member Role Status Dates Dr. Jorge Benavides MD Primary Care Provider Active Start: November 17, 2024 Dr. Ruben Brar DO Emergency Provider Active Start: November 17, 2024 Dr. Beckie Moeller MD Admit Provider Active St art: November 17, 2024 Dr. Beckie Moeller MD Other Provider Active St art: November 17, 2024 Dr. Angel Tay DO Attending Provider Active Start: November 17, 2024 Team Status: Inactive Member Role Status Dates Dr. Jorge Benavides MD Primary Care Provider Active Start: November 24, 2024 End: November 24, 2024 Dr. Ros Nice DO Attending Provider Active Start: November 24, 2024 End: November 24, 2024 Dr. Ros Nice DO Referring Provider Active Start: November 24, 2024 End: November 24, 2024 Team Status: Active Member Role Status Dates Dr. Jorge Benavides MD Primary Care Provider Active Start: December 01, 2024 Dr. Ros Nice DO Attending Provider Active Start: December 01, 2024 Dr. Ros Nice DO Referring Provider Active Start: December 01, 2024 Team Status: Inactive Member Role Status Dates Dr. Jorge Benavides MD Primary Care Provider Active Start: December 01, 2024 End: December 01, 2024 Dr. Ros Nice DO Attending Provider Active Start: December 01, 2024 End: December 01, 2024 Dr. Ros Nice DO Referring Provider Active Start: December 01, 2024 End: December 01, 2024 Team Status: Active Member Role Status Dates Dr. Jorge Benavides MD Primary Care Provider Active Start: December 08, 2024 Dr. Ros Nice DO Attending Provider Active Start: December 08, 2024 Dr. Ros Nice DO Referring Provider Active Start: December 08, 2024 Team Status: Inactive Member Role Status Dates Dr. Jorge Benavides MD Primary Care Provider Active Start: December 09, 2024 End: December 09, 2024 Dr. Jorge Benavides MD Attending Provider Active Start: December 09, 2024 End: December 09, 2024 Dr. Jorge Benavides MD Referring Provider Active Start: December 09, 2024 End: December 09, 2024 Team Status: Inactive Member Role Status Dates Dr. Jorge Benavides MD Primary Care Provider Active Start: December 08, 2024 End: December 08, 2024 Dr. Ros Nice DO Attending Provider Active Start: December 08, 2024 End: December 08, 2024 Dr. Ros Nice DO Referring Provider Active Start: December 08, 2024 End: December 08, 2024 Team Status: Inactive Member Role Status Dates Dr. Jorge Benavides MD Primary Care Provider Active Start: December 17, 2024 End: December 17, 2024 Dr. Jorge Benavides MD Referring Provider Active Start: December 17, 2024 End: December 17, 2024 JUSTIN Ventura Attending Provider Active Start: December 17, 2024 End: December 17, 2024 Team Status: Inactive Member Role Status Dates Dr. Jorge Benavides MD Primary Care Provider Active Start: December 17, 2024 End: December 17, 2024 JUSTIN Ventura Attending Provider Active Start: December 17, 2024 End: December 17, 2024 JUSTIN Ventura Referring Provider Active Start: December 17, 2024 End: December 17, 2024 Team Status: Active Member Role Status Dates Dr. Jorge Benavidse MD Primary Care Provider Active Start: December 20, 2024 Dr. Jorge Benavides MD Attending Provider Active Start: December 20, 2024 Dr. Jorge Benavides MD Referring Provider Active Start: December 20, 2024 Team Status: Active Member Role Status Dates Dr. Jorge Benavides MD Primary Care Provider Active Start: December 22, 2024 JUSTIN Ventura Attending Provider Active Start: December 22, 2024 JUSTIN Ventura Referring Provider Active Start: December 22, 2024 Team Status: Inactive Member Role Status Dates Dr. Jorge Benavides MD Primary Care Provider Active Start: December 22, 2024 End: December 22, 2024 JUSTIN Ventura Attending Provider Active Start: December 22, 2024 End: December 22, 2024 JUSTIN Ventura Referring Provider Active Start: December 22, 2024 End: December 22, 2024 Team Status: Inactive Member Role Status Dates Dr. Jorge Benavides MD Primary Care Provider Active Start: December 20, 2024 End: December 20, 2024 Dr. Jorge Benavides MD Attending Provider Active Start: December 20, 2024 End: December 20, 2024 Dr. Jorge Benavides MD Referring Provider Active Start: December 20, 2024 End: December 20, 2024 Team Status: Inactive Member Role Status Dates Dr. Jorge Benavides MD Primary Care Provider Active Start: December 01, 2024 End: December 27, 2024 Dr. Ros Nice DO Attending Provider Active Start: December 01, 2024 End: December 27, 2024 Dr. Ros Nice DO Referring Provider Active Start: December 01, 2024 End: December 27, 2024 Configuration Management Manager Relationship Specialty Start Date End Date Jorge Benavides MD [address] [place] [address] PCP - General Internal Medicine 09/15/23 Keith Rodrigez MD [address] [place] [address] [facility] 03/27/21 Garth Hoffman MD [address] [facility] [place] [address] Primary Staff Physician Cardiology 05/11/21 Vicky Bryan PA-C [address] [facility] [place] [address] Cardiology 05/11/24 Xiao Suazo MD [address] [place], [place] [id number] Cardiology 05/11/24 Sheba Somers MD [address] [place], [place] [id number] Cardiology 05/11/24 Mario Moscoso APRN.REFINERY PIPELINE OPERATOR [address] [place] [address] Cardiology 05/11/24 Configuration Management Manager Relationship Specialty Start Date End Date Jorge Benavides MD [address] [place] [address] PCP - General Internal Medicine 09/15/23 Keith Rodrigez MD [address] [facility] 2 [place] [address] [facility] 03/27/21 Garth Hoffman MD [address] [place] [address] Primary Staff Physician Cardiology 05/11/21 Vicky Bryan, PA-C [address] [place] [address] Cardiology 05/11/24 Xiao Suazo MD [address] [place] [id number] Cardiology 05/11/24 Sheba Somesr MD [address] [place] [address] Cardiology 05/11/24 Mario Moscoso APRN.REFINERY PIPELINE OPERATOR [address] [place] [address] Cardiology 05/11/24 Team Status: Inactive Member Role Status Dates Dr. Jorge Benavides MD Primary Care Provider Active Start: 2025 End: 2025 Dr. Jorge Benavides MD Referring Provider Active Start: 2025 End: 2025 Dr. Julieta Johnson MD Attending Provider Active Start: 2025 End: 2025 Team Status: Inactive Member Role Status Dates Dr. Jorge Benavides MD Primary Care Provider Active Start: January 07, 2025 End: January 07, 2025 JUSTIN Ventura Attending Provider Active Start: January 07, 2025 End: January 07, 2025 JUSTIN Ventura Referring Provider Active Start: January 07, 2025 End: January 07, 2025 Configuration Management Manager Relationship Specialty Start Date End Date Jorge Benavides MD [address] [place] [address] PCP - General Internal Medicine 09/15/23 Keith Rodrigez MD [address] [address] [facility] 03/27/21 Garth Hoffman MD [address] [place] [address] Primary Staff Physician Cardiology 05/11/21 Vicky Bryan PA-C [address] [place] [address] Cardiology 05/11/24 Xiao Suazo MD [address] [place] [address] Cardiology 05/11/24 Sheba Somers MD [address] [place] [address] Cardiology 05/11/24 Mario Moscoso APRN.REFINERY PIPELINE OPERATOR [address] [place] [address] Cardiology 05/11/24 Team Status: Inactive Member Role Status Dates Dr. Jorge Benavides MD Primary Care Provider Active Start: February 01, 2025 End: February 01, 2025 Dr. Jorge Benavides MD Referring Provider Active Start: February 01, 2025 End: February 01, 2025 Dr. Julieta Johnson MD Attending Provider Active Start: February 01, 2025 End: February 01, 2025 Team Status: Inactive Member Role Status Dates Dr. Jorge Benavides MD Primary Care Provider Active Start: February 05, 2025 End: February 05, 2025 Dr. Ros Nice DO Attending Provider Active Start: February 05, 2025 End: February 05, 2025 Dr. Ros Nice DO Referring Provider Active Start: February 05, 2025 End: February 05, 2025 Team Status: Inactive Member Role Status Dates Dr. Jorge Benavides MD Primary Care Provider Active Start: February 22, 2025 End: February 22, 2025 Dr. Minor Izaguirre MD Emergency Provider Active Start: February 22, 2025 End: February 22, 2025 Configuration Management Manager Relationship Specialty Start Date End Date Jorge Benavides MD [address] [place] [address] PCP - General Internal Medicine 09/15/23 Keith Rodrigez MD [address] [facility] [facility] [address] [place] [address] [facility] 03/27/21 Garth Hoffman MD [address] [place] [address] Primary Staff Physician Cardiology 05/11/21 Vicky Bryan PA-C [address] [facility] [place] [address] Cardiology 05/11/24 Xiao Suazo MD [address] [place] [address] Cardiology 05/11/24 Sheba Somers MD [address] [place] [address] Cardiology 05/11/24 Mario Moscoso, WINDER FIXER.REFINERY PIPELINE OPERATOR [address] [place] [address] Cardiology 05/11/24 Configuration Management Manager Relationship Specialty Start Date End Date Jorge Benavides MD [address] [place] [address] PCP - General Internal Medicine 09/15/23 Keith Rodrigez MD [address] [facility] 2 [place] [address] [facility] 03/27/21 Garth Hoffman MD [address] [place] [address] Primary Staff Physician Cardiology 05/11/21 Vicky Bryan PA-C [address] [facility] [place] [address] Cardiology 05/11/24 Xiao Suazo MD [address] [place], [place] [id number] Cardiology 05/11/24 Sheba Somers MD [address] [place] [address] Cardiology 05/11/24 LelandchandlerMario APRN.REFINERY PIPELINE OPERATOR [address] [place] [address] Cardiology 05/11/24 Team Status: Active Member Role/Relationship Status Dates Dr. Jorge Benavides MD Primary Care Provider Active Team Status: Inactive Member Role/Relationship Status Dates Dr. Jorge Benavides MD Primary Care Provider Active Start: December 17, 2024 End: December 17, 2024 Dr. Jorge Benavides MD Referring Provider Active Start: December 17, 2024 End: December 17, 2024 JUSTIN Ventura Attending Provider Active Start: December 17, 2024 End: December 17, 2024 Team Status: Inactive Member Role/Relationship Status Dates Dr. Jorge Benavides MD Primary Care Provider Active Start: December 17, 2024 End: December 17, 2024 JUSTIN Ventura Attending Provider Active Start: December 17, 2024 End: December 17, 2024 JUSTIN Ventura Referring Provider Active Start: December 17, 2024 End: December 17, 2024 Team Status: Inactive Member Role/Relationship Status Dates Dr. Jorge Benavides MD Primary Care Provider Active Start: December 20, 2024 End: December 20, 2024 Dr. Jorge Benavides MD Attending Provider Active Start: December 20, 2024 End: December 20, 2024 Dr. Jorge Benavides MD Referring Provider Active Start: December 20, 2024 End: December 20, 2024 Team Status: Inactive Member Role/Relationship Status Dates Dr. Jorge Benavides MD Primary Care Provider Active Start: December 22, 2024 End: December 22, 2024 JUSTIN Ventura Attending Provider Active Start: December 22, 2024 End: December 22, 2024 JUSTIN Ventura Referring Provider Active Start: December 22, 2024 End: December 22, 2024 Team Status: Inactive Member Role/Relationship Status Dates Dr. Jorge Benavides MD Primary Care Provider Active Start: 2025 End: 2025 Dr. Jorge Benavides MD Referring Provider Active Start: 2025 End: 2025 Dr. Julieta Johnson MD Attending Provider Active Start: 2025 End: 2025 Team Status: Inactive Member Role/Relationship Status Dates Dr. Jorge Benavides MD Primary Care Provider Active Start: January 07, 2025 End: January 07, 2025 JUSTIN Ventura Attending Provider Active Start: January 07, 2025 End: January 07, 2025 JUSTIN Ventura Referring Provider Active Start: January 07, 2025 End: January 07, 2025 Team Status: Inactive Member Role/Relationship Status Dates Dr. Jorge Benavides MD Primary Care Provider Active Start: February 01, 2025 End: February 01, 2025 Dr. Jorge Benavides MD Referring Provider Active Start: February 01, 2025 End: February 01, 2025 Dr. Julieta Johnson MD Attending Provider Active Start: February 01, 2025 End: February 01, 2025 Team Status: Inactive Member Role/Relationship Status Dates Dr. Jorge Benavides MD Primary Care Provider Active Start: February 05, 2025 End: February 05, 2025 Dr. Ros Nice DO Attending Provider Active Start: February 05, 2025 End: February 05, 2025 Dr. Ros Nice DO Referring Provider Active Start: February 05, 2025 End: February 05, 2025 Team Status: Inactive Member Role/Relationship Status Dates Dr. Jorge Benavides MD Primary Care Provider Active Start: February 22, 2025 End: February 22, 2025 Dr. Minor Izaguirre MD Attending Provider Active Start: February 22, 2025 End: February 22, 2025 Dr. Minor Izaguirre MD Emergency Provider Active Start: February 22, 2025 End: February 22, 2025 Team Status: Inactive Member Role/Relationship Status Dates Dr. Jorge Benavides MD Primary Care Provider Active Start: April 12, 2025 End: April 12, 2025 Dr. Jorge Benavides MD Attending Provider Active Start: April 12, 2025 End: April 12, 2025 Dr. Jorge Benavides MD Referring Provider Active Start: April 12, 2025 End: April 12, 2025 Team Status: Inactive Member Role/Relationship Status Dates Dr. Jorge Benavides MD Primary Care Provider Active Start: December 20, 2024 End: December 20, 2024 Dr. Jorge Benavides MD Attending Provider Active Start: December 20, 2024 End: December 20, 2024 Dr. Jorge Benavides MD Referring Provider Active Start: December 20, 2024 End: December 20, 2024 Team Status: Inactive Member Role/Relationship Status Dates Dr. Jorge Benavides MD Primary Care Provider Active Start: December 22, 2024 End: December 22, 2024 JUSTIN Ventura Attending Provider Active Start: December 22, 2024 End: December 22, 2024 JUSTIN Ventura Referring Provider Active Start: December 22, 2024 End: December 22, 2024 Team Status: Inactive Member Role/Relationship Status Dates Dr. Jorge Benavides MD Primary Care Provider Active Start: 2025 End: 2025 Dr. Jorge Benavides MD Referring Provider Active Start: 2025 End: 2025 Dr. Julieta Johnson MD Attending Provider Active Start: 2025 End: 2025 Team Status: Inactive Member Role/Relationship Status Dates Dr. Jorge Benavides MD Primary Care Provider Active Start: January 07, 2025 End: January 07, 2025 JUSTIN Ventura Attending Provider Active Start: January 07, 2025 End: January 07, 2025 JUSTIN Ventura Referring Provider Active Start: January 07, 2025 End: January 07, 2025 Team Status: Inactive Member Role/Relationship Status Dates Dr. Jorge Benavides MD Primary Care Provider Active Start: February 01, 2025 End: February 01, 2025 Dr. Jorge Benavides MD Referring Provider Active Start: February 01, 2025 End: February 01, 2025 Dr. Julieta Johnson MD Attending Provider Active Start: February 01, 2025 End: February 01, 2025 Team Status: Inactive Member Role/Relationship Status Dates Dr. Jorge Benavides MD Primary Care Provider Active Start: February 05, 2025 End: February 05, 2025 Dr. Ros Nice DO Attending Provider Active Start: February 05, 2025 End: February 05, 2025 Dr. Ros Nice DO Referring Provider Active Start: February 05, 2025 End: February 05, 2025 Team Status: Inactive Member Role/Relationship Status Dates Dr. Jorge Benavides MD Primary Care Provider Active Start: February 22, 2025 End: February 22, 2025 Dr. Minor Izaguirre MD Attending Provider Active Start: February 22, 2025 End: February 22, 2025 Dr. Minor Izaguirre MD Emergency Provider Active Start: February 22, 2025 End: February 22, 2025 Team Status: Inactive Member Role/Relationship Status Dates Dr. Jorge Benavides MD Primary Care Provider Active Start: April 12, 2025 End: April 12, 2025 Dr. Jorge Benavides MD Attending Provider Active Start: April 12, 2025 End: April 12, 2025 Dr. Jorge Benavides MD Referring Provider Active Start: April 12, 2025 End: April 12, 2025 Team Status: Inactive Member Role/Relationship Status Dates Dr. Jorge Benavides MD Primary Care Provider Active Start: April 13, 2025 End: April 13, 2025 Dr. Ros Nice DO Attending Provider Active Start: April 13, 2025 End: April 13, 2025 Dr. Ros Nice DO Referring Provider Active Start: April 13, 2025 End: April 13, 2025 Team Status: Inactive Member Role/Relationship Status Dates Dr. Jorge Benavides MD Primary Care Provider Active Start: February 01, 2025 End: February 01, 2025 Dr. Jorge Benavides MD Referring Provider Active Start: February 01, 2025 End: February 01, 2025 Dr. Julieta Johnson MD Attending Provider Active Start: February 01, 2025 End: February 01, 2025 Team Status: Inactive Member Role/Relationship Status Dates Dr. Jorge Benavides MD Primary Care Provider Active Start: February 05, 2025 End: February 05, 2025 Dr. Ros Nice DO Attending Provider Active Start: February 05, 2025 End: February 05, 2025 Dr. Ros Nice DO Referring Provider Active Start: February 05, 2025 End: February 05, 2025 Team Status: Inactive Member Role/Relationship Status Dates Dr. Jorge Benavides MD Primary Care Provider Active Start: February 22, 2025 End: February 22, 2025 Dr. Minor Izaguirre MD Attending Provider Active Start: February 22, 2025 End: February 22, 2025 Dr. Minor Izaguirre MD Emergency Provider Active Start: February 22, 2025 End: February 22, 2025 Team Status: Inactive Member Role/Relationship Status Dates Dr. Jorge Benavides MD Primary Care Provider Active Start: March 29, 2025 Dr. Kymberly Leger MD Attending Provider Active Start: March 29, 2025 Team Status: Inactive Member Role/Relationship Status Dates Dr. Jorge Benavides MD Primary Care Provider Active Start: April 12, 2025 End: April 12, 2025 Dr. Jorge Benavides MD Attending Provider Active Start: April 12, 2025 End: April 12, 2025 Dr. Jorge Benavides MD Referring Provider Active Start: April 12, 2025 End: April 12, 2025 Team Status: Inactive Member Role/Relationship Status Dates Dr. Jorge Benavides MD Primary Care Provider Active Start: April 13, 2025 End: April 13, 2025 Dr. Ros Nice DO Attending Provider Active Start: April 13, 2025 End: April 13, 2025 Dr. Ros Nice DO Referring Provider Active Start: April 13, 2025 End: April 13, 2025 Team Status: Inactive Member Role/Relationship Status Dates Dr. Jorge Benavides MD Primary Care Provider Active Start: May 13, 2025 End: May 13, 2025 Dr. Jorge Benavides MD Referring Provider Active Start: May 13, 2025 End: May 13, 2025 JUSTIN Taveras Attending Provider Active St art: May 13, 2025 End: May 13, 2025 Team Status: Active Member Role/Relationship Status Dates Dr. Jorge Benavides MD Primary Care Provider Active Start: May 13, 2025 JUSTIN Taveras Attending Provider Active St art: May 13, 2025 JUSTIN Taveras Referring Provider Active St art: May 13, 2025 Team Status: Inactive Member Role/Relationship Status Dates Dr. Jorge Benavides MD Primary Care Provider Active Start: May 17, 2025 End: May 17, 2025 Dr. Jorge Benavides MD Referring Provider Active Start: May 17, 2025 End: May 17, 2025 Dr. Kymberly Leger MD Attending Provider Active Start: May 17, 2025 End: May 17, 2025 Team Status: Inactive Member Role/Relationship Status Dates Dr. Jorge Benavides MD Primary Care Provider Active Start: May 17, 2025 End: May 17, 2025 Dr. Jorge Benavides MD Referring Provider Active Start: May 17, 2025 End: May 17, 2025 Hayde García NP-C Attending Provider Active Start: May 17, 2025 End: May 17, 2025 Team Status: Inactive Member Role/Relationship Status Dates Dr. Jorge Benavides MD Primary Care Provider Active Start: May 13, 2025 End: May 13, 2025 JUSTIN Taveras Attending Provider Active St art: May 13, 2025 End: May 13, 2025 JUSTIN Taveras Referring Provider Active St art: May 13, 2025 End: May 13, 2025 Team Status: Active Member Role/Relationship Status Dates Dr. Jorge Benavides MD Primary Care Provider Active Start: May 19, 2025 Hayde García LIDAR SCIENTIST-C Attending Provider Active Start: May 19, 2025 Hayde García LIDAR SCIENTIST-C Referring Provider Active Start: May 19, 2025 Team Status: Inactive Member Role/Relationship Status Dates Dr. Jorge Benavides MD Primary Care Provider Active Start: May 24, 2025 End: May 24, 2025 Dr. Jorge Benavides MD Referring Provider Active Start: May 24, 2025 End: May 24, 2025 Razia Maxwell LIDAR SCIENTIST, LIDAR SCIENTIST-C Attending Provider Active Start: May 24, 2025 End: May 24, 2025 Team Status: Inactive Member Role/Relationship Status Dates Dr. Joreg Benavides MD Primary Care Provider Active Start: May 19, 2025 End: May 19, 2025 Hayde García NP-C Attending Provider Active Start: May 19, 2025 End: May 19, 2025 Hayde García NP-C Referring Provider Active Start: May 19, 2025 End: May 19, 2025 Team Status: Inactive Member Role/Relationship Status Dates Dr. Jorge Benavides MD Primary Care Provider Active Start: May 27, 2025 End: May 27, 2025 JUSTIN Taveras Attending Provider Active St art: May 27, 2025 End: May 27, 2025 JUSTIN Taveras Referring Provider Active St art: May 27, 2025 End: May 27, 2025 Team Status: Active Member Role/Relationship Status Dates Dr. Jorge Benavides MD Primary Care Provider Active Start: May 31, 2025 Hayde García NP-C Attending Provider Active Start: May 31, 2025 Hayde García NP-C Referring Provider Active Start: May 31, 2025 Configuration Management Manager Relationship Specialty Start Date End Date Jorge Benavides MD [address] [place] [address] PCP - General Internal Medicine 09/15/23 Keith Rodrigez MD [address] [facility] [address] [place] [address] [facility] 03/27/21 Garth Hoffman MD [address] [place], [place] [id number] Primary Staff Physician Cardiology 05/11/21 Vicky Bryan PA-C [address] [place] [address] Cardiology 05/11/24 Xiao Suazo MD [address] [place] [address] Cardiology 05/11/24 Sheba Somers MD [address] [place] [address] Cardiology 05/11/24 Mario Moscoso, GREGOR.REFINERY PIPELINE OPERATOR [address] [place] [address] Cardiology 05/11/24 Team Status: Active Member Role/Relationship Status Dates Dr. Jorge Benavides MD Primary care physician Active Team Status: Inactive Member Role/Relationship Status Dates Dr. Jorge Benavides MD Primary care physician Active Start: February 22, 2025 End: February 22, 2025 Dr. Minor Izaguirre MD Attending physician Active Start: February 22, 2025 End: February 22, 2025 Dr. Minor Izaguirre MD Emergency Department Physician Active Start: February 22, 2025 End: February 22, 2025 Team Status: Inactive Member Role/Relationship Status Dates Dr. Jorge Benavides MD Primary care physician Active Start: March 29, 2025 Dr. Kymberly Leger MD Attending physician Active Start: March 29, 2025 Team Status: Inactive Member Role/Relationship Status Dates Dr. Jorge Benavides MD Primary care physician Active Start: April 12, 2025 End: April 12, 2025 Dr. Jorge Benavides MD Attending physician Active Start: April 12, 2025 End: April 12, 2025 Dr. Jorge Benavides MD Referring Provider Active Start: April 12, 2025 End: April 12, 2025 Team Status: Inactive Member Role/Relationship Status Dates Dr. Jorge Benavides MD Primary care physician Active Start: April 13, 2025 End: April 13, 2025 Dr. Ros Nice DO Attending physician Active Start: April 13, 2025 End: April 13, 2025 Dr. Ros Nice DO Referring Provider Active Start: April 13, 2025 End: April 13, 2025 Team Status: Inactive Member Role/Relationship Status Dates Dr. Jorge Benavides MD Primary care physician Active Start: May 13, 2025 End: May 13, 2025 Dr. Jorge Benavides MD Referring Provider Active Start: May 13, 2025 End: May 13, 2025 JUSTIN Taveras Attending physician Active S tart: May 13, 2025 End: May 13, 2025 Team Status: Inactive Member Role/Relationship Status Dates Dr. Jorge Benavides MD Primary care physician Active Start: May 13, 2025 End: May 13, 2025 JUSTIN Taveras Attending physician Active S tart: May 13, 2025 End: May 13, 2025 JUSTIN Taveras Referring Provider Active St art: May 13, 2025 End: May 13, 2025 Team Status: Inactive Member Role/Relationship Status Dates Dr. Jorge Benavides MD Primary care physician Active Start: May 17, 2025 End: May 17, 2025 Dr. Jorge Benavides MD Referring Provider Active Start: May 17, 2025 End: May 17, 2025 Dr. Kymberly Leger MD Attending physician Active Start: May 17, 2025 End: May 17, 2025 Team Status: Inactive Member Role/Relationship Status Dates Dr. Jorge Benavides MD Primary care physician Active Start: May 17, 2025 End: May 17, 2025 Dr. Jorge Benavides MD Referring Provider Active Start: May 17, 2025 End: May 17, 2025 GINI Johnson Attending physician Active Start: May 17, 2025 End: May 17, 2025 Team Status: Inactive Member Role/Relationship Status Dates Dr. Jorge Benavides MD Primary care physician Active Start: May 19, 2025 End: May 19, 2025 GINI Johnson Attending physician Active Start: May 19, 2025 End: May 19, 2025 Hayde Ungerer , LIDAR SCIENTIST-C Referring Provider Active Start: May 19, 2025 End: May 19, 2025 Team Status: Inactive Member Role/Relationship Status Dates Dr. Jorge Benavides MD Primary care physician Active Start: May 24, 2025 End: May 24, 2025 Dr. Jorge Benavides MD Referring Provider Active Start: May 24, 2025 End: May 24, 2025 Razia Maxwell NP, LIDAR SCIENTIST-C Attending physician Active Start: May 24, 2025 End: May 24, 2025 Team Status: Inactive Member Role/Relationship Status Dates Dr. Jorge Benavides MD Primary care physician Active Start: May 27, 2025 End: May 27, 2025 JUSTIN Taveras Attending physician Active S tart: May 27, 2025 End: May 27, 2025 JUSTIN Taveras Referring Provider Active St art: May 27, 2025 End: May 27, 2025 Team Status: Inactive Member Role/Relationship Status Dates Dr. Jorge Benavides MD Primary care physician Active Start: May 31, 2025 End: May 31, 2025 Hayde García LIDAR SCIENTIST-C Attending physician Active Start: May 31, 2025 End: May 31, 2025 Hayde García LIDAR SCIENTIST-C Referring Provider Active Start: May 31, 2025 End: May 31, 2025 Team Status: Inactive Member Role/Relationship Status Dates Dr. Jorge Benavides MD Primary care physician Active Start: June 08, 2025 End: June 08, 2025 Dr. Ros Nice DO Attending physician Active Start: June 08, 2025 End: June 08, 2025 Dr. Ros Nice DO Referring Provider Active Start: June 08, 2025 End: June 08, 2025 Team Status: Active Member Role/Relationship Status Dates Dr. Jorge Benavides MD Primary care physician Active Start: June 09, 2025 Dr. Ros Nice DO Attending physician Active Start: June 09, 2025 Dr. Ros Nice DO Referring Provider Active Start: June 09, 2025 Team Status: Active Member Role/Relationship Status Dates Dr. Jorge Benavides MD Primary care physician Active Start: June 14, 2025 JUSTIN Taveras Attending physician Active S tart: June 14, 2025 JUSTIN Taveras Referring Provider Active St art: June 14, 2025 Team Status: Active Member Role/Relationship Status Dates Dr. Jorge Benavides MD Primary care physician Active Start: June 15, 2025 JUSTIN Taveras Attending physician Active S tart: June 15, 2025 JUSTIN Taveras Referring Provider Active St art: June 15, 2025 Team Status: Active Member Role/Relationship Status Dates Dr. Jorge Benavides MD Primary care physician Active Start: June 15, 2025 Dr. Jesse Sykes MD Attending physician Active Start: June 15, 2025 Team Status: Inactive Member Role/Relationship Status Dates Dr. Jorge Benavides MD Primary care physician Active Start: June 16, 2025 End: June 16, 2025 Dr. Jorge Benavides MD Attending physician Active Start: June 16, 2025 End: June 16, 2025 Dr. Jorge Benavides MD Referring Provider Active Start: June 16, 2025 End: June 16, 2025 Team Status: Active Member Role/Relationship Status Dates Dr. Jorge Benavides MD Primary care physician Active Start: June 17, 2025 Razia Maxwell NP, LIDAR SCIENTIST-C Attending physician Active Start: June 17, 2025 Team Status: Inactive Member Role/Relationship Status Dates Dr. Jorge Benavides MD Primary care physician Active Start: March 29, 2025 Dr. Kymberly Leger MD Attending physician Active Start: March 29, 2025 Team Status: Inactive Member Role/Relationship Status Dates Dr. Jorge Benavides MD Primary care physician Active Start: April 12, 2025 End: April 12, 2025 Dr. Jorge Benavides MD Attending physician Active Start: April 12, 2025 End: April 12, 2025 Dr. Jorge Benavides MD Referring Provider Active Start: April 12, 2025 End: April 12, 2025 Team Status: Inactive Member Role/Relationship Status Dates Dr. Jorge Benavides MD Primary care physician Active Start: April 13, 2025 End: April 13, 2025 Dr. Ros Nice DO Attending physician Active Start: April 13, 2025 End: April 13, 2025 Dr. Ros Nice DO Referring Provider Active Start: April 13, 2025 End: April 13, 2025 Team Status: Inactive Member Role/Relationship Status Dates Dr. Jorge Benavides MD Primary care physician Active Start: May 13, 2025 End: May 13, 2025 Dr. Jorge Benavides MD Referring Provider Active Start: May 13, 2025 End: May 13, 2025 JUSTIN Taveras Attending physician Active S tart: May 13, 2025 End: May 13, 2025 Team Status: Inactive Member Role/Relationship Status Dates Dr. Jorge Benavides MD Primary care physician Active Start: May 13, 2025 End: May 13, 2025 JUSTIN Taveras Attending physician Active S tart: May 13, 2025 End: May 13, 2025 JUSTIN Taveras Referring Provider Active St art: May 13, 2025 End: May 13, 2025 Team Status: Inactive Member Role/Relationship Status Dates Dr. Jorge Benavides MD Primary care physician Active Start: May 17, 2025 End: May 17, 2025 Dr. Jorge Benavides MD Referring Provider Active Start: May 17, 2025 End: May 17, 2025 Dr. Kymberly Leger MD Attending physician Active Start: May 17, 2025 End: May 17, 2025 Team Status: Inactive Member Role/Relationship Status Dates Dr. Jorge Benavides MD Primary care physician Active Start: May 17, 2025 End: May 17, 2025 Dr. Jorge Benavides MD Referring Provider Active Start: May 17, 2025 End: May 17, 2025 GINI Johnson Attending physician Active Start: May 17, 2025 End: May 17, 2025 Team Status: Inactive Member Role/Relationship Status Dates Dr. Jorge Benavides MD Primary care physician Active Start: May 19, 2025 End: May 19, 2025 GINI Johnson Attending physician Active Start: May 19, 2025 End: May 19, 2025 Hayde Ungerer , LIDAR SCIENTIST-C Referring Provider Active Start: May 19, 2025 End: May 19, 2025 Team Status: Inactive Member Role/Relationship Status Dates Dr. Jorge Benavides MD Primary care physician Active Start: May 24, 2025 End: May 24, 2025 Dr. Jorge Benavides MD Referring Provider Active Start: May 24, 2025 End: May 24, 2025 Razia Maxwell NP, LIDAR SCIENTIST-C Attending physician Active Start: May 24, 2025 End: May 24, 2025 Team Status: Inactive Member Role/Relationship Status Dates Dr. Jorge Benavides MD Primary care physician Active Start: May 27, 2025 End: May 27, 2025 JUSTIN Taveras Attending physician Active S tart: May 27, 2025 End: May 27, 2025 JUSTIN Taveras Referring Provider Active St art: May 27, 2025 End: May 27, 2025 Team Status: Inactive Member Role/Relationship Status Dates Dr. Jorge Benavides MD Primary care physician Active Start: May 31, 2025 End: May 31, 2025 Hayde García LIDAR SCIENTIST-C Attending physician Active Start: May 31, 2025 End: May 31, 2025 Hayde García LIDAR SCIENTIST-C Referring Provider Active Start: May 31, 2025 End: May 31, 2025 Team Status: Inactive Member Role/Relationship Status Dates Dr. Jorge Benavides MD Primary care physician Active Start: June 08, 2025 End: June 08, 2025 Dr. Ros Nice DO Attending physician Active Start: June 08, 2025 End: June 08, 2025 Dr. Ros Nice DO Referring Provider Active Start: June 08, 2025 End: June 08, 2025 Team Status: Inactive Member Role/Relationship Status Dates Dr. Jorge Benavides MD Primary care physician Active Start: June 09, 2025 End: June 09, 2025 Dr. Ros Nice DO Attending physician Active Start: June 09, 2025 End: June 09, 2025 Dr. Ros Nice DO Referring Provider Active Start: June 09, 2025 End: June 09, 2025 Team Status: Inactive Member Role/Relationship Status Dates Dr. Jorge Benavides MD Primary care physician Active Start: June 14, 2025 End: June 14, 2025 JUSTIN Taveras Attending physician Active S tart: June 14, 2025 End: June 14, 2025 JUSTIN Taveras Referring Provider Active St art: June 14, 2025 End: June 14, 2025 Team Status: Inactive Member Role/Relationship Status Dates Dr. Jorge Benavides MD Primary care physician Active Start: June 15, 2025 End: June 15, 2025 JUSTIN Taveras Attending physician Active S tart: June 15, 2025 End: June 15, 2025 JUSTIN Taveras Referring Provider Active St art: June 15, 2025 End: June 15, 2025 Team Status: Active Member Role/Relationship Status Dates Dr. Jorge Benavides MD Primary care physician Active Start: June 15, 2025 Dr. Jesse Sykes MD Attending physician Active Start: June 15, 2025 Team Status: Inactive Member Role/Relationship Status Dates Dr. Jorge Benavides MD Primary care physician Active Start: June 16, 2025 End: June 16, 2025 Dr. Jorge Benavides MD Attending physician Active Start: June 16, 2025 End: June 16, 2025 Dr. Jorge Benavides MD Referring Provider Active Start: June 16, 2025 End: June 16, 2025 Team Status: Inactive Member Role/Relationship Status Dates Dr. Jorge Benavides MD Primary care physician Active Start: June 17, 2025 End: June 17, 2025 Razia Maxwell LIDAR SCIENTIST, LIDAR SCIENTIST-C Attending physician Active Start: June 17, 2025 End: June 17, 2025 Team Status: Inactive Member Role/Relationship Status Dates Dr. Jorge Benavides MD Primary care physician Active Start: June 21, 2025 End: June 21, 2025 Dr. Jorge Benavides MD Referring Provider Active Start: June 21, 2025 End: June 21, 2025 Dr. Kymberly Leger MD Attending physician Active Start: June 21, 2025 End: June 21, 2025 Team Status: Active Member Role/Relationship Status Dates Dr. Jorge Benavides MD Primary care physician Active Start: June 22, 2025 Norma Vyas Attending physician Active Start: June 22, 2025 Team Status: Active Member Role/Relationship Status Dates Dr. Jorge Benavides MD Primary care physician Active Start: June 22, 2025 Razia Maxwell LIDAR SCIENTIST, LIDAR SCIENTIST-C Attending physician Active Start: June 22, 2025 Razia Maxwell LIDAR SCIENTIST, LIDAR SCIENTIST-C Referring Provider Active Start: June 22, 2025 Team Status: Active Member Role/Relationship Status Dates Dr. Jorge Benavides MD Primary care physician Active Start: June 29, 2025 JUSTIN Taveras Attending physician Active S tart: June 29, 2025 JUSTIN Taveras Referring Provider Active St art: June 29, 2025 Team Status: Inactive Member Role/Relationship Status Dates Dr. Jorge Benavides MD Primary care physician Active Start: June 22, 2025 End: June 22, 2025 Razia Maxwell LIDAR SCIENTIST, LIDAR SCIENTIST-C Attending physician Active Start: June 22, 2025 End: June 22, 2025 Razia Maxwell LIDAR SCIENTIST, LIDAR SCIENTIST-C Referring Provider Active Start: June 22, 2025 End: June 22, 2025 Team Status: Inactive Member Role/Relationship Status Dates Dr. Jorge Benavides MD Primary care physician Active Start: July 04, 2025 End: July 04, 2025 Dr. Berry Avitia MD Attending physician Active Start: July 04, 2025 End: July 04, 2025 Dr. Ros Nice DO Referring Provider Active Start: July 04, 2025 End: July 04, 2025 Team Status: Active Member Role/Relationship Status Dates Dr. Jorge Benavides MD Primary care physician Active Start: July 04, 2025 Dr. Berry Avitia MD Attending physician Active Start: July 04, 2025 Dr. Berry Avitia MD Referring Provider Active Start: July 04, 2025 Team Status: Inactive Member Role/Relationship Status Dates Dr. Jorge Benavides MD Primary care physician Active Start: June 29, 2025 End: June 29, 2025 JUSTIN Taveras Attending physician Active S tart: June 29, 2025 End: June 29, 2025 JUSTIN Taveras Referring Provider Active St art: June 29, 2025 End: June 29, 2025 Team Status: Inactive Member Role/Relationship Status Dates Dr. Jorge Benavides MD Primary care physician Active Start: July 07, 2025 End: July 08, 2025 Dr. Herve Melton DO Attending physician Active Start: July 07, 2025 End: July 08, 2025 Dr. Herve Melton DO Emergency Departme nt Physician Active Start: July 07, 2025 End: July 08, 2025 Team Status: Inactive Member Role/Relationship Status Dates Dr. Jorge Benavides MD Primary care physician Active Start: July 08, 2025 End: July 08, 2025 Dr. Jorge Benavides MD Referring Provider Active Start: July 08, 2025 End: July 08, 2025 JUSTIN Chan Attending physician Active S tart: July 08, 2025 End: July 08, 2025 Team Status: Inactive Member Role/Relationship Status Dates Dr. Jorge Benavides MD Primary care physician Active Start: July 11, 2025 End: July 11, 2025 Dr. Jorge Benavides MD Referring Provider Active Start: July 11, 2025 End: July 11, 2025 Dr. Berry Avitia MD Attending physician Active Start: July 11, 2025 End: July 11, 2025 Team Status: Inactive Member Role/Relationship Status Dates Dr. Jorge Benavides MD Primary care physician Active Start: July 13, 2025 End: July 13, 2025 Dr. Ros Nice DO Attending physician Active Start: July 13, 2025 End: July 13, 2025 Dr. Ros Nice DO Referring Provider Active Start: July 13, 2025 End: July 13, 2025 Team Status: Active Member Role/Relationship Status Dates Dr. Jorge Benavides MD Primary care physician Active Start: July 19, 2025 JUSTIN Chan Attending physician Active S tart: July 19, 2025 JUSTIN Chan Referring Provider Active St art: July 19, 2025 Team Status: Active Member Role/Relationship Status Dates Dr. Jorge Benavides MD Primary care physician Active Start: July 21, 2025 Dr. Berry Avitia MD Attending physician Active Start: July 21, 2025 Dr. Berry Avitia MD Referring Provider Active Start: July 21, 2025 Team Status: Active Member Role/Relationship Status Dates Dr. Jorge Benavides MD Primary care physician Active Start: July 21, 2025 Dr. Ros Nice DO Attending physician Active Start: July 21, 2025 Dr. Ros Nice DO Referring Provider Active Start: July 21, 2025 Goals (unrecognized section and content) Goals may be documented in a n alternate section No data available for this section No data available for this sectionGoals may be documented in an alternate sectionGoals may be documented in an alternate sectionGoals may be documented in an alternate sectionGoals may be documented in an alternate sectionGoals may be documented in an alternate sectionGoals may be documented in an alternate sectionGoals may be documented in an alternate sectionGoals may be documented in an alternate sectionGoals may be documented in an alternate sectionGoals may be documented in an alternate sectionGoals may be documented in an alternate sectionGoals may be documented in an alternate sectionGoals may be documented in an alternate sectionGoals may be documented in an alternate sectionGoals may be documented in an alternate sectionGoals may be documented in an alternate sectionGoals may be documented in an alternate sectionGoals may be documented in an alternate sectionGoals may be documented in an alternate sectionGoals may be documented in an alternate sectionGoals may be documented in an alternate sectionGoals may be documented in an alternate sectionGoals may be documented in an alternate sectionGoals may be documented in an alternate sectionGoals may be documented in an alternate sectionGoals may be documented in an alternate sectionGoals may be documented in an alternate sectionGoals may be documented in an alternate sectionGoals may be documented in an alternate sectionGoals may be documented in an alternate sectionGoals may be documented in an alternate sectionGoals may be documented in an alternate sectionGoals may be documented in an alternate sectionGoals may be documented in an alternate sectionGoals may be documented in an alternate sectionGoals may be documented in an alternate sectionGoals may be documented in an alternate sectionGoals may be documented in an alternate sectionGoals may be documented in an alternate sectionGoals may be documented in an alternate sectionGoals may be documented in an alternate sectionGoals may be documented in an alternate sectionGoals may be documented in an alternate sectionGoals may be documented in an alternate sectionGoals may be documented in an alternate sectionGoals may be documented in an alternate sectionGoals may be documented in an alternate section Source Comments (unrecognize d section and content) In the event this informatio n is protected by the Federal Confidentiality of Alcohol and Drug Abuse Patient Records regulations: The Federal rules restrict any use of the information to criminally investigate or prosecute any alcohol or drug abuse patient.[facility], [place]In the event this information is protected by the Federal Confidentiality of Alcohol and Drug Abuse Patient Records regulations: The Federal rules restrict any use of the information to criminally investigate or prosecute any alcohol or drug abuse patient.[facility], [place]In the event this information is protected by the Federal Confidentiality of Alcohol and Drug Abuse Patient Records regulations: The Federal rules restrict any use of the information to criminally investigate or prosecute any alcohol or drug abuse patient.[facility], [place]In the event this information is protected by the Federal Confidentiality of Alcohol and Drug Abuse Patient Records regulations: The Federal rules restrict any use of the information to criminally investigate or prosecute any alcohol or drug abuse patient.[facility], [place]In the event this information is protected by the Federal Confidentiality of Alcohol and Drug Abuse Patient Records regulations: The Federal rules restrict any use of the information to criminally investigate or prosecute any alcohol or drug abuse patient.[facility], [place]In the event this information is protected by the Federal Confidentiality of Alcohol and Drug Abuse Patient Records regulations: The Federal rules restrict any use of the information to criminally investigate or prosecute any alcohol or drug abuse patient.[facility], [place]In the event this information is protected by the Federal Confidentiality of Alcohol and Drug Abuse Patient Records regulations: The Federal rules restrict any use of the information to criminally investigate or prosecute any alcohol or drug abuse patient.[facility], [place]In the event this information is protected by the Federal Confidentiality of Alcohol and Drug Abuse Patient Records regulations: The Federal rules restrict any use of the information to criminally investigate or prosecute any alcohol or drug abuse patient.[facility], [place]In the event this information is protected by the Federal Confidentiality of Alcohol and Drug Abuse Patient Records regulations: The Federal rules restrict any use of the information to criminally investigate or prosecute any alcohol or drug abuse patient.[facility], [place]In the event this information is protected by the Federal Confidentiality of Alcohol and Drug Abuse Patient Records regulations: The Federal rules restrict any use of the information to criminally investigate or prosecute any alcohol or drug abuse patient.[facility], [place]In the event this information is protected by the Federal Confidentiality of Alcohol and Drug Abuse Patient Records regulations: The Federal rules restrict any use of the information to criminally investigate or prosecute any alcohol or drug abuse patient.[facility], [place]In the event this information is protected by the Federal Confidentiality of Alcohol and Drug Abuse Patient Records regulations: The Federal rules restrict any use of the information to criminally investigate or prosecute any alcohol or drug abuse patient.[facility], [place]In the event this information is protected by the Federal Confidentiality of Alcohol and Drug Abuse Patient Records regulations: The Federal rules restrict any use of the information to criminally investigate or prosecute any alcohol or drug abuse patient.[facility], [place]In the event this information is protected by the Federal Confidentiality of Alcohol and Drug Abuse Patient Records regulations: The Federal rules restrict any use of the information to criminally investigate or prosecute any alcohol or drug abuse patient.[facility], [place]In the event this information is protected by the Federal Confidentiality of Alcohol and Drug Abuse Patient Records regulations: The Federal rules restrict any use of the information to criminally investigate or prosecute any alcohol or drug abuse patient.[facility], [place]In the event this information is protected by the Federal Confidentiality of Alcohol and Drug Abuse Patient Records regulations: The Federal rules restrict any use of the information to criminally investigate or prosecute any alcohol or drug abuse patient.[facility], [place]In the event this information is protected by the Federal Confidentiality of Alcohol and Drug Abuse Patient Records regulations: The Federal rules restrict any use of the information to criminally investigate or prosecute any alcohol or drug abuse patient.[facility], [place]In the event this information is protected by the Federal Confidentiality of Alcohol and Drug Abuse Patient Records regulations: The Federal rules restrict any use of the information to criminally investigate or prosecute any alcohol or drug abuse patient.[facility], [place]In the event this information is protected by the Federal Confidentiality of Alcohol and Drug Abuse Patient Records regulations: The Federal rules restrict any use of the information to criminally investigate or prosecute any alcohol or drug abuse patient.[facility], [place]In the event this information is protected by the Federal Confidentiality of Alcohol and Drug Abuse Patient Records regulations: The Federal rules restrict any use of the information to criminally investigate or prosecute any alcohol or drug abuse patient.[facility], [place]In the event this information is protected by the Federal Confidentiality of Alcohol and Drug Abuse Patient Records regulations: The Federal rules restrict any use of the information to criminally investigate or prosecute any alcohol or drug abuse patient.[facility], [place]In the event this information is protected by the Federal Confidentiality of Alcohol and Drug Abuse Patient Records regulations: The Federal rules restrict any use of the information to criminally investigate or prosecute any alcohol or drug abuse patient.[facility], [place]In the event this information is protected by the Federal Confidentiality of Alcohol and Drug Abuse Patient Records regulations: The Federal rules restrict any use of the information to criminally investigate or prosecute any alcohol or drug abuse patient.[facility], [place]In the event this information is protected by the Federal Confidentiality of Alcohol and Drug Abuse Patient Records regulations: The Federal rules restrict any use of the information to criminally investigate or prosecute any alcohol or drug abuse patient.[facility], [place]In the event this information is protected by the Federal Confidentiality of Alcohol and Drug Abuse Patient Records regulations: The Federal rules restrict any use of the information to criminally investigate or prosecute any alcohol or drug abuse patient.[facility], [place]In the event this information is protected by the Federal Confidentiality of Alcohol and Drug Abuse Patient Records regulations: The Federal rules restrict any use of the information to criminally investigate or prosecute any alcohol or drug abuse patient.[facility], [place]In the event this information is protected by the Federal Confidentiality of Alcohol and Drug Abuse Patient Records regulations: The Federal rules restrict any use of the information to criminally investigate or prosecute any alcohol or drug abuse patient.[facility], [place]In the event this information is protected by the Federal Confidentiality of Alcohol and Drug Abuse Patient Records regulations: The Federal rules restrict any use of the information to criminally investigate or prosecute any alcohol or drug abuse patient.[facility], [place]In the event this information is protected by the Federal Confidentiality of Alcohol and Drug Abuse Patient Records regulations: The Federal rules restrict any use of the information to criminally investigate or prosecute any alcohol or drug abuse patient.[facility], [place]In the event this information is protected by the Federal Confidentiality of Alcohol and Drug Abuse Patient Records regulations: The Federal rules restrict any use of the information to criminally investigate or prosecute any alcohol or drug abuse patient.[facility], [place]In the event this information is protected by the Federal Confidentiality of Alcohol and Drug Abuse Patient Records regulations: The Federal rules restrict any use of the information to criminally investigate or prosecute any alcohol or drug abuse patient.[facility], [place]In the event this information is protected by the Federal Confidentiality of Alcohol and Drug Abuse Patient Records regulations: The Federal rules restrict any use of the information to criminally investigate or prosecute any alcohol or drug abuse patient.[facility], [place]In the event this information is protected by the Federal Confidentiality of Alcohol and Drug Abuse Patient Records regulations: The Federal rules restrict any use of the information to criminally investigate or prosecute any alcohol or drug abuse patient.[facility], [place]In the event this information is protected by the Federal Confidentiality of Alcohol and Drug Abuse Patient Records regulations: The Federal rules restrict any use of the information to criminally investigate or prosecute any alcohol or drug abuse patient.[facility], [place]In the event this information is protected by the Federal Confidentiality of Alcohol and Drug Abuse Patient Records regulations: The Federal rules restrict any use of the information to criminally investigate or prosecute any alcohol or drug abuse patient.[facility], [place]In the event this information is protected by the Federal Confidentiality of Alcohol and Drug Abuse Patient Records regulations: The Federal rules restrict any use of the information to criminally investigate or prosecute any alcohol or drug abuse patient.[facility], [place]In the event this information is protected by the Federal Confidentiality of Alcohol and Drug Abuse Patient Records regulations: The Federal rules restrict any use of the information to criminally investigate or prosecute any alcohol or drug abuse patient.[facility], [place]In the event this information is protected by the Federal Confidentiality of Alcohol and Drug Abuse Patient Records regulations: The Federal rules restrict any use of the information to criminally investigate or prosecute any alcohol or drug abuse patient.[facility], [place]In the event this information is protected by the Federal Confidentiality of Alcohol and Drug Abuse Patient Records regulations: The Federal rules restrict any use of the information to criminally investigate or prosecute any alcohol or drug abuse patient.[facility], [place]In the event this information is protected by the Federal Confidentiality of Alcohol and Drug Abuse Patient Records regulations: The Federal rules restrict any use of the information to criminally investigate or prosecute any alcohol or drug abuse patient.[facility], [place]In the event this information is protected by the Federal Confidentiality of Alcohol and Drug Abuse Patient Records regulations: The Federal rules restrict any use of the information to criminally investigate or prosecute any alcohol or drug abuse patient.[facility], [place]In the event this information is protected by the Federal Confidentiality of Alcohol and Drug Abuse Patient Records regulations: The Federal rules restrict any use of the information to criminally investigate or prosecute any alcohol or drug abuse patient.[facility], [place]In the event this information is protected by the Federal Confidentiality of Alcohol and Drug Abuse Patient Records regulations: The Federal rules restrict any use of the information to criminally investigate or prosecute any alcohol or drug abuse patient.[facility], [place]In the event this information is protected by the Federal Confidentiality of Alcohol and Drug Abuse Patient Records regulations: The Federal rules restrict any use of the information to criminally investigate or prosecute any alcohol or drug abuse patient.[facility], [place]In the event this information is protected by the Federal Confidentiality of Alcohol and Drug Abuse Patient Records regulations: The Federal rules restrict any use of the information to criminally investigate or prosecute any alcohol or drug abuse patient.[facility], [place]In the event this information is protected by the Federal Confidentiality of Alcohol and Drug Abuse Patient Records regulations: The Federal rules restrict any use of the information to criminally investigate or prosecute any alcohol or drug abuse patient.[facility], [place]In the event this information is protected by the Federal Confidentiality of Alcohol and Drug Abuse Patient Records regulations: The Federal rules restrict any use of the information to criminally investigate or prosecute any alcohol or drug abuse patient.[facility], [place]In the event this information is protected by the Federal Confidentiality of Alcohol and Drug Abuse Patient Records regulations: The Federal rules restrict any use of the information to criminally investigate or prosecute any alcohol or drug abuse patient.[facility], [place]In the event this information is protected by the Federal Confidentiality of Alcohol and Drug Abuse Patient Records regulations: The Federal rules restrict any use of the information to criminally investigate or prosecute any alcohol or drug abuse patient.[facility], [place]In the event this information is protected by the Federal Confidentiality of Alcohol and Drug Abuse Patient Records regulations: The Federal rules restrict any use of the information to criminally investigate or prosecute any alcohol or drug abuse patient.[facility], [place]In the event this information is protected by the Federal Confidentiality of Alcohol and Drug Abuse Patient Records regulations: The Federal rules restrict any use of the information to criminally investigate or prosecute any alcohol or drug abuse patient.[facility], [place]In the event this information is protected by the Federal Confidentiality of Alcohol and Drug Abuse Patient Records regulations: The Federal rules restrict any use of the information to criminally investigate or prosecute any alcohol or drug abuse patient.[facility], [place]In the event this information is protected by the Federal Confidentiality of Alcohol and Drug Abuse Patient Records regulations: The Federal rules restrict any use of the information to criminally investigate or prosecute any alcohol or drug abuse patient.[facility], [place]In the event this information is protected by the Federal Confidentiality of Alcohol and Drug Abuse Patient Records regulations: The Federal rules restrict any use of the information to criminally investigate or prosecute any alcohol or drug abuse patient.[facility], [place]In the event this information is protected by the Federal Confidentiality of Alcohol and Drug Abuse Patient Records regulations: The Federal rules restrict any use of the information to criminally investigate or prosecute any alcohol or drug abuse patient.[facility], [place]In the event this information is protected by the Federal Confidentiality of Alcohol and Drug Abuse Patient Records regulations: The Federal rules restrict any use of the information to criminally investigate or prosecute any alcohol or drug abuse patient.[facility], [place]In the event this information is protected by the Federal Confidentiality of Alcohol and Drug Abuse Patient Records regulations: The Federal rules restrict any use of the information to criminally investigate or prosecute any alcohol or drug abuse patient.[facility], [place]In the event this information is protected by the Federal Confidentiality of Alcohol and Drug Abuse Patient Records regulations: The Federal rules restrict any use of the information to criminally investigate or prosecute any alcohol or drug abuse patient.[facility], [place]In the event this information is protected by the Federal Confidentiality of Alcohol and Drug Abuse Patient Records regulations: The Federal rules restrict any use of the information to criminally investigate or prosecute any alcohol or drug abuse patient.[facility], [place]In the event this information is protected by the Federal Confidentiality of Alcohol and Drug Abuse Patient Records regulations: The Federal rules restrict any use of the information to criminally investigate or prosecute any alcohol or drug abuse patient.[facility], [place]In the event this information is protected by the Federal Confidentiality of Alcohol and Drug Abuse Patient Records regulations: The Federal rules restrict any use of the information to criminally investigate or prosecute any alcohol or drug abuse patient.[facility], [place]In the event this information is protected by the Federal Confidentiality of Alcohol and Drug Abuse Patient Records regulations: The Federal rules restrict any use of the information to criminally investigate or prosecute any alcohol or drug abuse patient.[facility], [place]In the event this information is protected by the Federal Confidentiality of Alcohol and Drug Abuse Patient Records regulations: The Federal rules restrict any use of the information to criminally investigate or prosecute any alcohol or drug abuse patient.[facility], [place]In the event this information is protected by the Federal Confidentiality of Alcohol and Drug Abuse Patient Records regulations: The Federal rules restrict any use of the information to criminally investigate or prosecute any alcohol or drug abuse patient.[facility], [place]In the event this information is protected by the Federal Confidentiality of Alcohol and Drug Abuse Patient Records regulations: The Federal rules restrict any use of the information to criminally investigate or prosecute any alcohol or drug abuse patient.[facility], [place]In the event this information is protected by the Federal Confidentiality of Alcohol and Drug Abuse Patient Records regulations: The Federal rules restrict any use of the information to criminally investigate or prosecute any alcohol or drug abuse patient.[facility], [place]In the event this information is protected by the Federal Confidentiality of Alcohol and Drug Abuse Patient Records regulations: The Federal rules restrict any use of the information to criminally investigate or prosecute any alcohol or drug abuse patient.[facility], [place]In the event this information is protected by the Federal Confidentiality of Alcohol and Drug Abuse Patient Records regulations: The Federal rules restrict any use of the information to criminally investigate or prosecute any alcohol or drug abuse patient.[facility], [place]In the event this information is protected by the Federal Confidentiality of Alcohol and Drug Abuse Patient Records regulations: The Federal rules restrict any use of the information to criminally investigate or prosecute any alcohol or drug abuse patient.[facility], [place]In the event this information is protected by the Federal Confidentiality of Alcohol and Drug Abuse Patient Records regulations: The Federal rules restrict any use of the information to criminally investigate or prosecute any alcohol or drug abuse patient.[facility], BeachwoodIn the event this information is protected by the Federal Confidentiality of Alcohol and Drug Abuse Patient Records regulations: The Federal rules restrict any use of the information to criminally investigate or prosecute any alcohol or drug abuse patient.[facility], [place]woodIn the event this information is protected by the Federal Confidentiality of Alcohol and Drug Abuse Patient Records regulations: The Federal rules restrict any use of the information to criminally investigate or prosecute any alcohol or drug abuse patient.[facility], [place]woodIn the event this information is protected by the Federal Confidentiality of Alcohol and Drug Abuse Patient Records regulations: The Federal rules restrict any use of the information to criminally investigate or prosecute any alcohol or drug abuse patient.[facility], [place]woodIn the event this information is protected by the Federal Confidentiality of Alcohol and Drug Abuse Patient Records regulations: The Federal rules restrict any use of the information to criminally investigate or prosecute any alcohol or drug abuse patient.[facility], [place]woodIn the event this information is protected by the Federal Confidentiality of Alcohol and Drug Abuse Patient Records regulations: The Federal rules restrict any use of the information to criminally investigate or prosecute any alcohol or drug abuse patient.[facility], [place]woodIn the event this information is protected by the Federal Confidentiality of Alcohol and Drug Abuse Patient Records regulations: The Federal rules restrict any use of the information to criminally investigate or prosecute any alcohol or drug abuse patient.[facility], [place]woodIn the event this information is protected by the Federal Confidentiality of Alcohol and Drug Abuse Patient Records regulations: The Federal rules restrict any use of the information to criminally investigate or prosecute any alcohol or drug abuse patient.[facility], [place]woodIn the event this information is protected by the Federal Confidentiality of Alcohol and Drug Abuse Patient Records regulations: The Federal rules restrict any use of the information to criminally investigate or prosecute any alcohol or drug abuse patient.[facility], [place]woodIn the event this information is protected by the Federal Confidentiality of Alcohol and Drug Abuse Patient Records regulations: The Federal rules restrict any use of the information to criminally investigate or prosecute any alcohol or drug abuse patient.[facility], [place]woodIn the event this information is protected by the Federal Confidentiality of Alcohol and Drug Abuse Patient Records regulations: The Federal rules restrict any use of the information to criminally investigate or prosecute any alcohol or drug abuse patient.[facility], [place]woodIn the event this information is protected by the Federal Confidentiality of Alcohol and Drug Abuse Patient Records regulations: The Federal rules restrict any use of the information to criminally investigate or prosecute any alcohol or drug abuse patient.[facility], [place]woodIn the event this information is protected by the Federal Confidentiality of Alcohol and Drug Abuse Patient Records regulations: The Federal rules restrict any use of the information to criminally investigate or prosecute any alcohol or drug abuse patient.[facility], [place]woodIn the event this information is protected by the Federal Confidentiality of Alcohol and Drug Abuse Patient Records regulations: The Federal rules restrict any use of the information to criminally investigate or prosecute any alcohol or drug abuse patient.[facility], [place]woodIn the event this information is protected by the Federal Confidentiality of Alcohol and Drug Abuse Patient Records regulations: The Federal rules restrict any use of the information to criminally investigate or prosecute any alcohol or drug abuse patient.[facility], [place]woodIn the event this information is protected by the Federal Confidentiality of Alcohol and Drug Abuse Patient Records regulations: The Federal rules restrict any use of the information to criminally investigate or prosecute any alcohol or drug abuse patient.[facility], [place]woodIn the event this information is protected by the Federal Confidentiality of Alcohol and Drug Abuse Patient Records regulations: The Federal rules restrict any use of the information to criminally investigate or prosecute any alcohol or drug abuse patient.[facility], [place]woodIn the event this information is protected by the Federal Confidentiality of Alcohol and Drug Abuse Patient Records regulations: The Federal rules restrict any use of the information to criminally investigate or prosecute any alcohol or drug abuse patient.[facility], [place]woodIn the event this information is protected by the Federal Confidentiality of Alcohol and Drug Abuse Patient Records regulations: The Federal rules restrict any use of the information to criminally investigate or prosecute any alcohol or drug abuse patient.[facility], [place]woodIn the event this information is protected by the Federal Confidentiality of Alcohol and Drug Abuse Patient Records regulations: The Federal rules restrict any use of the information to criminally investigate or prosecute any alcohol or drug abuse patient.[facility], [place]woodIn the event this information is protected by the Federal Confidentiality of Alcohol and Drug Abuse Patient Records regulations: The Federal rules restrict any use of the information to criminally investigate or prosecute any alcohol or drug abuse patient.[facility], [place]woodIn the event this information is protected by the Federal Confidentiality of Alcohol and Drug Abuse Patient Records regulations: The Federal rules restrict any use of the information to criminally investigate or prosecute any alcohol or drug abuse patient.[facility], [place]woodIn the event this information is protected by the Federal Confidentiality of Alcohol and Drug Abuse Patient Records regulations: The Federal rules restrict any use of the information to criminally investigate or prosecute any alcohol or drug abuse patient.[facility], [place]woodIn the event this information is protected by the Federal Confidentiality of Alcohol and Drug Abuse Patient Records regulations: The Federal rules restrict any use of the information to criminally investigate or prosecute any alcohol or drug abuse patient.[facility], [place]woodIn the event this information is protected by the Federal Confidentiality of Alcohol and Drug Abuse Patient Records regulations: The Federal rules restrict any use of the information to criminally investigate or prosecute any alcohol or drug abuse patient.[facility], [place]woodIn the event this information is protected by the Federal Confidentiality of Alcohol and Drug Abuse Patient Records regulations: The Federal rules restrict any use of the information to criminally investigate or prosecute any alcohol or drug abuse patient.[facility], [place]woodIn the event this information is protected by the Federal Confidentiality of Alcohol and Drug Abuse Patient Records regulations: The Federal rules restrict any use of the information to criminally investigate or prosecute any alcohol or drug abuse patient.[facility], [place]woodIn the event this information is protected by the Federal Confidentiality of Alcohol and Drug Abuse Patient Records regulations: The Federal rules restrict any use of the information to criminally investigate or prosecute any alcohol or drug abuse patient.[facility], [place]woodIn the event this information is protected by the Federal Confidentiality of Alcohol and Drug Abuse Patient Records regulations: The Federal rules restrict any use of the information to criminally investigate or prosecute any alcohol or drug abuse patient.[facility], [place]woodIn the event this information is protected by the Federal Confidentiality of Alcohol and Drug Abuse Patient Records regulations: The Federal rules restrict any use of the information to criminally investigate or prosecute any alcohol or drug abuse patient.[facility], [place]woodIn the event this information is protected by the Federal Confidentiality of Alcohol and Drug Abuse Patient Records regulations: The Federal rules restrict any use of the information to criminally investigate or prosecute any alcohol or drug abuse patient.[facility], [place]woodIn the event this information is protected by the Federal Confidentiality of Alcohol and Drug Abuse Patient Records regulations: The Federal rules restrict any use of the information to criminally investigate or prosecute any alcohol or drug abuse patient.[facility], [place]woodIn the event this information is protected by the Federal Confidentiality of Alcohol and Drug Abuse Patient Records regulations: The Federal rules restrict any use of the information to criminally investigate or prosecute any alcohol or drug abuse patient.[facility], [place]woodIn the event this information is protected by the Federal Confidentiality of Alcohol and Drug Abuse Patient Records regulations: The Federal rules restrict any use of the information to criminally investigate or prosecute any alcohol or drug abuse patient.[facility], [place]woodIn the event this information is protected by the Federal Confidentiality of Alcohol and Drug Abuse Patient Records regulations: The Federal rules restrict any use of the information to criminally investigate or prosecute any alcohol or drug abuse patient.[facility], [place]woodIn the event this information is protected by the Federal Confidentiality of Alcohol and Drug Abuse Patient Records regulations: The Federal rules restrict any use of the information to criminally investigate or prosecute any alcohol or drug abuse patient.[facility], [place]woodIn the event this information is protected by the Federal Confidentiality of Alcohol and Drug Abuse Patient Records regulations: The Federal rules restrict any use of the information to criminally investigate or prosecute any alcohol or drug abuse patient.[facility], [place]woodIn the event this information is protected by the Federal Confidentiality of Alcohol and Drug Abuse Patient Records regulations: The Federal rules restrict any use of the information to criminally investigate or prosecute any alcohol or drug abuse patient.[facility] [place] Reason for Visit (unrecogniz ed section and content) Reason Comments Radiology NM Specialty Diagnoses / Procedures Referred By Contac t Referred To Contact MOLECULAR & FUNCTIONAL IMAGING Diagnoses SOB (shortness of breath) H/O pericarditis Chest pain, unspecified type Essential (primary) hypertension Back pain, unspecified back location, unspecified back pain laterality, unspecified chronicity Procedures NM CARDIAC PERF STRESS/PHARM MYOCARDIAL SPECT MULTIPLE STUDIES Garth Hoffman MD [address] [place] [address] Molecular [facility] Functional [facility] [address] [place] [address] Referral ID Status Reason Start Date Expiration Date V isits Requested Visits Authorized [id number] Closed Auto-Generate d Referral 12/12/2021 01/11/2023 1 1 Reason Comments Post Dc Program Call - Needs Attn Reason Comments Results Reason Comments Derm Problem dog scratch on left forearm x 6 days Reason Comments Refill Request Reason Comments Results, Lab Reason Comments Radiology MRI Specialty Diagnoses / Procedures [facility] To Contact MR IMAGING Diagnoses SOB (shortness of breath) H/O pericarditis Chest pain, unspecified type Essential (primary) hypertension Back pain, unspecified back location, unspecified back pain laterality, unspecified chronicity Pericarditis in diseases classified elsewhere Procedures MRI CARDIAC MORPH FUNC WO/W IVCON CARDIAC MRI W/WO CONTRAST & FURTHER SEQ Garth Hoffman MD [address] [place] [address] Mr Imaging Referral ID Status Reason Start Date Expiration Date V isits Requested Visits Authorized [id number] Closed Auto-Generate d Referral 10/08/2022 01/11/2023 1 1 Reason Comments IV Medication Administration definity Specialty Diagnoses / Procedures [facility] To [facility] Diagnoses SOB (shortness of breath) H/O pericarditis Chest pain, unspecified type Essential (primary) hypertension Back pain, unspecified back location, unspecified back pain laterality, unspecified chronicity Procedures ECHO ECHO TTHRC R-T 2D W/WOM-MODE COMPL SPEC&COLR D Garth Hoffman MD [address] [place] [address] [facility] [place] [address] [place] [address] Referral ID Status Reason Start Date Expiration Date V isits Requested Visits Authorized [id number] Closed Auto-Generate d Referral 12/12/2021 12/12/2022 1 1 Reason Comments CARD New Patient Consult Hypertension Reason Comments Urinary Problem frequency and retent ion x couple days Reason Comments Patient Question office summary note Reason Comments Received Outside Medical Records Reason Comments Patient Update Aspirin script locat ion Reason Comments Follow Up Phone Call RC f/u 1st attempt Reason Onset Date Comments Transition Of Care 02/05/2023 Pharmacy TCM- Hospital discharge 02/04/23 Reason Comments Returning Patient's Call Reason Comments Recheck Reason Comments Results - Mri Reason Comments Atrial Fibrillation Permanent Pacemaker Reason Comments Patient Question Patient is calling. She is following up on if she should be starting Eliquis. She also wanted to know if she could do her pacemaker checks at either [facility] or [facility], would they be sent to Dr. Gregory. Please call [phone] Reason Comments Patient Update Reason Comments Breathing Problem Reason Comments Follow Up Reason Comments Medication Problem Reason Comments TAVR Team meeting Reason Onset Date Comments Refill Request 01/07/2024 Reason Onset Date Comments Refill Request 01/09/2024 Reason Comments Leg Edema Breathing Problem Reason Comments Schedule TAVR Reason Comments structural dental clearance Reason Comments Valvular Heart Disease Reason Comments Radio Main J1 Specialty Diagnoses / Procedures Referred By Alejandrina cerna Referred To Contact Procedures CARDIOVASCULAR MEDICINE OP FOLLOW UP APPT ORDER Lesli Shaver, WINDER FIXER.REFINERY PIPELINE OPERATOR [address] [place] [address] Referral ID Status Reason Start Date Expiration Date Visits Requested Visits Authorized [id number] Ref Not Required PCP Requested Referral 02/17/2024 11/18/2024 1 1 Reason Comments Follow Up Room 9Still SOBStill dizzy tying shoes, unloading dishwasherExhausted a lot - like when cookingTop of posterior shoulders burn when cookingExhaustion dressing and bathingAortic Valve Replacement 02/09/24eart Cath [facility] Heart Valve cardAsking if Eliquis if not for patients with artificial heart valves or kidney problems.(Per her paperwork)Insurance denies OImesartan combination medication Reason Comments Patient Education Reason Comments Bleeding/Bruising Bruising on bilat si margy of forearm from blood draws, areas have dark bruising and lumps and swelling in arm x 13 days Reason Comments Fluorsocopy education Reason Comments Patient Question Reason Comments Patient Question Returning Patient's Call Reason Comments Follow Up Still having some so b since valve replacement in january Reason Comments Appointment Reason Comments Follow Up Reason Comments Results potassium Reason Comments Results High Critical Lab Reason Comments Follow Up Not consistently nina ing imdur Taking atorvastatin 20 mg once daily Swelling in feet and ankles since last week Reason Comments Follow Up High blood pressure Specialty Diagnoses / Procedures Referred By Alejandrina t Referred To Contact [facility] [place] Procedures CARDIOVASCULAR MEDICINE OP FOLLOW UP APPT ORDER Domenic Serrano APRN.REFINERY PIPELINE OPERATOR [address] [place] [address] Phone: tel: fax: [facility] [address] [place] [address] Referral ID Status Reason Start Date Expiration Date V isits Requested Visits Authorized [id number] Closed PCP Requested Referral 02/07/2025 11/10/2025 1 1 Reason Comments CARD Follow Up 3 Month Shortness of Breath Has worsened since l ast visit Reason Onset Date Comments Refill Request 06/02/2025 Care Team (unrecognized sect ion and content) Care Team Personnel Name: NORIS YOUNGBLOOD MD Member Role: Primary Care Physician Address: Address: [address] [place] [id number] Care Team Related Persons Name: BETO ANGULO Address: Home [address] [place] [address] Name: RAPHAEL FLOYD Address: [address] [place] [address] Name: BETO FLOYD Address: Home [address] [place] [address] FOR RECORDS PERTAINING TO PATIENTS WHO ARE OR HAVE BEEN ENROLLED IN A CHEMICAL DEPENDENCY/SUBSTANCEABUSE PROGRAM, SOME INFORMATION MAY BE OMITTED. This clinical summary was aggregated from multiple sources. Caution should be exercised in using it in the provision of clinical care. This summary normalizes information from multiple sources, and as a consequence, information in this document may materially change the coding, format and clinical context of patient data. In addition, data may be omitted in some cases. CLINICAL DECISIONS SHOULD BE BASED ON THE PRIMARY CLINICAL RECORDS. [facility]. provides no warranty or guarantee of the accuracy or completeness of information in this document.
[2025-09-28 08:02] VITALS: BP 120/76; PULSE 54; RESP 16; O2SAT 94
[2025-09-28 08:33] LABS: Troponin T High Sens 2 HR 25 ng/L (<=14)
[2025-09-28 09:27] VITALS: O2SAT 94
[2025-09-28 10:00] VITALS: BP 124/78; PULSE 56; RESP 18; O2SAT 95
--- NOTE | 2025-09-28 12:17 | CM.ED ---
Social work Reason for referral: home health Referral source: Dr Olga LIM entered patient's room, introducing self and role at [facility]. Patient was laying flat in bed with patient's , Tayo, at bedside. Patient stated needing more help at home due to patient's continual health decline. SW inquired about admission due to patient's reported unsteady walking (this was by patient's RN when ambulating). Tayo stated this was due to patient not eating all morning; patient clarified that patient has been more unsteady recently even when patient has had nutrition. Tayo and patient denied doctor's offer of admission due to it just being therapy. SW clarified reasons for admission and encouraged patient to consider patient's safety. Patient stated becoming short of breath in walking from bedroom to the living room, but patient does not qualify for home oxygen on at this time. Patient confirmed having a walker at home despite never using it and patient stated using the handrail to pull myself up the 6 steps to get to patient's main level; patient lives in a bi-level home. Patient stated wanting to try HHC prior to wanting admission to acute. A list of HHC?providers including quality and resource use data and consistent with the patient's preferred geographic region, medical needs, and insurance network was created in [employer] Guide. This list was provided to the patient and patient chose [facility]. 1100: CARINA called [facility] Celine RN ([phone]) and left a VM requesting HHC for the patient. When CARINA called again at 1130, Celine stated reviewing patient's chart now. At 1200, Celine called back stating ability to accept patient if patient was willing to wait for SOC on Friday10/04/25. CARINA entered patient's room again and expressed [facility] could start HHC on Friday; patient accepted. CARINA entered the CM consult after a verbal order from Dr Espinoza. Dr Espinoza updated. No further needs identified at this time. Dafne Mcpherson, MOBILE HOMES REPAIRER, HOME HEALTH CARE SOCIAL WORKER
[2025-09-28 13:15] VITALS: BP 107/74; PULSE 56; RESP 16; O2SAT 97
[2025-09-28 13:18] VITALS: BP 107/74; PULSE 56; RESP 16; TEMP 36.3; O2SAT 97
== END 2025-09-28 13:22 | disposition home or self-care (01) ==
PROVIDERS: Emergency Provider Student in an Organized Health Care Education/Training Program; PCP Internal Medicine; Visit Provider Student in an Organized Health Care Education/Training Program
DX: R60.0 Localized edema (principal); N18.4 Chronic kidney disease, stage 4 (severe); E11.22 Type 2 diabetes mellitus with diabetic chronic kidney disease; R06.02 Shortness of breath; I12.9 Hypertensive chronic kidney disease with stage 1 through stage 4 chronic kidney disease, or unspecified chronic kidney disease; D64.9 Anemia, unspecified; Z79.02 Long term (current) use of antithrombotics/antiplatelets; Z79.01 Long term (current) use of anticoagulants; Z79.84 Long term (current) use of oral hypoglycemic drugs
CPT/HCPCS: 71046; 80053; 82962; 83880; 84443; 84484; 85025; 93005; 96374; 99284; A4216; J1938